=== PATIENT | female | born 1960 | race Caucasian/White ===

== ENCOUNTER 2018-03-11 09:32 | Outpatient (REF) | payer OTHER, SELFPAY ==
[2018-03-11 19:38] LABS: HCT 39.4 % (36.0-46.0); Mean Corpuscular Hemoglobin 29.5 pg (27.0-33.0); Mean Corpuscular Volume 89.3 fL (80-95); Mean Platelet Volume 11.4 fL (8.0-11.0); Platelet Count 251 x1000/uL (130-400); RBC 4.41 m/cumm (4.00-5.20); RBC Distribution Width 12.6 % (11.7-14.6); White Blood Cell Count 6.99 k/cumm (4.4-10.8)
[2018-03-11 19:42] LABS: Amylase 105 U/L (25-115); Anion Gap 6.1 mmol/L (3-11); BUN 16 mg/dL (7-18); CO2 29.9 mmol/L (21.0-32.0); CREATININE 1.17 mg/dL (0.55-1.02); Calcium 9.1 mg/dL (8.5-10.1); Chloride 104 mmol/L (98-107); Estimated GFR 47.18 (mL/min/1.73m2); Glucose 84 mg/dL (70-100); Lipase 329 U/L (73-393); Potassium 4.4 mmol/L (3.5-5.1); Sodium 140 mmol/L (136-145)
== END 2018-03-11 09:52 ==
LOC: NCHCN 09:32
PROVIDERS: PCP Internal Medicine; Visit Provider Nurse Practitioner Family
DX: R10.84 Generalized abdominal pain (principal)
CPT/HCPCS: 80048; 83690; 85027; 82150

== ENCOUNTER 2018-03-12 08:48 | Outpatient (REF) | payer OTHER, SELFPAY ==
[2018-03-14 13:39] LABS: Helicobacter pylori Ag, Feces Negative (NEGAT)
== END 2018-03-12 09:08 ==
LOC: NCHCN 08:48
PROVIDERS: PCP Internal Medicine; Visit Provider Nurse Practitioner Family
DX: R10.84 Generalized abdominal pain (principal)
CPT/HCPCS: 87338

== ENCOUNTER 2019-02-19 18:15 | Outpatient (REF) | payer OTHER, SELFPAY ==
[2019-02-19 20:47] LABS: Anion Gap 8.5 mmol/L (3-11); BUN 19 mg/dL (7-18); CO2 27.5 mmol/L (21.0-32.0); CREATININE 1.22 mg/dL (0.55-1.02); Calcium 9.5 mg/dL (8.5-10.1); Chloride 104 mmol/L (98-107); Estimated GFR 44.96 (mL/min/1.73m2); Glucose 100 mg/dL (70-100); Potassium 4.4 mmol/L (3.5-5.1); Sodium 140 mmol/L (136-145); TSH 1.98 uIU/mL (0.36-3.74)
== END 2019-02-19 18:35 ==
LOC: NCHCN 18:15
PROVIDERS: PCP Internal Medicine; Visit Provider Internal Medicine
DX: Z00.00 Encounter for general adult medical examination without abnormal findings (principal); Z13.228 Encounter for screening for other metabolic disorders; Z13.29 Encounter for screening for other suspected endocrine disorder
CPT/HCPCS: 80048; 84443

== ENCOUNTER 2020-02-24 16:12 | Outpatient (REF) | payer OTHER, SELFPAY ==
[2020-02-24 19:28] LABS: HCT 41.8 % (36.0-46.0); HGB 13.9 g/dL (11.2-15.7); MCH 29.4 pg (27.0-33.0); MCHC 33.3 % (32.0-36.0); MCV 88.4 fL (80-95); MPV 11.2 fL (8.0-11.0); Platelet Count 234 10^3/uL (130-400); RBC 4.73 10^6/uL (3.93-5.22); RDW 11.8 % (11.7-14.6); RDW-SD 37.9 fL; WBC 4.65 10^3/uL (4.4-10.8)
[2020-02-24 19:49] LABS: CREATININE 1.01 mg/dL (0.55-1.02); Calculated LDL 146 mg/dL (<100); Cholesterol 244 mg/dL (<200); Estimated GFR 55.72 (mL/min/1.73m2); Glucose 91 mg/dL (74-106); HDL Cholesterol 84 mg/dL (40-60); TSH 1.79 uIU/mL (0.36-3.74); Triglyceride 74 mg/dL (<150)
[2020-02-24 20:19] LABS: FREE T4 1.01 ng/dL (0.76-1.46)
== END 2020-02-24 16:32 ==
LOC: NCHCN 16:12
PROVIDERS: PCP Internal Medicine; Visit Provider Internal Medicine
DX: Z00.00 Encounter for general adult medical examination without abnormal findings (principal); M31.1 Thrombotic microangiopathy; E05.00 Thyrotoxicosis with diffuse goiter without thyrotoxic crisis or storm
CPT/HCPCS: 80061; 82947; 85027; 82565; 84439; 84443

== ENCOUNTER 2021-02-09 16:50 | Outpatient (REF) | payer OTHER, SELFPAY ==
[2021-02-09 20:20] LABS: HCT 41.3 % (36.0-46.0); HGB 13.1 g/dL (11.2-15.7); MCH 28.9 pg (27.0-33.0); MCHC 31.7 % (32.0-36.0); MPV 11.1 fL (8.0-11.0); Platelet Count 231 10^3/uL (130-400); RBC 4.54 10^6/uL (3.93-5.22); RDW 11.8 % (11.7-14.6); RDW-SD 39.6 fL; WBC 6.58 10^3/uL (4.4-10.8)
[2021-02-09 20:41] LABS: Anion Gap 7.6 mmol/L (3-11); BUN 15 mg/dL (7-18); CO2 32.4 mmol/L (21.0-32.0); CREATININE 1.1 mg/dL (0.55-1.02); Calcium 9.8 mg/dL (8.5-10.1); Chloride 103 mmol/L (98-107); Estimated GFR 50.33 (mL/min/1.73m2); Glucose 106 mg/dL (74-106); Potassium 4.6 mmol/L (3.5-5.1); Sodium 143 mmol/L (136-145); TSH 1.37 uIU/mL (0.36-3.74)
[2021-02-11 11:30] LABS: Lyme Ab w Rflx to Lyme Confirm Negative (Negative)
== END 2021-02-09 16:51 | disposition home or self-care (01) ==
LOC: NCHCN 16:50
PROVIDERS: PCP Internal Medicine; Visit Provider Internal Medicine
DX: Z01.818 Encounter for other preprocedural examination (principal); R00.1 Bradycardia, unspecified; G56.21 Lesion of ulnar nerve, right upper limb
CPT/HCPCS: 80048; 85027; 84443; 86618

== ENCOUNTER 2021-10-12 08:02 | Outpatient (REF) | payer BC, SELFPAY ==
--- NOTE | 2021-10-12 17:00 | SKI_PTH ---
PATIENT: Anum Henriquez LOC: [facility]#:[id number] AGE/SX: 61/F ROOM: RE10/12/[address]: Kemal Vee : 1960 BED: DIS: 10/12/2021 SPEC #: [id number] RECD: 10/13/21 11:23 STATUS: QIAN REQ #: [id number] EITAN: 10/12/21 17:[address]: Kemal Vee DEPT: Surgical Specimen RECD BY: Tonny Prado Tissues: 1 - SKIN BIOPSY(SHAVE/PUNCH) Procedures: GROSS AND MICRO LEVEL 3 Comments: [id number]
--- OUTSIDE RECORDS SUMMARY | 2021-10-13 10:33 | XMS_ITS ---
:1960 Author Care Team Providers Name Role Phone REBECCA DAVIES MD Primary Care Provider [phone] BAKARI MONAE PA-C Orthopedic Surgeon [phone] Allergies Code Code System Name Reaction Severity Status Onset 3640 RxNorm Doxycycline ? ? Active ? 4053 RxNorm Erythromycin Base ? ? Active ? Medications Name Status Start Date Stop Date ? ? aluminum-mag hydroxide-simethicone 200 mg-200 mg-20 mg/5 mL oral susp Completed 01/05/2013 07/29/2013 10 Suspension: three times daily as needed amoxicillin 875 mg tablet Completed 03/07/20112010 1 Tablet: bid - twice daily amoxicillin 875 mg-potassium clavulanate 125 mg tablet Completed 08/13/2012 08/23/2012 1 Tablet: bid - twice daily aspirin 81 mg tablet,delayed release Completed 08/13/2012 12/30/2012 2 (two) Tablet DR: bid - twice daily calcium carbonate 200 mg calcium (500 mg) chewable tablet Concepcion lawanda 01/24/2013 01/24/2013 1-2 Tablet Chewable: every four hours as needed Carafate 100 mg/mL oral suspension Completed 01/24/2013 01/24/2013 1 Suspension: take 10 mls four times daily Citracal + D Maximum Active ? Not availab le clobetasol-emollient 0.05 % topical cream Completed 201104/29/2012 1 Cream: As directed Coumadin 10 mg tablet Completed 01/20/2013 07/29/2013 1 Tablet: as directed, currently three times a week Coumadin 5 mg tablet Completed 02/13/2013 02/13/2013 1 Tablet: daily as directed, see flow sheet Coumadin 7.5 mg tablet Completed 01/31/2013 4 1 Tablet: as directed Cubicin 500 mg intravenous solution Completed 01/24/2013 01/24/2013 1 For Solution: every 48 hours until 01/14/13 Fish Oil Active ? Not available Glucosamine Active ? Not available lisinopril 2.5 mg tablet Completed 01/24/2013 013 1 Tablet: daily lorazepam 0.5 mg tablet Completed 04/07/2013 04/07/20 13 1 Tablet: every six hours as needed Lotrisone 1 %-0.05 % topical cream Completed 05/31/2006 04/16/2009 1 (one) Cream: Twice daily methimazole 5 mg tablet Completed 01/18/2012 12/31/19 13 1 (one) Tablet: qd - daily omeprazole 40 mg capsule,delayed release Completed 013 07/29/[address]: daily ondansetron 8 mg disintegrating Completed 01/14/2013 01/14/2013 tablet ondansetron HCl 8 mg tablet Completed 02/13/201310/2012 1 Tablet: three times daily before each meal oxycodone-acetaminophen 5 mg-325 mg tablet Completed 11/0501/01/2012 1 Tablet: every 3-4 hours as needed Pepcid 20 mg tablet Completed 01/10/2013 01/10/2013 1 Tablet: twice daily as needed for upset stomach prochlorperazine 25 mg rectal suppository Completed 201202/13/2013 Suppository: every six hours as needed for nausea Prometrium 200 mg capsule Completed 09/08/20042005 1 Cap: QD sulfacetamide sodium 10 % eye drops Completed 04/22/2010 04/29/2010 1-2 Drop(s): every 3 hours while awake zolpidem Active ? Not available Problems Name Status Onset Date Source ? Mixed Hyperlipidemia Active ? History Adjustment Disorder with Depressed Mood Active ? History Insomnia Active ? History Tinnitus Active ? History Cardiomyopathy Active ? History Conduction Disorder of the Heart Active ? History Thrombotic Microangiopathy Active ? Histo ry Hemorrhoids Active ? History Chronic Kidney Disease Active ? History Shoulder Joint Pain Active ? History Low Back Pain Active ? History Palpitations Active ? History Chest Pain Active ? History Motion Sickness Active ? History Family History of Arthritis Active ? 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 History Procedures Date Name Performed by ? 05/14/2019 XR, Finger(s), 2 or More View [facility] Radiology (Internal) [address] [place] [address] (Work Place) Results Lab Results None recorded. Past Encounters None recorded. Social History Tobacco Smoking Status Never Smoker Vaccine List Vaccine Type COVID-19, mRNA, LNP-S, PF, 100 mcg/0.5 m L dose (Moderna) 06/08/2020?0.5 mL 07/05/2020?100 mcg Hep B, adult 03/10/2009 04/12/2009 09/07/2009 influenza, seasonal, injectable 03/14/2010?0.5 mL 02/20/2011 03/11/2012 03/13/2013 03/09/2014 rubella Td (adult), adsorbed 06/11/1996 Tdap 03/10/2009 Plan of Care Reminders Provider Appointments None ? ? recorded. Lab None ? ? recorded. Referral None ? ? recorded. Procedures None ? ? recorded. Surgeries None ? ? recorded. Imaging None ? ? recorded. Vitals 12/22/2019 03:45PM Follow Up 15 Height Weight BMI 170.18 cm 05/14/2019 08:45AM Follow Up 15 Height Weight BMI Blood Pressure 170.18 cm 04/16/2019 08:45AM Post Op 15 Height Weight BMI Blood Pressure 170.18 cm 03/14/2019 11:15AM Consult 15 Height Weight BMI Blood Pressure 170.18 cm 64.82 kg 22.4 kg/m2 136/68 mm[Hg] 08/20/2014 Height Weight Blood Pressure 170.18 cm 67.81 kg (1) 112/70 mm[Hg] (2) 108/74 mm[Hg] (3) 104/64 mm[Hg] (4) 114/72 mm[Hg] 06/25/2014 Height Weight Blood Pressure 170.18 cm 66 kg (1) 98/64 mm[Hg] (2) 108/72 mm[Hg] 03/16/2014 Height Weight Blood Pressure 171.45 cm 64.95 kg 109/67 mm[Hg] 11/28/2013 Height Weight Blood Pressure 170.82 cm 65.77 kg (1) 118/72 mm[Hg] (2) 110/66 mm[Hg] 07/29/2013 Height Weight Blood Pressure 170.18 cm 65.06 kg 104/60 mm[Hg] 04/07/2013 Height Weight Blood Pressure 170.18 cm 62.26 kg 112/68 mm[Hg] 03/10/2013 Height Weight Blood Pressure 170.18 cm 59.87 kg 120/72 mm[Hg] 02/13/2013 Height Weight Blood Pressure 170.18 cm 56.81 kg 120/74 mm[Hg] 01/24/2013 Height Weight Blood Pressure 172.72 cm 55.79 kg 110/68 mm[Hg] 01/10/2013 Height Weight Blood Pressure 172.72 cm 55.45 kg 104/60 mm[Hg] 12/10/2012 Weight Blood Pressure 59.42 kg 108/70 mm[Hg] 10/03/2012 Weight Blood Pressure 59.19 kg (1) 98/70 mm[Hg] (2) 100/70 mm[Hg] 08/13/2012 Weight Blood Pressure 60.33 kg 118/72 mm[Hg] 04/29/2012 Height Weight Blood Pressure 172.72 cm 63.5 kg 110/60 mm[Hg] 01/16/2012 Height Weight Blood Pressure 170.18 cm 65.32 kg 128/47 mm[Hg] 11/28/2011 Height Weight Blood Pressure 170.18 cm 65.32 kg 106/72 mm[Hg] 11/14/2011 Height Weight Blood Pressure 170.18 cm 66.68 kg 118/82 mm[Hg] 11/07/2011 Height Weight Blood Pressure 170.18 cm 66.68 kg 128/82 mm[Hg] 11/01/2011 Height Weight Blood Pressure 173.99 cm 66.68 kg 121/74 mm[Hg] 04/27/2011 Height Weight Blood Pressure 170.18 cm 63.5 kg 110/60 mm[Hg] 12/09/2010 Height Weight Blood Pressure 170.18 cm 62.6 kg 110/60 mm[Hg] 04/22/2010 Height Weight Blood Pressure 170.18 cm 66.68 kg 126/66 mm[Hg] 11/22/2009 Blood Pressure 108/60 mm[Hg] 04/16/2009 Weight Blood Pressure 61.69 kg 90/50 mm[Hg] 04/23/2008 Height Weight 170.18 cm 62.14 kg 02/13/2007 Weight Blood Pressure 60.33 kg 100/60 mm[Hg] 01/18/2006 Weight 62.14 kg 11/10/2005 Height Weight Blood Pressure 170.18 cm 62.6 kg 110/68 mm[Hg] 07/26/2004 Height Weight Blood Pressure 170.18 cm 61.01 kg 96/72 mm[Hg]
== END 2021-10-12 08:03 | disposition home or self-care (01) ==
LOC: NCHCN 08:02
PROVIDERS: PCP Internal Medicine; Visit Provider Internal Medicine
DX: C44.529 Squamous cell carcinoma of skin of other part of trunk (principal)
CPT/HCPCS: 88304; 88305

== ENCOUNTER 2022-03-13 16:41 | Outpatient (REF) | payer BC, SELFPAY ==
--- NOTE | 2022-03-13 15:15 | PAPFT_PTH ---
PATIENT: Anum Henriquez LOC: [facility]#:[id number] AGE/SX: 62/F ROOM: RE03/13/[address]: Kemal Vee : 1960 BED: DIS: 03/13/2022 SPEC #: [id number] RECD: 03/13/22 18:36 STATUS: QIAN REQ #: [id number] EITAN: 03/13/22 15:[address]: Kemal Vee DEPT: [facility] Cytology RECD BY: Jennifer Santiago Tissues: 1 - CX/ENDOCX FOR PAP SMEARS Procedures: PAP THIN PREP/UVM Screening HPV DNA PROBE Comments: [id number]
[2022-03-13 19:44] LABS: Abs Immature Grans 0.01 10^3/uL (0.0-0.06); Absolute Basophil Count 0.05 10^3/uL (0.0-0.2); Absolute Eosinophil Count 0.19 10^3/uL (0.0-0.7); Absolute Monocyte Count 0.53 10^3/uL (0.1-0.8); Absolute Neutrophil Count 3.92 10^3/uL (1.2-6.7); Basophils % 0.7; Eosinophils % 2.8; HCT 39.2 % (36.0-46.0); HGB 12.8 g/dL (11.2-15.7); Immature Grans % 0.1; Lymphocytes % 31.9; MCH 29.4 pg (27.0-33.0); MCHC 32.7 % (32.0-36.0); MCV 90 fL (80-95); Monocytes % 7.7; Neutrophils % 56.8; Platelet Count 234 10^3/uL (130-400); RBC 4.36 10^6/uL (3.93-5.22); RDW 12.3 % (11.7-14.6); RDW-SD 41.1 fL
[2022-03-13 19:55] LABS: Anion Gap 6.7 mmol/L (3-11); BUN 18 mg/dL (7-18); CO2 30.3 mmol/L (21.0-32.0); Calculated LDL 108 mg/dL (<100); Chloride 102 mmol/L (98-107); Cholesterol 213 mg/dL (<200); Estimated GFR 62.91 (mL/min/1.73m2); Glucose 91 mg/dL (74-106); HDL Cholesterol 81 mg/dL (40-60); Potassium 3.9 mmol/L (3.5-5.1); Sodium 139 mmol/L (136-145); Triglyceride 124 mg/dL (<150)
== END 2022-03-13 16:42 | disposition home or self-care (01) ==
LOC: NCHCN 16:41
PROVIDERS: PCP Internal Medicine; Visit Provider Internal Medicine
DX: Z00.00 Encounter for general adult medical examination without abnormal findings (principal); E05.00 Thyrotoxicosis with diffuse goiter without thyrotoxic crisis or storm; Z12.4 Encounter for screening for malignant neoplasm of cervix; Z01.419 Encounter for gynecological examination (general) (routine) without abnormal findings; Z11.51 Encounter for screening for human papillomavirus (HPV)
CPT/HCPCS: 80048; 80061; 88142; 85025; 87624

== ENCOUNTER 2022-11-23 15:52 | Outpatient (REF) | payer BC, SELFPAY ==
--- OUTSIDE RECORDS SUMMARY | 2022-11-23 15:54 | XMS_ITS | Continuity of Care Document ---
Author Name Unknown Organization [facility] Address [address] [place] [address] Care Team Providers Care Cleat Thrower Name Role Phone Kemal Chino Primary Care Physician Encounter [facility] Date(s): 07/25/22 - 07/25/[address] [address] Discharge Disposition: Home or Self Care Attending Physician: Kemal Chino MD Admitting Physician: Kemal Chino MD Allergies, Adverse Reactions, Alerts Substance Reaction Severity Status doxycycline Unknown Active erythromycin Unknown Active Immunizations Given and Recorded Vaccine Date Status Refusal Reason SARS-CoV-2 (COVID-19) mRNA-1273 vaccine 07/05/20 R ecorded SARS-CoV-2 (COVID-19) mRNA-1273 vaccine 06/08/20 R ecorded influenza virus vaccine, inactivated 03/09/14 Carlos rded influenza virus vaccine, inactivated 03/13/13 Carlos rded influenza virus vaccine, inactivated 03/11/12 Carlos rded influenza virus vaccine, inactivated 02/20/11 Carlos rded influenza virus vaccine, inactivated 03/14/10 Carlos rded hepatitis B adult vaccine 09/07/09 Recorded hepatitis B adult vaccine 04/12/09 Recorded hepatitis B adult vaccine 03/10/09 Recorded tetanus/diphth/pertuss (Tdap) adult/adol 03/10/09 Recorded tetanus-diphth toxoids (Td) adult/adol 06/11/96 Re corded rubella virus vaccine 06/11/00 Recorded Social History Social History Type Response Sex Female Patient Care team information Care Team Personnel Name: Kemal Chino MD Position: No Access Member Role: Primary Care Physician Address: Address: [address] [address]- Care Team Related Persons Name: JENNA SERNA Address: Home
[2022-11-23 19:52] LABS: Abs Immature Grans 0.02 10^3/uL (0.0-0.06); Absolute Eosinophil Count 0.06 10^3/uL (0.0-0.7); Absolute Lymphocyte Count 0.54 10^3/uL (1.2-3.4); Absolute Monocyte Count 0.41 10^3/uL (0.1-0.8); Basophils % 0.3; Eosinophils % 0.5; HCT 41.2 % (36.0-46.0); HGB 13.6 g/dL (11.2-15.7); Immature Grans % 0.2; Lymphocytes % 4.6; MCH 29.6 pg (27.0-33.0); MCV 90 fL (80-95); Monocytes % 3.5; Neutrophils % 90.9; RDW 12.6 % (11.7-14.6); RDW-SD 41.7 fL; WBC 11.75 10^3/uL (4.4-10.8)
[2022-11-23 20:58] LABS: ALT 37 U/L (14-59); AST 32 U/L (15-37); Albumin 4.2 g/dL (3.4-5.0); Alkaline Phosphatase 80 U/L (46-116); Anion Gap 8.2 mmol/L (3-11); BUN 16 mg/dL (7-18); Bilirubin, Total 0.6 mg/dL (0.2-1.0); CO2 27.8 mmol/L (21.0-32.0); CREATININE 1.1 mg/dL (0.55-1.02); Calcium 9.7 mg/dL (8.5-10.1); Chloride 102 mmol/L (98-107); Estimated GFR 56.11 (mL/min/1.73m2); Glucose 128 mg/dL (74-106); Potassium 4.8 mmol/L (3.5-5.1); Sodium 138 mmol/L (136-145); Total Protein 8.4 g/dL (6.4-8.2)
[2022-11-23 21:24] LABS: Absolute Basophil Count 0.04 10^3/uL (0.0-0.2); Absolute Neutrophil Count 10.68 10^3/uL (1.2-6.7)
[2022-11-23 21:29] LABS: C Diff PCR Negative (Negative)
[2022-11-25 14:22] LABS: Campylobacter PCR Negative (Negative); Salmonella PCR Negative (Negative); Shiga Toxin PCR Negative (Negative); Shigella/Enteroinvasive Ecoli Negative (Negative)
== END 2022-11-23 15:53 | disposition home or self-care (01) ==
LOC: NCHCN 15:52
PROVIDERS: PCP Internal Medicine; Visit Provider Internal Medicine
DX: K52.9 Noninfective gastroenteritis and colitis, unspecified (principal); M31.10 Thrombotic microangiopathy, unspecified
CPT/HCPCS: 80053; 87493; 87505; 85025

== ENCOUNTER 2023-03-14 14:21 | Outpatient (REF) | payer MEDICARE, SELFPAY ==
--- OUTSIDE RECORDS SUMMARY | 2023-03-14 14:22 | XMS_ITS | Continuity of Care Document ---
Author Name Unknown Organization [facility] Address [address] [place] [address] Care Team Providers Care Tattoo And Body Artist Name Role Phone Kemal Chino Primary Care Physician Encounter [facility] Date(s): 11/27/22 - 11/27/[address] [address] Discharge Disposition: Home or Self Care Attending Physician: Kemal Chino MD Admitting Physician: Kemal Chino MD Referring Physician: Kemal Chino MD Allergies, Adverse Reactions, [...] Re corded rubella virus vaccine 06/11/00 Recorded Results Laboratory List Name Date CBC w/ Diff 11/27/22 Automated Diff 11/27/22 Most recent to oldest [Reference Range]: 1 WBC [5.0-10.0 x10^3/mcL] 6.2 x10^3/mcL (11/27/22 5:51 PM) RBC [4.1-5.3 x10^6/mcL] 4.5 x10^6/mcL (11/27/22 5:51 PM) Neutro Auto [40.0-75.0 %] 56.8 % (11/27/22 5:51 PM) Lymph Auto [20.0-50.0 %] 31.9 % (11/27/22 5:51 PM) Jones Auto [2.0-15.0 %] 7.4 % (11/27/22 5:51 PM) Basophil Auto [0.0-1.0 %] 1.0 % (11/27/22 5:51 PM) MCV [80.0-96.0 fL] 90.0 fL (11/27/22 5:51 PM) MCHC [31.0-35.0 g/dL] 32.7 g/dL (11/27/22 5:51 PM) Hct [37.0-47.0 %] 40.4 % (11/27/22 5:51 PM) MCH [26.0-32.0 pg] 29.4 pg (11/27/22 5:51 PM) Neutro Absolute 3.5 x10^3/mcL *NA* (11/27/22 5:51 PM) Hgb [12.0-16.0 g/dL] 13.2 g/dL (11/27/22 5:51 PM) Platelets [130-450 x10^3/mcL] 242 x10^3/ mcL (11/27/22 5:51 PM) RDW-CV [11.5-14.5 %] 12.3 % (11/27/22 5:51 PM) Eos, Auto [1.0-6.0 %] 2.9 % (11/27/22 5:51 PM) Social History Social History Type Response Sex Female Patient Care team information Care Team Personnel Name: Nanda OSBORN, Kemal Diaz MD Position: No Access Member Role: Informed Provider Address: Address: [address] [place] [address]- Care Team Related Persons Name: KAREEMJENNA YOUSSEF Address: Home [address] [place] [address] [place], [id number] Name: SUNNY BOYCE
--- OUTSIDE RECORDS SUMMARY | 2023-03-14 14:22 | XMS_ITS | Continuity of Care Document ---
Author Name Unknown Organization [facility] Address [address] [place] [address] Care Team Providers Care Mat Inspector Name Role Phone REBECCA DAVIES Primary Care Physician [phone] Encounter [facility] NBR [id number] Date(s): 02/15/23 - 02/15/23 [facility] [address] [place] [address] [place] Encounter Diagnosis Bilateral sensorineural hearing loss(Discharge Diagnosis) - 02/15/23 Sensorineural hearing loss, bilateral(Final) - Discharge Disposition: Home or Self Care Attending Physician: Anthony Wiggins Assessment and Plan Future Appointments Problem List Condition Confirmation Course Effective Dates Status H ealth Status Informant Bilateral sensorineural hearing loss Confirmed Active Physician Outpatient Note * Anthony Wiggins: PERFORM Event Display: Office Clinic Note Physician Authored Date: [id number] KAYCEE SERNA :1960 Age:62 years Sex:Female Visit Date:02/15/2023 Primary Care Physician: REBECCA DAVIES History of Present Illness Patient arrived to today's appointment with??[id number].?? Patient seen for hearing evaluation. ??Patient has history of normal sloping to moderately severe sensorineural hearing loss bilaterally.??Patient is aided bilaterally. ??Patient reports concerns with hearing aids bilaterally. ??Patientnotes decreased battery life bilaterally.?? Patient thinks hearing is changed. ??Patient denies any sudden change in hearing??notes decreased has been gradual. ??Patient reports increased difficulty hearing coworkers.?? Patient denies any aural pressure or otalgia.?? Patient denies any tinnitus??orhistory of vertigo.?? Patient denies any recent??ear infections or of noise exposure Physical Exam Otoscopy revealed clear canals with tympanic membranes visualized bilaterally. ?? Hearing aid batteries reports 65% capacity in the right ear and 75% capacity in the left ear.?? Updated hearing aid software. Procedure Pure-tone testing reveals normal sloping to moderately severe sensorineural hearing loss bilaterally.?? Speech hr receptionist thresholds were found at 20 dB HL in the right ear and 15 dB HL in the left ear. ??Speech discrimination scores were excellent bilaterally at 100% in the right ear and 96% in theleft ear to presentation level of 75 dB HL in the ipsilateral ear with 35 dB masking the contralateral ear.?? Today's results are stable with most recent audiogram from 07/22/2020. Assessment/Plan 1.??Bilateral sensorineural hearing loss??H90.3 Today's results reveal stable sensorineural hearing loss compared to previous evaluation from 07/22/2021. ??Increased overall gain to match patient preference. ??Initially had a gain in soft high-frequency sounds. ??Should patient continue to struggle with audibility recommend possible Real Ear verification appointment. ??Recommend annual hearing evaluation, or sooner should patient notice any change in??hearing, aural pressure, otalgia, tinnitus, or vertigo.?? Department to notify patient when new rechargeable batteries arrive??so that rechargeable batteries can be replaced in warrantee.?? Norechargeable batteries for patient's hearing aid model in stock??not able to do this??today. Problem List/Past Medical History Ongoing Bilateral sensorineural hearing loss Historical No qualifying data Medications No active medications Allergies No active allergies Electronically Signed on 02/15/23 10:33 AM Anthony Wiggins Patient Care team information Care Team Personnel Name: REBECCA DAVIES Position: No Access Member Role: Primary Care Physician Address: Address: [address] [place] [address]
--- OUTSIDE RECORDS SUMMARY | 2023-03-14 14:22 | XMS_ITS | Continuity of Care Document ---
Author Name Unknown Organization [facility] Address [address] [place] [address] Care Team Providers Care Pharmacy Graduate Intern Name Role Phone REBECCA DAVIES Primary Care Physician [phone] Encounter [facility] [facility] NBR [id number] Date(s): 02/15/23 - 02/15/23 [facility] [address] [place] [address]- [place] Discharge Disposition: Home Assessment and Plan Future Appointments Problem List Condition Confirmation Course Effective Dates Status H ealth Status Informant Bilateral sensorineural hearing loss Confirmed Active Patient Care team information Care Team Personnel Name: REBECCA DAVIES Position: No Access Member Role: Primary Care Physician Address: Address: [address] [place] [address]
--- OUTSIDE RECORDS SUMMARY | 2023-03-14 14:22 | XMS_ITS | Continuity of Care Document ---
Author Name Unknown Organization [facility] Address [address] [place] [address] Care Team Providers Care Manager Motor Name Role Phone Primeau Kemal CASANOVA Primary Care Physician Encounter [facility] Date(s): 02/06/23 - 02/06/[address] [address] Discharge Disposition: Home or Self Care Attending Physician: Dany Goldberg MD Admitting Physician: Dany Goldberg MD Referring Physician: Dany Goldberg MD Allergies, Adverse Reactions, Alerts Substance Reaction Severity Status doxycycline Unknown Active erythromycin Unknown Active Assessment and Plan Future Appointments Immunizations Given and Recorded Vaccine Date Status [...] adult/adol 06/11/96 Re corded rubella virus vaccine 1/1/01 Recorded Medications Fish Oil 500 mg oral capsule 0 Refill(s) Start Date: 12/27/22 Status: Ordered glucosamine 0 Refill(s) Start Date: 12/27/22 Status: Ordered omeprazole 40 mg oral delayed release capsule 0 Refill(s) Start Date: 12/27/22 Status: Ordered Vitamin C 1000 mg oral tablet 1,000 mg = 1 tab, Oral, Daily, # 30 tab, 0 Refill(s) Start Date: 01/02/23 Status: Ordered Vitamin D3 5000 intl units oral capsule 125 mcg = 1 cap, Oral, Daily, with food, # 100 cap, 0 Refill(s) Start Date: 01/02/23 Status: Ordered zinc citrate 50 mg oral capsule Daily, 0 Refill(s) Start Date: 01/02/23 Status: Ordered zolpidem 10 mg oral tablet 0 Refill(s) Start Date: 12/27/22 Status: Ordered Problem List Condition Confirmation Course Effective Dates Status H ealth Status Informant Adjustment disorder with depressed mood Confirmed Active Cardiomyopathy Confirmed Active Chest pain Confirmed Active Chronic kidney disease Confirmed Active Conduction disorder of the heart Confirmed Active Deep venous thrombosis 1 Confirmed 01/08/13 Active FH: Arthritis Confirmed Active Heart disease 2 Confirmed 01/08/13 Active Hemorrhagic colitis 3 Confirmed 12/13/12 Active Hemorrhoids Confirmed Active History of Graves' disease 4 Confirmed 01/14/13 Active History of immune thrombocytopenia Confirmed 01/14/13 Active History of methicillin resistant Staphylococcus aureus infection 5 Confirmed 01/14/13 Active Insomnia Confirmed Active Low back pain Confirmed Active Mixed hyperlipidemia Confirmed Active Motion sickness Confirmed Active Palpitations Confirmed Active Shoulder joint pain Confirmed Active 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 Plans for full anticoagulation for 3-6 mos given hypercoagulability of underlying disease. 2Outside Source Comment: Overview: December 2012 - readmitted after TTP/HUS for CHF picture. EF = 40% with global hypokinesis. 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 3Outside Source Comment: Overview: CT shows sparing of the sigmoid and rectum 4Outside Source Comment: Overview: Previously on methimazole, now in remission 5Outside Source Comment: Overview: Line infection 12/2012, s/p vanc/dapto x 3 weeks Procedures Procedure Date Related Diagnosis Body Site Status Colonoscopy 2012 Completed Results Orders for Microbiology Reports Name Date MRSA Screen Culture 02/06/23 Microbiology Reports TEST:MRSA Screen Culture STATUS:Order in Progress BODY SITE: SOURCE:Nares COLLECTED DATE/TIME:02/06/23 1:21 PM PRELIMINARY REPORT Negative MRSA screen Social History Social History Type Response Tobacco Never tobacco user T obacco Use:. Sex Female Patient Care team information Care Team Personnel Name: [facility] Position: No Access Member Role: Informed Provider Address: Address: [address] Care Team Related Persons Name: JENNA SERNA Address: Home [address] [facility] [id number] Name: SUNNY BOYCE
--- OUTSIDE RECORDS SUMMARY | 2023-03-14 14:22 | XMS_ITS | Continuity of Care Document ---
Author Name Unknown Organization [facility] Address [address] [place] [address] Care Team Providers Care Blankmaker Name Role Phone [facility] Primary [facility] Physician Encounter [facility]CT[facility]_[place] Date(s): 02/13/23 - 02/13/[address] [address] Encounter Diagnosis Encounter for screening for malignant neoplasm of colon(Final) - Diarrhea, unspecified(Final) - Personal history of diseases of the blood and blood-forming organs and certain disorders involving the immune mechanism(Final) - Discharge Disposition: Home or Self Care Attending Physician: Dany Goldberg MD Admitting Physician: Dany Goldberg MD Referring Physician: Dany Goldberg MD Allergies, Adverse Reactions, Alerts Substance Reaction Severity Status doxycycline Unknown Active erythromycin Unknown Active Assessment and Plan Diagnostic Tests Pending * Surgical Pathology [facility] 02/13/23 Functional Status 02/13/23 ADLs Independent Family Member Travel History No recent t ravel Recent Travel History No recent travel Other exposure to Infectious Disease Non e 02/06/23 Living Situation Home independently Immunizations Given and Recorded Vaccine Date Status [...] Re corded rubella virus vaccine 06/11/00 Recorded Medications Fish Oil 500 mg oral [...] Procedure Date Related Diagnosis Body Site Status EGD - Esophagogastroduodenoscopy 12/08/12 Completed Colonoscopy 2012 Completed Arthroplasty of joint of the thumb 1 Completed 1Left in 2018, Right in 2020 Vital Signs Most recent to oldest [Reference Range]: 1 2 3 Temperature Temporal Artery [36-38 Deg C] 36.3 Deg C (02/13/23 10:55 AM) Peripheral Pulse Rate [60-100 bpm] 47 bpm *LOW* (02/13/23 2:00 PM) 53 bpm *LOW* (02/13/23 1:45 PM) 53 bpm *LOW* (02/13/23 1:42 PM) Heart Rate Monitored [60-100 bpm] 53 bpm *LOW* (02/13/23 2:00 PM) 57 bpm *LOW* (02/13/23 1:45 PM) 57 bpm *LOW* (02/13/23 1:42 PM) Respiratory Rate [12-24 br/min] 13 br/min (02/13/23 2:00 PM) 13 br/min (02/13/23 1:45 PM) 13 br/min (02/13/23 1:42 PM) Blood Pressure [90-140/60-90 mmHg] 122/67mmHg (02/13/23 2:00 PM) 119/76mmHg (02/13/23 1:45 PM) 119/76mmHg (02/13/23 1:42 PM) Mean Arterial Pressure, Cuff [65-140 mmHg] 85 mmHg (02/13/23 2:00 PM) 90 mmHg (02/13/23 1:45 PM) 90 mmHg (02/13/23 1:42 PM) Mean Arterial Pressure Cuff 90 mmHg (02/13/23 10:55 AM) Blood Pressure Location Left arm (02/13/23 10:55 AM) Weight 63.5 kg (02/13/23 10:55 AM) Height 168 cm (02/13/23 10:55 AM) Social History Social History Type Response Tobacco Never tobacco user T obacco Use:. Sex Female Hospital Discharge Instructions Patient Education 02/13/2023 12:58:34 Colon Polyps Colon Polyps Colon polyps are tissue growths inside the colon, which is part of the large intestine. They are one of the types of polyps that can grow in the body. A polyp may be a round bump or a mushroom-shapedgrowth. You could have one polyp or more than one. Most colon polyps are noncancerous (benign). However, some colon polyps can become cancerous over time. Finding and removing the polyps early can help prevent this. What are the causes? The exact cause of colon polyps is not known. What increases the risk? The following factors may make you more likely to develop this condition: ??? Having a family history of colorectal cancer or colon polyps. ??? Being older than 45 years of age. ??? Being younger than 45 years of age and having a significant family history of colorectal canceror colon polyps or a genetic condition that puts you at higher risk of getting colon polyps. ??? Having inflammatory bowel disease, such as ulcerative colitis or Crohn's disease. ??? Having certain conditions passed from parent to child (hereditary conditions), such as: ??? Familial adenomatous polyposis (FAP). ??? Britton syndrome. ??? Turcot syndrome. ??? Peutz???Jeghers syndrome. ??? MUTYH-associated polyposis (MAP). ??? Being overweight. ??? Certain lifestyle factors. These include smoking cigarettes, drinking too much alcohol, not getting enough exercise, and eating a diet that is high in fat and red meat and low in fiber. ??? Having had childhood cancer that was treated with radiation of the abdomen. What are the signs or symptoms? Many times, there are no symptoms. If you have symptoms, they may include: ??? Blood coming from the rectum during a bowel movement. ??? Blood in the stool (feces). The blood may be bright red or very dark in color. ??? Pain in the abdomen. ??? A change in bowel habits, such as constipation or diarrhea. How is this diagnosed? This condition is diagnosed with a colonoscopy. This is a procedure in which a lighted, flexible scope is inserted into the opening between the buttocks (anus) and then passed into the colon to examine the area. Polyps are sometimes found when a colonoscopy is done as part of routine cancer screening tests. How is this treated? This condition is treated by removing any polyps that are found. Most polyps can be removed during a colonoscopy. Those polyps will then be tested for cancer. Additional treatment may be needed depending on the results of testing. Follow these instructions at home: Eating and drinking ??? Eat foods that are high in fiber, such as fruits, vegetables, and whole grains. ??? Eat foods that are high in calcium and vitamin D, such as milk, cheese, yogurt, eggs, liver, fish, and broccoli. ??? Limit foods that are high in fat, such as fried foods and desserts. ??? Limit the amount of red meat, precooked or cured meat, or other processed meat that you eat, such as hot dogs, sausages, garcia, or meat loaves. ??? Limit sugary drinks. Lifestyle ??? Maintain a healthy weight, or lose weight if recommended by your health care provider. ??? Exercise every day or as told by your health care provider. ??? Do not use any products that contain nicotine or tobacco, such as cigarettes, e-cigarettes, andchewing tobacco. If you need help quitting, ask your health care provider. ??? Do not drink alcohol if: ??? Your health care provider tells you not to drink. ??? You are , may be , or are planning to become . ??? If you drink alcohol: ??? Limit how much you use to: ??? 0???1 drink a day for women. ??? 0???2 drinks a day for men. ??? Know how much alcohol is in your drink. In the [place] one drink equals one 12 oz bottle of beer (355 mL), one 5 oz glass of wine (148 mL), or one 1?? oz glass of hard liquor (44 mL). General instructions ??? Take [id number]-[id number] and prescription medicines only as told by your health care provider. ??? Keep all follow-up visits. This is important. This includes having regularly scheduled colonoscopies. Talk to your health care provider about when you need a colonoscopy. Contact a health care provider if: ??? You have new or worsening bleeding during a bowel movement. ??? You have new or increased blood in your stool. ??? You have a change in bowel habits. ??? You lose weight for no known reason. Summary ??? Colon polyps are tissue growths inside the colon, which is part of the large intestine. They are one type of polyp that can grow in the body. ??? Most colon polyps are noncancerous (benign), but some can become cancerous over time. ??? This condition is diagnosed with a colonoscopy. ??? This condition is treated by removing any polyps that are found. Most polyps can be removed during a colonoscopy. This information is not intended to replace advice given to you by your health care provider. Make sure you discuss any questions you have with your health care provider. Document Revised: 09/15/2020 Document Reviewed: 09/15/2020 [employer] Patient Education ?? 2022 [employer]. Discharge instructions * Theresa Traylor RN: PERFORM, MODIFY Event Display: Discharge Instructions Authored Date: [id number] KAYCEE SERNA Eliza :1960 Age:62 years Sex:Female Visit Date:02/13/2023 Primary Care Physician: Nanda [facility], Kemal Diaz MD Hospital Discharge Instructions We would like to thank you for allowing us to assist you with your healthcare needs. The following includes patient education materials and information regarding your injury/illness. Your Next Steps Discharge Orders Discharge Patient Instructions, Rest today. Resume diet and activities as tolerated. Follow Up in 5 years Medications What How Much When Instructions Next Dose Unchanged ascorbic acid (Vitamin C 1000 mg oral tablet) 1 tab Oral (given by mouth) Every day Unchanged cholecalciferol (Vitamin D3 5000 intl units oral capsule) 1 Capsules Oral (given by mouth) Every day with food ?? Unchanged glucosamine Unchanged omega-3 polyunsaturated fatty acids (Fish Oil 500 mg oral capsule) Unchanged omeprazole (omeprazole 40 mg oral delayed release capsule) Unchanged zinc citrate (zinc citrate 50 mg oral capsule) Every day Unchanged zolpidem (zolpidem 10 mg oral tablet) Your Summary Your Care Team Admitting Physician - Dany Goldberg MD Attending Physician - Katy TRAN, Dany Sapp MD Primary Care Physician - [facility], Kemal Diaz MD Referring Physician - Katy TRAN, Dany Sapp MD Procedures Performed ???EGD - Esophagogastroduodenoscopy (12/09/2012)???Colonoscopy (2012)???Arthroplasty of joint of the thumb Patient/Orthopaedic Physician Assistant Signature Patient Name:KAYCEE SERNA Eliza I have received this information and my questions have been answered. Patient/Orthopaedic Physician Assistant Name: Patient/Orthopaedic Physician Assistant Signature: Relationship to Patient: Witness Name/Signature: Date: Electronically Signed on: 02/13/2023 13:59 EDTSigned by:MS History and physical note * Dany Goldberg MD: PERFORM Event Display: History and Physical Authored Date: [id number] KAYCEE SERNA :1960 Age:62 years Sex:Female Visit Date:02/13/2023 Primary Care Physician: Nanda [facility], Kemal Diaz MD History of Present Illness 62-year-old female seen for??colonoscopy.?? She had an episode of diarrhea with some rectal bleeding earlier this summer. ??This is resolved and she has had no trouble at all for the past 6 weeks.?? Her last colonoscopy was??over 8 years ago.?? 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 Review of Systems No history of chest pain, pressure, previous MD.?? No cough, sputum production or wheezing.?? No current abdominal pain or rectal bleeding. Physical Exam Vitals & Measurements T:??36.3?C ??(Temporal Artery)?? HR:??64??(Peripheral)?? RR:??16?? BP:??126/72(Sitting)?? SpO2:??100%?? HT:??168??cm?? WT:??63.5??kg?? O2 Therapy:??Room air?? Skin warm and dry, neck supple without adenopathy.?? Lungs clear, heart regular without murmurs. ??Abdomen soft Assessment/Plan Ordered: Dextrose 5% in Lactated Ringers Injection 500 mL, Total Volume (mL): 500, 500 mL, Soln-IV, IV, 30 mL/hr, Start Date: 02/13/23 11:03:00 EDT, Populate Charting Weight From Order Valium, 2.5 mg, IV Push, Soln, every 2 min for 10 times, PRN sedation, First Dose: 02/13/23 11:48:00 EDT, Stop Date: Limited # of times, Physician Stop, Routine fentaNYL, 25 mcg = 0.5 mL, IV Push, Soln, every 2 min for 12 times, PRN sedation, First Dose: 02/13/23 11:48:00 EDT, Stop Date: Limited # of times, Physician Stop, Routine lidocaine 1% injectable solution, 5 mg 0.5 mL, Intradermal, Soln, As Directed, PRN other (see comment), First Dose: 02/13/23 11:03:00 EDT, Routine Versed, 1 mg = 1 mL, IV Push, Soln, every 2 min for 10 times, PRN sedation, First Dose: 02/13/23 11:48:00 EDT, Stop Date: Limited # of times, Physician Stop, Routine naloxone, 0.08 mg = 0.2 mL, IV Push, Soln, every 2 min for 10 times, PRN sedation, First Dose: 02/13/23 11:48:00 EDT, Stop Date: Limited # of times, Physician Stop, Routine Communication Order, 02/13/23 11:48:00 EDT, Nursing to administer and doses via IV push per verbal instruction from MD at bedside immediately prior and during conscious sedation procedure. NPO, 02/13/23 11:03:00 EDT, Constant Indicator Obtain Surgical Consent, 02/13/23 11:03:00 EDT, colonoscopy Oxygen Therapy, Stop date 02/13/23 11:48:00 EDT, Simple Mask to maintain SpO2 of 90% or greater Peripheral IV Insertion, 02/13/23 11:03:00 EDT Surgical Pathology [facility], AP Specimen, Routine Collect, 02/13/23, Once, Nurse collect, Print Label, Order for future visit Vital Signs, 02/13/23 11:48:00 EDT, every 5 min, Every 5 minutes with cardiac and respiratory assessment Proceed with colonoscopy. ??Procedure, indications and risks discussed. ??Consent signed and on thechart. 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 Tinnitus Historical No qualifying data Procedure/Surgical History ???EGD - Esophagogastroduodenoscopy (12/09/2012)???Colonoscopy (2012)???Arthroplasty of joint of the thumb Medications Inpatient Dextrose 5% in Lactated Ringers Injection 500 mL, 500 mL, IV fentaNYL, 25 mcg= 0.5 mL, IV Push, every 2 min, PRN lidocaine 1% injectable solution, 5 mg= 0.5 mL, Intradermal, As Directed, PRN naloxone, 0.08 mg= 0.2 mL, IV Push, every 2 min, PRN Valium, 2.5 mg, IV Push, every 2 min, PRN Versed, 1 mg= 1 mL, IV Push, every 2 min, PRN Home Fish Oil 500 mg oral capsule glucosamine omeprazole 40 mg oral delayed release capsule Vitamin C 1000 mg oral tablet, 1000 mg= 1 tab, Oral, Daily Vitamin D3 5000 intl units oral capsule, 125 mcg= 1 cap, Oral, Daily zinc citrate 50 mg oral capsule, Daily zolpidem 10 mg oral tablet Allergies doxycycline erythromycin Social History Alcohol Current- Comments: 5-6 times a year Electronic Cigarette/Vaping Electronic Cigarette Use: Never. Substance Use Never Tobacco Never tobacco user Tobacco Use:. Immunizations Vaccine Date Status SARS-CoV-2 (COVID-19) mRNA-1273 vaccine 07/05/2020 Recorded SARS-CoV-2 (COVID-19) mRNA-1273 vaccine 06/08/2020 Recorded influenza virus vaccine, inactivated 03/09/2014 Recorded influenza virus vaccine, inactivated 03/13/2013 Recorded influenza virus vaccine, inactivated 03/11/2012 Recorded influenza virus vaccine, inactivated 02/20/2011 Recorded influenza virus vaccine, inactivated 03/14/2010 Recorded hepatitis B adult vaccine 09/07/2009 Recorded hepatitis B adult vaccine 04/12/2009 Recorded tetanus/diphth/pertuss (Tdap) adult/adol 03/10/2009 Recorded hepatitis B adult vaccine 03/10/2009 Recorded tetanus-diphth toxoids (Td) adult/adol 06/11/1996 Recorded rubella virus vaccine Recorded Electronically Signed on 02/13/23 01:44 PM [facility] * Chrissie Benites: PERFORM Event Display: History and Physical Authored Date: [id number] KAYCEE SERNA Eliza :1960 Age:62 years Sex:Female [facility] History of Present Illness 62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 Began with nausea,??some right-sided abdominal pain??and loose stools with blood.?? The entire episode lasted about a week and then went on to resolve. ??She tells me she has had no bleeding??and perhaps only some mild constipation since that time.?? 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 Review of Systems No history of current chest pain or pressure.?? EMR notes a history of cardiomyopathy.?? She has nocough or sputum production.?? She has no current abdominal pain or??easy bleeding/bruising. Physical Exam ?Vitals & Measurements ?T:??37.1?C ??(Tympanic)?? HR:??75??(Peripheral)?? RR:??18?? BP:??124/82?? SpO2:??99%?WT:??65.68??kg?? Her skin is warm and dry, her neck is supple there is no cervical or supraclavicular adenopathy. ??Lungs are clear, heart is regular without murmurs her abdomen is soft. Assessment/Plan ?? Patient was evaluated at the time of her illness with stool studies including C. difficile whichwere negative.?Family history is negative.?? Her last colonoscopy was about 8 years ago.?? I told her I would recommend that we proceed with a colonoscopy.?? We just discussed??the procedure, indications and risk. ??Consent will be signed on the day of surgery.?? Would like to put this off until??February when her??Medicare??begins. Problem List/Past Medical History Ongoing ?Adjustment disorder with depressed mood ??Cardiomyopathy ??Chest pain ??Chronic kidney disease ??Conduction disorder of the heart ??Deep venous thrombosis ??FH: Arthritis ??Heart disease ??Hemorrhagic colitis ??Hemorrhoids ??History of Graves' disease ??History of immune thrombocytopenia ??History of methicillin resistant Staphylococcus aureus infection ??Insomnia ??Low back pain ??Mixed hyperlipidemia ??Motion sickness ??Palpitations ??Shoulder joint pain ??Tear film insufficiency of bilateral eyes ??Thrombotic microangiopathy ??Thyroid eye disease ??Tinnitus Historical ?No qualifying data Medications ??Fish Oil 500 mg oral capsule ??glucosamine ??omeprazole 40 mg oral delayed release capsule ??Vitamin C 1000 mg oral tablet, 1000 mg= 1 tab, Oral, Daily ??Vitamin D3 5000 intl units oral capsule, 125 mcg= 1 cap, Oral, Daily ??zinc citrate 50 mg oral capsule, Daily ??zolpidem 10 mg oral tablet Allergies doxycycline erythromycin Social History Tobacco ??Never tobacco user Tobacco Use:. Immunizations ??Vaccine ??Date ??Status ??SARS-CoV-2 (COVID-19) mRNA-1273 vaccine ??07/05/2020 ??Recorded ??SARS-CoV-2 (COVID-19) mRNA-1273 vaccine ??06/08/2020 ??Recorded ??influenza virus vaccine, inactivated ??03/09/2014 ??Recorded ??influenza virus vaccine, inactivated ??03/13/2013 ??Recorded ??influenza virus vaccine, inactivated ??03/11/2012 ??Recorded ??influenza virus vaccine, inactivated ??02/20/2011 ??Recorded ??influenza virus vaccine, inactivated ??03/14/2010 ??Recorded ??hepatitis B adult vaccine ??09/07/2009 ??Recorded ??hepatitis B adult vaccine ??04/12/2009 ??Recorded ??tetanus/diphth/pertuss (Tdap) adult/adol ??03/10/2009 ??Recorded ??hepatitis B adult vaccine ??03/10/2009 ??Recorded ??tetanus-diphth toxoids (Td) adult/adol ??06/11/1996 ??Recorded ??rubella virus vaccine ?? ??Recorded ? Signature Line Electronically Signed on 01/02/23 12:59 PM Dany Goldberg MD ?? [1] [1]??Office Visit Note; Dany Goldberg MD 01/02/2023 12:55 EDT Electronically Signed on 01/12/23 07:30 AM Chrissie Benites Patient Care team information Care Team Personnel Name: Nanda [facility], Kemal Diaz MD Position: No Access Member Role: Informed Provider Address: Address: [address] [address]- Care Team Related Persons Name: JENNA SERNA Address: Home [address] [facility] [id number] Name: SUNNY BOYCE Address: Home
[2023-03-14 20:47] LABS: TSH 1.34 uIU/mL (0.36-3.74)
== END 2023-03-14 14:22 | disposition home or self-care (01) ==
LOC: NCHCN 14:21
PROVIDERS: PCP Internal Medicine; Visit Provider Internal Medicine
DX: U07.1 COVID-19 (principal); R00.1 Bradycardia, unspecified; F51.04 Psychophysiologic insomnia; Z00.00 Encounter for general adult medical examination without abnormal findings
CPT/HCPCS: 84443

== ENCOUNTER 2023-12-26 11:45 | Outpatient (REF) | payer MEDICARE, SELFPAY ==
--- OUTSIDE RECORDS SUMMARY | 2023-12-26 11:48 | XMS_ITS | Continuity of Care Document ---
Author Organization [facility] Address [address] [place] [address] Care Team Providers Care Train Attendant Name Role Phone Kemal Chino Primary Care Physician Encounter [facility]CTY_[place] Date(s): 10/03/23 - 10/03/[address] [address] Discharge Disposition: Home or Self Care Attending Physician: Kemal Duran MD Admitting Physician: Kemal Duran MD Referring Physician: Kemal Duran MD Allergies, Adverse Reactions, Alerts Substance Reaction [...] Date Related Diagnosis Body Site Status Colonoscopy 1 02/12/23 Completed EGD - Esophagogastroduodenoscopy 12/08/12 Completed Colonoscopy 2012 Completed Arthroplasty of joint of the thumb 2 Completed 1Benign polyp, 5 YR FU recommended. 2Left in 2019, Right in 2020 Social History Social History Type Response Tobacco Never tobacco user T obacco Use:. Sex Female Patient Care team information Care Team Personnel [facility] Position: No Access Member Role: Informed Provider Address: Address: [address] [address]- Care Team Related Persons Name: KAREEM JENNA Address: Home [address] [facility] [phone] Name: SUNNY BOYCE
--- OUTSIDE RECORDS SUMMARY | 2023-12-26 11:48 | XMS_ITS | Continuity of Care Document ---
Author Organization [facility] Address [address] [place] [address] Care Team Providers Care Court Specialist Name Role Phone Primeau IPH[facility]emal Primary Care Physician Encounter [facility]_[place] Date(s): 04/02/23 - 04/02/[address] [address] Discharge Disposition: Home or Self Care Attending Physician: Arielle Back INTERNATIONAL TRADE TEACHER Admitting Physician: Arielle Back INTERNATIONAL TRADE TEACHER Referring Physician: Arielle Back INTERNATIONAL TRADE TEACHER Allergies, Adverse Reactions, Alerts Substance Reaction Severity [...] team information Care Team Personnel Name: [facility] Position: No Access Member Role: Informed Provider Address: Address: [address] [address]- Care Team Related Persons Name: KAREEM JENNA Address: Home [address] [facility] [phone] Name: SUNNY BOYCE
--- OUTSIDE RECORDS SUMMARY | 2023-12-26 11:48 | XMS_ITS | Encounter Summary ---
Author Organization [facility] Address [address] [place] [address] Care Team Providers Care Aluminum Molding Machine Operator Name Role Phone Kemal Vee MD Primary Care Provider Encounter Details Date Type Department Care Team (Late st Contact Info) Description 02/10/2021 Lab Requisition [facility] [place] [address] Outr Resulting Lab, Provider Social History Tobacco Use Types Packs/Day Years Used Date Smoking Tobacco: Never Assessed Interpersonal Safety Answer Date Record ed Physically Hurt Never 05/04/2020 Verbally Threaten Not on file 05/04/2020 Sex and Gender Information Value Date Recorded Sex Assigned at Not on file Gender Identity Not on file Sexual Orientation Not on file documented as of this encounter Plan of Treatment Not on file documented as of this encounter Procedures Procedure Name Priority Date/Time Associated Diagnosis Comments LYME AB Routine 02/09/2021 14:30 EDT documented in this encounter Results * LYME AB (02/09/2021 14:30 EDT) Lyme Ab Negative Negative 02/11/2021 11:26 EDT [facility] Blood VENOUS BLOOD / Unknown 02/09/2021 14:30 EDT 02/10/2021 16:30 EDT Provider Outr Resulting Lab IMMUNOLOGY A ND SEROLOGY ORDERABLES [facility] [address] [place] [address] documented in this encounter Visit Diagnoses Not on filedocumented in this encounter Care Teams Aluminum Molding Machine Operator Relationship Specialty Start Date End Date Kemal Vee MD [address] [place] [address] PCP - General 09/09/21 documented as of this encounter
--- OUTSIDE RECORDS SUMMARY | 2023-12-26 11:48 | XMS_ITS | Encounter Summary ---
[facility] Organization [facility] [place] [address] Care Team Providers Care Refund Specialist Name Role Phone Jason Davila MD Primary Care Provider [phone] Encounter Details Date Type Department Care Team (Latest Contact Info) Description 05/22/2013 12:36 PM EST - 05/22/2013 11:59 PM EST Hospital [place] [address] Jason Davila MD [address] [place] [phone] Discharge Disposition: Home Social History Tobacco Use Types Packs/Day Years Used Date Smoking Tobacco: Former Cigarettes 0.5 5 0 06/15/1973 - 06/15/1978 Smokeless Tobacco: Never Alcohol Use Standard Drinks/Week Comments No 0 (1 standard drink = 0.6 oz pur e alcohol) Sex and Gender Information Value Date Recorded Sex Assigned at Female 12/03/2023 1:56 PM EDT Gender Identity Female 12/03/2023 1:56 PM EDT Sexual Orientation Straight 12/03/2023 1: 56 PM EDT documented as of this encounter Medications at Time of Discharge Medication Sig Dispensed Refills Start Date End Date acetaminophen (TYLENOL) 500 mg tablet Take 2 tablets by mouth every 6 hours as needed for Pain or Fever. 30 tablet 01/03/2013 aspirin 81 mg chewable tablet Take 81 mg by mouth daily. 30 tablet 01/03/2013 metoprolol succinate (TOPROL-XL) 100 mg XL tablet Take 1 tablet by mouth daily. 30 tablet 12 01/03/2013 CALCIUM ORAL 12/03/2009 ondansetron (ZOFRAN) 8 mg tablet Take 8 mg by mouth as needed. 07/09/2014 warfarin (COUMADIN) 5 mg tablet Take 2 tablets by mouth daily. 60 tablet 0 01/05/2013 04/15/2014 omeprazole (PRILOSEC) 40 mg capsule Take 1 capsule by mouth daily. 30 capsule 11 12/27/2012 12/27/2013 documented as of this encounter Plan of Treatment Not on file documented as of this encounter Procedures Procedure Name Priority Date/Time Associated Diagnosis Comments PROTHROMBIN TIME Routine 05/22/2013 1:15 PM EST documented in this encounter Results * (ABNORMAL) Prothrombin Time (05/22/2013 1:15 PM EST) PT 28.5(H) 12.0 - 15.0 sec BAR NOE Comment: [facility] Transfusion Committee Guidelines: INR less than 2.0, PTT less than OR equal to 43.5 seconds, or Fibrinogen greater than or equal to 100 mg/dl indicate adequate procoagulant activity for hemostasis in patients without underlying bleeding disorders. INR 2.6(H) 0.9 - 1.1 BAR PINEDAIUM Blood specimen (specimen) 05/22/2013 1:15 PM EST 05/22/2013 1:22 PM EST Narrative Resulting Agency Comment Spec In Lab Jason Davila MD HEMATOLOGY ORDERABLE S BAR NOE documented in this encounter Visit Diagnoses Not on filedocumented in this encounter Care Teams Refund Specialist Relationship Specialty Start Date End Date Jason Davila MD [address] [place] [address] [place] [address] PCP - General 01/13/13 12/09/23 marilyn noble Consulting Physician Gastroenterology 01/13/13 documented as of this encounter
--- OUTSIDE RECORDS SUMMARY | 2023-12-26 11:48 | XMS_ITS | Continuity of Care Document ---
Author Organization [facility] Address [address] [place] [address] Care Team Providers Care Realtime Captioner Name Role Phone Kemal Chino Primary Care Physician Encounter [facility] Date(s): 09/07/23 - 09/07/[address] [address] Discharge Disposition: Home or Self Care Attending [...] team information Care Team Personnel [facility] Position: No Access Member Role: Informed Provider Address: Address: [address] [address]- Care Team Related Persons Name: KAREEM JENNA Address: Home [address] [facility] [phone] Name: SUNNY BOYCE
--- OUTSIDE RECORDS SUMMARY | 2023-12-26 11:48 | XMS_ITS | Encounter Summary ---
Author Organization [facility] [place] [address] Care Team Providers Care Hand Bander Name Role Phone Jason Davila MD Primary Care Provider [phone] Reason for Visit * Reason Onset Date Comments Other 01/30/2014 Encounter Details Date Type Department Care Team (Late st Contact Info) Description 01/30/2014 [place]phone [place] [address] Yee Cabello Other Social History Tobacco Use Types Packs/Day Years [...] PM EDT documented as of this encounter Miscellaneous Notes * Telephone Encounter - Yee Cabello - 01/30/2014 9:26 AM EDT Letter mailed to patient to schedule follow up appointment for january. Patient called in stating she is feeling fine and does not need this appointment. documented in this encounter Plan of Treatment Not on file documented as of this encounter Visit Diagnoses Not on filedocumented in this encounter Care Teams Hand Bander Relationship Specialty Start Date End Date Jason Davila MD [address] [place] [address] [place] [address] PCP - General 01/13/13 12/09/23 marilyn noble Consulting Physician Gastroenterology 01/13/13 documented as of this encounter
--- OUTSIDE RECORDS SUMMARY | 2023-12-26 11:48 | XMS_ITS | Encounter Summary ---
Author Organization [facility] Address [facility] [place] [address] Care Team Providers Care Mirror Inspector Name Role Phone Lonny Davila MD Primary Care Provider [phone] Encounter Details Date Type Department Care Team (Late st Contact Info) Description 07/09/2014 2:00 PM EST Follow-Up Nephrology [place] [address] Augustina Encinas MD [facility] [place] [address] HUS (hemolytic uremic syndrome) Discharge Disposition: Home Social History Tobacco Use [...] PM EDT documented as of this encounter Last Filed Vital Signs Vital Sign Reading Time Taken Comments Blood Pressure 107/68 07/08/2014 11:19 AM EST Pulse 55 07/08/2014 11:19 AM EST Temperature - - Respiratory Rate - - Oxygen Saturation - - Inhaled Oxygen Concentration - - Weight 67.4 kg (148 lb 9.6 oz) 07/08/2014 11:19 AM EST Height 170.2 cm (5' 7) 07/08/2014 11:19 AM EST Body Mass Index 23.27 07/08/2014 11:19 AM EST documented in this encounter Progress Notes * Augustina Encinas MD - 07/11/2014 1:41 PM EST The relevant details regarding Anum Montesabelle were reviewed with Dr. Salgado. The assessment andplan were formulated in discussion with me and I agree with them as documented, with the following additions. I have seen and examined the patient, providing the ulloa components as outlined below. I agree with Dr. Salgado's exam findings. Patient's kidney function has improved and returned to (near) normal levels. * Shiv Salgado MD - 07/09/2014 1:59 PM EST [facility] Nephrology/Hypertension Follow Up Anum Henriquez [id number] ID: [id number] y.o. female for f/u visit for HUS. 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 Her hospitalization was complicated by b/l LE DVT (on coumadin now) and MRSA bacteremia ( completed treatment with daptomycin 01/13/13) PAST MEDICAL HX: TTP-HUS 12/21 Dvt, LE -12/21 vincent ( started w cr 1.3 then peaked to 2.4/2.5 and recovering down to 1.8 on 01/13) Graves disease EGD 12/18/12- submucosal bleed EUS-EGD 02/05/13-no abnormalities Subjective/ih: Doing well urinating well, no dark colored urine or blood in urine BP at home 110s Had holter monitor last week and is f/u w Di as pt Having feeling of squeezing on her chest and some dizziness for 2 months Medications: Reviewed MAR Allergies / ADRs: Allergies Allergen Reactions ??? Erythromycin Base PHYSICAL EXAM: Filed Vitals: 07/08/14 1119 BP: 107/68 Pulse: 55 Gen - AAO x 3 in NAD Skin - No rash HEENT - Moist mucous membranes Chest: Lungs clear to auscultation, no wheezes/ rhonchi/ crackles. Heart - S1/S2 normal, no murmur, gallop, or rub. JVP not elevated. Abd - Soft. + BS. No bruit. Non tender. No organomegaly. Ext - Warm. No cyanosis. No dependent edema. Labs/ Imagin06/25/14 Na 140 k 4.4 cl 101 hco3 28 bun 16 cr 1.1 egfr 51 ca 10.1 phos 4.5 Alb 4.4 glu 85 Hb 12.2 platelet 220 ast 38 alt 23 alp 52 t bili 0.3 direct 0.2 ggt 16 tsh 0.74 urine dipstick: 1.010. Ph 5 no blood and rest negative including protein Impression/ Plan: 1. 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 VINCENT, resolved Pt chose to follow up w PCP w repeat BMP in 6 months and if stable every year. Please refer back ifany concerns 3. HTN Consider decreasing metoprolol dose as pt c/o of above symptoms 4. Acute gastritis Resolved Pt had EUS-EGD 02/05/13 which was normal EGD on 12/18-submucosal bleed 5. Probable rt hydrosalpinx -f/u w PCP/ramp manager 6. Graves disease F/u w Endo Plan: Follow up: as needed Seen and Discussed w/ Dr. Nic Salgado MD Nephrology Fellow Pager# [phone] LONNY DAVILA MD [address] [place] [phone] documented in this encounter Miscellaneous Notes * Addendum Note - Augustina Encinas MD - 07/11/2014 1:43 PM ESTAddended by: AUGUSTINA ENCINAS on: 07/11/2014 01:43 PM Modules accepted: Level of Service documented in this encounter Plan of Treatment Not on file documented as of this encounter Visit Diagnoses Diagnosis HUS (hemolytic uremic syndrome) Hemolytic-uremic syndrome documented in this encounter Care Teams Mirror Inspector Relationship Specialty Start Date End Date Lonny Davila MD [address] [place] [address] [place] [address] PCP - General 01/13/13 12/09/23 marilyn noble Consulting Physician Gastroenterology 01/13/13 documented as of this encounter
--- OUTSIDE RECORDS SUMMARY | 2023-12-26 11:48 | XMS_ITS | Encounter Summary ---
Author Organization [facility] [place] [address] Care Team Providers Care Miscellaneous Machine Operator Name Role Phone Jason Davila MD Primary Care Provider [phone] Encounter Details Date Type Department Care Team (Late st Contact Info) Description 07/13/2014 External Results [place] [address] Social History Tobacco Use Types Packs/Day Years [...] PM EDT documented as of this encounter Plan of Treatment Not on file documented as of this encounter Procedures Procedure Name Priority Date/Time Associated Diagnosis Comments LAB SCAN Routine 06/25/2014 documented in this encounter Results * Scan Doc: Lab (06/25/2014) Historical Provider MD LOYD MGR SCAN EX T ORDR/RSLT documented in this encounter Visit Diagnoses Not on filedocumented in this encounter Care Teams Miscellaneous Machine Operator Relationship Specialty Start Date End Date Jason Davila MD [address] [place] [address] [place] [address] PCP - General 01/13/13 12/09/23 marilyn noble Consulting Physician Gastroenterology 01/13/13 documented as of this encounter
--- OUTSIDE RECORDS SUMMARY | 2023-12-26 11:48 | XMS_ITS | Encounter Summary ---
Author Organization [facility] Address [facility] [place] [address] Care Team Providers Care Customer Professional Name Role Phone Jason Davila MD Primary Care Provider [phone] Reason for Visit * Reason Comments Thyroid Problem Encounter Details Date Type Department Care Team (Late st Contact Info) Description 03/21/2013 11:00 AM EDT Office [place] [address] Minor Kebede MD [facility] [place] [address] Graves' disease (Primary Dx); H/O Graves' disease Discharge Disposition: Home Social History Tobacco Use [...] Sign Reading Time Taken Comments Blood Pressure 108/76 03/21/2013 11:16 AM EDT Pulse 54 03/21/2013 11:16 AM EDT Temperature - - Respiratory Rate - - Oxygen Saturation - - Inhaled Oxygen Concentration - - Weight 61.4 kg (135 lb 6.4 oz) 03/21/2013 11:16 AM EDT Height - - Body Mass Index 21.2 01/22/2013 3:19 PM EDT documented in this encounter Progress Notes * Tyson Connolly MD - 03/22/2013 9:05 AM EDT I saw this patient with Dr Kebede . I reviewed the ulloa portions of the history and physical exam, and reviewed pertinent lab data. I answered all patient questions. I was involved in all medicaldecision making and agree with this plan. At this ooint, after a remarkable recovery from TTP, her thyroid disease is not active; her eye disease is present but stable and we can follow up prn * Minor Kebede MD - 03/21/2013 8:55 AM EDT Endocrinology Follow-Up Note Reason for Visit: F/U for Graves' disease HPI: The patient is a 53-y/o lady with a PMH significant for long-standing Graves' disease and a recent complicated hospital stay for likely TTP-HUS who is being seen in f/u for her Graves' disease. At her hospitalization 2.5 months ago, the patient's methimazole was stopped as her TSH was high-normal on a minimal dose and there was originally some concern for methimazole-induced vasculitis (now thought to be unlikely). Her TSH dropped to 0.63 soon after discharge but subsequently parminder to 1.75 with normalization of her total T3 and free T4 6 weeks ago. The patient has continued to feel well. She denies palpitations, changes in bowel habits, tremors, and vision changes. She has gained back the weight she lost during her hospitalization. Her only complaint is new insomnia. 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) - HLD Relevant Medications: - Metoprolol XL 100 q day FH: - No known endocrine disorders, including thyroid disease ROS: - 10-point ROS performed and negative, except as above PE: - Vitals: 108/76, 54, 135 lbs - Gen: AAO x 3, NAD - HEENT: + proptosis (22 mm on the right and 22 mm on the left), PERRL, MMM - CV: RRR, no M/C/R - Pulm: CTAB - Abd: +BS, NTTP - Ext: No edema - Neuro: No tremor, 2+ reflexes Labs: - 03/21/2011: - TSH 1.63 - Total T3 96 - Free T4 1.23 - Anti-TPO abs pending - 02/05/2013: - TSH 1.75 - Total T3 102 - Free T4 1.11 Assessment: The patient is a 53-y/o lady with a PMH significant for long- standing Graves' disease and a recent complicated hospital stay for likely TTP- HUS who is being seen in f/u for her Graves' disease. The patient appears to have fully recovered from her recent illness and is showing no signs of recurrence of her Graves' disease. She is, however, at risk for both recurrence of her Graves' andprogression to hypothyroidism. Her pending anti-TPO abs may help determine her risk for developing hypothyroidism in the future. Plan: - No need for thionamide therapy at this point, patient already on beta-kirstie - As no evidence for hyper- or hypothyroidism, there is no need for her to f/u with Endocrinology at this point - Would suggest to her PCP that he check a TSH 1-2 times yearly and with any symptoms concerning for hyper- or hypothyroidism (patient given symptoms concerning for each) - If thyroid abnormalities develop in the future, the patient can certainly be seen here in f/u Patient seen and discussed with the attending Dr. Mohsen Kebede M.D. Fellow, Endocrinology 03/21/2013 documented in this encounter Plan of Treatment Not on file documented as of this encounter Procedures Procedure Name Priority Date/Time Associated Diagnosis Comments THYROID PEROXIDASE ANTIBODY Routine 03/21/2013 10:02 AM EDT H/O Graves' disease T3 TOTAL Routine 03/21/2013 10:02 AM EDT H/O Graves' disease TSH Routine 03/21/2013 10:02 AM EDT H/O Graves' disease T4, FREE Routine 03/21/2013 10:02 AM EDT H/O Graves' disease documented in this encounter Results * (ABNORMAL) Thyroid peroxidase antibody (03/21/2013 10:02 AM EDT) Thyroperox Ab 72(H) <=34 IU/mL [facility] Blood specimen (specimen) 03/21/2013 10:02 AM EDT 03/21/2013 12:04 PM EDT Narrative Resulting Agency Comment Spec In Lab Clovis Varner MD IMMUNOLOGY ORDERA BLES [facility] * T4, free (03/21/2013 10:02 AM EDT) Free T4 1.23 0.90 - 1.60 ng/dL [facility] Blood specimen (specimen) 03/21/2013 10:02 AM EDT 03/21/2013 10:09 AM EDT Narrative Resulting Agency Comment Spec In Lab Clovis Varner MD CHEMISTRY ORDERAB LES [facility] * T3 (03/21/2013 10:02 AM EDT) T3, Total 96 75 - 170 ng/dL [facility] Blood specimen (specimen) 03/21/2013 10:02 AM EDT 03/21/2013 10:09 AM EDT Narrative Resulting Agency Comment Spec In Lab Clovis Varner MD CHEMISTRY [facility]AB LES [facility] * TSH (03/21/2013 10:02 AM EDT) TSH 1.63 0.27 - 4.20 mcIU/mL BAR NOE Blood specimen (specimen) 03/21/2013 10:02 AM EDT 03/21/2013 10:09 AM EDT Narrative Resulting Agency Comment Spec In Lab Clovis Varner MD CHEMISTRY ORDERAB LES BAR NOE documented in this encounter Visit Diagnoses Diagnosis Graves' disease- Primary Toxic diffuse goiter without mention of thyrotoxic crisis or storm H/O Graves' disease Personal history of other endocrine, metabolic, and immunity disorders documented in this encounter Care Teams Customer Professional Relationship Specialty Start Date End Date Jason Davila MD [address] [place] [address] [place] [address] PCP - General 01/13/13 12/09/23 marilyn noble Consulting Physician Gastroenterology 01/13/13 documented as of this encounter
--- OUTSIDE RECORDS SUMMARY | 2023-12-26 11:48 | XMS_ITS | Encounter Summary ---
Author Organization [facility] Address [facility] [place] [address] Care Team Providers Care Vice President Global Advertising Sales Name Role Phone Jason Davila MD Primary Care Provider Reason for Visit * Reason Comments Congestive Heart Failure Encounter Details Date Type Department Care Team (Late st Contact Info) Description 05/06/2013 9:30 AM EST Office Visit [address] [address] Martir Sevilla MD [facility] [place] [address] CHF (congestive heart failure) (Primary Dx) Social History Tobacco Use Types Packs/Day Years [...] PM EDT documented as of this encounter Progress Notes * Gregg Beasley - 05/09/2013 1:34 PM EST * Martir Sevilla - 05/06/2013 11:19 AM EST scannedn note documented in this encounter Plan of Treatment Not on file documented as of this encounter Visit Diagnoses Diagnosis CHF (congestive heart failure)- Primary Congestive heart failure, unspecified documented in this encounter Care Teams Vice President Global Advertising Sales Relationship Specialty Start Date End Date Jason Davila MD [address] [place] [address] [place] [address] PCP - General 01/13/13 12/09/23 marilyn noble Consulting Physician Gastroenterology 01/13/13 documented as of this encounter
--- OUTSIDE RECORDS SUMMARY | 2023-12-26 11:48 | XMS_ITS | Encounter Summary ---
Author Organization [facility] Address [address] [place] [address] Care Team Providers Care Bow Stapler Name Role Phone Kemal Vee MD Primary Care Provider Encounter Details Date Type Department Care Team (Late st Contact Info) Description 10/13/2021 Lab Requisition [facility] Pathology & Laboratory Medicine - [facility] [address] [place] [address] Kemal Vee MD [address] [place] [address] Encounter for other general examination Social History Tobacco Use Types Packs/Day Years [...] Procedure Name Priority Date/Time Associated Diagnosis Comments SURGICAL PATHOLOGY Today 10/12/2021 17 :00 EDT Encounter for other general examination documented in this encounter Results * SURGICAL PATHOLOGY (10/12/2021 17:00 EDT) Note to Patient The following pathology results have been interpreted by your pathologist and may be available to you before your health provider has had the opportunity to review them. Please allow time for your provider to receive these results and explore management options, if applicable. 10/14/2021 14:20 EDT [facility] Final Diagnosis A. SKIN OF CHEST LEFT EXCISION: - Squamous cell carcinoma, well differentiated, superficially invasive. - Margins negative for squamous cell carcinoma (in the plane the complete sections examined). 10/14/2021 14:20 [facility] Attestation By the signature below, the attending physician certifies that they have 1) personally conducted a gross and/or microscopic examination of the described specimen(s), and/or personally interpreted the results of laboratory testing of the described specimen(s), and 2) personally rendered or confirmed the above diagnosis. 10/14/2021 14:20 [facility] at 1420 Microscopic Description Sections consist of an excision of skin with a central papule. The papules formed by a proliferation of mildly atypical squamous epithelium. The proliferation has an endophytic growth pattern with a small number of detached islands surrounded by dense inflammation. The squamous cells enlarged nuclei with prominent nucleoli and areas of dyskeratosis. Deeper sections have similar features. 10/14/2021 14:20 [facility] Clinical History BCC; DDx: BCC, SCC, keratinized skin tag 10/14/2021 14:20 [facility] Gross Description A. Received in formalin labelled with proper patient identification (initials I, S) and L chest is an unoriented ellipse of mann-brown skin and subcutis measuring 1.4 x 0.7 cm and excised to a depth of 0.6 cm. Centrally on the skin surface is a raised white nodule measuring 0.6 x 0.4 x 0.3 cm. Inked, serially sectioned and submitted entirely as A1 central sections and A2 tips, reverse en face. DESHAUN MUSA(ASCP) 10/13/2021 18:45 10/14/2021 14:20 [facility] Performing Lab [facility] 10/14/2021 14:20 [facility] Scanned Images 10/14/2021 14:20 [facility] Tissue TISSUE SPECIMEN FROM SKIN / Unknown 10/12/2021 17:00 EDT 10/13/2021 17:16 EDT Kemal Vee MD PATHOLOGY ORDERABLES [facility] [address] [place] [address] documented in this encounter Visit Diagnoses Diagnosis Encounter for other general examination documented in this encounter Care Teams Bow Stapler Relationship Specialty Start Date End Date Kemal Vee MD [address] [place] [address] PCP - General 09/09/21 documented as of this encounter
--- OUTSIDE RECORDS SUMMARY | 2023-12-26 11:48 | XMS_ITS | Encounter Summary ---
Author Organization [facility] Address [facility] [place] [address] Care Team Providers Care Record Clerk Name Role Phone Jason Davila MD Primary Care Provider [phone] Encounter Details Date Type Department Care Team (Latest Contact Info) Description 02/05/2013 1:01 PM EDT - 02/05/2013 11:59 PM EDT [place] [address] Clovis Varner MD [facility] [place] [address] Hyperthyroidism Discharge Disposition: Home Social History Tobacco Use [...] mouth daily. 60 tablet 0 01/05/2013 04/15/2014 alum-mag hydroxide-simeth (MAALOX) 200-200-20 mg/5 mL suspension Take 10 mLs by mouth 3 times daily as needed. 355 mL 01/03/2013 05/22/2013 LORazepam (ATIVAN) 0.5 mg tablet Take 1 tablet by mouth every 6 hours as needed. 30 tablet 0 01/03/2013 05/22/2013 omeprazole (PRILOSEC) 40 mg capsule Take 1 capsule by mouth daily. 30 capsule 11 12/27/2012 12/27/2013 documented as of this encounter Plan of Treatment Not on file documented as of this encounter Procedures Procedure Name Priority Date/Time Associated Diagnosis Comments T3 TOTAL STAT 02/05/2013 1:09 PM EDT Hyperthyroidism TSH Routine 02/05/2013 1:09 PM EDT Hyperthyroidism T4, FREE Routine 02/05/2013 1:09 PM EDT Hyperthyroidism documented in this encounter Results * T3 (02/05/2013 1:09 PM EDT) T3, Total 102 75 - 170 ng/dL [facility] Blood specimen (specimen) 02/05/2013 1:09 PM EDT 02/05/2013 1:12 PM EDT Narrative Resulting Agency Comment Spec In Lab Clovis Varner MD CHEMISTRY ORDERAB LES [facility] * T4, free (02/05/2013 1:09 PM EDT) Free T4 1.11 0.90 - 1.60 ng/dL [facility] Blood specimen (specimen) 02/05/2013 1:09 PM EDT 02/05/2013 1:12 PM EDT Narrative Resulting Agency Comment Spec In Lab Clovis Varner MD CHEMISTRY ORDERAB LES Performing Organization Address City/[facility] Co de Phone Number [facility] * TSH (02/05/2013 1:09 PM EDT) TSH 1.75 0.27 - 4.20 mcIU/mL [facility] Blood specimen (specimen) 02/05/2013 1:09 PM EDT 02/05/2013 1:12 PM EDT Narrative Resulting Agency Comment Spec In Lab Clovis Varner MD CHEMISTRY ORDERAB LES Performing Organization Address [facility] Co de Phone Number [facility] documented in this encounter Visit Diagnoses Diagnosis Hyperthyroidism Thyrotoxicosis without mention of goiter or other cause, without mention of thyrotoxic crisis or storm documented in this encounter Care Teams Record Clerk Relationship Specialty Start Date End Date Jason Davila MD [address] [place] [address] [place] [address] PCP - General 01/13/13 12/09/23 marilyn noble Consulting Physician Gastroenterology 01/13/13 documented as of this encounter
--- OUTSIDE RECORDS SUMMARY | 2023-12-26 11:48 | XMS_ITS | Encounter Summary ---
[place] [address] Care Team Providers Care Check Cashier Name Role Phone Kemal Vee MD Primary Care Provider Reason for Referral * Diagnostic Test (Routine) - Pending Review Specialty Diagnoses / Procedures Referred By Phan pham Referred To Contact Cardiology Diagnoses Chest pain, unspecified type Procedures Stress Test, Exercise (Treadmill) Kemal Vee MD [address] [place] [address] [facility] [place] [address] Referral ID Status Reason Start Date Expiration Date Visits Requested Visits Authorized [id number] Pending Review Specialty Service Requested 10/16/2023 10/15/2024 1 1 Reason for Visit * Diagnostic Test (Routine) - Pending Review Specialty Diagnoses / Procedures Referred By Contjodi pham Referred To Contact Cardiology Diagnoses Chest pain, unspecified type Procedures Stress Test, Exercise (Treadmill) Kemal Vee MD [address] [place] [address] [facility] [place] [address] Referral ID Status Reason Start Date Expiration Date Visits Requested Visits Authorized [id number] Pending Review Specialty Service Requested 10/16/2023 10/15/2024 1 1 Encounter Details Date Type Department Care Team (Latest Contact Info) Description 12/10/2023 1:29 PM EDT - 12/10/2023 11:59 PM EDT Hospital Encounter [place] [address] Kemal Vee MD [address] [place] [address] Chest pain, unspecified type Discharge Disposition: Home Social History Tobacco Use [...] Sig Dispensed Refills Start Date End Date OMEGA [id number]-FISH OIL ORALIndications:History of TTP (thrombotic thrombocytopenic purpura) Take by mouth. GLUC/CHND/OM3/DHA/EPA/FISH/ STR (GLUCOSAMINE CHONDROITIN PLUS ORAL)Indications:History of TTP (thrombotic thrombocytopenic purpura) Take by mouth. zolpidem (AMBIEN) 10 mg TabletIndications:History of TTP (thrombotic thrombocytopenic purpura) Take 5 mg by mouth nightly as needed. acetaminophen (TYLENOL) 500 mg tablet Take 2 tablets by mouth every 6 hours as needed for Pain or Fever. 30 tablet 01/03/2013 aspirin 81 mg chewable tablet Take 81 mg by mouth daily. 30 tablet 01/03/2013 metoprolol succinate (TOPROL-XL) 100 mg XL tablet Take 1 tablet by mouth daily. 30 tablet 12 01/03/2013 CALCIUM ORAL 12/03/2009 documented as of this encounter Plan of Treatment Not on file documented as of this encounter Procedures Procedure Name Priority Date/Time Associated Diagnosis Comments STRESS TEST, EXERCISE (TREADMILL) Routine 12/10/2023 3:51 PM EDT Chest pain, unspecified type documented in this encounter Results * Stress Test, Exercise (Treadmill) (12/10/2023 3:51 PM EDT) Anatomical Region Laterality Modality Other Kemal Vee MD [facility] ORD ERABLES documented in this encounter Visit Diagnoses Diagnosis Chest pain, unspecified type documented in this encounter Care Teams Check Cashier Relationship Specialty Start Date End Date Kemal Vee MD [address] [place] [address] PCP - General General Internal Medicine 12/10/23 marilyn noble Consulting Physician Gastroenterology 01/13/13 documented as of this encounter
--- OUTSIDE RECORDS SUMMARY | 2023-12-26 11:48 | XMS_ITS | Referral Summary ---
Author Organization [facility] Address [address] [place] [address] Care Team Providers Care Metal Riveter Name Role Phone Kemal Vee MD Primary Care Provider Social History Tobacco Use Types Packs/Day Years Used Date Smoking Tobacco: Never Assessed Interpersonal Safety Answer Date Record ed Physically Hurt Never 05/04/2020 Verbally Threaten Not on file 05/04/2020 Sex and Gender Information Value Date Recorded Sex Assigned at Not on file Gender Identity Not on file Sexual Orientation Not on file Plan of Treatment Not on file Care Teams Metal Riveter Relationship Specialty Start Date End Date Kemal Vee MD [address] [place] [address] PCP - General 09/09/21
--- OUTSIDE RECORDS SUMMARY | 2023-12-26 11:48 | XMS_ITS | Encounter Summary ---
Author Organization [facility] Address [facility] [place] [address] Care Team Providers Care Terminal Supervisor Name Role Phone Lonny Davila MD Primary Care Provider [phone] Reason for Visit * Reason Comments Acute Kidney Injury Encounter Details Date Type Department Care Team (Late st Contact Info) Description 02/20/2013 4:00 PM EDT Follow-Up [place] [address] Shiv Salgado MD [facility] [place] [address] DELVIS (acute kidney injury) (Primary Dx); Anemia; HUS (hemolytic uremic syndrome); DVT (deep venous thrombosis); Graves disease Discharge Disposition: Home Social History Tobacco [...] Sign Reading Time Taken Comments Blood Pressure 142/87 02/20/2013 4:03 PM EDT Pulse 54 02/20/2013 4:03 PM EDT Temperature - - Respiratory Rate - - Oxygen Saturation - - Inhaled Oxygen Concentration - - Weight 58.1 kg (128 lb) 02/20/2013 4:03 PM EDT Height - - Body Mass Index 20.04 01/22/2013 3:19 PM EDT documented in this encounter Progress Notes * Osmany Encinas MD - 02/25/2013 7:26 AM EDT The relevant details regarding Anum Montesabelle were reviewed with Dr. Salgado. The assessment andplan were formulated in discussion with me and I agree with them as documented, with the following additions. I have seen and examined the patient, providing the ulloa components as outlined below. I agree with Dr. Salgado's exam. Renal function improved. * Shiv Salgado MD - 02/21/2013 10:55 AM EDT [facility] Nephrology/Hypertension Follow Up Anum Henriquez [id number] ID: [id number] y.o. female for f/u visit for TTP. 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 Dvt, LE -12/21 delvis ( started w cr 1.3 then peaked to 2.4/2.5 and recovering down to 1.8 on 01/13) Graves disease ( on Methimazole, which was stopped during hospitalization, f/u w Endocrine) EGD 12/18/12- submucosal bleed EUS-EGD 02/05/13-no abnormalities Subjective: feels well , has gained wt, no abd pain; had appointments with GI, cardiology in the interum ROS: -no fever, chills, night sweats -no headache, blurring of vision, diplopia -no dysphagia, hearing problems -no chest pain, palpitation, no GUEVARA, orthopnea -no cough or SOB -has abdominal pain, nausea, but novomiting or diarrhea -no rash -no neuropathy -no LE swelling -no change in mood -no heat or cold intolerance Medications: Prior to Admission medications Medication Sig Start Date End Date Taking? Authorizing Provider warfarin (COUMADIN) 5 mg tablet Take 2 tablets by mouth daily. 01/05/13 Yes Flynn Frausto MD ondansetron (ZOFRAN) 8 mg tablet Take 1 tablet by mouth 3 times daily (before meals). Try 1/2 tablet first. If ineffective, use whole tablet 01/05/13 Yes Flynn Frausto MD acetaminophen (TYLENOL) 500 mg tablet Take 2 tablets by mouth every 6 hours as needed for Pain or Fever. 01/03/13 Yes Flynn Frausto MD alum-mag hydroxide-simeth (MAALOX) 200-200-20 mg/5 mL suspension Take 10 mLs by mouth 3 times dailyas needed. 01/03/13 Yes Flynn Frausto MD aspirin 81 mg chewable tablet Take 81 mg by mouth daily. 01/03/13 Yes Flynn Frausto MD calcium carbonate (TUMS) 200 mg calcium (500 mg) chewable tablet Take 1-2 tablets by mouth every 4 hours as needed for Heartburn. 01/03/13 Yes Flynn Frausto MD lisinopril (PRINIVIL;ZESTRIL) 2.5 mg tablet Take 1 tablet by mouth daily. 01/03/13 Yes Flynn Frausto MD LORazepam (ATIVAN) 0.5 mg tablet Take 1 tablet by mouth every 6 hours as needed. 01/03/13 Yes Flynn Frausto MD metoprolol succinate (TOPROL-XL) 100 mg XL tablet Take 1 tablet by mouth daily. 01/03/13 Yes Flynn Frausto MD promethazine (PHENERGAN) [address] 0.5 suppositories rectally every 6 hours as neededfor Nausea. Ok to use 1 whole suppository if 1/2 does not work. 12/28/12 Yes Ming Gomez MD omeprazole (PRILOSEC) 40 mg capsule Take 1 capsule by mouth daily. 12/27/12 12/27/13 Yes John Kimball MD CALCIUM ORAL 12/03/09 Yes sucralfate (CARAFATE) 100 mg/mL suspension Take 10 mLs by mouth 4 times daily for 7 days. 01/13/13 01/20/13 Shiv Salgado MD famotidine (PEPCID) 20 mg tablet Take 1 tablet by mouth 2 times daily as needed (GI upset, pain). 01/03/13 01/13/13 Flynn Frausto MD Thatpnkdtpw-Iiwehipsv-Zhl C-Mn 500-400 mg Cap 12/03/09 01/13/13 Allergies / ADRs: Allergies Allergen Reactions ??? Erythromycin Base PHYSICAL EXAM: Filed Vitals: 02/20/13 1603 BP: 142/87 Pulse: 54 Gen - AAO x 3 in NAD Skin - No rash HEENT - Moist mucous membranes Chest: Lungs clear to auscultation, no wheezes/ rhonchi/ crackles. Heart - S1/S2 normal, no murmur, gallop, or rub. JVP not elevated. Abd - Soft. + BS. No bruit. Non tender. No organomegaly. Ext - Warm. No cyanosis. No dependent edema. Labs/ Imaging: Lab Results Component Value Date CREATININE 1.85* 01/13/2013 BUN 31* 01/13/2013 NA 136 01/13/2013 K 4.7 01/13/2013 CL 100 01/13/2013 CO2 24 01/13/2013 Lab Results Component Value Date WBC 5.7 01/13/2013 HGB 10.3* 01/13/2013 HCT 32.6* 01/13/2013 MCV 92.9 01/13/2013 PLATELET 285 01/13/2013 Lab Results Component Value Date ALT 12 01/22/2013 AST 18 01/22/2013 ALKPHOS 52 01/22/2013 BILITOT 0.2 01/22/2013 Impression/ Plan: 1. 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 DELVIS, non ologuric Improving, as above; pt getting q wkly labs and cr is down to 1.3 last week was 1.4; expecting to improve futher but may not go back to completely normal 3. HTN Stable 4. Acute gastritis Resolved Pt had EUS-EGD 02/05/13 which was normal EGD on 12/18-submucosal bleed 5. Probable rt hydrosalpinx -f/u w PCP/sales and leasing agent 6. Graves disease F/u w Endo Plan: Follow up: 3 month Seen and Discussed w/ Dr. Nic Salgado MD Nephrology Fellow Pager# [phone] LONNY DAVILA MD [address] [place] [address] [place] [id number] documented in this encounter Miscellaneous Notes * Addendum Note - Osmany Encinas MD - 02/25/2013 7:28 AM EDTAddended by: OSMANY ENCINAS on: 02/25/2013 07:28 AM Modules accepted: Level of Service documented in this encounter Plan of Treatment Not on file documented as of this encounter Visit Diagnoses Diagnosis DELVIS (acute kidney injury)- Primary Acute kidney failure, unspecified Anemia Anemia, unspecified HUS (hemolytic uremic syndrome) Hemolytic-uremic syndrome DVT (deep venous thrombosis) Acute venous embolism and thrombosis of unspecified deep vessels of lower extremity Graves disease Toxic diffuse goiter without mention of thyrotoxic crisis or storm documented in this encounter Care Teams Terminal Supervisor Relationship Specialty Start Date End Date Lonny Davila MD [address] [place] [address] [address] [place] [id number] PCP - General 01/13/13 12/09/23 marilyn noble Consulting Physician Gastroenterology 01/13/13 documented as of this encounter
--- OUTSIDE RECORDS SUMMARY | 2023-12-26 11:48 | XMS_ITS | Encounter Summary ---
Author Organization [facility] [place] [address] Care Team Providers Care Help Desk Consultant Name Role Phone Jason Davila MD Primary Care Provider Encounter Details Date Type Department Care Team (Latest Contact Info) Description 12/03/2023 Travel Social History Tobacco Use Types Packs/Day Years [...] on filedocumented in this encounter Care Teams Help Desk Consultant Relationship Specialty Start Date End Date Jason Davila MD [address] [place] [address] [place] [address] PCP - General 01/13/13 12/09/23 mairlyn noble Consulting Physician Gastroenterology 01/13/13 documented as of this encounter
--- OUTSIDE RECORDS SUMMARY | 2023-12-26 11:48 | XMS_ITS | Encounter Summary ---
Author Organization [facility] Address [facility] [place] [address] Care Team Providers Care Supervisor Pyrotechnic Loading Name Role Phone Jason Davila MD Primary Care Provider [phone] Encounter Details Date Type Department Care Team (Late st Contact Info) Description 02/05/2013 6:10 PM EDT Anesthesia Event [place] [address] Eli, Beck Lo MD [facility] [place] [address] Flynn French MD [facility] [place] [address] Anesthesia Record Procedure Summary Procedure Name Responsible Anesthesiologist Anesthesia Start Time Anesthesia Stop Time UPPER EUS- ENDOSCOPIC ULTRASOUND (WRVU 3.47) (Trunk) Sites, Beck Lo MD 02/05/13 1810 02/05/13 1834 Events Date Time Event Comment 02/05/2013 1739 1809 AN Verify 1810 Start 1813 An Start Data 1817 Anesthesia Ready 1834 an stop data 1834 Stop Meds Name Total lidocaine IV 20 mg propofol 400 mg lactated ringers 200 mL * Agents Name O2 Air O2 Auxiliary Flowmeter 1 * Blood No blood administrations on file. Lines, Drains, and Airways Type Details Placement Removal (RETIRED) PICC Single Lumen 12/27/12; 1212 12/27/12 1212 by Amarjit Brian, DRU (RETIRED) Peripheral IV Line - Single Lumen 02/05/13; 1759; 02/05/13; 1904 02/05/13 1759 by Megan Carpenter RN 02/05/13 190 by Jose Kaur RN documented in this encounter Social History Tobacco Use Types Packs/Day Years [...] PM EDT documented as of this encounter OR Notes * Anesthesia Postprocedure Evaluation - Beck Benitez MD - 02/05/2013 6:40 PM EDT Patient: Anum Henriquez Procedure(s) Performed: Procedure(s): UPPER EUS- ENDOSCOPIC ULTRASOUND EGD, UPPER GI ENDOSCOPY Actual Anesthetic: MAC Patient location: PACU Post-op pain: Adequate analgesia Post-op nausea: no nausea or vomiting Last Vitals: Filed Vitals: 02/05/13 1840 BP: 102/60 Pulse: 58 Resp: 16 Post-op cardiovascular and respiratory status: is stable Level of consciousness: awake, alert and oriented Complications: no apparent complications and tolerated the procedure well Fluid Status: normal * Anesthesia Preprocedure Evaluation - Flynn French MD - 02/05/2013 5:38 PM EDT Pre-Anesthesia Evaluation for: Anum Henriquez a 52 y.o. female. Procedure(s): UPPER EUS- ENDOSCOPIC ULTRASOUND EGD, UPPER GI ENDOSCOPY Patient Active Problem List Diagnosis ??? History of TTP (thrombotic thrombocytopenic purpura) ??? History of MRSA infection Line infection 12/2012, s/p vanc/dapto x 3 weeks ??? H/O Graves' disease Previously on methimazole, now in remission ??? Graves' ophthalmopathy ??? DVT (deep venous thrombosis) 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 Plans for full anticoagulation for 3-6 mos given hypercoagulability of underlying disease. ??? Cardiac abnormality December 2012 - readmitted after TTP/HUS for CHF picture. EF = 40% with global hypokinesis. 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 ??? Hemorrhagic colitis CT shows sparing of the sigmoid and rectum Past Medical History Diagnosis Date ??? Graves disease No past surgical history on file. History Substance Use Topics ??? Smoking status: Former Smoker -- 0.5 packs/day for 5 years Types: Cigarettes Quit date: 06/15/1978 ??? Smokeless tobacco: Never Used ??? Alcohol Use: No History Drug Use No Allergies Allergen Reactions ??? Erythromycin Base Medications: MAR and/or home medications have been reviewed. Physical Exam: There were no vitals filed for this visit. There is no height or weight on file to calculate BMI. Airway Assessment: Mallampati: II TM distance: >3 FB Neck ROM: full Cardiovascular Assessment: Pulmonary Assessment: Dental Assessment: Misc Assessment: Anesthesia Plan: ASA 3 MAC, with a(n) intravenous induction Region - Other Informed Consent: Anesthetic plan and risks discussed with patient. [facility]: documented in this encounter Plan of Treatment Not on file documented as of this encounter Visit Diagnoses Not on filedocumented in this encounter Administered Medications Inactive Administered Medications - up to 3 most recent administrations Medication Order MAR Action Action Date Dose Rate Site lactated ringers infusion CONTINUOUS PRN, Starting on Sun02/05/13 at 1810, Until Sun02/05/13 at 1834, Anesthesia Intra-op New Bag 02/05/2013 6:10 PM EDT mL lidocaine (PF) (XYLOCAINE) 100 mg/5 mL (2 %) injection PRN, Starting on Sun02/05/13 at 1800, Until Sun02/05/13 at 1834, Anesthesia Intra-op, Routine Given 02/05/2013 6:00 PM EDT 20 mg propofol (DIPRIVAN) 10 mg/mL bolus injection (Anesthesia) PRN, Starting on Sun02/05/13 at 1800, Until Sun02/05/13 at 1834, Anesthesia Intra-op Given 02/05/2013 6:15 PM EDT 200 mg Given 02/05/2013 6:00 PM EDT 200 mg documented in this encounter Care Teams Supervisor Pyrotechnic Loading Relationship Specialty Start Date End Date Jason Davila MD [address] [place] [address] [place] [address] PCP - General 01/13/13 12/09/23 marilyn noble Consulting Physician Gastroenterology 01/13/13 documented as of this encounter
--- OUTSIDE RECORDS SUMMARY | 2023-12-26 11:48 | XMS_ITS | Encounter Summary ---
Author Organization [facility] Address [address] [place] [address] Care Team Providers Care Paint Technician Name Role Phone Kemal Vee MD Primary Care Provider [phone] Encounter Details Date Type Department Care Team (Late st Contact Info) Description 11/24/2022 Lab Requisition [facility] Pathology & Laboratory Medicine - [address] [address] Outr Resulting Lab, Provider Social History Tobacco [...] Procedure Name Priority Date/Time Associated Diagnosis Comments FECAL BACTERIAL PATHOGENS BY PCR Routine 11/23/2022 11:00 EDT documented in this encounter Results * FECAL BACTERIAL PATHOGENS BY PCR (11/23/2022 11:00 EDT) Salmonella PCR Negative Negative 11/25/2022 14:17 EDT [facility] Shigella/Enteroin vasive E. coli Negative Negative 11/25/2022 14:17 EDT [facility] HN LAB CAMPYLOBACTER PCR Negative Negative 11/25/2022 14:17 EDT [facility] Shiga Toxin PCR Negative Negative 14:17 EDT [facility] Feces SPECIMEN FROM RECTUM / Unknown 11/23/2022 11:00 EDT 11/24/2022 21:25 EDT Provider Outr Resulting Lab MICROBIOLOGY - GENERAL ORDERABLES [facility] [address] [place] [address] documented in this encounter Visit Diagnoses Not on filedocumented in this encounter Care Teams Paint Technician Relationship Specialty Start Date End Date Kemal Vee MD [address] [place] [address] PCP - General 09/09/21 documented as of this encounter
--- OUTSIDE RECORDS SUMMARY | 2023-12-26 11:48 | XMS_ITS | Encounter Summary ---
Author Organization [facility] Address [facility] [place] [address] Care Team Providers Care Contract Driver Name Role Phone Jason Davila MD Primary Care Provider [phone] Reason for Visit * Reason Comments GI Problem Epigastric pain Encounter Details Date Type Department Care Team (Latest Contact Info) Description 05/22/2013 4:00 PM EST [place] [address] Susana Seals MD [facility] [place] [address] Epigastric pain (Primary Dx); TTP (thrombotic thrombocytopenic purpura); Elevated LFTs Discharge Disposition: Home Social History Tobacco Use [...] as of this encounter Progress Notes * Zain Mayfield MD - 05/23/2013 8:04 AM EST Reviewed case with fellow. Patient not seen. * Susana Seals MD - 05/22/2013 3:54 PM EST Gastroenterology Outpatient Progress Note Patient ID: Anum Henriquez is a 53 y.o. with PMH of Graves disease recently hospitalization forTTP-HUS c/w bilateral leg DVT's, right arm DVT (PICC line) on coumadin, started on PPI but still with presistent epigastric pain therefore further wkup revealed an elevated lipase/amylase with mildlyelevated IGG 4, underwent EUS with normal pancreatis. # Epigastric pain/dysphagia -12/2012: CT scan abd/pelvis IV contrast: 2 small lucencies in the liver most likely representing a simple cyst (series 3 image 8). The remainder of the liver, gallbladder, biliary tree, spleen, pancreas, kidneys, and adrenal glands appear normal. However, there is marked thickening of the colonic wall from the cecum to the sigmoid colon admitted for TTP-H[place] [facility] [place] -EGD: 12/2012:Gastric mucosal abnormality in the gastric body characterized by erythema/submucosal hemorrhage likely related to TTP -started on omeprazole 40mg daily -01/13/13: CT scan abd/pelvis: oral contrast only: despite the lack of colonic contrast opacification, it appears that the colonic inflammatory process has resolved. Probable right-sided hydrosalpinx. Further evaluation with transvaginal pelvic ultrasound is recommended when clinically warranted. -persistent epigastric pain 01/2013: lipase: 378-->178, amylase: 214, IgG4: 103 -EUS: no significant pathology in the entire pancreas. 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 He reports that her epigastric and dysphagia has completely resolved since acute illness and trial of PPI. She reportssensation of fullness intermittently in her epigastric area not associated with food. Denies any nausea/vomiting, odynophagia, heartburn symptoms but belching when she eats late dinner. Denies any bloating or abdominal distension. She has gained back her weight she loss during recently illness. Hassome belching at night when . Reports some redness of her eye thinks related to heating system at work. Review of Systems Constitutional: Negative for fever and unexpected weight change. HENT: Negative for mouth sores. Eyes: Negative for pain, +redness. Respiratory: Negative for cough and shortness of breath. Cardiovascular: Negative for chest pain and palpitations. Gastrointestinal: Negative for nausea, vomiting, abdominal pain, diarrhea, constipation and abdominal distention. Genitourinary: Negative for dysuria. Musculoskeletal: Negative for joint swelling and arthralgias. Skin: Negative for rash. Current Outpatient Prescriptions Medication Sig Dispense Refill ??? ondansetron (ZOFRAN) 8 mg tablet Take 8 mg by mouth as needed. ??? warfarin (COUMADIN) 5 mg tablet Take 2 tablets by mouth daily. 60 tablet 0 ??? acetaminophen (TYLENOL) 500 mg tablet Take 2 tablets by mouth every 6 hours as needed for Pain or Fever. 30 tablet ??? aspirin 81 mg chewable tablet Take 81 mg by mouth daily. 30 tablet ??? metoprolol succinate (TOPROL-XL) 100 mg XL tablet Take 1 tablet by mouth daily. 30 tablet 12 ??? [DISCONTINUED] alum-mag hydroxide-simeth (MAALOX) 200-200-20 mg/5 mL suspension Take 10 mLs by mouth 3 times daily as needed. 355 mL ??? [DISCONTINUED] LORazepam (ATIVAN) 0.5 mg tablet Take 1 tablet by mouth every 6 hours as needed.30 tablet 0 ??? omeprazole (PRILOSEC) 40 mg capsule Take 1 capsule by mouth daily. 30 capsule 11 ??? CALCIUM ORAL Physical Examination: General: Pleasant, cooperative, NAD HEENT: NC/AT, anicteric, MM CHEST: CTABL CVS: RRR, normal s1/s2 ABD: soft, non-tender, non-distended, NABS Rectal: deferred Extremities: WWP, no clubbing cyanosis or edema Skin: Warm and dry Labs: Reviewed in [facility]. Pertinent labs included below 05/22/2013: wbc: 4.7 H/H: 11.1/33.7 plt: 218 Na: 140 K: 4.1 Cl: 103 C02: 22 BUN/Cr: 19/1.25 PT/INR: 28.5/2.6 T.P/Albumin: 9.2/4.3 Tbili/Dbili: 0.1/0.2 AST/ALT: Alkphos: 60 Lipase: 378-->178-->77 Amylase: 214-->138 Impression: Anum Henriquez is a 53 y.o.with PMH of Graves disease recently hospitalization for TTP-HUS c/w bilateral leg DVT's, right arm DVT ( setting PICC line) on coumadin, epigastric pain found on EGD to have erythema/submucosal hemorrhage likely related to TTP started on PPI but still withpresistent epigastric pain therefore further wkup revealed an elevated lipase/amylase with mildly elevated IGG 4, underwent EUS with normal pancreatis. It's more likely non ulcerative dyspepsia whichmay have been related to acute illness from TTP with ?microemboli gastric mucosa which has now resolved. Her mildly elevated lipase/amylase and IGG4 raised the suspicion for autoimmune pancreatitis es pecially due to her hx of Graves disease however with normal CT scan of pancreas and normal EUS of pancreas it is less likely that she has autoimmune pancreatitis which requires (Gordon HISORt criteriafor diagnosis). It is reassuring the amylase and lipase has almost normalized and may have also prob ably due to poor clearance in her renal function and possible microemboli to pancrea. Recommendations #cont omeprazole 40mg with taper (40mg every other day for 2 weeks, then every 3 days for 2 weeks, off) to avoid rebound # repeat lipase, IGG 4 on next visit if persistently elevated with epigastric pain will repeat CT abd/pelvis to look for any changes in her pancreas # follow up in 1 year sooner if needed Susana Seals MD Gastroenterology Fellow documented in this encounter Plan of Treatment Not on file documented as of this encounter Procedures Procedure Name Priority Date/Time Associated Diagnosis Comments IGG 4 Routine 05/22/2013 4:34 PM EST Epigastric pain documented in this encounter Results * (ABNORMAL) IgG 4 (05/22/2013 4:34 PM EST) IgG 4 90.6(H) 4.0 - 86.0 mg/dL [facility] Comment: Test Performed by Gabbie Gates, [facility], [address] [place], [place] Ankit Chambers M.D., Ph.D., Director of Laboratories , [place] [id number] Blood specimen (specimen) 05/22/2013 4:34 PM EST 05/23/2013 8:44 AM EST Narrative Resulting Agency Comment Spec In Lab Zain Mayfield MD IMMUNOLOGY ORDERABLE S [facility] documented in this encounter Visit Diagnoses Diagnosis Epigastric pain- Primary Abdominal pain, epigastric 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
--- OUTSIDE RECORDS SUMMARY | 2023-12-26 11:48 | XMS_ITS | Encounter Summary ---
Author Organization [facility] Address [address] [place] [address] Care Team Providers Care Porter Sample Case Name Role Phone Kemal Vee MD Primary Care Provider Encounter Details Date Type Department Care Team (Late st Contact Info) Description 11/25/2019 Lab Requisition [facility] Pathology & Laboratory Medicine - [facility] [address], [place] [id number] Outr Resulting Lab, Provider Social History Tobacco Use Types Packs/Day Years Used Date Smoking Tobacco: Never Assessed Sex and Gender Information Value Date Recorded Sex Assigned at Not on file Gender Identity Not on file Sexual Orientation Not on file documented as of this encounter Plan of Treatment Not on file documented as of this encounter Procedures Procedure Name Priority Date/Time Associated Diagnosis Comments DO NOT ORDER STANDALONE - BROAD COVID TEST Today 11/25/2019 8:30 EDT COVID-19 TESTING Routine 11/25/2019 8:30 EDT documented in this encounter Results * DO NOT ORDER STANDALONE - BROAD COVID TEST (11/25/2019 8:30 EDT) COVID-19 rt-PCR Result NEGATIVE Negative 11/26/2019 22:45 EDT [facility] Comment: 2019-novel Coronavirus (2019-nCoV) not detected by the qRT-PCR assay. Consider testing for other respiratory viruses or re-collecting for 2019-nCoV testing. Note: Optimum timing for peak viral levels during infections caused by 2019-nCoV have not been determined. Collection of multiple specimens from the same patient may be necessary to detect the virus. Limitations Positive results are indicative of active infection with SARS-CoV-2 but do not rule out bacterial infection or co-infection with other viruses. The agent detected may not be the definite cause of disease. In addition, detection of viral RNA may not indicate the presence of infectious virus or that SARS-CoV-2 is the causative agent for clinical symptoms. Negative results do not preclude SARS-CoV-2 infection and should not be used as the sole basis for patient management decisions. Negative results must be combined with clinical observations, patient history, and epidemiological information. False negative results may also occur if amplification inhibitors are present in the specimen or if inadequate numbers of organisms are present in the specimen. Optimum specimen types and timing for peak viral levels during infections caused by SARS-CoV-2 have not been fully determined. Collection of multiple specimens (types and time points) from the same patient may be necessary to detect the virus. The test was validated for use with upper respiratory specimens obtained via nasopharyngeal or oropharyngeal swabs in VTM, UTM, M4, M5, M6, saline, and MTM media. The performance of this test has not been established for other specimens. Specimens collected using other FDA recommended Specimen Collection Materials listed in the FDA COVID-19 [employer] communication (September 04, 2019) are processed with the caveat that they were not all validated for use with this test and the result must be interpreted in this context. Furthermore, a false negative results may occur if a specimen is improperly collected, transported or handled. If the virus mutates in the RT-PCR target region, SARS-CoV-2 may not be detected or may be detected less predictably. Inhibitors or other types of interference may produce a false negative result. An interference study evaluating the effect of common cold medications was not performed. This test is not FDA-cleared but its performance characteristics were established by our CLIA-certified, CAP-accredited, high complexity laboratory in accordance with CLIA regulations, [employer] (CAP) guidelines (Aug 28, 2019), and FDA guidance (Aug 09, 2019). This test is only for use under the Food and Drug Administration's Emergency Use Authorization. Swab ENTIRE NASOPHARYNX / Unknown 11/25/2019 8:30 EDT 11/25/2019 19:31 EDT Provider Outr Resulting Lab MICROBIOLOGY - GENERAL ORDERABLES [place], [place] * COVID-19 TESTING (11/25/2019 8:30 EDT) [facility] COVID-19 rt-PCR Result NEGATIVE Negative 11/27/2019 7:05 EDT [facility] Comment: 2019-novel Coronavirus (2019-nCoV) not detected by the qRT-PCR assay. Consider testing for other respiratory viruses or re-collecting for 2019-nCoV testing. Note: Optimum timing for peak viral levels during infections caused by 2019-nCoV have not been determined. Collection of multiple specimens from the same patient may be necessary to detect the virus. Limitations Positive results are indicative of active infection with SARS-CoV-2 but do not rule out bacterial infection or co-infection with other viruses. The agent detected may not be the definite cause of disease. In addition, detection of viral RNA may not indicate the presence of infectious virus or that SARS-CoV-2 is the causative agent for clinical symptoms. Negative results do not preclude SARS-CoV-2 infection and should not be used as the sole basis for patient management decisions. Negative results must be combined with clinical observations, patient history, and epidemiological information. False negative results may also occur if amplification inhibitors are present in the specimen or if inadequate numbers of organisms are present in the specimen. Optimum specimen types and timing for peak viral levels during infections caused by SARS-CoV-2 have not been fully determined. Collection of multiple specimens (types and time points) from the same patient may be necessary to detect the virus. The test was validated for use with upper respiratory specimens obtained via nasopharyngeal or oropharyngeal swabs in VTM, UTM, M4, M5, M6, saline, and MTM media. The performance of this test has not been established for other specimens. Specimens collected using other FDA recommended Specimen Collection Materials listed in the FDA COVID-19 [employer] communication (September 04, 2019) are processed with the caveat that they were not all validated for use with this test and the result must be interpreted in this context. Furthermore, a false negative results may occur if a specimen is improperly collected, transported or handled. If the virus mutates in the RT-PCR target region, SARS-CoV-2 may not be detected or may be detected less predictably. Inhibitors or other types of interference may produce a false negative result. An interference study evaluating the effect of common cold medications was not performed. This test is not FDA-cleared but its performance characteristics were established by our CLIA-certified, CAP-accredited, high complexity laboratory in accordance with CLIA regulations, [employer] (CAP) guidelines (Aug 28, 2019), and FDA guidance (Aug 09, 2019). This test is only for use under the Food and Drug Administration's Emergency Use Authorization. Performing Lab [facility] 11/27/2019 7:05 EDT [facility] Swab ENTIRE NASOPHARYNX / Unknown 11/25/2019 8:30 EDT 11/25/2019 19:31 EDT Provider Outr Resulting Lab MICROBIOLOGY - GENERAL ORDERABLES [facility] [address] [place] [address] [facility] [place], [place] documented in this encounter Visit Diagnoses Not on filedocumented in this encounter Care Teams Porter Sample Case Relationship Specialty Start Date End Date Kemal Vee MD [address] [place] [address] PCP - General 09/09/21 documented as of this encounter
--- OUTSIDE RECORDS SUMMARY | 2023-12-26 11:48 | XMS_ITS | Encounter Summary ---
Author Organization [facility] [place] [address] Care Team Providers Care Tenoner Operator Name Role Phone Jason Davila MD Primary Care Provider [phone] Encounter Details Date Type Department Care Team (Late st Contact Info) Description 10/16/2023 External Results [place] [address] Social History Tobacco Use Types Packs/Day Years [...] Procedure Name Priority Date/Time Associated Diagnosis Comments EKG 12-LEAD Routine 07/24/2023 9:13 AM EST documented in this encounter Results * EKG 12 Lead (07/24/2023 9:13 AM EST) Historical Provider ECG ORDERABLES documented in this encounter Visit Diagnoses Not on filedocumented in this encounter Care Teams Tenoner Operator Relationship Specialty Start Date End Date Jason Davila MD [address] [place] [id number] PCP - General 01/13/13 12/09/23 marilyn noble Consulting Physician Gastroenterology 01/13/13 documented as of this encounter
--- OUTSIDE RECORDS SUMMARY | 2023-12-26 11:48 | XMS_ITS | Encounter Summary ---
Author Organization [facility] [place] [address] Care Team Providers Care Manager Corporate Marketing Name Role Phone Jason Davila MD Primary Care Provider [phone] Encounter Details Date Type Department Care Team (Late st Contact Info) Description 08/13/2014 Telephone Hematology Oncology at [address] [address] Liz Navarro RN Social History Tobacco Use Types Packs/Day Years [...] encounter Miscellaneous Notes * Telephone Encounter - Liz Navarro RN - 08/13/2014 3:54 PM EST Phone call to patient, per Dr. Romero, to let her know that the labs that she had drawn are normal. No follow-up here is necessary. Patient had no questions and agrees with this plan. She was reminded to call with any new concerns or need to see us. documented in this encounter Plan of Treatment Not on file documented as of this encounter Visit Diagnoses Not on filedocumented in this encounter Care Teams Manager Corporate Marketing Relationship Specialty Start Date End Date Jason Davila MD [address] [place] [id number] PCP - General 01/13/13 12/09/23 marilyn noble Consulting Physician Gastroenterology 01/13/13 documented as of this encounter
--- OUTSIDE RECORDS SUMMARY | 2023-12-26 11:48 | XMS_ITS | Encounter Summary ---
Author Organization [facility] Address [facility] [place] [address] Care Team Providers Care Woodwork Teacher Name Role Phone Lonny Davila MD Primary Care Provider Reason for Visit * Reason Comments Follow-up Encounter Details Date Type Department Care Team (Late st Contact Info) Description 04/15/2014 9:00 AM EST Follow-Up Hematology Oncology at [address] [address] Fabi Romero MD [facility] DR HEMATOLOGY/[place] [address] History of TTP (thrombotic thrombocytopenic purpura) (Primary Dx) Discharge Disposition: Home Social History Tobacco Use [...] Sign Reading Time Taken Comments Blood Pressure 110/69 04/15/2014 9:04 AM EST Pulse 60 04/15/2014 9:04 AM EST Temperature 37.1 ??C (98.8 ??F) 04/15/2014 9:04 AM ES T Respiratory Rate 16 04/15/2014 9:04 AM EST Oxygen Saturation 98% 04/15/2014 9:04 AM EST Inhaled Oxygen Concentration - - Weight 66 kg (145 lb 8 oz) 04/15/2014 9:04 AM ES T Height 170.2 cm (5' 7.01) 04/15/2014 9:04 AM ES T Body Mass Index 22.78 04/15/2014 9:04 AM EST documented in this encounter Progress Notes * Fabi Romero MD - 04/15/2014 9:36 AM [place] [address] FOLLOW-UP PATIENT EVALUATION PROBLEM LIST: Patient Active Problem List Diagnosis ??? History [...] shows sparing of the sigmoid and rectum INTERIM HISTORY OF PRESENT ILLNESS: It was my pleasure to see Anum Henriquez back in clinic today. Anum Henriquez is a 54 y.o. 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 Last year, she had a very complicated hospital course. At our last appt she had multiple medical problems and complaints - almost all of which have resolved over time. Upper abd pain has resolved. EGD neg X 2 but resolved spontaneously. Never found an etiology DVT - completed 6 mos of anticoagulation. Father of gastric CA recently so she is exhausted. He refused treatment and elected hospice. Her mother is having a hard time. They had been 64 years. She is physically and emotionally exhausted. Discussed fatique of care taking. ROS Energy level: normal Pain: Stomach pain resolved. Some tendonitis in shoulders. Appetite: Poor Fevers/chills/sweats:No Bruising/bleeding/melena:No Recent infections:No HEENT: negative Nausea/vomiting/diarrhea/constipation: Resolved SOB/GUEVARA/chest pain:stable pulmonary - off all O2 Change in adenopathy or other masses:none Unexpected weight loss or gain: normalized Skin rashes or petechiae:No Musculoskeletal complaints:None Extremities: Negative upper and lower bilaterally Neurologic symptoms: Some dizziness which she wonders if it could be due to the stress and fatique.Head feels like it is spinning - not constant. Not orthostatic. Mood: Normal - appropriate sadness over her father's recent passing Sleep: uses ambien for sleep with some help MEDS: Outpatient Prescriptions Marked as Taking for the 04/15/14 encounter (Follow-Up) with Fabi Romero MD Medication Sig Dispense Refill ??? OMEGA 8-NIF-MIN-FISH OIL ORAL Take by mouth. ??? GLUC/CHND/OM3/DHA/EPA/FISH/STR (GLUCOSAMINE CHONDROITIN PLUS ORAL) Take by mouth. ??? zolpidem (AMBIEN) 10 mg Tablet Take 5 mg by mouth nightly as needed. ??? acetaminophen (TYLENOL) 500 mg tablet Take 2 tablets by mouth every 6 hours as needed for Pain or Fever. 30 tablet ??? aspirin 81 mg chewable tablet Take 81 mg by mouth daily. 30 tablet ??? metoprolol succinate (TOPROL-XL) 100 mg XL tablet Take 1 tablet by mouth daily. 30 tablet 12 ??? CALCIUM ORAL Allergies: Allergies Allergen Reactions ??? Erythromycin Base INTERIM SOCIAL HISTORY Changes in job, home situation, tobacco or alcohol use: see HPI PHYSICAL EXAM BP 110/69 Pulse 60 Temp 37.1 ??C (98.8 ??F) (Oral) Resp 16 Ht 170.2 cm (5' 7.01) Wt 65.998 kg (145 lb 8 oz) BMI 22.78 kg/m2 SpO2 98% Body surface area is 1.77 meters squared. GENERAL: Anum Henriquez appears well and is in no acute distress. ENT: Oral pharynx clear. EYES: LAUREN NECK: Supple without adenopathy. AXILLARY: no adenopathy OTHER LYMPH: no adenopathy CARDIAC: Regular rate and rhythm without S3,S4 or murmurs. LUNGS: Clear to auscultation./percussion ABDOMEN: Soft and non-tender without hepatosplenomegaly or masses. EXTREMITIES: No cyanosis, clubbing, edema or calf tenderness. SKIN: No bruises or petechiae. NEUROLOGICAL: Alert and oriented to person, place and time. MUSCULOSKELETAL: No spinal or chest wall tenderness. LABORATORY STUDIES 10/22/13 Wbc 3.9 hgb 12.1 plt 229 MCV 88.4 Creat 1.2 Labs from 12/05/13 - pt brought report w/ her from insurance screening Creat 1.15 LFT Normal LDH 244 RADIOLOGY STUDIES REVIEWED: none ASSESSMENT/PLAN: It was my pleasure to see Ms. Henriquez in clinic today. I initially met Anum while she was hospitalized for her initial presentation of TTP. Her history is as follows: Anum initially presented on December 13, 2012, after several days of hospitalization at [facility]. She initially presented there with bloody diarrhea and abdominal distention. During her course there, she developed a drop in her hemoglobin and platelet count and slowly developed mild renal insufficiency. At that point, TTP was suspected, and she was transferred to [facility]. 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 She was hospitalized at [facility] from December 13 to December 27, 2012. Her ADAMSTS-13 came back normal, and plasma exchange was discontinued. Over the course of the hospitalization, her creatinine seemed to improve. Her platelet count parminder finally above 100,000, and her hemoglobin slowly parminder. Her renal function improved a bit, but she remained with a baseline creatinine of about 2 to 2.2. All stool cultures were confirmed to be negative. 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 She had some mental status changes, but this was also complicated by medications such as Benadryl, so it was unclear whether she ever had clear neurologic symptoms of her TTP. She went home on December 27, 2012, but came back to the hospital on December 30, 2012, with what eventually turned out to be volume overload as well as CHF. Her EF was 40% with global hypokinesis, and pulmonary hypertension was noted. Acute myocardial infarction was ruled out. The patient was diuresed and the final diagnosis was thought to be possibly due to microthrombi involving both the cardiac vessels and the pulmonary vessels. Of note, the patient also had bilateral calf DVT diagnosed on her first hospitalization, and she has been on anticoagulation since that time. Her dry weight is thought to be about 53.8 kg at this point. Her problem list and plan are listed below. ?? 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 She will have them drawn later this week and I will call her next week w/there results. If they are all normal then I would not plan any more f/u with Hematology for TTP, although I remain available if she ever relapses. ?? Renal insufficiency: Her creatinine has continued to improve and is now near normal at 1.2. ?? Endocrinology: She has a history of Graves disease, and She will follow up with Endocrinology. ?? Acute systolic CHF: As listed above, her EF was approximately 40% with global hypokinesis. Repeat TTE later this week. Still on metoprolol. Her last EF was in [place] in Spring 2013 and she statesthat her EF was 50-55%. Followed by [facility]. ?? Abdominal complaints: resolved over time. No etiology determined. ?? Bilateral DVT: She has completed her 6 mos of anticoagulation ? Dizziness - she describe what sounds most like vertigo - not orthostatic or positional. Unlikelyto be related to TTP but will check labs just to be sure. If labs are normal then I recommend f/u with her PCP. ?? Anum is doing beautifully and there are no signs of relapse. I explained that TTP can relapse and if it does, it often does so in the first months post- diagnosis. She is now over a year past the hospitalization and her risk of relapse decreases. If she notes fatique or easy bleeding/bruising then she should call her PCP and have labs checked. Check labs (cbc, cmp, ldh, retic) at [facility] later this week and if normal then no f/u with Heme needed. She agrees to plan. We will call her next week with the lab results. total time: 30 time in counsellin Copy LONNY DAVILA MD documented in this encounter Procedure Notes * Provider, Scanning - 04/15/2014 12:00 AM ESTAssociated Order(s): SCAN DOC: LAB documented in this encounter Plan of Treatment Not on file documented as of this encounter Procedures Procedure Name Priority Date/Time Associated Diagnosis Comments LAB SCAN 04/15/2014 12:00 AM EST documented in this encounter Results * SCAN DOC: LAB (04/15/2014 12:00 AM EST) Narrative 04/15/2014 12:00 AM EST Procedure Note Provider, Scanning - 04/15/2014 12:00 AM EST Scanning Provider MEDIA MGR SCAN EXT O RDR/RSLT documented in this encounter Visit Diagnoses Diagnosis History of TTP (thrombotic thrombocytopenic purpura)- Primary Personal history of diseases of blood and blood-forming organs documented in this encounter Care Teams Woodwork Teacher Relationship Specialty Start Date End Date Lonny Davila MD [address] [place] [address] [place] [address] PCP - General 01/13/13 12/09/23 marilyn noble Consulting Physician Gastroenterology 01/13/13 documented as of this encounter
--- OUTSIDE RECORDS SUMMARY | 2023-12-26 11:48 | XMS_ITS | Encounter Summary ---
Author Organization Former[facility] [place] [address] Care Team Providers Care Electrical Electronics Technician Name Role Phone Jason Davila MD Primary Care Provider [phone] Encounter Details Date Type Department Care Team (Late st Contact Info) Description 05/22/2013 Orders [place] [address] Cristal Hernandez, RN DEPT OF GASTROENTEROLOGY Elevated LFTs Social History Tobacco Use Types Packs/Day Years [...] as of this encounter Visit Diagnoses Diagnosis Elevated LFTs Other abnormal blood chemistry documented in this encounter Care Teams Electrical Electronics Technician Relationship Specialty Start Date End Date Jason Davila MD [address] [place] [address] [place] [address] PCP - General 01/13/13 12/09/23 marilyn noble Consulting Physician Gastroenterology 01/13/13 documented as of this encounter
--- OUTSIDE RECORDS SUMMARY | 2023-12-26 11:48 | XMS_ITS | Encounter Summary ---
Author Organization [facility] Address [facility] [place] [address] Care Team Providers Care Entrepreneurial Finance Professor Name Role Phone Lonny Davila MD Primary Care Provider [phone] Reason for Visit * Reason Comments Acute Kidney Injury Encounter Details Date Type Department Care Team (Late st Contact Info) Description 05/22/2013 1:30 PM EST Follow-Up Nephrology [place] [address] Shiv Salgado MD [facility] [place] [address] Renal insufficiency (Primary Dx) Discharge Disposition: Home Social History [...] Sign Reading Time Taken Comments Blood Pressure 122/72 05/22/2013 1:38 PM EST Pulse 56 05/22/2013 1:38 PM EST Temperature - - Respiratory Rate - - Oxygen Saturation - - Inhaled Oxygen Concentration - - Weight 64.4 kg (142 lb) 05/22/2013 1:38 PM EST Height - - Body Mass Index 22.24 01/22/2013 3:19 PM EDT documented in this encounter Progress Notes * Osmany Encinas MD - 05/27/2013 6:00 PM EST The relevant details regarding Anum Henriquez were reviewed with Dr. Salgado. The assessment andplan were formulated in discussion with me and I agree with them as documented, with the following additions. I have seen and examined the patient, providing the ulloa components as outlined below. I agree with Dr. Salgado's exam findings. Kidney function has shown further improvement. Plan as outlined. * Shiv Salgado MD - 05/22/2013 1:02 PM EST [facility] Nephrology/Hypertension Follow Up Anum Henriquez [id number] ID: [id number] y.o. female for f/u visit for TTP. 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 (treated with plasma exchange *7-stopped after normal [id number]); pt got MRI w [facility] because of [...] 12/18/12- submucosal bleed EUS-EGD 02/05/13-no abnormalities Subjective: has some abd pain but better with omeprazole, no n/v; urinating well, no dark colored urine And blood in urine ROS: -no fever, chills, night sweats -no headache, blurring of vision, diplopia -no dysphagia, hearing problems -no chest pain, palpitation, no GUEVARA, orthopnea -no cough or SOB -intermittent abdominal pain improved with ppi, no nausea,vomiting or diarrhea -no rash -no neuropathy -no [...] 3 times dailyas needed. 01/03/13 Yes Flynn rFausto MD aspirin 81 mg chewable tablet Take [...] upset, pain). 01/03/13 01/13/13 Flynn Frausto MD Mdjhncgsmkf-Hfxhzrphz-Rwe C-Mn 500-400 mg Cap 12/03/09 01/13/13 Allergies / ADRs: Allergies Allergen Reactions ??? Erythromycin Base PHYSICAL EXAM: Filed Vitals: 05/22/13 1338 BP: 122/72 Pulse: 56 Gen - AAO x 3 in NAD [...] Imaging: Lab Results Component Value Date CREATININE 1.24* 05/22/2013 BUN 19* 05/22/2013 NA 140 05/22/2013 K 4.1 05/22/2013 CL 103 05/22/2013 CO2 22 05/22/2013 Lab Results Component Value Date WBC 4.7 05/22/2013 HGB 11.1* 05/22/2013 HCT 33.7* 05/22/2013 MCV 86.9 05/22/2013 PLATELET 218 05/22/2013 Lab Results Component Value Date ALT 19 05/22/2013 AST 32* 05/22/2013 ALKPHOS 60 05/22/2013 BILITOT 0.2 05/22/2013 urine dipstick: 1.010. Ph 5 trace blood and rest negative including protein; sediments bland, no RBCs noted Impression/ Plan: 1. 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 DELVIS, resolved With some residual renal insufficiency, cr down to 1.2; anticipate to improvement Cr is 1.3 ( February and April) 3. HTN Stable 4. Acute gastritis Resolved Pt had EUS-EGD 02/05/13 which was normal EGD on 12/18-submucosal bleed 5. Probable rt hydrosalpinx -f/u w PCP/geologic technician 6. Graves disease F/u w Endo Plan: Follow up: 6 months Seen and Discussed w/ Dr. Nic Salgado MD Nephrology Fellow Pager# [phone] LONNY DAVILA MD [address] [place] [address] [place], [place] [id number] documented in this encounter Miscellaneous Notes * Addendum Note - Osmany Encinas MD - 05/27/2013 6:01 PM ESTAddended by: OSMANY ENCINAS on: 05/27/2013 06:01 PM Modules accepted: Level of Service documented in this encounter Plan of Treatment Not on file documented as of this encounter Procedures Procedure Name Priority Date/Time Associated Diagnosis Comments LIPASE STAT 05/22/2013 3:25 PM EST AMYLASE STAT 05/22/2013 3:25 PM EST HEPATIC FUNCTION PANEL STAT 05/22/2013 3:25 PM EST BASIC METABOLIC PANEL (NON-FASTING) STAT 05/22/2013 3:25 PM EST Renal insufficiency DIFFERENTIAL, AUTOMATED Routine 05/22/2013 1:15 PM EST CBC (WITH DIFF) Routine 05/22/2013 1:15 PM EST Renal insufficiency documented in this encounter Results * (ABNORMAL) Amylase (05/22/2013 3:25 PM EST) Amylase 138(H) 28 - 100 unit/L CERNER MILLENNIUM Blood specimen (specimen) 05/22/2013 3:25 PM EST 05/22/2013 3:40 PM EST Narrative Resulting Agency Comment Spec In Lab Osmany Encinas MD CHEMISTRY ORDERAB LES Performing Organization Address City/[facility]/ZIP Co de Phone Number CERNER MILLENNIUM * (ABNORMAL) Lipase (05/22/2013 3:25 PM EST) Lipase 77(H) 0 - 60 unit/L CERNER MILLENNIUM Blood specimen (specimen) 05/22/2013 3:25 PM EST 05/22/2013 3:40 PM EST Narrative Resulting Agency Comment Spec In Lab Osmany Encinas MD CHEMISTRY ORDERAB LES Performing Organization Address [facility] Co de Phone Number CERNER MILLENNIUM * (ABNORMAL) Hepatic Function Panel (05/22/2013 3:25 PM EST) Total Protein 7.5 6.4 - 8.3 gm/dL CERNER MILLENNIUM Albumin 4.3 3.2 - 5.2 gm/dL CERNER MILLENNIUM AST 32(H) 0 - 30 unit/L CERNER MILLENNIUM ALT 19 0 - 30 unit/L CERNER MILLENNIUM Alk Phos 60 40 - 104 unit/L CERNER MILLENNIUM Total Bilirubin 0.2 0.2 - 1.3 mg/dL CERNER MILLENNIUM Bili, Direct <0.1 0.0 - 0.3 mg/dL CERNER MILLENNIUM Blood specimen (specimen) 05/22/2013 3:25 PM EST 05/22/2013 3:40 PM EST Narrative Resulting Agency Comment Spec In Lab Osmany Encinas MD CHEMISTRY ORDERAB LES Performing Organization Address City/[facility]/ZIP Co de Phone Number CERNER MILLENNIUM * (ABNORMAL) Basic Metabolic Panel (non-fasting) (05/22/2013 3:25 PM EST) [facility] Glucose Lvl 85 60 - 199 mg/dL CERNER MILLENNIUM Comment:Diabetes: >=200 mg/d L plus symptoms BUN 19(H) 8 - 18 mg/dL CERNER MILLENNIUM Creatinine 1.24(H) 0.70 - 1.20 mg/dL CERNER MILLENNIUM Comment: Please note that the pediatric reference intervals supplied above were not validated at [facility]. Results from pediatric patients should be interpreted in conjunction to the patient's age, height and muscle mass. Sodium 140 135 - 145 mmol/L CERNER MILLENNIUM Potassium 4.1 3.5 - 5.0 mmol/L CERNER MILLENNIUM Comment: Please note: ??Patients with WBC >100,000 may have falsely elevated Potassium levels. ??For accurate Potassium quantification in these patients send serum separator tube (gold top) for subsequent determinations. ??Contact the Clinical Chemistry Laboratory if there are any questions. Chloride 103 98 - 107 mmol/L CERNER MILLENNIUM CO2 22 22 - 31 mmol/L CERNER MILLENNIUM Anion Gap 15 5 - 15 mmol/L CERNER MILLENNIUM Calcium 9.2 8.5 - 10.5 mg/dL CERNER MILLENNIUM Estimated GFR 45(L) >=60 CERNER MILLENNIUM Comment: This estimated GFR (eGFR) value was calculated using the MDRD equation which has been validated on patients between the ages of 18 and 70. The MDRD should not be used to assess kidney function in patients < 18 years of age or in patients with extremes of body mass, or in patients with acute kidney failure. This value should be multiplied by 1.2 for patients. For further information please copy and paste the following links into your internet browser. http://www.nkdep.nih.gov/lab-evaluation.shtml http://www.kidney.org/professionals/ Blood specimen (specimen) 05/22/2013 3:25 PM EST 05/22/2013 3:37 PM EST Narrative Resulting Agency Comment Spec In Lab Osmany Encinas MD CHEMISTRY ORDERAB LES [facility] * Differential, Automated (05/22/2013 1:15 PM EST) Neutrophils % 56.0 34.0 - 71.0 % CERNER MILLENNIUM Neutr Abs (ANC) 2.63 1.50 - 6.30 x10(3)/mcL CERNER MILLENNIUM Lymphocytes % 30.4 19.0 - 53.0 % CERNER MILLENNIUM Lymphocytes Abs 1.4 1.0 - 3.6 x10(3)/mcL CERNER MILLENNIUM Monocytes % 7.0 4.0 - 13.0 % CERNER MILLENNIUM Monocyte Abs 0.3 0.2 - 1.0 x10(3)/mcL CERNER MILLENNIUM Eosinophils % 6.2 0.0 - 7.0 % CERNER MILLENNIUM Eosinophils Abs 0.3 0.0 - 0.5 x10(3)/mcL CERNER MILLENNIUM Basophils % 0.4 0.0 - 2.0 % CERNER MILLENNIUM Basophils Abs 0.0 0.0 - 0.2 x10(3)/mcL CERNER MILLENNIUM Immature Gran % 0.00 0.00 - 0.66 % CERNER MILLENNIUM Comment: Immature granulocytes(IG's)percentage and absolute count will include metamyelocytes, myelocytes, and promyelocytes. Blood smears from CBCs yielding IG's will be scanned manually for concordance. If this scan disagrees with the automated IG or if promyelocytes are noted, a manual differential will be performed. Petty Gran Abs 0.00 0.00 - 0.05 x10(3)/mcL CERNER MILLENNIUM Blood specimen (specimen) 05/22/2013 1:15 PM EST 05/22/2013 1:22 PM EST Osmany Encinas MD HEMATOLOGY ORDERA BLES CERNER ISRRAELENNIUM * (ABNORMAL) CBC (with Diff) (05/22/2013 1:15 PM EST) WBC 4.7 4.0 - 10.0 x10(3)/mcL CERNER MILLENNIUM RBC 3.88(L) 3.93 - 5.22 x10(6)/mcL CERNER MILLENNIUM Hemoglobin 11.1(L) 11.2 - 15.7 gm/dL CERNER MILLENNIUM Hematocrit 33.7(L) 34.0 - 45.0 % CERNER MILLENNIUM MCV 86.9 79.0 - 94.0 fL CERNER MILLENNIUM MCH 28.6 26.6 - 32.2 pg CERNER MILLENNIUM MCHC 32.9 32.0 - 36.5 gm/dL CERNER MILLENNIUM Platelets 218 145 - 370 x10(3)/mcL CERNER MILLENNIUM RDWSD 40.2 35.0 - 46.0 fL CERNER MILLENNIUM RDWCV 12.7 10.9 - 14.4 % CERNER MILLENNIUM MPV 10.0 9.0 - 12.0 fL CERNER MILLENNIUM Blood specimen (specimen) 05/22/2013 1:15 PM EST 05/22/2013 1:22 PM EST Narrative Resulting Agency Comment Spec In Lab Osmany Encinas MD HEMATOLOGY ORDERA BLES BAR NOE documented in this encounter Visit Diagnoses Diagnosis Renal insufficiency- Primary Unspecified disorder of kidney and ureter documented in this encounter Care Teams Entrepreneurial Finance Professor Relationship Specialty Start Date End Date Lonny Davila MD [address] [place] [address] [place] [address] PCP - General 01/13/13 12/09/23 marilyn noble Consulting Physician Gastroenterology 01/13/13 documented as of this encounter
--- OUTSIDE RECORDS SUMMARY | 2023-12-26 11:48 | XMS_ITS | Clinical Summary ---
Author Organization [facility] Address [facility] [place] [address] Care Team Providers Care Wire Galvanizer Name Role Phone Kemal Vee MD Primary Care Provider [phone] Allergies Active Allergy Reactions Criticality Noted Date Comments Erythromycin Base Medications Medication Sig Dispensed Refills Start Date End Date Status CALCIUM ORAL 12/03/2009 Active acetaminophen (TYLENOL) 500 mg tablet Take 2 tablets by mouth every 6 hours as needed for Pain or Fever. 30 tablet 01/03/2013 Active aspirin 81 mg chewable tablet Take 81 mg by mouth daily. 30 tablet 01/03/2013 Active metoprolol succinate (TOPROL-XL) 100 mg XL tablet Take 1 tablet by mouth daily. 30 tablet 12 01/03/2013 Active OMEGA 3-OYS-VDK-FISH OIL ORALIndications:History of TTP (thrombotic thrombocytopenic purpura) Take by mouth. Active GLUC/CHND/OM3/DHA/EPA/FI SH/STR (GLUCOSAMINE CHONDROITIN PLUS ORAL)Indications:History of TTP (thrombotic thrombocytopenic purpura) Take by mouth. Active zolpidem (AMBIEN) 10 mg TabletIndications:Histor y of TTP (thrombotic thrombocytopenic purpura) Take 5 mg by mouth nightly as needed. 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 Plans for full anticoagulation for 3-6 mos given hypercoagulability of underlying disease. Cardiac abnormality 01/08/2013 Overview (01/08/2013): December 2012 - readmitted after TTP/HUS for CHF picture. EF = 40% with global hypokinesis. 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 Hemorrhagic colitis 12/13/2012 Overview (12/13/2012): CT shows sparing of the sigmoid and rectum Resolved Problems Problem Noted Date Diagnosed Date Resolved Date MRSA (methicillin resistant Staphylococcus aureus) infection 01/08/2013 01/14/2013 Overview (01/08/2013): Line infection 12/2012. Treated with vanco/daptomycin X 3 weeks. Completed 01/14/13. Bloody diarrhea 01/08/2013 01/14/2013 Overview (01/08/2013): December 2012 in setting of TTP. Culture negative. CT with colonic thickening. Abdominal pain 01/08/2013 01/14/2013 Overview (01/08/2013): Initially diffuse with TTP then localized to upper abdomen/epigastric region. Started with onset of bloody diarrhea and TTP. Persisted after improvement in GI sx and counts. EGD with mucosal hemorrhage and hyperemic mucosa. 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 Developed thrombocytopenia, DELVIS, microangiopathic hemolytic anemia acutely. Elevated LDH. + schistocytes on smear. Treatment: plasma exchange started 12/14/12. ADAMTS-13 activity normal, therefore plasma exchange discontinued. All stool cx negative (including Ecoli 0157, CDiff, Yersinia, Salmonella, Shigella). Slow improvement in counts and decrease in LDH. Possible mental Status changes (complicated by medication side effects in house). DVT while in house. Anticoagulation started. Readmitted 2 days after initial discharge. Thought to be CHF from volume overload, transfusion overload, and probable microthrombi of cardiac vessels and possible pulmonary vasculature. VQ scan indeterminant. MRSA line infection treated with 3 weeks Vanco/daptomycin - due to be completed 01/14/13 Thrombocytopenia 12/13/2012 01/14/2013 Hyperthyroidism 12/13/2012 01/14/2013 Overview (12/14/2012): Graves disease stable on methimazole for 10+ years. CIS - hyperthyroidism, graves 12/06/2009 12/14/2012 CIS - ophthalmopathy, graves 12/06/2009 12/14/2012 Encounters Date Type Department Care Team Description 12/10/2023 1:29 PM EDT - 12/10/2023 11:59 PM EDT Hospital Encounter [place] [address] Kemal Vee MD Chest pain, unspecified type Discharge Disposition: Home 12/10/2023 Travel 12/03/2023 Travel 10/16/2023 External Results [place] [address] from Last 3 Months Immunizations Name Administration Dates Next Due Influenza Trivalent w/Preservative 03/11/2012 Family History Medical History Relation Comments Bladder Cancer Father Coronary Artery Disease Father Stomach Cancer Father Thyroid Disease Father GERD Mother Colorectal Cancer Neg Hx Relation Status Comments Father Mother Social History Tobacco Use Types Packs/Day Years [...] Orientation Straight 12/03/2023 1: 56 PM EDT Last Filed Vital Signs Vital Sign Reading Time Taken Comments Blood Pressure 107/68 07/08/2014 11:19 AM EST Pulse 55 07/08/2014 11:19 AM EST Temperature 37.1 ??C (98.8 ??F) 04/15/2014 9:04 AM ES T Respiratory Rate 16 04/15/2014 9:04 AM EST Oxygen Saturation 98% 04/15/2014 9:04 AM EST Inhaled Oxygen Concentration - - Weight 67.4 kg (148 lb 9.6 oz) 07/08/2014 11:19 AM EST Height 170.2 cm (5' 7) 07/08/2014 11:19 AM EST Body Mass Index 23.27 07/08/2014 11:19 AM EST Plan of Treatment Health Maintenance Due Date Last Done Comments CT Colonography 1958 Colonoscopy 1958 Colorectal Cancer Screening 1958 FIT DNA 1958 FIT 1958 Sigmoidoscopy (10 year) with FIT yearly 1958 Sigmoidoscopy 1958 Tdap adult 1977 Tetanus vaccine 1977 HPV test 02/28/1988 PAP Smear 02/28/1988 Breast Cancer Share Decision Needed 1998 Breast Cancer screening 1998 Zoster vaccine (1 of 2) 02/28/2008 Advance Directive 2013 Covid-19 Vaccine (3 - season) 2023, 06/08/2020 Bone Density Scan 2023 Pneumoccocal Vaccine: 65+ (1 of 1 - PCV) 2023 Influenza (Flu) vaccine (1 o f 1 - Influenza standard series) 02/10/2024 03/11/2012 HIV screen Completed 12/16/2012 Hepatitis C Screening Completed 12/17/2012 Procedures Procedure Name Priority Date/Time Associated Diagnosis Comments STRESS TEST, EXERCISE (TREADMILL) Routine 12/10/2023 3:51 PM EDT Chest pain, unspecified type HEPATITIS C ANTIBODY Routine 12/17/2012 6:49 PM EDT HIV SCREEN, 4TH GENERATION ([facility]APD/[facility]H) Routine 12/16/2012 6:15 PM EDT from Last 3 Months or Most Recently Relevant to Health Maintenance Results * Stress Test, Exercise (Treadmill) (12/10/2023 3:51 PM EDT) Anatomical Region Laterality Modality Other Kemal Vee MD CARDIAC SERVICES ORD ERABLES * Hepatitis C Antibody (12/17/2012 6:49 PM EDT) Hepatitis C Ab Negative Negative CERNE R MILLENNIUM Blood specimen (specimen) 12/17/2012 6:49 PM EDT 12/17/2012 7:03 PM EDT Narrative Resulting Agency Comment Spec In Lab Fabi Romero MD IMMUNOLOGY ORDER VIKAS BAR ARCOSENNIUM * HIV (12/16/2012 6:15 PM EDT) HIV 1/2 Ab Negative CERNER MILLENNIUM Blood specimen (specimen) 12/16/2012 6:15 PM EDT 12/16/2012 6:20 PM EDT Narrative Resulting Agency Comment Spec In Lab Fabi Romero MD IMMUNOLOGY ORDER VIKAS CERELIO ARCOSENNIUM from Last 3 Months or Most Recently Relevant to Health Maintenance Advance Directives * Full Code (Latest Code Status on File) Date Activated Date Inactivated Comments 12/30/2012 2:25 PM 01/05/2013 2:14 PM Question Answer Comments Order Status: Initial Order Does patient have decision m aking capacity? Yes, Order is based on Patients wishes. * Full Code Date Activated Date Inactivated Comments 12/13/2012 9:13 PM 12/27/2012 8:36 PM Question Answer Comments Order Status: Initial Order Does patient have decision m aking capacity? Yes, Order is based on Patients wishes. Care Teams Wire Galvanizer Relationship Specialty Start Date End Date Kemal Vee MD [address] [place] [address] PCP - General General Internal Medicine 12/10/23 marilyn noble Consulting Physician Gastroenterology 01/13/13
--- OUTSIDE RECORDS SUMMARY | 2023-12-26 11:48 | XMS_ITS | Encounter Summary ---
Author Organization [facility] Address [facility] [place] [address] Care Team Providers Care Supervisor Blueprinting And Photocopy Name Role Phone Jason Davila MD Primary Care Provider [phone] Encounter Details Date Type Department Care Team (Late st Contact Info) Description 05/22/2013 12:35 PM EST - 05/22/2013 11:59 PM EST Hospital [place] [address] Fabi Romero MD [facility] HEMATOLOGY/[place] [address] Discharge Disposition: Home Social History Tobacco Use [...] on filedocumented in this encounter Care Teams Supervisor Blueprinting And Photocopy Relationship Specialty Start Date End Date Jason Davila MD [address] [place] [address] [place] [address] PCP - General 01/13/13 12/09/23 marilyn noble Consulting Physician Gastroenterology 01/13/13 documented as of this encounter
--- OUTSIDE RECORDS SUMMARY | 2023-12-26 11:48 | XMS_ITS | Clinical Summary ---
Author Organization [facility] Address [address] [place] [address] Care Team Providers Care Harvesting Manager Name Role Phone Kemal Vee MD Primary [...] Orientation Not on file Plan of Treatment Health Maintenance Due Date Last Done Comments Hepatitis C Screen 1960 RSV Immunization ( o r 60+ Years) (1 - 1-dose 60+ series) 2018 COVID-19 Vaccine ( season) 2023 Fall Risk Screening 2023 Care Teams Harvesting Manager Relationship Specialty Start Date End Date Kemal Vee MD [address] [place] [address] PCP - General 09/09/21
--- OUTSIDE RECORDS SUMMARY | 2023-12-26 11:48 | XMS_ITS | Encounter Summary ---
Author Organization [facility] Address [address] [place] [address] Care Team Providers Care Senior Software Qa Analyst Name Role Phone Kemal Vee MD Primary Care Provider [phone] Encounter Details Date Type Department Care Team (Late st Contact Info) Description 05/25/2020 Lab Requisition [facility] Pathology & Laboratory Medicine - [facility] [address], [place] [address] Outr Resulting Lab, Provider Social History Tobacco [...] ORDER STANDALONE - BROAD COVID TEST Today 05/24/2020 14:15 EST COVID-19 TESTING Routine 05/24/2020 14:1 5 EST documented in this encounter Results * DO NOT ORDER STANDALONE - BROAD COVID TEST (05/24/2020 14:15 EST) COVID-19 rt-PCR Result NEGATIVE Negative 05/27/2020 20:27 EST [facility] Comment: 2019-novel Coronavirus (2019-nCoV) not [...] in accordance with CLIA regulations, College of [employer]ologists (CAP) guidelines (Aug 28, 2019), and FDA guidance (Aug 09, 2019). This test is only for use under the Food and Drug Administration's Emergency Use Authorization. Swab ENTIRE NASOPHARYNX / Unknown 05/24/2020 14:15 EST 05/25/2020 16:30 EST Provider Outr Resulting Lab MICROBIOLOGY - GENERAL ORDERABLES [facility] [place] * COVID-19 TESTING (05/24/2020 14:15 EST) COVID-19 rt-PCR Result NEGATIVE Negative 05/27/2020 21:35 EST [facility] Comment: 2019-novel Coronavirus (2019-nCoV) not detected [...] in accordance with CLIA regulations, College of [employer] Pathologists (CAP) guidelines (Aug 28, 2019), and FDA guidance (Aug 09, 2019). This test is only for use under the Food and Drug Administration's Emergency Use Authorization. Performing Lab [facility] 05/27/2020 21:35 EST [facility] Swab 05/24/2020 14:1 5 EST 05/25/2020 16:30 EST Provider Outr Resulting Lab MICROBIOLOGY - GENERAL ORDERABLES [facility] [address] [place] [address] [facility] [place] documented in this encounter Visit Diagnoses Not on filedocumented in this encounter Care Teams Senior Software Qa Analyst Relationship Specialty Start Date End Date Kemal Vee MD [address] [place] [address] PCP - General 09/09/21 documented as of this encounter
--- OUTSIDE RECORDS SUMMARY | 2023-12-26 11:48 | XMS_ITS | Encounter Summary ---
Author Organization [facility] [place] [address] Care Team Providers Care Diamond Assorter Name Role Phone Kemal Vee MD Primary Care Provider Encounter Details Date Type Department Care Team (Latest Contact Info) Description 12/10/2023 Travel Social History Tobacco Use Types Packs/Day [...] on filedocumented in this encounter Care Teams Diamond Assorter Relationship Specialty Start Date End Date Kemal Vee MD [address] [place] [id number] PCP - General General Internal Medicine 12/10/23 marilyn noble Consulting Physician Gastroenterology 01/13/13 documented as of this encounter
--- OUTSIDE RECORDS SUMMARY | 2023-12-26 11:48 | XMS_ITS | Encounter Summary ---
Author Organization [facility] Address [address] [place] [address] Care Team Providers Care Nuclear Instructor Name Role Phone Kemal Vee MD Primary Care Provider Encounter Details Date Type Department Care Team (Late st Contact Info) Description 02/13/2023 Lab Requisition [facility] Pathology & Laboratory Medicine - [facility] [address] [place] [address] Dany Burns MD [address] [place] [address] [place] [address] Encounter for other general examination Social History [...] Date/Time Associated Diagnosis Comments SURGICAL PATHOLOGY Today 02/13/2023 13 :30 EDT documented in this encounter Results * SURGICAL PATHOLOGY (02/13/2023 13:30 EDT) Note to Patient The following pathology results have been interpreted by your pathologist and may be available to you before your health provider has had the opportunity to review them. Please allow time for your provider to receive these results and explore management options, if applicable. 02/15/2023 10:[address] [facility] Final Diagnosis A. LEFT COLON, BIOPSY: - Polypoid colonic mucosa with reactive changes and lymphoid aggregate. 02/15/2023 10:[address] [facility] Attestation By the signature below, the attending physician certifies that they have 1) personally conducted a gross and/or microscopic examination of the described specimen(s), and/or personally interpreted the results of laboratory testing of the described specimen(s), and 2) personally rendered or confirmed the above diagnosis. 02/15/2023 10:[address] [facility] at 1044 Clinical History Rectal bleeding, L colon polyp 02/15/2023 10:[address] [facility] Gross Description A. Received in formalin labelled with proper patient identification (initials I, S) and A. Left colon polyp is a single mann-brown tissue (0.3 x 0.2 x 0.1 cm). Submitted intact in A1. Ayla House 02/14/2023 9:44 02/15/2023 10:[address] [facility] Performing Lab [facility] 02/15/2023 10:[address] [facility] Scanned Images 02/15/2023 10:[address] [facility] Tissue LEFT COLON STRUCTURE / Unknown 02/13/2023 13:30 EDT 02/14/2023 8:46 EDT Dany Burns MD PATHOLOGY ORDERABLES [facility] [address] [place] [address] documented in this encounter Visit Diagnoses Diagnosis Encounter for other general examination documented in this encounter Care Teams Nuclear Instructor Relationship Specialty Start Date End Date Kemal Vee MD [address] [place] [address] PCP - General 09/09/21 documented as of this encounter
--- OUTSIDE RECORDS SUMMARY | 2023-12-26 11:48 | XMS_ITS | Encounter Summary ---
Author Organization [facility] Address [facility] [place] [address] Care Team Providers Care Fabrication Manager Name Role Phone Jason Davila MD Primary Care Provider [phone] Encounter Details Date Type Department Care Team (Late st Contact Info) Description 02/12/2013 Telephone [place] [address] [facility] [place] [address] Social History Tobacco Use Types Packs/Day Years [...] encounter Miscellaneous Notes * Telephone Encounter - Susana Seals MD - 02/12/2013 7:10 PM EDT Patient called I explained that her EUS was normal and although her IgG4 was mildly elevated it does not suggest that she has autoimmune pancreatis especially her EUS was normal. She reports that herepigastric pain is improving and she is able to eat and tolerate her diet which suggest that this was most likely post gastritis symptoms, which is now resolving. documented in this encounter Plan of Treatment Not on file documented as of this encounter Visit Diagnoses Not on filedocumented in this encounter Care Teams Fabrication Manager Relationship Specialty Start Date End Date Jason Davila MD [address] [place] [address] PCP - General 01/13/13 12/09/23 marilyn noble Consulting Physician Gastroenterology 01/13/13 documented as of this encounter
--- OUTSIDE RECORDS SUMMARY | 2023-12-26 11:49 | XMS_ITS | Encounter Summary ---
Author Organization [facility]ly [facility] Address [facility] [place] [address] Care Team Providers Care Day Care Center Director Name Role Phone Jason Davila MD Primary Care Provider [phone] Encounter Details Date Type Department Care Team (Latest Contact Info) Description 01/13/2013 11:51 AM EDT - 01/13/2013 11:59 PM EDT [place] [address] Glen Rodriguez MD [facility] INFECTI[place] [address] termite treater helper current use of antibiotics Discharge Disposition: Home Social History Tobacco Use Types Packs/Day Years Used Date Smoking Tobacco: Former Cigarettes 0.5 5 0 06/15/1973 - 06/15/1978 Smokeless Tobacco: Never Alcohol Use Standard Drinks/Week Comments Yes 0 (1 standard drink = 0.6 oz pure alcohol) socially: one glass of wine per month Sex and Gender Information Value Date Recorded [...] 30 tablet 12 01/03/2013 CALCIUM ORAL 12/03/2009 sucralfate (CARAFATE) 100 mg/mL suspensionIndicatio ns:Abdominal pain Take 10 mLs by mouth 4 times daily for 7 days. 280 mL 0 01/13/2013 01/20/2013 warfarin (COUMADIN) 5 mg tablet Take 2 tablets by mouth daily. 60 tablet 0 01/05/2013 04/15/2014 ondansetron (ZOFRAN) 8 mg tablet Take 1 tablet by mouth 3 times daily (before meals). Try 1/2 tablet first. If ineffective, use whole tablet 90 tablet 3 01/05/2013 01/22/2013 alum-mag hydroxide-simeth (MAALOX) 200-200-20 mg/5 mL suspension Take 10 mLs by mouth 3 times daily as needed. 355 mL 01/03/2013 05/22/2013 LORazepam (ATIVAN) 0.5 mg tablet Take 1 tablet by mouth every 6 hours as needed. 30 tablet 0 01/03/2013 05/22/2013 promethazine (PHENERGAN) [address] 0.5 suppositories rectally every 6 hours as needed for Nausea. Ok to use 1 whole suppository if 1/2 does not work. 5 suppository 0 12/28/2012 01/22/2013 omeprazole (PRILOSEC) 40 mg capsule Take 1 capsule by mouth daily. 30 capsule 11 12/27/2012 12/27/2013 documented as of this encounter Plan of Treatment Not on file documented as of this encounter Procedures Procedure Name Priority Date/Time Associated Diagnosis Comments DIFFERENTIAL, AUTOMATED Routine 01/13/2013 12:10 PM EDT CBC (WITH DIFF) Routine 01/13/2013 12:10 PM EDT penitentiary current use of antibiotics LIPASE Routine 01/13/2013 12:10 PM EDT CK Routine 01/13/2013 12:10 PM EDT termite treater helper current use of antibiotics COMPREHENSIVE METABOLIC PANEL (NON-FASTING) Routine 01/13/2013 12:10 PM EDT penitentiary current use of antibiotics documented in this encounter Results * (ABNORMAL) Lipase (01/13/2013 12:10 PM EDT) Lipase 378(H) 0 - 60 unit/L [facility] Blood specimen (specimen) 01/13/2013 12:10 PM EDT 01/13/2013 12:15 PM EDT Narrative Resulting Agency Comment Spec In Lab Glen Rodriguez MD CHEMISTRY ORDERABLES [facility] * Differential, Automated (01/13/2013 12:10 PM EDT) Neutrophils % 67.5 34.0 - 71.0 % [facility] MILLENNI[facility] Neutr Abs (ANC) 3.82 1.50 - 6.30 x10(3)/mcL [facility] Lymphocytes % 21.2 19.0 - 53.0 % C[facility] MILLENNIUM Lymphocytes Abs 1.2 1.0 - 3.6 x10(3)/mcL [facility]ILLENNI[facility] Monocytes % 4.8 4.0 - 13.0 % [facility] MILLENNIUM Monocyte Abs 0.3 0.2 - 1.0 x10(3)/mcL [facility] MILLENNI[facility] Eosinophils % 4.9 0.0 - 7.0 % [facility]ERNER MILLENNIUM Eosinophils Abs 0.3 0.0 - 0.5 x10(3)/mcL [facility] MILLENNI[facility] Basophils % 1.4 0.0 - 2.0 % CERN[facility] MILLENNIUM Basophils Abs 0.1 0.0 - 0.2 x10(3)/mcL [facility] MILLENNI[facility] Immature Gran % 0.20 0.00 - 0.66 % [facility] Comment: Immature granulocytes(IG's)percentage and absolute count will include metamyelocytes, myelocytes, and promyelocytes. Blood smears from CBCs yielding IG's will be scanned manually for concordance. If this scan disagrees with the automated IG or if promyelocytes are noted, a manual differential will be performed. Petty Gran Abs 0.01 0.00 - 0.05 x10(3)/mcL [facility] MILLENNI[facility] Blood specimen (specimen) 01/13/2013 12:10 PM EDT 01/13/2013 12:15 PM EDT Glen Rodriguez MD HEMATOLOGY ORDERABLE S [facility] * CK (01/13/2013 12:10 PM EDT) CK, Total 53 0 - 160 unit/L [facility]ILLENNI[facility] Blood specimen (specimen) 01/13/2013 12:10 PM EDT 01/13/2013 12:15 PM EDT Narrative Resulting Agency Comment Spec In Lab Glen Rodriguez MD CHEMISTRY ORDERABLES Performing Organization Address City/[facility]/ZIP Co de Phone Number [facility]ENNI[facility] * (ABNORMAL) Comprehensive metabolic panel (non-fasting) (01/13/2013 12:10 PM EDT) Pathologist [facility] Glucose Lvl 100 60 - 199 mg/dL [facility]ILL[facility]NI[facility] Comment:Diabetes: >=200 mg/d L plus symptoms BUN 31(H) 8 - 18 mg/dL [facility] Creatinine 1.85(H) 0.70 - 1.20 mg/dL [facility] Comment: Please note that the pediatric reference intervals supplied above were not validated at [facility]. Results from pediatric patients should be interpreted in conjunction to the patient's age, height and muscle mass. Sodium 136 135 - 145 mmol/L [facility]ILL[facility] Potassium 4.7 3.5 - 5.0 mmol/L [facility]ILLENNI[facility] Comment: Please note: ??Patients with WBC >100,000 may have falsely elevated Potassium levels. ??For accurate Potassium quantification in these patients send serum separator tube (gold top) for subsequent determinations. ??Contact the Clinical Chemistry Laboratory if there are any questions. Chloride 100 98 - 107 mmol/L [facility] MILLENNI[facility] CO2 24 22 - 31 mmol/L [facility] MILLEN[facility] Anion Gap 12 5 - 15 mmol/L [facility] MILLENNI[facility] Calcium 10.2 8.5 - 10.5 mg/dL [facility] Total Protein 8.5(H) 6.4 - 8.3 gm/dL [facility] MILL[facility] Albumin 4.7 3.2 - 5.2 gm/dL [facility] MILLENNI[facility] AST 14 0 - 30 unit/L [facility] MILLENNI[facility] ALT 12 0 - 30 unit/L [facility] MILLENNI[facility] Alk Phos 58 40 - 104 unit/L [facility] MILLENNI[facility] Total Bilirubin 0.2 0.2 - 1.3 mg/dL [facility] MILLENNI[facility] Bili, Direct 0.1 0.0 - 0.3 mg/dL [facility] MILLEN[facility] Estimated GFR 28(L) >=60 [facility]ILL[facility] Comment: This estimated GFR [...] internet browser. http://www.nkdep.nih.gov/lab-evaluation.shtml http://www.kidney.org/professionals/ Blood specimen (specimen) 01/13/2013 12:10 PM EDT 01/13/2013 12:15 PM EDT Narrative Resulting Agency Comment Spec In Lab Glen Rdoriguez MD CHEMISTRY ORDERABLES [facility] * (ABNORMAL) CBC (with Diff) (01/13/2013 12:10 PM EDT) WBC 5.7 4.0 - 10.0 x10(3)/mcL CERNER MILLENNIUM RBC 3.51(L) 3.93 - 5.22 x10(6)/mcL [facility] MILLENNIUM Hemoglobin 10.3(L) 11.2 - 15.7 gm/dL [facility]ILL[facility] Hematocrit 32.6(L) 34.0 - 45.0 % CERNER MILLENNIUM MCV 92.9 79.0 - 94.0 fL CERNER MILLENNIUM MCH 29.3 26.6 - 32.2 pg CERNER MILLENNIUM MCHC 31.6(L) 32.0 - 36.5 gm/dL [facility] Platelets 285 145 - 370 x10(3)/mcL [facility] RDWSD 50.9(H) 35.0 - 46.0 fL [facility] RDWCV 15.0(H) 10.9 - 14.4 % [facility] MPV 10.3 9.0 - 12.0 fL [facility] Blood specimen (specimen) 01/13/2013 12:10 PM EDT 01/13/2013 12:15 PM EDT Narrative Resulting Agency Comment Spec In Lab Glen Rodriguez MD HEMATOLOGY ORDERABLE S [facility] documented in this encounter Visit Diagnoses Diagnosis penitentiary current use of antibiotics Encounter for long-term (current) use of antibiotics documented in this encounter Care Teams Day Care Center Director Relationship Specialty Start Date End Date Jason Davila MD [address] [place] [address] [place] [address] PCP - General 01/13/13 12/09/23 marilyn noble Consulting Physician Gastroenterology 01/13/13 documented as of this encounter
--- OUTSIDE RECORDS SUMMARY | 2023-12-26 11:49 | XMS_ITS | Encounter Summary ---
Author Organization [facility] Address [facility] [place] [address] Care Team Providers Care Brasswind Instrument Repairer Name Role Phone Jason Davila MD Primary Care Provider [phone] Encounter Details Date Type Department Care Team (Latest Contact Info) Description 01/13/2013 11:25 AM EDT - 01/13/2013 11:59 PM EDT Hospital [place] [address] CLINIC, Fabi Salter MD [facility] HEMATOLOGY/[place] [address] TTP (thrombotic thrombocytopenic purpura); MRSA (methicillin resistant Staphylococcus aureus) infection; Bloody diarrhea; Abdominal pain; DVT (deep venous thrombosis); Cardiac abnormality Discharge Disposition: Home Social History Tobacco Use [...] 12/27/2012 12/27/2013 documented as of this encounter Procedure Notes * Provider, Scanning - 01/22/2013 7:20 AM EDTAssociated Order(s): SCAN DOC: LAB documented in this encounter Miscellaneous Notes * Miscellaneous - Provider, Scanning - 01/17/2013 4:09 PM EDT documented in this encounter Plan of Treatment Not on file documented as of this encounter Procedures Procedure Name Priority Date/Time Associated Diagnosis Comments LAB SCAN 01/22/2013 7:[address] ABDOMEN AND PELVIS WO CONTRAST Routine 01/13/2013 2:40 PM EDT TTP (thrombotic thrombocytopenic purpura) MRSA (methicillin resistant Staphylococcus aureus) infection Bloody diarrhea Abdominal pain DVT (deep venous thrombosis) Cardiac abnormality documented in this encounter Results * SCAN DOC: LAB (01/22/2013 7:20 AM EDT) Narrative 01/22/2013 7:20 AM EDT Procedure Note Provider, Scanning - 01/22/2013 7:20 AM EDT Scanning Provider MEDIA MGR SCAN EXT O RDR/RSLT * (ABNORMAL) CT abdomen & pelvis WO contrast (01/13/2013 2:40 PM EDT) Anatomical Region Laterality Modality Abdomen, Pelvis Computed Tomogra phy 01/13/2013 2:40 PM EDT Narrative 01/13/2013 3:[address] Abdomen / Pelvis Without Contrast Clinical History Thrombotic thrombocytopenic purpura/Methicillin resistant staphylococcus aureus/Bloody diarrhea/abdominal pain/deep vein thrombosis/cardiac abnormality F/U to last CT - downloaded to [facility] Reassess colon thickening Comparison CT scan of the abdomen and pelvis with intravenous contrast dated December 10, 2012 from [facility]. Technique Axial images of the abdomen and pelvis with oral contrast only. ??Coronal and sagittal reformats obtained. Findings Abdomen: ??There is no intra-abdominal free air. ??There is an 8 mm hypodense mass in the dome of the left lobe of the liver (series 2 image 7), which appears as a cyst on the comparison contrast enhanced outside exam. ??The liver is otherwise unremarkable. ??The gallbladder is contracted. ??The spleen, pancreas, adrenal glands and kidneys are unremarkable. ??Please note however that sensitivity for detecting intrinsic lesions is diminished in the absence of intravenous contrast. ??There is no lymphadenopathy. ??The previously noted abdominal ascites has resolved. Pelvis: ??Small bowel appears normal and is well opacified. ??The colon is not opacified by contrast, which limits evaluation. ??However the colon now has a normal appearance. ??Previously noted bowel wall thickening and edema and pericolonic inflammatory change has resolved. ??There is a dilated tubular structure in the right adnexal that probably represents a hydrosalpinx and may have been obscured previously by ascites. ??There is no pelvic lymphadenopathy. ?? There is no ascites. ??Left adnexa appears normal. Impression 1. Despite the lack of colonic contrast opacification, it appears that the colonic inflammatory process has resolved. 2. Probable right-sided hydrosalpinx. ??Further evaluation with transvaginal pelvic ultrasound is recommended when clinically warranted. ??This is an unexpected finding. Resulting Agency Comment Unexpected Finding Procedure Note Zain Staton MD - 01/13/[address] Abdomen / Pelvis Without Contrast Clinical History Thrombotic thrombocytopenic purpura/Methicillin resistant staphylococcus aureus/Bloody diarrhea/abdominal pain/deep vein thrombosis/cardiacabnormality F/U to last CT - downloaded to [facility] Reassess colon thickening Comparison CT scan of the abdomen and pelvis with intravenous contrast dated December from [facility]. Technique Axial images of the abdomen and pelvis with oral contrast only. Coronaland sagittal reformats obtained. Findings Abdomen: There is no intra-abdominal free air. There is an 8 mmhypodense mass in the dome of the left lobe of the liver (series 2 image 7), which appears as a cyst on the comparison contrast enhanced outside exam. Theliver is otherwise unremarkable. The gallbladder is contracted. The spleen, pancreas, adrenal glands and kidneys are unremarkable. Please notehowever that sensitivity for detecting intrinsic lesions is diminished in theabsence of intravenous contrast. There is no lymphadenopathy. The previouslynoted abdominal ascites has resolved. Pelvis: Small bowel appears normal and is well opacified. The colon isnot opacified by contrast, which limits evaluation. However the colon now hasa normal appearance. Previously noted bowel wall thickening and edema and pericolonic inflammatory change has resolved. There is a dilated tubular structure in the right adnexal that probably represents a hydrosalpinx andmay have been obscured previously by ascites. There is no pelviclymphadenopathy. There is no ascites. Left adnexa appears normal. Impression 1. Despite the lack of colonic contrast opacification, it appears that the colonic inflammatory process has resolved. 2. Probable right-sided hydrosalpinx. Further evaluation withtransvaginal pelvic ultrasound is recommended when clinically warranted. This is an unexpected finding. 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 MRSA (methicillin resistant Staphylococcus aureus) infection Methicillin resistant Staphylococcus aureus in conditions classified elsewhere and of unspecified site Bloody diarrhea Diarrhea Abdominal pain Abdominal pain, unspecified site DVT (deep venous thrombosis) Acute venous embolism and thrombosis of unspecified deep vessels of lower extremity Cardiac abnormality Unspecified congenital anomaly of heart documented in this encounter Care Teams Brasswind Instrument Repairer Relationship Specialty Start Date End Date Jason Davila MD [address] [place] [address] [place] [address] PCP - General 01/13/13 12/09/23 marilyn noble Consulting Physician Gastroenterology 01/13/13 documented as of this encounter
--- OUTSIDE RECORDS SUMMARY | 2023-12-26 11:49 | XMS_ITS | Encounter Summary ---
Author Organization [facility] Address [facility] [place] [address] Care Team Providers Care Structural Technician Name Role Phone Ofelia Costello APRN Primary Care Provider [phone] Reason for Visit * Reason Comments Congestive Heart Failure Encounter Details Date Type Department Care Team (Late st Contact Info) Description 01/10/2013 3:30 PM EDT Office Visit [address] [address] Martir Sevilla MD [facility] [place] [address] CHF (congestive heart failure) (Primary Dx) Social [...] as of this encounter Progress Notes * Provider, Gregg - 01/16/2013 1:11 PM EDT * Martir Sevilla - 01/10/2013 12:03 PM EDT Scanned note documented in this encounter Plan of Treatment Not on file documented as of this encounter Visit Diagnoses Diagnosis CHF (congestive heart failure)- Primary Congestive heart failure, unspecified documented in this encounter Care Teams Structural Technician Relationship Specialty Start Date End Date Ofelia Costello APRN [address] [address] PCP - General 12/13/12 01/12/13 documented as of this encounter
--- OUTSIDE RECORDS SUMMARY | 2023-12-26 11:49 | XMS_ITS | Encounter Summary ---
Author Organization [facility] Address [facility] [place] [address] Care Team Providers Care Composition Roll Maker And Cutter Name Role Phone Jason Davila MD Primary Care Provider [phone] Encounter Details Date Type Department Care Team (Late st Contact Info) Description 01/13/2013 Orders [place] [address] Ani Hernandez APRN [facility] [place] [address] longterm current use of antibiotics (Primary Dx) Social History Tobacco Use Types [...] on file documented as of this encounter Results * CK (01/13/2013 12:10 PM EDT) CK, Total 53 0 - 160 unit/L [facility] Blood specimen (specimen) 01/13/2013 12:10 PM EDT 01/13/2013 12:15 PM EDT Narrative Resulting Agency Comment Spec In Lab Glen Rodriguez MD CHEMISTRY ORDERABLES [facility]ENNI[facility] * (ABNORMAL) Comprehensive metabolic panel (non-fasting) (01/13/2013 12:10 PM EDT) Glucose Lvl 100 60 - 199 mg/dL [facility]ILL[facility]NI[facility] Comment:Diabetes: >=200 mg/d L plus symptoms BUN 31(H) 8 - 18 mg/dL [facility] MILLENNI[facility] Creatinine 1.85(H) 0.70 - 1.20 mg/dL [facility] MILLENNIUM Comment: Please note that the pediatric reference intervals supplied above were not validated at [facility]. Results from pediatric patients should be interpreted [...] Rodriguez MD CHEMISTRY ORDERABLES [facility] * (ABNORMAL) CBC (with Diff) (01/13/2013 12:10 PM EDT) WBC 5.7 4.0 - 10.0 x10(3)/mcL [facility] MILLENNIUM RBC 3.51(L) 3.93 - 5.22 x10(6)/mcL [facility] MILLENNIUM Hemoglobin 10.3(L) 11.2 - 15.7 gm/dL [facility] MILLENNIUM Hematocrit 32.6(L) 34.0 - 45.0 % CERNER MILLENNIUM MCV 92.9 79.0 - 94.0 fL CERNER MILLENNIUM MCH 29.3 26.6 - 32.2 pg CERNER MILLENNIUM MCHC 31.6(L) 32.0 - 36.5 gm/dL [facility] MILLENNI[facility] Platelets 285 145 - 370 x10(3)/mcL CERNER MILLENNIUM RDWSD 50.9(H) 35.0 - 46.0 fL CERNER MILLENNIUM RDWCV 15.0(H) 10.9 - 14.4 % CERNER MILLENNIUM MPV 10.3 9.0 - 12.0 fL [facility]ILLENNI[facility] Blood specimen (specimen) 01/13/2013 12:10 PM EDT 01/13/2013 12:15 PM EDT Narrative Resulting Agency Comment Spec In Lab Glen Rodriguez MD HEMATOLOGY ORDERABLE S Performing Organization Address City/State/[facility] Co co Phone Number [facility] documented in this encounter Visit Diagnoses Diagnosis longterm current use of antibiotics- Primary Encounter for long-term (current) use of antibiotics documented in this encounter Care Teams Composition Roll Maker And Cutter Relationship Specialty Start Date End Date Jason Davila MD [address] [place] [address] [place] [address] PCP - General 01/13/13 12/09/23 marilyn noble Consulting Physician Gastroenterology 01/13/13 documented as of this encounter
--- OUTSIDE RECORDS SUMMARY | 2023-12-26 11:49 | XMS_ITS | Encounter Summary ---
Author Organization [facility] [place] [address] Care Team Providers Care Brine Room Laborer Name Role Phone Jason Davila MD Primary Care Provider [phone] Encounter Details Date Type Department Care Team (Late st Contact Info) Description 02/05/2013 Telephone [place] [id number] Drea Britton, RN Social History Tobacco Use Types Packs/Day [...] encounter Miscellaneous Notes * Telephone Encounter - Drea Britton, RN - 02/05/2013 9:19 AM EDT Call from patient asking if Dr Seals would like IgG4, amylase, lipase repeated. (elevated on 01/22). LFT's WNL Will forward to Dr Seals. documented in this encounter Plan of Treatment Not on file documented as of this encounter Visit Diagnoses Not on filedocumented in this encounter Care Teams Brine Room Laborer Relationship Specialty Start Date End Date Jason Davila MD [address] [place] [address] [place] [address] PCP - General 01/13/13 12/09/23 marilyn noble Consulting Physician Gastroenterology 01/13/13 documented as of this encounter
--- OUTSIDE RECORDS SUMMARY | 2023-12-26 11:49 | XMS_ITS | Encounter Summary ---
Author Organization [facility] Address [facility] [place] [address] Care Team Providers Care Kiln Fireman Name Role Phone Jason Davila MD Primary Care Provider [phone] Encounter Details Date Type Department Care Team (Latest Contact Info) Description 01/13/2013 11:50 AM EDT - 01/13/2013 11:59 PM EDT [place] [address] Tyson Connolly MD [facility] [place] [address] Graves disease Discharge Disposition: Home Social History [...] Procedure Name Priority Date/Time Associated Diagnosis Comments FREE THYROXINE INDEX Routine 01/13/2013 12:10 PM EDT T3 TOTAL STAT 01/13/2013 12:10 PM EDT Graves disease T UPTAKE Routine 01/13/2013 12:10 PM EDT Graves disease TSH Routine 01/13/2013 12:10 PM EDT Graves disease T4, FREE Routine 01/13/2013 12:10 PM EDT Graves disease T4 TOTAL STAT 01/13/2013 12:10 PM EDT Graves disease documented in this encounter Results * (ABNORMAL) Free Thyroxine Index (01/13/2013 12:10 PM EDT) FTI 4.2(L) 4.5 - 9.5 mcg/dL [facility] Comment: Females: 5. 5-10.5 mcg/dL Blood specimen (specimen) 01/13/2013 12:10 PM EDT 01/13/2013 12:15 PM EDT Narrative Resulting Agency Comment Spec In Lab Tyson Connolly MD CHEMISTRY ORDERABLES Performing Organization Address [facility] Co de Phone Number [facility] * (ABNORMAL) T4 (01/13/2013 12:10 PM EDT) T4, total 4.9(L) 5.1 - 10.8 mcg/dL [facility] Comment: Reference Range: [place] Cord Blood: ??6.9-14.4 mcg/dL Females: ??7.2-14.2 mcg/dL Pediatric ranges: ??Interpret with caution-ranges have not been verified Blood specimen (specimen) 01/13/2013 12:10 PM EDT 01/13/2013 12:15 PM EDT Narrative Resulting Agency Comment Spec In Lab Tyson Connolly MD CHEMISTRY ORDERABLES Performing Organization Address [facility] Co de Phone Number [facility] * T Uptake (01/13/2013 12:10 PM EDT) T Uptake 1.16 0.80 - 1.30 ratio [facility] Comment: Tup assay is directly proportional to Thyroid binding protein concentration, thus FT4 Index = TT4/Tup. [place] Cord Blood Reference Range: ??0.74-1.28. Blood specimen (specimen) 01/13/2013 12:10 PM EDT 01/13/2013 12:15 PM EDT Narrative Resulting Agency Comment Spec In Lab Tyson Connolly MD CHEMISTRY ORDERABLES [facility] * (ABNORMAL) T3 (01/13/2013 12:10 PM EDT) T3, Total 62(L) 75 - 170 ng/dL [facility] Blood specimen (specimen) 01/13/2013 12:10 PM EDT 01/13/2013 12:15 PM EDT Narrative Resulting Agency Comment Spec In Lab Tyson Connolly MD CHEMISTRY ORDERABLES Performing Organization Address City/[facility]/ZIP Co de Phone Number [facility] * T4, free (01/13/2013 12:10 PM EDT) Free T4 0.96 0.90 - 1.60 ng/dL [facility] Blood specimen (specimen) 01/13/2013 12:10 PM EDT 01/13/2013 12:15 PM EDT Narrative Resulting Agency Comment Spec In Lab Tyson Connolly MD CHEMISTRY ORDERABLES Performing Organization Address City/[facility] Co de Phone Number [facility] * TSH (01/13/2013 12:10 PM EDT) TSH 0.63 0.27 - 4.20 mcIU/mL [facility] Blood specimen (specimen) 01/13/2013 12:10 PM EDT 01/13/2013 12:15 PM EDT Narrative Resulting Agency Comment Spec In Lab Tyson Connolly MD CHEMISTRY ORDERABLES Performing Organization Address City/[facility]/ZIP Co de Phone Number [facility] documented in this encounter Visit Diagnoses Diagnosis Graves disease 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
--- OUTSIDE RECORDS SUMMARY | 2023-12-26 11:49 | XMS_ITS | Encounter Summary ---
Author Organization [facility] Address [facility] [place] [address] Care Team Providers Care Interior Wall Assembler Name Role Phone Ofelia Costello APRN Primary Care Provider [phone] Encounter Details Date Type Department Care Team (Late st Contact Info) Description 01/05/2013 Orders Only Hematology/[place] [address] Flynn Frausto MD [facility] [place] [address] Social History Tobacco Use Types Packs/Day Years [...] on filedocumented in this encounter Care Teams Interior Wall Assembler Relationship Specialty Start Date End Date Ofelia Costello APRN [facility] [address] [place] [id number] PCP - General 12/13/12 01/12/13 documented as of this encounter
--- OUTSIDE RECORDS SUMMARY | 2023-12-26 11:49 | XMS_ITS | Encounter Summary ---
[facility] Organization [facility] Address [facility] [place] [address] Care Team Providers Care City Tax Auditor Name Role Phone Jason Davila MD Primary Care Provider [phone] Encounter Details Date Type Department Care Team (Latest Contact Info) Description 01/14/2013 10:05 AM EDT Office [place] [address] Minor Kebede MD [facility] [place] [address] H/O Graves' disease (Primary Dx); Graves' ophthalmopathy Social History Tobacco Use Types Packs/Day Years [...] as of this encounter Progress Notes * Clovis Clark MD - 01/14/2013 11:37 AM EDT I have seen the patient and reviewed Dr. Kebede's history and I agree with the details as written. The assessment and plan were formulated in discussion with me and I agree with them as documented. Will cont to follow labs for TSH, FT4 and T3 and also TPO Ab in 2 months for her Graves; in remission. She understands the risk of recurrent Graves, or switching to hypothyroid in the future, especially if she also has underlying Sergio's thyroiditis in addition to her Graves' disease. Measurement by exophthalmometer set at 100 mm showed improvement at 22 mm bilaterally today (was 25 mm 2 weeks ago at recent admission). 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 The patient was seen by the consult service while she was an inpatient approximately 4 weeks ago. At that time, while on methimazole 5 q day, her TSH was 3.68, and both her freeT4 and free T3 were low at 0.88 and 1.6, respectively. A TSI was negative at that time. As there was some concern for methimazole-induced vasculitis at that time and her TSH was at the higher end of normal, it was decided to stop her methimazole. While her course was quite complicated after that (renal failure, delirium, MRSA bacteremia, DVT, re-hospitalization for heart failure and hypoxia from microthrombi in the coronary and pulmonary vasculature), she appeared to remain euthyroid by history, exam, and labs. Since her most recent discharge one and a half weeks ago, she reports feeling significantly better. She has some ongoing abdominal complaints, including mild nausea. She has had weight loss and fatigue that she attributes to her other medical problems. She has some insomnia that isunchanged from previously. She denies changes in her vision, mood, palpitations, jitteriness/nervousness, bowel habits, and tremor. PMH: - Graves' disease (diagnosed ~13 years ago, with Graves' orbitopathy) - Recent complicated hospital stay (see above) - HLD Relevant Medications: - Metoprolol XL 100 q day FH: - No known endocrine disorders, including thyroid disease SH: - No tobacco - Rare EtOH - No drugs ROS: - 10-point ROS performed and negative, except as above PE: - Vitals: 102/67, 61, 124 lbs - Gen: AAO x 3, NAD - HEENT: + proptosis (~23 mm on the right and 22 mm on the left), EOMI, PERRL, MMM - Neck: Non-tender thyroid, no cervical LAD - CV: RRR, no M/C/R - Pulm: CTAB - Abd: +BS, mild epigastric TTP - Ext: No edema - Neuro: No tremor, 2+ reflexes Labs: - TSH 0.63 - Total T3 62 - Total T4 4.9 - Free T4 0.96 - FTI 4.2 Assessment: The patient is a 52-y/o lady with a PMH significant for long- standing Graves' disease and a 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 The patient remains clinically euthyroid. Her biochemical assessment shows a low- normal TSH and mildly low T3/T4, likely indicating euthyroid sick, which is not unexpected given her recent prolonged illness. As such, she continues to show no signs of hyperthyroidism. Additionally, given her negative TSI, there is an approximately 70% chance that she will not have recurrence of her Graves' disease. Plan: - As above, no evidence for recurrent hyperthyroidism - Will continue to hold methimazole - Beta-kirstie to be continued, would be helpful in the event of her hyperthyroidism recurring - Will continue to follow TFTs, hopeful that she will remain euthyroid, as above - Will check anti-TPO abs at next visit to help determine the likelihood of developing hypothyroidism - Return to clinic in 2 months, labs to be done at that time, will plan to extend f/u intervals gradually (3 months, 6 months, 1 year, etc) Patient discussed and seen with the attending Dr. Gardenia Kebede M.D. Fellow, Endocrinology 01/14/2013 documented in this encounter Plan of Treatment Not on file documented as of this encounter Results * (ABNORMAL) Thyroid peroxidase antibody (03/21/2013 10:02 AM EDT) Thyroperox Ab 72(H) <=34 IU/mL CERNE R MILLENNIUM Blood specimen (specimen) 03/21/2013 10:02 AM EDT 03/21/2013 12:04 PM EDT Narrative Resulting Agency Comment Spec In Lab Clovis Clark MD IMMUNOLOGY ORDERA BLES BAR [facility]EDAI[facility] * T4, free (03/21/2013 10:02 AM EDT) Free T4 1.23 0.90 - 1.60 ng/dL BAR PINEDAIUM Blood specimen (specimen) 03/21/2013 10:02 AM EDT 03/21/2013 10:09 AM EDT Narrative Resulting Agency Comment Spec In Lab Clovis Clark MD CHEMISTRY ORDERAB LES BAR [facility] * T3 (03/21/2013 10:02 AM EDT) T3, Total 96 75 - 170 ng/dL BAR PIN[facility]AI[facility] Blood specimen (specimen) 03/21/2013 10:02 AM EDT 03/21/2013 10:09 AM EDT Narrative Resulting Agency Comment Spec In Lab Clovis Clark MD CHEMISTRY ORDERAB LES BAR [facility] * TSH (03/21/2013 10:02 AM EDT) TSH 1.63 0.27 - 4.20 mcIU/mL BAR [facility] Blood specimen (specimen) 03/21/2013 10:02 AM EDT 03/21/2013 10:09 AM EDT Narrative Resulting Agency Comment Spec In Lab Clovis Clark MD CHEMISTRY ORDERAB LES BAR [facility] documented in this encounter Visit Diagnoses Diagnosis H/O Graves' disease- Primary Personal history of other endocrine, metabolic, and immunity disorders 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
--- OUTSIDE RECORDS SUMMARY | 2023-12-26 11:49 | XMS_ITS | Encounter Summary ---
Author Organization [facility] Address [facility] [place] [address] Care Team Providers Care Lab Clerk Name Role Phone Bakari Warner APRN Primary Care Provider [phone] Encounter Details Date Type Department Care Team (Late st Contact Info) Description 01/08/2013 12:00 PM EDT Follow-Up Hematology Oncology at [address] [address] Fabi Romero MD [facility] DR HEMATOLOGY/[place] [address] TTP (thrombotic thrombocytopenic purpura) (Primary Dx); MRSA (methicillin resistant Staphylococcus aureus) infection; Bloody [...] Sign Reading Time Taken Comments Blood Pressure 145/97 01/08/2013 12:13 PM EDT Pulse 57 01/08/2013 12:13 PM EDT Temperature 36.7 ??C (98.1 ??F) 01/08/2013 12:13 PM E DT Respiratory Rate 16 01/08/2013 12:13 PM EDT Oxygen Saturation 100% 01/08/2013 12:13 PM EDT 2L via NC Inhaled Oxygen Concentration - - Weight 56.7 kg (125 lb) 01/08/2013 12:13 PM EDT Height 170 cm (5' 6.93) 01/08/2013 12:13 PM EDT Body Mass Index 19.62 01/08/2013 12:13 PM EDT documented in this encounter Progress Notes * Fabi Romero MD - 01/08/2013 12:36 PM [place]T [place] [address] FOLLOW-UP PATIENT EVALUATION PROBLEM LIST: Patient Active Problem List Diagnoses ??? 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 Developed [...] Vanco/daptomycin - due to be completed 01/14/13 ??? MRSA (methicillin resistant Staphylococcus aureus) infection Line infection 12/2012. Treated with vanco/daptomycin X 3 weeks. Completed 01/14/13. ??? Bloody diarrhea December 2012 in setting of TTP. Culture negative. CT with colonic thickening. ??? Abdominal pain Initially diffuse with TTP then localized to upper abdomen/epigastric region. Started with onset of bloody diarrhea and TTP. Persisted after improvement in GI sx and counts. EGDwith mucosal hemorrhage and hyperemic mucosa. ??? DVT (deep venous thrombosis) 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 Plans for full anticoagulation for 3-6 mos given hypercoagulability of underlying disease. ??? Cardiac abnormality December 2012 - readmitted after TTP/HUS for CHF picture. EF = 40% with global hypokinesis. 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 ??? HUS (hemolytic uremic syndrome) ??? TACO (transfusion associated circulatory overload) ??? MRSA bacteremia ??? Hemorrhagic colitis CT shows sparing of the sigmoid and rectum ??? Thrombocytopenia ??? Hyperthyroidism Graves disease stable on methimazole for 10+ years. INTERIM HISTORY OF PRESENT ILLNESS: It was my pleasure to see Anum Henriquez back in clinic today. Anum Henriquez is a 52 y.o. 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 She had a very complicated hospital course. See assessment/plan below. Discharged 3 days ago afte second hospitalization. Eating small amts but hard due to Nausea and abd pain. Using prilosec. NormalBM. No thrombosis, bleeding, bruising now. Upper abd pain - EGD 12/18/12 Findings: The esophagus was normal. Diffuse erythematous mucosa with submucosal hemorrhages was found in the gastric body. The examined duodenum was normal. ROS Energy level: Low to medium Pain: Stomach pain Appetite: Poor Fevers/chills/sweats:No Bruising/bleeding/melena:No Recent infections:No HEENT: negative Nausea/vomiting/diarrhea/constipation: continued N/V and epigastric pain - continual pain. Tender to the touch. No change with food. + BM daily. SOB/GUEVARA/chest pain:stable pulmonary - requiring 2 liters o2. Sometimes can go without it if totallyquiet. Change in adenopathy or other masses:none Unexpected weight loss or gain:No Skin rashes or petechiae:No Musculoskeletal complaints:None Extremities: Negative upper and lower bilaterally Neurologic symptoms: None since first hospitalization Mood: Normal Sleep: NO Difficulty sleeping - uses ativan 0.5mg MEDS: Outpatient Prescriptions Marked as Taking for the 01/08/13 encounter (Follow-Up) with Fabi Romero MD Medication Sig Dispense Refill ??? ondansetron (ZOFRAN) 8 mg tablet Take 1 tablet by mouth 3 times daily (before meals). Try 1/2 tablet first. If ineffective, use whole tablet 90 tablet 3 ??? DAPTOmycin (CUBICIN) 500 mg injection Inject 6.8 mLs into the vein every 48 hours as needed (MRSA line infection) for 9 days. 1 each ??? acetaminophen (TYLENOL) 500 mg tablet Take 2 tablets by mouth every 6 hours as needed for Pain or Fever. 30 tablet ??? alum-mag hydroxide-simeth (MAALOX) 200-200-20 mg/5 mL suspension Take 10 mLs by mouth 3 times daily as needed. 355 mL ??? aspirin 81 mg chewable tablet Take 81 mg by mouth daily. 30 tablet ??? lisinopril (PRINIVIL;ZESTRIL) 2.5 mg tablet Take 1 tablet by mouth daily. 30 tablet 12 ??? LORazepam (ATIVAN) 0.5 mg tablet Take 1 tablet by mouth every 6 hours as needed. 30 tablet 0 ??? metoprolol succinate (TOPROL-XL) 100 mg XL tablet Take 1 tablet by mouth daily. 30 tablet 12 ??? omeprazole (PRILOSEC) 40 mg capsule Take 1 capsule by mouth daily. 30 capsule 11 ??? Meyrnklzkcw-Nwejydsno-Txz C-Mn 500-400 mg Cap ??? CALCIUM ORAL Allergies: Allergies Allergen Reactions ??? Erythromycin Base INTERIM SOCIAL HISTORY Changes in job, home situation, tobacco or alcohol use: see HPI PHYSICAL EXAM BP 145/97 Pulse 57 Temp(Src) 36.7 ??C (98.1 ??F) (Oral) Resp 16 Ht 170 cm (5' 6.93) Wt 56.7 kg (125 lb) BMI 19.62 kg/m2 SpO2 100% Body surface area is 1.64 meters squared. GENERAL: Anum Henriquez appears well [...] MUSCULOSKELETAL: No spinal or chest wall tenderness. LINE: nontender, no erythema LABORATORY STUDIES No results found for this or any previous visit (from the past 72 hour(s)). Results for ANUM HENRIQUEZ ( ) as of 01/08/2013 12:37 Ref. Range 01/05/2013 04:30 WBC Latest Range: 4.0-10.0 x10(3)/mcL 3.8 (L) RBC Latest Range: 3.93-5.22 x10(6)/mcL 3.20 (L) Hemoglobin Latest Range: 11.2-15.7 gm/dL 9.6 (L) Hematocrit Latest Range: 34.0-45.0 % 29.9 (L) MCV Latest Range: 79.0-94.0 fL 93.4 MCH Latest Range: 26.6-32.2 pg 30.0 MCHC Latest Range: 32.0-36.5 gm/dL 32.1 RDWSD Latest Range: 35.0-46.0 fL 52.2 (H) RDWCV Latest Range: 10.9-14.4 % 15.7 (H) Platelets Latest Range: 145-370 x10(3)/mcL 274 MPV Latest Range: 9.0-12.0 fL 11.0 Neutr Abs (ANC) Latest Range: 1.50-6.30 x10(3)/mcL 2.20 Neutrophils % Latest Range: 34.0-71.0 % 57.0 Immature Gran % Latest Range: 0.00-0.66 % 0.30 Lymphocytes % Latest Range: 19.0-53.0 % 27.3 Monocytes % Latest Range: 4.0-13.0 % 9.4 Eosinophils % Latest Range: 0.0-7.0 % 5.2 Basophils % Latest Range: 0.0-2.0 % 0.8 Petty Gran Abs Latest Range: 0.00-0.05 x10(3)/mcL 0.01 Lymphocytes Abs Latest Range: 1.0-3.6 x10(3)/mcL 1.0 Monocyte Abs Latest Range: 0.2-1.0 x10(3)/mcL 0.4 Eosinophils Abs Latest Range: 0.0-0.5 x10(3)/mcL 0.2 Basophils Abs Latest Range: 0.0-0.2 x10(3)/mcL 0.0 PT Latest Range: 12.0-15.0 sec 22.1 (H) INR Latest Range: 0.9-1.1 1.9 (H) PTT Latest Range: 25-35 sec 36 (H) Sodium Latest Range: 135-145 mmol/L 136 Potassium Latest Range: 3.5-5.0 mmol/L 4.2 Chloride Latest Range: 98-107 mmol/L 98 CO2 Latest Range: 22-31 mmol/L 29 Anion Gap Latest Range: 5-15 mmol/L 9 BUN Latest Range: 8-18 mg/dL 20 (H) Creatinine Latest Range: 0.70-1.20 mg/dL 2.27 (H) Estimated GFR Latest Range: >=60 22 (L) Glucose Fasting Latest Range: 65-99 mg/dL 94 Calcium Latest Range: 8.5-10.5 mg/dL 9.4 LDH Latest Range: 110-220 unit/L 198 01/07/[address] [facility] Wbc 5.8 hgb 9.9 plt 281k ANC 3.7 BUN 29 Creat 2.1 LFT Normal LDH 521 (normal) CPK 35 INR 3.5 (PCP to follow) RADIOLOGY STUDIES REVIEWED: none ASSESSMENT/PLAN: It was my pleasure to see Ms. Henriquez in clinic today. I initially met Anum while she was hospitalized for her initial presentation of TTP. Her case is quite complicated, and I spent more than 45 minutes reviewing the hospital course and followup Recommendations Anum initially presented on December 13, 2012, after several days of hospitalization at [facility]. She initially presented there with bloody diarrhea and abdominal distention. During her course there, she developed a drop in her hemoglobin and platelet count and slowly developed mild renal insufficiency. At that point, TTP was suspected, and she was transferred to [facility]. 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 She was hospitalized at [facility] from December 13 to December 27, 2012. [...] problem list and plan are listed below. 1. TTP-HUS: Her counts continue to improve slowly. LDH is normal today. No signs of relapse at this time. We will continue to follow closely. 2. Renal insufficiency: Her baseline creatinine is approximately 2. Today it is 2.1. We would anticipate a very slow improvement of her renal function over the coming months. She has followup with Dr. Brian Velazco next week. 3. Endocrinology: She has a history of Graves disease, and her methimazole has been on hold. She will follow up with Endocrinology next week. 4. Acute systolic CHF: As listed above, her EF was approximately 40% with global hypokinesis. She will need followup with Cardiology in approximately one month with a repeat TTE. 5. Hypoxia: She remains on 2 L of supplemental oxygen. She states that she does drop her saturations with any exertion. We will continue to monitor and wean as possible. I spoke with Dr Davila on 01/09/13 and he will help wean her oxygen as needed. 6. Abdominal complaints: As listed above, she complains of ongoing nausea and abdominal pain, mainly in the epigastric and bilateral upper quadrants. It has slowly improved over the last month, and it may be residual from her TTP-HUS. Her last EGD showed hemorrhagic mucosa, and we may need to consider repeating this in the future if her symptoms do not improve. She remains on Prilosec. CT is recommended for followup of the bowel wall thickening seen on her preliminary CT. I will try to get this at [facility] on either 01/13/2013 or 01/14/2013 to coincide with her other appointments. 7. MRSA bacteremia: Her CK remains normal on the daptomycin. She is due to complete her daptomycin on January 14, 2013. That will complete a three-week course of combined vancomycin and daptomycin for her MRSA bacteremia. 8. Bilateral DVT: She has been been bridged to warfarin. Her primary care physician is following this. Because she only had calf DVT, the optimal length of anticoagulation is unclear. She was given anticoagulation because of the hypercoagulable nature of her TTP. I would anticipate a three- to six-month total treatment course depending on how her TTP and HUS proceed. I will plan to see Anum back in clinic in two weeks. In the meantime I will order the followup CT scan. She will need a CBC, CMP, and LDH prior to the next appointment. total time: 60 time in counsellin Copy BKAARI WARNER APRN documented in this encounter Procedure Notes * Provider, Scanning - 01/09/2013 12:32 PM EDTAssociated Order(s): SCAN DOC: LAB * Provider, Scanning - 01/09/2013 8:55 AM EDTAssociated Order(s): SCAN DOC: LAB * Provider, Scanning - 01/08/2013 12:45 PM EDTAssociated Order(s): SCAN DOC: LAB * Provider, Scanning - 01/08/2013 12:44 PM EDTAssociated Order(s): SCAN DOC: LAB documented in this encounter Miscellaneous Notes * Advance Care Plan Note - Liz Navarro RN - 01/08/2013 12:29 PM EDT ADVANCE CARE PLANNING NOTE I. WHEN TO USE THIS FORM: This Advance Care Planning Note should be used for patients with decisional capacity who have not executed advance directives, such as a Durable Power of Marine Structural Designer for Health Care. DETERMINATION OF CAPACITY The basis for decisional capacity entails all of the following criteria. The patient, Anum Henriquez, must be able (in a general way) to understand: ?? Her condition ?? Treatment alternatives ?? Potential benefits and risks of proposed treatments/interventions The patient has the capacity to make decisions: Yes If the patient does not have decisional capacity, go no further. This form cannot be used. II. DESIGNATION OF DECISION MAKER The patient, Anum Henriquez, expresses the following preference: Designation of health care agent: The patient, Anum Henriquez, identifies the following individual to serve as a health care agent, authorized to speak for the individual in making medical treatment decisions in the future if he/she is unable to speak for him/herself. Name: Liu Henriquez ([phone]) Relationship to patient: Alternate decision maker: Name: Venita Diony ([phone]) and Dewey Montesabelle ([phone]) Relationship to patient: daughter and son III. OPTIONAL EXPRESSION OF PREFERENCES FOR SPECIFIC LIFE-PROLONGING TREATMENTS Not reviewed at this time. IV: OTHERS PRESENT - None present V. OTHER COMMENTS Patient has advanced directives on file at [facility] - patient agreeable to bringing copies of advanced directives to [facility] for scanning into eD-H. documented in this encounter Plan of Treatment Not on file documented as of this encounter Procedures Procedure Name Priority Date/Time Associated Diagnosis Comments LAB SCAN 01/09/2013 12:32 PM EDT LAB SCAN 01/09/2013 8:55 AM EDT LAB SCAN 01/08/2013 12:45 PM EDT TTP (thrombotic thrombocytopenic purpura) MRSA (methicillin resistant Staphylococcus aureus) infection Bloody diarrhea Abdominal pain DVT (deep venous thrombosis) Cardiac abnormality LAB SCAN 01/08/2013 12:44 PM EDT TTP (thrombotic thrombocytopenic purpura) MRSA (methicillin resistant Staphylococcus aureus) infection Bloody diarrhea Abdominal pain DVT (deep venous thrombosis) Cardiac abnormality documented in this encounter Results * (ABNORMAL) CT abdomen & pelvis WO [...] intravenous contrast dated December 10, 2012 from [facility]. Technique Axial images of the abdomen [...] F/U to last CT - downloaded to [facility] Reassess colon thickening Comparison CT scan of the abdomen and pelvis with intravenous contrast dated December from [facility]. Technique Axial images of the abdomen [...] Fabi Romero MD IMG CT ORDERABLE S * SCAN DOC: LAB (01/09/2013 12:32 PM EDT) Narrative 01/09/2013 12:32 PM EDT Procedure Note Provider, Scanning - 01/09/2013 12:32 PM EDT Scanning Provider MEDIA MGR SCAN EXT O RDR/RSLT * SCAN DOC: LAB (01/09/2013 8:55 AM EDT) Narrative 01/09/2013 8:55 AM EDT Procedure Note Provider, Scanning - 01/09/2013 8:55 AM EDT Scanning Provider MEDIA MGR SCAN EXT O RDR/RSLT * SCAN DOC: LAB (01/08/2013 12:45 PM EDT) Narrative 01/08/2013 12:45 PM EDT Procedure Note Provider, Scanning - 01/08/2013 12:45 PM EDT Scanning Provider MEDIA MGR SCAN EXT O RDR/RSLT * SCAN DOC: LAB (01/08/2013 12:44 PM EDT) Narrative 01/08/2013 12:44 PM EDT Procedure Note Provider, Scanning - 01/08/2013 12:44 PM EDT Scanning Provider MEDIA MGR SCAN EXT O RDR/RSLT documented in this encounter Visit Diagnoses Diagnosis TTP (thrombotic thrombocytopenic purpura)- Primary Thrombotic microangiopathy MRSA (methicillin resistant Staphylococcus aureus) infection Methicillin resistant Staphylococcus aureus in conditions classified elsewhere and of unspecified site Bloody diarrhea Diarrhea Abdominal pain Abdominal pain, unspecified site DVT (deep venous thrombosis) Acute venous embolism and thrombosis of unspecified deep vessels of lower extremity Cardiac abnormality 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 MRSA (methicillin resistant Staphylococcus aureus) infection Methicillin resistant Staphylococcus aureus in conditions classified elsewhere and of unspecified site Bloody diarrhea Diarrhea Abdominal pain Abdominal pain, unspecified site DVT (deep venous thrombosis) Acute venous embolism and thrombosis of unspecified deep vessels of lower extremity Cardiac abnormality Unspecified congenital anomaly of heart documented in this encounter Care Teams Lab Clerk Relationship Specialty Start Date End Date Bakari Warner APRN [address] [address] PCP - General 12/13/12 01/12/13 documented as of this encounter
--- OUTSIDE RECORDS SUMMARY | 2023-12-26 11:49 | XMS_ITS | Encounter Summary ---
Author Organization [facility] Address [facility] [address] Care Team Providers Care Log Rider Name Role Phone Lonny Davila MD Primary Care Provider [phone] Reason for Visit * Reason Comments GI Problem Encounter Details Date Type Department Care Team (Late st Contact Info) Description 01/22/2013 10:00 AM EDT Office [place] [address] Susana Seals MD [facility] [place] [address] Epigastric abdominal pain (Primary Dx) Discharge Disposition: Home Social History [...] Sign Reading Time Taken Comments Blood Pressure 120/78 01/22/2013 9:59 AM EDT Pulse 72 01/22/2013 9:59 AM EDT Temperature - - Respiratory Rate - - Oxygen Saturation - - Inhaled Oxygen Concentration - - Weight 54.4 kg (120 lb) 01/22/2013 9:59 AM EDT Height 170.2 cm (5' 7) 01/22/2013 9:59 AM EDT Body Mass Index 18.79 01/22/2013 9:59 AM EDT documented in this encounter Progress Notes * Dony Deleon MD - 01/27/2013 3:22 PM EDT Please refer to Dr. Seals's note for details of this visit. I independently interviewed and examined Mrs. Henriquez and I confirm Dr. Seals's history and physical exam as documented in her note. The diagnostic and therapeutic plan was discussed and I agree with the plan of care. * Susana Seals MD - 01/22/2013 10:08 AM EDT [facility] Section of Gastroenterology and Hepatology Outpatient Consultation Reason for Visit: Epigastric pain Referred by Lonny Davila History of Present Illness: Anum Henriquez is a 52 y.o. 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 However wkup with toolstudies were negative, ADAMTS-13 negative plasma exchang stop her hospital course was complicated by b/L DVT now on coumadin, right arm DVT in the setting of right arm PICC line, MRSA bacteremia s/p treatment with daptomycin last dose 01/13/2013. Denies every having bloody diarrhea before in the [employer] [facility] abdominal pain prior to her admission, denies eating uncooked meat or eating anything usual withexception of strawberries which she had 1 week prior to episode. During hospitalization she had episode of melena underwent EGD 12/18/12 which showed normal esophagus but gastric mucosal abnormality in the gastric body characterized by erythema/submucosal hemorrhage likely related to TTP therefore started of PPI daily. She notice since her endoscopy she had increasing discomfort in epigastric areawith associated dysphagia, feels like food/water gets and is slow going down, no problem with pillsor odynophagia. She denies regurgitation food ,nausea, vomiting, heartburn symptoms, pain is not worse after eating. She notice increasing burping and having to use pillows to prop herself up to avoid feeling discomfort (epigastric region). She has 15 lb weight loss with some decrease appetite withooccasional metallic taste in her month. Reports change in her bowel habits more loose stools but denies any granda color stools, dark urine, yellowing of skin/eyes, fever/chills or pruritis. GI workup #Epigastric pain -EGD: 12/18/[address] Sullivan: Normal esophagus. Gastric mucosal abnormality in the gastric body characterized by erythema/submucosal hemorrhage likely related to TTP. Normal examined duodenum, startedon daily PPI -CT abd/pelvis oral contrast only : 01/13/2013 (presistent epigastric pain/elevated lipase) despite the lack of colonic contrast opacification, it appears that the colonic inflammatory process has resolved. Probable right-sided hydrosalpinx. Further evaluation with transvaginal pelvic ultrasound is recommended when clinically warranted. Review of Systems: Constitutional: + 15 lb weight loss since acute illness, no fever/chills/fatigue HEENT: no visual changes, no URI symptoms Cardio: no chest pain Resp: no cough, no SOB Hem/Lymph: no new lumps or bumps on body GI: see HPI +epigastric pain,+ loose stools : no dysuria Integumentary: no new rashes Musculoskeletal: no new joint pains Neuro: no new numbness, weakness in extremities All other systems negative except as above in HPI Past Medical History Diagnosis Date ??? Graves disease Past Surgical history: None Social History: reports that she quit smoking about 34 years ago. Her smoking use included Cigarettes. She has a 2.5 pack-year smoking history. She has never used smokeless tobacco. She reports that she drinks alcohol. She reports that she does not use illicit drugs. Family History Problem Relation Age of Onset ??? Stomach Cancer Father ??? Coronary Artery Disease Father ??? Bladder Cancer Father ??? Thyroid Disease Father ??? GERD Mother ??? Colorectal Cancer Neg Hx Current Outpatient Prescriptions Medication Status Sig Dispense Refill ??? ondansetron (ZOFRAN) 8 mg tablet Active Take 8 mg by mouth as needed. ??? warfarin (COUMADIN) 5 mg tablet Active Take 2 tablets by mouth daily. 60 tablet 0 ??? acetaminophen (TYLENOL) 500 mg tablet Active Take 2 tablets by mouth every 6 hours as needed for Pain or Fever. 30 tablet ??? alum-mag hydroxide-simeth (MAALOX) 200-200-20 mg/5 mL suspension Active Take 10 mLs by mouth 3 times daily as needed. 355 mL ??? aspirin 81 mg chewable tablet Active Take 81 mg by mouth daily. 30 tablet ??? LORazepam (ATIVAN) 0.5 mg tablet Active Take 1 tablet by mouth every 6 hours as needed. 30 tablet 0 ??? metoprolol succinate (TOPROL-XL) 100 mg XL tablet Active Take 1 tablet by mouth daily. 30 tablet 12 ??? omeprazole (PRILOSEC) 40 mg capsule Active Take 1 capsule by mouth daily. 30 capsule 11 ??? CALCIUM ORAL Active ??? ondansetron (ZOFRAN) 8 mg tablet Discontinued Take 1 tablet by mouth 3 times daily (before meals). Try 1/2 tablet first. If ineffective, use whole tablet 90 tablet 3 ??? promethazine (PHENERGAN) [address] 0.5 suppositories rectally every 6 hours as needed for Nausea. Ok to use 1 whole suppository if 1/2 does not work. 5 suppository 0 Allergies Allergen Reactions ??? Erythromycin Base Physical Examination: BP 120/78 Pulse 72 Ht 170.2 cm (5' 7) Wt 54.432 kg (120 lb) BMI 18.79 kg/m2 General:Pleasant, cooperative HEENT: NC/AT, PERRL, anicteric sclera, MMM Neck: soft, supple, no cervical LAD Chest: CTA bilaterally, no wheeze, rale or rhonchi CVS: S1 s2 present no m/r/g ABD:soft, non-distended, mild tenderness epigastric area, no rebound, succussion splash, hyperactive BS. Rectal: Deferred Extremities: Warm and well perfused. No clubbing, cynanosis or edema Skin:No rash or lesion Neuro: AAOx3, Grossly non-focal. Additional Testing: Reviewed available labs, imaging and endoscopy results in [facility]/C[facility] as well as Scan Docs tab. Labs: Reviewed in [facility]/Scan Docs Lab Results Component Value Date WBC 5.7 01/13/2013 HGB 10.3* 01/13/2013 HCT 32.6* 01/13/2013 MCV 92.9 01/13/2013 PLATELET 285 01/13/2013 Chemistry Component Value Date/Time NA 136 01/13/2013 1210 K 4.7 01/13/2013 1210 CL 100 01/13/2013 1210 CO2 24 01/13/2013 1210 BUN 31* 01/13/2013 1210 CREATININE 1.85* 01/13/2013 1210 Component Value Date/Time CALCIUM 10.2 01/13/2013 1210 ALKPHOS 58 01/13/2013 1210 AST 14 01/13/2013 1210 ALT 12 01/13/2013 1210 BILITOT 0.2 01/13/2013 1210 Lab Results Component Value Date ALT 12 01/13/2013 AST 14 01/13/2013 ALKPHOS 58 01/13/2013 BILITOT 0.2 01/13/2013 Lipase: 192-->378 IMPRESSION: Anum Henriquez is a 52 y.o. With Graves now off methimazole, recent diagnosis of TTP-HUS with prolonged hospitalization complicated by bilateral DVT now on coumadin, right arm DVT in the setting of right arm PICC line, MRSA bacteremia s/p treatment with daptomycin last dose 01/13/2013nd melena underwent EGD found to have erythema/submucosal hemorrhage likely related to TTP, negative for strictures or webs, started on daily PPI, melena and hematochezia now presents with epigastric pain and dysphagia. Differential diagnosis of her dysphagia maybe secondary to esophogeal candidiasis vs esophagitis (especially with recent prolonged hospitalization and antibiotic use). Her recentlabs revealed an elevated lipase which can be secondary due to poor clearance by impaired renal function, CT scan abd/pelvis non-contrast but did not reveal evidence of pancreatitis which can explainher epigastric pain although her normal LFT's (sometime can have ALT elevation). Plan to repeat LFT' s, amylase, lipase if still elevated plan for EGD with EUS to evaluate her pancreas. It is less likely that she developed esophogeal dysmotility acutely (ie achalasia, diffuse esophogeal dysmotlity or nutcracker esophagus) although she is at increase risk factor such as her age, female, hx of autoimmune disease increase it is less likely. Her prolonged hospitalization puts her at increase risk with gastroparesis however will not explain her epigastric pain. RECOMMENDATIONS: # plan for EGD # repeat LFT's, amylase, lipase if still elevated will add EUS to EGD to evaluate her pancreas # cont PPI daily # if above is negative consider esophogeal manometry Patient was seen and discussed with Dr. Dony Seals MD [place] [address] P: [phone] F: [phone] CC LONNY DAVILA MD [address] [place] [address] [place] [id number] Lonny Davila MD [address] [place] [address] [place] [address] documented in this encounter Plan of Treatment Not on file documented as of this encounter Procedures Procedure Name Priority Date/Time Associated Diagnosis Comments IGG 4 Routine 01/22/2013 11:46 AM EDT Epigastric abdominal pain TRIGLYCERIDE Routine 01/22/2013 11:46 AM EDT Epigastric abdominal pain LIPASE Routine 01/22/2013 11:46 AM EDT Epigastric abdominal pain AMYLASE Routine 01/22/2013 11:46 AM EDT Epigastric abdominal pain HEPATIC FUNCTION PANEL Routine 01/22/2013 11:46 AM EDT Epigastric abdominal pain documented in this encounter Results * (ABNORMAL) IgG 4 (01/22/2013 11:46 AM EDT) IgG 4 103.2(H) 4.0 - 86.0 mg/dL [facility] Comment: Test Performed by [facility], [facility], [address] [place] [address] Ankit Chambers M.D., Ph.D., Director of Laboratories , CLIA [id number] Blood specimen (specimen) 01/22/2013 11:46 AM EDT 01/22/2013 2:53 PM EDT Narrative Resulting Agency Comment Spec In Lab Dony Deleon MD IMMUNOLOGY ORDERABLE S [facility] * (ABNORMAL) Triglyceride (01/22/2013 11:46 AM EDT) Triglycerides 219(H) <=149 mg/dL [facility] Comment: Reference Range: Normal triglycerides: ??<150 mg/dL Borderline high: ??150-199 mg/dL High: ??200-499 mg/dL Very high: ??>rf=144 mg/dL SNEHA 2001; 285(43):6513-0145 Blood specimen (specimen) 01/22/2013 11:46 AM EDT 01/22/2013 11:58 AM EDT Narrative Resulting Agency Comment Spec In Lab Dony Deleon MD CHEMISTRY ORDERABLES Performing Organization Address [facility] Co de Phone Number [facility] * Hepatic Function Panel (01/22/2013 11:46 AM EDT) Total Protein 8.1 6.4 - 8.3 gm/dL [facility] Albumin 4.5 3.2 - 5.2 gm/dL [facility] AST 18 0 - 30 unit/L [facility] ALT 12 0 - 30 unit/L [facility] Alk Phos 52 40 - 104 unit/L [facility] Total Bilirubin 0.2 0.2 - 1.3 mg/dL [facility] Bili, Direct 0.1 0.0 - 0.3 mg/dL [facility] Blood specimen (specimen) 01/22/2013 11:46 AM EDT 01/22/2013 11:58 AM EDT Narrative Resulting Agency Comment Spec In Lab Dony Deleon MD CHEMISTRY ORDERABLES [facility] * (ABNORMAL) Amylase (01/22/2013 11:46 AM EDT) Amylase 214(H) 28 - 100 unit/[facility] Blood specimen (specimen) 01/22/2013 11:46 AM EDT 01/22/2013 11:58 AM EDT Narrative Resulting Agency Comment Spec In Lab Dony Deleon MD CHEMISTRY ORDERABLES Performing Organization Address City/[facility] Co de Phone Number [facility] * (ABNORMAL) Lipase (01/22/2013 11:46 AM EDT) Lipase 178(H) 0 - 60 unit/L [facility] Blood specimen (specimen) 01/22/2013 11:46 AM EDT 01/22/2013 11:58 AM EDT Narrative Resulting Agency Comment Spec In Lab Dony Deleon MD CHEMISTRY ORDERABLES Performing Organization Address City/[facility] Co de Phone Number [facility] documented in this encounter Visit Diagnoses Diagnosis Epigastric abdominal pain- Primary Abdominal pain, epigastric documented in this encounter Care Teams Log Rider Relationship Specialty Start Date End Date Lonny Davila MD [address] [place] [address] [place] [address] PCP - General 01/13/13 12/09/23 marilyn noble Consulting Physician Gastroenterology 01/13/13 documented as of this encounter
--- OUTSIDE RECORDS SUMMARY | 2023-12-26 11:49 | XMS_ITS | Encounter Summary ---
Author Organization Counts Include [facility] Address [facility] [place] [address] Care Team Providers Care Self Propelled Hot Mix Roller Operator Name Role Phone Jason Davila MD Primary Care Provider [phone] Encounter Details Date Type Department Care Team (Latest Contact Info) Description 01/13/2013 11:51 AM EDT - 01/13/2013 11:59 PM EDT Hospital [place] [address] Jason Davila MD [address] [place] [phone] Discharge Disposition: Home Social History Tobacco Use [...] Date/Time Associated Diagnosis Comments PROTHROMBIN TIME Routine 01/13/2013 12:1 1 PM EDT documented in this encounter Results * (ABNORMAL) Prothrombin Time (01/13/2013 12:11 PM EDT) PT 19.8(H) 12.0 - 15.0 sec [facility] Comment: [facility] Transfusion Committee Guidelines: INR less than 2.0, PTT less than OR equal to 43.5 seconds, or Fibrinogen greater than or equal to 100 mg/dl indicate adequate procoagulant activity for hemostasis in patients without underlying bleeding disorders. INR 1.6(H) 0.9 - 1.1 [facility] Blood specimen (specimen) 01/13/2013 12:11 PM EDT 01/13/2013 12:15 PM EDT Narrative Resulting Agency Comment Spec In Lab Jason Davila MD HEMATOLOGY ORDERABLE S [facility] documented in this encounter Visit Diagnoses Not on filedocumented in this encounter Care Teams Self Propelled Hot Mix Roller Operator Relationship Specialty Start Date End Date Jason Davila MD [address] [place] [address] [place] [address] PCP - General 01/13/13 12/09/23 marilyn noble Consulting Physician Gastroenterology 01/13/13 documented as of this encounter
--- OUTSIDE RECORDS SUMMARY | 2023-12-26 11:49 | XMS_ITS | Encounter Summary ---
Author Organization [facility] Address [facility] [place] [address] Care Team Providers Care Qa Intern Name Role Phone Jason Davila MD Primary Care Provider [phone] Reason for Visit * Reason Comments Congestive Heart Failure Encounter Details Date Type Department Care Team (Late st Contact Info) Description 01/28/2013 11:15 AM EDT Office Visit [address] [address] Martir Sevilla MD [facility] DR CARDIOLOGY [place] [address] CHF (congestive heart failure) (Primary Dx) Social [...] encounter Progress Notes * Provider, Gregg - 01/31/2013 12:09 PM EDT * Martir eSvilla - 01/28/2013 12:43 PM EDT Scanned note documented in this encounter Plan of Treatment Not on file documented as of this encounter Visit Diagnoses Diagnosis CHF (congestive heart failure)- Primary Congestive heart failure, unspecified documented in this encounter Care Teams Qa Intern Relationship Specialty Start Date End Date Jason Davila MD [address] [place] [address] PCP - General 01/13/13 12/09/23 marilyn noble Consulting Physician Gastroenterology 01/13/13 documented as of this encounter
--- OUTSIDE RECORDS SUMMARY | 2023-12-26 11:49 | XMS_ITS | Encounter Summary ---
Author Organization [facility] Address [facility] [place] [address] Care Team Providers Care Appliquer Name Role Phone Jason Davila MD Primary Care Provider [phone] Encounter Details Date Type Department Care Team (Late st Contact Info) Description 01/13/2013 4:10 PM EDT Follow-Up [place] [address] Shiv Salgado MD [facility] [place] [address] Osmany Lucero MD [facility] [place] [address] DELVIS (acute kidney injury) (Primary Dx) Discharge Disposition: Home Social History [...] as of this encounter Progress Notes * Brian Velazco MD - 05/26/2013 8:55 AM EST This note was incorrectly forwarded to my task list. The patient was seen by Dr. Salgado and Dr. Lucero on this day. * Shiv Salgado MD - 05/16/2013 3:09 PM EST See note from other encounter from same day documented in this encounter Plan of Treatment Not on file documented as of this encounter Visit Diagnoses Diagnosis DELVIS (acute kidney injury)- Primary Acute kidney failure, unspecified documented in this encounter Care Teams Appliquer Relationship Specialty Start Date End Date Jason Davila MD [address] [place] [address] [place] [address] PCP - General 01/13/13 12/09/23 marilyn noble Consulting Physician Gastroenterology 01/13/13 documented as of this encounter
--- OUTSIDE RECORDS SUMMARY | 2023-12-26 11:49 | XMS_ITS | Encounter Summary ---
Author Organization [facility] Address [facility] [place] [address] Care Team Providers Care Transportation Design Engineer Name Role Phone Lonny Davila MD Primary Care Provider [phone] Reason for Visit * Reason Comments Follow-up Encounter Details Date Type Department Care Team (Late st Contact Info) Description 01/22/2013 3:00 PM EDT Follow-Up Hematology Oncology at [address] [phone] Fabi Romero MD [facility] DR HEMATOLOGY/[place] [address] Acquired TTP (Primary Dx) Discharge Disposition: Home Social History [...] Sign Reading Time Taken Comments Blood Pressure 114/84 01/22/2013 3:19 PM EDT Pulse 65 01/22/2013 3:19 PM EDT Temperature 36.6 ??C (97.9 ??F) 01/22/2013 3:19 PM ED T Respiratory Rate 16 01/22/2013 3:19 PM EDT Oxygen Saturation 100% 01/22/2013 3:19 PM EDT Inhaled Oxygen Concentration - - Weight 55.6 kg (122 lb 8 oz) 01/22/2013 3:19 PM EDT Height 170.2 cm (5' 7.01) 01/22/2013 3:19 PM ED T Body Mass Index 19.18 01/22/2013 3:19 PM EDT documented in this encounter Progress Notes * Fabi Romero MD - 01/22/2013 3:44 [place] [address] FOLLOW-UP PATIENT EVALUATION PROBLEM LIST: Patient Active [...] ILLNESS: It was my pleasure to see Kaycee Henriquez back in clinic today. Kaycee Henriquez is a 52 y.o. 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 She had a very complicated hospital course. See assessment/plan below. Discharged 3 days ago after second hospitalization. Eating small amts but hard due to Nausea and abd pain. This has not changed in the last month. Saw GI this AM. Using prilosec. Normal BM. No thrombosis, bleeding, bruising now. Upper abd pain - EGD 7/10/13 Findings: The esophagus was normal. Diffuse erythematous mucosa with submucosal hemorrhages was found in the gastric body. The examined duodenum was normal. ROS Energy level: improving Pain: Stomach pain Appetite: Poor Fevers/chills/sweats:No Bruising/bleeding/melena:No Recent infections:No HEENT: negative Nausea/vomiting/diarrhea/constipation: continued N/V and epigastric pain - continual pain. Tender to the touch. No change with food. + BM daily. SOB/GUEVARA/chest pain:stable pulmonary - requiring 2 liters o2. Sometimes can go without it if totallyquiet. Change in adenopathy or other masses:none Unexpected weight loss or gain: wt loss; unable to eat Skin rashes or petechiae:No Musculoskeletal complaints:None Extremities: Negative upper and lower bilaterally Neurologic symptoms: None since first hospitalization Mood: Normal Sleep: NO Difficulty sleeping - uses ativan 0.5mg MEDS: Outpatient Prescriptions Marked as Taking for the 01/22/13 encounter (Follow-Up) with Fabi Romero MD Medication Status Sig Dispense Refill ??? ondansetron [...] 30 capsule 11 ??? CALCIUM ORAL Active Allergies: Allergies Allergen Reactions ??? Erythromycin Base INTERIM SOCIAL HISTORY Changes in job, home situation, tobacco or alcohol use: see HPI PHYSICAL EXAM BP 114/84 Pulse 65 Temp 36.6 ??C (97.9 ??F) (Oral) Resp 16 Ht 170.2 cm (5' 7.01) Wt 55.566 kg (122 lb 8 oz) BMI 19.18 kg/m2 SpO2 100% Body surface area is 1.62 meters squared. GENERAL: Kaycee Henriquez appears well and is in no [...] tenderness. LINE: nontender, no erythema LABORATORY STUDIES Results for KAYCEE HENRIQUEZ ( ) as of 01/22/2013 15:47 Ref. Range 01/13/2013 12:10 01/13/2013 12:11 01/13/2013 14:40 01/22/2013 11:46 WBC Latest Range: 4.0-10.0 x10(3)/mcL 5.7 RBC Latest Range: 3.93-5.22 x10(6)/mcL 3.51 (L) Hemoglobin Latest Range: 11.2-15.7 gm/dL 10.3 (L) Hematocrit Latest Range: 34.0-45.0 % 32.6 (L) MCV Latest Range: 79.0-94.0 fL 92.9 MCH Latest Range: 26.6-32.2 pg 29.3 MCHC Latest Range: 32.0-36.5 gm/dL 31.6 (L) RDWSD Latest Range: 35.0-46.0 fL 50.9 (H) RDWCV Latest Range: 10.9-14.4 % 15.0 (H) Platelets Latest Range: 145-370 x10(3)/mcL 285 MPV Latest Range: 9.0-12.0 fL 10.3 Neutr Abs (ANC) Latest Range: 1.50-6.30 x10(3)/mcL 3.82 Neutrophils % Latest Range: 34.0-71.0 % 67.5 Immature Gran % Latest Range: 0.00-0.66 % 0.20 Lymphocytes % Latest Range: 19.0-53.0 % 21.2 Monocytes % Latest Range: 4.0-13.0 % 4.8 Eosinophils % Latest Range: 0.0-7.0 % 4.9 Basophils % Latest Range: 0.0-2.0 % 1.4 Petty Gran Abs Latest Range: 0.00-0.05 x10(3)/mcL 0.01 Lymphocytes Abs Latest Range: 1.0-3.6 x10(3)/mcL 1.2 Monocyte Abs Latest Range: 0.2-1.0 x10(3)/mcL 0.3 Eosinophils Abs Latest Range: 0.0-0.5 x10(3)/mcL 0.3 Basophils Abs Latest Range: 0.0-0.2 x10(3)/mcL 0.1 PT Latest Range: 12.0-15.0 sec 19.8 (H) INR Latest Range: 0.9-1.1 1.6 (H) Sodium Latest Range: 135-145 mmol/L 136 Potassium Latest Range: 3.5-5.0 mmol/L 4.7 Chloride Latest Range: 98-107 mmol/L 100 CO2 Latest Range: 22-31 mmol/L 24 Anion Gap Latest Range: 5-15 mmol/L 12 BUN Latest Range: 8-18 mg/dL 31 (H) Creatinine Latest Range: 0.70-1.20 mg/dL 1.85 (H) Estimated GFR Latest Range: >=60 28 (L) Glucose Lvl Latest Range: 60-199 mg/dL 100 Calcium Latest Range: 8.5-10.5 mg/dL 10.2 Total Protein Latest Range: 6.4-8.3 gm/dL 8.5 (H) 8.1 Albumin Latest Range: 3.2-5.2 gm/dL 4.7 4.5 Total Bilirubin Latest Range: 0.2-1.3 mg/dL 0.2 0.2 Bili, Direct Latest Range: 0.0-0.3 mg/dL 0.1 0.1 Alk Phos Latest Range: 40-104 unit/L 58 52 AST Latest Range: 0-30 unit/L 14 18 ALT Latest Range: 0-30 unit/L 12 12 Amylase Latest Range: 28-100 unit/L 214 (H) Lipase Latest Range: 0-60 unit/L 378 (H) 178 (H) CK, Total Latest Range: 0-160 unit/L 53 Triglycerides Latest Range: <=149 mg/dL 219 (H) T3, Total Latest Range: 75-170 ng/dL 62 (L) T4, total Latest Range: 5.1-10.8 mcg/dL 4.9 (L) Free T4 Latest Range: 0.90-1.60 ng/dL 0.96 TSH Latest Range: 0.27-4.20 mcIU/mL 0.63 T Uptake Latest Range: 0.80-1.30 ratio 1.16 FTI Latest Range: 4.5-9.5 mcg/dL 4.2 (L) CT ABDOMEN & PELVIS WO CONTRAST No range found Rpt (A) Results for KAYCEE HENRIQUEZ ( ) as of 01/08/2013 12:37 [...] Latest Range: 110-220 unit/L 198 [place]/07/13 [place] 01/22/13 Wbc 5.8 3.4 hgb 9.9 10.2 plt 281k 262 ANC 3.7 3.7 BUN 29 31 Creat 2.1 1.8 LFT Normal normal LDH 521 (normal) 497 (nl) CPK 35 INR 3.5 (PCP to follow) RADIOLOGY STUDIES REVIEWED: none ASSESSMENT/PLAN: It was my pleasure to see Ms. Henriquez in clinic today. I initially met Kaycee while she was hospitalized for her initial presentation of TTP. Her history is as follows: Kaycee initially presented on December 13, 2012, after several days of hospitalization at [facility]. She initially presented there with bloody diarrhea and abdominal distention. During her course there, she developed a drop in her hemoglobin and platelet count and slowly developed mild renal insufficiency. At that point, TTP was suspected, and she was transferred to [facility]. 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 She was hospitalized at [facility] from December 13 to December 27, 2012. [...] time. We will continue to follow closely. I would Recommend ongoing CBC's as follows - see below. 2. Renal insufficiency: Her baseline creatinine is approximately 2. Today it is 1.8 so she continues to improve. We would anticipate a very slow improvement of her renal function over the coming months. She had followup with Dr. Brian Velazco last week. 3. Endocrinology: She has a history of Graves disease, and her methimazole has been on hold. She will follow up with Endocrinology. 4. Acute systolic CHF: As listed above, her EF was approximately 40% with global hypokinesis. Repeat TTE later this week. 5. Hypoxia: Now weaned off of oxygen. 6. Abdominal complaints: As listed above, she complains of ongoing nausea and abdominal pain, mainly in the epigastric and bilateral upper quadrants. It Initially slowly improved but in the last 2 weeks has not gotten better. Her last EGD showed hemorrhagic mucosa, and we may need to consider repeating this in the future if her symptoms do not improve. She remains on Prilosec. Follow up CT scan showed resolution of all bowel thickening. 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 7. MRSA bacteremia: She completed her daptomycin on January 14, 2013. That completed a three-week course of combined vancomycin and [...] on how her TTP and HUS proceed. Kaycee is doing beautifully and other than the abd pain there are no signs of relapse. I explainedthat TTP can relapse and if it does, it often does so in the first months post-diagnosis. So careful monitoring during this time is warranted. I explained that relapse does not include the GI sx so we need to follow her H/H and plt and LDH and creat closely. If she notes fatique or easy bleeding/bruising then she should call her PCP and have labs checked. She is being followed by [facility] and I do not think I am adding a lot at this point. I would recommend the followin. Labs every other week through end of March then monthly through end of year. Specifically follow H/H, plt, creat and LDH. Should she note any new symptoms she will call her PCP and get labs checked. 2. I am happy to see pt if there is any concern for relapse. 3. GI consult is following her abd pain. EGD planned. 4. Dr Davila is following up on fallopian tube anomaly. US scheduled. 5. Wt loss - hopefully she will be able to gain wt if her abd pain resolves. 6. Repeat ECHO is scheduled. 7. Dr Davila will follow anticoagulation. I would recommend 3-6 mos of coumadin given that she hadand might still have an inflammatory state that puts her at higher risk for recurrence or slower resolution. I remain available for follow up at any time. Just call. total time: 30 time in counsellin Copy LONNY DAVILA MD documented in this encounter Procedure Notes * Provider, Scanning - 04/11/2013 1:04 PM EDTAssociated Order(s): SCAN DOC: LAB * Provider, Scanning - 04/03/2013 10:02 AM EDTAssociated Order(s): SCAN DOC: LAB * Provider, Scanning - 03/26/2013 5:36 PM EDTAssociated Order(s): SCAN DOC: LAB * Provider, Scanning - 03/19/2013 5:10 PM EDTAssociated Order(s): SCAN DOC: LAB * Provider, Scanning - 03/12/2013 11:02 AM EDTAssociated Order(s): SCAN DOC: LAB * Provider, Scanning - 03/05/2013 11:03 AM EDTAssociated Order(s): SCAN DOC: LAB * Provider, Scanning - 02/26/2013 5:42 PM EDTAssociated Order(s): SCAN DOC: LAB * Provider, Scanning - 02/19/2013 1:10 PM EDTAssociated Order(s): SCAN DOC: LAB * Provider, Scanning - 02/05/2013 10:42 AM EDTAssociated Order(s): SCAN DOC: LAB documented in this encounter Plan of Treatment Not on file documented as of this encounter Procedures Procedure Name Priority Date/Time Associated Diagnosis Comments LAB SCAN 04/11/2013 1:04 PM EDT LAB SCAN 04/03/2013 10:02 AM EDT LAB SCAN 03/26/2013 5:36 PM EDT LAB SCAN 03/19/2013 5:10 PM EDT LAB SCAN 03/12/2013 11:02 AM EDT LAB SCAN 03/05/2013 11:03 AM EDT LAB SCAN 02/26/2013 5:42 PM EDT LAB SCAN 02/19/2013 1:10 PM EDT LAB SCAN 02/05/2013 10:42 AM EDT documented in this encounter Results * SCAN DOC: LAB (04/11/2013 1:04 PM EDT) Narrative 04/11/2013 1:04 PM EDT Procedure Note Provider, Scanning - 04/11/2013 1:04 PM EDT Scanning Provider MEDIA MGR SCAN EXT O RDR/RSLT * SCAN DOC: LAB (04/03/2013 10:02 AM EDT) Narrative 04/03/2013 10:02 AM EDT Procedure Note Provider, Scanning - 04/03/2013 10:02 AM EDT Scanning Provider MEDIA MGR SCAN EXT O RDR/RSLT * SCAN DOC: LAB (03/26/2013 5:36 PM EDT) Narrative 03/26/2013 5:36 PM EDT Procedure Note Provider, Scanning - 03/26/2013 5:36 PM EDT Scanning Provider MEDIA MGR SCAN EXT O RDR/RSLT * SCAN DOC: LAB (03/19/2013 5:10 PM EDT) Narrative 03/19/2013 5:10 PM EDT Procedure Note Provider, Scanning - 03/19/2013 5:10 PM EDT Scanning Provider MEDIA MGR SCAN EXT O RDR/RSLT * SCAN DOC: LAB (03/12/2013 11:02 AM EDT) Narrative 03/12/2013 11:02 AM EDT Procedure Note Provider, Scanning - 03/12/2013 11:02 AM EDT Scanning Provider MEDIA MGR SCAN EXT O RDR/RSLT * SCAN DOC: LAB (03/05/2013 11:03 AM EDT) Narrative 03/05/2013 11:03 AM EDT Procedure Note Provider, Scanning - 03/05/2013 11:03 AM EDT Scanning Provider MEDIA MGR SCAN EXT O RDR/RSLT * SCAN DOC: LAB (02/26/2013 5:42 PM EDT) Narrative 02/26/2013 5:42 PM EDT Procedure Note Provider, Scanning - 02/26/2013 5:42 PM EDT Scanning Provider MEDIA MGR SCAN EXT O RDR/RSLT * SCAN DOC: LAB (02/19/2013 1:10 PM EDT) Narrative 02/19/2013 1:10 PM EDT Procedure Note Provider, Scanning - 02/19/2013 1:10 PM EDT Scanning Provider MEDIA MGR SCAN EXT O RDR/RSLT * SCAN DOC: LAB (02/05/2013 10:42 AM EDT) Narrative 02/05/2013 10:42 AM EDT Procedure Note Provider, Scanning - 02/05/2013 10:42 AM EDT Scanning Provider MEDIA MGR SCAN EXT O RDR/RSLT documented in this encounter Visit Diagnoses Diagnosis Acquired TTP- Primary Thrombotic microangiopathy documented in this encounter Care Teams Transportation Design Engineer Relationship Specialty Start Date End Date Lonny Davila MD [address] [place] [address] [place] [address] PCP - General 01/13/13 12/09/23 marilyn noble Consulting Physician Gastroenterology 01/13/13 documented as of this encounter
--- OUTSIDE RECORDS SUMMARY | 2023-12-26 11:49 | XMS_ITS | Encounter Summary ---
Author Organization [facility] Address [facility] [place] [address] Care Team Providers Care Slot Floorperson Name Role Phone Jason Davila MD Primary Care Provider [phone] Encounter Details Date Type Department Care Team (Late st Contact Info) Description 02/05/2013 3:30 PM EDT - 02/05/2013 5:00 PM EDT [place] [address] Jasper Young MD [facility] DR [place] [address] UPPER EUS- ENDOSCOPIC ULTRASOUND (WRVU 3.47) Social History Tobacco Use Types Packs/Day Years [...] Sign Reading Time Taken Comments Blood Pressure 102/60 02/05/2013 6:40 PM EDT Pulse 58 02/05/2013 6:40 PM EDT Temperature - - Respiratory Rate 16 02/05/2013 6:40 PM EDT Oxygen Saturation 100% 02/05/2013 6:40 PM EDT Inhaled Oxygen Concentration - - Weight - - Height - - Body Mass Index - - documented in this encounter Discharge Instructions * Discharge Instructions* Jose Kaur RN - 02/05/2013 6:40 PM EDT You may have received medication before and/or during your procedure which effects judgement and reaction time. Do not drive, operate machinery, drink alcoholic beverages, or make important decisions for 24 hours. Be careful on stairs, as you may be unsteady on your feet. You may eat a regular diet as tolerated. Do not smoke if you are alone. IV site -- slight redness or tenderness is normal. You may use a warm compress. If tenderness and redness increases or foul drainage occurs please contact your M.D. Please call [phone] before 5 pm with problems, questions or concerns. After 5pm call [phone] and ask to speak with the felt checker electronic assembly. Discharge instructions reviewed with patient who expresses understanding. * Patient Instructions* Jasper Young MD - 02/05/2013 6:37 PM EDT Please see Recommendations in the Provation procedure report which is documented in the procedural note in E-DH. * Attachments The following attachments cannot be sent through Care Everywhere. * ENDOSCOPIC ULTRASOUND (ORAL): WHAT TO EXPECT AT HOME (SYRIAN) documented in this encounter Medications at Time of Discharge [...] 12/27/2012 12/27/2013 documented as of this encounter H&P Notes * Jasper Young MD - 02/05/2013 6:13 PM EDT Gastroenterology and Hepatology Pre-Procedure History and Physical Exam Procedure: EUS: /EGD Indication: Epigastric fullness-s/p complicated hospital stay for TTP-HUS. Also with elevated amylase/lipase but normal CT. Patient Active Problem List Diagnosis Code ??? Hemorrhagic colitis 558.9 ??? DVT (deep venous thrombosis) 453.40 ??? Cardiac abnormality 746.9 ??? 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 History of MRSA infection V12.04 ??? H/O Graves' disease V12.29 ??? 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 Risks and benefits of the procedure explained to the patient. Consent signed. documented in this encounter Miscellaneous Notes * Op Note - Jasper Young MD - 02/05/2013 6:37 PM EDT [facility] [place] Patient Name: Anum Henriquez : [id number] MR#: [id number] Case Date: 02/05/2013 Surgeon: Surgeon(s) and Role: * Jasper Young MD - Primary * Rob Decker MD - Fellow-Interventional Preoperative diagnosis: dysphagia elevated lfts,amylase,lipase eval pancreas Postoperative diagnosis: * No post-op diagnosis entered * Procedure(s): UPPER EUS- ENDOSCOPIC ULTRASOUND EGD, UPPER GI ENDOSCOPY Full procedure note is documented under the Procedure section of eD. * Miscellaneous - Provider, Scanning - 02/05/2013 4:16 PM EDT documented in this encounter Plan of Treatment Not on file documented as of this encounter Procedures Procedure Name Priority Date/Time Associated Diagnosis Comments UPPER EUS-ENDOSCOPIC ULTRASOUND Routine 02/05/2013 6:16 PM EDT EGD, UPPER GI ENDOSCOPY (WRVU 2.09) 02/05/2013 6:16 PM EDT dysphagia elevated lfts,amylase,lipase eval pancreas UPPER EUS- ENDOSCOPIC ULTRASOUND (WRVU 3.47) 02/05/2013 6:16 PM EDT dysphagia elevated lfts,amylase,lipase eval pancreas documented in this encounter Results * UPPER EUS-ENDOSCOPIC ULTRASOUND (02/05/2013 6:16 PM EDT) Pathologist [facility] UPPER ENDOSCOPIC ULTRASOUND [facility] Endoscopy Patient Name: Anum Henriquez ? Procedure Date: 02/05/2013 6:16 PM ? Date of : 1960 ? Age: 52 ? Order #: [id number] ? Procedure: ? Upper EUS Indications: ? Abnormal pancreatic tests, ? autoimmune panc, esophagitis, ? dyspepsia Providers: ? Jasper Young MD, Rob Pennington ? MD Jeronimo, Magda Luna RN Referring MD: ?Jason Davila MD Medicines: ? Monitored Anesthesia Care Complications: ? No immediate complications. Procedure: ? Pre-Anesthesia Assessment: ? - Prior to the procedure, a History ? and Physical was performed, and ? patient medications, allergies and ? sensitivities were reviewed. The ? patient's tolerance of previous ? anesthesia was reviewed. ? - The risks and benefits of the ? procedure and the sedation options ? and risks were discussed with the ? patient. All questions were answered ? and informed consent was obtained. ? - Mental Status Examination: alert ? and oriented. Airway Examination: ? normal oropharyngeal airway and neck ? mobility. Respiratory Examination: ? clear to auscultation. CV ? Examination: normal. ? - ASA Grade Assessment: III - A ? patient with severe systemic disease. ? - Anesthesia using IV propofol was ? determined to be medically necessary ? for this procedure based on complex ? procedure (ERCP, EUS). ? The procedure, indications, benefits, ? risks and alternatives were explained ? to the patient. Specifically ? discussed were potential ? complications including, but not ? limited to, bleeding, perforation, ? infection, missing a cancer, and ? adverse medication reactions.The ? Endosonoscope was introduced through ? the mouth, and advanced to the third ? part of duodenum. The upper EUS was ? accomplished without difficulty. The ? patient tolerated the procedure well. ? Findings: ? Endoscopic Finding : ? The examined esophagus was normal. ? The entire examined stomach was normal. ? The examined duodenum was normal. ? Endosonographic Finding : ? There was no sign of significant endosonographic ? abnormality in the ampulla. ? There was no sign of significant endosonographic ? abnormality in the common bile duct, in the common ? hepatic duct, in the bifurcation of the common ? hepatic duct and in the gallbladder. ? There was no sign of significant endosonographic ? abnormality in the entire examined liver. ? There was no sign of significant endosonographic ? abnormality in the entire pancreas. No masses, no ? calcifications, the pancreatic duct was well ? visualized from ampulla to tail, the pancreatic duct ? was regular in contour (2mm, 1.5mm, and 0.7mm in the ? head, body, and tail respectively). ? Impression: ?- Normal esophagus. ? - Normal stomach. ? - Normal examined duodenum. ? - There was no sign of significant ? pathology in the ampulla. ? - There was no sign of significant ? pathology in the common bile duct, in ? the common hepatic duct, in the ? bifurcation of the common hepatic ? duct and in the gallbladder. ? - There was no evidence of ? significant pathology in the entire ? examined liver. ? - There was no sign of significant ? pathology in the entire pancreas. Recommendation: ?- Discharge patient to home (via ? wheelchair). ? - Return to GI clinic as previously ? scheduled. ? - The attending physician listed ? above was present for the entire ? procedure. ? Attending Participation: ? I was present and participated during the entire ? procedure, including non-ulloa portions. ? I was present and participated during the entire ? procedure, including non-ulloa portions. ? _ Jasper Young MD 02/05/2013 6:37 PM This report has been signed electronically. Number of Addenda: 0 Note Initiated On: 02/05/2013 6:16 PM PROVATION 02/05/2013 6:16 PM EDT Jason Davila MD GENERAL SURGICAL ORD ERABLES Performing Organization Address City/State/[facility] Co de Phone Number PROVATION documented in this encounter Visit Diagnoses Not on filedocumented in this encounter Active and Recently Administered Medications Care Teams Slot Floorperson Relationship Specialty Start Date End Date Jason Davila MD [address] [place] [id number] PCP - General 01/13/13 12/09/23 marilyn noble Consulting Physician Gastroenterology 01/13/13 documented as of this encounter
--- OUTSIDE RECORDS SUMMARY | 2023-12-26 11:49 | XMS_ITS | Encounter Summary ---
Author Organization [facility] Address [facility] [place] [address] Care Team Providers Care Lead Vulcanizing Operator Name Role Phone Lonny Davila MD Primary Care Provider [phone] Reason for Referral * Consultation (Routine) - Closed Specialty Diagnoses / Procedures Referred By Phan pham Referred To Contact Gastroenterology Diagnoses Abdominal pain Brian Griffin MD [facility] [place] [address] [facility] [address] [place] [address] Referral ID Status Reason Start Date Expiration Date V isits Requested Visits Authorized [id number] Closed Consult, Test & Treat 01/15/2013 07/14/2013 1 1 Reason for Visit * Reason Comments Acute Kidney Injury Encounter Details Date Type Department Care Team (Latest Contact Info) Description 01/13/2013 3:30 PM EDT Follow-Up Nephrology [place] [id number] Brian Griffin MD [facility] [place] [address] Shiv Salgado MD [facility] [place] [address] Abdominal pain (Primary Dx); History of TTP (thrombotic thrombocytopenic purpura); DELVIS (acute kidney injury) Discharge Disposition: Home Social History Tobacco Use [...] Sign Reading Time Taken Comments Blood Pressure 120/74 01/13/2013 3:12 PM EDT Pulse 57 01/13/2013 3:12 PM EDT Temperature - - Respiratory Rate 18 01/13/2013 3:12 PM EDT Oxygen Saturation - - Inhaled Oxygen Concentration - - Weight 56.7 kg (125 lb) 01/13/2013 3:12 PM EDT Height - - Body Mass Index 19.62 01/08/2013 12:13 PM EDT documented in this encounter Progress Notes * Brian Griffin MD - 01/14/2013 11:56 AM EDT Renal Staff: Patient seen and examined with Dr. Salgado and I agree with his note and make the following additional comments: overall much better but quite thin and eating poorly. Complains of epigastric pain and anorexia. No f/c/s, headaches, cp or sob. Exam notable for wt loss of 25 lbs compared to entry although some of that may have been fluid. She has no abd distention, guarding or rebound but is tender to palp in mid and upper abd. Lipase is high. CT nondx (incidental abnormality of salpinx noted). Will see if she can get gi consultation locally. May need specific imaging of panc. If daptomycin the culprit, should impove. We arranged for picc to be removed. Changed her from pepcid to prilosec to see if sx radha. Will need f/u on hydrosalpinx as well. DELVIS better and should get further improvement. Heme parameters all ok. Renal fu in one month. I spoke with Dr. Davila who requests that we ask that the patient be seen by GI here. I will make the referral. * Shiv Salgado MD - 01/13/2013 4:24 PM EDT [facility] Nephrology/Hypertension Follow Up Anum Henriquez [id number] 1960 ID: [id number] y.o. female for f/u visit for TTP. 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 01/03/13 01/13/13 Flynn Frausto MD [facility] C-Mn 500-400 mg Cap 12/03/09 01/13/13 Allergies / ADRs: Allergies Allergen Reactions ??? Erythromycin Base PHYSICAL EXAM: Filed Vitals: 01/13/13 1512 BP: 120/74 Pulse: 57 Resp: 18 Gen - AAO x 3 in NAD [...] 01/13/2013 ALKPHOS 58 01/13/2013 BILITOT 0.2 01/13/2013 Lab Results Component Value Date LIPASE 378* 01/13/2013 Impression/ Plan: 1. 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 DELVIS, non ologuric Improving 3. HTN Stable Will discontinue lisinopril 4. Acute gastritis ? Related to antibiotics-anticipate to improve as daptomycin course completed 01/13 Continue omeprazole and add carfate Elevated lipase noted but CT scan a/p did not show any ac pancreatitis F/u w GI EGD on 12/18-submucosal bleed 5. Probable rt hydrosalpinx -f/u w PCP/lip reading teacher 6. Graves disease F/u w Endo on 01/14 Plan: Follow up: 1 month Seen and Discussed w/ Dr. Mora Salgado MD Nephrology Fellow Pager# [phone] LONNY DAVILA MD [address] [place] [address] [place] [address] documented in this encounter Miscellaneous Notes * Addendum Note - Brian Griffin MD - 01/15/2013 10:47 AM EDTAddended by: BRIAN GRIFFIN on: 01/15/2013 10:47 AM Modules accepted: Orders documented in this encounter Plan of Treatment Scheduled Referrals Name Type Priority Associated Diagnoses Order Schedule Referral to Gastroenterology Outpatient Referral Routine Abdominal pain Ordered: 01/15/2013 documented as of this encounter Visit Diagnoses Diagnosis Abdominal pain- Primary Abdominal pain, unspecified site History of TTP (thrombotic thrombocytopenic purpura) Personal history of diseases of blood and blood-forming organs DELVIS (acute kidney injury) Acute kidney failure, unspecified documented in this encounter Care Teams Lead Vulcanizing Operator Relationship Specialty Start Date End Date Lonny Davila MD [address] [place] [address] [place] [address] PCP - General 01/13/13 12/09/23 marilyn noble Consulting Physician Gastroenterology 01/13/13 documented as of this encounter
--- OUTSIDE RECORDS SUMMARY | 2023-12-26 11:49 | XMS_ITS | Encounter Summary ---
Author Organization [facility] Address [facility] [place] [address] Care Team Providers Care Almond Sorter Name Role Phone Ofelia Costello APRN Primary Care Provider [phone] Encounter Details Date Type Department Care Team (Late st Contact Info) Description 01/06/2013 Orders [place] [address] Clovis Varner MD [facility] [place] [address] Hyperthyroidism (Primary Dx) Social History Tobacco Use Types [...] documented as of this encounter Results * T3 (02/05/2013 1:09 PM EDT) T3, Total 102 75 - 170 ng/dL [facility] Blood specimen (specimen) 02/05/2013 1:09 PM EDT 02/05/2013 1:12 PM EDT Narrative Resulting Agency Comment Spec In Lab Clovis Varner MD CHEMISTRY ORDERAB LES Performing Organization Address City/[facility] Co de Phone Number BAR PINEDAIUM * T4, free (02/05/2013 1:09 PM EDT) Free T4 1.11 0.90 - 1.60 ng/dL CERELIO ARCOSENNIUM Blood specimen (specimen) 02/05/2013 1:09 PM EDT 02/05/2013 1:12 PM EDT Narrative Resulting Agency Comment Spec In Lab Clovis Varner MD CHEMISTRY ORDERAB LES Performing Organization Address [facility] Co de Phone Number BAR ARCOSENNIUM * TSH (02/05/2013 1:09 PM EDT) TSH 1.75 0.27 - 4.20 mcIU/mL CERELIO ARCOSENNIUM Blood specimen (specimen) 02/05/2013 1:09 PM EDT 02/05/2013 1:12 PM EDT Narrative Resulting Agency Comment Spec In Lab Clovis Varner MD CHEMISTRY ORDERAB LES Performing Organization Address [facility] Co de Phone Number BAR NOE documented in this encounter Visit Diagnoses Diagnosis Hyperthyroidism- Primary Thyrotoxicosis without mention of goiter or other cause, without mention of thyrotoxic crisis or storm documented in this encounter Care Teams Almond Sorter Relationship Specialty Start Date End Date Ofelia Costello APRN [address] [address] PCP - General 12/13/12 01/12/13 documented as of this encounter
--- OUTSIDE RECORDS SUMMARY | 2023-12-26 11:49 | XMS_ITS | Encounter Summary ---
Author Organization [facility] Address [facility] [place] [address] Care Team Providers Care Mine Captain Name Role Phone Jason Davila MD Primary Care Provider [phone] Encounter Details Date Type Department Care Team (Latest Contact Info) Description 02/05/2013 1:46 PM EDT - 02/05/2013 7:11 PM EDT Hospital Encounter [place] [address] Jasper Young MD [facility] DR [place] [address] Discharge Disposition: Home Social History Tobacco Use [...] occurs please contact your M.D. Please call [phone] before 5 pm with problems, questions or concerns. After 5pm call [phone] and ask to speak with the inside sales supervisor medical science liaison. Discharge instructions reviewed with patient who expresses understanding. * Patient Instructions* Jasper Young MD - 02/05/2013 6:37 PM EDT Please see Recommendations in the Provation procedure report which is documented in the procedural note in E-DH. * Attachments The following attachments cannot be sent through Care Everywhere. * ENDOSCOPIC ULTRASOUND (ORAL): WHAT TO EXPECT AT HOME (ICELANDIC) documented in this encounter Medications at Time [...] Young MD - 02/05/2013 6:37 PM EDT [facility] Operative Note Patient Name: Anum Henriquez : [id number] MR#: [id number] Case Date: 02/05/2013 Surgeon: Surgeon(s) and Role: [...] UPPER EUS-ENDOSCOPIC ULTRASOUND (02/05/2013 6:16 PM EDT) UPPER ENDOSCOPIC ULTRASOUND [facility] Endoscopy Patient Name: Anum Henriquez ? Procedure Date: 02/05/2013 6:16 PM ? Date of : 1960 ? Age: 52 ? Order #: [id number] ? Procedure: ? Upper EUS Indications: ? Abnormal pancreatic tests, ? autoimmune panc, esophagitis, ? dyspepsia Providers: ? Jasper Young MD, Rob Pennington ? MD Jeronimo, Magda Luna RN Referring : ?Jason Davila MD Medicines: ? Monitored Anesthesia [...] GENERAL SURGICAL ORD ERABLES Performing Organization Address City/State/ZIP Co nd Phone Number PROVATION documented in this encounter Visit Diagnoses Not on filedocumented in this encounter Active and Recently Administered Medications Care Teams Mine Captain Relationship Specialty Start Date End Date Jason Davila MD [address] [place] [address] [place] [address] PCP - General 01/13/13 12/09/23 marilyn noble Consulting Physician Gastroenterology 01/13/13 documented as of this encounter
--- OUTSIDE RECORDS SUMMARY | 2023-12-26 11:49 | XMS_ITS | Encounter Summary ---
Author Organization [facility] Address [facility] [place] [address] Care Team Providers Care Cryptanalyst Name Role Phone Jason Davila MD Primary Care Provider [phone] Reason for Visit * Reason Comments Graves' Disease Encounter Details Date Type Department Care Team (Late st Contact Info) Description 01/14/2013 10:30 AM EDT Office [place] [address] Clovis Clark MD [facility] [place] [address] Minor Kebede MD [facility] [place] [address] Graves disease (Primary Dx) Discharge Disposition: Home Social History [...] Sign Reading Time Taken Comments Blood Pressure 102/67 01/14/2013 10:06 AM EDT Pulse 61 01/14/2013 10:06 AM EDT Temperature - - Respiratory Rate - - Oxygen Saturation - - Inhaled Oxygen Concentration - - Weight 56.6 kg (124 lb 12.8 oz) 013 10:06 AM EDT Height - - Body Mass Index 19.55 01/13/2013 4:28 PM EDT documented in this encounter Progress Notes * Clovis Clark MD - 01/14/2013 11:32 AM EDT I have seen the patient [...] ago at recent admission). CLOVIS CLARK MD documented in this encounter Plan of Treatment Not on file documented as of this encounter Visit Diagnoses Diagnosis Graves disease- Primary Toxic diffuse goiter without mention of thyrotoxic crisis or storm documented in this encounter Care Teams Cryptanalyst Relationship Specialty Start Date End Date Jason Davila MD [address] [place] [address] [place] [address] PCP - General 01/13/13 12/09/23 marilyn noble Consulting Physician Gastroenterology 01/13/13 documented as of this encounter
--- OUTSIDE RECORDS SUMMARY | 2023-12-26 11:49 | XMS_ITS | Encounter Summary ---
Author Organization [facility] Address [facility] [place] [address] Care Team Providers Care Visiting Professor Name Role Phone Jason Davila MD Primary Care Provider [phone] Reason for Visit * Reason Comments Follow-up Encounter Details Date Type Department Care Team (Late st Contact Info) Description 01/13/2013 4:15 PM EDT Follow-Up [place]ious [place] [address] Ani Hernandez APRN [facility] [place] [address] shelter current use of antibiotics (Primary Dx); Bacteremia Discharge Disposition: Home Social History Tobacco Use [...] Time Taken Comments Blood Pressure 120/74 01/13/2013 4:28 PM EDT Pulse 57 01/13/2013 4:28 PM EDT Temperature 36.8 ??C (98.2 ??F) 01/13/2013 4:28 PM ED T Respiratory Rate - - Oxygen Saturation 98% 01/13/2013 4:28 PM EDT Inhaled Oxygen Concentration - - Weight 56.7 kg (125 lb) 01/13/2013 4:28 PM EDT Height 170.2 cm (5' 7) 01/13/2013 4:28 PM EDT Body Mass Index 19.58 01/13/2013 4:28 PM EDT documented in this encounter Patient Instructions * Patient Instructions* Magalys Tanner, VETERINARY SURGEON - 01/13/2013 4:31 PM EDT Welcome to [employer], your secure online access to your electronic medical record at [facility]. Using [employer] you will be able to send messages to your providers, view your test results, renew prescriptions, schedule appointments, and much more. Follow these instructions to enter your personal [employer] account for the first time: 1. Start your internet browser and type [email or web address] into the address bar. 2. In the New User box on the right-hand side of the Welcome page click the link that states, ???I have an activation code.?? 3. On the Identification page, follow these steps: a) Enter your [employer] activation code: [email or web address] b) Expires: 2013 4:31 PM IMPORTANT: This Activation Code will on the above mentioned date. If you do not sign up for [employer] by this date, you will need to request another activation code. c) Enter your date of , using the calendar tool provided. d) Enter your Zip code. e) Select ???submit?? to go to the next page. 4. On the Create Account page, follow these steps: a) Create a [employer] username. This can???t be changed, so choose one you won???t forget. b) Create a password that???s at least six characters long, and that contains at least two numbers.Your password can be changed at any time. Confirm your password by entering it once more. c) Enter your email address. This will be used to alert you to new information. Confirm your email address by entering it once more. d) Enter your security question. This will be used if you forget your password. e) Enter your security answer. Confirm your security answer by entering it once more. f) Select ???submit?? to view your electronic medical record. If you have any questions about [employer] or your Access Code, please call for [place], for [place] or for [place]. If you need technical support, please e-mail [email or web address]. Remember, [employer] is NOT for urgent needs! Always dial 911 for medical emergencies. documented in this encounter Progress Notes * Ani Hernandez APRN - 01/15/2013 10:25 AM EDT ID Diagnosis: MRSA bacteremia, line infection Microorganisms being treated: MRSA Antibiotic (one line for each ABx): daptomycin 6mg/kg; dosing q48 (first dose saturday 01/06) Start date: 01/04/2013 Anticipated stop date: 01/14/2013 Ms Henriquez comes to clinic for picc line removal. Picc line removed with 38cm intact. Site benign. Dressed with iodophor, 2x2 and tegaderm. Pt instructed on care of site and signs of infection. She will call with any questions or concerns. documented in this encounter Plan of Treatment Not on file documented as of this encounter Visit Diagnoses Diagnosis shelter current use of antibiotics- Primary Encounter for long-term (current) use of antibiotics Bacteremia documented in this encounter Care Teams Visiting Professor Relationship Specialty Start Date End Date Jason Davila MD [address] [place] [address] [place] [address] PCP - General 01/13/13 12/09/23 marilyn noble Consulting Physician Gastroenterology 01/13/13 documented as of this encounter
--- OUTSIDE RECORDS SUMMARY | 2023-12-26 11:50 | XMS_ITS | Encounter Summary ---
Author Organization [facility] Address [facility] [place] [address] Care Team Providers Care Nitrate Operator Name Role Phone Ofelia Costello APRN Primary Care Provider [phone] Encounter Details Date Type Department Care Team (Late st Contact Info) Description 12/30/2012 Telephone Hematology [place] [address] Dee Ocampo MD [facility] HEMATOLGY/[place] [address] Social History Tobacco Use Types Packs/Day Years Used Date Smoking Tobacco: Former Cigarettes Q uit: 06/15/1978 Smokeless Tobacco: Never Alcohol Use Standard Drinks/Week Comments Yes 0 (1 standard drink = 0.6 oz pur e alcohol) socially Sex and Gender Information Value Date Recorded Sex Assigned at Female 12/03/2023 1:56 PM EDT Gender Identity Female 12/03/2023 1:56 PM EDT Sexual Orientation Straight 12/03/2023 1: 56 PM EDT documented as of this encounter Miscellaneous Notes * Telephone Encounter - Dee Ocampo - 12/30/2012 8:19 AM EDT Hematology/Oncology Fellow Phone Note Call is from: Outside Provider: Dr. Echols, from [facility] Reason for call: Mgmt coordination for new SOB Brief history: Ms. Henriquez presented to [facility] with new acute SOB with sat initially 84-86% on RAup to 95% with 3L. No clear precipitant, not signs of infection including fever, cough, diarrhea. 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 She was d/dick from [facility] after admission for TTP-HUS complicated by GIB (Hb 8.1 at d/c and 7.8 at [place]t also stable at 299, were 320 here), LE DVTs, small pleural effusions, renal insufficiency with Cr 2.0 (currently stable at 2.1), and MRSA bacteremia (possibly related to PICC line) for which she was d/dick on vancomycin. She is not c/o chest pain. She is afebrile and BP 150s/80 but is subjectively SOB and desats with minimal exertion even on O2.CXR shows hazy opacity/infiltrate at the bases but also very shallow breath so hard to interpret. ?management coordination. A/P: Difficult to attribute this to TTP-HUS with stable plt count. PE is possible given DVT, but these were reportedly very peripheral and she was d/dick on lovenox bridge to warfarin. Enlarging effusion vs. cardiac involvement are also thoughts. D/w Dr. Jarvis and Dr. Echols that she needs eval ofchest with NON-Contrast CT (limited by renal function) to eval effusion, echo for cardiac function and can also eval effusions/pericardial disease, redraw cultures. Potentially transfer if declining and workup not immediately helpful in reversing her condition. documented in this encounter Plan of Treatment Not on file documented as of this encounter Visit Diagnoses Not on filedocumented in this encounter Care Teams Nitrate Operator Relationship Specialty Start Date End Date Ofelia Costello APRN [address] [address] PCP - General 12/13/12 01/12/13 documented as of this encounter
--- OUTSIDE RECORDS SUMMARY | 2023-12-26 11:50 | XMS_ITS | Encounter Summary ---
Author Organization [facility] Address [facility] [place] [address] Care Team Providers Care Senior Accounting Clerk Name Role Phone Ofelia Costello APRN Primary Care Provider [phone] Encounter Details Date Type Department Care Team (Late st Contact Info) Description 12/28/2012 Telephone Hematology [place] [address] Demetris Hall MD [facility] DR HEMATOLOGY/[place] [address] Social History Tobacco Use Types Packs/Day Years [...] encounter Miscellaneous Notes * Telephone Encounter - Demetris Hall MD - 12/28/2012 3:34 PM EDT She was just discharged yesterday. See d/c summary. Her VNA called today. She is having severe nausea that is refractory to the compazine that she has.She is otherwise feeling well. Taking her pills, but not able to eat anything. She is vomiting some. She is taking her omeprazole. We reviewed possible causes and things that she could try. I am not sure why she is having this. Nodiarrhea. She will see PCP on Sunday. I told her to have him check her BMP then. I ordered some Zofran to her local pharmacy. We could try Ativan next. She will call back if needed. DEMETRIS HALL MD Heme/onc fellow documented in this encounter Plan of Treatment Not on file documented as of this encounter Visit Diagnoses Not on filedocumented in this encounter Care Teams Senior Accounting Clerk Relationship Specialty Start Date End Date Ofelia Costello APRN [address] [address] PCP - General 12/13/12 01/12/13 documented as of this encounter
--- OUTSIDE RECORDS SUMMARY | 2023-12-26 11:50 | XMS_ITS | Encounter Summary ---
Author Organization [facility] Address [facility] [place] [address] Care Team Providers Care Burnisher Name Role Phone Ofelia Costello APRN Primary Care Provider [phone] Encounter Details Date Type Department Care Team (Late st Contact Info) Description 12/30/2012 Orders Only Hematology [place] [address] Haris Jarvis MD [facility] DR HEMATOLOGY/[place] [address] Social History Tobacco Use Types Packs/Day Years [...] Procedure Name Priority Date/Time Associated Diagnosis Comments FILM LIBRARY STORAGE ONLY DX CHEST Routine 12/30/2012 7:42 PM EDT documented in this encounter Results * Film Library- Storage only DX Chest (12/30/2012 7:42 PM EDT) 12/30/2012 7:42 PM EDT Narrative RAD - 02/03/2014 11:46 PM EDT This is a non-reportable exam. Procedure Note Cody Jordan - 02/03/2014 This is a non-reportable exam. Haris Jarvis MD IM FILM LIBRARY ORD ERABLES [facility] [address] [place] [address] documented in this encounter Visit Diagnoses Not on filedocumented in this encounter Care Teams Burnisher Relationship Specialty Start Date End Date Ofelia Costello APRN [facility] [address] [place] [address] PCP - General 12/13/12 01/12/13 documented as of this encounter
--- OUTSIDE RECORDS SUMMARY | 2023-12-26 11:50 | XMS_ITS | Encounter Summary ---
Author Organization [facility] Address [facility] [place] [address] Care Team Providers Care Housekeeper/Custodian/Laundry Worker Name Role Phone Ofelia Costello APRN Primary Care Provider [phone] Encounter Details Date Type Department Care Team (Late st Contact Info) Description 12/30/2012 Orders Only Hematology [place] [address] Haris Jarvis MD [facility] DR HEMATOLOGY/[place] [address] Social History Tobacco Use Types Packs/Day Years [...] Associated Diagnosis Comments FILM LIBRARY STORAGE ONLY CT CHEST Routine 12/30/2012 7:44 PM EDT documented in this encounter Results * Film Library- Storage only CT Chest (12/30/2012 7:44 PM EDT) 12/30/2012 7:44 PM EDT Narrative RAD - 02/03/2014 11:46 PM EDT This is a non-reportable exam. Procedure Note Cody Jordan - 02/03/2014 This is a non-reportable exam. Haris Jarvis MD IM FILM LIBRARY ORD ERABLES [facility] [id number] [place] [address] documented in this encounter Visit Diagnoses Not on filedocumented in this encounter Care Teams Housekeeper/Custodian/Laundry Worker Relationship Specialty Start Date End Date Ofelia Costello APRN [facility] [address] [place] [id number] PCP - General 12/13/12 01/12/13 documented as of this encounter
--- OUTSIDE RECORDS SUMMARY | 2023-12-26 11:50 | XMS_ITS | Encounter Summary ---
Author Organization [facility] Address [facility] [place] [address] Care Team Providers Care Radioisotope Technologist Name Role Phone Bakari Costello APRN Primary Care Provider [phone] Reason for Referral * Consultation (Routine) - Complete-Ref Provider Notified Specialty Diagnoses / Procedures Referred By Contjodi t Referred To Contact Diagnoses MRSA bacteremia Abraham Mesa MD [facility] [place] [address] [facility] [place] Infectious Dis [address] [place] [id number] Referral ID Status Reason Start Date Expiration Date Visits Requested Visits Authorized [id number] Complete-Ref Provider Notified Assume Subset of Care 01/05/2013 07/04/2013 1 1 Encounter Details Date Type Department Care Team (Latest Contact Info) Description 12/30/2012 12:13 PM EDT - 01/05/2013 12:14 PM EDT Hospital Encounter Hematology [place] [address] Haris Jarvis MD [facility] HEMATOLOGY/[place] [address] Dipak Verma MD [facility] HEMATOLOGY/[place] [address] CHF (congestive heart failure) (Primary Dx); HUS (hemolytic uremic syndrome); TTP (thrombotic thrombocytopenic purpura); MRSA bacteremia Discharge Disposition: Home with [facility] Social History Tobacco Use Types Packs/Day Years [...] Sign Reading Time Taken Comments Blood Pressure 112/55 01/05/2013 7:51 AM EDT Pulse 69 01/05/2013 7:51 AM EDT Temperature 36.4 ??C (97.5 ??F) 01/05/2013 7:51 AM ED T Respiratory Rate 20 01/05/2013 7:51 AM EDT Oxygen Saturation 97% 01/05/2013 7:51 AM EDT Inhaled Oxygen Concentration - - Weight 56.6 kg (124 lb 12.5 oz) 01/05/2013 6:22 AM EDT Height 170 cm (5' 6.93) 12/30/2012 12: 25 PM EDT Body Mass Index 19.58 12/30/2012 12:25 PM EDT documented in this encounter Discharge Instructions * Discharge Instructions* Flynn Ruiz MD - 01/05/2013 10:29 AM EDT Anticoagulation (???Blood Thinner?? ) Management upon Discharge: Reason for anticoagulation therapy: DVT's in setting of HUS-TTP Your NEW Warfarin (Coumadin??) dosing instruction upon discharge is: Take same dosing 10mg each night until told otherwise Follow up INR is scheduled on: Sunday/ by [facility] LAST FEW INR's/dosin/24 01/02 01/03 01/04 01/05 INR 1.8 1.8 1.8 1.6 1.9 warf 5 5 7.5 10 - INR Goal: 2-3 Expected duration of treatment: TBD by Dr Fontana Provider/Team responsible for ongoing outpatient anticoagulation management: PCP If you have not received a call from your provider within 24hrs of having your INR drawn, please call your outpatient provider for further dose instructions. Warfarin (Coumadin??) should be taken at the same time every day, preferably after 5pm. If taking Enoxaparin (Lovenox??) injections, continue taking until instructed to stop. (You will betaking this medication until your INR is in the therapeutic range for 24 hours.) The following table shows your most recent INR results and Warfarin (Coumadin??) Doses Please review your Warfarin (Coumadin??) Pack upon discharge. For your safety, it is very important to be aware of the following details related to taking ???blood thinning?? medications such as Coumadin. Compliance: Take your medication exactly as directed. Missing a dose or taking more than you are scheduled to take could result in clotting or bleeding issues. Signs and Symptoms to be reported include: increased pain, swelling or sudden shortness of breath severe headaches dizziness unusual bleeding or bruising changes in urine or bowel movement color coughing or spitting up of blood, or nosebleeds In the event that you should experience any of the above, seek medical attention. CARDIOLOGY CONSULT NOTE A/P 52 y/o F with recent admit to [facility] for TTP-HUS c/b MRSA bacteremia presents with fluid overload, and an echo yesterday demonstrating EF of 40 with global hypokinesis. The severity of this heart failure on presentation was NYHA III, AHA/ACC stage C. With excellent diuresis done by the primary team, her weight is coming back to baseline, and functionally she is now NYHA II. Given her mild JVD and functional decrease, there is still room to diurese, as she is perfusing well (wet/warm). In regards to the etiology of the heart failure, it seems to correlate chronologically well with her onset of TTP-HUS. Not only can this disease lead to microthombi in the periphery, it can also cause microthrombi in the coronary circulation diffusely, without causing ischemia or symptomatology thereof. This cause of heart failure is usually reversible, and should be followed as an outpatient. The EKG this morning did indeed show new TWI in lateral leads, as well as QTc prolongation as compared to previous. Regarding the TWI, this was not accompanied by any chest pain or anginal equivalent. At this time, it is hypothesized to be from a somewhat uneven distribution of the aforementioned di sseminated microthrombi in the LCx territory. It is not necessary to act upon this new finding at this time, but should be kept in mind moving forward as the heart failure is managed. Interestingly, the QTc prolongation may be a transient representation of a Takotsubo-type cardiomyopathy, reported 2/2 the disseminated microthrombi itself. This usually resolves on its own in 24-48 hours. The positive troponins likely represent a troponin leak from the fluid overload itself. This hypothesis is backed by a) steady troponin levels and b) negative CK. Recommendations: # Acute Systolic Heart Failure, last EF of 40% - Light diuresis, as patient is approaching baseline weight. Can give a couple more doses of Lasix IV depending on fluid status, then switch to Lasix po prior to discharge once fluid status normalizes. Follow up BMP in a week. - Aspirin - Beta- kirstie (already on board) - ANTONIO inhibitor. Because amlodipine and ACEi's have a similar mechanism of hypertension control, itis suggested that amlodipine be switched to an ACEi for both the HF as well as afterload reduction benefits. In view of the creatinine, I would begin with very low dose, perhaps lisinopril 2.5mg, andmonitor K+ and Cr. - The patient's lipid profile was well within normal limits. Because this presentation does not likely represent ACS, the patient does not require a statin at this time - Follow up with cardiology in 2 weeks after discharge. - Follow-up echo in a month. If the EF is not improved or a regional WMA presents itself at that time, I would consider a nuclear stress test. #Troponinemia - I would stop trending the cardiac enzymes, unless the patient complains of chest pain or some other anginal equivalent. == TTE 12/31/12 SUMMARY: 1. The left ventricular chamber size is normal. Left ventricular wall thickness is normal. There isdiffuse hypokinesis present with some variation in segmental function. Global left ventricular systolic function is moderately reduced. Ejection fraction is estimated to be 40%. 2. Right ventricular chamber size, wall thickness, and systolic function are within normal limits. 3. There is no hemodynamically significant valve disease. 4. The estimated pulmonary artery systolic pressure is 52 mmHg. There is evidence that pulmonary hypertension may be underestimated. 5. See remainder of report for additional findings. FINDINGS: Left Ventricle: The left ventricular chamber size is normal. Left ventricular wall thickness is normal. Global left ventricular systolic function is moderately reduced. Ejection fraction is estimatedto be 40%. There is diffuse hypokinesis present. The basal anteroseptal, basal anterior, basal anter olateral, basal inferolateral, basal inferior, basal inferoseptal, mid anteroseptal, mid anterior, mid anterolateral, mid inferolateral, mid inferior, mid inferoseptal, apical septal, apical anterior, apical lateral and apical inferior wall segments are hypokinetic. Left Atrium:The left atrium is normal in size. Right Ventricle: Right ventricular chamber size, wall thickness, and systolic function are within normal limits. There is evidence that pulmonary hypertension may be underestimated. The estimated pulmonary artery systolic pressure is 52 mmHg. The estimated right atrial pressure is 8 mmHg. Right Atrium: The right atrium is normal in size. Aortic Valve: The aortic valve is trileaflet. The leaflets are thin with normal excursion. There isno aortic stenosis or regurgitation present. Mitral Valve: The mitral valve appears normal in structure and function. There is evidence of ruptured chordae. There is mild (1+/4+) mitral regurgitation present. Tricuspid Valve: The tricuspid valve appears normal in structure and function. There is mild (1+/4+) tricuspid regurgitation present. Pulmonic Valve: The pulmonic valve is not well visualized. There is trace pulmonic regurgitation present. Pericardium :A trivial pericardial effusion is visualized. Bilateral pleural effusions are present. Aorta: The aortic root is normal in size. The ascending aorta is normal in size. Pulmonary Artery: The main pulmonary artery appears normal. Venous: The inferior vena cava appears dilated. There is a greater than 50% respiratory change in the inferior vena cava dimension. Misc:Two-dimensional echo, spectral Doppler and color Doppler performed. * Patient Instructions* Flynn Ruiz MD - 01/03/2013 1:27 PM EDT Instruction after leaving the hospital Why you were hospitalized: hypoxia (low oxygen levels), heart failure (volume overload)- felt due to TTP Call your doctor or seek medical attention if you develop the following (or have any new/worsening symptoms) specifically: -progressive belly pain, nausea/vomiting, inability to hold down liquids -increasing leg swelling -weight gain: > 1kg (2 lb) from baseline -worsening breathing problems -reduced urine output -confusion or other neurologic changes Activity level: As tolerated Diet: 2g sodium & 1.5 L fluids per day Driving: Not right now Shower/Bath: Keep PICC line dry per prior instructions Home Oxygen therapy: NEWLY PROVIDED by [facility] (as needed, 2L at rest, up to 5L with activity) Specific instructions related to your condition: #Weighing yourself - yourself every day (record #'s), at the same time of day, wearing the same clothes (or lack of clothes) -compare weights to your discharge DRY Weight- 58.3 by our scales (use your first weight at home as baseline) -if you gain >1kg (2 lb) in a day, please call your PCP -if your absolute weight is up by 3kg (6 lb) at any point, call your doctor # Continue warfarin, now at 10mg/day; take enoxaparin until told by PCP to stop #Take new meds lisinopril, aspirin, Toprol as directed; take zofran before each meal # Follow-up per below appt's 01/[address] [facility] Heme/Onc (Heather) 01/10 11am PCP's office (Giovanni) they may change this 01/10 3:330 [facility] (Di) 01/13 3:30pm [facility] Nephrology (Block) 8/ 10am [facility] Endo (Gardenia Kebede) Your Inpatient Doctors at [facility]: Attendings: Luci Soto Residents: Dr. Ruiz, Dr. Bañuelos documented in this encounter Medications at Time [...] 12 01/03/2013 CALCIUM ORAL 12/03/2009 ondansetron (ZOFRAN) 4 mg tablet Take 1 tablet by mouth 3 times daily (before meals). 90 tablet 3 01/05/2013 01/08/2013 warfarin (COUMADIN) 5 mg tablet Take 2 tablets by mouth daily. 60 tablet 0 01/05/2013 04/15/2014 ondansetron (ZOFRAN) 8 mg tablet Take 1 tablet by mouth 3 times daily (before meals). Try 1/2 tablet first. If ineffective, use whole tablet 90 tablet 3 01/05/2013 01/22/2013 DAPTOmycin (CUBICIN) 500 mg injection Inject 6.8 mLs into the vein every 48 hours as needed (MRSA line infection) for 9 days. 1 each 01/05/2013 01/13/2013 alum-mag hydroxide-simeth (MAALOX) 200-200-20 mg/5 mL suspension Take 10 mLs by mouth 3 times daily as needed. 355 mL 01/03/2013 05/22/2013 calcium carbonate (TUMS) 200 mg calcium (500 mg) chewable tablet Take 1-2 tablets by mouth every 4 hours as needed for Heartburn. 01/03/2013 01/13/2013 famotidine (PEPCID) 20 mg tablet Take 1 tablet by mouth 2 times daily as needed (GI upset, pain). 30 tablet 01/03/2013 01/13/2013 lisinopril (PRINIVIL;ZESTRIL) 2.5 mg tablet Take 1 tablet by mouth daily. 30 tablet 12 01/03/2013 01/13/2013 LORazepam (ATIVAN) 0.5 mg tablet Take 1 tablet by mouth every 6 hours as needed. 30 tablet 0 01/03/2013 05/22/2013 promethazine (PHENERGAN) [address] 0.5 suppositories rectally every 6 hours as needed for Nausea. Ok to use 1 whole suppository if 1/2 does not work. 5 suppository 0 12/28/2012 01/22/2013 ondansetron (ZOFRAN-ODT) 4 mg oral disintegrating tablet Take 1 tablet by mouth every 8 hours as needed for Nausea. 5 tablet 0 12/28/2012 01/08/2013 omeprazole (PRILOSEC) 40 mg capsule Take 1 capsule by mouth daily. 30 capsule 11 12/27/2012 12/27/2013 enoxaparin (LOVENOX) 80 mg/0.8 mL injection Inject 0.8 mLs subcutaneously daily for 12 days. 9.6 mL 0 12/27/2012 01/08/2013 Glucosamine-Chondroi t-Vit C-Mn 500-400 mg Cap 12/03/2009 01/13/2013 documented as of this encounter Progress Notes * Dipak Verma MD - 01/05/2013 5:37 PM EDT TREATMENT DAY: D/c day DISCHARGE DIAGNOSES: Heart failure SECONDARY DIAGNOSES: DVT/?PE Hypoxemia TTP-HUS Anum Henriquez has been seen and examined and all relevant data have been reviewed. she has completed the planned treatment course and is stable for discharge with subsequent outpatient follow-up. Accordingly, we will discharge her today and have given her home care instructions and a follow-upplan. Please see the discharge summary for complete details of her hospitalization, follow-up plan and for a list of discharge medications. Anum Henriquez is being discharged in improved condition. 35 minutes were devoted to patient care, counseling and discharge day planning. * Sera Lucas RN - 01/05/2013 12:13 PM EDT 12:00 Reviewed discharge instructions and medications with Pt and spouse. MD Ruiz in to reconfirm discharge instructions r/t ABX home therapy supply. Pt brought to entrance via WC by this RN. * Dipak Verma MD - 01/04/2013 4:02 PM EDT Inpatient Hematology/Oncology/SCT Progress Note Patient info: Name: Anum Henriquez : 1960 PCP: BAKARI COSTELLO APRN PCP phone number: [phone] Date of Admission: 12/30/2012 ( Hospital Day 5 days ) Service: Hem/Onc Team A - Pager [phone] Responsible Attending:Dipak Verma MD ID: 52 y.o. female with a hx of Graves' disease, recently discharged (12/27) from [facility] following treatment with plasma exchange for TTP-HUS a/w 4 days bloody diarrhea and admitted for SOB and edema. Acute systolic HF. Hospital Problem List: Patient Active Problem List Diagnoses Code ??? Hemorrhagic colitis 558.9 ??? Thrombocytopenia 287.5 ??? Hyperthyroidism 242.90 ??? 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 HUS (hemolytic uremic syndrome) 283.11 ??? TACO (transfusion associated circulatory overload) 276.61 ??? MRSA bacteremia 790.7 Resolved Problems: 24 Hour Events/ Subjective: - Cr down 2.36 (<-2.54) - Vanco trough down to 20.4 - still desats on walking - epigastric tenderness present but better today - Per ID reccs: switched to Daptomycin this morning and tolerating it well (no rash or change in respiratory sx) - Baseline CPK=45 - Contacted CRC re going home on Dapto now vs Vanco Antimicrobials: Daptomycin d1=01/04/13 Vanco last day 01/04/13 Chemotherapy/Transplant Meds: None Chemo day # Pain meds: Tylenol Lines: Other Meds: Scheduled Meds: ??? daptomycin 6 mg/kg/dose Intravenous Q24H ??? warfarin 10 mg Oral Once ??? metoprolol succinate 100 mg Oral Daily ??? warfarin 7.5 mg Oral Once ??? lisinopril 2.5 mg Oral Daily ??? aspirin 81 mg Oral Daily ??? enoxaparin 80 mg Subcutaneous Daily ??? sodium chloride 0.9 % 5 mL Intravenous Q12H ??? warfarin (COUMADIN) daily order reminder Oral Q24H ??? esomeprazole 40 mg Oral Daily Continuous Infusions: PRN Meds:.calcium carbonate, alum-mag hydroxide-simeth, famotidine, labetalol, LORazepam, ondansetron, promethazine, acetaminophen Vitals: Last value Range last 24 hrs Temperature Temp: 36.9 ??C (98.4 ??F) Temp: [36.5 ??C (97.7 ??F)-36.9 ??C (98.4 ??F)] Heart Rate Heart Rate: 73 Heart Rate: [66-81] Blood Pressure BP: 120/81 mmHg BP: (100-129)/(67-90) Respiratory Rate Resp: 20 Resp: [18-20] SpO2 SpO2: 98 % SpO2: [98 %-99 %] Intake/Output Summary (Last 24 hours) at 01/04/13 1602 Last data filed at 01/04/13 1329 Gross per 24 hour Intake 1716 ml Output 3600 ml Net -1884 ml Patient Vitals for the past 168 hrs: Weight 01/04/13 0620 56.7 kg (125 lb) 01/03/13 0515 58.3 kg (128 lb 8.5 oz) 01/02/13 0631 59.6 kg (131 lb 6.3 oz) 01/01/13 0658 61.1 kg (134 lb 11.2 oz) 12/31/12 0413 64.1 kg (141 lb 5 oz) 12/30/12 1225 66.2 kg (145 lb 15.1 oz) Admit wt:66.20 kg Change in weight to today: Physical Exam: Gen: AAOX3, sitting up in chair, comfortable . HEENT: Anicteric sclera, OP clear with mmm Neck: Supple with normal ROM CV: NRRR without murmur, rub, click or luz Resp: breath sounds at right Nl respiratory effort. No crackles or wheezes Abd: Soft, +epigastric tenderness to palpation, ND, NABS, No HSM appreciated EXT: WWP, no edema, 2+equal dpp bl Skin: No rashes, sores or ulcers Neuro: Nonfocal, Moving all 4 extremities equally Labs: Recent Labs Basename 01/04/1313401/03/1352501/02/13 0515 WBC 5.5 4.9 4.5 HGB 9.5* 8.9* 9.0* HCT 28.9* 27.6* 27.8* PLATELET 238 230 226 NEUTROABS 3.58 3.25 2.69 Recent Labs Basenam 01/04/1313401/03/13 0526 01/02/13 0515 NA 134* 139 139 K 4.2 4.0 4.0 CL 96* 101 102 CO2 28 27 27 BUN 17 13 10 CREATININE 2.36* 2.54* 2.18* GLUCOSE -- -- -- Recent Labs [facility] 01/04/1313401/03/1352501/02/13 0515 CALCIUM 9.2 9.2 9.2 MAGNESIUM -- -- -- PHOS -- -- -- [facility] 01/02/13 1150 AST 17 ALT 15 ALKPHOS 52 BILITOT 0.2 BILIDIR 0.1 Recent Labs [facility] 01/04/1313401/03/13 0526 01/02/13 0515 INR 1.6* 1.8* 1.8* PT 20.0* 21.2* 21.1* PTT 34 -- -- Recent Labs [facility] 01/04/1313401/03/1352501/02/13 0515 LDH 220 208 229* URICACID -- -- -- Lipase: 192 Troponin: 0.06 / 0.06 BNP 16.4K CK 45 Microbiology: Blood Culture: None Urine Culture: None Pertinent radiology/diagnostic studies: 12/31/12: TTE SUMMARY: 1. The left ventricular chamber size is normal. Left ventricular wall thickness is normal. There isdiffuse hypokinesis present with some variation in segmental function. Global left ventricular systolic function is moderately reduced. Ejection fraction is estimated to be 40%. 2. Right ventricular chamber size, wall thickness, and systolic function are within normal limits. 3. There is no hemodynamically significant valve disease. 4. The estimated pulmonary artery systolic pressure is 52 mmHg. There is evidence that pulmonary hypertension may be underestimated. 12/30/12 CXR PA & Lateral: Findings : The previously seen right IJ catheter and PICC catheter have been removed and there is anew left-sided PICC catheter terminating in the SVC. There is no other interval change, allowing for the more upright positioning. Again seen are bilateral pleural effusions and bibasilar opacities most likely due to a combination of atelectasis and mild pulmonary edema. The mid and upper lung zones remain clear. Impression: No significant interval change. Persistent pleural effusions and bibasilar atelectasis and pulmonary edema. Interval changes of central lines. 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 Presented with worsening SOB, orthopnea, and LE edema. Diuresed well with good improvement in sx and stablekidney function. On daily po diuretic (held as dry wt achieved and Cr increased). Acute systolic CHF thought to be 2/2 diffuse microthrombi to coronary vessels s/p TTP/HUS. Will medically manage and started appropriate medications for CHF. Follow up w/ Cardiology and TTE in 1 month. DRY WEIGHT=58.3kg Continues to be hypoxic on exertion and uses 2L overnight. Multifactorial etiology likely - acute systolic CHF, pleural effusions, microthrombi in lungs 2/2 TTP. Home O2 arranged. Epigastric abdominal pain improving daily. Likely a/w pleural effusions and mild irritation of pancreas as lipase is elevated. Given variable kidney function and rising vanco trough, switched to daptomycin abx for completion of Abx s/p MRSA bacteremia during her last hospitalization (baeline CK=45). If eGFR remains <30, she may need to dose freq adjustment to q48hr. CRC made aware of new Abx home requirements. Keeping another day to monitor after these changes. Likely d/c home tomorrow. PLAN: # Acute Systolic CHF: - Hold lasix if Cr rising - cont Metoprolol, Lisinopril, ASA - monitor electrolytes and Cr - monitor I/Os - daily weights - low salt diet and fluid restrict to 1.5L/d #Hypoxia: - Reqs O2 when ambulating # Abdominal Pain: Continues to improve - LFTs normal - Lipase elevated #HTN: - Metoprolol to 25mg q6h - Labetalol prn - Lisinopril 2.5mg qd # s/p MRSA Bacteremia - Stopped vancomycin per ID reccs (appreciate the consult) - Vanco level 20.4 on 01/04 (>25 toxic) - start Daptomycin 6mg/kg IV until 01/14 x3 weeks total since line removal (12/24 - 01/14) - * May need to go to q48hr daptomycin dosing if eGFR remains <30 * - f/up Pharmacy. - Got baseline CPK=45 # s/p Bilateral DVT - Cont bridging lovenox SubCut 80mg qd until INR therapeutic - Increased Warfarin to 10mg today as INR plateaued - Goal INR 2-3 #FEN: - monitor lytes and replete prn - Cardiac, low salt diet with fluid intake limited to 1.5L qd PPx: DVT- Lovenox/Warfain GI- Osemeprazole CODE STATUS: Full Code Dispo- Home pending resolution of sx PEGGY BAÑUELOS MD 01/04/2013 Team Pager #[phone] I have personally seen and examined the patient. I have reviewed all pertinent laboratory and radiographic findings. I agree with the assessment and plan as outlined by Dr Bañuelos and have the following additional comments. 52 yo woman with TTP-HUS who presented with shortness of breath. The latter is likely multifactorial, due to TTP-HUS and microthrombi leading to heart failure and possible PE. - she continues to desaturate on mild physical exertion. - she is probably eu- vs. hypovolemic now. We will hold off on diuresis and monitor creatinine levels for an additional day - Abx changed to daptomycin - appreciate ID input - small microthrombi in the lungs may be contributing to her shortness of breath * Tyson Patel MD - 01/04/2013 12:03 PM EDT ID f/u green team note 52 yo female with recent admission for TTP/HUS complicated by MRSA bacteremia likely from a line infection. Blood cultures negative since 12/21 and all lines removed since 12/24. Patient was re-admitted for SOB and cardiomyopathy felt to be secondary to complications from her recent TTP/HUS. We are following her on OP AT and her creatinine is slowly rising and her vancomycin trough is 22.3 today. Because of ongoing rising creatinine, we suggest using Daptomycin instead to complete treatment. Pthas remained afebrile with normal WBC for the last several days Recommendations: Dc Vancomycin Daptomycin 6mg/kg IV until 01/14 x3 weeks total since line removal (12/24 - 01/14) ID and OPAT will follow Check baseline CPK Weekly cbc, cmp, cpk Discussed with ID attending Dr Amanda Clarke MD ID fellow ATTENDING ADDENDUM: I have seen and examined the patient, reviewed the data and agree with the note by Dr. Clarke. Unfortunately we cannot get a stable creatinine and dose of vancomycin for outpt use. So we can switch to daptomycin. Discussed with team. * Dipak Verma MD - 01/03/2013 3:34 PM EDT Inpatient Hematology/Oncology/SCT Progress Note Patient info: Name: Anum Henriquez : 1960 PCP: BAKARI COSTELLO APRN PCP phone number: [phone] Date of Admission: 12/30/2012 ( Hospital Day 4 days ) Service: Hem/Onc Team A - Pager [phone] Responsible Attending:Dipak Verma MD ID: 52 y.o. female with a hx of Graves' disease, recently discharged (12/27) from [facility] [place] treatment with plasma exchange for TTP-HUS a/w 4 days bloody diarrhea and admitted for SOB and edema. Hospital Problem List: Patient Active Problem List Diagnoses Code ??? Hemorrhagic colitis 558.9 ??? Thrombocytopenia 287.5 ??? Hyperthyroidism 242.90 ??? 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 HUS (hemolytic uremic syndrome) 283.11 ??? TACO (transfusion associated circulatory overload) 276.61 ??? MRSA bacteremia 790.7 Resolved Problems: 24 Hour Events/ Subjective: - po Lasix x2 yesterday. Net out -2.3L Cr bumped 2.54 (<-2.18) - Maalox helpful for epigastric pain - epigastric pain improved today - LFTs normal, Lipase elevated (192) - home O2 reqs done Antimicrobials: Vanco Chemotherapy/Transplant Meds: None Chemo day # Pain meds: Tylenol Lines: Other Meds: Scheduled Meds: ??? Vancomycin Level - MAR Order Reminder NOT APPLICABLE Once ??? furosemide 40 mg Oral Once ??? warfarin 5 mg Oral Once ??? furosemide 40 mg Oral Daily ??? metoprolol 25 mg Oral Q6H KATIE ??? lisinopril 2.5 mg Oral Daily ??? aspirin 81 mg Oral Daily ??? enoxaparin 80 mg Subcutaneous Daily ??? sodium chloride 0.9 % 5 mL Intravenous Q12H ??? warfarin (COUMADIN) daily order reminder Oral Q24H ??? vancomycin 750 mg Intravenous Q24H ??? esomeprazole 40 mg Oral Daily Continuous Infusions: PRN Meds:.calcium carbonate, alum-mag hydroxide-simeth, famotidine, labetalol, LORazepam, ondansetron, promethazine, acetaminophen Vitals: Last value Range last 24 hrs Temperature Temp: 36.8 ??C (98.2 ??F) Temp: [36.6 ??C (97.9 ??F)-36.8 ??C (98.2 ??F)] Heart Rate Heart Rate: 81 Heart Rate: [72-83] Blood Pressure BP: 113/72 mmHg BP: (111-141)/(69-97) Respiratory Rate Resp: 20 Resp: [18-20] SpO2 SpO2: 95 % SpO2: [87 %-98 %] Intake/Output Summary (Last 24 hours) at 01/03/13 0675 Last data filed at 01/03/13 0531 Gross per 24 hour Intake 1359 ml Output 3700 ml Net -2341 ml Patient Vitals for the past 168 hrs: Weight 01/03/13 0515 58.3 kg (128 lb 8.5 oz) 01/02/13 0631 59.6 kg (131 lb 6.3 oz) 01/01/13 0658 61.1 kg (134 lb 11.2 oz) 12/31/12 0413 64.1 kg (141 lb 5 oz) 12/30/12 1225 66.2 kg (145 lb 15.1 oz) Admit wt:66.20 kg Change in weight to today: Physical Exam: Gen: AAOX3, pleasant, lying in bed. HEENT: Anicteric sclera, OP clear with mmm Neck: Supple with normal ROM, No cervical LAD appreciated, CV: NRRR without murmur, rub, click or luz Resp: breath sounds at bases. Nl respiratory effort Abd: Soft, +epigastric tenderness to palpation, ND, NABS, No HSM appreciated EXT: WWP, no edema, 2+equal dpp bl Skin: No rashes, sores or ulcers Neuro: Nonfocal, Moving all 4 extremities equally Labs: Recent Labs Basename 01/03/13 0501/02/13 0515 01/01/13 0425 WBC 4.9 4.5 5.0 HGB 8.9* 9.0* 8.8* HCT 27.6* 27.8* 26.3* PLATELET 230 226 247 NEUTROABS 3.25 2.69 3.42 Recent Labs Basename 01/03/1352501/02/13 0515 01/01/13 0425 NA 139 139 138 K 4.0 4.0 3.4* CL 101 102 100 CO2 27 27 27 BUN 13 10 11 CREATININE 2.54* 2.18* 2.06* GLUCOSE -- -- -- Recent Labs Basename 01/03/13 0526 01/02/13 0515 01/01/13 0425 CALCIUM 9.2 9.2 9.1 MAGNESIUM -- -- -- PHOS -- -- -- Recent Labs Basename 01/02/13 1150 AST 17 ALT 15 ALKPHOS 52 BILITOT 0.2 BILIDIR 0.1 Recent Labs Basename 01/03/13 0526 01/02/13 0515 01/01/13 0425 INR 1.8* 1.8* 1.8* PT 21.2* 21.1* 21.4* PTT -- -- -- Recent Labs Basename 01/03/13 0526 01/02/13 0515 01/01/13 0425 LDH 208 229* 235* URICACID -- -- -- Lipase: 192 Troponin: 0.06 / 0.06 BNP 16.4K Microbiology: Blood Culture: None Urine Culture: None Pertinent radiology/diagnostic studies: 12/31/12: TTE SUMMARY: 1. The left ventricular chamber size is normal. Left ventricular wall thickness is normal. There isdiffuse hypokinesis present with some variation in segmental function. Global left ventricular systolic function is moderately reduced. Ejection fraction is estimated to be 40%. 2. Right ventricular chamber size, wall thickness, and systolic function are within normal limits. 3. There is no hemodynamically significant valve disease. 4. The estimated pulmonary artery systolic pressure is 52 mmHg. There is evidence that pulmonary hypertension may be underestimated. 12/30/12 CXR PA & Lateral: Findings : The previously seen right IJ catheter and PICC catheter have been removed and there is anew left-sided PICC catheter terminating in the SVC. There is no other interval change, allowing for the more upright positioning. Again seen are bilateral pleural effusions and bibasilar opacities most likely due to a combination of atelectasis and mild pulmonary edema. The mid and upper lungzonesremain clear. Impression: No significant interval change. Persistent pleural effusions and bibasilar atelectasis and pulmonary edema. Interval changes of central lines. 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 Presented with worsening SOB, orthopnea, and LE edema. Diuresed well with good improvement in sx and stablekidney function. On daily po diuretic. Acute systolic CHF thought to be 2/2 diffuse microthrombi to coronary vessels s/p TTP/HUS. Will medically manage and started appropriate medications for CHF. Follow up w/ Cardiology and TTE in 1 month. Still hypoxic on exertion and uses 2-3L overnight. VQ scan yesterday c/b pleural effusions so unreliable result. Multifactorial etiology likely - acute systolic CHF, pleural effusions, microthrombi in lungs 2/2 TTP. Likely need home O2. Reports abdominal pain today that was present before admissionand may be a/w pleural effusions or may be mild irritation of pancreas as lipase is elevated - improved today. Stable and likely d/c today with outpt follow-up PLAN: # Acute Systolic CHF: - Cr bumped indicating at dry weight. Will hold for tomorrow. - started meds for CHF: Metoprolol, Lisinopril, ASA - monitor electrolytes and Cr - monitor I/Os - daily weights - low salt diet and fluid restrict to 1.5L/d #Hypoxia: - Reqs O2 when ambulating # Abdominal Pain: Improved today - LFTs normal - Lipase elevated #HTN: - Metoprolol to 25mg q6h - Labetalol prn - Lisinopril 2.5mg qd # s/p MRSA Bacteremia - continue vancomycin 750mg IV q24h through 01/14/13 - Vanco level 22.5 on 01/02 (>25 toxic) # s/p Bilateral DVT - Cont bridging lovenox SubCut 80mg qd until INR therapeutic - Increase Warfarin to 7.5mg qd as INR plateaued - Goal INR 2-3 #FEN: - monitor lytes and replete prn - Cardaic, low salt diet with fluid intake limited to 1.5L qd PPx: DVT- Lovenox/Warfain GI- Osemeprazole CODE STATUS: Full Code Dispo- Likely home pending resolution of sx PEGGY BAÑUELOS MD 01/03/2013 Team Pager #[phone] I have personally seen and examined the patient. I have reviewed all pertinent laboratory and radiographic findings. I agree with the assessment and plan as outlined by Dr Bañuelos and have the following additional comments. 52 yo woman with TTP-HUS who presented with shortness of breath. The latter is likely multifactorial, due to TTP-HUS and microthrombi leading to heart failure and possible PE. - she feels better today with less shortness of breath. However she continues to desaturate on mildphysical exertion. - given the elevation in creatinine she is probably eu- vs. hypovolemic now. We will hold off on diuresis and monitor creatinine levels for an additional day - will dose vancomycin based on tomorrow's creatinine level and random vancomycin level - small microthrombi in the lungs may be contributing to her shortness of breath - epigastric pain improved * Tyson Patel MD - 01/03/2013 3:00 PM EDT INFECTIOUS DISEASE CONSULT NOTE Name: Anum Henriquez : 1960 Sex: female Active ID Problem List: MRSA bacteremia Pertinent Medications: Vancomycin Problem List/Past Medical History Patient Active Problem List Diagnoses ??? 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 Developed thrombocytopenia, DELVIS, microangiopathic hemolytic anemia acutely. Treatment: plasma exchange started 12/14/12. ADAMTS-13 activity normal. ??? HUS (hemolytic uremic syndrome) ??? TACO (transfusion associated circulatory overload) ??? MRSA bacteremia ??? Hemorrhagic colitis CT shows sparing of the sigmoid and rectum ??? Thrombocytopenia ??? Hyperthyroidism Graves disease stable on methimazole for 10+ years. Allergies: Allergies Allergen Reactions ??? Erythromycin Base Family History: Family Hx not pertinent to this issue. . Social History: History Substance Use Topics ??? Smoking status: Former Smoker Quit date: 06/15/1978 ??? Smokeless tobacco: Never Used ??? Alcohol Use: Yes socially Subjective: Admitted for SOB and LE edema. Found to have cardiomyopathy felt secondary to her recent episode ofTTP/HUS and microthrombi. Still SOB and needing oxygen despite diuresis. LE edema has mostly resolved. + nausea, + mild abd cramping still. Diarrhea has resolved. Cognition back to normal. Denies F/C. Physical Exam: Temp: [36.6 ??C (97.9 ??F)-36.9 ??C (98.4 ??F)] Heart Rate: [72-83] Resp: [18-20] BP: (111-137)/(69-87) SpO2: [95 %-98 %] Gen: NAD, improved cognition Resp: Crackles bilat bases CV: RRR, S1/S2, no m/r/g Abd: Soft, ND, NABS, + mild upper abd tenderness Ext: very trace LE edema Skin: No rash Neuro: A&Ox3 Laboratory in Last 24 Hours: CBC Lab Results Component Value Date WBC 4.9 01/03/2013 Hemoglobin 8.9* 01/03/2013 Hematocrit 27.6* 01/03/2013 Platelets 230 01/03/2013 Lab Results Component Value Date Sodium 139 01/03/2013 Potassium 4.0 01/03/2013 Chloride 101 01/03/2013 CO2 27 01/03/2013 BUN 13 01/03/2013 Creatinine 2.54* 01/03/2013 LFT's No results found for this basename: alkphos, ast, albumin, bilidir, bilitot, alt, prot Microbiology: None new Assessment: 52 yo female with recent admission for TTP/HUS complicated by MRSA bacteremia likely from a line infection. Blood cultures negative since 12/21 and all lines removed since 12/24. Patient was re-admitted for SOB and cardiomyopathy felt to be secondary to complications from her recent TTP/HUS. We are following her on OPAT and her creatinine is slowly rising and her vancomycin trough is 22.3 today. Rising creatinine is possibly from diuresis, but it could also be due to vancomycin. We would recommend holding patient's vancomycin today, and rechecking vancomycin trough and kidney function tomorrow.We will give further recommendations on dosing tomorrow based on labs. Recommendations: ?? Hold vancomycin today ?? Re-check trough and kidney function tomorrow morning ?? Further recommendations to follow ID Consult GREEN team will continue to follow patient. JEANIE WATSON MD 01/03/2013 3:00 PM Attending Addendum: I have seen and examined the patient, reviewed the data and agree with the note by Dr. Watson. Patient is known to us from her recent admission for TTP/HUS, likely from a diarrheal pathogen,. She had bacteremia from a dialysis catheter and was sent home on vancomycin, with a stable but elevated creatinine. Unfortunately her creatinine is up, likely due to diuresis, but could also be in part from the vanco as renal toxicity can be potentiated by volume depletion and high levels. Will need to see what her levels are in the AM and make further decisions about the use of vanco vs linezolid vs daptomycin. D/w team. * Dez Bishop RN - 01/02/2013 2:56 PM EDT Patient Name: Anum Henriquez Patient Age: 52 y.o. Birthdate: 1960 Admit date: 12/30/2012 Attending Physician: Dipak Verma MD Office of Care Management (OCM) / Clinical Medical And Scientific Illustrator (CRC) Continuing Care Note Care reviewed with hematology/blood and marrow transplant team and at interdisciplinary discharge rounds. . Situation: Need for home oxygen. Qualifying sats complete. Chose [facility] [employer] as a vendor. Need to resume home IV abx's, OPAT notified> Patient has drug on hand. Background: TTP-HUS admitted for shortness of breath Assessment: need for home services Time line for discharge is tomorrow Rec's/Plan: 1. OPAT orders pending 2. Referral to [facility] done 3. Referral to [facility] done 4. Referral to [facility] done> they will bring portable to room. Gorge Bishop RN Clinical Medical And Scientific Illustrator Office of Care Management Pager [phone] * Dez Bishop RN - 01/02/2013 2:05 PM EDT Patient Name: Anum Henriquez Patient Age: 52 y.o. Birthdate: 1960 Admit date: 12/30/2012 Attending Physician: Dipak Verma MD Office of Care Management Clinical Medical And Scientific Illustrator Home IV Antibiotic Therapy Referral Note. Report received from Dr. Ruiz that patient will require continued home IV antibiotic therapy after discharge from the hospital. Met with patient/family to discuss vendor and visiting nurse choices for home IV antibiotic therapy. Reviewed Home Infusion Vendors and Home Health Agencies that serve patient???s address and accept patient???s insurance. Home Health Agency: Patient requested referral to [facility] PHONE: [phone] FAX: [phone] Referrals sent via edischarge. Home Infusion Vendor: Patient requested referral to [place], [place] or Referrals sent via edischarge. Diabetic Status: Patient is not a diabetic. IV access: Type of line: PICC Date placed: 12/27/12 Gorge Bishop RN Clinical Medical And Scientific Illustrator Hematology/Blood and Marrow Transplant Office of Care Management Pager [phone] * Dipak Verma MD - 01/02/2013 1:50 PM EDT Inpatient Hematology/Oncology/SCT Progress Note Patient info: Name: Anum Henriquez : 1960 PCP: BAKARI COSTELLO APRN PCP phone number: [phone] Date of Admission: 12/30/2012 ( Hospital Day 3 days ) Service: Hem/Onc Team A - Pager [phone] Responsible Attending:Dipak Verma MD ID: 52 y.o. female with a hx of Graves' disease, recently discharged (12/27) from [facility] [place] treatment with plasma exchange for TTP-HUS a/w 4 days bloody diarrhea and admitted for SOB and edema. Hospital Problem List: Patient Active Problem List Diagnoses Code ??? Hemorrhagic colitis 558.9 ??? Thrombocytopenia 287.5 ??? Hyperthyroidism 242.90 ??? 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 HUS (hemolytic uremic syndrome) 283.11 ??? TACO (transfusion associated circulatory overload) 276.61 ??? MRSA bacteremia 790.7 Resolved Problems: 24 Hour Events/ Subjective: - po Lasix x2 yesterday. Net out -2.8L Cr stable 2.18 - added ASA and Lisinopril to metoprolol for CHF regimen - Walking O2 test yesterday: still desats into mid 80s - required less O2 overnight (2L NC) - reports abdominal pain today b/l under ribs and epigastric Antimicrobials: Vanco Chemotherapy/Transplant Meds: None Chemo day # Pain meds: Tylenol Lines: Other Meds: Scheduled Meds: ??? furosemide 40 mg Oral Daily ??? metoprolol 25 mg Oral Q6H KATIE ??? warfarin 5 mg Oral Once ??? lisinopril 2.5 mg Oral Daily ??? aspirin 81 mg Oral Daily ??? furosemide 40 mg Oral Once ??? DISCONTD: atorvastatin 80 mg Oral QPM ??? DISCONTD: amlodipine 5 mg Oral Daily ??? enoxaparin 80 mg Subcutaneous Daily ??? sodium chloride 0.9 % 5 mL Intravenous Q12H ??? warfarin (COUMADIN) daily order reminder Oral Q24H ??? vancomycin 750 mg Intravenous Q24H ??? esomeprazole 40 mg Oral Daily Continuous Infusions: PRN Meds:.labetalol, LORazepam, ondansetron, promethazine, acetaminophen Vitals: Last value Range last 24 hrs Temperature Temp: 36.8 ??C (98.2 ??F) Temp: [36.4 ??C (97.5 ??F)-36.8 ??C (98.2 ??F)] Heart Rate Heart Rate: 82 Heart Rate: [76-86] Blood Pressure BP: 111/81 mmHg BP: (111-137)/(81-99) Respiratory Rate Resp: 20 Resp: [18-20] SpO2 SpO2: 95 % SpO2: [94 %-97 %] Intake/Output Summary (Last 24 hours) at 01/02/13 0949 Last data filed at 01/02/13 0902 Gross per 24 hour Intake 1501 ml Output 3725 ml Net -2224 ml Patient Vitals for the past 168 hrs: Weight 01/02/13 0631 59.6 kg (131 lb 6.3 oz) 01/01/13 0658 61.1 kg (134 lb 11.2 oz) 12/31/12 0413 64.1 kg (141 lb 5 oz) 12/30/12 1225 66.2 kg (145 lb 15.1 oz) Admit wt:66.20 kg Change in weight to today: Physical Exam: Gen: AAOX3, NAD, comfortable sitting up HEENT: Anicteric sclera, OP clear with mmm Neck: Supple with normal ROM, No cervical LAD appreciated, CV: NRRR without murmur, rub, click or luz Resp: fine crackles at bases, breath sounds at bases. Nl respiratory effort Abd: Soft, +epigastric tenderness + tenderness across abdomen under ribs, ND, NABS, No HSM appreciated EXT: WWP, trace edema at ankles, 2+equal dpp bl Skin: No rashes, sores or ulcers Neuro: Nonfocal, Moving all 4 extremities equally Labs: Recent Labs Basename 01/02/1351401/01/1342412/31/12 040 WBC 4.5 5.0 7.2 HGB 9.0* 8.8* 9.1* HCT 27.8* 26.3* 27.8* PLATELET 226 247 317 NEUTROABS 2.69 3.42 4.74 Recent Labs Basename 01/02/1351401/01/1342412/31/1239912/27/12 0357 NA 139 138 139 -- K 4.0 3.4* 4.2 -- CL 102 100 103 -- CO2 27 27 25 -- BUN 10 11 11 -- CREATININE 2.18* 2.06* 2.14* -- GLUCOSE -- -- -- 108 Recent Labs Basename 01/02/1351401/01/1342412/31/1239912/27/12 035 CALCIUM 9.2 9.1 8.9 -- MAGNESIUM -- -- -- 0.81 PHOS -- -- -- 4.4 No results found for this basename: AST:3,ALT:3,ALKPHOS:3,BILITOT:3,BILIDIR:3 in the last 168 hours Recent Labs Basename 01/02/1351401/01/1342412/31/12 0400 INR 1.8* 1.8* 1.7* PT 21.1* 21.4* 20.3* PTT -- -- -- Recent Labs Basename 01/02/1351401/01/1342412/27/12 0357 LDH 229* 235* 257* URICACID -- -- -- Troponin: 0.06 / 0.06 BNP 16.4K Microbiology: Blood Culture: None Urine Culture: None Pertinent radiology/diagnostic studies: 12/31/12: TTE SUMMARY: 1. The left ventricular chamber size is normal. Left ventricular wall thickness is normal. There isdiffuse hypokinesis present with some variation in segmental function. Global left ventricular systolic function is moderately reduced. Ejection fraction is estimated to be 40%. 2. Right ventricular chamber size, wall thickness, and systolic function are within normal limits. 3. There is no hemodynamically significant valve disease. 4. The estimated pulmonary artery systolic pressure is 52 mmHg. There is evidence that pulmonary hypertension may be underestimated. 12/30/12 CXR PA & Lateral: Findings : The previously seen right IJ catheter and PICC catheter have been removed and there is anew left-sided PICC catheter terminating in the SVC. There is no other interval change, allowing for the more upright positioning. Again seen are bilateral pleural effusions and bibasilar opacities most likely due to a combination of atelectasis and mild pulmonary edema. The mid and upper lungzonesremain clear. Impression: No significant interval change. Persistent pleural effusions and bibasilar atelectasis and pulmonary edema. Interval changes of central lines. 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 Presented with worsening SOB, orthopnea, and LE edema. Diuresed well with good improvement in sx and stablekidney function. On daily po diuretic. Acute systolic CHF thought to be 2/2 diffuse microthrombi to coronary vessels s/p TTP/HUS. Will medically manage and started appropriate medications for CHF. Follow up w/ Cardiology and TTE in 1 month. Still hypoxic on exertion and uses 2-3L overnight. VQ scan yesterday c/b pleural effusions so unreliable result. Multifactorial etiology likely - acute systolic CHF, pleural effusions, microthrombi in lungs 2/2 TTP. Likely need home O2. Reports abdominal pain today that was present before admissionand may be a/w pleural effusions. Will get LFTs and lipase. PLAN: # Acute Systolic CHF: - PO lasix BID until see bump in Cr - started meds for CHF: Metoprolol, Lisinopril, ASA - monitor electrolytes and Cr - monitor I/Os - daily weights - low salt diet and fluid restrict to 1.5L/d #Hypoxia: - Continuing to diurese # Abdominal Pain: - LFTs - Lipase #HTN: - Metoprolol to 25mg q6h - Labetalol prn - Lisinopril 2.5mg qd # s/p MRSA Bacteremia - continue vancomycin 750mg IV q24h through 01/14/13 - Vanco level therapeutic at 19.2 # s/p Bilateral DVT - Cont bridging lovenox SubCut 80mg qd until INR therapeutic (INR 1.8 again today) - Warfarin 5mg qd depending on daily INR - Goal INR 2-3 #FEN: - monitor lytes and replete prn - Cardaic, low salt diet with fluid intake limited to 1.5L qd PPx: DVT- Lovenox/Warfain GI- Osemeprazole CODE STATUS: Full Code Dispo- Likely home pending resolution of sx PEGGY BAÑUELOS MD 01/02/2013 Team Pager #[phone] I have personally seen and examined the patient. I have reviewed all pertinent laboratory and radiographic findings. I agree with the assessment and plan as outlined by Dr Bañuelos and have the following additional comments. 52 yo woman with TTP-HUS who presented with shortness of breath. The latter is likely multifactorial, due to TTP-HUS and microthrombi leading to heart failure and possible PE. - continue diuresis given that she has persistent pleural effusions and mild LE edema. BNP trackingmay be helpdul to determine progress as well. - V/Q scan is less helpful given residual pleural effusions however there is no V/Q mismatch identified outside of those becker. Still small microemboli will probably not be identified on this study. - she has mild epigastric pain this morning. This sounds non cardiac and we will attempt Maalox or another antacid of her choice. * Mary Jane Silva LD - 01/02/2013 12:28 PM EDT Nutrition Progress Note: S: Per pt: I try to eat at least 50% of my meals. Chewing/Swallowing: No issues per pt N/V: No issues per pt O: Patient Active Problem List Diagnoses Code ??? Hemorrhagic colitis 558.9 ??? Thrombocytopenia 287.5 ??? Hyperthyroidism 242.90 ??? 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 HUS (hemolytic uremic syndrome) 283.11 ??? TACO (transfusion associated circulatory overload) 276.61 ??? MRSA bacteremia 790.7 No past medical history on file. Diet: [facility], 2 gm Na+, 1500 ml FR Height: 170 cm Admit Weight: 66.2 kg BMI: 23 UBW: 73.6 kg (12/17 Labs: Creat; 2.18, Est. GFR: 24 Medications: Lasix, Coumadin, Nexium, others noted A: Pt seen for initial nutrition evaluation. 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 Po intake continues to be suboptimal. Pt reports consuming about 50% of meals but that she doesn't have much of an appetite due to foods not tasting good. Weight is down 7.4 kg since initially seen by nutrition on 12/17. Encouraged pt to think of food like she does medicine, necessary to feel well and maintain her strength. Reviewed high protein food choices and supplements. Pt reports that sweet things turn her off. She is interested in salty snacks. Reviewed with pt the importance of adhering to a 2 gm Na+ diet given new CHF. Will provide crackers and peanut butter as a 2 pm snack if within Na+ limit. Recommend checking pt pre-albumin with next lab draws. Pt with 9.9% severe weight loss over the past month. Severe weight loss and depleted serum protein are consistent with singes of PCM. P: 1. Recommend checking pt pre-albumin with next lab draws. 2. Snacks between meals as diet restriction allows. 3. Monitor weight. 4. Encourage po intake. 5. Nutrition to follow up in one week, unless consulted sooner. * Dipak Verma MD - 01/01/2013 6:33 AM EDT Inpatient Hematology/Oncology/SCT Progress Note Patient info: Name: Anum Henriquez : 1960 PCP: BAKARI COSTELLO APRN PCP phone number: [phone] Date of Admission: 12/30/2012 ( Hospital Day 2 days ) Service: Hem/Onc Team A - Pager [phone] Responsible Attending:Haris Jarvis MD ID: 52 y.o. female with a hx of Graves' disease, recently discharged (12/27) from [facility] following treatment with plasma exchange for TTP-HUS a/w 4 days bloody diarrhea and admitted for SOB and edema. Hospital Problem List: Patient Active Problem List Diagnoses Code ??? Hemorrhagic colitis 558.9 ??? Thrombocytopenia 287.5 ??? Hyperthyroidism 242.90 ??? 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 HUS (hemolytic uremic syndrome) 283.11 ??? TACO (transfusion associated circulatory overload) 276.61 ??? MRSA bacteremia 790.7 Resolved Problems: 24 Hour Events/ Subjective: - Lasix yesterday Net out -3.9L Cr stable 2.06 (baseline) - TTE yesterday showed reduced EF 40% and global hypokinesis. +Pulm HTN - Troponin leak 0.06x2 - Diastolic BPs high. Started metoprolol. Labetalol o/n for DBP >90 used x1 - Walking O2 test yesterday: Sat mid 70% w/o O2 and needed 8L to get to mid 80s. Antimicrobials: Vanco Chemotherapy/Transplant Meds: None Chemo day # Pain meds: Tylenol Lines: Other Meds: Scheduled Meds: ??? potassium chloride 60 mEq Oral Once ??? furosemide 40 mg Intravenous Once ??? epoetin janine 20,000 Units Subcutaneous Once ??? amlodipine 5 mg Oral Daily ??? warfarin 5 mg Oral Once ??? labetalol 5 mg Intravenous Once ??? metoprolol 12.5 mg Oral Q6H KATIE ??? DISCONTD: labetalol 5 mg Intravenous Once ??? enoxaparin 80 mg Subcutaneous Daily ??? sodium chloride 0.9 % 5 mL Intravenous Q12H ??? warfarin (COUMADIN) daily order reminder Oral Q24H ??? vancomycin 750 mg Intravenous Q24H ??? esomeprazole 40 mg Oral Daily Continuous Infusions: PRN Meds:.labetalol, LORazepam, ondansetron, promethazine, acetaminophen Vitals: Last value Range last 24 hrs Temperature Temp: 36.4 ??C (97.5 ??F) Temp: [36.4 ??C (97.5 ??F)-36.8 ??C (98.2 ??F)] Heart Rate Heart Rate: 92 Heart Rate: [81-101] Blood Pressure BP: 144/95 mmHg (Dr. Ruiz notified) BP: (123-161)/(83-119) Respiratory Rate Resp: 20 Resp: [20-22] SpO2 SpO2: 96 % SpO2: [79 %-98 %] Intake/Output Summary (Last 24 hours) at 01/01/13 0813 Last data filed at 01/01/13 0425 Gross per 24 hour Intake 984 ml Output 5075 ml Net -4091 ml Patient Vitals for the past 168 hrs: Weight 01/01/13 0658 61.1 kg (134 lb 11.2 oz) 12/31/12 0413 64.1 kg (141 lb 5 oz) 12/30/12 1225 66.2 kg (145 lb 15.1 oz) Admit wt:66.20 kg Change in weight to today: Physical Exam: Gen: AAOX3, NAD, comfortable HEENT: Anicteric sclera, OP clear with mmm Neck: Supple with normal ROM, No cervical LAD appreciated, CV: RRR without murmur, rub, click or luz Resp: Crackles at bases, Nl respiratory effort Abd: Soft, epigastric tendernes, ND, NABS, No HSM appreciated EXT: WWP, No edema, 2+equal dpp bl Skin: No rashes, sores or ulcers Neuro: Nonfocal, Moving all 4 extremities equally Labs: Recent Labs Basename 01/01/13 0425 12/31/12 0400 12/30/12 1617 WBC 5.0 7.2 6.3 HGB 8.8* 9.1* 9.1* HCT 26.3* 27.8* 26.5* PLATELET 247 317 289 NEUTROABS 3.42 4.74 4.46 Recent Labs Basename 01/01/13 0425 12/31/12 0400 12/30/12 16112/27/1235612/26/12 0342 NA 138 139 139 -- -- K 3.4* 4.2 3.0* -- -- CL 100 103 102 -- -- CO2 27 25 25 -- -- BUN 11 11 11 -- -- CREATININE 2.06* 2.14* 2.02* -- -- GLUCOSE -- -- -- 108 99 Recent Labs Basename 01/01/13 04212/31/1239912/30/12161612/27/1235612/26/12 0342 CALCIUM 9.1 8.9 9.1 -- -- MAGNESIUM -- -- -- 0.81 0.80 PHOS -- -- -- 4.4 4.1 No results found for this basename: AST:3,ALT:3,ALKPHOS:3,BILITOT:3,BILIDIR:3 in the last 168 hours Recent Labs Basename 01/01/13 04212/31/120 12/30/12 1529 INR 1.8* 1.7* 1.5* PT 21.4* 20.3* 18.9* PTT -- -- -- Recent Labs Basename 01/01/1342412/27/1235612/26/12 0342 LDH 235* 257* 255* URICACID -- -- -- Troponin: 0.06 / 0.06 BNP 16.4K Microbiology: Blood Culture: None Urine Culture: None Pertinent radiology/diagnostic studies: 12/31/12: TTE SUMMARY: 1. The left ventricular chamber size is normal. Left ventricular wall thickness is normal. There isdiffuse hypokinesis present with some variation in segmental function. Global left ventricular systolic function is moderately reduced. Ejection fraction is estimated to be 40%. 2. Right ventricular chamber size, wall thickness, and systolic function are within normal limits. 3. There is no hemodynamically significant valve disease. 4. The estimated pulmonary artery systolic pressure is 52 mmHg. There is evidence that pulmonary hypertension may be underestimated. 12/30/12 CXR PA & Lateral: Findings : The previously seen right IJ catheter and PICC catheter have been removed and there is anew left-sided PICC catheter terminating in the SVC. There is no other interval change, allowing for the more upright positioning. Again seen are bilateral pleural effusions and bibasilar opacities most likely due to a combination of atelectasis and mild pulmonary edema. The mid and upper lungzonesremain clear. Impression: No significant interval change. Persistent pleural effusions and bibasilar atelectasis and pulmonary edema. Interval changes of central lines. 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 Presented with worsening SOB, orthopnea, and LE edema. Diuresed well with good improvement in sx and stablekidney function. Transitioning to po diuretic today. Given Low EF and global hypokinesis on TTE, etiology of HF likely 2/2 diffuse microthrombi to coronary vessels s/p TTP/HUS. Plan for nuclear perfusion stress test in 2 weeks and repeat TTE in a month. Meanwhile, medical management of HF and will adjust meds per Cardiology reccs. She remains hypoxic and desaturates with any exertion. Qualifies for home O2 based on walking O2 test yesterday and today. Etiology of hypoxia unclear - possibly 2/2 pleural effusions/edma, possible PE given she has DVTs, possibly microthrombi in lungs too. Will get CXR to assess resolution of effusions. If non-contributory will go for VQ scan to eval for PE. PLAN: # CHF: - switch to po lasix 40mg (almost at baseline wt) - monitor electrolytes and Cr - monitor I/Os - daily weights - low salt diet and fluid restrict to 1.5L/d - repeat CXR #Hypoxia: - CXR - Possible VQ scan if pulm edema/effusions normalized on CXR #HTN: - Increase metoprolol to 25mg q6h - Labetalol prn - will adjust meds per Cadriology reccs (appreciate the consult) # s/p MRSA Bacteremia - continue vancomycin 750mg IV q24h through 01/14/13 - Vanco level therapeutic at 19.2 # s/p Bilateral DVT - Cont bridging lovenox SubCut 80mg qd until INR therapeutic (INR 1.8 today) - Warfarin 5mg qd depending on daily INR - Goal INR 2-3 #FEN: - monitor lytes and replete prn - Cardaic, low salt diet with fluid intake limited to 1.5L qd PPx: DVT- Lovenox/Warfain GI- Osemeprazole CODE STATUS: Full Code Dispo- Likely home pending resolution of sx PEGGY BAÑUELOS MD 01/01/2013 Team Pager #[phone] I have personally seen and examined the patient. I have reviewed all pertinent laboratory and radiographic findings. I agree with the assessment and plan as outlined by Dr Bañuelos and have the following additional comments. 52 yo woman with TTP-HUS who presented with shortness of breath. The latter likely multifactorial, due to TTp-HUS and microthrombi leading to heart failure and possible PE. - she feels better - continue diuresis - repeat CXR to assess progress - consider V/Q scan to document PE's however would achieve optimal volume first as she is anticoagulated and is being transitioned to coumadin * Dez Bishop RN - 12/31/2012 5:07 PM EDT Patient Name: Anum Henriquez Patient Age: 52 y.o. Birthdate: 1960 Admit date: 12/30/2012 Attending Physician: Haris Jarvis MD Office of Care Management (OCM) / Clinical Medical And Scientific Illustrator (CRC) Initial Assessment Care reviewed with hematology/blood and marrow transplant team and at interdisciplinary discharge rounds. Reviewed record and interviewed patient. Introduced/reviewed CRC role and services accepted. Reason for hospitalization: TTP-HUS admitted for shortness of breath Patient Active Problem List Diagnoses Code ??? Hemorrhagic colitis 558.9 ??? Thrombocytopenia 287.5 ??? Hyperthyroidism 242.90 ??? 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 HUS (hemolytic uremic syndrome) 283.11 ??? TACO (transfusion associated circulatory overload) 276.61 ??? MRSA bacteremia 790.7 Prescriptions prior to admission Medication Sig Dispense Refill ??? ondansetron (ZOFRAN) 8 mg tablet Take 1 tablet by mouth every 8 hours as needed for Nausea. Try1/2 tablet first. If ineffective, use whole tablet 20 tablet 0 ??? promethazine (PHENERGAN) [address] 0.5 suppositories rectally every 6 hours as needed for Nausea. Ok to use 1 whole suppository if 1/2 does not work. 5 suppository 0 ??? ondansetron (ZOFRAN-ODT) 4 mg oral disintegrating tablet Take 1 tablet by mouth every 8 hours as needed for Nausea. 5 tablet 0 ??? omeprazole (PRILOSEC) 40 mg capsule Take 1 capsule by mouth daily. 30 capsule 11 ??? warfarin (COUMADIN) 5 mg tablet Take 1 tablet by mouth daily for 7 days. 7 tablet 0 ??? enoxaparin (LOVENOX) 80 mg/0.8 mL injection Inject 0.8 mLs subcutaneously daily for 12 days. 9.6 mL 0 ??? warfarin (COUMADIN) 5 mg tablet Take 1 tablet by mouth daily. 15 tablet 0 ??? Fxaidymdthg-Jwfroptmf-Sqn C-Mn 500-400 mg Cap ??? Revere-3 Fatty Acids-Vitamin E (OMEGA-3 FISH OIL) 1,000-5 mg-unit Cap ??? CALCIUM ORAL ??? prochlorperazine (COMPAZINE) 10 mg tablet Take 1 tablet by mouth every 6 hours as needed for Nausea (Nausea/Vomiting) for 7 days. 15 tablet 2 Allergies Allergen Reactions ??? Erythromycin Base Subjective: Transition to home on IV abx went well following discharge last week. Started getting short of breath at rest and went to [facility] ED and transferred to [facility]. Previous functional status: Patient is independent with mobility/ambulation, transfers, ADL's, IADL's. Uses [facility] Current functional status: Is ambulating independently in room> [x} Yes Rehab referral: [x} No Home set up: Single story home with no steps to enter. Family and social supports: with grown son and daughter that live locally. Has lived in [facility] all of her life. Mother and father are in a retirement close by. Many friends and well connected in the community. Extended Emergency Contact Information Primary Emergency Contact: Liu Henriquez Relation: Durable Power of Restaurant Shift Supervisor for Healthcare Secondary Emergency Contact: Liu Roberts Relation: Sibling Father: Venita Vora Advance directives: None on file. States she has a copy at home. Code status: Full Code Insurance: Commercial Financial Issues: [x} No Referral to financial services: [x} No Preferred Pharmacy:[address], [address] outpatient pharmacy. DME: Yes [facility] Home Health Agency: [x} Yes [facility] IV Access: Peripheral Edwardo-Cath PICC Tunneled Central Line Home Infusion: Yes [facility] [employer] MAK[employer] DEMONSTRATOR Referral: Kemal Tinoco CERAMIC MAKER DEMONSTRATOR Referral indicated: [x} No Primary Care Physician: BAKARI COSTELLO APRN [phone] Primary [facility] Chief Medical Director: Dr. Romero Referring Chief Medical Director: Potential discharge needs: Undetermined Anticipated barriers to discharge: No Transportation at discharge: Plan: CRC will continue to monitor progress, follow for continuity of care and assist with discharge planning. Future Appointments Date Time Provider Department Center 01/13/2013 3:30 PM Brian Velazco MD [facility] 01/14/2013 10:05 AM Minor Kebede MD [facility] 01/14/2013 10:30 AM Clovis Varner MD [facility] [address] [place] [address] CLIN . Dez Bishop RN Clinical Medical And Scientific Illustrator Office of Care Management Pager [phone] * Haris Jarvis MD - 12/31/2012 6:55 AM EDT Inpatient Hematology/Oncology/SCT Progress Note Patient info: Name: Anum Henriquez : 1960 PCP: BAKARI COSTELLO APRN PCP phone number: [phone] Date of Admission: 12/30/2012 ( Hospital Day 1 day ) Service: Hem/Onc Team A - Pager [phone] Responsible Attending:Haris Jarvis MD ID: 52 y.o. female with a hx of Graves' disease, recently discharged (12/27) from [facility] following treatment with 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 Hospital Problem List: Patient Active Problem List Diagnoses Code ??? Hemorrhagic colitis 558.9 ??? Thrombocytopenia 287.5 ??? Hyperthyroidism 242.90 ??? 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 HUS (hemolytic uremic syndrome) 283.11 ??? TACO (transfusion associated circulatory overload) 276.61 ??? MRSA bacteremia 790.7 Resolved Problems: 24 Hour Events: - ALYSSA overnight, asked O2 to be inceased to 4L for SOB - Got 40 IV lasix yesterday and net -2.3L ; Cr bumped 2.0-> 2.14 - Needed 4L O2 NC overnight though unclear if O2 dropped. She was able to ambulate around [facility] unit this am without oxygen - Eating well Subjective: - Feels better,. states 'less congested' Antimicrobials: Vanco Chemotherapy/Transplant Meds: None Chemo day # Pain meds: Tylenol Lines: Other Meds: Scheduled Meds: ??? enoxaparin 80 mg Subcutaneous Daily ??? sodium chloride 0.9 % 5 mL Intravenous Q12H ??? furosemide 40 mg Intravenous Once ??? warfarin 5 mg Oral Once ??? warfarin (COUMADIN) daily order reminder Oral Q24H ??? Vancomycin Level - MAR Order Reminder NOT APPLICABLE Once And ??? vancomycin 750 mg Intravenous Q24H ??? esomeprazole 40 mg Oral Daily ??? potassium chloride 20 mEq Intravenous Q1H ??? DISCONTD: omeprazole 40 mg Oral Daily ??? DISCONTD: vancomycin 750 mg Intravenous Q24H ??? DISCONTD: Vancomycin Level - MAR Order Reminder NOT APPLICABLE Once Continuous Infusions: PRN Meds:.ondansetron, promethazine, acetaminophen Vitals: Last value Range last 24 hrs Temperature Temp: 36.8 ??C (98.2 ??F) Temp: [36.6 ??C (97.9 ??F)-37 ??C (98.6 ??F)] Heart Rate Heart Rate: 86 Heart Rate: [85-100] Blood Pressure BP: 130/100 mmHg BP: (124-138)/(64-102) Respiratory Rate Resp: 20 Resp: [20] SpO2 SpO2: 97 % SpO2: [94 %-98 %] Intake/Output Summary (Last 24 hours) at 12/31/12 1020 Last data filed at 12/31/12 0952 Gross per 24 hour Intake 1390 ml Output 3995 ml Net -2605 ml Patient Vitals for the past 168 hrs: Weight 12/31/12 0413 64.1 kg (141 lb 5 oz) 12/30/12 1225 66.2 kg (145 lb 15.1 oz) Admit wt:66.20 kg Change in weight to today: Physical Exam: Gen: AAOX3, NAD, comfortable HEENT: Anicteric sclera, OP clear with mmm Neck: Supple with normal ROM, No cervical LAD appreciated, CV: RRR without murmur, rub, click or luz Resp: Crackles at bases and decreased breath sounds at bases, Nl respiratory effort Abd: Soft, epigastric tendernes, ND, NABS, No HSM appreciated EXT: WWP, 2+ pitting edema to shins b/l; 2+equal dpp bl Skin: No rashes, sores or ulcers Neuro: Nonfocal, Moving all 4 extremities equally Labs: Recent Labs Basename 12/31/12 0400 12/30/12161612/27/12 0357 WBC 7.2 6.3 8.2 HGB 9.1* 9.1* 9.0* HCT 27.8* 26.5* 27.0* PLATELET 317 289 317 NEUTROABS 4.74 4.46 5.61 Recent Labs Basename 12/31/12 0400 12/30/12 1617 12/27/12 0357 12/26/12 0342 12/25/12 0414 NA 139 139 138 -- -- K 4.2 3.0* 3.5 -- -- CL 103 102 104 -- -- CO2 25 25 23 -- -- BUN 11 11 10 -- -- CREATININE 2.14* 2.02* 2.10* -- -- GLUCOSE -- -- 108 99 99 Recent Labs Basename 12/31/12 0400 12/30/12 1617 12/27/12 0357 12/26/12 0342 12/25/12 0414 CALCIUM 8.9 9.1 8.3* -- -- MAGNESIUM -- -- 0.81 0.80 0.80 PHOS -- -- 4.4 4.1 3.4 Recent Labs Basename 12/24/12 1300 AST -- ALT -- ALKPHOS -- BILITOT 0.4 BILIDIR 0.1 Recent Labs Basename 12/31/12 0400 12/30/12 1529 INR 1.7* 1.5* PT 20.3* 18.9* PTT -- -- Recent Labs Basename 12/27/12 0357 12/26/12 0342 12/25/12 1204 LDH 257* 255* 288* URICACID -- -- -- Microbiology: Blood Culture: None Urine Culture: None Pertinent radiology/diagnostic studies: 12/30/12 CXR PA & Lateral: Findings : The previously seen right IJ catheter and PICC catheter have been removed and there is anew left-sided PICC catheter terminating in the SVC. There is no other interval change, allowing for the more upright positioning. Again seen are bilateral pleural effusions and bibasilar opacities most likely due to a combination of atelectasis and mild pulmonary edema. The mid and upper lungzonesremain clear. Impression: No significant interval change. Persistent pleural effusions and bibasilar atelectasis and pulmonary edema. Interval changes of central lines. 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 Presented with worsening SOB, orthopnea, and LE edema. Diuresed well yesterday and will continue for sx improvement. Etiolgy: a new HF vs CKD. TTE today to evaluate cardiac. Notably she as renal follow-up alr arun as outpatient after her TTP/HUS, with appt. next week. PLAN: # Volume Overload: Unclear etiology - CHF vs renal disease - lasix 40mg IV this am - monitor electrolytes and Cr (2.1 today) - monitor I/Os - daily weights - low salt diet and fluid restrict to 1.5L/d - TTE # s/p MRSA Bacteremia - continue vancomycin 750mg IV q24h through 01/14/13 - Check Vanco level # s/p Bilateral DVT - Cont bridging lovenox SubCut 80mg qd until INR therapeutic (INR 1.5 today) - Warfarin 5mg qd depending on daily INR - Goal INR 2-3 #FEN: - monitor lytes and replete prn - Cardaic, low salt diet with fluid intake limited to 1.5L qd PPx: DVT- Lovenox/Warfain GI- Osemeprazole CODE STATUS: Full Code Dispo- Likely home pending resolution of sx PEGGY BAÑUELOS MD 12/31/2012 Team Pager #[phone] I have independently interviewed and examined this patient and have personally reviewed the relevant clinical, laboratory and radiological data with the housestaff on rounds. Please refer to the comprehensive progress note above, with which I concur, for complete details of our encounter with this patient. I have reviewed and endorse the plan as outlined and have made any additions/corrections below. Patient with TTP/HUS which appears quiescent. Now being followed with persistent renal insufficiency and a picture suggestive of congestive heart failure. She did have her echo today which shows a left ventricular global hypokinesis and a ejection fraction of 40%. There is moderate pulmonary hypertension. I suspect that she suffered some micro-thrombi during her active TTP causing her left ventricular dysfunction. We will continue with diuresis and consult cardiology. She would probably benefit from some afterload reduction. I do not think she has active coronary disease or active hemolytic uremic syndrome. * Kemal Kumar - 12/30/2012 5:55 PM EDT [facility] Encounter Note Patient Name: Anum Henriquez : [id number] MR#: [id number] Admit Date: 12/30/2012 12:13 PM Hospital Day 0 days Narrative: Visited patient as part of ongoing care. She reports an interest in attending [facility] Sunday an on. Assessment: Patient was lucid and pleasant. Intervention and Outcome: The encounter provided spiritual support Follow-up: Visit Sunday Time in Direct Care: 5 minutes Kemal Kumar 12/30/2012 documented in this encounter H&P Notes * Haris Jarvis MD - 12/30/2012 4:49 PM EDT Hematology/Oncology Admission History and Physical Patient Name: Anum Henriquez Service: M3A Responsible Attending: Haris Jarvis MD, MD PCP: BAKARI COSTELLO APRN PCP phone #: [phone] Outpt Chief Medical Director/Oncologist: ID/Chief Complaint: 52-y/o female with a hx of Graves' disease, recently discharged (12/27) from [facility] following treatment with 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 History of Present Illness: Ms. Henriquez was discharged home from [facility] on 12/27/12 following treatment for TTP-HUS, MRSA Bacteremia and bilateral DVTs. During her illness she developed DELVIS and Cr stabilized at 2.0 on discharge, up from 1.45 at admission. Over the weekend she noticed that her legs were more 'puffy' and she was gradually becoming more SOB. This was worse on exertion but was also present at rest. She endorses new orthopnea, requiring 4 pillows at night over the weekend and last night had to sleep in the chairdue to dyspnea when lying flat. Concerned, she presented to the ED at [facility] for evaluation. She was noted to be saturating at mid 90s on RA and an ECG there showed NSR and no ST changes. She was transferred to [facility] and admitted to the Hematology Service. She denies any chest pain. She gets a cough only if she takes a deep breath but has no pleuritic pain. No f/c/n/v/d. She reports that she has been anorexic these last few days and that food just doesnot look appealing to her. On admission she was clinically volume overloaded, afebrile, and saturating 91% on 3L NC. A CXR revealed b/l pleural effusions along with pulmonary edema. Her creatinine was stable at 2.0 and she was started on 40mg IV lasix and began to diurese well. Review of Systems: GENERAL HEENT CV PULM All negative All negative All negative All negative Weight loss x Headache Chest Pain x Non-productive cough Weight gain Vision change Palpitations Productive cough Fevers Sinus congestion x Orthopnea Wheezing Chills Hoarseness x LE edema Hemoptysis Night sweats Epistaxis PND Pleuritic pain x Fatigue Syncope x SOB Claudication x GUEVARA MSK RENAL ENDO GI x All negative x All negative x All negative x All negative Arthralgias Frequency Heat intolerance Blood in stool Myalgias Urgency Cold intolerance Dysphagia Weakness Hematuria Polydipsia Odynophagia Stiffness Flank pain Polyphagia Abdominal discomfort Dysuria Cushingoid Constipation Foamy urine Diarrhea Discharge Nausea/Vomiting LYMPH SKIN NEURO PSYCH x All negative x All negative x All negative x All negative Swollen nodes Rash Seizures Depressed affect Tender nodes Ulcers Tremors Occupational stress Diffuse nodes Bruising Spasticity Anxiety Local nodes Tanned skin Focal weakness Insomnia Night sweats Telangiectasias Diplopia Paresthesias Dizziness Problem List/Past Medical History Patient Active Problem List Diagnoses ??? 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 Developed thrombocytopenia, DELVIS, microangiopathic hemolytic anemia acutely. Treatment: plasma exchange started 12/14/12. ADAMTS-13 activity normal. ??? HUS (hemolytic uremic syndrome) ??? TACO (transfusion associated circulatory overload) ??? MRSA bacteremia ??? Hemorrhagic colitis CT shows sparing of the sigmoid and rectum ??? Thrombocytopenia ??? Hyperthyroidism Graves disease stable on methimazole for 10+ years. Meds: No current facility-administered medications on file prior to encounter. Current Outpatient Prescriptions on File Prior to Encounter Medication Sig Dispense Refill ??? ondansetron (ZOFRAN) 8 mg tablet Take 1 tablet by mouth every 8 hours as needed for Nausea. Try1/2 tablet first. If ineffective, use whole tablet 20 tablet 0 ??? promethazine (PHENERGAN) [address] 0.5 suppositories rectally every 6 hours as needed for Nausea. Ok to use 1 whole suppository if 1/2 does not work. 5 suppository 0 ??? ondansetron (ZOFRAN-ODT) 4 mg oral disintegrating tablet Take 1 tablet by mouth every 8 hours as needed for Nausea. 5 tablet 0 ??? omeprazole (PRILOSEC) 40 mg capsule Take 1 capsule by mouth daily. 30 capsule 11 ??? warfarin (COUMADIN) 5 mg tablet Take 1 tablet by mouth daily for 7 days. 7 tablet 0 ??? enoxaparin (LOVENOX) 80 mg/0.8 mL injection Inject 0.8 mLs subcutaneously daily for 12 days. 9.6 mL 0 ??? warfarin (COUMADIN) 5 mg tablet Take 1 tablet by mouth daily. 15 tablet 0 ??? Tgarateiuku-Tmqikqcmq-Vpa C-Mn 500-400 mg Cap ??? Revere-3 Fatty Acids-Vitamin E (OMEGA-3 FISH OIL) 1,000-5 mg-unit Cap ??? CALCIUM ORAL ??? prochlorperazine (COMPAZINE) 10 mg tablet Take 1 tablet by mouth every 6 hours as needed for Nausea (Nausea/Vomiting) for 7 days. 15 tablet 2 Allergies: Allergies Allergen Reactions ??? Erythromycin Base Family History: No family history on file. Social History: History Substance Use Topics ??? Smoking status: Former Smoker Quit date: 06/15/1978 ??? Smokeless tobacco: Never Used ??? Alcohol Use: Yes socially Vitals: Last value Range last 24 hrs Temperature Temp: 36.9 ??C (98.4 ??F) Temp: [36.7 ??C (98.1 ??F)-36.9 ??C (98.4 ??F)] Heart Rate Heart Rate: 94 Heart Rate: [85-94] Blood Pressure BP: 138/100 mmHg BP: (132-138)/(64-100) Respiratory Rate Resp: 20 Resp: [20] SpO2 SpO2: 95 % SpO2: [95 %-98 %] I/O last 3 completed shifts: In: 685 [P.O.:480; I.V.:205] Out: 2069 [Urine:2069] Examination: General: Pleasant, alert, appropriate, in NAD. Appears stated age. HEENT: EOMI, PERRL, anicteric sclera. Oropharynx clear w/o lesions. Moist mucous membranes Neck: Supple with normal ROM. JVD to mid neck Lymph: No obvious cervical LAD Cardiac: Normal S1 and S2, Regular rate and rhythm; No murmrs/gallops/rubs. Respiratory: Nonlabored. Crackles to mid lung bilaterally; decreased breath sounds b/l Abd: + BS; soft, non-distended, mild TTP epigastric region, no obvious masses.Ecchymosis 2.2 lovenox injections Ext: 2+ pitting edema to knees b/l, no cyanosis or clubbing. DPP 2+ bilaterally. Neuro: II-XII grossly intact. Alert and orientated, no-focal deficits, sensation intact to crude touch Skin: No obvious rashs, lesions or petechiae Lines: PIV Laboratory: Recent Labs Basename 12/30/12161612/27/1235612/26/12341 WBC 6.3 8.2 6.1 HGB 9.1* 9.0* 8.3* HCT 26.5* 27.0* 25.3* PLATELET 289 317 231 NEUTROABS 4.46 5.61 3.99 Recent Labs Basename 12/30/12161612/27/127 12/26/12 0342 NA 139 138 141 K 3.0* 3.5 3.5 CL 102 104 106 CO2 25 23 24 BUN 11 10 11 CREATININE 2.02* 2.10* 2.05* Recent Labs Basename 12/24/12 1300 AST -- ALT -- ALKPHOS -- BILITOT 0.4 BILIDIR 0.1 Recent Labs Basename 12/30/12 16112/27/12 03512/26/12 0342 12/25/12 0414 CALCIUM 9.1 8.3* 8.5 -- MAGNESIUM -- 0.81 0.80 0.80 PHOS -- 4.4 4.1 3.4 Recent Labs Basename 12/30/12 1529 12/27/1235612/26/12 1031 12/25/12 1526 PT 18.9* 14.0 -- 14.5 PTT -- -- 36* 31 FIBRINOGEN -- -- -- -- DDIMER -- -- -- -- Recent Labs Basename 12/27/12 0357 12/26/12 0342 12/25/12 1204 LDH 257* 255* 288* URICACID -- -- -- Other Labs: None Microbiology: None Relevant Diagnostic Studies: 12/30/12 CXR PA & Lateral: Findings : The previously seen right IJ catheter and PICC catheter have been removed and there is anew left-sided PICC catheter terminating in the SVC. There is no other interval change, allowing for the more upright positioning. Again seen are bilateral pleural effusions and bibasilar opacities most likely due to a combination of atelectasis and mild pulmonary edema. The mid and upper lungzonesremain clear. Impression: No significant interval change. Persistent pleural effusions and bibasilar atelectasis and pulmonary edema. Interval changes of central lines. 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 On d/c last Sunday, she still had some residual pleural effusions on exam and mild peripheral edema but she worsened over the weekend and presented with SOB and increased edema. Diuresing her forsx improvement. The etiology is unclear though - - this could be a new HF 2/2 microthrombi and damage to the heart after TTP/HUS or indication of CKD. Plan on TTE tomorrow. PLAN: # Admit to Hematology/Oncology Team A # Volume Overload: Unclear etiology - CHF vs renal disease - lasix 40mg IV - monitor electrolytes and Cr - monitor I/Os - daily weights - low salt diet and fluid restrict to 1.5L/d - TTE in am # s/p MRSA Bacteremia - continue vancomycin 750mg IV q24h through 01/14/13 - Check Vanco level # s/p Bilateral DVT - Cont bridging lovenox SubCut 80mg qd until INR therapeutic (INR 1.5 today) - Warfarin 5mg qd depending on daily INR - Goal INR 2-3 #FEN: - monitor lytes and replete prn - Cardaic, low salt diet with fluid intake limited to 1.5L qd PPx: DVT- Lovenox/Warfain GI- Osemeprazole Code Status: FULL Code Dispo- Likely home pending resolution of sx PEGGY BAÑUELOS MD 12/30/2012 Team Pager # [phone] I have independently interviewed and examined this patient and have personally reviewed the relevant clinical, laboratory and radiological data with the housestaff on rounds. Please refer to the comprehensive progress note above, with which I concur, for complete details of our encounter with this patient. I have reviewed and endorse the plan as outlined and have made any additions/corrections below. Patient well known to us as she was just discharged 3 days ago. Readmitted with what appears to be worsening respiratory status. She does appear to have fluid overload. We will explore cardiac function and gently diuresis. documented in this encounter Procedure Notes * Provider, Scanning - 01/07/2013 6:52 PM EDTAssociated Order(s): SCAN DOC: LAB documented in this encounter Miscellaneous Notes * Plan of Care - Sera Lucas RN - 01/05/2013 11:01 AM EDT Problem: Pain, Acute (Adult, Obstetric) Goal: Acute Pain: Acceptable Pain Control/Comfort Level - Pain, Acute (Adult, Obstetric) Outcome: Absent and monitoring Pt has no c/o pain this shift. Will continue to monitor. Problem: Trauma/Injury Risk (Adult, Obstetric) Goal: Trauma/Injury Risk: Absence of Trauma/Injury/Falls Outcome: Absent and monitoring Pt ambulating independently in room and in hallway with spouse, oxygen walker and O2 sat monitor. Gait steady. No c/o dizziness or lightheadedness. Ambulated 264 feet on 2L O2 with saturation at 100%. Bedside commode utilized. Pt using call tobias appropriately. Problem: Skin Integrity Impairment, Risk/Actual (Adult, Obstetric) Goal: Skin Integrity Impairment, Risk/Actual: Skin Integrity/Wound Healing Outcome: Absent and monitoring Pt exhibits no skin breakdown. Ecchymosis noted on abdomen from Lovenox injections, otherwise skin and oral mucosa are intact. Repositions independently. Left PICC line site unremarkable. Will continue to monitor. Problem: Respiratory Insufficiency (Adult, Obstetric) Goal: Respiratory Insufficiency: Effective Respiration Outcome: Present (see interventions, notes) Lungs clear to auscultation. SpO2 > 95% on 2Lpm. Remains on 2L/ 24 hr fluid restriction. Will continue to monitor. Pt discharged today with O2 tank and O2 on at 2L. [facility] to supply home O2. Pt discharged with ABX (Daptomycin) Orders Q48 with next dose due Sunday at 11 AM. Provider coordinated supply of ABX delivery to home. * Discharge Summary - Flynn Ruiz MD - 01/05/2013 10:22 AM EDT Discharge Summary Patient Name Anum Henriquez Age 52 y.o. Date of 1960 Admission Date 12/30/2012 Discharge Date 01/05/2013 Attending Physician at Discharge Dipak Verma MD Follow-up Recommendations for Providers: -MED CHANGES: CHF: toprol, ASA, lisinopril started for new systolic CHF MRSA Line infx: Dapto replacing Vanco (competes 3w course on 01/14); supplied by [employer] Nausea: scheduled pre-meal Zofran -Hypoxia felt to be multifactorial (TTP microthrombi + volume overload) -Monitor resolution of volume overload/effusions and consider adding daily lasix if renal function allows -Will f/u w/ Cards ([facility] in [place]); should get repeat TTE in 1 month weeks (~01/31); considerstress testing -Complete bridge from lovenox to coumadin, has prescription for an additional 10 days. PCP's officeto manage INR/warfarin dosing. She needs to be told to stop the enoxaparin when appropriate. First check will be Saturday 01/06 (every Sun/Sun via [facility]). Therapeutic anticoagulation duration of warfarin therapy will be advised by Dr. Fabi Romero. -Monitor renal function/potassium (recheck several days from D/C; [facility] already checking while on Dapto) -Needs close follow-up in Nephrology clinic for stage III renal insufficiency. Pl -Monitor CMP/CK while on Dapto -Repeat CT abdomen/pelvis in 2 weeks to assess for resolution of colon wall thickening. If still abnormal, colonoscopy recommended. -Suspect persistent nausea and epigastric pain 2/2 TTP process to GI tract a/o pancreas (mildly elevated lipase) -Monitor persistent anemia, borderline low EPO levels (rec'd 1 dose 20K EPO on 12/31) -Continue to hold methimazole, no need to start a beta kirstie. F/u with Endo 01/14. Patient to contact Endo clinic if she has concerns for return of hyperthyroidism prior to her appt. Labs for the ppt obtained during admission. PENDING: Cardiolipin Ig, Beta-2 microglobulin Ig Discharge Diagnoses (Hospital Problems) and Secondary Diagnoses (Chronic Problems): There are no hospital problems to display for this patient. Active Non-Hospital Problems Diagnoses ??? 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 Developed thrombocytopenia, DELVIS, microangiopathic hemolytic anemia acutely. Treatment: plasma exchange started 12/14/12. ADAMTS-13 activity normal. ??? HUS (hemolytic uremic syndrome) ??? TACO (transfusion associated circulatory overload) ??? MRSA bacteremia ??? Hemorrhagic colitis CT shows sparing of the sigmoid and rectum ??? Thrombocytopenia ??? Hyperthyroidism Graves disease stable on methimazole for 10+ years. Operations/Major Procedures: None History of Presentation: (Per admission H&P) Ms. Henriquez was discharged home from [facility] on 12/27/12 following treatment for TTP-HUS, MRSA Bacteremia and bilateral DVTs. During her illness she developed DELVIS and Cr stabilized at 2.0 on discharge, up from 1.45 at admission. Over the weekend she noticed that her legs were more 'puffy' and she was gradually becoming more SOB. This was worse on exertion but was also present at rest. She endorses new orthopnea, requiring 4 pillows at night over the weekend and last night had to sleep in the chairdue to dyspnea when lying flat. Concerned, she presented to the ED at [facility] for evaluation. She was noted to be saturating at mid 90s on RA and an ECG there showed NSR and no ST changes. She was transferred to [facility] and admitted to the Hematology Service. She denies any chest pain. She gets a cough only if she takes a deep breath but has no pleuritic pain. No f/c/n/v/d. She reports that she has been anorexic these last few days and that food just doesnot look appealing to her. On admission she was clinically volume overloaded, afebrile, and saturating 91% on 3L NC. Hospital Course: Ms. Henriquez was admitted to the Heme/Onc service on 12/30/2012 and discharged on 01/05/2013. The following issues were addressed during this admission: # Acute Systolic CHF She was volume overloaded at admission with DDx of cardiac vs renal. Given stable renal function, suspected Cardiac. TTE = EF 40% with global hypokinesis and Pulmonary hypertension. There was a mild troponin leak of 0.06x2 but with no chest pain or discomfort, an unremarkable ECG and on consultation with Cardiology this was not considered to be an ACS. Acute systolic HF was thought to be secondary to diffuse microthrombi to coronary vessels s/p TTP/HUS. Medical management was deemed to be the best approach. She was started on metorprolol, ASA and low dose Lisinopril (due to compromised renal function). Lasix diuretic was begun and she diuresed well with good improvement in symptoms and stable kidney function. Diuresis was continued until creatinine peaked at her dry weight of 53.8kg. She was NOT discharged on daily po lasix but will be following weights closely w/ frequent Cr checks. # Hypoxia Ms. Henriquez needed 2-3l supplemental oxygen by nasal cannnula at night initially. It was then discovered that she desaturated on exertion (e.g ambulating) into the mid 70%s. She required supplemental oxygen to have normal oxygenation on ambulation. The etiology was considered to be multifactorial - acute systolic CHF, pleural effusions, microthrombi in lungs after TTP. Home O2 was arranged. # Abdominal Complaints: As was the case during previous admission, Ms. Henriquez had nausea, abdominal tenderness and migratory upper abdominal pain. LFT's WNL but Lipase was mildly elevated. Treated with some relief by OTC GI meds Given onset with rest of TTP, suspect microemboli to GI track a/o pancreas. Her symptoms improved during her stay. # s/p MRSA Bacteremia The patient was discharged from the prior admission on IV vancomycin following a MRSA bacteremia. She continued the IV antibiotics at home and during her re- admission. However, since her creatinine levels were variable and vancomycin trough reached a maximum of 22.3 during her stay, there was concern with continuing this regimen on discharge. She was converted to Datomycin and tolerate it well without any adverse events. She was discharged on q48h daptomycin to be continued until 01/14/13. Baseline CK=45 on starting daptomycin. # s/p Bilateral DVT On admission, she continued her enoxaparin bridge with daily 5mg warfarn and a goal of INR 2.0-3,0n. INR stalled out at 1.6-1.8, so warfarin dose was increased to 7.5mg and later 10mg QD. She came close to goal but did not achieve therapeutic levels of warfarin during her hospital stay. She was discharaged on 10 mg warfarin, with follow-up at her PCP to determine optimum warfarin dose ([facility]-drawn INR's to be faxed to PCP; PCP previously agreed to manage her anti-coagulation). Admission Labs: 12/30/2012 16:17 WBC 6.3 RBC 2.96 (L) Hemoglobin 9.1 (L) Hematocrit 26.5 (L) MCV 89.5 MCH 30.7 MCHC 34.3 RDWSD 50.5 (H) RDWCV 15.5 (H) Platelets 289 12/30/2012 16:17 Sodium 139 Potassium 3.0 (CRIT) Chloride 102 CO2 25 Anion Gap 12 BUN 11 Creatinine 2.02 (H) Estimated GFR 26 (L) Glucose Fasting 100 (H) Calcium 9.1 Discharge Lab Data: Recent Labs Basename 01/05/13 04301/04/1313401/03/13 0526 WBC 3.8* 5.5 4.9 HGB 9.6* 9.5* 8.9* PLATELET 274 238 230 Recent Labs Basename 01/05/13 0430 01/04/1313401/03/13 0526 NA 136 134* 139 K 4.2 4.2 4.0 CO2 29 28 27 CL 98 96* 101 BUN 20* 17 13 CREATININE 2.27* 2.36* 2.54* CALCIUM 9.4 9.2 9.2 MAGNESIUM -- -- -- PHOS -- -- -- ANIONGAP 9 10 11 Recent Labs Basename 01/02/13 1150 PROT 6.7 ALBUMIN 3.8 BILITOT 0.2 BILIDIR 0.1 AST 17 ALT 15 ALKPHOS 52 Recent Labs Basename 01/04/13 0135 01/01/13 0425 12/31/12 1955 TROPONINT -- 0.06* 0.06* CK 45 35 46 Recent Labs Basename 01/05/13 0430 01/04/13 0135 01/03/13 0526 LDH 198 220 208 URICACID -- -- -- Recent Labs Basename 01/05/13 0430 01/04/13 0135 01/03/13 0526 INR 1.9* 1.6* 1.8* PT 22.1* 20.0* 21.2* PTT 36* 34 -- Other Labs: Erythropoetin level 17 (range 4-24) ProBNP 01/01 66342; (12/20 2400 during previous admission) TSH 1.38; T3 89; T4 7.6, fT4 1.15; Tuptake 1.0; FTI 7.6 Tchol 143, HDL 38, Trig 118, LDL 81 Lipase 192 Lupus Anticoag: Negative Vancomycin trough (01/04/13): 20.4 PENDING: Cardiolipin Ig, Beta-2 microglobulin Ig Microbiology: None Diagnostic Studies: 01/01/13: CXR AP & Lateral Findings :There is a slightly better degree of inflation, especially of the lower lung zones. Thereis no other interval change. Again noted are the bilateral pleural effusions, which obscure the extreme lung bases. The remainder of the lungs are grossly clear. Specifically, there is no significantdegree of pulmonary edema. Impression: Slightly improved inflation and no significant pulmonary edema. Persistent bilateral pleural effusions. 01/01/13: ECG: -Normal sinus rhythm -T wave abnormality, consider lateral ischemia -Prolonged QTc 573 -Abnormal ECG When compared with ECG of 20-DEC-2012 14:21, -Non-specific change in ST segment in Anterior leads -Nonspecific T wave abnormality no longer evident in Anterior leads -Inverted T waves have replaced nonspecific T wave abnormality in Lateral leads -QT has lengthened 12/31/12: TTE SUMMARY: 1. The left ventricular chamber size is normal. Left ventricular wall thickness is normal. There isdiffuse hypokinesis present with some variation in segmental function. Global left ventricular systolic function is moderately reduced. Ejection fraction is estimated to be 40%. 2. Right ventricular chamber size, wall thickness, and systolic function are within normal limits. 3. There is no hemodynamically significant valve disease. 4. The estimated pulmonary artery systolic pressure is 52 mmHg. There is evidence that pulmonary hypertension may be underestimated. 12/30/12 CXR PA & Lateral: Findings : The previously seen right IJ catheter and PICC catheter have been removed and there is anew left-sided PICC catheter terminating in the SVC. There is no other interval change, allowing for the more upright positioning. Again seen are bilateral pleural effusions and bibasilar opacities most likely due to a combination of atelectasis and mild pulmonary edema. The mid and upper lungzonesremain clear. Impression: No significant interval change. Persistent pleural effusions and bibasilar atelectasis and pulmonary edema. Interval changes of central lines. Discharge Conditions/Prognosis: Upon discharge the pt is hemodynamically stable, requiring supplemental oxygen, and afebrile. Vital Signs on Day of Discharge: Last value Range last 24 hrs Temperature Temp: 36.4 ??C (97.5 ??F) Temp: [36.4 ??C (97.5 ??F)-37 ??C (98.6 ??F)] Heart Rate Heart Rate: 69 Heart Rate: [67-70] Blood Pressure BP: 112/55 mmHg BP: (107-121)/(55-87) Respiratory Rate Resp: 20 Resp: [18-20] SpO2 SpO2: 97 % SpO2: [97 %-100 %] Discharge to: Home w/ [facility] Discharge Medications: Current Discharge Medication List New Meds Dose Details acetaminophen (TYLENOL) 500 mg tablet 1,000 mg Take 2 tablets by mouth every 6 hours as needed for Pain or Fever. Qty: 30 tablet alum-mag hydroxide-simeth (MAALOX) 200-200-20 mg/5 mL suspension 10 mLs Take 10 mLs by mouth 3 times daily as needed. Qty: 355 mL aspirin 81 mg chewable tablet 81 mg Take 81 mg by mouth daily. Qty: 30 tablet calcium carbonate (TUMS) 200 mg calcium (500 mg) chewable tablet 500-1,000 mg Take 1-2 tablets by mouth every 4 hours as needed for Heartburn. famotidine (PEPCID) 20 mg tablet 20 mg Take 1 tablet by mouth 2 times daily as needed (GI upset, pain). Qty: 30 tablet lisinopril (PRINIVIL;ZESTRIL) 2.5 mg tablet 2.5 mg Take 1 tablet by mouth daily. Qty: 30 tablet Refills: 12 LORazepam (ATIVAN) 0.5 mg tablet 0.5 mg Take 1 tablet by mouth every 6 hours as needed. Qty: 30 tablet Refills: 0 metoprolol succinate (TOPROL-XL) 100 mg XL tablet 100 mg Take 1 tablet by mouth daily. Qty: 30 tablet Refills: 12 Continued medications with revised dosing Dose Details !! ondansetron (ZOFRAN) 4 mg tablet 4 mg Take 1 tablet by mouth 3 times daily (before meals). Qty: 90 tablet Refills: 3 warfarin (COUMADIN) 5 mg tablet 10 mg Take 2 tablets by mouth daily. Qty: 60 tablet Refills: 0 !! ondansetron (ZOFRAN) 8 mg tablet 8 mg Take 1 tablet by mouth 3 times daily (before meals). Try 1/2 tablet first. If ineffective, use whole tablet Qty: 90 tablet Refills: 3 !! - Potential duplicate medications found. Please discuss with provider. Continued medications, unchanged Dose Details promethazine (PHENERGAN) 25 mg suppository 12.[address] 0.5 suppositories rectally every 6 hours as needed for Nausea. Ok to use 1 whole suppository if 1/2 does not work. Qty: 5 suppository Refills: 0 ondansetron (ZOFRAN-ODT) 4 mg oral disintegrating tablet 4 mg Take 1 tablet by mouth every 8 hours as needed for Nausea. Qty: 5 tablet Refills: 0 omeprazole (PRILOSEC) 40 mg capsule 40 mg Take 1 capsule by mouth daily. Qty: 30 capsule Refills: 11 enoxaparin (LOVENOX) 80 mg/0.8 mL injection 80 mg Inject 0.8 mLs subcutaneously daily for 12 days. Qty: 9.6 mL Refills: 0 Spjhlwdixbr-Ukkkxqnqa-Hao C-Mn 500-400 mg Cap CALCIUM ORAL Medications STOPPED Dose Revere-3 Fatty Acids-Vitamin E (OMEGA-3 FISH OIL) 1,000-5 mg-unit Cap prochlorperazine (COMPAZINE) 10 mg tablet 10 mg Updated Allergies/ADRs: Allergies Allergen Reactions ??? Erythromycin Base Instructions & Follow-up: Provider Instructions Instruction after leaving the hospital Why you were hospitalized: hypoxia (low oxygen levels), heart failure (volume overload)- felt due to TTP Call your doctor or seek medical attention if you develop the following (or have any new/worsening symptoms) specifically: -progressive belly pain, nausea/vomiting, inability to hold down liquids -increasing leg swelling -weight gain: > 1kg (2 lb) from baseline -worsening breathing problems -reduced urine output -confusion or other neurologic changes Activity level: As tolerated Diet: 2g sodium & 1.5 L fluids per day Driving: Not right now Shower/Bath: Keep PICC line dry per prior instructions Home Oxygen therapy: NEW[facility] PROVIDED by [facility] (as needed, 2L at rest, up to 5L with activity) Specific instructions related to your condition: #Weighing yourself - yourself every day (record #'s), at the same time of day, wearing the same clothes (or lack of clothes) -compare weights to your discharge DRY Weight- 58.3 by our scales (use your first weight at home as baseline) -if you gain >1kg (2 lb) in a day, please call your PCP -if your absolute weight is up by 3kg (6 lb) at any point, call your doctor # Continue warfarin, now at 10mg/day #Take new meds lisinopril, aspirin, Toprol as directed; take zofran before each meal # Follow-up per below appt's 01/[address] [facility] Heme/Onc (Heather) 01/10 11am PCP's office (Giovanni) they may change this 01/13 3:30pm [facility] Nephrology (Mora) 01/14 10am [facility] Endo (Gardenia Kebede) Your Inpatient Doctors at [facility]: Attendings: Luci Soto Residents: Dr. Ruiz Dr. Bañuelos General Instructions Anticoagulation (???Blood Thinner?? ) Management upon Discharge: Reason for anticoagulation therapy: DVT's in setting of HUS-TTP Your NEW Warfarin (Coumadin??) dosing instruction upon discharge is: Take same dosing 10mg each night until told otherwise Follow up INR is scheduled on: Sunday/ by [facility] LAST FEW INR's/dosin/24 01/02 01/03 01/04 01/05 INR 1.8 1.8 1.8 1.6 1.9 warf 5 5 7.5 10 - INR Goal: 2-3 Expected duration of treatment: TBD by Dr Fontana Provider/Team responsible for ongoing outpatient anticoagulation management: PCP If you have not received a call from your provider within 24hrs of having your INR drawn, please call your outpatient provider for further dose instructions. Warfarin (Coumadin??) should be taken at the same time every day, preferably after 5pm. If taking Enoxaparin (Lovenox??) injections, continue taking until instructed to stop. (You will betaking this medication until your INR is in the therapeutic range for 24 hours.) The following table shows your most recent INR results and Warfarin (Coumadin??) Doses Please review your Warfarin (Coumadin??) Pack upon discharge. For your safety, it is very important to be aware of the following details related to taking ???blood thinning?? medications such as Coumadin. Compliance: Take your medication exactly as directed. Missing a dose or taking more than you are scheduled to take could result in clotting or bleeding issues. Signs and Symptoms to be reported include: increased pain, swelling or sudden shortness of breath severe headaches dizziness unusual bleeding or bruising changes in urine or bowel movement color coughing or spitting up of blood, or nosebleeds In the event that you should experience any of the above, seek medical attention. CARDIOLOGY CONSULT NOTE A/P 52 y/o F with recent admit to [facility] for TTP-HUS c/b MRSA bacteremia presents with fluid overload, and an echo yesterday demonstrating EF of 40 with global hypokinesis. The severity of this heart failure on presentation was NYHA III, AHA/ACC stage C. With excellent diuresis done by the primary team, her weight is coming back to baseline, and functionally she is now NYHA II. Given her mild JVD and functional decrease, there is still room to diurese, as she is perfusing well (wet/warm). In regards to the etiology of the heart failure, it seems to correlate chronologically well with her onset of TTP-HUS. Not only can this disease lead to microthombi in the periphery, it can also cause microthrombi in the coronary circulation diffusely, without causing ischemia or symptomatology thereof. This cause of heart failure is usually reversible, and should be followed as an outpatient. The EKG this morning did indeed show new TWI in lateral leads, as well as QTc prolongation as compared to previous. Regarding the TWI, this was not accompanied by any chest pain or anginal equivalent. At this time, it is hypothesized to be from a somewhat uneven distribution of the aforementioned di sseminated microthrombi in the LCx territory. It is not necessary to act upon this new finding at this time, but should be kept in mind moving forward as the heart failure is managed. Interestingly, the QTc prolongation may be a transient representation of a Takotsubo-type cardiomyopathy, reported 2/2 the disseminated microthrombi itself. This usually resolves on its own in 24-48 hours. The positive troponins likely represent a troponin leak from the fluid overload itself. This hypothesis is backed by a) steady troponin levels and b) negative CK. Recommendations: # Acute Systolic Heart Failure, last EF of 40% - Light diuresis, as patient is approaching baseline weight. Can give a couple more doses of Lasix IV depending on fluid status, then switch to Lasix po prior to discharge once fluid status normalizes. Follow up BMP in a week. - Aspirin - Beta- kirstie (already on board) - ANTONIO inhibitor. Because amlodipine and ACEi's have a similar mechanism of hypertension control, itis suggested that amlodipine be switched to an ACEi for both the HF as well as afterload reduction benefits. In view of the creatinine, I would begin with very low dose, perhaps lisinopril 2.5mg, andmonitor K+ and Cr. - The patient's lipid profile was well within normal limits. Because this presentation does not likely represent ACS, the patient does not require a statin at this time - Follow up with cardiology in 2 weeks after discharge. - Follow-up echo in a month. If the EF is not improved or a regional WMA presents itself at that time, I would consider a nuclear stress test. #Troponinemia - I would stop trending the cardiac enzymes, unless the patient complains of chest pain or some other anginal equivalent. == TTE 12/31/12 SUMMARY: 1. The left ventricular chamber size is normal. Left ventricular wall thickness is normal. There isdiffuse hypokinesis present with some variation in segmental function. Global left ventricular systolic function is moderately reduced. Ejection fraction is estimated to be 40%. 2. Right ventricular chamber size, wall thickness, and systolic function are within normal limits. 3. There is no hemodynamically significant valve disease. 4. The estimated pulmonary artery systolic pressure is 52 mmHg. There is evidence that pulmonary hypertension may be underestimated. 5. See remainder of report for additional findings. FINDINGS: Left Ventricle: The left ventricular chamber size is normal. Left ventricular wall thickness is normal. Global left ventricular systolic function is moderately reduced. Ejection fraction is estimatedto be 40%. There is diffuse hypokinesis present. The basal anteroseptal, basal anterior, basal anter olateral, basal inferolateral, basal inferior, basal inferoseptal, mid anteroseptal, mid anterior, mid anterolateral, mid inferolateral, mid inferior, mid inferoseptal, apical septal, apical anterior, apical lateral and apical inferior wall segments are hypokinetic. Left Atrium:The left atrium is normal in size. Right Ventricle: Right ventricular chamber size, wall thickness, and systolic function are within normal limits. There is evidence that pulmonary hypertension may be underestimated. The estimated pulmonary artery systolic pressure is 52 mmHg. The estimated right atrial pressure is 8 mmHg. Right Atrium: The right atrium is normal in size. Aortic Valve: The aortic valve is trileaflet. The leaflets are thin with normal excursion. There isno aortic stenosis or regurgitation present. Mitral Valve: The mitral valve appears normal in structure and function. There is evidence of ruptured chordae. There is mild (1+/4+) mitral regurgitation present. Tricuspid Valve: The tricuspid valve appears normal in structure and function. There is mild (1+/4+) tricuspid regurgitation present. Pulmonic Valve: The pulmonic valve is not well visualized. There is trace pulmonic regurgitation present. Pericardium :A trivial pericardial effusion is visualized. Bilateral pleural effusions are present. Aorta: The aortic root is normal in size. The ascending aorta is normal in size. Pulmonary Artery: The main pulmonary artery appears normal. Venous: The inferior vena cava appears dilated. There is a greater than 50% respiratory change in the inferior vena cava dimension. Misc:Two-dimensional echo, spectral Doppler and color Doppler performed. Discharge References/Attachments None Your To Do List Future Appointments: Provider: Department: Dept Phone: Center: 01/08/2013 11:00 AM Fabi Romero MD Hematology/Oncology [phone] [facility] 01/13/2013 3:30 PM Brian Velazco MD Nephrology [phone] [facility] 01/14/2013 10:05 AM Minor Kebede MD Endocrinology [phone] [facility] 01/14/2013 10:30 AM Clovis Varner MD Endocrinology [phone] [facility] Future Orders Please Complete By Expires OPAT: Order / Recommendation for Post Discharge IV Antibiotic Management [[id number] CPT(R)] Process Instructions: If no progress note charted, please enter Clinical details in comments. Scheduling Instructions: Comments: Please Fax all results to: OPAT Program Infectious Disease Section [facility], [place] [address] FAX: Line care instructions per [facility] OPAT Program protocol. After hours, please contact the Infectious Disease Physician dye automation operator at . If this order was signed greater than 72 hours prior to [facility] discharge, please call to confirm the accuracy of this order. Questions: Responses: Microorganisms being treated: MRSA Antibiotic Allergies: see HPI Antibiotic (one line for each ABx): daptomycin 6mg/kg; dosing q48 (first dose saturday 01/06) Start date: 01/04/2013 Anticipated stop date: 01/14/2013 Labs: Other: see Additional Labs Comment - cpk Last documented height (cm): 170 cm (5' 6.93) Last documented weight (kg): 56.7 kg (125 lb) Responsible Attending: Tyson Patel MD ID Diagnosis: MRSA bacteremia, line infection Referral for Outpatient Antibiotics [[id number] CPT(R)] Process Instructions: Scheduling Instructions: Comments: Questions: Responses: Patient location post discharge Home Start date 01/03/2013 Responsible MD post discharge contact info Out patient antibiotic team (OPAT Vendor / contact information [facility] requested IV abx Referral to Home Health [[id number] CPT(R)] Process Instructions: Scheduling Instructions: Comments: DOCUMENTATION FOR VNA SERVICES (INCLUDING THOSE PATIENTS WITH MEDICARE COVERAGE REQUIRING HOME VNA SERVICES AND/OR HOSPICE SERVICES) This is preliminary information related to the patient's needs and confirmation of Face to Face Encounter. The denoted information will require completion and an electronic signature by the physicianupon finalization of these orders. PATIENT'S LOCATION: Address: [address] [place] [id number] Tel. #: [phone] (home) Environmental Department Manager's Name: In discussion with the attending physician, it is certified that this patient is under their care and that they, or a nurse practitioner, clinical nurse specialist or physician's contact center assistant who is working directly with them, had a face to face encounter that meets the physician face to face encounter requirements with this patient on 01/03/2013 The encounter with the patient was in whole, or in part, for the following medical condition, whichis the primary reason for home health care services:MRSA bacteremia In discussion with the provider, it is certified that, based on their findings, the following services are medically necessary for home health services. SERVICES REQUESTED: RN (X) To provide the following care/treatments with the clinical findings supporting the need for services as follows: HOME CARE ORDERS: RN - to assess CP/GI//nutrition/hydration/elimination. Check vital signs, pulse ox Q visit. Monitor medication management and effectiveness. Teach medication regimen, effects and side-effects, signs and symptoms to report to MD. Assist with home IV antibiotic therapy. Labs: Every Sunday: INR, CBC, CMP, CK Every : INR Please send CMP to [facility], Attn: Dr. Velazco Please send CBC, CMP & INR to [place], [place] Attn: Andrea Mobley/Giovanni Please send CBC, CMP, CK to [facility] Infectious Disease- OPAT Program, FAX: START OF CARE DATE: 01/04/13 All VNA agencies which cover the area of patient's residence have been reviewed, either verbally tanvir writing, and patient/family have chosen the home health care agency as follows for home services: HOME HEALTH CARE AGENCY: [facility] PHONE: [phone] FAX: [phone] VENDOR: [employer] [facility] Address [address] [place] [id number] Equipment ordered: IV antibiotic supplies Ordering Provider: Dipak Verma (attending) Ordering Provider Phone #: [phone] [place] [address] Questions: Responses: Agency name and contact information [facility] Patient location post discharge Home What services are requested Start date 01/04/2013 Responsible MD post discharge contact info OPAT HOME OXYGEN [[id number] Custom] Process Instructions: Check with vendor to see if additional forms need to be completed. If patient is Medicare or Medicaid, you must submit official results of Pulse Oximetry at Rest and with Exercise that are less than 180 days old. Scheduling Instructions: Comments: Room air sat at rest 94% Room air sat with exercise 87% 3 liters per minute nasal canula with recovery to 94% Questions: Responses: Rate (LPM) 3 Route Nasal Portable needed: Date of last O2 sat% (Resting) 01/02/2013 Result(%) 94 Date of last O2 Sat (Exercise) 01/02/2013 Result(%) 87 Vendor Name/Contact information: [facility] Provider Contact Information: BAKARI COSTELLO APRN JOSE [address] [place] [address] / [facility] [id number] Signed: FLYNN RUIZ MD Discharged: 01/05/2013 * Plan of Care - Radha Burgos RN - 01/05/2013 6:37 AM EDT Problem: Pain, Acute (Adult, Obstetric) Goal: Acute Pain: Acceptable Pain Control/Comfort Level - Pain, Acute (Adult, Obstetric) Outcome: Present (see interventions, notes) Patient C/O upper abdominal discomfort once; tender with palpation; positive bowel sounds; receivedprn Tylenol 1000 mg PO x 1 with good effect. Also C/O nausea x 2 occasions; received prn ativan x 1and prn Zofran x 1; with good effect. Problem: Trauma/Injury Risk (Adult, Obstetric) Goal: Trauma/Injury Risk: Absence of Trauma/Injury/Falls Outcome: Present (see interventions, notes) Remains at risk to fall during hospitalization; fall precautions observed. @ bedside this shift and is very supportive of pt's needs. Steady gait noted when ambulating in room; up to bedside commode independently. Ambulated around and out of the unit with 6 L/min of oxygen accompanied . Calls appropriately as needed. Will continue to monitor. Problem: Skin Integrity Impairment, Risk/Actual (Adult, Obstetric) Goal: Skin Integrity Impairment, Risk/Actual: Skin Integrity/Wound Healing Outcome: Absent and monitoring Ecchymosis noted on abdomen from Lovenox injections, otherwise skin and oral mucosa are intact. Repositions independently. Left PICC line site unremarkable. Will continue to monitor. Problem: Respiratory Insufficiency (Adult, Obstetric) Goal: Respiratory Insufficiency: Effective Respiration Outcome: Present (see interventions, notes) Lungs clear to auscultation. SpO2 > 95% on 2Lpm supplemental O2 @ rest; verbalized dyspnea with exertion; ambulates with 6 L/min O2 via NC when ambulating around the unit; pt reported SaO2 dropping to 80's during ambulation and recovering when she stops to rest. On 2L/ 24 hr fluid restriction. Will continue to monitor. Comments: Current PT/INR= 22.1/ 1.9, crea= 2.27. * Plan of Care - Bhumi Duenas RN - 01/04/2013 4:41 PM EDT Problem: Pain, Acute (Adult, Obstetric) Goal: Acute Pain: Acceptable Pain Control/Comfort Level - Pain, Acute (Adult, Obstetric) Outcome: Present (see interventions, notes) Pt cont with c/o epigastric pain, centrally located, that feels like a soreness; discomfort increases with activity/movement as well as palpation and decreases with rest. Pt declines medication for pain reporting that the soreness resolves without medication. Cont to monitor. Problem: Trauma/Injury Risk (Adult, Obstetric) Goal: Trauma/Injury Risk: Absence of Trauma/Injury/Falls Outcome: Present (see interventions, notes) ARTF score = 6. Fall reduction program maintained. Pt is alert, oriented, appropriate. Denies dizziness/lightheadedness. Pt's is present at pt's bedside throughout shift, and he is helpful toher. Pt amb in patino with several times and uses rolling O2 cart for support. Gait is noted to be steady. Pt's SpO2 level does decrease during ambulation when using only 3 lpm (attempted increase to 4 lpm but still had desat to 80s; advised pt to increase O2 to 6 lpm during walks. Pt up to bedside commode indep. Call tobias in reach, calls appropriately for assistance as needed. Cont to monitor. Problem: Skin Integrity Impairment, Risk/Actual (Adult, Obstetric) Goal: Skin Integrity Impairment, Risk/Actual: Skin Integrity/Wound Healing Outcome: Present (see interventions, notes) Say score = 21. No evidence of pressure areas or skin breakdown. Pt has ecchymoses on abdomen d/t Lovenox injections. Skin intact. Oral mucosa intact. L single lumen PICC dressing is CDI; site is unremarkable, flushes well and has brisk blood return. Turns/rpositions indep. Cont to monitor. Problem: Respiratory Insufficiency (Adult, Obstetric) Goal: Respiratory Insufficiency: Effective Respiration Outcome: Present (see interventions, notes) Pt remains on supplemental oxygen via nasal cannula at 2 lpm at rest with good SpO2 in upper 90s to100. Pt does desaturate with ambulation to 80s when O2 at 4 lpm, and pt reports dyspnea on exertion. Advised pt to increase O2 to 6 lpm when amb; pt verbalizes understanding. LS are clear but diminished in bases. Pt cont on 2 liter fluid restriction per 24 hour period (7 am to 7 am). Vancomycin d/c'd this shift d/t increased vanco trough and increased creatinine level. Daptomycin ordered and one dose administered. Dose frequency and strength may need to be adjusted; this will be evaluated tomorrow morning after new creatinine level obtained. Cont to monitor. COMMENTS: Cardiology and infectious disease services following pt's care. * Plan of Care - Radha Burgos RN - 01/04/2013 4:54 AM EDT Problem: Pain, Acute (Adult, Obstetric) Goal: Acute Pain: Acceptable Pain Control/Comfort Level - Pain, Acute (Adult, Obstetric) Outcome: Present (see interventions, notes) Patient C/O mid upper abdominal discomfort once; tender with palpation; positive bowel sounds; refused medication; resolved on its own. Will continue to monitor. Problem: Trauma/Injury Risk (Adult, Obstetric) Goal: Trauma/Injury Risk: Absence of Trauma/Injury/Falls Outcome: Present (see interventions, notes) Remains at risk to fall during hospitalization; fall precautions observed. @ bedside this shift. Steady gait noted when ambulating in room; up to bedside commode independently. Ambulated around unit with oxygen tank with . Calls appropriately as needed. Will continue to monitor. Problem: Skin Integrity Impairment, Risk/Actual (Adult, Obstetric) Goal: Skin Integrity Impairment, Risk/Actual: Skin Integrity/Wound Healing Outcome: Present (see interventions, notes) Ecchymosis noted on abdomen from Lovenox injections, otherwise skin and oral mucosa are intact. Repositions independently. Left PICC line site unremarkable. Will continue to monitor. Problem: Respiratory Insufficiency (Adult, Obstetric) Goal: Respiratory Insufficiency: Effective Respiration Outcome: Present (see interventions, notes) Lungs clear to auscultation. SpO2 > 95% on 2Lpm supplemental O2 @ rest; verbalized dyspnea with exertion; ambulates with 6 L/min O2 via NC when ambulating around the unit. On 2L/ 24 hr fluid restriction. Will continue to monitor. Comments: Vanco trough= 20.4, PT/INR= 20/ 1.6, crea= 2.3. Cardiology and ID following. * Plan of Care - Brittany Burt RN - 01/03/2013 5:45 PM EDT Problem: Pain, Acute (Adult, Obstetric) Goal: Acute Pain: Acceptable Pain Control/Comfort Level - Pain, Acute (Adult, Obstetric) Outcome: Absent and monitoring Patient denied pain this shift. Problem: Trauma/Injury Risk (Adult, Obstetric) Goal: Trauma/Injury Risk: Absence of Trauma/Injury/Falls Outcome: Present (see interventions, notes) Remains at risk to fall during hospitalization; fall reduction measures in place. @ bedsidethis shift. Steady gait noted when ambulating in room; up to bedside commode independently. Ambulated around unit with oxygen tank with . Calls appropriately as needed. Problem: Skin Integrity Impairment, Risk/Actual (Adult, Obstetric) Goal: Skin Integrity Impairment, Risk/Actual: Skin Integrity/Wound Healing Ecchymosis noted on abdomen from Lovenox injections, otherwise skin is intact. Repositions independently. Problem: Respiratory Insufficiency (Adult, Obstetric) Goal: Respiratory Insufficiency: Effective Respiration SpO2 > 93% on 2Lpm supplemental O2 @ rest; desaturates to mid-80's with ambulation, but quickly recovers; increases to 3Lpm when up in room. Comments: Patient unable to be discharged today due to elevated creatinine and vanc level. Trough ordered to be drawn tomorrow AM. Possible discharge tomorrow (01/04) if creatinine and vanc level improves, if able to arrange appropriate IV antibiotics, etc. Started on Toprol XL 100 mg this afternoon, q6h metoprolol dc'd. Coumadin increased. Zofran and pepcid given to patient prior to dinner for mild nausea.2L fluid restriction. Lasix dc'd. Adequate UO this shift. * Plan of Care - Odalis Chung RN - 01/02/2013 9:50 PM EDT Problem: Pain, Acute (Adult, Obstetric) Goal: Acute Pain: Acceptable Pain Control/Comfort Level - Pain, Acute (Adult, Obstetric) Outcome: Present (see interventions, notes) Patient denied any pain overnight. Problem: Trauma/Injury Risk (Adult, Obstetric) Goal: Trauma/Injury Risk: Absence of Trauma/Injury/Falls Outcome: Present (see interventions, notes) Remains at risk to fall during hospitalization; fall reduction measures in place. @ bedsidethis shift. Steady gait noted when ambulating in room; up to bedside commode independently. Problem: Skin Integrity Impairment, Risk/Actual (Adult, Obstetric) Goal: Skin Integrity Impairment, Risk/Actual: Skin Integrity/Wound Healing Outcome: Absent and monitoring Ecchymosis noted on abdomen from Lovenox injections, otherwise skin is intact Problem: Respiratory Insufficiency (Adult, Obstetric) Goal: Respiratory Insufficiency: Effective Respiration Lungs clear to auscultation, but diminished in bases bilaterally; SpO2 > 93% on 2Lpm supplemental O2 @ rest; desaturates to mid-80's with ambulation, but quickly recovers; chest x-ray obtained 01/01/13 - revealed bilateral pleural effusions, but no pulmonary edema (in fact, lung inflation has improved over previous x-rays per report); VQ scan performed 01/01/13 to determine if respiratory compromise is being caused by pulmonary embolism or micro-clots in lungs - report inconclusive, results may possibly be skewed by bilateral pleural effusions. Comments: Due to be discharged home 01/03/13. Patient will receive home Oxygen. Per patient, will need prescriptions filled in [place] and sent down here before d/c. Oncoming RN aware. Vancomycin level high on 01/02/13, will need dose adjustment. Patient c/o nausea, Zofran & Maalox given per pt request with relief. * Plan of Care - Cristal Gallagher RN - 01/02/2013 6:47 PM EDT Problem: Pain, Acute (Adult, Obstetric) Goal: Acute Pain: Acceptable Pain Control/Comfort Level - Pain, Acute (Adult, Obstetric) Outcome: Present (see interventions, notes) Received 1,000 mg Tylenol PO x1 for report of 5/10 occipital headache; described as constant achingpressure, which did not radiate per patient; pain 0/10 within 60 mins of administration Problem: Trauma/Injury Risk (Adult, Obstetric) Goal: Trauma/Injury Risk: Absence of Trauma/Injury/Falls Outcome: Present (see interventions, notes) Remains at risk to fall during hospitalization; fall reduction measures in place - call tobias withinreach at all times, nonskid footwear when OOB, lighting adjusted for safety, room environment modified to reduce clutter; steady gait noted when ambulating in room; up to bedside commode independently; ambulated 2 laps around unit with RN - SpO2 continues to drop into mid-low 80's with even slightest amount of movement; RA sat obtained at rest and with ambulation so patient can qualify for home O2 Problem: Skin Integrity Impairment, Risk/Actual (Adult, Obstetric) Goal: Skin Integrity Impairment, Risk/Actual: Skin Integrity/Wound Healing Outcome: Absent and monitoring Ecchymosis noted on abdomen from Lovenox injections, otherwise skin is intact Dressing covering left single lumen PICC remains clean, dry and intact; no s/s of infection, infiltration or extravasation noted on exam; lumen flushes easily and provides brisk blood return Problem: Respiratory Insufficiency (Adult, Obstetric) Goal: Respiratory Insufficiency: Effective Respiration Lungs clear to auscultation, but diminished in bases bilaterally; SpO2 91-99% on 2Lpm supplemental O2; desaturates to mid-80's with ambulation, but quickly recovers; RR 18-20; received 40mg lasix PO x2 (once this morning and once this evening) per treatment team with fair diuresis noted; chest x-ray obtained 01/01/13 - revealed bilateral pleural effusions, but no pulmonary edema (in fact, lung inflation has improved over previous x-rays per report); VQ scan performed 01/01/13 to determine if respiratory compromise is being caused by pulmonary embolism or micro-clots in lungs - report inconclusive, results may possibly be skewed by bilateral pleural effusions RA sat at rest and with ambulation obtained - pt qualifies for home O2 - orders placed by TARIK Canchola Comments: Vancomycin trough drawn immediately prior to 4th dose per order - see e-DH for results Due to be discharged home tomorrow * Plan of Care - Odalis Chung RN - 01/01/2013 9:14 PM EDT Problem: Pain, Acute (Adult, Obstetric) Goal: Acute Pain: Acceptable Pain Control/Comfort Level - Pain, Acute (Adult, Obstetric) Outcome: Absent and monitoring Patient denied any pain overnight. Problem: Trauma/Injury Risk (Adult, Obstetric) Goal: Trauma/Injury Risk: Absence of Trauma/Injury/Falls Outcome: Present (see interventions, notes) Remains at risk to fall during hospitalization; fall reduction measures in place. Steady gait notedwhen ambulating in room; up to bedside commode independently overnight. Patient calling nursing staff appropriately prn. Problem: Skin Integrity Impairment, Risk/Actual (Adult, Obstetric) Goal: Skin Integrity Impairment, Risk/Actual: Skin Integrity/Wound Healing Outcome: Present (see interventions, notes) Ecchymosis noted on abdomen from Lovenox injections, otherwise skin is intact. Problem: Respiratory Insufficiency (Adult, Obstetric) Goal: Respiratory Insufficiency: Effective Respiration Outcome: Present (see interventions, notes) Lungs clear to auscultation in all lobes bilaterally; SpO2 93-99% on 2Lpm supplemental O2. Chest x-ray obtained 01/01 - revealed bilateral pleural effusions. * Plan of Care - Cristal Gallagher RN - 01/01/2013 5:53 PM EDT Problem: Pain, Acute (Adult, Obstetric) Goal: Acute Pain: Acceptable Pain Control/Comfort Level - Pain, Acute (Adult, Obstetric) Outcome: Absent and monitoring Denied pain on exam and throughout remainder of shift Problem: Trauma/Injury Risk (Adult, Obstetric) Goal: Trauma/Injury Risk: Absence of Trauma/Injury/Falls Outcome: Present (see interventions, notes) Remains at risk to fall during hospitalization; fall reduction measures in place - call tobias withinreach at all times, nonskid footwear when OOB, lighting adjusted for safety, room environment modified to reduce clutter; steady gait noted when ambulating in room; up to bedside commode independently; ambulated 2 laps around unit with RN - SpO2 91-94% with 1st lap, SpO2 fell to 79% during 2nd lap (despite 6 Lpm supplemental O2), pt also reported dizziness during 2nd lap as well Problem: Skin Integrity Impairment, Risk/Actual (Adult, Obstetric) Goal: Skin Integrity Impairment, Risk/Actual: Skin Integrity/Wound Healing Outcome: Present (see interventions, notes) Ecchymosis noted on abdomen from Lovenox injections, otherwise skin is intact Dressing covering left single lumen PICC remains clean, dry and intact; no s/s of infection, infiltration or extravasation noted on exam; lumen flushes easily and provides brisk blood return Problem: Respiratory Insufficiency (Adult, Obstetric) Goal: Respiratory Insufficiency: Effective Respiration Outcome: Present (see interventions, notes) Lungs clear to auscultation in all lobes bilaterally; SpO2 91-99% on 2Lpm supplemental O2; desaturates to mid-80's with ambulation, but quickly recovers; RR 18-20; received 40mg lasix PO x2 (once this morning and once this evening) per treatment team with fair diuresis noted; chest x-ray obtained -revealed bilateral pleural effusions, but no pulmonary edema (in fact, lung inflation has improved over previous x-rays per report); taken to nuclear medicine for VQ scan to determine if respiratory compromise is being caused by pulmonary embolism or micro-clots in lungs Comments: Cardiology consult completed; BP medications adjusted - Metoprolol increased from 12.5mg PO q6hrs to 25mg PO q6hrs; amlodipine d/c'd; lisinopril 2.5mg PO daily ordered (1st dose to be given 01/02/13);aspirin 81mg PO daily ordered (1st dose to be given 01/02/13); 12 lead EKG obtained per treatment team - see e-DH for results * Consult Note - Dony Blackwood MD - 01/01/2013 9:09 AM EDT Inpatient Cardiology Consult Note Date of Consultation: 01/01/2013 Admit Date: 12/30/2012 Place of Service: [facility] Responsible Attending: Dr. Blackwood Hospital Day 2 days Reason for Consult: We are seeing Anum Henriquez at the request of for the evaluation of low EF on echo during this admission. I have reviewed the available records, interviewed and examined the patient. Active Problems: # Volume overload with low EF # recent MRSA bacteremia # hx of b/l DVT HPI: Anum Henriquez is a 52 y.o. female with a past medical history significant for TTP-HUS, MRSA bacteremia who present to [facility] after experiencing SOB, orthopnea at home after discharge from [facility] on 12/27. Regarding her breathing status, she states that she experienced increasing nocturnal orthopnea onlya couple of days prior to her last admission, sleeping on more pillows than her usual. At that time, she remained free of GUEVARA during the day. She was admitted recently with bloody diarrhea 2/2 TTP-HUS, and subsequently received plasmapheresis. On discharge, she states that this nocturnal orthopnea never dissipated, and that her diurnal GUEVARA came about and increased after discharge, leading to her seeking medical attention at [facility], and was transferred here. She denies ever having chest pain, palpitations, syncope, dizziness. Her baseline weight is stated to be around 133, her peak during her last admit was 171. She is currently approaching her baseline weight Family history significant for early coronary artery disease in father and brother. No past medical history on file. No past surgical history on file. Allergies Allergen Reactions ??? Erythromycin Base Out-Patient Medications: Prescriptions prior to admission Medication Sig Dispense Refill ??? ondansetron (ZOFRAN) 8 mg tablet Take 1 tablet by mouth every 8 hours as needed for Nausea. Try1/2 tablet first. If ineffective, use whole tablet 20 tablet 0 ??? promethazine (PHENERGAN) [address] 0.5 suppositories rectally every 6 hours as needed for Nausea. Ok to use 1 whole suppository if 1/2 does not work. 5 suppository 0 ??? ondansetron (ZOFRAN-ODT) 4 mg oral disintegrating tablet Take 1 tablet by mouth every 8 hours as needed for Nausea. 5 tablet 0 ??? omeprazole (PRILOSEC) 40 mg capsule Take 1 capsule by mouth daily. 30 capsule 11 ??? warfarin (COUMADIN) 5 mg tablet Take 1 tablet by mouth daily for 7 days. 7 tablet 0 ??? enoxaparin (LOVENOX) 80 mg/0.8 mL injection Inject 0.8 mLs subcutaneously daily for 12 days. 9.6 mL 0 ??? warfarin (COUMADIN) 5 mg tablet Take 1 tablet by mouth daily. 15 tablet 0 ??? Bbmqgxdzodk-Iemzseeem-Diy C-Mn 500-400 mg Cap ??? Revere-3 Fatty Acids-Vitamin E (OMEGA-3 FISH OIL) 1,000-5 mg-unit Cap ??? CALCIUM ORAL ??? prochlorperazine (COMPAZINE) 10 mg tablet Take 1 tablet by mouth every 6 hours as needed for Nausea (Nausea/Vomiting) for 7 days. 15 tablet 2 In-Patient Medications: ??? potassium chloride 60 mEq Oral Once ??? furosemide 40 mg Oral Daily ??? metoprolol 25 mg Oral Q6H KATIE ??? warfarin 5 mg Oral Once ??? DISCONTD: atorvastatin 80 mg Oral QPM ??? amlodipine 5 mg Oral Daily ??? warfarin 5 mg Oral Once ??? labetalol 5 mg Intravenous Once ??? DISCONTD: labetalol 5 mg Intravenous Once ??? DISCONTD: metoprolol 12.5 mg Oral Q6H KATIE ??? enoxaparin 80 mg Subcutaneous Daily ??? sodium chloride 0.9 % 5 mL Intravenous Q12H ??? warfarin (COUMADIN) daily order reminder Oral Q24H ??? vancomycin 750 mg Intravenous Q24H ??? esomeprazole 40 mg Oral Daily Family History: No family history on file. Social History: History Social History ??? Marital Status: Spouse Name: N/A Number of Children: N/A ??? Years of Education: N/A Occupational History ??? Not on file. Social History Main Topics ??? Smoking status: Former Smoker -- 0.5 packs/day for 5 years Types: Cigarettes Quit date: 06/15/1978 ??? Smokeless tobacco: Never Used ??? Alcohol Use: Yes socially: one glass of wine per month ??? Drug Use: No ??? Sexually Active: Other Topics Concern ??? Not on file Social History Narrative ??? No narrative on file Review of Systems: General ROS: negative Respiratory ROS: positive for - cough Cardiovascular ROS: positive for - dyspnea on exertion and orthopnea Extremities ROS: Negative for edema Physical Exam: Intake/Output Summary (Last 24 hours) at 01/01/13 1425 Last data filed at 01/01/13 1345 Gross per 24 hour Intake 1014 ml Output 3575 ml Net -2561 ml Last value Range last 8 hrs Temperature Temp: 36.5 ??C (97.7 ??F) Temp: [36.4 ??C (97.5 ??F)-36.5 ??C (97.7 ??F)] Heart Rate Heart Rate: 82 Heart Rate: [82-92] Blood Pressure BP: 124/82 mmHg BP: (124-147)/(82-96) Respiratory Rate Resp: 20 Resp: [20] SpO2 SpO2: 95 % SpO2: [95 %-96 %] General: A&Ox3, NAD, well nourished HEENT: PERRL, EOMI, sclerae anicteric, conjunctivae pink and well perfused Neck: Supple without carotid bruit or thyromegaly. JVD 8cm while supine- no JVD at 45 degrees Respiratory: Good air entry bilaterally, No crackles, No wheezes Cardiac: RRR, S1/S2 of normal character and amplitude, no m/r/g. PMI Nondisplaced Abdominal: Soft and non-tender with no organomegaly. Normal bowel sounds Extremities: No atrophy, no clubbing/cyanosis, no edema, radial/DP/PT pulses 2+ and symmetric. Cap refill < 2 secs Neurology: CN II-XII intact, sensation intact, strength 5/5 throughout, DTRs 2+ bilaterally. No focal deficits Psychiatric: Normal affect DATA: EKG (01/01) NSR, TWI in lateral leads EKG (12/31) NSR, non-specific TWA ECHO (12/31) 1. The left ventricular chamber size is normal. Left ventricular wall thickness is normal. There is diffuse hypokinesis present with some variation in segmental function. Global left ventricular systolic function is moderately reduced. Ejection fraction is estimated to be 40%. 2. Right ventricular chamber size, wall thickness, and systolic function are within normal limits. 3. There is no hemodynamically significant valve disease. 4. The estimated pulmonary artery systolic pressure is 52 mmHg. There is evidence that pulmonary hypertension may be underestimated. CXR (12/30) The previously seen right IJ catheter and PICC catheter have been removed and there is a new left-sided PICC catheter terminating in the SVC. There is no other interval change, allowing for the more upright positioning. Again seen are bilateral pleural effusions and bibasilar opacities most likely due to a combination of atelectasis and mild pulmonary edema. The mid and upper lung zones remain clear. No interval change noted Recent Labs Basename 01/01/13 0425 12/31/12 0400 12/30/12 1617 WBC 5.0 7.2 6.3 HGB 8.8* 9.1* 9.1* HCT 26.3* 27.8* 26.5* PLATELET 247 317 289 Recent Labs Basename 01/01/13 0425 12/31/12 0400 12/30/12 1617 NA 138 139 139 K 3.4* 4.2 3.0* CL 100 103 102 CO2 27 25 25 BUN 11 11 11 CREATININE 2.06* 2.14* 2.02* No results found for this basename: AST:3,ALT:3,ALKPHOS:3,BILITOT:3,BILIDIR:3 in the last 168 hours Recent Labs Basename 01/01/13 0425 12/31/12 0400 12/30/12 1617 12/27/12 0357 12/26/12 0342 CALCIUM 9.1 8.9 9.1 -- -- MAGNESIUM -- -- -- 0.81 0.80 PHOS -- -- -- 4.4 4.1 Recent Labs Basename 01/01/13 0425 12/31/12 0400 12/30/12 1529 12/26/12 1031 12/25/12 1526 INR 1.8* 1.7* 1.5* -- -- PT 21.4* 20.3* 18.9* -- -- PTT -- -- -- 36* 31 Recent Labs Basename 01/01/13 04212/31/12 1955 CK 35 46 TROPONINT 0.06* 0.06* ProBNP Date Value Range Status 01/01/2013 87278* <=125 pg/mL Final Assessment: 52 y/o F with recent admit to [facility] for TTP-HUS c/b MRSA bacteremia presents with fluid overload, and an echo yesterday demonstrating EF of 40 with global hypokinesis. The severity of this heart failure on presentation was NYHA III, AHA/ACC stage C. With excellent diuresis done by the primary team, her weight is coming back to baseline, and functionally she is now NYHA II. Given her mild JVD and functional decrease, there is still room to diurese, as she is perfusing well (wet/warm). In regards to the etiology of the heart failure, it seems to correlate chronologically well with her onset of TTP-HUS. Not only can this disease lead to microthombi in the periphery, it can also cause microthrombi in the coronary circulation diffusely, without causing ischemia or symptomatology thereof. This cause of heart failure is usually reversible, and should be followed as an outpatient. The EKG this morning did indeed show new TWI in lateral leads, as well as QTc prolongation as compared to previous. Regarding the TWI, this was not accompanied by any chest pain or anginal equivalent. At this time, it is hypothesized to be from a somewhat uneven distribution of the aforementioned di sseminated microthrombi in the LCx territory. It is not necessary to act upon this new finding at this time, but should be kept in mind moving forward as the heart failure is managed. Interestingly, the QTc prolongation may be a transient representation of a Takotsubo-type cardiomyopathy, reported 2/2 the disseminated microthrombi itself. This usually resolves on its own in 24-48 hours. The positive troponins likely represent a troponin leak from the fluid overload itself. This hypothesis is backed by a) steady troponin levels and b) negative CK. Recommendations: # Acute Systolic Heart Failure, last EF of 40% - Light diuresis, as patient is approaching baseline weight. Can give a couple more doses of Lasix IV depending on fluid status, then switch to Lasix po prior to discharge once fluid status normalizes. Follow up BMP in a week. - Aspirin - Beta- kirstie (already on board) - ANTONIO inhibitor. Because amlodipine and ACEi's have a similar mechanism of hypertension control, itis suggested that amlodipine be switched to an ACEi for both the HF as well as afterload reduction benefits. In view of the creatinine, I would begin with very low dose, perhaps lisinopril 2.5mg, andmonitor K+ and Cr. - The patient's lipid profile was well within normal limits. Because this presentation does not likely represent ACS, the patient does not require a statin at this time - Follow up with cardiology in 2 weeks after discharge. - Follow-up echo in a month. If the EF is not improved or a regional WMA presents itself at that time, I would consider a nuclear stress test. #Troponinemia - I would stop trending the cardiac enzymes, unless the patient complains of chest pain or some other anginal equivalent. Thank you for this consult. Jimmy Severino MD #[id number] STAFF ADDENDUM: I have reviewed the available records, interviewed and examined the patient. I have discussed the patient's medical history, differential diagnosis, and plan of therapy with Dr Severino and have reviewed their note dated 01/01/2013 and I agree with their note and plan of therapy. * Plan of Care - Odalis Chung RN - 12/31/2012 10:07 PM EDT Problem: Pain, Acute (Adult, Obstetric) Goal: Acute Pain: Acceptable Pain Control/Comfort Level - Pain, Acute (Adult, Obstetric) Outcome: Present (see interventions, notes) Patient denied any pain overnight. Problem: Trauma/Injury Risk (Adult, Obstetric) Goal: Trauma/Injury Risk: Absence of Trauma/Injury/Falls Outcome: Present (see interventions, notes) Patient remains at risk to fall, fall precautions maintained. Patient up to BSC independently, denies any dizziness, steady gait noted. Patient continues to be SOB with ambulation. Problem: Skin Integrity Impairment, Risk/Actual (Adult, Obstetric) Goal: Skin Integrity Impairment, Risk/Actual: Skin Integrity/Wound Healing Outcome: Present (see interventions, notes) No signs of skin breakdown noted overnight. Scattered bruising on abdomen d/t lovenox injections. Problem: Respiratory Insufficiency (Adult, Obstetric) Goal: Respiratory Insufficiency: Effective Respiration Outcome: Present (see interventions, notes) Patient on 2L NC at rest. Lungs clear overnight, using IS frequently. Patient continues on a 1.5L fluid restriction. Patient w/2+ edema in bilateral LE's, unchanged from previous assessments. Comments: Patient's DBP elevated to 109-119 this evening. Patient received prn Labetalol x 1 with effect. DBP80's-90's rest of shift. Patients EF 40%, cardiology to be consulted 01/01. Patient continues on Metoprolol & Norvasc per orders. * Plan of Care - Linda Florez RN - 12/31/2012 7:51 PM EDT Problem: Pain, Acute (Adult, Obstetric) Goal: Acute Pain: Acceptable Pain Control/Comfort Level - Pain, Acute (Adult, Obstetric) Outcome: Present (see interventions, notes) Patient c/o 3/10 generalized SWIFT pain, given Tylenol x 1 with relief per patient. Problem: Trauma/Injury Risk (Adult, Obstetric) Goal: Trauma/Injury Risk: Absence of Trauma/Injury/Falls Outcome: Present (see interventions, notes) Patient remains at risk to fall d/t blurry vision, SOB, and dizziness upon standing. Patient needs encouragement to call for assistance. Patient ambulated 2 laps in patino with RN at side and using walker. Slightly SOB with ambulation. Problem: Skin Integrity Impairment, Risk/Actual (Adult, Obstetric) Goal: Skin Integrity Impairment, Risk/Actual: Skin Integrity/Wound Healing Outcome: Present (see interventions, notes) Patient's skin remains intact. Scattered bruising on abdomen d/t lovenox injections. Problem: Respiratory Insufficiency (Adult, Obstetric) Goal: Respiratory Insufficiency: Effective Respiration Outcome: Present (see interventions, notes) Patient on 2-3 L NC at rest, but quickly desats with ambulation. Patient ambulated with this RN 2 laps in patino today using continuous Pulse Sat, starting on 3 L NC, which had to be titrated up to 8 Ld/t desats to 79-80%. Patient only slightly SOB and dizzy and recovered quickly once back to bed, increasing sats to high 90s on 2 L/min. MDs aware. Patient given Lasix 40 mg this am wit good response (3.5 L urine output). On 1.5 L fluid restriction. Lungs with fine crackles at bases. Patient usingIS frequently. Comments: Patient's BP elevated, ranged from 130-160/90-100s. MD aware of HTN. Patient started on Daily Norvasc and given IV Labetalol x 1 with drop to 140/90s. Patient had echo done today with EF 40%. After reviewing echo findings, team decided to start patient on Metoprolol with PRN labetalol. Cardiology will be consulted tomorrow. Patient received one time dose SQ Epogen today d/t presence of DELVIS (creatinine 2.14) and RBC low at 3.07. * Plan of Care - Odalis Lora RN - 12/31/2012 5:40 AM EDT Problem: Pain, Acute (Adult, Obstetric) Goal: Acute Pain: Acceptable Pain Control/Comfort Level - Pain, Acute (Adult, Obstetric) Outcome: Present (see interventions, notes) Patient c/o 7/10 neck pain once overnight. Tylenol given with relief. Problem: Trauma/Injury Risk (Adult, Obstetric) Goal: Trauma/Injury Risk: Absence of Trauma/Injury/Falls Outcome: Absent and monitoring Patient up to bedside commode overnight with stand by assist. Patient calling appropriately. Problem: Skin Integrity Impairment, Risk/Actual (Adult, Obstetric) Goal: Skin Integrity Impairment, Risk/Actual: Skin Integrity/Wound Healing Outcome: Absent and monitoring Skin intact. Patient repositioning in bed independently. Problem: Respiratory Insufficiency (Adult, Obstetric) Goal: Respiratory Insufficiency: Effective Respiration Outcome: Present (see interventions, notes) Patient c/o mild SOB at rest. RR 18-20. Patient 95% on 3L NC. Patient requested oxygen be increasedto 4L. Patient 92-98% on 4L the rest of the night. * Plan of Care - Linda Florez RN - 12/30/2012 8:02 PM EDT Problem: Respiratory Insufficiency (Adult, Obstetric) Goal: Respiratory Insufficiency: Effective Respiration Outcome: Present (see interventions, notes) Patient admitted today from OSH with SOB. Remains on 3 L NC sating in the upper 90s. Lungs with crackles in bilateral bases. Patient encouraged to use IS. 40 mg Lasix given with good urinary output. BLE with +2 pitting edema. Patient SOB and desats to high 80s with activity. Monitored on Luis. Comments: Patient's K critical at 3.0, MD notified and patient started on IV K replacements (will receive total of 5 doses tonight). Patient being treated for BLE DVT and RUE clot with 80 mg Lovenox and 5 mg Coumadin. Plt 289 and INR 1.5. Will reassess INR tomorrow morning. * Plan of Care - Linda Florez RN - 12/30/2012 7:55 PM EDT Problem: Pain, Acute (Adult, Obstetric) Goal: Acute Pain: Acceptable Pain Control/Comfort Level - Pain, Acute (Adult, Obstetric) Outcome: Present (see interventions, notes) Patient c/o 4/10 left-sided headache pain which was relieved per patient after drinking water and without pharmacological intervention. Problem: Trauma/Injury Risk (Adult, Obstetric) Goal: Trauma/Injury Risk: Absence of Trauma/Injury/Falls Outcome: Present (see interventions, notes) Patient at risk to fall d/t tubing (oxygen, IV, luis) and c/o dizziness upon standing. Patient calling appropriately to get to and from bedside commode. Problem: Skin Integrity Impairment, Risk/Actual (Adult, Obstetric) Goal: Skin Integrity Impairment, Risk/Actual: Skin Integrity/Wound Healing Outcome: Absent and monitoring Patient's skin remains intact. Scattered bruising on abdomen d/t Lovenox injections. Patient's L [facility] site C, D, I. * Miscellaneous - Provider, Scanning - 12/30/2012 12:33 PM EDT documented in this encounter Plan of Treatment Scheduled Referrals Name Type Priority Associated Diagnoses Order Schedule OPAT: Order / Recommendation for Post Discharge IV Antibiotic Management Outpatient Referral Routine MRSA bacteremia Ordered: 01/05/2013 documented as of this encounter Procedures Procedure Name Priority Date/Time Associated Diagnosis Comments LAB SCAN 01/07/2013 6:52 PM EDT BMP W/FASTING GLUCOSE Routine 01/05/2013 4:30 AM EDT DIFFERENTIAL, AUTOMATED Routine 01/05/2013 4:30 AM EDT APTT Routine 01/05/2013 4:30 AM EDT PROTHROMBIN TIME Routine 01/05/2013 4:30 AM EDT CBC (WITH DIFF) Routine 01/05/2013 4:30 AM EDT LACTATE DEHYDROGENASE Routine 01/05/2013 4:30 AM EDT THYROID STIMULATING IMMUNOGLOBULIN-BELL Routine 01/04/2013 1:35 AM EDT BMP W/FASTING GLUCOSE Routine 01/04/2013 1:35 AM EDT DIFFERENTIAL, AUTOMATED Routine 01/04/2013 1:35 AM EDT APTT Routine 01/04/2013 1:35 AM EDT PROTHROMBIN TIME Routine 01/04/2013 1:35 AM EDT CBC (WITH DIFF) Routine 01/04/2013 1:35 AM EDT LACTATE DEHYDROGENASE Routine 01/04/2013 1:35 AM EDT CK Routine 01/04/2013 1:35 AM EDT VANCOMYCIN, TROUGH Timed 01/04/2013 1: 35 AM EDT BMP W/FASTING GLUCOSE Routine 01/03/2013 5:26 AM EDT DIFFERENTIAL, AUTOMATED Routine 01/03/2013 5:26 AM EDT PROTHROMBIN TIME Routine 01/03/2013 5:26 AM EDT CBC (WITH DIFF) Routine 01/03/2013 5:26 AM EDT LACTATE DEHYDROGENASE Routine 01/03/2013 5:26 AM EDT VANCOMYCIN, TROUGH Timed 01/02/2013 3: 09 PM EDT LIPASE Routine 01/02/2013 11:50 AM EDT HEPATIC FUNCTION PANEL Routine 01/02/2013 11:50 AM EDT BMP W/FASTING GLUCOSE Routine 01/02/2013 5:15 AM EDT LUPUS ANTICOAGULANT Routine 01/02/2013 5 :15 AM EDT DIFFERENTIAL, AUTOMATED Routine 01/02/2013 5:15 AM EDT BETA-2 GLYCOPROTEIN ANTIBODIES Routine 01/02/2013 5:15 AM EDT CARDIOLIPIN ANTIBODY SCREEN Routine 01/02/2013 5:15 AM EDT PROTHROMBIN TIME Routine 01/02/2013 5:15 AM EDT CBC (WITH DIFF) Routine 01/02/2013 5:15 AM EDT LACTATE DEHYDROGENASE Routine 01/02/2013 5:15 AM EDT NM LUNG VENTILATION PERFUSION Routine 01/01/2013 5:52 PM EDT XR CHEST PA AND LATERAL Routine 01/01/2013 11:41 AM EDT EKG 12-LEAD Routine 01/01/2013 9:22 AM EDT CHF (congestive heart failure) BMP W/FASTING GLUCOSE Routine 01/01/2013 4:25 AM EDT FREE THYROXINE INDEX Routine 01/01/2013 4:25 AM EDT DIFFERENTIAL, AUTOMATED Routine 01/01/2013 4:25 AM EDT CARDIAC ENZYMES ([facility]/CGP) Routine 01/01/2013 4:25 AM EDT PROTHROMBIN TIME Routine 01/01/2013 4:25 AM EDT CBC (WITH DIFF) Routine 01/01/2013 4:25 AM EDT T3 TOTAL Routine 01/01/2013 4:25 AM EDT T UPTAKE Routine 01/01/2013 4:25 AM EDT TSH Routine 01/01/2013 4:25 AM EDT T4, FREE Routine 01/01/2013 4:25 AM EDT T4 TOTAL Routine 01/01/2013 4:25 AM EDT PRO-BRAIN NATRIURETIC PEPTIDE Routine 01/01/2013 4:25 AM EDT LACTATE DEHYDROGENASE Routine 01/01/2013 4:25 AM EDT LIPID PANEL (REFLEX DIRECT LDL) Routine 01/01/2013 4:25 AM EDT CARDIAC ENZYMES ([facility]P) Routine 12/31/2012 7:55 PM EDT ECHOCARDIOGRAM TRANSTHORACIC Routine 12/31/2012 3:06 PM EDT HUS (hemolytic uremic syndrome) TTP (thrombotic thrombocytopenic purpura) BMP W/FASTING GLUCOSE Routine 12/31/2012 4:00 AM EDT DIFFERENTIAL, AUTOMATED Routine 12/31/2012 4:00 AM EDT PROTHROMBIN TIME Routine 12/31/2012 4:00 AM EDT CBC (WITH DIFF) Routine 12/31/2012 4:00 AM EDT BMP W/FASTING GLUCOSE Routine 12/30/2012 4:17 PM EDT DIFFERENTIAL, AUTOMATED Routine 12/30/2012 4:17 PM EDT CBC (WITH DIFF) Routine 12/30/2012 4:17 PM EDT XR CHEST PA AND LATERAL Routine 12/30/2012 3:54 PM EDT PROTHROMBIN TIME STAT 12/30/2012 3:29 PM EDT VANCOMYCIN, TROUGH Timed 12/30/2012 3: 29 PM EDT documented in this encounter Results * SCAN DOC: LAB (01/07/2013 6:52 PM EDT) Narrative 01/07/2013 6:52 PM EDT Procedure Note Provider, Scanning - 01/07/2013 6:52 PM EDT Scanning Provider MEDIA MGR SCAN EXT O RDR/RSLT * Differential, Automated (01/05/2013 4:30 AM EDT) Neutrophils % 57.0 34.0 - 71.0 % CERNER MILLENNIUM Neutr Abs (ANC) 2.20 1.50 - 6.30 x10(3)/mcL CERNER MILLENNIUM Lymphocytes % 27.3 19.0 - 53.0 % CERNER MILLENNIUM Lymphocytes Abs 1.0 1.0 - 3.6 x10(3)/mcL CERNER MILLENNIUM Monocytes % 9.4 4.0 - 13.0 % CERNER MILLENNIUM Monocyte Abs 0.4 0.2 - 1.0 x10(3)/mcL CERNER MILLENNIUM Eosinophils % 5.2 0.0 - 7.0 % CERNER MILLENNIUM Eosinophils Abs 0.2 0.0 - 0.5 x10(3)/mcL CERNER MILLENNIUM Basophils % 0.8 0.0 - 2.0 % CERNER MILLENNIUM Basophils Abs 0.0 0.0 - 0.2 x10(3)/mcL CERNER MILLENNIUM Immature Gran % 0.30 0.00 - 0.66 % CERNER MILLENNIUM Comment: Immature granulocytes(IG's)percentage and absolute count will include metamyelocytes, myelocytes, and promyelocytes. Blood smears from CBCs yielding IG's will be scanned manually for concordance. If this scan disagrees with the automated IG or if promyelocytes are noted, a manual differential will be performed. Petty Gran Abs 0.01 0.00 - 0.05 x10(3)/mcL CERNER MILLENNIUM Blood specimen (specimen) 01/05/2013 4:30 AM EDT 01/05/2013 4:43 AM EDT Haris Jarvis MD HEMATOLOGY ORDERABLE S Performing Organization Address [facility] Phone Number BAR [employer] * (ABNORMAL) APTT (01/05/2013 4:30 AM EDT) PTT 36(H) 25 - 35 sec CERNER MILLENNIUM Comment: Recommended therapeutic PTT range for full dose unfractionated heparin is 80-114 seconds. Blood specimen (specimen) 01/05/2013 4:30 AM EDT 01/05/2013 4:43 AM EDT Narrative Resulting Agency Comment Spec In Lab Dipak Robertson MD HEMATOLOGY ORDERABL ES Performing Organization Address [facility] Phone Number BAR [employer] * (ABNORMAL) Prothrombin Time (01/05/2013 4:30 AM EDT) PT 22.1(H) 12.0 - 15.0 sec CERNER Corrupt LaceENNIUM Comment: [facility] Transfusion Committee Guidelines: INR less than 2.0, PTT less than OR equal to 43.5 seconds, or Fibrinogen greater than or equal to 100 mg/dl indicate adequate procoagulant activity for hemostasis in patients without underlying bleeding disorders. INR 1.9(H) 0.9 - 1.1 CERNER MILLENNIUM Blood specimen (specimen) 01/05/2013 4:30 AM EDT 01/05/2013 4:43 AM EDT Narrative Resulting Agency Comment Spec In Lab Dipak Robertson MD HEMATOLOGY ORDERABL ES Performing Organization Address [facility]/State/ZIP Co de Phone Number CERNER ISRRAELENNIUM * Lactate Dehydrogenase (01/05/2013 4:30 AM EDT) LDH 198 110 - 220 unit/L CERNER MILLENNIUM Blood specimen (specimen) 01/05/2013 4:30 AM EDT 01/05/2013 4:43 AM EDT Narrative Resulting Agency Comment Spec In Lab Haris Jarvis MD CHEMISTRY ORDERABLES Performing Organization Address [facility] de Phone Number CERELIO ARCOSENNIUM * (ABNORMAL) CBC (with Diff) (01/05/2013 4:30 AM EDT) WBC 3.8(L) 4.0 - 10.0 x10(3)/mcL CERNER MILLENNIUM RBC 3.20(L) 3.93 - 5.22 x10(6)/mcL CERNER MILLENNIUM Hemoglobin 9.6(L) 11.2 - 15.7 gm/dL CERNER MILLENNIUM Hematocrit 29.9(L) 34.0 - 45.0 % CERNER MILLENNIUM MCV 93.4 79.0 - 94.0 fL CERNER MILLENNIUM MCH 30.0 26.6 - 32.2 pg CERNER MILLENNIUM MCHC 32.1 32.0 - 36.5 gm/dL CERNER MILLENNIUM Platelets 274 145 - 370 x10(3)/mcL CERNER MILLENNIUM RDWSD 52.2(H) 35.0 - 46.0 fL CERNER MILLENNIUM RDWCV 15.7(H) 10.9 - 14.4 % CERNER MILLENNIUM MPV 11.0 9.0 - 12.0 fL CERNER MILLENNIUM Blood specimen (specimen) 01/05/2013 4:30 AM EDT 01/05/2013 4:43 AM EDT Narrative Resulting Agency Comment Spec In Lab Haris Jarvis MD HEMATOLOGY ORDERABLE S Performing Organization Address [facility] Co de Phone Number BAR PINEDAIUM * (ABNORMAL) BMP w/fasting Glucose (01/05/2013 4:30 AM EDT) Glucose Fasting 94 65 - 99 mg/dL CERNER MILLENNIUM Comment: ?Fasting* Glucose Interpretive Criteria Normal ?65-99 mg/dL Impaired Fasting glucose ?100-125 mg/dL Consistent with Diabetes Mellitus ? >or= 126 mg/dL *Fasting is defined as no caloric intake for at least 8 hours In the absence of unequivocal hyperglycemia a plasma glucose value of >or= 126 mg/dL should be repeated on a subsequent day. Diagnosis and Classification of Diabetes Mellitus, Position Statement from the [place] [employer]. ??Diabetes Care, Volume 33, Supplement 1, Jun 2009 BUN 20(H) 8 - 18 mg/dL CERNER MILLENNIUM Creatinine 2.27(H) 0.70 - 1.20 mg/dL CERNER MILLENNIUM Comment: Please note that the pediatric reference intervals supplied above were not validated at [facility]. Results from pediatric patients should be interpreted in conjunction to the patient's age, height and muscle mass. Sodium 136 135 - 145 mmol/L CERNER MILLENNIUM Potassium 4.2 3.5 - 5.0 mmol/L CERNER MILLENNIUM Comment: Please note: ??Patients with WBC >100,000 may have falsely elevated Potassium levels. ??For accurate Potassium quantification in these patients send serum separator tube (gold top) for subsequent determinations. ??Contact the Clinical Chemistry Laboratory if there are any questions. Chloride 98 98 - 107 mmol/L CERNER MILLENNIUM CO2 29 22 - 31 mmol/L CERNER MILLENNIUM Anion Gap 9 5 - 15 mmol/L CERNER MILLENNIUM Calcium 9.4 8.5 - 10.5 mg/dL CERNER MILLENNIUM Estimated GFR 22(L) >=60 CERNER MILLENNIUM Comment: This estimated GFR [...] internet browser. http://www.nkdep.nih.gov/lab-evaluation.shtml http://www.kidney.org/professionals/ Blood specimen (specimen) 01/05/2013 4:30 AM EDT 01/05/2013 4:43 AM EDT Narrative Resulting Agency Comment Spec In Lab Haris Jarvis MD CHEMISTRY ORDERABLES Performing Organization Address [facility] Co de Phone Number [facility] * Thyroid Stimulating Immunoglobulin (01/04/2013 1:35 AM EDT) Pathologist [facility] <1.0 <=1.3 TSI index [facility] Comment: Test Performed by: [address] [address] [employer] Deckhand: Tulio Luna III, M.D. Blood specimen (specimen) 01/04/2013 1:35 AM EDT 01/06/2013 7:37 PM EDT Narrative Resulting Agency Comment Spec In Lab Dipak Robertson MD IMMUNOLOGY ORDERABL ES Performing Organization Address [facility] de Phone Number [facility] * CK (01/04/2013 1:35 AM EDT) Pathologist [facility] CK, Total 45 0 - 160 unit/L [facility] ISRRAELENNIUM Blood specimen (specimen) 01/04/2013 1:35 AM EDT 01/04/2013 1:45 AM EDT Narrative Resulting Agency Comment Spec In Lab Haris Jarvis MD CHEMISTRY ORDERABLES Performing Organization Address [facility] Co de Phone Number [facility] * Differential, Automated (01/04/2013 1:35 AM EDT) Neutrophils % 64.5 34.0 - 71.0 % [facility] Neutr Abs (ANC) 3.58 1.50 - 6.30 x10(3)/mcL CERNER MILLENNIUM Lymphocytes % 20.4 19.0 - 53.0 % CERNER MILLENNIUM Lymphocytes Abs 1.1 1.0 - 3.6 x10(3)/[facility] CERNER MILLENNIUM Monocytes % 10.5 4.0 - 13.0 % CERNER MILLENNIUM Monocyte Abs 0.6 0.2 - 1.0 x10(3)/[facility] CERNER MILLENNIUM Eosinophils % 4.0 0.0 - 7.0 % CERNER MILLENNIUM Eosinophils Abs 0.2 0.0 - 0.5 x10(3)/[facility] CERNER MILLENNIUM Basophils % 0.4 0.0 - 2.0 % CERNER MILLENNIUM Basophils Abs 0.0 0.0 - 0.2 x10(3)/[facility] CERNER MILLENNIUM Immature Gran % 0.20 0.00 - 0.66 % CERNER MILLENNIUM Comment: Immature granulocytes(IG's)percentage and absolute count will include metamyelocytes, myelocytes, and promyelocytes. Blood smears from CBCs yielding IG's will be scanned manually for concordance. If this scan disagrees with the automated IG or if promyelocytes are noted, a manual differential will be performed. Petty Gran Abs 0.01 0.00 - 0.05 x10(3)/[facility] CERNER MILLENNIUM Blood specimen (specimen) 01/04/2013 1:35 AM EDT 01/04/2013 1:44 AM EDT Haris Jarvis MD HEMATOLOGY ORDERABLE S Performing Organization Address City/State/[facility] Co de Phone Number [facility] MIRIAMIUM * APTT (01/04/2013 1:35 AM EDT) PTT 34 25 - 35 sec [facility] Comment: Recommended therapeutic PTT range for full dose unfractionated heparin is 80-114 seconds. Blood specimen (specimen) 01/04/2013 1:35 AM EDT 01/04/2013 1:43 AM EDT Narrative Resulting Agency Comment Spec In Lab Dipak Robertson MD HEMATOLOGY ORDERABL ES [facility] * (ABNORMAL) Prothrombin Time (01/04/2013 1:35 AM EDT) PT 20.0(H) 12.0 - 15.0 sec [facility] Comment: [facility] Transfusion Committee Guidelines: INR less than 2.0, PTT less than OR equal to 43.5 seconds, or Fibrinogen greater than or equal to 100 mg/dl indicate adequate procoagulant activity for hemostasis in patients without underlying bleeding disorders. INR 1.6(H) 0.9 - 1.1 [facility] Blood specimen (specimen) 01/04/2013 1:35 AM EDT 01/04/2013 1:43 AM EDT Narrative Resulting Agency Comment Spec In Lab Dipak Robertson MD HEMATOLOGY ORDERABL ES Performing Organization Address City/[facility]/ZIP Co de Phone Number [facility] * Lactate Dehydrogenase (01/04/2013 1:35 AM EDT) Pathologist [facility] LDH 220 110 - 220 unit/L [facility] Blood specimen (specimen) 01/04/2013 1:35 AM EDT 01/04/2013 1:44 AM EDT Narrative Resulting Agency Comment Spec In Lab Haris Jarvis MD CHEMISTRY ORDERABLES Performing Organization Address [facility]/ZIP Co de Phone Number [facility] * (ABNORMAL) BMP w/fasting Glucose (01/04/2013 1:35 AM EDT) Pathologist [facility] Glucose Fasting 102(H) 65 - 99 mg/dL [facility] Comment: ?Fasting* Glucose Interpretive Criteria Normal ?65-99 mg/dL Impaired Fasting glucose ?100-125 mg/dL Consistent with Diabetes Mellitus ? >or= 126 mg/dL *Fasting is defined as no caloric intake for at least 8 hours In the absence of unequivocal hyperglycemia a plasma glucose value of >or= 126 mg/dL should be repeated on a subsequent day. Diagnosis and Classification of Diabetes Mellitus, Position Statement from the [place] [employer]. ??Diabetes Care, Volume 33, Supplement 1, Jun 2009 BUN 17 8 - 18 mg/dL CERNER MILLENNIUM Creatinine 2.36(H) 0.70 - 1.20 mg/dL CERNER MILLENNIUM Comment: Please note that the pediatric reference intervals supplied above were not validated at [facility]. Results from pediatric patients should be interpreted in conjunction to the patient's age, height and muscle mass. Sodium 134(L) 135 - 145 mmol/L CERNER MILLENNIUM Potassium 4.2 3.5 - 5.0 mmol/L CERNER MILLENNIUM Comment: Please note: ??Patients with WBC >100,000 may have falsely elevated Potassium levels. ??For accurate Potassium quantification in these patients send serum separator tube (gold top) for subsequent determinations. ??Contact the Clinical Chemistry Laboratory if there are any questions. Chloride 96(L) 98 - 107 mmol/L CERNER MILLENNIUM CO2 28 22 - 31 mmol/L CERNER MILLENNIUM Anion Gap 10 5 - 15 mmol/L CERNER MILLENNIUM Calcium 9.2 8.5 - 10.5 mg/dL CERNER MILLENNIUM Estimated GFR 21(L) >=60 CERNER MILLENNIUM Comment: This estimated GFR [...] internet browser. http://www.nkdep.nih.gov/lab-evaluation.shtml http://www.kidney.org/professionals/ Blood specimen (specimen) 01/04/2013 1:35 AM EDT 01/04/2013 1:44 AM EDT Narrative Resulting Agency Comment Spec In Lab Haris Jarvis MD CHEMISTRY ORDERABLES CERNER MILLENNIUM * Vancomycin, trough (01/04/2013 1:35 AM EDT) Vanc Trough 20.4 mg/L CERNER MILLENNIUM Comment: Therapeutic range for complicated infections such as bacteremia, endocarditis, osteomyelitis, meningitis, and hospital-acquired pneumonia caused by S. aureus: 15-20 mg/L Therapeutic range for other indications: 10-15 mg/L Toxic: >25mg/L Reference: Vancomycin Therapeutic Monitoring: Review and Recommendations from the ASHP, IDSA and SIDP Task Force. ??Am J Health-Syst Pharm. 2009; 66:82-98 Blood specimen (specimen) 01/04/2013 1:35 AM EDT 01/04/2013 1:44 AM EDT Narrative Resulting Agency Comment Spec In Lab Dipak Robertson MD [facility]STRY [facility]ABLE S [facility] * (ABNORMAL) CBC (with Diff) (01/04/2013 1:35 AM EDT) WBC 5.5 4.0 - 10.0 x10(3)/mcL CERNER MILLENNIUM RBC 3.12(L) 3.93 - 5.22 x10(6)/mcL CERNER MILLENNIUM Hemoglobin 9.5(L) 11.2 - 15.7 gm/dL CERNER MILLENNIUM Hematocrit 28.9(L) 34.0 - 45.0 % CERNER MILLENNIUM MCV 92.6 79.0 - 94.0 fL CERNER MILLENNIUM MCH 30.4 26.6 - 32.2 pg CERNER MILLENNIUM MCHC 32.9 32.0 - 36.5 gm/dL CERNER MILLENNIUM Platelets 238 145 - 370 x10(3)/mcL CERNER MILLENNIUM RDWSD 51.8(H) 35.0 - 46.0 fL CERNER MILLENNIUM RDWCV 15.6(H) 10.9 - 14.4 % CERNER MILLENNIUM MPV 10.5 9.0 - 12.0 fL CERNER MILLENNIUM Blood specimen (specimen) 01/04/2013 1:35 AM EDT 01/04/2013 1:44 AM EDT Narrative Resulting Agency Comment Spec In Lab Haris Jarvis MD HEMATOLOGY ORDERABLE S CERELIO ARCOSENNIUM * Differential, Automated (01/03/2013 5:26 AM EDT) Neutrophils % 66.1 34.0 - 71.0 % CERNER MILLENNIUM Neutr Abs (ANC) 3.25 1.50 - 6.30 x10(3)/mcL CERNER MILLENNIUM Lymphocytes % 20.9 19.0 - 53.0 % CERNER MILLENNIUM Lymphocytes Abs 1.0 1.0 - 3.6 x10(3)/mcL CERNER MILLENNIUM Monocytes % 8.7 4.0 - 13.0 % CERNER MILLENNIUM Monocyte Abs 0.4 0.2 - 1.0 x10(3)/mcL CERNER MILLENNIUM Eosinophils % 3.7 0.0 - 7.0 % CERNER MILLENNIUM Eosinophils Abs 0.2 0.0 - 0.5 x10(3)/mcL CERNER MILLENNIUM Basophils [...] 0.05 x10(3)/mcL CERNER MILLENNIUM Blood specimen (specimen) 01/03/2013 5:26 AM EDT 01/03/2013 5:32 AM EDT Haris Jarvis MD HEMATOLOGY ORDERABLE S BAR NOE * Lactate Dehydrogenase (01/03/2013 5:26 AM EDT) LDH 208 110 - 220 unit/L CERNER MILLENNIUM Blood specimen (specimen) 01/03/2013 5:26 AM EDT 01/03/2013 5:32 AM EDT Narrative Resulting Agency Comment Spec In Lab Haris Jarvis MD CHEMISTRY ORDERABLES CERNER ISRRAELENNIUM * (ABNORMAL) BMP w/fasting Glucose (01/03/2013 5:26 AM EDT) Pathologist [facility] Glucose Fasting 99 65 - 99 mg/dL CERNER MILLENNIUM Comment: ?Fasting* Glucose Interpretive Criteria Normal ?65-99 mg/dL Impaired Fasting glucose ?100-125 mg/dL Consistent with Diabetes Mellitus ? >or= 126 mg/dL *Fasting is defined as no caloric intake for at least 8 hours In the absence of unequivocal hyperglycemia a plasma glucose value of >or= 126 mg/dL should be repeated on a subsequent day. Diagnosis and Classification of Diabetes Mellitus, Position Statement from the [place] [employer]. ??Diabetes Care, Volume 33, Supplement 1, Jun 2009 BUN 13 8 - 18 mg/dL CERNER MILLENNIUM Creatinine 2.54(H) 0.70 - 1.20 mg/dL CERNER MILLENNIUM Comment: Please note that the pediatric reference intervals supplied above were not validated at [facility]. Results from pediatric patients should be interpreted in conjunction to the patient's age, height and muscle mass. Sodium 139 135 - 145 mmol/L CERNER MILLENNIUM Potassium 4.0 3.5 - 5.0 mmol/L CERNER MILLENNIUM Comment: Please note: ??Patients with WBC >100,000 may have falsely elevated Potassium levels. ??For accurate Potassium quantification in these patients send serum separator tube (gold top) for subsequent determinations. ??Contact the Clinical Chemistry Laboratory if there are any questions. Chloride 101 98 - 107 mmol/L CERNER MILLENNIUM CO2 27 22 - 31 mmol/L CERNER MILLENNIUM Anion Gap 11 5 - 15 mmol/L CERNER MILLENNIUM Calcium 9.2 8.5 - 10.5 mg/dL CERNER MILLENNIUM Estimated GFR 20(L) >=60 CERNER MILLENNIUM Comment: This estimated GFR [...] internet browser. http://www.nkdep.nih.gov/lab-evaluation.shtml http://www.kidney.org/professionals/ Blood specimen (specimen) 01/03/2013 5:26 AM EDT 01/03/2013 5:32 AM EDT Narrative Resulting Agency Comment Spec In Lab Haris Jarvis MD CHEMISTRY ORDERABLES Performing Organization Address [facility] Co de Phone Number BAR NOE * (ABNORMAL) Prothrombin Time (01/03/2013 5:26 AM EDT) PT 21.2(H) 12.0 - 15.0 sec CERNER MILLENNIUM Comment: [facility] Transfusion Committee Guidelines: INR less than 2.0, PTT less than OR equal to 43.5 seconds, or Fibrinogen greater than or equal to 100 mg/dl indicate adequate procoagulant activity for hemostasis in patients without underlying bleeding disorders. INR 1.8(H) 0.9 - 1.1 CERNER MILLENNIUM Blood specimen (specimen) 01/03/2013 5:26 AM EDT 01/03/2013 5:32 AM EDT Narrative Resulting Agency Comment Spec In Lab Haris Jarvis MD HEMATOLOGY ORDERABLE S Performing Organization Address [facility] Co de Phone Number [facility] * (ABNORMAL) CBC (with Diff) (01/03/2013 5:26 AM EDT) WBC 4.9 4.0 - 10.0 x10(3)/mcL CERNER MILLENNIUM RBC 3.00(L) 3.93 - 5.22 x10(6)/mcL CERNER MILLENNIUM Hemoglobin 8.9(L) 11.2 - 15.7 gm/dL CERNER MILLENNIUM Hematocrit 27.6(L) 34.0 - 45.0 % CERNER MILLENNIUM MCV 92.0 79.0 - 94.0 fL CERNER MILLENNIUM MCH 29.7 26.6 - 32.2 pg CERNER MILLENNIUM MCHC 32.2 32.0 - 36.5 gm/dL CERNER MILLENNIUM Platelets 230 145 - 370 x10(3)/mcL CERNER MILLENNIUM RDWSD 50.9(H) 35.0 - 46.0 fL CERNER MILLENNIUM RDWCV 15.2(H) 10.9 - 14.4 % CERNER MILLENNIUM MPV 10.5 9.0 - 12.0 fL CERNER MILLENNIUM Blood specimen (specimen) 01/03/2013 5:26 AM EDT 01/03/2013 5:32 AM EDT Narrative Resulting Agency Comment Spec In Lab Haris Jarvis MD HEMATOLOGY ORDERABLE S Performing Organization Address City/State/[facility] Co de Phone Number BAR NOE * Vancomycin, trough (01/02/2013 3:09 PM EDT) Vanc Trough 22.3 mg/L [facility] Comment: Therapeutic range for complicated infections such as bacteremia, endocarditis, osteomyelitis, meningitis, and hospital-acquired pneumonia caused by S. aureus: 15-20 mg/L Therapeutic range for other indications: 10-15 mg/L Toxic: >25mg/L Reference: Vancomycin Therapeutic Monitoring: Review and Recommendations from the ASHP, IDSA and SIDP Task Force. ??Am J Health-Syst Pharm. 2009; 66:82-98 Blood specimen (specimen) 01/02/2013 3:09 PM EDT 01/02/2013 3:14 PM EDT Narrative Resulting Agency Comment Spec In Lab Haris Jarvis MD CHEMISTRY ORDERABLES Performing Organization Address City/State/[facility] de Phone Number CERNER MILLENNIUM * (ABNORMAL) Lipase (01/02/2013 11:50 AM EDT) Lipase 192(H) 0 - 60 unit/L CERNER MILLENNIUM Blood specimen (specimen) 01/02/2013 11:50 AM EDT 01/02/2013 12:03 PM EDT Narrative Resulting Agency Comment Spec In Lab Dipak Robertson MD CHEMISTRY ORDERABLE S Performing Organization Address [facility] de Phone Number CERNER MILLENNIUM * Hepatic Function Panel (01/02/2013 11:50 AM EDT) Total Protein 6.7 6.4 - 8.3 gm/dL CERNER MILLENNIUM Albumin 3.8 3.2 - 5.2 gm/dL CERNER MILLENNIUM AST 17 0 - 30 unit/L CERNER MILLENNIUM ALT 15 0 - 30 unit/L CERNER MILLENNIUM Alk Phos 52 40 - 104 unit/L CERNER MILLENNIUM Total Bilirubin 0.2 0.2 - 1.3 mg/dL CERNER MILLENNIUM Bili, Direct 0.1 0.0 - 0.3 mg/dL CERNER MILLENNIUM Blood specimen (specimen) 01/02/2013 11:50 AM EDT 01/02/2013 11:56 AM EDT Narrative Resulting Agency Comment Spec In Lab Dipak Robertson MD CHEMISTRY ORDERABLE S Performing Organization Address [facility] Co de Phone Number CERNER MILLENNIUM * (ABNORMAL) Differential, Automated (01/02/2013 5:15 AM EDT) Neutrophils % 60.0 34.0 - 71.0 % CERNER MILLENNIUM Neutr Abs (ANC) 2.69 1.50 - 6.30 x10(3)/mc L CERNER MILLENNIUM Lymphocytes % 22.0 19.0 - 53.0 % CERNER MILLENNIUM Lymphocytes Abs 1.0 1.0 - 3.6 x10(3)/mc L CERNER MILLENNIUM Monocytes % 13.6(H) 4.0 - 13.0 % CERNER MILLENNIUM Monocyte Abs 0.6 0.2 - 1.0 x10(3)/mc L CERNER MILLENNIUM Eosinophils % 3.8 0.0 - 7.0 % CERNER MILLENNIUM Eosinophils Abs 0.2 0.0 - 0.5 x10(3)/mc L CERNER MILLENNIUM Basophils % 0.4 0.0 - 2.0 % CERNER MILLENNIUM Basophils Abs 0.0 0.0 - 0.2 x10(3)/mc L CERNER MILLENNIUM Immature Gran % 0.20 0.00 - 0.66 % CERNER MILLENNIUM Comment: Immature granulocytes(IG's)percentage and absolute count will include metamyelocytes, myelocytes, and promyelocytes. Blood smears from CBCs yielding IG's will be scanned manually for concordance. If this scan disagrees with the automated IG or if promyelocytes are noted, a manual differential will be performed. Petty Gran Abs 0.01 0.00 - 0.05 x10(3)/mc L [facility] ISRRAELENNIUM Blood specimen (specimen) 01/02/2013 5:15 AM EDT 01/02/2013 5:22 AM EDT Haris Jarvis MD HEMATOLOGY ORDERABLE S [facility] * Beta-2 glycoprotein antibodies (01/02/2013 5:15 AM EDT) B2GPI IgG <21 <=20 unit(s) [facility] Comment: Ranges ?Units ----- ? ----- Normal ? <21 Low Positive (+) ?21-50 Moderate Positive (+) ? 51-100 High Positive (+) ?>100 B2GPI IgM <21 <=20 unit(s) [facility] Comment: Ranges ? Units ----- ?----- Normal ?<21 Low Positive (+) ? 21-50 Moderate Positive (+) ?51-100 High Positive (+) ? >100 B2GPI Interp No comment [facility] Blood specimen (specimen) 01/02/2013 5:15 AM EDT 01/02/2013 8:14 AM EDT Narrative Resulting Agency Comment Spec In Lab Dipak Robertson MD IMMUNOLOGY ORDERABL ES [facility] * Cardiolipin Antibody Screen (01/02/2013 5:15 AM EDT) Cardiolipin IgG <23 <=22 GPL unit(s) [facility] Comment: Ranges ? GPL ------- ? ------ Normal ?<23 Low Positive ? 23-35 Moderate Positive ?36-50 High Positive ? >50 Cardiolipin IgM <11 <=10 MPL unit(s) [facility] Comment: Ranges ?MPL ----- ?----- Normal ?<11 Low Positive ? 11-20 Moderate Positive ?21-30 High Positive ? >30 Blood specimen (specimen) 01/02/2013 5:15 AM EDT 01/02/2013 8:14 AM EDT Narrative Resulting Agency Comment Spec In Lab Dipak Robertson MD IMMUNOLOGY ORDERABL ES [facility] * (ABNORMAL) Lactate Dehydrogenase (01/02/2013 5:15 AM EDT) LDH 229(H) 110 - 220 unit/L [facility] Blood specimen (specimen) 01/02/2013 5:15 AM EDT 01/02/2013 5:22 AM EDT Narrative Resulting Agency Comment Spec In Lab Haris Jarvis MD CHEMISTRY ORDERABLES Performing Organization Address [facility]/ZIP Co de Phone Number [facility] * (ABNORMAL) BMP w/fasting Glucose (01/02/2013 5:15 AM EDT) Glucose Fasting 101(H) 65 - 99 mg/dL [facility] Comment: ?Fasting* Glucose Interpretive Criteria Normal ?65-99 mg/dL Impaired Fasting glucose ?100-125 mg/dL Consistent with Diabetes Mellitus ? >or= 126 mg/dL *Fasting is defined as no caloric intake for at least 8 hours In the absence of unequivocal hyperglycemia a plasma glucose value of >or= 126 mg/dL should be repeated on a subsequent day. Diagnosis and Classification of Diabetes Mellitus, Position Statement from the [place] [employer]. ??Diabetes Care, Volume 33, Supplement 1, Jun 2009 BUN 10 8 - 18 mg/dL CERNER MILLENNIUM Creatinine 2.18(H) 0.70 - 1.20 mg/dL CERNER MILLENNIUM Comment: Please note that the pediatric reference intervals supplied above were not validated at [facility]. Results from pediatric patients should be interpreted in conjunction to the patient's age, height and muscle mass. Sodium 139 135 - 145 mmol/L CERNER MILLENNIUM Potassium 4.0 3.5 - 5.0 mmol/L CERNER MILLENNIUM Comment: Please note: ??Patients with WBC >100,000 may have falsely elevated Potassium levels. ??For accurate Potassium quantification in these patients send serum separator tube (gold top) for subsequent determinations. ??Contact the Clinical Chemistry Laboratory if there are any questions. Chloride 102 98 - 107 mmol/L CERNER MILLENNIUM CO2 27 22 - 31 mmol/L CERNER MILLENNIUM Anion Gap 10 5 - 15 mmol/L CERNER MILLENNIUM Calcium 9.2 8.5 - 10.5 mg/dL CERNER MILLENNIUM Estimated GFR 24(L) >=60 CERNER MILLENNIUM Comment: This estimated GFR [...] internet browser. http://www.nkdep.nih.gov/lab-evaluation.shtml http://www.kidney.org/professionals/ Blood specimen (specimen) 01/02/2013 5:15 AM EDT 01/02/2013 5:22 AM EDT Narrative Resulting Agency Comment Spec In Lab Haris Jarvis MD CHEMISTRY ORDERABLES Performing Organization Address [facility] Co de Phone Number BAR NOE * (ABNORMAL) Prothrombin Time (01/02/2013 5:15 AM EDT) PT 21.1(H) 12.0 - 15.0 sec CERNER MILLENNIUM Comment: [facility] Transfusion Committee Guidelines: INR less than 2.0, PTT less than OR equal to 43.5 seconds, or Fibrinogen greater than or equal to 100 mg/dl indicate adequate procoagulant activity for hemostasis in patients without underlying bleeding disorders. INR 1.8(H) 0.9 - 1.1 CERNER MILLENNIUM Blood specimen (specimen) 01/02/2013 5:15 AM EDT 01/02/2013 5:22 AM EDT Narrative Resulting Agency Comment Spec In Lab Haris Jarvis MD HEMATOLOGY ORDERABLE S Performing Organization Address [facility] Co de Phone Number BAR NOE * Lupus Anticoagulant (01/02/2013 5:15 AM EDT) Lupus Anticoag Neg Neg CERNE R MILLENNIUM Blood specimen (specimen) 01/02/2013 5:15 AM EDT 01/02/2013 5:22 AM EDT Narrative Resulting Agency Comment Spec In Lab Dipak Robertson MD HEMATOLOGY ORDERABL ES Performing Organization Address [facility] Co de Phone Number CERELIO PINEDAIUM * (ABNORMAL) CBC (with Diff) (01/02/2013 5:15 AM EDT) WBC 4.5 4.0 - 10.0 x10(3)/mcL CERNER MILLENNIUM RBC 3.05(L) 3.93 - 5.22 x10(6)/mcL CERNER MILLENNIUM Hemoglobin 9.0(L) 11.2 - 15.7 gm/dL CERNER MILLENNIUM Hematocrit 27.8(L) 34.0 - 45.0 % CERNER MILLENNIUM MCV 91.1 79.0 - 94.0 fL CERELIO ARCOSENNIUM MCH 29.5 26.6 - 32.2 pg CERNER MILLENNIUM MCHC 32.4 32.0 - 36.5 gm/dL CERELIO MILLENNIUM Platelets 226 145 - 370 x10(3)/mcL CERNER MILLENNIUM RDWSD 52.0(H) 35.0 - 46.0 fL CERELIO MILLENNIUM RDWCV 15.5(H) 10.9 - 14.4 % CERELIO ARCOSENNIUM MPV 10.4 9.0 - 12.0 fL BAR ARCOSENNIUM Blood specimen (specimen) 01/02/2013 5:15 AM EDT 01/02/2013 5:22 AM EDT Narrative Resulting Agency Comment Spec In Lab Haris Jarvis MD HEMATOLOGY ORDERABLE S BAR NOE * NM lung ventilation perfusion (01/01/2013 5:52 PM EDT) Anatomical Region Laterality Modality Other 01/01/2013 5:52 PM EDT Narrative 01/01/2013 6:06 PM EDT Examination LUNG VENTILATION PERFUSION Clinical History Has b/l DVT. ?PEs, ?microthrombi s/p TTP Comparison Chest x-ray 01/01/2013. Technique Following in inhalation of 1mCi of technetium-99m DTPA aerosol, ventilation images of the lungs were obtained in the anterior, posterior, lateral and oblique projections. This was followed by the intravenous administration of 4mCi of technetium-99m macroaggregated albumen. Perfusion images of the lungs were then obtained in the same projections. Findings Moderate to large sized perfusion defects with no corresponding ventilation abnormality are seen in the right lateral basal ??and left lateral basal segments. ??Normal activity in all other regions of the lungs on both perfusion and ventilation scans. Impression The above findings represent a high probability for the presence of pulmonary emboli. Procedure Note Haris Taylor MD - 01/01/2013 Examination LUNG VENTILATION PERFUSION Clinical History Has b/l DVT. ?PEs, ?microthrombi s/p TTP Comparison Chest x-ray 01/01/2013. Technique Following in inhalation of 1mCi of technetium-99m DTPA aerosol,ventilation images of the lungs were obtained in the anterior, posterior, lateral and oblique projections. This was followed by the intravenous administrationof 4mCi of technetium-99m macroaggregated albumen. Perfusion images of thelungs were then obtained in the same projections. Findings Moderate to large sized perfusion defects with no correspondingventilation abnormality are seen in the right lateral basal and left lateral basal segments. Normal activity in all other regions of the lungs on bothperfusion and ventilation scans. Impression The above findings represent a high probability for the presence ofpulmonary emboli. Dipak Robertson MD IMG NM ORDERABLES * XR chest routine PA & lateral (01/01/2013 11:41 AM EDT) Anatomical Region Laterality Modality Chest N/A Radiographic Oanh ging 01/01/2013 11:4 1 AM EDT Narrative 01/01/2013 11:50 AM EDT Examination CHEST ROUTINE 2 VIEWS Clinical History CHF, hypoxia ? resolution pulm edema nd pleural effusions Comparison 12/30/2012. Technique Findings There is a slightly better degree of inflation, especially of the lower lung zones. ??There is no other interval change. ??Again noted are the bilateral pleural effusions, which obscure the extreme lung bases. ??The remainder of the lungs are grossly clear. Specifically, there is no significant degree of pulmonary edema. ?? Impression Slightly improved inflation and no significant pulmonary edema. Persistent bilateral pleural effusions. Procedure Note Amilcar Bonner MD - 01/01/2013 Examination CHEST ROUTINE 2 VIEWS Clinical History CHF, hypoxia ? resolution pulm edema nd pleural effusions Comparison 12/30/2012. Technique Findings There is a slightly better degree of inflation, especially of the lowerlung zones. There is no other interval change. Again noted are the bilateral pleural effusions, which obscure the extreme lung bases. The remainder ofthe lungs are grossly clear. Specifically, there is no significant degree of pulmonary edema. Impression Slightly improved inflation and no significant pulmonary edema. Persistent bilateral pleural effusions. MD SOFIA Maharaj DX ORDERABLES * EKG 12 Lead (01/01/2013 9:22 AM EDT) Ventricular rate 79 BPM MUSE SYSTEM Atrial Rate 79 BPM MUSE SYSTEM P-R Interval 120 ms MUSE SYSTEM QRS Duration 76 ms MUSE SYSTEM Q-T Interval 500 ms MUSE SYSTEM QTC Calculated (Bezet) 573 ms MUSE SYSTEM Calculated P [place] 61 degrees MUSE SYSTEM Calculated R [place] 50 degrees MUSE SYSTEM Calculated T [place] 162 degrees MUSE SYSTEM INTERPRETATION Normal sinus rhythm T wave abnormality, consider lateral ischemia Prolonged QT Abnormal ECG When compared with ECG of 20-DEC-2012 14:21, Non-specific change in ST segment in Anterior leads Nonspecific T wave abnormality no longer evident in Anterior leads Inverted T waves have replaced nonspecific T wave abnormality in Lateral leads QT has lengthened Confirmed by MD [place], Dony Tripathi ([id number]) on 01/01/2013 9:48:07 AM MUSE SYSTEM 01/01/2013 9:22 AM EDT 01/01/2013 9:48 AM EDT Haris Jarvis MD ECG ORDERABLES Performing Organization Address City/[facility]/ZIP Co de Phone Number MUSE SYSTEM * Free Thyroxine Index (01/01/2013 4:25 AM EDT) [facility] FTI 7.6 4.5 - 9.5 mcg/dL [facility] Comment: Females: 5. 5-10.5 mcg/dL Blood specimen (specimen) 01/01/2013 4:25 AM EDT 01/01/2013 9:00 AM EDT Narrative Resulting Agency Comment Spec In Lab Haris Jarvis MD CHEMISTRY ORDERABLES Performing Organization Address City/State/[facility] Co de Phone Number [facility] * T4 (01/01/2013 4:25 AM EDT) [facility] T4, total 7.6 5.1 - 10.8 mcg/dL [facility] Comment: Reference Range: [place] Blood: ??6.9-14.4 mcg/dL Females: ??7.2-14.2 mcg/dL Pediatric ranges: ??Interpret with caution-ranges have not been verified Blood specimen (specimen) 01/01/2013 4:25 AM EDT 01/01/2013 9:00 AM EDT Narrative Resulting Agency Comment Spec In Lab Haris Jarvis MD CHEMISTRY ORDERABLES Performing Organization Address City/[facility] Co de Phone Number BAR NOE * T Uptake (01/01/2013 4:25 AM EDT) T Uptake 1.00 0.80 - 1.30 ratio [facility] Comment: Tup assay is directly proportional to Thyroid binding protein concentration, thus FT4 Index = TT4/Tup. [place] Blood Reference Range: ??0.74-1.28. Blood specimen (specimen) 01/01/2013 4:25 AM EDT 01/01/2013 9:00 AM EDT Narrative Resulting Agency Comment Spec In Lab Haris Jarvis MD CHEMISTRY ORDERABLES Performing Organization Address [facility] de Phone Number BAR [facility] * T3 (01/01/2013 4:25 AM EDT) T3, Total 89 75 - 170 ng/dL [facility] Blood specimen (specimen) 01/01/2013 4:25 AM EDT 01/01/2013 9:00 AM EDT Narrative Resulting Agency Comment Spec In Lab Haris Jarvis MD CHEMISTRY ORDERABLES Performing Organization Address [facility] Co de Phone Number BAR NOE * TSH (01/01/2013 4:25 AM EDT) TSH 1.38 0.27 - 4.20 mcIU/mL [facility] Blood specimen (specimen) 01/01/2013 4:25 AM EDT 01/01/2013 9:00 AM EDT Narrative Resulting Agency Comment Spec In Lab Haris Jarvis MD CHEMISTRY ORDERABLES Performing Organization Address City/[facility] Co de Phone Number BAR [facility] * T4, free (01/01/2013 4:25 AM EDT) Free T4 1.15 0.90 - 1.60 ng/dL [facility] Blood specimen (specimen) 01/01/2013 4:25 AM EDT 01/01/2013 4:33 AM EDT Narrative Resulting Agency Comment Spec In Lab Haris Jarvis MD CHEMISTRY ORDERABLES [facility] * (ABNORMAL) Lipid panel (fasting) (01/01/2013 4:25 AM EDT) Pathologist [facility] Chol, Total 143 <=199 mg/dL [facility] Comment: Recommendations of the NCEP Adult Treatment Panel for the following risk cutoff thresholds for the [place] population: Desirable: <200 mg/dL Borderline High: 200-239 mg/dL High: > or = 240 mg/dL Triglycerides 118 <=149 mg/dL [facility] Comment: Reference Range: Normal triglycerides: ??<150 mg/dL Borderline high: ??150-199 mg/dL High: ??200-499 mg/dL Very high: ??>fp=027 mg/dL SNEHA 2001; 285(19):7433-3817 HDL 38(L) >=40 mg/dL [facility] Comment: Reference range: ??Low HDL: ?? < 40 mg/dL ??Normal: ?40-60 mg/dL ??Desirable: > 60 mg/dL SNEHA 2001; 285(19):5985-7289 LDL Cholesterol 81 <=99 mg/dL [facility] Comment: Reference range: ?? Optimal: ?<100 mg/dL ?? Near Optimal/Above Optimal: ?? 100-129 mg/dL ?? Borderline high: ?130-159 mg/dL ?? High: ? 160-189 mg/dL ?? Very high: ?>ng=793 mg/dL SNEHA 2001: 285(19):8802-0330 Chol/HDL Ratio 3.8 ratio CERNE R MILLENNIUM Comment: A Cholesterol to HDL ratio below 4:1 is desirable. ??Studies suggest that increased CAD risk occurs at ratios above 5 for females and above 6 for men. ? [place] [employer] Association ??(http://www.americanheart.org) ? Mariela Int Med, 1994; 121:641 ? AM J Med, 1998; 105(1A):48S Blood specimen (specimen) 01/01/2013 4:25 AM EDT 01/01/2013 4:33 AM EDT Narrative Resulting Agency Comment Spec In Lab Haris Jarvis MD CHEMISTRY ORDERABLES CERNER MILLENNIUM * (ABNORMAL) Differential, Automated (01/01/2013 4:25 AM EDT) Neutrophils % 67.8 34.0 - 71.0 % CERNER MILLENNIUM Neutr Abs (ANC) 3.42 1.50 - 6.30 x10(3)/mc L CERNER MILLENNIUM Lymphocytes % 17.1(L) 19.0 - 53.0 % CERNER MILLENNIUM Lymphocytes Abs 0.9(L) 1.0 - 3.6 x10(3)/mc L CERNER MILLENNIUM Monocytes % 11.1 4.0 - 13.0 % CERNER MILLENNIUM Monocyte Abs 0.6 0.2 - 1.0 x10(3)/mc L CERNER MILLENNIUM Eosinophils % 3.0 0.0 - 7.0 % CERNER MILLENNIUM Eosinophils Abs 0.2 0.0 - 0.5 x10(3)/mc L CERNER MILLENNIUM Basophils % 0.8 0.0 - 2.0 % CERNER MILLENNIUM Basophils Abs 0.0 0.0 - 0.2 x10(3)/mc L CERNER MILLENNIUM Immature Gran % 0.20 0.00 - 0.66 % CERNER MILLENNIUM Comment: Immature granulocytes(IG's)percentage and absolute count will include metamyelocytes, myelocytes, and promyelocytes. Blood smears from CBCs yielding IG's will be scanned manually for concordance. If this scan disagrees with the automated IG or if promyelocytes are noted, a manual differential will be performed. Petty Gran Abs 0.01 0.00 - 0.05 x10(3)/mc L [facility] Blood specimen (specimen) 01/01/2013 4:25 AM EDT 01/01/2013 4:28 AM EDT Haris Jarvis MD HEMATOLOGY ORDERABLE S Performing Organization Address [facility] de Phone Number [facility] * (ABNORMAL) pro-Brain Natriuretic Peptide (01/01/2013 4:25 AM EDT) Pathologist [facility] ProBNP 11836(H) <=125 pg/mL [facility] Blood specimen (specimen) 01/01/2013 4:25 AM EDT 01/01/2013 4:28 AM EDT Narrative Resulting Agency Comment Spec In Lab Haris Jarvis MD CHEMISTRY ORDERABLES Performing Organization Address [facility] Phone Number [facility] * (ABNORMAL) Lactate Dehydrogenase (01/01/2013 4:25 AM EDT) Pathologist [facility] LDH 235(H) 110 - 220 unit/L [facility] Blood specimen (specimen) 01/01/2013 4:25 AM EDT 01/01/2013 4:28 AM EDT Narrative Resulting Agency Comment Spec In Lab Haris Jarvis MD CHEMISTRY ORDERABLES Performing Organization Address [facility] Phone Number [facility] * (ABNORMAL) BMP w/fasting Glucose (01/01/2013 4:25 AM EDT) Glucose Fasting 95 65 - 99 mg/dL [facility] Comment: ?Fasting* Glucose Interpretive Criteria Normal ?65-99 mg/dL Impaired Fasting glucose ?100-125 mg/dL Consistent with Diabetes Mellitus ? >or= 126 mg/dL *Fasting is defined as no caloric intake for at least 8 hours In the absence of unequivocal hyperglycemia a plasma glucose value of >or= 126 mg/dL should be repeated on a subsequent day. Diagnosis and Classification of Diabetes Mellitus, Position Statement from the [place] [employer]. ??Diabetes Care, Volume 33, Supplement 1, Jun 2009 BUN 11 8 - 18 mg/dL CERNER MILLENNIUM Creatinine 2.06(H) 0.70 - 1.20 mg/dL CERNER MILLENNIUM Comment: Please note that the pediatric reference intervals supplied above were not validated at [facility]. Results from pediatric patients should be interpreted in conjunction to the patient's age, height and muscle mass. Sodium 138 135 - 145 mmol/L CERNER MILLENNIUM Potassium 3.4(L) 3.5 - 5.0 mmol/L CERNER MILLENNIUM Comment: Please note: ??Patients with WBC >100,000 may have falsely elevated Potassium levels. ??For accurate Potassium quantification in these patients send serum separator tube (gold top) for subsequent determinations. ??Contact the Clinical Chemistry Laboratory if there are any questions. Chloride 100 98 - 107 mmol/L CERNER MILLENNIUM CO2 27 22 - 31 mmol/L CERNER MILLENNIUM Anion Gap 11 5 - 15 mmol/L CERNER MILLENNIUM Calcium 9.1 8.5 - 10.5 mg/dL CERNER MILLENNIUM Estimated GFR 25(L) >=60 CERNER MILLENNIUM Comment: This estimated GFR [...] internet browser. http://www.nkdep.nih.gov/lab-evaluation.shtml http://www.kidney.org/professionals/ Blood specimen (specimen) 01/01/2013 4:25 AM EDT 01/01/2013 4:28 AM EDT Narrative Resulting Agency Comment Spec In Lab Haris Jarvis MD CHEMISTRY ORDERABLES Performing Organization Address [facility] de Phone Number BAR NOE * (ABNORMAL) Cardiac Enzymes (01/01/2013 4:25 AM EDT) Troponin-T 0.06(H) <=0.03 ng/mL ELLIOTELIO [facility] Comment: 0.03 ng/mL: Represents the 99th percentile upper reference limit for normals. >0.03 ng/mL: Elevated cardiac troponin T level indicative of myocardial damage. Diagnosis of acute, evolving or recent PA requires a typical rise and gradual fall of cTnT with at least ONE of the following: a) Ischemic symptoms b) Development of pathologic Q waves on the ECG c) ECG changes indicative of eschemia (S-T segment elevation/depression) d) Coronary artery intervention Serial bloods should be obtained for testing on admission, at 6 to 9 hrs and again at 12 to 24 hrs if earlier samples are negative and the clinical index of suspicion is high. Reference: [Myocardial infarction redefined a consensus document of the Joint Society of Cardiology/[place] [employer] Cardiology Committee for the redefinition of myocardial infarction. Journal of the [place] College [employer]iology 2000; 36: 959-969] CK, Total 35 0 - 160 unit/L BAR katena Blood specimen (specimen) 01/01/2013 4:25 AM EDT 01/01/2013 4:28 AM EDT Narrative Resulting Agency Comment Spec In Lab Haris Jarvis MD CHEMISTRY ORDERABLES Performing Organization Address [facility] de Phone Number BAR NOE * (ABNORMAL) Prothrombin Time (01/01/2013 4:25 AM EDT) PT 21.4(H) 12.0 - 15.0 sec ELLIOTELIO NOE Comment: [facility] Transfusion Committee Guidelines: INR less than 2.0, PTT less than OR equal to 43.5 seconds, or Fibrinogen greater than or equal to 100 mg/dl indicate adequate procoagulant activity for hemostasis in patients without underlying bleeding disorders. INR 1.8(H) 0.9 - 1.1 CERNER MILLENNIUM Blood specimen (specimen) 01/01/2013 4:25 AM EDT 01/01/2013 4:28 AM EDT Narrative Resulting Agency Comment Spec In Lab Haris Jarvis MD HEMATOLOGY ORDERABLE S CERELIO MILLENNIUM * (ABNORMAL) CBC (with Diff) (01/01/2013 4:25 AM EDT) WBC 5.0 4.0 - 10.0 x10(3)/mcL CERNER MILLENNIUM RBC 2.92(L) 3.93 - 5.22 x10(6)/mcL CERNER MILLENNIUM Hemoglobin 8.8(L) 11.2 - 15.7 gm/dL CERNER MILLENNIUM Hematocrit 26.3(L) 34.0 - 45.0 % CERNER MILLENNIUM MCV 90.1 79.0 - 94.0 fL CERNER MILLENNIUM MCH 30.1 26.6 - 32.2 pg CERNER MILLENNIUM MCHC 33.5 32.0 - 36.5 gm/dL CERNER MILLENNIUM Platelets 247 145 - 370 x10(3)/mcL CERNER MILLENNIUM RDWSD 50.5(H) 35.0 - 46.0 fL CERNER MILLENNIUM RDWCV 15.4(H) 10.9 - 14.4 % CERNER MILLENNIUM MPV 10.2 9.0 - 12.0 fL CERNER MILLENNIUM Blood specimen (specimen) 01/01/2013 4:25 AM EDT 01/01/2013 4:28 AM EDT Narrative Resulting Agency Comment Spec In Lab Haris Jarvis MD HEMATOLOGY ORDERABLE S BAR ARCOSENNIUM * (ABNORMAL) Cardiac Enzymes (12/31/2012 7:55 PM EDT) Troponin-T 0.06(H) <=0.03 ng/mL CERNER MILLENNIUM Comment: 0.03 ng/mL: Represents the 99th percentile upper reference limit for normals. >0.03 ng/mL: Elevated cardiac troponin T level indicative of myocardial damage. Diagnosis of acute, evolving or recent PA requires a typical rise and gradual fall of cTnT with at least ONE of the following: a) Ischemic symptoms b) Development of pathologic Q waves on the ECG c) ECG changes indicative of eschemia (S-T segment elevation/depression) d) Coronary artery intervention Serial bloods should be obtained for testing on admission, at 6 to 9 hrs and again at 12 to 24 hrs if earlier samples are negative and the clinical index of suspicion is high. Reference: [Myocardial infarction redefined a consensus document of the Joint Society of Cardiology/[place] [employer]iology Committee for the redefinition of myocardial infarction. Journal of the [place] College [employer]iology 2000; 36: 959-969] CK, Total 46 0 - 160 unit/L ELLIOTELIO ARCOSMEKHI Blood specimen (specimen) 12/31/2012 7:55 PM EDT 12/31/2012 8:03 PM EDT Narrative Resulting Agency Comment Spec In Lab Haris Jarvis MD CHEMISTRY ORDERABLES BAR ARCOSMiNeeds * Echo Transthoracic (Complete) (12/31/2012 3:06 PM EDT) EF 40 HEARTLAB SYSTEM Anatomical Region Laterality Modality Other 12/31/2012 Narrative 12/31/2012 3:46 PM EDT Procedure: ? Transthoracic Echocardiogram Patient: ? KAREEM BENOIT N ? (Age): 1960(52) Med Rec#: ?[id number] ? Sex: ?F ? Site Loc: ?[facility] ? Ht / Wt: ??170(cm)/64(kg) Pt. Loc: ? Adult Floor ?BSA: ?1.74 Study Date: ?12/31/2012 ? Pt. Type: Inpatient Tape: ? Referring: Haris Jarvis Referring: TAMYM BAE Coil Connector Repairer: Rob Rubalcava [facility] Interpreting Fellow: Regis Silva ([id number]) Diagnosis: ??Shortness of breath (786.05) CPT Code(s): ??Echo Full (90864), ??Spectral Doppler (14233), ??Color Doppler (57774), Indication(s): ??Shortness of breath Rhythm: HR ?BP ?160/94 ?? SUMMARY: 1. The left ventricular chamber size is normal. Left ventricular wall thickness is normal. There is diffuse hypokinesis present with some variation in segmental function. Global left ventricular systolic function is moderately reduced. ??Ejection fraction is estimated to be 40%. 2. Right ventricular chamber size, wall thickness, and systolic function are within normal limits. 3. There is no hemodynamically significant valve disease. 4. The estimated pulmonary artery systolic pressure is 52 mmHg. There is evidence that pulmonary hypertension may be underestimated. 5. See remainder of report for additional findings. FINDINGS: Left Ventricle ?The left ventricular chamber size is normal. ?Left ventricular wall thickness is normal. ?Global left ventricular systolic function is moderately reduced. Ejection fraction is estimated to be 40%. ?There is diffuse hypokinesis present. ?The ??basal anteroseptal, basal anterior, basal anterolateral, basal inferolateral, basal inferior, basal inferoseptal, mid anteroseptal, mid anterior, mid anterolateral, mid inferolateral, mid inferior, mid inferoseptal, apical septal, apical anterior, apical lateral and apical inferior wall segments are hypokinetic. Left Atrium ?The left atrium is normal in size. Right Ventricle ?Right ventricular chamber size, wall thickness, and systolic function are within normal limits. ?There is evidence that pulmonary hypertension may be underestimated. ?The estimated pulmonary artery systolic pressure is 52 mmHg. ?The estimated right atrial pressure is 8 mmHg. Right Atrium ?The right atrium is normal in size. Aortic Valve ?The aortic valve is trileaflet. The leaflets are thin with normal excursion. There is no aortic stenosis or regurgitation present. Mitral Valve ?The mitral valve appears normal in structure and function. ?There is evidence of ruptured chordae. ?There is mild (1+/4+) mitral regurgitation present. Tricuspid Valve ?The tricuspid valve appears normal in structure and function. ?There is mild (1+/4+) tricuspid regurgitation present. Pulmonic Valve ?The pulmonic valve is not well visualized. ?There is trace pulmonic regurgitation present. Pericardium ?A trivial pericardial effusion is visualized. ?Bilateral pleural effusions are present. Aorta ?The aortic root is normal in size. ?The ascending aorta is normal in size. Pulmonary Artery ?The main pulmonary artery appears normal. Venous ?The inferior vena cava appears dilated. ?There is a greater than 50% respiratory change in the inferior vena cava dimension. Misc ?Two-dimensional echo, spectral Doppler and color Doppler performed. Wall Motion: Segment Name ?Rest ? Base-Anteroseptal ?? Hypokinetic ? Base-Anterior ? Hypokinetic ? Base-Anterolateral ??Hypokinetic ? Base-Posterolateral Hypokinetic ? Base-Inferior ? Hypokinetic ? Base-Inferoseptal ?? Hypokinetic ? Mid-Anteroseptal ?Hypokinetic ? Mid-Anterior ?Hypokinetic ? Mid-Anterolateral ?? Hypokinetic ? Mid-Posterolateral ??Hypokinetic ? Mid-Inferior ?Hypokinetic ? Mid-Inferoseptal ?Hypokinetic ? Victor-Septal ? Hypokinetic ? Victor-Anterior ? Hypokinetic ? Victor-Lateral ?Hypokinetic ? Victor-Inferior ? Hypokinetic ? Victor-Tip ?Hypokinetic ? Chambers ?Value ?Units (Range) ? EF ??Bi-p Simp ? 40 ? % (55 to 80) ? IVSd 2D ? 0.7 ?cm ? LVIDd 2D ?4.9 ?cm ? PWd 2D ?1 ?cm ? LVIDs 2D ?4.2 ?cm ? LVFS 2D ? 14 ? % ? LA area ? 18 ? cm2 (<21) ? RA area ? 14 ? cm2 (<18) ? Ao root ? 3.5 ?cm (2.1 to 3.6) ? Asc Ao ?2.8 ?cm (2 to 3.5) ? Mitral Valve ?Value ?Units (Range) ? E peak ?0.8 ?m/sec ? E/A ratio ? 1.6 ?ratio ? MVDT ?123 ?msec ? E1 ?0.07 ? m/sec ? E/E1 ?12 ? ratio ? Tricuspid/Pulmonic Valves ?Value ?Units (Range) ? TR peak peggy ? 3.3 ?m/sec ? RAP ? 8 ?mmHg ? RVSP/PASP ? 52 ? mmHg ? This report has been electronically signed by: Adolph Garcia MD ? 12/31/2012 15:45:49 Images reviewed and interpretation verified [facility] Cardiac Ultrasound Laboratory Procedure Note Adolph Garcia MD - 12/31/2012 Procedure: Transthoracic Echocardiogram Patient: KAREEM Kay (Age): 1960(52) Med Rec#: [id number] Sex: F Site Loc: [facility] Ht / Wt: 170(cm)/64(kg) Pt. Loc: Adult Floor BSA: 1.74 Study Date: 12/31/2012 Pt. Type: Inpatient Tape: Referring: Haris Jarvis Referring: TAMMY BAE Coil Connector Repairer: Rob Rubalcava STEFFANIE Interpreting Fellow: Regis Silva ([id number]) Diagnosis: Shortness of breath (786.05) CPT Code(s): Echo Full (67441), Spectral Doppler (03051), Color Doppler (93230), Indication(s): Shortness of breath Rhythm: HR BP 160/94 SUMMARY: 1. The left ventricular chamber size is normal. Left ventricular wall thickness is normal. There is diffuse hypokinesis present with some variation in segmental function. Global left ventricular systolic function is moderately reduced. Ejection fraction is estimated to be 40%. 2. Right ventricular chamber size, wall thickness, and systolic function are within normal limits. 3. There is no hemodynamically significant valve disease. 4. The estimated pulmonary artery systolic pressure is 52 mmHg. There is evidence that pulmonary hypertension may be underestimated. 5. See remainder of report for additional findings. FINDINGS: Left Ventricle The left ventricular chamber size is normal. Left ventricular wall thickness is normal. Global left ventricular systolic function is moderately reduced. Ejection fraction is estimated to be 40%. There is diffuse hypokinesis present. The basal anteroseptal, basal anterior, basal anterolateral, basal inferolateral, basal inferior, basal inferoseptal, mid anteroseptal, mid anterior, mid anterolateral, mid inferolateral, mid inferior, mid inferoseptal, apical septal, apical anterior, apical lateral and apical inferior wall segments are hypokinetic. Left Atrium The left atrium is normal in size. Right Ventricle Right ventricular chamber size, wall thickness, and systolic function are within normal limits. There is evidence that pulmonary hypertension may be underestimated. The estimated pulmonary artery systolic pressure is 52 mmHg. The estimated right atrial pressure is 8 mmHg. Right Atrium The right atrium is normal in size. Aortic Valve The aortic valve is trileaflet. The leaflets are thin with normal excursion. There is no aortic stenosis or regurgitation present. Mitral Valve The mitral valve appears normal in structure and function. There is evidence of ruptured chordae. There is mild (1+/4+) mitral regurgitation present. Tricuspid Valve The tricuspid valve appears normal in structure and function. There is mild (1+/4+) tricuspid regurgitation present. Pulmonic Valve The pulmonic valve is not well visualized. There is trace pulmonic regurgitation present. Pericardium A trivial pericardial effusion is visualized. Bilateral pleural effusions are present. Aorta The aortic root is normal in size. The ascending aorta is normal in size. Pulmonary Artery The main pulmonary artery appears normal. Venous The inferior vena cava appears dilated. There is a greater than 50% respiratory change in the inferior vena cava dimension. [facility], spectral Doppler and color Doppler performed. Wall Motion: Segment Name Rest Base-Anteroseptal Hypokinetic Base-Anterior Hypokinetic Base-Anterolateral Hypokinetic Base-Posterolateral Hypokinetic Base-Inferior Hypokinetic Base-Inferoseptal Hypokinetic Mid-Anteroseptal Hypokinetic Mid-Anterior Hypokinetic Mid-Anterolateral Hypokinetic Mid-Posterolateral Hypokinetic Mid-Inferior Hypokinetic Mid-Inferoseptal Hypokinetic Victor-Septal Hypokinetic Victor-Anterior Hypokinetic Victor-Lateral Hypokinetic Victor-Inferior Hypokinetic Victor-Tip Hypokinetic Chambers Value Units (Range) EF Bi-p Simp 40 % (55 to 80) IVSd 2D 0.7 cm LVIDd 2D 4.9 cm PWd 2D 1 cm LVIDs 2D 4.2 cm LVFS 2D 14 % LA area 18 cm2 (<21) RA area 14 cm2 (<18) Ao root 3.5 cm (2.1 to 3.6) Asc Ao 2.8 cm (2 to 3.5) Mitral Valve Value Units (Range) E peak 0.8 m/sec E/A ratio 1.6 ratio MVDT 123 msec E1 0.07 m/sec E/E1 12 ratio Tricuspid/Pulmonic Valves Value Units (Range) TR peak peggy 3.3 m/sec RAP 8 mmHg RVSP/PASP 52 mmHg This report has been electronically signed by: Adolph Garcia MD 12/31/2012 15:45:49 Images reviewed and interpretation verified [facility] Cardiac Ultrasound Laboratory Haris Jarvis MD ECHO ORDERABLES * Differential, Automated (12/31/2012 4:00 AM EDT) Neutrophils % 65.7 34.0 - 71.0 % CERNER MILLENNIUM Neutr Abs (ANC) 4.74 1.50 - 6.30 x10(3)/mcL CERNER MILLENNIUM Lymphocytes % 22.2 19.0 - 53.0 % CERNER MILLENNIUM Lymphocytes Abs 1.6 1.0 - 3.6 x10(3)/[facility] CERNER MILLENNIUM Monocytes % 8.9 4.0 - 13.0 % [facility] MILLENNIUM Monocyte Abs 0.6 0.2 - 1.0 x10(3)/[facility] Eosinophils % 2.5 0.0 - 7.0 % [facility] MILLENNIUM Eosinophils Abs 0.2 0.0 - 0.5 x10(3)/[facility] MILLENNIUM Basophils % 0.4 0.0 - 2.0 % [facility] MILLENNIUM Basophils Abs 0.0 0.0 - 0.2 x10(3)/[facility] CERNER MILLENNIUM Immature Gran % 0.30 0.00 - 0.66 % [facility] Comment: Immature granulocytes(IG's)percentage and absolute count will include metamyelocytes, myelocytes, and promyelocytes. Blood smears from CBCs yielding IG's will be scanned manually for concordance. If this scan disagrees with the automated IG or if promyelocytes are noted, a manual differential will be performed. Petty Gran Abs 0.02 0.00 - 0.05 x10(3)/[facility] Blood specimen (specimen) 12/31/2012 4:00 AM EDT 12/31/2012 4:32 AM EDT Haris Jarvis MD HEMATOLOGY ORDERABLE S [facility] * (ABNORMAL) BMP w/fasting Glucose (12/31/2012 4:00 AM EDT) Glucose Fasting 97 65 - 99 mg/dL [facility] Comment: ?Fasting* Glucose Interpretive Criteria Normal ?65-99 mg/dL Impaired Fasting glucose ?100-125 mg/dL Consistent with Diabetes Mellitus ? >or= 126 mg/dL *Fasting is defined as no caloric intake for at least 8 hours In the absence of unequivocal hyperglycemia a plasma glucose value of >or= 126 mg/dL should be repeated on a subsequent day. Diagnosis and Classification of Diabetes Mellitus, Position Statement from the [place] [employer]. ??Diabetes Care, Volume 33, Supplement 1, Jun 2009 BUN 11 8 - 18 mg/dL CERNER MILLENNIUM Creatinine 2.14(H) 0.70 - 1.20 mg/dL CERNER MILLENNIUM Comment: Please note that the pediatric reference intervals supplied above were not validated at [facility]. Results from pediatric patients should be interpreted in conjunction to the patient's age, height and muscle mass. Sodium 139 135 - 145 mmol/L CERNER MILLENNIUM Potassium 4.2 3.5 - 5.0 mmol/L CERNER MILLENNIUM Comment: result rechecked-RF Please note: ??Patients with WBC >100,000 may have falsely elevated Potassium levels. ??For accurate Potassium quantification in these patients send serum separator tube (gold top) for subsequent determinations. ??Contact the Clinical Chemistry Laboratory if there are any questions. Chloride 103 98 - 107 mmol/L CERNER MILLENNIUM CO2 25 22 - 31 mmol/L CERNER MILLENNIUM Anion Gap 11 5 - 15 mmol/L CERNER MILLENNIUM Calcium 8.9 8.5 - 10.5 mg/dL CERNER MILLENNIUM Estimated GFR 24(L) >=60 CERNER MILLENNIUM Comment: This estimated GFR [...] internet browser. http://www.nkdep.nih.gov/lab-evaluation.shtml http://www.kidney.org/professionals/ Blood specimen (specimen) 12/31/2012 4:00 AM EDT 12/31/2012 4:32 AM EDT Narrative Resulting Agency Comment Spec In Lab Haris Jarvis MD CHEMISTRY ORDERABLES [facility] * (ABNORMAL) Prothrombin Time (12/31/2012 4:00 AM EDT) PT 20.3(H) 12.0 - 15.0 sec CERNER MILLENNIUM Comment: [facility] Transfusion Committee Guidelines: INR less than 2.0, PTT less than OR equal to 43.5 seconds, or Fibrinogen greater than or equal to 100 mg/dl indicate adequate procoagulant activity for hemostasis in patients without underlying bleeding disorders. INR 1.7(H) 0.9 - 1.1 CERNER MILLENNIUM Blood specimen (specimen) 12/31/2012 4:00 AM EDT 12/31/2012 4:32 AM EDT Narrative Resulting Agency Comment Spec In Lab Haris Jarvis MD HEMATOLOGY ORDERABLE S [facility] * (ABNORMAL) CBC (with Diff) (12/31/2012 4:00 AM EDT) WBC 7.2 4.0 - 10.0 x10(3)/mcL CERNER MILLENNIUM RBC 3.07(L) 3.93 - 5.22 x10(6)/mcL CERNER MILLENNIUM Hemoglobin 9.1(L) 11.2 - 15.7 gm/dL [facility]ERN[facility] MILLENNIUM Hematocrit 27.8(L) 34.0 - 45.0 % CERNER MILLENNIUM MCV 90.6 79.0 - 94.0 fL CERNER MILLENNIUM MCH 29.6 26.6 - 32.2 pg CERNER MILLENNIUM MCHC 32.7 32.0 - 36.5 gm/dL CERNER MILLENNIUM Platelets 317 145 - 370 x10(3)/mcL CERNER MILLENNIUM RDWSD 51.8(H) 35.0 - 46.0 fL CERNER MILLENNIUM RDWCV 15.6(H) 10.9 - 14.4 % CERNER MILLENNIUM MPV 10.9 9.0 - 12.0 fL CERN[facility] MILLENNIUM Blood specimen (specimen) 12/31/2012 4:00 AM EDT 12/31/2012 4:32 AM EDT Narrative Resulting Agency Comment Spec In Lab Haris Jarvis MD HEMATOLOGY ORDERABLE S [facility] * (ABNORMAL) Differential, Automated (12/30/2012 4:17 PM EDT) Neutrophils % 71.3(H) 34.0 - 71.0 % CERNER MILLENNIUM Neutr Abs (ANC) 4.46 1.50 - 6.30 x10(3)/mc L [facility] MILLENNIUM Lymphocytes % 16.6(L) 19.0 - 53.0 % [facility] MILLENNIUM Lymphocytes Abs 1.0 1.0 - 3.6 x10(3)/mc L CERNER MILLENNIUM Monocytes % 9.1 4.0 - 13.0 % [facility] MILLENNIUM Monocyte Abs 0.6 0.2 - 1.0 x10(3)/mc L CERNER MILLENNIUM Eosinophils % 2.4 0.0 - 7.0 % C[facility] MILLENNIUM Eosinophils Abs 0.2 0.0 - 0.5 x10(3)/mc L CERNER MILLENNIUM Basophils % 0.3 0.0 - 2.0 % CERNER MILLENNIUM Basophils Abs 0.0 0.0 - 0.2 x10(3)/mc L CERNER MILLENNIUM Immature Gran % 0.30 0.00 - 0.66 % CERNER MILLENNIUM Comment: Immature granulocytes(IG's)percentage and absolute count will include metamyelocytes, myelocytes, and promyelocytes. Blood smears from CBCs yielding IG's will be scanned manually for concordance. If this scan disagrees with the automated IG or if promyelocytes are noted, a manual differential will be performed. Petty Gran Abs 0.02 0.00 - 0.05 x10(3)/mc L CERNER MILLENNIUM Blood specimen (specimen) 12/30/2012 4:17 PM EDT 12/30/2012 4:30 PM EDT Haris Jarvis MD HEMATOLOGY ORDERABLE S [facility] * (ABNORMAL) CBC (with Diff) (12/30/2012 4:17 PM EDT) WBC 6.3 4.0 - 10.0 x10(3)/mcL CERNER MILLENNIUM RBC 2.96(L) 3.93 - 5.22 x10(6)/mcL CERNER MILLENNIUM Hemoglobin 9.1(L) 11.2 - 15.7 gm/dL [facility] Hematocrit 26.5(L) 34.0 - 45.0 % [facility] MCV 89.5 79.0 - 94.0 fL CERNER MILLENNIUM MCH 30.7 26.6 - 32.[address] [facility] MCHC 34.3 32.0 - 36.5 gm/dL [facility] Platelets 289 145 - 370 x10(3)/mcL CERNER MILLENNIUM RDWSD 50.5(H) 35.0 - 46.[address] [facility] RDWCV 15.5(H) 10.9 - 14.4 % [facility] MPV 10.5 9.0 - 12.0 fL [facility] MILLENNIUM Blood specimen (specimen) 12/30/2012 4:17 PM EDT 12/30/2012 4:30 PM EDT Narrative Resulting Agency Comment Spec In Lab Haris Jarvis MD HEMATOLOGY ORDERABLE S [facility] * (ABNORMAL) BMP w/fasting Glucose (12/30/2012 4:17 PM EDT) Glucose Fasting 100(H) 65 - 99 mg/dL [facility] MILLENNIUM Comment: ?Fasting* Glucose Interpretive Criteria Normal ?65-99 mg/dL Impaired Fasting glucose ?100-125 mg/dL Consistent with Diabetes Mellitus ? >or= 126 mg/dL *Fasting is defined as no caloric intake for at least 8 hours In the absence of unequivocal hyperglycemia a plasma glucose value of >or= 126 mg/dL should be repeated on a subsequent day. Diagnosis and Classification of Diabetes Mellitus, Position Statement from the [place] [employer]. ??Diabetes Care, Volume 33, Supplement 1, Jun 2009 BUN 11 8 - 18 mg/dL CERNER MILLENNIUM Creatinine 2.02(H) 0.70 - 1.20 mg/dL CERNER MILLENNIUM Comment: Please note that the pediatric reference intervals supplied above were not validated at [facility]. Results from pediatric patients should be interpreted in conjunction to the patient's age, height and muscle mass. Sodium 139 135 - 145 mmol/L CERNER MILLENNIUM Potassium 3.0(Criti lenard) 3.5 - 5.0 mmol/L CERNER MILLENNIUM Comment: Result rechecked. Called by: lani, Read back by: linda florez, Date/Time:12/30/12 17:20. Please note: ??Patients with WBC >100,000 may have falsely elevated Potassium levels. ??For accurate Potassium quantification in these patients send serum separator tube (gold top) for subsequent determinations. ??Contact the Clinical Chemistry Laboratory if there are any questions. Chloride 102 98 - 107 mmol/L CERNER MILLENNIUM CO2 25 22 - 31 mmol/L CERNER MILLENNIUM Anion Gap 12 5 - 15 mmol/L CERNER MILLENNIUM Calcium 9.1 8.5 - 10.5 mg/dL CERNER MILLENNIUM Estimated GFR 26(L) >=60 CERNER MILLENNIUM Comment: This estimated GFR [...] internet browser. http://www.nkdep.nih.gov/lab-evaluation.shtml http://www.kidney.org/professionals/ Blood specimen (specimen) 12/30/2012 4:17 PM EDT 12/30/2012 4:30 PM EDT Narrative Resulting Agency Comment Spec In Lab Haris Jarvis MD CHEMISTRY ORDERABLES [facility] * XR chest routine PA & lateral (12/30/2012 3:54 PM EDT) Anatomical Region Laterality Modality Chest N/A Radiographic Oanh ging 12/30/2012 3:54 PM EDT Narrative 12/30/2012 4:03 PM EDT Examination CHEST ROUTINE 2 VIEWS Clinical History SOB, new CHF? Comparison 12/20/2012. Technique Findings The previously seen right IJ catheter and PICC catheter have been removed and there is a new left-sided PICC catheter terminating in the SVC. ??There is no other interval change, allowing for the more upright positioning. ??Again seen are bilateral pleural effusions and bibasilar opacities most likely due to a combination of atelectasis and mild pulmonary edema. ??The mid and upper lung zones remain clear. Impression No significant interval change. ?? Persistent pleural effusions and bibasilar atelectasis and pulmonary edema. Interval changes of central lines. Procedure Note Amilcar Bonner MD - 12/30/2012 Examination CHEST ROUTINE 2 VIEWS Clinical History SOB, new CHF? Comparison 12/20/2012. Technique Findings The previously seen right IJ catheter and PICC catheter have been removedand there is a new left-sided PICC catheter terminating in the SVC. There isno other interval change, allowing for the more upright positioning. Againseen are bilateral pleural effusions and bibasilar opacities most likely due toa combination of atelectasis and mild pulmonary edema. The mid and upperlung zones remain clear. Impression No significant interval change. Persistent pleural effusions and bibasilar atelectasis and pulmonaryedema. Interval changes of central lines. Haris Jarvis MD IMG DX ORDERABLES * (ABNORMAL) Prothrombin Time (12/30/2012 3:29 PM EDT) PT 18.9(H) 12.0 - 15.0 sec [facility] Comment: [facility] Transfusion Committee Guidelines: INR less than 2.0, PTT less than OR equal to 43.5 seconds, or Fibrinogen greater than or equal to 100 mg/dl indicate adequate procoagulant activity for hemostasis in patients without underlying bleeding disorders. INR 1.5(H) 0.9 - 1.1 [facility]RAEL[facility] Blood specimen (specimen) 12/30/2012 3:29 PM EDT 12/30/2012 3:39 PM EDT Narrative Resulting Agency Comment Spec In Lab Haris Jarvis MD HEMATOLOGY ORDERABLE S Performing Organization Address [facility] Phone Number [facility] * Vancomycin, trough (12/30/2012 3:29 PM EDT) Vanc Trough 19.2 mg/L ELLIOTELIO ARCOSENNIUM Comment: Therapeutic range for complicated infections such as bacteremia, endocarditis, osteomyelitis, meningitis, and hospital-acquired pneumonia caused by S. aureus: 15-20 mg/L Therapeutic range for other indications: 10-15 mg/L Toxic: >25mg/L Reference: Vancomycin Therapeutic Monitoring: Review and Recommendations from the ASHP, IDSA and SIDP Task Force. ??Am J Health-Syst Pharm. 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 Maximum daily dose of acetaminophen from all sources not to exceed 4,000 mg., Routine Given 01/05/2013 4:42 AM EDT 1,000 mg Given 01/02/2013 11:44 AM EDT 1,000 mg Given 01/01/2013 7:00 AM EDT 1,000 mg alum-mag hydroxide-simeth (MAALOX) 200-200-20 mg/5 mL oral suspension 10 mL 10 mL, Oral, 3 TIMES DAILY PRN, Starting on Sun01/02/13 at 1039, Until 01/05/13 at 1414, Heartburn, Routine Given 01/04/2013 12:46 PM EDT 10 mLs Given 01/03/2013 12:18 PM EDT 10 mLs Given 01/03/2013 5:33 AM EDT 10 mLs amlodipine (NORVASC) tablet 5 mg 5 mg, Oral, DAILY, First dose on Sun12/31/12 at 1430, Until Discontinued, Routine Given 01/01/2013 8:54 AM EDT 5 mg Given 12/31/2012 3:46 PM EDT 5 mg aspirin chewable tablet 81 mg 81 mg, Oral, DAILY, First dose on Sun01/02/13 at 0900, Until Discontinued, Routine Given 01/05/2013 8:11 AM EDT 81 mg Given 01/04/2013 9:26 AM EDT 81 mg Given 01/03/2013 8:48 AM EDT 81 mg calcium carbonate (TUMS) chewable tablet 500-1,000 mg 500-1,000 mg, Oral, EVERY 4 HOURS PRN, Starting on Sun01/02/13 at 1038, Until Sun01/05/13 at 1414, Heartburn, Give 500 mg (1 tablet) for mild to moderate heartburn. Give 1,000 mg (2 tablets) for severe heartburn., Routine Given 01/03/2013 8:51 AM EDT 1,000 mg DAPTOmycin (CUBICIN) 340 mg in sodium chloride 0.9% 56.8 mL 340 mg (6 mg/kg/dose ? 56.7 kg), Intravenous, at 113.6 mL/hr, EVERY 24 HOURS, First dose on Sun01/04/13 at 1100, Until Discontinued, Routine Given 01/04/2013 11:58 AM EDT 340 mg 11 3.6 mL/hr enoxaparin (LOVENOX) injection 80 mg 80 mg, Subcutaneous, DAILY, First dose on Sun12/30/12 at 1445, Until Discontinued, Routine Given 01/05/2013 8:11 AM EDT 80 mg Given 01/04/2013 9:26 AM EDT 80 mg Given 01/03/2013 8:48 AM EDT 80 mg epoetin janine (EPOGEN;PROCRIT) injection 20,000 Units 20,000 Units, Subcutaneous, ONCE, 1 dose, On Sun12/31/12 at 1100, Routine, What is the indication of use? Neither Chemo-induced nor Radio-induced anemia Given 12/31/2012 12:21 PM E DT 20,000 Units esomeprazole (NEXIUM) capsule 40 mg 40 mg, Oral, DAILY, First dose on Sun12/30/12 at 1530, Until Discontinued, Routine Given 01/05/2013 6:26 AM EDT 40 mg Given 01/04/2013 6:09 AM EDT 40 mg Given 01/03/2013 8:48 AM EDT 40 mg famotidine (PEPCID) tablet 20 mg 20 mg, Oral, 2 TIMES DAILY PRN, Starting on Sun01/02/13 at 1039, Until Sun01/05/13 at 1414, GI upset, pain, Routine Given 01/04/2013 6:37 PM EDT 20 mg Given 01/03/2013 4:30 PM EDT 20 mg Given 01/03/2013 7:46 AM EDT 20 mg furosemide (LASIX) injection 40 mg 40 mg, Intravenous, ONCE, 1 dose, On Sun12/30/12 at 1430 Given 12/30/2012 3:21 PM EDT 40 mg furosemide (LASIX) injection 40 mg 40 mg, Intravenous, ONCE, 1 dose, On Sun12/31/12 at 1100 Given 12/31/2012 11:58 AM EDT 40 mg furosemide (LASIX) tablet 40 mg 40 mg, Oral, DAILY, First dose on Sun01/01/13 at 0900, Until Discontinued, Routine Given 01/03/2013 8:48 AM EDT 40 mg Given 01/02/2013 9:21 AM EDT 40 mg Given 01/01/2013 10:44 AM EDT 40 mg furosemide (LASIX) tablet 40 mg 40 mg, Oral, ONCE, 1 dose, On Sun01/01/13 at 1615, Routine Given 01/01/2013 6:23 PM EDT 40 mg furosemide (LASIX) tablet 40 mg 40 mg, Oral, ONCE, 1 dose, On Sun01/02/13 at 1500, Routine Given 01/02/2013 4:33 PM EDT 40 mg labetalol (NORMODYNE;TRANDATE) injection 10 mg 10 mg, Intravenous, EVERY 4 HOURS PRN, 3 doses, Starting on Sun12/31/12 at 1755, Until Sun01/05/13 at 1414, High Blood Pressure, give for DBP > 90, Routine Given 01/02/2013 11:45 AM EDT 10 mg Given 12/31/2012 8:08 PM EDT 10 mg labetalol (NORMODYNE;TRANDATE) injection 5 mg 5 mg, Intravenous, ONCE, 1 dose, On Sun12/31/12 at 1515, Routine Given 12/31/2012 3:19 PM EDT 5 mg lisinopril (PRINIVIL;ZESTRIL) tablet 2.5 mg 2.5 mg, Oral, DAILY, First dose on Ninfa 01/02/13 at 0900, Until Discontinued, Routine Given 01/05/2013 8:11 AM EDT 2.5 mg Given 01/04/2013 9:27 AM EDT 2.5 mg Given 01/03/2013 8:48 AM EDT 2.5 mg LORazepam (ATIVAN) tablet 0.5 mg 0.5 mg, Oral, EVERY 6 HOURS PRN, Starting on Sun12/31/12 at 1828, Until Sun01/05/13 at 1414, Anxiety, Insomnia, Can give additional 0.5mg after 30 minutes if initial 0.5mg is ineffective, Routine Given 01/04/2013 8:34 PM EDT 0.5 mg Given 01/03/2013 9:09 PM EDT 0.5 mg Given 01/03/2013 11:35 AM EDT 0.5 mg metoprolol (LOPRESSOR) tablet 12.5 mg 12.5 mg, Oral, EVERY 6 HOURS SCHEDULED, First dose on Sun12/31/12 at 1815, Until Discontinued, Hold for SBP < 90 or HR < 60, Routine Given 01/01/2013 7:00 AM EDT 12.5 mg Given 01/01/2013 12:27 AM EDT 12.5 mg Given 12/31/2012 7:56 PM EDT 12.5 mg metoprolol succinate (TOPROL-XL) XL tablet 100 mg 100 mg, Oral, DAILY, First dose on Sun01/03/13 at 1445, Until Discontinued, Routine Given 01/05/2013 8:11 AM EDT 100 mg Given 01/04/2013 9:28 AM EDT 100 mg Given 01/03/2013 5:08 PM EDT 100 mg metoprolol tartrate (LOPRESSOR) tablet 25 mg 25 mg, Oral, EVERY 6 HOURS SCHEDULED, First dose (after last modification) on Sun01/01/13 at 1200, Until Discontinued, Hold for SBP < 90 or HR < 60, Routine Given 01/03/2013 12:17 PM EDT 25 mg Given 01/03/2013 5:30 AM EDT 25 mg Given 01/03/2013 12:14 AM EDT 25 mg ondansetron (ZOFRAN-ODT) oral disintegrating tablet 4 mg 4 mg, Oral, EVERY 8 HOURS PRN, Starting on Sun12/30/12 at 1425, Until Sun01/05/13 at 0754, Nausea, Routine Given 01/05/2013 4:42 AM EDT 4 mg Given 01/04/2013 12:46 PM EDT 4 mg Given 01/03/2013 4:30 PM EDT 4 mg potassium chloride (K-DUR/KLOR-CON) extended release tablet 60 mEq 60 mEq, Oral, ONCE, 1 dose, On Sun01/01/13 at 0730, 20 mEq tablet may be dissolved in water for administration, Routine Given 01/01/2013 8:54 AM EDT 60 mEq potassium chloride 20 mEq in 100 mL 20 mEq, Intravenous, EVERY HOUR, 5 doses, First dose on Sun12/30/12 at 1815, Last dose on Sun12/30/12 at 2200 Given 12/30/2012 11:13 PM EDT 20 mEq Given 12/30/2012 9:54 PM EDT 20 mEq Given 12/30/2012 8:50 PM EDT 20 mEq sodium chloride 0.9 % flush 5 mL 5 mL, Intravenous, EVERY 12 HOURS, First dose on Sun12/30/12 at 1445, Until Discontinued Given 01/05/2013 2:45 AM EDT 5 mLs Given 01/04/2013 2:45 PM EDT 5 mLs Given 01/04/2013 1:40 AM EDT 5 mLs vancomycin 750 mg in dextrose 5% 150 mL 750 mg, Intravenous, at 100 mL/hr, EVERY 24 HOURS, 15 doses, First dose (after last modification) on Sun12/30/12 at 1515, Last dose on Sun01/13/13 at 1515, This medication may have an associated drug lab level. Please check for lab orders, Routine Given 01/02/2013 3:09 PM EDT 750 mg 100 mL/hr Given 01/01/2013 2:36 PM EDT 750 mg 100 mL/hr Given 12/31/2012 3:23 PM EDT 750 mg 100 mL/hr warfarin (COUMADIN) tablet 10 mg 10 mg, Oral, ONCE, 1 dose, On Sun01/04/13 at 1700, Routine Given 01/04/2013 5:44 PM EDT 10 mg warfarin (COUMADIN) tablet 5 mg 5 mg, Oral, ONCE, 1 dose, On Sun12/30/12 at 1700, Daily dosing based on INR, Routine Given 12/30/2012 4:53 PM EDT 5 m g warfarin (COUMADIN) tablet 5 mg 5 mg, Oral, ONCE, 1 dose, On Sun12/31/12 at 1700, Routine Given 12/31/2012 5:10 PM EDT 5 mg warfarin (COUMADIN) tablet 5 mg 5 mg, Oral, ONCE, 1 dose, On Sun01/01/13 at 1700, Routine Given 01/01/2013 6:23 PM EDT 5 mg warfarin (COUMADIN) tablet 5 mg 5 mg, Oral, ONCE, 1 dose, On Sun01/02/13 at 1700, Routine Given 01/02/2013 4:33 PM EDT 5 mg warfarin (COUMADIN) tablet 7.5 mg 7.5 mg, Oral, ONCE, 1 dose, On Sun01/03/13 at 1700, Routine Given 01/03/2013 5:08 PM EDT 7.5 mg documented in this encounter Active and Recently Administered Medications Times are shown in EDT. Scheduled Medication Order 01/03/2013 01/04/2013 01/05/2013 aspirin chewable tablet 81 mg 81 mg, Oral, DAILY, First dose on Ninfa 01/02/13 at 0900, Until Discontinued, Routine 0848 (Given - Provider: Odalis Lora RN) 0926 (Given - Provider: Bhumi Duenas RN) 0811 (Given - Provider: Sera Lucas RN) DAPTOmycin (CUBICIN) 340 mg in sodium chloride 0.9% 56.8 mL (CANCELED) 340 mg (6 mg/kg/dose ? 56.7 kg), Intravenous, at 113.6 mL/hr, EVERY 24 HOURS, First dose on Sun01/04/13 at 1100, Until Discontinued, Routine 1158 (Given - Provider: Bhumi Duenas RN) enoxaparin (LOVENOX) injection 80 mg (CANCELED) 80 mg, Subcutaneous, DAILY, First dose on Sun12/30/12 at 1445, Until Discontinued, Routine 0848 (Given - Provider: Odalis Lora RN) 0926 (Given - Provider: Bhumi Duenas RN) 0811 (Given - Provider: Sera Lucas RN) esomeprazole (NEXIUM) capsule 40 mg (CANCELED) 40 mg, Oral, DAILY, First dose on Sun12/30/12 at 1530, Until Discontinued, Routine 0848 (Given - Provider: Odalis Lora RN) 0609 (Given - Provider: Radha Burgos RN) 0626 (Given - Provider: Radha Burgos RN) furosemide (LASIX) tablet 40 mg (CANCELED) 40 mg, Oral, DAILY, First dose on Sun01/01/13 at 0900, Until Discontinued, Routine 0848 (Given - Provider: Odalis Lora RN) lisinopril (PRINIVIL;ZESTRIL) tablet 2.5 mg 2.5 mg, Oral, DAILY, First dose on Sun01/02/13 at 0900, Until Discontinued, Routine 0848 (Given - Provider: Odalis Lora RN) 0927 (Given - Provider: Bhumi Duenas RN) 0811 (Given - Provider: Sera Lucas RN) metoprolol succinate (TOPROL-XL) XL tablet 100 mg 100 mg, Oral, DAILY, First dose on Sun01/03/13 at 1445, Until Discontinued, Routine 1708 (Given - Provider: Brittany Burt RN) 0928 (Given - Provider: A Madelyn Duenas RN) 0811 (Given - Provider: Sera Lucas RN) metoprolol tartrate (LOPRESSOR) tablet 25 mg (CANCELED) 25 mg, Oral, EVERY 6 HOURS SCHEDULED, First dose (after last modification) on Sun01/01/13 at 1200, Until Discontinued, Hold for SBP < 90 or HR < 60, Routine 0014 (Given - Provider: Odalis Chung RN)0530 (Given - Provider: Odalis Chung RN)1217 (Given - Provider: Odalis Lora RN) ondansetron (ZOFRAN) tablet 4 mg 4 mg, Oral, 3 TIMES DAILY BEFORE MEALS, First dose on Sun01/05/13 at 1130, Until Discontinued, Routine 1130 (Due) sodium chloride 0.9 % flush 5 mL (CANCELED) 5 mL, Intravenous, EVERY 12 HOURS, First dose on Sun12/30/12 at 1445, Until Discontinued 0531 (Given - Provider: Odalis Chung RN)1445 (Given - Provider: Brittany Burt RN) 0140 (Given - Provider: Radha Burgos, DRU)1445 (Given - Provider: Bhumi Duenas RN) 0245 (Given - Provider: Radha Burgos RN) warfarin (COUMADIN) tablet 10 mg (COMPLETED) 10 mg, Oral, ONCE, 1 dose, On Sun01/04/13 at 1700, Routine 1744 (Given - Provider: Bhumi Duenas RN) warfarin (COUMADIN) tablet 7.5 mg (COMPLETED) 7.5 mg, Oral, ONCE, 1 dose, On Sun01/03/13 at 1700, Routine 1708 (Given - Provider: Brittany Burt RN) PRN Medication Order 01/03/2013 01/04/2013 01/05/2013 acetaminophen (TYLENOL) tablet 1,000 mg 1,000 mg, Oral, EVERY 6 HOURS PRN, Starting on Sun12/30/12 at 1425, Until 01/05/13 at 1414, Pain, Fever, Administer for temperature greater than or equal to 38.2 degrees celsius. Maximum daily dose of acetaminophen from all sources not to exceed 4,000 mg., Routine 0442 (Given - Provider: Radha Brugos, DRU) alum-mag hydroxide-simeth (MAALOX) 200-200-20 mg/5 mL oral suspension 10 mL 10 mL, Oral, 3 TIMES DAILY PRN, Starting on Sun01/02/13 at 1039, Until 01/05/13 at 1414, Heartburn, Routine 0533 (Given - Provider: Odalis Chung RN)1218 (Given - Provider: Odalis Lora RN) 1246 (Given - Provider: Bhumi Duenas, DRU) calcium carbonate (TUMS) chewable tablet 500-1,000 mg 500-1,000 mg, Oral, EVERY 4 HOURS PRN, Starting on Sun01/02/13 at 1038, Until Sun01/05/13 at 1414, Heartburn, Give 500 mg (1 tablet) for mild to moderate heartburn. Give 1,000 mg (2 tablets) for severe heartburn., Routine 0851 (Given - Provider: Odalis Lora RN) famotidine (PEPCID) tablet 20 mg 20 mg, Oral, 2 TIMES DAILY PRN, Starting on Sun01/02/13 at 1039, Until 01/05/13 at 1414, GI upset, pain, Routine 0746 (Given - Provider: Odalis Lora RN)1630 (Given - Provider: Brittany Burt RN) 1837 (Given - Provider: Bhumi Duenas, DRU) LORazepam (ATIVAN) tablet 0.5 mg 0.5 mg, Oral, EVERY 6 HOURS PRN, Starting on Sun12/31/12 at 1828, Until Sun01/05/13 at 1414, Anxiety, Insomnia, Can give additional 0.5mg after 30 minutes if initial 0.5mg is ineffective, Routine 1135 (Given - Provider: Odalis Lora RN)2108 (Given - Provider: Radha Burgos, DRU) 2033 (Given - Provider: Radha Burogs, DRU) ondansetron (ZOFRAN-ODT) oral disintegrating tablet 4 mg (CANCELED) 4 mg, Oral, EVERY 8 HOURS PRN, Starting on Sun12/30/12 at 1425, Until 01/05/13 at 0754, Nausea, Routine 0531 (Given - Provider: Odalis Chung, RN)1630 (Given - Provider: Brittany Burt, RN) 1246 (Given - Provider: Bhumi Duenas, DRU) 0442 (Given - Provider: Radha Burgos, DRU) documented in this encounter Care Teams Radioisotope Technologist Relationship Specialty Start Date End Date Bakari Costello APRN [address] [id number] PCP - General 12/13/12 01/12/13 documented as of this encounter
--- OUTSIDE RECORDS SUMMARY | 2023-12-26 11:51 | XMS_ITS | Encounter Summary ---
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 [address] Tyson Patel MD [facility] [place] [address] Referral ID Status Reason Start Date Expiration Date Visits Requested Visits Authorized [id number] Duplicate Referral Assume Subset of Care 12/27/2012 06/25/2013 1 1 Encounter Details Date Type Department Care Team (Latest Contact Info) Description 12/13/2012 7:56 PM EDT - 12/27/2012 6:34 PM EDT Hospital Encounter [address] [place] [id number] Ant Mendoza MD [facility] [place] [address] Luis E Trotter MD [facility] [place] [address] Yudith Raya DO [facility] DR HOSPITAL MEDICINE [place] [id number] Fabi Bliss MD [facility] DR HEMATOLOGY/[place] [address] Ankit Ohara MD [facility] DR HEMATOLOGY/[place] [address] Haris Jarvis MD [facility] HEMATOLOGY/[place] [address] TTP (thrombotic thrombocytopenic purpura) (Primary Dx); Thrombocytopenia; Hemorrhagic colitis; Hypoxia; MRSA bacteremia; HUS (hemolytic uremic syndrome) Discharge Disposition: Home with VNA Social History [...] Sign Reading Time Taken Comments Blood Pressure 150/80 12/27/2012 4:13 PM EDT Pulse 88 12/27/2012 4:13 PM EDT Temperature 36.8 ??C (98.2 ??F) 12/27/2012 4:13 PM ED T Respiratory Rate 18 12/27/2012 4:13 PM EDT Oxygen Saturation 98% 12/27/2012 4:13 PM EDT Inhaled Oxygen Concentration - - Weight 68.9 kg (151 lb 14.4 oz) 013 12:48 PM EDT Height 170.2 cm (5' 7) 12/13/2012 8:22 PM EDT Body Mass Index 23.79 12/13/2012 8:22 PM EDT documented in this encounter Discharge Instructions * Discharge Instructions* Flynn Frausto MD - 12/27/2012 6:05 PM EDT Other Provider Recommendations Nursing Patient Care Recommendations: Bowel function - no current issues Bladder function - no current issues Diabetes management - non diabetic Mental status assessment - some residual vertigo and blurriness left eye. Confusion resolved. Diet/Nutrition - regular diet Care Management Recommendations: See VNA orders PT Recommendations: A: Pt much improved MS and mob status from last week. Pt amb well with FWW and S. Pt will benefit from ongoing therapeutic interventions to achieve therapy goals Physical Therapy Goals: To be achieved by 12-28-12 . Ongoing 1. Pt. to demonstrate knowledge of precautions and weight bearing limitations during functional activities. 2. Pt. to demonstrate understanding of appropriate exercises. 3. Pt. to perform bed mobility with S . 4. Pt. to perform transfers with c.g 5. Pt. to ambulate 25 feet with or without device and c.g 6. Family or caregiver to demonstrate understanding of therapeutic interventions to support the care of the patient. Discharge Recommendations: Might benefit from Home PT initially after Dc Equipment: presently uses FWW Anticoagulation (???Blood Thinner?? ) Management upon Discharge: 1. Reason for anticoagulation therapy: DVT's in setting of HUS 2. Your NEW Warfarin (Coumadin??) dosing instruction upon discharge is: (Follow this schedule belowuntil your first INR check after discharge (usually in 2- 4 days): Take 5mg each night until told otherwise 3. Follow up INR is scheduled on: Sunday/ by VNA 4. INR Goal: 2-3 5. Expected duration of treatment: TBD by Dr Fontana 6. Provider/Team responsible for ongoing outpatient anticoagulation management: PCP 7. If you have not received a call from your provider within 24hrs of having your INR drawn, pleasecall your outpatient provider for further dose instructions. 8. Warfarin (Coumadin??) should be taken at the same time every day, preferably after 5pm. 9. If taking Enoxaparin (Lovenox??) injections, continue taking until instructed to stop. (You willbe taking this medication until your INR is in the therapeutic range for 24 hours.) The following table shows your most recent INR results and Warfarin (Coumadin??) Doses Recent Labs Basename 12/27/12 0357 12/25/12 1526 12/22/12 0500 INR 1.0 1.1 1.4* Hospital Date 12/26 Coumadin Dose (mg) 5 mg ?? Please review your Warfarin (Coumadin??) Pack upon discharge. ?? For your safety, it is very important to be aware of the following details related to taking ???blood thinning?? medications such as Coumadin. o Compliance: Take your medication exactly as directed. Missing a dose or taking more than you are scheduled to take could result in clotting or bleeding issues. o Signs and Symptoms to be reported include: increased pain, swelling or sudden shortness of breath severe headaches dizziness unusual bleeding or bruising changes in urine or bowel movement color coughing or spitting up of blood, or nosebleeds In the event that you should experience any of the above, seek medical attention. * Patient Instructions* RehanaBrettvero Askew - 12/26/2012 10:31 PM EDT Instruction after leaving the hospital Why you were hospitalized: TTP-HUS syndrome, renal insufficiency. Call your doctor or seek medical attention if you develop the following: Nausea, vomiting, abdominal pain or distention, fevers/chills, unable to pass stool or gas or any other symptoms of concern. Activity level: As tolerated Diet: No restrictions Driving: No driving if taking narcotics or vision impaired. Shower/Bath: Keep PICC line dry per instructions. Wound Care: N/A Home Oxygen therapy: N/A Specific instructions related to your condition: 1) Continue vancomycin as discussed 2) Follow up appointments Primary Care Provider (seeing Dr. Rob Mejia in place of Bakari Quijano),Hematology, Nephrology and Endocrinology. See appointments. 3) Seek medical attention for lightheadedness, blood in stools, worsening confusion, shortness of breath, increased leg swelling, or if you are not making urine. Appointment with Primary Care Provider: 12/30/2012 12:45PM, Provider: Dr. Rob Mejia, Location: [place] [address], Your Inpatient Doctor(s) at [facility]: Attendings: Dr. Cristina, Dr. Ohara, Dr. Bliss Fellow: Dr. Gomez Residents: Dr. Guzmán, Dr. Aleman Senior Software Engineer Analytics: Dr. Kimball * Attachments The following attachments cannot be sent through Care Everywhere. * PERIPHERALLY INSERTED CENTRAL CATHETER (PICC): AFTER YOUR VISIT (PU[facility]O [facility]ICAN) documented in this encounter Medications at Time of Discharge Medication Sig Dispensed Refills Start Date End Date CALCIUM ORAL 12/03/2009 prochlorperazine (COMPAZINE) 10 mg tablet Take 1 tablet by mouth every 6 hours as needed for Nausea (Nausea/Vomiting) for 7 days. 15 tablet 2 12/27/2012 01/03/2013 omeprazole (PRILOSEC) 40 mg capsule Take 1 capsule by mouth daily. 30 capsule 11 12/27/2012 12/27/2013 enoxaparin (LOVENOX) 80 mg/0.8 mL injection Inject 0.8 mLs subcutaneously daily for 12 days. 9.6 mL 0 12/27/2012 01/08/2013 warfarin (COUMADIN) 5 mg tablet Take 1 tablet by mouth daily for 7 days. 7 tablet 0 12/27/2012 01/05/2013 prochlorperazine (COMPAZINE) 10 mg tablet Take 1 tablet by mouth every 6 hours as needed for Nausea. 30 tablet 0 12/27/2012 12/30/2012 warfarin (COUMADIN) 5 mg tablet Take 1 tablet by mouth daily. 15 tablet 0 12/27/2012 01/05/2013 Glucosamine-Chondro it-Vit C-Mn 500-400 mg Cap 12/03/2009 01/13/2013 Galena-3 Fatty Acids-Vitamin E (OMEGA-3 FISH OIL) 1,000-5 mg-unit Cap 12/03/2009 01/06/20 13 documented as of this encounter Progress Notes * Carmen Strickland - 12/27/2012 6:30 PM EDT Computer Instructor Encounter Note Patient Name: Anum Henriquez : [id number] MR#: [id number] Admit Date: 12/13/2012 7:56 PM Hospital Day 14 days Narrative: Follow up visit with patient prior to her discharge. Patient's present at the time of visit. Assessment: Patient expressed with excitement that she was going home today. She related the challenges of her hospitalization but was grateful to the members of the [facility] medical staff for their services. Intervention and Outcome: Supportive dialogue, pastoral presence, conveyance of care, anointing of the sick, Holy Communion and prayers provided Follow-up: Will continue to follow up for support Time in Direct Care: 30 minutes Carmen Strickland 12/27/2012 * Erika Tracy RN - 12/27/2012 6:24 PM EDT Pt. D/c'd home w/single lumen picc to LUE for IV antibiotic out patient. Pt. Ambulated out w/walkerand SN and . Pt. Denies n/v or pain at this time. * Brian Velazco MD - 12/27/2012 5:39 PM EDT [facility] NEPHROLOGY INPATIENT FOLLOW UP PATIENT: Anum Henriquez : 1960 ROOM: [address] [place] [address] ID: 52 y.o. 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 Subjective: C/o headaches and dry heaves. MEDS: ??? caffeine 100 mg Oral Once ??? vancomycin 750 mg Intravenous Once ??? DISCONTD: caffeine citrated 80 mg Intravenous Once ??? folic acid 1 mg Oral Daily ??? esomeprazole 40 mg Oral BID ??? warfarin (COUMADIN) daily order reminder Oral Q24H ??? enoxaparin 1 mg/kg/dose Subcutaneous Q24H KATIE ??? DISCONTD: vancomycin 750 mg Intravenous Q24H ??? multivitamin 1 tablet Oral Daily ??? hydrocortisone Topical BID ??? magnesium oxide 400 mg Oral BID ??? chlorhexidine 15 mL Oral BID ??? sodium chloride 0.9 % 5 mL Intravenous Q12H EXAM: Last value Range last 24 hrs Temperature Temp: 36.8 ??C (98.2 ??F) Temp: [36.3 ??C (97.3 ??F)-36.9 ??C (98.4 ??F)] Heart Rate Heart Rate: 88 Heart Rate: [73-98] Blood Pressure BP: 150/80 mmHg BP: (125-150)/(80-96) Respiratory Rate Resp: 18 Resp: [12-20] SpO2 SpO2: 98 % SpO2: [89 %-98 %] Art BP BP (Arterial Line): -- Wt Readings from Last 3 Encounters: 12/27/12 68.9 kg (151 lb 14.4 oz) 12/27/12 68.9 kg (151 lb 14.4 oz) Intake/Output Summary (Last 24 hours) at 12/27/12 1739 Last data filed at 12/27/12 1555 Gross per 24 hour Intake 1170 ml Output 1900 ml Net -730 ml Gen: Alert and awake, oriented x 3 Lungs: CTA b/l no rales Heart: S1/S2 normal, no murmurs, rubs, gallop Abd: +BS, no distended Extrem: mild edema lower extremities. LABS: Lab Results Component Value Date WBC 8.2 12/27/2012 RBC 3.02* 12/27/2012 HGB 9.0* 12/27/2012 HCT 27.0* 12/27/2012 MCV 89.4 12/27/2012 MCH 29.8 12/27/2012 MCHC 33.3 12/27/2012 PLATELET 317 12/27/2012 RDWCV 15.1* 12/27/2012 Lab Results Component Value Date Sodium 138 12/27/2012 Potassium 3.5 12/27/2012 Chloride 104 12/27/2012 CO2 23 12/27/2012 BUN 10 12/27/2012 Creatinine 2.10* 12/27/2012 Glucose Lvl 108 12/27/2012 Lab Results Component Value Date CALCIUM 8.3* 12/27/2012 Lab Results Component Value Date PHOS 4.4 12/27/2012 IMPRESSION/ RECOMMENDATIONS: 52 yo female admitted with history of bloody diarrhea and findings of microangiopathic hemolytic anemia/thrombocytopenia and non oliguric acute kidney injury likely from HUS. Started on plasma exchange daily until 12/20. (received 7 treatment total). [id number] is normal and infectious work-up is negative so because of gadolinium exposure and mental status improved after hd. DELVIS- Cr stable. Non oliguric. Stable chemistries No indications for AUTO CLUTCH SPECIALIST. Pt is getting discharged today. Plan to check labs in 1 week at [facility] and she has an appointment in nephrology clinic on 01/14/12. Recs: -Anemia- hb improved. epo level pending. - MRSA bacteremia- cont vanco per ID recs. - found to have b/l lower extremity DVT and started on renal dosed lovenox/ coumadin. - headaches -improved with caffeine. - Avoid nephrotoxins - Renal dose meds Seen and discussed with Dr. Velazco Renal Staff: This patient is seen and examined with Dr. Greene and I agree with her note and make the following additional comments: Patient felt quite poorly this am with severe frontal headache and nausea but improved with oral caffeine. No h/o prior migraines. Her usual caffeine intake prior to this illness was only 1-2 soft drinks per day so I am not sure that caffeine w/d SWIFT is really the dx? She is much improved this afternoon, regardless. New picc left arm nt. Left calf>right calf edema c/w with her dx of dvts and she is on anticoagulation. If she does not reach therapeutic soon on coumadin, will need to check factor Xa level. Cr unchanged at 2.1, stable hematology, normal mentation and no asterixis. She will have labs and heme f/u next week then renal fu with me the week after. She will monitor bp, sx such as headache, wt. Will need to have vanc levels monitored by opat team. * Dez Bishop, RN - 12/27/2012 4:28 PM EDT Patient Name: Aunm Henriquez Patient Age: 52 y.o. Birthdate: 1960 Admit date: 12/13/2012 Attending Physician: Haris Jarvis MD Office of Care Management (OCM) / Clinical Hvac Manager (CRC) Continuing Care Note Care reviewed with hematology/blood and marrow transplant team and at interdisciplinary discharge rounds. . Situation: Discharge planned for today on home on IV abx therapy. Today is Day 8 Vancomycin IV for MRSA bacteremia. Arrangements made with [employer] for delivery of supplies to hospital room before discharge to home. [facility] is the [facility]NA that will go to the home tomorrow for first hang around 3 pm. 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 Single lumen PICC placed. [facility] Background: PMH of Graves on methimazole, transferred from Medicine with clinical picture c/w TTP-HUS in setting of 3-4 days bloody diarrhea. Received plasma exchange x7 days, last day 12/20. Assessment: Medically ready for home Rec's/Plan: 1. Discharging RN to fax discharge summary. 2. INR to be followed by PCP arrangements made by Dr. Kimball. 3. Labs every Sunday to be drawn by VNA and faxed to OPAT 4. Follows up with Dr. Bliss in [facility] on 01/01. 5. First visit by VNA to be on tomorrow at approx 3 Pm. Future Appointments Date Time Provider Department Center 01/01/2013 12:35 PM Fabi Bliss MD [facility]C [facility] 01/13/2013 3:30 PM Brian Velazco MD [facility] NEPH 2M [facility] 01/14/2013 10:05 AM Minor Kebede MD [facility] ENDO 5C [facility] 01/14/2013 10:30 Clovis Tenorio MD [facility] [address] RENNY Bishop RN Clinical Hvac Manager Office of Care Management Pager [phone] * Leticia Hardy PT - 12/27/2012 3:45 PM EDT Ms. Anum Henriquez presents OOB with nursing and . Pt reports she feels comfortable with exercises and has already performed them today. She has been walking around the unit. Exercise handout was provided. She demo yesterday good ability to perform stairs with close supervision. felt comfortable assisting her. She denies questions in re: mobility and no longer has any further inpatient PT needs. Equipment needs: FWW Pt anticipating discharge later today. ~Leticia Hardy PT Pager [phone]. * Tyson Patel MD - 12/27/2012 1:10 PM EDT ID PROGRESS NOTE: FINAL OPAT RECOMMENDATIONS Patient was not seen and examined, but she remains afebrile with a normal WBC count and no new blood culture growth. She had MRSA bacteremia likely from a line source. Blood cultures negative since 12/21 and all lines removed since 12/24. Her kidney function today is relatively stable with a creatinine of 2.1. Her creatinine and vanco levels will need close monitoring, but in anticipation of discharge, we think patient can be discharged on Vancomycin 750 mg IV Q24 hours (her current dose) with a lab re-check on Sunday, which OPAT will arrange as an outpatient. Recommendations: - Vancomycin 750 mg IV [id number] x3 weeks total since line removal (12/24 - 01/14) - Re-check labs Sunday: CBC, CMP, Vanco trough - Then weekly CBC, CMP, Vancomycin trough if Sunday labs are stable (or sooner if needed) - f/u in ID clinic in 2 weeks - to be arranged by OPAT Attending Addendum: I have seen and examined the patient, reviewed the data and agree with the note by Dr. Posada. Continued improvement. Line associated bacteremia. Now on anticoagulation. Denies F/C/S, N/V/D, rash, thrush, SWIFT, etc. Exam with mild decreased BS bases, heart normal, no rash, no icterus, labs reviewed. Need to repeat vanco trough on Sunday and adjust dose given her fluctuating renal function. Discussed with her, she understands. * Karen Catherine, PT - 12/26/2012 4:50 PM EDT Physical Therapy Treatment Note Visit #: 08/18 Patient profile: Pt. is a 52 y.o. female admitted on 12/13/2012 by Fabi Grimm MD w/ PMH of Graves on methimazole, transferred from Medicine with clinical picture c/w TTP-HUS in setting of 3-4 days bloody diarrhea. Now receiving plasma exchange. PMH: No past medical history on file. No past surgical history on file. 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 Pt demonstrated the following ?? MS: awake, pleasant, reports improvement in cognition but is using lists to remember things, ?? Mob: sit- stand independent ?? Exs:Pt able to demonstrate marching, standing calf presses, knee extension in sitting and ankle pumps ?? Pt is on RA ?? Ambulated 150ft, cues only to Find the stairs and then her room ?? Negotiated 1 step backwards with FWW several times Pain: no complaints Education: Pt/family education ongoing re: exercises and mobility Staff Communication: Patient status, treatment, and mobility recommendations discussed with nursing/other staff. A: Pt making daily progress. Did well with stairs and will need a FWW. Pt is motivated to do exercises and has a supportive at home Physical Therapy Goals: To be achieved by 12-28-12 1. Pt. to demonstrate knowledge of safety during functional activities. MET 2. Pt. to demonstrate understanding of appropriate exercises.MET 3. Pt. to perform bed mobility with S . MET 4. Pt. to perform transfers with c.g MET 5. Pt. to ambulate 25 feet with or without device and c.g MET 6. Family or caregiver to demonstrate understanding of therapeutic interventions to support the care of the patient. Discharge Recommendations: Home with VNA P: review and progress exercises, provide written HEP Total time spent with patient: 15 minutes Total timed interventions: 15 minutes Pager: [phone] KAREN CATHERINE PT Physical Therapy Rehabilitation Department * Brian Velazco MD - 12/26/2012 3:12 PM EDT [facility] NEPHROLOGY INPATIENT FOLLOW UP PATIENT: Anum Henriquez : 1960 ROOM: [address] [place] [address] ID: 52 y.o. 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 Subjective: Feels well, ambulating. cheerful MEDS: ??? warfarin 5 mg Oral Once ??? folic acid 1 mg Oral Daily ??? esomeprazole 40 mg Oral BID ??? warfarin (COUMADIN) daily order reminder Oral Q24H ??? vancomycin 750 mg Intravenous Q24H ??? enoxaparin 1 mg/kg/dose Subcutaneous Q24H KATIE ??? multivitamin 1 tablet Oral Daily ??? hydrocortisone Topical BID ??? magnesium oxide 400 mg Oral BID ??? DISCONTD: esomeprazole 40 mg Intravenous BID ??? DISCONTD: folic acid 1 mg Oral Daily ??? chlorhexidine 15 mL Oral BID ??? sodium chloride 0.9 % 5 mL Intravenous Q12H EXAM: Last value Range last 24 hrs Temperature Temp: 36.9 ??C (98.4 ??F) Temp: [36.6 ??C (97.9 ??F)-36.9 ??C (98.4 ??F)] Heart Rate Heart Rate: 76 Heart Rate: [72-84] Blood Pressure BP: 140/82 mmHg BP: (138-152)/(82-94) Respiratory Rate Resp: 18 Resp: [16-18] SpO2 SpO2: 94 % SpO2: [93 %-97 %] Art BP BP (Arterial Line): -- Wt Readings from Last 3 Encounters: 12/26/12 69.9 kg (154 lb 1.6 oz) 12/26/12 69.9 kg (154 lb 1.6 oz) Intake/Output Summary (Last 24 hours) at 12/26/12 1512 Last data filed at 12/26/12 1137 Gross per 24 hour Intake 1905 ml Output 2475 ml Net -570 ml Gen: Alert and awake, oriented x 3 Lungs: CTA b/l no rales Heart: S1/S2 normal, no murmurs, rubs, gallop Abd: +BS, no distended Extrem: mild edema in dependent areas LABS: Lab Results Component Value Date WBC 6.1 12/26/2012 RBC 2.81* 12/26/2012 HGB 8.3* 12/26/2012 HCT 25.3* 12/26/2012 MCV 90.0 12/26/2012 MCH 29.5 12/26/2012 MCHC 32.8 12/26/2012 PLATELET 231 12/26/2012 RDWCV 15.2* 12/26/2012 Lab Results Component Value Date Sodium 141 12/26/2012 Potassium 3.5 12/26/2012 Chloride 106 12/26/2012 CO2 24 12/26/2012 BUN 11 12/26/2012 Creatinine 2.05* 12/26/2012 Glucose Lvl 99 12/26/2012 Lab Results Component Value Date CALCIUM 8.5 12/26/2012 Lab Results Component Value Date PHOS 4.1 12/26/2012 IMPRESSION/ RECOMMENDATIONS: 52 yo female admitted with history of bloody diarrhea and findings of microangiopathic hemolytic anemia/thrombocytopenia and non oliguric acute kidney injury likely from HUS. Started on plasma exchange daily until 12/20. (received 7 treatment total). [id number] is normal and infectious work-up is negative so because of gadolinium exposure and mental status improved after hd. DELVIS- Cr stable off dialysis. Good urine output. No signs of uremia. Stable chemistries. Mild fluid overload. No indications for AUTO CLUTCH SPECIALIST. Will continue to follow cr and urine output. Recs: -dose vanco per levels. Check daily vanco levels in the setting of renal insufficiency. -Anemia- hb improved. epo level pending. - MRSA bacteremia- cont vanco but dose per levels. - found to have b/l lower extremity DVT and started on renal dosed lovenox/ coumadin. -needs close follow up in nephrology clinic after discharge. - Avoid nephrotoxins - Renal dose meds Seen and discussed with Dr. Velazco Renal Staff: This patient is seen and examined with Dr. Greene and I agree with her note and make the following additional comments: Seen briefly while ambulating. Looks well. Cr stable. Hb stable, plts normal. Even if epo level normal, she may require treatment with exogenous epo to recover from anemia if her renal function remains impaired. * Dez Bishop RN - 12/26/2012 3:10 PM EDT Office of Care Management Clinical Hvac Manager Home IV Antibiotic Therapy Referral Note. Report received from Dr. Frausto that patient will require continued home IV antibiotic therapy after discharge from the hospital. Met with patient/family to discuss vendor and visiting nurse choices for home IV antibiotic therapy. Reviewed Home Infusion Vendors and Home Health Agencies that serve patient???s address and accept patient???s insurance. Home Health Agency: Patient requested referral to [facility] PHONE: [phone] FAX: [phone] Referrals sent via edischarge. Home Infusion Vendor: Patient requested referral to [place], [place] or Referrals sent via edischarge. Diabetic Status: Patient is not a diabetic. 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 S: Patient significantly improved, no complaints, anticipating discharge Relevant inpatient medications: - No methimazole (last dose 12/16) PE): - Vitals: 98.4, 140/82, 76 (range 70-80s last 24 hours), 18, 94% on RA - Gen: AAO x 3, NAD, mild tremor (unchanged) Relevant Labs: - TSH 1.97 - Total T3 77 - Total T4 6.7 - FTI 6.8 Assessment: The patient is a 52-y/o lady with a PMH significant for Graves' disease (on methimazole) who was transferred from an outside hospital with concern for TTP/HUS, with Endocrinology consulted with the question of whether her presentation could be consistent with a methimazole-induced vasculitis. Please see the initial consult note for a full assessment. In short, given the negative ANCAsand high suspicion for TTP-HUS, a methimazole-induced vasculitis seems unlikely. However, given thehigh TSH and low free T4 and free T3, the patient was likely no longer requiring her low-dose methimazole treatment and so it was stopped. Since then, she has improved and has no evidence of hyperthyr oidism by history, exam, or labs. Recommendations: - Continue to hold methimazole - No need to start a beta kirstie - Patient scheduled to see me in the Endocrinology clinic on 01/14 at 10AM (will have labs prior to that) - Patient to contact the Endocrinology clinic if she has concerns for return of hyperthyroidism after discharge and prior to her appointment Patient to be discussed with the attending Dr. Varner, official recommendations to follow Minor Kebede MD Fellow, Endocrinology 12/26/2012 15/25 mins I have seen the patient and reviewed the resident's above history and I agree with the details as written. The assessment and plan were formulated in discussion with me and I agree with them as documented. * Rebecca Kumar - 12/26/2012 11:18 AM EDT Computer Instructor Encounter Note Patient Name: Anum Henriquez : [id number] MR#: [id number] Admit Date: 12/13/2012 7:56 PM Hospital Day 13 days Narrative: Visited on rounds. Patient was excited about possibility of discharge. She plans to attend Mass at Noon today. Assessment: Patiebnt was alert and eager to converse. Intervention and Outcome: The encounter provided spiritual support. Follow-up: Will visit if discharge is delayed. Time in Direct Care: 10 minutes. Rebecca Kamara [place] 12/26/2012 * Haris Jarvis MD - 12/26/2012 6:25 AM EDT Inpatient Hematology/Oncology/SCT Progress Note Patient info: Name: Anum Henriquez LOS: Hospital Day 13 days ID: Anum Henriquez is a 52 y.o. 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 Received plasma exchange x7 days, last day 12/20. Day 7 Vancomycin IV (12/26) Hospital Problem List: Patient Active Problem List Diagnoses Code ??? Hemorrhagic colitis 558.9 ??? Thrombocytopenia 287.5 ??? Hyperthyroidism 242.90 ??? 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 Resolved problems: #Melanous stools #Delerium 24 Hour Events: - Her Hb is still decreasing, epo pending - Her SOB is stable (pleural effusions), 2LNC last night for comfort not desaturation - UT showed no thrombus and - Abdominal pain persists stable from yesetrday - pulsatile tinnitus is bothering her - PLTs are stable over yesterdays - Vanc Day#7 (12/26) for MRSA bacteremia Subjective - feels the same as yesterday - No double vision this morning, left eye blurriness only for objects near - vertigo still present but less than it has been in the past Vitals: Last value Range last 24 hrs Temperature Temp: 36.7 ??C (98.1 ??F) Temp: [36.7 ??C (98.1 ??F)-37 ??C (98.6 ??F)] Heart Rate Heart Rate: 78 Heart Rate: [72-86] Blood Pressure BP: 150/90 mmHg BP: (138-152)/(70-90) Respiratory Rate Resp: 18 Resp: [16-18] SpO2 SpO2: 96 % SpO2: [93 %-96 %] Intake/Output Summary (Last 24 hours) at 12/26/12 0625 Last data filed at 12/26/12 0300 Gross per 24 hour Intake 1725 ml Output 2700 ml Net -975 ml Patient Vitals for the past 168 hrs: Weight 12/26/12 0352 69.9 kg (154 lb 1.6 oz) 12/25/12 0654 70.2 kg (154 lb 12.2 oz) 12/23/12 0740 73.3 kg (161 lb 9.6 oz) 12/21/12 1704 75.751 kg (167 lb) 12/21/12 0325 76 kg (167 lb 8.8 oz) 12/20/12 0500 76.2 kg (167 lb 15.9 oz) 12/19/12 0645 76.1 kg (167 lb 12.3 oz) Admit wt:73.60 kg Change: -3.5kg (no weights in 2 days) Physical Exam: GEN: Looks so much better today, wearing make-up and sitting up in bed talking with her son. HEENT: PERRLA, EOMI, anicteric, exopthalmos, MMM, OP clear RESP: Decreased BS blbs, tubular breath sounds LLB, similar to yesterday, no crackles or rhonchi orwheeze CVS: RRR, S1, S2; no murmurs, rubs, gallops Abd: Soft, NTND, +BS. No rebound or guarding. No masses or HSM appreciated. EXT: Tense lower legs bl, less tense than yesterday. Skin: no lesions Neuro: AAOx3, No double vision this AM, EOMI, Rkhvnm-xv-[id number] improved, no past- pointing; rapid alternating movement and kaqt-wm-jvwz intact. Patellar and biceps tendon reflexes are 2+ (no longer 3+). Antimicrobials: Vancomycin 1g q24 (12/20-) Day#4 Zosyn 3.375 q8 (12/20-) Medications: Scheduled Meds: ??? vancomycin 750 mg Intravenous Q24H ??? enoxaparin 1 mg/kg/dose Subcutaneous Q24H KATIE ??? DISCONTD: vancomycin 1 g Intravenous Q24H ??? multivitamin 1 tablet Oral Daily ??? hydrocortisone Topical BID ??? magnesium oxide 400 mg Oral BID ??? esomeprazole 40 mg Intravenous BID ??? folic acid 1 mg Oral Daily ??? chlorhexidine 15 mL Oral BID ??? sodium chloride 0.9 % 5 mL Intravenous Q12H Continuous Infusions: PRN Meds:.morphine, morphine, morphine, Vancomycin Level - MAR Order Reminder, DISCONTD: VancomycinLevel - MAR Order Reminder, haloperidol lactate, ondansetron, ondansetron, benzocaine, acetaminophen, prochlorperazine, prochlorperazine Labs: Recent Labs Basename 12/26/1234112/25/12 12012/25/12 0414 WBC 6.1 6.7 5.5 HGB 8.3* 8.8* 8.3* HCT 25.3* 26.9* 24.9* PLATELET 231 264 228 NEUTROABS 3.99 4.85 3.63 Recent Labs Basename 12/26/12 0342 12/25/12 0414 12/24/12 0358 NA 141 140 138 K 3.5 3.6 3.7 CL 106 106 101 CO2 24 27 27 BUN 11 10 7* CREATININE 2.05* 2.01* 1.59* Recent Labs Basename 12/26/12 0342 12/25/12 0414 12/24/12 0358 CALCIUM 8.5 8.3* 7.9* MAGNESIUM 0.80 0.80 0.74 PHOS 4.1 3.4 2.9 Recent Labs Basename 12/26/1234112/25/12 1204 12/25/12 0414 12/24/12 1300 AST -- -- -- -- ALT -- -- -- -- ALKPHOS -- -- -- -- BILITOT -- -- -- 0.4 BILIDIR -- -- -- 0.1 LDH 255* 288* 249* -- Recent Labs Basename 12/25/12 1526 INR 1.1 PT 14.5 PTT 31 Other Labs: C3 Complement 12/16 - 66 (low) C4 Complement 12/16 - 4 (low) TSH 12/16 - 3.68 Free T4 -0.88 (borderline low) Epo level (12/25) - pending Microbiology: C diff 12/15 - neg Stool wbc + Stool cx OSH 12/10 - negative Shiga toxin 12/17 - pending Campylobacter antigen 12/17 - pending Stool Cx (looking for E.coli O157)- 12/16 HIV 12/16 pending - negative Blood culture 12/20 - 07/13 grew MRSA sensitive to Vancomycin Urine culture 12/20 - >100,000 Staph A Blood Culture 12/21 - pending Pertinent radiology/diagnostic studies: KUB 12/15: Mild gaseous distention of the small bowel with a few air-fluid levels. + gas within the colon. The pattern is most consistent with a partial small bowel obstruction. No evidence of free subdiaphragmatic air. MRI 12/16 Normal Bilateral DVT study 12/19: Interpretation: RIGHT: Non occlusive thrombus in one of the peroneal veins through the mid calf. No evidence of femoral to popliteal deep venous thrombosis. LEFT: Focal non occlusive thrombus in one of the posterior tibial veins in the mid calf. No evidence of femoral to popliteal deep venous thrombosis. Comparison: No previous study in our vascular lab database for comparison. Immune Studies: 12/16 C-ANCA, P-ANCA both negative 12/16 MPO Ab, 12/17 KIANA - negative, MRI Brain 12/21/12: pending Abnormal diffusion in the bilateral centrum semiovale associated with probable abnormal signal in the bilateral basal ganglia. These findings are subtle and nonspecific, but can be seen in setting of toxic metabolic processes, especially given the symmetry. The findings in the deep white matter and corpus callosum raises the possibility of acute demyelination. The findings are not characteristicof a vasculitis or cerebritis. Follow up imaging could be helpful to see how these changes evolve. Pathology: 12/17 Blood smear: Scistocytes are more than noted in the previous smear EGD 12/19 - Normal esophagus. - Gastric mucosal abnormality in the gastric body characterized by erythema/submucosal hemorrhage likely related to TTP. 12/24 Peripheral Blood Smear pending ASSESSMENT/PLAN: 52F w/ h/o Graves p/w acute onset abd pain, bloody diarrhea, n/v, anemia, thrombocytopenia, schistocytes, INR/PTT normal, SEN negative = clinical dx HUS- TTP. ADAMTS-13 returned normal. Stool studies negative. Received plasma x-change daily 12/14-12/20. Plts increased, LDH decreased. kidney function was getting better. However, acute desat/SIRS yesterday (low grade fever 38, tachy 110, tachpneic, 88%6LNC). CXR showed bibasilar opacities vs layering pleural effusions. No possibility of TRALI per transfusion med, as all donors were male. However, TACO (fluid-overload) likely contributing, also concern for HCAP. Started vanc and zosyn. Full infectious w/u. BCx grew staph aeurus both aerobic bottles <24hrs. ?source from PICC, plasmaphoresis line, possibly lung, possibly contaminated plasma? On 12/20 and 12/21 gibberish, +3 hyperreflexia symmetrically: Neuro involved. Likely all toxic-metabolic encephalopathy + delirium. Possible diagnosis include ?Lupus cerebritis, CONTENT MANAGER vasculitis, all d/t TTP-HUS? Delirogenic meds d/c'd. Has haldol prn. Additionally she received gallinium for MRI so dialysis was initiated on 12/21 She continues to show further improvement today - walked ot show on her own, lucid, decreasing double vision. neurologically this AM, cogent and lucid. She is Day #3 dialysis and Day #4 antibiotic therapy (12/23). Over the last few days she has made remarkable clinical progress and today she is even better. We need to make sure that dialysis continues to remove fluid from her as her lung exam still shows evidence of pleural effusions. We likely remove her central line today and I am following up with ID to see how long her expected course of vancomycin should be. An additional clinical question that is lingering is the cause of her anemia. She has received 3 RBC transfusions this hospitalization and for awhile her melanous stools provided a source for her lowHb. However, the GI loss has resolved, and yet her Hb is still decreasing. On going hemolysis seemsunlikely as her haptoglobin yesterday was 70 (present small amount of hemolysis consume the the haptoglobin). Her reticulocyte count is low and the reitculated hb is also low. We are measuring an EPOlevel today to see if her acute renal failure is contributing to the decreased production or if thelevel is normal, whether it may be present in the bone marrow problem or chronic inflammatory state. Hb continued to decrease today at 8.3. 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 Her thrombocytopenia and hemolysis (schistocytes) qualified her for treatment plasmapheresis. Additionally her DELVIS and altered mental status are part of the HUS-TTP spectrum. However, our studies to date have not revealed a definitive etiology. - PLT count slightly decreased -peripheral smear to f/u on HUS-TTP - ADAMTS-13 normal - stool cx negative (not enough growth to test for e coli O157:H7) - Low complement level - daily plts and LDH - trend CBC, transfuse if necessary. No transfusions today #MRSA bacteremia likely from line infection -On vancomycin IV Day 6 (12/25), dose was changed to 750mg due to renal insufficiency -Blood cultures have been negative since starting vancomycin -No lines in (only peripheral IV) -Follow up with ID for duration of outpatient Vancomycin IV -Order PICC line to be placed tomorrow #Thrombi in legs and arm -DVT in legs expanding and clot in right basilic vein -Now that we are more confident GI bleeding has resolved we are initiating anticoagulant therapy -starting Couamadin 5mg POand daily coaggs because INR can be followed as an outpatient - her goal will be 2.0-3.0. Bridging with lovenox in the interim -dosing according to renal insufficiency -PICC to be placed Sunday12/26/12 # DELVIS - Likely 2/2 TTP-HUS plus decreased intake - Cr increased after diuresis - Received contrast with MRI (ordered as generic MRI brain) - Nephrology following - she is still clinically hypervolemic -tense edema in extremities and pleural effusions. #Hyperthyroidism/Graves -Appreciate Endocrinology input -stopping methimazole (12/16) -MPO-ANCA following for possible vasculitis - consider beta kirstie if develops tachycardia # FEN - repleting K, mag, phos prn - Regular diet, not taking much po # Other - DVT ppx - reassessing clot status and evaluating whether anticoagulation should be started. - GI: PPI PO BID CODE STATUS: Full Code JOHN KIMBALL MD, PGY-1 12/26/2012 Team A Pager #[phone] . I have independently interviewed and examined this patient and have personally reviewed the relevant clinical, laboratory and radiological data with the housestaff on rounds. Please refer to the comprehensive progress note above, with which I concur, for complete details of our encounter with this patient. I have reviewed and endorse the plan as outlined and have made any additions/corrections below. Because of her clinically progressing bilateral calf clots we have added renally dosed Lovenox. We will convert her to Coumadin and she will likely need 3 months of anticoagulation. She remains anemic but there is no evidence of ongoing brisk hemolysis. I suspect her anemia at this point is being driven by lack of marrow response because of her stage III renal insufficiency and probable low erythropoietin level. Once we get the erythropoietin level back we will either considera bone marrow biopsy or supplementation with Procrit. Clinically she is looking stable enough to consider discharge to home by the weekend to complete her antibiotics as a outpatient. * Tyson Patel MD - 12/25/2012 4:09 PM EDT INFECTIOUS DISEASE DAILY PROGRESS NOTE Name: Anum Henriquez : 1960 Sex: female Active ID Problem List: MRSA bacteremia TTP/HUS s/p plasma exchange Pertinent Medications: Vanco Subjective: Overall doing well. Not much confusion. Abdominal cramping still present. Diarrhea has mostly resolved. Right IJ removed and site feeling better. Having some intermittent low/mid back pain from bed -improves with ambulation. Physical Exam: Temp: [36.7 ??C (98.1 ??F)-37 ??C (98.6 ??F)] Heart Rate: [68-87] Resp: [18] BP: (116-144)/(64-88) SpO2: [94 %-95 %] Gen: NAD Resp: Mild crackles bilat Abd: Soft, ND, NABS, + RUQ tenderness Back: + tenderness to percussion mid and lower back Ext: + bilat LE edema Skin: No rash Neuro: A&Ox3 Laboratory in Last 24 Hours: CBC Lab Results Component Value Date WBC 6.7 12/25/2012 Hemoglobin 8.8* 12/25/2012 Hematocrit 26.9* 12/25/2012 Platelets 264 12/25/2012 Lab Results Component Value Date Sodium 140 12/25/2012 Potassium 3.6 12/25/2012 Chloride 106 12/25/2012 CO2 27 12/25/2012 BUN 10 12/25/2012 Creatinine 2.01* 12/25/2012 Glucose Lvl 99 12/25/2012 LFT's No results found for this basename: alkphos, ast, albumin, bilidir, bilitot, alt, prot Microbiology: Blood Culture: 12/20: 2/2 MRSA 12/21: NGTD 12/22: NGTD 12/23: NGTD 12/24: NGTD Radiology/Imaging: None new Assessment: 52 yo female with a h/o Grave's disease who presented initially to an OSH with 2-3 days of abdominal pain, nausea, and bloody diarrhea. [place] [facility] [place] was found to have microangiopathic hemolytic anemia with decreasing platelet and Hgb and worsening renal function. She has also was experiencing some cognitive dysfunction, all consistent with TTP/HUS. She was initiated on Plasma exchange with improvement in her plt count and Hgb, but no infectious etiology for syndrome was identified. On 12/20, patient had a low grade fever in the setting of worsening confusion and SOB with bilat pulmonary opacities. She was started empirically on vanco and zosyn for possible HAP. She also had an MRI of the brain, for which she underwent HD x3 afterwards to remove Gadolinium to prevent NSF. Blood and urine cultures subsequently grew MRSA. Her mental status improved with antibiotics, HD line was removed yesterday 12/24. Most likely etiology of her MRSA bacteremia is from a line infection, therefore, we would recommendat least 3 weeks of IV vancomycin therapy from date of line removal (12/24 - 01/14). She is reporting some back pain today, which should be monitored, but I have a low suspicion for another foci of infection. Would continue the vancomycin 1 gram IV Q24 hours for now, but she will need her creatinine and vancomycin troughs monitored. We will await stable dosing prior to placing final vancomycin recommendations. Would consult with pharmacy about vancomycin dose once we know where her renal function settles out. Recommendations: ?? Continue Vancomycin 1 gram IV [id number] ?? Vancomycin trough prior to 4th dose, or sooner per pharmacy if dramatically worsening renal function ?? Trend renal function ?? Final OPAT recommendations to follow Please call with any further questions or concerns. CODY POSADA MD 12/25/2012 4:09 PM Attending Addendum: I have seen and examined the patient, reviewed the data and agree with the note by Dr. Posada. Limited MRSA from a line, with rapid clearance, no evidence for infected thrombus -usually they arebacteremic for longer. Line is not out. Will give a course of vanco, levels fluctuating due to changing GFR. Will need to closely follow levels and adjust accordingly. * Brian Velazco MD - 12/25/2012 3:16 PM EDT [facility] INPATIENT FOLLOW UP PATIENT: Anum Henriquez : 1960 ROOM: [address] [place] [address] ID: [id number] y.o. 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 Subjective: Continues to feel well, ambulating but c/o fatigue MEDS: ??? vancomycin 750 mg Intravenous Q24H ??? enoxaparin 1 mg/kg/dose Subcutaneous Q24H KATIE ??? DISCONTD: vancomycin 1 g Intravenous Q24H ??? multivitamin 1 tablet Oral Daily ??? hydrocortisone Topical BID ??? magnesium oxide 400 mg Oral BID ??? esomeprazole 40 mg Intravenous BID ??? DISCONTD: piperacillin-tazobactam 3.375 g Intravenous Q8H ??? folic acid 1 mg Oral Daily ??? chlorhexidine 15 mL Oral BID ??? sodium chloride 0.9 % 5 mL Intravenous Q12H EXAM: Last value Range last 24 hrs Temperature Temp: 36.7 ??C (98.1 ??F) Temp: [36.7 ??C (98.1 ??F)-37 ??C (98.6 ??F)] Heart Rate Heart Rate: 86 Heart Rate: [68-87] Blood Pressure BP: 138/70 mmHg BP: (116-144)/(64-88) Respiratory Rate Resp: 18 Resp: [18] SpO2 SpO2: 95 % SpO2: [94 %-95 %] Art BP BP (Arterial Line): -- Wt Readings from Last 3 Encounters: 12/25/12 70.2 kg (154 lb 12.2 oz) 12/25/12 70.2 kg (154 lb 12.2 oz) Intake/Output Summary (Last 24 hours) at 12/25/12 1516 Last data filed at 12/25/12 1200 Gross per 24 hour Intake 928 ml Output 3250 ml Net -2322 ml Gen: Alert and awake, oriented x 3 Neck: neck line removed, site looks good. Lungs: CTA b/l no rales Heart: S1/S2 normal, no murmurs, rubs, gallop Abd: +BS, no distended Extrem: edema + in dependent areas LABS: Lab Results Component Value Date WBC 6.7 12/25/2012 RBC 3.00* 12/25/2012 HGB 8.8* 12/25/2012 HCT 26.9* 12/25/2012 MCV 89.7 12/25/2012 MCH 29.3 12/25/2012 MCHC 32.7 12/25/2012 PLATELET 264 12/25/2012 RDWCV 15.4* 12/25/2012 Lab Results Component Value Date Sodium 140 12/25/2012 Potassium 3.6 12/25/2012 Chloride 106 12/25/2012 CO2 27 12/25/2012 BUN 10 12/25/2012 Creatinine 2.01* 12/25/2012 Glucose Lvl 99 12/25/2012 Lab Results Component Value Date CALCIUM 8.3* 12/25/2012 Lab Results Component Value Date PHOS 3.4 12/25/2012 IMPRESSION/ RECOMMENDATIONS: 52 yo female admitted with history of bloody diarrhea and findings of microangiopathic hemolytic anemia/thrombocytopenia and non oliguric acute kidney injury likely from HUS. Started on plasma exchange daily until 12/20. (received 7 treatment total). [id number] is normal and infectious work-up is negative so because of gadolinium exposure and mental status improved after hd. DELVIS- urine output of 3.5 L which might be an early sign of renal recovery. Cr continues to rise butwill have to follow daily cr to monitor for renal recovery. No signs of uremia today. No acute needfor AUTO CLUTCH SPECIALIST today. Will need to assess daily for signs of uremia and need for hd. Recs: -dose vanco per levels. Check daily vanco levels given renal insufficiency. -Anemia- hb improved Check iron studies(tibc, ferritin, tsat, iron). Consider starting Epogen. -check repeat complements since pt is off plasmapheresis. - MRSA bacteremia- cont vanco. - found to have b/l lower extremity DVT and started on renal dosed lovenox. - Avoid nephrotoxins - Renal dose meds . Seen and discussed with Dr. Velazco Renal Staff: This patient is seen and examined with Dr. Greene and I agree with her note and make the following additional comments: Patient in good spirits, appetite fair, no n/v/d/abd pain. Legs remain swollen. Below knee calf vein dvts identified. Lovenox given today. More GUEVARA today despite neg fluid balance. Tender at prior rij site but no erythema or edema. Old picc site asymptomatic. To my ear, she has decreased bs both bases and a few crackles and mild egophony L>R. Mentation is clear and there is no asterixis or myoclonus or even action tremor today. Other exam as above. Cr has crept up but there is no indication thus far to resume HD. C3 still low but improved. C2 was low, not repeated. Will have to check into significance, if any. Would follow cr closely along with hemolysis parameters, plts, and hb. Epo titrated to hb 10-11 is reasonable as bp is normal. Check ferritin to make sure iron stores adequate. Tsat may not be reliable with recent prbcs. * Akiko Boss RD - 12/25/2012 12:35 PM EDT Nutrition Follow-Up Note: S: Per pt: I'm not eating 100% Appetite: fair Chewing/Swallowing: not discussed N/V: denies O: Patient Active Problem List Diagnoses Code ??? Hemorrhagic colitis 558.9 ??? Thrombocytopenia 287.5 ??? Hyperthyroidism 242.90 ??? 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 Henriquez was in very good spirits after a visit [facility]. She reports her appetite is fair, eating about 50% with a goal of 100%. Discussed how this is a goal to work towards, but sheis doing well in her efforts. She denied any nutrition requests, questions, or additional snacks atthis time. Continue to monitor. P: Continue current diet. [place] food choices as able. Work towards increasing appetite to baseline. * Haris Jarvis MD - 12/25/2012 10:06 AM EDT Inpatient Hematology/Oncology/SCT Progress Note Patient info: Name: Anum Henriquez LOS: Hospital Day 12 days ID: Anum Henriquez is a 52 y.o. 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 Received plasma exchange x7 days, last day 12/20. Day 6 Vancomycin IV (12/25) Hospital Problem List: Patient Active Problem List Diagnoses Code ??? Hemorrhagic colitis 558.9 ??? Thrombocytopenia 287.5 ??? Hyperthyroidism 242.90 ??? 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 - Nursing reports no melanous stools (12/22) - less delirious, decreased [facility] sx this afternoon. Vitals: Last value Range last 24 hrs Temperature Temp: 37 ??C (98.6 ??F) Temp: [36.8 ??C (98.2 ??F)-37 ??C (98.6 ??F)] Heart Rate Heart Rate: 84 Heart Rate: [68-87] Blood Pressure BP: 138/70 mmHg BP: (116-144)/(64-88) Respiratory Rate Resp: 18 Resp: [18] SpO2 SpO2: 94 % SpO2: [94 %-98 %] Intake/Output Summary (Last 24 hours) at 12/25/12 1006 Last data filed at 12/25/12 0700 Gross per 24 hour Intake 808 ml Output 2950 ml Net -2142 ml Patient Vitals for the past 168 hrs: Weight 12/25/12 0654 70.2 kg (154 lb 12.2 oz) 12/23/12 0740 73.3 kg (161 lb 9.6 oz) 12/21/12 1704 75.751 kg (167 lb) 12/21/12 0325 76 kg (167 lb 8.8 oz) 12/20/12 0500 76.2 kg (167 lb 15.9 oz) 12/19/12 0645 76.1 kg (167 lb 12.3 oz) Admit wt:73.60 kg Change: -3kg (no weights in 2 days) Physical Exam: GEN: Looks so much better today, wearing make-up and sitting up in bed talking with her son. HEENT: PERRLA, EOMI, anicteric, exopthalmos, MMM, OP clear RESP: Decreased BS blbs, tubular breath sounds LLB, similar to yesterday, no crackles or rhonchi orwheeze CVS: RRR, S1, S2; no murmurs, rubs, gallops Abd: Soft, NTND, +BS. No rebound or guarding. No masses or HSM appreciated. EXT: Tense lower legs bl, less tense than yesterday. Skin: no lesions Neuro: AAOx3, No double vision this AM, EOMI, Jbctci-iw-meky improved, no past- pointing; rapid alternating movement and kdre-qz-mmyx intact. Patellar and biceps tendon reflexes are 2+ (no longer 3+). Antimicrobials: Vancomycin 1g q24 (12/20-) Day#4 Zosyn 3.375 q8 (12/20-) Medications: Scheduled Meds: ??? vancomycin 1 g Intravenous Q24H ??? multivitamin 1 tablet Oral Daily ??? hydrocortisone Topical BID ??? magnesium oxide 400 mg Oral BID ??? esomeprazole 40 mg Intravenous BID ??? DISCONTD: piperacillin-tazobactam 3.375 g Intravenous Q8H ??? folic acid 1 mg Oral Daily ??? chlorhexidine 15 mL Oral BID ??? sodium chloride 0.9 % 5 mL Intravenous Q12H Continuous Infusions: PRN Meds:.Vancomycin Level - MAR Order Reminder, haloperidol lactate, ondansetron, ondansetron, benzocaine, acetaminophen, prochlorperazine, prochlorperazine Labs: Recent Labs Basename 12/25/12 0414 12/24/12 1300 12/24/12 0345 WBC 5.5 7.3 6.0 HGB 8.3* 8.7* 7.9* HCT 24.9* 25.5* 23.8* PLATELET 228 249 221 NEUTROABS 3.63 5.53 4.32 Recent Labs Basename 12/25/12 0414 12/24/12 0358 12/23/12 0545 NA 140 138 138 K 3.6 3.7 4.2 CL 106 101 104 CO2 27 27 26 BUN 10 7* 11 CREATININE 2.01* 1.59* 1.52* Recent Labs Basename 12/25/12 0414 12/24/12 0358 12/23/12 0545 CALCIUM 8.3* 7.9* 7.8* MAGNESIUM 0.80 0.74 0.71 PHOS 3.4 2.9 2.9 Recent Labs Basename 12/25/12 0414 12/24/12 1300 12/24/12 0358 12/23/12 0545 AST -- -- -- -- ALT -- -- -- -- ALKPHOS -- -- -- -- BILITOT -- 0.4 -- -- BILIDIR -- 0.1 -- -- LDH 249* -- 237* 240* No results found for this basename: INR:3,PT:3,PTT:3 in the last 72 hours Other Labs: C3 Complement 12/16 - 66 (low) C4 Complement 12/16 - 4 (low) TSH 12/16 - 3.68 Free T4 -0.88 (borderline low) Microbiology: C diff 12/15 - neg Stool wbc + Stool cx OSH 12/10 - negative Shiga toxin 12/17 - pending Campylobacter antigen 12/17 - pending Stool Cx (looking for E.coli O157)- 12/16 HIV 12/16 pending - negative Blood culture 12/20 - 2 grew MRSA sensitive to Vancomycin Urine culture 12/20 - >100,000 Staph A Blood Culture 12/21 - pending Pertinent radiology/diagnostic studies: KUB 12/15: Mild gaseous distention of the small bowel with a few air-fluid levels. + gas within the colon. The pattern is most consistent with a partial small bowel obstruction. No evidence of free subdiaphragmatic air. MRI 12/16 Normal Bilateral DVT study 12/19: Interpretation: RIGHT: Non occlusive thrombus in one of the peroneal veins through the mid calf. No evidence of femoral to popliteal deep venous thrombosis. LEFT: Focal non occlusive thrombus in one of the posterior tibial veins in the mid calf. No evidence of femoral to popliteal deep venous thrombosis. Comparison: No previous study in our vascular lab database for comparison. Immune Studies: 12/16 C-ANCA, P-ANCA both negative 12/16 MPO Ab, 12/17 KIANA - negative, MRI Brain 12/21/12: pending Abnormal diffusion in the bilateral centrum semiovale associated with probable abnormal signal in the bilateral basal ganglia. These findings are subtle and nonspecific, but can be seen in setting of toxic metabolic processes, especially given the symmetry. The findings in the deep white matter and corpus callosum raises the possibility of acute demyelination. The findings are not characteristicof a vasculitis or cerebritis. Follow up imaging could be helpful to see how these changes evolve. Pathology: 12/17 Blood smear: Scistocytes are more than noted in the previous smear EGD 12/19 - Normal esophagus. - Gastric mucosal abnormality in the gastric body characterized by erythema/submucosal hemorrhage likely related to TTP. ASSESSMENT/PLAN: 52F w/ h/o Graves p/w acute onset abd pain, bloody diarrhea, n/v, anemia, thrombocytopenia, schistocytes, INR/PTT normal, SEN negative = clinical dx HUS- TTP. ADAMTS-13 returned normal. Stool studies negative. Received plasma x-change daily 12/14-12/20. Plts increased, LDH decreased. kidney function was getting better. However, acute desat/SIRS yesterday (low grade fever 38, tachy 110, tachpneic, 88%6LNC). CXR showed bibasilar opacities vs layering pleural effusions. No possibility of TRALI per transfusion med, as all donors were male. However, TACO (fluid-overload) likely contributing, also concern for HCAP. Started vanc and zosyn. Full infectious w/u. BCx grew staph aeurus both aerobic bottles <24hrs. ?source from PICC, plasmaphoresis line, possibly lung, possibly contaminated plasma? On 12/20 and 12/21 gibberish, +3 hyperreflexia symmetrically: Neuro involved. Likely all toxic-metabolic encephalopathy + delirium. Possible diagnosis include ?Lupus cerebritis, CONTENT MANAGER vasculitis, all d/t TTP-HUS? Delirogenic meds d/c'd. Has haldol prn. Additionally she received gallinium for MRI so dialysis was initiated on 12/21 She continues to show further improvement today - walked ot show on her own, lucid, decreasing double vision. neurologically this AM, cogent and lucid. She is Day #3 dialysis and Day #4 antibiotic therapy (12/23). Over the last few days she has made remarkable clinical progress and today she is even better. We need to make sure that dialysis continues to remove fluid from her as her lung exam still shows evidence of pleural effusions. We likely remove her central line today and I am following up with ID to see how long her expected course of vancomycin should be. An additional clinical question that is lingering is the cause of her anemia. She has received 3 RBC transfusions this hospitalization and for awhile her melanous stools provided a source for her lowHb. However, the GI loss has resolved, and yet her Hb is still decreasing. On going hemolysis seemsunlikely as her haptoglobin yesterday was 70 (present small amount of hemolysis consume the the haptoglobin). Her reticulocyte count is low and the reitculated hb is also low. We are measuring an EPOlevel today to see if her acute renal failure is contributing to the decreased production or if thelevel is normal, whether it may be present in the bone marrow. 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 Her thrombocytopenia and hemolysis (schistocytes) qualified her for treatment plasmapheresis. Additionally her DELVIS and altered mental status are part of the HUS-TTP spectrum. However, our studies to date have not revealed a definitive etiology. - PLT count slightly decreased -peripheral smear to f/u on HUS-TTP - ADAMTS-13 normal - stool cx negative (not enough growth to test for e coli O157:H7) - Low complement level - daily plts and LDH - trend CBC, transfuse if necessary. No transfusions today #MRSA bacteremia likely from line infection -On vancomycin IV Day 6 (12/25), dose was changed to 750mg due to renal insufficiency -Blood cultures have been negative since starting vancomycin -No lines in (only peripheral IV) #Thrombi in legs and arm -DVT in legs expanding and clot in right basilic vein -Now that we are more confident GI bleeding has resolved we are initiating therapeutic lovenox -dosing according to renal insufficiency # DELVIS - Likely 2/2 TTP-HUS plus decreased intake - Cr increased after diuresis - Received contrast with MRI (ordered as generic MRI brain) - Nephrology following - she is still clinically hypervolemic -tense edema in extremities and pleural effusions. #Hyperthyroidism/Graves -Appreciate Endocrinology input -stopping methimazole (12/16) -MPO-ANCA following for possible vasculitis - consider beta kirstie if develops tachycardia # FEN - repleting K, mag, phos prn - Regular diet, not taking much po # Other - DVT ppx - reassessing clot status and evaluating whether anticoagulation should be started. - GI: PPI IV BID CODE STATUS: Full Code JOHN KIMBALL MD, PGY-1 12/25/2012 Team A Pager #[phone] . I have independently interviewed and examined this patient and have personally reviewed the relevant clinical, laboratory and radiological data with the housestaff on rounds. Please refer to the comprehensive progress note above, with which I concur, for complete details of our encounter with this patient. I have reviewed and endorse the plan as outlined and have made any additions/corrections below. I have taken over the care of this patient from Dr. Ohara. The patient has a complicated multisystem illness. She presented with what looked like TTP/HUS. Shewas treated with plasma exchange with improvement in her disease parameters. She then developed staph aureus bacteremia and is currently on vancomycin for that. Her renal function has been impaired. She did receive 3 days of empiric dialysis but that was stopped 48 hours ago. This morning she generally feels well. She has been able to walk out to the front door and across the pod. She has had more swelling in her calves and extending to her thighs. Yesterday Doppler showed a below the calf bilateral DVT. Anticoagulation was withheld her fears of her recent GI bleeding. We plan to repeat a Doppler today. If there has been any clot extension I would recommend therapeutic doses of anticoagulation. I do not see evidence of reactivation of her TTP/HUS. We will continue to follow a daily haptoglobin, LDH and CBC. Her persistent anemia at this point appears to be a production problem. Given her impaired renal function she may have a low erythropoietin level. We will go ahead and check that. She might respond with an increase in reticulocyte if we administer ESAs * Rebecca Kumar - 12/24/2012 5:57 PM EDT Computer Instructor Encounter Note Patient Name: Anum Henriquez : [id number] MR#: [id number] Admit Date: 12/13/2012 7:56 PM Hospital Day 11 days Narrative: Visited patient as part of continuing care. I has seen her earlier in the day at [facility]. Assessment: Patient was lucid and in very good spirits. Intervention and Outcome: The encounter provided spiritual and emotional support. Follow-up: Visit before [facility]. Time in Direct Care: 10 minutes Rebecca Kumar 12/24/2012 * Brian Velazco MD - 12/24/2012 4:54 PM EDT [facility] INPATIENT FOLLOW UP PATIENT: Anum Henriquze : 1960 ROOM: [address] [place] [address] ID: [id number] y.o. 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 Subjective: Pt is ambulating and took a shower this am. Feels well MEDS: ??? acetaminophen 650 mg Oral Once in dialysis ??? vancomycin 750 mg Intravenous Once ??? multivitamin 1 tablet Oral Daily ??? hydrocortisone Topical BID ??? magnesium oxide 400 mg Oral BID ??? esomeprazole 40 mg Intravenous BID ??? DISCONTD: piperacillin-tazobactam 3.375 g Intravenous Q8H ??? folic acid 1 mg Oral Daily ??? chlorhexidine 15 mL Oral BID ??? sodium chloride 0.9 % 5 mL Intravenous Q12H EXAM: Last value Range last 24 hrs Temperature Temp: 36.9 ??C (98.4 ??F) Temp: [36.6 ??C (97.9 ??F)-37 ??C (98.6 ??F)] Heart Rate Heart Rate: 85 Heart Rate: [69-85] Blood Pressure BP: 132/88 mmHg BP: (132-155)/(82-96) Respiratory Rate Resp: 16 Resp: [16-18] SpO2 SpO2: 98 % SpO2: [96 %-98 %] Art BP BP (Arterial Line): -- Wt Readings from Last 3 Encounters: 12/23/12 73.3 kg (161 lb 9.6 oz) 12/23/12 73.3 kg (161 lb 9.6 oz) Intake/Output Summary (Last 24 hours) at 12/24/12 1654 Last data filed at 12/24/12 1209 Gross per 24 hour Intake 660 ml Output 1750 ml Net -1090 ml Gen: Alert and awake, oriented x 3 Neck: R IJ HD line, mild tenderness Lungs: CTA b/l no rales Heart: S1/S2 normal, no murmurs, rubs, gallop Abd: +BS, no distended Extrem: edema + in dependent areas LABS: Lab Results Component Value Date WBC 7.3 12/24/2012 RBC 2.86* 12/24/2012 HGB 8.7* 12/24/2012 HCT 25.5* 12/24/2012 MCV 89.2 12/24/2012 MCH 30.4 12/24/2012 MCHC 34.1 12/24/2012 PLATELET 249 12/24/2012 RDWCV 15.7* 12/24/2012 Lab Results Component Value Date Sodium 138 12/24/2012 Potassium 3.7 12/24/2012 Chloride 101 12/24/2012 CO2 27 12/24/2012 BUN 7* 12/24/2012 Creatinine 1.59* 12/24/2012 Glucose Lvl 95 12/24/2012 Lab Results Component Value Date CALCIUM 7.9* 12/24/2012 Lab Results Component Value Date PHOS 2.9 12/24/2012 IMPRESSION/ RECOMMENDATIONS: 52 yo female admitted with history of bloody diarrhea and findings of microangiopathic hemolytic anemia/thrombocytopenia and non oliguric acute kidney injury likely from HUS. Started on plasma exchange daily until 12/20. (received 7 treatment total). [id number] is normal and infectious work-up is negative so because of gadolinium exposure and mental status improved after hd. DELVIS- good urine output which is reassuring. Will follow up labs in am and assess daily for further need of hd. Recs: - Remove R IJ HD line. -dose vanco per levels. -Anemia- hb improved after prbc transfusion. Check iron studies(tibc, ferritin, tsat, iron). Consider starting Epogen. -Start multivite q daily. -check repeat complements since pt is off plasmapheresis. - MRSA bacteremia- cont vanco. Discontinue zosyn. - Avoid nephrotoxins - Renal dose meds Discussed with primary team. Seen and discussed with Dr. Velazco Renal Staff: This patient is seen and examined with Dr. Greene and I agree with her note and make the following additional comments: Patient in good spirits today, ambulating on moreno with walker with good endurance and balance. Mainc/o is soreness at hd cath site. PICC is out. General exam as above. Has mod edema still. Wt is down to 73.3kg (near entry). UO is increasing. Unclear if she will need more HD at this point but line should come out anyway. She understands that it may need replacement if cr rises or neurologic sx recur. Improvement in platelets and stable hb (after prbcs) is very encouraging. Please recheck c3 andc4 if not done yet this week. * Tyson Patel MD - 12/24/2012 4:05 PM EDT INFECTIOUS DISEASE DAILY PROGRESS NOTE Name: Anum Henriquez : 1960 Sex: female Active ID Problem List: MRSA bacteremia TTP/HUS s/p plasma exchange Pertinent Medications: Zosyn (12/20 - present) Vanco (12/20 - present) Hospital course: Patient received Plasma exchange x7, which was stopped 12/20. [id number] negative. 2-3 days ago, patient developed acute MS changes with SOB and a CXR showing evidence of volume overload, and a low grade fever. She was diagnosed with a transfusion related reaction and diuresed. She was also started onVanco and Zosyn empirically. MS appeared to worsen and patient developed myoclonic jerks, so neurology was consulted a couple days ago and they recommended an MRI with gadolinium. Neurology felt thatMS changes were due to toxic metabolic encephalitis and should improve as underlying issues are addressed. Blood and urine cultures subsequently grew MRSA. MS improved with antibiotics. Due to ARF, patient underwent HD afterwards x3 (12/21 - 12/09)5. Plan to pull HD line and PICC line now that HD is finished. She will be observed off HD. Subjective: Feeling much better. Mentally clearing. Still with some abdominal cramping/discomfort, but this is improving. Bowel movements more formed and normal color - denies blood or black tarry stool. Still with intermittent nausea, but denies vomiting. Intermittent SOB with talking - needed some oxygen yesterday evening and overnight. Denies F/C. + LE edema. Ankles sore from edema, but denies any other painful/swollen joints. Denies back pain. Reports some discomfort surrounding right IJ line. RUE PICCremoved. Physical Exam: Temp: [36.6 ??C (97.9 ??F)-37 ??C (98.6 ??F)] Heart Rate: [69-85] Resp: [16-18] BP: (132-155)/(82-96) SpO2: [96 %-98 %] Gen: NAD Resp: Crackles bilat bases CV: RRR, S1/S2, no m/r/g Abd: Soft, ND, NABS, + mild diffuse central tenderness Ext: + bilat LE edema Skin: No rash Neuro: A&Ox3 Lines: RUE PICC removed. Right IJ in place with some surrounding tenderness Laboratory in Last 24 Hours: CBC Lab Results Component Value Date WBC 7.3 12/24/2012 Hemoglobin 8.7* 12/24/2012 Hematocrit 25.5* 12/24/2012 Platelets 249 12/24/2012 Lab Results Component Value Date Sodium 138 12/24/2012 Potassium 3.7 12/24/2012 Chloride 101 12/24/2012 CO2 27 12/24/2012 BUN 7* 12/24/2012 Creatinine 1.59* 12/24/2012 Glucose Lvl 95 12/24/2012 LFT's No results found for this basename: alkphos, ast, albumin, bilidir, bilitot, alt, prot Microbiology: Blood Culture: 12/20: 2/2 MRSA 12/21: NGTD 12/22: NGTD 12/23: NGTD Urine Culture: 12/20: Greater than 100,000 cfu/ml Staphylococcus aureus, MRSA 12/23: Pending Radiology/Imaging: MRI Brain 12/21: Abnormal diffusion in the bilateral centrum semiovale associated with probable abnormal signal in the bilateral basal ganglia. These findings are subtle and nonspecific, but can be seen in setting of toxic metabolic processes, especially given the symmetry. The findings in the deep white matter and corpus callosum raises the possibility of acute demyelination. The findings are not characteristic of a vasculitis or cerebritis. Follow up imaging could be helpful to see how these changes evolve. CXR 12/20: Increase in bilateral pulmonary opacities, however unable to determine if effusions increased in size due to differences in study. Lateral film recommended if there is clinical concern Assessment: 52 yo female with a h/o Grave's disease who presented initially to an OSH with 2-3 days of abdominal pain, nausea, and bloody diarrhea. [place] [facility] [place] was found to have microangiopathic hemolytic anemia with decreasing platelet and Hgb and worsening renal function. She has also was experiencing some cognitive dysfunction, all consistent with TTP/HUS. She was initiated on Plasma exchange with improvement in her plt count and Hgb, but no infectious etiology for syndrome has been identified. On 12/20, patient had a low grade fever in the setting of worsening confusion and SOB with bilat pulmonary opacities. She was started empirically on vanco and zosyn for possible HAP, but also diuresed as she showed evidence of volume overload. Blood and urine cultures subsequently grew MRSA. Her mental status improved with antibiotics, and she has been run on HD the last 3 days due to administration of Gadolinium contrast for a brain MRI in the setting of her DELVIS. She is now finished with HD, but her HD line remains in place. Most likely etiology of her MRSA bacteremia is from a line infection so the HD line should be removed immediately. We have a low suspicion for a more serious infection, such as infective endocarditisgiven lack of stigmata of IE and quickly clearing bacteremia. There are no other foci of infection identified. Therefore, we would recommend at least 3 weeks of IV vancomycin therapy from date of line removal. Dose, however, is still to be determined given patient's DELVIS and recent HD. Her last doseof vancomycin was yesterday evening, so we would recommend re-checking a vancomycin trough this evening (about 24 hours after her last dose) and then consulting with pharmacy about an appropriate dosing regimen. Recommendations: ?? D/C Zosyn ?? Vancomycin trough this evening (about 24 hours after last dose) ?? Continue Vancomycin based on trough check - would consult with pharmacy regarding dosing ?? Remove HD cath line ID Consult GREEN team will continue to follow patient CODY POSADA MD 12/24/2012 4:05 PM Attending Addendum: I have seen and examined the patient, reviewed the data and agree with the note by Dr. Posada. Fever developed in setting of intravascular catheters and bacteremia quickly found and cleared. Line remains in though, and is not in use so should be removed. Duration could feasibly be on the shorter side presuming line out and no more positive cultures. * Ankit Ohara MD - 12/24/2012 11:55 AM EDT Staff Addendum I have seen and examined the patient and reviewed the pertinent labs and studies. I have discussed the patient with the resident. I agree with the notes and assessment per the resident note, Dr Kimball.Please see resident note for details of vitals, labs, exam, and further details. On exam, today she remians lucid, alert and O x 3. She is watching TV this AM with her son present. She is ambulating and showered this AM.Once again, pt is back to normal from a mental status standpoint. She cleared up markedly rapidly after the initiation of dialysis (the following morning- Sunday AM). She has completed 3 d of dialysis I performed a complete exam On exam, she is alert, Ox3 and asking indepth, technical questions about her clinical course to date and plans VSS; afeb (back to admit wt) Lung show dec BS 1/[address] up bilat No trembling Brisk relfex but equal bilat; no UMN findings 1+ edema bilat LE From neuro standpoint, no dysmetria and No UMN findings.Mental status as noted above Her labs indicate that her Hgb is down alittle and her plates continue to rise (186K) Plans #?HUS- At this point, unifying diagnosis most likely HUS. Plasma exchange last done on Sunday and she continues to improve from a clinical and lab standpoint. (She rec'd 3 u RBCs since admission) We will re-check Hemolysis labs given slow downward drift of Hgb. Recent stool guaiacs have been negative #GI bleed - THere is no further melena, but her Hgb shows a slow downward trend, w/o further evidence of hemolysis #ID - staph aureus bacteremia w/ UTI She is currently Day 5 of zosyn/vanco. She reamins afeb since starting rx. Repeat BC from Sunday showed NGTD Pull out lines that are not needed - we will review with nursing staff and Renal to determine if wecould pull central line. ID evaluated pt this AM (Dr Posada) - appreciate their input Continue folate and check iron studies Check Doppler of LUE #Renal/FEN S/p 3 days of hemodialysis #FEN Fluid status getting back to baseline with fluid removal on dialysis. Lung exam much better and still w/ 1+ edema bilat LE. Re-dose vanco after dialysis #Neuro Repeat MRI done on Sun showed new changes - c/w possible metabolic encephalopathy. Her neuro exam improved drastically with hemodialysis (rec'd dialysis Sat nite and near normal on Sunday AM). I met with the pt, her son today to review all in detail. TIme: 37 mins with the majority spent in coordination of care K Alannah PANTOJA Staff * Betsy Forman, PT - 12/24/2012 11:36 AM EDT Physical Therapy Treatment Note Visit #: 08/18 Patient profile: Pt. is a 52 y.o. female admitted on 12/13/2012 by Fabi Grimm MD w/ PMH of Graves on methimazole, transferred from Medicine with clinical picture c/w TTP-HUS in setting of 3-4 days bloody diarrhea. Now receiving plasma exchange. PMH: No past medical history on file. No past surgical history on file. 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 - Giving 1U RBCs - Last planned plasma exchange on 12/20, platelets still continue to rise - Zosyn and Vanc Day#4 (12/23) for suscepted HCAP and staph A bacteremia - Received Dialysis Day 08/11 after receiving gadalonium - Neuro consult - mental status changes most likely toxic metabolic encephalopathy - MRI shows changes in basal ganglia consistent with toxic/metabolic S: Pt states she feels so much better O: Patient seen to work on funct mob and ex and gait- trafining to address goals. Pt demonstrated the following ?? MS: pleasant, appropriate, able to follow instructions appropriate, cooperative ?? Mob: sit- stand and transfers with S ?? Exs: instruction in LE ROM and strength exs in sitting, instruction in breathing ex ?? IS: 1200 ml - 1500 ml ?? PsO2: in 90s on RA ?? Gait: Pt amb 300 feet with FWW and S, steady with walker, decreased push- off, 15 feet without walker, unsteady, ?? LE swelling Pain: see above Education: Pt/family education ongoing reg safety and role of Therapy Staff Communication: Patient status, treatment, and mobility recommendations discussed with nursing/other staff. A: Pt much improved MS and mob status from last week. Pt amb well with FWW and S. Pt will benefit from ongoing therapeutic interventions to achieve therapy goals Physical Therapy Goals: To be achieved by 12-28-12 . Ongoing 1. Pt. to demonstrate knowledge of precautions and weight bearing limitations during functional activities. 2. Pt. to demonstrate understanding of appropriate exercises. 3. Pt. to perform bed mobility with S . 4. Pt. to perform transfers with c.g 5. Pt. to ambulate 25 feet with or without device and c.g 6. Family or caregiver to demonstrate understanding of therapeutic interventions to support the care of the patient. Discharge Recommendations: Might benefit from Home PT initially after Dc Equipment: presently uses FWW P: Cont per POC as outlined on initial eval. Total time spent with patient: 25 minutes Total timed interventions: 25 minutes Pager: [phone] BETSY FORMAN PT Physical Therapy Rehabilitation Department * John Kimball - 12/24/2012 6:50 AM EDT Inpatient Hematology/Oncology/SCT Progress Note Patient info: Name: Anum Henriquez LOS: Hospital Day 11 days ID: Anum Henriquez is a 52 y.o. 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 Received plasma exchange x7 days, last day 12/20. Hospital Problem List: Patient Active Problem List Diagnoses Code ??? Hemorrhagic colitis 558.9 ??? Thrombocytopenia 287.5 ??? Hyperthyroidism 242.90 ??? 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 Resolved problems: #Melanous stools #Delerium 24 Hour Events: -Using 3L O2 via NC overnight because she felt a bit SOB, no desats though as per nursing -She is walking and with the walking she feels a bit SOB (pleural effusions) - No double vision this morning and vertigo decreasing again today - was re dosed with Vancomycin yesterday (750mg) following dialysis - Zosyn and Vanc Day#5 (12/24) for suscepted HCAP and staph A bacteremia - Dialysis Day 3/ was 12/23 after receiving gadalonium Subjective -feels much better this AM -given pt's low cr clearance, decision was made to start dialysis for plan x3 days. - Nursing reports no melanous stools (12/22) - less delirious, decreased UMN sx this afternoon. Vitals: Last value Range last 24 hrs Temperature Temp: 36.6 ??C (97.9 ??F) Temp: [36.6 ??C (97.9 ??F)-37.1 ??C (98.8 ??F)] Heart Rate Heart Rate: 76 Heart Rate: [69-96] Blood Pressure BP: 132/82 mmHg BP: (118-155)/(66-96) Respiratory Rate Resp: 16 Resp: [16-20] SpO2 SpO2: 96 % SpO2: [95 %-98 %] Intake/Output Summary (Last 24 hours) at 12/24/12 1159 Last data filed at 12/24/12 1113 Gross per 24 hour Intake 540 ml Output 4175 ml Net -3635 ml Patient Vitals for the past 168 hrs: Weight 12/23/12 0740 73.3 kg (161 lb 9.6 oz) 12/21/12 1704 75.751 kg (167 lb) 12/21/12 0325 76 kg (167 lb 8.8 oz) 12/20/12 0500 76.2 kg (167 lb 15.9 oz) 12/19/12 0645 76.1 kg (167 lb 12.3 oz) Admit wt:73.60 kg Change: 0 (no weights in 2 days) Physical Exam: GEN: Looks so much better today, wearing make-up and sitting up in bed talking with her son. HEENT: PERRLA, EOMI, anicteric, exopthalmos, MMM, OP clear RESP: Decreased BS blbs, tubular breath sounds LLB, similar to yesterday, no crackles or rhonchi orwheeze CVS: RRR, S1, S2; no murmurs, rubs, gallops Abd: Soft, NTND, +BS. No rebound or guarding. No masses or HSM appreciated. EXT: Tense lower legs bl, less tense than yesterday. Skin: no lesions Neuro: AAOx3, No double vision this AM, EOMI, Yotjmb-wk-hfds improved, no past- pointing; rapid alternating movement and tjng-ou-hsai intact. Patellar and biceps tendon reflexes are 2+ (no longer 3+). Antimicrobials: Vancomycin 1g q24 (12/20-) Day#4 Zosyn 3.375 q8 (12/20-) Medications: Scheduled Meds: ??? acetaminophen 650 mg Oral Once in dialysis ??? vancomycin 750 mg Intravenous Once ??? multivitamin 1 tablet Oral Daily ??? hydrocortisone Topical BID ??? magnesium oxide 400 mg Oral BID ??? esomeprazole 40 mg Intravenous BID ??? piperacillin-tazobactam 3.375 g Intravenous Q8H ??? folic acid 1 mg Oral Daily ??? chlorhexidine 15 mL Oral BID ??? sodium chloride 0.9 % 5 mL Intravenous Q12H Continuous Infusions: PRN Meds:.haloperidol lactate, ondansetron, ondansetron, benzocaine, acetaminophen, prochlorperazine, prochlorperazine Labs: Recent Labs Basename 12/24/12 0345 12/23/12 0545 12/22/12 1316 WBC 6.0 6.5 10.6* HGB 7.9* 6.8* 7.3* HCT 23.8* 20.9* 21.9* PLATELET 221 186 165 NEUTROABS 4.32 4.80 8.81* Recent Labs Basename 12/24/12 0358 12/23/12 0545 12/22/12 0500 NA 138 138 138 K 3.7 4.2 3.8 CL 101 104 101 CO2 27 26 29 BUN 7* 11 15 CREATININE 1.59* 1.52* 1.53* Recent Labs Basename 12/24/12 0358 12/23/12 0545 12/22/12 0500 CALCIUM 7.9* 7.8* 7.1* MAGNESIUM 0.74 0.71 0.71 PHOS 2.9 2.9 2.6 Recent Labs Basename 12/24/12 0358 12/23/12 0545 12/22/12 0500 AST -- -- -- ALT -- -- -- ALKPHOS -- -- -- BILITOT -- -- -- BILIDIR -- -- -- LDH 237* 240* 232* Recent Labs Basename 12/22/12 0500 INR 1.4* PT 17.1* PTT 36* Other Labs: C3 Complement 12/16 - 66 (low) C4 Complement 12/16 - 4 (low) TSH 12/16 - 3.68 Free T4 -0.88 (borderline low) Microbiology: C diff 12/15 - neg Stool wbc + Stool cx OSH 12/10 - negative Shiga toxin 12/17 - pending Campylobacter antigen 12/17 - pending Stool Cx (looking for E.coli O157)- 12/16 HIV 12/16 pending - negative Blood culture 12/20 - 2/ grew MRSA sensitive to Vancomycin Urine culture 12/20 - >100,000 Staph A Blood Culture 12/21 - pending Pertinent radiology/diagnostic studies: KUB 12/15: Mild gaseous distention of the small bowel with a few air-fluid levels. + gas within the colon. The pattern is most consistent with a partial small bowel obstruction. No evidence of free subdiaphragmatic air. MRI 12/16 Normal Bilateral DVT study 12/19: Interpretation: RIGHT: Non occlusive thrombus in one of the peroneal veins through the mid calf. No evidence of femoral to popliteal deep venous thrombosis. LEFT: Focal non occlusive thrombus in one of the posterior tibial veins in the mid calf. No evidence of femoral to popliteal deep venous thrombosis. Comparison: No previous study in our vascular lab database for comparison. Immune Studies: 12/16 C-ANCA, P-ANCA both negative 12/16 MPO Ab, 12/17 KIANA - negative, MRI Brain 12/21/12: pending Abnormal diffusion in the bilateral centrum semiovale associated with probable abnormal signal in the bilateral basal ganglia. These findings are subtle and nonspecific, but can be seen in setting of toxic metabolic processes, especially given the symmetry. The findings in the deep white matter and corpus callosum raises the possibility of acute demyelination. The findings are not characteristicof a vasculitis or cerebritis. Follow up imaging could be helpful to see how these changes evolve. Pathology: 12/17 Blood smear: Scistocytes are more than noted in the previous smear EGD 12/19 - Normal esophagus. - Gastric mucosal abnormality in the gastric body characterized by erythema/submucosal hemorrhage likely related to TTP. ASSESSMENT/PLAN: 52F w/ h/o Graves p/w acute onset abd pain, bloody diarrhea, n/v, anemia, thrombocytopenia, schistocytes, INR/PTT normal, SEN negative = clinical dx HUS- TTP. ADAMTS-13 returned normal. Stool studies negative. Received plasma x-change daily 12/14-12/20. Plts increased, LDH decreased. kidney function was getting better. However, acute desat/SIRS yesterday (low grade fever 38, tachy 110, tachpneic, 88%6LNC). CXR showed bibasilar opacities vs layering pleural effusions. No possibility of TRALI per transfusion med, as all donors were male. However, TACO (fluid-overload) likely contributing, also concern for HCAP. Started vanc and zosyn. Full infectious w/u. BCx grew staph aeurus both aerobic bottles <24hrs. ?source from PICC, plasmaphoresis line, possibly lung, possibly contaminated plasma? On 12/20 and 12/21 gibberish, +3 hyperreflexia symmetrically: Neuro involved. Likely all toxic-metabolic encephalopathy + delirium. Possible diagnosis include ?Lupus cerebritis, CONTENT MANAGER vasculitis, all d/t TTP-HUS? Delirogenic meds d/c'd. Has haldol prn. Additionally she received gallinium for MRI so dialysis was initiated on 12/21 She continues to show further improvement today - walked ot show on her own, lucid, decreasing double vision. neurologically this AM, cogent and lucid. She is Day #3 dialysis and Day #4 antibiotic therapy (12/23). Over the last few days she has made remarkable clinical progress and today she is even better. We need to make sure that dialysis continues to remove fluid from her as her lung exam still shows evidence of pleural effusions. We likely remove her central line today and I am following up with ID to see how long her expected course of vancomycin should be. 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 Her thrombocytopenia and hemolysis (schistocytes) qualified her for treatment plasmapheresis. Additionally her DELVIS and altered mental status are part of the HUS-TTP spectrum. However, our studies to date have not revealed a definitive etiology. - PLT count increased - ADAMTS-13 normal - stool cx negative (not enough growth to test for e coli O157:H7) -Low complement level - daily plts and LDH - trend CBC, transfuse if necessary. No transfusions today #Staph aureus bacteremia with sepsis: on vancomycin currently (started yesterday). -Blood cultures have been negative since starting vancomycin -Likely pulling central line today, will receive Vancomycin via peripheral IV -Ensure vancomycin levels are accurate considering unknown GFR at present # DELVIS - Likely 2/2 TTP-HUS plus decreased intake - Cr increased after diuresis - Received contrast with MRI (ordered as generic MRI brain) - Will start dialysis tonight for fluid overload, DELVIS, possible clinical uremia (clonus, etc), and to prevent gadolinum-induced nephrogenic systemic fibrosis - Nephrology following - she is still clinically hypervolemic - +2.4kg over admission wt - repeat bmp this afternoon - if cr worse, hold further lasix today # Bilateral distal calf thrombi, non-occlussive - R leg in peroneal vein and L leg posterior tibial. -Using anticoagulant therapy in the context of her HUS-TTP would put her at too high of a risk for bleeding. Holding currently. - f/u doppler this week, also will look -doppler of arms b/c of arm pain to look for thrombus #Hyperthyroidism/Graves -Appreciate Endocrinology input -stopping methimazole (12/16) -MPO-ANCA following for possible vasculitis - consider beta kirstie if develops tachycardia # FEN - repleting K, mag, phos prn - Regular diet, not taking much po # Other - DVT ppx - SCDs. No thx anticoag given b/c HUS-TTP - GI: PPI IV BID CODE STATUS: Full Code JOHN KIMBALL MD, PGY-1 12/24/2012 Team A Pager #[phone] * Brian Velazco MD - 12/23/2012 5:41 PM EDT [facility] INPATIENT FOLLOW UP PATIENT: Anum Henriquez : 1960 ROOM: [address] [place] [address] ID: 52 y.o. 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 Subjective: Pt seen on hd. C/o headaches and chills. MEDS: ??? acetaminophen 650 mg Oral Once in dialysis ??? vancomycin 750 mg Intravenous Once ??? multivitamin 1 tablet Oral Daily ??? hydrocortisone Topical BID ??? alteplase 2 mg INTRA-CATHETER Once in dialysis ??? potassium chloride 20 mEq Oral BID ??? magnesium oxide 400 mg Oral BID ??? Vancomycin Level - MAR Order Reminder NOT APPLICABLE Once ??? esomeprazole 40 mg Intravenous BID ??? piperacillin-tazobactam 3.375 g Intravenous Q8H ??? folic acid 1 mg Oral Daily ??? chlorhexidine 15 mL Oral BID ??? sodium chloride 0.9 % 5 mL Intravenous Q12H EXAM: Last value Range last 24 hrs Temperature Temp: 37.1 ??C (98.8 ??F) Temp: [36.6 ??C (97.9 ??F)-37.1 ??C (98.8 ??F)] Heart Rate Heart Rate: 96 Heart Rate: [70-98] Blood Pressure BP: 118/66 mmHg BP: (104-138)/(64-84) Respiratory Rate Resp: 20 Resp: [18-20] SpO2 SpO2: 96 % SpO2: [93 %-98 %] Art BP BP (Arterial Line): -- Wt Readings from Last 3 Encounters: 12/23/12 73.3 kg (161 lb 9.6 oz) 12/23/12 73.3 kg (161 lb 9.6 oz) Intake/Output Summary (Last 24 hours) at 12/23/12 1741 Last data filed at 12/23/12 1600 Gross per 24 hour Intake 900 ml Output 825 ml Net 75 ml Gen: Alert and awake, oriented x 3 Neck: R IJ HD line, mild tenderness Lungs: CTA b/l no rales Heart: S1/S2 normal, no murmurs, rubs, gallop Abd: +BS, no distended Extrem: edema + in dependent areas LABS: Lab Results Component Value Date WBC 6.5 12/23/2012 RBC 2.29* 12/23/2012 HGB 6.8* 12/23/2012 HCT 20.9* 12/23/2012 MCV 91.3 12/23/2012 MCH 29.7 12/23/2012 MCHC 32.5 12/23/2012 PLATELET 186 12/23/2012 RDWCV 14.7* 12/23/2012 Lab Results Component Value Date Sodium 138 12/23/2012 Potassium 4.2 12/23/2012 Chloride 104 12/23/2012 CO2 26 12/23/2012 BUN 11 12/23/2012 Creatinine 1.52* 12/23/2012 Glucose Lvl 92 12/23/2012 Lab Results Component Value Date CALCIUM 7.8* 12/23/2012 Lab Results Component Value Date PHOS 2.9 12/23/2012 IMPRESSION/ RECOMMENDATIONS: 52 yo female admitted with history of bloody diarrhea and findings of microangiopathic hemolytic anemia/thrombocytopenia and non oliguric acute kidney injury likely from HUS. Started on plasma exchange daily until 12/20. (received 7 treatment total). [id number] is normal and infectious work-up is negative so because of gadolinium exposure and mental status improved after hd. Pt s/p HD three days in a row. Pt seen on hd today. Tolerated treatment well. Since she has bacteremia, would recommend to remove all lines including hd cath and PIcc line. Will hold off on further dialysis for now and watch for signs of renal recovery. Recs: - remove all lines -vanco level- 9.5 today. Redose Vancomycin post HD 750 mg IV x 1 -Anemia- s/p 1 unit of prbc's today. Check iron studies(tibc, ferritin, tsat, iron). Consider starting Epogen. Start multivite q daily. -check repeat complements since pt is off plasmapheresis. - MRSA bacteremia- cont vanco. Consider discontinuing zosyn since MRSA was identified. - Avoid nephrotoxins - Renal dose meds Discussed with hematology. Seen and discussed with Dr. Velazco Renal Staff: This patient is seen and examined on HD with Dr. Greene and I agree with her note and make the following additional comments: mentation clear and myoclonus/asterixis/speech disturbance remain resolved.She is edematous and we set a UF goal of 2.5 liters for hd today (final tally not yet reported). Remains quite anemic. Had headache and chills but no hypotension and no meningismus. As above, suggestremoving both picc and hd/plasmapheresis line because of recent +blood cultures. If she needs further rx, we will need to replace. Her sanders dosing will need to be guided by levels as we can't be sure of her intrinsic clearance. Would check complement levels off plex this week. * Gianna Hdz OT - 12/23/2012 2:35 PM EDT OT Notes Pt unavailable for therapy today, off the floor for procedure. Will follow up tomorrow. Gianna Hdz OT Pager [phone] * Ankit Ohara MD - 12/23/2012 9:38 AM EDT Staff Addendum I have seen and examined the patient and reviewed the pertinent labs and studies. I have discussed the patient with the resident. I agree with the notes and assessment per the resident note, Dr Kimball.Please see resident note for details of vitals, labs, exam, and further details. On exam, today she is even more lucid than yesterday. She is watching TV this AM.She is ambulating and showered this AM.Once again, pt is back to normal from a mental status standpoint. She is alert,Ox3 and asking indepth, technical questions about her clinical course to date and plans She rec'd one unit of RBCs this AM (3 to date). Today is Day 3 for hemodialysis Exam I performed a complete exam VSS; afeb (back to admit wt) Lung show dec BS 1/[address] up bilat No trembling Brisk relfex but equal bilat 2+ edema bilat LE From neuro standpoint, no dysmetria and No UMN findings.Mental status as noted above Her labs indicate that her Hgb is down alittle and her plates continue to rise (186K) Plans #?HUS- At this point, unifying diagnosis uncertain, but likely HUS. Plasma exchange last done 3 d ago and she continues to improve from a clinical and lab standpoint. #GI bleed - THere is no further melena, but her Hgb shows a slow downward trend, w/o further evidence of hemolysis staph aureus bacteremia #ID - staph aureus bacteremia glenn from UTI She is currently Day 4 of zosyn/vanco. She reamins afeb since starting rx. Repeat BC from Sunday show NGTD Today's plans will include Diaylsis again (Day 2 3) Pull out lines that are not needed - we will review with nursing staff #Renal/FEN Day 3 3 of hemodialysis #FEN SHe needs diuesis - given pulm exam and pitting edema. Hopefully, Dialysis can remove 1 or more liters again today. Re-dose vanco after dialysis #Neuro Repeat MRI shows changes that are new - c/w possible metabolic encephalopathy (I reviewed findings with Dr Pastel of radiology) I appreciate Neuro/Nephrology and Blood Bank assistance I met with the pt, her daughter and today to review all in detail. TIme: 38 mins with the majority spent in coordination of care K Alannah PANTOJA Staff * John Kimball - 12/23/2012 6:56 AM EDT Inpatient Hematology/Oncology/SCT Progress Note Patient info: Name: Anum Henriquez LOS: Hospital Day 10 days ID: Anum Henriquez is a 52 y.o. 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 Received plasma exchange x7 days, last day 12/20. Hospital Problem List: Patient Active Problem List Diagnoses Code ??? Hemorrhagic colitis 558.9 ??? Thrombocytopenia 287.5 ??? Hyperthyroidism 242.90 ??? 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 - Giving 1U RBCs - Last planned plasma exchange on 12/20, platelets still continue to rise - Zosyn and Vanc Day#4 (12/23) for suscepted HCAP and staph A bacteremia - Received Dialysis Day 3/3 after receiving gadalonium - Neuro consult - mental status changes most likely toxic metabolic encephalopathy - MRI shows changes in basal ganglia consistent with toxic/metabolic Subjective -feels much better this AM -given pt's low cr clearance, decision was made to start dialysis for plan x3 days. - Nursing reports no melanous stools (12/22) - less delirious, decreased UMN sx this afternoon. Vitals: Last value Range last 24 hrs Temperature Temp: 36.9 ??C (98.4 ??F) Temp: [36.5 ??C (97.7 ??F)-37.1 ??C (98.8 ??F)] Heart Rate Heart Rate: 85 Heart Rate: [74-98] Blood Pressure BP: 128/79 mmHg BP: (104-138)/(64-90) Respiratory Rate Resp: 18 Resp: [18-20] SpO2 SpO2: 95 % SpO2: [92 %-98 %] Intake/Output Summary (Last 24 hours) at 12/23/12 0927 Last data filed at 12/23/12 0700 Gross per 24 hour Intake 1574 ml Output 1700 ml Net -126 ml Patient Vitals for the past 168 hrs: Weight 12/23/12 0740 73.3 kg (161 lb 9.6 oz) 12/21/12 1704 75.751 kg (167 lb) 12/21/12 0325 76 kg (167 lb 8.8 oz) 12/20/12 0500 76.2 kg (167 lb 15.9 oz) 12/19/12 0645 76.1 kg (167 lb 12.3 oz) 12/17/12 0719 76.5 kg (168 lb 10.4 oz) Admit wt:73.60 kg Change: 0 (no weights in 2 days) Physical Exam: GEN: Thin but WDWN woman lying in bed, NAD, grossly delirious, mumbling rapidly, shaking, mycoclonic jerks every few seconds. anxious-appearing. HEENT: PERRLA, EOMI, anicteric, exopthalmos, MMM, OP clear RESP: Decreased BS blbs, tubular breath sounds LLB, similar to yesterday, no crackles or rhonchi orwheeze CVS: RRR, S1, S2; no murmurs, rubs, gallops Abd: Soft, NTND, +BS. No rebound or guarding. No masses or HSM appreciated. EXT: Tense lower legs bl, less tense than yesterday. Skin: no lesions Neuro: AAOx3, No double vision this AM, EOMI, [place]-up-ngug improved, no past- pointing; rapid alternating movement and wyaj-if-xymh intact. Patellar and biceps tendon reflexes are 2+ (no longer 3+). Antimicrobials: Vancomycin 1g q24 (12/20-) Day#4 Zosyn 3.375 q8 (12/20-) Medications: Scheduled Meds: ??? vancomycin 500 mg Intravenous Once ??? hydrocortisone Topical BID ??? alteplase 2 mg INTRA-CATHETER Once in dialysis ??? potassium chloride 20 mEq Oral BID ??? magnesium oxide 400 mg Oral BID ??? Vancomycin Level - MAR Order Reminder NOT APPLICABLE Once ??? alteplase 0.1-2 mL INTRA-CATHETER Once in dialysis ??? Vancomycin Level - MAR Order Reminder NOT APPLICABLE Once ??? esomeprazole 40 mg Intravenous BID ??? piperacillin-tazobactam 3.375 g Intravenous Q8H ??? folic acid 1 mg Oral Daily ??? chlorhexidine 15 mL Oral BID ??? sodium chloride 0.9 % 5 mL Intravenous Q12H Continuous Infusions: PRN Meds:.haloperidol lactate, ondansetron, ondansetron, benzocaine, acetaminophen, prochlorperazine, prochlorperazine Labs: Recent Labs Basename 12/23/12 0545 12/22/12 1316 12/22/12 0500 WBC 6.5 10.6* 11.8* HGB 6.8* 7.3* 7.3* HCT 20.9* 21.9* 22.0* PLATELET 186 165 165 NEUTROABS 4.80 8.81* 10.05* Recent Labs Basename 12/23/12 0545 12/22/12 0500 12/21/12 1540 NA 138 138 137 K 4.2 3.8 3.5 CL 104 101 99 CO2 26 29 28 BUN 11 15 33* CREATININE 1.52* 1.53* 2.34* Recent Labs Basename 12/23/12 0545 12/22/12 0500 12/21/12 1540 12/21/12 0650 CALCIUM 7.8* 7.1* 7.9* -- MAGNESIUM 0.71 0.71 -- 0.66* PHOS 2.9 2.6 -- 4.1 Recent Labs Basename 12/23/12 0545 12/22/12 0500 12/21/12 0650 AST -- -- -- ALT -- -- -- ALKPHOS -- -- -- BILITOT -- -- -- BILIDIR -- -- -- LDH 240* 232* 237* Recent Labs Basename 12/22/12 0500 12/20/12 1355 INR 1.4* 1.4* PT 17.1* 17.1* PTT 36* 41* Other Labs: C3 Complement 12/16 - 66 (low) C4 Complement 12/16 - 4 (low) TSH 12/16 - 3.68 Free T4 -0.88 (borderline low) Microbiology: C diff 12/15 - neg Stool wbc + Stool cx OSH 12/10 - negative Shiga toxin 12/17 - pending Campylobacter antigen 12/17 - pending Stool Cx (looking for E.coli O157)- 12/16 HIV 12/16 pending - negative Blood culture 12/20 - 07/13 grew MRSA sensitive to Vancomycin Urine culture 12/20 - >100,000 Staph A Blood Culture 12/21 - pending Pertinent radiology/diagnostic studies: KUB 12/15: Mild gaseous distention of the small bowel with a few air-fluid levels. + gas within the colon. The pattern is most consistent with a partial small bowel obstruction. No evidence of free subdiaphragmatic air. MRI 12/16 Normal Bilateral DVT study 12/19: Interpretation: RIGHT: Non occlusive thrombus in one of the peroneal veins through the mid calf. No evidence of femoral to popliteal deep venous thrombosis. LEFT: Focal non occlusive thrombus in one of the posterior tibial veins in the mid calf. No evidence of femoral to popliteal deep venous thrombosis. Comparison: No previous study in our vascular lab database for comparison. Immune Studies: 12/16 C-ANCA, P-ANCA both negative 12/16 MPO Ab, 12/17 KIANA - negative, MRI Brain 12/21/12: pending Abnormal diffusion in the bilateral centrum semiovale associated with probable abnormal signal in the bilateral basal ganglia. These findings are subtle and nonspecific, but can be seen in setting of toxic metabolic processes, especially given the symmetry. The findings in the deep white matter and corpus callosum raises the possibility of acute demyelination. The findings are not characteristicof a vasculitis or cerebritis. Follow up imaging could be helpful to see how these changes evolve. Pathology: 12/17 Blood smear: Scistocytes are more than noted in the previous smear EGD 12/19 - Normal esophagus. - Gastric mucosal abnormality in the gastric body characterized by erythema/submucosal hemorrhage likely related to TTP. ASSESSMENT/PLAN: 52F w/ h/o Graves p/w acute onset abd pain, bloody diarrhea, n/v, anemia, thrombocytopenia, schistocytes, INR/PTT normal, SEN negative = clinical dx HUS- TTP. ADAMTS-13 returned normal. Stool studies negative. Received plasma x-change daily 12/14-12/20. Plts increased, LDH decreased. kidney function was getting better. However, acute desat/SIRS yesterday (low grade fever 38, tachy 110, tachpneic, 88%6LNC). CXR showed bibasilar opacities vs layering pleural effusions. No possibility of TRALI per transfusion med, as all donors were male. However, TACO (fluid-overload) likely contributing, also concern for HCAP. Started vanc and zosyn. Full infectious w/u. BCx grew staph aeurus both aerobic bottles <24hrs. ?source from PICC, plasmaphoresis line, possibly lung, possibly contaminated plasma? On 12/20 and 12/21 gibberish, +3 hyperreflexia symmetrically: Neuro involved. Likely all toxic-metabolic encephalopathy + delirium. Possible diagnosis include ?Lupus cerebritis, CONTENT MANAGER vasculitis, all d/t TTP-HUS? Delirogenic meds d/c'd. Has haldol prn. Additionally she received gallinium for MRI so dialysis was initiated on 12/21 She continues to show further improvement today - walked ot show on her own, lucid, decreasing double vision. neurologically this AM, cogent and lucid. She is Day #3 dialysis and Day #4 antibiotic therapy (12/23). We will be removing as many of her lines today as we can when she has finished Dialysis because of concern of her MRSA bacteremia. Over the last few days she has made remarkable clinical progress andtoday she is even better. We need to make sure that dialysis continues to remove fluid from her as her lung exam still shows evidence of pleural effusions. 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 Her thrombocytopenia and hemolysis (schistocytes) qualified her for treatment plasmapheresis. Additionally her DELVIS and altered mental status are part of the HUS-TTP spectrum. However, our studies to date have not revealed a definitive etiology. - PLT count increased - ADAMTS-13 normal - stool cx negative (not enough growth to test for e coli O157:H7) -Low complement level - daily plts and LDH - trend CBC, transfuse if necessary. No transfusions today # Delirium + UMN signs - Appreciate Neuro, renal, transfusion medicine involvement - concern for lupus cerebritis, vasculitis, acute disseminated encephalomyelitis, but per neuro, or2/2 TTP-HUS, but per Neuro, toxic-metabolic encephalopathy most likely - avoid delirogenic meds - haldol for delirium with agitation - Nephrology and Neuro both recommend MRI - f/u results #Staph aureus bacteremia with sepsis: on vancomycin currently (started yesterday). Will repeat blood cultures to make sure they clear. May need to pull central lines. However, needs dialysis line as below and needs PICC line for antibiotics, etc. -Redose Vancomycin because of dialysis # DELVIS - Likely 2/2 TTP-HUS plus decreased intake - Cr increased after diuresis - Received contrast with MRI (ordered as generic MRI brain) - Will start dialysis tonight for fluid overload, DELVIS, possible clinical uremia (clonus, etc), and to prevent gadolinum-induced nephrogenic systemic fibrosis - Nephrology following - she is still clinically hypervolemic - +2.4kg over admission wt - repeat bmp this afternoon - if cr worse, hold further lasix today # Melena - diffuse submucosal hemorrhage on EGD, likely 2/2 thrombocytopenia, believe it is resolving -f/u H. Pylori (ordered, but no results sent, discussed with nursing) - IV nexium bid to prevent component of ulcer, not eating -Hb is above need to transfuse not <7, and hemoocult stools today are negative. Will reassess tomorrow. # Bilateral distal calf thrombi, non-occlussive - R leg in peroneal vein and L leg posterior tibial. -Using anticoagulant therapy in the context of her HUS-TTP would put her at too high of a risk for bleeding. Holding currently. - f/u doppler this week, also will look #Hyperthyroidism/Graves -Appreciate Endocrinology input -stopping methimazole (12/16) -MPO-ANCA following for possible vasculitis - consider beta kirstie if develops tachycardia # FEN - repleting K, mag, phos prn - Regular diet, not taking much po - may need to consider tpn # Other - DVT ppx - SCDs. No thx anticoag given b/c HUS-TTP - GI: PPI IV BID CODE STATUS: Full Code JOHN KIMBALL MD, PGY-1 12/23/2012 Team A Pager #[phone] * Rebecca Kumar Anh - 12/22/2012 6:06 PM EDT Computer Instructor Encounter Note Patient Name: Anum Henriquez : [id number] MR#: [id number] Admit Date: 12/13/2012 7:56 PM Hospital Day 9 days Narrative: Visited at patient request. Computer Instructor services offered and accepted. Prayer offered and accepted. Patient was made aware of Mass times, and availability of communion from [employer] ministers. Assessment: Patient was lucid, pleasant and eager to converse. Intervention and Outcome: The encounter provided significant spiritual support. Follow-up: Will refer to Taoist chaplains and also visit Sunday. Time in Direct Care: 20 minutes Rebecca Santamarial 12/22/2012 * Ankit Ohara MD - 12/22/2012 12:56 PM EDT Staff Addendum I have seen and examined the patient and reviewed the pertinent labs and studies. I have discussed the patient with the resident. I agree with the notes and assessment per the resident note, Dr Kimball.Please see resident note for details of vitals, labs, exam, and further details. On exam, today she is the most lucid since admission. Very impressive today - pt is back to normal from a mental status standpoint. She is alert, Ox3 andasking indepth, technical questions about TTP/HUS etc! VSS; afeb Lung show dec BS 1/3 way up bilat Less trembling Brisk relfex but equal bilkat No UMN fidnigns Her labs indicate that her Hgb is stable and her plates continue to rise (165K) As noted in my note from yesterday, dialysis was started emergently last nite to remove gadolinium. THere is no further melena, but her Hgb shows a slow downward trend, w/o further evidence of hemolysis At this point, unifying diagnosis uncertain, but likely HUS. Plasma exchange last done 2 d ago and she continues to improve from a clinical and lab standpoint. Recent BC from 2 d ago show staph aureus bacteremia. Her urine also showed s aureus.She is currently Day of zosyn/vanco. She reamins afeb since starting rx. Repeat BC from yesterday have not been eval to determine if lines need to be pulled Today's plans will include Diaylsis again (Day 2 of 3) Hold on plasma exchange I apprecaite Neuro/Nephrology and Blood Bank assistance - we met with Nephrology today Monitor for any evidence of ongoing melena Repeat MRI shows changes that are new - c/w possible metabolic encephalopathy (I reviewed findings with Dr Mo of radiology) Continue current antimicrobial regimen : uring also showed S aureus SHe needs diuesis - given pulm exam and pitting edema. Dialysis was planning to remove 1L but she will need additional diuersis based on her lung exam, pitting edema Re-dose vanco after dialysis I met with the pt, her daughter and today to review all in detail. TIme: 50 mins with the majority spent in coordination of care K Alannah PANTOJA Staff * Brian Velazco MD - 12/22/2012 9:06 AM EDT [facility] INPATIENT FOLLOW UP PATIENT: Anum Henriquez : 1960 ROOM: [address] [place] [address] ID: 52 y.o. 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 Subjective: Seen during HD today, tolerating treatment well Mental status improved today, feeling better MEDS: ??? potassium chloride 20 mEq Oral BID ??? potassium chloride 20 mEq Intravenous Q2H ??? magnesium oxide 400 mg Oral BID ??? furosemide 40 mg Intravenous Once ??? Vancomycin Level - MAR Order Reminder NOT APPLICABLE Once ??? alteplase 2 mg INTRA-CATHETER Once in dialysis ??? alteplase 0.1-2 mL INTRA-CATHETER Once in dialysis ??? vancomycin 1.25 g Intravenous Once ??? Vancomycin Level - MAR Order Reminder NOT APPLICABLE Once ??? esomeprazole 40 mg Intravenous BID ??? piperacillin-tazobactam 3.375 g Intravenous Q8H ??? DISCONTD: vancomycin 1 g Intravenous Q24H ??? folic acid 1 mg Oral Daily ??? chlorhexidine 15 mL Oral BID ??? sodium chloride 0.9 % 5 mL Intravenous Q12H EXAM: Last value Range last 24 hrs Temperature Temp: 36.9 ??C (98.4 ??F) Temp: [36.8 ??C (98.2 ??F)-37.5 ??C (99.5 ??F)] Heart Rate Heart Rate: 91 Heart Rate: [81-105] Blood Pressure BP: 114/62 mmHg BP: (103-130)/(56-87) Respiratory Rate Resp: 20 Resp: [18-20] SpO2 SpO2: 96 % SpO2: [93 %-98 %] Art BP BP (Arterial Line): -- Wt Readings from Last 3 Encounters: 12/21/12 75.751 kg (167 lb) 12/21/12 75.751 kg (167 lb) Intake/Output Summary (Last 24 hours) at 12/22/12 0906 Last data filed at 12/22/12 0500 Gross per 24 hour Intake 1348 ml Output 1551 ml Net -203 ml Gen: Alert and awake, oriented x 3 Neck: R IJ HD line, mild tenderness in R chest and arm Lungs: CTA b/l no rales Heart: S1/S2 normal, no murmurs, rubs, gallop Abd: +BS, no distended Extrem: edema + in dependent areas LABS: Lab Results Component Value Date WBC 11.8* 12/22/2012 RBC 2.45* 12/22/2012 HGB 7.3* 12/22/2012 HCT 22.0* 12/22/2012 MCV 89.8 12/22/2012 MCH 29.8 12/22/2012 MCHC 33.2 12/22/2012 PLATELET 165 12/22/2012 RDWCV 14.7* 12/22/2012 Lab Results Component Value Date Sodium 138 12/22/2012 Potassium 3.8 12/22/2012 Chloride 101 12/22/2012 CO2 29 12/22/2012 BUN 15 12/22/2012 Creatinine 1.53* 12/22/2012 Glucose Lvl 96 12/22/2012 Lab Results Component Value Date CALCIUM 7.1* 12/22/2012 Lab Results Component Value Date PHOS 2.6 12/22/2012 CXR 12/20 Impression Increase in bilateral pulmonary opacities, however unable to determine if effusions increased in size due to differences in study. Lateral film recommended if there is clinical concern. IMPRESSION/ RECOMMENDATIONS: 52 yo female admitted with history of bloody diarrhea and findings of microangiopathic hemolytic anemia/thrombocytopenia and non oliguric acute kidney injury likely from HUS. Started on plasma exchange daily until 12/20. (received 7 treatment total). LDH trending down and HGB/PLT improving. [id number] normal and infectious work-up is negative so far. Episode of AMS yesterday and Neurology consulted. MRI did show some changes consistent with toxic metabolic encephalopathy. Patient started on HD yesterday because of gadolinium exposure and today mental status is improved, which may point towards uremia as etiology? HD today with 1 L UF target given significant edema. Blood Cxs growing MRSA, she is on vancomycin that should be re-dose today after HD. Plan to continue HD tomorrow (3 days in arow) and then stop and monitor kidney function Recs: - HD today, 3 hour run, 300 cc/hr BFR, 700 cc/hr dialysate - Access: R IJ HD line - Plan x treatment tomorrow - May remove HD line tomorrow after HD treatment in the setting of bacteremia - Please dose Vancomycin post HD 500 mg IV x 1 - Check vancomycin level tomorrow before HD - Avoid nephrotoxins - Renal dose meds Seen and discussed with Dr. Mora Crum. Salvador Renner MD Nephrology Fellow Pager# [phone] Renal Staff: This patient is seen and examined on HD with Dr. Renner and I agree with his note and make the following additional comments: dramatic improvement in mental status and resolution of myoclonus and asterixis today. Feels puffy and bit sob so we are removing one liter with hd. Blood cxs from 12-21 not read yet (MRSA from 12-20). PICC mildly tender. RIJ site is c/d/i. Anemia significant but platelets now normal range. Patient confirms h/o acute frankly bloodly diarrhea followed rapidly (or simultaneously with) by the HUS/TTP syndrome. No acquaintances ill and no travel or unusual foods or dining experiences. No contamination with recent heavy rains. However, she does garden and eats fresh vegetables and berries and this is a potential source. Please check complement levels again to see if they are recovering? Next HD tomorrow. If blood cxs remain +, will need to remove lines but it would be advantageous if we could complete her first 3 treatments with her current line. Vanc should be supplem ented 500mg post hd and then a level checked tomorrow. Discussed with heme service and neurology service. * John Kimball - 12/22/2012 7:49 AM EDT Inpatient Hematology/Oncology/SCT Progress Note Patient info: Name: Anum Henriquez LOS: Hospital Day 9 days ID: Anum Henriquez is a 52 y.o. 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 Received plasma exchange x7 days, last day 12/20. Hospital Problem List: Patient Active Problem List Diagnoses Code ??? Hemorrhagic colitis 558.9 ??? Thrombocytopenia 287.5 ??? Hyperthyroidism 242.90 ??? 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 - Nursing reports no melanous stools (12/22) - less delirious, decreased UMN sx this afternoon. Vitals: Last value Range last 24 hrs Temperature Temp: 36.5 ??C (97.7 ??F) Temp: [36.5 ??C (97.7 ??F)-37.4 ??C (99.3 ??F)] Heart Rate Heart Rate: 77 Heart Rate: [75-105] Blood Pressure BP: 124/86 mmHg BP: (103-131)/(56-90) Respiratory Rate Resp: 20 Resp: [18-20] SpO2 SpO2: 97 % SpO2: [92 %-98 %] Intake/Output Summary (Last 24 hours) at 12/22/12 1217 Last data filed at 12/22/12 0500 Gross per 24 hour Intake 1348 ml Output 1151 ml Net 197 ml Patient Vitals for the past 168 hrs: Weight 12/21/12 1704 75.751 kg (167 lb) 12/21/12 0325 76 kg (167 lb 8.8 oz) 12/20/12 0500 76.2 kg (167 lb 15.9 oz) 12/19/12 0645 76.1 kg (167 lb 12.3 oz) 12/17/12 0719 76.5 kg (168 lb 10.4 oz) 12/16/12 0610 77.8 kg (171 lb 8.3 oz) Admit wt:73.60 kg Change: -0.2kg/24 hrs; +2.4kg/admit Physical Exam: GEN: Thin but WDWN woman lying in bed, NAD, grossly delirious, mumbling rapidly, shaking, mycoclonic jerks every few seconds. anxious-appearing. HEENT: PERRLA, EOMI, anicteric, exopthalmos, MMM, OP clear RESP: Decreased BS blbs, tubular breath sounds LLB, similar to yesterday, no crackles or rhonchi orwheeze CVS: RRR, S1, S2; no murmurs, rubs, gallops Abd: Soft, NTND, +BS. No rebound or guarding. No masses or HSM appreciated. EXT: 1+ pitting edema lower legs bl, less tense than yesterday. Skin: no lesions Neuro: Oriented to person, thinks she is at [facility], thinks month is November, oriented to year and president, off on day of week by 1 day. woodworking shop hand intact. EOMI but disconjugate gaze when looking forward, with L eye deviating medially. Double vision. No meningismus. Unable to cooperate in strength and sensation exam. Trembling diffusely, more exaggerated versus yesterday. Worsened dysmetria with [id number]. Myoclonic jerks, clonus bl ankles, hyperrflexia diffusely. Antimicrobials: Vancomycin 1g q24 (12/20-) Day#3 Zosyn 3.375 q8 (12/20-) Medications: Scheduled Meds: ??? vancomycin 500 mg Intravenous Once ??? potassium chloride 20 mEq Oral BID ??? potassium chloride 20 mEq Intravenous Q2H ??? magnesium oxide 400 mg Oral BID ??? Vancomycin Level - MAR Order Reminder NOT APPLICABLE Once ??? alteplase 2 mg INTRA-CATHETER Once in dialysis ??? alteplase 0.1-2 mL INTRA-CATHETER Once in dialysis ??? vancomycin 1.25 g Intravenous Once ??? Vancomycin Level - MAR Order Reminder NOT APPLICABLE Once ??? esomeprazole 40 mg Intravenous BID ??? piperacillin-tazobactam 3.375 g Intravenous Q8H ??? DISCONTD: vancomycin 1 g Intravenous Q24H ??? folic acid 1 mg Oral Daily ??? chlorhexidine 15 mL Oral BID ??? sodium chloride 0.9 % 5 mL Intravenous Q12H Continuous Infusions: PRN Meds:.haloperidol lactate, gadopentetate dimeglumine, DISCONTD: heparin (porcine), ondansetron,ondansetron, benzocaine, acetaminophen, prochlorperazine, prochlorperazine Labs: Recent Labs Basename 12/22/12 0500 12/21/12 0650 12/20/12 1355 12/20/12 0450 WBC 11.8* 17.8* 12.4* -- HGB 7.3* 7.7* 7.1* -- HCT 22.0* 22.4* 21.4* -- PLATELET 165 158 138* -- NEUTROABS 10.05* -- 10.97* 8.24* Recent Labs Basename 12/22/12 0500 12/21/12 1540 12/21/12 0650 NA 138 137 137 K 3.8 3.5 3.1* CL 101 99 97* CO2 29 28 27 BUN 15 33* 33* CREATININE 1.53* 2.34* 2.29* Recent Labs Basename 12/22/12 0500 12/21/12 1540 12/21/12 0650 12/20/12 1355 12/20/12 0450 CALCIUM 7.1* 7.9* 7.9* -- -- MAGNESIUM 0.71 -- 0.66* 0.66* -- PHOS 2.6 -- 4.1 -- 4.9* Recent Labs Basename 12/22/12 0500 12/21/12 0650 12/20/12 0450 12/16/12 0440 AST -- -- -- 49* ALT -- -- -- 21 ALKPHOS -- -- -- 32* BILITOT -- -- -- 0.8 BILIDIR -- -- -- 0.2 LDH 232* 237* 220 -- Recent Labs Basename 12/22/12 0500 12/20/12 1355 INR 1.4* 1.4* PT 17.1* 17.1* PTT 36* 41* Other Labs: C3 Complement 12/16 - 66 (low) C4 Complement 12/16 - 4 (low) TSH 12/16 - 3.68 Free T4 -0.88 (borderline low) Microbiology: C diff 12/15 - neg Stool wbc + Stool cx OSH 12/10 - negative Shiga toxin 12/17 - pending Campylobacter antigen 12/17 - pending Stool Cx (looking for E.coli O157)- 12/16 HIV 12/16 pending - negative Blood culture 12/20 - 07/13 grew gram + cocci in clusters, 1 isolated Staph A Urine culture 12/20 - >100,000 Staph A Blood Culture 12/21 - pending Pertinent radiology/diagnostic studies: KUB 12/15: Mild gaseous distention of the small bowel with a few air-fluid levels. + gas within the colon. The pattern is most consistent with a partial small bowel obstruction. No evidence of free subdiaphragmatic air. MRI 12/16 Normal Bilateral DVT study 12/19: Interpretation: RIGHT: Non occlusive thrombus in one of the peroneal veins through the mid calf. No evidence of femoral to popliteal deep venous thrombosis. LEFT: Focal non occlusive thrombus in one of the posterior tibial veins in the mid calf. No evidence of femoral to popliteal deep venous thrombosis. Comparison: No previous study in our vascular lab database for comparison. Immune Studies: 12/16 C-ANCA, P-ANCA both negative 12/16 MPO Ab, 12/17 KIANA - negative, MRI Brain 12/21/12: pending Abnormal diffusion in the bilateral centrum semiovale associated with probable abnormal signal in the bilateral basal ganglia. These findings are subtle and nonspecific, but can be seen in setting of toxic metabolic processes, especially given the symmetry. The findings in the deep white matter and corpus callosum raises the possibility of acute demyelination. The findings are not characteristicof a vasculitis or cerebritis. Follow up imaging could be helpful to see how these changes evolve. Pathology: 12/17 Blood smear: Scistocytes are more than noted in the previous smear EGD 12/19 - Normal esophagus. - Gastric mucosal abnormality in the gastric body characterized by erythema/submucosal hemorrhage likely related to TTP. ASSESSMENT/PLAN: 52F w/ h/o Graves p/w acute onset abd pain, bloody diarrhea, n/v, anemia, thrombocytopenia, schistocytes, INR/PTT normal, SEN negative = clinical dx HUS- TTP. ADAMTS-13 returned normal. Stool studies negative. Received plasma x-change daily 12/14-12/20. Plts increased, LDH decreased. kidney function was getting better. However, acute desat/SIRS yesterday (low grade fever 38, tachy 110, tachpneic, 88%6LNC). CXR showed bibasilar opacities vs layering pleural effusions. No possibility of TRALI per transfusion med, as all donors were male. However, TACO (fluid-overload) likely contributing, also concern for HCAP. Started vanc and zosyn. Full infectious w/u. BCx grew staph aeurus both aerobic bottles <24hrs. ?source from PICC, plasmaphoresis line, possibly lung, possibly contaminated plasma? On 12/20 and 12/21 gibberish, +3 hyperreflexia symmetrically: Neuro involved. Likely all toxic-metabolic encephalopathy + delirium. Possible diagnosis include ?Lupus cerebritis, CONTENT MANAGER vasculitis, all d/t TTP-HUS? Delirogenic meds d/c'd. Has haldol prn. Additionally she received gallinium for MRI so dialysis was initiated on 12/21 She was much improved neurologically this AM, cogent and lucid. She is Day #2 dialysis and Day #3 antibiotic therapy (12/22). 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 Her thrombocytopenia and hemolysis (schistocytes) qualified her for treatment plasmapheresis. Additionally her DELVIS and altered mental status are part of the HUS-TTP spectrum. However, our studies to date have not revealed a definitive etiology. - PLT count increased - ADAMTS-13 normal - stool cx negative (not enough growth to test for e coli O157:H7) -Low complement level - daily plts and LDH - trend CBC, transfuse if necessary. No transfusions today # Delirium + UMN signs - Appreciate Neuro, renal, transfusion medicine involvement - concern for lupus cerebritis, vasculitis, acute disseminated encephalomyelitis, but per neuro, or2/2 TTP-HUS, but per Neuro, toxic-metabolic encephalopathy most likely - avoid delirogenic meds - haldol for delirium with agitation - Nephrology and Neuro both recommend MRI - f/u results #Staph aureus bacteremia with sepsis: on vancomycin currently (started yesterday). Will repeat blood cultures to make sure they clear. May need to pull central lines. However, needs dialysis line as below and needs PICC line for antibiotics, etc. -Redose Vancomycin because of dialysis # DELVIS - Likely 2/2 TTP-HUS plus decreased intake - Cr increased after diuresis - Received contrast with MRI (ordered as generic MRI brain) - Will start dialysis tonight for fluid overload, DELVIS, possible clinical uremia (clonus, etc), and to prevent gadolinum-induced nephrogenic systemic fibrosis - Nephrology following - she is still clinically hypervolemic - +2.4kg over admission wt - repeat bmp this afternoon - if cr worse, hold further lasix today # Melena - diffuse submucosal hemorrhage on EGD, likely 2/2 thrombocytopenia -f/u H. Pylori (ordered, but no results sent, discussed with nursing) - IV nexium bid to prevent component of ulcer, not eating -Hb is above need to transfuse not <7, and hemoocult stools today are negative. Will reassess tomorrow. # Bilateral distal calf thrombi, non-occlussive - R leg in peroneal vein and L leg posterior tibial. -Using anticoagulant therapy in the context of her HUS-TTP would put her at too high of a risk for bleeding. Holding currently. - f/u doppler next week #Hyperthyroidism/Graves -Appreciate Endocrinology input -stopping methimazole (7/8) -MPO-ANCA following for possible vasculitis - consider beta kirstie if develops tachycardia # FEN - repleting K, mag, phos prn - Regular diet, not taking much po - may need to consider tpn # Other - DVT ppx - SCDs. No thx anticoag given b/c HUS-TTP - GI: PPI IV BID CODE STATUS: Full Code JOHN KIMBALL MD, PGY-1 12/22/2012 Team A Pager #[phone] * Arturo Moreno MD - 12/22/2012 1:22 AM EDT Neurology Progress Note Patient Name: Anum Henriquez Admit Date: 12/13/2012 Attending: Patient ID: Anum Henriquez is a 52 y.o. female with PMH of Graves disease initially admitted in transfer from [facility] with hemorrhagic colitis and thrombocytopenia on 12/13/2012. She has been treated for TTP-HUS given presence of schistocytes, renal insufficiency and confusion. She had been receiving daily plasma exchange since admission and developed an acute change in mental status. Active Issues: TTP-HUS DELVIS Secondary Problems: Hyperthyroidism Interval History: Patient has improved with decrease in visual hallucinations, decrease in tremors and myoclonic movements. She states she feels much clearer and has no complaints over the evening. Started on dialysis today due to contrast load during MRI. Medications: No current facility-administered medications on file prior to encounter. Current Outpatient Prescriptions on File Prior to Encounter Medication Sig Dispense Refill ??? methimazole (TAPAZOLE) 10 mg tablet take 1/2 tablet by mouth once daily 45 tablet 3 ??? aspirin 81 mg EC tablet ??? Gqpihtgxzcx-Mwxgjzduh-Iua C-Mn 500-400 mg Cap ??? Galena-3 Fatty Acids-Vitamin E (OMEGA-3 FISH OIL) 1,000-5 mg-unit Cap ??? CALCIUM ORAL Physical Exam: Vitals: Temp: [36.7 ??C (98.1 ??F)-37.7 ??C (99.9 ??F)] Heart Rate: [81-105] Resp: [18-20] BP: (102-135)/(56-87) SpO2: [93 %-98 %] Constitutional: Patient of apparent stated age, well nourished, well developed, no acute distress Neck: Supple, no meningismus, no carotid bruit CV: RRR, S1, S2, no murmur Resp: CTAB Abd: Soft, mild epigastric tenderness, nondistended Ext: Trace bilateral LE edema. No bony deformity Neuro: MS: Alert, oriented, clear language, no dysarthria CN: PERRL, EOMI, visual becker full, trigeminal sensation intact, no facial asymmetry, hearing intact to whisper, palate elevates symmetrically, tongue protrudes midline, SCM and trap strength intact Motor: Normal bulk and tone. 5/5 strength in bilateral upper and lower extremities Sensation: Intact to light touch, pain, temperature, and vibration throughout Reflexes: 2+ DTRs, downgoing toes Coordination: resting tremor worsened on intention, rapid alternating movements intact and symmetric Gait: Stable, steady Labs: Recent Results (from the past 24 hour(s)) CBC (WITH DIFF) Component Value Range WBC 17.8 (*) 4.0 - 10.0 x10(3)/mcL RBC 2.49 (*) 3.93 - 5.22 x10(6)/mcL Hemoglobin 7.7 (*) 11.2 - 15.7 gm/dL Hematocrit 22.4 (*) 34.0 - 45.0 % MCV 90.0 79.0 - 94.0 fL MCH 30.9 26.6 - 32.2 pg MCHC 34.4 32.0 - 36.5 gm/dL Platelets 158 145 - 370 x10(3)/mcL RDWSD 46.5 (*) 35.0 - 46.0 fL RDWCV 14.7 (*) 10.9 - 14.4 % MPV 10.8 9.0 - 12.0 fL BASIC METABOLIC PANEL (NON-FASTING) Component Value Range Glucose Lvl 102 60 - 199 mg/dL BUN 33 (*) 8 - 18 mg/dL Creatinine 2.29 (*) 0.70 - 1.20 mg/dL Sodium 137 135 - 145 mmol/L Potassium 3.1 (*) 3.5 - 5.0 mmol/L Chloride 97 (*) 98 - 107 mmol/L CO2 27 22 - 31 mmol/L Anion Gap 13 5 - 15 mmol/L Calcium 7.9 (*) 8.5 - 10.5 mg/dL Estimated GFR 22 (*) >=60 LACTATE DEHYDROGENASE Component Value Range LDH 237 (*) 110 - 220 unit/L MAGNESIUM Component Value Range Magnesium 0.66 (*) 0.69 - 1.07 mmol/L PHOSPHORUS Component Value Range Phosphorus 4.1 2.5 - 4.5 mg/dL DIFFERENTIAL, MANUAL Component Value Range Neutrophil % 91 (*) 34 - 71 % Band % 5 0 - 12 % Lymphocyte % 4 (*) 19 - 53 % Neutrophil Abs 16.2 (*) 1.5 - 6.3 x10(3)/mcL Band Abs 0.9 (*) 0.2 - 0.6 x10(3)/mcL Neutr Abs (ANC) 17.07 (*) 1.50 - 6.30 x10(3)/mcL Lymphocyte Abs 0.7 (*) 1.0 - 3.6 x10(3)/mcL Tot Diff Cell Ct 100 Plat Estimate Normal RBC Morphology Abnormal Schistocytes 1-5 AMMONIA Component Value Range Ammonia <10 (*) 11 - 51 mcmol/L VITAMIN B12 Component Value Range Vitamin B-12 498 207 - 974 pg/mL GREEN TUBE HOLD Component Value Range Green Hold Sample in lab. BLOOD GAS ARTERIAL Component Value Range pH Art 7.52 (*) 7.35 - 7.45 pCO2 Art 36 35 - 45 mmHg pO2 Art 94 85 - 104 mmHg HCO3 Art 29.0 (*) 20.0 - 26.0 mmol/L BE Art 6.2 (*) -3.0 - 3.0 mmol/L Hgb Blood Gas 8.5 (*) 11.2 - 15.7 gm/dL O2HB Art 96.4 94.0 - 97.0 % COHB Art 1.3 METHB Art 0.2 <=1.5 % Na Whole Blood 134 (*) 135 - 145 mmol/L K Whole Blood 3.4 (*) 3.5 - 5.0 mmol/L ICa Whole Blood 1.02 (*) 1.15 - 1.33 mmol/L CL Whole Blood 98 98 - 107 mmol/L Gluc Whole Bld 113 60 - 199 mg/dL Lactate WB 0.8 0.5 - 2.2 mmol/L BASIC METABOLIC PANEL (NON-FASTING) Component Value Range Glucose Lvl 110 60 - 199 mg/dL BUN 33 (*) 8 - 18 mg/dL Creatinine 2.34 (*) 0.70 - 1.20 mg/dL Sodium 137 135 - 145 mmol/L Potassium 3.5 3.5 - 5.0 mmol/L Chloride 99 98 - 107 mmol/L CO2 28 22 - 31 mmol/L Anion Gap 10 5 - 15 mmol/L Anion Gap 10 5 - 15 mmol/L Calcium 7.9 (*) 8.5 - 10.5 mg/dL Estimated GFR 22 (*) >=60 VANCOMYCIN, TROUGH Component Value Range Vanc Trough 7.0 Diagnostic Tests and Imaging: MRI brain w/ contrast: Abnormal diffusion in the bilateral centrum semiovale associated with probable abnormal signal in the bilateral basal ganglia. These findings are subtle and nonspecific, but can be seen in setting of toxic metabolic processes, especially given the symmetry. The findings in the deep white matter and corpus callosum raises the possibility of acute demyelination. The findings are not characteristic of a vasculitis or cerebritis. Follow up imaging could be helpful to see how these changes evolve. Assessment: Anum Henriquez is a 52 y.o. 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 Given the clinical picture, background of metabolic abnormalities, renal insufficiency and infection, the patient is likely suffering from toxic metabolic encephalopathy. She is improving on antibiotics. LP not indicated at this time due to improvement in clinicalstatus and no signs and symptoms concerning for meningitis/encephalitis. Plan: Multifactorial Toxic metabolic encephalopathy - Monitor electrolytes closely and replete PRN - Monitor temperature, vitals - Continue antibiotics to treat apparent infection - Avoid benzodiazepines/deliritous medications - Please contact with any further questions Raad Aleman, PGY-2 Neurology Personal Pager [phone] Addendum:I saw and evaluated the patient with Dr. Aleman. I have reviewed the medical records and history during the evaluation and agree with the details as written. The assessment and plan were formulated in discussion with me at the time of the visit and I agree with them as documented. Clearly improved today. * Ankit Ohraa MD - 12/21/2012 7:51 PM EDT Inpatient Hematology/Oncology/SCT Progress Note Patient info: Name: Anum Henriquez LOS: Hospital Day 8 days ID: Anum Henriquez is a 52 y.o. 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 Received plasma exchange x7 days, last day 12/20. Hospital Problem List: Patient Active Problem List Diagnoses Code ??? Hemorrhagic colitis 558.9 ??? Thrombocytopenia 287.5 ??? Hyperthyroidism 242.90 ??? 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 Then developed SIRS picture (low grade fever 38, tachy 110, tachpneic, 88% 6LNC) - CXR - bibasilar opacities vs layering effusions. ?TACO vs PNA - started on vanc and zosyn for HCAP, diuresed - Cr worse today after 80 iv lasix yesterday, good UOP response, sats better - infectious w/u revealed staph aureus, both aerobic bottles in <24hrs, S&S pending - Neuro consult - mental status changes most likely toxic metabolic encephalopathy - Concern for vasculitis/lupus cerebritis given diplopia, myoclonic jerks, clonus, hyperreflexia, Per Renal. MRI obtained to assess for per renal and neuro recs - contrast administered for MRI - given pt's low cr clearance, decision was made to start dialysis for plan x3 days. - 1 small non-melenic stool today - less delirious, decreased UMN sx this afternoon. Vitals: Last value Range last 24 hrs Temperature Temp: (pt off the floor) Temp: [36.7 ??C (98.1 ??F)-37.9 ??C (100.2 ??F)] Heart Rate Heart Rate: 86 Heart Rate: [81-97] Blood Pressure BP: 121/70 mmHg BP: (102-135)/(51-78) Respiratory Rate Resp: 20 Resp: [20-25] SpO2 SpO2: 95 % SpO2: [90 %-96 %] Intake/Output Summary (Last 24 hours) at 12/21/12 1812 Last data filed at 12/21/12 1749 Gross per 24 hour Intake 1422 ml Output 2801 ml Net -1379 ml Patient Vitals for the past 168 hrs: Weight 12/21/12 1704 75.751 kg (167 lb) 12/21/12 0325 76 kg (167 lb 8.8 oz) 12/20/12 0500 76.2 kg (167 lb 15.9 oz) 12/19/12 0645 76.1 kg (167 lb 12.3 oz) 12/17/12 0719 76.5 kg (168 lb 10.4 oz) 12/16/12 0610 77.8 kg (171 lb 8.3 oz) Admit wt:73.60 kg Change: -0.2kg/24 hrs; +2.4kg/admit Physical Exam: GEN: Thin but WDWN woman lying in bed, NAD, grossly delirious, mumbling rapidly, shaking, mycoclonic jerks every few seconds. anxious-appearing. HEENT: PERRLA, EOMI, anicteric, exopthalmos, MMM, OP clear RESP: Decreased BS blbs, tubular breath sounds LLB, similar to yesterday, no crackles or rhonchi orwheeze CVS: mildly tachy, regular, S1, S2; no murmurs, rubs, gallops Abd: Soft, NTND, +BS. No rebound or guarding. No masses or HSM appreciated. EXT: 1+ pitting edema lower legs bl, less tense than yesterday. Skin: no lesions Neuro: Oriented to person, thinks she is at [facility], thinks month is November, oriented to year and president, off on day of week by 1 day. woodworking shop hand intact. EOMI but disconjugate gaze when looking forward, with L eye deviating medially. Double vision. No meningismus. Unable to cooperate in strength and sensation exam. Trembling diffusely, more exaggerated versus yesterday. Worsened dysmetria with [id number]. Myoclonic jerks, clonus bl ankles, hyperrflexia diffusely. Antimicrobials: Vancomycin 1g q24 (12/20-) Zosyn 3.375 q8 (12/20-) Medications: Scheduled Meds: ??? potassium chloride 20 mEq Oral BID ??? potassium chloride 20 mEq Intravenous Q2H ??? magnesium oxide 400 mg Oral BID ??? furosemide 40 mg Intravenous Once ??? Vancomycin Level - MAR Order Reminder NOT APPLICABLE Once ??? esomeprazole 40 mg Intravenous BID ??? piperacillin-tazobactam 3.375 g Intravenous Q8H ??? vancomycin 1 g Intravenous Q24H ??? furosemide 40 mg Intravenous Once ??? folic acid 1 mg Oral Daily ??? chlorhexidine 15 mL Oral BID ??? sodium chloride 0.9 % 5 mL Intravenous Q12H Continuous Infusions: PRN Meds:.haloperidol lactate, gadopentetate dimeglumine, DISCONTD: Vancomycin Level - MAR Order Reminder, DISCONTD: LORazepam, ondansetron, ondansetron, DISCONTD: diphenhydrAMINE, benzocaine, DISCONTD: HYDROmorphone, acetaminophen, prochlorperazine, prochlorperazine, DISCONTD: zolpidem Labs: Recent Labs Basename 12/21/12 0650 12/20/12 1355 12/20/12 0450 12/19/12 0320 WBC 17.8* 12.4* 10.0 -- HGB 7.7* 7.1* 7.1* -- HCT 22.4* 21.4* 21.4* -- PLATELET 158 138* 139* -- NEUTROABS -- 10.97* 8.24* 7.21* Recent Labs Basename 12/21/12 1540 12/21/12 0650 12/20/12 1355 NA 137 137 139 K 3.5 3.1* 3.9 CL 99 97* 100 CO2 28 27 27 BUN 33* 33* 34* CREATININE 2.34* 2.29* 1.86* Recent Labs Basename 12/21/12 1540 12/21/12 0650 12/20/12 1355 12/20/12 0450 12/19/12 0320 CALCIUM 7.9* 7.9* 8.2* -- -- MAGNESIUM -- 0.66* 0.66* 0.71 -- PHOS -- 4.1 -- 4.9* 4.8* Recent Labs Basename 12/21/12 0650 12/20/12 0450 12/19/12 0320 12/16/12 0440 AST -- -- -- 49* ALT -- -- -- 21 ALKPHOS -- -- -- 32* BILITOT -- -- -- 0.8 BILIDIR -- -- -- 0.2 LDH 237* 220 270* -- Recent Labs Basename 12/20/12 1355 INR 1.4* PT 17.1* PTT 41* Other Labs: C3 Complement 12/16 - 66 (low) C4 Complement 12/16 - 4 (low) TSH 12/16 - 3.68 Free T4 -0.88 (borderline low) Microbiology: C diff 12/15 - neg Stool wbc + Stool cx OSH 12/10 - negative Shiga toxin 12/17 - pending Campylobacter antigen 12/17 - pending Stool Cx (looking for E.coli O157)- 12/16 HIV 12/16 pending - negative Pertinent radiology/diagnostic studies: KUB 12/15: Mild gaseous distention of the small bowel with a few air-fluid levels. + gas within the colon. The pattern is most consistent with a partial small bowel obstruction. No evidence of free subdiaphragmatic air. MRI 12/16 Normal Bilateral DVT study 12/19: Interpretation: RIGHT: Non occlusive thrombus in one of the peroneal veins through the mid calf. No evidence of femoral to popliteal deep venous thrombosis. LEFT: Focal non occlusive thrombus in one of the posterior tibial veins in the mid calf. No evidence of femoral to popliteal deep venous thrombosis. Comparison: No previous study in our vascular lab database for comparison. Immune Studies: 12/16 C-ANCA, P-ANCA both negative 12/16 MPO Ab, 12/17 KIANA - negative, MRI Brain 12/21/12: pending Pathology: 12/17 Blood smear: Scistocytes are more than noted in the previous smear EGD 12/19 - Normal esophagus. - Gastric mucosal abnormality in the gastric body characterized by erythema/submucosal hemorrhage likely related to TTP. ASSESSMENT/PLAN: 52F w/ h/o Graves p/w acute onset abd pain, bloody diarrhea, n/v, anemia, thrombocytopenia, schistocytes, INR/PTT normal, SEN negative = clinical dx HUS- TTP. ADAMTS-13 returned normal. Stool studies negative. Received plasma x-change daily 12/14-12/20. Plts increased, LDH decreased. kidney function was getting better. However, acute desat/SIRS yesterday (low grade fever 38, tachy 110, tachpneic, 88%6LNC). CXR showed bibasilar opacities vs layering pleural effusions. No possibility of TRALI per transfusion med, as all donors were male. However, TACO (fluid-overload) likely contributing, also concern for HCAP. Started vanc and zosyn. Full infectious w/u. BCx grew staph aeurus both aerobic bottles <24hrs. ?source from PICC, plasmaphoresis line, possibly lung, possibly contaminated plasma? Yesterday's event also associated with acute worsening of mental status, with gibberish, hyperreflexia, clonus. Neuro involved today. Likely all toxic-metabolic encephalopathy + delirium. ?Lupus cerebritis, CONTENT MANAGER vasculitis, all d/t TTP-HUS? Delirogenic meds d/c'd. Has haldol prn. Got contrast today during MRI. Given borderline creatinine clearance, decision was made to start dialysis, with plan for 3 days of dialysis. Mental status somewhat better this afternoon. 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 Her thrombocytopenia and hemolysis (schistocytes) qualify her for treatment plasmapheresis. Additionally her DELVIS and altered mental status are part of the HUS-TTP spectrum. However, our studies to date have not revealed a definitive etiology. - PLT count increased - ADAMTS-13 normal - stool cx negative (not enough growth to test for e coli O157:H7) -Low complement level - daily plts and LDH - trend CBC, transfuse if necessary. No transfusions today # Delirium + UMN signs - Appreciate Neuro, renal, transfusion medicine involvement - concern for lupus cerebritis, vasculitis, acute disseminated encephalomyelitis, but per neuro, or2/2 TTP-HUS, but per Neuro, toxic-metabolic encephalopathy most likely - avoid delirogenic meds - haldol for delirium with agitation - Nephrology and Neuro both recommend MRI - f/u results #Staph aureus bacteremia with sepsis: on vancomycin currently (started yesterday). Will repeat blood cultures to make sure they clear. May need to pull central lines. However, needs dialysis line as below and needs PICC line for antibiotics, etc. # DELVIS - Likely 2/2 TTP-HUS plus decreased intake - Cr increased after diuresis - Received contrast with MRI (ordered as generic MRI brain) - Will start dialysis tonight for fluid overload, DELVIS, possible clinical uremia (clonus, etc), and to prevent gadolinum-induced nephrogenic systemic fibrosis - Nephrology following - she is still clinically hypervolemic - +2.4kg over admission wt - repeat bmp this afternoon - if cr worse, hold further lasix today # Melena - diffuse submucosal hemorrhage on EGD, likely 2/2 thrombocytopenia -f/u H. Pylori - IV nexium bid to prevent component of ulcer, not eating # Bilateral distal calf thrombi, non-occlussive - R leg in peroneal vein and L leg posterior tibial. -Using anticoagulant therapy in the context of her HUS-TTP would put her at too high of a risk for bleeding. Holding currently. - f/u doppler next week #Hyperthyroidism/Graves -Appreciate Endocrinology input -stopping methimazole (12/16) -MPO-ANCA following for possible vasculitis - consider beta kirstie if develops tachycardia # FEN - repleting K, mag, phos prn - Regular diet, not taking much po - may need to consider tpn # Other - DVT ppx - SCDs. No thx anticoag given b/c HUS-TTP - GI: PPI IV BID CODE STATUS: Full Code LEI ALEMAN MD, PGY-1 12/21/2012 Team A Pager #[phone] Fellow Addendum I have seen and examined the patient and reviewed the pertinent labs and studies. I have discussed the patient with the resident. I agree with the notes and assessment per the resident note. Please see resident note for details of vitals, labs, exam, and further details. I have also staffed the patient with Dr. Ohara, the attending. 1. Staph aureus bacteremia: on vancomycin. May need to pull out central lines. However, need dialysis/pheresis line to run dialysis for next 3 days, then will pull. 2. Delirium/toxic encephalopathy: from TTP or sepsis and/or medications (benadryl, ativan, dilaudid). So we discontinued problematic medications. Will give haldol as needed. Consulted neurology as below. 3. Myoclonic jerks, clonus, hyperreflexia: noted on exam today and also had last night. Persistent and new. Not sure if from toxic encephalopathy or other process. We consulted neurology who thought that it could be 2/2 the encephalopathy, but recommended an MRI of the brain to be sure. Last MRI was 5 days ago and was normal. MRI was ordered accordingly. 4. DELVIS: appreciate nephrology consult. Unfortunately, radiology administered gadolinum despite her low GFR. So nephrology will take her to dialysis (using her dialysis/pheresis catheter already in place) to prevent nephrogenic systemic fibrosis. Ming Gomez MD Fellow, Hematology/Oncology [facility] Pager #[phone] Staff 12/21/12 8pm Pt remains intermittently confused today. Her labs indicate rise in creat, and her Hgb is 7.7. Plates continue to rise.Blood cxs are showing staph aureus. Empiric abitoics were started yesterday, inclduing vancomycin. Repeat BC from today are pending. Pt was seen by Neuro and Nephrology this AM. Given waxing/waning mental status, both services suggested repeat Head MRI to assess for any potentiaql change and to consider possible vasculitis. I rec'd a page from Dr Mo of radiology stating that pt rec'd gadolinium with her MRI. Due to our concern about possible nephrogenic systemic fibrosis (NSF), given pt's creat clear of 22 ml/min. Both Dr Mo and I spoke with Nephrology. I also spoke with Clinical Pharm (Dr Sammy Whalen). Given the risk of NSF, although low at </= 4%, and pt already w/ a pheresis cath, the decision was made to start hemodialysis in an attempt to prevent the potential for NSF (suuported by literature). I met with the pt daughter and this evening to explain the events. I explained the above indetail and the rationale for dialysis, including the potential to prevent a serious disorder with little downside. I answered all their questions.They voiced a clear understanding and agreed with proceeding with hemodialysis. I spent 2 hours in coordination of care and with family meeting. (530p to 730pm) Edil Ohara MD Staff * Brian Velazco MD - 12/21/2012 8:57 AM EDT [facility] INPATIENT FOLLOW UP PATIENT: Anum Henriquez : 1960 ROOM: [address] [place] [address] ID: 52 y.o. 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 Subjective: Had episode of confusion/AMS yesterday and SOB with CXR consistent with pulmonary opacities concerning for pulmonary edema. This was attributed to TRALI Started on lasix IV with good responde This AM seems confuse, with some twitching movements in upper and lower extremities Also complaining of some soreness in area of PICC line and HD line MEDS: ??? potassium chloride 20 mEq Intravenous Q2H ??? esomeprazole 40 mg Intravenous BID ??? furosemide 40 mg Intravenous Once ??? LORazepam 1 mg Intravenous Once ??? piperacillin-tazobactam 3.375 g Intravenous Q8H ??? vancomycin 1 g Intravenous Q24H ??? furosemide 40 mg Intravenous Once ??? DISCONTD: vancomycin 1 g Intravenous Q12H ??? folic acid 1 mg Oral Daily ??? chlorhexidine 15 mL Oral BID ??? sodium chloride 0.9 % 5 mL Intravenous Q12H ??? DISCONTD: esomeprazole 40 mg Oral Daily ??? DISCONTD: esomeprazole 40 mg Intravenous Daily EXAM: Last value Range last 24 hrs Temperature Temp: 37 ??C (98.6 ??F) Temp: [36.8 ??C (98.2 ??F)-38 ??C (100.4 ??F)] Heart Rate Heart Rate: 81 Heart Rate: [74-110] Blood Pressure BP: 135/78 mmHg BP: (102-191)/(46-98) Respiratory Rate Resp: 20 Resp: [16-28] SpO2 SpO2: 95 % SpO2: [88 %-100 %] Art BP BP (Arterial Line): -- Wt Readings from Last 3 Encounters: 12/21/12 76 kg (167 lb 8.8 oz) 07/13/13 76 kg (167 lb 8.8 oz) Intake/Output Summary (Last 24 hours) at 12/21/12 0857 Last data filed at 12/21/12 0615 Gross per 24 hour Intake 904 ml Output 2750 ml Net -1846 ml Gen: Alert and awake, just oriented to self ENT: moist mucous membranes Neck: R IJ HD line, mild tenderness in R chest and arm Lungs: CTA b/l no rales Heart: S1/S2 normal, no murmurs, rubs, gallop Abd: +BS, no distended Extrem: edema + in dependent areas Neuro: AAO x 3, tremors and impress myoclonus in lower and upper extremities Babinsky sign absent bilaterally LABS: Lab Results Component Value Date WBC 17.8* 12/21/2012 RBC 2.49* 12/21/2012 HGB 7.7* 12/21/2012 HCT 22.4* 12/21/2012 MCV 90.0 12/21/2012 MCH 30.9 12/21/2012 MCHC 34.4 12/21/2012 PLATELET 158 12/21/2012 RDWCV 14.7* 12/21/2012 Lab Results Component Value Date Sodium 137 12/21/2012 Potassium 3.1* 12/21/2012 Chloride 97* 12/21/2012 CO2 27 12/21/2012 BUN 33* 12/21/2012 Creatinine 2.29* 12/21/2012 Glucose Lvl 102 12/21/2012 Lab Results Component Value Date CALCIUM 7.9* 12/21/2012 Lab Results Component Value Date PHOS 4.1 12/21/2012 CXR 12/20 Impression Increase in bilateral pulmonary opacities, however unable to determine if effusions increased in size due to differences in study. Lateral film recommended if there is clinical concern. IMPRESSION/ RECOMMENDATIONS: 52 yo female admitted with microangiopathic hemolytic anemia/thrombocytopenia and non oliguric acute kidney injury. Started on plasma exchange daily until 12/20. (received 7 treatment total). LDH trending down and HGB/PLT improving. [id number] is normal and infectious work-up is negative so far. Kidney function remains stable with stable chemistries and UOP. Yesterday developed AMS and SOB and was found with pulmonary opacities concerning for fluid overload/pulmonary edema. Patient started on diuretics. This AM her mental status seemed to be worse and also has some tremors and myoclonus. Team consulted Neurology and MRI was done with gadolinium. Given her low GFR it was decided to do HD given risk for NSF. Patient seen during HD, tolerating treatment well Recs: - HD today, 3 hour run, 300 cc/hr BFR, 700 cc/hr dialysate - Access: R IJ HD line - Plan x treatments tomorrow and Sunday - Will follow Seen and discussed with Dr. Mora Crum. Salvador Renner MD Nephrology Fellow Pager# [phone] Renal Staff: This patient is seen and examined with Dr. Renner and I agree with his note and make the following additional comments: discussed in detail with heme service and with patient's and daughter. While hematologic parameters have improved, she has remained encephalopathic and this, by accounts of family and doctors who have been following her, has worsened. The picture is mainly nonfocal although she does have some disconjugate gaze that may suggest a 6th n palsy on left, her eye exam is difficult as she is not able to cooperate. She has clonus, myoclonus and asterixis, bursts of garbled speech, occasional lucid answers. Line site ok but +blood cxs noted. Chest with some scant crackles bi laterally to my exam, otherwise as above. MRI findings reviewed. CXR viewed - pathcy inf c/w edema or infection. Given exposure to sharron with mri and her toxic/metabolic encephalopathy that could be in part uremic, advised HD daily x 3. Family agreeable. It will be interesting to see if this helps clear mental picture. Please repeat bld cxs. Would like to use current ij cath for hd but if cxs stay +, will need to replace sooner. Still not clear that entire picture is TTP vs HUS vs other? HUS (hx of bloody diarrhea) may be best fit but low complements not typical. Suggest checking JACKY and rechecking complements after she has a had a brief respite from plex. * Jaleel Reynoso MD - 12/20/2012 10:00 PM EDT Transfusion Medicine Service Transfusion Reaction Report Transfusion Medicine Attending Physician: JALEEL REYNOSO MD Transfusion Medicine Fellow/Resident: MARIE WADE DO Date: 12/20/2012 Patient Name: Anum Henriquez Date of : 1960 Chief Complaint: The patient is a 52 y.o. year old female admitted in transfer from [facility] for hemorrhagic colitis and thrombocytopenia on 12/13/2012 7:56 PM. The trends in her labs andthe presence of schistocytes and rare spherocytes on her peripheral blood smear consistent with MAHA supported a clinical diagnosis of TTP-HUS. She has been treated accordingly with daily therapeuticplasma exchange. After this mornings plasma exchange, the patient became confused, 02 desats to 88%requiring 6 L O2 via n/c, she later became febrile and a CXR showed an increase in bilateral pulmonary opacities so a transfusion reaction was reported. Problem List: Patient Active Problem List Diagnoses Code ??? Hemorrhagic colitis 558.9 ??? Thrombocytopenia 287.5 ??? Hyperthyroidism 242.90 ??? 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 Reaction Description: Fever, dyspnea, hypoxemia, bilateral infiltrates on CXR. Implicated Component Information: Unit Number(s): [id number], [id number], [id number], [id number], [id number] Unit ABO Type(s): AB Volume Transfused: All Premedication: None Blood Warmer Used: Yes Other Products Transfused in Previous 24 Hours: Yes Relevant History: History of Previous Transfusion Reactions: Yes History: Yes Relevant Labs: Recent Labs Basename 12/20/12 1355 12/20/12 0450 12/19/12 0320 WBC 12.4* 10.0 8.9 HGB 7.1* 7.1* 7.8* HCT 21.4* 21.4* 23.2* PLATELET 138* 139* 123* Recent Labs Basename 12/20/12 1355 12/20/12 0450 12/19/12 0320 NA 139 140 145 K 3.9 3.5 3.7 CL 100 100 104 CO2 27 32* 28 BUN 34* 38* 41* CREATININE 1.86* 2.11* 2.19* Recent Labs Basename 12/20/12 0450 12/19/12 0320 12/18/12 0425 12/16/12 0440 12/13/12 2242 12/13/12 2200 BILITOT -- -- -- 0.8 -- 1.0 BILIDIR -- -- -- 0.2 -- 0.2 LDH 220 270* 306* -- -- -- HAPTOGLOBIN -- -- -- -- <10 -- Recent Labs Basename 12/20/12 1355 12/20/12 0450 12/19/12 0740 12/13/12 2200 INR 1.4* -- -- 1.3* PT 17.1* -- -- 16.5* PTT 41* -- -- 27 FIBRINOGEN -- 170* 214 425 Component Value Date/Time SPGRAVITYUA 1.007 12/20/2012 1555 PHUADIP 6.0 12/20/2012 1555 PROTEINUADIP 100* 12/20/2012 1555 GLUCOSEU Negative 12/20/2012 1555 KETONESUA Trace* 12/20/2012 1555 UROBILIUADIP Normal 12/20/2012 1555 BLOODUADIP Moderate 12/20/2012 1555 NITRATEUA Negative 12/20/2012 1555 LEUKOESTERUA Negative 12/20/2012 1555 WBCUA 6* 12/20/2012 1555 BILIRUBINUA Negative 12/20/2012 1555 Medications: Scheduled Meds: ??? potassium chloride 20 mEq Intravenous Q2H ??? esomeprazole 40 mg Intravenous BID ??? furosemide 40 mg Intravenous Once ??? LORazepam 1 mg Intravenous Once ??? piperacillin-tazobactam 3.375 g Intravenous Q8H ??? vancomycin 1 g Intravenous Q24H ??? furosemide 40 mg Intravenous Once ??? DISCONTD: vancomycin 1 g Intravenous Q12H ??? folic acid 1 mg Oral Daily ??? chlorhexidine 15 mL Oral BID ??? sodium chloride 0.9 % 5 mL Intravenous Q12H ??? DISCONTD: esomeprazole 40 mg Oral Daily ??? DISCONTD: esomeprazole 40 mg Intravenous Daily Continuous Infusions: PRN Meds:.Vancomycin Level - MAR Order Reminder, LORazepam, DISCONTD: Vancomycin Level - MAR Order Reminder, diphenhydrAMINE, ondansetron, ondansetron, benzocaine, HYDROmorphone, acetaminophen, zolpidem, prochlorperazine, prochlorperazine Vital signs: TIME TEMP PULSE RESP BP Pre- TXN 8:57 37.1 82 18 142/91 Post- TXN 10:56 36.8 74 18 180/93 Post- TXN 14:29 38.0 84 22 131/84 Fluid Balance: Intake/Output Summary (Last 24 hours) at 12/20/122201 Last data filed at 12/20/12 1939 Gross per 24 hour Intake 50 ml Output 2375 ml Net -2325 ml Laboratory Investigation: Not performed Reaction Assessment: [facility] Reaction Classification: Transfusion-associated circulatory overload (TACO) Severity: Grade 1 (Non-Severe) Imputability:Probable Recommendations: Transfusion-associated circulatory overload is characterized by an infusion volume that cannot be effectively processed by the recipient either due to high rate and/or volume of infusion or an underlying cardiac or pulmonary pathology. The differential diagnosis for the patients presentation also includes TRALI which presents as acute non-cardiogenic pulmonary edema within minutes to hours after transfusion. The exact cause is unknown. Well established cases often demonstrate antibodies in the donor unit (either HLA or granulocyte antibodies) that react with antigens of the recipient. These antibodies are presumed to bind to recipient antigens on pulmonary capillary endothelium or on leukocytes in the pulmonary vasculature and induce complement or cytokine-mediated pulmonary edema. Although we feel that TRALI is unlikely, we have contacted the [facility] to determine the HLA status of donor units transfused and will report these results in an addendum. The patient is cleared for additional blood product transfusions if clinically indicated. The duration of transfusion should be extended to up to four hours per unit to prevent volume overload. Please report any subsequent reactions to the Transfusion Medicine Service. MARIE WADE DO 12/20/2012 ATTENDING MD ATTESTATION: I reviewed the clinical data and laboratory evaluation. I agree with the interpretation as presented by Dr. Wade. The differential for her acute change in respiratory status includes an evolving infection for which antibiotics were appropriately started. Her WBC is trending up today which supportsthis as well as the slight fever at the time of the reaction. Lab Results Component Value Date/Time WBC 17.8* 12/21/2012 6:50 AM WBC 12.4* 12/20/2012 1:55 PM WBC 10.0 12/20/2012 4:50 AM WBC 8.9 12/19/2012 3:20 AM WBC 7.7 12/18/2012 4:25 AM Also included on the differential which could be complicating the picture is pulmonary embolus as the patient is known to have bilateral lower extremity clots. Due to her renal dysfunction this possibility could not evaluated by CT scan and her chest xray findings of bilateral pulmonary edema wouldmake a VQ scan difficult to interpret. The acute change in respiratory status following plasma exchange can be best explained by transfusion associated circulatory overload. This is supported by her elevated BNP although must be interpreted with caution as we do not have a baseline. Results for ANUM HENRIQUEZ ( ) as of 12/21/2012 09:01 Ref. Range 12/20/2012 16:10 ProBNP Latest Range: <=125 pg/mL 2411 (H) Although her fluid status appears that she is net negative, patient and family report that she is edematous and post plasma exchange she was given lasix with urine output of 1100 ml per nursing report. Although the goal of plasma exchange is to leave the patient with an even fluid balance, the calcium that is run to prevent procedure related hypocalcemia left her 100cc up at the end of the procedure. Although the assessment of this reaction is attributed to circulatory overload, her current respiratory status is probably multifactorial with hospital acquired pneumonia high on my differential. We cannot exclude the possibility of TRALI although with plasma mitigation efforts it is unlikely that she received plasma from a donor with HLA/HNA antibodies (the causative agent in antibody mediated TRALI from plasma containing products). Most donor centers collect plasma from males exclusively ( they are not sensitives to HLA/HNA through ) or test all female donors to confirm that thelack these antibodies. However, given the demand for group AB plasma, the universal donor plasma, it is possible that AB units could be produced from first time untested female donors. We will make an inquiry with the blood supplier to investigate this possibility and report the findings as an addendum to this note. The treatment for TRALI is supportive care. Again, we reiterate that while this is a possibility on the differential, there are other causes that more likely explain this presentation. This patient may receive additional blood components if clinically indicated. JALEEL REYNOSO MD 12/21/2012 Addendum The blood supplier confirmed that all of the transfused plasma units were from male donors except for one unit of plasma [id number] which as donated by female who was HLA negative. This excludes the possibility of antibody mediated TRALI. Marie Wade, 12/21/2012 * Jimmy Tuttle OTA - 12/20/2012 4:04 PM EDT Occupational Therapy Encounter Spoke with RN who advised that the patient was not appropriate for therapy today, will follow up onSunday. GREGORY Nelson Pager #[phone] * Amanda Odonnell PT - 12/20/2012 1:48 PM EDT Spoke with OT who reports that pt not medically appropriate for PT today. [employer] reportedly inwith pt. Will plan to follow-up on Sunday. Amanda Odonnell PT Pager #[phone] * Ankit Ohara MD - 12/20/2012 9:34 AM EDT Attending Addendum: I personally saw, examined and interviewed the patient. I agree with the history, physical, assessment and plan in the note by Dr Kimball. I have seen and examined the patient on rounds and I have discussed the management with the team. I have reviewed all pertinent laboratory and radiographic findings. I agree with the plan and have the following additional corrections and/or comments. 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 LDH better, as is creatinine. Her Hgb is down today, but she noted a reddish stool last evening suggestive of blood in her stools.EGD showed erythematous and submucosal hemorrhages of gastric wall.She notes diploplia. Head MRI was normal. Confusing clinical picture, since [id number] was normal. We will give [address] Reynoso of [facility] and I discussed rx. Plan is to hold Plasma exchange tomorrow and monitor clinical course (neuro exam) as well as labs. Graves - normal TSH and consult endocrine as renal would like to hold the methimazole. ID - ID w/u thus far shows normal stool cxs. HIV negative. Time: 36 mins with the majority of time spent in coordination of care Edil Ohara MD Staff * Luis E Trotter MD - 12/20/2012 8:57 AM EDT [facility] INPATIENT FOLLOW UP PATIENT: Anum Henriquez : 1960 ROOM: [address] [place] [address] ID: 52 y.o. 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 Subjective: Feels better, has mild pain in the double lumen catheter placement site as it was accidentally pulled but no bleeding. MEDS: ??? folic acid 1 mg Oral Daily ??? furosemide 40 mg Intravenous Once ??? chlorhexidine 15 mL Oral BID ??? sodium chloride 0.9 % 5 mL Intravenous Q12H ??? esomeprazole 40 mg Oral Daily Or ??? esomeprazole 40 mg Intravenous Daily EXAM: Last value Range last 24 hrs Temperature Temp: 36.8 ??C (98.2 ??F) Temp: [36.8 ??C (98.2 ??F)-37.2 ??C (99 ??F)] Heart Rate Heart Rate: 77 Heart Rate: [64-77] Blood Pressure BP: 138/88 mmHg BP: (120-138)/(80-88) Respiratory Rate Resp: 16 Resp: [16-18] SpO2 SpO2: 96 % SpO2: [95 %-100 %] Art BP BP (Arterial Line): -- Wt Readings from Last 3 Encounters: 12/20/12 76.2 kg (167 lb 15.9 oz) 12/20/12 76.2 kg (167 lb 15.9 oz) Intake/Output Summary (Last 24 hours) at 12/20/12 0857 Last data filed at 12/20/12 0846 Gross per 24 hour Intake 622 ml Output 2325 ml Net -1703 ml Gen: AAO x 3 in NAD ENT: moist mucous membranes Neck: no JVD Lungs: CTA b/l no rales Heart: S1/S2 normal, no murmurs, rubs, gallop Abd: +BS, mildly tender but less than before, non distended, no organomegaly G-U: em in place Extrem: edema in abdominal wall, back and extremities but decreased from yesterday. Neuro: AAO x 3, some tremors are noted but do not affect distal extremities only. Mostly intentional, not seen at rest much. LABS: Lab Results Component Value Date WBC 10.0 12/20/2012 RBC 2.40* 12/20/2012 HGB 7.1* 12/20/2012 HCT 21.4* 12/20/2012 MCV 89.2 12/20/2012 MCH 29.6 12/20/2012 MCHC 33.2 12/20/2012 PLATELET 139* 12/20/2012 RDWCV 14.6* 12/20/2012 Lab Results Component Value Date Sodium 140 12/20/2012 Potassium 3.5 12/20/2012 Chloride 100 12/20/2012 CO2 32* 12/20/2012 BUN 38* 12/20/2012 Creatinine 2.11* 12/20/2012 Glucose Lvl 104 12/20/2012 Lab Results Component Value Date CALCIUM 7.8* 12/20/2012 Lab Results Component Value Date PHOS 4.9* 12/20/2012 Fibrinogen: <200 IMPRESSION/ RECOMMENDATIONS: 52 yo female with microangiopathic hemolytic anemia/thrombocytopenia and non oliguric acute kidney injury having plasma exchange daily up until yesterday when replacement was done with albumin and FFP. Patient received 6 treatment of plasma exchange. LDH still elevated, platelets still <150 noted but improving, creatinine seems to be stable for 5 days now. Although other abnormalities related tothis TTP like picture are getting better it is unclear what the cause is. Low complements contrast with TTP. Will plan to do a biopsy next week should Creatinine does not improve. Renal dose of medications Avoid nephrotoxins Seen and Discussed with Dr. Sergo Gomes MD Nephrology Fellow Pager # [phone] Renal Attending: The patient was examined together with the renal fellow and I agree with the above note, because of the atypical features of this case would consider renal biopsy if no further recovery of renal function * Jaleel Reynoso MD - 12/20/2012 7:39 AM EDT Transfusion Medicine Service Procedure Note Transfusion Medicine Attending Physician: Jaleel Reynoso MD Transfusion Medicine Resident/Fellow: Jay Toscano MD (PGY6 Hematology/Oncology Fellow) Date: 12/20/2012 Procedure Type: Therapeutic Plasma Exchange Number 7 of ongoing Indication / Diagnosis: HUS ASFA Category: I Grade: 1A Relevant History / Background: Mrs Henriquez (prefers Anum) is a 52 year old female with a past medical history of Graves disease (reportedly stable on methimazole for >10 years) who presented to [facility] 6 days ago with watery/bloody diarrhea and abdominal cramping and was subsequently admitted and started on fluids, cipro, and flagyl. Per Heme/Onc note, notable outside labs consist of an admission WBC of13.1 with 89% neutriphils, Hgb 14.5, Plts 151, fecal leukocytes, stool culture negative, negative for Shiga toxin, and 2 stool cultures negative for C Diff (12/10 and 12/12/12) with a third returning positive (12/13/12). She was [place] [facility] [place] after daily labs revealed a drop in platelets from 151 to 66, increase of Cr from 0.8 to 1.2, and elevated LDH at 1187 (all per OSH). [facility] labs confirmed thrombocytopenia at 46 (currently 44), increasing Creatinine (1.4 at [facility] admission, currently 1.74) LDH of 672, dropping hemoglobin (Per OSH, 14 at initial admit, 11.9 at [facility] admit, currently 10.8), and low haptoglobin (<10). INR and fibrinogen are normal. Additionally, a peripheral blood smear revealed thrombocytopenia and anemia with schistocytes, rare spherocytes c/w microangiopathic hemolytic anemia. 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 History since last visit: Anum feeling generally better this AM. She does note continued double vision, worse on looking at things afar than near. She says yesterday and this morning, when watching TV she had worsened diplopia and associated nausea. She vomited this AM. Still with intermittent (especially with movement) 8/10 epigastric and right sided abdominal pain which she says is actually somewhat better this AM c/w yesterday. She denies any CP/SOB/F/C/SWIFT. No stool yet today. She in fact is more talkative this AMand not confused. Allergies: Erythromycin base Relevant Medications: Scheduled Meds: ??? folic acid 1 mg Oral Daily ??? furosemide 40 mg Intravenous Once ??? chlorhexidine 15 mL Oral BID ??? sodium chloride 0.9 % 5 mL Intravenous Q12H ??? esomeprazole 40 mg Oral Daily Or ??? esomeprazole 40 mg Intravenous Daily Continuous Infusions: PRN Meds:.diphenhydrAMINE, ondansetron, ondansetron, benzocaine, DISCONTD: fentaNYL (PF), DISCONTD:midazolam, HYDROmorphone, DISCONTD: diphenhydrAMINE, acetaminophen, zolpidem, prochlorperazine, prochlorperazine, DISCONTD: ondansetron, DISCONTD: ondansetron Physical Exam: Constitutional: Well nourished, no evidence of distress. HEENT: Normocephalic, atraumatic. PERRL. EOMI. No scleral icterus. No mucosal ulcerations. No cervical lymphadenopathy. Respiratory: Lungs clear to auscultation bilaterally, no wheezing, rhonchi, rales. Cardiovascular: Normal rhythm, regular rate. + trace LE edema. Abd: Soft, normoactive bowel sounds; +RLQ and epigastric tenderness Musculoskeletal: Normal range of motion. Neuro: AAOx3, Cranial nerves 2-12 grossly intact. 5/5 strength bilaterally, no sensory deficits. Skin: Warm, dry. No rashes. Psychiatric: Thought content normal. Normal mood and affect. Current laboratory data: Recent Labs Basename 12/20/12 0450 [id number]/18/1242412/17/12 1300 12/17/12 0400 WBC 10.0 8.9 7.7 6.9 6.7 HGB 7.1* 7.8* 7.9* 6.2* 7.0* HCT 21.4* 23.2* 22.4* 18.3* 19.7* PLATELET 139* 123* 99* 65* 58* NEUTROABS 8.24* 7.21* 5.75 5.12 5.16 Recent Labs Basename 12/20/1244912/19/1231912/18/1242412/17/12 0400 12/16/12 0440 NA 140 145 140 141 139 K 3.5 3.7 4.2 -- -- CL 100 104 104 108* 111* CO2 32* 28 29 24 22 BUN 38* 41* 41* 37* 33* CREATININE 2.11* 2.19* 2.28* 2.25* 2.29* Recent Labs Basename 12/20/1244912/19/1231912/18/1242412/17/12 0400 12/16/12 0440 12/13/12 2200 AST -- -- -- -- 49* 30 ALT -- -- -- -- 21 10 ALKPHOS -- -- -- -- 32* 29* BILITOT -- -- -- -- 0.8 1.0 BILIDIR -- -- -- -- 0.2 0.2 LDH 220 270* 306* 366* 455* -- Recent Labs Basename 12/20/1244912/19/12 0740 12/13/12 2200 INR -- -- 1.3* PT -- -- 16.5* PTT -- -- 27 FIBRINOGEN 170* 214 425 Information about today's procedure A time out was called and the patient's identity was verified. Based on the physical exam and laboratory data, the patient qualified for TPE and the procedure was initiated. The procedure was performed by Janice Trujillo RN under Dr Jaleel Reynoso's supervision. The procedure began at 0857 and was concluded at 1056. Volumes: Plasma volumes exchanged: 1.0 Total AC Used: 531mL Remove bamL Replaced: Albumin ~ 2250mL, remaining was plasma Bolus: 0mL Rinseback: 158mL saline Plasma removed: 3458mL AC in remove bamL AC to patient: 45mL Fluid balance: 10mL In addition, the patient received infusion of 3g calcium gluconate diluted in 100 mL 0.9% NaCl throughout the procedure at 45-50 mL/hour to prevent hypocalcemia. Total volume administered was 94.9mL. Vital signs: Pre: BP 142/91, P 82, RR 18, T 37.1 deg C Post: BP 180.93, P 74, R 18, T 36.8 deg C Complications noted (if any): Had a hive on the right shoulder, noted during rinseback at the very end of the procedure. Otherwise, tolerated the procedure well. 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 Continually improving platelet count - up to 139 today, LDH continues to improve and is now normal, stable kidney function. Hemoglobin dropping slightly over past couple days. Fibrinogen <200. - Given 2/3 albumin, 1/3 plasma today given normal ISXESV38 activity. Plasma given for coag factor purposes (Fibrinogen <200). - Will plan to hold treatment tomorrow and observe. If patient and/or labs (plts, LDH, etc) worsen on Sunday then we can resume TPE treatment. - F/u Plts, Hgb, LDH, Ca, coags - GI w/u per GI team. Jay Toscano MD Fellow, Hematology/Oncology Pager #: [phone] ATTENDING MD ATTESTATION: The apheresis procedure was performed under my supervision. I was present during critical portions of the procedure and available throughout. I personally interviewed and examined the patient and reviewed all clinical and laboratory data. I reviewed the note written by Dr. Toscano and agree with the findings, assessment and plan. We will hold plasma exchange tomorrow and monitor labs. Based on the history of bloody diarrhea andthe.normal ADAMTS-13, this is most likely typical HUS which will resolve with supportive care. JALEEL REYNOSO MD 12/21/2012 * Rehana John Askew - 12/20/2012 7:15 AM EDT Inpatient Hematology/Oncology/SCT Progress Note Patient info: Name: Anum Henriquez : 1960 PCP: BAKARI COSTELLO APRN PCP phone number: [phone] Date of Admission: 12/13/2012 ( Hospital Day 7 days ) Service: Hem/Onc Team B - Pager [phone] Responsible Attending:Ankit Ohara MD ID: Anum Henriquez is a 52 y.o. 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 Now receiving plasma exchange Day 5 (12/18). Hospital Problem List: Patient Active Problem List Diagnoses Code ??? Hemorrhagic colitis 558.9 ??? Thrombocytopenia 287.5 ??? Hyperthyroidism 242.90 ??? 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 24 Hour Events: - calf pain mildred, on right - PLTs increased for 4th day now 139 - LDH decreasing(220 from 270) - Hb is stable at 7.8 (7.9 yesterday) - I/Os -1600ml, weight weight not available - EGD shows ulceration gastrum - melana sotol last night - Creatinine 2.19 is trending down Subjective -abdominal pain present, but better again -neurologic issues basically unchanged - yesterday still has intermittent moments of confusion, nausea with her diplopia when watching things on television, vertigo persisting (~5days now) -sensation of edema/swelling is improved Vitals: Last value Range last 24 hrs Temperature Temp: 37.9 ??C (100.2 ??F) Temp: [36.8 ??C (98.2 ??F)-38 ??C (100.4 ??F)] Heart Rate Heart Rate: 93 Heart Rate: [69-97] Blood Pressure BP: 131/84 mmHg BP: (120-191)/(46-98) Respiratory Rate Resp: 22 Resp: [16-22] SpO2 SpO2: 100 % SpO2: [88 %-100 %] Intake/Output Summary (Last 24 hours) at 12/20/12 1540 Last data filed at 12/20/12 1209 Gross per 24 hour Intake 290 ml Output 1675 ml Net -1385 ml Patient Vitals for the past 168 hrs: Weight 12/20/12 0500 76.2 kg (167 lb 15.9 oz) 12/19/12 0645 76.1 kg (167 lb 12.3 oz) 12/17/12 0719 76.5 kg (168 lb 10.4 oz) 12/16/12 0610 77.8 kg (171 lb 8.3 oz) 12/13/122021 73.6 kg (162 lb 4.1 oz) Admit wt:73.60 kg Change: +2.5kg Physical Exam: GEN: Thin but WDWN woman lying in bed, NAD, anxious-appearing. A&Ox3, interacting appropriately HEENT: PERRLA, EOMI, anicteric, exopthalmos, MMM, OP clear RESP: CTAB, no w/r/r CVS: RRR S1, S2; no murmurs, rubs, gallops Abd: Moderately distended but soft. Moderately tender to deep palpation diffusely. +BS. No rebound or guarding. No masses or HSM appreciated. EXT: Trace pitting edema lower legs bl, but legs feel tense. Upper LEs with tense edema equal bl. No calf tenderness or asymmetry. Skin: no lesions, no pitting, but skin feels tense Neuro: A&Ox3, dysmetria with [id number], motor 5/5 upper and lower ext. Antimicrobials: none Medications: Scheduled Meds: ??? potassium chloride 20 mEq Intravenous Q2H ??? esomeprazole 40 mg Intravenous BID ??? furosemide 40 mg Intravenous Once ??? LORazepam 1 mg Intravenous Once ??? folic acid 1 mg Oral Daily ??? chlorhexidine 15 mL Oral BID ??? sodium chloride 0.9 % 5 mL Intravenous Q12H ??? DISCONTD: esomeprazole 40 mg Oral Daily ??? DISCONTD: esomeprazole 40 mg Intravenous Daily Continuous Infusions: PRN Meds:.diphenhydrAMINE, ondansetron, ondansetron, benzocaine, HYDROmorphone, acetaminophen, zolpidem, prochlorperazine, prochlorperazine Labs: Recent Labs Basename 12/20/12 1355 12/20/12 0450 12/19/12 0320 WBC 12.4* 10.0 8.9 HGB 7.1* 7.1* 7.8* HCT 21.4* 21.4* 23.2* PLATELET 138* 139* 123* NEUTROABS 10.97* 8.24* 7.21* Recent Labs Basename 12/20/12 1355 12/20/12 0450 12/19/12 0320 NA 139 140 145 K 3.9 3.5 3.7 CL 100 100 104 CO2 27 32* 28 BUN 34* 38* 41* CREATININE 1.86* 2.11* 2.19* Recent Labs Basename 12/20/12 1355 12/20/12 0450 12/19/12 0320 12/18/12 0425 CALCIUM 8.2* 7.8* 8.5 -- MAGNESIUM 0.66* 0.71 0.80 -- PHOS -- 4.9* 4.8* 4.4 Recent Labs Basename 12/20/12 0450 12/19/12 0320 12/18/12 0425 12/16/12 0440 12/13/12 2200 AST -- -- -- 49* 30 ALT -- -- -- 21 10 ALKPHOS -- -- -- 32* 29* BILITOT -- -- -- 0.8 1.0 BILIDIR -- -- -- 0.2 0.2 LDH 220 270* 306* -- -- Recent Labs Basename 12/20/12 1355 INR 1.4* PT 17.1* PTT 41* Other Labs: C3 Complement 12/16 - 66 (low) C4 Complement 12/16 - 4 (low) TSH 12/16 - 3.68 Free T4 -0.88 (borderline low) Microbiology: C diff 12/15 - neg Stool wbc + Stool cx OSH 12/10 - negative Shiga toxin 12/17 - pending Campylobacter antigen 12/17 - pending Stool Cx (looking for E.coli O157)- 12/16 HIV 12/16 pending - negative Pertinent radiology/diagnostic studies: KUB 12/15: Mild gaseous distention of the small bowel with a few air-fluid levels. + gas within the colon. The pattern is most consistent with a partial small bowel obstruction. No evidence of free subdiaphragmatic air. MRI 12/16 Normal Bilateral DVT study 12/19: Interpretation: RIGHT: Non occlusive thrombus in one of the peroneal veins through the mid calf. No evidence of femoral to popliteal deep venous thrombosis. LEFT: Focal non occlusive thrombus in one of the posterior tibial veins in the mid calf. No evidence of femoral to popliteal deep venous thrombosis. Comparison: No previous study in our vascular lab database for comparison. Immune Studies: 12/16 C-ANCA, P-ANCA both negative 12/16 MPO Ab, 12/17 KIANA - negative, Pathology: 12/17 Blood smear: Scistocytes are more than noted in the previous smear EGD 12/19 - Normal esophagus. - Gastric mucosal abnormality in the gastric body characterized by erythema/submucosal hemorrhage likely related to TTP. 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 Awaiting ADAMTS-13 lab. . Stool culture (including e coli O157:H7 pending). Clinical picture did not appear to be consistent with C. Diff and so metronidazole was stopped. The history really points to E. Coli O157 so reordered stool culture - also checking HIV as this could be a cause of HUS-TTP Trending plts and LDH as most sensitive markers of response. PLTs increased today and LDH has decreased. Will continue plasma exchange until plts >150. Her mental status is in light of her well functioning self 2 weeks earlier, decreasing as she has moments where she is unsure if she has responded to questions or will be silent when talked to. In terms of her DELVIS, her creatinine is stable today. Will consider stopping plasmapheresis today and monitoring platelets and LDH to see if she will again need to restart pheresis on Sunday. 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 Her thrombocytopenia and hemolysis (schistocytes) qualify her for treatment plasmapheresis. Additionally her DELVIS and altered mental status are part of the HUS-TTP spectrum. However, our studies to date have not revealed a definitive etiology. - PLT count increased - ADAMTS-13 - f/u stool cx (including shiga toxin/E coli O157:H7) - daily plts and LDH - trend CBC, transfuse if necessary. No transfusions today -Low complement level -another blood smear to be sent -will wait until after plasma exchange to give vaccine # Mental Status -mental clarity improving -diplopia, dysmetria and vertigo persist # DELVIS - Likely 2/2 TTP-HUS plus decreased intake - Cr. Mild Decreasing 2.19 (from 2.28) - Nephrology following - she is still clinically hypervolemic - +3kg over admission wt. But better than yesterday +4kg - she was given Lasix 40mg one time, repeating today # Gastric ulcer - abdomen stable -on PPi, plaetlets improving - 2 days of BMs #Leg pain -Dopplers showed non occlusive thrombi - R leg in peroneal vein and L leg posterior tibial. -Using anticoagulant therapy in the context of her HUS-TTP would put her at too high of a risk for bleeding. #Hyperthyroidism/Graves -consulted Endo -stopping methimazole (12/16) -TSH level -MPO-ANCA following for possible vasculitis # FEN - repleting K, mag, phos prn - hypokalemia - starting regular diet - Advancing diet to see if she can tolerate solids # Other - DVT ppx - SCDs. No thx anticoag given b/c HUS-TTP CODE STATUS: Full Code JOHN KIMBALL MD, PGY-1 12/20/2012 Team A Pager #[phone] * Cody Posada MD - 12/19/2012 6:16 PM EDT ID CONSULT PROGRESS NOTE Patient was not seen and examined today, but chart was reviewed. She remains hemodynamically stable and afebrile. WBC count within a normal range. HIV was negative.Stool culture at [facility] [place] been finalized as negative. Her clinical syndrome is most consistent withTTP/HUS which is being managed by the hematology service without any clear infectious source identified. We would not recommend any further infectious work-up or treatment currently, and she remains stable off antibiotics. As noted in our previous recommendations, patient should have a repeat CT scan of abd/pelvis in a few weeks to evaluate for resolution of colonic thickening and if still abnormal, should have a colonoscopy. Please call with any further questions or concerns. * Mary Jane Silva LD - 12/19/2012 4:30 PM EDT Nutrition Progress Note: S: Per pt: Appetite is terrible, foods are tasting too sweet. O: Patient Active Problem List Diagnoses Code ??? Hemorrhagic colitis 558.9 ??? Thrombocytopenia 287.5 ??? Hyperthyroidism 242.90 ??? 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 Diet: Regular Height: 170.2 cm Admit Weight: 73.6 kg BMI: 25.5 Labs: BUN: 41, Creat: 2.19, Phos: 4.8, Est. GFR: 23 Medications: Lasix, KCL, Nexium, Compazine A: Pt seen for nutrition follow up. Po intake remains poor, consistent with last nutrition assessment two days ago at which time pt reported poor po since admission. Pt notes that sweet foods are two sweet such as watermelon and huny nut cheerios. Reviewed food choices and snacks that would good a source of nutrition but not overly sweet. Pt agrees to trail mix, peanut butter and crackers, and cheese and crackers between meals. If po intake does not improve over the next 24 - 48 hours, recommend alternative means of nutrition support. P: 1. Snack added between meals. 2. Encourage po intake. 3. Monitor weight. 4. Consider alternative means of nutrition support if po does not improve over the next 24 - 48 hours. 5. Nutrition to follow throughout hospital stay. * Jaleel Reynoso MD - 12/19/2012 1:01 PM EDT Transfusion Medicine Service Procedure Note Transfusion Medicine Attending Physician: Jaleel Reynoso MD Transfusion Medicine Resident/Fellow: Jay Toscano MD (PGY6 Hematology/Oncology Fellow) Date: 12/19/2012 Procedure Type: Therapeutic Plasma Exchange Number 6 of ongoing Indication / Diagnosis: TTP/HUS ASFA Category: I Grade: 1A Relevant History / Background: Mrs Henriquez (prefers Anum) is a 52 year old female with a past medical history of Graves disease (reportedly stable on methimazole for >10 years) who presented to [facility] 6 days ago with watery/bloody diarrhea and abdominal cramping and was subsequently admitted and started on fluids, cipro, and flagyl. Per Heme/Onc note, notable outside labs consist of an admission WBC of13.1 with 89% neutriphils, Hgb 14.5, Plts 151, fecal leukocytes, stool culture negative, negative for Shiga toxin, and 2 stool cultures negative for C Diff (12/10 and 12/12/12) with a third returning positive (12/13/12). She was transferred to [facility] on 12/13/12 after daily labs revealed a drop in platelets from 151 to 66, increase of Cr from 0.8 to 1.2, and elevated LDH at 1187 (all per OSH). [facility] labs confirmed thrombocytopenia at 46 (currently 44), increasing Creatinine (1.4 at [facility] admission, currently 1.74) LDH of 672, dropping hemoglobin (Per OSH, 14 at initial admit, 11.9 at [facility] admit, currently 10.8), and low haptoglobin (<10). INR and fibrinogen are normal. Additionally, a peripheral blood smear revealed thrombocytopenia and anemia with schistocytes, rare spherocytes c/w microangiopathic hemolytic anemia. 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 History since last visit: EGD 12/18 showed erythematous and submucosal hemorrhages of gastric wall. Anum feeling generally okay this AM. Notes slight SOB, mild nausea, and still with intermittent (especially with movement) 8/10 epigastric and right sided abdominal pain. She denied any CP/SOB/F/C/N/V/AP/SWIFT/focal neuro symptoms. Noted a normal stool this morning. Allergies: Erythromycin base Relevant Medications: Scheduled Meds: ??? folic acid 1 mg Oral Daily ??? furosemide 40 mg Intravenous Once ??? furosemide 40 mg Intravenous Once ??? DISCONTD: calcium gluconate 2 g Intravenous Once ??? chlorhexidine 15 mL Oral BID ??? sodium chloride 0.9 % 5 mL Intravenous Q12H ??? esomeprazole 40 mg Oral Daily Or ??? esomeprazole 40 mg Intravenous Daily Continuous Infusions: PRN Meds:.diphenhydrAMINE, ondansetron, ondansetron, benzocaine, DISCONTD: fentaNYL (PF), DISCONTD:midazolam, HYDROmorphone, DISCONTD: diphenhydrAMINE, acetaminophen, zolpidem, prochlorperazine, prochlorperazine, DISCONTD: ondansetron, DISCONTD: ondansetron Physical Exam: Constitutional: Well nourished, no evidence of distress. HEENT: Normocephalic, atraumatic. PERRL. EOMI. No scleral icterus. No mucosal ulcerations. No cervical lymphadenopathy. Respiratory: Lungs clear to auscultation bilaterally, no wheezing, rhonchi, rales. Cardiovascular: Normal rhythm, regular rate. + trace LE edema. Abd: Soft, normoactive bowel sounds; +RLQ and epigastric tenderness Musculoskeletal: Normal range of motion. Neuro: AAOx3, Cranial nerves grossly intact. Grossly non-focal exam Skin: Warm, dry. No rashes. Psychiatric: Thought content normal. Normal mood and affect. Current laboratory data: Recent Labs Basename 12/19/12 0320 12/18/12 0425 12/17/12 1300 12/17/12 0400 12/16/12 0440 WBC 8.9 7.7 6.9 6.7 6.4 HGB 7.8* 7.9* 6.2* 7.0* 7.5* HCT 23.2* 22.4* 18.3* 19.7* 22.2* PLATELET 123* 99* 65* 58* 42* NEUTROABS 7.21* 5.75 5.12 5.16 4.69 Recent Labs Basename 12/19/12 0320 12/18/12 0425 12/17/12 0400 12/16/12 0440 12/15/12 0350 NA 145 140 141 139 139 K 3.7 4.2 3.3* -- -- CL 104 104 108* 111* 113* CO2 28 29 24 22 20* BUN 41* 41* 37* 33* 26* CREATININE 2.19* 2.28* 2.25* 2.29* 2.12* Recent Labs Basename 12/19/12 0320 12/18/12 0425 12/17/12 0400 12/16/12 0440 12/15/12 0350 12/13/12 2200 AST -- -- -- 49* -- 30 ALT -- -- -- 21 -- 10 ALKPHOS -- -- -- 32* -- 29* BILITOT -- -- -- 0.8 -- 1.0 BILIDIR -- -- -- 0.2 -- 0.2 LDH 270* 306* 366* 455* 417* -- Recent Labs Basename 12/19/12 0740 12/13/122199 INR -- 1.3* PT -- 16.5* PTT -- 27 FIBRINOGEN 214 425 Information about today's procedure A time out was called and the patient's identity was verified. Based on the physical exam and laboratory data, the patient qualified for TPE and the procedure was initiated. The procedure was performed by Julita Willis RN under my supervision. The procedure began at 0947 and was concluded at 1150. Volumes: Plasma volumes exchanged: 1.0 Total AC Used: 536mL Remove bamL Replaced: 3285mL Bolus: 0mL Rinseback: 162mL saline Plasma removed: 3447mL AC in remove bamL AC to patient: 39mL Fluid balance: +13mL In addition, the patient received infusion of 3g calcium gluconate diluted in 100 mL 0.9% NaCl throughout the procedure at 45-50 mL/hour to prevent hypocalcemia. Total volume administered was 109mL. Vital signs: Pre: BP 134/85, P 72, R 18, T 36.6 deg C Post: BP 121/83, P 64, R 18, T 36.8 deg C Complications noted (if any): Patient felt some pinching in her hands and feet --> Inlet rate decreased to 40. Assessment/Plan: 52yo woman very likely suffering from diarrhea HUS (?E Coli o157:H7). Though she has had mild-moderate neurologic symptoms, and this might seem to be more consistent with TTP, in fact, diarrheal HUS in adults is more often associated with neurologic abnormalities than classically seen in HUS in children, which is associated with symptoms more classically thought of as HUS even in adults. Improving platelet count - 123 today, LDH continues to improve, somewhat improved kidney function. Hemoglobin stable today. - Given 2/3 albumin, 1/3 plasma today given normal [id number] activity. - Will plan to treat again tomorrow then, if platelets >/= 150 tomorrow, stop and observe. If patient and/or labs (plts, LDH, etc) worsen on Sunday then we can resume TPE treatment. - F/u Plts, Hgb, LDH, Ca, coags - GI w/u per GI team. JAY TOSCANO MD 12/19/2012 ATTENDING MD ATTESTATION: The apheresis procedure was performed under my supervision. I was present during critical portions of the procedure and available throughout. I personally interviewed and examined the patient and reviewed all clinical and laboratory data. I reviewed the note written by Dr. Toscano and agree with the findings, assessment and plan. The patient tolerated the procedure with no complications. She is improving overall based on labs (platelets, LDH, creatinine) but still has some issues with confusion and word finding. The benadryl she has been receiving for plasma exchange may be worseningher neurologic function as she appears to be quite sensitive to this. Now that we know her [id number] is normal, she no longer requires the use of plasma as the replacement fluid during plasma exchange. Today we replaced with 2/3 albumin and 1/3 plasma and she tolerated the procedure without developing hives with only 25 mg of Benadryl pre-treatment. I will recheck her fibrinogen tomorrow morning and if it is greater than 200 will perform the exchange tomorrow with all albumin and no plasma. This will avoid the need for any benadryl. If labs continue to improve tomorrow we will hold treatment on Sunday and observe labs. The next scheduled procedure will be tomorrow. JALEEL REYNOSO MD 12/19/2012 * Ankit Ohara MD - 12/19/2012 10:10 AM EDT Attending Addendum: I personally saw, examined and interviewed the patient. I agree with the history, physical, assessment and plan in the note by Dr Kimball. I have seen and examined the patient on rounds and I have discussed the management with the team. I have reviewed all pertinent laboratory and radiographic findings. I agree with the plan and have the following additional corrections and/or comments. She is Day 5 of plasma exchange Pt's mental status still intermittently confused She rec'd 1 u RBCs to date [id number] was normal at admission Based on my review, I suspect she has TTP/HUS with possible GI blood loss. This is based on her presentation with change in mental status, hemolysis, thrombocytopenia. With Plasma exchange, her LDH and platelets have improved. Her mental status is clearly not back to normal nor is her renal fxn. Head MRI was normal. This is a confusing clinical picture - I met with Dr Reynoso of [facility] this AM. At this time, her labs are improving but her mental status remains abn. We will continue plasma exchange today and tomorrow and re-assess.Bloody Diarrhea - CDiff + at outside hospital but negative here. Pt notes reddish stools yesterday but none today. EGD showed erythematous and submucosal hemorrhages of gastric wall. Her creat remains inc but stable - at 2.6 today (Nephrology is following along w/ us). Mild diuersis onglong Graves - normal TSH and consult endocrine as renal would like to hold the methimazole. ID - ID w/u thus far shows normal stool cxs. HIV negative. Time: 37 mins with the majority of time spent in coordination of care K Alannah PANTOJA Staff * Luis E Trotter MD - 12/19/2012 7:50 AM EDT [facility] INPATIENT FOLLOW UP PATIENT: Anum Henriquez : 1960 [facility] ID: 52 y.o. 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 Subjective: Feels lousy as she could not sleep well, abdominal pain better, only had 2 somewhat formed BM's yesterday. [place] SOB and had hypoxia in afternoon but improved with lasix. MEDS: ??? furosemide 40 mg Intravenous Once ??? DISCONTD: calcium gluconate 2 g Intravenous Once ??? chlorhexidine 15 mL Oral BID ??? sodium chloride 0.9 % 5 mL Intravenous Q12H ??? esomeprazole 40 mg Oral Daily Or ??? esomeprazole 40 mg Intravenous Daily EXAM: Last value Range last 24 hrs Temperature Temp: 36.6 ??C (97.9 ??F) Temp: [36.6 ??C (97.9 ??F)-37.3 ??C (99.1 ??F)] Heart Rate Heart Rate: 75 Heart Rate: [63-82] Blood Pressure BP: 138/82 mmHg BP: (102-153)/(70-89) Respiratory Rate Resp: 20 Resp: [12-20] SpO2 SpO2: 99 % SpO2: [77 %-100 %] Art BP BP (Arterial Line): -- Wt Readings from Last 3 Encounters: 12/19/12 76.1 kg (167 lb 12.3 oz) 12/19/12 76.1 kg (167 lb 12.3 oz) Intake/Output Summary (Last 24 hours) at 12/19/12 0750 Last data filed at 12/19/12 0636 Gross per 24 hour Intake 685 ml Output 2650 ml Net -1965 ml Gen: AAO x 3 in NAD ENT: moist mucous membranes Neck: no JVD Lungs: CTA b/l no rales Heart: S1/S2 normal, no murmurs, rubs, gallop Abd: +BS, mildly tender but less than before, non distended, no organomegaly G-U: em in place Extrem: edema in abdominal wall, back and extremities but decreased from yesterday. Neuro: AAO x 3, some tremors are noted but do not affect distal extremities only. Mostly intentional, not seen at rest much. LABS: Lab Results Component Value Date WBC 8.9 12/19/2012 RBC 2.66* 12/19/2012 HGB 7.8* 12/19/2012 HCT 23.2* 12/19/2012 MCV 87.2 12/19/2012 MCH 29.3 12/19/2012 MCHC 33.6 12/19/2012 PLATELET 123* 12/19/2012 RDWCV 14.5* 12/19/2012 Lab Results Component Value Date Sodium 145 12/19/2012 Potassium 3.7 12/19/2012 Chloride 104 12/19/2012 CO2 28 12/19/2012 BUN 41* 12/19/2012 Creatinine 2.19* 12/19/2012 Glucose Lvl 98 12/19/2012 Lab Results Component Value Date CALCIUM 8.5 12/19/2012 Lab Results Component Value Date PHOS 4.8* 12/19/2012 KIANA negative Stool cultures negative for Campylobacter and Shiga toxin [id number] normal level IMPRESSION/ RECOMMENDATIONS: 52 yo female with microangiopathic hemolytic anemia/thrombocytopenia and non oliguric acute kidney injury having plasma exchange daily , currently without any laboratory of clinical indication of renal replacement therapy. [id number] normal Today is day 5 of plasma exchange LDH still elevated, platelets still <150 noted but improving, creatinine seems to be stable for 3 days now. If no improvement is noted we may consider biopsy. KIANA, and cultures (shiga/campylobacter) noted to be negative Renal dose of medications Avoid nephrotoxins Seen and Discussed with Dr. Sergo Gomes MD Nephrology Fellow Pager # [phone] Renal Attending: The patient was examined together with the renal fellow and I agree with the above note, abdominal pain has improved, renal function is unchanged * Raad Bolaños W - 12/19/2012 7:12 AM EDT Gastroenterology Inpatient Consultation Patient ID: Anum Henriquez is a 52 y.o. female Consult Question to be Addressed: ? GIB in setting of TTP-HUS Active Hospital Problem List Patient Active Problem List Diagnoses ??? ','Hemorrhagic colitis Overview Note: CT shows sparing of the sigmoid and rectum ??? TTP (thrombotic thrombocytopenic purpura) Overview Note: 12/2012 - presented with bloody diarrhea. Developed thrombocytopenia, DELVIS, microangiopathic hemolytic anemia acutely. Treatment: plasma exchange started 12/14/12. ??? Thrombocytopenia ??? Hyperthyroidism Overview Note: Graves disease stable on methimazole for 10+ years. Interval History: EGD without focus of bleeding Plasma exchange continues, platelets up to 120s Allergies/Adverse reactions Erythromycin base Scheduled Meds: ??? furosemide 40 mg Intravenous Once ??? DISCONTD: calcium gluconate 2 g Intravenous Once ??? chlorhexidine 15 mL Oral BID ??? sodium chloride 0.9 % 5 mL Intravenous Q12H ??? esomeprazole 40 mg Oral Daily Or ??? esomeprazole 40 mg Intravenous Daily Continuous Infusions: PRN Meds:.benzocaine, fentaNYL (PF), midazolam, HYDROmorphone, diphenhydrAMINE, acetaminophen, ondansetron, ondansetron, zolpidem, prochlorperazine, prochlorperazine Physical Examination Wt Readings from Last 3 Encounters: 12/19/12 76.1 kg (167 lb 12.3 oz) 12/19/12 76.1 kg (167 lb 12.3 oz) Last value Range last 24 hrs Heart Rte Heart Rate: 75 Heart Rate: [63-82] Blood Pressure BP: 138/82 mmHg BP: (102-153)/(70-89) HEENT: Pleasant woman, non-toxic, mild exopthalmos Heart: Rrr, no m/r/g Resp: ctab Abd: Soft, tender in the epigastrium, +BS Extrem: warm, well perfused, no edema Pertinent Recent labs Recent Labs Basename 12/19/1231912/18/12 04212/17/12 1300 WBC 8.9 7.7 6.9 HGB 7.8* 7.9* 6.2* HCT 23.2* 22.4* 18.3* PLATELET 123* 99* 65* Recent Labs Basename 12/19/120 12/18/12 0425 12/17/12 0400 NA 145 140 141 K 3.7 4.2 3.3* CL 104 104 108* CO2 28 29 24 BUN 41* 41* 37* CREATININE 2.19* 2.28* 2.25* Recent Labs Basename 12/16/12 0440 12/13/12 2200 AST 49* 30 ALT 21 10 ALKPHOS 32* 29* BILITOT 0.8 1.0 BILIDIR 0.2 0.2 Recent Labs Basename 12/19/12 0320 12/18/12 0425 12/17/12 0400 12/15/12 0350 CALCIUM 8.5 8.1* 8.2* -- PHOS 4.8* 4.4 -- 3.1 Recent Labs Basename 12/13/12 2200 PT 16.5* INR 1.3* PTT 27 Pertinent Endoscopic Procedures/Reports EGD 12/18/12: Findings: The esophagus was normal. Diffuse erythematous mucosa with submucosal hemorrhages was found in the gastric body. The examined duodenum was normal. Impression: - Normal esophagus. - Gastric mucosal abnormality in the gastric body characterized by erythema/submucosal hemorrhage likely related to TTP. - Normal examined duodenum. Recommendation: Continue to monitor clinical course. Pertinent Recent Relevant Imaging CT 12/13/2012 (2nd read of OSH imagery) Assessment: 52yo female with TTP-HUS and concerns for possible ongoing GI blood loss. As her platelets correct,clinical evidence of GI bleeding appears to be fading. BUN remains high, but this cannot be used asan index for blood in the lumen given her elevated creatinine. An underlying occult malignancy, newIBD or possible AVMs are certainly possibilities. We are encouraged by her current hemodynamic stability now that her platelets are rebounding and LDH is dropping with plasma exchange. Recommendations - support through TTP-HUS - colonoscopy Raad Bolaños MD PhD Gastroenterology Fellow ([id number]) * John Kimball - 12/19/2012 5:52 AM EDT Inpatient Hematology/Oncology/SCT Progress Note Patient info: Name: Anum Henriquez : 1960 PCP: BAKARI COSTELLO APRN PCP phone number: [phone] Date of Admission: 12/13/2012 ( Hospital Day 6 days ) Service: Hem/Onc Team B - Pager [phone] Responsible Attending:Ankit Ohara MD ID: Anum Henriquez is a 52 y.o. 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 Now receiving plasma exchange Day 5 (12/18). Hospital Problem List: Patient Active Problem List Diagnoses Code ??? Hemorrhagic colitis 558.9 ??? Thrombocytopenia 287.5 ??? Hyperthyroidism 242.90 ??? 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 24 Hour Events: - calf pain mildred, on right - PLTs increased for third day now 123 - LDH decreasing(276 from 306) - Hb is stable at 7.8 (7.9 yesterday) - I/Os -1600ml, weight weight not available - EGD shows ulceration gastrum - Creatinine 2.19 is trending down Subjective -abdominal pain present, but better -mental status is no better today -sensation of edema/swelling is improved -persisting vertigo (4 days) -Diplopia (4 days) Vitals: Last value Range last 24 hrs Temperature Temp: 36.6 ??C (97.9 ??F) Temp: [36.6 ??C (97.9 ??F)-37.3 ??C (99.1 ??F)] Heart Rate Heart Rate: 65 Heart Rate: [63-75] Blood Pressure BP: 130/70 mmHg BP: (110-153)/(70-89) Respiratory Rate Resp: 18 Resp: [12-20] SpO2 SpO2: 96 % SpO2: [77 %-100 %] Intake/Output Summary (Last 24 hours) at 12/19/12 1001 Last data filed at 12/19/12 0903 Gross per 24 hour Intake 825 ml Output 2200 ml Net -1375 ml Patient Vitals for the past 168 hrs: Weight 12/19/12 0645 76.1 kg (167 lb 12.3 oz) 12/17/12 0719 76.5 kg (168 lb 10.4 oz) 12/16/12 0610 77.8 kg (171 lb 8.3 oz) 12/13/122021 73.6 kg (162 lb 4.1 oz) Admit wt:73.60 kg Change: +2.5kg Physical Exam: GEN: Thin but WDWN woman lying in bed, NAD, anxious-appearing. A&Ox3, interacting appropriately HEENT: PERRLA, EOMI, anicteric, exopthalmos, MMM, OP clear RESP: CTAB, no w/r/r CVS: RRR S1, S2; no murmurs, rubs, gallops Abd: Moderately distended but soft. Moderately tender to deep palpation diffusely. +BS. No rebound or guarding. No masses or HSM appreciated. EXT: Trace pitting edema lower legs bl, but legs feel tense. Upper LEs with tense edema equal bl. No calf tenderness or asymmetry. Skin: no lesions, no pitting, but skin feels tense Neuro: A&Ox3, Antimicrobials: none Medications: Scheduled Meds: ??? furosemide 40 mg Intravenous Once ??? DISCONTD: calcium gluconate 2 g Intravenous Once ??? chlorhexidine 15 mL Oral BID ??? sodium chloride 0.9 % 5 mL Intravenous Q12H ??? esomeprazole 40 mg Oral Daily Or ??? esomeprazole 40 mg Intravenous Daily Continuous Infusions: PRN Meds:.benzocaine, fentaNYL (PF), midazolam, HYDROmorphone, diphenhydrAMINE, acetaminophen, ondansetron, ondansetron, zolpidem, prochlorperazine, prochlorperazine Labs: Recent Labs Basename 12/19/1231912/18/1242412/17/12 1300 WBC 8.9 7.7 6.9 HGB 7.8* 7.9* 6.2* HCT 23.2* 22.4* 18.3* PLATELET 123* 99* 65* NEUTROABS 7.21* 5.75 5.12 Recent Labs Basename 12/19/1231912/18/1242412/17/12 0400 NA 145 140 141 K 3.7 4.2 3.3* CL 104 104 108* CO2 28 29 24 BUN 41* 41* 37* CREATININE 2.19* 2.28* 2.25* Recent Labs Basename 12/19/1231912/18/1242412/17/12 0400 12/15/12 0350 CALCIUM 8.5 8.1* 8.2* -- MAGNESIUM 0.80 0.83 -- 0.72 PHOS 4.8* 4.4 -- 3.1 Recent Labs Basename 12/19/1231912/18/1242412/17/12 0400 12/16/12 0440 12/13/12 2200 AST -- -- -- 49* 30 ALT -- -- -- 21 10 ALKPHOS -- -- -- 32* 29* BILITOT -- -- -- 0.8 1.0 BILIDIR -- -- -- 0.2 0.2 LDH 270* 306* 366* -- -- No results found for this basename: INR:3,PT:3,PTT:3 in the last 72 hours Other Labs: C3 Complement 12/16 - 66 (low) C4 Complement 12/16 - 4 (low) TSH 12/16 - 3.68 Free T4 -0.88 (borderline low) Microbiology: C diff 12/15 - neg Stool wbc + Stool cx OSH 12/10 - negative Shiga toxin 12/17 - pending Campylobacter antigen 12/17 - pending Stool Cx (looking for E.coli O157)- 12/16 HIV 12/16 pending - negative Pertinent radiology/diagnostic studies: KUB 12/15: Mild gaseous distention of the small bowel with a few air-fluid levels. + gas within the colon. The pattern is most consistent with a partial small bowel obstruction. No evidence of free subdiaphragmatic air. MRI 12/16 Normal Pathology: 12/17 Blood smear: Scistocytes are more than noted in the previous smear EGD 12/19 - Normal esophagus. - Gastric mucosal abnormality in the gastric body characterized by erythema/submucosal hemorrhage likely related to TTP. 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 Awaiting ADAMTS-13 lab. . Stool culture (including e coli O157:H7 pending). Clinical picture did not appear to be consistent with C. Diff and so metronidazole was stopped. The history really points to E. Coli O157 so reordered stool culture - also checking HIV as this could be a cause of HUS-TTP Trending plts and LDH as most sensitive markers of response. PLTs increased today and LDH has decreased. Will continue plasma exchange until plts >150. Her mental status is in light of her well functioning self 2 weeks earlier, decreasing as she has moments where she is unsure if she has responded to questions or will be silent when talked to. In terms of her DELVIS, her creatinine is stable today. 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 Her thrombocytopenia and hemolysis (schistocytes) qualify her for treatment plasmapheresis. Additionally her DELVIS and altered mental status are part of the HUS-TTP spectrum. However, our studies to date have not revealed a definitive etiology. - PLT count increased - ADAMTS-13 - f/u stool cx (including shiga toxin/E coli O157:H7) - daily plts and LDH - trend CBC, transfuse if necessary. No transfusions today -Low complement level -another blood smear to be sent -will wait until after plasma exchange to give vaccine # Mental Status -stable, but complaints from her normal baseline - diplopia & vertigo -daily neuro checks # DELVIS - Likely 2/2 TTP-HUS plus decreased intake - Cr. Mild Decreasing 2.19 (from 2.28) - Nephrology following - she is still clinically hypervolemic - +3kg over admission wt. But better than yesterday +4kg - she was given Lasix 40mg one time, repeating today # Gastric ulcer - abdomen stable -on PPi, plaetlets improving - 2 days of BMs #Hyperthyroidism/Graves -consulted Endo -stopping methimazole -TSH level -MPO-ANCA following for possible vasculitis # FEN - repleting K, mag, phos prn - hypokalemia - starting regular diet - Advancing diet to see if she can tolerate solids # Other - DVT ppx - SCDs. No thx anticoag given thrombocytopenia and anemia - GI ppx - nexium CODE STATUS: Full Code JOHN KIMBALL MD, PGY-1 12/19/2012 Team A Pager #[phone] * Jose Kaur RN - 12/18/2012 6:00 PM EDT Post endoscopy report called to [facility]. Returned to129 via stretcher. * Gianna Hdz OT - 12/18/2012 4:26 PM EDT Occupational Therapy Treatment Note Visit #: 2 Patient Dx: Anum Henriquez is a 52 y.o. female patient of Fabi Grimm MD, admitted on 12/13/2012 with abdominal pain and bloody diarrhea Code Status: Full Activity Orders: Up ad jas Precautions: fall, contact, bleeding, em, O2 Interval History: - PLTs increased for second day now 99 (from 58) - LDH decreasing(306 from 366) - Hb is 7.9, transfused 1U yesterday and Hb was 6.2 - I/Os -600ml, weight not available - Bowel Mov'ts no longer melanous, but last one was yesterday early PM -Creatinine high but stable again today Showered with nursing this morning, seated on shower chair. Able to perform most of washing up unassisted, sat in cc to brush hair. Nursing reports pt did have difficulty negotiating the step in/out of the shower. S: If I close one eye I only see one of you O: Patient seen for therapeutic activities with PT and demonstrated the following: Moderate edema in both hands, pt able to flex/extend fingers ?? Min assist x2 with walker sit to stand from cc ?? Static standing balance with BUE support on walker fair with contact guard ?? Min assist with walker, assist of second to monitor lines, take 6-8 steps to the bed ?? supervision sit to supine ?? O2 on 2L 97-98% Pain: reports left upper arm pain in bicep area Education: energy conservation, exercises, positioning of UEs on pillows while supine, use of eye patch for diplopia Staff Communication: Patient status, treatment, and mobility recommendations discussed with nursing/other staff. A: Pt sitting in cc, agreeable to working with therapy. Has several procedures scheduled for this afternoon. Still has myoclonus, and diplopia. May benefit from trial of eye patch. High fall risk dueto weakness, myoclonus, diplopia.. Pt will benefit from ongoing therapeutic interventions to achieve pt's and therapy goals Goals: To be achieved by December 24 1. Pt will sit EOB for 10 minutes for functional activities with set up. 2. Pt will be contact guard mobility to the bathroom with walker. 3. Pt will be contact guard sit<>stand transfers from bed, cc, commode, toilet. 4. Pt will sit in cc for one meal daily. 5. Pt will stand sink level for 2-3 light hygiene tasks with contact guard. Plan: Pt to be seen 2-4 x per week for therapy including Transfers, Assistive device/technique, ADL, Positioning, Functional Mobility, Activity pacing/Energy conservation, Balance, Recommendations and Discharge planning Eval Date: 12/17/2012 Total time spent with patient: 30 minutes Total timed interventions: 15 minutes for functional there ex Pager: [phone] GIANNA HDZ OT Occupational Therapy Rehabilitation Department * Devendrakelsi Betsy Kodi, PT - 12/18/2012 11:54 AM EDT Physical Therapy Treatment Note Visit #: 07/21 Patient profile: Pt. is a 52 y.o. female admitted on 12/13/[address] Bliss, Fabi Cantor MD w/ PMH of Graves on methimazole, transferred from Medicine with clinical picture c/w TTP-HUS in setting of 3-4 days bloody diarrhea. Now receiving plasma exchange. PMH: No past medical history on file. No past surgical history on file. 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 Pt demonstrated the following ?? MS: pleasant, appropriate, able to follow instructions approriately ?? Mob: sit- stand with min A of 1-2, transfer chair- bed with FWW and min A and verbal cues for LEplacement ?? Exs: instruction in LE ROM and strength exs in sitting, instruction in breathing ex ?? IS: 1200 ml ?? PsO2: on 2 L O2, briefly at 82% ( ? Contact), rechecked with pulse ox with O2 sats in upper 90s ?? Myoclonus present Pain: see above Education: Pt/family education ongoing reg safety and role of Therapy Staff Communication: Patient status, treatment, and mobility recommendations discussed with nursing/other staff. A: Pt pleasant and appropriate, presenting with myoclonus and overall weakness, remains at high risk to fall. Pt should use FWW with A of staff for transfers. Pt will benefit from ongoing therapeutic interventions to achieve therapy goals Physical Therapy Goals: To be achieved by 12-28-12 1. Pt. to demonstrate knowledge of precautions and weight bearing limitations during functional activities. 2. Pt. to demonstrate understanding of appropriate exercises. 3. Pt. to perform bed mobility with S . 4. Pt. to perform transfers with c.g 5. Pt. to ambulate 25 feet with or without device and c.g 6. Family or caregiver to demonstrate understanding of therapeutic interventions to support the care of the patient. Discharge Recommendations: deferred P: Cont per POC as outlined on initial eval. Total time spent with patient: 30 minutes Total timed interventions: 15 minutes Pager: [phone] BETSY FORMAN PT Physical Therapy Rehabilitation Department * Ankit Ohara MD - 12/18/2012 10:41 AM EDT Attending Addendum: I personally saw, examined and interviewed the patient. I agree with the history, physical, assessment and plan in the note by Dr Kimball. I have seen and examined the patient on rounds and I have discussed the management with the team. I have reviewed all pertinent laboratory and radiographic findings. I agree with the plan and have the following additional corrections and/or comments. She is Day 4 of plasma exchange Nurses report changes in mental status that are intermittent over the last 24 hrs. This AM, her MS is normal. She still notes vertigo and diploplia She rec'd 1 u RBCs yesterday Based on my review, I suspect she has TTP/HUS with possible GI blood loss. This is based on her presentation with change in mental status, hemolysis, thrombocytopenia. With Plasma exchange, her LDH and platelets have improved. Her mental status is clearly not back to normal nor is her renal fxn. Head MRI was normal. I recommend continuing with daily plasma exchange and look into possible GI bloodloss. Pt notes reddish stools yesterday but none today. She is undergoing colo this AM Her creat remains inc but stable - at 2.6 today (Nephrology is following along w/ us). Mild diuersis onglong Bloody Diarrhea - CDiff + at outside hospital but negative here. Melena continues. Will ask ID to weigh in again as source of the GI sx and cultures is not clear. Will stop cipro per renal recommendations. Graves - Will check TSH and consult endocrine as renal would like to hold the methimazole. ID - shigatoxin, stool culture and campylobacter pending. HIV negative. Time: 40 mins with the majority of time spent in coordination of care K Alannah PANTOJA Staff * Luis E Trotter MD - 12/18/2012 8:51 AM EDT [facility] INPATIENT FOLLOW UP PATIENT: Anum Henriquez : 1960 ROOM: [address] [place] [address] ID: 52 y.o. 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 Subjective: Feels better, abdominal pain has decreased, no N/V. MEDS: ??? furosemide 40 mg Intravenous Once ??? potassium chloride 40 mEq Oral BID ??? potassium chloride 20 mEq Intravenous Q2H ??? chlorhexidine 15 mL Oral BID ??? sodium chloride 0.9 % 5 mL Intravenous Q12H ??? esomeprazole 40 mg Oral Daily Or ??? esomeprazole 40 mg Intravenous Daily EXAM: Last value Range last 24 hrs Temperature Temp: 37.1 ??C (98.8 ??F) Temp: [36.4 ??C (97.5 ??F)-37.3 ??C (99.1 ??F)] Heart Rate Heart Rate: 82 Heart Rate: [74-97] Blood Pressure BP: 102/76 mmHg BP: (102-127)/(70-88) Respiratory Rate Resp: 18 Resp: [18-20] SpO2 SpO2: 95 % SpO2: [94 %-98 %] Art BP BP (Arterial Line): -- Wt Readings from Last 3 Encounters: 12/17/12 76.5 kg (168 lb 10.4 oz) Intake/Output Summary (Last 24 hours) at 12/18/12 0852 Last data filed at 12/18/12 0800 Gross per 24 hour Intake 666 ml Output 1575 ml Net -909 ml Gen: AAO x 3 in NAD ENT: moist mucous membranes Neck: no JVD Lungs: CTA b/l no rales Heart: S1/S2 normal, no murmurs, rubs, gallop Abd: +BS, mildly tender but less than before, non distended, no organomegaly G-U: em in place Extrem: edema in abdominal wall, back and extremities but less than before. Neuro: AAO x 3, some tremors are noted but do not affect distal extremities only. LABS: Lab Results Component Value Date WBC 7.7 12/18/2012 RBC 2.60* 12/18/2012 HGB 7.9* 12/18/2012 HCT 22.4* 12/18/2012 MCV 86.2 12/18/2012 MCH 30.4 12/18/2012 MCHC 35.3 12/18/2012 PLATELET 99* 12/18/2012 RDWCV 14.2 12/18/2012 Lab Results Component Value Date Sodium 140 12/18/2012 Potassium 4.2 12/18/2012 Chloride 104 12/18/2012 CO2 29 12/18/2012 BUN 41* 12/18/2012 Creatinine 2.28* 12/18/2012 Glucose Lvl 92 12/18/2012 Lab Results Component Value Date CALCIUM 8.1* 12/18/2012 Lab Results Component Value Date PHOS 4.4 12/18/2012 Smear noted to have more schistocytes than before KIANA pending Stool cultures pending Hepatitis C negative. IMPRESSION/ RECOMMENDATIONS: 52 yo female with microangiopathic hemolytic anemia/thrombocytopenia and non oliguric acute kidney injury having plasma exchange daily , currently without any laboratory of clinical indication of renal replacement therapy. [id number], expected to be back today Stool cultures pending, LDH still elevated, platelets still <150 noted but improving, creatinine seems to be stable for 2 days now and may represent that in the next couple of days it will start to decrease, if this is not the case and [id number] is negative will consider renal biopsy ANCA's, hepatitis C noted to be within normal limits. Renal dose of medications Avoid nephrotoxins Seen and Discussed with Dr. Sergo Gomes MD Nephrology Fellow Pager # [phone] Renal Attending: The patient was examined together with the renal fellow and I agree with the above note, feeling a little better but still has abdominal pain, also tremors, creatinine remains unchanged at a plateau, complement is low and KIANA is negative, albeit the result might be skewed by plasmapheresis * Jaleel Reynoso MD - 12/18/2012 8:37 AM EDT Transfusion Medicine Service Procedure Note Transfusion Medicine Attending Physician: Jaleel Reynoso MD Transfusion Medicine Resident/Fellow: Jay Toscano MD (PGY6 Hematology/Oncology Fellow) Date: 12/18/2012 Procedure Type: Therapeutic Plasma Exchange Number 5 of ongoing Indication / Diagnosis: TTP/HUS ASFA Category: I Grade: 1A Relevant History / Background: Mrs Henriquez (prefers Anum) is a 52 year old female with a past medical history of Graves disease (reportedly stable on methimazole for >10 years) who presented to [facility] 6 days ago with watery/bloody diarrhea and abdominal cramping and was subsequently admitted and started on fluids, cipro, and flagyl. Per Heme/Onc note, notable outside labs consist of an admission WBC of13.1 with 89% neutriphils, Hgb 14.5, Plts 151, fecal leukocytes, stool culture negative, negative for Shiga toxin, and 2 stool cultures negative for C Diff (12/10 and 12/12/12) with a third returning positive (12/13/12). She was [place] [facility] [place] after daily labs revealed a drop in platelets from 151 to 66, increase of Cr from 0.8 to 1.2, and elevated LDH at 1187 (all per OSH). [facility] labs confirmed thrombocytopenia at 46 (currently 44), increasing Creatinine (1.4 at [facility] admission, currently 1.74) LDH of 672, dropping hemoglobin (Per OSH, 14 at initial admit, 11.9 at [facility] admit, currently 10.8), and low haptoglobin (<10). INR and fibrinogen are normal. Additionally, a peripheral blood smear revealed thrombocytopenia and anemia with schistocytes, rare spherocytes c/w microangiopathic hemolytic anemia. 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 History since last visit: Mental status changes yesterday (lethargy, expressive aphasia) resolved and attributed to Benadryl.GI consult yesterday, considering upper endoscopy. Upon seeing her this AM she stated she continues to feel better this AM. Able to get up this AM andtake a shower. Had one small black stool this AM. No F/C. Still with intermittent (especially with movement) 8/10 epigastric and right sided abdominal pain. She denied any CP/SOB/F/C/N/V/AP/SWIFT/focal neuro symptoms. Noted a black stool this morning. Allergies: Erythromycin base Relevant Medications: Scheduled Meds: ??? furosemide 40 mg Intravenous Once ??? potassium chloride 40 mEq Oral BID ??? potassium chloride 20 mEq Intravenous Q2H ??? chlorhexidine 15 mL Oral BID ??? sodium chloride 0.9 % 5 mL Intravenous Q12H ??? esomeprazole 40 mg Oral Daily Or ??? esomeprazole 40 mg Intravenous Daily Continuous Infusions: PRN Meds:.HYDROmorphone, diphenhydrAMINE, acetaminophen, ondansetron, ondansetron, zolpidem, prochlorperazine, prochlorperazine, DISCONTD: HYDROmorphone Physical Exam: Constitutional: Well nourished, no evidence of distress. HEENT: Normocephalic, atraumatic. PERRL. EOMI. No scleral icterus. No mucosal ulcerations. No cervical lymphadenopathy. Respiratory: Lungs clear to auscultation bilaterally, no wheezing, rhonchi, rales. Cardiovascular: Normal rhythm, regular rate. No LE edema. Abd: Soft, normoactive bowel sounds; +RLQ and epigastric tenderness Musculoskeletal: Normal range of motion. Neuro: AAOx3, Cranial nerves grossly intact. Grossly non-focal exam Skin: Warm, dry. No rashes. Psychiatric: Thought content normal. Normal mood and affect. Current laboratory data: Recent Labs Basename 12/18/12 0425 12/17/12 1300 12/17/12 0400 12/16/12 0440 12/15/12 0350 WBC 7.7 6.9 6.7 6.4 6.3 HGB 7.9* 6.2* 7.0* 7.5* 9.2* HCT 22.4* 18.3* 19.7* 22.2* 25.6* PLATELET 99* 65* 58* 42* 41* NEUTROABS 5.75 5.12 5.16 4.69 4.35 Recent Labs Basename 12/18/12 0425 12/17/12 0400 12/16/12 0440 12/15/12 0350 12/14/12 0549 NA 140 141 139 139 138 K 4.2 3.3* 4.1 -- -- CL 104 108* 111* 113* 114* CO2 29 24 22 20* 19* BUN 41* 37* 33* 26* 18 CREATININE 2.28* 2.25* 2.29* 2.12* 1.74* Recent Labs Basename 12/18/12 0425 12/17/12 0400 12/16/12 0440 12/15/12 0350 12/14/12 0216 12/13/12 2200 AST -- -- 49* -- -- 30 ALT -- -- 21 -- -- 10 ALKPHOS -- -- 32* -- -- 29* BILITOT -- -- 0.8 -- -- 1.0 BILIDIR -- -- 0.2 -- -- 0.2 LDH 306* 366* 455* 417* 672* -- Recent Labs Basename 12/13/12 2200 INR 1.3* PT 16.5* PTT 27 FIBRINOGEN 425 Information about today's procedure A time out was called and the patient's identity was verified. Based on the physical exam and laboratory data, the patient qualified for TPE and the procedure was initiated. The procedure was performed by Julita Willis RN under my supervision. The procedure began at 1307 and was concluded at 1549. Volumes: Plasma volumes exchanged: 1.0 Total AC Used: 504mL Remove bamL Replaced: 3148mL Albumin, 0mL plasma Bolus: 0mL Rinseback: 156mL saline Plasma removed: 3302mL AC in remove bamL AC to patient: 33mL Fluid balance: +10mL In addition, the patient received infusion of 3g calcium gluconate diluted in 100 mL 0.9% NaCl throughout the procedure at 37-60 mL/hour to prevent hypocalcemia. Total volume administered was 135mL. Vital signs: Pre: BP 131/91, P 79, R 18, T 36.7 deg C Post: BP 151/89, P 66, R 18, T 37.0 deg C Complications noted (if any): At 1430 the patient complained of LUQ discomfort and nausea. She was given Zofran. VSS. Procedure paused and calcium checked (0.81mmol/L) so Calcium gluconate infusion increased to 60mL/hr. Symptoms improved and procedure resumed. At 1446 patient noted scalp itchiness and hives on scalp. Benadryl 50mg given at 1450 and patient subsequently sedated. Post-procedure iCa checked. Ref. Range 12/18/2012 14:35 12/18/2012 15:50 ICa Whole Blood Latest Range: 1.15-1.33 mmol/L 0.81 (CRIT) 1.03 (L) Assessment/Plan: Improving platelet count, LDH, stabilized kidney function. Hemoglobin up today post transfusion 12/17. Uncomplicated plasma exchange for TTP-HUS. Will plan to treat again tomorrow. F/u ADAMTS-13 level - should return later today. Results of ADAMTS-13 will guide future management. F/u Hgb GI w/u per GI team. JAY TOSCANO MD 12/18/2012 ATTENDING MD ATTESTATION: The apheresis procedure was performed under my supervision. I was present during critical portions of the procedure and available throughout. I personally interviewed and examined the patient and reviewed all clinical and laboratory data. I reviewed the note written by Dr. Toscano and agree with the findings, assessment and plan. The procedure today was complicated by symptoms of procedure related hypocalcemia which responded to decreasing the flow rate and increasing the calcium reinfusion rate. She also experienced hives and itching as she was not pretreated with Benadryl today due to sedation. The next scheduled procedure will be tomorrow. We will pre-treat with Benadryl and mange her calcium with an increased rate of replacement (60mL/hr). Transient hypocalcemia is a known treatment related complication due to the infused citrate used toanticoagulate whole blood at the time of donation. This citrate is expressed into the plasma duringcomponent manufacturing. This is typically treated symptomatically with calcium infusion. Hypocalcemia is expected to resolve upon completion of the procedure as the citrate is rapidly metabolized bythe liver. Ms. Henriquez is showing some signs of improvement in LDH and platelet count while her creatinine remains stable. We continue to await return of the ADAMTS- 13. We will treat again tomorrow. JALEEL REYNOSO MD 12/18/2012 * John Kimball - 12/18/2012 6:51 AM EDT Inpatient Hematology/Oncology/SCT Progress Note Patient info: Name: Anum Henriquez : 1960 PCP: BAKARI COSTELLO APRN PCP phone number: [phone] Date of Admission: 12/13/2012 ( Hospital Day 5 days ) Service: Hem/Onc Team B - Pager [phone] Responsible Attending:Ankit Ohara MD ID: Anum Henriquez is a 52 y.o. 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 Now receiving plasma exchange Day 4 (12/18). Hospital Problem List: Patient Active Problem List Diagnoses Code ??? Hemorrhagic colitis 558.9 ??? Thrombocytopenia 287.5 ??? Hyperthyroidism 242.90 ??? 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 24 Hour Events: - PLTs increased for second day now 99 (from 58) - LDH decreasing(306 from 366) - Hb is 7.9, transfused 1U yesterday and Hb was 6.2 - I/Os -600ml, weight weight not available - Bowel Mov'ts no longer melanous, but last one was yesterday early PM -Creatinine high but stable again today Subjective -abdominal pain improving -feels more mentally clear and alert -sensation of edema/swelling is improved -persisting vertigo (3 days) -Diplopia (3 days) Vitals: Last value Range last 24 hrs Temperature Temp: 37.1 ??C (98.8 ??F) Temp: [36.4 ??C (97.5 ??F)-37.3 ??C (99.1 ??F)] Heart Rate Heart Rate: 82 Heart Rate: [74-97] Blood Pressure BP: 102/76 mmHg BP: (102-127)/(70-88) Respiratory Rate Resp: 18 Resp: [18-20] SpO2 SpO2: 95 % SpO2: [94 %-98 %] Intake/Output Summary (Last 24 hours) at 12/18/12 1045 Last data filed at 12/18/12 0800 Gross per 24 hour Intake 666 ml Output 1575 ml Net -909 ml Patient Vitals for the past 168 hrs: Weight 12/17/12 0719 76.5 kg (168 lb 10.4 oz) 12/16/12 06 77.8 kg (171 lb 8.3 oz) 12/13/122021 73.6 kg (162 lb 4.1 oz) Admit wt:73.60 kg Change: +3kg Physical Exam: GEN: Thin but WDWN woman lying in bed, NAD, anxious-appearing. A&Ox3, interacting appropriately HEENT: PERRLA, EOMI, anicteric, exopthalmos, MMM, OP clear RESP: CTAB, no w/r/r CVS: RRR S1, S2; no murmurs, rubs, gallops Abd: Moderately distended but soft. Moderately tender to deep palpation diffusely. +BS. No rebound or guarding. No masses or HSM appreciated. EXT: Trace pitting edema lower legs bl, but legs feel tense. Upper LEs with tense edema equal bl. No calf tenderness or asymmetry. Skin: no lesions, no pitting, but skin feels tense Neuro: A&Ox3, Antimicrobials: none Medications: Scheduled Meds: ??? furosemide 40 mg Intravenous Once ??? potassium chloride 40 mEq Oral BID ??? potassium chloride 20 mEq Intravenous Q2H ??? chlorhexidine 15 mL Oral BID ??? sodium chloride 0.9 % 5 mL Intravenous Q12H ??? esomeprazole 40 mg Oral Daily Or ??? esomeprazole 40 mg Intravenous Daily Continuous Infusions: PRN Meds:.HYDROmorphone, diphenhydrAMINE, acetaminophen, ondansetron, ondansetron, zolpidem, prochlorperazine, prochlorperazine, DISCONTD: HYDROmorphone Labs: Recent Labs Basename 12/18/1242412/17/12 1300 12/17/12 0400 WBC 7.7 6.9 6.7 HGB 7.9* 6.2* 7.0* HCT 22.4* 18.3* 19.7* PLATELET 99* 65* 58* NEUTROABS 5.75 5.12 5.16 Recent Labs Basename 12/18/1242412/17/12 0400 12/16/12 0440 NA 140 141 139 K 4.2 3.3* 4.1 CL 104 108* 111* CO2 29 24 22 BUN 41* 37* 33* CREATININE 2.28* 2.25* 2.29* Recent Labs Basename 12/18/1242412/17/12 0400 12/16/12 0440 12/15/12 0350 12/13/12 2200 CALCIUM 8.1* 8.2* 8.1* -- -- MAGNESIUM 0.83 -- -- 0.72 0.55* PHOS 4.4 -- -- 3.1 1.4* Recent Labs Basename 12/18/1242412/17/12 0400 12/16/12 0440 12/13/12 2200 AST -- -- 49* 30 ALT -- -- 21 10 ALKPHOS -- -- 32* 29* BILITOT -- -- 0.8 1.0 BILIDIR -- -- 0.2 0.2 LDH 306* 366* 455* -- No results found for this basename: INR:3,PT:3,PTT:3 in the last 72 hours Other Labs: C3 Complement 12/16 - 66 (low) C4 Complement 7 - 4 (low) TSH 12/16 - 3.68 Free T4 -0.88 (borderline low) Microbiology: C diff 12/15 - neg Stool wbc + Stool cx OSH 12/10 - negative Shiga toxin 12/17 - pending Campylobacter antigen 12/17 - pending Stool Cx (looking for E.coli O157)- 12/16 HIV 12/16 pending - negative Pertinent radiology/diagnostic studies: KUB 12/15: Mild gaseous distention of the small bowel with a few air-fluid levels. + gas within the colon. The pattern is most consistent with a partial small bowel obstruction. No evidence of free subdiaphragmatic air. 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 Awaiting ADAMTS-13 lab. . Stool culture (including e coli O157:H7 pending). Clinical picture did not appear to be consistent with C. Diff and so metronidazole was stopped. The history really points to E. Coli O157 so reordered stool culture - also checking HIV as this could be a cause of HUS-TTP Trending plts and LDH as most sensitive markers of response. PLTs increased today and LDH has decreased. Will continue plasma exchange until plts >150. Her mental status is in light of her well functioning self 2 weeks earlier, decreasing as she has moments where she is unsure if she has responded to questions or will be silent when talked to. In terms of her DELVIS, her creatinine is stable today. 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 Her thrombocytopenia and hemolysis (schistocytes) qualify her for treatment plasmapheresis. Additionally her DELVIS and altered mental status are part of the HUS-TTP spectrum. However, our studies to date have not revealed a definitive etiology. - PLT count increased - f/u ADAMTS-13 - f/u stool cx (including shiga toxin/E coli O157:H7) - Daily plasma exchange until plts > 150 - 50mg IV benadryl pre-med with each plasma exchange per Transfusion Med for itching - daily plts and LDH - trend CBC, transfuse if necessary. No transfusions today -Low complement level -another blood smear to be sent -will wait until after plasma exchange to give vaccine # DELVIS - Likely 2/2 TTP-HUS plus decreased intake - Cr. Stable 2.25 - Nephrology following - she is still clinically hypervolemic - +3kg over admission wt. But better than yesterday +4kg - she was given Lasix 40mg one time, repeating today # Abdominal distention - KUB not overwhelming, but will follow serial abdominal exams closely with low threshold to repeatKUB - abdomen improved today - air-fluid levels could be 2/2 enterocolitis - 2 days of BMs - if worsening pain or vomiting, will insert NG tube #Melenaous stools/decreasing Hb - She reports another small black BM today, began yesterday -In discussion of plasma pheresis they believe that the decreasing Hb is likely related to a GI loss than it is a result of a hemolytic process #Hyperthyroidism/Graves -consulted Endo -stopping methimazole -TSH level -MPO-ANCA following for possible vasculitis # FEN - repleting K, mag, phos prn - hypokalemia - full liquid diet as tolerated. - Advancing diet to see if she can tolerate solids # Other - DVT ppx - SCDs. No thx anticoag given thrombocytopenia and anemia - GI ppx - nexium CODE STATUS: Full Code JOHN KIMBALL MD, PGY-1 12/18/2012 Team A Pager #[phone] * Luis E Trotter MD - 12/17/2012 5:34 PM EDT [facility] INPATIENT FOLLOW UP PATIENT: Anum Henriquez : 1960 ROOM: [address] [place] [address]- ID: 52 y.o. female admitted for diarrhea, microangiopathic hemolytic anemia and renal failure for consultation regarding DELVIS. Subjective: Feels better but still is having diarrhea (2 bowel movements in last 24 hrs up until this morning) MEDS: ??? furosemide 40 mg Intravenous Once ??? potassium chloride 40 mEq Oral BID ??? potassium chloride 20 mEq Intravenous Q2H ??? chlorhexidine 15 mL Oral BID ??? sodium chloride 0.9 % 5 mL Intravenous Q12H ??? esomeprazole 40 mg Oral Daily Or ??? esomeprazole 40 mg Intravenous Daily EXAM: Last value Range last 24 hrs Temperature Temp: 37.3 ??C (99.1 ??F) Temp: [36.4 ??C (97.5 ??F)-37.3 ??C (99.1 ??F)] Heart Rate Heart Rate: 81 Heart Rate: [75-93] Blood Pressure BP: 127/88 mmHg BP: (115-127)/(66-88) Respiratory Rate Resp: 20 Resp: [18-20] SpO2 SpO2: 97 % SpO2: [94 %-98 %] Art BP BP (Arterial Line): -- Wt Readings from Last 3 Encounters: 12/17/12 76.5 kg (168 lb 10.4 oz) Intake/Output Summary (Last 24 hours) at 12/17/12 1734 Last data filed at 12/17/12 1712 Gross per 24 hour Intake 1506 ml Output 2350 ml Net -844 ml Gen: AAO x 3 in NAD ENT: moist mucous membranes Neck: no JVD Lungs: CTA b/l no rales Heart: S1/S2 normal, no murmurs, rubs, gallop Abd: +BS, moderately tender, non distended, no organomegaly G-U: em in place Extrem: grossly edematous Neuro: AAO x 3, no flapping LABS: Lab Results Component Value Date WBC 6.9 12/17/2012 RBC 2.14* 12/17/2012 HGB 6.2* 12/17/2012 HCT 18.3* 12/17/2012 MCV 85.5 12/17/2012 MCH 29.0 12/17/2012 MCHC 33.9 12/17/2012 PLATELET 65* 12/17/2012 RDWCV 14.5* 12/17/2012 Lab Results Component Value Date Sodium 141 12/17/2012 Potassium 3.3* 12/17/2012 Chloride 108* 12/17/2012 CO2 24 12/17/2012 BUN 37* 12/17/2012 Creatinine 2.25* 12/17/2012 Glucose Lvl 105 12/17/2012 Lab Results Component Value Date CALCIUM 8.2* 12/17/2012 Lab Results Component Value Date PHOS 3.1 12/15/2012 IMPRESSION/ RECOMMENDATIONS: 52 yo female with microangiopathic hemolytic anemia/thrombocytopenia and non oliguric acute kidney injury s/p plasma exchange x4, currently without any laboratory of clinical indication of renal replacement therapy. [id number] and stool cultures pending LDH still elevated, platelets still <150 noted but improving, creatinine seems to be stable now and may represent that in the next couple of days it will start to decrease, if this is not the casewill consider renal biopsy. Other causes of low complement include SLE (send KIANA) and cryoglobulins, cosider checking cryoglobulins and hepatitis C. ANCA's noted to be within normal limits. Replete K and check magnesium due to urinary losses secondary to lasix Renal dose of medications Avoid nephrotoxins Seen and Discussed with Dr. Sergo Gomes MD Nephrology Fellow Pager # Renal Attending: The patient was examined together with the renal fellow and I agree with the above note, the patient is feeling better with less abdominal pain, has passed small amounts of stool, renal function seems to improve as creatinine is at a plateau * Mary Jane Silva, LD - 12/17/2012 2:47 PM EDT Nutrition Progress Note: S: Per pt: I have just been having water and ice chips. Appetite: poor Chewing/Swallowing: No issues per pt N/V: No issues per pt Bowels: last BM was last night (12/16) per pt. Pt reports diarrhea O: Patient Active Problem List Diagnoses Code ??? Hemorrhagic colitis 558.9 ??? Thrombocytopenia 287.5 ??? Hyperthyroidism 242.90 ??? 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 Diet: Regular Height: 170.2 cm Admit Weight: 73.6 kg BMI: 25.5 Labs: K+: 3.3, BUN: 37, Creat: 2.25, Ca: 8.2 Medications: Lasix, KCL, Nexium, Compazine A: RD consulted for pt with poor po intake. Diet has been advanced to regular, but pt has not consumed any meals yet. She was on full liquids this morning and consumed only water and ice chips. Per pt friend, she has had only ice chips and water since admission (4 days ago). Pt reports not having any appetite and that she continues to have issues with diarrhea. Low fiber, low lactose food choices reviewed. Pt agrees to yogurt and fruit for lunch today. Recommend monitoring po over the next 24 hours now that diet has been advanced. She has essentially been NPO x 4 days. If po remains poor overthe next 24 - 48 hours, recommend alternative means of nutrition support if consistent with goals of care. P: 1. Monitor po over the next 24 hours. Consider alternative means of nutrition support if consistent with goal of care. 2. Low fiber, low lactose food choices reviewed. 3. Monitor weight. 4. Nutrition to follow throughout hospital stay. * Jaleel Reynoso MD - 12/17/2012 10:20 AM EDT Transfusion Medicine Service Procedure Note Transfusion Medicine Attending Physician: JALEEL REYNOSO MD Transfusion Medicine Resident/Fellow: none Date: 12/17/2012 Procedure Type: Therapeutic Plasma Exchange Number 4 of ongoing Indication / Diagnosis: TTP/HUS ASFA Category: I Grade: 1A Relevant History / Background: Mrs Henriquez (prefers Anum) is a 52 year old female with a past medical history of Graves disease (reportedly stable on methimazole for >10 years) who presented to [facility] 6 days ago with watery/bloody diarrhea and abdominal cramping and was subsequently admitted and started on fluids, cipro, and flagyl. Per Heme/Onc note, notable outside labs consist of an admission WBC of13.1 with 89% neutriphils, Hgb 14.5, Plts 151, fecal leukocytes, stool culture negative, negative for Shiga toxin, and 2 stool cultures negative for C Diff (12/10 and 12/12/12) with a third returning positive (12/13/12). She was [place] [facility] [place] after daily labs revealed a drop in platelets from 151 to 66, increase of Cr from 0.8 to 1.2, and elevated LDH at 1187 (all per OSH). [facility] labs confirmed thrombocytopenia at 46 (currently 44), increasing Creatinine (1.4 at [facility] admission, currently 1.74) LDH of 672, dropping hemoglobin (Per OSH, 14 at initial admit, 11.9 at [facility] admit, currently 10.8), and low haptoglobin (<10). INR and fibrinogen are normal. Additionally, a peripheral blood smear revealed thrombocytopenia and anemia with schistocytes, rare spherocytes c/w microangiopathic hemolytic anemia. 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 History since last visit: Hemoglobin continues to decline, renal function stable, platelets slightly increased today, LDH continues to improve. She is distinctly more confused today, unable to respond to questions. Her cousinis at the bedside and expresses concern that this is not her usual behavior. She responds to commands and can nod to indicate that she is hearing you but is unable to verbalize responses to direct questions. Allergies: Erythromycin base Relevant Medications: ??? furosemide 40 mg Intravenous Once ??? chlorhexidine 15 mL Oral BID ??? sodium chloride 0.9 % 5 mL Intravenous Q12H ??? esomeprazole 40 mg Oral Daily Or ??? esomeprazole 40 mg Intravenous Daily ??? DISCONTD: methimazole 5 mg Oral Daily ??? DISCONTD: metroNIDAZOLE 500 mg Intravenous Q8H KATIE ??? DISCONTD: ciprofloxacin 200 mg Intravenous Q12H Physical Exam: GENERAL: Awake, unable to respond verbally to questions, moves in response to commands CARDIAC: RRR, no murmurs LUNGS: CTAB in anterior becker ABDOMEN: Diffusely mildly tender, soft, + bowel sounds EXTREMITIES: 1+ pitting edema in bilateral thighs and ankles (sock-line imprint). SKIN: Warm and dry, no rashes or lesions ACCESS: Non-tunneled pheresis catheter, RIJ Current laboratory data: Recent Labs Basename 12/17/12 0400 12/16/12 0440 12/15/12 0350 12/14/12 0549 12/13/12 2200 WBC 6.7 6.4 6.3 8.3 8.7 HGB 7.0* 7.5* 9.2* 10.8* 11.9 HCT 19.7* 22.2* 25.6* 31.8* 34.4 PLATELET 58* 42* 41* 44* 46* NEUTROABS 5.16 4.69 4.35 5.70 -- Recent Labs Basename 12/17/12 0400 12/16/12 0440 12/15/12 0350 12/14/12 0549 12/13/12 2200 NA 141 139 139 138 138 K 3.3* 4.1 3.2* -- -- CL 108* 111* 113* 114* 113* CO2 24 22 20* 19* 18* BUN 37* 33* 26* 18 14 CREATININE 2.25* 2.29* 2.12* 1.74* 1.45* Recent Labs Basename 12/17/12 0400 12/16/12 0440 12/15/12 0350 12/14/12 0216 12/13/12 2200 AST -- 49* -- -- 30 ALT -- 21 -- -- 10 ALKPHOS -- 32* -- -- 29* BILITOT -- 0.8 -- -- 1.0 BILIDIR -- 0.2 -- -- 0.2 LDH 366* 455* 417* 672* Not Perf Recent Labs Basename 12/13/12 2200 INR 1.3* PT 16.5* PTT 27 FIBRINOGEN 425 Information about today's procedure A time out was called and the patient's identity was verified. Based on the physical exam and laboratory data, the patient qualified for TPE and the procedure was initiated. The procedure was performed by Janice Trujillo RN under my supervision. The procedure began at 907 and was concluded at 1120. Volumes: Plasma volume exchanged: 1.0 Total AC Used: 498 mL Remove ba mL Replaced: 0 mL Albumin, 3267 mL plasma Bolus: 0 mL Rinseback: 156 mL saline Plasma removed: 3412 mL AC in remove ba mL AC to patient: 24 mL Fluid balance: +9 mL In addition, the patient received infusion of 3g calcium gluconate diluted in 100 mL 0.9% NaCl throughout the procedure at 37 mL/hour to prevent hypocalcemia. Total volume administered was 83 mL. Vital signs: Pre: BP123/83, P77, R18, T36.4 Post: BP115/80, P81, R18, T36.5 Complications noted (if any): The procedure was tolerated well and was completed without complications. Assessment/Plan: Uncomplicated plasma exchange for TTP-HUS. Initial exam concerning for expressive aphasia but clinical team reports that this has since resolved and is being attributed to the Benadryl that she had just received pre-treatment. The ADAMTS-13 level drawn on Sunday evening did not get sent out to [place] until yesterday evening. Results will not likely return until tomorrow. Labs are currently stableor improving with daily plasma exchange (renal function stable, platelets and LDH slightly improved). Results of ADAMTS-13 to guide future management but at this time treating for presumed TTP-HUS. No obvious source of infection to explain bloody diarrhea at this time, cultures are pending. Continues to drop hemoglobin with no evidence of intravascular hemolytic process (plasma is yellow and clear) and no evidence for extravascular clearance (bilirubin normal), attributed to ongoing losses in stool. Will plan to treat again tomorrow. JALEEL REYNOSO MD 12/17/2012 * Fabi Bliss MD - 12/17/2012 7:15 AM EDT Inpatient Hematology/Oncology/SCT Progress Note Patient info: Name: Anum Henriquez : 1960 PCP: BAKARI COSTELLO APRN PCP phone number: [phone] Date of Admission: 12/13/2012 ( Hospital Day 4 days ) Service: Hem/Onc Team B - Pager [phone] Responsible Attending:Fabi Bliss MD ID: Anum Henriquez is a 52 y.o. 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 Now receiving plasma exchange. Hospital Problem List: Patient Active Problem List Diagnoses Code ??? Hemorrhagic colitis 558.9 ??? Thrombocytopenia 287.5 ??? Hyperthyroidism 242.90 ??? 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 24 Hour Events: - PLTs increased 58 from 42 - LDH decreasing(366 from 455) - abdominal pain stable from yesterday - Hb is 7.0, transfuse 1Unit - I/Os matched yesterday, but weight is down 1kg - net +3kg: consider another lasix - Bowel Mov'ts continue to be black but was small this AM - concerns about her urine output with her DELVIS - only 761ml out yesterday (2000ml in) Subjective -persisting vertigo (2 days) -Diplopia (2 days) Vitals: Last value Range last 24 hrs Temperature Temp: 37 ??C (98.6 ??F) Temp: [36.5 ??C (97.7 ??F)-37.1 ??C (98.8 ??F)] Heart Rate Heart Rate: 80 Heart Rate: [80-95] Blood Pressure BP: 118/66 mmHg BP: (113-132)/(66-88) Respiratory Rate Resp: 18 Resp: [18-20] SpO2 SpO2: 96 % SpO2: [95 %-98 %] Intake/Output Summary (Last 24 hours) at 12/17/12 0750 Last data filed at 12/17/12 0400 Gross per 24 hour Intake 1418 ml Output 1500 ml Net -82 ml Patient Vitals for the past 168 hrs: Weight 12/17/12 0719 76.5 kg (168 lb 10.4 oz) 12/16/12 0610 77.8 kg (171 lb 8.3 oz) 12/13/122021 73.6 kg (162 lb 4.1 oz) Admit wt:73.60 kg Change: +3kg Physical Exam: GEN: Thin but WDWN woman lying in bed, NAD, anxious-appearing. A&Ox3, interacting appropriately HEENT: PERRLA, EOMI, anicteric, exopthalmos, MMM, OP clear RESP: CTAB, no w/r/r Abd: Moderately distended but soft. Moderately tender to deep palpation diffusely. Hypoactive BS. No rebound or guarding. No masses or HSM appreciated. EXT: Trace pitting edema lower legs bl, but legs feel tense. Upper LEs with tense edema equal bl. No calf tenderness or asymmetry. Skin: no lesions, no pitting, but skin feels tense Neuro: A&Ox3, Antimicrobials: Metronidazole Cirpofloxacin Medications: Scheduled Meds: ??? furosemide 40 mg Intravenous Once ??? chlorhexidine 15 mL Oral BID ??? sodium chloride 0.9 % 5 mL Intravenous Q12H ??? esomeprazole 40 mg Oral Daily Or ??? esomeprazole 40 mg Intravenous Daily ??? DISCONTD: methimazole 5 mg Oral Daily ??? DISCONTD: metroNIDAZOLE 500 mg Intravenous Q8H KATIE ??? DISCONTD: ciprofloxacin 200 mg Intravenous Q12H Continuous Infusions: ??? DISCONTD: sodium chloride 0.9% Stopped (12/16/12 1103) PRN Meds:.LORazepam, diphenhydrAMINE, acetaminophen, ondansetron, ondansetron, zolpidem, HYDROmorphone, prochlorperazine, prochlorperazine Labs: Recent Labs Basename 12/17/1239912/16/1243912/15/12 035 WBC 6.7 6.4 6.3 HGB 7.0* 7.5* 9.2* HCT 19.7* 22.2* 25.6* PLATELET 58* 42* 41* NEUTROABS 5.16 4.69 4.35 Recent Labs Basename 12/17/1239912/16/1243912/15/12 035 NA 141 139 139 K 3.3* 4.1 3.2* CL 108* 111* 113* CO2 24 22 20* BUN 37* 33* 26* CREATININE 2.25* 2.29* 2.12* Recent Labs Basename 12/17/1239912/16/1243912/15/1234912/13/12 2200 CALCIUM 8.2* 8.1* 7.9* -- MAGNESIUM -- -- 0.72 0.55* PHOS -- -- 3.1 1.4* Recent Labs Basename 12/17/1239912/16/1243912/15/1234912/13/12 2200 AST -- 49* -- 30 ALT -- 21 -- 10 ALKPHOS -- 32* -- 29* BILITOT -- 0.8 -- 1.0 BILIDIR -- 0.2 -- 0.2 LDH 366* 455* 417* -- No results found for this basename: INR:3,PT:3,PTT:3 in the last 72 hours Other Labs: C3 Complement 7/8 - 66 (low) C4 Complement 7/8 - 4 (low) TSH 7/8 - 3.68 Free T4 -0.88 (borderline low) Microbiology: C diff 12/15 - neg Stool wbc + Stool cx OSH 12/10 - negative Shiga toxin 12/17 - pending Campylobacter antigen 12/17 - pending Stool Cx (looking for E.coli O157)- 12/16 HIV 12/16 pending - negative Pertinent radiology/diagnostic studies: KUB 12/15: Mild gaseous distention of the small bowel with a few air-fluid levels. + gas within the colon. The pattern is most consistent with a partial small bowel obstruction. No evidence of free subdiaphragmatic air. MRI 12/16 Normal ASSESSMENT/PLAN: 52F w/ h/o Graves presents w/ 3-4 d acute onset abd pain, bloody diarrhea, n/v, anemia, thrombocytopenia, schistocytes, INR/PTT normal, SEN negative = clinical dx HUS-TTP. Awaiting ADAMTS-13 lab. . Stool culture (including e coli O157:H7 pending). Clinical picture did not appear to be consistent with C. Diff and so metronidazole was stopped. The history really points to E. Coli O157 so reordered stool culture - also checking HIV as this could be a cause of HUS-TTP Trending plts and LDH as most sensitive markers of response. PLTs increased today and LDH has decreased. Will continue plasma exchange until plts >150. Her mental status is in light of her well functioning self 2 weeks earlier, decreasing as she has moments where she is unsure if she has responded to questions or will be silent when talked to. In terms of her DELVIS, her creatinine is stable today. 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 Her thrombocytopenia and hemolysis (schistocytes) qualify her for treatment plasmapheresis. Additionally her DELVIS and altered mental status are part of the HUS-TTP spectrum. However, our studies to date have not revealed a definitive etiology. - PLT count increased - f/u ADAMTS-13 - f/u stool cx (including shiga toxin/E coli O157:H7) - Daily plasma exchange until plts > 150 - 50mg IV benadryl pre-med with each plasma exchange per Transfusion Med for itching - daily plts and LDH - trend CBC, transfuse if necessary. No transfusions today -Low complement level -another blood smear to be sent -will wait until after plasma exchange to give vaccine # DELVIS - Likely 2/2 TTP-HUS plus decreased intake - Cr. Stable 2.25 - Nephrology following - she is still clinically hypervolemic - +3kg over admission wt. But better than yesterday +4kg - she was given Lasix 40mg one time, repeating today # Abdominal distention - KUB not overwhelming, but will follow serial abdominal exams closely with low threshold to repeatKUB - abdomen improved today - air-fluid levels could be 2/2 enterocolitis - 2 days of BMs - if worsening pain or vomiting, will insert NG tube #Melenaous stools/decreasing Hb - She reports another small black BM today, began yesterday -In discussion of plasma pheresis they believe that the decreasing Hb is likely related to a GI loss than it is a result of a hemolytic process #Hyperthyroidism/Graves -consulted Endo -stopping methimazole -TSH level -MPO-ANCA following for possible vasculitis # FEN - repleting K, mag, phos prn - hypokalemia - full liquid diet as tolerated. Make NPO if abd pain/distention worsens # Other - DVT ppx - SCDs. No thx anticoag given thrombocytopenia and anemia - GI ppx - nexium CODE STATUS: Full Code JOHN KIMBALL MD, PGY-1 12/17/2012 Team A Pager #[phone]+++++++++++++++++++++++++++++++++++++++++++++++++++++++++++++++ Attending Addendum: I personally saw, examined and interviewed the patient. I agree with the history, physical, assessment and plan in the note above. I have seen and examined the patient on rounds and I have discussed the management with the team. I have reviewed all pertinent laboratory and radiographic findings. I a gree with the plan and have the following additional corrections and/or comments. Bloody Diarrhea - CDiff + at outside hospital but negative here. Melena continues. Will ask ID to weigh in again as source of the GI sx and cultures is not clear. Will stop cipro per renal recommendations. TTP-HUS - she describes some dysmetria today. Concern for progressive neuro symptoms. No clear response to plasma exchange to date (LDH up a bit and plt are stable). May be atypical diarrhea TTP-HUS which does not respond to plasma exchange. H/H stable. Renal - Creat stabilized. Volume up. Appreciate nephrology input. Edema - tense edema throughout. IVF stopped. Will give IV lasix again today. Graves - Will check TSH and consult endocrine as renal would like to hold the methimazole. Anemia - most likely a small component from hemolysis but likely more from GI blood loss. Very concerning that her MS has not improved. + vertigo and diploplia. MRI from yesterday is negative. 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 [id number] pending - should be back today. 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 ID - shigatoxin, stool culture and campylobacter pending. HIV negative. Will consult GI for any other ideas on the bloody diarrhea - does not seem like typical CDiff. * Luis E Trotter MD - 12/16/2012 12:45 PM EDT [facility] INPATIENT FOLLOW UP PATIENT: Anum Henriquez : 1960 ROOM: [address] [place] [address]- ID: 52 y.o. female admitted for acute diarreha found to have TTP for consultation regarding DELVIS. Subjective: Patient feels better although diarrhea has recurred. Today she has had 2 loose bowel movements and still has abdominal pain. MEDS: ??? potassium chloride 20 mEq Intravenous Q1H ??? magnesium sulfate 2 g Intravenous Once ? ? DISCONTD: potassium & sodium phosphates 1.5 g Oral 4 Times Daily WC & HS ??? methimazole 5 mg Oral Daily ??? chlorhexidine 15 mL Oral BID ??? sodium chloride 0.9 % 5 mL Intravenous Q12H ??? esomeprazole 40 mg Oral Daily Or ??? esomeprazole 40 mg Intravenous Daily ??? metroNIDAZOLE 500 mg Intravenous Q8H KATIE ??? DISCONTD: ciprofloxacin 200 mg Intravenous Q12H EXAM: Last value Range last 24 hrs Temperature Temp: 37 ??C (98.6 ??F) Temp: [36.4 ??C (97.5 ??F)-37.4 ??C (99.3 ??F)] Heart Rate Heart Rate: 91 Heart Rate: [81-97] Blood Pressure BP: 119/85 mmHg BP: (113-128)/(66-88) Respiratory Rate Resp: 18 Resp: [18] SpO2 SpO2: 98 % SpO2: [92 %-98 %] Art BP BP (Arterial Line): -- Wt Readings from Last 3 Encounters: 12/16/12 77.8 kg (171 lb 8.3 oz) Intake/Output Summary (Last 24 hours) at 12/16/12 1245 Last data filed at 12/16/12 1200 Gross per 24 hour Intake 2655 ml Output 960 ml Net 1695 ml I/O on 12/15: 2865/760, net: +2105 Gen: AAO x 3 in NAD ENT: moist mucous membranes Neck: JVD Lungs: CTA b/l no rales Heart: S1/S2 normal, no murmurs, rubs, gallop Abd: +BS, tender but no rebound or guarding. G-U: em in place Extrem: +edema up to thighs and in lower back as well Neuro: AAO x 3, no flapping LABS: Lab Results Component Value Date WBC 6.4 12/16/2012 RBC 2.63* 12/16/2012 HGB 7.5* 12/16/2012 HCT 22.2* 12/16/2012 MCV 84.4 12/16/2012 MCH 28.5 12/16/2012 MCHC 33.8 12/16/2012 PLATELET 42* 12/16/2012 RDWCV 14.4 12/16/2012 Lab Results Component Value Date Sodium 139 12/16/2012 Potassium 4.1 12/16/2012 Chloride 111* 12/16/2012 CO2 22 12/16/2012 BUN 33* 12/16/2012 Creatinine 2.29* 12/16/2012 Glucose Lvl 110 12/16/2012 Lab Results Component Value Date CALCIUM 8.1* 12/16/2012 Lab Results Component Value Date PHOS 3.1 12/15/2012 IMPRESSION/ RECOMMENDATIONS: 52 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 [id number], ANCAs and stool cultures pending LDH still elevated, platelets still <150, will continue to need plasma exchange for now Creatinine is still increasing daily despite therapy but no indication for dialysis Renal dose of medications Avoid nephrotoxins Consider an alternative treatment for hyperthyroidism as methimazole can also cause TTP If no improvement will consider renal biopsy Seen and Discussed with Dr. Sergo Gomes MD Nephrology Fellow Pager # [phone] Renal Attending: The patient was examined together with the renal fellow and I agree with the above note with the following addition: the patient has low complement levels in particular C4 is low which raises the possibility of autoimmune hemolytic anemia or SLE, recommend to send ANAs as well, would stop the Methimazole as well * Dez Bishop RN - 12/16/2012 10:35 AM EDT Office of Care Management (OCM) / Clinical Hvac Manager (CRC) Initial Assessment Care reviewed with hematology/blood and marrow transplant team and at interdisciplinary discharge rounds. Reviewed record and interviewed patient. Introduced/reviewed CRC role and services accepted. Reason for hospitalization: 52 y.o. w/ PMH of Graves on methimazole, transferred from Medicine with clinical picture c/w TTP-HUS in setting of 3-4 days bloody diarrhea. Patient Active Problem List Diagnoses Code ??? Hemorrhagic colitis 558.9 ??? Thrombocytopenia 287.5 ??? Hyperthyroidism 242.90 ??? 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 methimazole (TAPAZOLE) 10 mg tablet take 1/2 tablet by mouth once daily 45 tablet 3 ??? aspirin 81 mg EC tablet ??? Fadctbfrbki-Tklpjokuz-Jwp C-Mn 500-400 mg Cap ??? Galena-3 Fatty Acids-Vitamin E (OMEGA-3 FISH OIL) 1,000-5 mg-unit Cap ??? CALCIUM ORAL Allergies Allergen Reactions ??? Erythromycin Base Subjective: States she feels a little confused today. Complains of a headache. F Previous functional status: Patient was independent with mobility/ambulation, transfers, ADL's, IADL's. 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 Current functional status: Is ambulating independently in room> [x} No Rehab referral: [x} Yes Home set up: Single story home with no steps to enter. Family and social supports: with grown son and daughter that live locally. Has lived in [facility] all of her life. Mother and father are in a assisted close by. Many friends and well connected in the community. Extended Emergency Contact Information Primary Emergency Contact: Liu Henriquez Relation: Durable Power of Library Clerk [employer] Secondary Emergency Contact: Liu Roberts Relation: Sibling Father: Venita Vora Advance directives: None on file. States she has a copy at home. Code status: Full Code Insurance: Commercial [employer] Financial Issues: [x} No Referral to financial services: [x} No Preferred Pharmacy: [address] outpatient pharmacy. DME: No Home Health Agency: [x} No IV Access: Double lumen pheresis catheter and PICC Home Infusion: No APPLICATION INTEGRATION SPECIALIST Referral: Rebecca Tinoco APPLICATION INTEGRATION SPECIALIST Referral indicated: [x} No Primary Care Physician: BAKARI COSTELLO APRN [phone] Primary [facility] Promotions Officer: Admitted on Dr. Bilss's service. Referring Promotions Officer: N/A Potential discharge needs: Undetermined Anticipated barriers to discharge: Undetermined Transportation at discharge: Spouse or family member. Plan: CRC will continue to monitor progress, follow for continuity of care and assist with discharge planning. No future appointments. Gorge Bishop RN Clinical Hvac Manager Office of Care Management Pager [phone] * Jaleel Reynoso MD - 12/16/2012 9:06 AM EDT Transfusion Medicine Service Procedure Note Transfusion Medicine Attending Physician: Dr Jaleel Reynoso Transfusion Medicine Resident/Fellow: Jay Toscano MD (PGY6 Hematology/Oncology Fellow) Date: 12/16/2012 Procedure Type: Therapeutic Plasma Exchange Number 3 of ongoing Indication / Diagnosis: TTP/HUS ASFA Category: I Grade: 1A Relevant History / Background: Mrs Henriquez (prefers Anum) is a 52 year old female with a past medical history of Graves disease (reportedly stable on methimazole for >10 years) who presented to [facility] 6 days ago with watery/bloody diarrhea and abdominal cramping and was subsequently admitted and started on fluids, cipro, and flagyl. Per Heme/Onc note, notable outside labs consist of an admission WBC of13.1 with 89% neutriphils, Hgb 14.5, Plts 151, fecal leukocytes, stool culture negative, negative for Shiga toxin, and 2 stool cultures negative for C Diff (12/10 and 12/12/12) with a third returning positive (12/13/12). She was transferred to [facility] [place] 12/13/12 after daily labs revealed a drop in platelets from 151 to 66, increase of Cr from 0.8 to 1.2, and elevated LDH at 1187 (all per OSH). [facility] labs confirmed thrombocytopenia at 46 (currently 44), increasing Creatinine (1.4 at [facility] admission, currently 1.74) LDH of 672, dropping hemoglobin (Per OSH, 14 at initial admit, 11.9 at [facility] admit, currently 10.8), and low haptoglobin (<10). INR and fibrinogen are normal. Additionally, a peripheral blood smear revealed thrombocytopenia and anemia with schistocytes, rare spherocytes c/w microangiopathic hemolytic anemia. 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 History since last visit: Tolerated TPE yesterday okay other than some itching - resolved with Benadryl. Feeling okay. Abdominal pain a bit better. KUB yesterday c/w possible partial SBO. Got Dilaudid this AM. Had black BM, per her, this AM ~830. Allergies: Erythromycin base Relevant Medications: Scheduled Meds: ??? diphenhydrAMINE 25 mg Intravenous Once ??? potassium chloride 20 mEq Intravenous Q1H ??? magnesium sulfate 2 g Intravenous Once ? ? DISCONTD: potassium & sodium phosphates 1.5 g Oral 4 Times Daily WC & HS ??? methimazole 5 mg Oral Daily ??? chlorhexidine 15 mL Oral BID ??? sodium chloride 0.9 % 5 mL Intravenous Q12H ??? esomeprazole 40 mg Oral Daily Or ??? esomeprazole 40 mg Intravenous Daily ??? metroNIDAZOLE 500 mg Intravenous Q8H KATIE ??? ciprofloxacin 200 mg Intravenous Q12H Continuous Infusions: ??? sodium chloride 0.9% 115 mL/hr (12/15/12 2231) PRN Meds:.diphenhydrAMINE, DISCONTD: diphenhydrAMINE, acetaminophen, ondansetron, ondansetron, zolpidem, HYDROmorphone, prochlorperazine, prochlorperazine Physical Exam: Last value Range last 24 hrs Temperature Temp: 36.8 ??C (98.2 ??F) Temp: [36.4 ??C (97.5 ??F)-37.4 ??C (99.3 ??F)] Heart Rate Heart Rate: 81 Heart Rate: [81-97] Blood Pressure BP: 113/81 mmHg BP: (113-123)/(66-81) Respiratory Rate Resp: 18 Resp: [18] SpO2 SpO2: 97 % SpO2: [92 %-100 %] Intake/Output Summary (Last 24 hours) at 12/16/12 1005 Last data filed at 12/16/12 0436 Gross per 24 hour Intake 2865 ml Output 760 ml Net 2105 ml Patient Vitals for the past 168 hrs: Weight 12/16/12 0610 77.8 kg (171 lb 8.3 oz) 12/13/122021 73.6 kg (162 lb 4.1 oz) GENERAL: Conversant but sometimes slow to respond, pleasant, slightly anxious but no evident distress CARDIAC: RRR, no murmurs LUNGS: CTAB with decreased flow through lower lobes due to position and effort ABDOMEN: Diffusely mildly tender, soft, + bowel sounds EXTREMITIES: Pt reports increase in bilateral leg edema, although exam proves perhaps only slight increase in 1+ pitting edema in bilateral thighs and ankles (sock-line imprint). Non-tender, slightlywarm. Normal peripheral pulses. SKIN: Warm and dry, no rashes or lesions NEURO: Grossly intact ACCESS: Non-tunneled pheresis catheter, LUIS A Current laboratory data: Recent Labs Basename 12/16/12 0440 12/15/12 0350 12/14/12 0549 12/13/12 2200 WBC 6.4 6.3 8.3 8.7 HGB 7.5* 9.2* 10.8* 11.9 HCT 22.2* 25.6* 31.8* 34.4 PLATELET 42* 41* 44* 46* NEUTROABS 4.69 4.35 5.70 -- Recent Labs Basename 12/16/120 12/15/12 0350 12/14/12 0549 12/13/12 2200 NA 139 139 138 138 K 4.1 3.2* 3.7 -- CL 111* 113* 114* 113* CO2 22 20* 19* 18* BUN 33* 26* 18 14 CREATININE 2.29* 2.12* 1.74* 1.45* Recent Labs Basename 12/16/120 12/15/12 0350 12/14/12 0216 12/13/12 2200 AST 49* -- -- 30 ALT 21 -- -- 10 ALKPHOS 32* -- -- 29* BILITOT 0.8 -- -- 1.0 BILIDIR 0.2 -- -- 0.2 LDH 455* 417* 672* Not Perf Recent Labs Basename 12/13/12 2200 INR 1.3* PT 16.5* PTT 27 FIBRINOGEN 425 Information about today's procedure A time out was called and the patient's identity was verified. Based on the physical exam and laboratory data, the patient qualified for TPE and the procedure was initiated. The procedure was performed by Janice Awan RN under the supervision of Jaleel Reynoso MD. The procedure began at 0928 and was concluded at 1151. Volumes: Plasma volume exchanged: 1.0 Total AC Used: 512 mL Remove ba mL Replaced: 0 mL Albumin, 3103 mL plasma Bolus: 0 mL Rinseback: 154 mL saline Plasma removed: 3270 mL AC in remove ba mL AC to patient: 46 mL Fluid balance: +8 mL In addition, the patient received infusion of 3g calcium gluconate diluted in 100 mL 0.9% NaCl throughout the procedure at 37 mL/hour to prevent hypocalcemia. Total volume administered was 85.3 mL. Vital signs: Pre-procedure: BP 128/88, HR 89, RR 18, T 36.5 Post-procedure: BP 119/85, HR 91, RR 18, T 37.0 Complications noted (if any): The procedure was tolerated well and was completed without complications. 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 Interestingly, her platelets are not rising with TPE yet. LDH decreased and now up a little today. Bili not elevated. DELVIS worsening. This is TPE procedure #3 for presumptive/clinical diagnosis of TTP-HUS. TPE regimen includes DAILY procedures until: 1) LDH normalizes 2) Platelets return to >150 3) The above conditions are met for TWO consecutive days. Once these criteria are met, a taper regimen may be considered. We will continue to await [id number] results, the results of which will factor into our ultimate diagnosis and treatment plan. The patient' next procedure will be tomorrow. JAY TOSCANO MD 12/16/2012 ATTENDING MD ATTESTATION: The apheresis procedure was performed under my supervision. I was present during critical portions of the procedure and available throughout. I personally interviewed and examined the patient and reviewed all clinical and laboratory data. I reviewed the note written by Dr. Toscano and agree with the findings, assessment and plan. The patient tolerated the procedure with no complications. She was somewhat more sedated today withdifficulty in responding to questions. This was attributed to Benadryl pre-medication and Dilaudid for abdominal pain. The next planned procedure is tomorrow. Platelet count has not yet responded to treatment, hemoglobin continues to drop with no evidence of intravascular or extravascular clearance, most likely due to ongoing GI bleeding. Awaiting ADAMTS-13 to guide plan for plasma exchange. JALEEL REYNOSO MD 12/17/2012 * Fabi Bliss MD - 12/16/2012 7:33 AM EDT Inpatient Hematology/Oncology/SCT Progress Note Patient info: Name: Anum Henriquez : 1960 PCP: BAKARI COSTELLO APRN PCP phone number: [phone] Date of Admission: 12/13/2012 ( Hospital Day 3 days ) Service: Hem/Onc Team B - Pager [phone] Responsible Attending:Fabi Bliss MD ID: Anum Henriquez is a 52 y.o. 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 Now receiving plasma exchange. Hospital Problem List: Patient Active Problem List Diagnoses Code ??? Hemorrhagic colitis 558.9 ??? Thrombocytopenia 287.5 ??? Hyperthyroidism 242.90 ??? 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 Dx discussed again with pt and -concerns about her urine output with her DELVIS - only 761ml out yesterday (2000ml in) Vitals: Last value Range last 24 hrs Temperature Temp: 36.8 ??C (98.2 ??F) Temp: [36.4 ??C (97.5 ??F)-37.4 ??C (99.3 ??F)] Heart Rate Heart Rate: 81 Heart Rate: [81-97] Blood Pressure BP: 113/81 mmHg BP: (113-123)/(66-81) Respiratory Rate Resp: 18 Resp: [18] SpO2 SpO2: 97 % SpO2: [92 %-100 %] Intake/Output Summary (Last 24 hours) at 12/16/12 1055 Last data filed at 12/16/12 0436 Gross per 24 hour Intake 2665 ml Output 760 ml Net 1905 ml Patient Vitals for the past 168 hrs: Weight 12/16/12 0610 77.8 kg (171 lb 8.3 oz) 12/13/122021 73.6 kg (162 lb 4.1 oz) Admit wt:73.60 kg Change: +4kg Physical Exam: GEN: Thin but WDWN woman lying in bed, NAD, anxious-appearing. A&Ox3, interacting appropriately HEENT: PERRLA, EOMI, anicteric, exopthalmos, MMM, OP clear RESP: CTAB, no w/r/r Abd: Moderately distended but soft. Moderately tender to deep palpation diffusely. Hypoactive BS. No rebound or guarding. No masses or HSM appreciated. EXT: Trace pitting edema lower legs bl, but legs feel tense. Upper LEs with tense edema equal bl. No calf tenderness or asymmetry. Skin: no lesions, no pitting, but skin feels tense Neuro: A&Ox3, dysmetria Antimicrobials: Metronidazole Cirpofloxacin Medications: Scheduled Meds: ??? diphenhydrAMINE 25 mg Intravenous Once ??? potassium chloride 20 mEq Intravenous Q1H ??? magnesium sulfate 2 g Intravenous Once ? ? DISCONTD: potassium & sodium phosphates 1.5 g Oral 4 Times Daily WC & HS ??? methimazole 5 mg Oral Daily ??? chlorhexidine 15 mL Oral BID ??? sodium chloride 0.9 % 5 mL Intravenous Q12H ??? esomeprazole 40 mg Oral Daily Or ??? esomeprazole 40 mg Intravenous Daily ??? metroNIDAZOLE 500 mg Intravenous Q8H KATIE ??? DISCONTD: ciprofloxacin 200 mg Intravenous Q12H Continuous Infusions: ??? sodium chloride 0.9% 115 mL/hr (12/15/121) PRN Meds:.diphenhydrAMINE, DISCONTD: diphenhydrAMINE, acetaminophen, ondansetron, ondansetron, zolpidem, HYDROmorphone, prochlorperazine, prochlorperazine Labs: Recent Labs Basename 12/16/120 12/15/12 0350 12/14/12 0549 WBC 6.4 6.3 8.3 HGB 7.5* 9.2* 10.8* HCT 22.2* 25.6* 31.8* PLATELET 42* 41* 44* NEUTROABS 4.69 4.35 5.70 Recent Labs Basename 12/16/120 12/15/12 0350 12/14/12 0549 NA 139 139 138 K 4.1 3.2* 3.7 CL 111* 113* 114* CO2 22 20* 19* BUN 33* 26* 18 CREATININE 2.29* 2.12* 1.74* Recent Labs Basename 12/16/12 0440 12/15/12 0350 12/14/12 0549 12/13/12 2200 CALCIUM 8.1* 7.9* 7.8* -- MAGNESIUM -- 0.72 -- 0.55* PHOS -- 3.1 -- 1.4* Recent Labs Basename 12/16/12 0440 12/15/12 0350 12/14/12 0216 12/13/12 2200 AST 49* -- -- 30 ALT 21 -- -- 10 ALKPHOS 32* -- -- 29* BILITOT 0.8 -- -- 1.0 BILIDIR 0.2 -- -- 0.2 LDH 455* 417* 672* -- Recent Labs Basename 12/13/12 2200 INR 1.3* PT 16.5* PTT 27 Microbiology: C diff 12/15 - neg Stool wbc + Stool cx OSH 12/10 - negative Pertinent radiology/diagnostic studies: KUB 12/15: Mild gaseous distention of the small bowel with a few air-fluid levels. + gas within the colon. The pattern is most consistent with a partial small bowel obstruction. No evidence of free subdiaphragmatic air. 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 Awaiting ADAMTS-13 lab. . Stool culture (including e coli O157:H7 pending). 1/3 OSH c diff screen +. Repeat here negative ->d/c'd precautions. Geting daily plasma exchange. Trending plts and LDH as most sensitive markers of response. Will continue plasma exchange until plts >100. Plts stable today, LDH downtrending. Moderate abdominal distention. KUB read as possiblepartial SBO but + air in distal colon and BM this am (0700). Giving gentle fluids for worsening renal function and decreased intake. No fever or AMS. Plan: # TTP-HUS - f/u ADAMTS-13 - f/u stool cx (including shiga toxin/E coli O157:H7) - Daily plasma exchange until plts > 100 - 50mg IV benadryl pre-med with each plasma exchange per Transfusion Med for itching - daily plts and LDH - trend CBC, transfuse if necessary. No transfusions today # Abdominal distention, ?partial SBO - KUB not overwhelming, but will follow serial abdominal exams closely with low threshold to repeatKUB - abdomen improved today - air-fluid levels could be 2/2 enterocolitis - +BM this am - if worsening pain or vomiting, will insert NG tube # Diarrhea (resolved yesterday, but dark colored stools today), Nausea, ? c diff, - 1/3 c diff studies at OSH was positive - Repeat study here negative - Hb decreased today (hemolysis vs. Hemodilution vs. GI bleeding), continuing to monitor -don't think she has active c diff, 1 positive study may have been false negative - likely she will receive 2 weeks of flagyl (already 1 week - Zofran, compazine for nausea - no vomiting currently # DELVIS - Likely 2/2 TTP-HUS plus decreased intake - starting gentle fluids - NS 75cc/hr - f/u with consult Nephrology today to discuss if lasix should be given (she is +4kg) in context ofher kidney injury #Hyperthyroidism - consult with Endo to see if changing her medication - methimidazole (thoughts it could be causingvasculitis) # FEN - repleting K, mag, phos prn - full liquid diet as tolerated. Make NPO if abd pain/distention worsens # Other - DVT ppx - SCDs. No thx anticoag given thrombocytopenia and anemia - GI ppx - nexium CODE STATUS: Full Code JOHN KIMBALL MD, PGY-1 12/16/2012 Team B Pager #[phone] ++++++++++++++++++++++++++++++++++++++++++++++++++++++++++++++++ Attending Addendum: I personally saw, examined and interviewed the patient. I agree with the history, physical, assessment and plan in the note above. I have seen and examined the patient on rounds and I have discussed the management with the team. I have reviewed all pertinent laboratory and radiographic findings. I a gree with the plan and have the following additional corrections and/or comments. Bloody Diarrhea - CDiff + at outside hospital but negative here. Melena continues. Will ask ID to weigh in again as source of the GI sx and cultures is not clear. Will stop cipro per renal recommendations. TTP-HUS - she describes some dysmetria today. Concern for progressive neuro symptoms. No clear response to plasma exchange to date (LDH up a bit and plt are stable). May be atypical diarrhea TTP-HUS which does not respond to plasma exchange. H/H stable. Renal - Creat continues to worsen. Volume up. Appreciate nephrology input. Edema - tense edema throughout. IVF stopped. Will give IV lasix if OK with nephrology. Graves - Will check TSH and consult endocrine as renal would like to hold the methimazole. * Fabi Bliss MD - 12/15/2012 6:23 PM EDT Inpatient Hematology/Oncology/SCT Progress Note Patient info: Name: Anum Henriquez : 1960 PCP: BAKARI COSTELLO APRN PCP phone number: [phone] Date of Admission: 12/13/2012 ( Hospital Day 2 days ) Service: Hem/Onc Team B - Pager [phone] Responsible Attending:Fabi Bliss MD ID: Anum Henriquez is a 52 y.o. 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 Now receiving plasma exchange. Hospital Problem List: Patient Active Problem List Diagnoses Code ??? Hemorrhagic colitis 558.9 ??? Thrombocytopenia 287.5 ??? Hyperthyroidism 242.90 ??? 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 Abd exam stable throughout day. Non-acute abd. - Anxious. Dx discussed again with pt and Vitals: Last value Range last 24 hrs Temperature Temp: 36.4 ??C (97.5 ??F) Temp: [36.2 ??C (97.2 ??F)-37.4 ??C (99.3 ??F)] Heart Rate Heart Rate: 91 Heart Rate: [82-95] Blood Pressure BP: 123/81 mmHg BP: (106-126)/(61-90) Respiratory Rate Resp: 16 Resp: [16-20] SpO2 SpO2: 97 % SpO2: [92 %-100 %] Intake/Output Summary (Last 24 hours) at 12/15/12 1823 Last data filed at 12/15/12 1627 Gross per 24 hour Intake 563 ml Output 250 ml Net 313 ml Patient Vitals for the past 168 hrs: Weight 12/13/122021 73.6 kg (162 lb 4.1 oz) Admit wt:73.60 kg Physical Exam: GEN: Thin but WDWN woman lying in bed, NAD, anxious-appearing. A&Ox3, interacting appropriately HEENT: PERRLA, EOMI, anicteric, MMM, OP clear RESP: CTAB, no w/r/r Abd: Moderately distended but soft. Moderately tender to deep palpation diffusely. Hypoactive BS. No rebound or guarding. No masses or HSM appreciated. EXT: Trace pitting edema lower legs bl. Upper LEs with tense edema equal bl. No calf tenderness or asymmetry. Skin: no lesions Neuro: A&Ox3, afocal. Medications: Scheduled Meds: ??? diphenhydrAMINE 25 mg Intravenous Once ??? potassium chloride 20 mEq Intravenous Q1H ??? magnesium sulfate 2 g Intravenous Once ? ? DISCONTD: potassium & sodium phosphates 1.5 g Oral 4 Times Daily WC & HS ??? ondansetron 4 mg Oral Once ??? diphenhydrAMINE 25 mg Intravenous Once ??? methimazole 5 mg Oral Daily ??? chlorhexidine 15 mL Oral BID ??? sodium chloride 0.9 % 5 mL Intravenous Q12H ??? esomeprazole 40 mg Oral Daily Or ??? esomeprazole 40 mg Intravenous Daily ??? metroNIDAZOLE 500 mg Intravenous Q8H KATIE ??? ciprofloxacin 200 mg Intravenous Q12H Continuous Infusions: ??? sodium chloride 0.9% 75 mL/hr (12/15/12 1045) PRN Meds:.diphenhydrAMINE, DISCONTD: diphenhydrAMINE, acetaminophen, ondansetron, ondansetron, zolpidem, HYDROmorphone, prochlorperazine, prochlorperazine Labs: Recent Labs Basename 12/15/12 0350 12/14/12 0549 12/13/12 2200 WBC 6.3 8.3 8.7 HGB 9.2* 10.8* 11.9 HCT 25.6* 31.8* 34.4 PLATELET 41* 44* 46* NEUTROABS 4.35 5.70 -- Recent Labs Basename 12/15/12 0350 12/14/12 0549 12/13/12 2200 NA 139 138 138 K 3.2* 3.7 3.8 CL 113* 114* 113* CO2 20* 19* 18* BUN 26* 18 14 CREATININE 2.12* 1.74* 1.45* Recent Labs Basename 12/15/12 0350 12/14/12 0549 12/13/12 2200 CALCIUM 7.9* 7.8* 7.5* MAGNESIUM 0.72 -- 0.55* PHOS 3.1 -- 1.4* Recent Labs Basename 12/15/12 0350 12/14/12 0216 12/13/12 2200 AST -- -- 30 ALT -- -- 10 ALKPHOS -- -- 29* BILITOT -- -- 1.0 BILIDIR -- -- 0.2 LDH 417* 672* Not Perf Recent Labs Basename 12/13/12 2200 INR 1.3* PT 16.5* PTT 27 Microbiology: C diff 12/15 - neg Stool wbc + Stool cx OSH 12/10 - negative Pertinent radiology/diagnostic studies: KUB 12/15: Mild gaseous distention of the small bowel with a few air-fluid levels. + gas within the colon. The pattern is most consistent with a partial small bowel obstruction. No evidence of free subdiaphragmatic air. 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 Awaiting ADAMTS-13 lab. . Stool culture (including e coli O157:H7 pending). 1/3 OSH c diff screen +. Repeat here negative ->d/c'd precautions. Geting daily plasma exchange. Trending plts and LDH as most sensitive markers of response. Will continue plasma exchange until plts >100. Plts stable today, LDH downtrending. Moderate abdominal distention. KUB read as possiblepartial SBO but + air in distal colon and BM this am (0700). Giving gentle fluids for worsening renal function and decreased intake. No fever or AMS. Plan: # TTP-HUS - f/u ADAMTS-13 - f/u stool cx (including shiga toxin/E coli O157:H7) - Daily plasma exchange until plts > 100 - 50mg IV benadryl pre-med with each plasma exchange per Transfusion Med for itching - daily plts and LDH - trend CBC, transfuse if necessary. No transfusions today # Abdominal distention, ?partial SBO - KUB not overwhelming, but will follow serial abdominal exams closely with low threshold to repeatKUB - abdomen not surgical at this point - air-fluid levels could be 2/2 enterocolitis - +BM this am - if worsening pain or vomiting, will insert NG tube # Diarrhea (resolved as of today), Nausea, ? c diff, - /3 c diff studies at OSH was positive - Repeat study here negative - don't think she has active c diff, 1 positive study may have been false negative - Zofran, compazine for nausea - no vomiting currently # DELVIS - Likely 2/2 TTP-HUS plus decreased intake - starting gentle fluids - NS 75cc/hr # FEN - repleting K, mag, phos prn - full liquid diet as tolerated. Make NPO if abd pain/distention worsens # Other - DVT ppx - SCDs. No thx anticoag given thrombocytopenia and anemia - GI ppx - nexium CODE STATUS: Full Code LEI ALEMAN MD, PGY-1 12/15/2012 Team B Pager #[phone] ++++++++++++++++++++++++++++++++++++++++++++++++++++++++++++++++ Attending Addendum: I personally saw, examined and interviewed the patient. I agree with the history, physical, assessment and plan in the note above. I have seen and examined the patient on rounds and I have discussed the management with the team. I have reviewed all pertinent laboratory and radiographic findings. I a gree with the plan and have the following additional corrections and/or comments. Pt s/p plasma exchange X 1. Plt and H/H stable. LDH down a bit. CReat worse. Will follow LDH and plt count daily. Stool cultures pending. CDiff reported + (third stool sample ) At outside hosp. [id number] is pending. * Jaleel Reynoso MD - 12/15/2012 12:49 PM EDT Transfusion Medicine Service Procedure Note Transfusion Medicine Attending Physician: MD Reena Transfusion Medicine Resident/Fellow: MD Dave Date: 12/15/2012 Procedure Type: Therapeutic Plasma Exchange Number 2 of ongoing Indication / Diagnosis: TTP-HUS ASFA Category: I Grade: 1A Relevant History / Background: Mrs Henriquez (prefers Anum) is a 52 year old female with a past medical history of Graves disease (reportedly stable on methimazole for >10 years) who presented to [facility] 6 days ago with watery/bloody diarrhea and abdominal cramping and was subsequently admitted and started on fluids, cipro, and flagyl. Per Heme/Onc note, notable outside labs consist of an admission WBC of13.1 with 89% neutriphils, Hgb 14.5, Plts 151, fecal leukocytes, stool culture negative, negative for Shiga toxin, and 2 stool cultures negative for C Diff (12/10 and 12/12/12) with a third returning positive (12/13/12). She was [place] [facility] [place] after daily labs revealed a drop in platelets from 151 to 66, increase of Cr from 0.8 to 1.2, and elevated LDH at 1187 (all per OSH). [facility] labs confirmed thrombocytopenia at 46 (currently 44), increasing Creatinine (1.4 at [facility] admission, currently 1.74) LDH of 672, dropping hemoglobin (Per OSH, 14 at initial admit, 11.9 at [facility] admit, currently 10.8), and low haptoglobin (<10). INR and fibrinogen are normal. Additionally, a peripheral blood smear revealed thrombocytopenia and anemia with schistocytes, rare spherocytes c/w microangiopathic hemolytic anemia. The trends in labs support a presumptive diagnosis of TTP-HUS History since last visit: No acute events overnight. Pt states she had no noted side effects of last night's TPE procedure Allergies: Erythromycin base; Milk; and Milk based formula Relevant Medications: Methimazole Flagyl Cipro Physical Exam: GENERAL: Conversant, pleasant, slightly anxious but no evident distress CARDIAC: RRR, no murmurs LUNGS: CTAB with decreased flow through lower lobes due to position and effort ABDOMEN: Diffusely tender, soft, + bowel sounds EXTREMITIES: Pt reports increase in bilateral leg edema, although exam proves perhaps only slight increase in 1+ pitting edema in bilateral thighs and ankles (sock-line imprint). Non-tender, slightlywarm. Normal peripheral pulses. SKIN: Warm and dry, no rashes or lesions NEURO: Grossly intact ACCESS: Non-tunneled pheresis catheter, RIJ Current laboratory data: Recent Labs Basename 12/15/12 0350 12/14/12 0549 12/13/12 220 WBC 6.3 8.3 8.7 HGB 9.2* 10.8* 11.9 HCT 25.6* 31.8* 34.4 PLATELET 41* 44* 46* NEUTROABS 4.35 5.70 -- Recent Labs Basename 12/15/12 0350 12/14/12 0549 12/13/12 2200 NA 139 138 138 K 3.2* 3.7 3.8 CL 113* 114* 113* CO2 20* 19* 18* BUN 26* 18 14 CREATININE 2.12* 1.74* 1.45* Recent Labs Basename 12/15/12 0350 12/14/12 0216 12/13/12 2200 AST -- -- 30 ALT -- -- 10 ALKPHOS -- -- 29* BILITOT -- -- 1.0 BILIDIR -- -- 0.2 LDH 417* 672* Not Perf Recent Labs Basename 12/13/12 2200 INR 1.3* PT 16.5* PTT 27 FIBRINOGEN 425 Information about today's procedure A time out was called and the patient's identity was verified. Based on the physical exam and laboratory data, the patient qualified for TPE and the procedure was initiated. The procedure was performed by Janice Trujillo RN under the supervision of Jaleel Reynoso MD. The procedure began at 0934 and was concluded at 1152. Volumes: Plasma volume exchanged: 0.9 Total AC Used: 499 mL Remove ba mL Replaced: 0 mL Albumin, 2812 mL plasma Bolus: 0 mL Rinseback: 156 mL saline Plasma removed: 2977 mL AC in remove ba mL AC to patient: 51 mL Fluid balance: 18 mL Total run time: 138 min In addition, the patient received infusion of 3g calcium gluconate diluted in 100 mL 0.9% NaCl throughout the procedure at 37 mL/hour to prevent hypocalcemia. Total volume administered was 80 mL. Vital signs: Pre (0930 hrs): JV=771/83; P=95; R=18; T=36.2 Post (1158 hrs): MW=465/80; P=82; R=18; T=36.5 Complications noted (if any): At 1010 hrs, the patient complained of an itchy scalp prompting administration of 25mg Benadryl IV at 1015 hrs. Shortly thereafter at 1020 hrs, the patient developed hives on her neck and chest. No changes from baseline vitals or breathing ability occurred and it wasdecided to give the Benadryl a few more minutes to take effect with the patient under close observation. The patient's status seemingly improved at that time with no further hives or itching, however, at 1110 hrs, she developed hives and itchiness on her wrist, prompting an additional 25mg of IV Benadryl. Again, physical exam revealed no changes in baseline breathing status and vitals remained stable, so the the procedure was continued to completion with no further incident or progression of symptoms. Assessment/Plan: With the patient's repeated allergic reaction to plasma products today, we advocate pre-medication of 50mg IV Benadryl before each TPE procedure. This is TPE procedure #2 for presumptive diagnosis of TTP-HUS. TPE regimen includes DAILY procedures until: 1) LDH normalizes 2) Platelets return to >150 3) The above conditions are met for TWO consecutive days. Once these criteria are met, a taper regimen may be considered. We will continue to await [id number] results, the results of which will factor into our ultimate diagnosis and treatment plan. The patient' next procedure will be tomorrow at 0900 hrs VAHID JACINTO MD 12/15/2012 ATTENDING MD ATTESTATION: The apheresis procedure was performed under my supervision. I was present during critical portions of the procedure and available throughout. I personally interviewed and examined the patient and reviewed all clinical and laboratory data. I reviewed the note written by Dr. Jacinto and agree with the findings, assessment and plan. The patient tolerated the procedure but did experience itching and hives which responded to 50 mgh benadryl. We will pre-treat with Benadryl tomorrow. The next scheduled procedure will be tomorrow morning around 9AM. Await results of ADAMTS-13 testing and continue to monitor labs for response to treatment. LDH has improved, platelets essentially unchanged, creatinine trending up but limited PO intake overnight. Plan to continue daily plasma exchange at this time for TTP-HUS in setting of history of bloody diarrhea, culture negative at this time except for a single CDiff that was positive. Contact precautions have been removed, diarrhea somewhat improved today but exam/imaging now concerningfor SBO. We will plan to perform the exchange in the patient room tomorrow morning but will consider treating the following day in our treatment center depending on patient clinical status now that contact precautions have been removed. JALEEL REYNOSO MD 12/15/2012 * Jayden Gutierrez RN - 12/15/2012 10:15 AM EDT 1015- Pt receiving plasmaphoresis in room and began c/o itching on head neck with visible, pronounced redness and hives. 25 mg IV benadryl administered with symptomatic relief, though hives and redness only diminished mildly. VSS per phoresis RN. Pt c/o baseline SOB but no increased dyspnea. Pathology attending and heme/onc resident notified. 1 hour later at 11.15 pt with redness on palms and forearms bilaterally and associated hives. 2nd dose 25 mg IV benadryl administered and phoresis infusion slowed per phoresis RN. Pt tolerated remained of infusion. Plan to premedicate with 50 mg IV benadryl prior to phoresis tomorrow. * Luis E Trotter MD - 12/15/2012 9:22 AM EDT HYPERTENSION/ NEPHROLOGY CONSULT PATIENT: Anum Henriquez : 1960 REASON FOR CONSULTATION: referred by Dr. raya for DELVIS Ih: feels better today. MEDICATIONS: ??? ondansetron 4 mg Oral Once ??? diphenhydrAMINE 25 mg Intravenous Once ??? DISCONTD: sodium chloride 0.9 % 5 mL Intravenous Q12H ??? methimazole 5 mg Oral Daily ??? chlorhexidine 15 mL Oral BID ??? sodium chloride 0.9 % 5 mL Intravenous Q12H ??? esomeprazole 40 mg Oral Daily Or ??? esomeprazole 40 mg Intravenous Daily ??? metroNIDAZOLE 500 mg Intravenous Q8H KATIE ??? ciprofloxacin 200 mg Intravenous Q12H PHYSICAL EXAM: Temp: [36.5 ??C (97.7 ??F)-37.4 ??C (99.3 ??F)] Heart Rate: [85-93] Resp: [14-20] BP: (106-126)/(61-90) SpO2: [92 %-98 %] Appearance - awake and alert HEENT - Sclera white. Mucous membranes moist. Chest: Lungs clear to ausculatation w/o wheezes/ rhonchi/ crackles. Heart - S1 and S2 clear w/o murmur, gallop, or rub. JVP not elevated. Abd - Soft. + BS. No bruit. Non tender. No organomegaly. Ext -Warm. No cyanosis. No dependent edema. STUDIES: Lab Results Component Value Date WBC 6.3 12/15/2012 RBC 3.01* 12/15/2012 HGB 9.2* 12/15/2012 HCT 25.6* 12/15/2012 MCV 85.0 12/15/2012 MCH 30.6 12/15/2012 MCHC 35.9 12/15/2012 PLATELET 41* 12/15/2012 RDWCV 14.2 12/15/2012 Lab Results Component Value Date Sodium 139 12/15/2012 Potassium 3.2* 12/15/2012 Chloride 113* 12/15/2012 CO2 20* 12/15/2012 BUN 26* 12/15/2012 Creatinine 2.12* 12/15/2012 Glucose Lvl 109 12/15/2012 Lab Results Component Value Date CALCIUM 7.9* 12/15/2012 Lab Results Component Value Date PHOS 1.4* 12/13/2012 IMPRESSION/ RECOMMENDATIONS: DELVIS- most likely etiology at this time is TTP-HUS . Pt was started on plasmapheresis yest. 2 nd treatment today. Transferred to heme service. ADAMTS 13 level sent. Plan for plasmapheresis today and until LDH improves or platelets>150. Cr rising but pt is still non oliguric. No acute need for hd today. Will continue to monitor closely for dialysis needs. Would recommend to discontinue Cipro as it is associated with TTP per some case reports in literature. C.diff- cont flagyl. Hypokalemia- replace with kcl 40 meqx 1 dose Hypophosphatemia at admission- please check repeat phos today. Renal dose meds. Avoid nephrotoxins. Seen and Discussed w/ Dr. Trotter Renal Attending: The patient was examined together with the renal fellow and I agree with the above note The blood smear showed schistocytes and the patient in undergoing her second plasmapheresis treatment today C-difficile is a rare cause of HUS/TTP but so is ciprofloxacin, the patient initially presented with normal Hb and platelet count to the outside hospital, at that time she was sick enough already with abdominal pain to be admitted and the hematological abnormalities developed only after she was started on antibiotics, thus ciprofloxacin is a potential culprit and I would recommend to stop this drug, the patient also uses an older thyroid drug that can cause vasculitis, including drug associatedANCA vasculitis and I would recommend to stop it as well and to check complements and ANCAs, if no improvement would consider renal biopsy History was reviewed with the patient and her and was unrevealing, we confirmed that there were no other illnesses in the patients surroundings, no prior antibiotic use, no ingestion of quinine or OTCs * Lonny Storm MD - 12/14/2012 11:06 PM EDT Transfusion Medicine Service Procedure Note Transfusion Medicine Attending Physician: MD Elliot PhD Transfusion Medicine Resident/Fellow: MD Dave Date: 12/14/2012 Procedure Type: Therapeutic Plasma Exchange Number 1 of ongoing Indication / Diagnosis: TTP-HUS ASFA Category: I Grade: 1A Relevant History / Background: Mrs Henriquez (prefers Anum) is a 52 year old female with a past medical history of Graves disease (reportedly stable on methimazole for >10 years) who presented to [facility] 6 days ago with watery/bloody diarrhea and abdominal cramping and was subsequently admitted and started on fluids, cipro, and flagyl. Per Heme/Onc note, notable outside labs consist of an admission WBC of13.1 with 89% neutriphils, Hgb 14.5, Plts 151, fecal leukocytes, stool culture negative, negative for Shiga toxin, and 2 stool cultures negative for C Diff (12/10 and 12/12/12) with a third returning positive (12/13/12). She was [place] [facility] [place] after daily labs revealed a drop in platelets from 151 to 66, increase of Cr from 0.8 to 1.2, and elevated LDH at 1187 (all per OSH). [facility] labs confirmed thrombocytopenia at 46 (currently 44), increasing Creatinine (1.4 at [facility] admission, currently 1.74) LDH of 672, dropping hemoglobin (Per OSH, 14 at initial admit, 11.9 at [facility] admit, currently 10.8), and low haptoglobin (<10). INR and fibrinogen are normal. Additionally, a peripheral blood smear revealed thrombocytopenia and anemia with schistocytes, rare spherocytes c/w microangiopathic hemolytic anemia. The trends in labs support a presumptive diagnosis of TTP-HUS History since last visit: This is her first procedure Allergies: Erythromycin base; Milk; and Milk based formula Relevant Medications: Methimazole Flagyl Cipro Physical Exam: GENERAL: Drowsy but, conversant, pleasant, no evident distress CARDIAC: RRR, no murmurs LUNGS: CTAB ABDOMEN: Diffusely tender, soft, + bowel sounds EXTREMITIES: Mild 1+ pitting edema in bilateral thighs and ankles (sock-line imprint), new since yesterday per patient. Non-tender, slightly warm. Normal peripheral pulses. SKIN: Warm and dry, no rashes or lesions NEURO: Grossly intact ACCESS: Non-tunneled pheresis catheter, RIJ Current laboratory data: Recent Labs Basename 12/14/12 0549 12/13/12 2200 WBC 8.3 8.7 HGB 10.8* 11.9 HCT 31.8* 34.4 PLATELET 44* 46* NEUTROABS 5.70 -- Recent Labs Basename 12/14/12 0549 12/13/12 2200 NA 138 138 K 3.7 3.8 CL 114* 113* CO2 19* 18* BUN 18 14 CREATININE 1.74* 1.45* Recent Labs Basename 12/14/12 0216 12/13/12 2200 AST -- 30 ALT -- 10 ALKPHOS -- 29* BILITOT -- 1.0 BILIDIR -- 0.2 LDH 672* Not Perf Recent Labs Basename 12/13/12 2200 INR 1.3* PT 16.5* PTT 27 FIBRINOGEN 425 Information about today's procedure A time out was called and the patient's identity was verified. Based on the physical exam and laboratory data, the patient qualified for TPE and the procedure was initiated. The procedure was performed by Kelsie Moore RN under the supervision of Lonny Storm MD PhD. The procedure began at 2013 and was concluded at 2146. Volumes: Plasma volume exchanged: 1.0 Total AC Used: 541 mL Remove ba mL Replaced:2703 mL plasma Bolus: 0 mL Rinseback: 162 mL saline Plasma removed: 2899 mL AC in remove ba mL AC to patient: 67 mL Fluid balance: 77 mL Total run time: 93 min In addition, the patient received infusion of 3g calcium gluconate diluted in 100 mL 0.9% NaCl throughout the procedure at 37 mL/hour to prevent hypocalcemia. Total volume administered was 66 mL. Vital signs: Pre (1945 hrs): AF=468/87; P=93; R=18; T=98.3 Post (2200 hrs): VM=222/90; P=87; R=18; T=99.3 Complications noted (if any): The procedure was tolerated well and was completed without complications. Assessment/Plan: This is TPE procedure #1 for presumptive diagnosis of TTP-HUS. TPE regimen includes DAILY procedures until: 1) LDH normalizes 2) Platelets return to >150 3) The above conditions are met for TWO consecutive days. Once these criteria are met, a taper regimen may be considered. We will also await [id number] results, which will highly factor into our ultimate diagnosis and treatment plan. The patient' next procedure will be tomorrow at 0900 hrs. VAHID JACINTO MD 12/14/2012 ATTENDING MD ATTESTATION: The apheresis procedure was performed under my supervision. I was present during critical portions of the procedure and available throughout. I personally interviewed and examined the patient and reviewed all clinical and laboratory data. I reviewed the note written by Dr. Jacinto and agree with the findings, assessment and plan. The patient tolerated the procedure with no complications and was discharged to home in good condition. The next scheduled procedure will be tomorrow (SundayDecember 15). We anticipate carrying out a course of daily plasma exchanges. If patient shows signs of getting worse, could consider a more aggressive regiment of moving up to 1.5 Vol TPEs. LONNY STORM MD 12/15/2012 * Jayden Gutierrez RN - 12/14/2012 6:40 PM EDT 1800- Pt arrived from IR. Phoresis cath site intact. Pt with acute nausea/vomiting. Both PIVs painful to flush and IV team notified. VSS. Pt c/o moderate pain at urethral cath site when moving. Heme and pathology fellows paged that she has arrived on floor. * DianeMelba lux Devaughn - 12/14/2012 6:09 PM EDT Inpatient Progress Note Day of Admission: 12/13/2012 PCP: BAKARI COSTELLO APRN, Pt ID:[id number] y.o. Female presents to [facility] with abdominal pain and bloody diarrhea with labs consistent with hemolysis, schistocytes, and thrombocytopenia consistent with TTP. Patient Active Problem List Diagnoses Code ??? Hemorrhagic colitis 558.9 ??? Thrombocytopenia 287.5 ??? Hyperthyroidism 242.90 ??? 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 Scheduled Meds: ??? DISCONTD: sodium chloride 0.9 % 5 mL Intravenous Q12H ??? methimazole 5 mg Oral Daily ??? chlorhexidine 15 mL Oral BID ??? sodium chloride 0.9 % 5 mL Intravenous Q12H ??? esomeprazole 40 mg Oral Daily Or ??? esomeprazole 40 mg Intravenous Daily ??? metroNIDAZOLE 500 mg Intravenous Q8H KATIE ??? ciprofloxacin 200 mg Intravenous Q12H ??? magnesium sulfate 2 g Intravenous Once ??? sodium phosphate 15 mmol Intravenous Once ??? DISCONTD: dextrose 5% and lactated ringers infusion 125 mL/hr Intravenous Continuous ### ??? DISCONTD: sodium chloride 0.9% infusion 1,000 mL Intravenous Continuous ### ??? sodium chloride 0.9% infusion 150 mL/hr Intravenous Continuous ### ??? DISCONTD: sodium chloride 0.9% infusion 1,000 mL Intravenous Continuous ### PRN Meds: DISCONTD: fentaNYL (PF), DISCONTD: midazolam, acetaminophen, ondansetron, ondansetron, zolpidem, HYDROmorphone, prochlorperazine, prochlorperazine, DISCONTD: HYDROmorphone Physical Exam: Vital signs: Temp: [36.4 ??C (97.5 ??F)-36.9 ??C (98.4 ??F)] Heart Rate: [81-91] Resp: [12-20] BP: (110-125)/(70-77) SpO2: [96 %-100 %] Intake/Output Summary (Last 24 hours) at 12/14/12 1809 Last data filed at 12/14/12 1400 Gross per 24 hour Intake 2101.83 ml Output 580 ml Net 1521.83 ml Gen: middle-age woman, resting comfortably in bed, NAD CVS: RRR, no m/r/g Resp: Lungs are clear to auscultation. Abdo: Mild distension, moderately tender diffusely to palpation, hypoactive BS Extr: WWP, no edema Skin: No ecchymosis Labs: Recent Labs Basename 12/14/12 0549 12/13/12 2200 WBC 8.3 8.7 RBC 3.74* 4.02 HGB 10.8* 11.9 HCT 31.8* 34.4 MCV 85.0 85.6 MCH 28.9 29.6 MCHC 34.0 34.6 PLATELET 44* 46* RDWCV 13.7 13.4 Recent Labs Basename 12/14/12 0549 12/13/12 2200 NA 138 138 K 3.7 3.8 CL 114* 113* CO2 19* 18* BUN 18 14 CREATININE 1.74* 1.45* Lab Results Component Value Date LDH 672* 12/14/2012 Haptoglobin <10 Schistocytes present in peripheral smear Alyssa negative Assessment/Plan: Pt is a 52 y.o. year old female w/ history of hyperthyroidism who presents with symptoms consistentwith TTP-HUS. Hematology and Nephrology consulted early this morning and evaluated patient. Patientultimately transferred to hematology service for plasma exchange transfusion this afternoon. MELBA BASS MD [facility] [id number] * Cristobal Reid, RN - 12/14/2012 5:30 PM EDT VIR NURSING DATABASE Name: ANUM HENRIQUEZ Date of : 1960 AGE 52 y.o. Address: [address] [place] [address] (home) Mobile: No relevant phone numbers on file. Referring Provider: Ney Sherwood Planned Procedure: Placement of non-tunneled pheresis catheter. Chief Complaint/Diagnosis:52F with PMhx of hypothyroidism with a new diagnosis of TTP. Medicine is requesting non-tunneled pheresis catheter for plasmapheresis. Allergies Allergen Reactions ??? Erythromycin Base ??? Milk CIS - Localized Reaction ??? Milk Based Formula CIS - Localized Reaction Pertinent PMH: Patient Active Problem List Diagnoses Code ??? Hemorrhagic colitis 558.9 ??? Thrombocytopenia 287.5 ??? Hyperthyroidism 242.90 ??? 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 Pertinent PSH: No past surgical history on file. Date/Procedure Comments: 12/14/12 Placement of non-tunneled pheresis catheter. Fentanyl 100 mcg IV Laboratory Results: Lab Results Component Value Date INR 1.3* 12/13/2012 Lab Results Component Value Date PT 16.5* 12/13/2012 PTT 27 12/13/2012 Lab Results Component Value Date BUN 18 12/14/2012 Lab Results Component Value Date CREATININE 1.74* 12/14/2012 Lab Results Component Value Date K 3.7 12/14/2012 Lab Results Component Value Date PLATELET 44* 12/14/2012 Medications: Prior to Admission medications Medication Sig Start Date End Date Taking? Authorizing Provider methimazole (TAPAZOLE) 10 mg tablet take 1/2 tablet by mouth once daily 01/22/11 Tyson Connolly MD aspirin 81 mg EC tablet 12/03/09 Nxxwuqwpzvm-Yhtcbyyyv-Wbw C-Mn 500-400 mg Cap 12/03/09 Galena-3 Fatty Acids-Vitamin E (OMEGA-3 FISH OIL) 1,000-5 mg-unit Cap 12/03/09 CALCIUM ORAL 12/03/09 For outpatient procedures: This patient has been informed that they require a trailer truck driver to drive them home after this procedure. In the absence of a trailer truck driver, IR will not be able to perform this procedureand will need to reschedule. Pt verbalized understanding of these instructions during the pre-procedure education via phone. * James Ventura MD - 12/14/2012 4:17 PM EDT VIR PRE-PROCEDURE VIR NOTE Name: Anum Henriquez Date of : 1960 Age: 52 y.o. Referring Physician: Dr. Fontana Indication: 52F with PMHx of hypothyroidism with a new diagnosis of TTP. For non-tunneled pheresis catheter. Planned Procedure: Placement of non-tunneled pheresis catheter. Chief Complaint/Diagnosis:52F with PMhx of hypothyroidism with a new diagnosis of TTP. Medicine is requesting non-tunneled pheresis catheter for plasmapheresis. Pertinent Past Medical/Surgical History: Patient Active Problem List Diagnoses Code ??? CIS - hyperthyroidism, graves T999.0 ??? 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 Hemorrhagic colitis 558.9 ??? Thrombocytopenia 287.5 ??? Hyperthyroidism 242.90 ALLERGIES: Allergies Allergen Reactions ??? Erythromycin Base ??? Milk CIS - Localized Reaction ??? Milk Based Formula CIS - Localized Reaction No current facility-administered medications on file prior to encounter. Current Outpatient Prescriptions on File Prior to Encounter Medication Sig Dispense Refill ??? methimazole (TAPAZOLE) 10 mg tablet take 1/2 tablet by mouth once daily 45 tablet 3 ??? aspirin 81 mg EC tablet ??? Urrrchfxfxj-Nbjxbvqxz-Eqa C-Mn 500-400 mg Cap ??? Galena-3 Fatty Acids-Vitamin E (OMEGA-3 FISH OIL) 1,000-5 mg-unit Cap ??? CALCIUM ORAL Pertinent ROS: as per HPI Pertinent Family History: non contributory Labs: Lab Results Component Value Date/Time WBC 8.3 12/14/2012 5:49 AM ANC 6.90* 12/13/2012 10:00 PM HCT 31.8* 12/14/2012 5:49 AM PLATELET 44* 12/14/2012 5:49 AM INR 1.3* 12/13/2012 10:00 PM BUN 18 12/14/2012 5:49 AM CREATININE 1.74* 12/14/2012 5:49 AM Imaging: None available Physical Exam: Chest RRR, CTAB ASA: II Mallampati Class: II Assessment / Plan: 52F with TTP for placement of non-tunneled pheresis catheter. Prophylactic antibiotic: N/A Planned access site: RIJ vein * Nasrin Bruce RN - 12/14/2012 7:00 AM EDT 0700-Received report from DRU Hawkins. Patient is asleep in her room. 0800-Vital signs are stable. Doctor in to see patient. Patient hadn't voided all night. Doctor ordered a em. 0830-Patient ambulated to the bathroom and voided 300 cc's of brownish urine. Notified doctor that patient had no problem voiding and could we wait on placing a em. Patient would like to be able to get up and use bathroom. 0900-Patient resting. 1000-Vital signs are stable. Patient states she is not having any pain at this time. 1145-Placed em catheter. Obtained urine specimen for doctor. Vital signs stable. 1255-Patient complaining of pain from catheter. Manipulated catheter, deflated balloon, etc. With very scant chelo urine output. D/C'ed em catheter and placed another em catheter. Patient states it doesn't hurt like the other one. Still very scant urine output although the bladder scanner shows 343 cc's of urine in bladder. Notified doctor. is at bedside. 1400-Hematology doctor's in to see patient. After many lab tests, they say patient has TTP and is going to need a central line and have a plasma exchange. Patient will be moved to 1 (room 129) and hematology is going to take over service for the patient. 1600-Report given to DRU Ruvalcaba on . [facility]54-Patient being transported now. Notified the doctor and his nurse on . * Gianna Bowens RN - 12/14/2012 1:36 AM EDT Nursing Progress Note 12/13/[id number] Shift Events: 1999 - [facility] A/O with stable VS on R/A. C/O transverse lower abd pain 09/18described as aching with pain goal 2-08/18. MAEW. Hypoactive bowel sounds. Abd S/R/TTP. C/O nausea but no vomiting noted. Dr. Newton aware of arrival and in to examine pt. Labs and PIV obtained. Rec'd hydromorphone 0.4mg and compazine 10mg both IV with good effect. Down for abd xray. UA sent. 2230 - Resting in bed in NAD with eyes closed. VSS. 0000 - Resting in bed with eyes closed in NAD. VSS. Denied pain and nausea. Na Phos and Magnesium given as ordered. 0200 - Resting in bed in NAD. Pt woken for lab draw and c/o transverse lower abd pain 12/18. Rec'd hydromorphone 0.4mg with good effect. 0400 - Report of positive C-Diff sample from OSH received. Dr. Newton aware. OOB to B/R to void but unable despite sensation to void. Bladder scanned for 310 mls. Will reassess. 0600 - C/O nausea with dry heaving. Compazine 10mg given IV with good effect. 0645 - Creatinine increased to 1.[address] Newton aware or inability to void and increased creatinine. No new orders rec'd. Vital Signs: See flowsheets Review of Systems: Neuro: O X 4. MAEW. Slightly unsteady gait r/t pain. OOB to bathroom with SBA. Respiratory: LSC jeff. Cardiac: SR. GI/: Continues with transverse lower abd pain and nausea. No BMs this shift. Voiding chelo urine with small amounts of mucous without difficulty. Integumentary: Intact on admission. Plan: Monitor VS, I/O, and labs. Assess pain level and effectiveness of interventions. Recommendations: Consider transfer to floor. documented in this encounter H&P Notes * Faby Newton MD - 12/13/2012 9:13 PM EDT Medicine Inpatient - Admission Note Problem List: No resolved problems to display. Active Hospital Problems Diagnoses ??? Hemorrhagic colitis ??? Thrombocytopenia ??? Hyperthyroidism Resolved Hospital Problems Diagnoses Date Resolved ID: 52 y.o. Female presents to [facility] with abdominal pain and bloody diarrhea History of Present Illness: HPI Mrs. Henriquez is a 52F w/ h/o hyperthyroidism, who presents with a several day history of abdominalpain and bloody diarrhea. History obtained by patient and from OSH records. Pt originally [facility] ED on 12/10 after experiencing severe crampy abdominal pain and diarrhea x 2-3 days. Was having multiple episodes of diarrhea that originally started as brown and watery and became bloody (bright red) by the 2nd day. Notably, the diarrhea and abdominal pain were waking her up at night, and she notes that the abdo pain did not resolve with BM's. She has never experienced symptoms similar to this before, and prior to its onset, she was in her usual state of health. No history of IBD, has never had a colonoscopy before (not even a screening colo). Denies fevers or chills,but endorses nausea over the last few days. she states that her diarrhea has improved - the stools are now a bit more formed and maroon in color, but she continues to have abdominal pain. Denies recent travel. During her admission at the OSH, she was started on cipro and flagyl IV and received IV hydration. On admission, noted to have WBC count of 13.1 w/ 89% neutrophils, Hgb 14.5, Plts 151. Noted to have fecal leukocytes, but C diff was negative (pt says they tested for salmonella and other infectious etiology in her stool but records were not sent). LFT's, lipase, amylase, TSH were all w/in normal limits. CT of the abdomen showed thickening of the colon w/ sparing of the distal sigmoid and rectum. No free air was seen. There was a noted drop in platelets today from 151 to 66 (per OSH MAR, pt did not receive heparin), rest of DIC panel showed INR of 1.3, normal fibrinogen, elevated LDH at 1187 and d- dimers. Also bump in Cr to 1.2 today from 0.8 prior. Also per report, there was worsening abdominal distension, AXR showed air-fluid levels with no clear obstruction - of note, pt has been on fentanyl PARER since Sunday. Pt was transferred to [facility] for further management. Pt afebrile and hemodynamically stable on arrival. Review of Systems: Review of Systems Constitutional: -fevers, -chills, -nightsweats, -fatigue/malaise, -weight changes HEENT: -sore throat, -runny nose, -changes in vision, -dizziness, -mouth sores CVS: -chest pain, -palpitations, -GUEVARA, +lightheadedness Resp: -SOB, -cough, -wheeze GI: +abdominal pain, +changes in bowel habits, +blood in stool, -black tarry stools, +nausea/emesis : -dysuria, -hematuria, -changes in frequency, -changes in stream, -incontinence MSK: -myalgias, -arthralgias, -swelling Skin: -rashes, -pruritis Neuro: -headaches, -focal weakness, -tremors, -seizures Past Medical and Surgical History: Hyperthyroidism (presumably from Graves disease, w/ ophthalmopathy) Hyperlipidemia Prior To Admission Medications: Prescriptions prior to admission Medication Sig Dispense Refill ??? methimazole (TAPAZOLE) 10 mg tablet take 1/2 tablet by mouth once daily 45 tablet 3 ??? aspirin 81 mg EC tablet ??? Isycgzzbqgk-Fzczwduho-Uzf C-Mn 500-400 mg Cap ??? Galena-3 Fatty Acids-Vitamin E (OMEGA-3 FISH OIL) 1,000-5 mg-unit Cap ??? CALCIUM ORAL Allergies: Allergies Allergen Reactions ??? Erythromycin Base ??? Milk CIS - Localized Reaction ??? 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 [employer] Never smoker Rare EtOH Denies illicits or IVDU Physical Exam: Last Set of Vitals and range of vitals over past 24 hours: Last value Range last 24 hrs Temperature Temp: 36.9 ??C (98.4 ??F) Temp: [36.9 ??C (98.4 ??F)] Heart Rate Heart Rate: 82 Heart Rate: [82] Blood Pressure BP: 114/71 mmHg BP: (114)/(71) Respiratory Rate Resp: 20 Resp: [20] SpO2 SpO2: 100 % SpO2: [100 %] Physical Exam Gen: Pleasant, mildly ill appearing female, in NAD HEENT: Mild ophthalmopathy noted, sclera anicteric, MMM, oropharynx clear, dentures on top, no cervical LAD CVS: RRR, nml S1 S2, no m/r/g noted Resp: CTAB, no wheezes or crackles Abdo: Soft, mildly distended, tender to deep palpation in the epigastric, umbilical, and LLQ regions. No rebound or guarding. No hepato or splenomegaly. Hypoactive BS. Extr: No LE edema Skin: No rashes or ecchymosis Neuro: Alert and oriented, grossly non-focal Laboratory (Last 24 Hours): Labs from OSH outlined in HPI Labs from [facility] pending Radiology (OSH): AXR 12/13: dilated large bowel w/ air-fluid levels seen. Cannot see free air. CXR 12/13: blunting of the costophrenic angles L>R, no other focal consolidation seen. CT 12/10: thickening of the colon w/ sparing of the distal sigmoid and rectum. No free air. Assessment/Plan: Mrs. Henriquez is a 52F w/ h/o hyperthyroidism, who presents to us in transfer w/ acute abdominal pain and bloody diarrhea c/w hemorrhagic colitis. CT a/p showed thickening of the colon with sparing of the distal sigmoid and rectum, and noted to have new thrombocytopenia today. A potential unifying diagnosis would be HUS with the bloody diarrhea, thrombocytopenia and bump in her creatinine although it is atypical given her age. Other enteric infections also on the differential include salmonella, shigella, campylobacter, or yersinia if there were terminal ileum involvement (unclear from the CTbut will obtain a 2nd read), but reportedly stool cultures were negative at OSH. It is also possible that this is the first presentation of inflammatory bowel disease, again a little atypical given her age, but some studies suggest a bimodal presentation. Can also consider ischemic colitis, which is less likely - she is not a vasculopath and distribution of colonic thickening is not c/w this. Is reasonable to continue antibiotics for presumed infection and obtain formal GI consult in AM as she may need a colonoscopy w/ biopsy. Unclear etiology of thrombocytopenia, as it has halved over 2 days. Per OSH MAR, pt did not receiveany heparin (not even as prophylaxis). One would expect her platelets to increase as it can be an acute phase reactant in this ongoing infectious/inflammatory process, unless it were DIC. DIC panel from OSH showed that fibrinogen was normal and INR 1.3, pt not currently bleeding, we will continue to monitor this closely and provide supportive measures as needed. Third issue being new abdominal distension - AXR showed air-fluid levels and dilated large bowel. Is likely related to the fact that pt has been on fentanyl PARER for over 48 hours. No tinkling bowel sounds on exam, no rebound or guarding, as well, nausea is under control. I am wary about placing an NGT given her thrombocytopenia - will hold off for now and monitor closely. Rest of plan outlined below: # Admit to Medicine - Blue Team, pager [phone] # Hemorrhagic colitis, abdominal pain: - will need to follow-up on stool cultures from OSH - GI consult in AM - requesting 2nd read of CT a/p - continue ciprofloxacin and flagyl - dilaudid 0.2-0.4mg Q2 IV PRN for abdominal pain # Thrombocytopenia - unclear etiology: - follow-up CBC today - repeat LDH, haptoglobin - LFTs to evaluate bili's - repeat DIC panel - continue to trend coags # Abdominal distension likely 2/2 narcotic-induced ileus: - repeat AXR - bowel rest - IV hydration - wary about placing NGT given thrombocytopenia # DELVIS: - noted bump in Cr to 1.2 today from 0.8 per OSH records - will f/u on labs today # PPx, Other: - DVT ppx: SCDs only in light of thrombocytopenia - GI ppx: nexium QD - continue home methimazole and zolpidem QHS PRN # CODE STATUS: FULL CODE A copy of this document will be sent to the patient's Primary Care Physician and/or Referring Physician. FABY NEWTON MD 12/13/2012 documented in this encounter Procedure Notes * Provider, Scanning - 01/29/2013 11:49 AM EDTAssociated Order(s): SCAN DOC: LAB * Provider, Scanning - 12/28/2012 9:39 AM EDTAssociated Order(s): SCAN DOC: SO[employer]BALL [employer]ER * Provider, Scanning - 12/28/2012 9:38 AM EDTAssociated Order(s): SCAN DOC: LAB * Edvin Brian RN - 12/27/2012 11:42 AM EDTAssociated Order(s): PLACE PICC LINE: CONTACT VASCULAR ACCESS PICC/Midline Insertion Procedure Note Indications: Access and Medication Administration This insertion was not to replace a malfunctioning catheter. This insertion was not due to a suspected line-associated infection. Location of Procedure: X-Ray Room 11 Risks and Benefits: The risks and benefits of this procedure were reviewed and informed consent was obtained obtained. Time Out: Prior to the start of the procedure, the patient's identity, intended procedure, site/side, correctpatient positioning and presence of the site keanu was confirmed as applicable. The medical history and chart were reviewed to rule out potential contraindications to the planned procedure. Hand Hygiene: The magazine keeper did perform hand hygiene prior to line insertion. Catheter type: PICC Lot number: [id number] Procedure Technique: Skin was prepped with chlorhexidine. Skin preparation agent was completely dry at the time of first skin puncture. The following barrier precaution methods were used:large sterile drape, maske/eye shield, large sterile gown, sterile gloves and cap. 3 ml of 1% Lidocaine was used for skin wheal. Ultrasound was used for guidance. Radiographic contrast agent was not injected for vein identification. Procedure Details: Order received for catheter placement. A 5 Fr. single lumen Bard Power catheter was placed into theleft basilic vein over a 0.018 inch guidewire using modified seldinger technique and fluoroscopy. Arm circumference was 29 cm at 2 cm above the insertion site. Final catheter length (with trimming): 38 cm Internal: 38 cm External: 0 cm Tip in SVC per GIBBONS. The line was not placed over a guidewire. Post Procedure: Diagnosis: COLITIS Blood return noted on aspiration of line after placement confirmed. 5 mls of normal saline infused free flowing to gravity via PICC after insertion. Sterile dressing applied: Tegaderm and Biopatch. Findings: The patient did tolerate the procedure well. No Complications. EDVIN BRIAN RN 12/27/2012 * Provider, Scanning - 12/24/2012 9:41 AM EDTAssociated Order(s): SCAN DOC: LAB * Provider, Scanning - 12/21/2012 1:54 PM EDTAssociated Order(s): SCAN DOC: LAB * Provider, Scanning - 12/20/2012 9:17 AM EDTAssociated Order(s): SCAN DOC: LAB * Edvin Brian RN - 12/16/2012 2:54 PM EDTAssociated Order(s): PLACE PICC LINE: CONTACT VASCULAR ACCESS PICC/Midline Insertion Procedure Note Indications: Anti-infective, Access and Medication Administration This insertion was not to replace a malfunctioning catheter. This insertion was not due to a suspected line-associated infection. Location of Procedure: X-Ray Room 11 Risks and Benefits: The risks and benefits of this procedure were reviewed and informed consent was obtained obtained. Time Out: Prior to the start of the procedure, the patient's identity, intended procedure, site/side, correctpatient positioning and presence of the site keanu was confirmed as applicable. The medical history and chart were reviewed to rule out potential contraindications to the planned procedure. Hand Hygiene: The magazine keeper did perform hand hygiene prior to line insertion. Catheter type: PICC Lot number: [id number] Procedure Technique: Skin was prepped with chlorhexidine. Skin preparation agent was completely dry at the time of first skin puncture. The following barrier precaution methods were used:large sterile drape, maske/eye shield, large sterile gown, sterile gloves and cap. 3 ml of 1% Lidocaine was used for skin wheal. Ultrasound was used for guidance. Radiographic contrast agent was not injected for vein identification. Procedure Details: Order received for catheter placement. A 5 Fr. double lumen Bard Power catheter was placed into theright basilic vein over a 0.018 inch guidewire using modified seldinger technique and fluoroscopy. Arm circumference was 32 cm at 2 cm above the insertion site. Final catheter length (with trimming): 35 cm Internal: 35 cm External: 0 cm Tip in SVC per DR. ARRIAZA. The line was not placed over a guidewire. Post Procedure: Diagnosis: HEMMORRHAGIC COLITIS Blood return noted on aspiration of line after placement confirmed. 5 mls of normal saline infused free flowing to gravity via PICC after insertion. Sterile dressing applied: Tegaderm and Biopatch. Findings: The patient did tolerate the procedure well. No Complications. Procedure Comments: EDVIN BRIAN RN 12/16/2012 * James Kemp MD - 12/14/2012 5:40 PM EDTProcedure(s): PRO INSERT NON- TUNNELED CENTRAL VENOUS CATH, AGE 3 OR OLDER VIR PROCEDURE NOTE ACC#: [id number] PROCEDURE: Non-tunneled right internal jugular triple lumen pheresis catheter placement. INDICATION: New onset TTP for plasmapheresis. TECHNIQUE: After discussing the risks (including infection, hemorrhage, occlusion) and benefits, patient consented to the procedure and moderate sedation. Due to the painful nature of the procedure, split doses of fentanyl were administered by the IR nurse during continuous monitoring of pulse, blood pressure and oxygen saturation. Maximal sterile barrier technique was utilized. After sterile preparation of the right neck and upper chest, ultrasound was used to localize the right internal jugular vein. 1% lidocaine SQ was administered for anesthesia, and a 21 ga needle was advanced under ultrasound guidance into the right IJ and a 0.018 inch wire was advanced into SVC. A 5 Fr introducer sheath was placed and the wire exchanged for a 0.035 inch wire. Venotomy was dilated to accommodate the pheresis catheter. The catheter was advanced into the right atrium under fluoroscopic guidance, and the wire was removed. All ports flushed and aspirated well. Spot image obtained. Line was sutured into place using 2-0 prolene. Patien t tolerated the procedure well. There were no immediate complications. Medications: 100 mcg fentanyl. Fluoro time: 0.4 mins Device: Triple lumen nontunnled pheresis catheter IMPRESSION: Placement of non-tunneled right internal jugular triple lumen pheresis catheter, catheter tip at right atrium. Catheter ready for use. Resident: James Ventura MD Attending: Dr. Justo MD I, Dr. Kemp, was present throughout the procedure. documented in this encounter Miscellaneous Notes * Plan of Care - Savana Aparicio - 12/27/2012 4:03 PM EDT Problem: Pain, Acute (Adult, Obstetric) Goal: Acute Pain: Acceptable Pain Control/Comfort Level - Pain, Acute (Adult, Obstetric) Outcome: Therapy, goal met Date Met: 12/27/12 Pt. States neck pain resolved with heating pad. Pt c/o 8/10 headache this am. Received 2 mg morphine IV. 6/10 upon reassessment. Tylenol dose increased to 1000mg. 0/10 upon reassessment. Had episodesof emesis this morning. Given IV zofran and compazine. Poor appetite since. Will continue to monitor. Problem: Trauma/Injury Risk (Adult, Obstetric) Goal: Trauma/Injury Risk: Absence of Trauma/Injury/Falls Outcome: Therapy, goal met Date Met: 12/27/12 Pt. OOB independently with walker. Calls appropriately for assistance. Alert and oriented. Purposeful hourly rounding continues. * Consult Note - Taty Khan RN - 12/27/2012 8:06 AM EDT Peripherally Inserted Central Catheter (PICC) Teaching Sheet Peripherally inserted central catheters (apni-pb-dvhv) (PICC) are used when you need IV (intravenous) medicines and fluids. A catheter is a small flexible plastic tube. The catheter is put in througha vein under your skin. A vein is a tube inside your body that carries blood from the body to the heart. The catheter is usually put into a vein on the inside of your upper arm. Then it is threaded up this vein and ends in the blood vessel near your heart. The PICC catheter may be used for taking blood for laboratory tests. You may also get IV fluids andmedicines quickly and easily. Having the catheter may keep your arm from being stuck many times with a needle. The catheter will have 1-3 small tails (tubes) coming from your arm where the catheter was put in. Why do I need a PICC line or midline catheter? PICC lines are used for nursing home treatments. PICC lines may be used for up to a year. They areoften put in to give you IV medicines at home. You may need a PICC catheter because caregivers cannot use smaller veins in your body. Smaller veins may be damaged, or they may have poor blood flow. ??? Catheters are also used in case of emergency when you would need medicines or fluids very quickly. ??? The following are medicines and treatments you may get when you have a PICC line. ?? Antibiotics. These are medicines to prevent infection. ?? Frequent blood sample collection. ?? IV medicines that would make your smaller veins sore or damaged. ?? Receiving IV fluids for a long period of time. ?? Pain medicine. ?? Total Parenteral Nutrition: This is also called TPN. TPN is a special liquid food that goes directly into your veins. ?? Blood ?? Chemotherapy (Medicine for cancer) What are the benefits of having a PICC line put in? Having a PICC line may keep your arm from being stuck many times with a needle to draw blood orstart an IV (intravenous catheter) . ??? Through a PICC catheter, you may have blood taken for tests. You may also get IV fluids and medicines quickly and easily. ??? Small veins can be damaged or irritated by certain drugs or nutritional solutions. A PICC line helps to decrease vein irritation from antibiotics, IV pain drugs, or IV cancer drugs. ??? A PICC line can be left in place when you go home. If you go home with a PICC line in place, home care can be set up via the nurse Process Environmental Technician to help you. What are possible complications of having a PICC line put in? Some possible complications are: ??? bruising, swelling, or infection in the arm with the PICC line ??? mal-positioned catheter (catheter tip in wrong place) ??? occlusion (blocked catheter) ??? mechanical phlebitis (vein irritation) and thrombosis (clot) Your doctor is the person you should talk to if you have questions about what would happen if you do not choose to have a PICC line put in. Your doctor can talk to you about other choices you may have. What should I expect when it is put in? A written consent that gives your ok to have it put in needs to be signed after you understand thatyou are going to have a PICC put in, and all your questions about the procedure have been answered to your satisfaction. This is a safety feature that the hospital practices before doing procedures. An experienced nurse who has been through special training and education will be putting this catheter in. The procedure is done in a specially equipped room in Interventional Radiology on the third floor. The PICC nurse will first talk to you about any questions that you may have. The PICC nurse will explain to you what is going to be done before starting. Once you arrive in the procedure room in Interventional Radiology, the PICC nurse will then set up for the procedure. She will unwrap the sterile kit and open the needed supplies. A gown and mask andgloves will be worn while putting it in. An ultrasound machine will be used to help guide the catheter in the right place. This machine uses a handle with sound waves to find the vein. The area on your arm where the catheter will be put in is then numbed with a medicine put under your skin with a tiny needle. The nurse will then put in the catheter using fluoroscopy (a type of x-ray) as a guide. Once the catheter is in your vein, it will be threaded up your arm to the area beforeyour heart. While it is being threaded, you may be asked to turn your head. When the catheter is in, the nurse will place a small dressing on the site along with a little antonio which will help keep the catheter in place. After the procedure is done, a radiologist (doctor in x-ray department) will look at your x-ray to make sure that the end of the catheter is in proper position to give your fluids and/or medications. What should I expect in the care of my PICC? A dressing that is specially made to prevent infections will be put on. After this, the dressing will only be changed once a week unless it needs it sooner. If you go home with the catheter in, you may take a shower as long as you keep the site dry. You can do this by wearing a specially fitted PICC protector that will be provided to you before dischargefrom the hospital. The dressing at the site must be kept clean and dry. It is important that you watch for signs of infection at the site. Your healthcare provider should be notified if these occur: ??? Redness ??? Swelling ??? Pus ??? Pain at the site Other reasons to notify your healthcare provider are: ??? Catheter becomes partially or totally removed ??? Unable to infuse medication/fluid ??? Unable to draw back blood from the catheter. This may be an early sign that a clot is forming on the end of the catheter. If this occurs, a medicine called Cathflo may be used to dissolve this clot. Ask the PICC nurse or your doctor, any questions you may have so you feel secure in consenting to having a PICC line. References: Vascular Access Device Selection, Insertion, and Management, [employer] 03/15. A Review of the Efficacy, Safety, Use, and Administration of Cathflo, [employer] 2005 * Plan of Care - Alicia Rodriguez RN - 12/27/2012 1:27 AM EDT Problem: Pain, Acute (Adult, Obstetric) Goal: Acute Pain: Acceptable Pain Control/Comfort Level - Pain, Acute (Adult, Obstetric) Outcome: Present (see interventions, notes) Patient received 2 mg IV morphine prior to bed for 6/10 pain. Patient described as pulsating, mostly in R sikh but neck aching as well. Heating pad to neck. Appears to be sleeping comfortably on reassessment. Woke up at 0400 with 10/10 pain, dry heaving. Administered 2 mg IV morphine with no relief after 30 minutes, administered another 2 mg and applied cool cloth to forehead. Patient tearful, reassurance provided. States that she had been sleeping fairly well up to that point, woke up a few times with mild headache but had been tolerable. Will continue to monitor. Problem: Trauma/Injury Risk (Adult, Obstetric) Goal: Trauma/Injury Risk: Absence of Trauma/Injury/Falls Outcome: Absent and monitoring Patient A&O, calls appropriately for assistance, up independently with walker in room. Remains free of falls/injuries this shift. Will continue to monitor. Comments: Continues with 2+ pitting edema to bilateral feet. Palpable pedal pulses. No numbness or tingling. 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 Will continue to monitor. Pt dry heaving at 0400, resolved without intervention and pt declined anti- emetics. Awoke again at 0650 with dry heaves, administered 4 mg zofran IV. Will continue to monitor. * Plan of Care - Savana Aparicio - 12/26/2012 4:27 PM EDT Problem: Pain, Acute (Adult, Obstetric) Goal: Acute Pain: Acceptable Pain Control/Comfort Level - Pain, Acute (Adult, Obstetric) Outcome: Present (see interventions, notes) Pt c/o 8/10 neck ache radiating into head. Pain 2/10 after 2mg IV morphine. Received tylenol for 8/10 neck pain radiating into head this evening. Heating pad recommended to pt. Ordered, and in use bypt. Will continue to monitor. Problem: Trauma/Injury Risk (Adult, Obstetric) Goal: Trauma/Injury Risk: Absence of Trauma/Injury/Falls Outcome: Present (see interventions, notes) Patient ambulates independently w/ walker. Uses call light appropriately. Steady gait. Purposeful hourly rounding continued. * Plan of Care - Faby Walton RN - 12/26/2012 8:44 AM EDT Problem: Pain, Acute (Adult, Obstetric) Goal: Acute Pain: Acceptable Pain Control/Comfort Level - Pain, Acute (Adult, Obstetric) Outcome: Absent and monitoring Given Tylenol for SWIFT on previous shift. Sleeping @ start of shift. No c/o of pain. Cont to monitor. Problem: Trauma/Injury Risk (Adult, Obstetric) Goal: Trauma/Injury Risk: Absence of Trauma/Injury/Falls Outcome: Outcome achieved Date Met: 12/26/12 OOB amb in rm independently with walker. Steady on feet. Using call light appropriately. Cont with hourly rounding. * Plan of Care - Faby Walton RN - 12/26/2012 3:14 AM EDT Problem: Trauma/Injury Risk (Adult, Obstetric) Goal: Trauma/Injury Risk: Absence of Trauma/Injury/Falls Outcome: Absent and monitoring OOB amb to BR with walker and 1 assist. Steady on feet. Positions self independently in bed. Uses call light appropriately. Cont with purposeful rounding. * Plan of Care - Alicia Rodriguez RN - 12/25/2012 7:05 PM EDT Problem: Pain, Acute (Adult, Obstetric) Goal: Acute Pain: Acceptable Pain Control/Comfort Level - Pain, Acute (Adult, Obstetric) Outcome: Present (see interventions, notes) Patient c/o head and R sided neck ache, 03/20. MD notified. Received 2 mg IV morphine with good relief. Patient with residual headache several hours later, received 500 mg tylenol. Will continue to monitor. Problem: Trauma/Injury Risk (Adult, Obstetric) Goal: Trauma/Injury Risk: Absence of Trauma/Injury/Falls Outcome: Absent and monitoring Patient A&O, calls appropriately for assistance, up independently with walker while in room. Remains free of falls/injuries this shift. Will continue to monitor. * Plan of Care - Yeimi Carrasco RN - 12/25/2012 4:30 AM EDT Problem: Pain, Acute (Adult, Obstetric) Goal: Acute Pain: Acceptable Pain Control/Comfort Level - Pain, Acute (Adult, Obstetric) Outcome: Present (see interventions, notes) Patient reports abd pain improving, now described as mild tenderness. No prn pain medication neededthis shift to control abd pain. Patient with complaint of headache relieved with one dose of tylenol. Will continue to assess pain level t/o shift, patient encouraged to notify staff if pain should increase or if medication is needed. Patient verbalized understanding. Problem: Trauma/Injury Risk (Adult, Obstetric) Goal: Trauma/Injury Risk: Absence of Trauma/Injury/Falls Outcome: Absent and monitoring Fall precautions maintained t/o shift. Patient ambulating in room with standby assist and use of walker. Gait steady. * Plan of Care - Alejandrina Sher RN - 12/24/2012 5:59 PM EDT Problem: Trauma/Injury Risk (Adult, Obstetric) Goal: Trauma/Injury Risk: Absence of Trauma/Injury/Falls Outcome: Absent and monitoring Patient ambulated to chapel and back 3 times with standby assist and walker. Patient calls appropriately and makes needs known to staff. Problem: Hemolytic Uremic Syndrome (Pediatric) Goal: Prevent/Manage Potential Problems Based on my scope of practice, I assessed for signs and symptoms of potential problems that could be present as documented. Outcome: Absent and monitoring HD catheter removed by . Dressing C.D.I. Peripheral IV placed per order. * Plan of Care - Yeimi Carrasco RN - 12/24/2012 4:08 AM EDT Problem: Pain, Acute (Adult, Obstetric) Goal: Acute Pain: Acceptable Pain Control/Comfort Level - Pain, Acute (Adult, Obstetric) Outcome: Present (see interventions, notes) Patient woke with 8/10 neck and abd pain - relief with prn tylenol dose. Encouraged patient to notify RN before pain became severe, verbalized understanding. Encouraged repositioning to relieve neck pain. Problem: Trauma/Injury Risk (Adult, Obstetric) Goal: Trauma/Injury Risk: Absence of Trauma/Injury/Falls Outcome: Absent and monitoring Fall precautions maintained t/o shift. Patient called for staff assistance before ambulating appropriately. Ambulated in room with walker and standby assist. Patient reports feeling stronger while ambulating. * Plan of Care - Alejandrina Sher RN - 12/23/2012 1:10 PM EDT Problem: Pain, Acute (Adult, Obstetric) Goal: Acute Pain: Acceptable Pain Control/Comfort Level - Pain, Acute (Adult, Obstetric) Outcome: Present (see interventions, notes) Pain present during dialysis. Tylenol 500 administered. Patient unable to have narcotics due to recent AMS. Problem: Trauma/Injury Risk (Adult, Obstetric) Goal: Trauma/Injury Risk: Absence of Trauma/Injury/Falls Outcome: Absent and monitoring Patient calls appropriately and makes needs known to staff. Patient calls for assist OOB. Patient supports own weight, though MS movement is still mildly jerky Problem: Hemolytic Uremic Syndrome (Pediatric) Goal: Prevent/Manage Potential Problems Based on my scope of practice, I assessed for signs and symptoms of potential problems that could be present as documented. Outcome: Absent and monitoring Patient received 1 U PRBC started on floor, finished in dialysis. Patient tolerated. Day 3 of 3 HD done and tolerated. * Plan of Care - Arsenio Moon - 12/23/2012 1:48 AM EDT Problem: Pain, Acute (Adult, Obstetric) Goal: Acute Pain: Acceptable Pain Control/Comfort Level - Pain, Acute (Adult, Obstetric) Outcome: Absent and monitoring One episode of abdominal pain reported. aware. Problem: Trauma/Injury Risk (Adult, Obstetric) Goal: Trauma/Injury Risk: Absence of Trauma/Injury/Falls Outcome: Absent and monitoring Uses call tobias appropriately. Able to make wants and needs known to staff. * Miscellaneous - Provider, Scanning - 12/22/2012 9:36 PM EDT * Plan of Care - Alejandrina Shre RN - 12/22/2012 11:28 AM EDT Problem: Trauma/Injury Risk (Adult, Obstetric) Goal: Trauma/Injury Risk: Absence of Trauma/Injury/Falls Outcome: Present (see interventions, notes) Patient alert and oriented and makes needs known to staff. Patient MS movement is still spastic. Patient supports own weight during transfer and accepts 2 assist. Patient wears non slip socks when out of bed. Problem: Hemolytic Uremic Syndrome (Pediatric) Goal: Prevent/Manage Potential Problems Based on my scope of practice, I assessed for signs and symptoms of potential problems that could be present as documented. Outcome: Present (see interventions, notes) Patient appetite improved. Bedside dialysis being done. Patient to have off floor dialysis in AM (~0800). Patient neurological symptoms improving. No noticeable cognitive deficit. Muscle movement is hyper reflexive/spastic. Patient having loose dark stools, heme negative. Creatine down to 1.53. 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 She has been alert and oriented X 4, and has appeared to sleep well. * Plan of Care - Odalis Lora RN - 12/21/2012 8:35 PM EDT Problem: Pain, Acute (Adult, Obstetric) Goal: Acute Pain: Acceptable Pain Control/Comfort Level - Pain, Acute (Adult, Obstetric) Outcome: Absent and monitoring Patient c/o epigastric pain once today. Tylenol given with relief. Patient denied pain the rest of the shift. Problem: Trauma/Injury Risk (Adult, Obstetric) Goal: Trauma/Injury Risk: Absence of Trauma/Injury/Falls Outcome: Absent and monitoring Patient up to bedside commode with 2 person assist. Patient swinging her feet out of bed but not attempting to get OOB. Bed alarm on at all times. Patient's daughter and were at the bedside all shift. Problem: Hemolytic Uremic Syndrome (Pediatric) Goal: Prevent/Manage Potential Problems Based on my scope of practice, I assessed for signs and symptoms of potential problems that could be present as documented. Outcome: Present (see interventions, notes) Patient intermittently confused. Patient disoriented x place, situation, and date most of the shift. Patient with involuntary jerky upper and lower extremity movements. Patient unable to hold a cup but able to follow commands. Neurology in to see patient and repeat MRI done. Patient with +fluid balance. Lasix given with good effect. Patient receiving bedside dialysis at change of shift. Patient with poor appetite, eating very little. Patient with several soft, heme (-) stools today. Patient's PICC and R IJ cultured today, antibiotics given as ordered. TMax 37.5 * Consult Note - Arturo Moreno MD - 12/21/2012 1:11 PM EDT Neurology Inpatient Consult Note Patient name:Anum Henriquez Date of :1960 Admit date: 12/13/2012 Attending: Dr Arturo Moreno We have been asked to see Anum Henriquez by Dr. Ohara for acute confusion and apparent myoclonus HPI: Anum Henriquez is a 52 y.o. female with PMH of Graves disease initially admitted in transfer from [facility] with hemorrhagic colitis and thrombocytopenia on 12/13/2012. She has been treated for TTP-HUS given presence of schistocytes, renal insufficiency and confusion. She had been receiving daily plasma exchange since admission and yesterday developed an acute change in mental status. The acute mental status change began Sunday evening and patient was noted to have myoclonic jerks. The patient's temperature was elevated, 100.4 Tmax, HR 90s-100s, RR mid 20's. Blood culture and urine culture was obtained and she was started on broad spectrum antibiotics. Blood and urine cultures grew Staph aureus in less than 24 hours. She states that she developed intermittent double vision andhad visual disturbances described as black buckets and lines coming out of the wall. She reportedlywas speaking in jibberish as recounted by family and nursing staff overnight. She also reports biting of lips for past two days and reportedly was confused as to why she was at the hospital previously. At the time I saw her, family stated that she looked much better and was able to converse with them without issue. She stated that she felt improved and she felt that her vision had improved. She received lorazepam 0.5 mg x3 over the evening due to anxiety. Past Medical History: Graves disease No past surgical history on file. Medications: Scheduled Meds: ??? potassium chloride 20 mEq Oral BID ??? potassium chloride 20 mEq Intravenous Q2H ??? magnesium oxide 400 mg Oral BID ??? furosemide 40 mg Intravenous Once ??? Vancomycin Level - MAR Order Reminder NOT APPLICABLE Once ??? potassium chloride 20 mEq Intravenous Q2H ??? esomeprazole 40 mg Intravenous BID ??? LORazepam 1 mg Intravenous Once ??? piperacillin-tazobactam 3.375 g Intravenous Q8H ??? vancomycin 1 g Intravenous Q24H ??? furosemide 40 mg Intravenous Once ??? DISCONTD: vancomycin 1 g Intravenous Q12H ??? folic acid 1 mg Oral Daily ??? chlorhexidine 15 mL Oral BID ??? sodium chloride 0.9 % 5 mL Intravenous Q12H Continuous Infusions: PRN Meds:.haloperidol lactate, DISCONTD: Vancomycin Level - MAR Order Reminder, DISCONTD: Vancomycin Level - MAR Order Reminder, DISCONTD: LORazepam, ondansetron, ondansetron, DISCONTD: diphenhydrAMINE, benzocaine, DISCONTD: HYDROmorphone, acetaminophen, prochlorperazine, prochlorperazine, DISCONTD: zolpidem Allergies: Allergies Allergen Reactions ??? Erythromycin Base Family history: No family history on file. Social history: History Social History ??? Marital Status: Spouse Name: N/A Number of Children: N/A ??? Years of Education: N/A Occupational History ??? Not on file. Social History Main Topics ??? Smoking status: Former Smoker Quit date: 06/15/1978 ??? Smokeless tobacco: Never Used ??? Alcohol Use: Yes socially ??? Drug Use: No ??? Sexually Active: Other Topics Concern ??? Not on file Social History Narrative ??? No narrative on file Review of systems: Constitutional: No subjective fevers or chills Eyes: No vision changes, no diplopia, no blurry vision ENT: No rhinorrhea or pharyngitis, no meningismus CV: No chest pain or palpitations Resp: No cough, no shortness of breath GI: No nausea, vomiting, diarrhea or constipation : No dysuria, no incontinence Heme: No bleeding or bruising Endo: No diabetes or thyroid disease Neuro: See HPI Psych: No depression, normal sleep [x] Review of systems otherwise negative Physical Exam: Filed Vitals: 12/21/12 1105 BP: Pulse: Temp: 37.5 ??C (99.5 ??F) Resp: General: alert, NAD HEENT: oral mucosa moist, no thrush, no carotid bruits, no thyromegaly, no lymphadenopathy Heart: RRR S1S2 no murmur Lungs: CTAB symmetric expansion, no w/r/r Abd: soft, +BS, tenderness in epigastric region Ext: 2+ lower extremity edema, adequate pulses Neuro exam: MSE: alert, oriented to person, place, situation but not to time, follows simple and complex commands, speech fluent with no dysarthria, able to repeat a sentence, names objects CN: PERRL, some mild end-point nystagmus, EOMI, visual becker intact to confrontation, facial sensation intact, no facial droop or asymmetry, tongue protrudes midline, uvula and palate elevate symmetrically Motor: Upper and lower extremities exhibit 5/5 in strength Normal bulk and tone Reflexes 3+ bilat biceps, brachioradialis, triceps 3+ bilat patella, achilles downgoing toes Sensation: intact light touch diffusely Coordination: evident tremor at rest and augmented with intention, decreased coordination in rapid alternating movements. Gait: not assessed Labs: Recent Results (from the past 24 hour(s)) BASIC METABOLIC PANEL (NON-FASTING) Component Value Range Glucose Lvl 103 60 - 199 mg/dL BUN 34 (*) 8 - 18 mg/dL Creatinine 1.86 (*) 0.70 - 1.20 mg/dL Sodium 139 135 - 145 mmol/L Potassium 3.9 3.5 - 5.0 mmol/L Chloride 100 98 - 107 mmol/L CO2 27 22 - 31 mmol/L Anion Gap 12 5 - 15 mmol/L Calcium 8.2 (*) 8.5 - 10.5 mg/dL Estimated GFR 28 (*) >=60 CBC (WITH DIFF) Component Value Range WBC 12.4 (*) 4.0 - 10.0 x10(3)/mcL RBC 2.43 (*) 3.93 - 5.22 x10(6)/mcL Hemoglobin 7.1 (*) 11.2 - 15.7 gm/dL Hematocrit 21.4 (*) 34.0 - 45.0 % MCV 88.1 79.0 - 94.0 fL MCH 29.2 26.6 - 32.2 pg MCHC 33.2 32.0 - 36.5 gm/dL Platelets 138 (*) 145 - 370 x10(3)/mcL RDWSD 43.9 35.0 - 46.0 fL RDWCV 14.5 (*) 10.9 - 14.4 % MPV 10.2 9.0 - 12.0 fL PROTHROMBIN TIME Component Value Range PT 17.1 (*) 12.0 - 15.0 sec INR 1.4 (*) 0.9 - 1.1 APTT Component Value Range PTT 41 (*) 25 - 35 sec DIFFERENTIAL, AUTOMATED Component Value Range Neutrophils % 88.7 (*) 34.0 - 71.0 % Neutr Abs (ANC) 10.97 (*) 1.50 - 6.30 x10(3)/mcL Lymphocytes % 3.2 (*) 19.0 - 53.0 % Lymphocytes Abs 0.4 (*) 1.0 - 3.6 x10(3)/mcL Monocytes % 6.9 4.0 - 13.0 % Monocyte Abs 0.9 0.2 - 1.0 x10(3)/mcL Eosinophils % 1.0 0.0 - 7.0 % Eosinophils Abs 0.1 0.0 - 0.5 x10(3)/mcL Basophils % 0.0 0.0 - 2.0 % Basophils Abs 0.0 0.0 - 0.2 x10(3)/mcL Immature Gran % 0.20 0.00 - 0.66 % Petty Gran Abs 0.03 0.00 - 0.05 x10(3)/mcL SCAN, PERIPHERAL BLOOD Component Value Range Plat Estimate Normal RBC Morphology Abnormal Microcytes 1-5 Schistocytes 1-5 MAGNESIUM Component Value Range Magnesium 0.66 (*) 0.69 - 1.07 mmol/L BLOOD CULTURE Component Value Range Blood Culture Value: Patient Name: ANUM HENRIQUEZ Ordered By: ANKIT OHARA MR#: [id number] LOC: 1WST /Sex: 1960 (52 years), Female PROCEDURE: Blood Culture SOURCE: Blood COLLECTED: 12/20/2012 15:40 STARTED: 12/20/2012 16:07 STAINS / PREPARATIONS Bottle Gram Stain Verified:12/21/2012 10:07 Growth detected in anaerobic bottle. Gram Positive Cocci in clusters seen Bottle Gram Stain Verified:12/21/2012 07:29 Growth detected in aerobic bottle. Gram Positive Cocci in clusters seen Results called to and read back by Dr. Cervantes 12/21/2012 07:28:58 PRELIMINARY REPORT Preliminary Report Verified:12/21/2012 09:44 Staphylococcus aureus isolated URINALYSIS WITH MICROSCOPIC Component Value Range Glucose UA Negative Negative mg/dL Protein UA 100 (*) Neg mg/dL Bilirubin UA Negative Negative mg/dL Urobilinogen UA Normal pH UA 6.0 5.0 - 8.0 Blood UA Moderate Ketones UA Trace (*) Neg mg/dL Nitrite UA Negative Leukocytes UA Negative Appearance UA Clear Clear Spec [place] UA 1.007 1.002 - 1.030 Color UA Light Yellow Yellow RBC UA 8 (*) 0 - 4 /HPF WBC UA 6 (*) 0 - 5 /HPF Gran Cast UA 2 (*) <=0 /LPF PRO-BRAIN NATRIURETIC PEPTIDE Component Value Range ProBNP 2411 (*) <=125 pg/mL URINE CULTURE Component Value Range Urine Culture Value: Patient Name: ANUM HENRIQUEZ Ordered By: ANKIT OHARA MR#: [id number] LOC: 1WS /Sex: 1960 (52 years), Female PROCEDURE: Urine Culture SOURCE: U ICath COLLECTED: 12/20/2012 16:49 STARTED: 12/20/2012 17:07 PRELIMINARY REPORT Preliminary Report Verified:12/21/2012 12:39 Greater than 100,000 cfu/ml Staphylococcus aureus BLOOD CULTURE Component Value Range Blood Culture Value: Patient Name: ANUM HENRIQUEZ Ordered By: ANKIT OHARA MR#: [id number] LOC: WS /Sex: 1960 (52 years), Female PROCEDURE: Blood Culture SOURCE: Blood COLLECTED: 12/20/2012 17:00 FREE TEXT SOURCE: L ARM STARTED: 12/20/2012 17:14 STAINS / PREPARATIONS Bottle Gram Stain Verified:12/21/2012 12:09 Growth detected in anaerobic bottle. Gram Positive Cocci in clusters seen Bottle Gram Stain Verified:12/21/2012 07:29 Growth detected in aerobic bottle. Gram Positive Cocci in clusters seen Results called to and read back by Dr. Cervantes 12/21/2012 07:29:12 PREPARE RBC Component Value Range Dispensed? Yes CBC (WITH DIFF) Component Value Range WBC 17.8 (*) 4.0 - 10.0 x10(3)/mcL RBC 2.49 (*) 3.93 - 5.22 x10(6)/mcL Hemoglobin 7.7 (*) 11.2 - 15.7 gm/dL Hematocrit 22.4 (*) 34.0 - 45.0 % MCV 90.0 79.0 - 94.0 fL MCH 30.9 26.6 - 32.2 pg MCHC 34.4 32.0 - 36.5 gm/dL Platelets 158 145 - 370 x10(3)/mcL RDWSD 46.5 (*) 35.0 - 46.0 fL RDWCV 14.7 (*) 10.9 - 14.4 % MPV 10.8 9.0 - 12.0 fL BASIC METABOLIC PANEL (NON-FASTING) Component Value Range Glucose Lvl 102 60 - 199 mg/dL BUN 33 (*) 8 - 18 mg/dL Creatinine 2.29 (*) 0.70 - 1.20 mg/dL Sodium 137 135 - 145 mmol/L Potassium 3.1 (*) 3.5 - 5.0 mmol/L Chloride 97 (*) 98 - 107 mmol/L CO2 27 22 - 31 mmol/L Anion Gap 13 5 - 15 mmol/L Calcium 7.9 (*) 8.5 - 10.5 mg/dL Estimated GFR 22 (*) >=60 LACTATE DEHYDROGENASE Component Value Range LDH 237 (*) 110 - 220 unit/L MAGNESIUM Component Value Range Magnesium 0.66 (*) 0.69 - 1.07 mmol/L PHOSPHORUS Component Value Range Phosphorus 4.1 2.5 - 4.5 mg/dL DIFFERENTIAL, MANUAL Component Value Range Neutrophil % 91 (*) 34 - 71 % Band % 5 0 - 12 % Lymphocyte % 4 (*) 19 - 53 % Neutrophil Abs 16.2 (*) 1.5 - 6.3 x10(3)/mcL Band Abs 0.9 (*) 0.2 - 0.6 x10(3)/mcL Neutr Abs (ANC) 17.07 (*) 1.50 - 6.30 x10(3)/mcL Lymphocyte Abs 0.7 (*) 1.0 - 3.6 x10(3)/mcL Tot Diff Cell Ct 100 Plat Estimate Normal RBC Morphology Abnormal Schistocytes 1-5 Diagnostic Tests and Imaging: MRI Brain: Abnormal diffusion in the bilateral centrum semiovale associated with probable abnormal signal in the bilateral basal ganglia. These findings are subtle and nonspecific, but can be seen in setting of toxic metabolic processes, especially given the symmetry. The findings in the deep white matter and corpus callosum raises the possibility of acute demyelination. The findings are not characteristic of a vasculitis or cerebritis. Follow up imaging could be helpful to see how these changes evolve. Assessment: Anum Henriquez is a 52 y.o. 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 MRI appearance confirms this as a likely cause for the patient's symptoms. As the metabolic derangements improve, the patient's myoclonus, visual disturbances as well as confusion should resolve.If the patient develops any worsening, develops stiff neck or stupor it would be reasonable to get an LP. Plan: Toxic metabolic encephalitis - Monitor electrolytes closely, bid - Correct abnormalities in K, Mg - Monitor temperature, vitals - Continue antibiotics to treat apparent infection - Avoid benzodiazepines/deliritous medications Raad Aleman MD PGY-2 Neurology Resident Personal Pager [phone] Consult Pager [phone] Addendum: I saw and evaluated the patient with Dr. Aleman. I have reviewed the medical records and history during the evaluation and agree with the details as written. The assessment and plan were formulated in discussion with me at the time of the visit and I agree with them as documented.I agree this is mostlikely a multifactorial toxi-metabolic encephalopathy. * Plan of Care - Dyana Lee RN - 12/21/2012 6:21 AM EDT Pt will not receive pheresis today, per team. Labs delayed r/t completion of blood transfusion, will be drawn prior to 0700. Ativan given per pt request for anxiety. Pt able to answer yes/no/direct questions if repeated and active listening used. Family at bedside. Pt appears to be slightly more clear, neurologically, since beginning of shift though difficult to quantify re orientation questions/assessments. Pt having tremors/spastic motions jeff UE and LE, though UE>LE. Red lumen on PICC labeled as being used to run vancomycin. Problem: Pain, Acute (Adult, Obstetric) Goal: Acute Pain: Acceptable Pain Control/Comfort Level - Pain, Acute (Adult, Obstetric) Outcome: Absent and monitoring Pt denies pain throughout shift. Continue purposeful rounding to anticipate and treat pain as appropriate. Problem: Trauma/Injury Risk (Adult, Obstetric) Goal: Trauma/Injury Risk: Absence of Trauma/Injury/Falls Outcome: Absent and monitoring Family at bedside, bed alarm activated. Pt does not ring for assistance but with repeated, direct questioning is able to make wants and needs known. SBA with stand/pivot to bedside commode. Pt independent with bed mobility. Spastic motions/tremors noted jeff upper/lower extremities. Continue purposeful rounding to anticipate patient needs. Problem: Hemolytic Uremic Syndrome (Pediatric) Goal: Prevent/Manage Potential Problems Based on my scope of practice, I assessed for signs and symptoms of potential problems that could be present as documented. Outcome: Absent and monitoring See mar for details re med administration. Blood given s/p antibiotic completion, blood reordered, run over 4 hrs per team orders. Em intact, draining CYU. Jeff LE edema. Pt weaned to 3L NC (95%). * Plan of Care - Erika Tracy RN - 12/20/2012 7:54 PM EDT Problem: Pain, Acute (Adult, Obstetric) Goal: Acute Pain: Acceptable Pain Control/Comfort Level - Pain, Acute (Adult, Obstetric) Outcome: Present (see interventions, notes) Pt. C/o pain to site of pheresis cath., relayed complaint to pheresis RN today, biopatch to site issaturated w/blood, pigtail flushes and draws briskly. Problem: Trauma/Injury Risk (Adult, Obstetric) Goal: Trauma/Injury Risk: Absence of Trauma/Injury/Falls Outcome: Present (see interventions, notes) Pt. Calls for assist, though she has been intermittently confused this shift w/family present most of day. MD's aware of pt. Confusion, increasing over this course of this afternoon Problem: Hemolytic Uremic Syndrome (Pediatric) Goal: Prevent/Manage Potential Problems Based on my scope of practice, I assessed for signs and symptoms of potential problems that could be present as documented. Outcome: Present (see interventions, notes) Pt. Has not eaten today other than a couple bites of popsicle and sips of water Comments: Pt. Received plasma pheresis this AM, as well as albumin, later became confused, 02 desats, Pt. Wasplaced on 6 L O2 via n/c, RT was called and present, MD's were called and present. Several labs were drawn, port. CXR, EKG, pt. Was very anxious, received 0.5mg IV ativan which helped w/anxiety. Pt. Has em to gravity. She later became febrile, just prior to scheduled blood transfusion, blood was returned to blood bank. Pt. Was later worked up for reaction r/t pheresis. Will receive blood transfusion later this sharifa. Over 4 hours per MD order She has begun on zosyn and vancomycin * Plan of Care - Yeimi Carrasco RN - 12/20/2012 3:44 AM EDT Problem: Pain, Acute (Adult, Obstetric) Goal: Acute Pain: Acceptable Pain Control/Comfort Level - Pain, Acute (Adult, Obstetric) Outcome: Present (see interventions, notes) Patient c/o abd pain, required two doses of prn dilaudid overnight with relief of symptom. No others/s of pain noted. Problem: Trauma/Injury Risk (Adult, Obstetric) Goal: Trauma/Injury Risk: Absence of Trauma/Injury/Falls Outcome: Absent and monitoring Fall precautions maintained t/o shift. Patient remained on bedrest this shift, gait not assessed. * Plan of Care - Divina Alfred RN - 12/19/2012 4:21 PM EDT Problem: Pain, Acute (Adult, Obstetric) Goal: Acute Pain: Acceptable Pain Control/Comfort Level - Pain, Acute (Adult, Obstetric) Outcome: Present (see interventions, notes) C/O headache this morning during plasmapheresis rated 10/10. Pt stated that she did not want to take dilaudid b/c she did not like the way it makes her feel & wanted to take something gentler. Medicated with tylenol 500 mg po & stated headache reduced a little. Pt then agreed to take dilaudid but wanted to wait until the effects of benadryl wore off. Cool cloth to forehead for comfort. Headache then subsided & pt did not need further intervention. No abdominal pain this shift. Will continue to assess comfort level & offer intervention as needed. Problem: Trauma/Injury Risk (Adult, Obstetric) Goal: Trauma/Injury Risk: Absence of Trauma/Injury/Falls Outcome: Absent and monitoring OOB to commode with walker & 1 assist. Gait is very unsteady & pt continues to have spastic/jerky movements of extremities, grabbing for furniture impulsively. Pt's assisted pt to commode this morning. Talked with pt & pt's re: fall risk & reinforced not to get oob without assist of staff member. Call light within reach & pt has been calling appropriately t/o shift. Fall reduction program & purposeful hourly rounding maintained. Problem: Hemolytic Uremic Syndrome (Pediatric) Goal: Prevent/Manage Potential Problems Based on my scope of practice, I assessed for signs and symptoms of potential problems that could be present as documented. Outcome: Present (see interventions, notes) Plasmapheresis completed @ bedside this AM. Medicated with benadryl 25 mg IV prior to plasma exchange. Dose decreased from 50 mg to 25 mg as pt symptomatic with 50 mg dose becoming lethargic & having difficulty verbalizing needs. Pt tolerated 25 mg dose much better. BUN 41 Creatinine 2.19. Em catheter remains patent & draining clear yellow urine. Pt has bilateral 2+ pitting LE edema. La six 40 mg IV given as ordered with good urine output resulting. See I/O. Continues to experience loose melena stools. 2 episodes of loose stool this shift. No c/o abd pain. C/O nausea this AM. Pt hadreceived zofran 4 mg IV at change of shift with no relief. Compazine 10 mg po given with short termrelief. Pt reports that food tastes overly sweet & she feels nauseated after eating. Discussed increasing frequency of zofran with MD. No reports of further nausea @ this time. Will continue to assess. * Consult Note - Minor Kebede MD - 12/19/2012 10:32 AM EDT Patient Name: Anum Henriquez Patient Age: 52 y.o. 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 She reports feeling somewhat better but complains of tremors. Relevant inpatient medications: - No methimazole (last dose 12/16) PE (not fully examined as was receiving plasma exchange): - Vitals: 97.9, 130/70, 65 (range 60-70s last 24 hours), 18, 96% on RA - Gen: AAO x 3, NAD - HEENT: + stare - Neuro: + tremor Relevant Labs: 12/16/2012: - TSH: 3.68 - Free T4: 0.88 - ANCAs: Negative/WNL 12/19/2012: - Total T3: 58 - Total T4: Pending - Estimated free T4: 1.05 - TUP: 1.03 - Free thyroxine index: Pending Assessment: The patient is a 52-y/o lady with a PMH significant for Graves' disease (on methimazole) who was recently transferred from an outside hospital with concern for TTP/HUS, with Endocrinologyconsulted with the question of whether her presentation could be consistent with a methimazole-induced vasculitis. Please see the initial consult note for a full assessment. In short, given the negative ANCAs and high suspicion for TTP-HUS, a methimazole-induced vasculitis seems unlikely. However, given the high TSH and low free T4 and free T3, the patient was likely no longer requiring her low-dose methimazole treatment. Recommendations: - Continue to hold methimazole - Will f/u on total T4 and free thyroxine index once they return to ensure no biochemical evidence of return of hyperthyroidism - Would check total T4 (not free), TUP, and total T3 (not free) in one week to assess for worsening of her Graves' disease - Will need to have TSH, total T4 and TUP (or estimated free T4 if an outpatient), and total T3 checked again 1 month following the stopping of methimazole, if this occurs after discharge we will arrange for this to be done prior to an outpatient clinic visit - No need to start a beta-kirstie unless she were to develop symptoms or physical/lab signs concerning for hyperthyroidism (tremor likely related to her other medical issues and not hyperthyroidism, given lack of other signs/symptoms and normal labs) - Will continue to follow and leave notes if above recommendations change, please page with questions - Patient discussed with the attending Dr. Connolly, official recommendations to follow Minor Kebede MD Fellow, Endocrinology 12/19/2012 * Plan of Care - Chuyita Mehta RN - 12/19/2012 3:59 AM EDT Problem: Pain, Acute (Adult, Obstetric) Goal: Acute Pain: Acceptable Pain Control/Comfort Level - Pain, Acute (Adult, Obstetric) Outcome: Present (see interventions, notes) Patient complaining of a 9/10 headache early in morning. PRN dilaudid given x1, with good effect. Patient appears to be resting comfortably in bed with eyes closed. Will continue to monitor. Problem: Trauma/Injury Risk (Adult, Obstetric) Goal: Trauma/Injury Risk: Absence of Trauma/Injury/Falls Outcome: Absent and monitoring Patient alert and oriented. Call tobias within reach, patient calling approprietly. Family at bedsideover shift, assisting patient with needs. Patient out of bed to commode using 1 person assist. Patient very shaky and weak when returning bed, patient could use an additional person when getting up. Will continue to monitor. * Plan of Care - Yeimi Carrasco RN - 12/18/2012 4:32 PM EDT Problem: Pain, Acute (Adult, Obstetric) Goal: Acute Pain: Acceptable Pain Control/Comfort Level - Pain, Acute (Adult, Obstetric) Outcome: Absent and monitoring Patient without complaint of pain today. Problem: Trauma/Injury Risk (Adult, Obstetric) Goal: Trauma/Injury Risk: Absence of Trauma/Injury/Falls Outcome: Absent and monitoring Fall precautions maintained. Patient calls appropriately for staff support before ambulating. Notedto have unsteady gait, continues to require 1 assist for all ambulation. * Plan of Care - Zain Hall RN - 12/17/2012 8:47 PM EDT Problem: Pain, Acute (Adult, Obstetric) Goal: Acute Pain: Acceptable Pain Control/Comfort Level - Pain, Acute (Adult, Obstetric) Outcome: Present (see interventions, notes) Abdominal and headache relieved with Dilaudid IV per MAR. Problem: Trauma/Injury Risk (Adult, Obstetric) Goal: Trauma/Injury Risk: Absence of Trauma/Injury/Falls Outcome: Present (see interventions, notes) Unsteady gait, needs Assist with ambulation to bathroom. * Consult Note - Beck Paiz MD - 12/17/2012 5:04 PM EDT Gastroenterology Inpatient Consultation Patient ID: Anum Henriquez is a 52 y.o. female Consult Question to be Addressed: Evaluation for GI Sources of Blood Loss in setting of TTP-HUS Active Hospital Problem List Patient Active Problem List Diagnoses ??? ','Hemorrhagic colitis Overview Note: CT shows sparing of the sigmoid and rectum ??? TTP (thrombotic thrombocytopenic purpura) Overview Note: 12/2012 - presented with bloody diarrhea. Developed thrombocytopenia, DELVIS, microangiopathic hemolytic anemia acutely. Treatment: plasma exchange started 12/14/12. ??? Thrombocytopenia ??? Hyperthyroidism Overview Note: Graves disease stable on methimazole for 10+ years. HPI: Ms. Anum Henriquez is a 52yo female with PMH of hyperthyroidism on methimazole who [facility] with several days of abdominal pain and diarrhea that progressed from watery to bloody. 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 She was [place] [facility] [place] after 3 days at OSH (day 6 of illness) Labs on admission to [facility] were notable for WBC = 13, HgB 14.5, Plts 151 w/ fecal leukocytes in the stool and negative Cdiff studies. A drop in platelets (151 to 66) and bump in her creatinine prompted transfer to [facility] with concern for evolving TTP-HUS. Throughout her current illness, Ms. Henriquez has hemolyzed or lost through hemorrhage ~ 8g of hemoglobin. GI was consulted over concerns for ongoing loss of hemoglobin in a patient who has not had age appropriate colon cancer screening. Ms. Henriquez reports her diarrhea was loose, watery, brown for a few days, then became bloody just before she sought care at [facility]. After a few days at [facility], and just prior to transfer to [facility], she feels her diarrhea had improved somewhat and were becoming less bloody withmore substance. Over the past 24h, she has had 3 small brown soft bowel movements. She endorses some lingering abdominal pain but reports this is improved from the blayne of her illness at [facility]. She is most troubled now by shortness of breath, but denies chest pain and is currently comfortable with supplemental oxygen by nasal cannula. Allergies/Adverse reactions Erythromycin base Scheduled Meds: ??? furosemide 40 mg Intravenous Once ??? potassium chloride 40 mEq Oral BID ??? potassium chloride 20 mEq Intravenous Q2H ??? chlorhexidine 15 mL Oral BID ??? sodium chloride 0.9 % 5 mL Intravenous Q12H ??? esomeprazole 40 mg Oral Daily Or ??? esomeprazole 40 mg Intravenous Daily Continuous Infusions: PRN Meds:.HYDROmorphone, diphenhydrAMINE, acetaminophen, ondansetron, ondansetron, zolpidem, prochlorperazine, prochlorperazine, DISCONTD: HYDROmorphone Physical Examination Wt Readings from Last 3 Encounters: 12/17/12 76.5 kg (168 lb 10.4 oz) Last value Range last 24 hrs Heart Rte Heart Rate: 93 Heart Rate: [75-93] Blood Pressure BP: 127/83 mmHg BP: (115-127)/(66-84) HEENT: Pleasant woman, non-toxic, mild exopthalmos Heart: Rrr, no m/r/g Resp: ctab Abd: Soft, tender in the epigastrium, +BS Extrem: warm, well perfused, no edema Pertinent Recent labs Recent Labs Basename 12/17/12 1300 12/17/12 0400 12/16/12 0440 WBC 6.9 6.7 6.4 HGB 6.2* 7.0* 7.5* HCT 18.3* 19.7* 22.2* PLATELET 65* 58* 42* Recent Labs Basename 12/17/12 0400 12/16/12 0440 12/15/12 0350 NA 141 139 139 K 3.3* 4.1 3.2* CL 108* 111* 113* CO2 24 22 20* BUN 37* 33* 26* CREATININE 2.25* 2.29* 2.12* Recent Labs Basename 12/16/12 0440 12/13/12 2200 AST 49* 30 ALT 21 10 ALKPHOS 32* 29* BILITOT 0.8 1.0 BILIDIR 0.2 0.2 Recent Labs Basename 12/17/12 0400 12/16/12 0440 12/15/12 0350 12/13/12 2200 CALCIUM 8.2* 8.1* 7.9* -- PHOS -- -- 3.1 1.4* Recent Labs Basename 12/13/12 2200 PT 16.5* INR 1.3* PTT 27 Pertinent Endoscopic Procedures/Reports Patient has never had endoscopy Pertinent Recent Relevant Imaging CT OSH, Re-Read 12/13/12: Impression Marked thickening of colonic wall suggestive of pseudomembranous colitis. Small amount of ascites. Diverticulosis without evidence of diverticulitis. 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 The infectious agent is yet joel clearly identified, however the leading culprit given her clinical presentation is E coli 0157. 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 From a GI perspective, endoscopy, especially lower endoscopy as the patient convalesces from an acute hemorrhagic colitis would most likely be of very limited benefit. Her diarrhea has stopped and she does not report ongoing hematochezia. Blood is an excellent cathartic, and the paucity of stool pro duction alone argues against a significant lower GI bleed. FOBT in this setting will certainly be positive and is of no utility in the inpatient setting. Given her nausea and epigastric tenderness, upper endoscopy may prove useful and may help us identify any more global mechanisms of GI bleeding or upper sources that oozed or bled in the setting of coagulopathy from TTP-HUS. Recommendations - NPO at midnight for possible EGD tomorrow AM - follow stool output, monitor for any resurgence of hematochezia or melena - follow-up microbiology studies, stool cultures - transfuse PRN for symptomatic anemia Raad Bolaños MD PhD Gastroenterology Fellow ([id number]) GI Staff Patient seen and examined this am. Records reviewed. Labs reviewed. Long discussion with patient. Questions answered. i agree with the full and thorough evaluation by Dr. Bolaños. The concern is thather anemia is out of proportion to her underlying disorder (TTP_HUS). However, GI bleeding is not that uncommon with this disorder. She has had 5 or 6 small volume, dark stools since yesterday. This is significantly better than 5-6 days ago. I suspect that as her inflammatory process improves, her bleeding will resolve. However, EGD is reasonable to look for a second source of bleeding. Patient agrees; consent to be signed in endoscopy. Please keep npo. * Plan of Care - Sita Amos RN - 12/17/2012 4:27 PM EDT Shift Events: Pt has denied any complaints overnight. Premedicated for MRI of the Brain with Ativan1 mg po with reported relief of anxiety and comfortable MRI experience. Close cousin (ROOM SERVICE SERVER) roomed in overnight and was very helpful in encouraging pt to drink and monitoring her position/fall safety requirements. Problem: Pain, Acute (Adult, Obstetric) Goal: Acute Pain: Acceptable Pain Control/Comfort Level - Pain, Acute (Adult, Obstetric) Outcome: Present (see interventions, notes) Patient denied any further complaints of abdominal pain or headache overnight. Will continue to monitor. Problem: Trauma/Injury Risk (Adult, Obstetric) Goal: Trauma/Injury Risk: Absence of Trauma/Injury/Falls Outcome: Absent and monitoring Alert and oriented x 4, patient is at high risk for falls due to failure to pull call chain while in bathroom. She wants to provide her own perineal care, yet she is much too weak to stand/bend on her own. Concern regarding pt bathroom behavior was passed on at handoff for closer monitoring. Two person assist with ambulation, she would benefit from use of a walker at this point. Tocagen items andAtbrox system are in reach. Purposeful Hourly Rounding maintained for safety and pt satisfaction. Problem: Bowel Obstruction (Adult) Goal: Prevent/Manage Potential Problems Based on my scope of practice, I assessed for signs and symptoms of potential problems that could be present as documented. Outcome: Absent and monitoring Bowel sounds positive x 4 quadrants. One very small soft lose BM this am, collected the stool and sent for culture. Several other stool tests remain pending, requiring larger amounts of stool to be sent.Tolerating full liquid diet, poor appetite. Dietary consult. Will continue to monitor * Initial Assessments - Betsy Forman, PT - 12/17/2012 1:49 PM EDT Physical Therapy Evaluation Patient profile: Pt. is a 52 y.o. female admitted on 12/13/2012 by Fabi Grimm MD w/ PMH of Graves on methimazole, transferred from [facility] with clinical picture c/w TTP-HUS in setting of 3-4 days bloody diarrhea. Now receiving plasma exchange. PMH: No past medical history on file. No past surgical history on file. 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 Equipment at home: none Precautions/Special Considerations: O2 dep, high fall risk, contact precautions Subjective: alert, appropriate Objective: Pt seen for evaluation today with OT Pain: none Vital Signs: Sp02: 90s on 2 L O2 Mental Status: alert, appropriate, able to follow instructions, pleasant Musculoskeletal: ROM: WFL Strength: moves anti- gravity- no MMT performed Sensation: c/o tingling in B UEs and LEs Skin: swelling in all extremeties_ lasix started Bed Mobility: Supine to Sit: with min- mod A Sit to Supine: with min A Transfers: deferred Gait: deferred Balance: Sitting: able to sit unsupported on EOB for ~ 5 min Standing: deferred Informed Consent: The patient agrees to and understands the PT treatment plan and goals. Education: patient have been educated on Bed mobility, Positioning, Safety and Role of therapy and needs reinforcement. understanding. Patient status, treatment, and mobility recommendations discussed with nursing. Assessment: Pt. is a 52 y.o. female admitted w/ PMH of Graves on methimazole, transferred from [facility] with clinical picture c/w TTP-HUS in setting of 3-4 days bloody diarrhea. Pt receiving daily plasma exchange, about to receive blood transfusion. During PT eval Pt was shaky with impaired functand amb status. Pt is at high risk to fall. Rec use of bedside commode for now with A. The pt wouldbenefit from skilled therapy services to maximize functional independence while in the hospital andto address limitations as noted above. Goals: To be achieved by 12-28-12 1. Pt. to demonstrate knowledge of precautions and weight bearing limitations during functional activities. 2. Pt. to demonstrate understanding of appropriate exercises. 3. Pt. to perform bed mobility with S . 4. Pt. to perform transfers with c.g 5. Pt. to ambulate 25 feet with or without device and c.g 6. Family or caregiver to demonstrate understanding of therapeutic interventions to support the care of the patient. Plan: Pt to be seen 3-5 times per week for therapy including Bed mobility, Transfers, Assistive device/technique, Exercise, Breathing exercises, Positioning, Safety , Precautions/protocol, Equipment use, Gait , Activity pacing/Energy conservation, Role of therapy, Balance and Discharge planning. Patient agrees with plan as stated above. Equipment needs: deferred Discharge Recommendations: deferred No other consults recommended at this time Total time spent with patient: 30 minutes Total timed interventions: 0 minutes BETSY FORMAN PT 12/17/2012 Pager: [phone] Physical Therapy Rehabilitation Department * Initial Assessments - Gianna Hdz, OT - 12/17/2012 1:47 PM EDT Occupational Therapy Evaluation Patient profile: Anum Henriquez is a 52 y.o. female patient of Fabi Grimm MD, admitted on 12/13/2012 with abdominal pain and bloody diarrhea Active Medical Problems: Hemorrhagic colitis CT shows sparing of the sigmoid and rectum Thrombocytopenia Hyperthyroidism Graves disease stable on methimazole for 10+ years. No past surgical history on file. Social History: Patient lives with her in [facility]. Home Setup: house is two story, enters from garage onto main living area, does not need to access other floor. Tub/shower with one grab bar DME: none Baseline ADL/Mobility: Independent with ADL???s and IADL???s Code Status: Full Activity Orders: Up ad jas Precautions: fall, contact, bleeding, em, O2 Subjective: My legs feel heavy Objective: Seen today for OT evaluation. Seen in conjunction with PT. Pt' first cousin, who is an HOSPITAL WARD CLERK, present. Cognitive Status/Behavior: alert, oriented to person, place, and time Communication: No deficits, though very soft spoken Vision & Perception: wears glasses. Reports blurry vision and diplopia. Range of motion, strength, coordination: Hand dominance: right. Jerky movements of arms and legs Bilateral UEs are within functional limitations BLEs: able to lift off the bed ~3 inches. Reports legs feel heavy Sensation: numbness in hands. Activities of Daily Living: Self-feeding: Having difficulty holding onto regular cup due to jerky movements in hands Hygiene grooming: not formally assessed Upper and lower body dressing and bathing: ?? Dependent to don socks, unable to lift feet off the floor Toileting: Toilet Hygiene: odilia Functional Mobility: Supine to sit: min-mod assist with HOB elevated Sit to stand:N/A Ambulation: N/A Stand to sit: N/A Sit to supine: min assist Balance: fair sitting balance. Did not test standing balance IADL???s: Assistance available to patient. Endurance: Information taken from last recorded vitals in flowsheet. Last value Range last 8 hrs Heart Rate Heart Rate: 93 Heart Rate: [75-93] Blood Pressure BP: 127/83 mmHg BP: (115-127)/(66-83) SpO2 SpO2: 94 % SpO2: [94 %-96 %] 92-94% on 2L, HR 85. BP 127/83 Pain: none Skin: Not assessed Informed Consent: The patient agrees to and understands the OT treatment plan and goals. Education: family and patient educated on Role of occupational therapy/rehabilitation, Transfers, Exercise, Positioning, Safety, Functional Mobility, Activity pacing/Energy conservation, Balance and Recommendations and verbalizes understanding. Patient status, treatment, and mobility recommendations discussed with nursing. Assessment: Pt has been seen by OT for evaluation, and she presents with impaired ability to perform daily activities and functional mobility secondary to decreased activity tolerance, generalized weakness, overall body tremors/jerky movements, decreased standing balance tolerance, diplopia. Pt is at risk to fall due to weakness, diplopia. Pt agreeable to working with therapy today, had paracentesis this morn ing and nursing preparing to administer blood. Limited evaluation today, did not assess standing balance. Pt would benefit from ongoing OT services to maximize functional independence. Recommendations: Equipment needs at discharge: to be determined Discharge Recommendations: to be determined Other Recommendations: none Goals: To be achieved by December 24 1. Pt will sit EOB for 10 minutes for functional activities with set up. 2. Pt will be contact guard mobility to the bathroom with walker. 3. Pt will be contact guard sit<>stand transfers from bed, cc, commode, toilet. 4. Pt will sit in cc for one meal daily. 5. Pt will stand sink level for 2-3 light hygiene tasks with contact guard. Plan: Pt to be seen 2-4 x per week for therapy including Transfers, Assistive device/technique, ADL, Positioning, Functional Mobility, Activity pacing/Energy conservation, Balance, Recommendations and Discharge planning Eval Date: 12/17/2012 Total time spent with patient: 30 minutes Total timed interventions: 0 minutes Pager: [phone] GIANNA HDZ OT 12/17/2012 Occupational Therapy Rehabilitation Department * Discharge Summary - Flynn Frausto MD - 12/17/2012 10:40 AM EDT Discharge Summary Patient Name Anum Henriquez Age 52 y.o. Date of 1960 Admission Date 12/13/2012 Discharge Date 12/27/2012 Attending Physician at Discharge Haris Jarvis MD Follow-up Recommendations for Providers: Repeat CT abdomen/pelvis in 2-3 weeks to assess for resolution of colon wall thickening. If still abnormal, colonoscopy recommended. Needs close follow-up in Nephrology clinic for stage III renal insufficiency. Nephrology appt. arranged. Vancomycin 750 mg IV [id number] for 3 weeks total since line removal (12/24 - 01/14). Recheck Vancomycinlevel Complete bridge from lovenox to coumadin, has prescription for add'l 12days. Therapeutic anticoagulation duration of warfarin therapy will be advised by Dr. Fabi Bliss. Continue to hold methimazole, no need to start a beta kirstie. F/u with Endo 01/14 with f/u TSH and freeT4 labs. Patient to contact Endo clinic if she has concerns for return of hyperthyroidism prior to her appt. Monitor for recurrent HUS-TTP symptoms. F/u EPO levels drawn 12/25. Discharge Diagnoses (Hospital Problems) and Secondary Diagnoses (Chronic Problems): Active Hospital Problems Diagnoses ??? HUS (hemolytic uremic syndrome) ??? 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 Developed thrombocytopenia, DELVIS, microangiopathic hemolytic anemia acutely. Treatment: plasma exchange started 12/14/12. ADAMTS-13 activity normal. ??? TACO (transfusion associated circulatory overload) ??? MRSA bacteremia ??? Hemorrhagic colitis CT shows sparing of the sigmoid and rectum ??? Thrombocytopenia ??? Hyperthyroidism Graves disease stable on methimazole for 10+ years. Resolved Hospital Problems Diagnoses Date Resolved ??? Altered mental status 12/26/2012 ??? Clonus 12/26/2012 Operations/Major Procedures: Upper GI endoscopy on 12/18/12 Plasma Exchange 12/14/12 - 12/20/12 Hemodialysis 12/21/12 - 12/23/12 Consults: #Transfusion Medicine/Pathology #Nephrology #Infectious Diseases #Gastroenterology #Neurology #Endocrinology #Nutrition #Physical Therapy History of Presentation: (Per admission H&P) Mrs. Henriquez is a 52F w/ h/o hyperthyroidism, who presents with a several day history of abdominalpain and bloody diarrhea. History obtained by patient and from OSH records. [facility] after experiencing severe crampy abdominal pain and diarrhea x 2-3 days. Was having multiple episodes of diarrhea that originally started as brown and watery and became bloody (bright red) by the 2nd day. Notably, the diarrhea and abdominal pain were waking her up at night, and she notes that the abdo pain did not resolve with BM's. She has never experienced symptoms similar to this before, and prior to its onset, she was in her usual state of health. No history of IBD, has never had a colonoscopy before (not even a screening colo). Denies fevers or chills,but endorses nausea over the last few days. she states that her diarrhea has improved - the stools are now a bit more formed and maroon in color, but she continues to have abdominal pain. Denies recent travel. During her admission at the OSH, she was started on cipro and flagyl IV and received IV hydration. On admission, noted to have WBC count of 13.1 w/ 89% neutrophils, Hgb 14.5, Plts 151. Noted to have fecal leukocytes, but C diff was negative (pt says they tested for salmonella and other infectious etiology in her stool but records were not sent). LFT's, lipase, amylase, TSH were all w/in normal limits. CT of the abdomen showed thickening of the colon w/ sparing of the distal sigmoid and rectum. No free air was seen. There was a noted drop in platelets today from 151 to 66 (per OSH MAR, pt did not receive heparin), rest of DIC panel showed INR of 1.3, normal fibrinogen, elevated LDH at 1187 and d- dimers. Also bump in Cr to 1.2 today from 0.8 prior. Also per report, there was worsening abdominal distension, AXR showed air-fluid levels with no clear obstruction - of note, pt has been on fentanyl PARER since Sunday. Pt was transferred to [facility] [place]. Pt afebrile and hemodynamically stable on arrival. Hospital Course: Mrs. Henriquez was admitted to the Hematology service on 12/13/2012 and discharged on 12/27/2012. The following issues were addressed during this admission: #TTP-HUS Mrs. Henriquez presented with hematochezia, thrombocytopenia, anemia with schistocytes on peripheralsmear, and acute renal injury, with normal INR and PTT and a negative SEN, and was diagnosed with TTP-HUS. She received 7 days of plasma exchange from 12/14-12/20, during which her platelets increased, LDH decreased, and kidney function stabilized. ADAMTS-13 activity, a send out lab, eventually came back normal, and it was surmised that her diagnosis was most specifically typical diarrheal-associated HUS and that her improvement followed natural resolution of her disease, rather than removal of anantibody by plasma exchange. Stool studies from the OSH were negative, and repeat studies here did not have enough enteric growth to run testing for E. Coli O157:H7; shiga toxin here was negative. Itwas noted that many cases of typical diarrheal HUS, no culprit toxin is found. Ciprofloxacin and HIV are also rare causes of TTP-HUS. The patient's intial cipro started for hemorrhagic colitis was discontinued early and HIV was negative. Complement studies were sent to assess for atypical HUS, but only C3 and C4 assays were able to be added on to pre-plasma exchange blood. C3 and C4 returned low but the significance of this was unclear as her clinical picture fit with typical HUS. There was some concern for concomitant vasculitis as discussed below, but w/u for this was unrevealing. She required 3 units of red cells throughout her course for anemia felt to be 2/2 both MAHA and GI blood loss, as she continued to have melena early in her course. By the time of discharge, her Hg and platelets were stable around 8.3 and mid-200's, respectively, and her was improved from earlier in her course. #Altered Mental Status During her course, she developed progressively worsening mental status, with new onset diplopia, vertigo and intermittent confusion starting 12/16. Her mental status actually worsened through the course of her plasma exchange and after her final exchange, took an acute turn for the worse. On the afternoon of 12/20, she became acutely agitated, was mumbling in coherently in turkish and maori and exam revealed acute exaggeration of upper motor neuron findings that had been more subtly present for several days, including clonus, diffuse hyperreflexia, and myoclonic jerks, as well as dysmetria. These findings had previously been attributed to her TTP-HUS, but during her acute worsening, she also developed SIRS criteria, including fever, tachypnea, new leukocytosis, as well as acute desaturationto 88% on 6L NC. As noted below, workup eventually revealed likely Transfusion-Related Circulatory Overload (TACO) as well as MRSA bacteremia, and per Neurology, her mental status changes most likelyrepresented toxic-metabolic encephalopathy, likely with contributions from both TTP-HUS and sepsis,as well as ativan x1 given for agitation. Early in her course, a brain MRI without contrast was obtained to rule out bleed, stroke or evidence of vasculitis and was a normal study. When her status acutely worsened, a second MRI was obtained at the recommendations of nephrology and neurology to ruleout vasculitis, lupus cerebritis, or other causes. The study revealed non-specific evidence of toxic metabolic process, not characterstic of vasculitis or cerebritis (there was some concern for possible acute demyelination as well). Unfortunately, she was inadvertently given contrast for this studydespite her borderline creatinine clearance and the decision was made to start urgent hemodialysis,given both her TACO and contrast administration. After 3 days of HD, 12/21-12/23, the majority of hermental status changes and upper motor neuron signs completely resolved, suggesting the removal of some toxin such as uremia, making her neurologic changes in fact possibly all 2/2 uremia 2/2 HUS despite only moderately elevated BUN. At the time of D/C, she still had some blurriness in the L eye andmild vertigo. # Hemorrhagic colitis The patient initially presented with bloody diarrhea and CT showed diffuse colonic wall thickening.Interestingly, she had been tested 3 times for C. Diff at the OSH, the third of which was positive,and her OSH CT was read here as concerning for psuedomembranous colitis, and so she was started on IV flagyl for c diff treatment breifly until repeat c diff screen here was negative and ID felt her picture was not consistent with c diff colitis. There was some concern that her anemia was out of proportion to her MAHA. Gastroenterology was consulted and felt that colonoscopy would be of limited benefit in the acute setting. An EGD on 12/19 showed gastric mucosal erythema/submucosal hemorrhage likely related to TTP-HUS, which along with hemorrhagic colitis, could have explained some of her melena/anemia, and was not felt to be surprising in the setting of TTP-HUS. A repeat CT to assess for resolution of her colon wall thickening is recommended in 2-3 weeks after discharge, with colonoscopy to follow if still abnormal, to ensure we are not missing an underlying pathology. #DELVIS The patient developed non-oliguric kidney failure. There was initially some concern that her kidneyfailure and hemolysis could be due to a vasculitis, such as methimazole-induced ANCA vasculitis. C3and C4, added on to pre-plasma exchange blood, were slightly low, but increasing by the time of discharge. ANCA studies and KIANA were negative. Interestingly, anti-Ro and anti-La eventually came back positive. She did not show symptoms of Sjogren's, but SLE is a possibility. However, brain MRI did not show evidence of vasculitis as cause for her neurological symptoms, and typical diarrhea HUS seems a more likely cause for her entire clinical picture. It should also be noted that these studies were sent during plasma exchange and thus may be of limited significance. Ultimately, her DELVIS was feltto be most likely simply due to TTP-HUS as initially suspected. Her creatinine trended down from 2.28 to 1.86 during plasma exchange, but then peaked at 2.29 on 12/21 after receiving contrast and increased lasix for TACO. Hemodialysis was initiated as described below for contrast/fluid overload, from 12/21-12/23, after which Cr had decreased to 1.52. Cr then parminder but was stable by the time of discharge, to ~2.0 (stage III renal insuffiencey) and she still had some fluid overload (residual pleural effusions on exam, peripheral edema); however, she had no further uremia or indications for more HD, and she was making good UOP with no respiratory compromise. Shewill require close follow-up with Nephrology. #Anemia She remained anemic but without evidence of ongoing brisk hemolysis, suggesting lack of marrow response 2/2 stage III renal insufficieny and likely low erythropoietin level. A bone marrow biopsy or supplementation with Procrit may be considered pending the results of her erythropoietin level. #MRSA bacteremia On afternoon of 12/20 hours after her final plasma exchange, she spiked a fever, was tachycardic, tachypnic and developed new leukocytosis. CXR showed bilateral basilar opacities and layering effusions, and she was started on vancomycin and zosyn for empiric HCAP coverage. Blood cultures grew MRSA rapidly, and her pleural effusions/opacities were felt more likely due to TACO, and so antibiotics were narrowed to vancomycin, dosed based on levels given her renal insufficiency. The most likely source of her bacteremia was line-associated and her PICC and plasma exchange catheter were pulled. Alternatively, contamination of the plasma used in exchange is possible but much less likely. She quickly defervesced and showed no more SIRS criteria after starting vanc. Her blood cultures cleared rapidly, making an infected thrombus less likely. A new PICC was placed 12/26 and she will be sent home tofinish a course of vancomycin. #TACO She developed acute dyspnea, hypoxemia, and increased oxygen requirement within 1-2 hours after finishing her last plasma exchange on 12/20. CXR showed bilateral basilar opacities plus layering effusions. She developed signs of sepsis at this same time, which complicated the picture and raised concern for MRSA pneumonia. However, her picture was felt to be more consistent with two separate processes, MRSA bacteremia discussed above, and Transfusion-related circulatory overload. Her pro-BNP at this time was ~2400 and she responded well to lasix, eventually saturating normally on RA while ambulating, supporting this hypothesis. A TRALI w/u was also initiated, and all transfused plasma units were confirmed to have come from male donors except for one unit of plasma [id number] which as donated b y female who was HLA negative. This excluded the possibility of antibody mediated TRALI. #DVTs The patient developed bilateral tense edema likely 2/2 to renal failure which responded to lasix. However, she also developed bilateral calf pain and doppler studies revealed non-occlusive thrombi below the knee bilaterally. She was not started on anticoagulation immediately because she was still hemolyzing and thrombocytopenic. Repeat doppler studies after improvement of her hemolysis/thrombocytopenia revealed progression of the clots, though both were still below the knee. In addition, she complained of R arm and neck pain at the site of her tunneled phoresis catheter and doppler of the arms after this was pulled also revealed a non-occlusive thrombus in the basilic vein at the site of the PICC line. There was no evidence of neck DVTs. She was started on renally- dosed lovenox with plan to bridge to coumadin, with plan for 3 months of anticoagulation in setting of provoked DVT. #Grave's Disease There was some concern that the patient's renal failure and hemolysis represented vasculitis, giventhat no definitive etiology for her TTP-HUS picture could be found. As methimazole (and PTU) are known to induce vasculitis, the patient's long-term methimazole was stopped at the recommendation of nephrology and under the guidance of Endocrinology. She had no adverse effects such as tachycardia from this. Thyroid studies showed all values WNL several days after stopping methimazole. [facility]. Important Lab Data: Recent Labs Basename 12/27/12 0357 12/26/12 03412/25/12 1204 WBC 8.2 6.1 6.7 HGB 9.0* 8.3* 8.8* PLATELET 317 231 264 Recent Labs Basename 12/27/12 0357 12/26/12 03412/25/12 0414 NA 138 141 140 K 3.5 3.5 3.6 CO2 23 24 27 CL 104 106 106 BUN 10 11 10 CREATININE 2.10* 2.05* 2.01* CALCIUM 8.3* 8.5 8.3* MAGNESIUM 0.81 0.80 0.80 PHOS 4.4 4.1 3.4 ANIONGAP 11 11 7 Recent Labs Basename 12/24/12 1300 PROT -- ALBUMIN -- BILITOT 0.4 BILIDIR 0.1 AST -- ALT -- ALKPHOS -- Recent Labs Basename 12/27/12 03512/26/12 03412/25/12 1204 LDH 257* 255* 288* URICACID -- -- -- Recent Labs Basename 12/27/12 0357 12/26/12 1031 12/25/12 1526 INR 1.0 -- 1.1 PT 14.0 -- 14.5 PTT -- 36* 31 Pro-BNP 12/20: 2411 Erythropoietin level (12/25) - pending Endocrine Studies: Ref. Range 12/13/2012 22:42 12/16/2012 14:00 12/19/2012 03:20 12/26/2012 03:42 T3, Total 75-170 ng/dL 58 (L) 77 T4, total 5.1-10.8 mcg/dL 5.7 6.7 Free T4 0.90-1.60 ng/dL 0.88 (L) 1.05 TSH 0.27-4.20 mcIU/mL 3.68 1.97 T Uptake 0.80-1.30 ratio 1.03 0.99 FTI 4.5-9.5 mcg/dL 6.8 T3, Free 2.0 - 3.5 pg/mL 1.6 (L) TSI <=1.3 TSI index <1.0 Immune Studies: 12/13/2012 22:42 12/14/2012 12:03 12/16/2012 14:00 12/17/2012 18:49 12/21/2012 13:40 12/24/2012 13:00 12/25/2012 12:04 KIANA Neg C-ANCA Negative Negative Negative P-ANCA Negative Negative Negative MPO Ab 3.1 3.0 2.8 PR3 Ab 3.7 3.5 3.6 C1 Scarlett Inh Qnt >90 90 C2 Complement <1.3 (L) C3 Complement 64 (L) 66 (L) 86 (L) C4 Complement 10 4 (L) 17 JAKCY Ab See below Haptoglobin <10 75 70 JACKY Ab (Ab to Extractable Nuclear Ag): SS-A/Ro Ab, Ig.0 (H) (ref <1.0) SS-B/La Ab, Ig.5 (H) (ref <1.0) Sm Ab, IgG: <0.2 (neg) ADMINISTRATIVE DIRECTOR Ab, IgG: <0.2 (neg) Scl 70 Ab, IgG: <0.2 (neg) Fozia 1 Ab, IgG: <0.2 (neg) Microbiology: C diff 12/15: neg Stool wbc 12/15: + Stool cx OSH 12/10: negative Shiga toxin 12/17: Test not performed due to no enteric growth Campylobacter antigen 12/17: negative Stool Cx 12/16: No enteric pathogens isolated Giardia 12/17: negative Cryptosporidium 12/17: negative HIV 12/16: negative Blood culture 12/20: MRSA, S to Vancomycin Urine culture 12/20 - >100,000 MRSA, S to Vanc Blood Culture 12/21: No growth Blood Culture 12/22: No growth Blood Culture 12/23: No growth Blood Cutlure 12/23: No growth Urine Culture 12/23: 1-9K Gram positives, probable contaminant H. Pylori stool Ag 12/22: negative Pertinent radiology/diagnostic studies: KUB OSH 7: No acute abnormality CT Abd/pelvis OSH 12/10:Diffuse transmural thickening of colon wall with relative sparing of distal sigmoid and rectum. Pericolonic fluid. Consistent with colitis, infectious or inflammatory. [facility] [place] of above film: Marked thickening of colonic wall suggestive of pseudomembranous colitis. Small amount of ascites. Diverticulosis without evidence of diverticulitis. CXR OSH 12/13: Bibasilar opacities c/w pleural fluid and atelectasis. KUB 10/15: no evidence of obstruction or free air KUB 12/15: Mild gaseous distention of the small bowel with a few air-fluid levels. + gas within the colon. The pattern is most consistent with a partial small bowel obstruction. No evidence of free subdiaphragmatic air. MRI Brain 12/16: Normal CXR 12/17: Small to moderate bilateral pleural effusions, left greater than right. No findings to suggest pulmonary edema. Duplex DVT Bilateral LE study 12/19: RIGHT: Non occlusive thrombus in one of the peroneal veins through the mid calf. No evidence of femoral to popliteal deep venous thrombosis. LEFT: Focal non occlusive thrombus in one of the posterior tibial veins in the mid calf. No evidence of femoral to popliteal deep venous thrombosis. EGD 12/19: Normal esophagus. Gastric mucosal abnormality in the gastric body characterized by erythema/submucosal hemorrhage likely related to TTP. Normal examined duodenum. CXR 12/20:Increase in bilateral pulmonary opacities, however unable to determine if effusions increased in size due to differences in study. MRI Brain 12/21: Abnormal diffusion in the bilateral centrum semiovale associated with probable abnormal signal in the bilateral basal ganglia. These findings are subtle and nonspecific, but can be seen in setting oftoxic metabolic processes, especially given the symmetry. The findings in the deep white matter andcorpus callosum raises the possibility of acute demyelination. The findings are not characteristic of a vasculitis or cerebritis. Follow up imaging could be helpful to see how these changes evolve. EKG 12/21: NSR, 83bpm, diffuse nonspecific T wave flattening Duplex DVT bilateral arms study 12/24: RIGHT: No evidence of upper extremity deep or superficial venous thrombus. There is non-occlusive thrombus in the basilic vein at the site of the PICC line that was removed to the upper arm. LEFT: No evidence of upper extremity deep or superficial venous thrombus. Duplex DVT Bilateral LE study 12/25: RIGHT: DVT in the calf (peroneal veins). Progression from previous exam 12/19/12. No evidence of femoral-popliteal deep venous thrombosis. LEFT: DVT in the calf (one peroneal and one posterior tibial vein). Progression from previous exam 12/19/12. No evidence of femoral-popliteal deep venous thrombosis. Duplex bilateral IJ's 12/25: No evidence of neck DVT bilaterally. Pathology: Peripheral Blood Smear (12/14): Anemia with schistocytes, rare spherocytes c/w microangiopathic hemolytic anemia. Thrombocytopenia. Peripheral Blood Smear (12/17): Scistocytes are more than noted in the previous smear Peripheral Blood Smear (12/24): Persistent anemia with schistocytes present in decreased quantity from previous, consistent with slowing of microangiopathic hemolytic process Pending Studies and Lab Data: Erythropoietin Level 12/25 Discharge Conditions/Prognosis: Upon discharge the pt is hemodynamically stable, fully ambulatory without requiring supplemental oxygen, afebrile and pain free. Vital Signs on Day of Discharge: Last value Range last 24 hrs Temperature Temp: 36.8 ??C (98.2 ??F) Temp: [36.3 ??C (97.3 ??F)-36.9 ??C (98.4 ??F)] Heart Rate Heart Rate: 88 Heart Rate: [73-98] Blood Pressure BP: 150/80 mmHg BP: (125-150)/(80-96) Respiratory Rate Resp: 18 Resp: [12-20] SpO2 SpO2: 98 % SpO2: [89 %-98 %] Discharge to: Home Discharge Medications: Current Discharge Medication List New Meds Dose Details !! prochlorperazine (COMPAZINE) 10 mg tablet 10 mg Take 1 tablet by mouth every 6 hours as needed for Nausea (Nausea/Vomiting) for 7 days. Qty: 15 tablet Refills: 2 omeprazole (PRILOSEC) 40 mg capsule 40 mg Take 1 capsule by mouth daily. Qty: 30 capsule Refills: 11 !! warfarin (COUMADIN) 5 mg tablet 5 mg Take 1 tablet by mouth daily for 7 days. Qty: 7 tablet Refills: 0 !! enoxaparin (LOVENOX) 80 mg/0.8 mL injection 80 mg Inject 0.8 mLs subcutaneously daily for 12 days. Qty: 9.6 mL Refills: 0 !! prochlorperazine (COMPAZINE) 10 mg tablet 10 mg Take 1 tablet by mouth every 6 hours as needed for Nausea. Qty: 30 tablet Refills: 0 !! warfarin (COUMADIN) 5 mg tablet 5 mg Take 1 tablet by mouth daily. Qty: 15 tablet Refills: 0 !! enoxaparin (LOVENOX) 80 mg/0.8 mL injection 80 mg Inject 0.8 mLs subcutaneously daily for 5 days. Qty: 4 mL Refills: 0 !! - Potential duplicate medications found. Please discuss with provider. Continued medications, unchanged Dose Details Rtkciibxoif-Rclgtttlo-Kzw C-Mn 500-400 mg Cap Galena-3 Fatty Acids-Vitamin E (OMEGA-3 FISH OIL) 1,000-5 mg-unit Cap CALCIUM ORAL Medications STOPPED Dose methimazole (TAPAZOLE) 10 mg tablet aspirin 81 mg EC tablet Updated Allergies/ADRs: Allergies Allergen Reactions ??? 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 Call your doctor or seek medical attention if you develop the following: Nausea, vomiting, abdominal pain or distention, fevers/chills, unable to pass stool or gas or any other symptoms of concern. Activity level: As tolerated Diet: No restrictions Driving: No driving if taking narcotics or vision impaired. Shower/Bath: Keep PICC line dry per instructions. Wound Care: N/A Home Oxygen therapy: N/A Specific instructions related to your condition: 1) Continue vancomycin as discussed 2) Follow up appointments Primary Care Provider (seeing Dr. Rob Mejia in place of Bakari Quijano),Hematology, Nephrology and Endocrinology. See appointments. 3) Seek medical attention for lightheadedness, blood in stools, worsening confusion, shortness of breath, increased leg swelling, or if you are not making urine. Appointment with Primary Care Provider: 12/30/2012 12:45PM, Provider: Dr. Rob Mejia, Location: [address] [address], Your Inpatient Doctor(s) at [facility]: Attendings: Dr. Cristina, Dr. Ohara, Dr. Bliss Fellow: Dr. Gomez Residents: Dr. Guzmán, Dr. Aleman Senior Software Engineer Analytics: Dr. Kimball General Instructions Other Provider Recommendations Nursing Patient Care Recommendations: Bowel function - no current issues Bladder function - no current issues Diabetes management - non diabetic Mental status assessment - some residual vertigo and blurriness left eye. Confusion resolved. Diet/Nutrition - regular diet Care Management Recommendations: See VNA orders PT Recommendations: A: Pt much improved MS and mob status from last week. Pt amb well with FWW and S. Pt will benefit from ongoing therapeutic interventions to achieve therapy goals Physical Therapy Goals: To be achieved by 12-28-12 . Ongoing 1. Pt. to demonstrate knowledge of precautions and weight bearing limitations during functional activities. 2. Pt. to demonstrate understanding of appropriate exercises. 3. Pt. to perform bed mobility with S . 4. Pt. to perform transfers with c.g 5. Pt. to ambulate 25 feet with or without device and c.g 6. Family or caregiver to demonstrate understanding of therapeutic interventions to support the care of the patient. Discharge Recommendations: Might benefit from Home PT initially after Dc Equipment: presently uses FWW Anticoagulation (???Blood Thinner?? ) Management upon Discharge: Reason for anticoagulation therapy: DVT's in setting of HUS Your NEW Warfarin (Coumadin??) dosing instruction upon discharge is: (Follow this schedule below until your first INR check after discharge (usually in 2- 4 days): Take 5mg each night until told otherwise Follow up INR is scheduled on: Sunday/ by [facility]NA INR Goal: 2-3 Expected duration of treatment: [...] recent INR results and Warfarin (Coumadin??) Doses Recent Labs Basename 12/27/12 0357 12/25/12 1526 12/22/12 0500 INR 1.0 1.1 1.4* Hospital Date 12/26 Coumadin Dose (mg) 5 mg ?? Please review your Warfarin (Coumadin??) Pack upon discharge. ?? For your safety, it is very important to be aware of the following details related to taking ???blood thinning?? medications such as Coumadin. o Compliance: Take your medication exactly as directed. Missing a dose or taking more than you are scheduled to take could result in clotting or bleeding issues. o Signs and Symptoms to be reported include: increased pain, swelling or sudden shortness of breath severe headaches dizziness unusual bleeding or bruising changes in urine or bowel movement color coughing or spitting up of blood, or nosebleeds In the event that you should experience any of the above, seek medical attention. Discharge References/Attachments PERIPHERALLY INSERTED CENTRAL CATHETER (PICC): AFTER YOUR VISIT (PUERTO RICAN) Appointment with Primary Care Provider: 12/30/2012 12:45PM, Provider: Dr. Rob Mejia, Location: [place] [address], Your To Do List Future Appointments: Provider: Department: Dept Phone: Center: 01/01/2013 12:35 PM Fabi Bliss MD Hematology/Oncology [phone] [facility] 01/13/2013 3:30 PM Brian Velazco MD Nephrology [phone] [facility] 01/14/2013 10:05 AM Minor Kebede MD Endocrinology [phone] [facility] 01/14/2013 10:30 AM Clovis Varner MD Endocrinology [phone] [facility] Future Orders Please Complete By Expires OPAT: Order / Recommendation for Post Discharge IV Antibiotic Management [TGB060 CPT(R)] Process Instructions: If no progress note charted, please enter Clinical details in comments. Scheduling Instructions: Comments: Please Fax all results to: OPAT Program Infectious Disease Section [facility] [place], [place] [address] FAX: Line care instructions per [facility] OPAT Program protocol. After hours, please contact the Infectious Disease Physician transmission calibration engineer at . If this order was signed greater than 72 hours prior to [facility] discharge, please call to confirm the accuracy of this order. Questions: Responses: Microorganisms being treated: MRSA Antibiotic Allergies: Erythromycin Antibiotic (one line for each ABx): Vancomycin 750 mg IV q24h Start date: 12/24/2012 Anticipated stop date: 01/14/2013 Labs: Every Sunday: CBC, CMP, ESR, high sensitivity CRP Comment - Vanco trough Q Sunday Last documented height (cm): 170.2 cm (5' 7) Last documented weight (kg): 68.9 kg (151 lb 14.4 oz) Responsible Attending: Tyson Patel MD ID Diagnosis: Bacteremia; HUS Referral for Outpatient Antibiotics [FTC4558 CPT(R)] Process Instructions: Scheduling Instructions: Comments: Questions: Responses: Patient location post discharge Home Start date 12/28/2012 Responsible MD post discharge contact info Out Patient Antibiotic Team Vendor / contact information [facility] Service requested IV abx Referral to Home Health [SSS2535 CPT(R)] Process Instructions: Scheduling Instructions: Comments: DOCUMENTATION FOR VNA SERVICES (INCLUDING THOSE PATIENTS WITH MEDICARE COVERAGE REQUIRING HOME VNA SERVICES AND/OR HOSPICE SERVICES) This is preliminary information related to the patient's needs and confirmation of Face to Face Encounter. The denoted information will require completion and an electronic signature by the physicianupon finalization of these orders. PATIENT'S LOCATION: Address: [address] [place] [address] [address] [facility] [address] Tel. #: [phone] (home) Certified Medical Aide's Name: In discussion with the attending physician, it is certified that this patient is under their care and that they, or a nurse practitioner, clinical nurse specialist or physician's assistant inventory manager who is working directly with them, had a face to face encounter that meets the physician face to face encounter requirements with this patient on 12/27/2012 The encounter with the patient was in whole, or in part, for the following medical condition, whichis the primary reason for home health care services: TTP (thrombotic thrombocytopenic purpura) In discussion with the provider, it is certified that, based on their findings, the following services are medically necessary for home health services. SERVICES REQUESTED: RN (X) To provide the following care/treatments with the clinical findings supporting the need for services as follows: HOME CARE ORDERS: Assist with home IV antibiotic therapy. See OPAT antibiotic orders. Labs: Every Sunday: INR, CBC, CMP, ESR, high sensitivity CRP (Vanco trough Q Sunday) : INR On 01/09, please draw a TSH, total T3, total T4, and free T4, [facility] , Attn: Jinny Please send Sunday CMP to Renal [facility], Attn: Dr. Velazco Please send INR to Attn: Dr. Rob Mejia, Responsible Attending: Tyson Patel MD Last documented weight (kg): 68.9 kg (151 lb 14.4 oz) Last documented height (cm): 170.2 cm (5' 7) Please Fax all results to: OPAT Program Infectious Disease Section [facility], [place] [address] FAX: START OF CARE DATE: 12/28/12 All VNA agencies which cover the area of patient's residence have been reviewed, either verbally tanvir writing, and patient/family have chosen the home health care agency as follows for home services: HOME HEALTH CARE AGENCY: [facility] PHONE: [phone] FAX: [phone] VENDOR: [employer]. VENDING MACHINE MECHANIC [facility] Address [address] [place] [id number] Equipment ordered: IV antibiotic and line supplies. Ordering Provider: Dr. John Kimball Ordering Provider Phone #: [phone] [place] [address] Questions: Responses: Agency name and contact information [facility] Patient location post discharge HOME What services are requested Registered Nurse Start date 12/28/2012 Responsible MD post discharge contact info CHARLY Lugo standard [EQ135 Custom] Process Instructions: Scheduling Instructions: Comments: [facility] Deliver to room #129 prior to 11 am on Wednesday 12/27 height 170.2 cm (5' 7), weight 69.9 kg (154 lb 1.6 oz) Questions: Responses: Vendor Name/Contact information: [facility] Provider Contact Information: BAKARI COSTELLO APRN [facility] [address] [place] [id number] Signed: FLYNN FRAUSTO MD Discharged: 12/27/2012 * Consult Note - Minor Kebede MD - 12/17/2012 8:00 AM EDT Patient Name: Anum Henriquez Patient Age: 52 y.o. 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 The patient remained stable overnight. She had no new complaints this morning Relevant inpatient medications: - No methimazole (last dose 12/16) PE: - Vitals: 98.6, 118/66, 80, 18, 96% on RA - Gen: Awake, drowsy - HEENT: + stare - CV: RRR, no M/C/R - Pulm: CTAB - Abd: +BS, mild diffuse TTP - Ext: 2+ edema, mild tremor - Derm: No rashes or purpura Relevant Labs (12/16/2012): - TSH: 3.68 - Free T4: 0.88 - ANCAs (pre- and post-plasmapheresis): Pending - TSI (pre-plasmapheresis): Pending Assessment: The patient is a 52-y/o lady with a PMH significant for Graves' disease (on methimazole) who was recently transferred from an outside hospital with concern for TTP/HUS, with Endocrinologyconsulted with the question of whether her presentation could be consistent with a methimazole-induced vasculitis. Please see yesterday's note for a full assessment. In short, given the association of thionamides with ANCA-associated vasculitis (often MPO-ANCA) and the patient's minimal dose and mild disease, stopping her methimazole appears to be the best course of action. Recommendations: - Continue to hold methimazole - Would check total T4 and TUP on of this week to assess for worsening of her Graves' disease - Will need to have TSH, total T4 and TUP (or estimated free T4 if an outpatient), and total T3 checked again in 2-3 weeks following the stopping of methimazole, if this occurs after discharge we will see if she can see me in clinic at that time - Have noted pending ANCAs and TSI, will follow as these labs may help predict the likelihood of a methimazole-induced vasculitis and the likelihood of a return of hyperthyroidism, respectively - No need to start a beta-kirstie unless she were to develop symptoms or physical/lab signs concerning for hyperthyroidism - Will continue to follow, please page with questions - Patient discussed with the attending Dr. Connolly, official recommendations to follow Minor Kebede MD Fellow, Endocrinology 12/17/2012 * Plan of Care - Yeimi Carrasco RN - 12/16/2012 5:36 PM EDT Problem: Pain, Acute (Adult, Obstetric) Goal: Acute Pain: Acceptable Pain Control/Comfort Level - Pain, Acute (Adult, Obstetric) Outcome: Present (see interventions, notes) Patient with complaint of intermittent pain this morning. Medicated with IV dilaudid with relief ofpain. Patient reported 8/10 headache at 1700 - medicated with tylenol with relief of symptom. No other s/s of pain noted t/o shift. Problem: Trauma/Injury Risk (Adult, Obstetric) Goal: Trauma/Injury Risk: Absence of Trauma/Injury/Falls Outcome: Absent and monitoring Fall precautions maintained. Patient calls for staff assist before ambulating appropriately. Problem: Bowel Obstruction (Adult) Goal: Prevent/Manage Potential Problems Based on my scope of practice, I assessed for signs and symptoms of potential problems that could be present as documented. Outcome: Absent and monitoring Patient with one complaint of abd pain this morning. Denies nausea/vomiting. Tolerating full liquiddiet. * Consult Note - Arsenio Pickens MD - 12/16/2012 4:28 PM EDT Inpatient ID Consultation Date of Consultation: 12/16/2012 Consult Service: Infectious Disease Place of Service: Inpatient Unit Responsible Attending: Celio Reason for Consult: We are seeing Anum Henriquez at the request of Dr. Fontana for the evaluation of Infectious colitis causing TTP/HUS. I have reviewed the available records, interviewed and examined the patient. History of Present Illness: 52 yo female with a h/o hypothyroidism and Grave's disease who presented initially to an OSH with 2-3 days of abdominal pain, nausea, and bloody diarrhea. She was started empirically on Cipro and Flagyl for concern of an infectious colitis. C. diff and stool cultures were sent and were negative init ially. CT scan was also obtained and showed diffuse transmural wall thickening of the colon sparingthe distal sigmoid and rectum. At the OSH, patient failed to improve so [facility] to the medicine service. Of note, C. Diff on 12/13 returned positive despite 2 prior negative tests. At [facility] patient was initially continued on Cipro and Flagyl. She was noted to have decreasing plts and worsening renal function. 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 She was transferred to the hematology service. IR placed a cath for plasma exchange on 12/14, [id number] was sent, and patient was started on plasma exchange 12/14. Nephrology was also consulted and recommended checking ANCA and complement levels, as well. Cipro was stopped on 12/16 for concern of contributing to TTP/HUS, but Flagyl was continued due to positive C. diff at the OSH. CT scan was re-read at [facility] and was read as showing findings concerning for pseudomembranous colitis. C. diff at [facility] was negative. ID was consulted for further guidance on diagnosis an infectious etiology for the patient's colitis. Patient reports that initial symptoms began with abdominal cramping, and then quickly progressed towatery and then multiple bloody bowel movements. She describes dark red/black bloody bowel movements. The abdominal pain has seemed to improve over the course of her hospitalization and she reports a6/10 lower abdominal crampy discomfort. The last 2 days she didn't have any BM's but today has had 3 already. Denies F/C. Denies nausea/vomiting. The last 2 days she also reports new onset of some SOB and cough productive of whitish phlem. + increased LE edema. She is also feeling more confused and mentally not sharp having difficulty describing events. Her visual acuity has also decreased, although she denies any headaches. Review of Systems: Gen: Denies F/C Eyes: as noted above ENT: Denies sore throat or rhinorrhea Resp: As noted above CV: Denies chest pain/pressure GI: As noted above : Em cath in place, just noticed some blood in urine today, nothing before Heme/lymph: As noted above Neuro: Denies headache Derm: Denies rash Problem List: Patient Active Problem List Diagnoses Code ??? Hemorrhagic colitis 558.9 ??? Thrombocytopenia 287.5 ??? Hyperthyroidism 242.90 ??? 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 Drinks well water No recent travel out of country Tobacco: brief time in teens, not currently EtOH: denies Illegal: denies Family History: Nobody in immediate family has been sick Physical Exam: Temp: [36.5 ??C (97.7 ??F)-37.4 ??C (99.3 ??F)] Heart Rate: [81-97] Resp: [18] BP: (113-128)/(66-88) SpO2: [92 %-98 %] Gen: NAD Eyes: PERRL, EOMI ENT: MMM, no oral lesions/erythema, uvula/palate elevate mildline, tongue midline Resp: CTAB apices, ? Decreased BS with trace crackles bilat bases CV: RRR, S1/S2, no m/r/g Abd: Soft, ND, hypoactive bowel sounds, diffusely tender Hem/Lymph: + bilat LE edema Skin: No rash Neuro: A&Ox3 Lines: right IJ Laboratory in last 24 hours: CBC Lab Results Component Value Date WBC 6.4 12/16/2012 Hemoglobin 7.5* 12/16/2012 Hematocrit 22.2* 12/16/2012 Platelets 42* 12/16/2012 Lab Results Component Value Date Sodium 139 12/16/2012 Potassium 4.1 12/16/2012 Chloride 111* 12/16/2012 CO2 22 12/16/2012 BUN 33* 12/16/2012 Creatinine 2.29* 12/16/2012 Glucose Lvl 110 12/16/2012 LFT's Lab Results Component Value Date Alk Phos 32* 12/16/2012 AST 49* 12/16/2012 Albumin 2.6* 12/16/2012 Bili, Direct 0.2 12/16/2012 Total Bilirubin 0.8 12/16/2012 ALT 21 12/16/2012 Total Protein 4.3* 12/16/2012 Microbiology: OSH C. diff 12/10: Negative OSH C. diff 12/12: Negative OSH C. diff 12/13: Positive OSH Stool Culture 12/10: No growth C. diff 12/15: Negative Radiology/Imaging: OSH CT scan 2nd read: Marked thickening of colonic wall suggestive of pseudomembranous colitis. Small amount of ascites. Diverticulosis without evidence of diverticulitis. Abd X-ray 12/15: Partial small bowel obstruction. No free subdiaphragmatic air Assessment: 52 yo female with a h/o hypothyroidism and Grave's disease who presented initially to an OSH with 2-3 days of abdominal pain, nausea, and bloody diarrhea. Upon transfer to [facility], she was found to havemicroangiopathic hemolytic anemia with decreasing platelet and Hgb and worsening renal function. She has also experienced some cognitive dysfunction the last couple days, all consistent with TTP/HUS.She was initiated on Plasma exchange and reports that her abdominal cramping and diarrhea have improved. CT scan, however, shows extensive thickening of the colon but OSH stool cultures have been negative and 3 out of 4 C. diff screens (here and at OSH) have also been negative. Clinically this also does not look to us like a C. diff infection. More classically, E. Coli 0157 causes TTP/HUS so we would recommend having our microbiology lab culture stool, even though the OSH stool culture was negative. When stool culture is sent, please call the microbiology lab ([phone]) so they will not cancel the stool culture, since the patient has now been hospitalized for several days. Please also specify in the order requisition that we are specifically concerned for E. coli TTP/HUS. Cipro has been stopped and should remain off as this can cause clinical worsening in E. Coli HUS. Because we don't think this is C. Diff, we recommend the Flagyl also be stopped and patient be monitored off antibiotics. The only other test we would recommend wouldbe an HIV screen as this can cause TTP, but HIV would not necessarily explain the patients GI findings. Recommendations: ?? Stop Flagyl ?? HIV test ?? Send stool culture and specify in order requisition concern specifically for E. Coli 0157 (and tell lab not to cancel culture) ?? Should have a repeat CT scan of abd/pelvis in a few weeks to evaluate for resolution of colonic thickening and if still abnormal, should have a colonoscopy. ID Consult Recommendations as above. We will follow up on the repeat stool culture and HIV testing,but please call with further questions or concerns. Cody Posada MD 12/16/2012 4:28 PM ID Attending Nurse who developed acute onset bloody diarrhea without prior antibiotic exposure, subsequent identification of focal area of bowel wall thickening, and development TTP/HUS syndrome. There are many causes of microangiopathic hemolytic anemia, some of them infectious like Shiga toxin-producing E coli, and chronic HIV infection. C diff infection has been reported in association with HUS (not TTP that I could find), but this is very rare. In fact, I would guess that mathematicallythe presence of TTP/HUS makes C diff less likely since the combination is so rare. In addition, thept's presentation is not suggestive of C diff: no antibiotic exposure, atypical clinical presentation with bloody diarrhea, three negative tests and potential for false positives given imperfectly specific tests multiple repeated. By contrast, one doesn't need unusual risk factors to acquire E coli O157:H7, her presentation with bloody diarrhea is consistent with this disease, and specific testing for this process has not been done. Notably, when this is suspected antibiotics should be withheldsince epidemiological and animal studies suggest they may in fact precipitate disease pathogenesis.So I would test for this specifically with stool culture which micro lab can check for E coli sorbit ol metabolism and probe for toxin-producing strains via fluorescent test (or a PCR, can't remember which they use here). This patient is, like all of us who have had sex, at risk for HIV infection, although not highly so, and since HIV infection (undiagnosed in approximately 20% of [place] cases) is one known cause of TTP, I think it's reasonable to seek it. Cancers are on the long list of non-infectious causes of TTP, and while the pt's colonic findings are more suggestive of infection than a mass lesion, this should be kept in the DDx. If this resolvesover time then concern for cancer can be set aside, but if not then would investigate further with endoscopy. Notably, this woman who is over 50 has never had colon cancer screening so this is a reasonable procedure to encourage once she has weathered the current storm. - Would discontinue Flagyl - Would send stool for culture, giving lab a heads up that (1) yes we want this test even thought patient has been hospitalized for a bit [routine practice is to discard samples from hospitalized ptsgiven cost and usual low yield thereof] and (2) that we're curious specifically about E coli O157:H7 - Would send HIV serology (to which patient agreed) I have confirmed the above findings independently by talking with the patient, examination the patient, and perusing the relevant laboratory, microbiological, pathological, radiological and other data. * Consult Note - Tyson Connolly MD - 12/16/2012 3:35 PM EDT Patient Name: Anum Henriquez Patient Age: 52 y.o. 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 The patient presented to an OSH on 12/10 with abdominal pain and bloody diarrhea. She was started on Cipro and Flagyl, with a subsequent drop in her H/H and plts (40s) and an elevation in her LDH (reportedly >1000). She was [place] [facility] [place]. A peripheral smear showed schistocytes, and the patient's hematocritdecreased significantly (low-20s). Given concern for TTP- HUS, the patient was started on plasmapheresis. The Endocrinology service was contacted with concern that the patient's presentation was potentially due to a vasculitis, with methimazole a potential cause for the vasculitis. The patient reports feeling somewhat better. She reports that her Graves' disease has been well-controlled on low-dose methimazole for over 5 years. She reports that her eye disease improved once shestarted treatment and has remained stable for years. She denies any symptoms of hyperthyroidism (palpitation, nervousness, skin/hair changes, etc.). 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 - Hyperlipidemia Relevant inpatient medications: - Methimazole 5 q day (same as outpatient dose) PE: - Vitals: 98.1, 132/80, 91, 20, 97% on RA - Gen: AAO x 3, NAD - HEENT: + stare with lid lag - Neck: No thyromegaly, no thyroid bruit - CV: RRR, no M/C/R - Pulm: CTAB - Abd: +BS, mild diffuse TTP - Ext: 2+ edema, mild tremor - Derm: No rashes or purpura Relevant Labs (12/16/2012): - TSH: 3.68 - Free T4: 0.88 Assessment: The patient is a 52-y/o lady with a PMH significant for Graves' disease (on methimazole) who was recently transferred from an outside hospital with concern for TTP/HUS, with Endocrinologyconsulted with the question of whether her presentation could be consistent with a methimazole-induced vasculitis. 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 Additionally, methimazole (as well as propylthiouracil) has been linked with YBF-AMYV-abaelhfwlm vasculitis on multiple occassions (Mesha SINGH, Randee S, Collins S, et al. Clinical characteristics of myeloperoxidase antineutrophil cytoplasmic antibody-associated vasculitis caused by antithyroid drugs. J Clin Endocrinol Metab. 2009 Jan;94(8):2806-11).Fortunately, the patient's Graves' disease seems to be well controlled on a minimal dose, with a high-normal TSH and mildly low free T4. As such, stopping the patient's methimazole and observing seems to be appropriate for both reasons. Recommendations: - As explained above, would stop methimazole (effects will still be see for over a week) - Will follow MPO-ANCA, if positive would raise suspicion for a methimazole- induced vasculitis, if negative would make this less likely (unclear effect of plasmapheresis on this lab) - To further assess her current autoimmunity, would check thyroid-stimulating immunoglobulin (TSI) as low levels would likely indicate that her Graves' has burned out and that further treatment is unlikely to be needed (if possible add on to pre-plasmapheresis labs to avoid potential false negatives) - Would not start a beta-kirstie at this time, if patient become tachycardic with stopping methimazole could use atenolol 25-50 q day - Will continue to follow, please page with questions - Patient seen and discussed with the attending Dr. Connolly, official recommendations to follow Minor Kebede MD Fellow, Endocrinology 12/16/2012 I saw this patient with Dr Kebede . I reviewed the ulloa portions of the history and physical exam, and reviewed pertinent lab data. I answered all patient questions. I was involved in all medicaldecision making and agree with this plan. I have known Ms Dunbar for over 15 years, and started her on methimazole for mild graves hyperthyroidism associated with significant proptosis. Over time her hyperthyroidism has required less medication. Currently she does not have a goiter on exam and her thyroid tests show a TSH > 3, indicating that we could reduce her methimazole dose further and perhaps stop it. In the context of a possible drug induced vasculitis or TTP, I think it is prudent to stop the methimazole and recheck T4 andTUP in 2-3 days to see if they are rising, which would prompt starting a beta kirstie to prevent tachyarrhythmias. On addition, her TSI, if unaffected by plasmapharesis, should predict whether there is a concern for recurrence of graves disease or not. Unfortunateley,. Should her hyperhyroidism recur , she is poor subject for surgery or for 131 iodine therapy. Her proptosis remains significant , on abase of 100 mm her eyes are out 24 mm (nl is < 20). However, her eyes do not appear irritated at this time. * Plan of Care - Erika Tracy RN - 12/16/2012 5:29 AM EDT Problem: Pain, Acute (Adult, Obstetric) Goal: Acute Pain: Acceptable Pain Control/Comfort Level - Pain, Acute (Adult, Obstetric) Outcome: Present (see interventions, notes) Pt. Reported abdominal pain 2/10 overnight though did not wish to take medication for the discomfort. Pt. Also c/o pain to lower L bicep, stating it felt like something sharp was poking her. MD aware Problem: Trauma/Injury Risk (Adult, Obstetric) Goal: Trauma/Injury Risk: Absence of Trauma/Injury/Falls Outcome: Present (see interventions, notes) Pt. Is weakened. Up w/1 standby assist to bathroom overnight, a little unsteady; pt. Repositioning in bed by herself. Calls for assist as needed Problem: Bowel Obstruction (Adult) Goal: Prevent/Manage Potential Problems Based on my scope of practice, I assessed for signs and symptoms of potential problems that could be present as documented. Outcome: Present (see interventions, notes) Pt. W/c/o nausea 1x overnight, given 10 mg PO compazine w/good effect. Comments: Pt. Given total of 4 runs 20 mEq KCL IV which completed this sharifa. Pt. W/generalized 2+ edema; R hand/arm seems more edematous overnight, pt. Reported that it felt, tighter MD assessed pt. Pulses present, warm to touch, though pale. * Plan of Care - Aman Guillen RN - 12/15/2012 8:26 PM EDT Problem: Knowledge Deficit (Adult, Pediatric, Wing, NICU, Obstetric) Goal: Knowledge Deficit: Knowledgeable about Subject/Topic Outcome: Outcome achieved Date Met: 12/15/12 Peripherally Inserted Central Catheter (PICC) Teaching Sheet: Discussed risks/benefits of PICC with pt. Verbalizes understanding. Peripherally inserted central catheters (ifsu-ww-sllg) (PICC) are used when you need IV (intravenous) medicines and fluids. A catheter is a small flexible plastic tube. The catheter is put in througha vein under your skin. A vein is a tube inside your body that carries blood from the body to the heart. The catheter is usually put into a vein on the inside of your upper arm. Then it is threaded up this vein and ends in the blood vessel near your heart. The PICC catheter may be used for taking blood for laboratory tests. You may also get IV fluids andmedicines quickly and easily. Having the catheter may keep your arm from being stuck many times with a needle. The catheter will have 1-3 small tails (tubes) coming from your arm where the catheter was put in. Why do I need a PICC line or midline catheter? PICC lines are used for digital specialist treatments. PICC lines may be used for up to a year. They areoften put in to give you IV medicines at home. You may need a PICC catheter because caregivers cannot use smaller veins in your body. Smaller veins may be damaged, or they may have poor blood flow. ??? Catheters are also used in case of emergency when you would need medicines or fluids very quickly. ??? The following are medicines and treatments you may get when you have a PICC line. ? Antibiotics. These are medicines to prevent infection. ? Frequent blood sample collection. ? IV medicines that would make your smaller veins sore or damaged. ? Receiving IV fluids for a long period of time. ? Pain medicine. ? Total Parenteral Nutrition: This is also called TPN. TPN is a special liquid food that goes directly into your veins. ? Blood ? Chemotherapy (Medicine for cancer) What are the benefits of having a PICC line put in? Having a PICC line may keep your arm from being stuck many times with a needle to draw blood orstart an IV (intravenous catheter) . ??? Through a PICC catheter, you may have blood taken for tests. You may also get IV fluids and medicines quickly and easily. ??? Small veins can be damaged or irritated by certain drugs or nutritional solutions. A PICC line helps to decrease vein irritation from antibiotics, IV pain drugs, or IV cancer drugs. ??? A PICC line can be left in place when you go home. If you go home with a PICC line in place, home care can be set up via the nurse Process Environmental Technician to help you. What are possible complications of having a PICC line put in? Some possible complications are: ??? bruising, swelling, or infection in the arm with the PICC line ??? mal-positioned catheter (catheter tip in wrong place) ??? occlusion (blocked catheter) ??? mechanical phlebitis (vein irritation) and thrombosis (clot) Your doctor is the person you should talk to if you have questions about what would happen if you do not choose to have a PICC line put in. Your doctor can talk to you about other choices you may have. What should I expect when it is put in? A written consent that gives your ok to have it put in needs to be signed after you understand thatyou are going to have a PICC put in, and all your questions about the procedure have been answered to your satisfaction. This is a safety feature that the hospital practices before doing procedures. An experienced nurse who has been through special training and education will be putting this catheter in. The procedure is done in a specially equipped room in Interventional Radiology on the third floor. The PICC nurse will first talk to you about any questions that you may have. The PICC nurse will explain to you what is going to be done before starting. Once you arrive in the procedure room in Interventional Radiology, the PICC nurse will then set up for the procedure. She will unwrap the sterile kit and open the needed supplies. A gown and mask andgloves will be worn while putting it in. An ultrasound machine will be used to help guide the catheter in the right place. This machine uses a handle with sound waves to find the vein. The area on your arm where the catheter will be put in is then numbed with a medicine put under your skin with a tiny needle. The nurse will then put in the catheter using fluoroscopy (a type of x-ray) as a guide. Once the catheter is in your vein, it will be threaded up your arm to the area beforeyour heart. While it is being threaded, you may be asked to turn your head. When the catheter is in, the nurse will place a small dressing on the site along with a little antonio which will help keep the catheter in place. After the procedure is done, a radiologist (doctor in x-ray department) will look at your x-ray to make sure that the end of the catheter is in proper position to give your fluids and/or medications. What should I expect in the care of my PICC? A dressing that is specially made to prevent infections will be put on. After this, the dressing will only be changed once a week unless it needs it sooner. If you go home with the catheter in, you may take a shower as long as you keep the site dry. You can do this by wearing a specially fitted PICC protector that will be provided to you before dischargefrom the hospital. The dressing at the site must be kept clean and dry. It is important that you watch for signs of infection at the site. Your healthcare provider should be notified if these occur: ??? Redness ??? Swelling ??? Pus ??? Pain at the site Other reasons to notify your healthcare provider are: ??? Catheter becomes partially or totally removed ??? Unable to infuse medication/fluid ??? Unable to draw back blood from the catheter. This may be an early sign that a clot is forming on the end of the catheter. If this occurs, a medicine called Cathflo may be used to dissolve this clot. Ask the PICC nurse or your doctor, any questions you may have so you feel secure in consenting to having a PICC line. References: Vascular Access Device Selection, Insertion, and Management, [employer] 03/15. A Review of the Efficacy, Safety, Use, and Administration of Cathflo, [employer] 2005 * Plan of Care - Jayden Gutierrez RN - 12/15/2012 6:00 PM EDT Problem: Bowel Obstruction (Adult) Goal: Prevent/Manage Potential Problems Based on my scope of practice, I assessed for signs and symptoms of potential problems that could be present as documented. Outcome: Present (see interventions, notes) Abdominal X-ray performed and read shows concern for possible partial SBO. MD notified and diet changed to full liquid. Pt continues with persistent nausea, no vomiting this shift. Nausea well controlled with zofran/compazine. Intake modest. * Plan of Care - Jayden Gutierrez RN - 12/15/2012 5:58 PM EDT Problem: Pain, Acute (Adult, Obstetric) Goal: Acute Pain: Acceptable Pain Control/Comfort Level - Pain, Acute (Adult, Obstetric) Outcome: Present (see interventions, notes) Pt reports abdominal cramping, well controlled with occasional IV dilaudid. Problem: Trauma/Injury Risk (Adult, Obstetric) Goal: Trauma/Injury Risk: Absence of Trauma/Injury/Falls Outcome: Present (see interventions, notes) PLT 41 and 1x loose stool with nicola red blood streaks. No other si/sx bleeding. Bleeding precautions maintained. Pt calls appropriately for 1x assist. Problem: Hemolytic Uremic Syndrome (Pediatric) Goal: Prevent/Manage Potential Problems Based on my scope of practice, I assessed for signs and symptoms of potential problems that could be present as documented. Outcome: Present (see interventions, notes) 2nd round of plasma phoresis this AM. Mild pruritic/uticaric reaction, see progress note. C-diff negative and contact precautions removed. Educated pt/family about TTP and gave them educational handouts and they were satisfied with answers. Pt with phoresis catheter on right neck and we are using purple lumen. x2 lumen PICC ordered for 78. Mg+ 0.72 and 2 grams repleted IV. K+ 3.3 and 4x runs 20meq ordered. LDH trending down to 417. Creatinine trending up to 2.12. Pt had been NPO overnight withlow urine output and IVF ordered at 75/hr, PO fluids encouraged. * Plan of Care - Erika Tracy RN - 12/15/2012 6:32 AM EDT Problem: Pressure Ulcer Risk (Using Say Scale) (Adult, Obstetric) Goal: Pressure Ulcer Risk (using Say Scale): Tissue Integrity Outcome: Absent and monitoring Pt. Is at risk for skin breakdown. Pt. Moves w/encouragement. Pt. Reports that back is painful r/t lying in bed, no skin breakdown noted at this time Problem: Pain, Acute (Adult, Obstetric) Goal: Acute Pain: Acceptable Pain Control/Comfort Level - Pain, Acute (Adult, Obstetric) Outcome: Absent and monitoring Pt. W/out c/o pain at this time. Earlier pt. Had c/o pain to back, and received 0.4 mg IV dilaudid w/good effect. Problem: Trauma/Injury Risk (Adult, Obstetric) Goal: Trauma/Injury Risk: Absence of Trauma/Injury/Falls Outcome: Present (see interventions, notes) Pt. Has remained in bed this shift. Had pheresis last sharifa. Due again ~ 0900 today, pt. Calls for assist as needed, at bedside. Comments: Pt. C/o nausea this AM, received PO compazine a short time ago. No stools overnight; pt. Has remained afebrile this shift. Due for pheresis ~0900 this AM. * Consult Note - Lonny Storm MD - 12/14/2012 9:06 PM EDT TRANSFUSION MEDICINE SERVICE Inpatient Consult Note Transfusion Medicine Attending: MD Elliot PhD Transfusion Medicine Fellow/Resident: MD Dave Date of Consultation: 12/14/2012 Reason for Consult:: We are seeing Anum Eliza Henriquez at the request of Drs. Gomez (Fellow) and Heather (Attending) for the evaluation of Therapeutic Plasma Exchange (TPE) . I have reviewed the available records, interviewed and examined the patient. Indication / Diagnosis: TTP-HUS ASFA Category: I Grade: 1A History of Present Illness: Mrs Henriquez (prefers Anum) is a 52 year old female with a past medical history of Graves disease (reportedly stable on methimazole for >10 years) who presented to [facility] 6 days ago with watery/bloody diarrhea and abdominal cramping and was subsequently admitted and started on fluids, cipro, and flagyl. Per Heme/Onc note, notable outside labs consist of an admission WBC of13.1 with 89% neutriphils, Hgb 14.5, Plts 151, fecal leukocytes, stool culture negative, negative for Shiga toxin, and 2 stool cultures negative for C Diff (12/10 and 12/12/12) with a third returning positive (12/13/12). She was [place] [facility] [place] after daily labs revealed a drop in platelets from 151 to 66, increase of Cr from 0.8 to 1.2, and elevated LDH at 1187 (all per OSH). [facility] labs confirmed thrombocytopenia at 46 (currently 44), increasing Creatinine (1.4 at [facility] admission, currently 1.74) LDH of 672, dropping hemoglobin (Per OSH, 14 at initial admit, 11.9 at [facility] admit, currently 10.8), and low haptoglobin (<10). INR and fibrinogen are normal. Additionally, a peripheral blood smear revealed thrombocytopenia and anemia with schistocytes, rare spherocytes c/w microangiopathic hemolytic anemia. 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 PMH: Graves Disease, controlled >10years on methimazole, per patient Labs: Recent Labs Basename 12/14/12 0549 12/13/12 2200 WBC 8.3 8.7 HGB 10.8* 11.9 HCT 31.8* 34.4 PLATELET 44* 46* NEUTROABS 5.70 -- Recent Labs Basename 12/14/12 0549 12/13/12 2200 NA 138 138 K 3.7 3.8 CL 114* 113* CO2 19* 18* BUN 18 14 CREATININE 1.74* 1.45* Recent Labs Basename 12/14/12 0549 12/13/12 2200 CALCIUM 7.8* 7.5* MAGNESIUM -- 0.55* PHOS -- 1.4* Recent Labs Basename 12/14/12 0216 12/13/12 2200 AST -- 30 ALT -- 10 ALKPHOS -- 29* BILITOT -- 1.0 BILIDIR -- 0.2 LDH 672* Not Perf Recent Labs Basename 12/13/12 220 INR 1.3* PT 16.5* PTT 27 Physical Exam: GENERAL: Drowsy but, conversant, pleasant, no evident distress CARDIAC: RRR, no murmurs LUNGS: CTAB ABDOMEN: Diffusely tender, soft, + bowel sounds EXTREMITIES: Mild 1+ pitting edema in bilateral thighs and ankles (sock-line imprint), new since yesterday per patient. Non-tender, slightly warm. Normal peripheral pulses. 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 With an element of DELVIS (increasing creatinine), a presumptive diagnosis of TTP-HUS can be made in this case. The classic TTP pentad includes MAHA, thombocytopenia, kidney involvement, fever, and neurologic changes, and although the patient has only 3 of these 5, treatment is so effective (see below) that plasma exchange is considered a first line therapy for a presumptive diagnosis based on as few criteria as MAHA+thrombocytopenia alone. HUS presents similarly but is classically preceded by diarrheal illness, caused by shiga-like toxin, in pediatric patients. Though this patient did present with diarrhea, potentially supporting HUS, her age and shiga-like toxin negative status would make this an abnormal HUS presentation. HUS is not completely excluded, however, as a literature search links other diarrheal illness to HUS, including C Diff, for which the patient tested positive on 12/13/12. Thus, at this point, both TTP and HUS are valid considerations prompting initiation of TPE regimen (see below). Also considered is DIC-associated MAHA, however the patient's INR and fibrinogen were normal and she is afebrile withstable vitals, essentially ruling out DIC. In cases of TTP, therapeutic plasma exchange (TPE) is a first line therapy, effectively dropping mortality form >90% to <10% by both removing autoantibodies against [id number] and replacing deficient levels. As the etiology of TTP is based on ADMTS13 deficiency we will await the result of the patient's ADAMTS-13 levels, with low levels confirming the TTP diagnosis. In contrast to TTP, TPE treatment for HUS has less of an established role, and so differentiating between TTP and HUS is important when considering a future treatment regimen. However, at this point, with so much overlap in clinical presentation between TTP and HUS, it is recommended to administer TPE while awaiting [id number] results so as not to miss an opportunity to effectively treat the otherwise often-fatal TTP. 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 Once these criteria are met, a taper regimen may be considered. We will also await [id number] results, which will highly factor into our ultimate diagnosis and treatment plan. Finally, as this patient is AB positive, resources may be a problem as AB plasma can be difficult to find. Currently, we have enough AB+ plasma for several TPE procedures over the next few days, but should we require long-term treatment, a discussion of how to most effectively utilize our resourcesmay be necessary. VAHID JACINTO MD 12/14/2012 ATTENDING MD ATTESTATION: I personally interviewed and examined the patient and reviewed all clinical and laboratory data. I reviewed the note written by Dr. Jacinto and agree with the findings, assessment and plan. I would add a cautionary note on the optimal way to interpret the BRMPDS25 findings, when they are back. A very low KQJZRY69 level (<5%), (especially when combined with the presence of an inhibitor (i.e. antibody)) is highly specific for TTP and the diagnosis is essentially confirmed if this result is returned. However, the test is only about 2/3 sensitive....that is, a negative result (normal levels of AJMKXQ27) does not rule out TTP, since as many as 30% of TTP patients do not have loss of VKDHJH64; this presumably involves modulation of another component of the pathway that involves cleaving LMW VWR multimers but these other components are not as well defined, and there is no clinically useful test for these, currently. Also, using RDKSGW26 level itself to assess treatment efficacy is not recommended, since some patients recover clinically after a course of plasmapheresis, but never recover their FVMAJX47 levels. This phenomenon supports the model that that TTP is likely a two-hit disease. Loss of FBLVOS52 is not sufficient to bring on clinical disease but some other stressor is needed. It can be speculated that Anum's recent GI symptoms may constitute that second stressor. Also noteworthy is that those patients that recover clinically yet continue to have low JYRPUD12 levels appear to be more likely to relapse. Thank you for involving us in the care and treatment of this patient. LONNY STORM MD 12/15/2012 * Consult Note - Fabi Bliss MD - 12/14/2012 5:09 PM EDT Images from the original note were not included. Inpatient Hematology/Oncology Consult Hematology/Oncology Attending: Dr. Fabi Bliss MD Initial Consult Date:12/14/2012 Admission Date: 12/13/2012 Consult Question: We are seeing Anum Henriquez for evaluation of hemolytic anemia and thrombocytopenia. I have reviewed the available records, interviewed, and examined the patient. HPI: 52 y.o. woman previously healthy who developed diarrhea, first watery brown then bloody, about6 days ago (last Sunday). She does not identify sick contacts or undercooked or problematic foods. She was admitted to [facility] on 12/10/12 where they gave her IV fluids, cipro and flagyl, and send stool studies (see results below). She has been having abdominal pain and cramping since Sunday and continues to have some now. No reported fevers that I can find. There was a noted drop in platelets yesterday from 151 to 66 (per OSH AUG, pt did not receive heparin), rest of DIC panel showed INR of 1.3, normal fibrinogen, elevated LDH at 1187. Also bump in Cr to 1.2 from 0.8 prior. Therefore, she was transferred to [facility] [place] for further management. Hospital medicine calls us today as the patient has developed hemolytic anemia and thrombocytopenia. Nephrology has also been consulted for DELVIS. She has no history of hematologic problems. No previous bloody diarrhea or GI problems. Past Medical History: Patient Active Problem List Diagnoses ??? Hemorrhagic colitis CT shows sparing of the sigmoid and rectum ??? Thrombocytopenia ??? Hyperthyroidism Graves disease stable on methimazole for 10+ years. 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 Lives at home with her . They speak Lithuanian as their primary language and I believe they are [place], although she was born here in . She does not smoke or drink. Family History: No h/o hematologic problems. Father had bladder cancer. ROS: General: Denies confusion, headache Eyes: Denies pain, vision changes ENT: Denies epistaxis, mouth pain or lesions Cardiovascular: Denies chest pain, pressure or palpitations Respiratory: Denies SOB, othopnea, cough GI: Denies dysphagia,but continues to have abdominal cramping and pain and nausea. Diarrhea has resolved. No BM in 2 days : Denies dysuria, hesitation Musculoskeletal: Denies arthralgia, myalgia, but feels overall weak. Endocrine: no hyperthyroid symptoms currently Neuro: Denies numbness or tingling, weakness Hem/Lymph: Denies new lumps or bumps Skin: Denies rash or concerning lesions Other systems reviewed and negative. Meds: reviewed in [facility], notable for following: Scheduled Meds: ??? sodium chloride 0.9 % 5 mL Intravenous Q12H ??? methimazole 5 mg Oral Daily ??? chlorhexidine 15 mL Oral BID ??? sodium chloride 0.9 % 5 mL Intravenous Q12H ??? esomeprazole 40 mg Oral Daily Or ??? esomeprazole 40 mg Intravenous Daily ??? metroNIDAZOLE 500 mg Intravenous Q8H KATIE ??? ciprofloxacin 200 mg Intravenous Q12H ??? magnesium sulfate 2 g Intravenous Once ??? sodium phosphate 15 mmol Intravenous Once Continuous Infusions: ??? sodium chloride 0.9% ??? DISCONTD: dextrose 5% lactated ringers 125 mL/hr (12/14/12 1145) ??? sodium chloride 0.9% 150 mL/hr (12/14/12 0630) ??? DISCONTD: sodium chloride 0.9% Stopped (12/13/12 2224) PRN Meds:.fentaNYL (PF), midazolam, acetaminophen, ondansetron, ondansetron, zolpidem, HYDROmorphone, prochlorperazine, prochlorperazine, DISCONTD: HYDROmorphone Outpatient medications: No current facility-administered medications on file prior to encounter. Current Outpatient Prescriptions on File Prior to Encounter Medication Sig Dispense Refill ??? methimazole (TAPAZOLE) 10 mg tablet take 1/2 tablet by mouth once daily 45 tablet 3 ??? aspirin 81 mg EC tablet ??? Doavkwmucwb-Iimxnvcwv-Cto C-Mn 500-400 mg Cap ??? Galena-3 Fatty Acids-Vitamin E (OMEGA-3 FISH OIL) 1,000-5 mg-unit Cap ??? CALCIUM ORAL Allergies: Erythromycin base; Milk; and Milk based formula Physical Exam: Last value Range last 24 hrs Temperature Temp: 36.7 ??C (98.1 ??F) Temp: [36.4 ??C (97.5 ??F)-36.9 ??C (98.4 ??F)] Heart Rate Heart Rate: 85 Heart Rate: [81-91] Blood Pressure BP: 119/73 mmHg BP: (110-125)/(70-77) Respiratory Rate Resp: 19 Resp: [12-20] SpO2 SpO2: 98 % on RA SpO2: [96 %-100 %] Intake/Output Summary (Last 24 hours) at 12/14/12 1727 Last data filed at 12/14/12 1400 Gross per 24 hour Intake 2101.83 ml Output 580 ml Net 1521.83 ml Telemetery: NSR Constitutional: alert, NAD, conversant and pleasant Eyes: Non-icteric, not injected, PERRL, EOMI ENT: MM moist, no oral lesions, no thyromegaly Cardiovascular: RRR, no m/r/g, 2+ radial and pedal pulses Respiratory: decreased breath sounds at bilateral bases, otherwise lungs are clear in other becker Hem/Lymph/Immuno: No cervical or supraclavicular SUNIL GI: Soft, but diffusely tender : No CVA tenderness Skin: No rash or lesions noted Neuro: CNII-XII intact, moves all extremities Extremities: some 1+ pitting edema in dependent areas of flanks and posterior thighs but none at ankles Skin: no rash or petechiae noted on trunk, arms, face, or legs Labs: Labs at [facility]: 12/10/12: WBC count of 13.1 w/ 89% neutrophils, Hgb 14.5, Plts 151. Noted to have fecal leukocytes. Cdiff toxin negative. 12/10/12: stool culture negative, negative for Shiga toxin 12/12/12: C. Diff toxin negative 12/13/12: C. Diff toxin positive 12/13/12: drop in platelets today from 151 to 66, INR of 1.3, normal fibrinogen, elevated LDH at 1187. Also bump in Cr to 1.2 from 0.8 prior. Recent Labs Basename 12/14/12 0549 12/13/12 2200 WBC 8.3 8.7 HGB 10.8* 11.9 PLATELET 44* 46* Lab Results Component Value Date NEUTROABS 5.70 12/14/2012 Recent Labs Basename 12/14/12 0549 12/13/12 2200 NA 138 138 K 3.7 3.8 CL 114* 113* CO2 19* 18* BUN 18 14 CREATININE 1.74* 1.45* GLUCOSE 113 111 CALCIUM 7.8* 7.5* MAGNESIUM -- 0.55* PHOS -- 1.4* Recent Labs Basename 12/13/12 2200 PROT 4.6* ALBUMIN 2.3* BILITOT 1.0 BILIDIR 0.2 AST 30 ALT 10 ALKPHOS 29* Recent Labs Basename 12/13/12 2200 INR 1.3* PT 16.5* PTT 27 Component Latest Ref Rng 12/14/2012 12/13/[address] % 0.5 - 2.4 % 1.[address] Abs 0.027 - 0.095 x10(6)/mcL 0.040 Immature Retic% 2.3 - 15.9 % 23.7 (H) Reticulated Hgb 28.8 - 38.9 pg 30.4 Plat Immature % 0.0 - 7.4 % 8.7 (H) Haptoglobin 30 - 200 mg/dL <10 LDH 110 - 220 unit/L 672 (H) SEN Negative Pathology: Peripheral blood smear (reviewed by myself & Dr. Bliss and confirmed by pathology) Anemia with schistocytes, rare spherocytes c/w microangiopathic hemolytic anemia. Thrombocytopenia. Radiology/Studies: 1. CT Abdomen 12/13/12: Marked thickening of colonic wall suggestive of pseudomembranous colitis. Small amount of ascites. Diverticulosis without evidence of diverticulitis. 2. XR Abdomen 12/13/12: No evidence of high-grade mechanical obstruction or free subdiaphragmatic air. ASSESSMENT: The patient is a 52 y.o. 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 Her laboratory studies and clinical scenario are consistent with this. Shehas normal DIC panel (PT, PTT, fibrinogen), worsening renal failure (Cr 0.8 to 1.7), worsening thrombocytopenia (150s to 40s) and anemia (Hgb 14.5 to 10), and microangiopathic hemolytic anemia (high LDH, low haptoglobin, multiple schistocytes on smear). Her bilirubin is not yet elevated nor is her BUN, but this could be due to catching her disease early. Also, she has not received any heparin products, so this is not HIT. She is relatively stable and ok to transfer to the floor. We will be happy to transfer her to the inpatient hematology service and manage her care from here. I have spoken with Nephrology, who also agrees with the diagnosis of TTP-HUS. I have also spoken with transfusion medicine, who agrees with diagnosis and treatment with plasma exchange. She has poor peripheral veins, by our evaluation (and per her history). Therefore, we will have IR place a temporary pheresis/dialysis line (central, IJ) in preparation for plasma exchange. The trigger for her TTP-HUS was likely the diarrheal illness. Classically, this is due to shiga-toxin producing bacteria. However, she was negative for this and had C. Diff positive instead (CT scan also shows pseudomembranous colitis). C. diff has been reported as a cause (see references below) and plasma exchange is still indicated and seems to be helpful. In children, diarrhea associated HUS is treated with supportive care and plasma exchange is not indicated, but in adults it is still recommended (see TTP reference below). We will therefore use plasma exchange and will also treat with Flagyl for C. diff. Plasma exchange works by replacing ADAMTS 13 activity and removing autoantibodies against CBNSUD44,etc. Therefore, we will check an ADAMTS 13 level before starting plasma exchange. However, even if the level is not low, plasma exchange appears to still be beneficial (see TTP reference below). The most accurate diagnostic test is the clinical scenario, which is very consistent as above. *Note: cases of hemolytic uremic syndrome associated with clostridium difficile have been reported 1 - (Sanjay , Alida SV, Antonio T, Matthew N. Hemolytic uremic syndrome associated with Clostridium difficile infection. Clin Nephrol. 2013 Jun 25.) 2 - (Veronica CC, Jennifer DL, Alejandra KM, Navdeep GL. 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 Am J Kidney Dis. 2003 October;41(5):E14.) TTP Reference: Chivo FRANCIS. Clinical practice. Thrombotic thrombocytopenic purpura. N Engl J Med. 2005October 12;354(18):1927-35. Review. PLAN: -transfer to [facility] and to inpatient hematology service, Dr. Bliss as attending -IR to place pheresis central line -Transfusion medicine (Dr. James Jacinto) to start plasma exchange tonight and continue daily for now -avoid platelet transfusions, no anticoagulation, etc. -continue Flagyl for Clostridium difficile, ok to change to PO tomorrow, if tolerating -plan to stop Cipro tomorrow if no other signs of infection -send ADAMTS 13 level -appreciate nephrology consult, no need for dialysis now but will monitor for possible future need -monitor abdomen with serial exams, repeat X-ray if worsening symptoms, advance diet as tolerated tomorrow Ming Gomez MD Pager [phone] Fellow, Hematology/Oncology ++++++++++++++++++++++++++++++++++++++++++++++++++++++++++++++++ Attending Addendum: I personally saw, examined and interviewed the patient. I agree with the history, physical, assessment and plan in the note above. I have seen and examined the patient on rounds and I have discussed the management with the team. I have reviewed all pertinent laboratory and radiographic findings. I a gree with the plan and have the following additional corrections and/or comments. I saw Ms Henriquez and reviewed the outside hospital information in detail with Dr gomez. I agree with his note. Her exam is notable for distended tender abd w/o peritoneal signs, but otherwise normal exam. She presents with bloody diarrhea and in the last few days she has drop in H/H and plt and rising Creat. LDH is elevated. I personally reviewed her smear and she has schistocytes. DIC screen is normal. This clinical picture is consistent with TTP-HUS. I explained the diagnosis and recommended therapy of plasma exchange with pt and her . Pheresis line explained. Pt is overwhelmed butagrees to the planned therapy. * Miscellaneous - Provider, Scanning - 12/14/2012 2:50 PM EDT * Consult Note - Luis E Trotter MD - 12/14/2012 9:49 AM EDT HYPERTENSION/ NEPHROLOGY CONSULT PATIENT: Anum Henriquez : 1960 REASON FOR CONSULTATION: referred by Dr. raya for DELVIS PMH: hyperthyroidism HPI: 52 y.o. female with h/o hyperthyroidism, who presented as a transfer from osh for several day history of abdominal pain and bloody diarrhea, tested negative for c.diff on first stool sample but positive on the 3 rd sample. Started on cipro/flagyl for hemorrhagic colitis. Labs at admission at OSH were WBC count of 13.1 w/ 89% neutrophils, Hgb 14.5, Plts 151. CT of the abdomen showed thickening of the colon w/ sparing of the distal sigmoid and rectum. No free air was seen. Noted to have a drop inplatelets to 60 and now 44. Pt continues to have severe abdominal pain, no stools since yest morning. Denies any sick contacts. No h/o eating out of the ordinary. Denies any h/o kidney stones before. MEDICATIONS: ??? methimazole 5 mg Oral Daily ??? chlorhexidine 15 mL Oral BID ??? sodium chloride 0.9 % 5 mL Intravenous Q12H ??? esomeprazole 40 mg Oral Daily Or ??? esomeprazole 40 mg Intravenous Daily ??? metroNIDAZOLE 500 mg Intravenous Q8H KATIE ??? ciprofloxacin 200 mg Intravenous Q12H ??? magnesium sulfate 2 g Intravenous Once ??? sodium phosphate 15 mmol Intravenous Once Allergies: Allergies Allergen Reactions ??? Erythromycin Base ??? Milk CIS - Localized Reaction ??? 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 No numbness/ tingling in extremities. Heme - No easy bruising or nose bleeds MS - No red/ swollen joints PHYSICAL EXAM: Temp: [36.4 ??C (97.5 ??F)-36.9 ??C (98.4 ??F)] Heart Rate: [81-91] Resp: [12-20] BP: (110-125)/(70-77) SpO2: [98 %-100 %] Appearance - Alert, uncomfortable de to pain. Skin - No exanthem. HEENT - Sclera white. Mucous membranes moist. Pharynx pink. No nasal discharge. Lymph - No cervical lymphadenopathy. Chest: Lungs clear to ausculatation w/o wheezes/ rhonchi/ crackles. Heart - S1 and S2 clear w/o murmur, gallop, or rub. JVP not elevated. Abd - Soft. + BS. No bruit. Non tender. No organomegaly. Ext -Warm. No cyanosis. No dependent edema. Neuro - No clonus/ asterixis. Muscle strength equal bilaterally. STUDIES: Lab Results Component Value Date WBC 8.3 12/14/2012 RBC 3.74* 12/14/2012 HGB 10.8* 12/14/2012 HCT 31.8* 12/14/2012 MCV 85.0 12/14/2012 MCH 28.9 12/14/2012 MCHC 34.0 12/14/2012 PLATELET 44* 12/14/2012 RDWCV 13.7 12/14/2012 Lab Results Component Value Date Sodium 138 12/14/2012 Potassium 3.7 12/14/2012 Chloride 114* 12/14/2012 CO2 19* 12/14/2012 BUN 18 12/14/2012 Creatinine 1.74* 12/14/2012 Glucose Lvl 113 12/14/2012 Lab Results Component Value Date CALCIUM 7.8* 12/14/2012 Lab Results Component Value Date PHOS 1.4* 12/13/2012 Component Value Date/Time SPGRAVITYUA 1.014 12/13/20122207 PHUADIP 6.0 12/13/20122207 PROTEINUADIP 100* 12/13/20122207 GLUCOSEU Negative 12/13/20122207 KETONESUA Negative 12/13/20122207 UROBILIUADIP Normal 12/13/20122207 BLOODUADIP Moderate 12/13/20122207 NITRATEUA Negative 12/13/20122207 LEUKOESTERUA Trace* 12/13/20122207 WBCUA 3 12/13/20122207 BILIRUBINUA Negative 12/13/20122207 IMPRESSION/ RECOMMENDATIONS: DELVIS- possibilities includes tubular injury due to SIRS like picture, TTP-HUS syndrome, Contrast induced nephropathy(received contrast with CT scan), methimazole induced ANCA vasculitis. Urine spun in lab: lot of granylar casts, debris, normomorphic RBC's. Mildly elevated LDH, low haptoglobin indicate hemolysis. Thrombocytopenia- peripheral smear in process. If schistocytes present, should consult hematology for plasmapheresis. Recs- Check KIANA, ANCA serologies, complements Agree with hydration as doing. Low phos- replete if not already done so. Non anion gap metabolic acidosis- due bicarb loss in diarrhoea. Cont LR. Get records of stool studies from OSH (shiga toxin) Consult radiology for second read on CT scan. Check Urine eosinophils. Em placed for urinary retention. No acute indication for [employer]. Renal dose meds. Avoid nephrotoxins. Seen and Discussed w/ Dr. Sergo greene Pager -[phone] Renal Attending: The patient was examined together with the renal fellow and we examined the urine sediment together as well and I agree with the above note, the urine sediment showed many granular casts and debris which is non specific and can be seen in ATN, contrast nephropathy, HUS, TTP and other causesof acute renal failure including vasculitis, The patient initially presented with abdominal cramps that worsened to abdominal pain and the thrombopenia and hemolytic anemia and renal insufficiency developed only after the patient was hospitalized and treated, ciprofloxacin is a rare cause of TTP and methimazole can cause drug induced ANCA vasculitis similar to Propylthiouracil, because of the unusual timing of the events I would stop these two medications pending cultures, a blood smear and a second read of the abdominal CT which reportedsigmoid sparing which is unusual are still pending, the patient continues to produce urine and has no clinical dialysis needs at this time, if no improvement and if the differential cannot be narrowed would consider renal biopsy provided the platelet count is acceptable * Plan of Care - Gianna Bowens RN - 12/14/2012 6:45 AM EDT Problem: Pressure Ulcer Risk (Using Say Scale) (Adult, Obstetric) Goal: Pressure Ulcer Risk (using Say Scale): Tissue Integrity Outcome: Present (see interventions, notes) At risk for development of pressure ulcers r/t medications, pain, and impaired nutrition. Skin intact on admission. Pt repositioning frequently independently. Will continue to assess skin QS and prn. Problem: Pain, Acute (Adult, Obstetric) Goal: Acute Pain: Acceptable Pain Control/Comfort Level - Pain, Acute (Adult, Obstetric) Outcome: Present (see interventions, notes) Continues to c/o transverse lower abd pain 7-10/10, aching in nature. Rec'd hydromorphone 0.4 mg x2this shift with good effect. Will continue to monitor pain level and effectiveness of interventions. Problem: Trauma/Injury Risk (Adult, Obstetric) Goal: Trauma/Injury Risk: Absence of Trauma/Injury/Falls Outcome: Present (see interventions, notes) At risk for trauma/injury r/t medications, pain, unfamiliar environment, impaired bowel elimination, and sensory deficit. Fall prevention program in place. Bed alarm in use. documented in this encounter Plan of Treatment Pending Results Name Type Priority Associated Diagnoses Date /Time XR VAS venous access (PICC placement) Imaging Routine 12/16/2012 3:28 PM EDT XR VAS venous access (PICC placement) Imaging Routine 12/27/2012 12:2 0 PM EDT Scheduled Orders Name Type Priority Associated Diagnoses Orde r Schedule XR VAS venous access (PICC placement) Imaging Routine Once PRN (for R adiant use) for 1 Occurrences starting 12/15/2012 until 12/15/2012 XR VAS venous access (PICC placement) Imaging Routine Once PRN (for R adiant use) for 1 Occurrences starting 12/26/2012 until 12/26/2012 Scheduled Referrals Name Type Priority Associated Diagnoses Order Schedule OPAT: Order / Recommendation for Post Discharge IV Antibiotic Management Outpatient Referral Routine MRSA bacteremia HUS (hemolytic uremic syndrome) Ordered: 12/27/2012 documented as of this encounter Procedures Procedure Name Priority Date/Time Associated Diagnosis Comments LAB SCAN 01/29/2013 11:49 AM EDT SOFTBALL PLAYER SCAN 12/28/2012 9:39 AM EDT LAB SCAN 12/28/2012 9:38 AM EDT VANCOMYCIN, TROUGH Timed 12/27/2012 2: [address] PICC LINE: CONTACT VASCULAR ACCESS Routine 12/27/2012 12:12 PM EDT DIFFERENTIAL, AUTOMATED Routine 12/28/19 13 3:57 AM EDT PROTHROMBIN TIME Routine 12/27/2012 3:57 AM EDT CBC (WITH DIFF) Routine 12/27/2012 3:57 AM EDT PHOSPHORUS Routine 12/27/2012 3:57 AM EDT MAGNESIUM Routine 12/27/2012 3:57 AM EDT LACTATE DEHYDROGENASE Routine 12/27/2012 3:57 AM EDT BASIC METABOLIC PANEL (NON-FASTING) Routine 12/27/2012 3:57 AM EDT ABO/RH TYPING Routine 12/26/2012 10:31 AM EDT APTT Routine 12/26/2012 10:31 AM EDT ANTIBODY SCREEN Routine 12/26/2012 10:31 AM EDT TYPE AND SCREEN ([facility]JENNIFER) Routine 12/26/2012 10:31 AM EDT FREE THYROXINE INDEX Routine 12/26/2012 3:42 AM EDT DIFFERENTIAL, AUTOMATED Routine 12/27/19 3:42 AM EDT CBC (WITH DIFF) Routine 12/26/2012 3:42 AM EDT T3 TOTAL Routine 12/26/2012 3:42 AM EDT T UPTAKE Routine 12/26/2012 3:42 AM EDT TSH Routine 12/26/2012 3:42 AM EDT T4 TOTAL Routine 12/26/2012 3:42 AM EDT PHOSPHORUS Routine 12/26/2012 3:42 AM EDT MAGNESIUM Routine 12/26/2012 3:42 AM EDT LACTATE DEHYDROGENASE Routine 12/26/2012 3:42 AM EDT BASIC METABOLIC PANEL (NON-FASTING) Routine 12/26/2012 3:42 AM EDT VANCOMYCIN, TROUGH Timed 12/25/2012 6: 29 PM EDT APTT Routine 12/25/2012 3:26 PM EDT PROTHROMBIN TIME Routine 12/25/2012 3:26 PM EDT DUPLEX FOR DVT BILAT ARM Routine 12/25/2012 3:18 PM EDT PERIPHERAL SMEAR REVIEW Routine 12/26/19 13 12:04 PM EDT SMEAR REVIEW REPORT Routine 12/25/2012 1 2:04 PM EDT DIFFERENTIAL, AUTOMATED Routine 12/26/19 13 12:04 PM EDT ERYTHROPOIETIN LEVEL Routine 12/25/2012 12:04 PM EDT CBC (WITH DIFF) Routine 12/25/2012 12:04 PM EDT C3 COMPLEMENT Routine 12/25/2012 12:04 PM EDT C4 COMPLEMENT Routine 12/25/2012 12:04 PM EDT LACTATE DEHYDROGENASE Routine 12/25/2012 12:04 PM EDT HAPTOGLOBIN Routine 12/25/2012 12:04 PM EDT DUPLEX FOR DVT BILAT LEGS Routine 12/25/2012 11:06 AM EDT DIFFERENTIAL, AUTOMATED Routine 12/26/19 13 4:14 AM EDT CBC (WITH DIFF) Routine 12/25/2012 4:14 AM EDT PHOSPHORUS Routine 12/25/2012 4:14 AM EDT MAGNESIUM Routine 12/25/2012 4:14 AM EDT LACTATE DEHYDROGENASE Routine 12/25/2012 4:14 AM EDT BASIC METABOLIC PANEL (NON-FASTING) Routine 12/25/2012 4:14 AM EDT DUPLEX FOR DVT BILAT ARM Routine 12/24/2012 1:45 PM EDT DIFFERENTIAL, AUTOMATED Routine 12/25/19 13 1:00 PM EDT RETICULOCYTE COUNT Routine 12/24/2012 1: 00 PM EDT CBC (WITH DIFF) Routine 12/24/2012 1:00 PM EDT DIRECT ANTIGLOBULIN TEST Routine 12/24/2012 1:00 PM EDT BILIRUBIN TOTAL AND DIRECT Routine 12/24/2012 1:00 PM EDT HAPTOGLOBIN Routine 12/24/2012 1:00 PM EDT VANCOMYCIN, TROUGH Routine 12/24/2012 1: 00 PM EDT LAB SCAN 12/24/2012 9:41 AM EDT PHOSPHORUS Routine 12/24/2012 3:58 AM EDT MAGNESIUM Routine 12/24/2012 3:58 AM EDT LACTATE DEHYDROGENASE Routine 12/24/2012 3:58 AM EDT BASIC METABOLIC PANEL (NON-FASTING) Routine 12/24/2012 3:58 AM EDT DIFFERENTIAL, AUTOMATED Routine 12/25/19 13 3:45 AM EDT BLOOD CULTURE Routine 12/24/2012 3:45 AM EDT CBC (WITH DIFF) Routine 12/24/2012 3:45 AM EDT ABO/RH TYPING Routine 12/23/2012 1:29 PM EDT ANTIBODY SCREEN Routine 12/23/2012 1:29 PM EDT TYPE AND SCREEN ([facility]/JENNIFER) Routine 12/23/2012 1:29 PM EDT VANCOMYCIN, TROUGH Timed 12/23/2012 1: 29 PM EDT BLOOD CULTURE Routine 12/23/2012 9:15 AM EDT PREPARE RBC Routine 12/23/2012 6:40 AM EDT DIFFERENTIAL, AUTOMATED Routine 12/24/19 5:45 AM EDT BLOOD CULTURE Routine 12/23/2012 5:45 AM EDT CBC (WITH DIFF) Routine 12/23/2012 5:45 AM EDT PHOSPHORUS Routine 12/23/2012 5:45 AM EDT MAGNESIUM Routine 12/23/2012 5:45 AM EDT LACTATE DEHYDROGENASE Routine 12/23/2012 5:45 AM EDT BASIC METABOLIC PANEL (NON-FASTING) Routine 12/23/2012 5:45 AM EDT URINE CULTURE Routine 12/23/2012 1:45 AM EDT URINALYSIS WITH REFLEX CULTURE Routine 12/23/2012 1:44 AM EDT HELICOBACTER PYLORI ANTIGEN STOOL Routine 12/22/2012 6:24 PM EDT DIFFERENTIAL, AUTOMATED STAT 12/23/19 1:16 PM EDT BLOOD CULTURE Routine 12/22/2012 1:16 PM EDT CBC (WITH DIFF) STAT 12/22/2012 1:16 PM EDT BLOOD CULTURE Routine 12/22/2012 1:01 PM EDT BLOOD CULTURE Routine 12/22/2012 12:45 PM EDT VANCOMYCIN, TROUGH Timed 12/22/2012 9: 30 AM EDT DIFFERENTIAL, AUTOMATED Routine 12/23/19 5:00 AM EDT APTT Routine 12/22/2012 5:00 AM EDT PROTHROMBIN TIME Routine 12/22/2012 5:00 AM EDT FIBRINOGEN Routine 12/22/2012 5:00 AM EDT CBC (WITH DIFF) Routine 12/22/2012 5:00 AM EDT PHOSPHORUS Routine 12/22/2012 5:00 AM EDT MAGNESIUM Routine 12/22/2012 5:00 AM EDT LACTATE DEHYDROGENASE Routine 12/22/2012 5:00 AM EDT BASIC METABOLIC PANEL (NON-FASTING) Routine 12/22/2012 5:00 AM EDT HEPATITIS B SURFACE ANTIGEN Timed 12/21/2012 7:35 PM EDT VANCOMYCIN, TROUGH Timed 12/21/2012 7: 35 PM EDT MRI BRAIN WWO CONTRAST (GENERIC) Routine 12/21/2012 5:18 PM EDT BLOOD CULTURE Routine 12/21/2012 3:40 PM EDT BASIC METABOLIC PANEL (NON-FASTING) Routine 12/21/2012 3:40 PM EDT VITAMIN B6 Routine 12/21/2012 2:30 PM EDT LAB SCAN 12/21/2012 1:54 PM EDT EXTRACTABLE NUCLEAR ANTIGEN (JACKY) AB Routine 12/21/2012 1:40 PM EDT GREEN TUBE HOLD Routine 12/21/2012 1:40 PM EDT BLOOD GAS ARTERIAL ([facility]) STAT 12/21/2012 1:40 PM EDT VITAMIN B12 Routine 12/21/2012 1:40 PM EDT AMMONIA Routine 12/21/2012 1:40 PM EDT BLOOD CULTURE Routine 12/21/2012 9:21 AM EDT DIFFERENTIAL, MANUAL Routine 12/21/2012 6:50 AM EDT CBC (WITH DIFF) Routine 12/21/2012 6:50 AM EDT PHOSPHORUS Routine 12/21/2012 6:50 AM EDT MAGNESIUM Routine 12/21/2012 6:50 AM EDT LACTATE DEHYDROGENASE Routine 12/21/2012 6:50 AM EDT BASIC METABOLIC PANEL (NON-FASTING) Routine 12/21/2012 6:50 AM EDT PREPARE RBC Routine 12/21/2012 12:55 AM EDT TRANSFUSION REACTION INTERP Routine 12/20/2012 6:28 PM EDT BLOOD CULTURE STAT 12/20/2012 5:00 PM EDT URINE CULTURE Routine 12/20/2012 4:49 PM EDT PRO-BRAIN NATRIURETIC PEPTIDE STAT 12/20/2012 4:10 PM EDT URINALYSIS WITH REFLEX CULTURE Routine 12/20/2012 3:55 PM EDT BLOOD CULTURE STAT 12/20/2012 3:40 PM EDT XR CHEST ONE VIEW STAT 12/20/2012 2:3 0 PM EDT EKG 12-LEAD STAT 12/20/2012 2:21 PM EDT Hypoxia SCAN, PERIPHERAL BLOOD STAT 3 1:55 PM EDT DIFFERENTIAL, AUTOMATED STAT 12/21/19 13 1:55 PM EDT APTT STAT 12/20/2012 1:55 PM EDT PROTHROMBIN TIME STAT 12/20/2012 1:55 PM EDT CBC (WITH DIFF) STAT 12/20/2012 1:55 PM EDT MAGNESIUM STAT 12/20/2012 1:55 PM EDT BASIC METABOLIC PANEL (NON-FASTING) STAT 12/20/2012 1:55 PM EDT ABO/RH TYPING Routine 12/20/2012 12:20 PM EDT ANTIBODY SCREEN Routine 12/20/2012 12:20 PM EDT TYPE AND SCREEN ([facility]JENNIFER) Routine 12/20/2012 12:20 PM EDT H. PYLORI ANTIBODY, IGG Routine 12/21/19 13 12:20 PM EDT PREPARE RBC Routine 12/20/2012 9:45 AM EDT LAB SCAN 12/20/2012 9:17 AM EDT DIFFERENTIAL, AUTOMATED Routine 12/21/19 13 4:50 AM EDT FIBRINOGEN Routine 12/20/2012 4:50 AM EDT CBC (WITH DIFF) Routine 12/20/2012 4:50 AM EDT PHOSPHORUS Routine 12/20/2012 4:50 AM EDT MAGNESIUM Routine 12/20/2012 4:50 AM EDT LACTATE DEHYDROGENASE Routine 12/20/2012 4:50 AM EDT BASIC METABOLIC PANEL (NON-FASTING) Routine 12/20/2012 4:50 AM EDT DUPLEX FOR DVT BILAT LEGS Routine 12/19/2012 10:03 AM EDT FIBRINOGEN STAT 12/19/2012 7:40 AM EDT DIFFERENTIAL, AUTOMATED Routine 12/20/19 3:20 AM EDT CBC (WITH DIFF) Routine 12/19/2012 3:20 AM EDT T3 TOTAL Routine 12/19/2012 3:20 AM EDT T UPTAKE Routine 12/19/2012 3:20 AM EDT T4, FREE Routine 12/19/2012 3:20 AM EDT T4 TOTAL Routine 12/19/2012 3:20 AM EDT PHOSPHORUS Routine 12/19/2012 3:20 AM EDT MAGNESIUM Routine 12/19/2012 3:20 AM EDT LACTATE DEHYDROGENASE Routine 12/19/2012 3:20 AM EDT BASIC METABOLIC PANEL (NON-FASTING) Routine 12/19/2012 3:20 AM EDT CALCIUM IONIZED WHOLE BLOOD, MARTIN Routine 12/18/2012 9:05 PM EDT EGD, UPPER GI ENDOSCOPY (WRVU 2.09) 12/18/2012 4:33 PM EDT upper gi bleeding UPPER GI ENDOSCOPY Routine 12/18/2012 4: 09 PM EDT CALCIUM IONIZED WHOLE BLOOD, MARTIN Routine 12/18/2012 3:50 PM EDT CALCIUM IONIZED WHOLE BLOOD, MARTIN STAT 12/18/2012 2:35 PM EDT SCAN, PERIPHERAL BLOOD Routine 3 4:25 AM EDT DIFFERENTIAL, AUTOMATED Routine 12/19/19 13 4:25 AM EDT CBC (WITH DIFF) Routine 12/18/2012 4:25 AM EDT PHOSPHORUS Routine 12/18/2012 4:25 AM EDT MAGNESIUM Routine 12/18/2012 4:25 AM EDT LACTATE DEHYDROGENASE Routine 12/18/2012 4:25 AM EDT BASIC METABOLIC PANEL (NON-FASTING) Routine 12/18/2012 4:25 AM EDT XR CHEST PA AND LATERAL Routine 12/18/19 13 8:31 PM EDT RED TUBE HOLD Routine 12/17/2012 6:49 PM EDT HEPATITIS C ANTIBODY Routine 12/17/2012 6:49 PM EDT KIANA ANTIBODY SCREEN Routine 12/17/2012 6 :49 PM EDT SMEAR REVIEW REPORT Routine 12/17/2012 2 :24 PM EDT PERIPHERAL SMEAR REVIEW Routine 12/18/19 13 1:00 PM EDT DIFFERENTIAL, AUTOMATED Routine 12/18/19 13 1:00 PM EDT CBC (WITH DIFF) Routine 12/17/2012 1:00 PM EDT PREPARE RBC Routine 12/17/2012 9:35 AM EDT SCAN, PERIPHERAL BLOOD Routine 3 4:00 AM EDT DIFFERENTIAL, AUTOMATED Routine 12/18/19 13 4:00 AM EDT CBC (WITH DIFF) Routine 12/17/2012 4:00 AM EDT LACTATE DEHYDROGENASE Routine 12/17/2012 4:00 AM EDT BASIC METABOLIC PANEL (NON-FASTING) Routine 12/17/2012 4:00 AM EDT STOOL CULTURE SCREEN ([facility]) Routine 12/17/2012 3:32 AM EDT CAMPYLOBACTER ANTIGEN Routine 12/17/2012 3:32 AM EDT CRYPTOSPORIDIUM OOCYST ANTIGEN ([facility]) Routine 12/17/2012 3:32 AM EDT SHIGA TOXIN ASSAY Routine 12/17/2012 3:3 2 AM EDT GIARDIA/CRYPTOSPORIDIUM ANTIGENS ([facility]) Routine 12/17/2012 3:32 AM EDT GIARDIA ANTIGEN ([facility]) Routine 12/17/2012 3:32 AM EDT STOOL CULTURE Routine 12/17/2012 3:32 AM EDT MRI BRAIN WO CONTRAST Routine 12/16/2012 9:02 PM EDT HIV SCREEN, 4TH GENERATION ([facility]) Routine 12/16/2012 6:[address] PICC LINE: CONTACT VASCULAR ACCESS Routine 12/16/2012 3:36 PM EDT CYTOPLASMIC NEUTROPHILIC AB Routine 12/16/2012 2:00 PM EDT PROTEINASE-3 ANTIBODY Routine 12/16/2012 2:00 PM EDT MYELOPEROXIDASE AB Routine 12/16/2012 2: 00 PM EDT C1 ESTERASE INHIBITOR, FUNCTIONAL Routine 12/16/2012 2:00 PM EDT C2 COMPLEMENT Routine 12/16/2012 2:00 PM EDT C3 COMPLEMENT Routine 12/16/2012 2:00 PM EDT C4 COMPLEMENT Routine 12/16/2012 2:00 PM EDT T3, FREE Routine 12/16/2012 2:00 PM EDT TSH Routine 12/16/2012 2:00 PM EDT T4, FREE Routine 12/16/2012 2:00 PM EDT URINALYSIS WITH REFLEX CULTURE Routine 12/16/2012 1:35 PM EDT DIFFERENTIAL, AUTOMATED Routine 12/17/19 13 4:40 AM EDT CBC (WITH DIFF) Routine 12/16/2012 4:40 AM EDT LACTATE DEHYDROGENASE Routine 12/16/2012 4:40 AM EDT HEPATIC FUNCTION PANEL Routine 3 4:40 AM EDT BASIC METABOLIC PANEL (NON-FASTING) Routine 12/16/2012 4:40 AM EDT XR ABDOMEN FLAT AND UPRIGHT Routine 12/15/2012 1:23 PM EDT C. DIFFICILE SCREEN Routine 12/15/2012 7 :42 AM EDT FECAL LACTOFERRIN Routine 12/15/2012 7:4 2 AM EDT DIFFERENTIAL, AUTOMATED Routine 12/16/19 13 3:50 AM EDT CBC (WITH DIFF) Routine 12/15/2012 3:50 AM EDT PHOSPHORUS Routine 12/15/2012 3:50 AM EDT MAGNESIUM Routine 12/15/2012 3:50 AM EDT LACTATE DEHYDROGENASE Routine 12/15/2012 3:50 AM EDT BASIC METABOLIC PANEL (NON-FASTING) Routine 12/15/2012 3:50 AM EDT IR TUNNELED CENTRAL VENOUS ACCESS NON-DIALYSIS Routine 12/14/2012 6:05 PM EDT [id number] ACTIVITY STAT 12/14/2012 2:0 2 PM EDT CYTOPLASMIC NEUTROPHILIC AB Routine 12/14/2012 12:03 PM EDT PROTEINASE-3 ANTIBODY Routine 12/14/2012 12:03 PM EDT MYELOPEROXIDASE AB Routine 12/14/2012 12 :03 PM EDT ABO/RH TYPING STAT 12/14/2012 9:47 AM EDT RETICULOCYTE COUNT STAT 12/14/2012 9: 47 AM EDT ANTIBODY SCREEN STAT 12/14/2012 9:47 AM EDT TYPE AND SCREEN ([facility]ER[place] STAT 12/14/2012 9:47 AM EDT DIRECT ANTIGLOBULIN TEST STAT 12/14/2012 9:47 AM EDT PERIPHERAL SMEAR REVIEW Routine 12/15/19 13 5:49 AM EDT SMEAR REVIEW REPORT Routine 12/14/2012 5 :49 AM EDT SCAN, PERIPHERAL BLOOD Routine 3 5:49 AM EDT DIFFERENTIAL, AUTOMATED Routine 12/15/19 13 5:49 AM EDT CBC (WITH DIFF) Routine 12/14/2012 5:49 AM EDT BASIC METABOLIC PANEL (NON-FASTING) Routine 12/14/2012 5:49 AM EDT LACTATE DEHYDROGENASE Timed 12/14/2012 2:16 AM EDT THYROID STIMULATING IMMUNOGLOBULIN-BELL Routine 12/13/2012 10:42 PM EDT CYTOPLASMIC NEUTROPHILIC AB Routine 12/13/2012 10:42 PM EDT PROTEINASE-3 ANTIBODY Routine 12/13/2012 10:42 PM EDT MYELOPEROXIDASE AB Routine 12/13/2012 10 :42 PM EDT C1 ESTERASE INHIBITOR, FUNCTIONAL Routine 12/13/2012 10:42 PM EDT C3 COMPLEMENT Routine 12/13/2012 10:42 PM EDT C4 COMPLEMENT Routine 12/13/2012 10:42 PM EDT HAPTOGLOBIN Routine 12/13/2012 10:42 PM EDT XR ABDOMEN ACUTE SERIES W PA CHEST STAT 12/13/2012 10:20 PM EDT URINALYSIS WITH REFLEX CULTURE Routine 12/13/2012 10:08 PM EDT REQUEST FOR 2ND READ CT ABDOMEN AND PELVIS Routine 12/13/2012 10:06 PM EDT DIFFERENTIAL, MANUAL Routine 12/13/2012 10:00 PM EDT APTT Routine 12/13/2012 10:00 PM EDT THROMBIN TIME Routine 12/13/2012 10:00 PM EDT PROTHROMBIN TIME Routine 12/13/2012 10:0 0 PM EDT FIBRINOGEN Routine 12/13/2012 10:00 PM EDT CBC (WITH DIFF) Routine 12/13/2012 10:00 PM EDT PHOSPHORUS Routine 12/13/2012 10:00 PM EDT MAGNESIUM Routine 12/13/2012 10:00 PM EDT LACTATE DEHYDROGENASE Routine 12/13/2012 10:00 PM EDT HEPATIC FUNCTION PANEL Routine 3 10:00 PM EDT BASIC METABOLIC PANEL (NON-FASTING) Routine 12/13/2012 10:00 PM EDT documented in this encounter Results * SCAN DOC: LAB (01/29/2013 11:49 AM EDT) Narrative 01/29/2013 11:49 AM EDT Procedure Note Provider, Scanning - 01/29/2013 11:49 AM EDT Scanning Provider MEDIA MGR SCAN EXT O RDR/RSLT * SCAN DOC: SOFTBALL PLAYER (12/28/2012 9:39 AM EDT) Anatomical Region Laterality Modality Other Narrative 12/28/2012 9:40 AM EDT Procedure Note Provider, Scanning - 12/28/2012 9:39 AM EDT Scanning Provider MEDIA MGR SCAN EXT O RDR/RSLT * SCAN DOC: LAB (12/28/2012 9:38 AM EDT) Narrative 12/28/2012 9:38 AM EDT Procedure Note Provider, Scanning - 12/28/2012 9:38 AM EDT Scanning Provider MEDIA MGR SCAN EXT O RDR/RSLT * Vancomycin, trough (12/27/2012 2:30 PM EDT) Vanc Trough 22.5 mg/L BAR NOE Comment: Therapeutic range for complicated infections such as bacteremia, endocarditis, osteomyelitis, meningitis, and hospital-acquired pneumonia caused by S. aureus: 15-20 mg/L Therapeutic range for other indications: 10-15 mg/L Toxic: >25mg/L Reference: Vancomycin Therapeutic Monitoring: Review and Recommendations from the ASHP, IDSA and SIDP Task Force. ??Am J Health-Syst Pharm. 2009; 66:82-98 Blood specimen (specimen) 12/27/2012 2:30 PM EDT 12/27/2012 2:39 PM EDT Narrative Resulting Agency Comment Spec In Lab Haris Jarvis MD CHEMISTRY ORDERABLES [facility] * Place PICC Line: Contact Vascular Access Page [phone] (12/27/2012 12:12 PM EDT) Narrative Edvin Brian RN - 12/27/2012 12:12 PM EDT Edvin Brian RN ? 12/27/2012 12:12 PM PICC/Midline Insertion Procedure Note Indications: Access and Medication Administration This insertion was not to replace a malfunctioning catheter. This insertion was not due to a suspected line-associated infection. Location of Procedure: X-Ray Room 11 Risks and Benefits: The risks and benefits of this procedure were reviewed and informed consent was obtained obtained. Time Out: Prior to the start of the procedure, the patient's identity, intended procedure, site/side, correct patient positioning and presence of the site keanu was confirmed as applicable. The medical history and chart were reviewed to rule out potential contraindications to the planned procedure. Hand Hygiene: The magazine keeper did perform hand hygiene prior to line insertion. Catheter type: PICC Lot number: [id number] Procedure Technique: Skin was prepped with chlorhexidine. Skin preparation agent was completely dry at the time of first skin puncture. The following barrier precaution methods were used:large sterile drape, maske/eye shield, large sterile gown, sterile gloves and cap. 3 ml of 1% Lidocaine was used for skin wheal. Ultrasound was used for guidance. ??Radiographic contrast agent was not injected for vein identification. Procedure Details: Order received for catheter placement. A 5 Fr. single lumen Bard Power catheter was placed into the left basilic vein over a 0.018 inch guidewire using modified seldinger technique and fluoroscopy. Arm circumference was 29 cm at 2 cm above the insertion site. Final catheter length (with trimming): 38 cm Internal: 38 cm External: 0 cm Tip in SVC per GIBBONS. The line was not placed over a guidewire. Post Procedure: Diagnosis: COLITIS ?? Blood return noted on aspiration of line after placement confirmed. 5 mls of normal saline infused free flowing to gravity via PICC after insertion. Sterile dressing applied: Tegaderm and Biopatch. Findings: The patient did tolerate the procedure well. No Complications. EDVIN BRIAN RN 12/27/2012 Procedure Note Edvin Brian RN - 12/27/2012 11:42 AM EDT PICC/Midline Insertion Procedure Note Indications: Access and Medication Administration This insertion was not to replace a malfunctioning catheter. This insertion was not due to a suspected line-associated infection. Location of Procedure: X-Ray Room 11 Risks and Benefits: The risks and benefits of this procedure were reviewed and informedconsent was obtained obtained. Time Out: Prior to the start of the procedure, the patient's identity, intendedprocedure, site/side, correct patient positioning and presence of the sitemark was confirmed as applicable. The medical history and chart werereviewed to rule out potential contraindications to the planned procedure. Hand Hygiene: The magazine keeper did perform hand hygiene prior to line insertion. Catheter type: PICC Lot number: [id number] Procedure Technique: Skin was prepped with chlorhexidine. Skin preparation agent was completely dry at the time of first skinpuncture. The following barrier precaution methods were used:large sterile drape,maske/eye shield, large sterile gown, sterile gloves and cap. 3 ml of 1% Lidocaine was used for skin wheal. Ultrasound was used forguidance. Radiographic contrast agent was not injected for veinidentification. Procedure Details: Order received for catheter placement. A 5 Fr. single lumen Bard Powercatheter was placed into the left basilic vein over a 0.018 inch guidewireusing modified seldinger technique and fluoroscopy. Arm circumference was29 cm at 2 cm above the insertion site. Final catheter length (with trimming): 38 cm Internal: 38 cm External: 0 cm Tip in SVC per GIBBONS. The line was not placed over a guidewire. Post Procedure: Diagnosis: COLITIS Blood return noted on aspiration of line afterplacement confirmed. 5 mls of normal saline infused free flowing togravity via PICC after insertion. Sterile dressing applied: Tegaderm andBiopatch. Findings: The patient did tolerate the procedure well. No Complications. EDVIN BRIAN RN 12/27/2012 Haris Jarvis MD PROCEDURE/MINOR SURG ICAL ORDERABLES * (ABNORMAL) Differential, Automated (12/27/2012 3:57 AM EDT) Neutrophils % 68.8 34.0 - 71.0 % CERNER MILLENNIUM Neutr Abs (ANC) 5.61 1.50 - 6.30 x10(3)/mc L CERNER MILLENNIUM Lymphocytes % 16.8(L) 19.0 - 53.0 % CERNER MILLENNIUM Lymphocytes Abs 1.4 1.0 - 3.6 x10(3)/mc L CERNER MILLENNIUM Monocytes % 10.0 4.0 - 13.0 % CERNER MILLENNIUM Monocyte Abs 0.8 0.2 - 1.0 x10(3)/mc L CERNER MILLENNIUM Eosinophils % 4.0 0.0 - 7.0 % CERNER MILLENNIUM Eosinophils Abs 0.3 0.0 - 0.5 x10(3)/mc L CERNER MILLENNIUM Basophils % 0.2 0.0 - 2.0 % CERNER MILLENNIUM Basophils [...] Abs 0.02 0.00 - 0.05 x10(3)/mc L [facility] Blood specimen (specimen) 12/27/2012 3:57 AM EDT 12/27/2012 4:03 AM EDT Luis E Trotter MD HEMATOLOGY ORDERABLE S Performing Organization Address [facility] Co de Phone Number [facility] * Prothrombin Time (12/27/2012 3:57 AM EDT) PT 14.0 12.0 - 15.0 sec [facility] MILLENNIUM Comment: [facility] Transfusion Committee Guidelines: INR less than 2.0, PTT less than OR equal to 43.5 seconds, or Fibrinogen greater than or equal to 100 mg/dl indicate adequate procoagulant activity for hemostasis in patients without underlying bleeding disorders. INR 1.0 0.9 - 1.1 [facility] Blood specimen (specimen) 12/27/2012 3:57 AM EDT 12/27/2012 4:03 AM EDT Narrative Resulting Agency Comment Spec In Lab Haris Jarvis MD HEMATOLOGY ORDERABLE S Performing Organization Address [facility] Phone Number [facility] * Phosphorus (12/27/2012 3:57 AM EDT) Phosphorus 4.4 2.5 - 4.5 mg/dL [facility] Blood specimen (specimen) 12/27/2012 3:57 AM EDT 12/27/2012 4:03 AM EDT Narrative Resulting Agency Comment Spec In Lab Fabi Bliss MD CHEMISTRY ORDERA BLES Performing Organization Address [facility] Phone Number [facility] * Magnesium (12/27/2012 3:57 AM EDT) Magnesium 0.81 0.69 - 1.07 mmol/L [facility] Blood specimen (specimen) 12/27/2012 3:57 AM EDT 12/27/2012 4:03 AM EDT Narrative Resulting Agency Comment Spec In Lab Fabi Bliss MD CHEMISTRY ORDERA BLES Performing Organization Address [facility] Co de Phone Number CERNER MILLENNIUM * (ABNORMAL) Lactate Dehydrogenase (12/27/2012 3:57 AM EDT) LDH 257(H) 110 - 220 unit/L CERNER MILLENNIUM Blood specimen (specimen) 12/27/2012 3:57 AM EDT 12/27/2012 4:03 AM EDT Narrative Resulting Agency Comment Spec In Lab Fabi Bliss MD CHEMISTRY ORDERA BLES Performing Organization Address [facility] de Phone Number CERNER MILLENNIUM * (ABNORMAL) Basic Metabolic Panel (non-fasting) (12/27/2012 3:57 AM EDT) Glucose Lvl 108 60 - 199 mg/dL [facility]ERN[facility] MILLENNIUM Comment:Diabetes: >=200 mg/d L plus symptoms BUN 10 8 - 18 mg/dL CERN[facility] MILLENNIUM Creatinine 2.10(H) 0.70 - 1.20 mg/dL CERN[facility] MILLENNIUM Comment: Please note that the pediatric reference intervals supplied above were not validated at [facility] Results from pediatric patients should be interpreted in conjunction to the patient's age, height and muscle mass. Sodium 138 135 - 145 mmol/L CERNER MILLENNIUM Potassium 3.5 3.5 - 5.0 mmol/L CERNER MILLENNIUM Comment: Please note: ??Patients with WBC >100,000 may have falsely elevated Potassium levels. ??For accurate Potassium quantification in these patients send serum separator tube (gold top) for subsequent determinations. ??Contact the Clinical Chemistry Laboratory if there are any questions. Chloride 104 98 - 107 mmol/L CERNER MILLENNIUM CO2 23 22 - 31 mmol/L CERNER MILLENNIUM Anion Gap 11 5 - 15 mmol/L CERNER MILLENNIUM Calcium 8.3(L) 8.5 - 10.5 mg/dL CERNER MILLENNIUM Estimated [...] internet browser. http://www.nkdep.nih.gov/lab-evaluation.shtml http://www.kidney.org/professionals/ Blood specimen (specimen) 12/27/2012 3:57 AM EDT 12/27/2012 4:03 AM EDT Narrative Resulting Agency Comment Spec In Lab Luis E Trotter MD CHEMISTRY ORDERABLES [facility] MILLENNIUM * (ABNORMAL) CBC (with Diff) (12/27/2012 3:57 AM EDT) WBC 8.2 4.0 - 10.0 x10(3)/mcL CERNER MILLENNIUM RBC 3.02(L) 3.93 - 5.22 x10(6)/mcL CERN[facility] MILLENNIUM Hemoglobin 9.0(L) 11.2 - 15.7 gm/dL CERNER MILLENNIUM Hematocrit 27.0(L) 34.0 - 45.0 % CERNER MILLENNIUM MCV 89.4 79.0 - 94.0 fL CERNER MILLENNIUM MCH 29.8 26.6 - 32.2 pg CERNER MILLENNIUM MCHC 33.3 32.0 - 36.5 gm/dL CERNER MILLENNIUM Platelets 317 145 - 370 x10(3)/mcL CERNER MILLENNIUM RDWSD 48.5(H) 35.0 - 46.0 fL CERNER MILLENNIUM RDWCV 15.1(H) 10.9 - 14.4 % CERNER MILLENNIUM MPV 10.5 9.0 - 12.0 fL CERN[facility] MILLENNIUM Blood specimen (specimen) 12/27/2012 3:57 AM EDT 12/27/2012 4:03 AM EDT Narrative Resulting Agency Comment Spec In Lab Luis E Trotter MD HEMATOLOGY ORDERABLE S Performing Organization Address City/[facility]/ZIP Co de Phone Number [facility] * (ABNORMAL) APTT (12/26/2012 10:31 AM EDT) PTT 36(H) 25 - 35 sec [facility] Comment: Recommended therapeutic PTT range for full dose unfractionated heparin is 80-114 seconds. Blood specimen (specimen) 12/26/2012 10:31 AM EDT 12/26/2012 10:37 AM EDT Narrative Resulting Agency Comment Spec In Lab Haris Jarvis MD HEMATOLOGY ORDERABLE S Performing Organization Address [facility] Co de Phone Number [facility] * Antibody screen (12/26/2012 10:31 AM EDT) Ab Screen Interp Negative [facility] Expires at [id number] on: [id number] [facility] Blood specimen (specimen) 12/26/2012 10:31 AM EDT 12/26/2012 10:43 AM EDT Narrative Resulting Agency Comment Spec In Lab Ankit Ohara MD BLOOD BANK LAB ORDER VIKAS Performing Organization Address [facility] de Phone Number [facility] * ABO/Rh Typing (12/26/2012 10:31 AM EDT) ABORH Type AB Pos [facility] Blood specimen (specimen) 12/26/2012 10:31 AM EDT 12/26/2012 10:43 AM EDT Narrative Resulting Agency Comment Spec In Lab Ankit Ohara MD BLOOD BANK LAB ORDER VIKAS Performing Organization Address [facility] Co de Phone Number [facility] * Free Thyroxine Index (12/26/2012 3:42 AM EDT) FTI 6.8 4.5 - 9.5 mcg/dL [facility] Comment: Females: 5. 5-10.5 mcg/dL Blood specimen (specimen) 12/26/2012 3:42 AM EDT 12/26/2012 3:47 AM EDT Narrative Resulting Agency Comment Spec In Lab Luis E Trotter MD CHEMISTRY ORDERABLES Performing Organization Address [facility] Co de Phone Number [facility] * T3 (12/26/2012 3:42 AM EDT) T3, Total 77 75 - 170 ng/dL [facility] Blood specimen (specimen) 12/26/2012 3:42 AM EDT 12/26/2012 3:47 AM EDT Narrative Resulting Agency Comment Spec In Lab Luis E Trotter MD CHEMISTRY ORDERABLES Performing Organization Address [facility] Co de Phone Number [facility] * T Uptake (12/26/2012 3:42 AM EDT) T Uptake 0.99 0.80 - 1.30 ratio [facility] Comment: Tup assay is directly proportional to Thyroid binding protein concentration, thus FT4 Index = TT4/Tup. Wing Cord Blood Reference Range: ??0.74-1.28. Blood specimen (specimen) 12/26/2012 3:42 AM EDT 12/26/2012 3:47 AM EDT Narrative Resulting Agency Comment Spec In Lab Luis E Trotter MD CHEMISTRY ORDERABLES Performing Organization Address [facility] Co de Phone Number [facility] * T4 (12/26/2012 3:42 AM EDT) T4, total 6.7 5.1 - 10.8 mcg/dL [facility] Comment: Reference Range: Wing Cord Blood: ??6.9-14.4 mcg/dL Females: ??7.2-14.2 mcg/dL Pediatric ranges: ??Interpret with caution-ranges have not been verified Blood specimen (specimen) 12/26/2012 3:42 AM EDT 12/26/2012 3:47 AM EDT Narrative Resulting Agency Comment Spec In Lab Luis E Trotter MD CHEMISTRY ORDERABLES Performing Organization Address City/[facility]/ZIP Co de Phone Number CERNER ISRRAELENNIUM * TSH (12/26/2012 3:42 AM EDT) TSH 1.97 0.27 - 4.20 mcIU/mL CERNER MILLENNIUM Blood specimen (specimen) 12/26/2012 3:42 AM EDT 12/26/2012 3:47 AM EDT Narrative Resulting Agency Comment Spec In Lab Luis E Trotter MD CHEMISTRY ORDERABLES Performing Organization Address [facility] de Phone Number CERNER MILLENNIUM * Differential, Automated (12/26/2012 3:42 AM EDT) Neutrophils % 65.8 34.0 - 71.0 % CERNER MILLENNIUM Neutr Abs (ANC) 3.99 1.50 - 6.30 x10(3)/mcL CERNER MILLENNIUM Lymphocytes % 19.1 19.0 - 53.0 % CERNER MILLENNIUM Lymphocytes Abs 1.2 1.0 - 3.6 x10(3)/mcL CERNER MILLENNIUM Monocytes % 10.0 4.0 - 13.0 % CERNER MILLENNIUM Monocyte Abs 0.6 0.2 - 1.0 x10(3)/mcL CERNER MILLENNIUM Eosinophils % 4.3 0.0 - 7.0 % CERNER MILLENNIUM Eosinophils Abs 0.3 0.0 - 0.5 x10(3)/mcL CERNER MILLENNIUM Basophils % 0.5 0.0 - 2.0 % CERNER MILLENNIUM Basophils [...] Petty Gran Abs 0.02 0.00 - 0.05 x10(3)/mcL [facility] Blood specimen (specimen) 12/26/2012 3:42 AM EDT 12/26/2012 3:46 AM EDT Luis E Trotter MD HEMATOLOGY ORDERABLE S Performing Organization Address [facility] Co de Phone Number [facility] * Phosphorus (12/26/2012 3:42 AM EDT) Phosphorus 4.1 2.5 - 4.5 mg/dL [facility] Blood specimen (specimen) 12/26/2012 3:42 AM EDT 12/26/2012 3:46 AM EDT Narrative Resulting Agency Comment Spec In Lab Fabi Bliss MD CHEMISTRY MARYANN SUAREZ Performing Organization Address [facility] de Phone Number [facility] * Magnesium (12/26/2012 3:42 AM EDT) Magnesium 0.80 0.69 - 1.07 mmol/L [facility] Blood specimen (specimen) 12/26/2012 3:42 AM EDT 12/26/2012 3:46 AM EDT Narrative Resulting Agency Comment Spec In Lab Fabi Bliss MD CHEMISTRY ORDERA BLERenuka Performing Organization Address [facility] de Phone Number [facility] * (ABNORMAL) Lactate Dehydrogenase (12/26/2012 3:42 AM EDT) LDH 255(H) 110 - 220 unit/L [facility] Blood specimen (specimen) 12/26/2012 3:42 AM EDT 12/26/2012 3:46 AM EDT Narrative Resulting Agency Comment Spec In Lab Fabi Bliss MD CHEMISTRY MARYANN SUAREZ CERNER ISRRAELENNIUM * (ABNORMAL) Basic Metabolic Panel (non-fasting) (12/26/2012 3:42 AM EDT) Glucose Lvl 99 60 - 199 mg/dL CERNER MILLENNIUM Comment:Diabetes: >=200 mg/d L plus symptoms BUN 11 8 - 18 mg/dL CERNER MILLENNIUM Creatinine 2.05(H) 0.70 - 1.20 mg/dL CERNER MILLENNIUM Comment: Please note that the pediatric reference intervals supplied above were not validated [place] [facility] Results from pediatric patients should be interpreted in conjunction to the patient's age, height and muscle mass. Sodium 141 135 - 145 mmol/L CERNER MILLENNIUM Potassium 3.5 3.5 - 5.0 mmol/L CERNER MILLENNIUM Comment: Please note: ??Patients with WBC >100,000 may have falsely elevated Potassium levels. ??For accurate Potassium quantification in these patients send serum separator tube (gold top) for subsequent determinations. ??Contact the Clinical Chemistry Laboratory if there are any questions. Chloride 106 98 - 107 mmol/L CERNER MILLENNIUM CO2 24 22 - 31 mmol/L CERNER MILLENNIUM Anion Gap 11 5 - 15 mmol/L CERNER MILLENNIUM Calcium 8.5 8.5 - 10.5 mg/dL CERNER MILLENNIUM Estimated [...] internet browser. http://www.nkdep.nih.gov/lab-evaluation.shtml http://www.kidney.org/professionals/ Blood specimen (specimen) 12/26/2012 3:42 AM EDT 12/26/2012 3:46 AM EDT Narrative Resulting Agency Comment Spec In Lab Luis E Trotter MD CHEMISTRY ORDERABLES Performing Organization Address [facility]/ZIP Co de Phone Number CERELIO MILLENNIUM * (ABNORMAL) CBC (with Diff) (12/26/2012 3:42 AM EDT) WBC 6.1 4.0 - 10.0 x10(3)/mcL CERNER MILLENNIUM RBC 2.81(L) 3.93 - 5.22 x10(6)/mcL CERNER MILLENNIUM Hemoglobin 8.3(L) 11.2 - 15.7 gm/dL CERNER MILLENNIUM Hematocrit 25.3(L) 34.0 - 45.0 % CERNER MILLENNIUM MCV 90.0 79.0 - 94.0 fL CERNER MILLENNIUM MCH 29.5 26.6 - 32.2 pg CERNER MILLENNIUM MCHC 32.8 32.0 - 36.5 gm/dL CERNER MILLENNIUM Platelets 231 145 - 370 x10(3)/mcL CERNER MILLENNIUM RDWSD 49.2(H) 35.0 - 46.0 fL CERNER MILLENNIUM RDWCV 15.2(H) 10.9 - 14.4 % CERNER MILLENNIUM MPV 10.4 9.0 - 12.0 fL CERNER MILLENNIUM Blood specimen (specimen) 12/26/2012 3:42 AM EDT 12/26/2012 3:46 AM EDT Narrative Resulting Agency Comment Spec In Lab Luis E Trotter MD HEMATOLOGY ORDERABLE S Performing Organization Address [facility] Co de Phone Number CERELIO PINEDAIUM * Vancomycin, trough (12/25/2012 6:29 PM EDT) Vanc Trough 19.0 mg/L CERNER MILLENNIUM Comment: Therapeutic range for complicated infections such as bacteremia, endocarditis, osteomyelitis, meningitis, and hospital-acquired pneumonia caused by S. aureus: 15-20 mg/L Therapeutic range for other indications: 10-15 mg/L Toxic: >25mg/L Reference: Vancomycin Therapeutic Monitoring: Review and Recommendations from the ASHP, IDSA and SIDP Task Force. ??Am J Health-Syst Pharm. 2009; 66:82-98 Blood specimen (specimen) 12/25/2012 6:29 PM EDT 12/25/2012 6:31 PM EDT Narrative Resulting Agency Comment Spec In Lab Haris Jarvis MD CHEMISTRY ORDERABLES Performing Organization Address [facility] Co de Phone Number BAR NOE * APTT (12/25/2012 3:26 PM EDT) PTT 31 25 - 35 sec CERELIO ARCOSENNIUM Comment: Recommended therapeutic PTT range for full dose unfractionated heparin is 80-114 seconds. Blood specimen (specimen) 12/25/2012 3:26 PM EDT 12/25/2012 3:39 PM EDT Narrative Resulting Agency Comment Spec In Lab Haris Jarvis MD HEMATOLOGY ORDERABLE S Performing Organization Address [facility] Co de Phone Number BAR NOE * Prothrombin Time (12/25/2012 3:26 PM EDT) PT 14.5 12.0 - 15.0 sec [facility] Comment: [facility] Transfusion Committee Guidelines: INR less than 2.0, PTT less than OR equal to 43.5 seconds, or Fibrinogen greater than or equal to 100 mg/dl indicate adequate procoagulant activity for hemostasis in patients without underlying bleeding disorders. INR 1.1 0.9 - 1.1 [facility] ISRRAELENNIUM Blood specimen (specimen) 12/25/2012 3:26 PM EDT 12/25/2012 3:39 PM EDT Narrative Resulting Agency Comment Spec In Lab Haris Jarvis MD HEMATOLOGY ORDERABLE S Performing Organization Address City/[facility] Co de Phone Number BAR NEO * Duplex for DVT, arm, bilat (12/25/2012 3:18 PM EDT) VB Text Report Department: Vascular Surgery Lab Patient: [id number] (ANUM HENRIQUEZ) CPT Code: 75413 ICD-9: 451.84 Referring Physician: HARIS JARVIS Indication: ?? unable to visualize the IJV during upper extremity venous exam on 12/24/12; please evaluate for thrombus ICD9 Diagnosis Code: 451.84 Widely patent internal jugular veins and innominate veins bilaterally with normal Doppler waveforms and no evidence of thrombus. Interpretation: No evidence of neck DVT bilaterally. Electronically Signed by: SHIREEN SANTOS on 2012-12-26 03:39:03 PM VASCUBASE VB Text Report End of Report VASCUBASE 12/25/2012 3:18 PM EDT Haris Jarvis MD VASCULAR ORDERABLES VASCUBASE * Smear Review Report (12/25/2012 12:04 PM EDT) Smear Review Report ? [facility] ? Provider: ?? HARIS JARVIS ? Pt. Name: ?? ANUM HENRIQUEZ N ? Acc #: ?[id number] ? Pt. ? Col Date: ?? 12/25/2012 ? /Sex: ?1960,(52 years),Female ? Rec Date: ?? 12/25/2012 ? LOC: ?1WST ? MORPHOLOGIC HEMATOLOGY: SMEAR REVIEW ? ---Clinical Information--- ? 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 Hematopathologist review of CBC and peripheral blood ? smear requested to evaluate for hemolysis. ? ---Results--- ? The white blood cell count is 6.7 K/uL. ??The predominating cells are mature ? neutrophils with normal morphology. ??Normocytic anemia is evident (Hgb 8.8 ? g/dL; MCV 90 fL), and there is mild anisopoikilocytosis with occasional ? schistocytes noted (not more than 1-3 per hpf). Rare spherocytes are ? present. ??Platelets are normal in number (264 K/uL) and exhibit normal ? morphologic features. No blasts or abnormal circulating cell populations ? are appreciated. ? Neutrophils/bands 73%, Lymphocytes 15%, Monocytes 8%, Eosinophils 3%, ? Basophils 0%, Erythroid precursors 0%. ? ---Interpretation--- ? Persistent anemia with schistocytes present in decreased quantity from ? previous, consistent with slowing of microangiopathic ? hemolytic process (see comment) ? 12/25/12 ? DLO ? 12/25/12 Verified by: ? Lizzeth PANTOJA, Gladys Fierro ? Hematopathologist ? (Electronic Signature) ? The attending pathologist whose signature appears on this report has ? reviewed all diagnostic slides and has edited the gross and/or ? microscopic portion of the report in rendering the final pathologic ? diagnosis. ? ---Comment--- ? The current peripheral smear was reviewed alongside the most recent ? previous smear (see [id number]). Compared to the previous, the current ? material shows fewer schistocytes. Note is further made of the declining ? LDH and increasing haptoglobin and platelet count over time, both of which ? 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 BAR NOE 12/25/2012 12:0 4 PM EDT Haris Jarvis MD PATHOLOGY/CYTOLOGY O RDERABLES BAR NOE * (ABNORMAL) Differential, Automated (12/25/2012 12:04 PM EDT) Neutrophils % 72.8(H) 34.0 - 71.0 % CERNER MILLENNIUM Neutr Abs (ANC) 4.85 1.50 - 6.30 x10(3)/mc L CERNER MILLENNIUM Lymphocytes % 15.0(L) 19.0 - 53.0 % CERNER MILLENNIUM Lymphocytes Abs 1.0 1.0 - 3.6 x10(3)/mc L CERNER MILLENNIUM Monocytes % 8.1 4.0 - 13.0 % CERNER MILLENNIUM Monocyte Abs 0.5 0.2 - 1.0 x10(3)/mc L CERNER MILLENNIUM Eosinophils % 3.4 0.0 - 7.0 % CERNER MILLENNIUM Eosinophils [...] x10(3)/mc L CERNER MILLENNIUM Blood specimen (specimen) 12/25/2012 12:04 PM EDT 12/25/2012 12:08 PM EDT Haris Jarvis MD HEMATOLOGY ORDERABLE S BAR PINEDAIUM * (ABNORMAL) CBC (with Diff) (12/25/2012 12:04 PM EDT) WBC 6.7 4.0 - 10.0 x10(3)/mcL CERNER MILLENNIUM RBC 3.00(L) 3.93 - 5.22 x10(6)/mcL CERNER MILLENNIUM Hemoglobin 8.8(L) 11.2 - 15.7 gm/dL CERNER MILLENNIUM Hematocrit 26.9(L) 34.0 - 45.0 % CERNER MILLENNIUM MCV 89.7 79.0 - 94.0 fL CERNER MILLENNIUM MCH 29.3 26.6 - 32.2 pg CERNER MILLENNIUM MCHC 32.7 32.0 - 36.5 gm/dL CERNER MILLENNIUM Platelets 264 145 - 370 x10(3)/mcL CERNER MILLENNIUM RDWSD 49.5(H) 35.0 - 46.0 fL CERNER MILLENNIUM RDWCV 15.4(H) 10.9 - 14.4 % CERNER MILLENNIUM MPV 10.6 9.0 - 12.0 fL [facility] Blood specimen (specimen) 12/25/2012 12:04 PM EDT 12/25/2012 12:08 PM EDT Narrative Resulting Agency Comment Spec In Lab Haris Jarvis MD HEMATOLOGY ORDERABLE S Performing Organization Address City/[facility] Co de Phone Number BAR NOE * Haptoglobin (12/25/2012 12:04 PM EDT) Haptoglobin 70 30 - 200 mg/dL [facility] MIRIAMIUM Comment: Haptoglobin concentrations in newborns is low to undetectable; however, adult concentrations are usually attained by 4 months of age. ??No sex-related differences for haptoglobin have been detected. Blood specimen (specimen) 12/25/2012 12:04 PM EDT 12/25/2012 12:08 PM EDT Narrative Resulting Agency Comment Spec In Lab Haris Jarvis MD CHEMISTRY ORDERABLES Performing Organization Address [facility] Co de Phone Number [facility] * (ABNORMAL) Lactate Dehydrogenase (12/25/2012 12:04 PM EDT) LDH 288(H) 110 - 220 unit/L [facility] Blood specimen (specimen) 12/25/2012 12:04 PM EDT 12/25/2012 12:08 PM EDT Narrative Resulting Agency Comment Spec In Lab Haris Jarvis MD CHEMISTRY ORDERABLES Performing Organization Address [facility] Co de Phone Number [facility] * Peripheral Smear Review (12/25/2012 12:04 PM EDT) Periph Smear Rev See Comment [facility] Comment: When completed by the Pathologist, report [id number] will display under Hematopathology Reports. Blood specimen (specimen) 12/25/2012 12:04 PM EDT 12/25/2012 12:08 PM EDT Narrative Resulting Agency Comment Spec In Lab Haris Jarvis MD HEMATOLOGY ORDERABLE S Performing Organization Address [facility] Phone Number [facility] * C4 Complement (12/25/2012 12:04 PM EDT) C4 Complement 17 10 - 40 mg/dL [facility] Blood specimen (specimen) 12/25/2012 12:04 PM EDT 12/25/2012 12:08 PM EDT Narrative Resulting Agency Comment Spec In Lab Haris Jarvis MD CHEMISTRY ORDERABLES Performing Organization Address [facility] de Phone Number [facility] * (ABNORMAL) C3 Complement (12/25/2012 12:04 PM EDT) C3 Complement 86(L) 90 - 180 mg/dL [facility] Blood specimen (specimen) 12/25/2012 12:04 PM EDT 12/25/2012 12:08 PM EDT Narrative Resulting Agency Comment Spec In Lab Haris Jarvis MD CHEMISTRY ORDERABLES Performing Organization Address [facility] Co de Phone Number [facility] * Erythropoietin Level (12/25/2012 12:04 PM EDT) Erythropoietin 17 4 - 24 mIU/mL [facility] Blood specimen (specimen) 12/25/2012 12:04 PM EDT 12/25/2012 2:17 PM EDT Narrative Resulting Agency Comment Spec In Lab Haris Jarvis MD CHEMISTRY ORDERABLES BAR NOE * Duplex Study for DVT, Bilat legs (12/25/2012 11:06 AM EDT) VB Text Report Department: Vascular Surgery Lab Patient: [id number] (ANUM HENRIQUEZ) CPT Code: 54815 ICD-9: 451.19 Referring Physician: HARIS JARVIS Indication: ?F/U bilateral DVT in the calf ICD9 Diagnosis Code: 451.19 RIGHT: One peroneal vein is mostly thrombosed from the mid to the upper calf while the other peroneal vein has non-occlusive thrombus in the upper calf. Progression from previous exam. Otherwise, patent common femoral vein and popliteal vein with spontaneous, respirophasic Doppler waveforms that respond normally to augmentation maneuvers. The common femoral vein, saphenofemoral junction, femoral vein through the thigh and popliteal vein are fully compressible. Patent posterior tibial veins with no evidence of thrombus. LEFT: Non-occlusive thrombus identified in one posterior tibial vein mid calf (unchanged from previous exam) and one peroneal vein is mostly thrombosed from mid to proximal calf (new finding from previous exam). Otherwise, patent common femoral vein and popliteal vein with spontaneous, respirophasic Doppler waveforms that respond normally to augmentation maneuvers. The common femoral vein, saphenofemoral junction, femoral vein through the thigh and popliteal vein are fully compressible. Interpretation: RIGHT: DVT in the calf (peroneal veins). Progression from previous exam 12/19/12. No evidence of femoral-popliteal deep venous thrombosis. LEFT: DVT in the calf (one peroneal and one posterior tibial vein). Progression from previous exam 12/19/12. No evidence of femoral-popliteal deep venous thrombosis. Comments: ? If this patient is not anti-coagulated we recommend a repeat study in 2- 4 days to assess for propagation. ? Dr. Kimball ??was notified of the preliminary findings. Electronically Signed by: SHIREEN SANTOS on 2012-12-25 03:42:30 PM VASCUBASE VB Text Report End of Report VASCUBASE 12/25/2012 11:0 6 AM EDT Haris Jarvis MD VASCULAR ORDERABLES VASCUBASE * (ABNORMAL) Differential, Automated (12/25/2012 4:14 AM EDT) Neutrophils % 66.0 34.0 - 71.0 % CERNER MILLENNIUM Neutr Abs (ANC) 3.63 1.50 - 6.30 x10(3)/mc L CERNER MILLENNIUM Lymphocytes % 18.9(L) 19.0 - 53.0 % CERNER MILLENNIUM Lymphocytes Abs 1.0 1.0 - 3.6 x10(3)/mc L CERNER MILLENNIUM Monocytes % 9.8 4.0 - 13.0 % CERNER MILLENNIUM Monocyte Abs 0.5 0.2 - 1.0 x10(3)/mc L CERNER MILLENNIUM Eosinophils % 4.7 0.0 - 7.0 % CERNER MILLENNIUM Eosinophils Abs 0.3 0.0 - 0.5 x10(3)/mc L CERNER MILLENNIUM [...] Abs 0.01 0.00 - 0.05 x10(3)/mc L CERNER MILLENNIUM Blood specimen (specimen) 12/25/2012 4:14 AM EDT 12/25/2012 4:22 AM EDT Luis E Trotter MD HEMATOLOGY ORDERABLE S Performing Organization Address [facility] Co de Phone Number [facility] * Phosphorus (12/25/2012 4:14 AM EDT) Pathologist [facility] Phosphorus 3.4 2.5 - 4.5 mg/dL [facility] MILLENNIUM Blood specimen (specimen) 12/25/2012 4:14 AM EDT 12/25/2012 4:22 AM EDT Narrative Resulting Agency Comment Spec In Lab aFbi Bliss MD CHEMISTRY ORDERA BLES Performing Organization Address [facility] Co de Phone Number [facility] * Magnesium (12/25/2012 4:14 AM EDT) [facility] Magnesium 0.80 0.69 - 1.07 mmol/L [facility] Blood specimen (specimen) 12/25/2012 4:14 AM EDT 12/25/2012 4:22 AM EDT Narrative Resulting Agency Comment Spec In Lab Fabi Bliss MD CHEMISTRY ORDERA BLES Performing Organization Address [facility] de Phone Number [facility] * (ABNORMAL) Lactate Dehydrogenase (12/25/2012 4:14 AM EDT) Pathologist [facility] LDH 249(H) 110 - 220 unit/L [facility] Blood specimen (specimen) 12/25/2012 4:14 AM EDT 12/25/2012 4:22 AM EDT Narrative Resulting Agency Comment Spec In Lab Fabi Bliss MD CHEMISTRY ORDERA BLES Performing Organization Address [facility] Co de Phone Number [facility] * (ABNORMAL) Basic Metabolic Panel (non-fasting) (12/25/2012 4:14 AM EDT) Pathologist [facility] Glucose Lvl 99 60 - 199 mg/dL [facility] Comment:Diabetes: >=200 mg/d L plus symptoms BUN 10 8 - 18 mg/dL CERNER MILLENNIUM Creatinine 2.01(H) 0.70 - 1.20 mg/dL CERNER MILLENNIUM Comment: Please note that the pediatric reference intervals supplied above were not validated [place] [facility] Results from pediatric patients should be interpreted in conjunction to the patient's age, height and muscle mass. Sodium 140 135 - 145 mmol/L CERNER MILLENNIUM Potassium 3.6 3.5 - 5.0 mmol/L CERNER MILLENNIUM Comment: Please note: ??Patients with WBC >100,000 may have falsely elevated Potassium levels. ??For accurate Potassium quantification in these patients send serum separator tube (gold top) for subsequent determinations. ??Contact the Clinical Chemistry Laboratory if there are any questions. Chloride 106 98 - 107 mmol/L CERNER MILLENNIUM CO2 27 22 - 31 mmol/L CERNER MILLENNIUM Anion Gap 7 5 - 15 mmol/L CERNER MILLENNIUM Calcium 8.3(L) 8.5 - 10.5 mg/dL CERNER MILLENNIUM Estimated [...] internet browser. http://www.nkdep.nih.gov/lab-evaluation.shtml http://www.kidney.org/professionals/ Blood specimen (specimen) 12/25/2012 4:14 AM EDT 12/25/2012 4:22 AM EDT Narrative Resulting Agency Comment Spec In Lab Luis E Trotter MD CHEMISTRY ORDERABLES BAR NOE * (ABNORMAL) CBC (with Diff) (12/25/2012 4:14 AM EDT) WBC 5.5 4.0 - 10.0 x10(3)/mcL CERNER MILLENNIUM RBC 2.77(L) 3.93 - 5.22 x10(6)/mcL CERNER MILLENNIUM Hemoglobin 8.3(L) 11.2 - 15.7 gm/dL CERNER MILLENNIUM Hematocrit 24.9(L) 34.0 - 45.0 % CERNER MILLENNIUM MCV 89.9 79.0 - 94.0 fL CERNER MILLENNIUM MCH 30.0 26.6 - 32.2 pg CERNER MILLENNIUM MCHC 33.3 32.0 - 36.5 gm/dL CERNER MILLENNIUM Platelets 228 145 - 370 x10(3)/mcL CERNER MILLENNIUM RDWSD 50.0(H) 35.0 - 46.0 fL CERNER MILLENNIUM RDWCV 15.6(H) 10.9 - 14.4 % CERNER MILLENNIUM MPV 10.7 9.0 - 12.0 fL CERNER MILLENNIUM Blood specimen (specimen) 12/25/2012 4:14 AM EDT 12/25/2012 4:22 AM EDT Narrative Resulting Agency Comment Spec In Lab Luis E Trotter MD HEMATOLOGY ORDERABLE S [facility] * Duplex for DVT, arm, bilat (12/24/2012 1:45 PM EDT) VB Text Report Department: Vascular Surgery Lab Patient: [id number] (ANUM HENRIQUEZ) CPT Code: 04835 ICD-9: 451.84 Referring Physician: ANKIT OHARA Indication: ??pain in the right shoulder and left medial bicep area. ICD9 Diagnosis Code: 451.84 Findings: Right ? Thrombus ? Upper Arm Basilic Vein ?NON-OCCLUSIVE THROMBUS ?? Mid Upper Arm Basilic Vein ??NON-OCCLUSIVE THROMBUS ?? RIGHT: There is non-occlusive thrombus in the basilic vein at the site of the PICC line (line previously removed) to the upper arm. Internal jugular could not be scanned due to HD lines. Patent subclavian, and axillary veins with normal pulsatile, but somewhat reduced respirophasic Doppler waveforms; no thrombus was detected. The mild reduction in respirophasicity may be due to HD lines. The brachial veins are patent without evidence of thrombus. No cephalic vein in the upper arm. LEFT: Patent internal jugular, subclavian, and axillary veins with normal pulsatile, respirophasic Doppler waveforms; no thrombus was detected. The brachial, cephalic and basilic veins are patent without evidence of thrombus. Interpretation: RIGHT: No evidence of upper extremity deep or superficial venous thrombus. There is non-occlusive thrombus in the basilic vein at the site of the PICC line that has been removed. LEFT: No evidence of upper extremity deep or superficial venous thrombus. Notification: Dr. Kimball notified of the results Electronically Signed by: REBECCA DOUGHERTY on 2012-12-29 12:13:21 AM VASCUBASE VB Text Report End of Report VASCUBASE 12/24/2012 1:45 PM EDT Ankit Ohara MD VASCULAR ORDERABLES Performing Organization Address City/[facility] Co de Phone Number VASCUBASE * Vancomycin, trough (12/24/2012 1:00 PM EDT) Vanc Trough 14.2 mg/L CERNER ManifactIUM Comment: Therapeutic range for complicated infections such as bacteremia, endocarditis, osteomyelitis, meningitis, and hospital-acquired pneumonia caused by S. aureus: 15-20 mg/L Therapeutic range for other indications: 10-15 mg/L Toxic: >25mg/L Reference: Vancomycin Therapeutic Monitoring: Review and Recommendations from the ASHP, IDSA and SIDP Task Force. ??Am J Health-Syst Pharm. 2009; 66:82-98 Blood specimen (specimen) 12/24/2012 1:00 PM EDT 12/24/2012 3:30 PM EDT Narrative Resulting Agency Comment Spec In Lab Ankit Ohara MD CHEMISTRY ORDERABLES [employer] * (ABNORMAL) Differential, Automated (12/24/2012 1:00 PM EDT) Neutrophils % 76.1(H) 34.0 - 71.0 % CERNER MILLENNIUM Neutr Abs (ANC) 5.53 1.50 - 6.30 x10(3)/mc L CERNER MILLENNIUM Lymphocytes % 11.4(L) 19.0 - 53.0 % CERNER MILLENNIUM Lymphocytes Abs 0.8(L) 1.0 - 3.6 x10(3)/mc L CERNER MILLENNIUM Monocytes % 8.5 4.0 - 13.0 % CERNER MILLENNIUM Monocyte Abs 0.6 0.2 - 1.0 x10(3)/mc L CERNER MILLENNIUM Eosinophils % 3.6 0.0 - 7.0 % CERNER MILLENNIUM Eosinophils Abs 0.3 0.0 - 0.5 x10(3)/mc L CERNER MILLENNIUM Basophils % 0.3 0.0 - 2.0 % CERNER MILLENNIUM Basophils Abs 0.0 0.0 - 0.2 x10(3)/mc L CERNER MILLENNIUM Immature Gran % 0.10 0.00 - 0.66 % CERNER MILLENNIUM Comment: Immature granulocytes(IG's)percentage and absolute count will include metamyelocytes, myelocytes, and promyelocytes. Blood smears from CBCs yielding IG's will be scanned manually for concordance. If this scan disagrees with the automated IG or if promyelocytes are noted, a manual differential will be performed. Petty Gran Abs 0.01 0.00 - 0.05 x10(3)/mc L CERNER MILLENNIUM Blood specimen (specimen) 12/24/2012 1:00 PM EDT 12/24/2012 1:17 PM EDT Ankit Ohara MD HEMATOLOGY ORDERABLE S CERNER MILLENNIUM * (ABNORMAL) CBC (with Diff) (12/24/2012 1:00 PM EDT) WBC 7.3 4.0 - 10.0 x10(3)/mcL CERNER MILLENNIUM RBC 2.86(L) 3.93 - 5.22 x10(6)/mcL CERNER MILLENNIUM Hemoglobin 8.7(L) 11.2 - 15.7 gm/dL CERNER MILLENNIUM Hematocrit 25.5(L) 34.0 - 45.0 % CERNER MILLENNIUM MCV 89.2 79.0 - 94.0 fL CERNER MILLENNIUM MCH 30.4 26.6 - 32.2 pg CERNER MILLENNIUM MCHC 34.1 32.0 - 36.5 gm/dL CERNER MILLENNIUM Platelets 249 145 - 370 x10(3)/mcL CERNER MILLENNIUM RDWSD 50.3(H) 35.0 - 46.0 fL CERNER MILLENNIUM RDWCV 15.7(H) 10.9 - 14.4 % CERNER MILLENNIUM MPV 11.5 9.0 - 12.0 fL BAR MILLENNIUM Blood specimen (specimen) 12/24/2012 1:00 PM EDT 12/24/2012 1:17 PM EDT Narrative Resulting Agency Comment Spec In Lab Ankit Ohara MD HEMATOLOGY ORDERABLE S Performing Organization Address City/[facility] Co de Phone Number BAR PINEDAIUM * Direct antiglobulin test (12/24/2012 1:00 PM EDT) Pathologist [facility] SEN Negative BAR PINEDAIUM Blood specimen (specimen) 12/24/2012 1:00 PM EDT 12/24/2012 1:22 PM EDT Narrative Resulting Agency Comment Spec In Lab Ankit Ohara MD BLOOD BANK LAB ORDER VIKAS BAR PINEDAIUM * (ABNORMAL) Reticulocyte Count (12/24/2012 1:00 PM EDT) Retic Ct % 1.5 0.5 - 2.4 % CERNER MILLENNIUM Retic Ct Abs 0.040 0.027 - 0.095 x10(6)/mcL CERNER MILLENNIUM Immature Retic% 5.5 2.3 - 15.9 % CERNER MILLENNIUM Reticulated Hgb 27.9(L) 28.8 - 38.9 pg CERNER MILLENNIUM Plat Immature % 4.2 0.0 - 7.4 % CERNER MILLENNIUM Blood specimen (specimen) 12/24/2012 1:00 PM EDT 12/24/2012 1:17 PM EDT Narrative Resulting Agency Comment Spec In Lab Ankit Ohara MD HEMATOLOGY ORDERABLE S Performing Organization Address [facility] Co de Phone Number BAR PINEDAIUM * Haptoglobin (12/24/2012 1:00 PM EDT) Haptoglobin 75 30 - 200 mg/dL CERNER MILLENNIUM Comment: Haptoglobin concentrations in newborns is low to undetectable; however, adult concentrations are usually attained by 4 months of age. ??No sex-related differences for haptoglobin have been detected. Blood specimen (specimen) 12/24/2012 1:00 PM EDT 12/24/2012 1:17 PM EDT Narrative Resulting Agency Comment Spec In Lab Ankit Ohara MD CHEMISTRY ORDERABLES Performing Organization Address [facility] de Phone Number BAR PINEDAIUM * Bilirubin, total and direct (12/24/2012 1:00 PM EDT) Total Bilirubin 0.4 0.2 - 1.3 mg/dL CERNER MILLENNIUM Bili, Direct 0.1 0.0 - 0.3 mg/dL CERNER MILLENNIUM Blood specimen (specimen) 12/24/2012 1:00 PM EDT 12/24/2012 1:17 PM EDT Narrative Resulting Agency Comment Spec In Lab Ankit Ohara MD CHEMISTRY ORDERABLES Performing Organization Address [facility] de Phone Number BAR PINEDAIUM * SCAN DOC: LAB (12/24/2012 9:41 AM EDT) Narrative 12/24/2012 9:41 AM EDT Procedure Note Provider, Scanning - 12/24/2012 9:41 AM EDT Scanning Provider MEDIA MGR SCAN EXT O RDR/RSLT * Phosphorus (12/24/2012 3:58 AM EDT) Pathologist [facility] Phosphorus 2.9 2.5 - 4.5 mg/dL [facility] Blood specimen (specimen) 12/24/2012 3:58 AM EDT 12/24/2012 3:58 AM EDT Narrative Resulting Agency Comment Spec In Lab Fabi Bliss MD CHEMISTRY ORDERA BLERenuka Performing Organization Address [facility] Co de Phone Number [facility] * Magnesium (12/24/2012 3:58 AM EDT) [facility] Magnesium 0.74 0.69 - 1.07 mmol/L [facility] Blood specimen (specimen) 12/24/2012 3:58 AM EDT 12/24/2012 3:58 AM EDT Narrative Resulting Agency Comment Spec In Lab Fabi Bliss MD CHEMISTRY ORDERA BLES Performing Organization Address [facility] Co de Phone Number [facility] * (ABNORMAL) Lactate Dehydrogenase (12/24/2012 3:58 AM EDT) Pathologist [facility] LDH 237(H) 110 - 220 unit/L [facility] Blood specimen (specimen) 12/24/2012 3:58 AM EDT 12/24/2012 3:58 AM EDT Narrative Resulting Agency Comment Spec In Lab Fabi Bliss MD CHEMISTRY ORDERA BLES Performing Organization Address [facility] Co de Phone Number [facility] * (ABNORMAL) Basic Metabolic Panel (non-fasting) (12/24/2012 3:58 AM EDT) Pathologist [facility] Glucose Lvl 95 60 - 199 mg/dL [facility] Comment:Diabetes: >=200 mg/d L plus symptoms BUN 7(L) 8 - 18 mg/dL CERNER MILLENNIUM Creatinine 1.59(H) 0.70 - 1.20 mg/dL CERNER MILLENNIUM Comment: Please note that the pediatric reference intervals supplied above were not validated [place] [facility] Results from pediatric patients should be interpreted in conjunction to the patient's age, height and muscle mass. Sodium 138 135 - 145 mmol/L CERNER MILLENNIUM Potassium 3.7 3.5 - 5.0 mmol/L CERNER MILLENNIUM Comment: [...] 5 - 15 mmol/L CERNER MILLENNIUM Calcium 7.9(L) 8.5 - 10.5 mg/dL CERNER MILLENNIUM Estimated GFR 34(L) >=60 CERNER MILLENNIUM Comment: This estimated GFR [...] internet browser. http://www.nkdep.nih.gov/lab-evaluation.shtml http://www.kidney.org/professionals/ Blood specimen (specimen) 12/24/2012 3:58 AM EDT 12/24/2012 3:58 AM EDT Narrative Resulting Agency Comment Spec In Lab LuisE Trotter MD CHEMISTRY ORDERABLES CERELIO ARCOSENNIUM * (ABNORMAL) Differential, Automated (12/24/2012 3:45 AM EDT) Neutrophils % 72.0(H) 34.0 - 71.0 % CERNER MILLENNIUM Neutr Abs (ANC) 4.32 1.50 - 6.30 x10(3)/mc L CERNER MILLENNIUM Lymphocytes % 15.3(L) 19.0 - 53.0 % CERNER MILLENNIUM Lymphocytes Abs 0.9(L) 1.0 - 3.6 x10(3)/mc L CERNER MILLENNIUM Monocytes % 7.8 4.0 - 13.0 % CERNER MILLENNIUM Monocyte Abs 0.5 0.2 - 1.0 x10(3)/mc L CERNER MILLENNIUM Eosinophils % 4.5 0.0 - 7.0 % CERNER MILLENNIUM Eosinophils Abs 0.3 0.0 - 0.5 x10(3)/mc L CERNER MILLENNIUM Basophils % 0.2 0.0 - 2.0 % CERNER MILLENNIUM Basophils [...] Abs 0.01 0.00 - 0.05 x10(3)/mc L CERNER MILLENNIUM Blood specimen (specimen) 12/24/2012 3:45 AM EDT 12/24/2012 3:53 AM EDT Luis E Trotter MD HEMATOLOGY ORDERABLE S BAR PINEDAIUM * Blood culture (12/24/2012 3:45 AM EDT) Blood Culture ? Patient Name: ANUM HENRIQUEZ ?Ordered By: ANKIT OHARA ? MR#: [id number] ?LOC: ??1WST ? /Sex: ??1960 (52 years), ? Female ? PROCEDURE: Blood Culture ?SOURCE: Blood ? COLLECTED: 12/24/2012 03:45 ?FREE TEXT SOURCE: no site provided ? STARTED: 12/24/2012 07:36 ? FINAL REPORT ? Final Report ? Verified:2012 15:11 ? No growth at 5 days. ? PRELIMINARY REPORT ? Preliminary Report ? Verified:2012 15:10 ? No growth at 4 days. ? CERNER MILLENNIUM Blood specimen (specimen) 12/24/2012 3:45 AM EDT 12/24/2012 7:35 AM EDT Narrative Resulting Agency Comment Spec In Lab Ankit Ohara MD MICROBIOLOGY - BLOOD ORDERABLES BAR ARCOSENNIUM * (ABNORMAL) CBC (with Diff) (12/24/2012 3:45 AM EDT) WBC 6.0 4.0 - 10.0 x10(3)/mcL CERNER MILLENNIUM RBC 2.66(L) 3.93 - 5.22 x10(6)/mcL CERNER MILLENNIUM Hemoglobin 7.9(L) 11.2 - 15.7 gm/dL CERNER MILLENNIUM Hematocrit 23.8(L) 34.0 - 45.0 % CERNER MILLENNIUM MCV 89.5 79.0 - 94.0 fL BAR ARCOSENNIUM MCH 29.7 26.6 - 32.2 pg BAR ARCOSENNIUM MCHC 33.2 32.0 - 36.5 gm/dL BAR ARCOSENNIUM Platelets 221 145 - 370 x10(3)/mcL BAR ARCOSENNIUM RDWSD 51.0(H) 35.0 - 46.0 fL BAR ARCOSENNIUM RDWCV 16.1(H) 10.9 - 14.4 % BAR ARCOSENNIUM MPV 11.2 9.0 - 12.0 fL BAR PINEDAIUM Blood specimen (specimen) 12/24/2012 3:45 AM EDT 12/24/2012 3:53 AM EDT Narrative Resulting Agency Comment Spec In Lab Luis E Trotter MD HEMATOLOGY ORDERABLE S BAR PINEDAIUM * Antibody screen (12/23/2012 1:29 PM EDT) Ab Screen Interp Negative BAR PINEDAIUM Expires at [id number] on: [id number] BAR PINEDAIUM Blood specimen (specimen) 12/23/2012 1:29 PM EDT 12/23/2012 1:43 PM EDT Narrative Resulting Agency Comment Spec In Lab Ankit Ohara MD BLOOD BANK LAB ORDER VIKAS BAR PINEDAIUM * ABO/Rh Typing (12/23/2012 1:29 PM EDT) ABORH Type AB Pos BAR PINEDAIUM Blood specimen (specimen) 12/23/2012 1:29 PM EDT 12/23/2012 1:43 PM EDT Narrative Resulting Agency Comment Spec In Lab Ankit Ohara MD BLOOD BANK LAB ORDER VIKAS BAR PINEDAIUM * Vancomycin, trough (12/23/2012 1:29 PM EDT) Vanc Trough 9.7 mg/L [facility] Comment: Therapeutic range for complicated infections such as bacteremia, endocarditis, osteomyelitis, meningitis, and hospital-acquired pneumonia caused by S. aureus: 15-20 mg/L Therapeutic range for other indications: 10-15 mg/L Toxic: >25mg/L Reference: Vancomycin Therapeutic Monitoring: Review and Recommendations from the ASHP, IDSA and SIDP Task Force. ??Am J Health-Syst Pharm. 2009; 66:82-98 Blood specimen (specimen) 12/23/2012 1:29 PM EDT 12/23/2012 1:37 PM EDT Narrative Resulting Agency Comment Spec In Lab Ankit Ohara MD CHEMISTRY ORDERABLES [facility] * Transfuse RBC (12/23/2012 10:14 AM EDT) Ankit Ohara MD NURSING TREATMENT OR DERABLES - BLOOD ADMIN * Blood culture (12/23/2012 9:15 AM EDT) [facility] Blood Culture ? Patient Name: ANUM HENRIQUEZ ?Ordered By: ANKIT OHARA ? MR#: [id number] ?LOC: ??1WST ? /Sex: ??1960 (52 years), ? Female ? PROCEDURE: Blood Culture ?SOURCE: Blood ? COLLECTED: 12/23/2012 09:15 ? BODY SITE: Other ? STARTED: 12/24/2012 15:05 ?FREE TEXT SOURCE: no source provided ? FINAL REPORT ? Final Report ? Verified:2012 15:11 ? No growth at 5 days. ? PRELIMINARY REPORT ? Preliminary Report ? Verified:2012 23:10 ? No growth at 4 days. ? CERNER ISRRAELENNIUM Blood specimen (specimen) TOPOGRAPHY UNKNOWN / Unknown 12/23/2012 9:15 AM EDT 12/23/2012 9:31 AM EDT Comment:NO SOURCE PROVIDED Narrative Resulting Agency Comment Spec In Lab Ankit Ohara MD MICROBIOLOGY - BLOOD ORDERABLES BAR PINEDAIUM * Prepare RBC (12/23/2012 6:40 AM EDT) Dispensed? Yes BAR ARCOSENNIUM Blood specimen (specimen) 12/23/2012 6:40 AM EDT 12/23/2012 6:37 AM EDT Ankit Ohara MD BLOOD BANK PRODUCT O RDERABLES Performing Organization Address City/State/[facility] Co de Phone Number BAR PINEDAIUM * (ABNORMAL) Differential, Automated (12/23/2012 5:45 AM EDT) Neutrophils % 74.3(H) 34.0 - 71.0 % CERNER MILLENNIUM Neutr Abs (ANC) 4.80 1.50 - 6.30 x10(3)/mc L CERNER MILLENNIUM Lymphocytes % 13.5(L) 19.0 - 53.0 % CERNER MILLENNIUM Lymphocytes Abs 0.9(L) 1.0 - 3.6 x10(3)/mc L CERNER MILLENNIUM Monocytes % 7.7 4.0 - 13.0 % CERNER MILLENNIUM Monocyte Abs 0.5 0.2 - 1.0 x10(3)/mc L CERNER MILLENNIUM Eosinophils % 4.0 0.0 - 7.0 % CERNER MILLENNIUM Eosinophils Abs 0.3 0.0 - 0.5 x10(3)/mc L CERNER MILLENNIUM [...] Abs 0.01 0.00 - 0.05 x10(3)/mc L CERNER MILLENNIUM Blood specimen (specimen) 12/23/2012 5:45 AM EDT 12/23/2012 6:08 AM EDT Luis E Trotter MD HEMATOLOGY ORDERABLE S BAR NOE * Blood culture (12/23/2012 5:45 AM EDT) Blood Culture ? Patient Name: ANUM HENRIQUEZ ?Ordered By: ANKIT OHARA ? MR#: [id number] ?LOC: ??1WST ? /Sex: ??1960 (52 years), ? Female ? PROCEDURE: Blood Culture ?SOURCE: Blood ? COLLECTED: 12/23/2012 05:45 ?FREE TEXT SOURCE: no site provided ? STARTED: 12/23/2012 07:17 ? FINAL REPORT ? Final Report ? Verified:2012 15:10 ? No growth at 5 days. ? PRELIMINARY REPORT ? Preliminary Report ? Verified:2012 15:11 ? No growth at 4 days. ? BAR NOE Blood specimen (specimen) 12/23/2012 5:45 AM EDT 12/23/2012 7:17 AM EDT Narrative Resulting Agency Comment Spec In Lab Ankit Ohara MD MICROBIOLOGY - BLOOD ORDERABLES BAR PINEDAIUM * Phosphorus (12/23/2012 5:45 AM EDT) Phosphorus 2.9 2.5 - 4.5 mg/dL BAR NOE Blood specimen (specimen) 12/23/2012 5:45 AM EDT 12/23/2012 6:08 AM EDT Narrative Resulting Agency Comment Spec In Lab Fabi Bliss MD CHEMISTRY ORDERA BLES BAR PINEDAIUM * Magnesium (12/23/2012 5:45 AM EDT) Magnesium 0.71 0.69 - 1.07 mmol/L BAR PINEDAIUM Blood specimen (specimen) 12/23/2012 5:45 AM EDT 12/23/2012 6:08 AM EDT Narrative Resulting Agency Comment Spec In Lab Fabi Bliss MD CHEMISTRY ORDERA ZOEYS Performing Organization Address [facility] Co de Phone Number CERNER MILLENNIUM * (ABNORMAL) Lactate Dehydrogenase (12/23/2012 5:45 AM EDT) LDH 240(H) 110 - 220 unit/L CERNER MILLENNIUM Blood specimen (specimen) 12/23/2012 5:45 AM EDT 12/23/2012 6:08 AM EDT Narrative Resulting Agency Comment Spec In Lab Fabi Bliss MD CHEMISTRY ORDERA BLES Performing Organization Address [facility] de Phone Number CERNER MILLENNIUM * (ABNORMAL) Basic Metabolic Panel (non-fasting) (12/23/2012 5:45 AM EDT) Glucose Lvl 92 60 - 199 mg/dL CERNER MILLENNIUM Comment:Diabetes: >=200 mg/d L plus symptoms BUN 11 8 - 18 mg/dL CERNER MILLENNIUM Creatinine 1.52(H) 0.70 - 1.20 mg/dL CERNER MILLENNIUM Comment: Please note that the pediatric reference intervals supplied above were not validated [place] [facility] Results from pediatric patients should be interpreted [...] Laboratory if there are any questions. Chloride 104 98 - 107 mmol/L CERNER MILLENNIUM CO2 26 22 - 31 mmol/L CERNER MILLENNIUM Anion Gap 8 5 - 15 mmol/L CERNER MILLENNIUM Calcium 7.8(L) 8.5 - 10.5 mg/dL CERNER MILLENNIUM Estimated GFR 36(L) >=60 CERNER MILLENNIUM Comment: This estimated GFR [...] internet browser. http://www.nkdep.nih.gov/lab-evaluation.shtml http://www.kidney.org/professionals/ Blood specimen (specimen) 12/23/2012 5:45 AM EDT 12/23/2012 6:08 AM EDT Narrative Resulting Agency Comment Spec In Lab Luis E Trotter MD CHEMISTRY ORDERABLES CERNER MILLENNIUM * (ABNORMAL) CBC (with Diff) (12/23/2012 5:45 AM EDT) WBC 6.5 4.0 - 10.0 x10(3)/mcL CERNER MILLENNIUM RBC 2.29(L) 3.93 - 5.22 x10(6)/mcL CERNER MILLENNIUM Hemoglobin 6.8(L) 11.2 - 15.7 gm/dL CERNER MILLENNIUM Hematocrit 20.9(L) 34.0 - 45.0 % CERNER MILLENNIUM MCV 91.3 79.0 - 94.0 fL CERNER MILLENNIUM MCH 29.7 26.6 - 32.2 pg CERNER MILLENNIUM MCHC 32.5 32.0 - 36.5 gm/dL CERNER MILLENNIUM Platelets 186 145 - 370 x10(3)/mcL CERNER MILLENNIUM RDWSD 47.8(H) 35.0 - 46.0 fL CERNER MILLENNIUM RDWCV 14.7(H) 10.9 - 14.4 % CERNER MILLENNIUM MPV 10.7 9.0 - 12.0 fL CERNER MILLENNIUM Blood specimen (specimen) 12/23/2012 5:45 AM EDT 12/23/2012 6:08 AM EDT Narrative Resulting Agency Comment Spec In Lab Luis E Trotter MD HEMATOLOGY ORDERABLE S Performing Organization Address [facility] Co de Phone Number BAR NOE * Urine culture Urine (12/23/2012 1:45 AM EDT) Urine Culture ? Patient Name: ANUM HENRIQUEZ ?Ordered By: ANKIT OHARA ? MR#: [id number] ?LOC: ??1WST ? /Sex: ??1960 (52 years), ? Female ? PROCEDURE: Urine Culture ?SOURCE: U CC ? COLLECTED: 12/23/2012 01:45 ? STARTED: 12/23/2012 07:29 ? FINAL REPORT ? Final Report ? Verified:2012 08:56 ? 1,000-9,000 cfu/ml Gram Positive organisms , probable contaminant ? BAR NOE Urine specimen obtained by clean catch procedure (specimen) 12/23/2012 1:45 AM EDT 12/23/2012 7:29 AM EDT Narrative Resulting Agency Comment Spec In Lab Ankit Ohara MD MICROBIOLOGY - GENER AL ORDERABLES Performing Organization Address City/[facility] Co de Phone Number BAR NOE * (ABNORMAL) Urinalysis with microscopic (12/23/2012 1:44 AM EDT) Glucose UA Negative Negative mg/dL [facility] Protein UA 100(A) Neg mg/dL [facility] Bilirubin UA Negative Negative mg/dL [facility] Urobilinogen UA Normal mg/dL [facility] pH UA 8.5(H) 5.0 - 8.0 [facility] Blood UA Trace(A) Neg [facility] Ketones UA Negative mg/dL [facility] Nitrite UA Negative [facility] MILLENNIUM Leukocytes UA Negative mcL [facility] Appearance UA Clear Clear [facility] Spec [place] UA 1.009 1.002 - 1.030 [facility] Color UA Light Yellow Yellow [facility] RBC UA 2 0 - 4 /HPF [facility] WBC UA 2 0 - 5 /HPF [facility] Urine specimen (specimen) 12/23/2012 1:44 AM EDT 12/23/2012 1:58 AM EDT Narrative Resulting Agency Comment Spec In Lab Ankit Ohara MD URINE ORDERABLES [facility] * Helicobacter pylori Antigen Stool (12/22/2012 6:24 PM EDT) H pylori Antigen, Stool Negative Negative [facility] Comment: Test Performed by: [facility] [address], [place] [address] Channel Opener: Jennifer Ramirez, Ph.D. Stool specimen (specimen) 12/22/2012 6:24 PM EDT 12/24/2012 2:42 PM EDT Narrative Resulting Agency Comment Spec In Lab Ankit Ohara MD MICROBIOLOGY - GENER AL ORDERABLES [facility] * (ABNORMAL) Differential, Automated (12/22/2012 1:16 PM EDT) Neutrophils % 83.0(H) 34.0 - 71.0 % CERNER MILLENNIUM Neutr Abs (ANC) 8.81(H) 1.50 - 6.30 x10(3)/mc L CERNER MILLENNIUM Lymphocytes % 7.6(L) 19.0 - 53.0 % CERNER MILLENNIUM Lymphocytes Abs 0.8(L) 1.0 - 3.6 x10(3)/mc L CERNER MILLENNIUM Monocytes % 7.0 4.0 - 13.0 % CERNER MILLENNIUM Monocyte Abs 0.7 0.2 - 1.0 x10(3)/mc L CERNER MILLENNIUM Eosinophils % 2.1 0.0 - 7.0 % CERNER MILLENNIUM Eosinophils Abs 0.2 0.0 - 0.5 x10(3)/mc L CERNER MILLENNIUM Basophils % 0.1 0.0 - 2.0 % CERNER MILLENNIUM Basophils [...] x10(3)/mc L CERNER MILLENNIUM Blood specimen (specimen) 12/22/2012 1:16 PM EDT 12/22/2012 1:23 PM EDT Ankit Ohara MD HEMATOLOGY ORDERABLE S CERNER ISRRAELENNIUM * (ABNORMAL) CBC (with Diff) (12/22/2012 1:16 PM EDT) WBC 10.6(H) 4.0 - 10.0 x10(3)/mcL CERNER MILLENNIUM RBC 2.44(L) 3.93 - 5.22 x10(6)/mcL CERNER MILLENNIUM Hemoglobin 7.3(L) 11.2 - 15.7 gm/dL CERNER MILLENNIUM Hematocrit 21.9(L) 34.0 - 45.0 % CERNER MILLENNIUM MCV 89.8 79.0 - 94.0 fL CERNER MILLENNIUM MCH 29.9 26.6 - 32.2 pg CERNER MILLENNIUM MCHC 33.3 32.0 - 36.5 gm/dL CERNER MILLENNIUM Platelets 165 145 - 370 x10(3)/mcL CERNER MILLENNIUM RDWSD 46.3(H) 35.0 - 46.0 fL CERNER MILLENNIUM RDWCV 14.5(H) 10.9 - 14.4 % CERNER MILLENNIUM MPV 10.4 9.0 - 12.0 fL CERNER MILLENNIUM Blood specimen (specimen) 12/22/2012 1:16 PM EDT 12/22/2012 1:23 PM EDT Narrative Resulting Agency Comment Spec In Lab Ankit Ohara MD HEMATOLOGY ORDERABLE S BAR NOE * Blood culture (12/22/2012 1:16 PM EDT) Blood Culture ? Patient Name: ANUM HENRIQUEZ ?Ordered By: ANKIT OHARA ? MR#: [id number] ?LOC: ??1WST ? /Sex: ??1960 (52 years), ? Female ? PROCEDURE: Blood Culture ?SOURCE: Blood ? COLLECTED: 12/22/2012 13:16 ? BODY SITE: PICC Line ? STARTED: 12/22/2012 13:26 ?FREE TEXT SOURCE: #2 ? FINAL REPORT ? Final Report ? Verified:2012 15:10 ? No growth at 5 days. ? PRELIMINARY REPORT ? Preliminary Report ? Verified:2012 15:10 ? No growth at 4 days. ? BAR NOE Blood specimen (specimen) PERIPHERALLY INSERTED CENTRAL CATHETER / Unknown 12/22/2012 1:16 PM EDT 12/22/2012 1:26 PM EDT Narrative Resulting Agency Comment Spec In Lab Ankit Ohara MD MICROBIOLOGY - BLOOD ORDERABLES BAR NOE * Blood culture (12/22/2012 1:01 PM EDT) Blood Culture ? Patient Name: ANUM HENRIQUEZ ?Ordered By: ANKIT OHARA ? MR#: [id number] ?LOC: ??1WST ? /Sex: ??1960 (52 years), ? Female ? PROCEDURE: Blood Culture ?SOURCE: Blood ? COLLECTED: 12/22/2012 13:01 ? BODY SITE: Left Antecubital ? STARTED: 12/22/2012 13:12 ?FREE TEXT SOURCE: #1 ? FINAL REPORT ? Final Report ? Verified:2012 15:10 ? No growth at 5 days. ? PRELIMINARY REPORT ? Preliminary Report ? Verified:2012 15:10 ? No growth at 4 days. ? BAR PINEDAIUM Blood specimen (specimen) ANTECUBITAL REGION STRUCTURE / Unknown 12/22/2012 1:01 PM EDT 12/22/2012 1:12 PM EDT Narrative Resulting Agency Comment Spec In Lab Ankit Ohara MD MICROBIOLOGY - BLOOD ORDERABLES BAR NOE * Blood culture (12/22/2012 12:45 PM EDT) Blood Culture ? Patient Name: ANUM HENRIQUEZ ?Ordered By: ANKIT OHARA ? MR#: [id number] ?LOC: ??1WST ? /Sex: ??1960 (52 years), ? Female ? PROCEDURE: Blood Culture ?SOURCE: Blood ? COLLECTED: 12/22/2012 12:45 ?FREE TEXT SOURCE: First Draw:PHERESIS ? STARTED: 12/22/2012 13:27 ? FINAL REPORT ? Final Report ? Verified:2012 15:10 ? No growth at 5 days. ? PRELIMINARY REPORT ? Preliminary Report ? Verified:2012 15:10 ? No growth at 4 days. ? BAR PINEDAIUM Blood specimen (specimen) 12/22/2012 12:45 PM EDT 12/22/2012 1:26 PM EDT Comment:FIRST DRAW: Narrative Resulting Agency Comment Spec In Lab Ankit Ohara MD MICROBIOLOGY - BLOOD ORDERABLES Performing Organization Address [facility] de Phone Number BAR PINEDAIUM * Vancomycin, trough (12/22/2012 9:30 AM EDT) [facility] Vanc Trough 21.4 mg/L CERNER ISRRAELENNIUM Comment: Therapeutic range for complicated infections such as bacteremia, endocarditis, osteomyelitis, meningitis, and hospital-acquired pneumonia caused by S. aureus: 15-20 mg/L Therapeutic range for other indications: 10-15 mg/L Toxic: >25mg/L Reference: Vancomycin Therapeutic Monitoring: Review and Recommendations from the ASHP, IDSA and SIDP Task Force. ??Am J Health-Syst Pharm. 2009; 66:82-98 Blood specimen (specimen) 12/22/2012 9:30 AM EDT 12/22/2012 9:53 AM EDT Narrative Resulting Agency Comment Spec In Lab Ankit Ohara MD CHEMISTRY ORDERABLES Performing Organization Address [facility] de Phone Number BAR ARCOSENNIUM * (ABNORMAL) Differential, Automated (12/22/2012 5:00 AM EDT) Neutrophils % 85.5(H) 34.0 - 71.0 % CERNER MILLENNIUM Neutr Abs (ANC) 10.05(H) 1.50 - 6.30 x10(3)/mc L CERNER MILLENNIUM Lymphocytes % 7.5(L) 19.0 - 53.0 % CERNER MILLENNIUM Lymphocytes Abs 0.9(L) 1.0 - 3.6 x10(3)/mc L CERNER MILLENNIUM Monocytes % 4.9 4.0 - 13.0 % CERNER MILLENNIUM Monocyte Abs 0.6 0.2 - 1.0 x10(3)/mc L CERNER MILLENNIUM Eosinophils % 1.6 0.0 - 7.0 % CERNER MILLENNIUM Eosinophils Abs 0.2 0.0 - 0.5 x10(3)/mc L CERNER MILLENNIUM Basophils % 0.2 0.0 - 2.0 % CERNER MILLENNIUM Basophils [...] differential will be performed. Petty Gran Abs 0.03 0.00 - 0.05 x10(3)/mc L CERNER MILLENNIUM Blood specimen (specimen) 12/22/2012 5:00 AM EDT 12/22/2012 5:08 AM EDT Luis E Trotter MD HEMATOLOGY ORDERABLE S BAR ARCOSENNIUM * Phosphorus (12/22/2012 5:00 AM EDT) Phosphorus 2.6 2.5 - 4.5 mg/dL CERNER MILLENNIUM Blood specimen (specimen) 12/22/2012 5:00 AM EDT 12/22/2012 5:08 AM EDT Narrative Resulting Agency Comment Spec In Lab Fabi Bliss MD CHEMISTRY ORDERA BLERenuka Performing Organization Address [facility] Center de Phone Number [facility] MIRIAMIUM * Magnesium (12/22/2012 5:00 AM EDT) Magnesium 0.71 0.69 - 1.07 mmol/L [facility] Blood specimen (specimen) 12/22/2012 5:00 AM EDT 12/22/2012 5:08 AM EDT Narrative Resulting Agency Comment Spec In Lab Fabi Bliss MD CHEMISTRY ORDERA BLERenuka Performing Organization Address [facility] de Phone Number [facility] MIRIAMIUM * (ABNORMAL) Lactate Dehydrogenase (12/22/2012 5:00 AM EDT) Pathologist [facility] LDH 232(H) 110 - 220 unit/L [facility] Blood specimen (specimen) 12/22/2012 5:00 AM EDT 12/22/2012 5:08 AM EDT Narrative Resulting Agency Comment Spec In Lab Fabi Bliss MD CHEMISTRY ORDERA BLES Performing Organization Address [facility] de Phone Number [facility] KUSUM * (ABNORMAL) Basic Metabolic Panel (non-fasting) (12/22/2012 5:00 AM EDT) Pathologist [facility] Glucose Lvl 96 60 - 199 mg/dL [facility] Comment:Diabetes: >=200 mg/d L plus symptoms BUN 15 8 - 18 mg/dL [facility] Creatinine 1.53(H) 0.70 - 1.20 mg/dL [facility] Comment: result rechecked-[facility] Please note that the pediatric reference intervals supplied above were not validated at [facility]. Results from pediatric patients should be interpreted in conjunction to the patient's age, height and muscle mass. result rechecked- Please note that the pediatric reference intervals supplied above were not validated at [facility]. Results from pediatric patients should be interpreted in conjunction to the patient's age, height and muscle mass. Corrected from 1.53 mg/dL [HI] on 12/22/12 05:50:53 EDT by Griselda Vinson Sodium 138 135 - 145 mmol/L [facility] Potassium 3.8 3.5 - 5.0 mmol/L [facility] Comment: Please note: ??Patients with WBC >100,000 may have falsely elevated Potassium levels. ??For accurate Potassium quantification in these patients send serum separator tube (gold top) for subsequent determinations. ??Contact the Clinical Chemistry Laboratory if there are any questions. Chloride 101 98 - 107 mmol/L [facility] CO2 29 22 - 31 mmol/L [facility] Anion Gap 8 5 - 15 mmol/L [facility] Calcium 7.1(L) 8.5 - 10.5 mg/dL [facility] Comment: result rechecked-[facility] result rechecked- Corrected from 7.1 mg/dL [LOW] on 12/22/12 05:50:53 EDT by Griselda Vinson Estimated GFR 35(L) >=60 [facility] Comment: This estimated GFR [...] internet browser. http://www.nkdep.nih.gov/lab-evaluation.shtml http://www.kidney.org/professionals/ Blood specimen (specimen) 12/22/2012 5:00 AM EDT 12/22/2012 5:08 AM EDT Narrative Resulting Agency Comment Spec In Lab Luis E Trotter MD CHEMISTRY ORDERABLES [facility] * (ABNORMAL) CBC (with Diff) (12/22/2012 5:00 AM EDT) WBC 11.8(H) 4.0 - 10.0 x10(3)/mcL [facility] M[facility] RBC 2.45(L) 3.93 - 5.22 x10(6)/mcL [facility] Hemoglobin 7.3(L) 11.2 - 15.7 gm/dL [facility] Hematocrit 22.0(L) 34.0 - 45.0 % [facility] MCV 89.8 79.0 - 94.0 fL [facility] MCH 29.8 26.6 - 32.2 pg [facility] MCHC 33.2 32.0 - 36.5 gm/dL [facility] Platelets 165 145 - 370 x10(3)/mcL [facility] RDWSD 45.8 35.0 - 46.0 fL [facility] RDWCV 14.7(H) 10.9 - 14.4 % [facility] MPV 10.1 9.0 - 12.0 fL [facility] MILLENNIUM Blood specimen (specimen) 12/22/2012 5:00 AM EDT 12/22/2012 5:08 AM EDT Narrative Resulting Agency Comment Spec In Lab Luis E Trotter MD HEMATOLOGY ORDERABLE S Performing Organization Address [facility] Co de Phone Number [facility] * Fibrinogen (12/22/2012 5:00 AM EDT) Fibrinogen 326 175 - 450 mg/dL [facility] Blood specimen (specimen) 12/22/2012 5:00 AM EDT 12/22/2012 5:08 AM EDT Narrative Resulting Agency Comment Spec In Lab Ankit Ohara MD HEMATOLOGY ORDERABLE S [facility] * (ABNORMAL) APTT (12/22/2012 5:00 AM EDT) PTT 36(H) 25 - 35 sec [facility] MILLENNIUM Comment: Recommended therapeutic PTT range for full dose unfractionated heparin is 80-114 seconds. Blood specimen (specimen) 12/22/2012 5:00 AM EDT 12/22/2012 5:08 AM EDT Narrative Resulting Agency Comment Spec In Lab Ankit Ohara MD HEMATOLOGY ORDERABLE S Performing Organization Address [facility] de Phone Number [facility] * (ABNORMAL) Prothrombin Time (12/22/2012 5:00 AM EDT) PT 17.1(H) 12.0 - 15.0 sec [facility] Comment: [facility] Transfusion Committee Guidelines: INR less than 2.0, PTT less than OR equal to 43.5 seconds, or Fibrinogen greater than or equal to 100 mg/dl indicate adequate procoagulant activity for hemostasis in patients without underlying bleeding disorders. INR 1.4(H) 0.9 - 1.1 [facility] Blood specimen (specimen) 12/22/2012 5:00 AM EDT 12/22/2012 5:08 AM EDT Narrative Resulting Agency Comment Spec In Lab Ankit Ohara MD HEMATOLOGY ORDERABLE S Performing Organization Address [facility] de Phone Number [facility] * Hepatitis B Surface Antigen (12/21/2012 7:35 PM EDT) HepB Surface Ag Negative Negative [facility] Blood specimen (specimen) 12/21/2012 7:35 PM EDT 12/22/2012 8:11 AM EDT Narrative Resulting Agency Comment Spec In Lab Ankit Ohara MD CHEMISTRY ORDERABLES Performing Organization Address [facility] de Phone Number [facility] * Vancomycin, trough (12/21/2012 7:35 PM EDT) Vanc Trough 7.0 mg/L [facility] Comment: Therapeutic range for complicated infections such as bacteremia, endocarditis, osteomyelitis, meningitis, and hospital-acquired pneumonia caused by S. aureus: 15-20 mg/L Therapeutic range for other indications: 10-15 mg/L Toxic: >25mg/L Reference: Vancomycin Therapeutic Monitoring: Review and Recommendations from the ASHP, IDSA and SIDP Task Force. ??Am J Health-Syst Pharm. 2009; 66:82-98 Blood specimen (specimen) 12/21/2012 7:35 PM EDT 12/21/2012 7:51 PM EDT Narrative Resulting Agency Comment Spec In Lab Ankit Ohara MD CHEMISTRY ORDERABLES [facility] * MRI brain with/WO contrast (12/21/2012 5:18 PM EDT) Anatomical Region Laterality Modality Head Magnetic Resonan ce 12/21/2012 5:18 PM EDT Narrative 12/21/2012 5:39 PM EDT Examination MR BRAIN W/WO CONTRAST Clinical History TTP-HUS, now with staph bacteremia. New acute worsening of AMS, disconjugate gaze, myoclonic jerks, clonus, hyperreflexia. ?stroke or e/o vasculitis, encephalitis? Comparison NoneComparison 12/16/2012. Technique MRI of the brain with and without contrast. ??13 mL of Magnevist was administered. ??The patient's GFR is under 30 and she was accidentally administered contrast. Arrangements are being made for the patient to receive edema emergent dialysis. Findings No intracranial masses or mass effect. ??On the diffusion sequence, there is subtle signal alteration within the bilateral centrum semiovale, more so on the left side as well as within the splenium of the corpus callosum. ??This finding can not be confirmed on the conventional sequences, but is likely real. ??The splenium of the corpus callosum also appears mildly enlarged on the current study. ??No associated abnormal enhancement. ??Signal in both basal ganglia, specifically the caudate head and body are subtly abnormal on the FLAIR sequence. The cortex is within normal limits. ?? Impression Abnormal diffusion in the bilateral centrum semiovale associated with probable abnormal signal in the bilateral basal ganglia. ??These findings are subtle and nonspecific, but can be seen in setting of toxic metabolic processes, especially given the symmetry. The findings in the deep white matter and corpus callosum raises the possibility of acute demyelination. The findings are not characteristic of a vasculitis or cerebritis. Follow up imaging could be helpful to see how these changes evolve. Procedure Note Sammy Mo MD - 12/21/2012 Examination MR BRAIN W/WO CONTRAST Clinical History TTP-HUS, now with staph bacteremia. New acute worsening of AMS,disconjugate gaze, myoclonic jerks, clonus, hyperreflexia. ?stroke or e/o vasculitis, encephalitis? Comparison NoneComparison 12/16/2012. Technique MRI of the brain with and without contrast. 13 mL of Magnevist was administered. The patient's GFR is under 30 and she was accidentally administered contrast. Arrangements are being made for the patient toreceive edema emergent dialysis. Findings No intracranial masses or mass effect. On the diffusion sequence, thereis subtle signal alteration within the bilateral centrum semiovale, more soon the left side as well as within the splenium of the corpus callosum. Thisfinding can not be confirmed on the conventional sequences, but is likely real.The splenium of the corpus callosum also appears mildly enlarged on thecurrent study. No associated abnormal enhancement. Signal in both basal ganglia, specifically the caudate head and body are subtly abnormal on the FLAIR sequence. The cortex is within normal limits. Impression Abnormal diffusion in the bilateral centrum semiovale associated withprobable abnormal signal in the bilateral basal ganglia. These findings are subtleand nonspecific, but can be seen in setting of toxic metabolic processes, especially given the symmetry. The findings in the deep white matter andcorpus callosum raises the possibility of acute demyelination. The findings arenot characteristic of a vasculitis or cerebritis. Follow up imaging could be helpful to see how these changes evolve. Ankit Ohara MD [facility] MRI ORDERABLES * Blood culture (12/21/2012 3:40 PM EDT) Blood Culture ? Patient Name: ANUM HENRIQUEZ ?Ordered By: ANKIT OHARA ? MR#: [id number] ?LOC: ??1WST ? /Sex: ??1960 (52 years), ? Female ? PROCEDURE: Blood Culture ?SOURCE: Blood ? COLLECTED: 12/21/2012 15:40 ? BODY SITE: Internal Jugular ? STARTED: 12/21/2012 15:52 ?FREE TEXT SOURCE: Please draw one culture from PICC line and ? one from RIJ plasmaphoresis line today. Thank ? you. ? FINAL REPORT ? Final Report ? Verified:12/28/19 15:11 ? No growth at 5 days. ? PRELIMINARY REPORT ? Preliminary Report ? Verified:12/26/19 23:11 ? No growth at 4 days. ? [facility] Blood specimen (specimen) INTERNAL JUGULAR VEIN STRUCTURE / Unknown 12/21/2012 3:40 PM EDT 12/21/2012 3:52 PM EDT Comment:PLEASE DRAW ONE CULT URE FROM PICC LINE AND ONE FROM RIJ PLASMAPHORESIS LINE TODAY. THANK YOU. Narrative Resulting Agency Comment Spec In Lab Ankit Ohara MD MICROBIOLOGY - BLOOD ORDERABLES [facility] * (ABNORMAL) Basic Metabolic Panel (non-fasting) (12/21/2012 3:40 PM EDT) Glucose Lvl 110 60 - 199 mg/dL [facility] Comment:Diabetes: >=200 mg/d L plus symptoms BUN 33(H) 8 - 18 mg/dL [facility]ILLENNI[facility] Creatinine 2.34(H) 0.70 - 1.20 mg/dL [facility] MILLENNI[facility] Comment: Please note that the pediatric reference intervals supplied above were not validated at [facility]. Results from pediatric patients should be interpreted in conjunction to the patient's age, height and muscle mass. Sodium 137 135 - 145 mmol/L [facility] MILLENNI[facility] Potassium 3.5 3.5 - 5.0 mmol/L [facility] MILLENNI[facility] Comment: Please note: ??Patients with WBC >100,000 may have falsely elevated Potassium levels. ??For accurate Potassium quantification in these patients send serum separator tube (gold top) for subsequent determinations. ??Contact the Clinical Chemistry Laboratory if there are any questions. Chloride 99 98 - 107 mmol/L [facility] MILLENNIUM CO2 28 22 - 31 mmol/L [facility] MILLENNI[facility] Anion Gap 10 5 - 15 mmol/L [facility] MILLENNI[facility] Anion Gap 10 5 - 15 mmol/L [facility]ILLENNI[facility] Calcium 7.9(L) 8.5 - 10.5 mg/dL [facility]ILLENNI[facility] Estimated [...] internet browser. http://www.nkdep.nih.gov/lab-evaluation.shtml http://www.kidney.org/professionals/ Blood specimen (specimen) 12/21/2012 3:40 PM EDT 12/21/2012 3:45 PM EDT Narrative Resulting Agency Comment Spec In Lab Ankit Ohara MD CHEMISTRY ORDERABLES [facility] * Vitamin B6 (12/21/2012 2:30 PM EDT) Pathologist [facility] Vitamin B6 6 5 - 50 mcg/L [facility] Comment: Test Performed by: [facility] [address], [place] [address] Channel Opener: Jennifer Ramirez, Ph.D. Blood specimen (specimen) 12/21/2012 2:30 PM EDT 12/23/2012 8:37 AM EDT Narrative Resulting Agency Comment Spec In Lab Ankit Ohara MD CHEMISTRY ORDERABLES [facility] * SCAN DOC: LAB (12/21/2012 1:54 PM EDT) Narrative 12/21/2012 1:54 PM EDT Procedure Note Provider, Scanning - 12/21/2012 1:54 PM EDT Scanning Provider MEDIA MGR SCAN EXT O RDR/RSLT * (ABNORMAL) Blood Gas Arterial (12/21/2012 1:40 PM EDT) Pathologist [facility] pH Art 7.52(H) 7.35 - 7.45 [facility]ILLENNI[facility] pCO2 Art 36 35 - 45 mmHg [facility]ILLEN[facility] pO2 Art 94 85 - 104 mmHg [facility]ILLEN[facility] HCO3 Art 29.0(H) 20.0 - 26.0 mmol/L [facility] BE Art 6.2(H) -3.0 - 3.0 mmol/L [facility]ILLEN[facility] Hgb Blood Gas 8.5(L) 11.2 - 15.7 gm/dL [facility] MILLENNIUM Comment: Total Hemoglobin (in gm/dL) ?Based on [facility] Hematology ranges: ?Age ?Reference Range Less than 3 days ?14.5 to 22.5 3 days to 2 weeks ? 12.5 to 20.5 2 weeks to 1 month ?10.0 to 18.0 1 to 6 months ?9.4 to 14.0 6 months to 2 years ? 10.5 to 13.5 2 to 6 years ?11.5 to 13.5 6 to 12 years ? 11.5 to 15.5 12 to 18 years (female) 12.0 to 16.0 ? (male) ?? 13.0 to 16.0 > 18 years ? (female) 11.2 to 15.7 ? (male) ?? 13.7 to 17.5 O2HB Art 96.4 94.0 - 97.0 % [facility]ILLEN[facility] COHB Art 1.3 % [facility] Comment: Nonsmokers: ??0.5-1.5% COHB Smokers: ??Variable, but usually less than 10% Toxic: 20 - 30% COHB Lethal: ??Greater than 60% COHB METHB Art 0.2 <=1.5 % [facility]ILL[facility] Na Whole Blood 134(L) 135 - 145 mmol/L [facility]ILLEN[facility] K Whole Blood 3.4(L) 3.5 - 5.0 mmol/L [facility]ILL[facility] Comment: Please note: ??Patients with WBC >100,000 may have falsely elevated Potassium levels. ??Contact the Clinical Chemistry Laboratory if there are any questions. ICa Whole Blood 1.02(L) 1.15 - 1.33 mmol/L [facility] Comment: Reference Ranges: ?? < 19 yrs: 1.22 - 1.37 mmol/L ? Adults: 1.15 - 1.33 mmol/L Note: ??Total bilirubin higher than 20 mg/dL may lead to falsely low ionized calcium. CL Whole Blood 98 98 - 107 mmol/L [facility]ILLEN[facility] Gluc Whole Bld 113 60 - 199 mg/dL [facility] Comment:Diabetes: >=200 mg/d L plus symptoms. Lactate WB 0.8 0.5 - 2.2 mmol/L [facility]ILLEN[facility] Blood specimen (specimen) 12/21/2012 1:40 PM EDT 12/21/2012 1:56 PM EDT Narrative Resulting Agency Comment Spec In Lab Ankit Ohara MD CHEMISTRY ORDERABLES Performing Organization Address [facility] Co de Phone Number BAR NOE * Green Tube HOLD (12/21/2012 1:40 PM EDT) [facility] Green Hold Sample in lab. BAR NOE Blood specimen (specimen) 12/21/2012 1:40 PM EDT 12/21/2012 1:48 PM EDT Ankit Ohara MD CHEMISTRY ORDERABLES Performing Organization Address [facility] de Phone Number [facility] * Vitamin B12 (12/21/2012 1:40 PM EDT) [facility] Vitamin B-12 498 207 - 974 pg/mL [facility] Blood specimen (specimen) 12/21/2012 1:40 PM EDT 12/21/2012 1:44 PM EDT Narrative Resulting Agency Comment Spec In Lab Ankit Ohara MD CHEMISTRY ORDERABLES Performing Organization Address [facility] de Phone Number [facility] * (ABNORMAL) Extractable Nuclear Antigen (JACKY) Ab (12/21/2012 1:40 PM EDT) [facility] JACKY Ab Test ?Result ?Flag ??Unit ??RefValue Ab to Extractable Nuclear Ag Eval,S ??SS-A/Ro Ab, IgG, S ?7.0 ?H ?U -- REFERENCE VALUE -- <1.0 (Negative) Interpretation: Positive (>=1.0) ??SS-B/La Ab, IgG, S ?1.5 ?H ?U -- REFERENCE VALUE -- <1.0 (Negative) Interpretation: Positive (>=1.0) ??Sm Ab, IgG, S ? <0.2 ?U -- REFERENCE VALUE -- <1.0 (Negative) ??ADMINISTRATIVE DIRECTOR Ab, IgG, S ?<0.2 ?U -- REFERENCE VALUE -- <1.0 (Negative) ??Scl 70 Ab, IgG, S ? <0.2 ?U -- REFERENCE VALUE -- <1.0 (Negative) ??Fozia 1 Ab, IgG, S ? <0.2 ?U -- REFERENCE VALUE -- <1.0 (Negative) Test Performed by: [employer] [address] Channel Opener: Jennifer Ramirez, Ph.D.(A) BAR NOE Blood specimen (specimen) 12/21/2012 1:40 PM EDT 12/23/2012 8:37 AM EDT Narrative Resulting Agency Comment Spec In Lab Ankit Ohara MD IMMUNOLOGY ORDERABLE S [facility] * (ABNORMAL) Ammonia (12/21/2012 1:40 PM EDT) Ammonia <10(L) 11 - 51 mcmol/L [facility] Blood specimen (specimen) 12/21/2012 1:40 PM EDT 12/21/2012 1:44 PM EDT Narrative Resulting Agency Comment Spec In Lab Ankit Ohara MD CHEMISTRY ORDERABLES [facility] * Blood culture (12/21/2012 9:21 AM EDT) Blood Culture ? Patient Name: ANUM HENRIQUEZ ?Ordered By: ANKIT OHARA ? MR#: [id number] ?LOC: ??1WST ? /Sex: ??1960 (52 years), ? Female ? PROCEDURE: Blood Culture ?SOURCE: Blood ? COLLECTED: 12/21/2012 09:21 ? BODY SITE: PICC Line ? STARTED: 12/21/2012 09:34 ?FREE TEXT SOURCE: R PICC line ? FINAL REPORT ? Final Report ? Verified:2012 15:10 ? No growth at 5 days. ? PRELIMINARY REPORT ? Preliminary Report ? Verified:2012 15:11 ? No growth at 4 days. ? [facility] Blood specimen (specimen) PERIPHERALLY INSERTED CENTRAL CATHETER / Unknown 12/21/2012 9:21 AM EDT 12/21/2012 9:34 AM EDT Narrative Resulting Agency Comment Spec In Lab Ankit Ohara MD MICROBIOLOGY - BLOOD ORDERABLES [facility] * (ABNORMAL) Differential, Manual (12/21/2012 6:50 AM EDT) Neutrophil % 91(H) 34 - 71 % [facility]ILLEN[facility] Band % 5 0 - 12 % [facility]ILLENNI[facility] Lymphocyte % 4(L) 19 - 53 % [facility]ILLENNIUM Neutrophil Abs 16.2(H) 1.5 - 6.3 x10(3)/mc L [facility]ILLENNI[facility] Band Abs 0.9(H) 0.2 - 0.6 x10(3)/mc L [facility]ILLENNI[facility] Neutr Abs (ANC) 17.07(H) 1.50 - 6.30 x10(3)/mc L [facility]ILL[facility] Lymphocyte Abs 0.7(L) 1.0 - 3.6 x10(3)/mc L [facility] MILLENNIUM Tot Diff Cell Ct 100 CER NER MILLENNIUM Plat Estimate Normal [facility] MILLENNIUM RBC Morphology Abnormal CERNE R MILLENNIUM Schistocytes 1-5 /HPF [facility] MILLENNIUM Blood specimen (specimen) 12/21/2012 6:50 AM EDT 12/21/2012 7:14 AM EDT Narrative Resulting Agency Comment Spec In Lab Luis E Trotter MD HEMATOLOGY ORDERABLE S [facility] * Phosphorus (12/21/2012 6:50 AM EDT) Phosphorus 4.1 2.5 - 4.5 mg/dL [facility] Blood specimen (specimen) 12/21/2012 6:50 AM EDT 12/21/2012 7:14 AM EDT Narrative Resulting Agency Comment Spec In Lab Faib Bliss MD CHEMISTRY ORDERA BLES [facility] * (ABNORMAL) Magnesium (12/21/2012 6:50 AM EDT) Magnesium 0.66(L) 0.69 - 1.07 mmol/L [facility] Blood specimen (specimen) 12/21/2012 6:50 AM EDT 12/21/2012 7:14 AM EDT Narrative Resulting Agency Comment Spec In Lab Fabi Bliss MD CHEMISTRY ORDERA BLES Performing Organization Address [facility] Co de Phone Number [facility] * (ABNORMAL) Lactate Dehydrogenase (12/21/2012 6:50 AM EDT) LDH 237(H) 110 - 220 unit/L [facility]ILLENNI[facility] Blood specimen (specimen) 12/21/2012 6:50 AM EDT 12/21/2012 7:14 AM EDT Narrative Resulting Agency Comment Spec In Lab Fabi Bliss MD CHEMISTRY ORDERA BLES Performing Organization Address [facility] Phone Number [facility] * (ABNORMAL) Basic Metabolic Panel (non-fasting) (12/21/2012 6:50 AM EDT) Glucose Lvl 102 60 - 199 mg/dL [facility] Comment:Diabetes: >=200 mg/d L plus symptoms BUN 33(H) 8 - 18 mg/dL [facility] Creatinine 2.29(H) 0.70 - 1.20 mg/dL [facility] Comment: Please note that the pediatric reference intervals supplied above were not validated at [facility]. Results from pediatric patients should be interpreted in conjunction to the patient's age, height and muscle mass. Sodium 137 135 - 145 mmol/L [facility]ILL[facility] Potassium 3.1(L) 3.5 - 5.0 mmol/L [facility] Comment: Please note: ??Patients with WBC >100,000 may have falsely elevated Potassium levels. ??For accurate Potassium quantification in these patients send serum separator tube (gold top) for subsequent determinations. ??Contact the Clinical Chemistry Laboratory if there are any questions. Chloride 97(L) 98 - 107 mmol/L [facility]ILLENNI[facility] CO2 27 22 - 31 mmol/L [facility]ILLEN[facility] Anion Gap 13 5 - 15 mmol/L [facility]ILLEN[facility] Calcium 7.9(L) 8.5 - 10.5 mg/dL [facility]ILLEN[facility] Estimated [...] internet browser. http://www.nkdep.nih.gov/lab-evaluation.shtml http://www.kidney.org/professionals/ Blood specimen (specimen) 12/21/2012 6:50 AM EDT 12/21/2012 7:14 AM EDT Narrative Resulting Agency Comment Spec In Lab Luis E Trotter MD CHEMISTRY ORDERABLES [facility] * (ABNORMAL) CBC (with Diff) (12/21/2012 6:50 AM EDT) WBC 17.8(H) 4.0 - 10.0 x10(3)/mcL [facility] RBC 2.49(L) 3.93 - 5.22 x10(6)/mcL [facility] Hemoglobin 7.7(L) 11.2 - 15.7 gm/dL [facility] Hematocrit 22.4(L) 34.0 - 45.0 % [facility]ILLENNI[facility] MCV 90.0 79.0 - 94.0 fL [facility]ILL[facility]NI[facility] MCH 30.9 26.6 - 32.2 pg C[facility]ER MILLENNIUM MCHC 34.4 32.0 - 36.5 gm/dL [facility] Platelets 158 145 - 370 x10(3)/mcL [facility] RDWSD 46.5(H) 35.0 - 46.0 fL [facility]ILLENNI[facility] RDWCV 14.7(H) 10.9 - 14.4 % [facility] NOE MPV 10.8 9.0 - 12.0 fL [facility] Blood specimen (specimen) 12/21/2012 6:50 AM EDT 12/21/2012 7:14 AM EDT Narrative Resulting Agency Comment Spec In Lab Luis E Trotter MD HEMATOLOGY ORDERABLE S Performing Organization Address [facility]/ZIP Co de Phone Number [facility] * Transfuse RBC (12/21/2012 6:15 AM EDT) Ankit Ohara MD NURSING TREATMENT OR DERABLES - BLOOD ADMIN * Prepare RBC (12/21/2012 12:55 AM EDT) Dispensed? Yes BAR NOE Blood specimen (specimen) 12/21/2012 12:55 AM EDT 12/21/2012 12:53 AM EDT Ankit Ohara MD BLOOD BANK PRODUCT O RDERABLES Performing Organization Address [facility] Co de Phone Number [facility] * Transfusion Reaction Interp (12/20/2012 6:28 PM EDT) Trans RXN Interp INTERPRETATION: Transfusion associated circulatory overload. The patient is approved to receive future transfusions. Please refer to the clinical note for a complete summary of this transfusion reaction. Jaleel Reynoso MD Transfusion Medicine Service 02/19/13 11:29 [facility] Comment: Jaleel Reynoso, Pathologist Verified:02/19/13 Blood specimen (specimen) 12/20/2012 6:28 PM EDT 12/20/2012 6:28 PM EDT Narrative Resulting Agency Comment Spec In Lab Ankit Ohara MD BLOOD BANK LAB ORDER VIKAS Performing Organization Address [facility] [facility] Co de Phone Number [facility] * Blood culture (12/20/2012 5:00 PM EDT) Blood Culture ? Patient Name: KAREEM, ANUM N ?Ordered By: ANKIT OHARA ? MR#: [id number] ?LOC: ??1WST ? /Sex: ??1960 (52 years), ? Female ? PROCEDURE: Blood Culture ?SOURCE: Blood ? COLLECTED: 12/20/2012 17:00 ?FREE TEXT SOURCE: L ARM ? STARTED: 12/20/2012 17:14 ? STAINS / PREPARATIONS ? Bottle Gram Stain ? Verified:12/21/2012 12:09 ? Growth detected in anaerobic bottle. ? Gram Positive Cocci in clusters seen ? Bottle Gram Stain ? Verified:12/21/2012 07:29 ? Growth detected in aerobic bottle. ? Gram Positive Cocci in clusters seen ? Results called to and read back by Dr. Cervantes ??12/21/2012 07:29:12 ? FINAL REPORT ? Final Report ? Verified:12/23/2012 08:30 ? Staphylococcus aureus, MRSA isolated ? Susceptibilities previously reported ? PRELIMINARY REPORT ? Preliminary Report ? Verified:12/22/2012 08:30 ? Staphylococcus aureus, MRSA isolated ? CERNER MILLENNIUM Blood specimen (specimen) 12/20/2012 5:00 PM EDT 12/20/2012 5:14 PM EDT Narrative Resulting Agency Comment Spec In Lab Ankit Ohara MD MICROBIOLOGY - BLOOD ORDERABLES BAR NOE * Urine culture Clean Catch Urine (12/20/2012 4:49 PM EDT) Urine Culture ? Patient Name: ANUM HENRIQUEZ ?Ordered By: ANKIT OHARA ? MR#: [id number] ?LOC: ??1WST ? /Sex: ??1960 (52 years), ? Female ? PROCEDURE: Urine Culture ?SOURCE: [facility] ? COLLECTED: 12/20/2012 16:49 ? STARTED: 12/20/2012 17:07 ? FINAL REPORT ? Final Report ? Verified:12/23/19 13 08:10 ? Greater than 100,000 cfu/ml Staphylococcus aureus, MRSA ? PRELIMINARY REPORT ? Preliminary Report ? Verified:12/22/19 13 12:39 ? Greater than 100,000 cfu/ml Staphylococcus aureus ? SUSCEPTIBILITY RESULTS ? Staphylococcus aureus, MRSA ? RENY Interp ? Ampicillin ?R ? Cefazolin ? R ? Ceftriaxone ? R ? Ciprofloxacin ? R ? Gentamicin(1) ? S ? Levofloxacin ?R ? Nitrofurantoin ?S ? Oxacillin(2) ?R ? Penicillin ?R ? Trimethoprim/Sulf a ?S ? Tetracycline ?S ? Vancomycin ?S ? Patient: ANUM HENRIQUEZ ? MR#: [id number] ? FOOTNOTES ? (1) ? Gentamicin is not appropriate for Story-therapy. ? (2) ? MRSA, Note Nafcillin Resistance ? BAR NOE Urine specimen obtained via indwelling urinary catheter (specimen) 12/20/2012 4:49 PM EDT 12/20/2012 5:07 PM EDT Narrative Resulting Agency Comment Spec In Lab Ankit Ohara MD MICROBIOLOGY - GENER AL ORDERABLES CERNER MILLENNIUM * (ABNORMAL) pro-Brain Natriuretic Peptide (12/20/2012 4:10 PM EDT) ProBNP 2411(H) <=125 pg/mL [facility] MILLENNIUM Blood specimen (specimen) 12/20/2012 4:10 PM EDT 12/20/2012 4:16 PM EDT Narrative Resulting Agency Comment Spec In Lab Ankit Ohara MD CHEMISTRY ORDERABLES Performing Organization Address [facility] Co de Phone Number [facility] * (ABNORMAL) Urinalysis with microscopic (12/20/2012 3:55 PM EDT) Glucose UA Negative Negative mg/dL [facility] Protein UA 100(A) Neg mg/dL [facility] MILLENNIUM Bilirubin UA Negative Negative mg/dL [facility] MILLENNIUM Urobilinogen UA Normal CERN ER MILLENNIUM pH UA 6.0 5.0 - 8.0 [facility] MILLENNIUM Blood UA Moderate CERNER MILLENNIUM Ketones UA Trace(A) Neg mg/dL [facility] MILLENNIUM Nitrite UA Negative CERNER MILLENNIUM Leukocytes UA Negative CERNER MILLENNIUM Appearance UA Clear Clear [facility] MILLENNIUM Spec [place] UA 1.007 1.002 - 1.030 CERNER MILLENNIUM Color UA Light Yellow Yellow [facility] MILLENNIUM RBC UA 8(H) 0 - 4 /HPF CERNER MILLENNIUM WBC UA 6(H) 0 - 5 /HPF [facility] MILLENNIUM Gran Cast UA 2(H) <=0 /LPF [facility] MILLENNIUM Urine specimen (specimen) 12/20/2012 3:55 PM EDT 12/20/2012 4:55 PM EDT Narrative Resulting Agency Comment Spec In Lab Ankit Ohara MD URINE ORDERABLES Performing Organization Address [facility] Co de Phone Number [facility] MIRIAMIUM * Blood culture (12/20/2012 3:40 PM EDT) Blood Culture ? Patient Name: ANUM HENRIQUEZ Eliza ?Ordered By: ANKIT OHARA ? MR#: [id number] ?LOC: ??1WST ? /Sex: ??1960 (52 years), ? Female ? PROCEDURE: Blood Culture ?SOURCE: Blood ? COLLECTED: 12/20/2012 15:40 ? STARTED: 12/20/2012 16:07 ? STAINS / PREPARATIONS ? Bottle Gram Stain ? Verified:12/22/19 13 10:07 ? Growth detected in anaerobic bottle. ? Gram Positive Cocci in clusters seen ? Bottle Gram Stain ? Verified:12/22/19 07:29 ? Growth detected in aerobic bottle. ? Gram Positive Cocci in clusters seen ? Results called to and read back by Dr. Cervantes ??12/21/2012 07:28:58 ? FINAL REPORT ? Final Report ? Verified:12/24/19 13 08:30 ? Staphylococcus aureus, MRSA isolated ? Isolate saved. If future testing is required, contact the Microbiology ? Economic Development Specialist. ? PRELIMINARY REPORT ? Preliminary Report ? Verified:12/23/19 13 08:30 ? Staphylococcus aureus, MRSA isolated ? Patient: ANUM HENRIQUEZ ? MR#: [id number] ? SUSCEPTIBILITY RESULTS ? Staphylococcus aureus, MRSA ? RENY mcg/mL ?? RENY Interp ? Ampicillin ? R ? Cefazolin ?R ? Ceftriaxone ?R ? Ciprofloxacin ?R ? Clindamycin ?R ? Erythromycin ? R ? Gentamicin(1) ?S ? Levofloxacin ? R ? Meropenem ?R ? Oxacillin(2) ? R ? Penicillin ? R ? Trimethoprim/Sulf a ? S ? Tetracycline ? S ? Vancomycin ?1 ?S ? FOOTNOTES ? (1) ? Gentamicin is not appropriate for Story-therapy. ? (2) ? MRSA, Note Nafcillin Resistance ? BAR NOE Blood specimen (specimen) 12/20/2012 3:40 PM EDT 12/20/2012 4:07 PM EDT Narrative Resulting Agency Comment Spec In Lab Ankit Ohara MD MICROBIOLOGY - BLOOD ORDERABLES BAR NOE * XR chest PA or AP- 1 view (12/20/2012 2:30 PM EDT) Anatomical Region Laterality Modality Chest N/A Radiographic Oanh ging 12/20/2012 2:30 PM EDT Narrative 12/23/2012 1:15 PM EDT Examination CHEST AP/XPORT Clinical History new dyspnea, new tubular sounds LLL, known TTP-HUS, known b/l distal non-occlusive DVTs, recent plasma exchange. ?evidence of PNA, trasnfusion related process, PE, pneumothorax? Comparison Will PA and lateral radiographs 12/17. Technique AP portable. Findings There is an increase in the size of the bilateral opacities. The patients positioning makes it difficult to infer if there is actual change in the size of the effusions. Pulmonary markings appear unchanged. No pneumothorax. No osseous abnormalities. PICC line and right IJ [place] positioning appear unchanged. Impression Increase in bilateral pulmonary opacities, however unable to determine if effusions increased in size due to differences in study. Lateral film recommended if there is clinical concern. Film and interpretation reviewed by the attending Procedure Note Amilcar Bonner MD - 12/23/2012 Examination CHEST AP/XPORT Clinical History new dyspnea, new tubular sounds LLL, known TTP-HUS, known b/l distal non-occlusive DVTs, recent plasma exchange. ?evidence of PNA, trasnfusion related process, PE, pneumothorax? Comparison Will PA and lateral radiographs 12/17. Technique AP portable. Findings There is an increase in the size of the bilateral opacities. The patients positioning makes it difficult to infer if there is actual change in thesize of the effusions. Pulmonary markings appear unchanged. No pneumothorax. No osseous abnormalities. PICC line and right IJ [place] positioning appear unchanged. Impression Increase in bilateral pulmonary opacities, however unable to determine if effusions increased in size due to differences in study. Lateral film recommended if there is clinical concern. Film and interpretation reviewed by the attending Ankit Ohara MD IMG DX ORDERABLES * EKG 12 Lead (12/20/2012 2:21 PM EDT) Ventricular rate 83 BPM MUSE SYSTEM Atrial Rate 83 BPM MUSE SYSTEM P-R Interval 114 ms MUSE SYSTEM QRS Duration 70 ms MUSE SYSTEM Q-T Interval 346 ms MUSE SYSTEM QTC Calculated (Bezet) 406 ms MUSE SYSTEM Calculated P [place] 58 degrees MUSE SYSTEM Calculated R [place] 32 degrees MUSE SYSTEM Calculated T [place] 24 degrees MUSE SYSTEM INTERPRETATION Normal sinus rhythm Nonspecific T wave abnormality Abnormal ECG No previous ECGs available Confirmed by MD CEASAR, EDWARD ([id number]) on 12/21/2012 7:30:22 AM MUSE SYSTEM 12/20/2012 2:21 PM EDT 12/21/2012 7:30 AM EDT Ankit Ohara MD ECG ORDERABLES MUSE SYSTEM * (ABNORMAL) Magnesium (12/20/2012 1:55 PM EDT) Magnesium 0.66(L) 0.69 - 1.07 mmol/L BAR PINEDAIUM Blood specimen (specimen) 12/20/2012 1:55 PM EDT 12/20/2012 2:11 PM EDT Narrative Resulting Agency Comment Spec In Lab Ankit Ohara MD CHEMISTRY ORDERABLES CERNER ISRRAELENNIUM * Scan, Peripheral Blood (12/20/2012 1:55 PM EDT) Plat Estimate Normal CERNER MILLENNIUM RBC Morphology Abnormal CERNE R MILLENNIUM Microcytes 1-5 /HPF CERNER MILLENNIUM Schistocytes 1-5 /HPF CERNER MILLENNIUM Blood specimen (specimen) 12/20/2012 1:55 PM EDT 12/20/2012 2:03 PM EDT Narrative Resulting Agency Comment Spec In Lab Ankit Ohara MD HEMATOLOGY ORDERABLE S CERNER MILLENNIUM * (ABNORMAL) Differential, Automated (12/20/2012 1:55 PM EDT) Neutrophils % 88.7(H) 34.0 - 71.0 % CERNER MILLENNIUM Neutr Abs (ANC) 10.97(H) 1.50 - 6.30 x10(3)/mc L CERNER MILLENNIUM Lymphocytes % 3.2(L) 19.0 - 53.0 % CERNER MILLENNIUM Lymphocytes Abs 0.4(L) 1.0 - 3.6 x10(3)/mc L CERNER MILLENNIUM Monocytes % 6.9 4.0 - 13.0 % CERNER MILLENNIUM Monocyte Abs 0.9 0.2 - 1.0 x10(3)/mc L CERNER MILLENNIUM Eosinophils % 1.0 0.0 - 7.0 % CERNER MILLENNIUM Eosinophils Abs 0.1 0.0 - 0.5 x10(3)/mc L CERNER MILLENNIUM Basophils % 0.0 0.0 - 2.0 % CERNER MILLENNIUM Basophils [...] differential will be performed. Petty Gran Abs 0.03 0.00 - 0.05 x10(3)/mc L CERNER MILLENNIUM Blood specimen (specimen) 12/20/2012 1:55 PM EDT 12/20/2012 2:03 PM EDT Ankit Ohara MD HEMATOLOGY ORDERABLE S Performing Organization Address [facility] Co de Phone Number [facility] ManifactIUM * (ABNORMAL) APTT (12/20/2012 1:55 PM EDT) PTT 41(H) 25 - 35 sec [facility] MILLENNIUM Comment: Recommended therapeutic PTT range for full dose unfractionated heparin is 80-114 seconds. Blood specimen (specimen) 12/20/2012 1:55 PM EDT 12/20/2012 2:03 PM EDT Narrative Resulting Agency Comment Spec In Lab Ankit Ohara MD HEMATOLOGY ORDERABLE S Performing Organization Address [facility] de Phone Number [facility] [place] Social * (ABNORMAL) Prothrombin Time (12/20/2012 1:55 PM EDT) PT 17.1(H) 12.0 - 15.0 sec [facility] Breath of LifeENNIUM Comment: [facility] Transfusion Committee Guidelines: INR less than 2.0, PTT less than OR equal to 43.5 seconds, or Fibrinogen greater than or equal to 100 mg/dl indicate adequate procoagulant activity for hemostasis in patients without underlying bleeding disorders. INR 1.4(H) 0.9 - 1.1 [facility] Breath of LifeENNIUM Blood specimen (specimen) 12/20/2012 1:55 PM EDT 12/20/2012 2:03 PM EDT Narrative Resulting Agency Comment Spec In Lab Ankit Ohara MD HEMATOLOGY ORDERABLE S Performing Organization Address [facility] de Phone Number [facility] [place] Social * (ABNORMAL) CBC (with Diff) (12/20/2012 1:55 PM EDT) Pathologist [facility] WBC 12.4(H) 4.0 - 10.0 x10(3)/mcL CERNER MILLENNIUM RBC 2.43(L) 3.93 - 5.22 x10(6)/mcL CERNER MILLENNIUM Hemoglobin 7.1(L) 11.2 - 15.7 gm/dL CERNER MILLENNIUM Hematocrit 21.4(L) 34.0 - 45.0 % CERNER MILLENNIUM MCV 88.1 79.0 - 94.0 fL CERNER MILLENNIUM MCH 29.2 26.6 - 32.2 pg CERNER MILLENNIUM MCHC 33.2 32.0 - 36.5 gm/dL CERNER MILLENNIUM Platelets 138(L) 145 - 370 x10(3)/mcL CERNER MILLENNIUM RDWSD 43.9 35.0 - 46.0 fL CERNER MILLENNIUM RDWCV 14.5(H) 10.9 - 14.4 % CERNER MILLENNIUM MPV 10.2 9.0 - 12.0 fL CERNER MILLENNIUM Blood specimen (specimen) 12/20/2012 1:55 PM EDT 12/20/2012 2:03 PM EDT Narrative Resulting Agency Comment Spec In Lab Ankit Ohara MD HEMATOLOGY ORDERABLE S [facility] * (ABNORMAL) Basic Metabolic Panel (non-fasting) (12/20/2012 1:55 PM EDT) Pathologist [facility] Glucose Lvl 103 60 - 199 mg/dL CERNER MILLENNIUM Comment:Diabetes: >=200 mg/d L plus symptoms BUN 34(H) 8 - 18 mg/dL CERNER MILLENNIUM Creatinine 1.86(H) 0.70 - 1.20 mg/dL CERNER MILLENNIUM Comment: Please note that the pediatric reference intervals supplied above were not validated at [facility] Results from pediatric patients should be interpreted in conjunction to the patient's age, height and muscle mass. Sodium 139 135 - 145 mmol/L CERNER MILLENNIUM Potassium 3.9 3.5 - 5.0 mmol/L CERNER MILLENNIUM Comment: [...] 5 - 15 mmol/L CERNER MILLENNIUM Calcium 8.2(L) 8.5 - 10.5 mg/dL CERNER MILLENNIUM Estimated GFR 28(L) >=60 [...] internet browser. http://www.nkdep.nih.gov/lab-evaluation.shtml http://www.kidney.org/professionals/ Blood specimen (specimen) 12/20/2012 1:55 PM EDT 12/20/2012 2:03 PM EDT Narrative Resulting Agency Comment Spec In Lab Ankit Ohara MD CHEMISTRY ORDERABLES BAR ARCOSENNIUM * Antibody screen (12/20/2012 12:20 PM EDT) Ab Screen Interp Negative CERNER MILLENNIUM Expires at [id number] on: [id number] CERNER MILLENNIUM Blood specimen (specimen) 12/20/2012 12:20 PM EDT 12/20/2012 12:33 PM EDT Narrative Resulting Agency Comment Spec In Lab Ankit Ohara MD BLOOD BANK LAB ORDER VIKAS CERELIO PINEDAIUM * ABO/Rh Typing (12/20/2012 12:20 PM EDT) ABORH Type AB Pos BAR NOE Blood specimen (specimen) 12/20/2012 12:20 PM EDT 12/20/2012 12:33 PM EDT Narrative Resulting Agency Comment Spec In Lab Ankit Ohara MD BLOOD BANK LAB ORDER VIKAS Performing Organization Address [facility] Co de Phone Number BAR [facility] * (ABNORMAL) H. pylori Antibody, IgG (12/20/2012 12:20 PM EDT) H pylori Ab Pos(A) Neg [facility] Blood specimen (specimen) 12/20/2012 12:20 PM EDT 12/21/2012 2:03 PM EDT Narrative Resulting Agency Comment Spec In Lab Ankit Ohara MD IMMUNOLOGY ORDERABLE S Performing Organization Address [facility] de Phone Number BAR NOE * Prepare RBC (12/20/2012 9:45 AM EDT) Dispensed? Yes BAR NOE Blood specimen (specimen) 12/20/2012 9:45 AM EDT 12/20/2012 9:43 AM EDT Ankit Ohara MD BLOOD BANK PRODUCT O RDERABLES Performing Organization Address [facility] Co de Phone Number BAR NOE * SCAN DOC: LAB (12/20/2012 9:17 AM EDT) Narrative 12/20/2012 9:17 AM EDT Procedure Note Provider, Scanning - 12/20/2012 9:17 AM EDT Scanning Provider MEDIA MGR SCAN EXT O RDR/RSLT * (ABNORMAL) Differential, Automated (12/20/2012 4:50 AM EDT) Neutrophils % 82.9(H) 34.0 - 71.0 % CERNER MILLENNIUM Neutr Abs (ANC) 8.24(H) 1.50 - 6.30 x10(3)/mc L CERNER MILLENNIUM Lymphocytes % 7.7(L) 19.0 - 53.0 % CERNER MILLENNIUM Lymphocytes Abs 0.8(L) 1.0 - 3.6 x10(3)/mc L CERNER MILLENNIUM Monocytes % 6.1 4.0 - 13.0 % CERNER MILLENNIUM Monocyte Abs 0.6 0.2 - 1.0 x10(3)/mc L CERNER MILLENNIUM Eosinophils % 2.7 0.0 - 7.0 % CERNER MILLENNIUM Eosinophils Abs 0.3 0.0 - 0.5 x10(3)/mc L CERNER MILLENNIUM Basophils % 0.1 0.0 - 2.0 % CERNER MILLENNIUM Basophils Abs 0.0 0.0 - 0.2 x10(3)/mc L CERNER MILLENNIUM Immature Gran % 0.50 0.00 - 0.66 % CERNER MILLENNIUM Comment: Immature granulocytes(IG's)percentage and absolute count will include metamyelocytes, myelocytes, and promyelocytes. Blood smears from CBCs yielding IG's will be scanned manually for concordance. If this scan disagrees with the automated IG or if promyelocytes are noted, a manual differential will be performed. Petty Gran Abs 0.05 0.00 - 0.05 x10(3)/mc L CERNER MILLENNIUM Blood specimen (specimen) 12/20/2012 4:50 AM EDT 12/20/2012 5:08 AM EDT Luis E Trotter MD HEMATOLOGY ORDERABLE S CERNER MILLENNIUM * (ABNORMAL) Phosphorus (12/20/2012 4:50 AM EDT) Phosphorus 4.9(H) 2.5 - 4.5 mg/dL CERNER MILLENNIUM Blood specimen (specimen) 12/20/2012 4:50 AM EDT 12/20/2012 5:08 AM EDT Narrative Resulting Agency Comment Spec In Lab Fabi Bliss MD CHEMISTRY ORDERA BLERenuka Performing Organization Address [facility] Co de Phone Number BAR PINEDAIUM * Magnesium (12/20/2012 4:50 AM EDT) Magnesium 0.71 0.69 - 1.07 mmol/L CERNER MILLENNIUM Blood specimen (specimen) 12/20/2012 4:50 AM EDT 12/20/2012 5:08 AM EDT Narrative Resulting Agency Comment Spec In Lab aFbi Bliss MD CHEMISTRY ORDERA BLES Performing Organization Address [facility] de Phone Number CERELIO PINEDAIUM * Lactate Dehydrogenase (12/20/2012 4:50 AM EDT) LDH 220 110 - 220 unit/L CERNER MILLENNIUM Blood specimen (specimen) 12/20/2012 4:50 AM EDT 12/20/2012 5:08 AM EDT Narrative Resulting Agency Comment Spec In Lab Fabi Bliss MD CHEMISTRY ORDERA BLES Performing Organization Address [facility] de Phone Number CERELIO PINEDAIUM * (ABNORMAL) Basic Metabolic Panel (non-fasting) (12/20/2012 4:50 AM EDT) Glucose Lvl 104 60 - 199 mg/dL CERNER MILLENNIUM Comment:Diabetes: >=200 mg/d L plus symptoms BUN 38(H) 8 - 18 mg/dL CERNER MILLENNIUM Creatinine 2.11(H) 0.70 - 1.20 mg/dL CERNER MILLENNIUM Comment: Please note that the pediatric reference intervals supplied above were not validated [place] [facility] Results from pediatric patients should be interpreted in conjunction to the patient's age, height and muscle mass. Sodium 140 135 - 145 mmol/L CERNER MILLENNIUM Potassium 3.5 3.5 - 5.0 mmol/L CERNER MILLENNIUM Comment: Please note: ??Patients with WBC >100,000 may have falsely elevated Potassium levels. ??For accurate Potassium quantification in these patients send serum separator tube (gold top) for subsequent determinations. ??Contact the Clinical Chemistry Laboratory if there are any questions. Chloride 100 98 - 107 mmol/L CERNER MILLENNIUM CO2 32(H) 22 - 31 mmol/L CERNER MILLENNIUM Anion Gap 8 5 - 15 mmol/L CERNER MILLENNIUM Calcium 7.8(L) 8.5 - 10.5 mg/dL CERNER MILLENNIUM Estimated [...] internet browser. http://www.nkdep.nih.gov/lab-evaluation.shtml http://www.kidney.org/professionals/ Blood specimen (specimen) 12/20/2012 4:50 AM EDT 12/20/2012 5:08 AM EDT Narrative Resulting Agency Comment Spec In Lab Luis E Trotter MD CHEMISTRY ORDERABLES CERELIO ARCOSENNIUM * (ABNORMAL) CBC (with Diff) (12/20/2012 4:50 AM EDT) WBC 10.0 4.0 - 10.0 x10(3)/mcL CERNER MILLENNIUM RBC 2.40(L) 3.93 - 5.22 x10(6)/mcL CERNER MILLENNIUM Hemoglobin 7.1(L) 11.2 - 15.7 gm/dL CERNER MILLENNIUM Hematocrit 21.4(L) 34.0 - 45.0 % CERNER MILLENNIUM MCV 89.2 79.0 - 94.0 fL CERNER MILLENNIUM MCH 29.6 26.6 - 32.2 pg CERNER MILLENNIUM MCHC 33.2 32.0 - 36.5 gm/dL CERNER MILLENNIUM Platelets 139(L) 145 - 370 x10(3)/mcL CERNER MILLENNIUM RDWSD 44.3 35.0 - 46.0 fL CERNER MILLENNIUM RDWCV 14.6(H) 10.9 - 14.4 % CERNER MILLENNIUM MPV 10.7 9.0 - 12.0 fL CERNER MILLENNIUM Blood specimen (specimen) 12/20/2012 4:50 AM EDT 12/20/2012 5:08 AM EDT Narrative Resulting Agency Comment Spec In Lab Luis E Trotter MD HEMATOLOGY ORDERABLE S Performing Organization Address [facility] Co de Phone Number BAR PINEDAIUM * (ABNORMAL) Fibrinogen (12/20/2012 4:50 AM EDT) Fibrinogen 170(L) 175 - 450 mg/dL BAR PINEDAIUM Blood specimen (specimen) 12/20/2012 4:50 AM EDT 12/20/2012 5:08 AM EDT Narrative Resulting Agency Comment Spec In Lab Jaleel Reynoso MD HEMATOLOGY ORDERABLE S Performing Organization Address [facility] Co de Phone Number BAR PINEDAIUM * Duplex Study for DVT, Bilat legs (12/19/2012 10:03 AM EDT) VB Text Report Department: Vascular Surgery Lab Patient: [id number] (ANUM HENRIQUEZ) CPT Code: 75469 ICD-9: 451.19 Referring Physician: ANKIT OHARA Indication: ??bilateral lower extremity swelling and tenderness; per patient - no history of DVT ICD9 Diagnosis Code: 451.19 RIGHT: Non occlusive thrombus in one of the peroneal veins through the mid calf. Patent common femoral vein and popliteal vein with spontaneous, respirophasic Doppler waveforms that respond normally to augmentation maneuvers. The common femoral vein, saphenofemoral junction, femoral vein through the thigh and popliteal vein are fully compressible. Patent posterior tibial veins with no evidence of thrombus. LEFT: Focal non occlusive thrombus in one of the posterior tibial veins in the mid calf. Patent common femoral vein and popliteal vein with spontaneous, respirophasic Doppler waveforms that respond normally to augmentation maneuvers. The common femoral vein, saphenofemoral junction, femoral vein through the thigh and popliteal vein are fully compressible. Patent peroneal veins with no evidence of thrombus. Interpretation: RIGHT: Non occlusive thrombus in one of the peroneal veins through the mid calf. No evidence of femoral to popliteal deep venous thrombosis. LEFT: Focal non occlusive thrombus in one of the posterior tibial veins in the mid calf. No evidence of femoral to popliteal deep venous thrombosis. Comparison: ??No previous study in our vascular lab database for comparison. Electronically Signed by: SAMMY PAIGE M.D. on 2012-12-22 10:02:45 AM [facility] VB Text Report End of Report [facility] 12/19/2012 10:0 3 AM EDT Ankit Ohara MD VASCULAR ORDERABLES Performing Organization Address [place]/[facility] Co de Phone Number [facility] * Fibrinogen (12/19/2012 7:40 AM EDT) Fibrinogen 214 175 - 450 mg/dL [facility] Blood specimen (specimen) 12/19/2012 7:40 AM EDT 12/19/2012 7:51 AM EDT Narrative Resulting Agency Comment Spec In Lab Jaleel Reynoso MD HEMATOLOGY ORDERABLE S Performing Organization Address [facility] Co de Phone Number [facility] * T4 (12/19/2012 3:20 AM EDT) T4, total 5.7 5.1 - 10.8 mcg/dL [facility] Comment: Reference Range: Cord Blood: ??6.9-14.4 mcg/dL Females: ??7.2-14.2 mcg/dL Pediatric ranges: ??Interpret with caution-ranges have not been verified Blood specimen (specimen) 12/19/2012 3:20 AM EDT 12/19/2012 6:09 AM EDT Narrative Resulting Agency Comment Spec In Lab Luis E Trotter MD CHEMISTRY ORDERABLES Performing Organization Address City/[facility]/ZIP Co de Phone Number [facility] * T Uptake (12/19/2012 3:20 AM EDT) [facility] T Uptake 1.03 0.80 - 1.30 ratio [facility] Comment: Tup assay is directly proportional to Thyroid binding protein concentration, thus FT4 Index = TT4/Tup. Wing Cord Blood Reference Range: ??0.74-1.28. Blood specimen (specimen) 12/19/2012 3:20 AM EDT 12/19/2012 3:54 AM EDT Narrative Resulting Agency Comment Spec In Lab Luis E Trotter MD CHEMISTRY ORDERABLES Performing Organization Address [facility] Co de Phone Number [facility] * T4, free (12/19/2012 3:20 AM EDT) [facility] Free T4 1.05 0.90 - 1.60 ng/dL [facility] Blood specimen (specimen) 12/19/2012 3:20 AM EDT 12/19/2012 3:54 AM EDT Narrative Resulting Agency Comment Spec In Lab Luis E Trotter MD CHEMISTRY ORDERABLES Performing Organization Address [facility] [facility] de Phone Number [facility] * (ABNORMAL) T3 (12/19/2012 3:20 AM EDT) [facility] T3, Total 58(L) 75 - 170 ng/dL [facility] Blood specimen (specimen) 12/19/2012 3:20 AM EDT 12/19/2012 3:54 AM EDT Narrative Resulting Agency Comment Spec In Lab Luis E Trotter MD CHEMISTRY ORDERABLES Performing Organization Address [facility] Co de Phone Number [facility] * (ABNORMAL) Differential, Automated (12/19/2012 3:20 AM EDT) [facility] Neutrophils % 81.2(H) 34.0 - 71.0 % CERNER MILLENNIUM Neutr Abs (ANC) 7.21(H) 1.50 - 6.30 x10(3)/mc L CERNER MILLENNIUM Lymphocytes % 9.9(L) 19.0 - 53.0 % CERNER MILLENNIUM Lymphocytes Abs 0.9(L) 1.0 - 3.6 x10(3)/mc L CERNER MILLENNIUM Monocytes % 4.7 4.0 - 13.0 % CERNER MILLENNIUM Monocyte Abs 0.4 0.2 - 1.0 x10(3)/mc L CERNER MILLENNIUM Eosinophils % 3.3 0.0 - 7.0 % CERNER MILLENNIUM Eosinophils Abs 0.3 0.0 - 0.5 x10(3)/mc L CERNER MILLENNIUM Basophils % 0.1 0.0 - 2.0 % CERNER MILLENNIUM Basophils Abs 0.0 0.0 - 0.2 x10(3)/mc L CERNER MILLENNIUM Immature Gran % 0.80(H) 0.00 - 0.66 % CERNER MILLENNIUM Comment: Immature granulocytes(IG's)percentage and absolute count will include metamyelocytes, myelocytes, and promyelocytes. Blood smears from CBCs yielding IG's will be scanned manually for concordance. If this scan disagrees with the automated IG or if promyelocytes are noted, a manual differential will be performed. Petty Gran Abs 0.07(H) 0.00 - 0.05 x10(3)/mc L CERNER MILLENNIUM Blood specimen (specimen) 12/19/2012 3:20 AM EDT 12/19/2012 3:40 AM EDT Luis E Trotter MD HEMATOLOGY ORDERABLE S BAR PIN[facility]AIUM * (ABNORMAL) Phosphorus (12/19/2012 3:20 AM EDT) Phosphorus 4.8(H) 2.5 - 4.5 mg/dL CERNER MILLENNIUM Blood specimen (specimen) 12/19/2012 3:20 AM EDT 12/19/2012 3:40 AM EDT Narrative Resulting Agency Comment Spec In Lab Fabi Bliss MD CHEMISTRY ORDERA BLERenuka Performing Organization Address [facility] de Phone Number [facility] * Magnesium (12/19/2012 3:20 AM EDT) Magnesium 0.80 0.69 - 1.07 mmol/L CERNER MILLENNIUM Blood specimen (specimen) 12/19/2012 3:20 AM EDT 12/19/2012 3:40 AM EDT Narrative Resulting Agency Comment Spec In Lab Fabi Bliss MD CHEMISTRY ORDERA BLES Performing Organization Address [facility] de Phone Number [facility] * (ABNORMAL) Lactate Dehydrogenase (12/19/2012 3:20 AM EDT) LDH 270(H) 110 - 220 unit/L [facility] Blood specimen (specimen) 12/19/2012 3:20 AM EDT 12/19/2012 3:40 AM EDT Narrative Resulting Agency Comment Spec In Lab Fabi Bliss MD CHEMISTRY ORDERA BLES Performing Organization Address [facility] de Phone Number [facility] * (ABNORMAL) Basic Metabolic Panel (non-fasting) (12/19/2012 3:20 AM EDT) Glucose Lvl 98 60 - 199 mg/dL [facility] MILLENNIUM Comment:Diabetes: >=200 mg/d L plus symptoms BUN 41(H) 8 - 18 mg/dL CERNER MILLENNIUM Creatinine 2.19(H) 0.70 - 1.20 mg/dL CERNER MILLENNIUM Comment: Please note that the pediatric reference intervals supplied above were not validated [place] [facility] Results from pediatric patients should be interpreted in conjunction to the patient's age, height and muscle mass. Sodium 145 135 - 145 mmol/L [facility] MILLENNIUM Potassium 3.7 3.5 - 5.0 mmol/L [facility] MILLENNIUM Comment: Please note: ??Patients with WBC >100,000 may have falsely elevated Potassium levels. ??For accurate Potassium quantification in these patients send serum separator tube (gold top) for subsequent determinations. ??Contact the Clinical Chemistry Laboratory if there are any questions. Chloride 104 98 - 107 mmol/L CERNER MILLENNIUM CO2 28 22 - 31 mmol/L CERNER MILLENNIUM Anion Gap 13 5 - 15 mmol/L CERNER MILLENNIUM Calcium 8.5 8.5 - 10.5 mg/dL CERNER MILLENNIUM Estimated GFR 23(L) >=60 CERNER MILLENNIUM Comment: This estimated GFR [...] internet browser. http://www.nkdep.nih.gov/lab-evaluation.shtml http://www.kidney.org/professionals/ Blood specimen (specimen) 12/19/2012 3:20 AM EDT 12/19/2012 3:40 AM EDT Narrative Resulting Agency Comment Spec In Lab Luis E Trotter MD CHEMISTRY ORDERABLES [facility] * (ABNORMAL) CBC (with Diff) (12/19/2012 3:20 AM EDT) WBC 8.9 4.0 - 10.0 x10(3)/mcL CERNER MILLENNIUM RBC 2.66(L) 3.93 - 5.22 x10(6)/mcL CERNER MILLENNIUM Hemoglobin 7.8(L) 11.2 - 15.7 gm/dL CERNER MILLENNIUM Hematocrit 23.2(L) 34.0 - 45.0 % CERNER MILLENNIUM MCV 87.2 79.0 - 94.0 fL CERNER MILLENNIUM MCH 29.3 26.6 - 32.2 pg CERNER MILLENNIUM MCHC 33.6 32.0 - 36.5 gm/dL CERNER MILLENNIUM Platelets 123(L) 145 - 370 x10(3)/mcL CERNER MILLENNIUM RDWSD 43.2 35.0 - 46.0 fL CERNER MILLENNIUM RDWCV 14.5(H) 10.9 - 14.4 % CERNER MILLENNIUM MPV 11.0 9.0 - 12.0 fL CERNER MILLENNIUM Blood specimen (specimen) 12/19/2012 3:20 AM EDT 12/19/2012 3:40 AM EDT Narrative Resulting Agency Comment Spec In Lab Luis E Trotter MD HEMATOLOGY ORDERABLE S Performing Organization Address [facility] Co de Phone Number BAR NOE * (ABNORMAL) Calcium Ionized Whole Blood, MARTIN (12/18/2012 9:05 PM EDT) pH Martin 7.44(H) 7.32 - 7.42 CERELIO MILLENNIUM ICa Whole Blood 1.20 1.15 - 1.33 mmol/L CERNER MILLENNIUM Comment: Reference Ranges: ?? < 19 yrs: 1.22 - 1.37 mmol/L ? Adults: 1.15 - 1.33 mmol/L Note: ??Total bilirubin higher than 20 mg/dL may lead to falsely low ionized calcium. Blood specimen (specimen) 12/18/2012 9:05 PM EDT 12/18/2012 9:11 PM EDT Narrative Resulting Agency Comment Spec In Lab Ankit Ohara MD CHEMISTRY ORDERABLES Performing Organization Address City/[facility]/ZIP Co de Phone Number BAR NOE * UPPER GI ENDOSCOPY (12/18/2012 4:09 PM EDT) UPPER GI ENDOSCOPY [facility] Patient Name: Anum Henriquez ? Procedure Date: 12/18/2012 4:09 PM ? Date of : 1960 ? Age: 52 ? Order #: [id number] ? Procedure: ? Upper GI endoscopy Indications: ? Melena Providers: ? Alda Sullivan MD, Tonny Nguyen, DRU, ? Chikis Swanson [employer] Referring : ?Bakari Costello Medicines: ? Midazolam 1.5 mg IV, Fentanyl 50 ? micrograms IV Complications: ? No immediate complications. Procedure: ? [...] ? and informed consent was obtained. ? The procedure, indications, benefits, ? risks and alternatives were explained ? to the patient. Specifically ? discussed were potential ? complications including, but not ? limited to, bleeding, perforation, ? infection, missing a cancer, and ? adverse medication reactions. The ? Endoscope was introduced through the ? mouth, and advanced to the third part ? of duodenum. The patient tolerated ? the procedure well. The upper GI ? endoscopy was accomplished without ? difficulty. The patient tolerated the ? procedure fairly well. ? Findings: ? The esophagus was normal. ? Diffuse erythematous mucosa with submucosal ? hemorrhages was found in the gastric body. ? The examined duodenum was normal. ? Impression: ?- Normal esophagus. ? - Gastric mucosal abnormality in the ? gastric body characterized by ? 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 ? - Normal examined duodenum. Recommendation: ?Continue to monitor clinical course. ? Alda Sullivan MD 12/18/2012 5:00 PM This report has been signed electronically. Number of Addenda: 0 Note Initiated On: 12/18/2012 4:09 PM PROVATION 12/18/2012 4:09 PM EDT Ankit Ohara MD GENERAL SURGICAL ORD ERABLES Performing Organization Address [facility] de Phone Number PROVATION * (ABNORMAL) Calcium Ionized Whole Blood, MARTIN (12/18/2012 3:50 PM EDT) pH Martin 7.42 7.32 - 7.42 CERNER MILLENNIUM ICa Whole Blood 1.03(L) 1.15 - 1.33 mmol/L CERNER MILLENNIUM Comment: Reference Ranges: ?? < 19 yrs: 1.22 - 1.37 mmol/L ? Adults: 1.15 - 1.33 mmol/L Note: ??Total bilirubin higher than 20 mg/dL may lead to falsely low ionized calcium. Blood specimen (specimen) 12/18/2012 3:50 PM EDT 12/18/2012 4:02 PM EDT Narrative Resulting Agency Comment Spec In Lab Ankit Ohara MD CHEMISTRY ORDERABLES Performing Organization Address [facility] de Phone Number CERNER MILLENNIUM * (ABNORMAL) Calcium Ionized Whole Blood, MARTIN (12/18/2012 2:35 PM EDT) pH Martin 7.42 7.32 - 7.42 CERNER MILLENNIUM ICa Whole Blood 0.81(Criti lenard) 1.15 - 1.33 mmol/L CERNER MILLENNIUM Comment: Result rechecked. Called by: leonel, Read back by: Maria Alejandra Carrasco, Date/Time:12/18/12 14:50. Reference Ranges: ?? < 19 yrs: 1.22 - 1.37 mmol/L ? Adults: 1.15 - 1.33 mmol/L Note: ??Total bilirubin higher than 20 mg/dL may lead to falsely low ionized calcium. Blood specimen (specimen) 12/18/2012 2:35 PM EDT 12/18/2012 2:43 PM EDT Narrative Resulting Agency Comment Spec In Lab Jaleel Reynoso MD CHEMISTRY ORDERABLES CERNER MILLENNIUM * (ABNORMAL) Differential, Automated (12/18/2012 4:25 AM EDT) Neutrophils % 74.4(H) 34.0 - 71.0 % CERNER MILLENNIUM Neutr Abs (ANC) 5.75 1.50 - 6.30 x10(3)/mc L CERNER MILLENNIUM Lymphocytes % 13.1(L) 19.0 - 53.0 % CERNER MILLENNIUM Lymphocytes Abs 1.0 1.0 - 3.6 x10(3)/mc L CERNER MILLENNIUM Monocytes % 7.2 4.0 - 13.0 % CERNER MILLENNIUM Monocyte Abs 0.6 0.2 - 1.0 x10(3)/mc L CERNER MILLENNIUM Eosinophils % 3.6 0.0 - 7.0 % CERNER MILLENNIUM Eosinophils Abs 0.3 0.0 - 0.5 x10(3)/mc L CERNER MILLENNIUM Basophils % 0.1 0.0 - 2.0 % CERNER MILLENNIUM Basophils Abs 0.0 0.0 - 0.2 x10(3)/mc L CERNER MILLENNIUM Immature Gran % 1.60(H) 0.00 - 0.66 % CERNER MILLENNIUM Comment: Immature granulocytes(IG's)percentage and absolute count will include metamyelocytes, myelocytes, and promyelocytes. Blood smears from CBCs yielding IG's will be scanned manually for concordance. If this scan disagrees with the automated IG or if promyelocytes are noted, a manual differential will be performed. Petty Gran Abs 0.12(H) 0.00 - 0.05 x10(3)/mc L CERNER ISRRAELENNIUM Blood specimen (specimen) 12/18/2012 4:25 AM EDT 12/18/2012 4:36 AM EDT Luis E Trotter MD HEMATOLOGY ORDERABLE S Performing Organization Address City/[facility] Co de Phone Number CERELIO PINEDAIUM * Scan, Peripheral Blood (12/18/2012 4:25 AM EDT) Plat Estimate Decreased [facility] RBC Morphology Normal CERNE R MILLENNIUM Blood specimen (specimen) 12/18/2012 4:25 AM EDT 12/18/2012 4:36 AM EDT Narrative Resulting Agency Comment Spec In Lab Luis E Trotter MD HEMATOLOGY ORDERABLE S Performing Organization Address [facility] de Phone Number [facility] * Phosphorus (12/18/2012 4:25 AM EDT) Phosphorus 4.4 2.5 - 4.5 mg/dL CERELIO [facility] Blood specimen (specimen) 12/18/2012 4:25 AM EDT 12/18/2012 4:36 AM EDT Narrative Resulting Agency Comment Spec In Lab Fabi Bliss MD CHEMISTRY ORDERA BLES Performing Organization Address [facility] Co de Phone Number BAR [facility] * Magnesium (12/18/2012 4:25 AM EDT) Magnesium 0.83 0.69 - 1.07 mmol/L CERELIO ARCOSENNIUM Blood specimen (specimen) 12/18/2012 4:25 AM EDT 12/18/2012 4:36 AM EDT Narrative Resulting Agency Comment Spec In Lab Fabi Bliss MD CHEMISTRY ORDERA BLES CERNER MILLENNIUM * (ABNORMAL) Lactate Dehydrogenase (12/18/2012 4:25 AM EDT) LDH 306(H) 110 - 220 unit/L CERNER MILLENNIUM Blood specimen (specimen) 12/18/2012 4:25 AM EDT 12/18/2012 4:36 AM EDT Narrative Resulting Agency Comment Spec In Lab Fabi Bliss MD CHEMISTRY ORDERA BLES Performing Organization Address [facility] Co de Phone Number CERNER MILLENNIUM * (ABNORMAL) Basic Metabolic Panel (non-fasting) (12/18/2012 4:25 AM EDT) Glucose Lvl 92 60 - 199 mg/dL CERNER MILLENNIUM Comment:Diabetes: >=200 mg/d L plus symptoms BUN 41(H) 8 - 18 mg/dL CERNER MILLENNIUM Creatinine 2.28(H) 0.70 - 1.20 mg/dL CERNER MILLENNIUM Comment: Please note that the pediatric reference intervals supplied above were not validated [place] [facility]. Results from pediatric patients should be interpreted [...] Laboratory if there are any questions. Chloride 104 98 - 107 mmol/L CERNER MILLENNIUM CO2 29 22 - 31 mmol/L CERNER MILLENNIUM Anion Gap 7 5 - 15 mmol/L CERNER MILLENNIUM Calcium 8.1(L) 8.5 - 10.5 mg/dL CERNER MILLENNIUM Estimated [...] internet browser. http://www.nkdep.nih.gov/lab-evaluation.shtml http://www.kidney.org/professionals/ Blood specimen (specimen) 12/18/2012 4:25 AM EDT 12/18/2012 4:36 AM EDT Narrative Resulting Agency Comment Spec In Lab Luis E Trotter MD CHEMISTRY ORDERABLES BAR NOE * (ABNORMAL) CBC (with Diff) (12/18/2012 4:25 AM EDT) WBC 7.7 4.0 - 10.0 x10(3)/mcL CERNER MILLENNIUM RBC 2.60(L) 3.93 - 5.22 x10(6)/mcL CERNER MILLENNIUM Hemoglobin 7.9(L) 11.2 - 15.7 gm/dL CERNER MILLENNIUM Hematocrit 22.4(L) 34.0 - 45.0 % CERNER MILLENNIUM MCV 86.2 79.0 - 94.0 fL CERNER MILLENNIUM MCH 30.4 26.6 - 32.2 pg CERNER MILLENNIUM MCHC 35.3 32.0 - 36.5 gm/dL CERNER MILLENNIUM Platelets 99(L) 145 - 370 x10(3)/mcL CERNER MILLENNIUM RDWSD 43.7 35.0 - 46.0 fL CERNER MILLENNIUM RDWCV 14.2 10.9 - 14.4 % CERNER MILLENNIUM MPV 10.7 9.0 - 12.0 fL CERNER MILLENNIUM Blood specimen (specimen) 12/18/2012 4:25 AM EDT 12/18/2012 4:36 AM EDT Narrative Resulting Agency Comment Spec In Lab Luis E Trotter MD HEMATOLOGY ORDERABLE S BAR NOE * XR chest routine PA & lateral (12/17/2012 8:31 PM EDT) Anatomical Region Laterality Modality Chest N/A Radiographic Oanh ging 12/17/2012 8:31 PM EDT Narrative 12/17/2012 8:59 PM EDT Examination CHEST ROUTINE 2 VIEWS Clinical History fluid overload, new desats. ?degree of pulmonary edema vs other process Comparison None Technique 2 views Findings Right PICC catheter tip terminates in the cavoatrial junction and right internal jugular catheter tip in the distal superior vena cava. No pneumothorax. There are small to moderate bilateral pleural effusions, left greater than right. ??No enlargement of the central pulmonary vascularity, peribronchial cuffing, alveolar or interstitial process. ??Heart size is at the upper limits of normal, partially obscured due to the effusions. Impression ? 1. Small to moderate bilateral pleural effusions, left greater than right. ?? No findings to suggest pulmonary edema. Procedure Note Jaleel Ferrari MD - 12/17/2012 Examination CHEST ROUTINE 2 VIEWS Clinical History fluid overload, new desats. ?degree of pulmonary edema vs other process Comparison None Technique 2 views Findings Right PICC catheter tip terminates in the cavoatrial junction and right internal jugular catheter tip in the distal superior vena cava. No pneumothorax. There are small to moderate bilateral pleural effusions,left greater than right. No enlargement of the central pulmonary vascularity, peribronchial cuffing, alveolar or interstitial process. Heart size is atthe upper limits of normal, partially obscured due to the effusions. Impression 1. Small to moderate bilateral pleural effusions, left greater thanright. No findings to suggest pulmonary edema. Fabi Bliss MD IMG DX ORDERABLE S * Red Hold (12/17/2012 6:49 PM EDT) Red Hold Sample in lab. BAR NOE Blood specimen (specimen) 12/17/2012 6:49 PM EDT 12/17/2012 7:06 PM EDT Fabi Bliss MD CHEMISTRY ORDERA BLES BAR NOE * Hepatitis C Antibody (12/17/2012 6:49 PM EDT) Hepatitis C Ab Negative Negative CERNE R MILLENNIUM Blood specimen (specimen) 12/17/2012 6:49 PM EDT 12/17/2012 7:03 PM EDT Narrative Resulting Agency Comment Spec In Lab Fabi Bliss MD IMMUNOLOGY ORDER VIKAS BAR NOE * KIANA (12/17/2012 6:49 PM EDT) KIANA Neg Neg BAR NOE Blood specimen (specimen) 12/17/2012 6:49 PM EDT 12/18/2012 8:09 AM EDT Narrative Resulting Agency Comment Spec In Lab Fabi Bliss MD IMMUNOLOGY ORDER VIKAS BAR NOE * Transfuse RBC (12/17/2012 5:07 PM EDT) Fabi Bliss MD NURSING TREATMEN T ORDERABLES - BLOOD ADMIN * Smear Review Report (12/17/2012 2:24 PM EDT) Smear Review Report ? [facility] ? Provider: ?? FABI BLISS Pt. Name: ?? ANUM HENRIQUEZ ?M ? Acc #: ?[id number] ? Pt. ? Col Date: ?? 12/17/2012 ?/Sex: ?1960,(52 years),Female ? Rec Date: ?? 12/17/2012 ?LOC: ?1WST ? MORPHOLOGIC HEMATOLOGY: SMEAR REVIEW ? ---Clinical Information--- ? HEMOLYSIS-SHISTOCYTE S? ---Results--- ? See e-DH: LAB and PATHOLOGY, Lab Results, CBC and manual differential. ? ---Interpretation--- ? 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 ? Thrombocytopenia. ??see comment ? 12/17/12 ? PK ? 12/17/12 Verified by: ? Phuc Greene MD ? Hematopathologist ? (Electronic Signature) ? The attending pathologist whose signature appears on this report has ? reviewed all diagnostic slides and has edited the gross and/or ? microscopic portion of the report in rendering the final pathologic ? diagnosis. ? ---Comment--- ? Scistocytes are more than noted in the previous smear; [id number]. ELLIOTELIO ARCOSMEKHI 12/17/2012 2:24 PM EDT Fabi Bliss MD PATHOLOGY/CYTOLO GY ORDERABLES [facility] * Peripheral Smear Review (12/17/2012 1:00 PM EDT) Periph Smear Rev See Comment BAR NOE Comment: When completed by the Pathologist, report [id number] will display under Hematopathology Reports. Blood specimen (specimen) 12/17/2012 1:00 PM EDT 12/17/2012 1:10 PM EDT Narrative Resulting Agency Comment Spec In Lab Fabi Bliss MD HEMATOLOGY ORDER VIKAS CERNER ISRRAELENNIUM * (ABNORMAL) Differential, Automated (12/17/2012 1:00 PM EDT) Neutrophils % 74.4(H) 34.0 - 71.0 % CERNER MILLENNIUM Neutr Abs (ANC) 5.12 1.50 - 6.30 x10(3)/mc L CERNER MILLENNIUM Lymphocytes % 14.5(L) 19.0 - 53.0 % CERNER MILLENNIUM Lymphocytes Abs 1.0 1.0 - 3.6 x10(3)/mc L CERNER MILLENNIUM Monocytes % 7.4 4.0 - 13.0 % CERNER MILLENNIUM Monocyte Abs 0.5 0.2 - 1.0 x10(3)/mc L CERNER MILLENNIUM Eosinophils % 2.6 0.0 - 7.0 % CERNER MILLENNIUM Eosinophils Abs 0.2 0.0 - 0.5 x10(3)/mc L CERNER MILLENNIUM Basophils % 0.1 0.0 - 2.0 % CERNER MILLENNIUM Basophils Abs 0.0 0.0 - 0.2 x10(3)/mc L CERNER MILLENNIUM Immature Gran % 1.00(H) 0.00 - 0.66 % CERNER MILLENNIUM Comment: Immature granulocytes(IG's)percentage and absolute count will include metamyelocytes, myelocytes, and promyelocytes. Blood smears from CBCs yielding IG's will be scanned manually for concordance. If this scan disagrees with the automated IG or if promyelocytes are noted, a manual differential will be performed. Petty Gran Abs 0.07(H) 0.00 - 0.05 x10(3)/mc L CERNER MILLENNIUM Blood specimen (specimen) 12/17/2012 1:00 PM EDT 12/17/2012 1:10 PM EDT Fabi Bliss MD HEMATOLOGY ORDER VIKAS CERNER MILLENNIUM * (ABNORMAL) CBC (with Diff) (12/17/2012 1:00 PM EDT) WBC 6.9 4.0 - 10.0 x10(3)/mcL CERNER MILLENNIUM RBC 2.14(L) 3.93 - 5.22 x10(6)/mcL CERNER MILLENNIUM Hemoglobin 6.2(L) 11.2 - 15.7 gm/dL CERNER MILLENNIUM Hematocrit 18.3(L) 34.0 - 45.0 % CERNER MILLENNIUM MCV 85.5 79.0 - 94.0 fL CERNER MILLENNIUM MCH 29.0 26.6 - 32.2 pg CERNER MILLENNIUM MCHC 33.9 32.0 - 36.5 gm/dL CERNER MILLENNIUM Platelets 65(L) 145 - 370 x10(3)/mcL CERNER MILLENNIUM RDWSD 44.3 35.0 - 46.0 fL CERNER MILLENNIUM RDWCV 14.5(H) 10.9 - 14.4 % CERNER MILLENNIUM MPV 10.8 9.0 - 12.0 fL CERNER MILLENNIUM Blood specimen (specimen) 12/17/2012 1:00 PM EDT 12/17/2012 1:10 PM EDT Narrative Resulting Agency Comment Spec In Lab Fabi Bliss MD HEMATOLOGY ORDER VIKAS Performing Organization Address City/[facility]/ZIP Co de Phone Number BAR ARCOSENNIUM * Prepare RBC (12/17/2012 9:35 AM EDT) Dispensed? Yes CERNER MILLENNIUM Blood specimen (specimen) 12/17/2012 9:35 AM EDT 12/17/2012 9:34 AM EDT Fabi Bliss MD BLOOD BANK PRODU CT ORDERABLES CERELIO ARCOSENNIUM * Scan, Peripheral Blood (12/17/2012 4:00 AM EDT) Plat Estimate Decreased CERNER MILLENNIUM RBC Morphology Abnormal CERNE R MILLENNIUM Polychromasia Present >5/HPF CERNER MILLENNIUM Schistocytes 6-10 /HPF CERNER MILLENNIUM Blood specimen (specimen) 12/17/2012 4:00 AM EDT 12/17/2012 4:04 AM EDT Narrative Resulting Agency Comment Spec In Lab Luis E Trotter MD HEMATOLOGY ORDERABLE S CERNER MILLENNIUM * (ABNORMAL) Differential, Automated (12/17/2012 4:00 AM EDT) Neutrophils % 77.4(H) 34.0 - 71.0 % CERNER MILLENNIUM Neutr Abs (ANC) 5.16 1.50 - 6.30 x10(3)/mc L CERNER MILLENNIUM Lymphocytes % 11.5(L) 19.0 - 53.0 % CERNER MILLENNIUM Lymphocytes Abs 0.8(L) 1.0 - 3.6 x10(3)/mc L CERNER MILLENNIUM Monocytes % 7.6 4.0 - 13.0 % CERNER MILLENNIUM Monocyte Abs 0.5 0.2 - 1.0 x10(3)/mc L CERNER MILLENNIUM Eosinophils % 2.2 0.0 - 7.0 % CERNER MILLENNIUM Eosinophils Abs 0.2 0.0 - 0.5 x10(3)/mc L CERNER MILLENNIUM Basophils % 0.1 0.0 - 2.0 % CERNER MILLENNIUM Basophils Abs 0.0 0.0 - 0.2 x10(3)/mc L CERNER MILLENNIUM Immature Gran % 1.20(H) 0.00 - 0.66 % CERNER MILLENNIUM Comment: Immature granulocytes(IG's)percentage and absolute count will include metamyelocytes, myelocytes, and promyelocytes. Blood smears from CBCs yielding IG's will be scanned manually for concordance. If this scan disagrees with the automated IG or if promyelocytes are noted, a manual differential will be performed. Petty Gran Abs 0.08(H) 0.00 - 0.05 x10(3)/mc L CERNER MILLENNIUM Blood specimen (specimen) 12/17/2012 4:00 AM EDT 12/17/2012 4:04 AM EDT Luis E Trotter MD HEMATOLOGY ORDERABLE S CERNER MILLENNIUM * (ABNORMAL) Lactate Dehydrogenase (12/17/2012 4:00 AM EDT) LDH 366(H) 110 - 220 unit/L CERNER MILLENNIUM Blood specimen (specimen) 12/17/2012 4:00 AM EDT 12/17/2012 4:04 AM EDT Narrative Resulting Agency Comment Spec In Lab Fabi Bliss MD CHEMISTRY ORDERA BLES Performing Organization Address City/[facility]/ZIP Co de Phone Number CERNER MILLENNIUM * (ABNORMAL) Basic Metabolic Panel (non-fasting) (12/17/2012 4:00 AM EDT) Glucose Lvl 105 60 - 199 mg/dL CERNER MILLENNIUM Comment:Diabetes: >=200 mg/d L plus symptoms BUN 37(H) 8 - 18 mg/dL CERNER MILLENNIUM Creatinine 2.25(H) 0.70 - 1.20 mg/dL CERNER MILLENNIUM Comment: Please note that the pediatric reference intervals supplied above were not validated [place] [facility] Results from pediatric patients should be interpreted in conjunction to the patient's age, height and muscle mass. Sodium 141 135 - 145 mmol/L CERNER MILLENNIUM Potassium 3.3(L) 3.5 - 5.0 mmol/L CERNER MILLENNIUM Comment: Please note: ??Patients with WBC >100,000 may have falsely elevated Potassium levels. ??For accurate Potassium quantification in these patients send serum separator tube (gold top) for subsequent determinations. ??Contact the Clinical Chemistry Laboratory if there are any questions. Chloride 108(H) 98 - 107 mmol/L CERNER MILLENNIUM CO2 24 22 - 31 mmol/L CERNER MILLENNIUM Anion Gap 9 5 - 15 mmol/L CERNER MILLENNIUM Calcium 8.2(L) 8.5 - 10.5 mg/dL CERNER MILLENNIUM Estimated GFR 23(L) >=60 CERNER MILLENNIUM Comment: This estimated GFR [...] internet browser. http://www.nkdep.nih.gov/lab-evaluation.shtml http://www.kidney.org/professionals/ Blood specimen (specimen) 12/17/2012 4:00 AM EDT 12/17/2012 4:04 AM EDT Narrative Resulting Agency Comment Spec In Lab Luis E Trotter MD CHEMISTRY ORDERABLES CERNER MILLENNIUM * (ABNORMAL) CBC (with Diff) (12/17/2012 4:00 AM EDT) WBC 6.7 4.0 - 10.0 x10(3)/mcL CERNER MILLENNIUM RBC 2.33(L) 3.93 - 5.22 x10(6)/mcL CERNER MILLENNI[facility] Hemoglobin 7.0(L) 11.2 - 15.7 gm/dL [facility] Hematocrit 19.7(L) 34.0 - 45.0 % [facility] MILLENNIUM MCV 84.5 79.0 - 94.0 fL [facility] MILLENNIUM MCH 30.0 26.6 - 32.2 pg [facility] MILLENNIUM MCHC 35.5 32.0 - 36.5 gm/dL [facility] MILLENNIUM Platelets 58(L) 145 - 370 x10(3)/mcL CERNER MILLENNIUM RDWSD 44.0 35.0 - 46.0 fL CERNER MILLENNIUM RDWCV 14.5(H) 10.9 - 14.4 % CERNER MILLENNIUM MPV 10.7 9.0 - 12.0 fL CERNER MILLENNIUM Blood specimen (specimen) 12/17/2012 4:00 AM EDT 12/17/2012 4:04 AM EDT Narrative Resulting Agency Comment Spec In Lab Luis E Trotter MD HEMATOLOGY ORDERABLE S BAR NOE * Shiga Toxin Detection (12/17/2012 3:32 AM EDT) Shiga Toxin Assay ? Patient Name: ANUM HENRIQUEZ ?Ordered By: FABI BLISS ? MR#: [id number] ?LOC: ??1WST ? /Sex: ??1960 (52 years), ? Female ? PROCEDURE: Shiga Toxin Assay ?SOURCE: Stool ? COLLECTED: 12/17/2012 03:32 ?FREE TEXT SOURCE: Clinical TTP-HUS. Please test for E coli O157: ? STARTED: 12/17/2012 14:48 ? H7 / shiga toxin. ? FINAL REPORT ? Final Report ? Verified:12/09 15:59 ? Test not performed due to no enteric growth. ? __ BAR NOE Stool specimen (specimen) 12/17/2012 3:32 AM EDT 12/17/2012 2:48 PM EDT Comment:CLINICAL TTP-HUS. PL EASE TEST FOR E COLI O157:H7 / SHIGA TOXIN. Narrative Resulting Agency Comment Spec In Lab Fabi Bliss MD MICROBIOLOGY - G ENERAL ORDERABLES [facility] * Campylobacter Antigen (12/17/2012 3:32 AM EDT) Campylobacter Ag ? Patient Name: ANUM HENRIQUEZ ?Ordered By: FABI BLISS ? MR#: [id number] ?LOC: ??1WST ? /Sex: ??1960 (52 years), ? Female ? PROCEDURE: Campylobacter Antigen ?SOURCE: Stool ? COLLECTED: 12/17/2012 03:32 ?FREE TEXT SOURCE: Clinical TTP-HUS. Please test for E coli O157: ? STARTED: 12/17/2012 14:49 ? H7 / shiga toxin. ? FINAL REPORT ? Final Report ? Verified: 013 13:37 ? Immunoassay Negative for Campylobacter Antigen ? [facility] Stool specimen (specimen) 12/17/2012 3:32 AM EDT 12/17/2012 2:49 PM EDT Comment:CLINICAL TTP-HUS. PL EASE TEST FOR E COLI O157:H7 / SHIGA TOXIN. Narrative Resulting Agency Comment Spec In Lab Fabi Bliss MD MICROBIOLOGY - G ENERAL ORDERABLES BAR NOE * Stool culture (12/17/2012 3:32 AM EDT) Stool Culture ? Patient Name: ANUM HENRIQUEZ ?Ordered By: FABI BLISS ? MR#: [id number] ?LOC: ??1WST ? /Sex: ??1960 (52 years), ? Female ? PROCEDURE: Stool Culture ?SOURCE: Stool ? COLLECTED: 12/17/2012 03:32 ?FREE TEXT SOURCE: Clinical TTP-HUS. Please test for E coli O157: ? STARTED: 12/17/2012 14:49 ? H7 / shiga toxin. ? FINAL REPORT ? Final Report ? Verified:2012 12:24 ? No enteric pathogens isolated ? Reduced normal enteric nia isolated ? PRELIMINARY REPORT ? Preliminary Report ? Verified:2012 10:17 ? Culture in progress ? Reduced normal enteric nia isolated ? .Stool Culture ?Interpretive Results ? This specimen was screened for the presence of Salmonella, Shigella, E. ? coli 0157, Yersinia, Aeromonas ? and Plesiomonas. ? [facility] Stool specimen (specimen) 12/17/2012 3:32 AM EDT 12/17/2012 2:49 PM EDT Comment:CLINICAL TTP-HUS. PL EASE TEST FOR E COLI O157:H7 / SHIGA TOXIN. Narrative Resulting Agency Comment Spec In Lab Fabi Bliss MD MICROBIOLOGY - G ENERAL ORDERABLES Performing Organization Address [facility] Co de Phone Number [facility] * Cryptosporidium Oocyst Antigen (12/17/2012 3:32 AM EDT) Cryptosporidium Screen Negative Negative [facility] Stool specimen (specimen) 12/17/2012 3:32 AM EDT 12/17/2012 2:49 PM EDT Narrative Resulting Agency Comment Spec In Lab Luis E Trotter MD MICROBIOLOGY - GENER AL ORDERABLES Performing Organization Address [facility] Co de Phone Number [facility] * Giardia antigen (12/17/2012 3:32 AM EDT) Giardia Screen Negative Negative [facility] Comment:Examination for othe r intestinal parasites requires foreign travel history. Stool specimen (specimen) 12/17/2012 3:32 AM EDT 12/17/2012 2:49 PM EDT Narrative Resulting Agency Comment Spec In Lab Luis E Trotter MD MICROBIOLOGY - GENER AL ORDERABLES Performing Organization Address [facility] Co de Phone Number [facility] * MRI brain WO contrast (12/16/2012 9:02 PM EDT) Anatomical Region Laterality Modality Head Magnetic Resonan ce 12/16/2012 9:02 PM EDT Narrative 12/17/2012 8:23 AM EDT Examination MR Brain without Contrast Clinical History Pt with TTP-HUS, anemia, thrombocytopenia. New AMS, may be 2/2 TTP but want to r/o CONTENT MANAGER bleed, stroke, or any e/o CONTENT MANAGER vasculitis Comparison None Technique We obtained multi sequence multiplanar views of the brain without the use of enhancement. ?? Findings The upper cord and the region of the foramen magnum are normal. The brainstem and pituitary and corpus callosum are well formed. The diffusion sequence is unremarkable. There are normal flow voids at the skull base. The lateral ventricles are normal in size and midline structures are not shifted. ??Brain substance approximates the inner table. The visualized paranasal sinuses and mastoid air cells are free of active disease. No abnormal blood products are visualized on the gradient recalled sequence. ?? Impression The findings are normal. ?? Procedure Note Sivan Duong MD - 12/17/2012 Examination MR Brain without Contrast Clinical History Pt with TTP-HUS, anemia, thrombocytopenia. New AMS, may be 2/2 TTP butwant to r/o CONTENT MANAGER bleed, stroke, or any e/o CONTENT MANAGER vasculitis Comparison None Technique We obtained multi sequence multiplanar views of the brain without the useof enhancement. Findings The upper cord and the region of the foramen magnum are normal. Thebrainstem and pituitary and corpus callosum are well formed. The diffusion sequenceis unremarkable. There are normal flow voids at the skull base. The lateral ventricles are normal in size and midline structures are not shifted.Brain substance approximates the inner table. The visualized paranasal sinusesand mastoid air cells are free of active disease. No abnormal blood productsare visualized on the gradient recalled sequence. Impression The findings are normal. Fabi Bliss MD IMG MRI ORDERABL ES * HIV (12/16/2012 6:15 PM EDT) HIV 1/2 Ab Negative [facility] Blood specimen (specimen) 12/16/2012 6:15 PM EDT 12/16/2012 6:20 PM EDT Narrative Resulting Agency Comment Spec In Lab Fabi Bliss MD IMMUNOLOGY ORDER VIKAS BAR NOE * Place PICC Line: Contact Vascular Access Page [phone] (12/16/2012 3:36 PM EDT) Narrative Edvin Brian RN - 12/16/2012 3:36 PM EDT Edvin Brian RN ? 12/16/2012 ??3:36 PM PICC/Midline Insertion Procedure Note Indications: Anti-infective, Access and Medication Administration This insertion was not to replace a malfunctioning catheter. This insertion was not due to a suspected line-associated infection. Location of Procedure: X-Ray Room 11 Risks and Benefits: The risks and benefits of this procedure were reviewed and informed consent was obtained obtained. Time Out: Prior to the start of the procedure, the patient's identity, intended procedure, site/side, correct patient positioning and presence of the site keanu was confirmed as applicable. The medical history and chart were reviewed to rule out potential contraindications to the planned procedure. Hand Hygiene: The magazine keeper did perform hand hygiene prior to line insertion. Catheter type: PICC Lot number: [id number] Procedure Technique: Skin was prepped with chlorhexidine. Skin preparation agent was completely dry at the time of first skin puncture. The following barrier precaution methods were used:large sterile drape, maske/eye shield, large sterile gown, sterile gloves and cap. 3 ml of 1% Lidocaine was used for skin wheal. Ultrasound was used for guidance. ??Radiographic contrast agent was not injected for vein identification. Procedure Details: Order received for catheter placement. A 5 Fr. double lumen Bard Power catheter was placed into the right basilic vein over a 0.018 inch guidewire using modified seldinger technique and fluoroscopy. Arm circumference was 32 cm at 2 cm above the insertion site. Final catheter length (with trimming): 35 cm Internal: 35 cm External: 0 cm Tip in SVC per DR. ARRIAZA. The line was not placed over a guidewire. Post Procedure: Diagnosis: HEMMORRHAGIC COLITIS Blood return noted on aspiration of line after placement confirmed. 5 mls of normal saline infused free flowing to gravity via PICC after insertion. Sterile dressing applied: Tegaderm and Biopatch. Findings: The patient did tolerate the procedure well. No Complications. Procedure Comments: EDVIN BRIAN RN 12/16/2012 Procedure Note Edvin Brian RN - 12/16/2012 2:54 PM EDT PICC/Midline Insertion Procedure Note Indications: Anti-infective, Access and Medication Administration This insertion was not to replace a malfunctioning catheter. This insertion was not due to a suspected line-associated infection. Location of Procedure: X-Ray Room 11 Risks and Benefits: The risks and benefits of this procedure were reviewed and informedconsent was obtained obtained. Time Out: Prior to the start of the procedure, the patient's identity, intendedprocedure, site/side, correct patient positioning and presence of the sitemark was confirmed as applicable. The medical history and chart werereviewed to rule out potential contraindications to the planned procedure. Hand Hygiene: The magazine keeper did perform hand hygiene prior to line insertion. Catheter type: PICC Lot number: [id number] Procedure Technique: Skin was prepped with chlorhexidine. Skin preparation agent was completely dry at the time of first skinpuncture. The following barrier precaution methods were used:large sterile drape,maske/eye shield, large sterile gown, sterile gloves and cap. 3 ml of 1% Lidocaine was used for skin wheal. Ultrasound was used forguidance. Radiographic contrast agent was not injected for veinidentification. Procedure Details: Order received for catheter placement. A 5 Fr. double lumen Bard Powercatheter was placed into the right basilic vein over a 0.018 inchguidewire using modified seldinger technique and fluoroscopy. Armcircumference was 32 cm at 2 cm above the insertion site. Final catheter length (with trimming): 35 cm Internal: 35 cm External: 0 cm Tip in SVC per DR. ARRIAZA. The line was not placed over a guidewire. Post Procedure: Diagnosis: HEMMORRHAGIC COLITIS Blood return noted on aspiration of line after placement confirmed. 5 mlsof normal saline infused free flowing to gravity via PICC after insertion.Sterile dressing applied: Tegaderm and Biopatch. Findings: The patient did tolerate the procedure well. No Complications. Procedure Comments: EDVIN BRIAN RN 12/16/2012 Fabi Bliss MD PROCEDURE/MINOR SURGICAL ORDERABLES * (ABNORMAL) C4 Complement (12/16/2012 2:00 PM EDT) C4 Complement 4(L) 10 - 40 mg/dL [facility] Blood specimen (specimen) 12/16/2012 2:00 PM EDT 12/16/2012 2:15 PM EDT Narrative Resulting Agency Comment Spec In Lab Fabi Bliss MD CHEMISTRY ORDERA BLES Performing Organization Address [facility]/ZIP Co de Phone Number [facility] * (ABNORMAL) C3 Complement (12/16/2012 2:00 PM EDT) C3 Complement 66(L) 90 - 180 mg/dL [facility] Blood specimen (specimen) 12/16/2012 2:00 PM EDT 12/16/2012 2:15 PM EDT Narrative Resulting Agency Comment Spec In Lab Fabi Bliss MD CHEMISTRY ORDERA BLES Performing Organization Address [facility] Co de Phone Number [facility] * (ABNORMAL) C2 Complement (12/16/2012 2:00 PM EDT) C2 Complement <1.3(L) 1.6 - 3.5 mg/dL [facility] Comment: Low levels of C2 indicate increased catabolism (as in immune complex disease) or decreased synthesis. Test performed by [facility], [address] [place] [address] Blood specimen (specimen) 12/16/2012 2:00 PM EDT 12/16/2012 2:54 PM EDT Narrative Resulting Agency Comment Spec In Lab Fabi Bliss MD CHEMISTRY ORDERA BLERenuka Performing Organization Address [facility] Co de Phone Number [facility] * C1 Esterase Inhibitor, Functional (12/16/2012 2:00 PM EDT) C1 Scarlett Inh Qnt 90 % normal [facility] Comment: -- REFERENCE VALUE -- >67 (Normal) 41-67 (Equivocal) <41 (Abnormal) Test Performed by: [place] [address] Channel Opener: Tulio Luna III, M.D. Blood specimen (specimen) 12/16/2012 2:00 PM EDT 12/16/2012 3:14 PM EDT Narrative Resulting Agency Comment Spec In Lab Fabi Bliss MD CHEMISTRY ORDERA BLES Performing Organization Address City/[facility]/ZIP Co de Phone Number CERNER ISRRAELENNIUM * Proteinase-3 Antibody (12/16/2012 2:00 PM EDT) PR3 Ab 3.6 <=20.0 unit(s) CERNER MILLENNIUM Blood specimen (specimen) 12/16/2012 2:00 PM EDT 12/17/2012 8:07 AM EDT Narrative Resulting Agency Comment Spec In Lab Fabi Bliss MD CHEMISTRY ORDERA BLES Performing Organization Address City/[facility] Co de Phone Number CERNER IRSRAELENNIUM * Myeloperoxidase Ab (12/16/2012 2:00 PM EDT) MPO Ab 2.8 <=20.0 unit(s) CERNER MILLENNIUM Blood specimen (specimen) 12/16/2012 2:00 PM EDT 12/17/2012 8:07 AM EDT Narrative Resulting Agency Comment Spec In Lab Fabi Bliss MD CHEMISTRY ORDERA BLES Performing Organization Address City/[facility] Co de Phone Number CERNER ISRRAELENNIUM * Cytoplasmic Neutrophilic Ab (12/16/2012 2:00 PM EDT) C-ANCA Negative Negative CERNER MILLENNIUM Comment: Test Performed by: [address] [address] Channel Opener: Tulio Luna III, M.D. P-ANCA Negative Negative CERNER MILLENNIUM Comment: Negative for cANCA and pANCA patterns by immunofluorescence. Test Performed by: [place] [address] Channel Opener: Tulio Luna III, M.D. Blood specimen (specimen) 12/16/2012 2:00 PM EDT 12/16/2012 3:13 PM EDT Narrative Resulting Agency Comment Spec In Lab Fabi Bliss MD CHEMISTRY ORDERA BLES [facility] MILLENNIUM * (ABNORMAL) T4, free (12/16/2012 2:00 PM EDT) Free T4 0.88(L) 0.90 - 1.60 ng/dL CERNER MILLENNIUM Blood specimen (specimen) 12/16/2012 2:00 PM EDT 12/16/2012 2:15 PM EDT Narrative Resulting Agency Comment Spec In Lab Fabi Bliss MD CHEMISTRY ORDERA BLES CERNER MILLENNIUM * (ABNORMAL) T3, free (12/16/2012 2:00 PM EDT) T3, Free 1.6(L) 2.0 - 3.5 pg/mL CERNER MILLENNIUM Comment: Test Performed by: [place] [address] Channel Opener: Jennifer Ramirez, Ph.D. Blood specimen (specimen) 12/16/2012 2:00 PM EDT 12/16/2012 3:13 PM EDT Narrative Resulting Agency Comment Spec In Lab Fabi Bliss MD CHEMISTRY ORDERA BLES CERNER MILLENNIUM * TSH (12/16/2012 2:00 PM EDT) TSH 3.68 0.27 - 4.20 mcIU/mL CERNER MILLENNIUM Blood specimen (specimen) 12/16/2012 2:00 PM EDT 12/16/2012 2:15 PM EDT Narrative Resulting Agency Comment Spec In Lab Fabi Bliss MD CHEMISTRY ORDERA BLES Performing Organization Address City/[facility]/ZIP Co de Phone Number CERNER MILLENNIUM * (ABNORMAL) Urinalysis with microscopic (12/16/2012 1:35 PM EDT) Glucose UA Negative Negative mg/dL CERNER MILLENNIUM Protein UA 300(A) Neg mg/dL CERNER MILLENNIUM Bilirubin UA Negative Negative mg/dL CERNER MILLENNIUM Urobilinogen UA Normal mg/dL CERN ER MILLENNIUM pH UA 6.0 5.0 - 8.0 CERNER MILLENNIUM Blood UA Moderate mg/dL CERNER MILLENNIUM Ketones UA Negative mg/dL CERNER MILLENNIUM Nitrite UA Negative CERNER MILLENNIUM Leukocytes UA Small(A) Neg CERNER MILLENNIUM Appearance UA Hazy(A) Clear CERNER MILLENNIUM Spec [place] UA 1.013 1.002 - 1.030 CERNER MILLENNIUM Color UA Yellow Yellow CERNER MILLENNIUM RBC UA 70(H) 0 - 4 /HPF CERNER MILLENNIUM WBC UA 12(H) 0 - 5 /HPF CERNER MILLENNIUM Bacteria UA Occasional /HPF CERNER MILLENNIUM Squam Epith UA 1 <=4 /HPF CERNE R MILLENNIUM Hyaline Cast UA 11(H) 0 - 2 /LPF CER NER MILLENNIUM Urine specimen (specimen) 12/16/2012 1:35 PM EDT 12/16/2012 1:52 PM EDT Narrative Resulting Agency Comment Spec In Lab Fabi Bliss MD URINE ORDERABLES [facility]ERN[facility] MILLENNIUM * (ABNORMAL) Differential, Automated (12/16/2012 4:40 AM EDT) Neutrophils % 73.5(H) 34.0 - 71.0 % CERNER MILLENNIUM Neutr Abs (ANC) 4.69 1.50 - 6.30 x10(3)/mc L CERNER MILLENNIUM Lymphocytes % 15.5(L) 19.0 - 53.0 % CERNER MILLENNIUM Lymphocytes Abs 1.0 1.0 - 3.6 x10(3)/mc L CERNER MILLENNIUM Monocytes % 6.6 4.0 - 13.0 % CERNER MILLENNIUM Monocyte Abs 0.4 0.2 - 1.0 x10(3)/mc L CERNER MILLENNIUM Eosinophils % 3.1 0.0 - 7.0 % CERNER MILLENNIUM Eosinophils Abs 0.2 0.0 - 0.5 x10(3)/mc L CERNER MILLENNIUM Basophils % 0.2 0.0 - 2.0 % CERNER MILLENNIUM Basophils Abs 0.0 0.0 - 0.2 x10(3)/mc L CERNER MILLENNIUM Immature Gran % 1.10(H) 0.00 - 0.66 % CERNER MILLENNIUM Comment: Immature granulocytes(IG's)percentage and absolute count will include metamyelocytes, myelocytes, and promyelocytes. Blood smears from CBCs yielding IG's will be scanned manually for concordance. If this scan disagrees with the automated IG or if promyelocytes are noted, a manual differential will be performed. Petty Gran Abs 0.07(H) 0.00 - 0.05 x10(3)/mc L CERNER MILLENNIUM Blood specimen (specimen) 12/16/2012 4:40 AM EDT 12/16/2012 4:47 AM EDT Luis E Trotter MD HEMATOLOGY ORDERABLE S CERNER MILLENNIUM * (ABNORMAL) Hepatic Function Panel (12/16/2012 4:40 AM EDT) Total Protein 4.3(L) 6.4 - 8.3 gm/dL CERNER MILLENNIUM Albumin 2.6(L) 3.2 - 5.2 gm/dL CERNER MILLENNIUM AST 49(H) 0 - 30 unit/L CERNER MILLENNIUM ALT 21 0 - 30 unit/L CERNER MILLENNIUM Comment:result rechecked-pmh Alk Phos 32(L) 40 - 104 unit/L CERNER MILLENNIUM Total Bilirubin 0.8 0.2 - 1.3 mg/dL CERNER MILLENNIUM Bili, Direct 0.2 0.0 - 0.3 mg/dL CERNER MILLENNIUM Blood specimen (specimen) 12/16/2012 4:40 AM EDT 12/16/2012 4:47 AM EDT Narrative Resulting Agency Comment Spec In Lab Luis E Trotter MD CHEMISTRY ORDERABLES [facility]ERN[facility] MILLENNIUM * (ABNORMAL) Lactate Dehydrogenase (12/16/2012 4:40 AM EDT) LDH 455(H) 110 - 220 unit/L CERNER MILLENNIUM Blood specimen (specimen) 12/16/2012 4:40 AM EDT 12/16/2012 4:47 AM EDT Narrative Resulting Agency Comment Spec In Lab Fabi Bliss MD CHEMISTRY ORDERA BLES Performing Organization Address [facility]/ZIP Co de Phone Number CERNER MILLENNIUM * (ABNORMAL) Basic Metabolic Panel (non-fasting) (12/16/2012 4:40 AM EDT) Glucose Lvl 110 60 - 199 mg/dL CERNER MILLENNIUM Comment:Diabetes: >=200 mg/d L plus symptoms BUN 33(H) 8 - 18 mg/dL CERNER MILLENNIUM Creatinine 2.29(H) 0.70 - 1.20 mg/dL CERNER MILLENNIUM Comment: Please note that the pediatric reference intervals supplied above were not validated at [facility] Results from pediatric patients should be interpreted [...] Laboratory if there are any questions. Chloride 111(H) 98 - 107 mmol/L CERNER MILLENNIUM CO2 22 22 - 31 mmol/L CERNER MILLENNIUM Anion Gap 6 5 - 15 mmol/L CERNER MILLENNIUM Calcium 8.1(L) 8.5 - 10.5 mg/dL CERNER MILLENNIUM Estimated [...] internet browser. http://www.nkdep.nih.gov/lab-evaluation.shtml http://www.kidney.org/professionals/ Blood specimen (specimen) 12/16/2012 4:40 AM EDT 12/16/2012 4:47 AM EDT Narrative Resulting Agency Comment Spec In Lab Luis E Trotter MD CHEMISTRY ORDERABLES CERELIO ARCOSENNIUM * (ABNORMAL) CBC (with Diff) (12/16/2012 4:40 AM EDT) WBC 6.4 4.0 - 10.0 x10(3)/mcL CERNER MILLENNIUM RBC 2.63(L) 3.93 - 5.22 x10(6)/mcL CERNER MILLENNIUM Hemoglobin 7.5(L) 11.2 - 15.7 gm/dL CERNER MILLENNIUM Hematocrit 22.2(L) 34.0 - 45.0 % CERNER MILLENNIUM MCV 84.4 79.0 - 94.0 fL CERNER MILLENNIUM MCH 28.5 26.6 - 32.2 pg CERNER MILLENNIUM MCHC 33.8 32.0 - 36.5 gm/dL CERNER MILLENNIUM Platelets 42(L) 145 - 370 x10(3)/mcL CERNER MILLENNIUM RDWSD 43.7 35.0 - 46.0 fL BAR PINEDAIUM RDWCV 14.4 10.9 - 14.4 % BAR PINEDAIUM MPV Not Measured 9.0 - 12.0 fL BAR NOE Blood specimen (specimen) 12/16/2012 4:40 AM EDT 12/16/2012 4:47 AM EDT Narrative Resulting Agency Comment Spec In Lab Luis E Trotter MD HEMATOLOGY ORDERABLE S BAR NOE * XR abdomen flat and upright (12/15/2012 1:23 PM EDT) Anatomical Region Laterality Modality Abdomen N/A Radiographic Oanh ging 12/15/2012 1:23 PM EDT Narrative 12/15/2012 3:46 PM EDT Examination ABD FLAT AND UPRIGHT Clinical History pt with bloody diarrhea, TTT-HUS, c diff positive. decreased bowel sounds, mild abd distention, abd pain increasing. ?ileus, obstruction, free air Comparison 06/25/2012. Technique Findings There is mild gaseous distention of the small bowel with a few air-fluid levels. ??However, there also appears to be some gas within the colon. ??The pattern is most consistent with a partial small bowel obstruction. ??There is no evidence of free subdiaphragmatic air. Impression Partial small bowel obstruction. No free subdiaphragmatic air. Procedure Note Amilcar Bonner MD - 12/15/2012 Examination ABD FLAT AND UPRIGHT Clinical History pt with bloody diarrhea, TTT-HUS, c diff positive. decreased bowel sounds,mild abd distention, abd pain increasing. ?ileus, obstruction, free air Comparison 06/25/2012. Technique Findings There is mild gaseous distention of the small bowel with a few air-fluid levels. However, there also appears to be some gas within the colon. The pattern is most consistent with a partial small bowel obstruction. Thereis no evidence of free subdiaphragmatic air. Impression Partial small bowel obstruction. No free subdiaphragmatic air. Fabi Bliss MD IMG DX ORDERABLE S * C. Difficile Screen (12/15/2012 7:42 AM EDT) C Diff Screen Negative Negative [facility] Stool specimen (specimen) 12/15/2012 7:42 AM EDT 12/15/2012 8:15 AM EDT Narrative Resulting Agency Comment Spec In Lab Luis E Trotter MD MICROBIOLOGY - GENER AL ORDERABLES Performing Organization Address [facility] Phone Number [facility] * (ABNORMAL) Fecal Lactoferrin (12/15/2012 7:42 AM EDT) Stool WBC Positive(A ) Negative [facility] Stool specimen (specimen) 12/15/2012 7:42 AM EDT 12/15/2012 8:15 AM EDT Narrative Resulting Agency Comment Spec In Lab Luis E Trotter MD MICROBIOLOGY - GENER AL ORDERABLES Performing Organization Address [facility] de Phone Number [facility] * Phosphorus (12/15/2012 3:50 AM EDT) Phosphorus 3.1 2.5 - 4.5 mg/dL [facility] Comment:Result rechecked. Blood specimen (specimen) 12/15/2012 3:50 AM EDT 12/15/2012 10:26 AM EDT Narrative Resulting Agency Comment Spec In Lab Luis E Trotter MD CHEMISTRY ORDERABLES Performing Organization Address [facility] de Phone Number [facility] * Magnesium (12/15/2012 3:50 AM EDT) Magnesium 0.72 0.69 - 1.07 mmol/L [facility] Blood specimen (specimen) 12/15/2012 3:50 AM EDT 12/15/2012 10:26 AM EDT Narrative Resulting Agency Comment Spec In Lab Luis E Trotter MD CHEMISTRY ORDERABLES [facility]COS[facility] * (ABNORMAL) Lactate Dehydrogenase (12/15/2012 3:50 AM EDT) Pathologist [facility] LDH 417(H) 110 - 220 unit/L CERNER MILLENNIUM Blood specimen (specimen) 12/15/2012 3:50 AM EDT 12/15/2012 4:01 AM EDT Narrative Resulting Agency Comment Spec In Lab Luis E Trotter MD CHEMISTRY ORDERABLES CERELIO ARCOSENNIUM * (ABNORMAL) Differential, Automated (12/15/2012 3:50 AM EDT) Pathologist [facility] Neutrophils % 68.6 34.0 - 71.0 % CERNER MILLENNIUM Neutr Abs (ANC) 4.35 1.50 - 6.30 x10(3)/mc L CERNER MILLENNIUM Lymphocytes % 18.5(L) 19.0 - 53.0 % CERNER MILLENNIUM Lymphocytes Abs 1.2 1.0 - 3.6 x10(3)/mc L CERNER MILLENNIUM Monocytes % 8.4 4.0 - 13.0 % CERNER MILLENNIUM Monocyte Abs 0.5 0.2 - 1.0 x10(3)/mc L CERNER MILLENNIUM Eosinophils % 2.8 0.0 - 7.0 % CERNER MILLENNIUM Eosinophils Abs 0.2 0.0 - 0.5 x10(3)/mc L CERNER MILLENNIUM Basophils % 0.3 0.0 - 2.0 % CERNER MILLENNIUM Basophils Abs 0.0 0.0 - 0.2 x10(3)/mc L CERNER MILLENNIUM Immature Gran % 1.40(H) 0.00 - 0.66 % CERNER MILLENNIUM Comment: Immature granulocytes(IG's)percentage and absolute count will include metamyelocytes, myelocytes, and promyelocytes. Blood smears from CBCs yielding IG's will be scanned manually for concordance. If this scan disagrees with the automated IG or if promyelocytes are noted, a manual differential will be performed. Petty Gran Abs 0.09(H) 0.00 - 0.05 x10(3)/mc L CERNER MILLENNIUM Blood specimen (specimen) 12/15/2012 3:50 AM EDT 12/15/2012 4:00 AM EDT Luis E Trotter MD HEMATOLOGY ORDERABLE S CERNER MILLENNIUM * (ABNORMAL) Basic Metabolic Panel (non-fasting) (12/15/2012 3:50 AM EDT) [facility] Glucose Lvl 109 60 - 199 mg/dL CERNER MILLENNIUM Comment:Diabetes: >=200 mg/d L plus symptoms BUN 26(H) 8 - 18 mg/dL CERNER MILLENNIUM Creatinine 2.12(H) 0.70 - 1.20 mg/dL CERNER MILLENNIUM Comment: Please note that the pediatric reference intervals supplied above were not validated [place] [facility] Results from pediatric patients should be interpreted in conjunction to the patient's age, height and muscle mass. Sodium 139 135 - 145 mmol/L CERNER MILLENNIUM Potassium 3.2(L) 3.5 - 5.0 mmol/L CERNER MILLENNIUM Comment: Please note: ??Patients with WBC >100,000 may have falsely elevated Potassium levels. ??For accurate Potassium quantification in these patients send serum separator tube (gold top) for subsequent determinations. ??Contact the Clinical Chemistry Laboratory if there are any questions. Chloride 113(H) 98 - 107 mmol/L CERNER MILLENNIUM CO2 20(L) 22 - 31 mmol/L CERNER MILLENNIUM Anion Gap 6 5 - 15 mmol/L CERNER MILLENNIUM Calcium 7.9(L) 8.5 - 10.5 mg/dL CERNER MILLENNIUM Estimated [...] internet browser. http://www.nkdep.nih.gov/lab-evaluation.shtml http://www.kidney.org/professionals/ Blood specimen (specimen) 12/15/2012 3:50 AM EDT 12/15/2012 3:59 AM EDT Narrative Resulting Agency Comment Spec In Lab Luis E Trotter MD CHEMISTRY ORDERABLES BAR PINEDAIUM * (ABNORMAL) CBC (with Diff) (12/15/2012 3:50 AM EDT) WBC 6.3 4.0 - 10.0 x10(3)/mcL CERNER MILLENNIUM RBC 3.01(L) 3.93 - 5.22 x10(6)/mcL CERNER MILLENNIUM Hemoglobin 9.2(L) 11.2 - 15.7 gm/dL CERNER MILLENNIUM Hematocrit 25.6(L) 34.0 - 45.0 % CERNER MILLENNIUM MCV 85.0 79.0 - 94.0 fL CERNER MILLENNIUM MCH 30.6 26.6 - 32.2 pg CERNER MILLENNIUM MCHC 35.9 32.0 - 36.5 gm/dL CERNER MILLENNIUM Platelets 41(L) 145 - 370 x10(3)/mcL CERNER MILLENNIUM RDWSD 43.9 35.0 - 46.0 fL CERNER MILLENNIUM RDWCV 14.2 10.9 - 14.4 % CERNER MILLENNIUM MPV 11.1 9.0 - 12.0 fL CERNER MILLENNIUM Blood specimen (specimen) 12/15/2012 3:50 AM EDT 12/15/2012 4:00 AM EDT Narrative Resulting Agency Comment Spec In Lab Luis E Trotter MD HEMATOLOGY ORDERABLE S BAR NOE * IR centeral venous access (12/14/2012 6:05 PM EDT) Anatomical Region Laterality Modality Chest, Vascular X-Ray Angiograph y 12/14/2012 6:05 PM EDT Addenda Addendum on 12/20/2012 5:05 PM EDT Addendum Begins VIR PROCEDURE NOTE ?? ACC#: [id number] ?? PROCEDURE: Non-tunneled right internal jugular triple lumen pheresis catheter placement. ?? INDICATION: New onset TTP for plasmapheresis. ?? TECHNIQUE: After discussing the risks (including infection, hemorrhage, occlusion) and benefits, patient consented to the procedure and moderate sedation. Due to the painful nature of the procedure, split doses of fentanyl were administered by the IR nurse during continuous monitoring of pulse, blood pressure and oxygen saturation. ?? Maximal sterile barrier technique was utilized. After sterile preparation of the right neck and upper chest, ultrasound was used to localize the right internal jugular vein. 1% lidocaine SQ was administered for anesthesia, and a 21 ga needle was advanced under ultrasound guidance into the right IJ and a 0.018 inch wire was advanced into SVC. A 5 Fr introducer sheath was placed and the wire exchanged for a 0.035 inch wire. Venotomy was dilated to accommodate the pheresis catheter. The catheter was advanced into the right atrium under fluoroscopic guidance, and the wire was removed. All ports flushed and aspirated well. Spot image obtained. Line was sutured into place using 2-0 prolene. Patient tolerated the procedure well. There were no immediate complications. ?? Medications: 100 mcg fentanyl. ?? Fluoro time: 0.4 mins ?? Device: Triple lumen nontunnled pheresis catheter ?? Addendum on 12/20/2012 4:41 PM EDT Addendum Begins VIR PROCEDURE NOTE ?? ACC#: [id number] ?? PROCEDURE: Non-tunneled right internal jugular triple lumen pheresis catheter placement. ?? INDICATION: New onset TTP for plasmapheresis. ?? TECHNIQUE: After discussing the risks (including infection, hemorrhage, occlusion) and benefits, patient consented to the procedure and moderate sedation. Due to the painful nature of the procedure, split doses of fentanyl were administered by the IR nurse during continuous monitoring of pulse, blood pressure and oxygen saturation. ?? Maximal sterile barrier technique was utilized. After sterile preparation of the right neck and upper chest, ultrasound was used to localize the right internal jugular vein. 1% lidocaine SQ was administered for anesthesia, and a 21 ga needle was advanced under ultrasound guidance into the right IJ and a 0.018 inch wire was advanced into SVC. A 5 Fr introducer sheath was placed and the wire exchanged for a 0.035 inch wire. Venotomy was dilated to accommodate the pheresis catheter. The catheter was advanced into the right atrium under fluoroscopic guidance, and the wire was removed. All ports flushed and aspirated well. Spot image obtained. Line was sutured into place using 2-0 prolene. Patient tolerated the procedure well. There were no immediate complications. ?? Medications: 100 mcg fentanyl. ?? Fluoro time: 0.4 mins ?? Device: Triple lumen nontunnled pheresis catheter ?? Addendum on 12/20/2012 10:51 AM EDT Addendum Begins VIR PROCEDURE NOTE ?? ACC#: [id number] ?? PROCEDURE: Non-tunneled right internal jugular triple lumen pheresis catheter placement. ?? INDICATION: New onset TTP for plasmapheresis. ?? TECHNIQUE: After discussing the risks (including infection, hemorrhage, occlusion) and benefits, patient consented to the procedure and moderate sedation. Due to the painful nature of the procedure, split doses of fentanyl were administered by the IR nurse during continuous monitoring of pulse, blood pressure and oxygen saturation. ?? Maximal sterile barrier technique was utilized. After sterile preparation of the right neck and upper chest, ultrasound was used to localize the right internal jugular vein. 1% lidocaine SQ was administered for anesthesia, and a 21 ga needle was advanced under ultrasound guidance into the right IJ and a 0.018 inch wire was advanced into SVC. A 5 Fr introducer sheath was placed and the wire exchanged for a 0.035 inch wire. Venotomy was dilated to accommodate the pheresis catheter. The catheter was advanced into the right atrium under fluoroscopic guidance, and the wire was removed. All ports flushed and aspirated well. Spot image obtained. Line was sutured into place using 2-0 prolene. Patient tolerated the procedure well. There were no immediate complications. ?? Medications: 100 mcg fentanyl. ?? Fluoro time: 0.4 mins ?? Device: Triple lumen nontunnled pheresis catheter ?? Addendum on 12/19/2012 10:56 AM EDT Addendum Begins VIR PROCEDURE NOTE ?? ACC#: [id number] ?? PROCEDURE: Non-tunneled right internal jugular triple lumen pheresis catheter placement. ?? INDICATION: New onset TTP for plasmapheresis. ?? TECHNIQUE: After discussing the risks (including infection, hemorrhage, occlusion) and benefits, patient consented to the procedure and moderate sedation. Due to the painful nature of the procedure, split doses of fentanyl were administered by the IR nurse during continuous monitoring of pulse, blood pressure and oxygen saturation. ?? Maximal sterile barrier technique was utilized. After sterile preparation of the right neck and upper chest, ultrasound was used to localize the right internal jugular vein. 1% lidocaine SQ was administered for anesthesia, and a 21 ga needle was advanced under ultrasound guidance into the right IJ and a 0.018 inch wire was advanced into SVC. A 5 Fr introducer sheath was placed and the wire exchanged for a 0.035 inch wire. Venotomy was dilated to accommodate the pheresis catheter. The catheter was advanced into the right atrium under fluoroscopic guidance, and the wire was removed. All ports flushed and aspirated well. Spot image obtained. Line was sutured into place using 2-0 prolene. Patient tolerated the procedure well. There were no immediate complications. ?? Medications: 100 mcg fentanyl. ?? Fluoro time: 0.4 mins ?? Device: Triple lumen nontunnled pheresis catheter ?? Impressions 12/17/2012 9:41 AM EDT IMPRESSION: Placement of non-tunneled right internal jugular triple lumen pheresis catheter, catheter tip at right atrium. Catheter ready for use. ?? Resident: James Ventrua MD ?? Attending: Dr. Justo MD ?? I, Dr. Kemp, was present throughout the procedure. ?? Addendum Ends IMPRESSION: Placement of non-tunneled right internal jugular triple lumen pheresis catheter, catheter tip at right atrium. Catheter ready for use. ?? Resident: James Ventura MD ?? Attending: Dr. Justo MD ?? I, Dr. Kemp, was present throughout the procedure. ?? Film and interpretation reviewed by the attending Narrative 12/17/2012 9:41 AM EDT VIR PROCEDURE NOTE ?? ACC#: [id number] ?? PROCEDURE: Non-tunneled right internal jugular triple lumen pheresis catheter placement. ?? INDICATION: New onset TTP for plasmapheresis. ?? TECHNIQUE: After discussing the risks (including infection, hemorrhage, occlusion) and benefits, patient consented to the procedure and moderate sedation. Due to the painful nature of the procedure, split doses of fentanyl were administered by the IR nurse during continuous monitoring of pulse, blood pressure and oxygen saturation. ?? Maximal sterile barrier technique was utilized. After sterile preparation of the right neck and upper chest, ultrasound was used to localize the right internal jugular vein. 1% lidocaine SQ was administered for anesthesia, and a 21 ga needle was advanced under ultrasound guidance into the right IJ and a 0.018 inch wire was advanced into SVC. A 5 Fr introducer sheath was placed and the wire exchanged for a 0.035 inch wire. Venotomy was dilated to accommodate the pheresis catheter. The catheter was advanced into the right atrium, and the wire was removed. All ports flushed and aspirated well. Line was sutured into place using 2-0 prolene. Patient tolerated the procedure well. There were no immediate complications. ?? Medications: 100 mcg fentanyl. ?? Fluoro time: 0.4 mins ?? Device: Triple lumen nontunnled pheresis catheter ?? Procedure Note James Kemp MD - 12/20/2012 VIR PROCEDURE NOTE ACC#: [id number] PROCEDURE: Non-tunneled right internal jugular triple lumen pheresiscatheter placement. INDICATION: New onset TTP for plasmapheresis. TECHNIQUE: After discussing the risks (including infection, hemorrhage, occlusion) and benefits, patient consented to the procedure and moderate sedation. Due to the painful nature of the procedure, split doses offentanyl were administered by the IR nurse during continuous monitoring of pulse,blood pressure and oxygen saturation. Maximal sterile barrier technique was utilized. After sterile preparationof the right neck and upper chest, ultrasound was used to localize the right internal jugular vein. 1% lidocaine SQ was administered for anesthesia,and a 21 ga needle was advanced under ultrasound guidance into the right IJ william 0.018 inch wire was advanced into SVC. A 5 Fr introducer sheath was placedand the wire exchanged for a 0.035 inch wire. Venotomy was dilated toaccommodate the pheresis catheter. The catheter was advanced into the right atrium,and the wire was removed. All ports flushed and aspirated well. Line was suturedinto place using 2-0 prolene. Patient tolerated the procedure well. There wereno immediate complications. Medications: 100 mcg fentanyl. Fluoro time: 0.4 mins Device: Triple lumen nontunnled pheresis catheter IMPRESSION IMPRESSION: Placement of non-tunneled right internal jugular triple lumen pheresis catheter, catheter tip at right atrium. Catheter ready for use. Resident: James Ventura MD Attending: Dr. Justo MD I, Dr. Kemp, was present throughout the procedure. Addendum Ends IMPRESSION: Placement of non-tunneled right internal jugular triple lumen pheresis catheter, catheter tip at right atrium. Catheter ready for use. Resident: James Ventura MD Attending: Dr. Justo MD I, Dr. Kemp, was present throughout the procedure. Film and interpretation reviewed by the attending Fabi Bliss MD IMG IR ORDERABLE S * [id number] Activity (12/14/2012 2:02 PM EDT) Pathologist [facility] [id number] Activity 94 >/=70 % CE [facility] Comment: For research use only. Test Performed by: [place] [address] Channel Opener: Tulio Luna III, M.D. [id number] Interpretation SEE COMMENTS [facility] Comment: No laboratory evidence of [id number] deficiency. ??A normal FQLGYN65 activity level does not completely exclude a clinical diagnosis of thrombotic thrombocytopenic purpura (TTP). ??Recommend clinical correlation. Test Performed by: [place] [address] Channel Opener: Tulio Luna III, M.D. Blood specimen (specimen) 12/14/2012 2:02 PM EDT 12/16/2012 8:36 AM EDT Narrative Resulting Agency Comment Spec In Lab Yudith Raya DO CHEMISTRY ORDER VIKAS [facility] * Proteinase-3 Antibody (12/14/2012 12:03 PM EDT) Pathologist [facility] PR3 Ab 3.5 <=20.0 unit(s) BAR NOE Blood specimen (specimen) 12/14/2012 12:03 PM EDT 12/16/2012 8:26 AM EDT Narrative Resulting Agency Comment Spec In Lab Luis E Trotter MD CHEMISTRY ORDERABLES Performing Organization Address [facility] Co de Phone Number BAR PINEDAIUM * Myeloperoxidase Ab (12/14/2012 12:03 PM EDT) MPO Ab 3.0 <=20.0 unit(s) CERELIO PINEDAIUM Blood specimen (specimen) 12/14/2012 12:03 PM EDT 12/16/2012 8:26 AM EDT Narrative Resulting Agency Comment Spec In Lab Luis E Trotter MD CHEMISTRY ORDERABLES Performing Organization Address [facility] Co de Phone Number BAR PINEDAIUM * Cytoplasmic Neutrophilic Ab (12/14/2012 12:03 PM EDT) C-ANCA Negative Negative [facility] Comment: Test Performed by: [place] [address] Channel Opener: Tulio Luna III, M.D. P-ANCA Negative Negative CERELIO PINEDAIUM Comment: Negative for cANCA and pANCA patterns by immunofluorescence. Test Performed by: [place] [address] Channel Opener: Tulio Luna III, M.D. Blood specimen (specimen) 12/14/2012 12:03 PM EDT 12/16/2012 8:13 AM EDT Narrative Resulting Agency Comment Spec In Lab Luis E Trotter MD CHEMISTRY ORDERABLES Performing Organization Address [facility] Co de Phone Number BAR PINEDAIUM * Antibody screen (12/14/2012 9:47 AM EDT) Ab Screen Interp Negative CERELIO PINEDAIUM Expires at [id number] on: [id number] CERELIO PINEDAIUM Blood specimen (specimen) 12/14/2012 9:47 AM EDT 12/14/2012 9:53 AM EDT Narrative Resulting Agency Comment Spec In Lab Luis E Trotter MD BLOOD BANK LAB ORDER VIKAS Performing Organization Address [facility] Co de Phone Number BAR NOE * ABO/Rh Typing (12/14/2012 9:47 AM EDT) ABORH Type AB Pos CERNER MILLENNIUM Blood specimen (specimen) 12/14/2012 9:47 AM EDT 12/14/2012 9:53 AM EDT Narrative Resulting Agency Comment Spec In Lab Luis E Trotter MD BLOOD BANK LAB ORDER VIKAS Performing Organization Address [facility] Co de Phone Number BAR PINEDAIUM * (ABNORMAL) Reticulocyte Count (12/14/2012 9:47 AM EDT) Retic Ct % 1.1 0.5 - 2.4 % CERNER MILLENNIUM Retic Ct Abs 0.040 0.027 - 0.095 x10(6)/mcL CERNER MILLENNIUM Immature Retic% 23.7(H) 2.3 - 15.9 % CERNER MILLENNIUM Reticulated Hgb 30.4 28.8 - 38.9 pg CERNER MILLENNIUM Plat Immature % 8.7(H) 0.0 - 7.4 % CERNER MILLENNIUM Blood specimen (specimen) 12/14/2012 9:47 AM EDT 12/14/2012 9:52 AM EDT Narrative Resulting Agency Comment Spec In Lab Luis E Trotter MD HEMATOLOGY ORDERABLE S Performing Organization Address [facility] de Phone Number BAR PINEDAIUM * Direct antiglobulin test (12/14/2012 9:47 AM EDT) SEN Negative CERELIO ARCOSENNIUM Blood specimen (specimen) 12/14/2012 9:47 AM EDT 12/14/2012 9:53 AM EDT Narrative Resulting Agency Comment Spec In Lab Luis E Trotter MD BLOOD BANK LAB ORDER VIKAS Performing Organization Address [facility] Co de Phone Number BAR PINEDAIUM * Smear Review Report (12/14/2012 5:49 AM EDT) Smear Review Report ? [facility] ? Provider: ?? LUIS E TROTTER ?Pt. Name: ?? ANUM HENRIQUEZ ? Acc #: ?[id number] ? Pt. ? Col Date: ?? 12/14/2012 ?/Sex: ?1960,(52 years),Female ? Rec Date: ?? 12/14/2012 ?LOC: ?[facility] ? MORPHOLOGIC HEMATOLOGY: SMEAR REVIEW ? ---Clinical Information--- ? anemia ? hemolysis ? ---Results--- ? See e-DH: LAB and PATHOLOGY, Lab Results, CBC and manual differential. ? ---Interpretation--- ? 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 Thrombocytopenia. ? 12/14/12 ? PK ? 12/14/12 Verified by: ? Ramona PANTOJA, Phuc ? Hematopathologist ? (Electronic Signature) ? The attending pathologist whose signature appears on this report has ? reviewed all diagnostic slides and has edited the gross and/or ? microscopic portion of the report in rendering the final pathologic ? diagnosis. [facility] 12/14/2012 5:49 AM EDT Luis E Trotter MD PATHOLOGY/CYTOLOGY O RDERABLES CERNER MILLENNIUM * (ABNORMAL) Differential, Automated (12/14/2012 5:49 AM EDT) Neutrophils % 69.0 34.0 - 71.0 % CERNER MILLENNIUM Neutr Abs (ANC) 5.70 1.50 - 6.30 x10(3)/mc L CERNER MILLENNIUM Lymphocytes % 17.3(L) 19.0 - 53.0 % CERNER MILLENNIUM Lymphocytes Abs 1.4 1.0 - 3.6 x10(3)/mc L CERNER MILLENNIUM Monocytes % 9.7 4.0 - 13.0 % CERNER MILLENNIUM Monocyte Abs 0.8 0.2 - 1.0 x10(3)/mc L CERNER MILLENNIUM Eosinophils % 2.4 0.0 - 7.0 % CERNER MILLENNIUM Eosinophils Abs 0.2 0.0 - 0.5 x10(3)/mc L CERNER MILLENNIUM Basophils % 0.5 0.0 - 2.0 % CERNER MILLENNIUM Basophils Abs 0.0 0.0 - 0.2 x10(3)/mc L CERNER MILLENNIUM Immature Gran % 1.10(H) 0.00 - 0.66 % CERNER MILLENNIUM Comment: Immature granulocytes(IG's)percentage and absolute count will include metamyelocytes, myelocytes, and promyelocytes. Blood smears from CBCs yielding IG's will be scanned manually for concordance. If this scan disagrees with the automated IG or if promyelocytes are noted, a manual differential will be performed. Petty Gran Abs 0.09(H) 0.00 - 0.05 x10(3)/mc L CERNER MILLENNIUM Blood specimen (specimen) 12/14/2012 5:49 AM EDT 12/14/2012 5:58 AM EDT Luis E Trotter MD HEMATOLOGY ORDERABLE S CERNER MILLENNIUM * Scan, Peripheral Blood (12/14/2012 5:49 AM EDT) Plat Estimate Decreased CERNER MILLENNIUM RBC Morphology Abnormal CERNE R MILLENNIUM Ovalocytes 1-5 /HPF CERNER MILLENNIUM Schistocytes 1-5 /HPF CERNER MILLENNIUM Sunshine Cells 6-10 /HPF CERNER MILLENNIUM Blood specimen (specimen) 12/14/2012 5:49 AM EDT 12/14/2012 5:58 AM EDT Narrative Resulting Agency Comment Spec In Lab Luis E Trotter MD HEMATOLOGY ORDERABLE S CERNER MILLENNIUM * (ABNORMAL) Basic Metabolic Panel (non-fasting) (12/14/2012 5:49 AM EDT) Glucose Lvl 113 60 - 199 mg/dL CERNER MILLENNIUM Comment:Diabetes: >=200 mg/d L plus symptoms BUN 18 8 - 18 mg/dL CERNER MILLENNIUM Creatinine 1.74(H) 0.70 - 1.20 mg/dL CERNER MILLENNIUM Comment: Please note that the pediatric reference intervals supplied above were not validated [place] [facility] Results from pediatric patients should be interpreted in conjunction to the patient's age, height and muscle mass. Sodium 138 135 - 145 mmol/L CERNER MILLENNIUM Potassium 3.7 3.5 - 5.0 mmol/L CERNER MILLENNIUM Comment: Please note: ??Patients with WBC >100,000 may have falsely elevated Potassium levels. ??For accurate Potassium quantification in these patients send serum separator tube (gold top) for subsequent determinations. ??Contact the Clinical Chemistry Laboratory if there are any questions. Chloride 114(H) 98 - 107 mmol/L CERNER MILLENNIUM CO2 19(L) 22 - 31 mmol/L CERNER MILLENNIUM Anion Gap 5 5 - 15 mmol/L CERNER MILLENNIUM Calcium 7.8(L) 8.5 - 10.5 mg/dL CERNER MILLENNIUM Estimated GFR 30(L) >=60 CERNER MILLENNIUM Comment: This estimated GFR [...] internet browser. http://www.nkdep.nih.gov/lab-evaluation.shtml http://www.kidney.org/professionals/ Blood specimen (specimen) 12/14/2012 5:49 AM EDT 12/14/2012 5:58 AM EDT Narrative Resulting Agency Comment Spec In Lab Luis E Trotter MD CHEMISTRY ORDERABLES CERELIO MILLENNIUM * (ABNORMAL) CBC (with Diff) (12/14/2012 5:49 AM EDT) WBC 8.3 4.0 - 10.0 x10(3)/mcL CERNER MILLENNIUM RBC 3.74(L) 3.93 - 5.22 x10(6)/mcL CERNER MILLENNIUM Hemoglobin 10.8(L) 11.2 - 15.7 gm/dL CERNER MILLENNIUM Hematocrit 31.8(L) 34.0 - 45.0 % CERNER MILLENNIUM MCV 85.0 79.0 - 94.0 fL CERNER MILLENNIUM MCH 28.9 26.6 - 32.2 pg CERNER MILLENNIUM MCHC 34.0 32.0 - 36.5 gm/dL CERNER MILLENNIUM Platelets 44(L) 145 - 370 x10(3)/mcL CERNER MILLENNIUM RDWSD 42.3 35.0 - 46.0 fL CERNER MILLENNIUM RDWCV 13.7 10.9 - 14.4 % CERNER MILLENNIUM MPV 11.3 9.0 - 12.0 fL CERNER MILLENNIUM Blood specimen (specimen) 12/14/2012 5:49 AM EDT 12/14/2012 5:58 AM EDT Narrative Resulting Agency Comment Spec In Lab Luis E Trotter MD HEMATOLOGY ORDERABLE S BAR ARCOSALEJOIUM * Peripheral Smear Review (12/14/2012 5:49 AM EDT) Periph Smear Rev See Comment [facility] Comment: When completed by the Pathologist, report [id number] will display under Hematopathology Reports. Blood specimen (specimen) 12/14/2012 5:49 AM EDT 12/14/2012 5:58 AM EDT Narrative Resulting Agency Comment Spec In Lab Luis E Trotter MD HEMATOLOGY ORDERABLE S Performing Organization Address [facility] Co de Phone Number [facility] * (ABNORMAL) Lactate Dehydrogenase (12/14/2012 2:16 AM EDT) LDH 672(H) 110 - 220 unit/L [facility] Blood specimen (specimen) 12/14/2012 2:16 AM EDT 12/14/2012 2:41 AM EDT Narrative Resulting Agency Comment Spec In Lab Luis E Trotter MD CHEMISTRY ORDERABLES Performing Organization Address [facility] de Phone Number [facility] * Proteinase-3 Antibody (12/13/2012 10:42 PM EDT) PR3 Ab 3.7 <=20.0 unit(s) [facility] Blood specimen (specimen) 12/13/2012 10:42 PM EDT 12/17/2012 8:07 AM EDT Narrative Resulting Agency Comment Spec In Lab Luis E Trotter MD CHEMISTRY ORDERABLES Performing Organization Address [facility] Co de Phone Number [facility] * Myeloperoxidase Ab (12/13/2012 10:42 PM EDT) MPO Ab 3.1 <=20.0 unit(s) [facility] Blood specimen (specimen) 12/13/2012 10:42 PM EDT 12/17/2012 8:07 AM EDT Narrative Resulting Agency Comment Spec In Lab Luis E Trotter MD CHEMISTRY ORDERABLES Performing Organization Address [facility] Co de Phone Number [facility] * Cytoplasmic Neutrophilic Ab (12/13/2012 10:42 PM EDT) Pathologist [facility] C-ANCA Negative Negative [facility] Comment: Test Performed by: [place] [address] Channel Opener: Tulio Luna III, M.D. P-ANCA Negative Negative [facility] [facility] Comment: Negative for cANCA and pANCA patterns by immunofluorescence. Test Performed by: [place] [address] Channel Opener: Tulio Luna III, M.D. Blood specimen (specimen) 12/13/2012 10:42 PM EDT 12/17/2012 8:14 AM EDT Narrative Resulting Agency Comment Spec In Lab Luis E Trotter MD CHEMISTRY ORDERABLES Performing Organization Address [facility] Co de Phone Number [facility] * Thyroid Stimulating Immunoglobulin (12/13/2012 10:42 PM EDT) Pathologist [facility] <1.0 <=1.3 TSI index [facility] Comment: Test Performed by: [place] [address] Channel Opener: Tulio Luna III, M.D. Blood specimen (specimen) 12/13/2012 10:42 PM EDT 12/17/2012 8:14 AM EDT Narrative Resulting Agency Comment Spec In Lab Luis E Trotter MD IMMUNOLOGY ORDERABLE S Performing Organization Address [facility] Co de Phone Number [facility] * C1 Esterase Inhibitor, Functional (12/13/2012 10:42 PM EDT) [facility] C1 Scarlett Inh Qnt >90 % normal [facility] Comment: -- REFERENCE VALUE -- >67 (Normal) 41-67 (Equivocal) <41 (Abnormal) Test Performed by: [place] [address] Channel Opener: Tulio Luna III, M.D. Blood specimen (specimen) 12/13/2012 10:42 PM EDT 12/17/2012 8:25 AM EDT Narrative Resulting Agency Comment Spec In Lab Luis E Trotter MD CHEMISTRY ORDERABLES Performing Organization Address [facility] de Phone Number CERELIO ARCOSENNIUM * C4 Complement (12/13/2012 10:42 PM EDT) C4 Complement 10 10 - 40 mg/dL CERNER MILLENNIUM Blood specimen (specimen) 12/13/2012 10:42 PM EDT 12/13/2012 10:54 PM EDT Narrative Resulting Agency Comment Spec In Lab Luis E Trotter MD CHEMISTRY ORDERABLES Performing Organization Address [facility] de Phone Number [facility] * (ABNORMAL) C3 Complement (12/13/2012 10:42 PM EDT) C3 Complement 64(L) 90 - 180 mg/dL CERNER MILLENNIUM Blood specimen (specimen) 12/13/2012 10:42 PM EDT 12/13/2012 10:54 PM EDT Narrative Resulting Agency Comment Spec In Lab Luis E Trotter MD CHEMISTRY ORDERABLES Performing Organization Address [facility] de Phone Number [facility] * Haptoglobin (12/13/2012 10:42 PM EDT) Haptoglobin <10 30 - 200 mg/dL [facility] M[facility] Comment: Haptoglobin concentrations in newborns is low to undetectable; however, adult concentrations are usually attained by 4 months of age. ??No sex-related differences for haptoglobin have been detected. Blood specimen (specimen) 12/13/2012 10:42 PM EDT 12/13/2012 10:48 PM EDT Narrative Resulting Agency Comment Spec In Lab Luis E Trotter MD CHEMISTRY ORDERABLES [facility] * XR abdomen acute series with PA chest (12/13/2012 10:20 PM EDT) Anatomical Region Laterality Modality Abdomen, Chest N/A Radiographic Oanh ging 12/13/2012 10:2 0 PM EDT Narrative 12/14/2012 10:08 AM EDT Examination ACUTE ABD SERIES WITH PA CHEST Clinical History abdominal pain r/o obstruction or free air Comparison 12/14/2019 [id number] hours. Technique Findings There is no interval change. ??In particular, there is no significant bowel distention or air-fluid levels to suggest a high-grade mechanical obstruction. ?? There is no free subdiaphragmatic air. ??Again noted are small bilateral pleural effusions and nonspecific opacities in the lung bases. Impression No evidence of high-grade mechanical obstruction or free subdiaphragmatic air. Procedure Note Amilcar Bonner MD - 12/14/2012 Examination ACUTE ABD SERIES WITH PA CHEST Clinical History abdominal pain r/o obstruction or free air Comparison 12/14/2019 [id number] hours. Technique Findings There is no interval change. In particular, there is no significant bowel distention or air-fluid levels to suggest a high-grade mechanicalobstruction. There is no free subdiaphragmatic air. Again noted are small bilateralpleural effusions and nonspecific opacities in the lung bases. Impression No evidence of high-grade mechanical obstruction or free subdiaphragmaticair. Luis E Trotter MD IMG DX ORDERABLES * (ABNORMAL) Urinalysis with microscopic (12/13/2012 10:08 PM EDT) Glucose UA Negative Negative mg/dL CERNER MILLENNIUM Protein UA 100(A) Neg mg/dL CERNER MILLENNIUM Bilirubin UA Negative Negative mg/dL CERNER MILLENNIUM Urobilinogen UA Normal mg/dL CERN ER MILLENNIUM pH UA 6.0 5.0 - 8.0 CERNER MILLENNIUM Blood UA Moderate mg/dL CERNER MILLENNIUM Ketones UA Negative mg/dL CERNER MILLENNIUM Nitrite UA Negative CERNER MILLENNIUM Leukocytes UA Trace(A) Neg CERNER MILLENNIUM Appearance UA Clear Clear CERNER MILLENNIUM Spec [place] UA 1.014 1.002 - 1.030 CERNER MILLENNIUM Color UA Yellow Yellow CERNER MILLENNIUM RBC UA <1 0 - 4 /HPF CERNER MILLENNIUM WBC UA 3 0 - 5 /HPF CERNER MILLENNIUM Hyaline Cast UA 18(H) 0 - 2 /LPF CER NER MILLENNIUM Gran Cast UA 11(H) <=0 /LPF CERNER MILLENNIUM Urine specimen (specimen) 12/13/2012 10:08 PM EDT 12/13/2012 10:15 PM EDT Narrative Resulting Agency Comment Spec In Lab Luis E Trotter MD URINE ORDERABLES CERNER MILLENNIUM * Request for 2nd read CT abdomen & pelvis (12/13/2012 10:06 PM EDT) Anatomical Region Laterality Modality Abdomen, Pelvis Other 12/13/2012 10:0 6 PM EDT Narrative 12/14/2012 2:59 PM EDT Examination OUTSIDE CT ABDOMEN PELVIS Clinical History 52F w/ acute hemorrhagic colitis - IBD vs infection; What Modality is the exam? CT Scan; Body Part (please add comments as necessary): abdomen and pelvis; I believe a reinterpretation of this exam may alter care of Patient. Yes Comparison None Technique The patient was scanned from the diaphragm to the pubic symphysis using oral contrast and 130 mL of Omnipaque 350 IV contrast. Findings Abdomen. There are 2 small lucencies in the liver most likely representing a simple cyst (series 3 image 8). The remainder of the liver, gallbladder, biliary tree, spleen, pancreas, kidneys, and adrenal glands appear normal. ??However, there is marked thickening of the colonic wall from the cecum to the sigmoid colon. ?? There is a small amount of associated ascites. ??The findings are suggestive of pseudomembranous colitis or other form a colitis. ??The small bowel appears normal. ??No enlarged lymph nodes are seen. There is no free subdiaphragmatic air. ?? Pelvis There is a small amount of ascites in the pelvic cul-de-sac. ??There are scattered diverticula but no evidence of diverticulitis in the sigmoid colon. ?? No significant bony abnormalities are seen. Impression Marked thickening of colonic wall suggestive of pseudomembranous colitis. Small amount of ascites. Diverticulosis without evidence of diverticulitis. Procedure Note Amilcar Bonner MD - 12/14/[address] ABDOMEN PELVIS Clinical History 52F w/ acute hemorrhagic colitis - IBD vs infection; What Modality is theexam? CT Scan; Body Part (please add comments as necessary): abdomen and pelvis;I believe a reinterpretation of this exam may alter care of Patient. Yes Comparison None Technique The patient was scanned from the diaphragm to the pubic symphysis usingoral contrast and 130 mL of Omnipaque 350 IV contrast. Findings Abdomen. There are 2 small lucencies in the liver most likely representing a simplecyst (series 3 image 8). The remainder of the liver, gallbladder, biliary tree, spleen, pancreas, kidneys, and adrenal glands appear normal. However,there is marked thickening of the colonic wall from the cecum to the sigmoid colon. There is a small amount of associated ascites. The findings aresuggestive of pseudomembranous colitis or other form a colitis. The small bowel appears normal. No enlarged lymph nodes are seen. There is no freesubdiaphragmatic air. Pelvis There is a small amount of ascites in the pelvic cul-de-sac. There are scattered diverticula but no evidence of diverticulitis in the sigmoidcolon. No significant bony abnormalities are seen. Impression Marked thickening of colonic wall suggestive of pseudomembranous colitis. Small amount of ascites. Diverticulosis without evidence of diverticulitis. Luis E Trotter MD IMG OUTSIDE INTERPRE TATION ORDERABLES * (ABNORMAL) Differential, Manual (12/13/2012 10:00 PM EDT) Neutrophil % 74(H) 34 - 71 % CERNER MILLENNIUM Band % 5 0 - 12 % CERNER MILLENNIUM Lymphocyte % 12(L) 19 - 53 % CERNER MILLENNIUM Monocyte % 6 4 - 13 % CERNER MILLENNIUM Eosinophil % 3 0 - 7 % CERNER MILLENNIUM Neutrophil Abs 6.5(H) 1.5 - 6.3 x10(3)/mc L CERNER MILLENNIUM Band Abs 0.4 0.2 - 0.6 x10(3)/mc L CERNER MILLENNIUM Neutr Abs (ANC) 6.90(H) 1.50 - 6.30 x10(3)/mc L CERNER MILLENNIUM Lymphocyte Abs 1.0 1.0 - 3.6 x10(3)/mc L CERNER MILLENNIUM Monocyte Abs 0.5 0.2 - 1.0 x10(3)/mc L CERNER MILLENNIUM Eosinophil Abs 0.3 0.0 - 0.5 x10(3)/mc L CERNER MILLENNIUM Tot Diff Cell Ct 100 CERNER MILLENNIUM Plat Estimate Decreased CERNER MILLENNIUM RBC Morphology Normal CERNE R MILLENNIUM Blood specimen (specimen) 12/13/2012 10:00 PM EDT 12/13/2012 10:04 PM EDT Narrative Resulting Agency Comment Spec In Lab Luis E Trotter MD HEMATOLOGY ORDERABLE S CERNER MILLENNIUM * (ABNORMAL) Basic Metabolic Panel (non-fasting) (12/13/2012 10:00 PM EDT) Glucose Lvl 111 60 - 199 mg/dL CERNER MILLENNIUM Comment:Diabetes: >=200 mg/d L plus symptoms BUN 14 8 - 18 mg/dL CERNER MILLENNIUM Creatinine 1.45(H) 0.70 - 1.20 mg/dL CERNER MILLENNIUM Comment: Please note that the pediatric reference intervals supplied above were not validated at [facility]. Results from pediatric patients should be interpreted in conjunction to the patient's age, height and muscle mass. Sodium 138 135 - 145 mmol/L CERNER MILLENNIUM Potassium 3.8 3.5 - 5.0 mmol/L CERNER MILLENNIUM Comment: Please note: ??Patients with WBC >100,000 may have falsely elevated Potassium levels. ??For accurate Potassium quantification in these patients send serum separator tube (gold top) for subsequent determinations. ??Contact the Clinical Chemistry Laboratory if there are any questions. Chloride 113(H) 98 - 107 mmol/L CERNER MILLENNIUM CO2 18(L) 22 - 31 mmol/L CERNER MILLENNIUM Anion Gap 7 5 - 15 mmol/L CERNER MILLENNIUM Calcium 7.5(L) 8.5 - 10.5 mg/dL CERNER MILLENNIUM Estimated GFR 38(L) >=60 CERNER MILLENNIUM Comment: This estimated GFR [...] internet browser. http://www.nkdep.nih.gov/lab-evaluation.shtml http://www.kidney.org/professionals/ Blood specimen (specimen) 12/13/2012 10:00 PM EDT 12/13/2012 10:04 PM EDT Narrative Resulting Agency Comment Spec In Lab Luis E Trotter MD CHEMISTRY ORDERABLES [facility] * (ABNORMAL) CBC (with Diff) (12/13/2012 10:00 PM EDT) WBC 8.7 4.0 - 10.0 x10(3)/mcL CERNER MILLENNIUM RBC 4.02 3.93 - 5.22 x10(6)/mcL CERNER MILLENNIUM Hemoglobin 11.9 11.2 - 15.7 gm/dL CERNER MILLENNIUM Hematocrit 34.4 34.0 - 45.0 % CERNER MILLENNIUM MCV 85.6 79.0 - 94.0 fL CERNER MILLENNIUM MCH 29.6 26.6 - 32.2 pg CERNER MILLENNIUM MCHC 34.6 32.0 - 36.5 gm/dL CERNER MILLENNIUM Platelets 46(L) 145 - 370 x10(3)/mcL CERNER MILLENNIUM RDWSD 42.0 35.0 - 46.0 fL CERNER MILLENNIUM RDWCV 13.4 10.9 - 14.4 % CERNER MILLENNIUM MPV 10.5 9.0 - 12.0 fL CERNER MILLENNIUM Blood specimen (specimen) 12/13/2012 10:00 PM EDT 12/13/2012 10:04 PM EDT Narrative Resulting Agency Comment Spec In Lab Luis E Trotter MD HEMATOLOGY ORDERABLE S [facility] * Lactate Dehydrogenase (12/13/2012 10:00 PM EDT) LDH Not Perf 110 - 220 unit/L CERNER MILLENNIUM Comment: Unable to quantitate due to sample hemolysis. ??Sample redraw suggested. called to gianna bowens at 12/13/12 23:00 by lani Blood specimen (specimen) 12/13/2012 10:00 PM EDT 12/13/2012 10:04 PM EDT Narrative Resulting Agency Comment Spec In Lab Luis E Trotter MD CHEMISTRY ORDERABLES Performing Organization Address [facility] Co de Phone Number [facility] * Thrombin time (12/13/2012 10:00 PM EDT) Thrombin Time 19 15 - 20 sec CERNER ISRRAELENNIUM Blood specimen (specimen) 12/13/2012 10:00 PM EDT 12/13/2012 10:04 PM EDT Narrative Resulting Agency Comment Spec In Lab Luis E Trotter MD HEMATOLOGY ORDERABLE S Performing Organization Address [facility] Co de Phone Number [facility] * Fibrinogen (12/13/2012 10:00 PM EDT) Fibrinogen 425 175 - 450 mg/dL CERNER MILLENNIUM Blood specimen (specimen) 12/13/2012 10:00 PM EDT 12/13/2012 10:04 PM EDT Narrative Resulting Agency Comment Spec In Lab Luis E Trotter MD HEMATOLOGY ORDERABLE S [facility] * APTT (12/13/2012 10:00 PM EDT) PTT 27 25 - 35 sec CERNER MILLENNIUM Comment: Recommended therapeutic PTT range for full dose unfractionated heparin is 80-114 seconds. Blood specimen (specimen) 12/13/2012 10:00 PM EDT 12/13/2012 10:04 PM EDT Narrative Resulting Agency Comment Spec In Lab Luis E Trotter MD HEMATOLOGY ORDERABLE S Performing Organization Address [facility] de Phone Number BAR ARCOSENNIUM * (ABNORMAL) Prothrombin Time (12/13/2012 10:00 PM EDT) PT 16.5(H) 12.0 - 15.0 sec CERNER MILLENNIUM Comment: [facility] Transfusion Committee Guidelines: INR less than 2.0, PTT less than OR equal to 43.5 seconds, or Fibrinogen greater than or equal to 100 mg/dl indicate adequate procoagulant activity for hemostasis in patients without underlying bleeding disorders. INR 1.3(H) 0.9 - 1.1 CERNER MILLENNIUM Blood specimen (specimen) 12/13/2012 10:00 PM EDT 12/13/2012 10:04 PM EDT Narrative Resulting Agency Comment Spec In Lab Luis E Trotter MD HEMATOLOGY ORDERABLE S Performing Organization Address [facility] de Phone Number CERELIO ARCOSENNIUM * (ABNORMAL) Hepatic Function Panel (12/13/2012 10:00 PM EDT) Total Protein 4.6(L) 6.4 - 8.3 gm/dL CERNER MILLENNIUM Albumin 2.3(L) 3.2 - 5.2 gm/dL CERNER MILLENNIUM AST 30 0 - 30 unit/L CERNER MILLENNIUM ALT 10 0 - 30 unit/L CERNER MILLENNIUM Alk Phos 29(L) 40 - 104 unit/L CERNER MILLENNIUM Total Bilirubin 1.0 0.2 - 1.3 mg/dL CERNER MILLENNIUM Bili, Direct 0.2 0.0 - 0.3 mg/dL CERNER MILLENNIUM Blood specimen (specimen) 12/13/2012 10:00 PM EDT 12/13/2012 10:04 PM EDT Narrative Resulting Agency Comment Spec In Lab Luis E Trotter MD CHEMISTRY ORDERABLES Performing Organization Address [facility] Co de Phone Number BAR NOE * (ABNORMAL) Phosphorus (12/13/2012 10:00 PM EDT) Phosphorus 1.4(Critic al) 2.5 - 4.5 mg/dL [facility] Comment: Result rechecked. Called by: lani, Read back by: gianna bowens, Date/Time:12/13/12 23:00. Blood specimen (specimen) 12/13/2012 10:00 PM EDT 12/13/2012 10:04 PM EDT Narrative Resulting Agency Comment Spec In Lab Luis E Trotter MD CHEMISTRY ORDERABLES Performing Organization Address [facility] Co de Phone Number BAR NOE * (ABNORMAL) Magnesium (12/13/2012 10:00 PM EDT) Magnesium 0.55(L) 0.69 - 1.07 mmol/L [facility] PINEDAIUM Blood specimen (specimen) 12/13/2012 10:00 PM EDT 12/13/2012 10:04 PM EDT Narrative Resulting Agency Comment Spec In Lab Luis E Trotter MD CHEMISTRY ORDERABLES Performing Organization Address [facility] Co de Phone Number BAR NOE documented in this encounter Visit Diagnoses Diagnosis HUS (hemolytic uremic syndrome)- Primary Hemolytic-uremic syndrome 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 Thrombocytopenia Thrombocytopenia, unspecified Hemorrhagic colitis Other and unspecified noninfectious gastroenteritis and colitis Hypoxia Hypoxemia MRSA bacteremia Bacteremia HUS (hemolytic uremic syndrome) Hemolytic-uremic syndrome Hemorrhagic colitis Other and unspecified noninfectious gastroenteritis and colitis Thrombocytopenia Thrombocytopenia, unspecified Hyperthyroidism Thyrotoxicosis without mention of goiter or other cause, without mention of thyrotoxic crisis or storm 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 Altered mental status Clonus Abnormal involuntary movements TACO (transfusion associated circulatory overload) Transfusion associated circulatory overload MRSA bacteremia Bacteremia documented in this encounter Administered Medications Inactive Administered Medications - up to 3 most recent administrations Medication Order MAR Action Action Date Dose Rate Site acetaminophen (TYLENOL) tablet 1,000 mg 1,000 mg, Oral, EVERY 6 HOURS PRN, Starting on Sun12/27/12 at 1019, Until Sun12/27/12 at 2036, Pain, Fever, for MILD pain, Do not exceed 4,000 mg in 24 hours, Routine Given 12/27/2012 10:43 AM EDT 1,000 mg acetaminophen (TYLENOL) tablet 500 mg 500 mg, Oral, EVERY 6 HOURS PRN, Starting on Sun12/13/12 at 2113, Until Sun12/27/12 at 1020, Pain, Fever, for MILD pain, Do not exceed 4,000 mg in 24 hours, Routine Given 12/26/2012 3:38 PM EDT 500 mg Given 12/25/2012 6:56 PM EDT 500 mg Given 12/24/2012 9:24 PM EDT 500 mg alteplase (CATHFLO) injection 0.1-2 mg 0.1-2 mg (0.1-2 mL), INTRA-CATHETER, ONCE IN DIALYSIS, 1 dose, On Sun12/22/12 at 0600, Catheter lock per catheter specified fill volume. RN will call prior to HD on Sunday (Cathflo has 8 hr expiration out of freezer), Dialysis (Intra-Procedure), Routine Given 12/22/2012 12:30 PM EDT 2 mg alteplase (CATHFLO) injection 2 mg 2 mg, INTRA-CATHETER, ONCE IN DIALYSIS, 1 dose, On Sun12/21/12 at 1915, Catheter lock per catheter specified fill volume., Routine Given 12/21/2012 10:00 PM EDT 2 mg alteplase (CATHFLO) injection 2 mg 2 mg, INTRA-CATHETER, ONCE IN DIALYSIS, 1 dose, On Sun12/23/12 at 0600, Catheter lock per catheter specified fill volume. Call pharmacy when needed, Dialysis (Intra-Procedure), Routine Given by Other 12/23/2012 6:00 AM EDT 2 mg caffeine (VIVARIN) tablet 100 mg 100 mg, Oral, ONCE, On Sun12/27/12 at 1230, 1 dose Given 12/27/2012 1:06 PM EDT 100 mg chlorhexidine (PERIDEX) 0.12 % oral solution 15 mL 15 mL, Oral, 2 TIMES DAILY, First dose on Sun12/13/12 at 2130, Until Discontinued, [place] teeth, Routine Given 12/25/2012 9:44 AM EDT 15 mLs Given 12/24/2012 9:00 PM EDT 15 mLs Given 12/23/2012 9:00 PM EDT 15 mLs ciprofloxacin (CIPRO) 200mg in dextrose 5% 100mL 200 mg, Intravenous, EVERY 12 HOURS, First dose on Sun12/13/12 at 2300, Until Discontinued, Administer over 60 Minutes, Indication for (Active or Suspected): for GI/Intra-abdominal, Restricted Antibiotic: Please indicate the most appropriate choice: Off hour exemption (11PM - 7AM) Given 12/15/2012 11:00 PM EDT 200 mg 100 mL/ hr Given 12/15/2012 12:04 PM EDT 200 mg 100 mL/hr Given 12/15/2012 12:20 AM EDT 200 mg 100 mL/hr dextrose 5% and lactated ringers infusion 125 mL/hr, Intravenous, CONTINUOUS, Starting on 12/14/12 at 0845, Until 12/14/12 at 1537 Rate/Dose Verify 12/14/2012 11:45 AM EDT 125 mL/hr 125 mL/hr Rate/Dose Verify 12/14/2012 9:00 AM EDT 125 mL/hr 125 mL/ hr New Bag 12/14/2012 8:35 AM EDT 125 mL/hr 125 mL/hr diphenhydrAMINE (BENADRYL) injection 25 mg 25 mg, Intravenous, ONCE, 1 dose, On 12/14/12 at 2000, Routine Given 12/14/2012 7:56 PM EDT 25 mg diphenhydrAMINE (BENADRYL) injection 25 mg 25 mg, Intravenous, DAILY PRN, Starting on 12/15/12 at 0432, Until 12/15/12 at 1143, pharesis, Routine Given 12/15/2012 10:19 AM EDT 25 mg diphenhydrAMINE (BENADRYL) injection 25 mg 25 mg, Intravenous, ONCE, 1 dose, On 12/15/12 at 1145, STAT Given 12/15/2012 11:19 AM EDT 25 mg diphenhydrAMINE (BENADRYL) injection 25 mg 25 mg, Intravenous, EVERY 6 HOURS PRN, Starting on Sun12/19/12 at 1038, Until Sun12/21/12 at 0943, Itching, Please administer 30 minutes before plasma administration during therapeutic plasma exchange, Routine Given 12/19/2012 10:40 AM EDT 25 mg diphenhydrAMINE (BENADRYL) injection 50 mg 50 mg, Intravenous, DAILY PRN, Starting on Sun12/16/12 at 0000, Until Sun12/19/12 at 1039, Prior to plasma exchange, Routine Given 12/18/2012 2:55 PM EDT 50 m g Given 12/17/2012 8:38 AM EDT 50 mg Given 12/16/2012 8:11 AM EDT 50 mg enoxaparin (LOVENOX) injection 70 mg 70 mg (1 mg/kg/dose ? 70.2 kg), Subcutaneous, EVERY 24 HOURS SCHEDULED (Daily), First dose on Sun12/25/12 at 1530, Until Discontinued, STAT Given 12/27/2012 9:00 AM EDT 70 mg Given 12/26/2012 9:56 AM EDT 70 mg Given 12/25/2012 5:20 PM EDT 70 mg esomeprazole (NEXIUM) capsule 40 mg 40 mg, Oral, DAILY, First dose on Sun12/14/12 at 0900, Until Discontinued, If unable to take PO, may give IV, Routine Given 12/19/2012 9:03 AM EDT 40 mg Given 12/17/2012 8:34 AM EDT 40 mg Given 12/16/2012 1:02 PM EDT 40 mg esomeprazole (NEXIUM) capsule 40 mg 40 mg, Oral, 2 TIMES DAILY, First dose on Sun12/26/12 at 1100, Until Discontinued, Routine Given 12/27/2012 9:00 AM EDT 40 mg Given 12/26/2012 8:31 PM EDT 40 mg esomeprazole (NEXIUM) injection 40 mg 40 mg, Intravenous, DAILY, First dose on Sun12/14/12 at 0900, Until Discontinued, Routine Given 12/18/2012 9:12 AM EDT 40 mg esomeprazole (NEXIUM) injection 40 mg 40 mg, Intravenous, 2 TIMES DAILY, First dose on Sun12/20/12 at 1100, Until Discontinued Given 12/26/2012 9:57 AM EDT 4 0 mg Given 12/25/2012 9:25 PM EDT 40 mg Given 12/25/2012 10:37 AM EDT 40 mg fentaNYL 50mcg/mL injection 25-50 mcg, Intravenous, EVERY 5 MIN PRN, Starting on 12/14/12 at 1709, Until 12/14/12 at 1746, Pain, per unit protocol, Angio/IR (Intra-Procedure), Routine Given 12/14/2012 5:20 PM EDT 100 mcg folic acid (FOLVITE) 1 mg/10 mL oral liquid 1 mg 1 mg, Oral, DAILY, First dose on Sun12/19/12 at 1200, Until Discontinued Given 12/25/2012 9:44 AM EDT 1 mg Given 12/24/2012 8:02 AM EDT 1 mg Given 12/23/2012 1:16 PM EDT 1 mg folic acid (FOLVITE) tablet 1,000 mcg 1,000 mcg (1 mg), Oral, DAILY, First dose on Sun12/26/12 at 1100, Until Discontinued, Routine Given 12/27/2012 9:00 AM EDT 1,000 mcg Given 12/26/2012 11:42 AM EDT 1,000 mcg furosemide (LASIX) injection 40 mg 40 mg, Intravenous, ONCE, 1 dose, On Sun12/16/12 at 1415 Given 12/16/2012 4:59 PM EDT 40 mg furosemide (LASIX) injection 40 mg 40 mg, Intravenous, ONCE, 1 dose, On Tu12/17/12 at 1200 Given 12/17/2012 1:28 PM EDT 40 mg furosemide (LASIX) injection 40 mg 40 mg, Intravenous, ONCE, 1 dose, On Sun12/18/12 at 1130 Given 12/18/2012 6:08 PM EDT 40 mg furosemide (LASIX) injection 40 mg 40 mg, Intravenous, ONCE, 1 dose, On Ninfa 12/19/12 at 1115 Given 12/19/2012 12:20 PM EDT 40 mg furosemide (LASIX) injection 40 mg 40 mg, Intravenous, ONCE, 1 dose, On Sun12/20/12 at 1015 Given 12/20/2012 12:08 PM EDT 40 mg furosemide (LASIX) injection 40 mg 40 mg, Intravenous, ONCE, 1 dose, On Sun12/20/12 at 1815 Given 12/20/2012 6:32 PM EDT 40 mg furosemide (LASIX) injection 40 mg 40 mg, Intravenous, ONCE, 1 dose, On Sun12/21/12 at 0930 Given 12/21/2012 10:47 AM EDT 40 mg gadopentetate dimeglumine (MAGNEVIST) 10 mmol/20 mL (469.01 mg/mL) injection 15.16 mL 15.16 mL (0.2 mL/kg/dose ? 75.8 kg), Intravenous, ONCE PRN, 1 dose, Starting on Sun12/21/12 at 1705, Until Sun12/21/12 at 1709, Per Protocol, Routine Given 12/21/2012 5:09 PM EDT 13 mL s haloperidol lactate (HALDOL) injection 0.5 mg 0.5 mg, Intravenous, EVERY 6 HOURS PRN, Starting on Sun12/21/12 at 1223, Until Sun12/27/12 at 2036, Agitation, Routine Given 12/25/2012 9:45 PM EDT 0.5 mg Given 12/25/2012 2:42 AM EDT 0.5 mg Given 12/24/2012 9:11 PM EDT 0.5 mg hydrocortisone 1 % cream Topical, 2 TIMES DAILY, First dose on Sun12/22/12 at 1245, Until Discontinued Given 12/27/2012 9:00 AM EDT Given 12/26/2012 8:31 PM EDT Given 12/26/2012 9:00 AM EDT HYDROmorphone (DILAUDID) injection 0.2-0.4 mg 0.2-0.4 mg, Intravenous, EVERY 4 HOURS PRN, Starting on Sun12/13/12 at 2115, Until Sun12/13/12 at 2145, Pain, Routine Given 12/13/2012 9:36 PM EDT 0.4 mg HYDROmorphone (DILAUDID) injection 0.2-0.4 mg 0.2-0.4 mg, Intravenous, EVERY 2 HOURS PRN, Starting on Sun12/13/12 at 2200, Until Sun12/17/12 at 1504, Pain, Routine Given 12/16/2012 8:05 AM EDT 0.4 mg Given 12/15/2012 5:31 PM EDT 0.4 mg Given 12/15/2012 9:33 AM EDT 0.4 mg HYDROmorphone (DILAUDID) injection 0.2-0.4 mg 0.2-0.4 mg, Intravenous, EVERY 4 HOURS PRN, Starting on Sun12/17/12 at 1515, Until Sun12/21/12 at 0943, Pain, Routine Given 12/20/2012 1:43 AM EDT 0.4 mg Given 12/19/2012 8:58 PM EDT 0.4 mg Given 12/19/2012 4:59 PM EDT 0.2 mg LORazepam (ATIVAN) injection 0.5 mg 0.5 mg, Intravenous, EVERY 4 HOURS PRN, Starting on Sun12/20/12 at 1801, Until Sun12/21/12 at 0943, Anxiety, For active anxiety, Routine Given 12/21/2012 4:51 AM EDT 0.5 mg Given 12/20/2012 11:41 PM EDT 0.5 mg Given 12/20/2012 6:24 PM EDT 0.5 mg LORazepam (ATIVAN) injection 1 mg 1 mg, Intravenous, ONCE, 1 dose, On Sun12/20/12 at 1415, Routine Given 12/20/2012 2:04 PM EDT 1 mg LORazepam (ATIVAN) tablet 1 mg 1 mg, Oral, ONCE PRN, 1 dose, Starting on Sun12/16/12 at 1957, Until Sun12/16/12 at 2000, Anxiety, Routine Given 12/16/2012 8:00 PM EDT 1 mg magnesium oxide (MAG-OX) tablet 400 mg 400 mg, Oral, 2 TIMES DAILY, First dose on Sun12/21/12 at 1000, Until Discontinued, Routine Given 12/27/2012 9:00 AM EDT 400 mg Given 12/26/2012 8:31 PM EDT 400 mg Given 12/26/2012 9:57 AM EDT 400 mg magnesium sulfate 2 g in sterile water 50 mL 2 g, Intravenous, ONCE, 1 dose, On Sun12/13/12 at 2330, Administer over 120 Minutes Given 12/14/2012 12:22 AM EDT 2 g 25 mL/hr magnesium sulfate 2 g in sterile water 50 mL 2 g, Intravenous, ONCE, 1 dose, On Sun12/15/12 at 1515, Administer over 120 Minutes Given 12/15/2012 4:27 PM EDT 2 g 25 mL/hr methimazole (TAPAZOLE) tablet 5 mg 5 mg, Oral, DAILY, First dose on Sun12/14/12 at 0900, Until Discontinued, Routine Given 12/16/2012 1:03 PM EDT 5 mg Given 12/15/2012 9:22 AM EDT 5 mg Given 12/14/2012 9:00 AM EDT 5 mg metroNIDAZOLE (FLAGYL) 500 mg in sodium chloride 0.9% 100 mL 500 mg, Intravenous, EVERY 8 HOURS SCHEDULED, First dose on Sun12/13/12 at 2200, Until Discontinued, Administer over 30 Minutes, Indication for (Active or Suspected): for GI/Intra-abdominal Given 12/16/2012 2:00 PM EDT 500 mg 200 mL/h r Given 12/16/2012 5:48 AM EDT 500 mg 200 mL/hr Given 12/15/2012 10:00 PM EDT 500 mg 200 mL/hr morphine 2 mg/mL carpuject 2 mg 2 mg, Intravenous, EVERY 3 HOURS PRN, Starting on Sun12/25/12 at 1451, Until Sun12/27/12 at 203, Pain, mild pain, May give 2 mg in 30 minutes times 1 if pain not relieved., Routine Given 12/27/2012 4: 16 AM EDT 2 mg Given 12/27/2012 3:50 AM EDT 2 mg Given 12/26/2012 8:46 PM EDT 2 mg morphine 4 mg/mL carpuject 4 mg 4 mg, Intravenous, EVERY 3 HOURS PRN, Starting on Sun12/25/12 at 1451, Until Sun12/27/12 at 2035, Pain, moderate pain, May give 2 mg in 30 minutes times 1 if pain not relieved., Routine Given 12/27/2012 7:50 AM EDT 4 mg multivitamin (THERAGRAN) tablet 1 tablet 1 tablet, Oral, DAILY, First dose on Sun12/23/12 at 1700, Until Discontinued Given 12/27/2012 9:00 AM EDT 1 tablet Given 12/26/2012 9:57 AM EDT 1 tablet Given 12/25/2012 9:44 AM EDT 1 tablet ondansetron (ZOFRAN) injection 4 mg 4 mg, Intravenous, EVERY 8 HOURS PRN, Starting on Sun12/13/12 at 2113, Until Ninfa 12/19/12 at 1225, Nausea, May repeat times one in 30 minutes if ineffective Given 12/19/2012 6:45 AM EDT 4 mg Given 12/18/2012 1:21 PM EDT 4 mg Given 12/17/2012 5:40 PM EDT 4 mg ondansetron (ZOFRAN) injection 4 mg 4 mg, Intravenous, EVERY 8 HOURS PRN, Starting on Ninfa 12/19/12 at 1230, Until Sun12/27/12 at 2036, Nausea, May repeat times one in 30 minutes if ineffective Given 12/27/2012 6:51 AM EDT 4 mg Given 12/22/2012 10:19 PM EDT 4 mg Given 12/19/2012 5:06 PM EDT 4 mg ondansetron (ZOFRAN) tablet 4 mg 4 mg, Oral, EVERY 8 HOURS PRN, Starting on Sun12/13/12 at 2113, Until Ninfa 12/19/12 at 1225, Nausea, Vomiting, If multiple antiemetics are ordered, use ondansetron first. PO Preferred. If patient unable to take PO, may give IV if ordered. May repeat times one in 45 minutes if ineffective. , Routine Given 12/17/2012 8:34 AM EDT 4 mg Given 12/15/2012 5:32 PM EDT 4 mg Given 12/15/2012 9:33 AM EDT 4 mg ondansetron (ZOFRAN) tablet 4 mg 4 mg, Oral, EVERY 4 HOURS PRN, Starting on Sun12/19/12 at 1230, Until Sun12/27/12 at 2036, Nausea, Vomiting, If multiple antiemetics are ordered, use ondansetron first. PO Preferred. If patient unable to take PO, may give IV if ordered. May repeat times one in 45 minutes if ineffective., Routine Given 12/26/2012 11:41 AM EDT 4 mg Given 12/24/2012 3:51 PM EDT 4 mg Given 12/23/2012 12:55 PM EDT 4 mg ondansetron (ZOFRAN-ODT) oral disintegrating tablet 4 mg 4 mg, Oral, ONCE, 1 dose, On 12/14/12 at 1900, Routine Given 12/14/2012 6:44 PM EDT 4 mg piperacillin-tazobactam (ZOSYN) 3.375 g in dextrose 5% 50 mL 3.375 g, Intravenous, EVERY 8 HOURS, First dose on Sun12/20/12 at 1800, Until Discontinued, Administer over 4 Hours, Indication for (Active or Suspected): for Pneumonia ([facility]) Given 12/24/2012 12:57 PM EDT 3.375 g 12.5 m L/hr Given 12/24/2012 3:40 AM EDT 3.375 g 12.5 mL/hr Given 12/23/2012 7:50 PM EDT 3.375 g 12.5 mL/hr potassium chloride (K-DUR/KLOR-CON) extended release tablet 20 mEq 20 mEq, Oral, 2 TIMES DAILY, 4 doses, First dose on Sun12/21/12 at 0930, Last dose on Sun12/22/12 at 2100, 20 mEq tablet may be dissolved in water for administration, Routine Given 12/22/2012 8:28 PM EDT 20 mEq Given 12/22/2012 1:41 PM EDT 20 mEq Given 12/21/2012 10:20 PM EDT 20 mEq potassium chloride (K-DUR/KLOR-CON) extended release tablet 40 mEq 40 mEq, Oral, 2 TIMES DAILY, 2 doses, First dose on Sun12/17/12 at 1200, Last dose on Sun12/17/12 at 2100, 20 mEq tablet may be dissolved in water for administration, Routine Given 12/17/2012 8:54 PM EDT 40 mEq Given 12/17/2012 1:29 PM EDT 40 mEq potassium chloride 20 mEq in 100 mL 20 mEq, Intravenous, EVERY HOUR, 4 doses, First dose on Sun12/15/12 at 1600, Last dose on Sun12/15/12 at 1900 Given 12/16/2012 12:20 AM EDT 20 mEq Given 12/15/2012 10:35 PM EDT 20 mEq Given 12/15/2012 7:55 PM EDT 20 mEq potassium chloride 20 mEq in 100 mL 20 mEq, Intravenous, EVERY 2 HOURS, 2 doses, First dose on Sun12/17/12 at 1200, Last dose on Sun12/17/12 at 1400 Given 12/17/2012 2:39 PM EDT 20 mEq Given 12/17/2012 1:29 PM EDT 20 mEq potassium chloride 20 mEq in 100 mL 20 mEq, Intravenous, EVERY 2 HOURS, 2 doses, First dose on Sun12/20/12 at 1015, Last dose on Sun12/20/12 at 1215 Given 12/20/2012 1:59 PM EDT 20 mEq Given 12/20/2012 12:43 PM EDT 20 mEq potassium chloride 20 mEq in 100 mL 20 mEq, Intravenous, EVERY 2 HOURS, 2 doses, First dose on Sun12/21/12 at 1000, Last dose on Sun12/21/12 at 1200 Given 12/21/2012 12:28 PM EDT 20 mEq Given 12/21/2012 9:54 AM EDT 20 mEq prochlorperazine (COMPAZINE) injection 10 mg 10 mg, Intravenous, EVERY 6 HOURS PRN, Starting on Sun12/13/12 at 2145, Until Sun12/27/12 at 2035, Nausea, Nausea/Vomiting, Routine Given 12/27/2012 7:45 AM EDT 10 mg Given 12/14/2012 11:15 AM EDT 10 mg Given 12/14/2012 6:00 AM EDT 10 mg prochlorperazine (COMPAZINE) tablet 10 mg 10 mg, Oral, EVERY 6 HOURS PRN, Starting on Sun12/13/12 at 2145, Until Sun12/27/12 at 2035, Nausea, Nausea/Vomiting, If unable to take PO, may give IV, Routine Given 12/19/2012 7:53 AM EDT 10 mg Given 12/15/2012 11:12 PM EDT 10 mg Given 12/15/2012 5:56 AM EDT 10 mg sodium chloride 0.9 % flush 5 mL 5 mL, Intravenous, EVERY 12 HOURS, First dose on Sun12/13/12 at 2130, Until Discontinued Given 12/27/2012 9:30 AM EDT 5 mLs Given 12/26/2012 8:31 PM EDT 5 mLs Given 12/26/2012 9:30 AM EDT 5 mLs sodium chloride 0.9% infusion 1,000 mL, at 100 mL/hr, Intravenous, CONTINUOUS, Starting on Sun12/13/12 at 2130, Until Sun12/13/12 at 2206 New Bag 12/13/2012 9:36 PM EDT 1,000 mLs 100 mL /hr sodium chloride 0.9% infusion 150 mL/hr, Intravenous, CONTINUOUS, Starting on Sun12/13/12 at 2230, Until Sun12/14/12 at 0729 New Bag 12/14/2012 6:30 AM EDT 150 mL/hr 150 mL/hr New Bag 12/13/2012 10:24 PM EDT 150 mL/hr 150 mL/hr sodium chloride 0.9% infusion 115 mL/hr, Intravenous, CONTINUOUS, Starting on Sun12/15/12 at 0915, Until Sun12/16/12 at 1058 Rate/Dose Change 12/15/2012 10:31 PM EDT 115 mL/hr 115 mL/hr New Bag 12/15/2012 10:45 AM EDT 75 mL/hr 75 mL/hr New Bag 12/15/2012 9:22 AM EDT 75 mL/hr 75 mL/hr sodium phosphate 15 mMol in sodium chloride 0.9% 150 mL 15 mmol, Intravenous, ONCE, 1 dose, On Sun12/13/12 at 2330, Administer over 4 Hours, Administer over 4-6 hours Given 12/14/2012 12:22 AM EDT 15 mmol 37.5 mL/hr vancomycin (VANCOCIN) 500 mg in sodium chloride 0.9% 110 mL 500 mg, Intravenous, at 73.3 mL/hr, ONCE, 1 dose, On Sun12/22/12 at 1200, This medication may have an associated drug lab level. Please check for lab orders, Routine Given 12/22/2012 1:48 PM EDT 500 mg 73.3 mL/hr vancomycin 1 g in dextrose 5% 200 mL 1,000 mg (1 g), Intravenous, EVERY 24 HOURS, First dose (after last modification) on Sun12/20/12 at 1900, Until Discontinued, This medication may have an associated drug lab level. Please check for lab orders, Routine Given 12/20/2012 10:03 PM EDT 1,000 mg vancomycin 1 g in dextrose 5% 200 mL 1,000 mg (1 g), Intravenous, EVERY 24 HOURS, First dose on Sun12/24/12 at 1830, Until Discontinued, This medication may have an associated drug lab level. Please check for lab orders, Routine Given 12/24/2012 7:00 PM EDT 1,000 mg vancomycin 1.25 g sodium in chloride 0.9% 250 mL 1,250 mg (1.25 g), Intravenous, at 125 mL/hr, ONCE, 1 dose, On 12/21/12 at 2200, plz administer AFTER dialysis, Routine Given 12/21/2012 10:50 PM EDT 1,250 mg 125 mL/hr vancomycin 750 mg in dextrose 5% 150 mL 750 mg, Intravenous, at 100 mL/hr, ONCE, 1 dose, On Sun12/23/12 at 1700, This medication may have an associated drug lab level. Please check for lab orders, Routine Given 12/23/2012 5:42 PM EDT 750 mg 100 mL/hr vancomycin 750 mg in dextrose 5% 150 mL 750 mg, Intravenous, at 100 mL/hr, EVERY 24 HOURS, First dose (after last modification) on Sun12/25/12 at 1830, Until Discontinued, This medication may have an associated drug lab level. Please check for lab orders, Routine Given 12/26/2012 6:17 PM EDT 750 mg 100 mL/hr Given 12/25/2012 6:53 PM EDT 750 mg 100 mL/hr vancomycin 750 mg in dextrose 5% 150 mL 750 mg, Intravenous, at 100 mL/hr, ONCE, 1 dose, On Sun12/27/12 at 1500, Please move up 1800 dose to 1500 to facilitate patient discharge. This medication may have an associated drug lab level. Please check for lab orders, Routine Given 12/27/2012 3:09 PM EDT 750 mg 100 mL/hr warfarin (COUMADIN) tablet 5 mg 5 mg, Oral, ONCE, 1 dose, On Ninfa 12/26/12 at 1700, Routine Given 12/26/2012 5:00 PM EDT 5 mg documented in this encounter Active and Recently Administered Medications Times are shown in EDT. Scheduled Medication Order 12/25/2012 12/26/2012 12/27/2012 caffeine (VIVARIN) tablet 100 mg (COMPLETED) 100 mg, Oral, ONCE, On Sun12/27/12 at 1230, 1 dose 1306 (Given - Provider: Erika Tracy RN) chlorhexidine (PERIDEX) 0.12 % oral solution 15 mL (CANCELED) 15 mL, Oral, 2 TIMES DAILY, First dose on Sun12/13/12 at 2130, Until Discontinued, [place] teeth, Routine 0944 (Given - Provider: Alicia Rodriguez RN)2100 (Due) 0900 (Not Given - Provider: Erika Tracy RN - Reason: Patient/family refused)2030 (Not Given - Provider: Alicia Rodriguez RN - Reason: Patient/family refused) 09 (Not Given - Provider: Erika Tracy RN - Reason: Patient/family refused) enoxaparin (LOVENOX) injection 70 mg 70 mg (1 mg/kg/dose ? 70.2 kg), Subcutaneous, EVERY 24 HOURS SCHEDULED (Daily), First dose on Sun12/25/12 at 1530, Until Discontinued, STAT 1720 (Given - Provider: Alicia Rodriguez RN - Comment: given when received from pharmacy) 0956 (Given - Provider: Erika Tracy RN) 0900 (Given - Provider: Erika Tracy RN) esomeprazole (NEXIUM) capsule 40 mg (CANCELED) 40 mg, Oral, 2 TIMES DAILY, First dose on Sun12/26/12 at 1100, Until Discontinued, Routine 1100 (Not Given - Provider: Erika Tracy RN - Reason: Contraindicated - Comment: pt. given IV dose this AM, will start oral this sharifa.)2030 (Given - Provider: Alicia Rodriguez RN) 09 (Given - Provider: Erika Tracy RN) esomeprazole (NEXIUM) injection 40 mg (CANCELED) 40 mg, Intravenous, 2 TIMES DAILY, First dose on Sun12/20/12 at 1100, Until Discontinued 1037 (Given - Provider: Alicia Rodriguez RN)2125 (Given - Provider: Faby Walton RN) 0957 (Given - Provider: Erika Tracy RN) folic acid (FOLVITE) 1 mg/10 mL oral liquid 1 mg (CANCELED) 1 mg, Oral, DAILY, First dose on Sun12/19/12 at 1200, Until Discontinued 0944 (Given - Provider: Alicia Rodriguez RN) 0900 (Not Given - Provider: Erika Tracy RN - Reason: Medication Discontinued) folic acid (FOLVITE) tablet 1,000 mcg (CANCELED) 1,000 mcg (1 mg), Oral, DAILY, First dose on Sun12/26/12 at 1100, Until Discontinued, Routine 1142 (Given - Provider: Erika Tracy RN) 0900 (Given - Provider: Erika Tracy RN) hydrocortisone 1 % cream (CANCELED) Topical, 2 TIMES DAILY, First dose on Sun12/22/12 at 1245, Until Discontinued 0944 (Given - Provider: Alicia Rodriguez RN)2100 (Due) 0900 (Given - Provider: Erika Tracy RN)2030 (Given - Provider: Alicia Rodriguez RN) 0900 (Given - Provider: Erika Tracy RN) magnesium oxide (MAG-OX) tablet 400 mg (CANCELED) 400 mg, Oral, 2 TIMES DAILY, First dose on Sun12/21/12 at 1000, Until Discontinued, Routine 0944 (Given - Provider: Alicia Rodriguez RN)2124 (Given - Provider: Faby Walton RN) 0957 (Given - Provider: Erika Tracy RN)2030 (Given - Provider: Alicia Rodriguez RN) 0900 (Given - Provider: Erika Tracy RN) multivitamin (THERAGRAN) tablet 1 tablet (CANCELED) 1 tablet, Oral, DAILY, First dose on Sun12/23/12 at 1700, Until Discontinued 0944 (Given - Provider: Alicia Rodriguez RN) 0957 (Given - Provider: Erika Tracy RN) 0900 (Given - Provider: Erika Tracy RN) sodium chloride 0.9 % flush 5 mL (CANCELED) 5 mL, Intravenous, EVERY 12 HOURS, First dose on Sun12/13/12 at 2130, Until Discontinued 0944 (Given - Provider: Alicia Rodriguez RN)2129 (Given - Provider: Faby Walton RN) 0930 (Given - Provider: Erika Tracy RN)2030 (Given - Provider: Alicia Rodriguez RN) 0930 (Given - Provider: Erika Tracy RN) vancomycin 750 mg in dextrose 5% 150 mL (CANCELED)(Linked Group 1) 750 mg, Intravenous, at 100 mL/hr, EVERY 24 HOURS, First dose (after last modification) on Sun12/25/12 at 1830, Until Discontinued, This medication may have an associated drug lab level. Please check for lab orders, Routine 1852 (Given - Provider: Alicia Rodriguez RN) 1816 (Given - Provider: Erika Tracy RN) vancomycin 750 mg in dextrose 5% 150 mL (COMPLETED) 750 mg, Intravenous, at 100 mL/hr, ONCE, 1 dose, On Sun12/27/12 at 1500, Please move up 1800 dose to 1500 to facilitate patient discharge. This medication may have an associated drug lab level. Please check for lab orders, Routine 1509 (Given - Provider: Erika Tracy RN) warfarin (COUMADIN) tablet 5 mg (COMPLETED) 5 mg, Oral, ONCE, 1 dose, On Ninfa 12/26/12 at 1700, Routine 1700 (Given - Provider: Erika Tracy RN) PRN Medication Order 12/25/2012 12/26/2012 12/27/2012 acetaminophen (TYLENOL) tablet 1,000 mg (CANCELED) 1,000 mg, Oral, EVERY 6 HOURS PRN, Starting on Sun12/27/12 at 1019, Until Sun12/27/12 at 2036, Pain, Fever, for MILD pain, Do not exceed 4,000 mg in 24 hours, Routine 1043 (Given - Provider: Erika Tracy RN - Comment: headache) acetaminophen (TYLENOL) tablet 500 mg (CANCELED) 500 mg, Oral, EVERY 6 HOURS PRN, Starting on Sun12/13/12 at 2113, Until Sun12/27/12 at 1020, Pain, Fever, for MILD pain, Do not exceed 4,000 mg in 24 hours, Routine 1856 (Given - Provider: Alicia Rodriguez RN) 1538 (Given - Provider: Erika Tracy RN - Comment: headache) haloperidol lactate (HALDOL) injection 0.5 mg (CANCELED) 0.5 mg, Intravenous, EVERY 6 HOURS PRN, Starting on 12/21/12 at 1223, Until Sun12/27/12 at 2036, Agitation, Routine 0242 (Given - Provider: Yeimi Carrasco RN)2145 (Given - Provider: Faby Walton RN) morphine 2 mg/mL carpuject 2 mg (CANCELED)(Linked Group 2) 2 mg, Intravenous, EVERY 3 HOURS PRN, Starting on 12/25/12 at 1451, Until Sun12/27/12 at 2036, Pain, mild pain, May give 2 mg in 30 minutes times 1 if pain not relieved., Routine 1508 (Given - Provider: Alicia Rodriguez RN) 1008 (Given - Provider: Erika Tracy RN)1706 (Given - Provider: Erika Tracy RN)2046 (Given - Provider: Alicia Rodriguez RN) 0350 (Given - Provider: Alicia Rodriguez RN)0416 (Given - Provider: Alicia Rodriguez RN)0750 (See Alternative - Provider: Erika Tracy RN) morphine 4 mg/mL carpuject 4 mg (CANCELED)(Linked Group 2) 4 mg, Intravenous, EVERY 3 HOURS PRN, Starting on Sun12/25/12 at 1451, Until Sun12/27/12 at 2035, Pain, moderate pain, May give 2 mg in 30 minutes times 1 if pain not relieved., Routine 1508 (See Alternative - Provider: Alicia Rodriguez RN) 1008 (See Alternative - Provider: Erika Tracy RN)1706 (See Alternative - Provider: Erika Tracy RN)2046 (See Alternative - Provider: Alicia Rodriguez RN) 0350 (See Alternative - Provider: Alicia Rodriguez RN)0416 (See Alternative - Provider: Alicia Rodriguez RN)0750 (Given - Provider: Erika Tracy RN - Comment: headache) ondansetron (ZOFRAN) injection 4 mg (CANCELED)(Linked Group 3) 4 mg, Intravenous, EVERY 8 HOURS PRN, Starting on Ninfa 12/19/12 at 1230, Until Sun12/27/12 at 2035, Nausea, May repeat times one in 30 minutes if ineffective 1141 (See Alternative - Provider: Erika Tracy RN) 0651 (Given - Provider: Alicia Rodriguez RN) ondansetron (ZOFRAN) tablet 4 mg (CANCELED)(Linked Group 3) 4 mg, Oral, EVERY 4 HOURS PRN, Starting on Ninfa 12/19/12 at 1230, Until Sun12/27/12 at 2035, Nausea, Vomiting, If multiple antiemetics are ordered, use ondansetron first. PO Preferred. If patient unable to take PO, may give IV if ordered. May repeat times one in 45 minutes if ineffective., Routine 1141 (Given - Provider: Erika Tracy RN) 0651 (See Alternative - Provider: Aliica Rodriguez RN) prochlorperazine (COMPAZINE) injection 10 mg (CANCELED)(Linked Group 4) 10 mg, Intravenous, EVERY 6 HOURS PRN, Starting on Sun12/13/12 at 2145, Until Sun12/27/12 at 2035, Nausea, Nausea/Vomiting, Routine 0745 (Given - Provider: Erika Tracy RN) prochlorperazine (COMPAZINE) tablet 10 mg(Linked Group 4) 10 mg, Oral, EVERY 6 HOURS PRN, Starting on Sun12/13/12 at 2145, Until Sun12/27/12 at 2035, Nausea, Nausea/Vomiting, If unable to take PO, may give IV, Routine 0745 (See Alternativ e - Provider: Erika Tracy RN) Linked Groups Order Group 1: vancomycin 750 mg in dextrose 5% 150 mL (CANCELED)Jump to med 750 mg, Intravenous, at 100 mL/hr, EVERY 24 HOURS, First dose (after last modification) on Sun12/25/12 at 1830, Until Discontinued, This medication may have an associated drug lab level. Please check for lab orders, Routine And Vancomycin, trough (CANCELED) Timed, PRN, Starting on Sun12/24/12 at 1744, Until Specified And Vancomycin Level - MAR Order Reminder (CANCELED) NOT APPLICABLE, PER PHARMACY, Other, Starting on Sun12/25/12 at 1455, Until Sun12/27/12 at 2035, This alert will be scheduled by a pharmacist after order placement. This order is a reminder to nursing staff to release and draw the PRN drug level at the specified time. It may be necessary to contact phlebotomy 60 minutes prior to the scheduled due time to assure a timely blood draw. Group 2: morphine 2 mg/mL carpuject 2 mg (CANCELED)Jump to med 2 mg, Intravenous, EVERY 3 HOURS PRN, Starting on Sun12/25/12 at 1451, Until Sun12/27/12 at 2035, Pain, mild pain, May give 2 mg in 30 minutes times 1 if pain not relieved., Routine Or morphine 4 mg/mL carpuject 4 mg (CANCELED)Jump to med 4 mg, Intravenous, EVERY 3 HOURS PRN, Starting on Sun12/25/12 at 1451, Until Sun12/27/12 at 2035, Pain, moderate pain, May give 2 mg in 30 minutes times 1 if pain not relieved., Routine Or morphine 2 mg/mL carpuject 6 mg (CANCELED) 6 mg, Intravenous, EVERY 3 HOURS PRN, Starting on Sun12/25/12 at 1451, Until Sun12/27/12 at 2035, Pain, May give 2 mg in 30 minutes times 1 if pain not relieved., Routine Group 3: ondansetron (ZOFRAN) tablet 4 mg (CANCELED)Jump to med 4 mg, Oral, EVERY 4 HOURS PRN, Starting on Ninfa 12/19/12 at 1230, Until Sun12/27/12 at 2035, Nausea, Vomiting, If multiple antiemetics are ordered, use ondansetron first. PO Preferred. If patient unable to take PO, may give IV if ordered. May repeat times one in 45 minutes if ineffective., Routine Or ondansetron (ZOFRAN) injection 4 mg (CANCELED)Jump to med 4 mg, Intravenous, EVERY 8 HOURS PRN, Starting on Ninfa 12/19/12 at 1230, Until Sun12/27/12 at 2035, Nausea, May repeat times one in 30 minutes if ineffective Group 4: prochlorperazine (COMPAZINE) tablet 10 mgJump to med 10 mg, Oral, EVERY 6 HOURS PRN, Starting on Sun12/13/12 at 2145, Until Sun12/27/12 at 2035, Nausea, Nausea/Vomiting, If unable to take PO, may give IV, Routine Or prochlorperazine (COMPAZINE) injection 10 mg (CANCELED)Jump to med 10 mg, Intravenous, EVERY 6 HOURS PRN, Starting on Sun12/13/12 at 2145, Until Sun12/27/12 at 2035, Nausea, Nausea/Vomiting, Routine documented in this encounter 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
--- OUTSIDE RECORDS SUMMARY | 2023-12-26 11:51 | XMS_ITS | Encounter Summary ---
Author Organization [facility] Address [facility] [place] [address] Care Team Providers Care Gut Sorter Name Role Phone Ofelia Costello APRN Primary Care Provider [phone] Encounter Details Date Type Department Care Team (Late st Contact Info) Description 12/26/2012 Orders [place] [address] Minor Kebede MD [facility] [place] [address] Graves disease (Primary Dx) Social History Tobacco Use Types [...] as of this encounter Results * (ABNORMAL) T4 (01/13/2013 12:10 PM EDT) T4, total 4.9(L) 5.1 - 10.8 mcg/dL [facility] Comment: Reference Range: [place] Cord Blood: ??6.9-14.4 mcg/dL Females: ??7.2-14.2 mcg/dL Pediatric ranges: ??Interpret with caution-ranges have not been verified Blood specimen (specimen) 01/13/2013 12:10 PM EDT 01/13/2013 12:15 PM EDT Narrative Resulting Agency Comment Spec In Lab Tyson Connolly MD CHEMISTRY ORDERABLES Performing Organization Address City/[facility] Co de Phone Number BAR PINEDAIUM * T Uptake (01/13/2013 12:10 PM EDT) T Uptake 1.16 0.80 - 1.30 ratio [facility] MILLENNIUM Comment: Tup assay is directly proportional to Thyroid binding protein concentration, thus FT4 Index = TT4/Tup. [place] Cord Blood Reference Range: ??0.74-1.28. Blood specimen (specimen) 01/13/2013 12:10 PM EDT 01/13/2013 12:15 PM EDT Narrative Resulting Agency Comment Spec In Lab Tyson Connolly MD CHEMISTRY ORDERABLES Performing Organization Address [facility] Co de Phone Number BAR PINEDAIUM * (ABNORMAL) T3 (01/13/2013 12:10 PM EDT) T3, Total 62(L) 75 - 170 ng/dL [facility] Blood specimen (specimen) 01/13/2013 12:10 PM EDT 01/13/2013 12:15 PM EDT Narrative Resulting Agency Comment Spec In Lab Tyson Connolly MD CHEMISTRY ORDERABLES Performing Organization Address [facility] Co de Phone Number BAR ARCOSENNIUM * T4, free (01/13/2013 12:10 PM EDT) Free T4 0.96 0.90 - 1.60 ng/dL [facility] Blood specimen (specimen) 01/13/2013 12:10 PM EDT 01/13/2013 12:15 PM EDT Narrative Resulting Agency Comment Spec In Lab Tyson Connolly MD CHEMISTRY ORDERABLES BAR PINEDAIUM * TSH (01/13/2013 12:10 PM EDT) TSH 0.63 0.27 - 4.20 mcIU/mL [facility] MILLENNIUM Blood specimen (specimen) 01/13/2013 12:10 PM EDT 01/13/2013 12:15 PM EDT Narrative Resulting Agency Comment Spec In Lab Tyson Connolly MD CHEMISTRY ORDERABLES Performing Organization Address City/[facility]/ZIP Co de Phone Number BAR NOE documented in this encounter Visit Diagnoses Diagnosis Graves disease- Primary Toxic diffuse goiter without mention of thyrotoxic crisis or storm documented in this encounter Care Teams Gut Sorter Relationship Specialty Start Date End Date Ofelia Costello APRN [address] [address] PCP - General 12/13/12 01/12/13 documented as of this encounter
--- OUTSIDE RECORDS SUMMARY | 2023-12-26 11:53 | XMS_ITS | Encounter Summary ---
Author Organization [facility] [place] [address] Care Team Providers Care Commercial Portfolio Manager Name Role Phone Ofelia Costello APRN Primary Care Provider [phone] Encounter Details Date Type Department Care Team (Late st Contact Info) Description 12/15/2012 External Results XRay at [address] [place] [address] Provider, Scanning Social History Tobacco Use Types Packs/Day Years [...] Procedure Name Priority Date/Time Associated Diagnosis Comments DIAGNOSTIC RADIOLOGY SCAN Routine 12/13/2012 CT SCAN (SCAN) Routine 12/10/2012 DIAGNOSTIC RADIOLOGY SCAN Routine 12/10/2012 documented in this encounter Results * Scan Doc: Diagnostic Radiology (12/13/2012) Anatomical Region Laterality Modality Other Scanning Provider MEDIA MGR SCAN EXT O RDR/RSLT * Scan Doc: Diagnostic Radiology (12/10/2012) Anatomical Region Laterality Modality Other Scanning Provider MEDIA MGR SCAN EXT O RDR/RSLT * Scan Doc: CT Scan (12/10/2012) Anatomical Region Laterality Modality Other Scanning Provider MEDIA MGR SCAN EXT O RDR/RSLT documented in this encounter Visit Diagnoses Not on filedocumented in this encounter Care Teams Commercial Portfolio Manager Relationship Specialty Start Date End Date Ofelia Costello APRN [address] [address] PCP - General 12/13/12 01/12/13 documented as of this encounter
--- OUTSIDE RECORDS SUMMARY | 2023-12-26 11:53 | XMS_ITS | Encounter Summary ---
[place] [address] Care Team Providers Care World Geography Teacher Name Role Phone Ofelia Costello APRN Primary Care Provider [phone] Encounter Details Date Type Department Care Team (Late st Contact Info) Description 12/10/2012 [place] [address] [place] [address] Social History Tobacco Use Types Packs/Day Years [...] Diagnosis Comments FILM LIBRARY STORAGE ONLY CT ABDOMEN AND PELVIS Routine 12/10/2012 2:12 PM EDT documented in this encounter Results * Film Library- Storage only CT abdomen & pelvis (12/10/2012 2:12 PM EDT) Anatomical Region Laterality Modality Abdomen, Pelvis Other 12/10/2012 2:12 PM EDT Narrative 07/31/2013 9:40 PM EST This is a non-reportable exam. Procedure Note Noel Jordan - 07/31/2013 This is a non-reportable exam. Ant Mendoza MD [facility] FILM LIBRARY ORD ERABLES documented in this encounter Visit Diagnoses Not on filedocumented in this encounter Care Teams World Geography Teacher Relationship Specialty Start Date End Date Ofelia Costello APRN [address] [address] PCP - General 12/13/12 01/12/13 documented as of this encounter
--- OUTSIDE RECORDS SUMMARY | 2023-12-26 11:53 | XMS_ITS | Encounter Summary ---
[place] [address] Care Team Providers Care Developer Relations Manager Name Role Phone Ofelia Costello APRN Primary Care Provider [phone] Encounter Details Date Type Department Care Team (Late st Contact Info) Description 12/13/2012 [place] [address] [place] [address] Social History Tobacco Use Types Packs/Day Years [...] Diagnosis Comments FILM LIBRARY STORAGE ONLY DX ABDOMEN Routine 12/13/2012 2:10 PM EDT documented in this encounter Results * Film Library- Storage only DX Abdomen (12/13/2012 2:10 PM EDT) Anatomical Region Laterality Modality Other 12/13/2012 2:10 PM EDT Narrative 07/31/2013 9:40 PM EST This is a non-reportable exam. Procedure Note Noel Jordan - 07/31/2013 This is a non-reportable exam. Ant Mendoza MD [facility] FILM LIBRARY ORD ERABLES documented in this encounter Visit Diagnoses Not on filedocumented in this encounter Care Teams Developer Relations Manager Relationship Specialty Start Date End Date Ofelia Costello APRN [address] [address] PCP - General 12/13/12 01/12/13 documented as of this encounter
--- OUTSIDE RECORDS SUMMARY | 2023-12-26 11:53 | XMS_ITS | Encounter Summary ---
Author Organization [facility] Address [facility] [place] [address] Care Team Providers Care Sign Out Clerk Name Role Phone Bakari Costello APRN Primary Care Provider [phone] Encounter Details Date Type Department Care Team (Late st Contact Info) Description 12/18/2012 1:30 PM EDT - 12/18/2012 2:00 PM EDT Surgery [place] [address] Beck Paiz MD [facility] [address] [place] [address] EGD, UPPER GI ENDOSCOPY (WRVU 2.09) Social History Tobacco Use Types Packs/Day Years [...] above, seek medical attention. * Patient Instructions* John Kimball - 12/26/2012 10:31 PM EDT Instruction after [...] 12/30/2012 12:45PM, Provider: Dr. Rob Mejia, Location: [place] [address], Your Inpatient Doctor(s) at [facility]: Attendings: Dr. Cristina, Dr. Ohara, Dr. Bliss Fellow: Dr. Gomez Residents: Dr. Guzmán, Dr. Aleman Security Installation Technician: Dr. Kimball * Attachments The following attachments cannot be sent through Care Everywhere. * PERIPHERALLY INSERTED CENTRAL CATHETER (PICC): AFTER YOUR VISIT ([facility]ONE[facility]) documented in this encounter Medications at Time [...] it-Vit C-Mn 500-400 mg Cap 12/03/2009 01/13/2013 Santa-3 Fatty Acids-Vitamin E (OMEGA-3 FISH OIL) 1,000-5 mg-unit Cap 12/03/2009 01/06/20 13 documented as of this encounter Progress Notes * Carmen Strickland - 12/27/2012 6:30 PM EDT Forensic Structural Engineer Encounter Note Patient Name: Anum Henriquez : [id number] MR#: [id number] Admit Date: 12/13/2012 7:56 PM Hospital Day 14 days Narrative: Follow up visit with patient prior to her discharge. Patient's present at the time of visit. Assessment: Patient expressed with excitement that she was going home today. She related the challenges of her hospitalization but was grateful to the members of the [facility] medical staff for their services. Intervention and [...] Velazco MD - 12/27/2012 5:39 PM EDT [facility] FOLLOW UP PATIENT: Anum Henriquez : 1960 ROOM: [address] [place] [address] ID: 52 y.o. female admitted for microangiopathic [...] daily until 12/20. (received 7 treatment total). [id number] is normal and infectious work-up is negative so because of gadolinium exposure and mental status improved after hd. DELVIS- Cr stable. Non oliguric. Stable chemistries No indications for OUTBOUND TELEMARKETER. Pt is getting discharged today. Plan to check labs in 1 week at [facility] and she has an appointment in nephrology [...] levels monitored by opat team. * Dez Bishop RN - 12/27/2012 4:28 PM EDT Patient Name: Anum Henriquez Patient Age: 52 y.o. Birthdate: 1960 Admit date: 12/13/2012 Attending Physician: Haris Jarvis MD Office of Care Management (OCM) / Clinical Grape Cutter (CRC) Continuing Care Note Care reviewed with hematology/blood and marrow transplant team and at interdisciplinary discharge rounds. . Situation: Discharge planned for today on home on IV abx therapy. Today is Day 8 Vancomycin IV for MRSA bacteremia. Arrangements made with [facility] for delivery of supplies to hospital room before discharge to home. [facility] is the [facility] that will go to the home tomorrow for first hang around 3 pm. Lovenox is ready for pick up attendant at their local pharmacy, No PA needed. Single lumen PICC placed. Procedure note sent to both [facility] and [facility]. Background: PMH of Graves on methimazole, transferred [...] 4. Follows up with Dr. Bliss in [facility] on 01/01. 5. First visit by [facility] to be on tomorrow at approx 3 Pm. Future Appointments Date Time Provider Department Center 01/01/2013 12:35 PM Fabi Bliss MD [facility]C [facility] 01/13/2013 3:30 PM Brian Velazco MD [facility] 01/14/2013 10:05 AM Minor Kebede MD [facility]C [facility] 01/14/2013 10:30 AM Cloivs Varner MD [facility] M. Dez Bishop RN Clinical Grape Cutter Office of Care Management Pager [phone] * Leticia Hardy, PT - 12/27/2012 3:45 PM EDT Ms. [...] FWW Pt anticipating discharge later today. ~Leticia Antonio. Hayley, PT Pager [phone]. * Tyson Patel MD - 12/27/2012 1:10 [...] outpatient. Recommendations: - Vancomycin 750 mg IV [id number] x3 weeks total since line removal (12/24 [...] minutes Total timed interventions: 15 minutes Pager: [phone] KAREN CATHERINE PT Physical Therapy Rehabilitation Department * Brian Velazco MD - 12/26/2012 3:12 PM EDT [facility] IN[facility]IENT FOLLOW UP PATIENT: Anum Henriquez : 1960 ROOM: [address] [place] [address] ID: 52 y.o. female admitted for microangiopathic [...] daily until 12/20. (received 7 treatment total). [id number] is normal and infectious work-up is negative so because of gadolinium exposure and mental status improved after hd. DELVIS- Cr stable off dialysis. Good urine output. No signs of uremia. Stable chemistries. Mild fluid overload. No indications for OUTBOUND TELEMARKETER. Will continue to follow cr and urine [...] PM EDT Office of Care Management Clinical Grape Cutter Home IV Antibiotic Therapy Referral Note. Report received from Dr. Frausto that patient will require continued home IV antibiotic therapy after discharge from the hospital. Met with patient/family to discuss vendor and visiting nurse choices for home IV antibiotic therapy. Reviewed Home Infusion Vendors and Home Health Agencies that serve patient???s address and accept patient???s insurance. Home Health Agency: Patient requested referral to [facility] PHONE: [phone] FAX: [phone] Referrals sent via edischarge. Home Infusion Vendor: Patient requested referral to [place], [place] or Referrals sent via edischarge. Diabetic Status: Patient is not a diabetic. IV access: Type of line: PICC single lumen pendng Date placed: pending Gorge Bishop RN Clinical Grape Cutter Hematology/Blood and Marrow Transplant Office of Care Management Pager [phone] * Clovis Varner MD - 12/26/2012 11:42 [...] Rebecca Kumar - 12/26/2012 11:18 AM EDT Forensic Structural Engineer Encounter Note Patient Name: Anum Henriquez : [id number] MR#: [id number] Admit Date: 12/13/2012 7:56 PM Hospital Day 13 days Narrative: Visited on rounds. Patient was excited about possibility of discharge. She plans to attend [facility] at Noon today. Assessment: Patiebnt was alert and eager to converse. Intervention and Outcome: The encounter provided spiritual support. Follow-up: Will visit if discharge is delayed. Time in Direct Care: 10 minutes. Rebecca Kumar 12/26/2012 * Haris Jarvis MD - 12/26/2012 [...] AAOx3, No double vision this AM, EOMI, Uhsdbx-zs-exgi improved, no past- pointing; rapid alternating movement and lhcp-hl-zqek intact. Patellar and biceps tendon reflexes are [...] acetaminophen, prochlorperazine, prochlorperazine Labs: Recent Labs Basename 12/26/12 03412/25/12 1204 12/25/12 0414 WBC 6.1 6.7 5.5 HGB 8.3* [...] PHOS 4.1 3.4 2.9 Recent Labs Basename 12/26/12 0342 12/25/12 1204 12/25/12 0414 12/24/12 1300 AST -- [...] + delirium. Possible diagnosis include ?Lupus cerebritis, SCHOOL CLERK vasculitis, all d/t TTP-HUS? Delirogenic meds d/c'd. [...] KIMBALL MD, PGY-1 12/26/2012 Team A Pager #[phone] . I have independently interviewed and examined [...] nausea, and bloody diarrhea. Upon transfer to [facility], she was found to have microangiopathic hemolytic [...] Recommendations: ?? Continue Vancomycin 1 gram IV [id number] ?? Vancomycin trough prior to 4th dose, [...] Velazco MD - 12/25/2012 3:16 PM EDT [facility] IN[facility]IENT FOLLOW UP PATIENT: Anum Henriquez : 1960 ROOM: [address] [place] [address] ID: 52 y.o. female admitted for microangiopathic [...] daily until 12/20. (received 7 treatment total). [id number] is normal and infectious work-up is negative so because of gadolinium exposure and mental status improved after hd. DELVIS- urine output of 3.5 L which might be an early sign of renal recovery. Cr continues to rise butwill have to follow daily cr to monitor for renal recovery. No signs of uremia today. No acute needfor OUTBOUND TELEMARKETER today. Will need to assess daily for [...] good spirits after a visit from the [facility]. She reports her appetite is fair, eating about 50% with a goal of 100%. Discussed how this is a goal to work towards, but sheis doing well in her efforts. She denied any nutrition requests, questions, or additional snacks atthis time. Continue to monitor. P: Continue current diet. [place] food choices as able. Work towards increasing [...] AAOx3, No double vision this AM, EOMI, Wlchiw-mm-midg improved, no past- pointing; rapid alternating movement and hwfm-fb-thtt intact. Patellar and biceps tendon reflexes are [...] NEUTROABS 3.63 5.53 4.32 Recent Labs Basename 12/25/1241312/24/128 12/23/12 0545 NA 140 138 138 K 3.6 3.7 4.2 CL 106 101 104 CO2 27 27 26 BUN 10 7* 11 CREATININE 2.01* 1.59* 1.52* Recent Labs Basename 12/25/1241312/24/1235712/23/12 0545 CALCIUM 8.3* 7.9* 7.8* MAGNESIUM 0.80 0.74 0.71 PHOS 3.4 2.9 2.9 Recent Labs Basename 12/25/1241312/24/12 1300 12/24/1235712/23/12 0545 AST -- -- -- -- ALT [...] + delirium. Possible diagnosis include ?Lupus cerebritis, SCHOOL CLERK vasculitis, all d/t TTP-HUS? Delirogenic meds d/c'd. [...] KIMBALL MD, PGY-1 12/25/2012 Team A Pager #[phone] . I have independently interviewed and examined [...] in reticulocyte if we administer ESAs * José Rebecca Anh - 12/24/2012 5:57 PM EDT Mirella Encounter Note Patient Name: Anum Henriquez : [id number] MR#: [id number] Admit Date: 12/13/2012 7:56 PM Hospital Day 11 days Narrative: Visited patient as part of continuing care. I has seen her earlier in the day at [facility]. Assessment: Patient was lucid and in very good spirits. Intervention and Outcome: The encounter provided spiritual and emotional support. Follow-up: Visit before [facility]. Time in Direct Care: 10 minutes Rebecca Kumar 12/24/2012 * Brian Velazco MD - 12/24/2012 4:54 PM EDT [facility]IENT FOLLOW UP PATIENT: Anum Henriquez : 1960 ROOM: [address] [place] [address] ID: 52 y.o. female admitted for microangiopathic [...] daily until 12/20. (received 7 treatment total). [id number] is normal and infectious work-up is negative [...] Plasma exchange x7, which was stopped 12/20. JXEJDJ24 negative. 2-3 days ago, patient developed acute [...] nausea, and bloody diarrhea. Upon transfer to [facility], she was found to have microangiopathic hemolytic [...] the majority spent in coordination of care Edil Ohara MD Staff * Betsy Forman, PT - 12/24/2012 [...] minutes Total timed interventions: 25 minutes Pager: [phone] BETSY FORMAN PT Physical Therapy Rehabilitation Department * RehanaJohn Vero - 12/24/2012 6:50 AM EDT Inpatient Hematology/Oncology/SCT [...] and staph A bacteremia - Dialysis Day 3 was 12/23 after receiving gadalonium Subjective -feels [...] AAOx3, No double vision this AM, EOMI, Zkbjeh-ql-dvch improved, no past- pointing; rapid alternating movement and bmpx-rv-nkrs intact. Patellar and biceps tendon reflexes are 2+ (no longer 3+). Antimicrobials: Vancomycin 1g q24 (12/20-) Day#4 Zosyn 3.375 q8 (7/12-) Medications: Scheduled Meds: ??? acetaminophen 650 mg [...] 17.1* PTT 36* Other Labs: C3 Complement 7/8 - 66 (low) C4 Complement 7/8 - 4 (low) TSH 7/8 - 3.68 Free T4 -0.88 (borderline low) Microbiology: C diff 7/7 - neg Stool wbc + Stool cx [...] + delirium. Possible diagnosis include ?Lupus cerebritis, SCHOOL CLERK vasculitis, all d/t TTP-HUS? Delirogenic meds d/c'd. [...] KIMBALL MD, PGY-1 12/24/2012 Team A Pager #[phone] * Brian Velazco MD - 12/23/2012 5:41 PM EDT [facility] FOLLOW UP PATIENT: Anum Henriquez : 1960 ROOM: [address] [place] [address] ID: 52 y.o. female admitted for microangiopathic [...] daily until 12/20. (received 7 treatment total). [id number] is normal and infectious work-up is negative [...] for procedure. Will follow up tomorrow. Gianna Hdz, MICHELLE Pager [phone] * Ankit Ohara MD - 12/23/2012 9:38 [...] (3 to date). Today is Day 3 3 for hemodialysis Exam I performed a [...] include Diaylsis again (Day 2 of 3) Pull out lines that are not [...] reviewed findings with Dr Mo of radiology) I appreciate Neuro/Nephrology and Blood [...] AAOx3, No double vision this AM, EOMI, Nkfics-pb-ybbo improved, no past- pointing; rapid alternating movement and zcjt-fa-scli intact. Patellar and biceps tendon reflexes are [...] + delirium. Possible diagnosis include ?Lupus cerebritis, SCHOOL CLERK vasculitis, all d/t TTP-HUS? Delirogenic meds d/c'd. [...] KIMBALL MD, PGY-1 12/23/2012 Team A Pager #[phone] * SeattleRebecca ferrer - 12/22/2012 6:06 PM EDT Forensic Structural Engineer Encounter Note Patient Name: Anum Henriquez : [id number] MR#: [id number] Admit Date: 12/13/2012 7:56 PM Hospital Day 9 days Narrative: Visited at patient request. Forensic Structural Engineer services offered and accepted. Prayer offered and accepted. Patient was made aware of Mass times, and availability of communion from [employer] ministers. Assessment: Patient was lucid, pleasant and eager to converse. Intervention and Outcome: The encounter provided significant spiritual support. Follow-up: Will refer to Islam chaplains and also visit Sunday. Time in [...] Velazco MD - 12/22/2012 9:06 AM EDT [facility] IN[facility]IENT FOLLOW UP PATIENT: Anum Henriquez : 1960 ROOM: [address] [place] [address] ID: 52 y.o. female admitted for microangiopathic [...] total). LDH trending down and HGB/PLT improving. [id number] normal and infectious work-up is negative so [...] Crum. Salvador Renner MD Nephrology Fellow Pager# [phone] Renal Staff: This patient is seen and [...] Oriented to person, thinks she is at [facility], thinks month is November, oriented to year and president, off on day of week by 1 day. animal chiropractor intact. EOMI but disconjugate gaze when looking forward, with L eye deviating medially. Double vision. No meningismus. Unable to cooperate in strength and sensation exam. Trembling diffusely, more exaggerated versus yesterday. Worsened dysmetria with kysodr-uq-rsdh. Myoclonic jerks, clonus bl ankles, hyperrflexia diffusely. [...] negative Blood culture 12/20 - 2 grew gram + cocci in clusters, 1 [...] + delirium. Possible diagnosis include ?Lupus cerebritis, SCHOOL CLERK vasculitis, all d/t TTP-HUS? Delirogenic meds d/c'd. [...] KIMBALL MD, PGY-1 12/22/2012 Team A Pager #[phone] * Arturo Moreno MD - 12/22/2012 1:22 AM EDT Neurology Progress Note Patient Name: Anum Henriquez Admit Date: 12/13/2012 Attending: Patient ID: Anum Henriquez is a 52 y.o. female with PMH of Graves disease initially admitted in transfer from [facility] with hemorrhagic colitis and thrombocytopenia on [...] ??? aspirin 81 mg EC tablet ??? Tzlwdbhpuzg-Xjauspnog-Otp C-Mn 500-400 mg Cap ??? Santa-3 Fatty Acids-Vitamin E (OMEGA-3 FISH OIL) 1,000-5 [...] questions Raad Aleman, PGY-2 Neurology Personal Pager [phone] Addendum:I saw and evaluated the patient with Dr. Aleman. I have reviewed the medical records and history during the evaluation and agree with the details as written. The assessment and plan were formulated in discussion with me at the time of the visit and I agree with them as documented. Clearly improved today. * Ankit Ohara MD - 12/21/2012 7:51 PM EDT Inpatient [...] Oriented to person, thinks she is at [facility], thinks month is November, oriented to year and president, off on day of week by 1 day. animal chiropractor intact. EOMI but disconjugate gaze when looking forward, with L eye deviating medially. Double vision. No meningismus. Unable to cooperate in strength and sensation exam. Trembling diffusely, more exaggerated versus yesterday. Worsened dysmetria with hwagvu-zc-bbpy. Myoclonic jerks, clonus bl ankles, hyperrflexia diffusely. [...] all toxic-metabolic encephalopathy + delirium. ?Lupus cerebritis, SCHOOL CLERK vasculitis, all d/t TTP-HUS? Delirogenic meds d/c'd. [...] ALEMAN MD, PGY-1 12/21/2012 Team A Pager #[phone] Fellow Addendum I have seen and examined [...] systemic fibrosis. Ming Gomez MD Fellow, Hematology/Oncology [facility] Pager #[phone] Staff 12/21/12 8pm Pt remains intermittently confused [...] Velazco MD - 12/21/2012 8:57 AM EDT [facility] IN[facility]IENT FOLLOW UP PATIENT: Anum Henriquez : 1960 ROOM: [address] [place] [address] ID: 52 y.o. female admitted for microangiopathic [...] 12/21/12 76 kg (167 lb 8.8 oz) 12/21/12 76 kg (167 lb 8.8 oz) Intake/Output [...] total). LDH trending down and HGB/PLT improving. [id number] is normal and infectious work-up is negative [...] Crum. Salvador Renner MD Nephrology Fellow Pager# [phone] Renal Staff: This patient is seen and [...] year old female admitted in transfer from [facility] for hemorrhagic colitis and thrombocytopenia on [...] on CXR. Implicated Component Information: Unit Number(s): [id number], [id number], [id number], [id number], [id number] Unit ABO Type(s): AB Volume Transfused: All [...] ml Laboratory Investigation: Not performed Reaction Assessment: [facility] Reaction Classification: Transfusion-associated circulatory overload (TACO) [...] TRALI is unlikely, we have contacted the [facility] [facility] to determine the HLA status of donor [...] donors except for one unit of plasma [id number] which as donated by female who was HLA negative. This excludes the possibility of antibody mediated TRALI. Marie Wade, 12/21/2012 * Jimmy Tuttle OTA - 12/20/2012 4:04 PM EDT Occupational Therapy Encounter Spoke with RN who advised that the patient was not appropriate for therapy today, will follow up onSunday. GREGORY Nelson Pager #[phone] * Amanda Odonnell PT - 12/20/2012 1:48 PM EDT Spoke with OT who reports that pt not medically appropriate for PT today. [employer] reportedly inwith pt. Will plan to follow-up on Sunday. Amanda Odonnell PT Pager #[phone] * Ankit Ohara MD - 12/20/2012 9:34 AM EDT Attending Addendum: I personally saw, examined and interviewed the patient. I agree with the history, physical, assessment and plan in the note by Dr Kibmall. I have seen and examined the patient [...] She rec'd 1 u RBCs to date [id number] was normal Exam significant for mild dysmtria, [...] MRI was normal. Confusing clinical picture, since KTYQGVM57 was normal. We will give 1 u [...] Trotter MD - 12/20/2012 8:57 AM EDT [facility] IN[facility]IENT FOLLOW UP PATIENT: Anum Henriquez : 1960 ROOM: [address] [place] [address] ID: 52 y.o. female admitted for microangiopathic [...] Sergo Gomes MD Nephrology Fellow Pager # [phone] Renal Attending: The patient was examined together [...] methimazole for >10 years) who presented to [facility] 6 days ago with watery/bloody diarrhea [...] returning positive (12/13/12). She was transferred to [facility] on 12/13/12 after daily labs revealed a drop in platelets from 151 to 66, increase of Cr from 0.8 to 1.2, and elevated LDH at 1187 (all per OSH). [facility] labs confirmed thrombocytopenia at 46 (currently 44), increasing Creatinine (1.4 at [facility] admission, currently 1.74) LDH of 672, dropping hemoglobin (Per OSH, 14 at initial admit, 11.9 at [facility] admit, currently 10.8), and low haptoglobin (<10). [...] affect. Current laboratory data: Recent Labs Basename 12/20/1244912/19/1231912/18/1242412/17/12 1300 12/17/12 0400 WBC 10.0 8.9 7.7 6.9 6.7 HGB 7.1* 7.8* 7.9* 6.2* 7.0* HCT 21.4* 23.2* 22.4* 18.3* 19.7* PLATELET 139* 123* 99* 65* 58* NEUTROABS 8.24* 7.21* 5.75 5.12 5.16 Recent Labs Basename 12/20/1244912/19/1231912/18/125 12/17/12 0400 12/16/12 0440 NA 140 145 140 [...] 2/3 albumin, 1/3 plasma today given normal BNHDWN99 activity. Plasma given for coag factor purposes (Fibrinogen <200). - Will plan to hold treatment tomorrow and observe. If patient and/or labs (plts, LDH, etc) worsen on Sunday then we can resume TPE treatment. - F/u Plts, Hgb, LDH, Ca, coags - GI w/u per GI team. Jay Toscano MD Fellow, Hematology/Oncology Pager #: [phone] ATTENDING MD ATTESTATION: The apheresis procedure was [...] supportive care. JALEEL REYNOSO MD 12/21/2012 * John Kimball T - 12/20/2012 7:15 AM EDT Inpatient Hematology/Oncology/SCT Progress Note Patient info: Name: Anum Henriquez : 1960 PCP: BAKARI COSTELLO APRN PCP phone number: [phone] Date of Admission: 12/13/2012 ( Hospital Day 7 days ) Service: Hem/Onc Team B - Pager [phone] Responsible Attending:Ankit Ohara MD ID: Anum Henriqeuz is a 52 y.o. w/ PMH of [...] skin feels tense Neuro: A&Ox3, dysmetria with mrocdf-xv-ofph, motor 5/5 upper and lower ext. Antimicrobials: [...] acetaminophen, zolpidem, prochlorperazine, prochlorperazine Labs: Recent Labs Basenam 12/20/12 1355 12/20/12 0450 12/19/12 0320 WBC 12.4* 10.0 8.9 HGB 7.1* 7.1* 7.8* HCT 21.4* 21.4* 23.2* PLATELET 138* 139* 123* NEUTROABS 10.97* 8.24* 7.21* Recent Labs Basenam 12/20/12 1355 12/20/12 0450 12/19/12 0320 NA 139 140 145 K 3.9 3.5 3.7 CL 100 100 104 CO2 27 32* 28 BUN 34* 38* 41* CREATININE 1.86* 2.11* 2.19* Recent Labs Basenam 12/20/12 1355 12/20/12 0450 12/19/12 0320 12/18/12 0425 CALCIUM 8.2* 7.8* 8.5 -- MAGNESIUM 0.66* 0.71 0.80 -- PHOS -- 4.9* 4.8* 4.4 Recent Labs [facility] 12/20/12 0450 12/19/12 0320 12/18/12 0425 12/16/12 0440 12/13/12 2200 AST -- -- -- 49* 30 ALT -- -- -- 21 10 ALKPHOS -- -- -- 32* 29* BILITOT -- -- -- 0.8 1.0 BILIDIR -- -- -- 0.2 0.2 LDH 220 270* 306* -- -- Recent Labs Basenam 12/20/12 1355 INR 1.4* PT 17.1* PTT [...] KIMBALL MD, PGY-1 12/20/2012 Team A Pager #[phone] * Cody Posada MD - 12/19/2012 6:16 PM EDT ID CONSULT PROGRESS NOTE Patient was not seen and examined today, but chart was reviewed. She remains hemodynamically stable and afebrile. WBC count within a normal range. HIV was negative.Stool culture at [facility] has been finalized as negative. Her clinical [...] methimazole for >10 years) who presented to [facility] 6 days ago with watery/bloody diarrhea [...] returning positive (12/13/12). She was transferred to [facility] on 12/13/12 after daily labs revealed a drop in platelets from 151 to 66, increase of Cr from 0.8 to 1.2, and elevated LDH at 1187 (all per OSH). [facility] labs confirmed thrombocytopenia at 46 (currently 44), increasing Creatinine (1.4 at [facility] admission, currently 1.74) LDH of 672, dropping hemoglobin (Per OSH, 14 at initial admit, 11.9 at [facility] admit, currently 10.8), and low haptoglobin (<10). [...] 2/3 albumin, 1/3 plasma today given normal GUTARI98 activity. - Will plan to treat again [...] to this. Now that we know her OAKTMJ84 is normal, she no longer requires the [...] She rec'd 1 u RBCs to date [id number] was normal at admission Based on my [...] Trotter MD - 12/19/2012 7:50 AM EDT [facility]IENT FOLLOW UP PATIENT: Anum Henriquez : 1960 ROOM: [address] [place] [address] ID: 52 y.o. 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 Subjective: Feels lousy as she could not sleep well, abdominal pain better, only had 2 somewhat formed BM's yesterday. [place] SOB and had hypoxia in afternoon but [...] cultures negative for Campylobacter and Shiga toxin GEUDXE13 normal level IMPRESSION/ RECOMMENDATIONS: 52 yo female with microangiopathic hemolytic anemia/thrombocytopenia and non oliguric acute kidney injury having plasma exchange daily , currently without any laboratory of clinical indication of renal replacement therapy. [id number] normal Today is day 5 of plasma exchange LDH still elevated, platelets still <150 noted but improving, creatinine seems to be stable for 3 days now. If no improvement is noted we may consider biopsy. KIANA, and cultures (shiga/campylobacter) noted to be negative Renal dose of medications Avoid nephrotoxins Seen and Discussed with Dr. Sergo Gomes MD Nephrology Fellow Pager # [phone] Renal Attending: The patient was examined together [...] edema Pertinent Recent labs Recent Labs Basename 12/19/1231912/18/1242412/17/12 1300 WBC 8.9 7.7 6.9 HGB 7.8* 7.9* 6.2* HCT 23.2* 22.4* 18.3* PLATELET 123* 99* 65* Recent Labs Basename 12/19/1231912/18/12 0425 12/17/12 0400 NA 145 140 141 K 3.7 4.2 3.3* CL 104 104 108* CO2 28 29 24 BUN 41* 41* 37* CREATININE 2.19* 2.28* 2.25* Recent Labs Basename 12/16/12 0440 12/13/12 2200 AST 49* 30 ALT 21 10 ALKPHOS 32* 29* BILITOT 0.8 1.0 BILIDIR 0.2 0.2 Recent Labs Basename 12/19/12 03212/18/12 0425 12/17/12 0400 12/15/12 0350 CALCIUM 8.5 [...] colonoscopy Raad Bolaños MD PhD Gastroenterology Fellow ([id number]) * Rehana John T - 12/19/2012 5:52 AM EDT Inpatient Hematology/Oncology/SCT Progress Note Patient info: Name: Anum Henriquez : 1960 PCP: BAKARI COSTELLO APRN PCP phone number: [phone] Date of Admission: 12/13/2012 ( Hospital Day 6 days ) Service: Hem/Onc Team B - Pager [phone] Responsible Attending:Ankit Ohara MD ID: Anum Henriquez is a 52 y.o. 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 Now receiving plasma exchange Day 5 (7/10). Hospital Problem List: Patient Active Problem List [...] NEUTROABS 7.21* 5.75 5.12 Recent Labs Basename 12/19/12 0320 12/18/12 0425 12/17/12 0400 NA 145 140 141 K 3.7 4.2 3.3* CL 104 104 108* CO2 28 29 24 BUN 41* 41* 37* CREATININE 2.19* 2.28* 2.25* Recent Labs Basename 12/19/12 0320 12/18/12 0425 12/17/12 0400 12/15/12 0350 CALCIUM 8.5 8.1* 8.2* -- MAGNESIUM 0.80 0.83 -- 0.72 PHOS 4.8* 4.4 -- 3.1 Recent Labs Basename 12/19/12 0320 12/18/12 0425 12/17/12 0400 12/16/12 0440 12/13/12 2200 AST -- [...] KIMBALL MD, PGY-1 12/19/2012 Team A Pager #[phone] * Jose Kaur, DRU - 12/18/2012 6:00 PM EDT Post endoscopy [...] 15 minutes for functional there ex Pager: [phone] GIANNA HDZ OT Occupational Therapy Rehabilitation Department * Betsy Froman, PT - 12/18/2012 11:54 AM EDT Physical Therapy Treatment Note Visit #: 07/21 Patient profile: Pt. is a 52 y.o. female admitted on 12/13/2012 by Fabi Grimm MD w/ PMH of [facility] on methimazole, transferred from Medicine with clinical [...] minutes Total timed interventions: 15 minutes Pager: [phone] BETSY FORMAN PT Physical Therapy Rehabilitation Department [...] Trotter MD - 12/18/2012 8:51 AM EDT [facility] FOLLOW UP PATIENT: Anum Henriquez : 1960 ROOM: [address] [place] [address] ID: 52 y.o. female admitted for microangiopathic [...] of clinical indication of renal replacement therapy. [id number], expected to be back today Stool cultures pending, LDH still elevated, platelets still <150 noted but improving, creatinine seems to be stable for 2 days now and may represent that in the next couple of days it will start to decrease, if this is not the case and [id number] is negative will consider renal biopsy ANCA's, hepatitis C noted to be within normal limits. Renal dose of medications Avoid nephrotoxins Seen and Discussed with Dr. Sergo Gomes MD Nephrology Fellow Pager # [phone] Renal Attending: The patient was examined together [...] methimazole for >10 years) who presented to [facility] 6 days ago with watery/bloody diarrhea [...] returning positive (12/13/12). She was transferred to [facility] on 12/13/12 after daily labs revealed a drop in platelets from 151 to 66, increase of Cr from 0.8 to 1.2, and elevated LDH at 1187 (all per OSH). [facility] labs confirmed thrombocytopenia at 46 (currently 44), increasing Creatinine (1.4 at [facility] admission, currently 1.74) LDH of 672, dropping hemoglobin (Per OSH, 14 at initial admit, 11.9 at [facility] admit, currently 10.8), and low haptoglobin (<10). [...] JALEEL REYNOSO MD 12/18/2012 * John Kimball T - 12/18/2012 6:51 AM EDT Inpatient Hematology/Oncology/SCT Progress Note Patient info: Name: Anum Henriquez : 1960 PCP: BAKARI COSTELLO APRN PCP phone number: [phone] Date of Admission: 12/13/2012 ( Hospital Day 5 days ) Service: Hem/Onc Team B - Pager [phone] Responsible Attending:Ankit Ohara MD ID: Anum Henriquez [...] C4 Complement 7/8 - 4 (low) TSH 12/16 - 3.68 [...] KIMBALL MD, PGY-1 12/18/2012 Team A Pager #[phone] * Luis E Trotter MD - 12/17/2012 5:34 PM EDT [facility] FOLLOW UP PATIENT: Anum Henriquez : 1960 ROOM: [address] [place] [address]-A ID: 52 y.o. female admitted for diarrhea, [...] of clinical indication of renal replacement therapy. [id number] and stool cultures pending LDH still elevated, [...] at a plateau * Mary Jane Silva, RADHA - 12/17/2012 2:47 PM EDT Nutrition Progress [...] methimazole for >10 years) who presented to [facility] 6 days ago with watery/bloody diarrhea [...] returning positive (12/13/12). She was transferred to [facility] on 12/13/12 after daily labs revealed a drop in platelets from 151 to 66, increase of Cr from 0.8 to 1.2, and elevated LDH at 1187 (all per OSH). [facility] labs confirmed thrombocytopenia at 46 (currently 44), increasing Creatinine (1.4 at [facility] admission, currently 1.74) LDH of 672, dropping hemoglobin (Per OSH, 14 at initial admit, 11.9 at [facility] admit, currently 10.8), and low haptoglobin (<10). [...] rashes or lesions ACCESS: Non-tunneled pheresis catheter, LUIS A Current laboratory data: Recent Labs Basename 12/17/12 0400 12/16/12 0440 12/15/12 0350 12/14/12 0549 12/13/12 2200 WBC 6.7 6.4 6.3 8.3 8.7 HGB 7.0* 7.5* 9.2* 10.8* 11.9 HCT 19.7* 22.2* 25.6* 31.8* 34.4 PLATELET 58* 42* 41* 44* 46* NEUTROABS 5.16 4.69 4.35 5.70 -- Recent Labs Basename 12/17/12 0400 12/16/120 12/15/12 0350 12/14/12 0549 12/13/12 2200 NA 141 139 139 138 138 K 3.3* 4.1 3.2* -- -- CL 108* 111* 113* 114* 113* CO2 24 22 20* 19* 18* BUN 37* 33* 26* 18 14 CREATININE 2.25* 2.29* 2.12* 1.74* 1.45* Recent Labs Basename 12/17/12 0400 12/16/120 12/15/12 0350 12/14/12 0216 12/13/12 2200 [...] evening did not get sent out to [place] until yesterday evening. Results will not likely [...] Name: Anum Henriquez : 1960 PCP: BAKARI CSOTELLO APRN PCP phone number: [phone] Date of Admission: 12/13/2012 ( Hospital Day 4 days ) Service: Hem/Onc Team B - Pager [phone] Responsible Attending:Fabi Bliss MD ID: Anum Henriquez [...] 0610 77.8 kg (171 lb 8.3 oz) 12/13/12 202 73.6 kg (162 lb 4.1 oz) Admit [...] CREATININE 2.25* 2.29* 2.12* Recent Labs Basename 12/17/1239912/16/1243912/15/12 03512/13/12 2200 CALCIUM 8.2* 8.1* 7.9* -- MAGNESIUM -- -- 0.72 0.55* PHOS -- -- 3.1 1.4* Recent Labs Basename 12/17/1239912/16/1243912/15/12 03512/13/12 2200 AST -- 49* -- 30 ALT [...] KIMBALL MD, PGY-1 12/17/2012 Team A Pager #[phone] ++++++++++++++++++++++++++++++++++++++++++++++++++++++++++++++++ Attending Addendum: I personally saw, examined [...] is negative. 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 [id number] pending - should be back today. 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 ID - shigatoxin, stool culture and campylobacter pending. HIV negative. Will consult GI for any other ideas on the bloody diarrhea - does not seem like typical CDiff. * Luis E Trotter MD - 12/16/2012 12:45 PM EDT [facility] FOLLOW [facility] PATIENT: Anum Henriquez : 1960 ROOM: [address] [place] [address] ID: 52 y.o. female admitted for acute [...] of clinical indication of renal replacement therapy. [id number], ANCAs and stool cultures pending LDH still [...] Sergo Gomes MD Nephrology Fellow Pager # [phone] Renal Attending: The patient was examined together [...] Office of Care Management (OCM) / Clinical Grape Cutter (CRC) Initial Assessment Care reviewed with hematology/blood [...] ??? aspirin 81 mg EC tablet ??? Rowbcjmadgl-Kgqnemrcx-Zpe C-Mn 500-400 mg Cap ??? Santa-3 Fatty Acids-Vitamin E (OMEGA-3 FISH OIL) 1,000-5 mg-unit Cap ??? CALCIUM ORAL Allergies Allergen Reactions ??? Erythromycin Base Subjective: States she feels a little confused today. Complains of a headache. F Previous functional status: Patient was independent with mobility/ambulation, transfers, ADL's, IADL's. 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 Current functional status: Is ambulating independently in room> [x} No Rehab referral: [x} Yes Home set up: Single story home with no steps to enter. Family and social supports: with grown son and daughter that live locally. Has lived in [facility] [place] [facility] all of her life. Mother and father are in a usp close by. Many friends and well connected in the community. Extended Emergency Contact Information Primary Emergency Contact: Liu Henriquez Relation: Durable Power of Charter And Tour Bus Driver for Healthcare Secondary Emergency Contact: Liu Roberts Relation: Sibling Father: Venita Vora Advance directives: None on file. States she has a copy at home. Code status: Full Code Insurance: Commercial CBA Blue Financial Issues: [x} No Referral to financial services: [x} No Preferred Pharmacy: [address] outpatient pharmacy. DME: No Home Health Agency: [x} No IV Access: Double lumen pheresis catheter and PICC Home Infusion: No [employer] HR DEVELOPER Referral: Rebecca Tinoco [employer] DEVELOPER Referral indicated: [x} No Primary Care Physician: BAKARI COSTELLO APRN [phone] Primary [facility] Corn Husker: Admitted on Dr. Bliss's service. Referring Corn Husker: N/A Potential discharge needs: Undetermined Anticipated barriers to discharge: Undetermined Transportation at discharge: Spouse or family member. Plan: CRC will continue to monitor progress, follow for continuity of care and assist with discharge planning. No future appointments. Gorge Bishop RN Clinical Grape Cutter Office of Care Management Pager [phone] * Jaleel Reynoso MD - 12/16/2012 9:06 [...] methimazole for >10 years) who presented to [facility] 6 days ago with watery/bloody diarrhea [...] returning positive (12/13/12). She was transferred to [facility] on 12/13/12 after daily labs revealed a drop in platelets from 151 to 66, increase of Cr from 0.8 to 1.2, and elevated LDH at 1187 (all per OSH). [facility] labs confirmed thrombocytopenia at 46 (currently 44), increasing Creatinine (1.4 at [facility] admission, currently 1.74) LDH of 672, dropping hemoglobin (Per OSH, 14 at initial admit, 11.9 at [facility] admit, currently 10.8), and low haptoglobin (<10). [...] A Current laboratory data: Recent Labs Basename 12/16/1243912/15/12 0350 12/14/12 0549 12/13/12 2200 WBC 6.4 6.3 8.3 8.7 HGB 7.5* 9.2* 10.8* 11.9 HCT 22.2* 25.6* 31.8* 34.4 PLATELET 42* 41* 44* 46* NEUTROABS 4.69 4.35 5.70 -- Recent Labs Basename 12/16/1243912/15/1234912/14/12 0549 12/13/12 220 NA 139 139 138 138 K 4.1 [...] 220 INR 1.3* PT 16.5* PTT 27 FIBRINOGEN [...] be considered. We will continue to await [id number] results, the results of which will factor [...] PCP: BAKARI COSTELLO APRN PCP phone number: [phone] Date of Admission: 12/13/2012 ( Hospital Day 3 days ) Service: Hem/Onc Team B - Pager [phone] Responsible Attending:Fabi Bliss MD ID: Anum Henriquez [...] HYDROmorphone, prochlorperazine, prochlorperazine Labs: Recent Labs Basename 12/16/12 0440 12/15/12 0350 12/14/12 0549 WBC 6.4 6.3 [...] KIMBALL MD, PGY-1 12/16/2012 Team B Pager #[phone] ++++++++++++++++++++++++++++++++++++++++++++++++++++++++++++++++ Attending Addendum: I personally saw, examined [...] PCP: BAKARI COSTELLO APRN PCP phone number: [phone] Date of Admission: 12/13/2012 ( Hospital Day 2 days ) Service: Hem/Onc Team B - Pager [phone] Responsible Attending:Fabi Bliss MD ID: Anum Henriquez [...] neg Stool wbc + Stool cx OSH 7/2 - negative Pertinent radiology/diagnostic studies: KUB 12/15: [...] Stool culture (including e coli O157:H7 pending). 1/ OSH c diff screen +. Repeat here [...] of today), Nausea, ? c diff, - 1/3 [...] ALEMAN MD, PGY-1 12/15/2012 Team B Pager #[phone] ++++++++++++++++++++++++++++++++++++++++++++++++++++++++++++++++ Attending Addendum: I personally saw, examined [...] (third stool sample ) At outside hosp. [id number] is pending. * Jaleel Reynoso MD - [...] methimazole for >10 years) who presented to [facility] 6 days ago with watery/bloody diarrhea [...] returning positive (12/13/12). She was transferred to [facility] on 12/13/12 after daily labs revealed a drop in platelets from 151 to 66, increase of Cr from 0.8 to 1.2, and elevated LDH at 1187 (all per OSH). [facility] labs confirmed thrombocytopenia at 46 (currently 44), increasing Creatinine (1.4 at [facility] admission, currently 1.74) LDH of 672, dropping hemoglobin (Per OSH, 14 at initial admit, 11.9 at [facility] admit, currently 10.8), and low haptoglobin (<10). [...] 220 INR 1.3* PT 16.5* PTT 27 FIBRINOGEN [...] 80 mL. Vital signs: Pre (0930 hrs): PT=489/83; P=95; R=18; T=36.2 Post (1158 hrs): TX=417/80; P=82; R=18; T=36.5 Complications noted (if any): [...] be considered. We will continue to await [id number] results, the results of which will factor [...] methimazole for >10 years) who presented to [facility] 6 days ago with watery/bloody diarrhea [...] returning positive (12/13/12). She was transferred to [facility] on 12/13/12 after daily labs revealed a drop in platelets from 151 to 66, increase of Cr from 0.8 to 1.2, and elevated LDH at 1187 (all per OSH). [facility] labs confirmed thrombocytopenia at 46 (currently 44), increasing Creatinine (1.4 at [facility] admission, currently 1.74) LDH of 672, dropping hemoglobin (Per OSH, 14 at initial admit, 11.9 at [facility] admit, currently 10.8), and low haptoglobin (<10). [...] 66 mL. Vital signs: Pre (1945 hrs): PY=814/87; P=93; R=18; T=98.3 Post (2200 hrs): UU=111/90; P=87; R=18; T=99.3 Complications noted (if any): [...] may be considered. We will also await [id number] results, which will highly factor into our [...] that she has arrived on floor. * Melba Bass - 12/14/2012 6:09 PM EDT Inpatient Progress Note Day of Admission: 12/13/2012 PCP: BAKARI COSTELLO APRN, Pt ID:52 y.o. Female presents to [facility] with abdominal pain and bloody diarrhea with [...] exchange transfusion this afternoon. MELBA BASS MD [facility] [phone] * Cristobal Reid RN - 12/14/2012 5:30 PM EDT [facility] NURSING DATABASE Name: ANUM HENRIQUEZ Date of : 1960 AGE 52 y.o. Address: [address] [place] [address] [address] [facility] [phone] (home) Mobile: No relevant phone numbers on [...] MD aspirin 81 mg EC tablet 12/03/09 Utifpdjsrod-Abnyqraua-Ovf C-Mn 500-400 mg Cap 12/03/09 Santa-3 Fatty Acids-Vitamin E (OMEGA-3 FISH OIL) 1,000-5 mg-unit Cap 12/03/09 CALCIUM ORAL 12/03/09 For outpatient procedures: This patient has been informed that they require a emergency medical technician/driver to drive them home after this procedure. In the absence of a emergency medical technician/driver, IR will not be able to perform [...] ??? aspirin 81 mg EC tablet ??? Vhcbirqbrvx-Ikwblfpeb-Pab C-Mn 500-400 mg Cap ??? Santa-3 Fatty Acids-Vitamin E (OMEGA-3 FISH OIL) 1,000-5 [...] plasma exchange. Patient will be moved to West (room 129) and hematology is going to take over service for the patient. 1600-Report given to DRU Ruvalcaba on . Patient will go to interventional radiology and then to herazw room. 1654-Patient being transported now. Notified the doctor and his nurse on . * Gianna Bowens RN - 12/14/2012 1:36 AM EDT Nursing Progress Note 12/13/1219991862-5640 Shift Events: 1999 - [facility] A/O with stable VS on R/A. C/O transverse lower abd pain 09/18described as aching with pain goal 2-310. MAEW. Hypoactive bowel sounds. Abd S/R/TTP. C/O [...] Resolved ID: 52 y.o. Female presents to [facility] with abdominal pain and bloody diarrhea History of Present Illness: HPI Mrs. Henriquez is a 52F w/ h/o hyperthyroidism, who presents with a several day history of abdominalpain and bloody diarrhea. History obtained by patient and from OSH records. Pt originally presented[facility] ED on 12/10 after experiencing [...] of note, pt has been on fentanyl TENNIS DESK TEAM MEMBER since Sunday. Pt was transferred to [facility] for further management. Pt afebrile and hemodynamically [...] ??? aspirin 81 mg EC tablet ??? Cwidhkplfiy-Sjjmovkqn-Pdb C-Mn 500-400 mg Cap ??? Santa-3 Fatty Acids-Vitamin E (OMEGA-3 FISH OIL) 1,000-5 mg-unit Cap ??? CALCIUM ORAL Allergies: Allergies Allergen Reactions ??? Erythromycin Base ??? Milk CIS - Localized Reaction ??? 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 Cannot see free air. CXR /: blunting of the costophrenic angles L>R, no [...] fact that pt has been on fentanyl TENNIS DESK TEAM MEMBER for over 48 hours. No tinkling bowel sounds on exam, no rebound or guarding, as well, nausea is under control. I am wary about placing an NGT given her thrombocytopenia - will hold off for now and monitor closely. Rest of plan outlined below: # Admit to Medicine - Blue Team, pager [phone] # Hemorrhagic colitis, abdominal pain: - will [...] 12/28/2012 9:39 AM EDTAssociated Order(s): SCAN DOC: PAINT BOOTH OPERATOR * Provider, Scanning - 12/28/2012 9:38 AM [...] to the planned procedure. Hand Hygiene: The gem carver did perform hand hygiene prior to line insertion. Catheter type: PICC Lot number: [id number] Procedure Technique: Skin was prepped with chlorhexidine. [...] to the planned procedure. Hand Hygiene: The gem carver did perform hand hygiene prior to line insertion. Catheter type: PICC Lot number: [id number] Procedure Technique: Skin was prepped with chlorhexidine. [...] 5 OR OLDER VIR PROCEDURE NOTE ACC#: [id number] PROCEDURE: Non-tunneled right internal jugular triple lumen [...] (PICC) Teaching Sheet Peripherally inserted central catheters (xufd-pt-xgcu) (PICC) are used when you need IV [...] midline catheter? PICC lines are used for preformer impregnated fabrics treatments. PICC lines may be used for [...] can be set up via the nurse [place]man to help you. What are possible complications [...] Efficacy, Safety, Use, and Administration of Cathflo, [employer] 2005 * Plan of Care - Alicia Rodriguez RN - 12/27/2012 1:27 AM EDT Problem: Pain, Acute (Adult, Obstetric) Goal: Acute Pain: Acceptable Pain Control/Comfort Level - Pain, Acute (Adult, Obstetric) Outcome: Present (see interventions, notes) Patient received 2 mg IV morphine prior to bed for 6/10 pain. Patient described as pulsating, mostly in R zoroastrian but neck aching as well. Heating pad [...] while ambulating. * Plan of Care - Alejandrnia Sher RN - 12/23/2012 1:10 PM EDT [...] needs known to staff. 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 She has been alert and oriented X [...] Graves disease initially admitted in transfer from [facility] with hemorrhagic colitis and thrombocytopenia on [...] ANUM HENRIQUEZ Ordered By: ANKIT OHARA MR#: [id number] LOC: 1WST /Sex: 1960 (52 years), Female [...] UA Negative Appearance UA Clear Clear Spec Lucien UA 1.007 1.002 - 1.030 Color UA Light Yellow Yellow RBC UA 8 (*) 0 - 4 /HPF WBC UA 6 (*) 0 - 5 /HPF Gran Cast UA 2 (*) <=0 /LPF PRO-BRAIN NATRIURETIC PEPTIDE Component Value Range ProBNP 2411 (*) <=125 pg/mL URINE CULTURE Component Value Range Urine Culture Value: Patient Name: ANUM HENRIQUEZ Ordered By: ANKIT OHARA MR#: [id number] LOC: 1WS /Sex: 1960 (52 years), Female PROCEDURE: Urine Culture SOURCE: U ICath COLLECTED: 12/20/2012 16:49 STARTED: 12/20/2012 17:07 PRELIMINARY REPORT Preliminary Report Verified:12/21/2012 12:39 Greater than 100,000 cfu/ml Staphylococcus aureus BLOOD CULTURE Component Value Range Blood Culture Value: Patient Name: ANUM HENRIQUEZ Ordered By: ANKIT OHARA MR#: [id number] LOC: /Sex: 1960 (52 years), Female PROCEDURE: Blood [...] see how these changes evolve. Assessment: Anum Henriuqez is a 52 y.o. female who has [...] Aleman MD PGY-2 Neurology Resident Personal Pager [phone] Consult Pager [phone] Addendum: I saw and evaluated the patient [...] vancomycin * Plan of Care - Yeimi Carracso RN - 12/20/2012 3:44 AM EDT Problem: [...] PMH of hyperthyroidism on methimazole who presentedto [facility] with several days of abdominal pain and diarrhea that progressed from watery to bloody. 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 She was transferred to [facility] on 12/13 after 3 days at OSH (day 6 of illness) Labs on admission to [facility] were notable for WBC = 13, HgB 14.5, Plts 151 w/ fecal leukocytes in the stool and negative Cdiff studies. A drop in platelets (151 to 66) and bump in her creatinine prompted transfer to [facility] with concern for evolving TTP-HUS. Throughout her [...] bloody just before she sought care at [facility]. After a few days at [facility], and just prior to transfer to [facility], she feels her diarrhea had improved somewhat and were becoming less bloody withmore substance. Over the past 24h, she has had 3 small brown soft bowel movements. She endorses some lingering abdominal pain but reports this is improved from the blayne of her illness at [facility]. She is most troubled now by [...] the concerns over Cdiff as the possible emergency medical technician/driver. From a GI perspective, endoscopy, especially lower [...] anemia Raad Bolaños MD PhD Gastroenterology Fellow ([id number]) GI Staff Patient seen and examined this [...] anxiety and comfortable MRI experience. Close cousin (PUNCH BOX TENDER) roomed in overnight and was very helpful [...] use of a walker at this point. Persona items andcall system are in reach. Purposeful Hourly Rounding [...] 52 y.o. female admitted w/ PMH of [place] on methimazole, transferred from Medicine with clinical [...] 0 minutes BETSY FORMAN PT 12/17/2012 Pager: [phone] Physical Therapy Rehabilitation Department * Initial Assessments [...] Social History: Patient lives with her in [facility]. Home Setup: house is two story, [...] PT. Pt' first cousin, who is an PANTOGRAPH WATCHER, present. Cognitive Status/Behavior: alert, oriented to person, [...] minutes Total timed interventions: 0 minutes Pager: [phone] GIANNA HDZ OT 12/17/2012 Occupational Therapy Rehabilitation [...] Nephrology appt. arranged. Vancomycin 750 mg IV [id number] for 3 weeks total since line removal [...] and from OSH records. Pt originally presentedto [facility] ED on 12/10 after experiencing [...] of note, pt has been on fentanyl TENNIS DESK TEAM MEMBER since Sunday. Pt was transferred to [facility] for further management. Pt afebrile and hemodynamically [...] acutely agitated, was mumbling in coherently in kittitian and tanzanian and exam revealed acute exaggeration of upper [...] donors except for one unit of plasma [id number] which as donated b y female who [...] several days after stopping methimazole. She will f/uwith Endocrine. Important Lab Data: Recent Labs Basename 12/27/1235612/26/1234112/25/12 1204 WBC 8.2 6.1 6.7 HGB 9.0* 8.3* 8.8* PLATELET 317 231 264 Recent Labs Basename 12/27/1235612/26/1234112/25/12 0414 NA 138 141 140 K 3.5 3.5 3.6 CO2 23 24 27 CL 104 106 106 BUN 10 11 10 CREATININE 2.10* 2.05* 2.01* CALCIUM 8.3* 8.5 8.3* MAGNESIUM 0.81 0.80 0.80 PHOS 4.4 4.1 3.4 ANIONGAP 11 11 7 Recent Labs Basename 12/24/12 1300 PROT -- ALBUMIN -- BILITOT 0.4 BILIDIR 0.1 AST -- ALT -- ALKPHOS -- Recent Labs Basename 12/27/1235612/26/12 03412/25/12 1204 LDH 257* 255* 288* URICACID -- -- -- Recent Labs Basename 12/27/1235612/26/12 1031 12/25/12 1526 INR 1.0 -- 1.1 [...] (L) C4 Complement 10 4 (L) 17 JACKY Ab See below Haptoglobin <10 75 70 JACKY Ab (Ab to Extractable Nuclear Ag): SS-A/Ro Ab, Ig.0 (H) (ref <1.0) SS-B/La Ab, Ig.5 (H) (ref <1.0) Sm Ab, IgG: <0.2 (neg) ELECTRICAL ELECTRONICS TECHNICIAN Ab, IgG: <0.2 (neg) Scl 70 Ab, [...] fluid. Consistent with colitis, infectious or inflammatory. [facility] read of above film: Marked thickening of [...] with provider. Continued medications, unchanged Dose Details Ahcnnenwlox-Ygepygdzh-Cpx C-Mn 500-400 mg Cap Santa-3 Fatty Acids-Vitamin E (OMEGA-3 FISH OIL) 1,000-5 [...] 12/30/2012 12:45PM, Provider: Dr. Rob Mejia, Location: [place] [address], Your Inpatient Doctor(s) at [facility]: Attendings: Dr. Cristina, Dr. Ohara, Dr. Bliss Fellow: Dr. Gomez Residents: Dr. Guzmán, Dr. Aleman Security Installation Technician: Dr. Kimball General Instructions Other Provider Recommendations [...] INSERTED CENTRAL CATHETER (PICC): AFTER YOUR VISIT ([facility]ONE[facility]) Appointment with Primary Care Provider: 12/30/2012 12:45PM, Provider: Dr. Rob Mejia, Location: [address] [address], Your To Do List Future Appointments: Provider: Department: Dept Phone: Center: 01/01/2013 12:35 PM Fabi Bliss MD Hematology/Oncology [phone] [facility] 01/13/2013 3:30 PM Brian Velazco MD Nephrology [phone] [facility] 01/14/2013 10:05 AM Minor Kebede MD Endocrinology [phone] [facility] 01/14/2013 10:30 AM Clovis Varner MD Endocrinology [phone] [facility] Future Orders Please Complete By Expires OPAT: Order / Recommendation for Post Discharge IV Antibiotic Management [[id number] CPT(R)] Process Instructions: If no progress note charted, please enter Clinical details in comments. Scheduling Instructions: Comments: Please Fax all results to: OPAT Program Infectious Disease Section [facility], [place] [address] FAX: Line care instructions per [facility] OPAT Program protocol. After hours, please contact the Infectious Disease Physician continuous improvement specialist at . If this order was signed greater than 72 hours prior to [facility] discharge, please call to confirm the accuracy [...] Diagnosis: Bacteremia; HUS Referral for Outpatient Antibiotics [[id number] CPT(R)] Process Instructions: Scheduling Instructions: Comments: Questions: Responses: Patient location post discharge Home Start date 12/28/2012 Responsible MD post discharge contact info Out Patient Antibiotic Team Vendor / contact information [place] Service requested IV abx Referral to Home Health [[id number] CPT(R)] Process Instructions: Scheduling Instructions: Comments: DOCUMENTATION FOR VNA SERVICES (INCLUDING THOSE PATIENTS WITH MEDICARE COVERAGE REQUIRING HOME VNA SERVICES AND/OR HOSPICE SERVICES) This is preliminary information related to the patient's needs and confirmation of Face to Face Encounter. The denoted information will require completion and an electronic signature by the physicianupon finalization of these orders. PATIENT'S LOCATION: Address: [address] [place] [address] [address] [facility] [address] Tel. #: [phone] (home) Special Education Case Manager's Name: In discussion with the attending physician, it is certified that this patient is under their care and that they, or a nurse practitioner, clinical nurse specialist or physician's office manager executive assistant who is working directly with them, [...] free T4, please [facility] these labs [facility] Attn: Jinny Please send Sunday CMP to Renal [facility], Attn: Dr. Velazco Please send INR to Attn: Dr. Rob Mejia, Responsible Attending: Tyson Patel MD Last documented weight (kg): 68.9 kg (151 lb 14.4 oz) Last documented height (cm): 170.2 cm (5' 7) Please Fax all results to: OPAT Program Infectious Disease Section [facility], [place] [address] FAX: START OF CARE DATE: 12/28/12 All VNA agencies which cover the area of patient's residence have been reviewed, either verbally tanvir writing, and patient/family have chosen the home health care agency as follows for home services: HOME HEALTH CARE AGENCY: [facility] PHONE: [phone] FAX: [phone] VENDOR: [facility] EQUIPMENT SERVICE TECHNICIAN [facility] Address [address] [place] [id number] Equipment ordered: IV antibiotic and line supplies. Ordering Provider: Dr. John Kimball Ordering Provider Phone #: [phone] [place] [address] Questions: Responses: Agency name and contact information [facility] Patient location post discharge HOME What services are requested Registered Nurse Start date 12/28/2012 Responsible MD post discharge contact info OPAVero Walker standard [EQ135 Custom] Process Instructions: Scheduling Instructions: Comments: FWW Deliver to room #129 prior to 11 am on Wednesday 12/27 height 170.2 cm (5' 7), weight 69.9 kg (154 lb 1.6 oz) Questions: Responses: Vendor Name/Contact information: [facility] Provider Contact Information: BAKARI COSTELLO APRN JOSE [address] [place] [address] Signed: FLYNN FRAUSTO MD Discharged: 12/27/2012 * [...] Reason for Consult: We are seeing Anum Kay Florence at the request of Dr. Fontana for [...] to improve so [facility] to the medicine service. Of note, C. Diff on 12/13 returned positive despite 2 prior negative tests. At [facility] patient was initially continued on Cipro and Flagyl. She was noted to have decreasing plts and worsening renal function. 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 She was transferred to the hematology service. IR placed a cath for plasma exchange on 12/14, [id number] was sent, and patient was started on plasma exchange 12/14. Nephrology was also consulted and recommended checking ANCA and complement levels, as well. Cipro was stopped on 12/16 for concern of contributing to TTP/HUS, but Flagyl was continued due to positive C. diff at the OSH. CT scan was re-read at [facility] and was read as showing findings concerning for pseudomembranous colitis. C. diff at [facility] was negative. 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 Upon transfer to [facility], she was found to havemicroangiopathic hemolytic anemia [...] is sent, please call the microbiology lab ([phone]) so they will not cancel the stool [...] >1000). She was t ransferred to the [facility] on 12/13. A peripheral smear showed schistocytes, [...] well as propylthiouracil) has been linked with VKV-JRKB-ygfuxufyen vasculitis on multiple occassions (Nojovani CrumY, Yashay S, Collins S, et al. Clinical characteristics [...] felt like something sharp was poking her. aware Problem: Trauma/Injury Risk (Adult, Obstetric) Goal: [...] PM EDT Problem: Knowledge Deficit (Adult, Pediatric, [place], NICU, Obstetric) Goal: Knowledge Deficit: Knowledgeable about Subject/Topic Outcome: Outcome achieved Date Met: 12/15/12 Peripherally Inserted Central Catheter (PICC) Teaching Sheet: Discussed risks/benefits of PICC with pt. Verbalizes understanding. Peripherally inserted central catheters (zdee-xt-hlre) (PICC) are used when you need IV [...] midline catheter? PICC lines are used for preformer impregnated fabrics treatments. PICC lines may be used for [...] can be set up via the nurse Oreman to help you. What are possible complications [...] Efficacy, Safety, Use, and Administration of [employer], [employer] 2005 * Plan of Care - [...] purple lumen. x2 lumen PICC ordered for 12/16. Mg+ 0.72 and 2 grams repleted IV. [...] Reason for Consult:: We are seeing Anum Henriquez at the request of Drs. Gomez [...] methimazole for >10 years) who presented to [facility] 6 days ago with watery/bloody diarrhea [...] returning positive (12/13/12). She was transferred to [facility] on 12/13/12 after daily labs revealed a drop in platelets from 151 to 66, increase of Cr from 0.8 to 1.2, and elevated LDH at 1187 (all per OSH). [facility] labs confirmed thrombocytopenia at 46 (currently 44), increasing Creatinine (1.4 at [facility] admission, currently 1.74) LDH of 672, dropping hemoglobin (Per OSH, 14 at initial admit, 11.9 at [facility] admit, currently 10.8), and low haptoglobin (<10). [...] to <10% by both removing autoantibodies against OOERHN68 and replacing deficient levels. As the etiology [...] is recommended to administer TPE while awaiting FIILCX69 results so as not to miss an opportunity to effectively treat the otherwise often-fatal TTP. 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 Once these criteria are met, a taper regimen may be considered. We will also await YHIFII15 results, which will highly factor into our [...] on the optimal way to interpret the ODMJIH22 findings, when they are back. A very low AAPJRZ33 level (<5%), (especially when combined with the presence of an inhibitor (i.e. antibody)) is highly specific for TTP and the diagnosis is essentially confirmed if this result is returned. However, the test is only about 2/3 sensitive....that is, a negative result (normal levels of ZSWUNR26) does not rule out TTP, since as many as 30% of TTP patients do not have loss of JNYKAG78; this presumably involves modulation of another component of the pathway that involves cleaving LMW VWR multimers but these other components are not as well defined, and there is no clinically useful test for these, currently. Also, using OQQFUW08 level itself to assess treatment efficacy is not recommended, since some patients recover clinically after a course of plasmapheresis, but never recover their ARLPAB15 levels. This phenomenon supports the model that that TTP is likely a two-hit disease. Loss of VNOYZF77 is not sufficient to bring on clinical disease but some other stressor is needed. It can be speculated that Anum's recent GI symptoms may constitute that second stressor. Also noteworthy is that those patients that recover clinically yet continue to have low DUEJNT52 levels appear to be more likely to [...] or problematic foods. She was admitted to [facility] on 12/10/12 where they gave [...] 0.8 prior. Therefore, she was transferred to [facility] yesterday for further management. Hospital medicine calls [...] for 10+ years. 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 Lives at home with her . They speak [place] as their primary language and I believe they are [place], although she was born here in . [...] systems reviewed and negative. Meds: reviewed in MAR, notable for following: Scheduled Meds: ??? sodium [...] 0630) ??? DISCONTD: sodium chloride 0.9% Stopped (12/13/124) PRN Meds:.fentaNYL (PF), midazolam, acetaminophen, ondansetron, ondansetron, zolpidem, HYDROmorphone, prochlorperazine, prochlorperazine, DISCONTD: HYDROmorphone Outpatient medications: No current facility-administered medications on file prior to encounter. Current Outpatient Prescriptions on File Prior to Encounter Medication Sig Dispense Refill ??? methimazole (TAPAZOLE) 10 mg tablet take 1/2 tablet by mouth once daily 45 tablet 3 ??? aspirin 81 mg EC tablet ??? Uwgstewypdr-Adhofbmts-Ivg C-Mn 500-400 mg Cap ??? Santa-3 Fatty Acids-Vitamin E (OMEGA-3 FISH OIL) 1,000-5 [...] arms, face, or legs Labs: Labs at [facility]: 12/10/12: WBC count of 13.1 [...] ADAMTS 13 activity and removing autoantibodies against GXBKSR74,etc. Therefore, we will check an ADAMTS 13 [...] with hemolytic-uremic syndrome. Am J Kidney Dis. 2002;41(5):E14.) TTP Reference: Chivo FRANCIS. Clinical practice. Thrombotic thrombocytopenic purpura. N Engl J Med. 2005October 12;354(18):1927-35. Review. PLAN: -transfer to [facility] and to inpatient hematology service, Dr. 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 No acute indication for OUTBOUND TELEMARKETER. Renal dose meds. Avoid nephrotoxins. Seen and Discussed w/ Dr. Sergo greene Pager [phone] Renal Attending: The patient was examined together [...] Comments LAB SCAN 01/29/2013 11:49 AM EDT PAINT BOOTH OPERATOR SCAN 12/28/2012 9:39 AM EDT LAB SCAN [...] 12/26/2012 10:31 AM EDT TYPE AND SCREEN ([facility]/JENNIFER) Routine 12/26/2012 10:31 AM EDT FREE THYROXINE [...] 6:40 AM EDT DIFFERENTIAL, AUTOMATED Routine 12/24/19 13 5:45 AM EDT BLOOD CULTURE Routine 12/23/2012 [...] 6:24 PM EDT DIFFERENTIAL, AUTOMATED STAT 12/23/19 13 1:16 PM EDT BLOOD CULTURE Routine 12/22/2012 [...] 12/20/2012 12:20 PM EDT TYPE AND SCREEN ([facility]/JENNIFER) Routine 12/20/2012 12:20 PM EDT H. PYLORI [...] 7:40 AM EDT DIFFERENTIAL, AUTOMATED Routine 12/20/19 13 3:20 AM EDT CBC (WITH DIFF) Routine [...] XR CHEST PA AND LATERAL Routine 12/18/19 8:31 PM EDT RED TUBE HOLD Routine [...] 12/17/2012 4:00 AM EDT STOOL CULTURE SCREEN ([facility]/APD/NL) Routine 12/17/2012 3:32 AM EDT CAMPYLOBACTER ANTIGEN Routine 12/17/2012 3:32 AM EDT CRYPTOSPORIDIUM OOCYST ANTIGEN ([facility]/APD) Routine 12/17/2012 3:32 AM EDT SHIGA TOXIN ASSAY Routine 12/17/2012 3:3 2 AM EDT GIARDIA/CRYPTOSPORIDIUM ANTIGENS ([facility]P/APD/NLH) Routine 12/17/2012 3:32 AM EDT GIARDIA ANTIGEN ([facility]/APD/NLH) Routine 12/17/2012 3:32 AM EDT STOOL CULTURE Routine 12/17/2012 3:32 AM EDT MRI BRAIN WO CONTRAST Routine 12/16/2012 9:02 PM EDT HIV SCREEN, 4TH GENERATION ([facility]/APD/NLH) Routine 12/16/2012 6:[address] PICC [...] ACCESS NON-DIALYSIS Routine 12/14/2012 6:05 PM EDT [id number] ACTIVITY STAT 12/14/2012 2:0 2 PM EDT CYTOPLASMIC NEUTROPHILIC AB Routine 12/14/2012 12:03 PM EDT PROTEINASE-3 ANTIBODY Routine 12/14/2012 12:03 PM EDT MYELOPEROXIDASE AB Routine 12/14/2012 12 :03 PM EDT ABO/RH TYPING STAT 12/14/2012 9:47 AM EDT RETICULOCYTE COUNT STAT 12/14/2012 9: 47 AM EDT ANTIBODY SCREEN STAT 12/14/2012 9:47 AM EDT TYPE AND SCREEN ([facility]/JENNIFER) STAT 12/14/2012 9:47 AM EDT DIRECT ANTIGLOBULIN TEST STAT 12/14/2012 9:47 AM EDT PERIPHERAL SMEAR REVIEW Routine 07/06/20 13 5:49 AM EDT SMEAR REVIEW REPORT Routine 12/14/2012 5 :49 AM EDT SCAN, PERIPHERAL BLOOD Routine 3 5:49 AM EDT DIFFERENTIAL, AUTOMATED Routine 12/15/19 13 5:49 AM EDT CBC (WITH DIFF) Routine 12/14/2012 5:49 AM EDT BASIC METABOLIC PANEL (NON-FASTING) Routine 12/14/2012 5:49 AM EDT LACTATE DEHYDROGENASE Timed 12/14/2012 2:16 AM EDT THYROID STIMULATING IMMUNOGLOBULIN-GONZÁLES Routine 12/13/2012 10:42 PM EDT CYTOPLASMIC NEUTROPHILIC [...] SCAN EXT O RDR/RSLT * SCAN DOC: PAINT BOOTH OPERATOR (12/28/2012 9:39 AM EDT) Anatomical Region Laterality [...] Jarvis MD CHEMISTRY ORDERABLES BAR NOE * Place PICC Line: Contact Vascular Access Page [phone] (12/27/2012 12:12 PM EDT) Narrative Edvin Brian [...] to the planned procedure. Hand Hygiene: The gem carver did perform hand hygiene prior to line insertion. Catheter type: PICC Lot number: [id number] Procedure Technique: Skin was prepped with chlorhexidine. [...] to the planned procedure. Hand Hygiene: The gem carver did perform hand hygiene prior to line insertion. Catheter type: PICC Lot number: [id number] Procedure Technique: Skin was prepped with chlorhexidine. [...] x10(3)/mc L CERNER MILLENNIUM Blood specimen (specimen) 12/27/2012 3:57 AM EDT 12/27/2012 4:03 AM EDT Luis E Trtoter MD HEMATOLOGY ORDERABLE S Performing Organization Address [facility] Co de Phone Number BAR PINEDAIUM * Prothrombin Time (12/27/2012 3:57 AM EDT) PT 14.0 12.0 - 15.0 sec [facility] MILLENNIUM Comment: [facility] Transfusion Committee Guidelines: INR less than 2.0, PTT less than OR equal to 43.5 seconds, or Fibrinogen greater than or equal to 100 mg/dl indicate adequate procoagulant activity for hemostasis in patients without underlying bleeding disorders. INR 1.0 0.9 - 1.[address] [facility] MILLENNIUM Blood specimen (specimen) 12/27/2012 3:57 AM EDT 12/27/2012 4:03 AM EDT Narrative Resulting Agency Comment Spec In Lab Haris Jarvis MD HEMATOLOGY ORDERABLE S Performing Organization Address [facility] Co de Phone Number CERELIO ARCOSENNIUM * Phosphorus (12/27/2012 3:57 AM EDT) Phosphorus 4.4 2.5 - 4.5 mg/dL [facility] Beryl Wind TransportationENNIUM Blood specimen (specimen) 12/27/2012 3:57 AM EDT 12/27/2012 4:03 AM EDT Narrative Resulting Agency Comment Spec In Lab Fabi Bliss MD CHEMISTRY ORDERA BLES Performing Organization Address [facility]/ZIP Co de Phone Number CERELIO ARCOSENNIUM * Magnesium (12/27/2012 3:57 AM EDT) Magnesium 0.81 0.69 - 1.07 mmol/L CERNER MILLENNIUM Blood specimen (specimen) 12/27/2012 3:57 AM EDT 12/27/2012 4:03 AM EDT Narrative Resulting Agency Comment Spec In Lab Fabi Bliss MD CHEMISTRY ORDERA BLES Performing Organization Address [facility] Co de Phone Number [facility] MILLENNIUM * (ABNORMAL) Lactate Dehydrogenase (12/27/2012 3:57 AM EDT) Pathologist [facility] LDH 257(H) 110 - 220 unit/L CERNER MILLENNIUM Blood specimen (specimen) 12/27/2012 3:57 AM EDT 12/27/2012 4:03 AM EDT Narrative Resulting Agency Comment Spec In Lab Fabi Bliss MD CHEMISTRY ORDERA BLES Performing Organization Address [facility] de Phone Number CERNER MILLENNIUM * (ABNORMAL) Basic Metabolic Panel (non-fasting) (12/27/2012 3:57 AM EDT) Pathologist [facility] Glucose Lvl 108 60 - 199 mg/dL CERNER MILLENNIUM Comment:Diabetes: >=200 mg/d L plus symptoms BUN 10 8 - 18 mg/dL CERNER MILLENNIUM Creatinine 2.10(H) 0.70 - 1.20 mg/dL CERNER MILLENNIUM Comment: Please note that the pediatric reference intervals supplied above were not validated at [facility]. Results from pediatric patients should [...] MILLENNIUM MPV 10.5 9.0 - 12.0 fL BAR NOE Blood specimen (specimen) 12/27/2012 3:57 AM EDT 12/27/2012 4:03 AM EDT Narrative Resulting Agency Comment Spec In Lab Luis E Trotter MD HEMATOLOGY ORDERABLE S Performing Organization Address City/[facility] Co de Phone Number [facility] * (ABNORMAL) APTT (12/26/2012 10:31 AM EDT) PTT 36(H) 25 - [address] [facility] ISRRALEDIGN[facility] GILBERTIUM Comment: Recommended therapeutic PTT range for full dose unfractionated heparin is 80-114 seconds. Blood specimen (specimen) 12/26/2012 10:31 AM EDT 12/26/2012 10:37 AM EDT Narrative Resulting Agency Comment Spec In Lab Haris Jarvis MD HEMATOLOGY ORDERABLE S Performing Organization Address [facility] de Phone Number BAR ARCOSDIGN[facility] GIL[facility]ERTBRII * Antibody screen (12/26/2012 10:31 AM EDT) Ab Screen Interp Negative BAR NOE Expires at [id number] on: [id number] [facility] ISRRAELDIGN[facility] GILBERTBRII Blood specimen (specimen) 12/26/2012 10:31 AM EDT 12/26/2012 10:43 AM EDT Narrative Resulting Agency Comment Spec In Lab Ankit Ohara MD BLOOD BANK LAB ORDER VIKAS Performing Organization Address City/[facility] Co de Phone Number BAR NOE * ABO/Rh Typing (12/26/2012 10:31 AM EDT) ABORH Type AB Pos BAR NOE Blood specimen (specimen) 12/26/2012 10:31 AM EDT 12/26/2012 10:43 AM EDT Narrative Resulting Agency Comment Spec In Lab Ankit Ohara MD BLOOD BANK LAB ORDER VIKAS Performing Organization Address City/[facility]/ZIP Co de Phone Number [facility] * Free Thyroxine Index (12/26/2012 3:42 AM EDT) FTI 6.8 4.5 - 9.5 mcg/dL [facility] Comment: Females: 5. 5-10.5 mcg/dL Blood specimen (specimen) 12/26/2012 3:42 AM EDT 12/26/2012 3:47 AM EDT Narrative Resulting Agency Comment Spec In Lab Luis E Trotter MD CHEMISTRY ORDERABLES Performing Organization Address [facility] de Phone Number [facility] * T3 (12/26/2012 3:42 AM EDT) Pathologist [facility] T3, Total 77 75 - 170 ng/dL [facility] Blood specimen (specimen) 12/26/2012 3:42 AM EDT 12/26/2012 3:47 AM EDT Narrative Resulting Agency Comment Spec In Lab Luis E Trotter MD CHEMISTRY ORDERABLES Performing Organization Address [facility] de Phone Number [facility] * T Uptake (12/26/2012 3:42 AM EDT) [facility] T Uptake 0.99 0.80 - 1.30 ratio [facility] Comment: Tup assay is directly proportional to Thyroid binding protein concentration, thus FT4 Index = TT4/Tup. Cord Blood Reference Range: ??0.74-1.28. Blood specimen (specimen) 12/26/2012 3:42 AM EDT 12/26/2012 3:47 AM EDT Narrative Resulting Agency Comment Spec In Lab Luis E Trotter MD CHEMISTRY ORDERABLES Performing Organization Address [facility] de Phone Number [facility] * T4 (12/26/2012 3:42 AM EDT) Pathologist [facility] T4, total 6.7 5.1 - 10.8 mcg/dL [facility] Comment: Reference Range: [place] Cord Blood: ??6.9-14.4 mcg/dL Females: ??7.2-14.2 mcg/dL Pediatric ranges: ??Interpret with caution-ranges have not been verified Blood specimen (specimen) 12/26/2012 3:42 AM EDT 12/26/2012 3:47 AM EDT Narrative Resulting Agency Comment Spec In Lab Luis E Trotter MD CHEMISTRY ORDERABLES Performing Organization Address [facility] [facility] de Phone Number CERNER MILLENNIUM * TSH (12/26/2012 3:42 AM EDT) TSH 1.97 0.27 - 4.20 mcIU/mL CERNER MILLENNIUM Blood specimen (specimen) 12/26/2012 3:42 AM EDT 12/26/2012 3:47 AM EDT Narrative Resulting Agency Comment Spec In Lab Luis E Trotter MD CHEMISTRY ORDERABLES Performing Organization Address [facility] de Phone Number CERNER MILLENNIUM * [...] Gran % 0.30 0.00 - 0.66 % [facility] Comment: Immature granulocytes(IG's)percentage and absolute count will include metamyelocytes, myelocytes, and promyelocytes. Blood smears from CBCs yielding IG's will be scanned manually for concordance. If this scan disagrees with the automated IG or if promyelocytes are noted, a manual differential will be performed. Petty Gran Abs 0.02 0.00 - 0.05 x10(3)/mcL [facility] Blood specimen (specimen) 12/26/2012 3:42 AM EDT 12/26/2012 3:46 AM EDT Luis E Trotter MD HEMATOLOGY ORDERABLE S Performing Organization Address [facility] de Phone Number [facility] * Phosphorus (12/26/2012 3:42 AM EDT) Phosphorus 4.1 2.5 - 4.5 mg/dL [facility] Blood specimen (specimen) 12/26/2012 3:42 AM EDT 12/26/2012 3:46 AM EDT Narrative Resulting Agency Comment Spec In Lab Fabi Bliss MD CHEMISTRY ORDERA ERICK Performing Organization Address [facility] Phone Number [facility] * Magnesium (12/26/2012 3:42 AM EDT) Magnesium 0.80 0.69 - 1.07 mmol/L [facility] Blood specimen (specimen) 12/26/2012 3:42 AM EDT 12/26/2012 3:46 AM EDT Narrative Resulting Agency Comment Spec In Lab Fabi Bliss MD CHEMISTRY ORDERBhumi SUAREZ Performing Organization Address [facility] Phone Number [facility] * (ABNORMAL) Lactate Dehydrogenase (12/26/2012 3:42 AM EDT) LDH 255(H) 110 - 220 unit/L [facility] Blood specimen (specimen) 12/26/2012 3:42 AM EDT 12/26/2012 3:46 AM EDT Narrative Resulting Agency Comment Spec In Lab Fabi Bliss MD CHEMISTRY ORDERA ERICK CERNER MILLENNIUM * (ABNORMAL) Basic Metabolic Panel (non-fasting) (12/26/2012 3:42 AM EDT) Glucose Lvl 99 60 - 199 mg/dL CERNER MILLENNIUM Comment:Diabetes: >=200 mg/d L plus symptoms BUN 11 8 - 18 mg/dL CERNER MILLENNIUM Creatinine 2.05(H) 0.70 - 1.20 mg/dL CERNER MILLENNIUM Comment: Please note that the pediatric reference intervals supplied above were not validated at [facility]. Results from pediatric patients should [...] Trotter MD CHEMISTRY ORDERABLES Performing Organization Address [facility] Co de Phone Number CERNER MILLENNIUM * (ABNORMAL) CBC (with Diff) (12/26/2012 [...] MD HEMATOLOGY ORDERABLE S Performing Organization Address City/[facility]/ZIP Co de Phone Number BAR PINEDAIUM * Vancomycin, trough (12/25/2012 6:29 PM [...] Jarvis MD CHEMISTRY ORDERABLES Performing Organization Address [facility] Co de Phone Number BAR SwiftKeyIUM * APTT (12/25/2012 3:26 PM EDT) PTT 31 25 - 35 sec CERNER MILLENNIUM Comment: Recommended therapeutic PTT range for full dose unfractionated heparin is 80-114 seconds. Blood specimen (specimen) 12/25/2012 3:26 PM EDT 12/25/2012 3:39 PM EDT Narrative Resulting Agency Comment Spec In Lab Haris Jarvis MD HEMATOLOGY ORDERABLE S Performing Organization Address [facility] de Phone Number CERELIO [facility] * Prothrombin Time (12/25/2012 3:26 PM EDT) PT 14.5 12.0 - 15.0 sec CERNER MILLENNIUM Comment: [facility] Transfusion Committee Guidelines: INR less than 2.0, PTT less than OR equal to 43.5 seconds, or Fibrinogen greater than or equal to 100 mg/dl indicate adequate procoagulant activity for hemostasis in patients without underlying bleeding disorders. INR 1.1 0.9 - 1.1 CERNER MILLENNIUM Blood specimen (specimen) 12/25/2012 3:26 PM EDT 12/25/2012 3:39 PM EDT Narrative Resulting Agency Comment Spec In Lab Haris Jarvis MD HEMATOLOGY ORDERABLE S Performing Organization Address [facility] Co de Phone Number CERPuridify * Duplex for DVT, arm, bilat (12/25/2012 3:18 PM EDT) VB Text Report Department: Vascular Surgery Lab Patient: [id number] (ANUM HENRIQUEZ) CPT Code: 61657 ICD-9: 451.84 Referring Physician: HARIS JARVIS Indication: [...] 12:04 PM EDT) Smear Review Report ? [facility] ? Provider: ?? HARIS JARVIS ? Pt. Name: ?? ANUM HENRIQUEZ N ? Acc #: ?[id number] ? Pt. ? Col Date: ?? 12/25/2012 [...] the most recent ? previous smear (see [id number]). Compared to the previous, the current ? material shows fewer schistocytes. Note is further made of the declining ? LDH and increasing haptoglobin and platelet count over time, both of which ? 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 [facility] 12/25/2012 12:0 4 PM EDT Haris Jarvis MD PATHOLOGY/CYTOLOGY O RDERABLES BAR ARCOSENNIUM * (ABNORMAL) Differential, Automated (12/25/2012 12:04 PM [...] MILLENNIUM MPV 10.6 9.0 - 12.0 fL CERNER MILLENNIUM Blood specimen (specimen) 12/25/2012 12:04 PM EDT 12/25/2012 12:08 PM EDT Narrative Resulting Agency Comment Spec In Lab Haris Jarvis MD HEMATOLOGY ORDERABLE S BAR NOE * Haptoglobin (12/25/2012 12:04 PM EDT) Haptoglobin 70 30 - 200 mg/dL [facility] MILLENNIUM Comment: Haptoglobin concentrations in newborns is low to undetectable; however, adult concentrations are usually attained by 4 months of age. ??No sex-related differences for haptoglobin have been detected. Blood specimen (specimen) 12/25/2012 12:04 PM EDT 12/25/2012 12:08 PM EDT Narrative Resulting Agency Comment Spec In Lab Haris Jarvis MD CHEMISTRY ORDERABLES BAR NOE * (ABNORMAL) Lactate Dehydrogenase (12/25/2012 12:04 PM EDT) LDH 288(H) 110 - 220 unit/L [facility] Blood specimen (specimen) 12/25/2012 12:04 PM EDT 12/25/2012 12:08 PM EDT Narrative Resulting Agency Comment Spec In Lab Haris Jarvis MD CHEMISTRY ORDERABLES Performing Organization Address [facility] Co de Phone Number [facility] * Peripheral Smear Review (12/25/2012 12:04 PM EDT) Periph Smear Rev See Comment [facility] Comment: When completed by the Pathologist, report [id number] will display under Hematopathology Reports. Blood specimen (specimen) 12/25/2012 12:04 PM EDT 12/25/2012 12:08 PM EDT Narrative Resulting Agency Comment Spec In Lab Haris Jarvis MD HEMATOLOGY ORDERABLE S Performing Organization Address [facility] de Phone Number [facility] * C4 Complement (12/25/2012 12:04 PM EDT) C4 Complement 17 10 - 40 mg/dL [facility] Blood specimen (specimen) 12/25/2012 12:04 PM EDT 12/25/2012 12:08 PM EDT Narrative Resulting Agency Comment Spec In Lab Haris Jarvis MD CHEMISTRY ORDERABLES Performing Organization Address [facility] de Phone Number [facility] * (ABNORMAL) C3 Complement (12/25/2012 12:04 PM EDT) C3 Complement 86(L) 90 - 180 mg/dL [facility] Blood specimen (specimen) 12/25/2012 12:04 PM EDT 12/25/2012 12:08 PM EDT Narrative Resulting Agency Comment Spec In Lab Haris Jarvis MD CHEMISTRY ORDERABLES Performing Organization Address [facility] Co de Phone Number BAR NOE * Erythropoietin Level (12/25/2012 12:04 PM EDT) Erythropoietin 17 4 - 24 mIU/mL BAR NOE Blood specimen (specimen) 12/25/2012 12:04 PM EDT 12/25/2012 2:17 PM EDT Narrative Resulting Agency Comment Spec In Lab Haris Jarvis MD CHEMISTRY ORDERABLES BAR NOE * Duplex Study for DVT, Bilat legs (12/25/2012 11:06 AM EDT) VB Text Report Department: Vascular Surgery Lab Patient: [id number] (ANUM HENRIQUEZ) CPT Code: 55845 ICD-9: 451.19 Referring Physician: HARIS JARVIS Indication: [...] posterior tibial vein). Progression from previous exam 7/11/13. No evidence of femoral-popliteal deep venous thrombosis. [...] MD HEMATOLOGY ORDERABLE S BAR PINEDAIUM * Phosphorus (12/25/2012 4:14 AM EDT) Phosphorus 3.4 2.5 - 4.5 mg/dL CERELIO PINEDAIUM Blood specimen (specimen) 12/25/2012 4:14 AM EDT 12/25/2012 4:22 AM EDT Narrative Resulting Agency Comment Spec In Lab Fabi Bliss MD CHEMISTRY ORDERA BLES Performing Organization Address [facility] Co de Phone Number BAR PINEDAIUM * Magnesium (12/25/2012 4:14 AM EDT) Magnesium 0.80 0.69 - 1.07 mmol/L CERELIO PINEDAIUM Blood specimen (specimen) 12/25/2012 4:14 AM EDT 12/25/2012 4:22 AM EDT Narrative Resulting Agency Comment Spec In Lab Fabi Bliss MD CHEMISTRY ORDERA BLES Performing Organization Address [facility]/ZIP Co de Phone Number BAR PINEDAIUM * (ABNORMAL) Lactate Dehydrogenase (12/25/2012 4:14 AM EDT) LDH 249(H) 110 - 220 unit/L CERELIO PINEDAIUM Blood specimen (specimen) 12/25/2012 4:14 AM EDT 12/25/2012 4:22 AM EDT Narrative Resulting Agency Comment Spec In Lab Fabi Bliss MD CHEMISTRY ORDERA BLES Performing Organization Address City/[facility]/ZIP Co de Phone Number BAR PINEDAIUM * (ABNORMAL) Basic Metabolic Panel (non-fasting) (12/25/2012 4:14 AM EDT) [facility] Glucose Lvl 99 60 - 199 mg/dL CERNER MILLENNIUM Comment:Diabetes: >=200 mg/d L plus symptoms BUN 10 8 - 18 mg/dL CERNER MILLENNIUM Creatinine 2.01(H) 0.70 - 1.20 mg/dL CERNER MILLENNIUM Comment: Please note that the pediatric reference intervals supplied above were not validated at [facility]. Results from pediatric patients should [...] Lab Luis E Trotter MD CHEMISTRY ORDERABLES [facility] PNP [employer] * (ABNORMAL) CBC (with Diff) (12/25/2012 4:14 AM EDT) Pathologist [facility] WBC 5.5 4.0 - 10.0 x10(3)/mcL CERNER [...] Luis E Trotter MD HEMATOLOGY ORDERABLE S [facility] * Duplex for DVT, arm, bilat (12/24/2012 1:45 PM EDT) [facility] VB Text Report Department: Vascular Surgery Lab Patient: [id number] (ANUM HENRIQUEZ) CPT Code: 60958 ICD-9: 451.84 Referring Physician: ANKIT OHARA Indication: [...] PM EDT Ankit Ohara MD VASCULAR ORDERABLES VASCUBASE * Vancomycin, trough (12/24/2012 1:00 PM EDT) Vanc Trough 14.2 mg/L [facility] Comment: Therapeutic range for complicated infections such [...] In Lab Ankit Ohara MD CHEMISTRY ORDERABLES CERELIO MILLENNIUM * (ABNORMAL) Differential, Automated (12/24/2012 1:00 PM [...] EDT Ankit Ohara MD HEMATOLOGY ORDERABLE S BAR ARCOSENNIUM * (ABNORMAL) CBC (with Diff) (12/24/2012 1:00 [...] MILLENNIUM MPV 11.5 9.0 - 12.0 fL CERNER MILLENNIUM Blood specimen (specimen) 12/24/2012 1:00 PM EDT 12/24/2012 1:17 PM EDT Narrative Resulting Agency Comment Spec In Lab Ankit Ohara MD HEMATOLOGY ORDERABLE S Performing Organization Address [facility] Co de Phone Number [facility] * Direct antiglobulin test (12/24/2012 1:00 PM EDT) Pathologist [facility] SEN Negative CERNER MILLENNIUM Blood specimen (specimen) 12/24/2012 1:00 PM EDT 12/24/2012 1:22 PM EDT Narrative Resulting Agency Comment Spec In Lab Ankit Ohara MD BLOOD BANK LAB ORDER VIKAS [facility] * (ABNORMAL) Reticulocyte Count (12/24/2012 1:00 PM EDT) Pathologist [facility] Retic Ct % 1.5 0.5 - 2.4 [...] MD HEMATOLOGY ORDERABLE S Performing Organization Address [facility] de Phone Number BAR ARCOSENNIUM * Haptoglobin (12/24/2012 1:00 PM EDT) Haptoglobin 75 30 - 200 mg/dL [facility] MILLENNIUM Comment: Haptoglobin concentrations in newborns is low to undetectable; however, adult concentrations are usually attained by 4 months of age. ??No sex-related differences for haptoglobin have been detected. Blood specimen (specimen) 12/24/2012 1:00 PM EDT 12/24/2012 1:17 PM EDT Narrative Resulting Agency Comment Spec In Lab Ankit Ohara MD CHEMISTRY ORDERABLES Performing Organization Address [facility] Phone Number BAR PINEDAIUM * Bilirubin, total and direct (12/24/2012 1:00 PM EDT) Total Bilirubin 0.4 0.2 - 1.3 mg/dL [facility] MILLEN[facility]UM Bili, Direct 0.1 0.0 - 0.3 mg/dL CERNER MILLENNIUM Blood specimen (specimen) 12/24/2012 1:00 PM EDT 12/24/2012 1:17 PM EDT Narrative Resulting Agency Comment Spec In Lab Ankit Ohara MD CHEMISTRY ORDERABLES Performing Organization Address [facility] de Phone Number BAR ARCOSENNIUM * SCAN DOC: LAB (12/24/2012 9:41 AM EDT) Narrative 12/24/2012 9:41 AM EDT Procedure Note Provider, Scanning - 12/24/2012 9:41 AM EDT Scanning Provider MEDIA MGR SCAN EXT O RDR/RSLT * Phosphorus (12/24/2012 3:58 AM EDT) Phosphorus 2.9 2.5 - 4.5 mg/dL CERNER MILLENNIUM Blood specimen (specimen) 12/24/2012 3:58 AM EDT 12/24/2012 3:58 AM EDT Narrative Resulting Agency Comment Spec In Lab Fabi Bliss MD CHEMISTRY ORDERA ERICK Performing Organization Address [facility] Co de Phone Number [facility] ISRRAELENNIUM * Magnesium (12/24/2012 3:58 AM EDT) Magnesium 0.74 0.69 - 1.07 mmol/L CERNER MILLENNIUM Blood specimen (specimen) 12/24/2012 3:58 AM EDT 12/24/2012 3:58 AM EDT Narrative Resulting Agency Comment Spec In Lab Fabi Bliss MD CHEMISTRY ORDERA BLES Performing Organization Address [facility] Co de Phone Number [facility] * (ABNORMAL) Lactate Dehydrogenase (12/24/2012 3:58 AM EDT) LDH 237(H) 110 - 220 unit/L CERNER MILLENNIUM Blood specimen (specimen) 12/24/2012 3:58 AM EDT 12/24/2012 3:58 AM EDT Narrative Resulting Agency Comment Spec In Lab Fabi Bliss MD CHEMISTRY ORDERA BLERenuka Performing Organization Address [facility] Co de Phone Number [facility] MILLENNIUM * (ABNORMAL) Basic Metabolic Panel (non-fasting) (12/24/2012 3:58 AM EDT) [facility] Glucose Lvl 95 60 - 199 mg/dL CERNER MILLENNIUM Comment:Diabetes: >=200 mg/d L plus symptoms BUN 7(L) 8 - 18 mg/dL CERNER MILLENNIUM Creatinine 1.59(H) 0.70 - 1.20 mg/dL CERNER MILLENNIUM Comment: Please note that the pediatric reference intervals supplied above were not validated at [facility]. Results from pediatric patients should [...] Luis E Trotter MD CHEMISTRY ORDERABLES CERNER [facility] * (ABNORMAL) Differential, Automated (12/24/2012 3:45 AM [...] MD HEMATOLOGY ORDERABLE S CERNER MILLENNIUM * Blood culture (12/24/2012 3:45 AM EDT) Blood Culture ? Patient Name: ANUM HENRIQUEZ Eliza ?Ordered By: ANKIT OHARA ? MR#: [id number] ?LOC: ??1WST ? /Sex: ??1960 (52 years), [...] days. ? BAR NOE Blood specimen (specimen) 12/24/2012 3:45 AM EDT 12/24/2012 7:35 AM EDT Narrative Resulting Agency Comment Spec In Lab Ankit Ohara MD MICROBIOLOGY - BLOOD ORDERABLES BAR NOE * (ABNORMAL) CBC (with Diff) (12/24/2012 3:45 AM EDT) WBC 6.0 4.0 - 10.0 x10(3)/mcL BAR ARCOSENNIUM RBC 2.66(L) 3.93 - 5.22 x10(6)/mcL CERNER MILLENNIUM Hemoglobin 7.9(L) 11.2 - 15.7 gm/dL CERELIO MILLENNIUM Hematocrit 23.8(L) 34.0 - 45.0 % CERELIO MILLENNIUM MCV 89.5 79.0 - 94.0 fL CERELIO ARCOSENNIUM MCH 29.7 26.6 - 32.2 pg BAR ARCOSENNIUM MCHC 33.2 32.0 - 36.5 gm/dL CERELIO MILLENNIUM Platelets 221 145 - 370 x10(3)/mcL CERELIO MILLENNIUM RDWSD 51.0(H) 35.0 - 46.0 fL BAR ARCOSENNIUM RDWCV 16.1(H) 10.9 - 14.4 % BAR ARCOSENNIUM MPV 11.2 9.0 - 12.0 fL BAR ARCOSENNIUM Blood specimen (specimen) 12/24/2012 3:45 AM EDT [...] BANK LAB ORDER VIKAS Performing Organization Address [facility] de Phone Number [facility] * Vancomycin, trough (12/23/2012 1:29 PM EDT) Vanc Trough 9.7 mg/L [facility] Comment: Therapeutic range for complicated infections such [...] Ohara MD CHEMISTRY ORDERABLES Performing Organization Address [facility] Co de Phone Number [facility] * Transfuse RBC (12/23/2012 10:14 AM EDT) Ankit Ohara MD NURSING TREATMENT OR DERABLES - BLOOD ADMIN * Blood culture (12/23/2012 9:15 AM EDT) Pathologist [facility] Blood Culture ? Patient Name: ANUM HENRIQUEZ ?Ordered By: ANKIT OHARA ? MR#: [id number] ?LOC: ??1WST ? /Sex: ??1960 (52 years), [...] days. ? BAR PINEDAIUM Blood specimen (specimen) TOPOGRAPHY UNKNOWN / Unknown 12/23/2012 9:15 AM EDT 12/23/2012 9:31 AM EDT Comment:NO SOURCE PROVIDED Narrative Resulting Agency Comment Spec In Lab Ankit Ohara MD MICROBIOLOGY - BLOOD ORDERABLES Performing Organization Address City/[facility]/ZIP Co de Phone Number BAR PINEDAIUM * Prepare RBC (12/23/2012 6:40 AM EDT) Dispensed? Yes BAR NOE Blood specimen (specimen) 12/23/2012 6:40 AM EDT 12/23/2012 6:37 AM EDT Ankit Ohara MD BLOOD BANK PRODUCT O RDERABLES BAR PINEDAIUM * (ABNORMAL) Differential, Automated (12/23/2012 5:45 AM EDT) Neutrophils % 74.3(H) 34.0 - 71.0 % CERELIO ARCOSENNIUM Neutr Abs (ANC) 4.80 1.50 - 6.30 [...] MD HEMATOLOGY ORDERABLE S BAR ARCOSENNIUM * Blood culture (12/23/2012 5:45 AM EDT) Blood Culture ? Patient Name: ANUM HENRIQUEZ ?Ordered By: ANKIT OHARA ? MR#: [id number] ?LOC: ??1WST ? /Sex: ??1960 (52 years), [...] days. ? CERNER MILLENNIUM Blood specimen (specimen) 12/23/2012 5:45 AM EDT 12/23/2012 7:17 AM EDT Narrative Resulting Agency Comment Spec In Lab Ankit Ohara MD MICROBIOLOGY - BLOOD ORDERABLES Performing Organization Address City/[facility] Co de Phone Number BAR ARCOSENNIUM * Phosphorus (12/23/2012 5:45 AM EDT) Pathologist [facility] Phosphorus 2.9 2.5 - 4.5 mg/dL CERNER ISRRAELENNIUM Blood specimen (specimen) 12/23/2012 5:45 AM EDT 12/23/2012 6:08 AM EDT Narrative Resulting Agency Comment Spec In Lab Fabi Bliss MD CHEMISTRY ORDERA BLES BAR ARCOSENNIUM * Magnesium (12/23/2012 5:45 AM EDT) Magnesium 0.71 0.69 - 1.07 mmol/L CERNER MILLENNIUM Blood specimen (specimen) 12/23/2012 5:45 AM EDT 12/23/2012 6:08 AM EDT Narrative Resulting Agency Comment Spec In Lab Fabi Bliss MD CHEMISTRY ORDERA BLES Performing Organization Address [facility] de Phone Number CERNER MILLENNIUM * (ABNORMAL) Lactate Dehydrogenase (12/23/2012 5:45 AM EDT) Pathologist [facility] LDH 240(H) 110 - 220 unit/L CERNER MILLENNIUM Blood specimen (specimen) 12/23/2012 5:45 AM EDT 12/23/2012 6:08 AM EDT Narrative Resulting Agency Comment Spec In Lab Fabi Bliss MD CHEMISTRY ORDERA BLES Performing Organization Address [facility] de Phone Number CERNER MILLENNIUM * (ABNORMAL) Basic Metabolic Panel (non-fasting) (12/23/2012 5:45 AM EDT) Pathologist [facility] Glucose Lvl 92 60 - 199 mg/dL CERNER MILLENNIUM Comment:Diabetes: >=200 mg/d L plus symptoms BUN 11 8 - 18 mg/dL CERNER MILLENNIUM Creatinine 1.52(H) 0.70 - 1.20 mg/dL CERNER MILLENNIUM Comment: Please note that the pediatric reference intervals supplied above were not validated at [facility]. Results from pediatric patients should [...] MILLENNIUM MPV 10.7 9.0 - 12.0 fL BAR NOE Blood specimen (specimen) 12/23/2012 5:45 AM EDT 12/23/2012 6:08 AM EDT Narrative Resulting Agency Comment Spec In Lab Luis E Trotter MD HEMATOLOGY ORDERABLE S BAR NOE * Urine culture Urine (12/23/2012 1:45 AM EDT) Urine Culture ? Patient Name: ANUM HENRIQUEZ ?Ordered By: ANKIT OHARA ? MR#: [id number] ?LOC: ??1WST ? /Sex: ??1960 (52 years), [...] - GENER AL ORDERABLES Performing Organization Address City/[facility] Co de Phone Number [facility] * (ABNORMAL) Urinalysis with microscopic (12/23/2012 1:44 AM EDT) Glucose UA Negative Negative mg/dL [facility] Protein UA 100(A) Neg mg/dL [facility] MILLDIGN[facility] Bilirubin UA Negative Negative mg/dL CERNER MILLENNIUM Urobilinogen UA Normal mg/dL CERN ER MILLENNIUM pH UA 8.5(H) 5.0 - 8.0 [facility] MILLDIGN[facility] Blood UA Trace(A) Neg [facility] MILLENNIUM Ketones UA Negative mg/dL [facility] MILLENNIUM Nitrite UA Negative [facility] MILLENNIUM Leukocytes UA Negative mcL [facility] Appearance UA Clear Clear [facility] Spec Lucien UA 1.009 1.002 - 1.[address] [facility] MILLENNIUM Color UA Light Yellow Yellow [facility] MILLENNIUM RBC UA 2 0 - 4 /HPF [facility] MILLENNIUM WBC UA 2 0 - 5 /HPF [facility] MILLENNIUM Urine specimen (specimen) 12/23/2012 1:44 AM EDT 12/23/2012 1:58 AM EDT Narrative Resulting Agency Comment Spec In Lab Ankit Ohara MD URINE ORDERABLES Performing Organization Address [facility] de Phone Number [facility] * Helicobacter pylori Antigen Stool (12/22/2012 6:24 PM EDT) H pylori Antigen, Stool Negative Negative [facility] Comment: Test Performed by: [employer] [address], [place] [address] Professor Of Social Work: Jennifer Ramirez, Ph.D. Stool specimen (specimen) 12/22/2012 6:24 PM EDT 12/24/2012 2:42 PM EDT Narrative Resulting Agency Comment Spec In Lab Ankit Ohara MD MICROBIOLOGY - GENER AL ORDERABLES Performing Organization Address City/[facility]/ZIP Co de Phone Number [facility]ERNER MILLENNIUM * (ABNORMAL) Differential, Automated (12/22/2012 1:16 PM [...] EDT Ankit Ohara MD HEMATOLOGY ORDERABLE S BAR NOE * (ABNORMAL) CBC (with Diff) (12/22/2012 1:16 [...] Ankit Ohara MD HEMATOLOGY ORDERABLE S BAR PINEDAIUM * Blood culture (12/22/2012 1:16 PM EDT) Blood Culture ? Patient Name: ANUM HENRIQUEZ ?Ordered By: ANKIT HOARA ? MR#: [id number] ?LOC: ??1WST ? /Sex: ??1960 (52 years), [...] No growth at 4 days. ? BAR ARCOSDIGN[facility] Blood specimen (specimen) PERIPHERALLY INSERTED CENTRAL CATHETER / Unknown 12/22/2012 1:16 PM EDT 12/22/2012 1:26 PM EDT Narrative Resulting Agency Comment Spec In Lab Ankit Ohara MD MICROBIOLOGY - BLOOD ORDERABLES [facility] * Blood culture (12/22/2012 1:01 PM EDT) Blood Culture ? Patient Name: ANUM HENRIQUEZ ?Ordered By: ANKIT OHARA ? MR#: [id number] ?LOC: ??1WST ? /Sex: ??1960 (52 years), ? Female ? PROCEDURE: Blood Culture ?SOURCE: Blood ? COLLECTED: 12/22/2012 13:01 ? BODY SITE: Left Antecubital ? STARTED: 12/22/2012 13:12 ?FREE TEXT SOURCE: #1 ? FINAL REPORT ? Final Report ? Verified:2012 15:10 ? No growth at 5 days. ? PRELIMINARY REPORT ? Preliminary Report ? Verified:2012 15:10 ? No growth at 4 days. ? ELLIOTNER MILLENNIUM Blood specimen (specimen) ANTECUBITAL REGION STRUCTURE / Unknown 12/22/2012 1:01 PM EDT 12/22/2012 1:12 PM EDT Narrative Resulting Agency Comment Spec In Lab Ankit Ohara MD MICROBIOLOGY - BLOOD ORDERABLES [facility] * Blood culture (12/22/2012 12:45 PM EDT) Blood Culture ? Patient Name: ANUM HENRIQUEZ ?Ordered By: ANKIT OHARA ? MR#: [id number] ?LOC: ??1WST ? /Sex: ??1960 (52 years), ? Female ? PROCEDURE: Blood Culture ?SOURCE: Blood ? COLLECTED: 12/22/2012 12:45 ?FREE TEXT SOURCE: First Draw:PHERESIS ? STARTED: 12/22/2012 13:27 ? FINAL REPORT ? Final Report ? Verified:2012 15:10 ? No growth at 5 days. ? PRELIMINARY REPORT ? Preliminary Report ? Verified:2012 15:10 ? No growth at 4 days. ? [facility] Blood specimen (specimen) 12/22/2012 12:45 PM EDT 12/22/2012 1:26 PM EDT Comment:FIRST DRAW: Narrative Resulting Agency Comment Spec In Lab Ankit Ohara MD MICROBIOLOGY - BLOOD ORDERABLES [facility] * Vancomycin, trough (12/22/2012 9:30 AM EDT) [facility] Vanc Trough 21.4 mg/L [facility] Comment: Therapeutic range for complicated infections such [...] In Lab Ankit Ohara MD CHEMISTRY ORDERABLES [facility] * (ABNORMAL) Differential, Automated (12/22/2012 5:00 AM [...] Luis E Trotter MD HEMATOLOGY ORDERABLE S [facility]OS[facility] * Phosphorus (12/22/2012 5:00 AM EDT) Phosphorus 2.6 2.5 - 4.5 mg/dL [facility] Blood specimen (specimen) 12/22/2012 5:00 AM EDT 12/22/2012 5:08 AM EDT Narrative Resulting Agency Comment Spec In Lab Fbai Bliss MD CHEMISTRY ORDERA BLES Performing Organization Address [facility] de Phone Number [facility] * Magnesium (12/22/2012 5:00 AM EDT) Magnesium 0.71 0.69 - 1.07 mmol/L [facility] Blood specimen (specimen) 12/22/2012 5:00 AM EDT 12/22/2012 5:08 AM EDT Narrative Resulting Agency Comment Spec In Lab Fabi Bliss MD CHEMISTRY ORDERA BLES Performing Organization Address [facility] de Phone Number [facility] * (ABNORMAL) Lactate Dehydrogenase (12/22/2012 5:00 AM EDT) Pathologist [facility] LDH 232(H) 110 - 220 unit/L [facility] Blood specimen (specimen) 12/22/2012 5:00 AM EDT 12/22/2012 5:08 AM EDT Narrative Resulting Agency Comment Spec In Lab Fabi Bliss MD CHEMISTRY ORDERA BLES Performing Organization Address [facility] de Phone Number [facility] * (ABNORMAL) Basic Metabolic Panel (non-fasting) (12/22/2012 5:00 AM EDT) Pathologist [facility] Glucose Lvl 96 60 - 199 mg/dL [facility] Comment:Diabetes: >=200 mg/d L plus symptoms BUN 15 8 - 18 mg/dL [facility] Creatinine 1.53(H) 0.70 - 1.20 mg/dL [facility] MILLENNIUM Comment: result rechecked-[facility] Please note that the pediatric reference intervals supplied above were not validated at [facility]. Results from pediatric patients should be interpreted in conjunction to the patient's age, height and muscle mass. result rechecked- Please note that the pediatric reference intervals supplied above were not validated at [facility]. Results from pediatric patients should [...] - 10.5 mg/dL [facility]NI[facility] Comment: result rechecked-[facility] result rechecked- Corrected from 7.1 mg/dL [LOW] [...] Trotter MD CHEMISTRY ORDERABLES Performing Organization Address [facility]/ZIP Co de Phone Number [facility]ENNI[facility] * (ABNORMAL) CBC (with Diff) (12/22/2012 5:00 AM EDT) WBC 11.8(H) 4.0 - 10.0 x10(3)/mcL [facility] MILLENNI[facility] RBC 2.45(L) 3.93 - 5.22 x10(6)/mcL [facility] Hemoglobin 7.3(L) 11.2 - 15.7 gm/dL [facility] Hematocrit 22.0(L) 34.0 - 45.0 % [facility] MCV 89.8 79.0 - 94.0 fL [facility]ILLENNI[facility] MCH 29.8 26.6 - 32.2 pg [facility] MCHC 33.2 32.0 - 36.5 gm/dL [facility] Platelets 165 145 - 370 x10(3)/mcL [facility] RDWSD 45.8 35.0 - 46.0 fL [facility]ILL[facility]NI[facility] RDWCV 14.7(H) 10.9 - 14.4 % [facility] MPV 10.1 9.0 - 12.0 fL [facility] Blood specimen (specimen) 12/22/2012 5:00 AM EDT 12/22/2012 5:08 AM EDT Narrative Resulting Agency Comment Spec In Lab Luis E Trotter MD HEMATOLOGY ORDERABLE S Performing Organization Address [facility] Co de Phone Number [facility] * Fibrinogen (12/22/2012 5:00 AM EDT) Fibrinogen 326 175 - 450 mg/dL [facility] Blood specimen (specimen) 12/22/2012 5:00 AM EDT 12/22/2012 5:08 AM EDT Narrative Resulting Agency Comment Spec In Lab Ankit Ohara MD HEMATOLOGY ORDERABLE S Performing Organization Address City/[facility]/ZIP Co de Phone Number [facility]ILLEN[facility] * (ABNORMAL) APTT (12/22/2012 5:00 AM EDT) PTT 36(H) 25 - [address] [facility] MILLENNIUM Comment: Recommended therapeutic PTT range for full dose unfractionated heparin is 80-114 seconds. Blood specimen (specimen) 12/22/2012 5:00 AM EDT 12/22/2012 5:08 AM EDT Narrative Resulting Agency Comment Spec In Lab Ankit Ohara MD HEMATOLOGY ORDERABLE S Performing Organization Address [facility] de Phone Number [facility] * (ABNORMAL) Prothrombin Time (12/22/2012 5:00 AM EDT) PT 17.1(H) 12.0 - 15.0 sec [facility] Comment: [facility] Transfusion Committee Guidelines: INR less than 2.0, PTT less than OR equal to 43.5 seconds, or Fibrinogen greater than or equal to 100 mg/dl indicate adequate procoagulant activity for hemostasis in patients without underlying bleeding disorders. INR 1.4(H) 0.9 - 1.1 [facility] Blood specimen (specimen) 12/22/2012 5:00 AM EDT 12/22/2012 5:08 AM EDT Narrative Resulting Agency Comment Spec In Lab Ankit Ohara MD HEMATOLOGY ORDERABLE S Performing Organization Address [facility] Phone Number [facility] * Hepatitis B Surface Antigen (12/21/2012 7:35 PM EDT) HepB Surface Ag Negative Negative [facility] Blood specimen (specimen) 12/21/2012 7:35 PM EDT 12/22/2012 8:11 AM EDT Narrative Resulting Agency Comment Spec In Lab Ankit Ohara MD CHEMISTRY ORDERABLES Performing Organization Address [facility] de Phone Number [facility] * Vancomycin, trough (12/21/2012 7:35 PM EDT) Vanc Trough 7.0 mg/L [facility] Comment: Therapeutic range for complicated infections such [...] Lab Ankit Ohara MD CHEMISTRY ORDERABLES [facility] * MRI brain with/WO contrast (12/21/2012 5:18 [...] how these changes evolve. Ankit Ohara MD G MRI ORDERABLES * Blood culture (12/21/2012 3:40 PM EDT) Blood Culture ? Patient Name: ANUM HENRIQUEZ ?Ordered By: ANKIT OHARA ? MR#: [id number] ?LOC: ??1WST ? /Sex: ??1960 (52 years), ? Female ? PROCEDURE: Blood Culture ?SOURCE: Blood ? COLLECTED: 12/21/2012 15:40 ? BODY SITE: Internal Jugular ? STARTED: 12/21/2012 15:52 ?FREE TEXT SOURCE: Please draw one culture from PICC line and ? one from RIJ plasmaphoresis line today. Thank ? you. ? FINAL REPORT ? Final Report ? Verified:12/28/19 13 15:11 ? No growth at 5 days. ? PRELIMINARY REPORT ? Preliminary Report ? Verified:12/26/19 13 23:11 ? No growth at 4 days. ? [facility] Blood specimen (specimen) INTERNAL JUGULAR VEIN STRUCTURE / Unknown 12/21/2012 3:40 PM EDT 12/21/2012 3:52 PM EDT Comment:PLEASE DRAW ONE CULT URE FROM PICC LINE AND ONE FROM RIJ PLASMAPHORESIS LINE TODAY. THANK YOU. Narrative Resulting Agency Comment Spec In Lab Ankit Ohara MD MICROBIOLOGY - BLOOD ORDERABLES [facility]CS[facility] * (ABNORMAL) Basic Metabolic Panel (non-fasting) (12/21/2012 3:40 PM EDT) [facility] Glucose Lvl 110 60 - 199 mg/dL [facility] Comment:Diabetes: >=200 mg/d L plus symptoms BUN 33(H) 8 - 18 mg/dL [facility] Creatinine 2.34(H) 0.70 - 1.20 mg/dL [facility] Comment: Please note that the pediatric reference intervals supplied above were not validated at [facility]. Results from pediatric patients should [...] Lab Ankit Ohara MD CHEMISTRY ORDERABLES [facility] * Vitamin B6 (12/21/2012 2:30 PM EDT) Pathologist [facility] Vitamin B6 6 5 - 50 mcg/L [facility] Comment: Test Performed by: [facility] [email or web address] [address], [place] [address] Professor Of Social Work: Jennifer Ramirez, Ph.D. Blood specimen (specimen) 12/21/2012 2:30 PM EDT 12/23/2012 8:37 AM EDT Narrative Resulting Agency Comment Spec In Lab Ankit Ohara MD CHEMISTRY ORDERABLES Performing Organization Address [facility]/ZIP Co de Phone Number [facility] * SCAN DOC: LAB (12/21/2012 1:54 PM EDT) Narrative 12/21/2012 1:54 PM EDT Procedure Note Provider, Scanning - 12/21/2012 1:54 PM EDT Scanning Provider MEDIA MGR SCAN EXT O RDR/RSLT * (ABNORMAL) Blood Gas Arterial (12/21/2012 1:40 PM EDT) pH Art 7.52(H) 7.35 - 7.45 [facility]ILL[facility] pCO2 Art 36 35 - 45 mmHg [facility] MILLENNI[facility] pO2 Art 94 85 - 104 mmHg [facility] MILL[facility] HCO3 Art 29.0(H) 20.0 - 26.0 mmol/L [facility]ILLEN[facility] BE Art 6.2(H) -3.0 - 3.0 mmol/L [facility] Hgb Blood Gas 8.5(L) 11.2 - 15.7 gm/dL [facility]ILL[facility] Comment: Total Hemoglobin (in gm/dL) ?Based on [facility] Hematology ranges: ?Age ?Reference Range Less than [...] Lactate WB 0.8 0.5 - 2.2 mmol/L [facility] Blood specimen (specimen) 12/21/2012 1:40 PM EDT 12/21/2012 1:56 PM EDT Narrative Resulting Agency Comment Spec In Lab Ankit Ohara MD CHEMISTRY ORDERABLES Performing Organization Address [facility] Co de Phone Number [facility] * Green Tube HOLD (12/21/2012 1:40 PM EDT) Green Hold Sample in lab. [facility] Blood specimen (specimen) 12/21/2012 1:40 PM EDT 12/21/2012 1:48 PM EDT Ankit Ohara MD CHEMISTRY ORDERABLES Performing Organization Address [facility] Co de Phone Number [facility] * Vitamin B12 (12/21/2012 1:40 PM EDT) Pathologist [facility] Vitamin B-12 498 207 - 974 pg/mL [facility] Blood specimen (specimen) 12/21/2012 1:40 PM EDT 12/21/2012 1:44 PM EDT Narrative Resulting Agency Comment Spec In Lab Ankit Ohara MD CHEMISTRY ORDERABLES Performing Organization Address [facility] Co de Phone Number [facility] * (ABNORMAL) Extractable Nuclear Antigen (JACKY) Ab (12/21/2012 1:40 PM EDT) JACKY Ab Test ?Result ?Flag ??Unit ??RefValue Ab to Extractable Nuclear Ag Eval,S ??SS-A/Ro Ab, IgG, S ?7.0 ?H ?U -- REFERENCE VALUE -- <1.0 (Negative) Interpretation: Positive (>=1.0) ??SS-B/La Ab, IgG, S ?1.5 ?H ?U -- REFERENCE VALUE -- <1.0 (Negative) Interpretation: Positive (>=1.0) ??Sm Ab, IgG, S ? <0.2 ?U -- REFERENCE VALUE -- <1.0 (Negative) ??ELECTRICAL ELECTRONICS TECHNICIAN Ab, IgG, S ?<0.2 ?U -- REFERENCE VALUE -- <1.0 (Negative) ??Scl 70 Ab, IgG, S ? <0.2 ?U -- REFERENCE VALUE -- <1.0 (Negative) ??Fozia 1 Ab, IgG, S ? <0.2 ?U -- REFERENCE VALUE -- <1.0 (Negative) Test Performed by: [place] [address] Professor Of Social Work: Jennifer Ramirez, Ph.D.(A) [facility] Blood specimen (specimen) 12/21/2012 1:40 PM EDT 12/23/2012 8:37 AM EDT Narrative Resulting Agency Comment Spec In Lab Ankit Ohara MD IMMUNOLOGY ORDERABLE S [facility] * (ABNORMAL) Ammonia (12/21/2012 1:40 PM EDT) Ammonia <10(L) 11 - 51 mcmol/L [facility] Blood specimen (specimen) 12/21/2012 1:40 PM EDT 12/21/2012 1:44 PM EDT Narrative Resulting Agency Comment Spec In Lab Ankit Ohara MD CHEMISTRY ORDERABLES [facility] * Blood culture (12/21/2012 9:21 AM EDT) Blood Culture ? Patient Name: ANUM HENRIQUEZ ?Ordered By: ANKIT OHARA ? MR#: [id number] ?LOC: ??1WST ? /Sex: ??1960 (52 years), [...] days. ? [facility] Blood specimen (specimen) PERIPHERALLY INSERTED CENTRAL CATHETER [...] MD CHEMISTRY ORDERA BLES Performing Organization Address [facility] Co de Phone Number [facility] ARCOSEN[facility] * (ABNORMAL) Magnesium (12/21/2012 6:50 AM EDT) Magnesium 0.66(L) 0.69 - 1.07 mmol/L [facility] Blood specimen (specimen) 12/21/2012 6:50 AM EDT 12/21/2012 7:14 AM EDT Narrative Resulting Agency Comment Spec In Lab Fabi Bliss MD CHEMISTRY ORDERA BLES Performing Organization Address [facility] de Phone Number [facility] * (ABNORMAL) Lactate Dehydrogenase (12/21/2012 6:50 AM EDT) LDH 237(H) 110 - 220 unit/L [facility] Blood specimen (specimen) 12/21/2012 6:50 AM EDT 12/21/2012 7:14 AM EDT Narrative Resulting Agency Comment Spec In Lab Fabi Bliss MD CHEMISTRY ORDERA BLES Performing Organization Address [facility] de Phone Number [facility] * (ABNORMAL) Basic Metabolic Panel (non-fasting) (12/21/2012 6:50 AM EDT) Glucose Lvl 102 60 - 199 mg/dL [facility] Comment:Diabetes: >=200 mg/d L plus symptoms BUN 33(H) 8 - 18 mg/dL [facility] Creatinine 2.29(H) 0.70 - 1.20 mg/dL [facility] Comment: Please note that the pediatric reference intervals supplied above were not validated at [facility]. Results from pediatric patients should [...] Lab Luis E Trotter MD CHEMISTRY ORDERABLES [facility] * (ABNORMAL) CBC (with Diff) (12/21/2012 6:50 AM EDT) WBC 17.8(H) 4.0 - 10.0 x10(3)/mcL [facility] RBC 2.49(L) 3.93 - 5.22 x10(6)/mcL [facility] Hemoglobin 7.7(L) 11.2 - 15.7 gm/dL [facility] Hematocrit 22.4(L) 34.0 - 45.0 % [facility] MILLENNI[facility] MCV 90.0 79.0 - 94.0 fL [facility]EN[facility] MCH 30.9 26.6 - 32.2 pg [facility] MILLEN[facility] MCHC 34.4 32.0 - 36.5 gm/dL [facility] Platelets 158 145 - 370 x10(3)/mcL CERELIO ARCOSENNIUM RDWSD 46.5(H) 35.0 - 46.0 fL [facility] ARCOSENNI[facility] RDWCV 14.7(H) 10.9 - 14.4 % [facility] ARCOS[facility] MPV 10.8 9.0 - 12.0 fL [facility] Blood specimen (specimen) 12/21/2012 6:50 AM EDT 12/21/2012 7:14 AM EDT Narrative Resulting Agency Comment Spec In Lab Luis E Trotter MD HEMATOLOGY ORDERABLE S [facility] * Transfuse RBC (12/21/2012 6:15 AM EDT) Ankit Ohara MD NURSING TREATMENT OR DERABLES - BLOOD ADMIN * Prepare RBC (12/21/2012 12:55 AM EDT) Dispensed? Yes [facility] Blood specimen (specimen) 12/21/2012 12:55 AM EDT 12/21/2012 12:53 AM EDT Ankit Ohara MD BLOOD BANK PRODUCT O RDERABLES Performing Organization Address City/[facility]/ZIP Co de Phone Number [facility] * Transfusion Reaction Interp (12/20/2012 6:28 PM EDT) Trans RXN Interp INTERPRETATION: Transfusion associated circulatory overload. The patient is approved to receive future transfusions. Please refer to the clinical note for a complete summary of this transfusion reaction. Jaleel Reynoso MD Transfusion Medicine Service 02/19/13 11:29 [facility] Comment: Jaleel Reynoso, Pathologist Verified:02/19/13 Blood specimen (specimen) 12/20/2012 6:28 PM EDT 12/20/2012 6:28 PM EDT Narrative Resulting Agency Comment Spec In Lab Ankit Ohara MD BLOOD BANK LAB ORDER VIKAS [facility] * Blood culture (12/20/2012 5:00 PM EDT) Blood Culture ? Patient Name: ANUM HENRIQUEZ ?Ordered By: ANKIT OHARA ? MR#: [id number] ?LOC: ??1WST ? /Sex: ??1960 (52 years), [...] 08:30 ? Staphylococcus aureus, MRSA isolated ? [facility] Blood specimen (specimen) 12/20/2012 5:00 PM EDT 12/20/2012 5:14 PM EDT Narrative Resulting Agency Comment Spec In Lab Ankit Ohara MD MICROBIOLOGY - BLOOD ORDERABLES [facility] * Urine culture Clean Catch Urine (12/20/2012 4:49 PM EDT) Urine Culture ? Patient Name: ANUM HENRIQUEZ ?Ordered By: ANKIT OHARA ? MR#: [id number] ?LOC: ??1WST ? /Sex: ??1960 (52 years), ? Female ? PROCEDURE: Urine Culture ?SOURCE: [facility] ? COLLECTED: 12/20/2012 16:49 ? STARTED: 12/20/2012 [...] ?S ? Patient: ANUM HENRIQUEZ ? MR#: [id number] ? FOOTNOTES ? (1) ? Gentamicin is not appropriate for [facility]-therapy. ? (2) ? MRSA, Note Nafcillin Resistance ? [facility] MILLENNIUM Urine specimen obtained via indwelling urinary catheter (specimen) 12/20/2012 4:49 PM EDT 12/20/2012 5:07 PM EDT Narrative Resulting Agency Comment Spec In Lab Ankit Ohara MD MICROBIOLOGY - GENER AL ORDERABLES [facility] * (ABNORMAL) pro-Brain Natriuretic Peptide (12/20/2012 4:10 PM EDT) ProBNP 2411(H) <=125 pg/mL [facility] Blood specimen (specimen) 12/20/2012 4:10 PM EDT 12/20/2012 4:16 PM EDT Narrative Resulting Agency Comment Spec In Lab Ankit Ohara MD CHEMISTRY ORDERABLES Performing Organization Address [facility] de Phone Number [facility] * (ABNORMAL) Urinalysis with microscopic (12/20/2012 3:55 PM EDT) Glucose UA Negative Negative mg/dL [facility] Protein UA 100(A) Neg mg/dL [facility] MILLENNIUM Bilirubin UA Negative Negative mg/dL [facility] Urobilinogen UA Normal [facility] pH UA 6.0 5.0 - 8.0 [facility] Blood UA Moderate [facility] Ketones UA Trace(A) Neg mg/dL [facility] Nitrite UA Negative [facility] MILLENNIUM Leukocytes UA Negative [facility] MILLENNIUM Appearance UA Clear Clear [facility] Spec Lucien UA 1.007 1.002 - 1.[address] [facility] MILLENNIUM Color UA Light Yellow Yellow [facility] RBC UA 8(H) 0 - 4 /HPF [facility]ILL[facility] WBC UA 6(H) 0 - 5 /HPF [facility] Gran Cast UA 2(H) <=0 /LPF [facility] Urine specimen (specimen) 12/20/2012 3:55 PM EDT 12/20/2012 4:55 PM EDT Narrative Resulting Agency Comment Spec In Lab Ankit Ohara MD URINE ORDERABLES Performing Organization Address City/[facility]/ZIP Co de Phone Number [facility] * Blood culture (12/20/2012 3:40 PM EDT) Blood Culture ? Patient Name: ANUM HENRIQUEZ ?Ordered By: ANKIT OHARA ? MR#: [id number] ?LOC: ??1WST ? /Sex: ??1960 (52 years), ? Female ? PROCEDURE: Blood Culture ?SOURCE: Blood ? COLLECTED: 12/20/2012 15:40 ? STARTED: 12/20/2012 16:07 ? STAINS / PREPARATIONS ? Bottle Gram Stain ? Verified:12/22/19 13 10:07 ? Growth detected in anaerobic bottle. ? Gram Positive Cocci in clusters seen ? Bottle Gram Stain ? Verified:12/22/19 13 07:29 ? Growth detected in aerobic bottle. ? Gram Positive Cocci in clusters seen ? Results called to and read back by Dr. Cervantes ??12/21/2012 07:28:58 ? FINAL REPORT ? Final Report ? Verified:12/24/19 13 08:30 ? Staphylococcus aureus, MRSA isolated ? Isolate saved. If future testing is required, contact the Microbiology ? Bending Roll Hand. ? PRELIMINARY REPORT ? Preliminary Report ? Verified:12/23/19 08:30 ? Staphylococcus aureus, MRSA isolated ? Patient: ANUM HENRIQUEZ ? MR#: [id number] ? SUSCEPTIBILITY RESULTS ? Staphylococcus aureus, MRSA [...] (1) ? Gentamicin is not appropriate for [facility]-therapy. ? (2) ? MRSA, Note Nafcillin Resistance [...] (Bezet) 406 ms MUSE SYSTEM Calculated P [place] 58 degrees MUSE SYSTEM Calculated R [place] 32 degrees MUSE SYSTEM Calculated T [place] 24 degrees MUSE SYSTEM INTERPRETATION Normal sinus rhythm Nonspecific T wave abnormality Abnormal ECG No previous ECGs available Confirmed by MD CEASAR, JAY ([id number]) on 12/21/2012 7:30:22 AM MUSE SYSTEM 12/20/2012 2:21 PM EDT 12/21/2012 7:30 AM EDT Ankit Ohara MD ECG ORDERABLES MUSE SYSTEM * (ABNORMAL) Magnesium (12/20/2012 1:55 PM EDT) Magnesium 0.66(L) 0.69 - 1.07 mmol/L [facility] Blood specimen (specimen) 12/20/2012 1:55 PM EDT 12/20/2012 2:11 PM EDT Narrative Resulting Agency Comment Spec In Lab Ankit Ohara MD CHEMISTRY ORDERABLES [facility] RACOSENNI[facility] * Scan, Peripheral Blood (12/20/2012 1:55 PM EDT) Plat Estimate Normal [facility] MILLENNIUM RBC Morphology Abnormal [facility]ERNE R MILLENNIUM Microcytes 1-5 /HPF [facility] MILLENNI[facility] Schistocytes 1-5 /HPF [facility]ILL[facility] Blood specimen (specimen) 12/20/2012 1:55 PM EDT 12/20/2012 2:03 PM EDT Narrative Resulting Agency Comment Spec In Lab Ankit Ohara MD HEMATOLOGY ORDERABLE S [facility] ARCOS[facility] * (ABNORMAL) Differential, Automated (12/20/2012 1:55 PM [...] MD HEMATOLOGY ORDERABLE S Performing Organization Address [facility] Co de Phone Number BAR Swift[facility] * (ABNORMAL) APTT (12/20/2012 1:55 PM EDT) PTT 41(H) 25 - 35 sec [facility]ILL[facility]NI[facility] Comment: Recommended therapeutic PTT range for full dose unfractionated heparin is 80-114 seconds. Blood specimen (specimen) 12/20/2012 1:55 PM EDT 12/20/2012 2:03 PM EDT Narrative Resulting Agency Comment Spec In Lab Ankit Ohara MD HEMATOLOGY ORDERABLE S Performing Organization Address City/[facility] Co de Phone Number BAR ARCOSCrowsnest LabsIUM * (ABNORMAL) Prothrombin Time (12/20/2012 1:55 PM EDT) PT 17.1(H) 12.0 - 15.0 sec [facility] MILLENNIUM Comment: [facility] Transfusion Committee Guidelines: INR less than 2.0, PTT less than OR equal to 43.5 seconds, or Fibrinogen greater than or equal to 100 mg/dl indicate adequate procoagulant activity for hemostasis in patients without underlying bleeding disorders. INR 1.4(H) 0.9 - 1.1 [facility]ILL[facility] Blood specimen (specimen) 12/20/2012 1:55 PM EDT 12/20/2012 2:03 PM EDT Narrative Resulting Agency Comment Spec In Lab Ankit Ohara MD HEMATOLOGY ORDERABLE S Performing Organization Address [facility] de Phone Number [facility] MILL[facility] * (ABNORMAL) CBC (with Diff) (12/20/2012 1:55 PM EDT) WBC 12.4(H) 4.0 - 10.0 x10(3)/mcL CERNER [...] MD HEMATOLOGY ORDERABLE S Performing Organization Address [facility]/ZIP Co de Phone Number [facility]ERELIO ARCOSENNIUM * (ABNORMAL) Basic Metabolic Panel (non-fasting) (12/20/2012 1:55 PM EDT) Glucose Lvl 103 60 - 199 mg/dL [facility] MILLENNI[facility] Comment:Diabetes: >=200 mg/d L plus symptoms BUN 34(H) 8 - 18 mg/dL [facility]ILL[facility] Creatinine 1.86(H) 0.70 - 1.20 mg/dL [facility]ILL[facility] Comment: Please note that the pediatric reference intervals supplied above were not validated at [facility]. Results from pediatric patients should [...] Ohara MD CHEMISTRY ORDERABLES [facility] * Antibody screen (12/20/2012 12:20 PM EDT) Ab Screen Interp Negative [facility] PINEDAIUM Expires at [id number] on: [id number] [facility] ARCOSENNIUM Blood specimen (specimen) 12/20/2012 12:20 PM EDT 12/20/2012 12:33 PM EDT Narrative Resulting Agency Comment Spec In Lab Ankit Ohara MD BLOOD BANK LAB ORDER VIKAS [facility] NOE * ABO/Rh Typing (12/20/2012 12:20 PM EDT) ABORH Type AB Pos [facility] Blood specimen (specimen) 12/20/2012 12:20 PM EDT 12/20/2012 12:33 PM EDT Narrative Resulting Agency Comment Spec In Lab Ankit Ohara MD BLOOD BANK LAB ORDER VIAKS [facility] * (ABNORMAL) H. pylori Antibody, IgG (12/20/2012 12:20 PM EDT) H pylori Ab Pos(A) Neg [facility] Blood specimen (specimen) 12/20/2012 12:20 PM EDT 12/21/2012 2:03 PM EDT Narrative Resulting Agency Comment Spec In Lab Ankit Ohara MD IMMUNOLOGY ORDERABLE S Performing Organization Address [facility] Co de Phone Number BAR NOE * Prepare RBC (12/20/2012 9:45 AM EDT) Dispensed? Yes BAR NOE Blood specimen (specimen) 12/20/2012 9:45 AM EDT 12/20/2012 9:43 AM EDT Ankit Ohara MD BLOOD BANK PRODUCT O RDERABLES [facility] * SCAN DOC: LAB (12/20/2012 [...] Luis E Trotter MD HEMATOLOGY ORDERABLE S [facility] * (ABNORMAL) Phosphorus (12/20/2012 4:50 AM EDT) Phosphorus 4.9(H) 2.5 - 4.5 mg/dL [facility]ILL[facility] Blood specimen (specimen) 12/20/2012 4:50 AM EDT 12/20/2012 5:08 AM EDT Narrative Resulting Agency Comment Spec In Lab Fabi Bliss MD CHEMISTRY ORDERA BLES Performing Organization Address [facility] de Phone Number CERNER MILLENNIUM * Magnesium (12/20/2012 4:50 AM EDT) Magnesium 0.71 0.69 - 1.07 mmol/L CERNER MILLENNIUM Blood specimen (specimen) 12/20/2012 4:50 AM EDT 12/20/2012 5:08 AM EDT Narrative Resulting Agency Comment Spec In Lab Fabi Bliss MD CHEMISTRY ORDERA BLES Performing Organization Address [facility] de Phone Number CERNER MILLENNIUM * Lactate Dehydrogenase (12/20/2012 4:50 AM EDT) LDH 220 110 - 220 unit/L CERNER MILLENNIUM Blood specimen (specimen) 12/20/2012 4:50 AM EDT 12/20/2012 5:08 AM EDT Narrative Resulting Agency Comment Spec In Lab Fabi Bliss MD CHEMISTRY ORDERA BLES Performing Organization Address [facility] de Phone Number CERNER MILLENNIUM * (ABNORMAL) Basic Metabolic Panel (non-fasting) (12/20/2012 4:50 AM EDT) Glucose Lvl 104 60 - 199 mg/dL CERNER MILLENNIUM Comment:Diabetes: >=200 mg/d L plus symptoms BUN 38(H) 8 - 18 mg/dL CERNER MILLENNIUM Creatinine 2.11(H) 0.70 - 1.20 mg/dL CERNER MILLENNIUM Comment: Please note that the pediatric reference intervals supplied above were not validated at [facility]. Results from pediatric patients should [...] Luis E Trotter MD CHEMISTRY ORDERABLES BAR ARCOSENNIUM * (ABNORMAL) CBC (with Diff) (12/20/2012 [...] MILLENNIUM MPV 10.7 9.0 - 12.0 fL [facility] MILL[facility] Blood specimen (specimen) 12/20/2012 4:50 AM EDT 12/20/2012 5:08 AM EDT Narrative Resulting Agency Comment Spec In Lab Luis E Trotter MD HEMATOLOGY ORDERABLE S Performing Organization Address [facility] Co de Phone Number [facility] * (ABNORMAL) Fibrinogen (12/20/2012 4:50 AM EDT) Fibrinogen 170(L) 175 - 450 mg/dL [facility] Blood specimen (specimen) 12/20/2012 4:50 AM EDT 12/20/2012 5:08 AM EDT Narrative Resulting Agency Comment Spec In Lab Jaleel Reynoso MD HEMATOLOGY ORDERABLE S Performing Organization Address City/[facility] Co de Phone Number [facility] * Duplex Study for DVT, Bilat legs (12/19/2012 10:03 AM EDT) VB Text Report Department: Vascular Surgery Lab Patient: [id number] (ANUM HENRIQUEZ) CPT Code: 39807 ICD-9: 451.19 Referring Physician: ANKIT OHARA Indication: [...] Ohara MD VASCULAR ORDERABLES Performing Organization Address City/[facility] Co de Phone Number VASCUBASE * Fibrinogen (12/19/2012 7:40 AM EDT) Pathologist [facility] Fibrinogen 214 175 - 450 mg/dL [facility] Blood specimen (specimen) 12/19/2012 7:40 AM EDT 12/19/2012 7:51 AM EDT Narrative Resulting Agency Comment Spec In Lab Jaleel Reynoso MD HEMATOLOGY ORDERABLE S [facility] * T4 (12/19/2012 3:20 AM EDT) T4, total 5.7 5.1 - 10.8 mcg/dL CERNER MILLENNIUM Comment: Reference Range: Cord Blood: ??6.9-14.4 mcg/dL Females: ??7.2-14.2 mcg/dL Pediatric ranges: ??Interpret with caution-ranges have not been verified Blood specimen (specimen) 12/19/2012 3:20 AM EDT 12/19/2012 6:09 AM EDT Narrative Resulting Agency Comment Spec In Lab Luis E Trotter MD CHEMISTRY ORDERABLES Performing Organization Address [facility] Co de Phone Number [facility] * T Uptake (12/19/2012 3:20 AM EDT) T Uptake 1.03 0.80 - 1.30 ratio [facility] Comment: Tup assay is directly proportional to Thyroid binding protein concentration, thus FT4 Index = TT4/Tup. Cord Blood Reference Range: ??0.74-1.28. Blood specimen (specimen) 12/19/2012 3:20 AM EDT 12/19/2012 3:54 AM EDT Narrative Resulting Agency Comment Spec In Lab Luis E Trotter MD CHEMISTRY ORDERABLES Performing Organization Address [facility] de Phone Number [facility] * T4, free (12/19/2012 3:20 AM EDT) Free T4 1.05 0.90 - 1.60 ng/dL [facility] Blood specimen (specimen) 12/19/2012 3:20 AM EDT 12/19/2012 3:54 AM EDT Narrative Resulting Agency Comment Spec In Lab Luis E Trotter MD CHEMISTRY ORDERABLES Performing Organization Address [facility] Co de Phone Number [facility] * (ABNORMAL) T3 (12/19/2012 3:20 AM EDT) T3, Total 58(L) 75 - 170 ng/dL [facility] Blood specimen (specimen) 12/19/2012 3:20 AM EDT 12/19/2012 3:54 AM EDT Narrative Resulting Agency Comment Spec In Lab Luis E Trotter MD CHEMISTRY ORDERABLES BAR ARCOSENNIUM * (ABNORMAL) Differential, Automated (12/19/2012 3:20 AM EDT) Neutrophils % 81.2(H) 34.0 - 71.0 % [...] MD CHEMISTRY ORDERA BLES Performing Organization Address [facility] de Phone Number [facility] * Magnesium (12/19/2012 3:20 AM EDT) Pathologist [facility] Magnesium 0.80 0.69 - 1.07 mmol/L [facility] MILL[facility] Blood specimen (specimen) 12/19/2012 3:20 AM EDT 12/19/2012 3:40 AM EDT Narrative Resulting Agency Comment Spec In Lab Fabi Bliss MD CHEMISTRY ORDERA BLES Performing Organization Address [facility] de Phone Number [facility] * (ABNORMAL) Lactate Dehydrogenase (12/19/2012 3:20 AM EDT) Pathologist [facility] LDH 270(H) 110 - 220 unit/L [facility] MILL[facility] Blood specimen (specimen) 12/19/2012 3:20 AM EDT 12/19/2012 3:40 AM EDT Narrative Resulting Agency Comment Spec In Lab Fabi Bliss MD CHEMISTRY ORDERA BLES Performing Organization Address [facility] de Phone Number [facility] * (ABNORMAL) Basic Metabolic Panel (non-fasting) (12/19/2012 3:20 AM EDT) Glucose Lvl 98 60 - 199 mg/dL [facility] MILLENNIUM Comment:Diabetes: >=200 mg/d L plus symptoms BUN 41(H) 8 - 18 mg/dL [facility] MILLENNIUM Creatinine 2.19(H) 0.70 - 1.20 mg/dL CERNER MILLENNIUM Comment: Please note that the pediatric reference intervals supplied above were not validated at [facility]. Results from pediatric patients should be interpreted in conjunction to the patient's age, height and muscle mass. Sodium 145 135 - 145 mmol/L CERNER MILLENNIUM Potassium [...] CERELIO ARCOSENNIUM * (ABNORMAL) CBC (with Diff) (12/19/2012 3:20 [...] MD HEMATOLOGY ORDERABLE S Performing Organization Address City/[facility] Co de Phone Number BAR NOE * (ABNORMAL) Calcium Ionized Whole Blood, MARTIN (12/18/2012 9:05 PM EDT) pH Martin 7.44(H) 7.32 - 7.42 CERNER MILLENNIUM ICa Whole Blood 1.20 1.15 - [...] Ohara MD CHEMISTRY ORDERABLES Performing Organization Address City/[facility]/ZIP Co de Phone Number BAR NOE * UPPER GI ENDOSCOPY (12/18/2012 4:09 PM EDT) UPPER GI ENDOSCOPY [facility] Endoscopy Patient Name: Anum Henriquez ? Procedure Date: 12/18/2012 4:09 PM ? Date of : 1960 ? Age: 52 ? Order #: [id number] ? Procedure: ? Upper GI endoscopy Indications: ? Melena Providers: ? Alda Sullivan MD, Tonny Nguyen RN, ? Chikis Swanson Unemployment Claims Adjudicator Referring : ?Bakari Costello Medicines: ? Midazolam [...] GENERAL SURGICAL ORD ERABLES Performing Organization Address [facility] de Phone Number PROVATION * (ABNORMAL) [...] Ohara MD CHEMISTRY ORDERABLES Performing Organization Address [facility] de Phone Number CERNER MILLENNIUM * (ABNORMAL) Calcium Ionized Whole Blood, MARTIN (12/18/2012 2:35 PM EDT) pH Martin 7.42 7.32 - 7.42 CERNER MILLENNIUM ICa Whole Blood 0.81(Criti lenard) 1.15 - 1.33 mmol/L CERNER MILLENNIUM Comment: Result rechecked. Called by: blr, Read back by: Maria Alejandra Carrasco, Date/Time:12/18/12 [...] 0.12(H) 0.00 - 0.05 x10(3)/mc L CERNER MILLENNIUM Blood specimen (specimen) 12/18/2012 4:25 AM EDT 12/18/2012 4:36 AM EDT Luis E Trotter MD HEMATOLOGY ORDERABLE S Performing Organization Address City/[facility]/ZIP Co de Phone Number CERNER ISRRAELENNIUM * Scan, Peripheral Blood (12/18/2012 4:25 AM EDT) Plat Estimate Decreased CERNER MILLENNIUM RBC Morphology Normal CERNE R MILLENNIUM Blood specimen (specimen) 12/18/2012 4:25 AM EDT 12/18/2012 4:36 AM EDT Narrative Resulting Agency Comment Spec In Lab Luis E Trotter MD HEMATOLOGY ORDERABLE S Performing Organization Address [facility] Co sc Phone Number CERNER MILLENNIUM * Phosphorus (12/18/2012 4:25 AM EDT) Phosphorus 4.4 2.5 - 4.5 mg/dL CERNER MILLENNIUM Blood specimen (specimen) 12/18/2012 4:25 AM EDT 12/18/2012 4:36 AM EDT Narrative Resulting Agency Comment Spec In Lab Fabi Bliss MD CHEMISTRY ORDERA BLES Performing Organization Address [facility]/ZIP Co de Phone Number CERNER MILLENNIUM * Magnesium (12/18/2012 4:25 AM EDT) Magnesium 0.83 0.69 - 1.07 mmol/L CERNER MILLENNIUM Blood specimen (specimen) 12/18/2012 4:25 AM EDT 12/18/2012 4:36 AM EDT Narrative Resulting Agency Comment Spec In Lab Fabi Bliss MD CHEMISTRY ORDERA BLES Performing Organization Address City/[facility]/ZIP Co de Phone Number CERNER MILLENNIUM * (ABNORMAL) Lactate Dehydrogenase (12/18/2012 4:25 AM EDT) LDH 306(H) 110 - 220 unit/L CERNER MILLENNIUM Blood specimen (specimen) 12/18/2012 4:25 AM EDT 12/18/2012 4:36 AM EDT Narrative Resulting Agency Comment Spec In Lab Fabi Bliss MD CHEMISTRY ORDERA BLES Performing Organization Address [facility] de Phone Number CERNER MILLENNIUM * (ABNORMAL) Basic Metabolic Panel (non-fasting) (12/18/2012 4:25 AM EDT) Glucose Lvl 92 60 - 199 mg/dL CERNER MILLENNIUM Comment:Diabetes: >=200 mg/d L plus symptoms BUN 41(H) 8 - 18 mg/dL CERNER MILLENNIUM Creatinine 2.28(H) 0.70 - 1.20 mg/dL CERNER MILLENNIUM Comment: Please note that the pediatric reference intervals supplied above were not validated at [facility]. Results from pediatric patients should [...] CERNER MILLENNIUM * (ABNORMAL) CBC (with Diff) (12/18/2012 4:25 [...] EDT Fabi Bliss MD CHEMISTRY ORDERA BLES [facility] * Hepatitis C Antibody (12/17/2012 6:49 PM EDT) Hepatitis C Ab Negative Negative CERNE R MIRIAMIUM Blood specimen (specimen) 12/17/2012 6:49 PM EDT 12/17/2012 7:03 PM EDT Narrative Resulting Agency Comment Spec In Lab Fabi Bliss MD IMMUNOLOGY ORDER VIKAS [facility] * KIANA (12/17/2012 6:49 PM EDT) Pathologist [facility] KIANA Neg Neg BAR ARCOSDIGN[facility] Blood specimen (specimen) 12/17/2012 6:49 PM EDT 12/18/2012 8:09 AM EDT Narrative Resulting Agency Comment Spec In Lab Fabi Bliss MD IMMUNOLOGY ORDER VIKAS [facility] * Transfuse RBC (12/17/2012 5:07 PM EDT) Fabi Bliss MD NURSING TREATMEN T ORDERABLES - BLOOD ADMIN * Smear Review Report (12/17/2012 2:24 PM EDT) Pathologist [facility] Smear Review Report ? [facility] ? Provider: ?? FABI BLISS Pt. Name: ?? ANUM HENRIQUEZ ?M ? Acc #: ?[id number] ? Pt. ? Col Date: ?? 12/17/2012 [...] ? PK ? 12/17/12 Verified by: ? Ramona PANTOJA, Phuc ? Hematopathologist ? (Electronic Signature) ? The attending pathologist whose signature appears on this report has ? reviewed all diagnostic slides and has edited the gross and/or ? microscopic portion of the report in rendering the final pathologic ? diagnosis. ? ---Comment--- ? Scistocytes are more than noted in the previous smear; [id number]. [facility] 12/17/2012 2:24 PM EDT Fabi Bliss MD PATHOLOGY/CYTOLO GY ORDERABLES [facility] * Peripheral Smear Review (12/17/2012 1:00 PM EDT) Periph Smear Rev See Comment CERNER MILLENNIUM Comment: When completed by the Pathologist, report [id number] will display under Hematopathology Reports. Blood specimen (specimen) 12/17/2012 1:00 PM EDT 12/17/2012 1:10 PM EDT Narrative Resulting Agency Comment Spec In Lab Fabi Bliss MD HEMATOLOGY ORDER VIKAS CERNER MILLENNIUM * (ABNORMAL) Differential, Automated (12/17/2012 1:00 PM [...] HEMATOLOGY ORDER VIKAS CERNER ISRRAELENNIUM * (ABNORMAL) CBC (with Diff) (12/17/2012 1:00 [...] Lab Fabi Bliss MD HEMATOLOGY ORDER VIKAS CERELIO ARCOSENNIUM * Prepare RBC (12/17/2012 9:35 AM EDT) Dispensed? Yes CERNER MILLENNIUM Blood specimen (specimen) 12/17/2012 9:35 AM EDT 12/17/2012 9:34 AM EDT Fabi Bliss MD BLOOD BANK PRODU CT ORDERABLES CERNER MILLENNIUM * Scan, Peripheral Blood (12/17/2012 4:00 AM [...] Luis E Trotter MD HEMATOLOGY ORDERABLE S [facility] MILLENNIUM * (ABNORMAL) Lactate Dehydrogenase (12/17/2012 4:00 AM EDT) LDH 366(H) 110 - 220 unit/L CERNER MILLENNIUM Blood specimen (specimen) 12/17/2012 4:00 AM EDT 12/17/2012 4:04 AM EDT Narrative Resulting Agency Comment Spec In Lab Fabi Bliss MD CHEMISTRY ORDERA BLES Performing Organization Address [facility] Co de Phone Number CERNER MILLENNIUM * (ABNORMAL) Basic Metabolic Panel (non-fasting) (12/17/2012 4:00 AM EDT) Glucose Lvl 105 60 - 199 mg/dL CERNER MILLENNIUM Comment:Diabetes: >=200 mg/d L plus symptoms BUN 37(H) 8 - 18 mg/dL CERNER MILLENNIUM Creatinine 2.25(H) 0.70 - 1.20 mg/dL CERNER MILLENNIUM Comment: Please note that the pediatric reference intervals supplied above were not validated at [facility]. Results from pediatric patients should [...] Lab Luis E Trotter MD CHEMISTRY ORDERABLES [facility] * (ABNORMAL) CBC (with Diff) (12/17/2012 4:00 [...] MILLENNIUM RDWSD 44.0 35.0 - 46.0 fL BAR NOE RDWCV 14.5(H) 10.9 - 14.4 % BAR NOE MPV 10.7 9.0 - 12.0 fL BAR NOE Blood specimen (specimen) 12/17/2012 4:00 AM EDT 12/17/2012 4:04 AM EDT Narrative Resulting Agency Comment Spec In Lab Luis E Trotter MD HEMATOLOGY ORDERABLE S BAR NOE * Shiga Toxin Detection (12/17/2012 3:32 AM EDT) Shiga Toxin Assay ? Patient Name: ANUM HENRIQUEZ ?Ordered By: FABI BLISS ? MR#: [id number] ?LOC: ??1WST ? /Sex: ??1960 (52 years), ? Female ? PROCEDURE: Shiga Toxin Assay ?SOURCE: Stool ? COLLECTED: 12/17/2012 03:32 ?FREE TEXT SOURCE: Clinical TTP-HUS. Please test for E coli O157: ? STARTED: 12/17/2012 14:48 ? H7 / shiga toxin. ? FINAL REPORT ? Final Report ? Verified:12/09 15:59 ? Test not performed due to no enteric growth. ? __ [facility] Stool specimen (specimen) 12/17/2012 3:32 AM EDT 12/17/2012 2:48 PM EDT Comment:CLINICAL TTP-HUS. PL EASE TEST FOR E COLI O157:H7 / SHIGA TOXIN. Narrative Resulting Agency Comment Spec In Lab Fabi Bliss MD MICROBIOLOGY - G ENERAL ORDERABLES [facility] * Campylobacter Antigen (12/17/2012 3:32 AM EDT) Campylobacter Ag ? Patient Name: ANUM HENRIQUEZ ?Ordered By: FABI BLISS ? MR#: [id number] ?LOC: ??1WST ? /Sex: ??1960 (52 years), ? Female ? PROCEDURE: Campylobacter Antigen ?SOURCE: Stool ? COLLECTED: 12/17/2012 03:32 ?FREE TEXT SOURCE: Clinical TTP-HUS. Please test for E coli O157: ? STARTED: 12/17/2012 14:49 ? H7 / shiga toxin. ? FINAL REPORT ? Final Report ? Verified: 013 13:37 ? Immunoassay Negative for Campylobacter Antigen ? BAR NOE Stool specimen (specimen) 12/17/2012 3:32 AM EDT 12/17/2012 2:49 PM EDT Comment:CLINICAL TTP-HUS. PL EASE TEST FOR E COLI O157:H7 / SHIGA TOXIN. Narrative Resulting Agency Comment Spec In Lab Fabi Bliss MD MICROBIOLOGY - G ENERAL ORDERABLES BAR NOE * Stool culture (12/17/2012 3:32 AM EDT) Stool Culture ? Patient Name: ANUM HENRIQUEZ ?Ordered By: FABI BLISS ? MR#: [id number] ?LOC: ??1WST ? /Sex: ??1960 (52 years), [...] 0157, Yersinia, Aeromonas ? and Plesiomonas. ? CERNER MILLENNIUM Stool specimen (specimen) 12/17/2012 3:32 AM EDT 12/17/2012 2:49 PM EDT Comment:CLINICAL TTP-HUS. PL EASE TEST FOR E COLI O157:H7 / SHIGA TOXIN. Narrative Resulting Agency Comment Spec In Lab Fabi Bliss MD MICROBIOLOGY - G ENERAL ORDERABLES Performing Organization Address [facility] de Phone Number BAR PINEDAIUM * Cryptosporidium Oocyst Antigen (12/17/2012 3:32 AM EDT) Cryptosporidium Screen Negative Negative CERELIO ARCOSENNIUM Stool specimen (specimen) 12/17/2012 3:32 AM EDT 12/17/2012 2:49 PM EDT Narrative Resulting Agency Comment Spec In Lab Luis E Trotter MD MICROBIOLOGY - GENER AL ORDERABLES Performing Organization Address [facility] Co de Phone Number BAR PINEDAIUM * Giardia antigen (12/17/2012 3:32 AM EDT) Giardia Screen Negative Negative CERNE R MILLENNIUM Comment:Examination for othe r intestinal parasites requires foreign travel history. Stool specimen (specimen) 12/17/2012 3:32 AM EDT 12/17/2012 2:49 PM EDT Narrative Resulting Agency Comment Spec In Lab Luis E Trotter MD MICROBIOLOGY - GENER AL ORDERABLES [facility] * MRI brain WO contrast (12/16/2012 9:02 PM EDT) Anatomical Region Laterality Modality Head Magnetic Resonan ce 12/16/2012 9:02 PM EDT Narrative 12/17/2012 8:23 AM EDT Examination MR Brain without Contrast Clinical History Pt with TTP-HUS, anemia, thrombocytopenia. New AMS, may be 2/2 TTP but want to r/o SCHOOL CLERK bleed, stroke, or any e/o SCHOOL CLERK vasculitis Comparison None Technique We obtained multi [...] may be 2/2 TTP butwant to r/o SCHOOL CLERK bleed, stroke, or any e/o SCHOOL CLERK vasculitis Comparison None Technique We obtained multi [...] The findings are normal. Fabi Bliss MD IM MRI ORDERABL ES * HIV (12/16/2012 6:15 PM EDT) HIV 1/2 Ab Negative BAR NOE Blood specimen (specimen) 12/16/2012 6:15 PM EDT 12/16/2012 6:20 PM EDT Narrative Resulting Agency Comment Spec In Lab Fabi Bliss MD IMMUNOLOGY ORDER VIKAS BAR NOE * Place PICC Line: Contact Vascular Access Page [phone] (12/16/2012 3:36 PM EDT) Narrative Edvin Brian [...] to the planned procedure. Hand Hygiene: The gem carver did perform hand hygiene prior to line insertion. Catheter type: PICC Lot number: [id number] Procedure Technique: Skin was prepped with chlorhexidine. [...] to the planned procedure. Hand Hygiene: The gem carver did perform hand hygiene prior to line insertion. Catheter type: PICC Lot number: [id number] Procedure Technique: Skin was prepped with chlorhexidine. [...] C4 Complement 4(L) 10 - 40 mg/dL [facility] Blood specimen (specimen) 12/16/2012 2:00 PM EDT 12/16/2012 2:15 PM EDT Narrative Resulting Agency Comment Spec In Lab Fabi Bliss MD CHEMISTRY ORDERA BLES Performing Organization Address [facility] Co de Phone Number [facility] * (ABNORMAL) C3 Complement (12/16/2012 2:00 PM EDT) C3 Complement 66(L) 90 - 180 mg/dL [facility] Blood specimen (specimen) 12/16/2012 2:00 PM EDT 12/16/2012 2:15 PM EDT Narrative Resulting Agency Comment Spec In Lab Fabi Bliss MD CHEMISTRY ORDERA BLES Performing Organization Address [facility] de Phone Number [facility] * (ABNORMAL) C2 Complement (12/16/2012 2:00 PM EDT) C2 Complement <1.3(L) 1.6 - 3.5 mg/dL [facility] Comment: Low levels of C2 indicate increased catabolism (as in immune complex disease) or decreased synthesis. Test performed by [employer] [address] [place], [address] [place] [address] Blood specimen (specimen) 12/16/2012 2:00 PM EDT 12/16/2012 2:54 PM EDT Narrative Resulting Agency Comment Spec In Lab Fabi Bliss MD CHEMISTRY ORDERA BLES Performing Organization Address [facility] Co de Phone Number [facility] * C1 Esterase Inhibitor, Functional (12/16/2012 2:00 PM EDT) C1 Scarlett Inh Qnt 90 % normal [facility] Comment: -- REFERENCE VALUE -- >67 (Normal) 41-67 (Equivocal) <41 (Abnormal) Test Performed by: [address] [address] Professor Of Social Work: Tulio Luna III, M.D. Blood specimen (specimen) 12/16/2012 2:00 PM EDT 12/16/2012 3:14 PM EDT Narrative Resulting Agency Comment Spec In Lab Fabi Bliss MD CHEMISTRY ORDERA BLES Performing Organization Address [facility] Co de Phone Number [facility] * Proteinase-3 Antibody (12/16/2012 2:00 PM EDT) PR3 Ab 3.6 <=20.0 unit(s) [facility] Blood specimen (specimen) 12/16/2012 2:00 PM EDT 12/17/2012 8:07 AM EDT Narrative Resulting Agency Comment Spec In Lab Fabi Bliss MD CHEMISTRY ORDERA BLES Performing Organization Address [facility] Co de Phone Number [facility] * Myeloperoxidase Ab (12/16/2012 2:00 PM EDT) MPO Ab 2.8 <=20.0 unit(s) [facility] Blood specimen (specimen) 12/16/2012 2:00 PM EDT 12/17/2012 8:07 AM EDT Narrative Resulting Agency Comment Spec In Lab Fabi Bliss MD CHEMISTRY ORDERA BLES Performing Organization Address City/[facility]/ZIP Co de Phone Number [facility] * Cytoplasmic Neutrophilic Ab (12/16/2012 2:00 PM EDT) C-ANCA Negative Negative CERNER MILLENNIUM Comment: Test Performed by: [address] [address] Professor Of Social Work: Tulio Luna III, M.D. P-ANCA Negative Negative CERNER MILLENNIUM Comment: Negative for cANCA and pANCA patterns by immunofluorescence. Test Performed by: [address] [address] Professor Of Social Work: Tulio Luna III, M.D. Blood specimen (specimen) 12/16/2012 2:00 PM EDT 12/16/2012 3:13 PM EDT Narrative Resulting Agency Comment Spec In Lab Fabi Bliss MD CHEMISTRY ORDERA BLES [facility]ER MILLENNIUM * (ABNORMAL) T4, free (12/16/2012 2:00 PM EDT) Pathologist [facility] Free T4 0.88(L) 0.90 - 1.60 ng/dL CERNER MILLENNIUM Blood specimen (specimen) 12/16/2012 2:00 PM EDT 12/16/2012 2:15 PM EDT Narrative Resulting Agency Comment Spec In Lab Fabi Bliss MD CHEMISTRY ORDERA BLES [facility]ILL[facility] * (ABNORMAL) T3, free (12/16/2012 2:00 PM EDT) Pathologist [facility] T3, Free 1.6(L) 2.0 - 3.5 pg/mL CERNER MILLENNIUM Comment: Test Performed by: [facility] [email or web address] [address], [place] [address] Professor Of Social Work: Jennifer Ramirez, Ph.D. Blood specimen (specimen) 12/16/2012 2:00 PM EDT 12/16/2012 3:13 PM EDT Narrative Resulting Agency Comment Spec In Lab Fabi Bliss MD CHEMISTRY ORDERA BLERenuka Performing Organization Address [facility] Co de Phone Number CERNER MILLENNIUM * TSH (12/16/2012 2:00 PM EDT) Pathologist [facility] TSH 3.68 0.27 - 4.20 mcIU/mL CERNER MILLENNIUM Blood specimen (specimen) 12/16/2012 2:00 PM EDT 12/16/2012 2:15 PM EDT Narrative Resulting Agency Comment Spec In Lab Fabi Bliss MD CHEMISTRY ORDERA BLES Performing Organization Address [facility] de Phone Number CERNER MILLENNIUM * (ABNORMAL) Urinalysis with microscopic (12/16/2012 1:35 PM EDT) Pathologist [facility] [facility] UA Negative Negative mg/dL CERNER MILLENNIUM [...] Appearance UA Hazy(A) Clear CERNER MILLENNIUM Spec Lucien UA 1.013 1.002 - 1.030 CERNER MILLENNIUM [...] In Lab Fabi Bliss MD URINE ORDERABLES Performing Organization Address [facility]/ZIP Co de Phone Number CERNER MILLENNIUM * (ABNORMAL) Differential, Automated (12/16/2012 [...] MD HEMATOLOGY ORDERABLE S BAR NOE * (ABNORMAL) Hepatic Function Panel (12/16/2012 4:40 AM EDT) Total Protein 4.3(L) 6.4 - 8.3 gm/dL CERNER MILLENNIUM Albumin 2.6(L) 3.2 - 5.2 gm/dL CERNER MILLENNIUM AST 49(H) 0 - 30 unit/L CERNER MILLENNIUM ALT 21 0 - 30 unit/L CERNER MILLENNIUM Comment:result rechecked-h Alk Phos 32(L) 40 - 104 unit/L CERNER MILLENNIUM Total Bilirubin 0.8 0.2 - 1.3 mg/dL CERNER MILLENNIUM Bili, Direct 0.2 0.0 - 0.3 mg/dL CERNER MILLENNIUM Blood specimen (specimen) 12/16/2012 4:40 AM EDT 12/16/2012 4:47 AM EDT Narrative Resulting Agency Comment Spec In Lab Luis E Trotter MD CHEMISTRY ORDERABLES Performing Organization Address [facility] Co de Phone Number CERNER MILLENNIUM * (ABNORMAL) Lactate Dehydrogenase (12/16/2012 4:40 AM EDT) LDH 455(H) 110 - 220 unit/L CERNER MILLENNIUM Blood specimen (specimen) 12/16/2012 4:40 AM EDT 12/16/2012 4:47 AM EDT Narrative Resulting Agency Comment Spec In Lab Fabi Bliss MD CHEMISTRY ORDERA BLES Performing Organization Address [facility] Co de Phone Number CERNER MILLENNIUM * (ABNORMAL) Basic Metabolic Panel (non-fasting) (12/16/2012 4:40 AM EDT) Glucose Lvl 110 60 - 199 mg/dL CERNER MILLENNIUM Comment:Diabetes: >=200 mg/d L plus symptoms BUN 33(H) 8 - 18 mg/dL CERNER MILLENNIUM Creatinine 2.29(H) 0.70 - 1.20 mg/dL CERNER MILLENNIUM Comment: Please note that the pediatric reference intervals supplied above were not validated at [facility]. Results from pediatric patients should [...] MILLENNIUM MCH 28.5 26.6 - 32.2 pg BAR ARCOSENNIUM MCHC 33.8 32.0 - 36.5 gm/dL BAR ARCOSENNIUM Platelets 42(L) 145 - 370 x10(3)/mcL BAR ARCOSENNIUM RDWSD 43.7 35.0 - 46.0 fL BAR ARCOSENNIUM RDWCV 14.4 10.9 - 14.4 % BAR ARCOSENNIUM MPV Not Measured 9.0 - 12.0 fL BAR PINEDAIUM Blood specimen (specimen) 12/16/2012 4:40 AM EDT [...] AM EDT) C Diff Screen Negative Negative [facility] Stool specimen (specimen) 12/15/2012 7:42 AM EDT 12/15/2012 8:15 AM EDT Narrative Resulting Agency Comment Spec In Lab Luis E Trotter MD MICROBIOLOGY - GENER AL ORDERABLES Performing Organization Address [facility] de Phone Number [facility] * (ABNORMAL) Fecal Lactoferrin (12/15/2012 7:42 AM EDT) Stool WBC Positive(A ) Negative [facility] Stool specimen (specimen) 12/15/2012 7:42 AM EDT 12/15/2012 8:15 AM EDT Narrative Resulting Agency Comment Spec In Lab Luis E Trotter MD MICROBIOLOGY - GENER AL ORDERABLES Performing Organization Address [facility] de Phone Number [facility] * Phosphorus (12/15/2012 3:50 AM EDT) Phosphorus 3.1 2.5 - 4.5 mg/dL [facility] Comment:Result rechecked. Blood specimen (specimen) 12/15/2012 3:50 AM EDT 12/15/2012 10:26 AM EDT Narrative Resulting Agency Comment Spec In Lab LuisE Trotter MD CHEMISTRY ORDERABLES Performing Organization Address [facility] Phone Number [facility] * Magnesium (12/15/2012 3:50 AM EDT) Magnesium 0.72 0.69 - 1.07 mmol/L CERNER MILLENNIUM Blood specimen (specimen) 12/15/2012 3:50 AM EDT 12/15/2012 10:26 AM EDT Narrative Resulting Agency Comment Spec In Lab Luis E Trotter MD CHEMISTRY ORDERABLES Performing Organization Address City/[facility] Co de Phone Number CERNER ISRRAELENNIUM * (ABNORMAL) Lactate Dehydrogenase (12/15/2012 3:50 AM EDT) LDH 417(H) 110 - 220 unit/L CERNER MILLENNIUM Blood specimen (specimen) 12/15/2012 3:50 AM EDT 12/15/2012 4:01 AM EDT Narrative Resulting Agency Comment Spec In Lab Luis E Trotter MD CHEMISTRY ORDERABLES Performing Organization Address [facility] de Phone Number CERNER MILLENNIUM * (ABNORMAL) Differential, Automated (12/15/2012 3:50 AM EDT) Neutrophils % 68.6 34.0 - 71.0 % [...] Metabolic Panel (non-fasting) (12/15/2012 3:50 AM EDT) Glucose Lvl 109 60 - 199 mg/dL CERNER MILLENNIUM Comment:Diabetes: >=200 mg/d L plus symptoms BUN 26(H) 8 - 18 mg/dL CERNER MILLENNIUM Creatinine 2.12(H) 0.70 - 1.20 mg/dL CERNER MILLENNIUM Comment: Please note that the pediatric reference intervals supplied above were not validated at [facility]. Results from pediatric patients should [...] Trotter MD CHEMISTRY ORDERABLES Performing Organization Address City/State/[facility] Co de Phone Number BAR PINEDAIUM * (ABNORMAL) CBC (with Diff) [...] Addendum Begins VIR PROCEDURE NOTE ?? ACC#: [id number] ?? PROCEDURE: Non-tunneled right internal jugular triple [...] Addendum Begins VIR PROCEDURE NOTE ?? ACC#: [id number] ?? PROCEDURE: Non-tunneled right internal jugular triple [...] Addendum Begins VIR PROCEDURE NOTE ?? ACC#: [id number] ?? PROCEDURE: Non-tunneled right internal jugular triple [...] Addendum Begins VIR PROCEDURE NOTE ?? ACC#: [id number] ?? PROCEDURE: Non-tunneled right internal jugular triple [...] Attending: Dr. Justo MD ?? I, Dr. Kepm, was present throughout the procedure. ?? Addendum [...] AM EDT VIR PROCEDURE NOTE ?? ACC#: [id number] ?? PROCEDURE: Non-tunneled right internal jugular triple [...] MD - 12/20/2012 VIR PROCEDURE NOTE ACC#: [id number] PROCEDURE: Non-tunneled right internal jugular triple lumen [...] reviewed by the attending Fabi Bliss MD IM IR ORDERABLE S * [id number] Activity (12/14/2012 2:02 PM EDT) Pathologist [facility] [id number] Activity 94 >/=70 % CE SHEELA NOE Comment: For research use only. Test Performed by: [place] [address] Professor Of Social Work: Tulio Luna III, M.D. [id number] Interpretation SEE COMMENTS BAR NOE Comment: No laboratory evidence of [id number] deficiency. ??A normal [id number] activity level does not completely exclude a clinical diagnosis of thrombotic thrombocytopenic purpura (TTP). ??Recommend clinical correlation. Test Performed by: [place] [address] Professor Of Social Work: Tulio Luna III, M.D. Blood specimen (specimen) 12/14/2012 2:02 PM EDT 12/16/2012 8:36 AM EDT Narrative Resulting Agency Comment Spec In Lab Yudith Raya DO CHEMISTRY ORDER VIKAS BAR NOE * Proteinase-3 Antibody (12/14/2012 12:03 PM EDT) PR3 Ab 3.5 <=20.0 unit(s) BAR PINEDAIUM Blood specimen (specimen) 12/14/2012 12:03 PM EDT 12/16/2012 8:26 AM EDT Narrative Resulting Agency Comment Spec In Lab Luis E Trotter MD CHEMISTRY ORDERABLES Performing Organization Address [facility] Co de Phone Number BAR PINEDAIUM * Myeloperoxidase Ab (12/14/2012 12:03 PM EDT) MPO Ab 3.0 <=20.0 unit(s) BAR PINEDAIUM Blood specimen (specimen) 12/14/2012 12:03 PM EDT 12/16/2012 8:26 AM EDT Narrative Resulting Agency Comment Spec In Lab Luis E Trotter MD CHEMISTRY ORDERABLES Performing Organization Address [facility] Phone Number BAR PINEDAIUM * Cytoplasmic Neutrophilic Ab (12/14/2012 12:03 PM EDT) C-ANCA Negative Negative CERELIO PINEDAIUM Comment: Test Performed by: [place] [address] Professor Of Social Work: Tulio Luna III, M.D. P-ANCA Negative Negative [facility] M[facility] Comment: Negative for cANCA and pANCA patterns by immunofluorescence. Test Performed by: [place] [address] Professor Of Social Work: Tulio Luna III, M.D. Blood specimen (specimen) 12/14/2012 12:03 PM EDT 12/16/2012 8:13 AM EDT Narrative Resulting Agency Comment Spec In Lab Luis E Trotter MD CHEMISTRY ORDERABLES Performing Organization Address City/[facility] Co de Phone Number BAR PINEDAIUM * Antibody screen (12/14/2012 9:47 AM EDT) Ab Screen Interp Negative CERELIO PINEDAIUM Expires at [id number] on: [id number] CERELIO PINEDAIUM Blood specimen (specimen) 12/14/2012 9:47 AM EDT 12/14/2012 9:53 AM EDT Narrative Resulting Agency Comment Spec In Lab Luis E Trotter MD BLOOD BANK LAB ORDER VIKAS Performing Organization Address [facility] Co de Phone Number BAR PINEDAIUM * ABO/Rh Typing (12/14/2012 9:47 AM EDT) ABORH Type AB Pos CERNER MILLENNIUM Blood specimen (specimen) 12/14/2012 9:47 AM EDT 12/14/2012 9:53 AM EDT Narrative Resulting Agency Comment Spec In Lab Luis E Trotter MD BLOOD BANK LAB ORDER VIKAS Performing Organization Address [facility] Co de Phone Number BAR ARCOSENNIUM * (ABNORMAL) Reticulocyte Count (12/14/2012 9:47 AM [...] MD HEMATOLOGY ORDERABLE S Performing Organization Address City/[facility]/ZIP Co de Phone Number BAR PINEDAIUM * Direct antiglobulin test (12/14/2012 9:47 AM EDT) SEN Negative CERNER ISRRAELENNIUM Blood specimen (specimen) 12/14/2012 9:47 AM EDT 12/14/2012 9:53 AM EDT Narrative Resulting Agency Comment Spec In Lab Luis E Trotter MD BLOOD BANK LAB ORDER VIKAS BAR NOE * Smear Review Report (12/14/2012 5:49 AM EDT) Smear Review Report ? [facility] ? Provider: ?? LUIS E TROTTER ?Pt. Name: ?? ANUM HENRIQUEZ ? Acc #: ?[id number] ? Pt. ? Col Date: ?? 12/14/2012 [...] in rendering the final pathologic ? diagnosis. BAR MILLENNIUM 12/14/2012 5:49 AM EDT Luis E Trotter MD PATHOLOGY/CYTOLOGY O RDERABLES BAR ARCOSENNIUM * (ABNORMAL) Differential, Automated (12/14/2012 5:49 AM [...] Luis E Trotter MD HEMATOLOGY ORDERABLE S CERELIO ARCOSENNIUM * Scan, Peripheral Blood (12/14/2012 5:49 AM EDT) Plat Estimate Decreased CERNER MILLENNIUM RBC Morphology Abnormal CERNE R MILLENNIUM Ovalocytes 1-5 /HPF CERNER MILLENNIUM Schistocytes 1-5 /HPF CERNER MILLENNIUM Bynum Cells 6-10 /HPF CERNER MILLENNIUM Blood specimen (specimen) 12/14/2012 5:49 AM EDT 12/14/2012 5:58 AM EDT Narrative Resulting Agency Comment Spec In Lab Luis E Trotter MD HEMATOLOGY ORDERABLE S Performing Organization Address City/[facility]/ZIP Co de Phone Number CERELIO ARCOSENNIUM * (ABNORMAL) Basic Metabolic Panel (non-fasting) (12/14/2012 5:49 AM EDT) Glucose Lvl 113 60 - 199 mg/dL CERNER MILLENNIUM Comment:Diabetes: >=200 mg/d L plus symptoms BUN 18 8 - 18 mg/dL CERNER MILLENNIUM Creatinine 1.74(H) 0.70 - 1.20 mg/dL CERNER MILLENNIUM Comment: Please note that the pediatric reference intervals supplied above were not validated at [facility]. Results from pediatric patients should [...] CERNER MILLENNIUM * (ABNORMAL) CBC (with Diff) (12/14/2012 [...] MD HEMATOLOGY ORDERABLE S Performing Organization Address City/[facility]/ZIP Co de Phone Number [facility] * Peripheral Smear Review (12/14/2012 5:49 AM EDT) Periph Smear Rev See Comment [facility] Comment: When completed by the Pathologist, report [id number] will display under Hematopathology Reports. Blood specimen (specimen) 12/14/2012 5:49 AM EDT 12/14/2012 5:58 AM EDT Narrative Resulting Agency Comment Spec In Lab Luis E Trotter MD HEMATOLOGY ORDERABLE S Performing Organization Address [facility] Co de Phone Number [facility] * (ABNORMAL) Lactate Dehydrogenase (12/14/2012 2:16 AM EDT) LDH 672(H) 110 - 220 unit/L [facility] Blood specimen (specimen) 12/14/2012 2:16 AM EDT 12/14/2012 2:41 AM EDT Narrative Resulting Agency Comment Spec In Lab Luis E Trotter MD CHEMISTRY ORDERABLES Performing Organization Address [facility] de Phone Number [facility] * Proteinase-3 Antibody (12/13/2012 10:42 PM EDT) PR3 Ab 3.7 <=20.0 unit(s) [facility] Blood specimen (specimen) 12/13/2012 10:42 PM EDT 12/17/2012 8:07 AM EDT Narrative Resulting Agency Comment Spec In Lab Luis E Trotter MD CHEMISTRY ORDERABLES Performing Organization Address [facility] Co de Phone Number [facility] * Myeloperoxidase Ab (12/13/2012 10:42 PM EDT) MPO Ab 3.1 <=20.0 unit(s) [facility] Blood specimen (specimen) 12/13/2012 10:42 PM EDT 12/17/2012 8:07 AM EDT Narrative Resulting Agency Comment Spec In Lab Luis E Trotter MD CHEMISTRY ORDERABLES Performing Organization Address [facility] Number [facility] * Cytoplasmic Neutrophilic Ab (12/13/2012 10:42 PM EDT) Pathologist [facility] C-ANCA Negative Negative [facility] Comment: Test Performed by: [place] [address] Professor Of Social Work: Tulio Luna III, M.D. P-ANCA Negative Negative [facility] Comment: Negative for cANCA and pANCA patterns by immunofluorescence. Test Performed by: [place] [address] Professor Of Social Work: Tulio Luna III, M.D. Blood specimen (specimen) 12/13/2012 10:42 PM EDT 12/17/2012 8:14 AM EDT Narrative Resulting Agency Comment Spec In Lab Luis E Trotter MD CHEMISTRY ORDERABLES Performing Organization Address [facility] Number [facility] * Thyroid Stimulating Immunoglobulin (12/13/2012 10:42 PM EDT) [facility] TSI-Gonzáles <1.0 <=1.3 TSI index [facility] Comment: Test Performed by: [place] [address] Professor Of Social Work: Tulio Luna III, M.D. Blood specimen (specimen) 12/13/2012 10:42 PM EDT 12/17/2012 8:14 AM EDT Narrative Resulting Agency Comment Spec In Lab Luis E Trotter MD IMMUNOLOGY ORDERABLE S Performing Organization Address [facility] Co de Phone Number [facility] * C1 Esterase Inhibitor, Functional (12/13/2012 10:42 PM EDT) C1 Scarlett Inh Qnt >90 % normal [facility] Comment: -- REFERENCE VALUE -- >67 (Normal) 41-67 (Equivocal) <41 (Abnormal) Test Performed by: [address] [address] Professor Of Social Work: Tulio Luna III, M.D. Blood specimen (specimen) 12/13/2012 10:42 PM EDT 12/17/2012 8:25 AM EDT Narrative Resulting Agency Comment Spec In Lab Luis E Trotter MD CHEMISTRY ORDERABLES Performing Organization Address [facility] Co de Phone Number [facility] * C4 Complement (12/13/2012 10:42 PM EDT) C4 Complement 10 10 - 40 mg/dL [facility] Blood specimen (specimen) 12/13/2012 10:42 PM EDT 12/13/2012 10:54 PM EDT Narrative Resulting Agency Comment Spec In Lab Luis E Trotter MD CHEMISTRY ORDERABLES Performing Organization Address [facility] Co de Phone Number [facility] * (ABNORMAL) C3 Complement (12/13/2012 10:42 PM EDT) C3 Complement 64(L) 90 - 180 mg/dL [facility] Blood specimen (specimen) 12/13/2012 10:42 PM EDT 12/13/2012 10:54 PM EDT Narrative Resulting Agency Comment Spec In Lab Luis E Trotter MD CHEMISTRY ORDERABLES Performing Organization Address [facility] Co de Phone Number [facility] * Haptoglobin (12/13/2012 10:42 PM EDT) Haptoglobin <10 30 - 200 mg/dL [facility] Comment: Haptoglobin concentrations in newborns is low to undetectable; however, adult concentrations are usually attained by 4 months of age. ??No sex-related differences for haptoglobin have been detected. Blood specimen (specimen) 12/13/2012 10:42 PM EDT 12/13/2012 10:48 PM EDT Narrative Resulting Agency Comment Spec In Lab Luis E Trotter MD CHEMISTRY ORDERABLES [facility] * XR abdomen acute series with PA chest (12/13/2012 10:20 PM EDT) Anatomical Region Laterality Modality Abdomen, Chest N/A Radiographic Oanh ging 12/13/2012 10:2 0 PM EDT Narrative 12/14/2012 10:08 AM EDT Examination ACUTE ABD SERIES WITH PA CHEST Clinical History abdominal pain r/o obstruction or free air Comparison 12/14/2019 [id number] hours. Technique Findings There is no interval [...] r/o obstruction or free air Comparison 12/14/2019 [id number] hours. Technique Findings There is no interval [...] Appearance UA Clear Clear CERNER MILLENNIUM Spec Lucien UA 1.014 1.002 - 1.030 CERNER MILLENNIUM [...] intervals supplied above were not validated at [facility]. Results from pediatric patients should [...] CERELIO ARCOSENNIUM * (ABNORMAL) CBC (with Diff) (12/13/2012 10:00 [...] MILLENNIUM RDWSD 42.0 35.0 - 46.[address] [facility] ISRRAELENNIUM RDWCV 13.4 10.9 - 14.4 % [facility] ISRRAELEN[facility]UM MPV 10.5 9.0 - 12.0 fL [facility] Blood specimen (specimen) 12/13/2012 10:00 PM EDT 12/13/2012 10:04 PM EDT Narrative Resulting Agency Comment Spec In Lab Luis E Trotter MD HEMATOLOGY ORDERABLE S [facility] * Lactate Dehydrogenase (12/13/2012 10:00 PM EDT) LDH Not Perf 110 - 220 unit/L [facility] Comment: Unable to quantitate due to sample hemolysis. ??Sample redraw suggested. called to gianna bowens at 12/13/12 23:00 by lani Blood specimen (specimen) 12/13/2012 10:00 PM EDT 12/13/2012 10:04 PM EDT Narrative Resulting Agency Comment Spec In Lab Luis E Trotter MD CHEMISTRY ORDERABLES Performing Organization Address [facility] de Phone Number [facility] * Thrombin time (12/13/2012 10:00 PM EDT) Thrombin Time 19 15 - [address] [facility] Blood specimen (specimen) 12/13/2012 10:00 PM EDT 12/13/2012 10:04 PM EDT Narrative Resulting Agency Comment Spec In Lab Luis E Trotter MD HEMATOLOGY ORDERABLE S [facility] * Fibrinogen (12/13/2012 10:00 PM EDT) Fibrinogen 425 175 - 450 mg/dL [facility] Blood specimen (specimen) 12/13/2012 10:00 PM EDT 12/13/2012 10:04 PM EDT Narrative Resulting Agency Comment Spec In Lab Luis E Trotter MD HEMATOLOGY ORDERABLE S Performing Organization Address [facility]/ZIP Co de Phone Number BAR PINEDAIUM * APTT (12/13/2012 10:00 PM EDT) PTT 27 25 - 35 sec CERNER MILLENNIUM Comment: Recommended therapeutic PTT range for full dose unfractionated heparin is 80-114 seconds. Blood specimen (specimen) 12/13/2012 10:00 PM EDT 12/13/2012 10:04 PM EDT Narrative Resulting Agency Comment Spec In Lab Luis E Trotter MD HEMATOLOGY ORDERABLE S Performing Organization Address [facility] de Phone Number BAR ARCOSENNIUM * (ABNORMAL) Prothrombin Time (12/13/2012 10:00 PM EDT) PT 16.5(H) 12.0 - 15.0 sec CERNER MILLENNIUM Comment: [facility] Transfusion Committee Guidelines: INR less than [...] MD HEMATOLOGY ORDERABLE S Performing Organization Address [facility] Co de Phone Number BRA ARCOSENNIUM * (ABNORMAL) Hepatic Function Panel (12/13/2012 [...] Trotter MD CHEMISTRY ORDERABLES Performing Organization Address [facility] de Phone Number BAR PINEDAIUM * (ABNORMAL) Phosphorus (12/13/2012 10:00 PM EDT) Phosphorus 1.4(Critic al) 2.5 - 4.5 mg/dL CERNER MILLENNIUM Comment: Result rechecked. Called by: lani, Read back by: gianna bowens, Date/Time:12/13/12 23:00. Blood specimen (specimen) 12/13/2012 10:00 PM EDT 12/13/2012 10:04 PM EDT Narrative Resulting Agency Comment Spec In Lab Luis E Trotter MD CHEMISTRY ORDERABLES Performing Organization Address [facility] de Phone Number BAR NOE * (ABNORMAL) Magnesium (12/13/2012 10:00 PM EDT) Magnesium 0.55(L) 0.69 - 1.07 mmol/L CERNER MILLENNIUM Blood specimen (specimen) 12/13/2012 10:00 PM EDT 12/13/2012 10:04 PM EDT Narrative Resulting Agency Comment Spec In Lab Luis E Trotter MD CHEMISTRY ORDERABLES Performing Organization Address [facility] de Phone Number BAR ONE documented in this encounter Visit Diagnoses Not on filedocumented in this encounter Administered Medications Inactive Administered Medications - up to 3 most recent administrations Medication Order MAR Action Action Date Dose Rate Site benzocaine (HURRICANE) 20 % oral spray ONCE PRN, Pain, Starting on Sun12/18/12 at 1643, Until Sun12/27/12 at 2036, For Procedural use. [place] on area for one second. May repeat if necessary. Do not exceed a spray duration of 2 seconds., Intra-Operative (Intra-Procedure) Given 12/18/2012 4:43 PM EDT 1 each fentaNYL 50mcg/mL injection ONCE PRN, Starting on Sun12/18/12 at 1643, Until Ninfa 12/19/12 at 1046, Pain, Intra-Operative (Intra-Procedure), Routine Given 12/18/2012 4:47 PM EDT 25 mcg Given 12/18/2012 4:43 PM EDT 25 mcg midazolam (VERSED) injection ONCE PRN, Starting on Sun12/18/12 at 1643, Until Ninfa 12/19/12 at 1046, Sleep, Intra-Operative (Intra-Procedure), Routine Given 12/18/2012 4:51 PM EDT 0 .5 mg Given 12/18/2012 4:47 PM EDT 0.5 mg Given 12/18/2012 4:43 PM EDT 0.5 mg documented in this encounter Active and Recently Administered Medications Times are shown in EDT. Scheduled Medication Order 12/25/2012 12/26/2012 12/27/2012 caffeine (VIVARIN) tablet 100 mg (COMPLETED) 100 mg, Oral, ONCE, On Sun12/27/12 at 1230, 1 dose 1306 (Given - Provider: Erika Tracy, DRU) chlorhexidine (PERIDEX) 0.12 % oral solution 15 mL (CANCELED) 15 mL, Oral, 2 TIMES DAILY, First dose on Sun12/13/12 at 2130, Until Discontinued, [place] teeth, Routine 0944 (Given - Provider: Alicia Rodriguez, DRU)2100 (Due) 0900 (Not Given - Provider: Erika Tracy RN - Reason: Patient/family refused)2030 (Not Given - Provider: Alicia Rodriguez RN - Reason: Patient/family refused) 0900 (Not Given - Provider: Erika Tracy [...] Oral, 2 TIMES DAILY, First dose on Ninfa 12/26/12 at 1100, Until Discontinued, Routine 1100 (Not Given - Provider: Erika Tracy RN - Reason: Contraindicated - Comment: pt. given IV dose this AM, will start oral this sharifa.)2030 (Given - Provider: Alicia Rodriguez RN) 0900 [...] 1 mg, Oral, DAILY, First dose on Ninfa 12/19/12 at 1200, Until Discontinued 0944 (Given - Provider: Alicia Rodriguez RN) 0900 (Not Given - Provider: Erika Tracy RN - Reason: Medication Discontinued) folic acid (FOLVITE) tablet 1,000 mcg (CANCELED) 1,000 mcg (1 mg), Oral, DAILY, First dose on Ninfa 12/26/12 at 1100, Until Discontinued, Routine 1142 (Given - Provider: Erika Tracy RN) 0900 (Given - Provider: Erika Tracy RN) hydrocortisone 1 % cream (CANCELED) Topical, 2 TIMES DAILY, First dose on Sun12/22/12 at 1245, Until Discontinued 0944 (Given - Provider: Alicia Rodriguez RN)2100 (Due) 0900 (Given - Provider: Erika Tracy RN)2030 (Given - Provider: Alicia Rodriguez RN) 0900 (Given - Provider: Erika Tarcy RN) magnesium oxide (MAG-OX) tablet 400 mg (CANCELED) 400 mg, Oral, 2 TIMES DAILY, First dose on Sun12/21/12 at 1000, Until Discontinued, Routine 0944 (Given - Provider: Alicai Rodriguez RN)2124 (Given - Provider: Faby Walton RN) 09 (Given - Provider: Erika Tracy RN)2030 (Given - Provider: Alicia Rodriguez RN) 0900 (Given - Provider: Erika Tracy RN) multivitamin (THERAGRAN) tablet 1 tablet (CANCELED) 1 tablet, Oral, DAILY, First dose on Sun12/23/12 at 1700, Until Discontinued 0944 (Given - Provider: Alicia Rodriguez RN) 09 (Given - Provider: Erika Tracy RN) 09 (Given - Provider: Erika Tracy RN) sodium [...] level. Please check for lab orders, Routine 185 (Given - Provider: Alicia Rodriguez RN) 181 (Given - Provider: Erika Tracy RN) vancomycin [...] 5 mg, Oral, ONCE, 1 dose, On Sun12/26/12 at 1700, Routine 1700 (Given - Provider: [...] Tracy RN)2046 (See Alternative - Provider: Alicia Rodriguez, DRU) 0350 (See Alternative - Provider: Alicia Rodriguez, DRU)0416 (See Alternative - Provider: Alicia Rodriguez, DRU)0750 (Given - Provider: Erika Tracy RN - Comment: headache) ondansetron (ZOFRAN) injection 4 mg (CANCELED)(Linked Group 3) 4 mg, Intravenous, EVERY 8 HOURS PRN, Starting on Sun12/19/12 at 1230, Until Sun12/27/12 at 2035, Nausea, May repeat times one in 30 minutes if ineffective 1141 (See Alternative - Provider: Erika Tracy RN) 0651 (Given - Provider: Alicia Rodriguez, DRU) ondansetron (ZOFRAN) tablet 4 mg (CANCELED)(Linked Group [...] Tracy RN) 0651 (See Alternative - Provider: Alicia Rodriguez RN) prochlorperazine (COMPAZINE) injection 10 mg [...] Routine documented in this encounter Care Teams Sign Out Clerk Relationship Specialty Start Date End Date Bakari Costello APRN [address] [address] PCP - General 12/13/12 01/12/13 documented as of this encounter
--- OUTSIDE RECORDS SUMMARY | 2023-12-26 11:53 | XMS_ITS | Encounter Summary ---
[place] [address] Care Team Providers Care Skirt Panel Assembler Name Role Phone Ofelia Costello APRN Primary Care Provider [phone] Encounter Details Date Type Department Care Team (Late st Contact Info) Description 12/10/2012 [place] [address] [place] [address] Social History Tobacco Use Types Packs/Day Years [...] FILM LIBRARY STORAGE ONLY DX ABDOMEN Routine 12/10/2012 2:14 PM EDT documented in this encounter Results * Film Library- Storage only DX Abdomen (12/10/2012 2:14 PM EDT) Anatomical Region Laterality Modality Other 12/10/2012 2:14 PM EDT Narrative 07/31/2013 9:40 PM EST This is a non-reportable exam. Procedure Note Nikki, Noel - 07/31/2013 This is a non-reportable exam. Ant Mendoza MD [facility] [place] FILM LIBRARY ORD ERABLES documented in this encounter Visit Diagnoses Not on filedocumented in this encounter Care Teams Skirt Panel Assembler Relationship Specialty Start Date End Date Ofelia Costello APRN [address] [address] PCP - General 12/13/12 01/12/13 documented as of this encounter
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
--- OUTSIDE RECORDS SUMMARY | 2023-12-26 11:53 | XMS_ITS | Encounter Summary ---
Author Organization [facility] [place] [address] Care Team Providers Care Cement And Concrete Plant Worker Name Role Phone Adolph Deshpande MD Primary Care Provider Reason for Visit * Reason Comments Medication Refill Encounter Details Date Type Department Care Team ([facility] st Contact Info) Description 01/22/2011 [place] [address] Tyson Connolly MD [facility] [address] [place] [address] Social History Tobacco Use Types Packs/Day Years [...] on filedocumented in this encounter Care Teams Cement And Concrete Plant Worker Relationship Specialty Start Date End Date Adolph Deshpande MD [address] [place] [id number] PCP - General 05/03/10 12/12/12 documented as of this encounter
--- OUTSIDE RECORDS SUMMARY | 2023-12-26 11:53 | XMS_ITS | Encounter Summary ---
Author Organization [facility] Address [facility] [place] [address] Care Team Providers Care Enterprise Systems Engineer Name Role Phone Jason Davila MD Primary Care Provider [phone] Encounter Details Date Type Department Care Team (Late st Contact Info) Description 12/14/2012 Orders Only [place] [address] Robin Cheng MD [facility] [address] TTP (thrombotic thrombocytopenic purpura) (Primary Dx) Social History Tobacco Use Types [...] as of this encounter Visit Diagnoses Diagnosis 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
--- OUTSIDE RECORDS SUMMARY | 2023-12-26 11:53 | XMS_ITS | Continuity of Care Document ---
Author Organization [place] [facility], [facility] Address [address] [place] [address] Assessment No assessment recorded. Plan of Treatment Reminders Order Date Submit Date Provider Last Modified By Organization Details Last Modified Time Details Appointments Nurse Visit 30 2023 11:00A M [place] Nursing Staff Not available Not available Not available Annual Wellness Exam 2023 10:00A M REBECCA VEE Not available Not available Not available Lab None recorded. Referral None recorded. Procedures None recorded. Surgeries None recorded. Imaging exercise stress test - urgent 2023 024 [facility] Cardiology - Exercise Stress Test/Prasad/Stre ss Echo Scheduling, [address] [place] [address] , [place], [address], 12/11/2023 08:37:18 Medication Orders aspirin 81 mg chewable tablet 2023 024 [email or web address] [email or web address] [id number], [address], [place], [address], 10/12/2023 14:37:41 atorvasta tin 20 mg tablet [address], [address], [place], [place], [id number], 10/12/2023 16:24:42 sertralin e 50 mg tablet [address], [address], [place], [place], [id number], 10/12/2023 16:24:42 Patient TargetsNo targets recorded. Patient Instructions Encounter Date Encounter Id Patient Instructions Last Modified By Organization Details Last Modified Time 10/12/2023 [id number] stress test Star t aspirin and atorvastatin - these will be stopped if stress test negative and you are feeling better Sertraline 50 mg nightly. Increase to 100 mg in one week if no change. 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 Hx of tonsil stones, please assess Referring Physician: Arielle Back, Family Medicine, Encounter Date: 07/18/2023 Results Created Date Observation Date Name Description Value Unit Range Abnormal Flag LastModifiedBy Organization Detail LastModifiedTime 10/04/19 24 10/03/2023 XR, toe(s ) ABNORM AL FINDIN G PROCED URE INFORM ATION: Exam: XR Right Foot Exam date and time: 024 2:36 PM Age: 63 years old Clinic al indica tion: Pain in right foot. R great toe at first mtp, o2 tank fell on it TECHNI QUE: Imagin g protoc ol: Radiol ogic exam of the right foot. Views: 3 or more views. COMPAR DALE: No releva nt prior studie s availa ble. FINDIN GS: Bones/ joints : Degene rative change s of the 1st metata rsal phalan geal joint. No displa dick fractu re identi fied. Soft tissue s: Soft tissue swelli ng of the right great toe. IMPRES CYNTHIA: No acute bony findin gs. Degene rative change s of the right metata rsopha langea l joint. If clinic al sympto ms persis t recomm end follow up film in 7-10 days. Report signed by: Nesha hussein On 2023 16:39: 25 [facility] [address], [place], [address], 10/15/2023 10:10:06 12/11/19 24 12/10/2023 exerc ise stres s test No observ ation record ed. [email or web address] [facility] [address] , [place], [id number], 12/12/2023 06:07:52 12/14/19 24 12/14/2023 exerc ise [...] Problem Code: E05.00; Problem Code Type: ICD-10; REBECCA VEE MD [address], [place], [address] , [facility] 4 12:08:36 Psychophysiol ogic insomnia Active 201202/25/2020 - Comments only - Rebecca Vee MD - Can continue as needed zolpidem Problem Code: F51.04; Problem Code Type: ICD-10; Not Available [facility] 3 04:02:47 Low back pain Active 2014 Problem Code: M54.5; Problem Code Type: ICD-10; Not Available [facility] 3 04:02:47 Palpitations Active 201401/11/2018 - Comments only - Rebecca Vee MD - Sound like benign PACs or PVCs. Minimally symptomatic. No testing needed. Problem Code: R00.2; Problem Code Type: ICD-10; Not Available [facility] 3 04:02:47 Presbycusis Active 2014 Problem Code: H91.13; Problem Code Type: ICD-10; Not Available [facility] 3 04:02:47 Thrombotic microangiopat hy Completed 201410/15/2023 02/19/2019 - Comments only - Rebecca Vee MD - We will continue to follow her renal function long-term because of this history. Problem Code: M31.1; Problem Code Type: ICD-10; MD [address], [place], [address] , [facility] 4 12:08:24 Thromboemboli sm of vein Completed 201410/15/2023 Problem Code: I82.90; Problem Code Type: ICD-10; MD [address], [place], [address] , [facility] 4 12:08:31 Cardiomyopath y Completed 201410/15/2023 02/25/2020 - Comments only - Rebecca Vee MD - This had resolved but we do surveillance every few years. She will get an echo at the start of the new year. There is nothing else to suggest that HF is the cause of her fatigue. Problem Code: I42.9; Problem Code Type: ICD-10; MD [address], [place], [address] , [facility] 4 12:07:55 Adult health examination Active 201403/13/2022 - Comments only - Rebecca Vee MD - Pap sent. She can only another month before getting her boosters. Problem Code: Z00.00; Problem Code Type: ICD-10; Not Available [facility] 3 04:02:48 Dysuria Completed 201506/15/2015 Problem Code: R30.0; Problem Code Type: ICD-10; Not Available [facility] 3 04:02:48 Urinary tract infectious disease Completed 201506/28/2015 Problem Code: N39.0; Problem Code Type: ICD-10; Not Available [facility] 3 04:02:48 Cervical radiculopathy Active 201602/19/2019 [...] M54.12; Problem Code Type: ICD-10; Not Available [facility] 3 04:02:48 Inflamed seborrheic keratosis Completed 201610/02/2017 04/05/2017 - Comments only - Cody Sahni PA-C - Irritated seborrheic keratosis. Treated with cryotherapy standard fashion 3 freeze thaw cycles. Recheck if this does not fall off. Sooner if needed. Problem Code: L82.0; Problem Code Type: ICD-10; Not Available [facility] 3 04:02:48 Abdominal colic Completed 201703/14/2023 Problem Code: R10.83; Problem Code Type: ICD-10; Not Available [facility] 4 05:35:48 Idiopathic osteoarthriti s Active 2018 Problem Code: M18.11; Problem Code Type: ICD-10; Not Available [facility] 3 04:02:48 Lesion of right ulnar nerve Active 2018 Problem Code: G56.21; Problem Code Type: ICD-10; Not Available [facility] 3 04:02:49 Acute frontal sinusitis Completed 201804/23/2019 04/02/2019 - Comments only - Rebecca Vee MD - Because of the duration I am going to treat her with high-dose amoxicillin for 1 week. Continue efforts at drainage. Problem Code: J01.10; Problem Code Type: ICD-10; Not Available [facility] 3 04:02:49 Chest pain Completed 201806/28/2019 05/28/2019 [...] R07.89; Problem Code Type: ICD-10; Not Available [facility] 3 04:02:49 Trochanteric bursitis of left hip Completed 202010/15/2023 02/09/2021 - Comments only - Rebecca Vee MD - Suggested she try taking 1 Aleve every evening Problem Code: M70.62; Problem Code Type: ICD-10; MD [address], [place], [address] , [facility] 4 12:08:39 Pre-surgery evaluation Completed 202002/10/2021 02/09/2021 [...] Z01.818; Problem Code Type: ICD-10; Not Available [facility] 3 04:02:49 Bradycardia Active 202002/09/2021 - Comments only - Rebecca Vee MD - Twelve-lead EKG shows normal rate, normal conduction, no bundle-branch block. She cannot identify precipitants like stress or pain that would suggest increased vagal tone. And then get a 14-day CO because this is still, check Lyme serology, basic labs. Problem Code: R00.1; Problem Code Type: ICD-10; Not Available [facility] 3 04:02:49 Adult health examination Completed 202005/03/2021 Problem Code: Z00.00; Problem Code Type: ICD-10; Not Available [facility] 3 04:02:50 Acute conjunctiviti s Completed 202110/15/2023 Problem Code: H10.30; Problem Code Type: ICD-10; MD [address], [place], [address] , [facility] 4 12:07:47 Squamous cell carcinoma of skin Completed 202110/15/2023 Problem Code: C44.92; Problem Code Type: ICD-10; REBECCA VEE MD [address], [place], [address] , [facility] 4 12:08:20 COVID-19 Completed 202110/15/2023 03/13/2022 - Comments only - Rebecca Vee MD - Reason: It was mild Problem Code: U07.1; Problem Code Type: ICD-10; REBECCA VEE MD [address], [place], [address] , [facility] 4 12:07:59 Peritonsillar abscess Completed 202102/23/2022 02/09/2022 - Comments only - Rebecca Vee MD - History and her age but she is pretty symptomatic in the adenitis is impressive. He we will treat with amoxicillin and gargles. Problem Code: J36; Problem Code Type: ICD-10; Not Available [facility] 3 04:02:50 Pain in throat Completed 202103/14/2023 Problem Code: R07.0; Problem Code Type: ICD-10; Not Available [facility] 4 05:35:47 Nausea Completed 202211/24/2022 Problem Code: R11.0; Problem Code Type: ICD-10; Not Available [facility] 3 04:02:51 Noninfectious gastroenterit is Completed [...] because of the colitis symptoms. Not Available [facility] 3 04:02:51 Adjustment disorder Completed 201405/13/2015 Problem Code: F43.20; Problem Code Type: ICD-10; Not Available [facility] 3 04:02:54 Chronic kidney disease Completed 201412/07/2015 Problem Code: N18.9; Problem Code Type: ICD-10; Not Available [facility] 3 04:02:54 Chest pain Completed 201405/13/2015 Problem Code: R07.9; Problem Code Type: ICD-10; Not Available [facility] 3 04:02:54 Graves' disease Completed 201203/07/2023 Not Available [facility] 3 04:02:54 Fracture at wrist and/or hand level Completed 201205/13/2015 Not Available [facility] 3 04:02:55 Hemorrhoids Completed 201205/13/2015 Not Available [facility] 3 04:02:55 Pleuritic pain Completed 201902/23/2020 Problem Code: R07.81; Problem Code Type: ICD-10; Not Available [facility] 3 04:02:55 Acute sinusitis Completed 201405/19/2015 Problem Code: J01.90; Problem Code Type: ICD-10; Not Available [facility] 3 04:02:55 Constipation Completed 201201/11/2018 Not Available [facility] 3 04:02:56 Tear film insufficiency Completed 201405/13/2015 Problem Code: H04.129; Problem Code Type: ICD-10; Not Available [facility] 3 04:02:56 Pruritus ani Completed 201205/13/2015 Problem Code: 698.0; Problem Code Type: ICD-9; Not Available [facility] 3 04:02:56 Sinusitis Completed 201205/13/2015 Not Available [facility] 3 04:02:56 Tinnitus Completed 201403/07/2023 Problem Code: H93.19; Problem Code Type: ICD-10; Not Available [facility] 3 04:02:57 Basal cell carcinoma of skin [...] C44.91; Problem Code Type: ICD-10; Not Available [facility] 3 04:02:57 Hyperthyroidi sm Completed 201205/13/2015 Not Available [facility] 3 04:02:57 Shoulder joint pain Completed 201405/13/2015 Problem Code: M25.519; Problem Code Type: ICD-10; Not Available [facility] 3 04:02:58 Motion sickness Completed 201405/13/2015 Problem Code: T75.3; Problem Code Type: ICD-10; Not Available [facility] 3 04:02:58 Family history of Arthritis Completed 201205/13/2015 Problem Code: V17.7; Problem Code Type: ICD-9; Not Available [facility] 3 04:02:58 Insomnia Completed 201203/07/2023 Not Available [facility] 3 04:02:58 Hyperlipidemi a Completed 201205/13/2015 Problem Code: 272.4; Problem Code Type: ICD-9; Not Available [facility] 3 04:02:58 Heart failure Completed 201403/07/2023 Problem Code: I50.9; Problem Code Type: ICD-10; Not Available [facility] 3 04:03:00 Closed fracture of distal end of radius Completed 201205/13/2015 Problem Code: 813.42; Problem Code Type: ICD-9; Not Available [facility] 3 04:03:00 Asthma Completed 200605/13/2015 Problem Code: 493.90; Problem Code Type: ICD-9; Not Available [facility] 3 04:03:00 Hypoxia Completed 201405/13/2015 Problem Code: R09.01; Problem Code Type: ICD-10; Not Available [facility] 3 04:03:00 Chronic salpingitis Completed 201405/13/2015 Problem Code: N70.11; Problem Code Type: ICD-10; Not Available [facility] 3 04:03:00 Accident caused by needle Completed 201405/13/2015 Not Available [facility] 3 04:03:01 Acute pharyngitis Completed 202204/10/2023 Problem Code: J02.9; Problem Code Type: ICD-10; Not Available [facility] 4 05:35:44 Pneumonia Completed 202204/10/2023 04/02/2023 - Comments only - Arielle Back BLUE LINE HANGER - Diagnosed by [facility], Anum continues to feel lousy despite day 7 of Augmentin. Will check chest xray and proceed accordingly. Recommend finish all abx, push fluids and take it easy. RTC INI or feelng worse Problem Code: J18.9; Problem Code Type: ICD-10; Not Available [facility] 4 05:35:45 Acute tonsillitis Completed 202310/15/[address], [place], [address] , [facility] 4 12:07:40 Tight chest Active [address], [place], [address] , [facility] 4 17:44:31 Pain in right foot Active [address], [place], [address] , [facility] 4 12:26:32 Adjustment disorder with anxious mood Active [address], [place], [address] , [facility] 4 16:08:15 Diarrhea Active [address], [place], [address] , [facility] 4 10:36:18 Problem Notes None recorded. Medical Equipment None Reported. Allergies Allergen ID Allergen Name Allergen Category Reaction Reaction Severity Criticality Documentation Date Start Date Code Code System Note Provider Name and Address Organization Details Recorded Time 11591 doxycycli ne monohydra te medicatio n vomiting moderate Not available 04/20/20232016 63207 2 RxNorm GI Issue s (N/V) Aller gyRea ction : 'GI Issue s (N/V) '; Not Available [facility] 3 16:22:22 [address]0986 erythromy ibeth medicatio n vomiting moderate Not available 04/20/20232012 4053 RxNorm GI Issue s (N/V) Aller gyRea ction : 'GI Issue s (N/V) '; Aller gyCod e: '3680 28595 64'; Aller gyNam e: 'ERYT HROMY IBETH'; Aller gyCon ceptT ype: 'NDC' ; Not Available [facility] 3 16:22:22 Medications Name Sig Start Date [...] 07/31 completed dose adjustme nts per Dr. Acuna n Not Available Not Available Not Available hydrocodo [...] Not Available Not Available Not Available Vitals Date Recorded Body height Body mass index (BMI) Body weight Oxygen saturation Oxygen saturation in Arterial blood by Pulse oximetry Heart rate Systolic blood pressure Diastolic blood pressure Provider Name and Address Organization Details Last Updated DateTime 4 171.45 cm 22.3 kg/m2 63794.1 8 g 94 % 94 % 70 /min 116 mm[Hg] 68 mm[Hg] KEVYN THACKER MA [facility] - [facility] 14:14:27 Social History None recorded. Functional Status None [...] had a brother who at 44 from CAD/SD. Medical History No medical history recorded. Gynecological HistoryNo gynecological history recorded. Obstetrics History GPAL:G 0 P 0 0 0 0 Immunizations Vaccine Type Date Status Provider Name and Address Organization Details Recorded Time Tdap 10/03/2019 completed Not Available [facility] 05:19:55 Tdap 03/10/2009 completed Not Available [facility] 05:19:55 zoster live 05/10/2015 completed Not Available [facility] 04/20/2023 05:19:56 Influenza, split virus, quadrivalent, PF 03/13/2022 completed Not Available [facility] 04/20/2023 05:19:56 Influenza, split virus, quadrivalent, PF 03/17/2020 completed Not Available [facility] 04/20/2023 05:19:56 Influenza, split virus, quadrivalent, PF 03/24/2021 completed Not Available [facility] 04/20/2023 05:19:56 zoster recombinant 11/20/2017 completed Not Available [facility] 04/20/2023 05:19:57 zoster recombinant 03/29/2018 completed Not Available [facility] 04/20/2023 05:19:57 COVID-19, mRNA, LNP-S, PF, 100 mcg/0.5mL dose or 50 mcg/0.25mL dose 07/05/2020 completed Not Available [facility] 04/20/20 05:19:58 COVID-19, mRNA, LNP-S, PF, 100 mcg/0.5mL dose or 50 mcg/0.25mL dose 04/11/2021 completed Not Available [facility] 04/20/20 05:19:58 COVID-19, mRNA, LNP-S, PF, 100 mcg/0.5mL dose or 50 mcg/0.25mL dose 06/08/2020 completed Not Available [facility] 04/20/20 05:19:58 SARS-COV-2 (COVID-19) vaccine, UNSPECIFIED 04/21/2022 completed Not Available [facility] 04/20/2023 05:19:59 Hep B, unspecified formulation 09/07/2009 completed Not Available [facility] 04/20/2023 05:19:59 Hep B, unspecified formulation 03/10/2009 completed Not Available [facility] 04/20/2023 05:20:00 Hep B, unspecified formulation 04/12/2009 completed Not Available [facility] 04/20/2023 05:20:00 Hep A, adult 10/03/2019 completed Not Available [facility] 04/20/2023 05:20:00 influenza, unspecified formulation 03/09/2014 completed Not Available [facility] 04/20/2023 05:20:00 influenza, unspecified formulation 03/24/2019 completed Not Available [facility] 04/20/2023 05:20:00 influenza, unspecified formulation 03/28/2017 completed Not Available [facility] 04/20/2023 05:20:00 influenza, unspecified formulation 04/19/2018 completed Not Available [facility] 04/20/2023 05:20:00 influenza, unspecified formulation 05/02/2016 completed Not Available [facility] 04/20/2023 05:20:00 Influenza, high-dose, quadrivalent, PF 04/23/2023 completed Not Available [facility] 06/22/2023 05:31:13 Past Encounters Encounter ID Performer Location Encounter Start Date Encounter Closed Date Diagnosis/Indication Diagnosis SNOMED-CT Code [id number] [address] [address] 10/12/2023 14:13:29 10/12/2023 14:40:04 Tight chest [id number] Adjustment disorder with anxious mood [id number] Health Concerns Section Related Observation LastModified by Organization Detai ls LastModified Time None Recorded Concern Status LastModified by Organization Details LastModified Time None Recorded Payers Encounter Date Sequence Insurance Name Policy Number Policy Roman Covered Member ID Roman Member ID Guarantor Name 10/12/2023 1 [employer]ANT[place] - PPO) [id number] Anum Henriquez [id number] Anum Henriquez Notes Date Note Type Note Provider Name and Address Organization Details Recorded Time 10/12/2023 text/html HPI Notes: This visit is for chest pain which clearly relates to high level of stress. Her son has life-threatening lung disease, and she worries more about this than she has ever worried about anything else. On 1 occasion she had 20 minutes of chest tightness after coming home with him, and she was evaluated here with EKG. That was negative. It has happened repeatedly though never that long again. It is also happened at least once or twice when she was walking rapidly. She can get a little bit lightheaded with that, but has not had diaphoresis or nausea. She is also sleeping poorly. Typically gets to sleep with zolpidem but then wakes up and cannot get back to sleep. Hot flashes contribute. She is not depressed or anhedonic, more anxious. Does not abuse drugs or alcohol ever. Never suicidal. Not having significant heartburn or dysphagia. She cannot walk is much as usual right now because she stubbed her toe badly and it hurts to be on her feet. That is improving rapidly. Family history is noteworthy, brother of SD in his 40s and her father had his first SD in his 50s. REBECCA VEE MD [address], [place], [address], [facility]. 10/12/2023 16:08:24 OBGyn Episode No OBEpisode recorded.
[2023-12-27 23:35] LABS: Campylobacter PCR Negative (Negative); Salmonella PCR Negative (Negative); Shiga Toxin PCR Negative (Negative); Shigella/Enteroinvasive Ecoli Negative (Negative)
== END 2023-12-26 11:46 | disposition home or self-care (01) ==
LOC: NCHCN 11:45
PROVIDERS: PCP Internal Medicine; Visit Provider Nurse Practitioner Family
DX: R19.7 Diarrhea, unspecified (principal)
CPT/HCPCS: 87329; 87493; 87505; 83630; 87177

== ENCOUNTER 2024-02-04 13:18 | Outpatient (REF) | payer MEDICARE, SELFPAY ==
--- OUTSIDE RECORDS SUMMARY | 2024-02-04 13:20 | XMS_ITS | Encounter Summary ---
Author Organization [facility] [place] [address] Care Team Providers Care Records Specialist Name Role Phone Jason Davila MD Primary Care Provider [phone] Reason for Visit * Reason Onset Date Comments Other 01/30/2014 Encounter Details Date Type Department Care Team (Late st Contact Info) Description 01/30/2014 [place] [address] Yee Cabello Other Social History Tobacco Use [...] on filedocumented in this encounter Care Teams Records Specialist Relationship Specialty Start Date End Date Jason Davila MD [address] [place] [address] [place] [address] PCP - General 01/13/13 12/09/23 marilyn noble Consulting Physician Gastroenterology 01/13/13 documented as of this encounter
--- OUTSIDE RECORDS SUMMARY | 2024-02-04 13:20 | XMS_ITS | Encounter Summary ---
Author Organization [facility] Address [address] [place] [address] Care Team Providers Care Family Readiness Support Assistant Name Role Phone Kemal Vee MD Primary Care Provider Encounter Details Date Type Department Care Team (Late st Contact Info) Description 05/25/2020 Lab Requisition [facility] Pathology & Laboratory Medicine - [facility] [address], [place] [address] Outr Resulting Lab, Provider Social History Tobacco [...] Outr Resulting Lab MICROBIOLOGY - GENERAL ORDERABLES [facility] [place], [place] * COVID-19 TESTING (05/24/2020 14:15 EST) COVID-19 rt-PCR Result NEGATIVE Negative 05/27/2020 21:35 EST [facility] Comment: 2019-novel Coronavirus (2019-nCoV) not detected [...] Administration's Emergency Use Authorization. Performing Lab [facility] 05/27/2020 21:35 EST [facility] Swab 05/24/2020 14:1 5 EST 05/25/2020 16:30 EST Provider Outr Resulting Lab MICROBIOLOGY - GENERAL ORDERABLES [facility] [address] [place] [address] [facility] [place], [place] documented in this encounter Visit Diagnoses Not on filedocumented in this encounter Care Teams Family Readiness Support Assistant Relationship Specialty Start Date End Date Kemal Vee MD [address] [place] [address] PCP - General 09/09/21 documented as of this encounter
--- OUTSIDE RECORDS SUMMARY | 2024-02-04 13:20 | XMS_ITS | Encounter Summary ---
Author Organization [facility] Address [address] [place] [address] Care Team Providers Care Zinc Miner Blasting Name Role Phone Kemal Vee MD Primary Care Provider [phone] Encounter Details Date Type Department Care Team (Late st Contact Info) Description 11/25/2019 Lab Re[address] [facility] Pathology & Laboratory Medicine - [facility] [address] [place], [place] [id number] Outr Resulting Lab, Provider Social History Tobacco [...] rt-PCR Result NEGATIVE Negative 11/26/2019 22:45 EDT [facility] Comment: 2019-novel Coronavirus (2019-nCoV) not [...] in accordance with CLIA regulations, [employer] (CAP) guidelines (Aug 28, 2019), and FDA guidance (Aug 09, 2019). This test is only for use under the Food and Drug Administration's Emergency Use Authorization. Swab ENTIRE NASOPHARYNX / Unknown 11/25/2019 8:30 EDT 11/25/2019 19:31 EDT Provider Outr Resulting Lab MICROBIOLOGY - GENERAL ORDERABLES [place], [place] * COVID-19 TESTING (11/25/2019 8:30 EDT) [facility] COVID-19 rt-PCR Result NEGATIVE Negative 11/27/2019 7:05 EDT [facility] Comment: 2019-novel Coronavirus (2019-nCoV) not detected [...] in accordance with CLIA regulations, [employer] (CAP) guidelines (Aug 28, 2019), and FDA guidance (Aug 09, 2019). This test is only for use under the Food and Drug Administration's Emergency Use Authorization. Performing Lab [facility] 11/27/2019 7:05 EDT [facility] Swab ENTIRE NASOPHARYNX / Unknown 11/25/2019 8:30 EDT 11/25/2019 19:31 EDT Provider Outr Resulting Lab MICROBIOLOGY - GENERAL ORDERABLES [facility] [address] [place] [address] [facility] [place], [place] documented in this encounter Visit Diagnoses Not on filedocumented in this encounter Care Teams Zinc Miner Blasting Relationship Specialty Start Date End Date Kemal Vee MD [address] [place] [address] PCP - General 09/09/21 documented as of this encounter
--- OUTSIDE RECORDS SUMMARY | 2024-02-04 13:20 | XMS_ITS | Encounter Summary ---
Author Organization [facility] Address [address] [place] [address] Care Team Providers Care Rn Clinical Research Name Role Phone Kemal Vee MD Primary Care Provider [phone] Encounter Details Date Type Department Care Team (Late st Contact Info) Description 12/27/2023 Lab Requisition [facility] Pathology & Laboratory Medicine - [facility] [address] [place] [address] Outr Resulting Lab, Provider Social History Tobacco [...] Comments FECAL BACTERIAL PATHOGENS BY PCR Routine 12/26/2023 11:10 EDT GIARDIA AND CRYPTOSPORIDIUM ANTIGENS Routine 12/26/2023 11:10 EDT OVA/PARASITE EXAM Routine 12/26/2023 11: 10 EDT documented in this encounter Results * GIARDIA AND CRYPTOSPORIDIUM ANTIGENS (12/26/2023 11:10 EDT) Giardia and Cryptosporidium Cryptosporidium Antigen Neg and Giardia Antigen Neg Cryptosporidium Antigen Neg and Giardia Antigen Neg 13:53 EDT [facility] Feces SPECIMEN FROM RECTUM / Unknown 12/26/2023 11:10 EDT 12/27/2023 17:03 EDT Provider Outr Resulting Lab MICROBIOLOGY - GENERAL ORDERABLES [facility] [address] [place] [address] * FECAL BACTERIAL PATHOGENS BY PCR (12/26/2023 11:10 EDT) Salmonella PCR Negative Negative 12/27/2023 23:30 EDT [facility] Shigella/Enteroin vasive E. coli Negative Negative 12/27/2023 23:30 EDT [facility] HN LAB CAMPYLOBACTER PCR Negative Negative 12/27/2023 23:30 EDT [facility] Shiga Toxin PCR Negative Negative 23:30 EDT [facility] Feces SPECIMEN FROM RECTUM / Unknown 12/26/2023 11:10 EDT 12/27/2023 17:03 EDT Provider Outr Resulting Lab MICROBIOLOGY - GENERAL ORDERABLES Performing Organization Address [facility] Co de Phone Number [facility] [address] [place] [address] * OVA/PARASITE EXAM (12/26/2023 11:10 EDT) Parasite No ova and parasites seen. 12/30/2023 14:16 EDT [facility] Feces SPECIMEN FROM RECTUM / Unknown 12/26/2023 11:10 EDT 12/27/2023 17:36 EDT Narrative [facility] - 12/30/2023 14:16 EDT (If Cryptosporidium, Cyclospora, or Microsporidium are suspected, specific tests must be requested.) Single negative specimen does not rule out the possibility of a parasitic infection. Provider Outr Resulting Lab MICROBIOLOGY - GENERAL ORDERABLES Performing Organization Address City/[facility]/ZIP Co de Phone Number [facility] [address] [place] [address] documented in this encounter Visit Diagnoses Not on filedocumented in this encounter Care Teams Rn Clinical Research Relationship Specialty Start Date End Date Kemal Vee MD [address] [place] [address] PCP - General 09/09/21 documented as of this encounter
--- OUTSIDE RECORDS SUMMARY | 2024-02-04 13:20 | XMS_ITS | Clinical Summary ---
Author Organization [facility] Address [address] [place] [address] Care Team Providers Care Honing Machine Set Up Operator Tool Name Role Phone Kemal Vee MD Primary Care Provider Encounters Date Type Department Care Team Description 12/27/2023 Lab Requisition [facility] Pathology & Laboratory Medicine - [facility] [address] [place] [address] Outr Resulting Lab, Provider from Last 3 Months Social History Tobacco Use Types Packs/Day Years [...] - 1-dose 60+ series) 2018 COVID-19 Vaccine (2022- season) 2023 Fall Risk Screening 2023 Procedures Procedure Name Priority Date/Time Associated Diagnosis Comments GIARDIA AND CRYPTOSPORIDIUM ANTIGENS Routine 12/26/2023 11:10 EDT FECAL BACTERIAL PATHOGENS BY PCR Routine 12/26/2023 11:10 EDT OVA/PARASITE EXAM Routine 12/26/2023 11: 10 EDT from Last 3 Months Results * FECAL BACTERIAL PATHOGENS BY PCR (12/26/2023 11:10 EDT) Salmonella PCR Negative Negative 12/27/2023 23:30 EDT [facility] Shigella/Enteroin vasive E. coli Negative Negative 12/27/2023 23:30 EDT [facility] HN LAB CAMPYLOBACTER PCR Negative Negative 12/27/2023 23:30 EDT [facility] Shiga Toxin PCR Negative Negative 23:30 EDT [facility] Feces SPECIMEN FROM RECTUM / Unknown 12/26/2023 11:10 EDT 12/27/2023 17:03 EDT Provider Outr Resulting Lab MICROBIOLOGY - GENERAL ORDERABLES Performing Organization Address City/[facility] Co de Phone Number [facility] [address] [place] [address] * GIARDIA AND CRYPTOSPORIDIUM ANTIGENS (12/26/2023 11:10 EDT) Giardia and Cryptosporidium Cryptosporidium Antigen Neg and Giardia Antigen Neg Cryptosporidium Antigen Neg and Giardia Antigen Neg 13:53 EDT [facility] Feces SPECIMEN FROM RECTUM / Unknown 12/26/2023 11:10 EDT 12/27/2023 17:03 EDT Provider Outr Resulting Lab MICROBIOLOGY - GENERAL ORDERABLES Performing Organization Address [facility] de Phone Number [facility] [address] [place] [address] * OVA/PARASITE EXAM (12/26/2023 11:10 EDT) Parasite No ova and parasites seen. 12/30/2023 14:16 EDT [facility] Feces SPECIMEN FROM RECTUM / Unknown 12/26/2023 11:10 EDT 12/27/2023 17:36 EDT Narrative [facility] - 12/30/2023 14:16 EDT (If Cryptosporidium, Cyclospora, or Microsporidium are suspected, specific tests must be requested.) Single negative specimen does not rule out the possibility of a parasitic infection. Provider Outr Resulting Lab MICROBIOLOGY - GENERAL ORDERABLES Performing Organization Address [facility]/State/ZIP Co de Phone Number [facility] [address] [place] [address] from Last 3 Months Care Teams Honing Machine Set Up Operator Tool Relationship Specialty Start Date End Date Kemal Vee MD [address] [place] [address] PCP - General 09/09/21
--- OUTSIDE RECORDS SUMMARY | 2024-02-04 13:20 | XMS_ITS | Encounter Summary ---
Author Organization [facility] Address [address] [place] [address] Care Team Providers Care Draughtsman Name Role Phone Kemal Vee MD Primary Care Provider Encounter Details Date Type Department Care Team (Late st Contact Info) Description 10/13/2021 Lab Requisition [facility] Pathology & Laboratory Medicine - [facility] [address] [place] [address] Kemal Vee MD [address] [place] [address] Encounter for other general examination [...] management options, if applicable. 10/14/2021 14:20 EDT [facility] Final Diagnosis A. SKIN OF CHEST LEFT EXCISION: - Squamous cell carcinoma, well differentiated, superficially invasive. - Margins negative for squamous cell carcinoma (in the plane the complete sections examined). 10/14/2021 14:20 [facility] Attestation By the signature below, the attending physician certifies that they have 1) personally conducted a gross and/or microscopic examination of the described specimen(s), and/or personally interpreted the results of laboratory testing of the described specimen(s), and 2) personally rendered or confirmed the above diagnosis. 10/14/2021 14:20 [facility] at [address]20 Microscopic Description Sections [...] Deeper sections have similar features. 10/14/2021 14:20 [facility] Clinical History BCC; DDx: BCC, SCC, keratinized skin tag 10/14/2021 14:20 [facility] Gross Description A. Received in [...] face. DESHAUN MUSA(ASCP) 10/13/2021 18:45 10/14/2021 14:20 [facility] Performing Lab [facility] 10/14/2021 14:20 [facility] Scanned Images 10/14/2021 14:20 [facility] Tissue TISSUE SPECIMEN FROM SKIN / Unknown 10/12/2021 17:00 EDT 10/13/2021 17:16 EDT Kemal Vee MD PATHOLOGY ORDERABLES [facility] [address] [place] [address] documented in this encounter Visit Diagnoses Diagnosis Encounter for other general examination documented in this encounter Care Teams Draughtsman Relationship Specialty Start Date End Date Kemal Vee MD [address] [place] [address] PCP - General 09/09/21 documented as of this encounter
--- OUTSIDE RECORDS SUMMARY | 2024-02-04 13:20 | XMS_ITS | Encounter Summary ---
Author Organization [facility] [place] [address] Care Team Providers Care Director Account Management Name Role Phone Jason Davila MD Primary Care Provider [phone] Encounter Details Date Type Department Care Team (Latest Contact Info) Description 05/22/2013 12:36 PM EST - 05/22/2013 11:59 PM EST [place] [address] Jason Davila MD [address] [place] [phone] Discharge Disposition: Home Social History Tobacco Use [...] (ABNORMAL) Prothrombin Time (05/22/2013 1:15 PM EST) Prothrombin Time 28.5(H) 12.0 - 15.0 sec BAR NOE Comment: [facility] Transfusion Committee Guidelines: INR less than 2.0, PTT less than OR equal to 43.5 seconds, or Fibrinogen greater than or equal to 100 mg/dl indicate adequate procoagulant activity for hemostasis in patients without underlying bleeding disorders. International Normalization Ratio 2.6(H) 0.9 - 1.1 BAR NOE Blood specimen (specimen) 05/22/2013 1:15 PM EST 05/22/2013 1:22 PM EST Narrative Resulting Agency Comment Spec In Lab Jason Davila MD HEMATOLOGY ORDERABLE S BAR NOE documented in this encounter Visit Diagnoses Not on filedocumented in this encounter Care Teams Director Account Management Relationship Specialty Start Date End Date Jason Davila MD [address] [place] [address] [place] [address] PCP - General 01/13/13 12/09/23 marilyn noble Consulting Physician Gastroenterology 01/13/13 documented as of this encounter
--- OUTSIDE RECORDS SUMMARY | 2024-02-04 13:20 | XMS_ITS | Clinical Summary ---
Author Organization [facility] Address [facility] [place] [address] Care Team Providers Care Lead Project Engineer Name Role Phone Kemal Vee MD Primary Care Provider Allergies Active Allergy Reactions Criticality Noted Date [...] daily. 30 tablet 12 01/03/2013 Active OMEGA 7-OUU-OLM-FISH OIL ORALIndications:History of TTP (thrombotic thrombocytopenic purpura) [...] PM EDT Hospital Encounter Non-[place] [address] Kemal Vee MD Chest pain, unspecified type Discharge Disposition: Home 12/10/2023 Travel 12/03/2023 Travel from Last 3 Months Immunizations Name Administration [...] 2) 02/28/2008 Advance Directive 2013 Covid-19 Vaccine ( season) 2023, 06/08/2020 Bone Density Scan 2023 [...] 6:49 PM EDT HIV SCREEN, 4TH GENERATION ([facility]/CGP/APD/NLH) Routine 12/16/2012 6:15 PM EDT from Last 3 Months or Most Recently Relevant to Health Maintenance Results * Stress Test, Exercise (Treadmill) (12/10/2023 3:51 PM EDT) Anatomical Region Laterality Modality Other Kemal Vee MD CARDIAC SERVICES ORD ERABLES * Hepatitis C Antibody (12/17/2012 6:49 PM EDT) Hepatitis C Antibody Negative Negative [facility] Blood specimen (specimen) 12/17/2012 6:49 PM EDT 12/17/2012 7:03 PM EDT Narrative Resulting Agency Comment Spec In Lab Fabi Romero MD CHEMISTRY ORDERA BLES BAR NOE * HIV (12/16/2012 6:15 PM EDT) HIV 1/2 Ab Negative [facility] Blood specimen (specimen) 12/16/2012 6:15 PM EDT 12/16/2012 6:20 PM EDT Narrative Resulting Agency Comment Spec In Lab Fabi Romero MD CHEMISTRY ORDERA BLES BAR NOE from Last 3 Months or Most Recently [...] is based on Patients wishes. Care Teams Lead Project Engineer Relationship Specialty Start Date End Date Kemal Vee MD [address] [place] [address] PCP - General General Internal Medicine 12/10/23 marilyn noble Consulting Physician Gastroenterology 01/13/13
--- OUTSIDE RECORDS SUMMARY | 2024-02-04 13:20 | XMS_ITS | Encounter Summary ---
Author Organization [facility] Address [address] [place] [address] Care Team Providers Care Chinese Herbalist Name Role Phone Kemal Vee MD Primary Care Provider [phone] Encounter Details Date Type Department Care Team (Late st Contact Info) Description 11/24/2022 Lab Requisition [facility] Pathology & Laboratory Medicine - [address] [address] Outr Resulting Lab, Provider Social History Tobacco [...] Salmonella PCR Negative Negative 11/25/2022 14:17 EDT [facility] Shigella/Enteroin vasive E. coli Negative Negative 11/25/2022 14:17 EDT [facility] HN LAB CAMPYLOBACTER PCR Negative Negative 11/25/2022 14:17 EDT [facility] Shiga Toxin PCR Negative Negative 14:17 EDT [facility] Feces SPECIMEN FROM RECTUM / Unknown 11/23/2022 11:00 EDT 11/24/2022 21:25 EDT Provider Outr Resulting Lab MICROBIOLOGY - GENERAL ORDERABLES [facility] [address] [place] [address] documented in this encounter Visit Diagnoses Not on filedocumented in this encounter Care Teams Chinese Herbalist Relationship Specialty Start Date End Date Kemal Vee MD [address] [place] [address] PCP - General 09/09/21 documented as of this encounter
--- OUTSIDE RECORDS SUMMARY | 2024-02-04 13:20 | XMS_ITS | Encounter Summary ---
Author Organization [facility] Address [facility] [place] [address] Care Team Providers Care Controls Operator Molded Goods Name Role Phone Lonny Davila MD Primary Care Provider [phone] Encounter Details Date Type Department Care Team (Late st Contact Info) Description 07/09/2014 2:00 PM EST Follow-Up [place] [address] Augustina Encinas MD [facility] [place] [address] HUS (hemolytic uremic syndrome) Discharge Disposition: Home [...] Salgado MD - 07/09/2014 1:59 PM EST [facility] Nephrology/Hypertension Follow Up Anum Henriquez [id number] ID: [id number] y.o. female for f/u visit for HUS. 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 Probable rt hydrosalpinx -f/u w PCP/blurb writer 6. Graves disease F/u w Endo Plan: Follow up: as needed Seen and Discussed w/ Dr. Nic Salgado MD Nephrology Fellow Pager# [phone] LONNY DAVILA MD [address] [place] [phone] documented in this encounter Miscellaneous Notes * Addendum Note - Augustina Encinas MD - 07/11/2014 1:43 PM ESTAddended by: AUGUSTINA ENCINAS on: 07/11/2014 01:43 PM Modules accepted: Level of Service documented in this encounter Plan of Treatment Not on file documented as of this encounter Visit Diagnoses Diagnosis HUS (hemolytic uremic syndrome) Hemolytic-uremic syndrome documented in this encounter Care Teams Controls Operator Molded Goods Relationship Specialty Start Date End Date Lonny Davila MD [address] [place] [address] [place] [address] PCP - General 01/13/13 12/09/23 marilyn noble Consulting Physician Gastroenterology 01/13/13 documented as of this encounter
--- OUTSIDE RECORDS SUMMARY | 2024-02-04 13:20 | XMS_ITS | Encounter Summary ---
Author Organization [facility] [place] [address] Care Team Providers Care Compliance Engineer Products Name Role Phone Kemal Vee MD Primary [...] on filedocumented in this encounter Care Teams Compliance Engineer Products Relationship Specialty Start Date End Date Kemal Vee MD [address] [place] [address] PCP - General General Internal Medicine 12/10/23 marilyn noble Consulting Physician Gastroenterology 01/13/13 documented as of this encounter
--- OUTSIDE RECORDS SUMMARY | 2024-02-04 13:20 | XMS_ITS | Encounter Summary ---
[place] [address] Care Team Providers Care Climate Change Analyst Name Role Phone Kemal Vee MD Primary Care Provider Reason for Referral * Diagnostic Test (Routine) - Pending Review Specialty Diagnoses / Procedures Referred By Phan pham Referred To Contact Cardiology Diagnoses Chest pain, unspecified type Procedures Stress Test, Exercise (Treadmill) Kemal Vee MD [address] [place] [address] [facility] [place] [address] Referral ID Status Reason Start Date Expiration Date Visits Requested Visits Authorized [id number] Pending Review Specialty Service Requested 10/16/2023 10/15/2024 1 1 Reason for Visit * Diagnostic Test (Routine) - Pending Review Specialty Diagnoses / Procedures Referred By Contjodi pham Referred To Contact Cardiology Diagnoses Chest pain, unspecified type Procedures Stress Test, Exercise (Treadmill) Kemal Vee MD [address] [place] [address] [facility] [place] [address] Referral ID Status Reason Start Date Expiration Date Visits Requested Visits Authorized [id number] Pending Review Specialty Service Requested 10/16/2023 10/15/2024 1 1 Encounter Details Date Type Department Care Team (Latest Contact Info) Description 12/10/2023 1:29 PM EDT - 12/10/2023 11:59 PM EDT Hospital Encounter [place] [address] Kemal Vee MD [address] [place] [address] Chest pain, unspecified type Discharge Disposition: Home [...] Dispensed Refills Start Date End Date OMEGA 2-DCI-KVA-FISH OIL ORALIndications:History of TTP (thrombotic thrombocytopenic purpura) [...] type documented in this encounter Care Teams Climate Change Analyst Relationship Specialty Start Date End Date Kemal Vee MD [address] [place] [address] PCP - General General Internal Medicine 12/10/23 marilyn noble Consulting Physician Gastroenterology 01/13/13 documented as of this encounter
--- OUTSIDE RECORDS SUMMARY | 2024-02-04 13:20 | XMS_ITS | Encounter Summary ---
Author Organization [facility] Address [address] [place] [address] Care Team Providers Care Forge Shop Machine Repairer Name Role Phone Kemal Vee MD Primary Care Provider Encounter Details Date Type Department Care Team (Late st Contact Info) Description 02/10/2021 Lab Requisition [facility] Pathology & [place] [address] Outr Resulting Lab, Provider Social History Tobacco [...] Lyme Ab Negative Negative 02/11/2021 11:26 EDT [facility] Blood VENOUS BLOOD / Unknown 02/09/2021 14:30 EDT 02/10/2021 16:30 EDT Provider Outr Resulting Lab IMMUNOLOGY A ND SEROLOGY ORDERABLES [facility] [address] [place] [address] documented in this encounter Visit Diagnoses Not on filedocumented in this encounter Care Teams Forge Shop Machine Repairer Relationship Specialty Start Date End Date Kemal Vee MD [address] [place] [address] PCP - General 09/09/21 documented as of this encounter
--- OUTSIDE RECORDS SUMMARY | 2024-02-04 13:20 | XMS_ITS | Referral Summary ---
Author Organization [facility] Address [address] [place] [address] Care Team Providers Care Notch Grinder Name Role Phone Kemal Vee MD Primary Care Provider Encounters Date Type Department Care Team Description 12/27/2023 Lab Requisition [facility] Pathology & Laboratory Medicine - [facility] [address] [place] [address] Outr Resulting Lab, Provider from Last 3 [...] file Plan of Treatment Not on file Procedures Procedure Name Priority Date/Time Associated Diagnosis Comments GIARDIA AND CRYPTOSPORIDIUM ANTIGENS Routine 12/26/2023 11:10 EDT FECAL BACTERIAL PATHOGENS BY PCR Routine 12/26/2023 11:10 EDT OVA/PARASITE EXAM Routine 12/26/2023 11: 10 EDT from Last 3 Months Results * FECAL BACTERIAL PATHOGENS BY PCR (12/26/2023 11:10 EDT) Salmonella PCR Negative Negative 12/27/2023 23:[address] [facility] Shigella/Enteroin vasive E. coli Negative Negative 12/27/2023 23:[address] [facility] HN LAB CAMPYLOBACTER PCR Negative Negative 12/27/2023 23:[address] [facility] Shiga Toxin PCR Negative Negative 23:[address] [facility] Feces SPECIMEN FROM RECTUM / Unknown 12/26/2023 11:10 EDT 12/27/2023 17:03 EDT Provider Outr Resulting Lab MICROBIOLOGY - GENERAL ORDERABLES Performing Organization Address City/[facility]/ZIP Co de Phone Number [facility] [address] [place], [place] [address] * GIARDIA AND CRYPTOSPORIDIUM ANTIGENS (12/26/2023 11:10 EDT) Giardia and Cryptosporidium Cryptosporidium Antigen Neg and Giardia Antigen Neg Cryptosporidium Antigen Neg and Giardia Antigen Neg 13:[address] [facility] Feces SPECIMEN FROM RECTUM / Unknown 12/26/2023 11:10 EDT 12/27/2023 17:03 EDT Provider Outr Resulting Lab MICROBIOLOGY - GENERAL ORDERABLES Performing Organization Address [facility] Co de Phone Number [facility] [address] [place] [address] * OVA/PARASITE EXAM (12/26/2023 11:10 EDT) Parasite No ova and parasites seen. 12/30/2023 14:[address] [facility] Feces SPECIMEN FROM RECTUM / Unknown 12/26/2023 11:10 EDT 12/27/2023 17:36 EDT Narrative [facility] - 12/30/2023 14:16 EDT (If Cryptosporidium, Cyclospora, or Microsporidium are suspected, specific tests must be requested.) Single negative specimen does not rule out the possibility of a parasitic infection. Provider Outr Resulting Lab MICROBIOLOGY - GENERAL ORDERABLES Performing Organization Address City/[facility]/ZIP Co de Phone Number [facility] [address] [place], [place] [phone] from Last 3 Months Care Teams Notch Grinder Relationship Specialty Start Date End Date Kemal Vee MD [address] [place] [address] PCP - General 09/09/21
--- OUTSIDE RECORDS SUMMARY | 2024-02-04 13:20 | XMS_ITS | Encounter Summary ---
Author Organization [facility] [place] [address] Care Team Providers Care Machine Maintenance Mechanic Name Role Phone Jason Davila MD Primary Care Provider [phone] Encounter Details Date Type Department Care Team [...] on filedocumented in this encounter Care Teams Machine Maintenance Mechanic Relationship Specialty Start Date End Date Jason Davila MD [address] [place] [address] [place] [address] PCP - General 01/13/13 12/09/23 marilyn noble Consulting Physician Gastroenterology 01/13/13 documented as of this encounter
--- OUTSIDE RECORDS SUMMARY | 2024-02-04 13:20 | XMS_ITS | Encounter Summary ---
Author Organization [facility] [place] [address] Care Team Providers Care Loss Prevention Guard Name Role Phone Jason Davila MD Primary Care Provider [phone] Encounter Details Date Type Department Care Team (Late st Contact Info) Description 10/16/2023 External Results Non-Invasive [place] [address] Social History Tobacco Use Types Packs/Day Years [...] on filedocumented in this encounter Care Teams Loss Prevention Guard Relationship Specialty Start Date End Date Jason Davila MD [address] [place] [address] PCP - General 01/13/13 12/09/23 marilyn noble Consulting Physician Gastroenterology 01/13/13 documented as of this encounter
--- OUTSIDE RECORDS SUMMARY | 2024-02-04 13:20 | XMS_ITS | Encounter Summary ---
Author Organization [facility] [place] [address] Care Team Providers Care Buttonholer Name Role Phone Jason Davila MD Primary Care Provider [phone] Encounter Details Date Type Department Care Team (Late st Contact Info) Description 07/13/2014 External Results Nephrology [place] [address] Social History Tobacco Use Types Packs/Day Years [...] on filedocumented in this encounter Care Teams Buttonholer Relationship Specialty Start Date End Date Jason Davila MD [address] [place] [address] [place] [address] PCP - General 01/13/13 12/09/23 marilyn noble Consulting Physician Gastroenterology 01/13/13 documented as of this encounter
--- OUTSIDE RECORDS SUMMARY | 2024-02-04 13:20 | XMS_ITS | Continuity of Care Document ---
Author Organization [facility] Address [address] [place] [address] Care Team Providers Care Cloth Bleaching Range Operator Chief Name Role Phone Kemal Chino Primary Care Physician Encounter [place] Date(s): 02/01/24 - 02/01/[address] [address] Discharge Disposition: Home or Self Care Attending Physician: Kemal Chino MD Admitting Physician: Kemal Chino MD Referring Physician: Kemal Chino MD Allergies, Adverse Reactions, Alerts Substance Criticality Severity Reaction Reaction Severity Status doxycycline Unable to assess criticality Unknown Active erythromycin Unable to assess criticality Unknown Active Immunizations Given and Recorded Vaccine [...] tobacco user T obacco Use:. Sex Female Sex Representation Female (finding) Patient Care team information Care Team Personnel Name: Kemal Chino MD Position: No Access Member Role: Informed Provider Address: [address] Care Team Related Persons Name: JENNA SERNA Name: SUNNY BOYCE Insurance Providers Guarantor name: KAYCEE SERNA Health Plan Information #: 1 P[place] PPO Member Number: [id number] Policy Number: NA Health Plan Information #: 2 Payer: [place] PPO Member Number: [id number] Policy Number: NA
--- OUTSIDE RECORDS SUMMARY | 2024-02-04 13:20 | XMS_ITS | Encounter Summary ---
Author Organization [facility] [place] [address] Care Team Providers Care Brokerage Manager Name Role Phone Jason Davila MD Primary Care Provider [phone] Encounter Details Date Type Department Care Team (Late st Contact Info) Description 08/13/2014 Telephone Hematology Oncology at [address] [address] Liz Navarro RN Social History [...] on filedocumented in this encounter Care Teams Brokerage Manager Relationship Specialty Start Date End Date Jason Davila MD [address] [place] [address] PCP - General 01/13/13 12/09/23 marilyn noble Consulting Physician Gastroenterology 01/13/13 documented as of this encounter
--- OUTSIDE RECORDS SUMMARY | 2024-02-04 13:20 | XMS_ITS | Encounter Summary ---
Author Organization [facility] [place] [address] Care Team Providers Care Line Clearance Foreman Name Role Phone Jason Davila MD Primary Care Provider [phone] Encounter Details Date Type Department Care Team (Late st Contact Info) Description 05/22/2013 Orders Only [place] [address] Cristal Hernandez, RN DEPT OF GASTROENTEROLOGY Elevated [...] chemistry documented in this encounter Care Teams Line Clearance Foreman Relationship Specialty Start Date End Date Jason Davila MD [address] [place] [address] [place] [address] PCP - General 01/13/13 12/09/23 marilyn noble Consulting Physician Gastroenterology 01/13/13 documented as of this encounter
--- OUTSIDE RECORDS SUMMARY | 2024-02-04 13:20 | XMS_ITS | Encounter Summary ---
Author Organization [facility] Address [address] [place] [address] Care Team Providers Care Head Athletic Trainer Name Role Phone Kemal Vee MD Primary Care Provider Encounter Details Date Type Department Care Team (Late st Contact Info) Description 02/13/2023 Lab Requisition [facility] Pathology & Laboratory Medicine - [facility] [address] [place] [address] Dany Burns MD [address] [place] [address] [place] [address] Encounter for other general examination [...] management options, if applicable. 02/15/2023 10:45 EDT [facility] Final Diagnosis A. LEFT COLON, BIOPSY: - Polypoid colonic mucosa with reactive changes and lymphoid aggregate. 02/15/2023 10:45 EDT [facility] Attestation By the signature below, the attending physician certifies that they have 1) personally conducted a gross and/or microscopic examination of the described specimen(s), and/or personally interpreted the results of laboratory testing of the described specimen(s), and 2) personally rendered or confirmed the above diagnosis. 02/15/2023 10:45 EDT [facility] at 1044 Clinical History Rectal bleeding, L colon polyp 02/15/2023 10:45 EDT [facility] Gross Description A. Received in formalin labelled with proper patient identification (initials I, S) and A. Left colon polyp is a single mann-brown tissue (0.3 x 0.2 x 0.1 cm). Submitted intact in A1. Ayla House 02/14/2023 9:44 02/15/2023 10:45 EDT [facility] Performing Lab [facility] 02/15/2023 10:45 EDT [facility] Scanned Images 02/15/2023 10:45 T [facility] Tissue LEFT COLON STRUCTURE / Unknown 02/13/2023 13:30 EDT 02/14/2023 8:46 EDT Dany Burns MD PATHOLOGY ORDERABLES [facility] [address] [place] [address] documented in this encounter Visit Diagnoses Diagnosis Encounter for other general examination documented in this encounter Care Teams Head Athletic Trainer Relationship Specialty Start Date End Date Kemal Vee MD [address] [place] [address] PCP - General 09/09/21 documented as of this encounter
--- OUTSIDE RECORDS SUMMARY | 2024-02-04 13:20 | XMS_ITS | Encounter Summary ---
Author Organization [facility] Address [facility] [place] [address] Care Team Providers Care Vehicle Assembler Name Role Phone Lonny Davila MD Primary Care Provider [phone] Reason for Visit * Reason Comments Follow-up Encounter Details Date Type Department Care Team (Late st Contact Info) Description 04/15/2014 9:00 AM EST Follow-Up Hematology Oncology at [address] [phone] Fabi Romero MD [facility] DR HEMATOLOGY [place] [address] History of TTP (thrombotic thrombocytopenic purpura) (Primary [...] in this encounter Progress Notes * Fabi Romeor MD - 04/15/2014 9:36 AM [place] [address] FOLLOW-UP PATIENT EVALUATION PROBLEM LIST: Patient Active [...] MD Medication Sig Dispense Refill ??? OMEGA [id number] OIL ORAL Take by mouth. ??? GLUC/CHND/OM3/DHA/EPA/FISH/STR [...] 2012, after several days of hospitalization at [facility]. She initially presented there with bloody diarrhea and abdominal distention. During her course there, she developed a drop in her hemoglobin and platelet count and slowly developed mild renal insufficiency. At that point, TTP was suspected, and she was transferred to [facility]. 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 She was hospitalized at [facility] from December 13 to December 27, [...] on metoprolol. Her last EF was in [place] in Spring 2013 and she statesthat her [...] Check labs (cbc, cmp, ldh, retic) [place] later this week and if normal then [...] organs documented in this encounter Care Teams Vehicle Assembler Relationship Specialty Start Date End Date Lonny Davila MD [address] [place] [address] [place] [address] PCP - General 01/13/13 12/09/23 marilyn noble Consulting Physician Gastroenterology 01/13/13 documented as of this encounter
--- OUTSIDE RECORDS SUMMARY | 2024-02-04 13:21 | XMS_ITS | Encounter Summary ---
Author Organization [facility] Address [facility] [place] [address] Care Team Providers Care Molder Trimmer Name Role Phone Ofelia Costello APRN Primary Care Provider [phone] Reason for Visit * Reason Comments Congestive Heart Failure Encounter Details Date Type Department Care Team (Late st Contact Info) Description 01/10/2013 3:30 PM EDT Office Visit [address] [address] Martir Sevilla MD [facility] [place] [address] CHF (congestive heart failure) (Primary Dx) Social [...] unspecified documented in this encounter Care Teams Molder Trimmer Relationship Specialty Start Date End Date Ofelia Costello APRN [address] [address] PCP - General 12/13/12 01/12/13 documented as of this encounter
--- OUTSIDE RECORDS SUMMARY | 2024-02-04 13:21 | XMS_ITS | Encounter Summary ---
Author Organization [facility] Address [facility] [place] [address] Care Team Providers Care Research Methodologist Name Role Phone Jason Davila MD Primary Care Provider [phone] Encounter Details Date Type Department Care Team (Latest Contact Info) Description 01/14/2013 10:05 AM EDT Office Visit [place] [address] Minor Kebede MD [facility] [place] [address] H/O Graves' disease (Primary Dx); Graves' ophthalmopathy [...] Thyroid peroxidase antibody (03/21/2013 10:02 AM EDT) Thyroperoxidase Ab 72(H) <=34 IU/mL CERELIO PINEDAIUM Blood specimen (specimen) 03/21/2013 10:02 AM EDT 03/21/2013 12:04 PM EDT Narrative Resulting Agency Comment Spec In Lab Clovis Clark MD IMMUNOLOGY ORDERA BLES [facility] MIRIAMIUM * T4, free (03/21/2013 10:02 AM EDT) Free T4 1.23 0.90 - 1.60 ng/dL CERELIO NOE Blood specimen (specimen) 03/21/2013 10:02 AM EDT 03/21/2013 10:09 AM EDT Narrative Resulting Agency Comment Spec In Lab Clovis Clark MD CHEMISTRY ORDERAB LES [facility] * T3 (03/21/2013 10:02 AM EDT) T3 Total 96 75 - 170 ng/dL BAR PINEDAIUM Blood specimen (specimen) 03/21/2013 10:02 AM EDT 03/21/2013 10:09 AM EDT Narrative Resulting Agency Comment Spec In Lab Clovis Clark MD CHEMISTRY ORDERAB LES BAR [facility] * TSH (03/21/2013 10:02 AM EDT) Thyroid Stimulating Hormone 1.63 0.27 - 4.20 mcIU/mL CERELIO PINEDAIUM Blood specimen (specimen) 03/21/2013 10:02 AM EDT 03/21/2013 10:09 AM EDT Narrative Resulting Agency Comment Spec In Lab Clovis Clark MD CHEMISTRY ORDERAB LES [facility] documented in this encounter Visit Diagnoses Diagnosis H/O Graves' disease- Primary Personal history of other endocrine, metabolic, and immunity disorders 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
--- OUTSIDE RECORDS SUMMARY | 2024-02-04 13:21 | XMS_ITS | Encounter Summary ---
Author Organization [facility] Address [facility] [place] [address] Care Team Providers Care Digital Account Director Name Role Phone Jason Davila MD Primary Care Provider [phone] Encounter Details Date Type Department Care Team (Late st Contact Info) Description 02/12/2013 Telephone [place] [address] Susana Seals MD [facility] DR [place] [address] Social History Tobacco Use Types Packs/Day Years [...] on filedocumented in this encounter Care Teams Digital Account Director Relationship Specialty Start Date End Date Jason Davila MD [address] [place] [address] PCP - General 01/13/13 12/09/23 marilyn noble Consulting Physician Gastroenterology 01/13/13 documented as of this encounter
--- OUTSIDE RECORDS SUMMARY | 2024-02-04 13:21 | XMS_ITS | Encounter Summary ---
Author Organization [facility] Address [facility] [place] [address] Care Team Providers Care Librarian Assistant Name Role Phone Jason Davila MD Primary Care Provider [phone] Encounter Details Date Type Department Care Team (Late st Contact Info) Description 01/13/2013 4:10 PM EDT Follow-Up Nephrology [place] [address] Shiv Salgado MD [facility] [place] [address] Osmany Lucero MD [facility] [place] [address] DELVIS (acute kidney injury) (Primary Dx) Discharge [...] unspecified documented in this encounter Care Teams Librarian Assistant Relationship Specialty Start Date End Date Jason Davila MD [address] [place] [address] [place] [address] PCP - General 01/13/13 12/09/23 marilyn noble Consulting Physician Gastroenterology 01/13/13 documented as of this encounter
--- OUTSIDE RECORDS SUMMARY | 2024-02-04 13:21 | XMS_ITS | Encounter Summary ---
Author Organization [facility] Address [facility] [place] [address] Care Team Providers Care Calendar Control Clerk Blood Bank Name Role Phone Lonny Davila MD Primary Care Provider [phone] Reason for Referral * Consultation (Routine) - Closed Specialty Diagnoses / Procedures Referred By Phan pham Referred To Contact Gastroenterology Diagnoses Abdominal pain Brian Griffin MD [facility] [place] [address] [facility] [address] [place] [address] Referral ID Status Reason Start Date Expiration Date V isits Requested Visits Authorized [id number] Closed Consult, Test & Treat 01/15/2013 07/14/2013 1 1 Reason for Visit * Reason Comments Acute Kidney Injury Encounter Details Date Type Department Care Team (Latest Contact Info) Description 01/13/2013 3:30 PM EDT Follow-Up [place] [address] Brian Griffin MD [facility] [place] [address] Shiv Salgado MD [facility] [place] [address] Abdominal pain (Primary Dx); History of TTP [...] Salgado MD - 01/13/2013 4:24 PM EDT [facility] Nephrology/Hypertension Follow Up Anum Henriquez [id number] ID: [id number] y.o. female for f/u visit for TTP. 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 01/03/13 01/13/13 Flynn Frausto MD Ryxwszbyblw-Djnwaqvrm-Ugx C-Mn 500-400 mg Cap 12/03/09 01/13/13 Allergies [...] bleed 5. Probable rt hydrosalpinx -f/u w PCP/physician gynecologist 6. Graves disease F/u w Endo on 01/14 Plan: Follow up: 1 month Seen and Discussed w/ Dr. Mora Salgado MD Nephrology Fellow Pager# [phone] LONNY DAVILA MD [address] [place] [address] [place] [address] documented in this encounter Miscellaneous Notes * [...] unspecified documented in this encounter Care Teams Calendar Control Clerk Blood Bank Relationship Specialty Start Date End Date Lonny Davila MD [address] [place] [address] PCP - General 01/13/13 12/09/23 marilyn noble Consulting Physician Gastroenterology 01/13/13 documented as of this encounter
--- OUTSIDE RECORDS SUMMARY | 2024-02-04 13:21 | XMS_ITS | Encounter Summary ---
Author Organization [facility] Address [facility] [place] [address] Care Team Providers Care Hardware Press Operator Name Role Phone Jason Davila MD Primary Care Provider [phone] Reason for Visit * Reason Comments Congestive Heart Failure Encounter Details Date Type Department Care Team (Late st Contact Info) Description 01/28/2013 11:15 AM EDT Office Visit [address] [address] Martir Sevilla MD [facility] [place] [address] CHF (congestive heart failure) (Primary Dx) Social [...] - 01/31/2013 12:09 PM EDT * Martir Sevilla - 01/28/2013 12:43 PM EDT Scanned note documented in this encounter Plan of Treatment Not on file documented as of this encounter Visit Diagnoses Diagnosis CHF (congestive heart failure)- Primary Congestive heart failure, unspecified documented in this encounter Care Teams Hardware Press Operator Relationship Specialty Start Date End Date Jason Davila MD [address] [place] [address] PCP - General 01/13/13 12/09/23 marilyn noble Consulting Physician Gastroenterology 01/13/13 documented as of this encounter
--- OUTSIDE RECORDS SUMMARY | 2024-02-04 13:21 | XMS_ITS | Encounter Summary ---
Author Organization [facility] Address [facility] [place] [address] Care Team Providers Care Aix System Administrator Name Role Phone Bakari Warner APRN Primary Care Provider [phone] Encounter Details Date Type Department Care Team (Late st Contact Info) Description 01/08/2013 12:00 PM EDT Follow-Up Hematology Oncology at [address] [address] Fabi Romero MD [facility] [address] [place] [address] TTP (thrombotic thrombocytopenic purpura) (Primary Dx); MRSA [...] - 01/08/2013 12:36 PM EDT [facility] [place] [address] FOLLOW-UP PATIENT EVALUATION PROBLEM LIST: Patient Active [...] by mouth daily. 30 capsule 11 ??? Dtfmbhniwnz-Gysrqxwut-Kke C-Mn 500-400 mg Cap ??? CALCIUM ORAL [...] Latest Range: 110-220 unit/L 198 01/07/13 from [facility] Wbc 5.8 hgb 9.9 plt 281k [...] 2012, after several days of hospitalization at [facility]. She initially presented there with bloody diarrhea and abdominal distention. During her course there, she developed a drop in her hemoglobin and platelet count and slowly developed mild renal insufficiency. At that point, TTP was suspected, and she was transferred to [facility]. 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 She was hospitalized at [facility] from December 13 to December 27, [...] I will try to get this at [facility] on either 01/13/2013 or 01/14/2013 to coincide [...] total time: 60 time in counsellin Copy BAKARI WARNER APRN documented in this encounter Procedure [...] directives, such as a Durable Power of Pond Tender for Health Care. DETERMINATION OF CAPACITY The basis for decisional capacity entails all of the following criteria. The patient, Anum Henriuqez, must be able (in a general way) [...] to speak for him/herself. Name: Liu Henriquez ([phone]) Relationship to patient: Alternate decision maker: Name: Venita Diony ([phone]) and Dewey Montesabelle ([phone]) Relationship to patient: daughter and son III. OPTIONAL EXPRESSION OF PREFERENCES FOR SPECIFIC LIFE-PROLONGING TREATMENTS Not reviewed at this time. IV: OTHERS PRESENT - None present V. OTHER COMMENTS Patient has advanced directives on file at [facility] - patient agreeable to bringing copies of advanced directives to [facility] for scanning into eD-H. documented in [...] intravenous contrast dated December 10, 2012 from [facility]. Technique Axial images of the abdomen and [...] F/U to last CT - downloaded to [facility] Reassess colon thickening Comparison CT scan of the abdomen and pelvis with intravenous contrast dated December from [facility]. Technique Axial images of the abdomen and [...] heart documented in this encounter Care Teams Aix System Administrator Relationship Specialty Start Date End Date Bakari Warner APRN [facility] [address] [place] [address] PCP - General 12/13/12 01/12/13 documented as of this encounter
--- OUTSIDE RECORDS SUMMARY | 2024-02-04 13:21 | XMS_ITS | Encounter Summary ---
Author Organization [facility] Address [facility] [place] [address] Care Team Providers Care Hospital Admissions Officer Name Role Phone Lonny Davila MD Primary Care Provider [phone] Reason for Visit * Reason Comments Follow-up Encounter Details Date Type Department Care Team (Late st Contact Info) Description 01/22/2013 3:00 PM EDT Follow-Up Hematology Oncology at [address] [address] Fabi Romero MD [facility] DR [place] [address] Acquired TTP (Primary Dx) Discharge Disposition: Home [...] - 01/22/2013 3:44 PM EDT Hematology [place] [address] FOLLOW-UP PATIENT EVALUATION PROBLEM LIST: Patient Active [...] Range: 110-220 unit/L 198 01/07/13 from [facility] 01/22/13 Wbc 5.8 3.4 hgb 9.9 10.2 [...] was suspected, and she was [place] [facility] 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 She was hospitalized at [facility] from December 13 to December 27, 2012. [...] f/u with US and will refer to [facility] if necessary. 7. MRSA bacteremia: She completed [...] microangiopathy documented in this encounter Care Teams Hospital Admissions Officer Relationship Specialty Start Date End Date Lonny Davila MD [address] [place] [address] [place] [address] PCP - General 01/13/13 12/09/23 marilyn noble Consulting Physician Gastroenterology 01/13/13 documented as of this encounter
--- OUTSIDE RECORDS SUMMARY | 2024-02-04 13:21 | XMS_ITS | Encounter Summary ---
Author Organization [facility] Address [facility] [place] [address] Care Team Providers Care Correspondence Clerk Name Role Phone Ofelia Costello APRN Primary Care Provider [phone] Encounter Details Date Type Department Care Team (Late st Contact Info) Description 01/06/2013 Orders Only [place] [address] Clovis Varner MD [facility] [place] [address] Hyperthyroidism (Primary Dx) Social History Tobacco Use [...] Results * T3 (02/05/2013 1:09 PM EDT) T3 Total 102 75 - 170 ng/dL [facility] Blood specimen (specimen) 02/05/2013 1:09 PM EDT 02/05/2013 1:12 PM EDT Narrative Resulting Agency Comment Spec In Lab Clovis Varner MD CHEMISTRY ORDERAB LES Performing Organization Address [facility] Co de Phone Number [facility] * T4, free (02/05/2013 1:09 PM EDT) Free T4 1.11 0.90 - 1.60 ng/dL [facility] Blood specimen (specimen) 02/05/2013 1:09 PM EDT 02/05/2013 1:12 PM EDT Narrative Resulting Agency Comment Spec In Lab Clovis Varner MD CHEMISTRY ORDERAB LES Performing Organization Address [facility] Co de Phone Number [facility] * TSH (02/05/2013 1:09 PM EDT) Thyroid Stimulating Hormone 1.75 0.27 - 4.20 mcIU/mL [facility] Blood specimen (specimen) 02/05/2013 1:09 PM EDT 02/05/2013 1:12 PM EDT Narrative Resulting Agency Comment Spec In Lab Clovis Varner MD CHEMISTRY ORDERAB LES Performing Organization Address [facility] Co de Phone Number [facility] documented in this encounter Visit Diagnoses Diagnosis Hyperthyroidism- Primary Thyrotoxicosis without mention of goiter or other cause, without mention of thyrotoxic crisis or storm documented in this encounter Care Teams Correspondence Clerk Relationship Specialty Start Date End Date Ofelia Costello APRN [address] [address] PCP - General 12/13/12 01/12/13 documented as of this encounter
--- OUTSIDE RECORDS SUMMARY | 2024-02-04 13:21 | XMS_ITS | Encounter Summary ---
Author Organization [facility] Address [facility] [place] [address] Care Team Providers Care Printing Screen Assembler Name Role Phone Jason Davila MD Primary Care Provider [phone] Reason for Visit * Reason Comments Congestive Heart Failure Encounter Details Date Type Department Care Team (Late st Contact Info) Description 05/06/2013 9:30 AM EST Office Visit [address] [address] Martir Sevilla MD [facility] [place] [address] CHF (congestive heart failure) (Primary Dx) Social [...] unspecified documented in this encounter Care Teams Printing Screen Assembler Relationship Specialty Start Date End Date Jason Davila MD [address] [place] [address] [place] [address] PCP - General 01/13/13 12/09/23 marilyn noble Consulting Physician Gastroenterology 01/13/13 documented as of this encounter
--- OUTSIDE RECORDS SUMMARY | 2024-02-04 13:21 | XMS_ITS | Encounter Summary ---
Author Organization [facility] Address [facility] [place] [address] Care Team Providers Care Body Mechanic Name Role Phone Jason Davila MD Primary Care Provider [phone] Reason for Visit * Reason Comments Graves' Disease Encounter Details Date Type Department Care Team (Late st Contact Info) Description 01/14/2013 10:30 AM EDT Office Visit [place] [address] Clovis Clark MD [facility] [place] [address] Minor Kebede MD [facility] [place] [address] Graves disease (Primary Dx) Discharge Disposition: Home [...] storm documented in this encounter Care Teams Body Mechanic Relationship Specialty Start Date End Date Jason Davila MD [address] [place] [address] [place] [address] PCP - General 01/13/13 12/09/23 marilyn noble Consulting Physician Gastroenterology 01/13/13 documented as of this encounter
--- OUTSIDE RECORDS SUMMARY | 2024-02-04 13:21 | XMS_ITS | Encounter Summary ---
Author Organization [facility] Address [facility] [place] [address] Care Team Providers Care Principal Network Architect Name Role Phone Jason Davila MD Primary Care Provider [phone] Encounter Details Date Type Department Care Team (Late st Contact Info) Description 02/05/2013 6:10 PM EDT Anesthesia Event [place] [address] Eli, Beck Lo MD [facility] [place] [address] Flynn French MD [facility] [place] [address] Anesthesia Record Procedure Summary Procedure Name Responsible Anesthesiologist Anesthesia Start Time Anesthesia Stop Time UPPER EUS- ENDOSCOPIC ULTRASOUND (WRVU 3.47) (Trunk) Eli, Beck Lo MD 02/05/13 1810 02/05/13 1834 Events Date Time Event Comment 02/05/2013 1739 1809 AN Verify 1810 Start 1813 An Start Data 181 Anesthesia Ready 1834 an stop data 1834 [...] full Cardiovascular Assessment: Pulmonary Assessment: Dental [facility]: [facility] Assessment: Anesthesia Plan: ASA 3 MAC, with a(n) intravenous induction Region - Other Informed Consent: Anesthetic plan and risks discussed with patient. Plan discussed with DOOR CORE ASSEMBLER. [facility] Assessment: documented in this encounter Plan of [...] mg documented in this encounter Care Teams Principal Network Architect Relationship Specialty Start Date End Date Jason Davila MD [address] [place] [address] [place] [address] PCP - General 01/13/13 12/09/23 marilyn noble Consulting Physician Gastroenterology 01/13/13 documented as of this encounter
--- OUTSIDE RECORDS SUMMARY | 2024-02-04 13:21 | XMS_ITS | Encounter Summary ---
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) Social [...] Results * CK (01/13/2013 12:10 PM EDT) Creatine Kinase 53 0 - 160 unit/L [facility] Blood specimen (specimen) 01/13/2013 12:10 PM EDT 01/13/2013 12:15 PM EDT Narrative Resulting Agency Comment Spec In Lab Glen Rodriguez MD CHEMISTRY ORDERABLES [facility]ILLEN[facility] * (ABNORMAL) Comprehensive metabolic panel (non-fasting) (01/13/2013 12:10 PM EDT) [facility] Glucose 100 60 - 199 mg/dL CERNER MILLENNIUM Comment:Diabetes: >=200 mg/d L plus symptoms Blood Urea Nitrogen 31(H) 8 - 18 mg/dL CERNER MILLENNIUM Creatinine 1.85(H) 0.70 - 1.20 mg/dL CERNER MILLENNIUM Comment: Please note that the pediatric reference intervals supplied above were not validated at [facility]. Results from pediatric patients should be interpreted [...] 100 98 - 107 mmol/L CERNER MILLENNIUM Carbon Dioxide 24 22 - 31 mmol/L CERNER MILLENNIUM Anion Gap 12 5 - 15 mmol/L CERNER MILLENNIUM Calcium 10.2 8.5 - 10.5 mg/dL [facility]ERN[facility] MILLENNIUM Protein, Total 8.5(H) 6.4 - 8.3 gm/dL CERNER MILLENNIUM Albumin 4.7 3.2 - 5.2 gm/dL CERNER MILLENNIUM Aspartate Aminotransferase 14 0 - 30 unit/L CERNER MILLENNIUM Alanine Aminotransferase 12 0 - 30 unit/L CERNER MILLENNIUM Alkaline Phosphatase 58 40 - 104 unit/L CERNER MILLENNIUM Bilirubin, Total 0.2 0.2 - 1.3 mg/dL CERNER MILLENNIUM Bilirubin, Direct 0.1 0.0 - 0.3 mg/dL CERNER MILLENNIUM Est Glomerular Filtration Rate 28(L) >=60 CERNER MILLENNIUM Comment: This estimated [...] In Lab Glen Rodriguez MD CHEMISTRY ORDERABLES [facility] * (ABNORMAL) CBC (with Diff) (01/13/2013 12:10 PM EDT) White Blood Cell 5.7 4.0 - 10.0 x10(3)/mc L CERNER MILLENNIUM Red Blood Cell 3.51(L) 3.93 - 5.22 x10(6)/mc L CERNER MILLENNIUM Hemoglobin 10.3(L) 11.2 - 15.7 gm/dL CERNER MILLENNIUM Hematocrit 32.6(L) 34.0 - 45.0 % CERNER MILLENNIUM Mean Cell Volume 92.9 79.0 - 94.0 fL CERNER MILLENNIUM Mean Cell Hemoglobin 29.3 26.6 - 32.2 pg CERNER MILLENNIUM Mean Cell Hemoglobin Concentration 31.6(L) 32.0 - 36.5 gm/dL CERNER MILLENNIUM Platelet 285 145 - 370 x10(3)/mc L CERNER MILLENNIUM RDW Standard Deviation 50.9(H) 35.0 - 46.0 fL CERNER MILLENNIUM RDW coefficient of variation 15.0(H) 10.9 - 14.4 % CERNER MILLENNIUM Mean Platelet Volume 10.3 9.0 - 12.0 fL CERN[facility] MILLENNIUM Blood specimen (specimen) 01/13/2013 12:10 PM EDT 01/13/2013 12:15 PM EDT Narrative Resulting Agency Comment Spec In Lab Glen Rodriguez MD HEMATOLOGY ORDERABLE S [facility] documented in this encounter Visit Diagnoses Diagnosis USP current use of antibiotics- Primary Encounter for long-term (current) use of antibiotics documented in this encounter Care Teams Varying Exceptionalities Teacher Relationship Specialty Start Date End Date Jason Davila MD [address] [place] [address] PCP - General 01/13/13 12/09/23 marilyn noble Consulting Physician Gastroenterology 01/13/13 documented as of this encounter
--- OUTSIDE RECORDS SUMMARY | 2024-02-04 13:21 | XMS_ITS | Encounter Summary ---
Author Organization [facility] Address [facility] [place] [address] Care Team Providers Care Pierogi Maker Name Role Phone Jason Davila MD Primary Care Provider [phone] Reason for Visit * Reason Comments Thyroid Problem Encounter Details Date Type Department Care Team (Late st Contact Info) Description 03/21/2013 11:00 AM EDT Office [place] [address] Minor Kebede MD [facility] [place] [address] Graves' disease (Primary Dx); H/O Graves' disease [...] AM EDT) Thyroperoxidase Ab 72(H) <=34 IU/mL [facility] Blood specimen (specimen) 03/21/2013 10:02 AM EDT 03/21/2013 12:04 PM EDT Narrative Resulting Agency Comment Spec In Lab Clovis Varner MD IMMUNOLOGY ORDERA BLES [facility] * T4, free (03/21/2013 10:02 AM EDT) Free T4 1.23 0.90 - 1.60 ng/dL [facility] Blood specimen (specimen) 03/21/2013 10:02 AM EDT 03/21/2013 10:09 AM EDT Narrative Resulting Agency Comment Spec In Lab Clovis Varner MD CHEMISTRY ORDERAB LES Performing Organization Address City/[facility]/ZIP Co de Phone Number [facility] * T3 (03/21/2013 10:02 AM EDT) T3 Total 96 75 - 170 ng/dL [facility] Blood specimen (specimen) 03/21/2013 10:02 AM EDT 03/21/2013 10:09 AM EDT Narrative Resulting Agency Comment Spec In Lab Clovis Varner MD CHEMISTRY ORDERAB LES [facility] * TSH (03/21/2013 10:02 AM EDT) Thyroid Stimulating Hormone 1.63 0.27 - 4.20 mcIU/mL [facility] [...] disorders documented in this encounter Care Teams Pierogi Maker Relationship Specialty Start Date End Date Jason Davila MD [address] [place] [address] [place] [address] PCP - General 01/13/13 12/09/23 marilyn noble Consulting Physician Gastroenterology 01/13/13 documented as of this encounter
--- OUTSIDE RECORDS SUMMARY | 2024-02-04 13:21 | XMS_ITS | Encounter Summary ---
Author Organization [facility] Address [facility] [place] [address] Care Team Providers Care Web Assistant Name Role Phone Jason Davila MD Primary Care Provider [phone] Encounter Details Date Type Department Care Team (Latest Contact Info) Description 02/05/2013 1:01 PM EDT - 02/05/2013 11:59 PM EDT Hospital [place] [address] Clovis Varner MD [facility] [place] [address] Hyperthyroidism Discharge Disposition: Home Social History Tobacco [...] T3 Total 102 75 - 170 ng/dL [facility] Blood specimen (specimen) 02/05/2013 1:09 PM EDT 02/05/2013 1:12 PM EDT Narrative Resulting Agency Comment Spec In Lab Clovis Varner MD CHEMISTRY ORDERAB LES [facility] * T4, free (02/05/2013 1:09 PM EDT) Free T4 1.11 0.90 - 1.60 ng/dL [facility] Blood specimen (specimen) 02/05/2013 1:09 PM EDT 02/05/2013 1:12 PM EDT Narrative Resulting Agency Comment Spec In Lab Clovis Varner MD CHEMISTRY ORDERAB LES Performing Organization Address City/[facility] Co de Phone Number [facility] NOE * TSH (02/05/2013 1:09 PM EDT) Thyroid Stimulating Hormone 1.75 0.27 - 4.20 mcIU/mL [facility] Blood specimen (specimen) 02/05/2013 1:09 PM EDT 02/05/2013 1:12 PM EDT Narrative Resulting Agency Comment Spec In Lab Clovis Varner MD CHEMISTRY ORDERAB LES Performing Organization Address [facility] Co de Phone Number BAR NOE documented in this encounter Visit Diagnoses Diagnosis Hyperthyroidism Thyrotoxicosis without mention of goiter or other cause, without mention of thyrotoxic crisis or storm documented in this encounter Care Teams Web Assistant Relationship Specialty Start Date End Date Jason Davila MD [address] [place] [address] [place] [address] PCP - General 01/13/13 12/09/23 marilyn noble Consulting Physician Gastroenterology 01/13/13 documented as of this encounter
--- OUTSIDE RECORDS SUMMARY | 2024-02-04 13:21 | XMS_ITS | Encounter Summary ---
Author Organization [facility] [place] [address] Care Team Providers Care Analog Design Engineer Name Role Phone Jason Davila MD Primary Care Provider [phone] Encounter Details Date Type Department Care Team (Late st Contact Info) Description 02/05/2013 Telephone [place] [id number] Drea Britton, RN Social History Tobacco Use [...] on filedocumented in this encounter Care Teams Analog Design Engineer Relationship Specialty Start Date End Date Jason Davila MD [address] [place] [address] [place] [address] PCP - General 01/13/13 12/09/23 marilyn noble Consulting Physician Gastroenterology 01/13/13 documented as of this encounter
--- OUTSIDE RECORDS SUMMARY | 2024-02-04 13:21 | XMS_ITS | Encounter Summary ---
Author Organization [facility] Address [facility] [place] [address] Care Team Providers Care Socially Responsible Investment Adviser Name Role Phone Jason Davila MD Primary Care Provider [phone] Reason for Visit * Reason Comments GI Problem Epigastric pain Encounter Details Date Type Department Care Team (Latest Contact Info) Description 05/22/2013 4:00 PM EST [place] [address] Susana Seals MD [facility] [place] [address] Epigastric pain (Primary Dx); TTP (thrombotic thrombocytopenic [...] to the sigmoid colon admitted for TTP-[facility] 12/2012 -EGD: 12/2012:Gastric mucosal abnormality in [...] that she has autoimmune pancreatitis which requires ([place] HISORt criteriafor diagnosis). 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
--- OUTSIDE RECORDS SUMMARY | 2024-02-04 13:21 | XMS_ITS | Encounter Summary ---
Author Organization [facility] Address [facility] [place] [address] Care Team Providers Care Cosmetic Sales Advisor Name Role Phone Lonny Davila MD Primary Care Provider [phone] Reason for Visit * Reason Comments Acute Kidney Injury Encounter Details Date Type Department Care Team (Late st Contact Info) Description 02/20/2013 4:00 PM EDT Follow-Up [place] [address] Shiv Salgado MD [facility] [place] [address] DELVIS (acute kidney injury) (Primary Dx); Anemia; [...] Salgado MD - 02/21/2013 10:55 AM EDT [facility] Nephrology/Hypertension Follow Up Anum Henriquez [id number] ID: [id number] y.o. female for f/u visit for TTP. 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 01/03/13 01/13/13 Flynn Frausto MD Xnysrsgtxvr-Newtcpyyg-Vhx C-Mn 500-400 mg Cap 12/03/09 01/13/13 Allergies [...] bleed 5. Probable rt hydrosalpinx -f/u w PCP/pewter finisher 6. Graves disease F/u w Endo Plan: Follow up: 3 month Seen and Discussed w/ Dr. Nic Salgado MD Nephrology Fellow Pager# [phone] LONNY DAVILA MD [address] [place] [address] [place] [id number] documented in this encounter Miscellaneous Notes * [...] storm documented in this encounter Care Teams Cosmetic Sales Advisor Relationship Specialty Start Date End Date Lonny Davila MD [address] [place] [address] [address] [place] [address] PCP - General 01/13/13 12/09/23 marilyn noble Consulting Physician Gastroenterology 01/13/13 documented as of this encounter
--- OUTSIDE RECORDS SUMMARY | 2024-02-04 13:21 | XMS_ITS | Encounter Summary ---
Author Organization [facility] Address [facility] [place] [address] Care Team Providers Care Rn Team Leader Name Role Phone Jason Davila MD Primary Care Provider [phone] Encounter Details Date Type Department Care Team (Late st Contact Info) Description 05/22/2013 12:35 PM EST - 05/22/2013 11:59 PM EST [place] [address] Fabi Romero MD [facility] DR [place] [address] Discharge Disposition: Home Social History Tobacco Use [...] filedocumented in this encounter Care Teams Rn Team Leader Relationship Specialty Start Date End Date Jason Davila MD [address] [place] [address] [place] [address] PCP - General 01/13/13 12/09/23 marilyn noble Consulting Physician Gastroenterology 01/13/13 documented as of this encounter
--- OUTSIDE RECORDS SUMMARY | 2024-02-04 13:21 | XMS_ITS | Encounter Summary ---
Author Organization [facility] Address [facility] [place] [address] Care Team Providers Care Paint Stripper Name Role Phone Jason Davila MD Primary Care Provider [phone] Encounter Details Date Type Department Care Team (Latest Contact Info) Description 01/13/2013 11:50 AM EDT - 01/13/2013 11:59 PM EDT Hospital [place] [address] Tyson Connolly MD [facility] [place] [address] Graves disease Discharge Disposition: Home Social History [...] Free Thyroxine Index (01/13/2013 12:10 PM EDT) Free Thyroxine Index 4.2(L) 4.5 - 9.5 mcg/dL [facility] Comment: Females: 5. 5-10.5 mcg/dL Blood specimen (specimen) 01/13/2013 12:10 PM EDT 01/13/2013 12:15 PM EDT Narrative Resulting Agency Comment Spec In Lab Tyson Connolly MD CHEMISTRY ORDERABLES Performing Organization Address [facility] Co de Phone Number [facility] * (ABNORMAL) T4 (01/13/2013 12:10 PM EDT) [facility] T4 Total 4.9(L) 5.1 - 10.8 mcg/dL [facility] Comment: Reference Range: Cord Blood: ??6.9-14.4 mcg/dL Females: ??7.2-14.2 mcg/dL Pediatric ranges: ??Interpret with caution-ranges have not been verified Blood specimen (specimen) 01/13/2013 12:10 PM EDT 01/13/2013 12:15 PM EDT Narrative Resulting Agency Comment Spec In Lab Tyson Connolly MD CHEMISTRY ORDERABLES Performing Organization Address [facility] Co de Phone Number [facility] * T Uptake (01/13/2013 12:10 PM EDT) Pathologist [facility] T Uptake 1.16 0.80 - 1.30 ratio [facility] Comment: Tup assay is directly proportional to Thyroid binding protein concentration, thus FT4 Index = TT4/Tup. Cord Blood Reference Range: ??0.74-1.28. Blood specimen (specimen) 01/13/2013 12:10 PM EDT 01/13/2013 12:15 PM EDT Narrative Resulting Agency Comment Spec In Lab Tyson Connolly MD CHEMISTRY ORDERABLES Performing Organization Address City/[facility]/ZIP Co de Phone Number [facility] * (ABNORMAL) T3 (01/13/2013 12:10 PM EDT) T3 Total 62(L) 75 - 170 ng/dL [facility] Blood specimen (specimen) 01/13/2013 12:10 PM EDT 01/13/2013 12:15 PM EDT Narrative Resulting Agency Comment Spec In Lab Tyson Connolly MD CHEMISTRY ORDERABLES Performing Organization Address City/[facility] Co de Phone Number [facility] * T4, free (01/13/2013 12:10 PM EDT) Free T4 0.96 0.90 - 1.60 ng/dL [facility] Blood specimen (specimen) 01/13/2013 12:10 PM EDT 01/13/2013 12:15 PM EDT Narrative Resulting Agency Comment Spec In Lab Tyson Connolly MD CHEMISTRY ORDERABLES Performing Organization Address [facility] Co de Phone Number [facility] * TSH (01/13/2013 12:10 PM EDT) Thyroid Stimulating Hormone 0.63 0.27 - 4.20 mcIU/mL [facility] Blood specimen (specimen) 01/13/2013 12:10 PM EDT 01/13/2013 12:15 PM EDT Narrative Resulting Agency Comment Spec In Lab Tyson Connolly MD CHEMISTRY ORDERABLES Performing Organization Address City/[facility] Co de Phone Number [facility] NOE documented in this encounter Visit Diagnoses Diagnosis Graves disease 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
--- OUTSIDE RECORDS SUMMARY | 2024-02-04 13:21 | XMS_ITS | Encounter Summary ---
Author Organization [facility] Address [facility] [place] [address] Care Team Providers Care Cinder Pit Worker Name Role Phone Jason Davila MD Primary Care Provider [phone] Encounter Details Date Type Department Care Team (Late st Contact Info) Description 02/05/2013 3:30 PM EDT - 02/05/2013 5:00 PM EDT Surgery [place] [address] Jasper Young MD [facility] [place] [address] UPPER EUS- ENDOSCOPIC ULTRASOUND (WRVU 3.47) Social [...] occurs please contact your M.D. Please call [phone] before 5 pm with problems, questions or concerns. After 5pm call [phone] and ask to speak with the equity manager medication care manager. Discharge instructions reviewed with patient who expresses understanding. * Patient Instructions* Jasper Young MD - 02/05/2013 6:37 PM EDT Please see Recommendations in the Provation procedure report which is documented in the procedural note in E-DH. * Attachments The following attachments cannot be sent through Care Everywhere. * ENDOSCOPIC ULTRASOUND (ORAL): WHAT TO EXPECT AT HOME ([place]) documented in this encounter Medications at Time [...] Young MD - 02/05/2013 6:37 PM EDT [facility] Operative Note Patient Name: Anum Henriquez : [id number] MR#: [id number] Case Date: 02/05/2013 Surgeon: Surgeon(s) and Role: [...] EUS-ENDOSCOPIC ULTRASOUND (02/05/2013 6:16 PM EDT) Pathologist [facility] UPPER ENDOSCOPIC ULTRASOUND [facility]oscopy Patient Name: Anum Henriquez ? Procedure Date: 02/05/2013 6:16 PM ? Date of : 1960 ? Age: 52 ? Order #: [id number] ? Procedure: ? Upper EUS Indications: ? [...] GENERAL SURGICAL ORD ERABLES Performing Organization Address City/State/[facility] Co de Phone Number PROVATION documented in this encounter Visit Diagnoses Not on filedocumented in this encounter Active and Recently Administered Medications Care Teams Cinder Pit Worker Relationship Specialty Start Date End Date Jason Davila MD [address] [place] [address] [place] [address] PCP - General 01/13/13 12/09/23 marilyn noble Consulting Physician Gastroenterology 01/13/13 documented as of this encounter
--- OUTSIDE RECORDS SUMMARY | 2024-02-04 13:21 | XMS_ITS | Encounter Summary ---
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 Using [email or web address] you will be able to send messages to your providers, view your test results, renew prescriptions, schedule appointments, and much more. Follow these instructions to enter your personal [email or web address] account for the first time: 1. Start your internet browser and type [email or web address] into the address bar. 2. In the New User box on the right-hand side of the Welcome page click the link that states, ???I have an activation code.?? 3. On the Identification page, follow these steps: a) Enter your [email or web address] activation code: [email or web address] b) Expires: 2013 4:31 PM IMPORTANT: This Activation Code will on the above mentioned date. If you do not sign up for [email or web address] by this date, you will need to request another activation code. c) Enter your date of , using the calendar tool provided. d) Enter your Zip code. e) Select ???submit?? to go to the next page. 4. On the Create Account page, follow these steps: a) Create a [email or web address] username. This can???t be changed, so choose [...] or your Access Code, please call for [place], for [place] or for [place]. If you need technical support, please e-mail [email or web address]. Remember, myD-[email or web address] is NOT for urgent needs! 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
--- OUTSIDE RECORDS SUMMARY | 2024-02-04 13:21 | XMS_ITS | Encounter Summary ---
Author Organization [facility] Address [facility] [place] [address] Care Team Providers Care Tools Developer Name Role Phone Jason Davila MD Primary Care Provider [phone] Encounter Details Date Type Department Care Team (Latest Contact Info) Description 01/13/2013 11:51 AM EDT - 01/13/2013 11:59 PM EDT [place] [address] Glen Rodriguez MD 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 documented in this encounter Results * (ABNORMAL) Lipase (01/13/2013 12:10 PM EDT) Lipase 378(H) 0 - 60 unit/L [facility] MILLENNIUM Blood specimen (specimen) 01/13/2013 12:10 PM EDT 01/13/2013 12:15 PM EDT Narrative Resulting Agency Comment Spec In Lab Glen Rodriguez MD CHEMISTRY ORDERABLES CERNER MILLENNIUM * Differential, Automated (01/13/2013 12:10 PM EDT) Neutrophil % 67.5 34.0 - 71.0 % CERNER MILLENNIUM Neutrophil Absolute 3.82 1.50 - 6.30 x10(3)/mcL CERNER MILLENNIUM Lymph % 21.2 19.0 - 53.0 % CERNER MILLENNIUM Lymphocytes Abs 1.2 1.0 - 3.6 x10(3)/mcL CERNER MILLENNIUM Monocyte % 4.8 4.0 - 13.0 % CERNER MILLENNIUM Monocyte Abs 0.3 0.2 - 1.0 x10(3)/mcL CERNER MILLENNIUM Eos % 4.9 0.0 - 7.0 % CERNER MILLENNIUM Eosinophils Abs 0.3 0.0 - 0.5 x10(3)/mcL CERNER MILLENNIUM Basophil % 1.4 0.0 - 2.0 % CERNER MILLENNIUM Baso Absolute 0.1 0.0 - 0.2 x10(3)/mcL CERNER MILLENNIUM Immature Gran % 0.20 0.00 - 0.66 % [facility]EN[facility] Comment: Immature granulocytes(IG's)percentage and absolute count will include metamyelocytes, myelocytes, and promyelocytes. Blood smears from CBCs yielding IG's will be scanned manually for concordance. If this scan disagrees with the automated IG or if promyelocytes are noted, a manual differential will be performed. Immature Gran Absolute 0.01 0.00 - 0.05 x10(3)/mcL CERNER MILLENNIUM Blood specimen (specimen) 01/13/2013 12:10 PM EDT 01/13/2013 12:15 PM EDT Glen Rodriguez MD HEMATOLOGY ORDERABLE S [facility]RAEL[facility] * CK (01/13/2013 12:10 PM EDT) Creatine Kinase 53 0 - 160 unit/L CERNER MILLENNIUM Blood specimen (specimen) 01/13/2013 12:10 PM EDT 01/13/2013 12:15 PM EDT Narrative Resulting Agency Comment Spec In Lab Glen Rodriguez MD CHEMISTRY ORDERABLES Performing Organization Address [facility] Co de Phone Number CERELIO ARCOSENNIUM * (ABNORMAL) Comprehensive metabolic panel (non-fasting) (01/13/2013 12:10 PM EDT) Glucose 100 60 - 199 mg/dL CERNER MILLENNIUM Comment:Diabetes: >=200 mg/d L plus symptoms Blood Urea Nitrogen 31(H) 8 - 18 mg/dL CERNER MILLENNIUM Creatinine 1.85(H) 0.70 - 1.20 mg/dL CERNER MILLENNIUM Comment: Please note that the pediatric reference intervals supplied above were not validated at [facility]. Results from pediatric patients [...] In Lab Glen Rodriguez MD CHEMISTRY ORDERABLES [facility] * (ABNORMAL) CBC (with Diff) (01/13/2013 12:10 [...] MD HEMATOLOGY ORDERABLE S Performing Organization Address City/State/[facility] Co de Phone Number BAR NOE documented in this encounter Visit Diagnoses Diagnosis halfway current use of antibiotics Encounter for long-term (current) use of antibiotics documented in this encounter Care Teams Tools Developer Relationship Specialty Start Date End Date Jason Davila MD [address] [place] [address] [place] [address] PCP - General 01/13/13 12/09/23 marilyn noble Consulting Physician Gastroenterology 01/13/13 documented as of this encounter
--- OUTSIDE RECORDS SUMMARY | 2024-02-04 13:21 | XMS_ITS | Encounter Summary ---
Author Organization [facility] Address [facility] [place] [address] Care Team Providers Care Fleet Sales Manager Name Role Phone Ofelia Costello APRN Primary Care Provider [phone] Encounter Details Date Type Department Care Team (Late st Contact Info) Description 01/05/2013 Orders Only Hematology/[place] [address] Flynn Frausto MD [facility] GENER[facility] [place] [address] Social History Tobacco Use Types Packs/Day Years [...] on filedocumented in this encounter Care Teams Fleet Sales Manager Relationship Specialty Start Date End Date Ofelia Costello APRN [facility] [address] [place] [address] PCP - General 12/13/12 01/12/13 documented as of this encounter
--- OUTSIDE RECORDS SUMMARY | 2024-02-04 13:21 | XMS_ITS | Encounter Summary ---
Author Organization [facility] Address [facility] [place] [address] Care Team Providers Care Communications Station Manager Name Role Phone Jason Davila MD Primary Care Provider [phone] Encounter Details Date Type Department Care Team (Latest Contact Info) Description 02/05/2013 1:46 PM EDT - 02/05/2013 7:11 PM EDT Hospital Encounter [place] [address] Jasper Young MD [facility] DR [place] [address] Discharge Disposition: Home Social History Tobacco Use [...] occurs please contact your M.D. Please call [phone] before 5 pm with problems, questions or concerns. After 5pm call [phone] and ask to speak with the peripheral edp equipment operator distributor publications. Discharge instructions reviewed with patient who expresses understanding. * Patient Instructions* Jasper Young MD - 02/05/2013 6:37 PM EDT Please see Recommendations in the Provation procedure report which is documented in the procedural note in E-DH. * Attachments The following attachments cannot be sent through Care Everywhere. * ENDOSCOPIC ULTRASOUND (ORAL): WHAT TO EXPECT AT HOME (AZERI) documented in this encounter Medications at Time [...] Young MD - 02/05/2013 6:37 PM EDT [facility] Operative Note Patient Name: Anum Henriquez : [id number] MR#: [id number] Case Date: 02/05/2013 Surgeon: Surgeon(s) and Role: [...] (02/05/2013 6:16 PM EDT) UPPER ENDOSCOPIC ULTRASOUND [facility] Endoscopy Patient Name: Anum Henriquez ? Procedure Date: 02/05/2013 6:16 PM ? Date of : 1960 ? Age: 52 ? Order #: [id number] ? Procedure: ? Upper EUS Indications: ? [...] Jason Davila MD GENERAL SURGICAL ORD ERABLES PROVATION documented in this encounter Visit Diagnoses Not on filedocumented in this encounter Active and Recently Administered Medications Care Teams Communications Station Manager Relationship Specialty Start Date End Date Jason Davila MD [address] [place] [address] [place] [address] PCP - General 01/13/13 12/09/23 marilyn noble Consulting Physician Gastroenterology 01/13/13 documented as of this encounter
--- OUTSIDE RECORDS SUMMARY | 2024-02-04 13:21 | XMS_ITS | Encounter Summary ---
Author Organization [facility] Address [facility] [place] [address] Care Team Providers Care Scuba Diving Teacher Name Role Phone Lonny Davila MD Primary Care Provider [phone] Reason for Visit * Reason Comments GI Problem Encounter Details Date Type Department Care Team (Late st Contact Info) Description 01/22/2013 10:00 AM EDT Office [place] [address] Susana Seals MD [facility] DR [place] [address] Epigastric abdominal pain (Primary Dx) Discharge Disposition: [...] Seals MD - 01/22/2013 10:08 AM EDT [facility] Section of Gastroenterology and Hepatology Outpatient [...] every having bloody 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 Dony Seals [place] [address] P: [phone] F: [phone] CC LONNY DAVILA MD [address] [place] [address] [place] [address] Lonny Davila MD [address] [place] [address] [place] [address] documented in this encounter Plan of Treatment [...] 4 103.2(H) 4.0 - 86.0 mg/dL [facility] Comment: Test Performed by [employer], [facility], [address] [place] [address] Ankit Chambers M.D., Ph.D., Director of Laboratories , CLIA [id number] Blood specimen (specimen) 01/22/2013 11:46 AM EDT 01/22/2013 2:53 PM EDT Narrative Resulting Agency Comment Spec In Lab Doyn Deleon MD IMMUNOLOGY ORDERABLE S [facility] * (ABNORMAL) Triglyceride (01/22/2013 11:46 AM EDT) Triglyceride 219(H) <=149 mg/dL CERNER MILLENNIUM Comment: Reference Range: Normal triglycerides: ??<150 mg/dL Borderline high: ??150-199 mg/dL High: ??200-499 mg/dL Very high: ??>rj=372 mg/dL SNEHA 2001; 285(88):3981-0224 Blood specimen (specimen) 01/22/2013 11:46 AM EDT 01/22/2013 11:58 AM EDT Narrative Resulting Agency Comment Spec In Lab Dony Deleon MD CHEMISTRY ORDERABLES Performing Organization Address [facility] Co de Phone Number CERNER MILLENNIUM * Hepatic Function Panel (01/22/2013 11:46 AM EDT) Pathologist [facility] Protein, Total 8.1 6.4 - 8.3 gm/dL CERNER MILLENNIUM Albumin 4.5 3.2 - 5.2 gm/dL CERNER MILLENNIUM Aspartate Aminotransferase 18 0 - 30 unit/L CERNER MILLENNIUM Alanine Aminotransferase 12 0 - 30 unit/L CERNER MILLENNIUM Alkaline Phosphatase 52 40 - 104 unit/L CERNER MILLENNIUM Bilirubin, Total 0.2 0.2 - 1.3 mg/dL CERNER MILLENNIUM Bilirubin, Direct 0.1 0.0 - 0.3 mg/dL CERNER MILLENNIUM Blood specimen (specimen) 01/22/2013 11:46 AM EDT 01/22/2013 11:58 AM EDT Narrative Resulting Agency Comment Spec In Lab Dony Deleon MD CHEMISTRY ORDERABLES [facility]ER MILLENNI[facility] * (ABNORMAL) Amylase (01/22/2013 11:46 AM EDT) Amylase 214(H) 28 - 100 unit/L CERELIO ARCOSENNIUM Blood specimen (specimen) 01/22/2013 11:46 AM EDT 01/22/2013 11:58 AM EDT Narrative Resulting Agency Comment Spec In Lab Dony Deleon MD CHEMISTRY ORDERABLES Performing Organization Address City/[facility] Co de Phone Number [facility] * (ABNORMAL) Lipase (01/22/2013 11:46 AM EDT) Lipase 178(H) 0 - 60 unit/L [facility] Blood specimen (specimen) 01/22/2013 11:46 AM EDT 01/22/2013 11:58 AM EDT Narrative Resulting Agency Comment Spec In Lab Dony Deleon MD CHEMISTRY ORDERABLES Performing Organization Address [facility] Co de Phone Number [facility] documented in this encounter Visit Diagnoses Diagnosis Epigastric abdominal pain- Primary Abdominal pain, epigastric documented in this encounter Care Teams Scuba Diving Teacher Relationship Specialty Start Date End Date Lonny Davila MD [address] [place] [address] [place] [address] PCP - General 01/13/13 12/09/23 marilyn noble Consulting Physician Gastroenterology 01/13/13 documented as of this encounter
--- OUTSIDE RECORDS SUMMARY | 2024-02-04 13:21 | XMS_ITS | Encounter Summary ---
Author Organization [facility] Address [place] [address] Care Team Providers Care Pipe And Tank Fabricator Name Role Phone Jason Davila MD Primary Care Provider [phone] Encounter Details Date Type Department Care Team (Latest Contact Info) Description 01/13/2013 11:51 AM EDT - 01/13/2013 11:59 PM EDT Hospital [place] [address] Jason Davila MD [address] [place] [id number] Discharge Disposition: Home Social History Tobacco Use [...] (ABNORMAL) Prothrombin Time (01/13/2013 12:11 PM EDT) [facility] Prothrombin Time 19.8(H) 12.0 - 15.0 sec ABR [facility] Comment: [facility] Transfusion Committee Guidelines: INR less than 2.0, PTT less than OR equal to 43.5 seconds, or Fibrinogen greater than or equal to 100 mg/dl indicate adequate procoagulant activity for hemostasis in patients without underlying bleeding disorders. International Normalization Ratio 1.6(H) 0.9 - 1.1 BAR NOE Blood specimen (specimen) 01/13/2013 12:11 PM EDT 01/13/2013 12:15 PM EDT Narrative Resulting Agency Comment Spec In Lab Jason Davila MD HEMATOLOGY ORDERABLE S [facility] documented in this encounter Visit Diagnoses Not on filedocumented in this encounter Care Teams Pipe And Tank Fabricator Relationship Specialty Start Date End Date Jason Davila MD [address] [place] [address] [place] [address] PCP - General 01/13/13 12/09/23 marilyn noble Consulting Physician Gastroenterology 01/13/13 documented as of this encounter
--- OUTSIDE RECORDS SUMMARY | 2024-02-04 13:21 | XMS_ITS | Encounter Summary ---
Author Organization [facility] Address [facility] [place] [address] Care Team Providers Care Corporate Strategy Analyst Name Role Phone Lonny Davila MD Primary Care Provider [phone] Reason for Visit * Reason Comments Acute Kidney Injury Encounter Details Date Type Department Care Team (Late st Contact Info) Description 05/22/2013 1:30 PM EST Follow-Up [place] [address] Shiv Salgado MD [facility] [place] [address] Renal insufficiency (Primary Dx) Discharge Disposition: Home [...] in this encounter Progress Notes * Osmany Lucero MD - 05/27/2013 6:00 PM EST The [...] Salgado MD - 05/22/2013 1:02 PM EST [facility] Nephrology/Hypertension Follow Up Anum Henriquez [id number] ID: [id number] y.o. female for f/u visit for TTP. 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 01/03/13 01/13/13 Flynn Frausto MD Wfborjoqrne-Qpyywssqu-Pqz C-Mn 500-400 mg Cap 12/03/09 01/13/13 Allergies [...] bleed 5. 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 Graves disease F/u w Endo Plan: Follow up: 6 months Seen and Discussed w/ Dr. Nic Salgado MD Nephrology Fellow Pager# [phone] LONNY DAVILA MD [address] [place] [address] [place], [place] [id number] documented in this encounter Miscellaneous Notes * Addendum Note - Osmany Lucero MD - 05/27/2013 6:01 PM ESTAddended by: OSMANY LUCERO on: 05/27/2013 06:01 PM Modules accepted: Level of Service documented in this encounter Plan of Treatment Not on file documented as of this encounter Procedures Procedure Name Priority Date/Time Associated Diagnosis Comments LIPASE STAT 05/22/2013 3:25 PM EST AMYLASE STAT 05/22/2013 3:25 PM EST HEPATIC FUNCTION PANEL STAT 05/22/2013 3:25 PM EST BASIC METABOLIC PANEL STAT 05/22/2013 3:25 PM EST Renal insufficiency DIFFERENTIAL, AUTOMATED Routine 05/22/2013 1:15 PM EST CBC (WITH DIFF) Routine 05/22/2013 1:15 PM EST Renal insufficiency documented in this encounter Results * (ABNORMAL) Amylase (05/22/2013 3:25 PM EST) Amylase 138(H) 28 - 100 unit/L CERNER MILLENNIUM Blood specimen (specimen) 05/22/2013 3:25 PM EST 05/22/2013 3:40 PM EST Narrative Resulting Agency Comment Spec In Lab Osmany Lucero MD CHEMISTRY ORDERAB LES Performing Organization Address City/[facility]/ZIP Co de Phone Number CERNER MILLENNIUM * (ABNORMAL) Lipase (05/22/2013 3:25 PM EST) Lipase 77(H) 0 - 60 unit/L CERNER MILLENNIUM Blood specimen (specimen) 05/22/2013 3:25 PM EST 05/22/2013 3:40 PM EST Narrative Resulting Agency Comment Spec In Lab Osmany Lucero MD CHEMISTRY ORDERAB LES Performing Organization Address [facility] de Phone Number CERNER MILLENNIUM * (ABNORMAL) Hepatic Function Panel (05/22/2013 3:25 PM EST) Protein, Total 7.5 6.4 - 8.3 gm/dL CERNER MILLENNIUM Albumin 4.3 3.2 - 5.2 gm/dL CERNER MILLENNIUM Aspartate Aminotransferase 32(H) 0 - 30 unit/L CERNER MILLENNIUM Alanine Aminotransferase 19 0 - 30 unit/L CERNER MILLENNIUM Alkaline Phosphatase 60 40 - 104 unit/L CERNER MILLENNIUM Bilirubin, Total 0.2 0.2 - 1.3 mg/dL CERNER MILLENNIUM Bilirubin, Direct <0.1 0.0 - 0.3 mg/dL CERNER MILLENNIUM Blood specimen (specimen) 05/22/2013 3:25 PM EST 05/22/2013 3:40 PM EST Narrative Resulting Agency Comment Spec In Lab Osmany Lucero MD CHEMISTRY ORDERAB LES Performing Organization Address City/[facility]/ZIP Co de Phone Number CERNER MILLENNIUM * (ABNORMAL) Basic Metabolic Panel (non-fasting) (05/22/2013 3:25 PM EST) Glucose 85 60 - 199 mg/dL CERNER MILLENNIUM Comment:Diabetes: >=200 mg/d L plus symptoms Blood Urea Nitrogen 19(H) 8 - 18 mg/dL CERNER MILLENNIUM [...] 103 98 - 107 mmol/L CERNER MILLENNIUM Carbon Dioxide 22 22 - 31 mmol/L CERNER MILLENNIUM Anion Gap 15 5 - 15 mmol/L CERNER MILLENNIUM Calcium 9.2 8.5 - 10.5 mg/dL CERNER MILLENNIUM Est Glomerular Filtration Rate 45(L) >=60 CERNER MILLENNIUM Comment: This estimated [...] Resulting Agency Comment Spec In Lab Osmany Lucero MD CHEMISTRY ORDERAB LES [facility] Alces TechnologyAURORA EAST HOSPITALIUM * Differential, Automated (05/22/2013 1:15 PM EST) Neutrophil % 56.0 34.0 - 71.0 % CERNER MILLENNIUM Neutrophil Absolute 2.63 1.50 - 6.30 x10(3)/mcL CERNER MILLENNIUM Lymph % 30.4 19.0 - 53.0 % CERNER MILLENNIUM Lymphocytes Abs 1.4 1.0 - 3.6 x10(3)/mcL CERNER MILLENNIUM Monocyte % 7.0 4.0 - 13.0 % CERNER MILLENNIUM Monocyte Abs 0.3 0.2 - 1.0 x10(3)/mcL CERNER MILLENNIUM Eos % 6.2 0.0 - 7.0 % CERNER MILLENNIUM Eosinophils Abs 0.3 0.0 - 0.5 x10(3)/mcL CERNER MILLENNIUM Basophil % 0.4 0.0 - 2.0 % CERNER MILLENNIUM Baso Absolute 0.0 0.0 - 0.2 x10(3)/mcL CERNER MILLENNIUM Immature Gran % 0.00 0.00 - 0.66 % CERNER MILLENNIUM Comment: Immature granulocytes(IG's)percentage and absolute count will include metamyelocytes, myelocytes, and promyelocytes. Blood smears from CBCs yielding IG's will be scanned manually for concordance. If this scan disagrees with the automated IG or if promyelocytes are noted, a manual differential will be performed. Immature Gran Absolute 0.00 0.00 - 0.05 x10(3)/mcL CERNER MILLENNIUM Blood specimen (specimen) 05/22/2013 1:15 PM EST 05/22/2013 1:22 PM EST Osmany Lucero MD HEMATOLOGY ORDERA BLES CERELIO ARCOSENNIUM * (ABNORMAL) CBC (with Diff) (05/22/2013 1:15 PM EST) White Blood Cell 4.7 4.0 - 10.0 x10(3)/mc L CERNER MILLENNIUM Red Blood Cell 3.88(L) 3.93 - 5.22 x10(6)/mc L CERNER MILLENNIUM Hemoglobin 11.1(L) 11.2 - 15.7 gm/dL CERNER MILLENNIUM Hematocrit 33.7(L) 34.0 - 45.0 % CERNER MILLENNIUM Mean Cell Volume 86.9 79.0 - 94.0 fL CERNER MILLENNIUM Mean Cell Hemoglobin 28.6 26.6 - 32.2 pg CERNER MILLENNIUM Mean Cell Hemoglobin Concentration 32.9 32.0 - 36.5 gm/dL CERNER MILLENNIUM Platelet 218 145 - 370 x10(3)/mc L CERNER MILLENNIUM RDW Standard Deviation 40.2 35.0 - 46.0 fL CERNER MILLENNIUM RDW coefficient of variation 12.7 10.9 - 14.4 % CERNER MILLENNIUM Mean Platelet Volume 10.0 9.0 - 12.0 fL CERNER MILLENNIUM Blood specimen (specimen) 05/22/2013 1:15 PM EST 05/22/2013 1:22 PM EST Narrative Resulting Agency Comment Spec In Lab Osmany Lucero MD HEMATOLOGY ORDERA BLES BAR NOE documented in this encounter Visit Diagnoses Diagnosis Renal insufficiency- Primary Unspecified disorder of kidney and ureter documented in this encounter Care Teams Corporate Strategy Analyst Relationship Specialty Start Date End Date Lonny Davila MD [address] [place] [address] [place] [address] PCP - General 01/13/13 12/09/23 marilyn noble Consulting Physician Gastroenterology 01/13/13 documented as of this encounter
--- OUTSIDE RECORDS SUMMARY | 2024-02-04 13:21 | XMS_ITS | Encounter Summary ---
Author Organization [facility] Address [facility] [place] [address] Care Team Providers Care Featherer Name Role Phone Jason Davila MD Primary Care Provider [phone] Encounter Details Date Type Department Care Team (Latest Contact Info) Description 01/13/2013 11:25 AM EDT - 01/13/2013 11:59 PM EDT Hospital [place] [address] CLINIC, Fabi Salter MD [facility] HEMATOLOGY [place] [address] TTP (thrombotic thrombocytopenic purpura); MRSA (methicillin resistant [...] intravenous contrast dated December 10, 2012 from [facility]. Technique Axial images of the abdomen [...] - downloaded to [facility] [address] Reassess colon thickening Comparison CT scan of the abdomen and pelvis with intravenous contrast dated December from [facility]. Technique Axial images of the abdomen [...] heart documented in this encounter Care Teams Featherer Relationship Specialty Start Date End Date Jason Davila MD [address] [place] [address] [place] [address] PCP - General 01/13/13 12/09/23 marilyn noble Consulting Physician Gastroenterology 01/13/13 documented as of this encounter
--- OUTSIDE RECORDS SUMMARY | 2024-02-04 13:22 | XMS_ITS | Encounter Summary ---
Author Organization [facility] Address [facility] [place] [address] Care Team Providers Care It Support Specialist Name Role Phone Ofelia Costello APRN Primary Care Provider [phone] Encounter Details Date Type Department Care Team (Late st Contact Info) Description 12/28/2012 Telephone [place]ematology [place] [address] Demetris Hall MD [facility] DR HEMATOLOGY/[place] [address] Social History Tobacco Use Types Packs/Day Years [...] on filedocumented in this encounter Care Teams It Support Specialist Relationship Specialty Start Date End Date Ofelia Costello APRN [address] [address] PCP - General 12/13/12 01/12/13 documented as of this encounter
--- OUTSIDE RECORDS SUMMARY | 2024-02-04 13:22 | XMS_ITS | Encounter Summary ---
Author Organization [facility] Address [facility] [place] [address] Care Team Providers Care Cytotechnologist/Cytology Supervisor Name Role Phone Ofelia Costello APRN Primary Care Provider [phone] Encounter Details Date Type Department Care Team (Late st Contact Info) Description 12/30/2012 Orders Only Hematology [place] [address] Haris Jarvis MD [facility] [address] [place] [address] Social History Tobacco Use Types Packs/Day Years [...] is a non-reportable exam. Haris Jarvis MD [facility] FILM LIBRARY ORD ERABLES [facility] [address] [place] [address] documented in this encounter Visit Diagnoses Not on filedocumented in this encounter Care Teams Cytotechnologist/Cytology Supervisor Relationship Specialty Start Date End Date Ofelia Costello APRN [address] [address] PCP - General 12/13/12 01/12/13 documented as of this encounter
--- OUTSIDE RECORDS SUMMARY | 2024-02-04 13:22 | XMS_ITS | Encounter Summary ---
Author Organization [facility] Address [facility] [place] [address] Care Team Providers Care Cash Management Coordinator Name Role Phone Bakari Costello APRN Primary Care Provider [phone] Reason for Referral * Consultation (Routine) - Complete-Ref Provider Notified Specialty Diagnoses / Procedures Referred By Phan t Referred To Contact Diagnoses MRSA bacteremia Abraham Mesa MD [facility] [place] [address] [facility] Infectious Dis [address] [place] [id number] Referral ID Status Reason Start Date Expiration Date Visits Requested Visits Authorized [id number] Complete-Ref Provider Notified Assume Subset of Care 01/05/2013 07/04/2013 1 1 Encounter Details Date Type Department Care Team (Latest Contact Info) Description 12/30/2012 12:13 PM EDT - 01/05/2013 12:14 PM EDT Hospital Encounter Hematology [place] [address] Haris Jarvis MD [facility] [address] HEMATOLOGY [place] [address] Dipak Verma MD [facility] HEMATOLOGY/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 Ruiz, Dr. [...] PCP: BAKARI COSTELLO APRN PCP phone number: [phone] Date of Admission: 12/30/2012 ( Hospital Day 5 days ) Service: Hem/Onc Team A - Pager [phone] Responsible Attending:Dipak Verma MD ID: 52 y.o. female with a hx of Graves' disease, recently discharged (12/27) from [facility] following treatment with plasma exchange for TTP-HUS [...] 226 NEUTROABS 3.58 3.25 2.69 [facility] 01/04/1313401/03/13 0501/02/13 0515 NA 134* 139 139 K 4.2 4.0 4.0 CL 96* 101 102 CO2 28 27 27 BUN 17 13 10 CREATININE 2.36* 2.54* 2.18* GLUCOSE -- -- -- Recent Labs [facility] 01/04/1313401/03/1352501/02/13 0515 CALCIUM 9.2 9.2 9.2 MAGNESIUM -- -- -- PHOS -- -- -- Recent Labs [facility] 01/02/13 1150 AST 17 ALT 15 ALKPHOS 52 BILITOT 0.2 BILIDIR 0.1 Recent Labs [facility] 01/04/1313401/03/1352501/02/13 0515 INR 1.6* 1.8* 1.8* PT 20.0* 21.2* 21.1* PTT 34 -- -- Recent Labs [facility] 01/04/1313401/03/1352501/02/13 0515 LDH 220 208 229* URICACID [...] of Graves' disease, recently discharged (12/27) from [facility] following treatment with plasma exchange for TTP-HUS [...] sx PEGGY BAÑUELOS MD 01/04/2013 Team Pager #[phone] I have personally seen and examined the [...] PCP: BAKARI COSTELLO APRN PCP phone number: [phone] Date of Admission: 12/30/2012 ( Hospital Day 4 days ) Service: Hem/Onc Team A - Pager [phone] Responsible Attending:Dipak Verma MD ID: 52 y.o. female with a hx of Graves' disease, recently discharged (12/27) from [facility] following treatment with plasma exchange for TTP-HUS [...] Intake/Output Summary (Last 24 hours) at 01/03/13 0648 Last data filed at 01/03/13 0531 Gross [...] 4 extremities equally Labs: Recent Labs Basename 01/03/1352501/02/1351401/01/13 0425 WBC 4.9 4.5 5.0 HGB 8.9* 9.0* 8.8* HCT 27.6* 27.8* 26.3* PLATELET 230 226 247 NEUTROABS 3.25 2.69 3.42 Recent Labs Basename 01/03/1352501/02/1315 01/01/13 0425 NA 139 139 138 K 4.0 4.0 3.4* CL 101 102 100 CO2 27 27 27 BUN 13 10 11 CREATININE 2.54* 2.18* 2.06* GLUCOSE -- -- -- Recent Labs Basename 01/03/1352501/02/13 0515 01/01/13 0425 CALCIUM 9.2 9.2 9.1 [...] of Graves' disease, recently discharged (12/27) from [facility] following treatment with plasma exchange for TTP-HUS [...] sx PEGGY BAÑUELOS MD 01/03/2013 Team Pager #[phone] I have personally seen and examined the [...] Office of Care Management (OCM) / Clinical Preventive Medicine Physician (CRC) Continuing Care Note Care reviewed with hematology/blood and marrow transplant team and at interdisciplinary discharge rounds. . Situation: Need for home oxygen. Qualifying sats complete. Chose [facility] as a vendor. Need to resume home IV abx's, OPAT notified> Patient has drug on hand. Background: TTP-HUS admitted for shortness of breath Assessment: need for home services Time line for discharge is tomorrow Rec's/Plan: 1. OPAT orders pending 2. Referral to [facility] done 3. Referral to [facility] done 4. Referral to [facility] done> they will bring portable to room. Gorge Bishop RN Clinical Preventive Medicine Physician Office of Care Management Pager [phone] * Dez Bishop, RN - 01/02/2013 2:05 PM EDT Patient Name: Anum Henriquez Patient Age: 52 y.o. Birthdate: 1960 Admit date: 12/30/2012 Attending Physician: Dipak Verma MD Office of Care Management Clinical Preventive Medicine Physician Home IV Antibiotic Therapy Referral Note. Report received from Dr. Ruiz that patient will require continued home IV antibiotic therapy after discharge from the hospital. Met with patient/family to discuss vendor and visiting nurse choices for home IV antibiotic therapy. Reviewed Home Infusion Vendors and Home Health Agencies that serve patient???s address and accept patient???s insurance. Home Health Agency: Patient requested referral to [facility] PHONE: [phone] FAX: [phone] Referrals sent via edischarge. Home Infusion Vendor: Patient requested referral to [place], [place] or Referrals sent via edischarge. Diabetic Status: Patient is not a diabetic. IV access: Type of line: PICC Date placed: 12/27/12 Gorge Bishop RN Clinical Preventive Medicine Physician Hematology/Blood and Marrow Transplant Office of Care Management Pager [phone] * Dipak Verma MD - 01/02/2013 1:50 PM EDT Inpatient Hematology/Oncology/SCT Progress Note Patient info: Name: Anum Henriquez : 1960 PCP: BAKARI COSTELLO APRN PCP phone number: [phone] Date of Admission: 12/30/2012 ( Hospital Day 3 days ) Service: Hem/Onc Team A - Pager [phone] Responsible Attending:Dipak Verma MD ID: 52 y.o. female with a hx of Graves' disease, recently discharged (12/27) from [facility] following treatment with plasma exchange for TTP-HUS [...] NEUTROABS 2.69 3.42 4.74 Recent Labs Basename 01/02/1351401/01/1342412/31/120 12/27/12 035 NA 139 138 139 -- K 4.0 [...] of Graves' disease, recently discharged (12/27) from [facility] following treatment with plasma exchange for TTP-HUS [...] sx PEGGY BAÑUELOS MD 01/02/2013 Team Pager #[phone] I have personally seen and examined the [...] No past medical history on file. Diet: [facility], 2 gm Na+, 1500 ml FR Height: 170 cm Admit Weight: 66.2 kg BMI: 23 UBW: 73.6 kg (12/17 Labs: Creat; 2.18, Est. GFR: 24 Medications: Lasix, Coumadin, Nexium, others noted A: Pt seen for initial nutrition evaluation. 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 [...] PCP: BAKARI COSTELLO APRN PCP phone number: [phone] Date of Admission: 12/30/2012 ( Hospital Day 2 days ) Service: Hem/Onc Team A - Pager [phone] Responsible Attending:Haris Jarvis MD ID: 52 y.o. female with a hx of Graves' disease, recently discharged (12/27) from [facility] following treatment with plasma exchange for TTP-HUS [...] 4.74 4.46 Recent Labs Basename 01/01/13 0425 12/31/120 12/30/12161612/27/12 0357 12/26/12 0342 NA 138 139 139 -- -- K 3.4* 4.2 3.0* -- -- CL 100 103 102 -- -- CO2 27 25 25 -- -- BUN 11 11 11 -- -- CREATININE 2.06* 2.14* 2.02* -- -- GLUCOSE -- -- -- 108 99 Recent Labs Basename 01/01/13 04212/31/120 12/30/12161612/27/1235612/26/12 0342 CALCIUM 9.1 8.9 9.1 -- -- [...] of Graves' disease, recently discharged (12/27) from [facility] following treatment with plasma exchange for TTP-HUS [...] sx PEGGY BAÑUELOS MD 01/01/2013 Team Pager #[phone] I have personally seen and examined the [...] Office of Care Management (OCM) / Clinical Preventive Medicine Physician (CRC) Initial Assessment Care reviewed with hematology/blood [...] by mouth daily. 15 tablet 0 ??? Oxrvzbdcrgo-Pzhlwrjlz-Pge C-Mn 500-400 mg Cap ??? Seymour-3 Fatty Acids-Vitamin E (OMEGA-3 FISH OIL) 1,000-5 [...] of breath at rest and went to [facility] ED and transferred to [facility]. Previous functional status: Patient is independent with mobility/ambulation, transfers, ADL's, IADL's. Uses [facility] Current functional status: Is ambulating independently in room> [x} Yes Rehab referral: [x} No Home set up: Single story home with no steps to enter. Family and social supports: with grown son and daughter that live locally. Has lived in [place] all of her life. Mother and father are in a assisted close by. Many friends and well connected in the community. Extended Emergency Contact Information Primary Emergency Contact: Liu Henriquez Relation: Durable Power of Marine Services Technician for Healthcare Secondary Emergency Contact: Liu Roberts Relation: Sibling Father: Venita Vora Advance directives: None on file. States she has a copy at home. Code status: Full Code Insurance: Commercial Financial Issues: [x} No Referral to financial services: [x} No Preferred Pharmacy:[address], [address] pharmacy. DME: Yes [facility] Home Health Agency: [x} Yes [facility] IV Access: Peripheral Edwardo-Cath PICC Tunneled Central Line Home Infusion: Yes [facility] CONTRACT DESIGN AGENT Referral: Kemal Tinoco CONTRACT DESIGN AGENT Referral indicated: [x} No Primary Care Physician: BAKARI COSTELLO APRN [phone] Primary [facility] Ad Clerk: Dr. Romero Referring Ad Clerk: Potential discharge needs: Undetermined Anticipated barriers to discharge: No Transportation at discharge: Plan: CRC will continue to monitor progress, follow for continuity of care and assist with discharge planning. Future Appointments Date Time Provider Department Center 01/13/2013 3:30 PM Brian Velazco MD [facility] 01/14/2013 10:05 AM Minor Kebede MD [facility] 01/14/2013 10:30 AM Clovis Varner MD [facility] . Dez Bishop RN Clinical Preventive Medicine Physician Office of Care Management Pager [phone] * Haris Jarvis MD - 12/31/2012 6:55 AM EDT Inpatient Hematology/Oncology/SCT Progress Note Patient info: Name: Anum Henriquez : 1960 PCP: BAKARI COSTELLO APRN PCP phone number: [phone] Date of Admission: 12/30/2012 ( Hospital Day 1 day ) Service: Hem/Onc Team A - Pager [phone] Responsible Attending:Haris Jarvis MD ID: 52 y.o. female with a hx of Graves' disease, recently discharged (12/27) from [facility] following treatment with plasma exchange for TTP-HUS [...] dropped. She was able to ambulate around [facility] this am without oxygen - Eating [...] 4 extremities equally Labs: Recent Labs Basename 12/31/1239912/30/12161612/27/12 035 WBC 7.2 6.3 8.2 HGB 9.1* 9.1* [...] of Graves' disease, recently discharged (12/27) from [facility] following treatment with plasma exchange for TTP-HUS a/w 4 days bloody diarrhea, MRSA bacteremia and b/l DVTs. Presented with worsening SOB, orthopnea, and LE edema. Diuresed well yesterday and will continue for sx improvement. Etiolgy: a new HF vs CKD. TTE today to evaluate cardiac. Notably she as renal follow-up petr dias as outpatient after her TTP/HUS, with appt. [...] sx PEGGY BAÑUELOS MD 12/31/2012 Team Pager #[phone] I have independently interviewed and examined this [...] Kemal Kumar - 12/30/2012 5:55 PM EDT Frog Catcher Encounter Note Patient Name: Anum Henriquez : [id number] MR#: [id number] Admit Date: 12/30/2012 12:13 PM Hospital Day 0 days Narrative: Visited patient as part of ongoing care. She reports an interest in attending Chapel Sunday an Noon. Assessment: Patient was lucid and pleasant. Intervention and Outcome: The encounter provided spiritual support Follow-up: Visit Sunday Time in Direct Care: 5 minutes Kemal Kumar 12/30/2012 documented in this encounter H&P Notes * Haris Jarvis MD - 12/30/2012 4:49 PM EDT Hematology/Oncology Admission History and Physical Patient Name: Anum Henriquez Service: M3A Responsible Attending: Haris Jarvis MD, PCP: BAKARI COSTELLO APRN PCP phone #: [phone] Outpt Ad Clerk/Oncologist: ID/Chief Complaint: 52-y/o female with a hx of Graves' disease, recently discharged (12/27) from [facility] following treatment with 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 History of Present Illness: Ms. Henriquez was discharged home from [facility] on 12/27/12 following treatment for TTP-HUS, MRSA [...] Concerned, she presented to the ED at [facility] for evaluation. She was noted to be saturating at mid 90s on RA and an ECG there showed NSR and no ST changes. She was transferred to [facility] and admitted to the Hematology Service. She [...] by mouth daily. 15 tablet 0 ??? Exgsusxhgsc-Ndnkkqavk-Tyk C-Mn 500-400 mg Cap ??? Seymour-3 Fatty Acids-Vitamin E (OMEGA-3 FISH OIL) 1,000-5 [...] petechiae Lines: PIV Laboratory: Recent Labs Basename 12/30/12161612/27/1235612/26/12 034 WBC 6.3 8.2 6.1 HGB 9.1* 9.0* 8.3* HCT 26.5* 27.0* 25.3* PLATELET 289 317 231 NEUTROABS 4.46 5.61 3.99 Recent Labs Basename 12/30/12161612/27/1235612/26/12 0342 NA 139 138 141 K 3.0* 3.5 3.5 CL 102 104 106 CO2 25 23 24 BUN 11 10 11 CREATININE 2.02* 2.10* 2.05* Recent Labs Basename 12/24/12 1300 AST -- ALT -- ALKPHOS -- BILITOT 0.4 BILIDIR 0.1 Recent Labs Basename 12/30/12161612/27/12 03512/26/12 0342 12/25/12 0414 CALCIUM 9.1 8.3* 8.5 -- MAGNESIUM -- 0.81 0.80 0.80 PHOS -- 4.4 4.1 3.4 Recent Labs Basename 12/30/12 1529 12/27/12 03512/26/12 1031 12/25/12 1526 PT 18.9* 14.0 -- 14.5 PTT -- -- 36* 31 FIBRINOGEN -- -- -- -- DDIMER -- -- -- -- Recent Labs [facility] 12/27/12 03512/26/12 0342 12/25/12 1204 LDH 257* 255* 288* [...] of Graves' disease, recently discharged (12/27) from [facility] following treatment with plasma exchange for TTP-HUS [...] PEGGY BAÑUELOS MD 12/30/2012 Team Pager # [phone] I have independently interviewed and examined this [...] O2 tank and O2 on at 2L. [facility] to supply home O2. Pt discharged with [...] (competes 3w course on 01/14); supplied by [facility] Nausea: scheduled pre-meal Zofran -Hypoxia felt to be multifactorial (TTP microthrombi + volume overload) -Monitor resolution of volume overload/effusions and consider adding daily lasix if renal function allows -Will f/u w/ Cards (Di in [place]); should get repeat TTE in 1 month weeks (~01/31); considerstress testing -Complete bridge from lovenox to coumadin, has prescription for an additional 10 days. PCP's officeto manage INR/warfarin dosing. She needs to be told to stop the enoxaparin when appropriate. First check will be Saturday 01/06 (every Sun/Ninfa via VNA). Therapeutic anticoagulation duration of warfarin [...] H&P) Ms. Henriquez was discharged home from [facility] on 12/27/12 following treatment for TTP-HUS, MRSA [...] Concerned, she presented to the ED at [facility] for evaluation. She was noted to be saturating at mid 90s on RA and an ECG there showed NSR and no ST changes. She was transferred to [facility] and admitted to the Hematology Service. She [...] Discharge Lab Data: Recent Labs Basename 01/05/13 04301/04/13 01301/03/13 0526 WBC 3.8* 5.5 4.9 HGB 9.6* 9.5* 8.9* PLATELET 274 238 230 Recent Labs Basename 01/05/13 0430 01/04/13 01301/03/13 0526 NA 136 134* 139 K 4.2 [...] Erythropoetin level 17 (range 4-24) ProBNP 01/01 23903; (12/20 2400 during previous admission) TSH 1.38; [...] 12 days. Qty: 9.6 mL Refills: 0 Lntpyyzamkx-Nzykqihsn-Tdj C-Mn 500-400 mg Cap CALCIUM ORAL Medications STOPPED Dose Seymour-3 Fatty Acids-Vitamin E (OMEGA-3 FISH OIL) 1,000-5 [...] instructions Home Oxygen therapy: NEWLY PROVIDED by [facility] (as needed, 2L at rest, up to [...] (Giovanni) they may change this 01/13 3:30pm [facility] Nephrology (Mora) 01/14 10am [facility] Endo (Gardenia Kebede) Your Inpatient Doctors at [facility]: Attendings: Luci Soto Residents: Dr. KoDr. Miguel zamarripa General Instructions Anticoagulation (???Blood Thinner?? 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 presents with [...] 01/08/2013 11:00 AM Fabi Romero MD Hematology/Oncology [phone] [facility] 01/13/2013 3:30 PM Brian Velazco MD Nephrology [phone] [facility] 01/14/2013 10:05 AM Minor Kebede MD Endocrinology [phone] [facility] 01/14/2013 10:30 AM Clovis Varner MD Endocrinology [phone] [facility] Future Orders Please Complete By Expires OPAT: Order / Recommendation for Post Discharge IV Antibiotic Management [CID809 CPT(R)] Process Instructions: If no progress note charted, please enter Clinical details in comments. Scheduling Instructions: Comments: Please Fax all results to: OPAT Program Infectious Disease Section [facility], [place] [address] FAX: Line care instructions per [facility] OPAT Program protocol. After hours, please contact the Infectious Disease Physician director loss prevention at . If this order was signed greater than 72 hours prior to [facility] discharge, please call to [...] bacteremia, line infection Referral for Outpatient Antibiotics [[id number] CPT(R)] Process Instructions: Scheduling Instructions: Comments: Questions: Responses: Patient location post discharge Home Start date 01/03/2013 Responsible MD post discharge contact info Out patient antibiotic team (OPAT Vendor / contact information [facility] requested IV abx Referral to Home Health [[id number] CPT(R)] Process Instructions: Scheduling Instructions: Comments: DOCUMENTATION FOR VNA SERVICES (INCLUDING THOSE PATIENTS WITH MEDICARE COVERAGE REQUIRING HOME VNA SERVICES AND/OR HOSPICE SERVICES) This is preliminary information related to the patient's needs and confirmation of Face to Face Encounter. The denoted information will require completion and an electronic signature by the physicianupon finalization of these orders. PATIENT'S LOCATION: Address: [address] [place] [address] [address] [facility] [address] Tel. #: [phone] (home) Garbage Collection Supervisor's Name: In discussion with the attending physician, it is certified that this patient is under their care and that they, or a nurse practitioner, clinical nurse specialist or physician's assistant coach who is working directly with them, had [...] : INR Please send CMP to Renal [facility], Attn: Dr. Velazco Please send CBC, CMP & INR to [place], [place] Attn: Andrea Mobley/Giovanni Please send CBC, CMP, CK to [facility] Infectious Disease- OPAT Program, FAX: START OF CARE DATE: 01/04/13 All VNA agencies which cover the area of patient's residence have been reviewed, either verbally tanvir writing, and patient/family have chosen the home health care agency as follows for home services: HOME HEALTH CARE AGENCY: [facility] PHONE: [phone] FAX: [phone] VENDOR: [employer] [facility] [employer] Address [address] [place] [address] Equipment ordered: IV antibiotic supplies Ordering Provider: Dipak Verma (attending) Ordering Provider Phone #: [phone] [place] [address] Questions: Responses: Agency name and contact information [facility] Patient location post discharge Home What [...] Contact Information: BAKARI COSTELLO APRN JOSE [address] [place] [address] Signed: FYLNN RUIZ MD Discharged: 01/05/2013 * Plan of Care - Radha Burgos, RN - 01/05/2013 6:37 AM EDT Problem: [...] Per patient, will need prescriptions filled in [place] and sent down here before d/c. Oncoming [...] for home O2 - orders placed by Dez Bishop, TARIK Comments: Vancomycin trough drawn immediately prior to [...] 01/01/2013 Admit Date: 12/30/2012 Place of Service: [facility] Responsible Attending: Dr. [facility] [...] for TTP-HUS, MRSA bacteremia who present to [facility] after experiencing SOB, orthopnea at home after discharge from [facility] on 12/27. Regarding her breathing status, she [...] leading to her seeking medical attention at [facility], and was transferred here. She denies ever [...] by mouth daily. 15 tablet 0 ??? Htswtzixfup-Oegnhcksh-Afp C-Mn 500-400 mg Cap ??? 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 Jimmy Severino MD #[id number] STAFF ADDENDUM: I have reviewed the available [...] on abdomen d/t Lovenox injections. Patient's L [facility] site C, D, I. * Miscellaneous [...] Routine 01/01/2013 4:25 AM EDT CARDIAC ENZYMES (MC/CGP) Routine 12/31/2012 7:55 PM EDT ECHOCARDIOGRAM TRANSTHORACIC [...] * Differential, Automated (01/05/2013 4:30 AM EDT) Neutrophil % 57.0 34.0 - 71.0 % CERNER MILLENNIUM Neutrophil Absolute 2.20 1.50 - 6.30 x10(3)/mcL CERNER MILLENNIUM Lymph % 27.3 19.0 - 53.0 % CERNER MILLENNIUM Lymphocytes Abs 1.0 1.0 - 3.6 x10(3)/mcL CERNER MILLENNIUM Monocyte % 9.4 4.0 - 13.0 % CERNER MILLENNIUM Monocyte Abs 0.4 0.2 - 1.0 x10(3)/mcL CERNER MILLENNIUM Eos % 5.2 0.0 - 7.0 % CERNER MILLENNIUM Eosinophils Abs 0.2 0.0 - 0.5 x10(3)/mcL CERNER MILLENNIUM Basophil % 0.8 0.0 - 2.0 % CERNER MILLENNIUM Baso [...] Gran Absolute 0.01 0.00 - 0.05 x10(3)/mcL CERELIO MILLENNIUM Blood specimen (specimen) 01/05/2013 4:30 AM EDT 01/05/2013 4:43 AM EDT Haris Jarvis MD HEMATOLOGY ORDERABLE S Performing Organization Address [facility] de Phone Number BAR ShowbucksBRII * (ABNORMAL) APTT (01/05/2013 4:30 AM EDT) Partial Thromboplastin Time 36(H) 25 - 35 sec [facility] [employer] Tele[employer]ENNIUM Comment: Recommended therapeutic PTT range for full dose unfractionated heparin is 80-114 seconds. Blood specimen (specimen) 01/05/2013 4:30 AM EDT 01/05/2013 4:43 AM EDT Narrative Resulting Agency Comment Spec In Lab Dipak Robertson MD HEMATOLOGY ORDERABL ES Performing Organization Address [facility] Phone Number BAR ARCOSTherma-WaveBRII * (ABNORMAL) Prothrombin Time (01/05/2013 4:30 AM EDT) Prothrombin Time 22.1(H) 12.0 - 15.0 sec [facility] [employer] Tele[employer]NIUM Comment: [facility] Transfusion Committee Guidelines: INR less than 2.0, PTT less than OR equal to 43.5 seconds, or Fibrinogen greater than or equal to 100 mg/dl indicate adequate procoagulant activity for hemostasis in patients without underlying bleeding disorders. International Normalization Ratio 1.9(H) 0.9 - 1.1 ELLIOTELIO ARCOSENNIUM Blood specimen (specimen) 01/05/2013 4:30 AM EDT 01/05/2013 4:43 AM EDT Narrative Resulting Agency Comment Spec In Lab Dipak Robertson MD HEMATOLOGY ORDERABL ES Performing Organization Address [facility]/ZIP Co de Phone Number CERNER MILLENNIUM * Lactate Dehydrogenase (01/05/2013 4:30 AM EDT) Lactate Dehydrogenase 198 110 - 220 unit/L CERNER MILLENNIUM Blood specimen (specimen) 01/05/2013 4:30 AM EDT 01/05/2013 4:43 AM EDT Narrative Resulting Agency Comment Spec In Lab Haris Jarvis MD CHEMISTRY ORDERABLES Performing Organization Address City/[facility]/ZIP Co de Phone Number CERELIO ARCOSENNIUM * (ABNORMAL) CBC (with Diff) (01/05/2013 4:30 AM EDT) White Blood Cell 3.8(L) 4.0 - 10.0 x10(3)/mc L CERNER MILLENNIUM Red Blood Cell 3.20(L) 3.93 - 5.22 x10(6)/mc L CERNER MILLENNIUM Hemoglobin 9.6(L) 11.2 - 15.7 gm/dL CERNER MILLENNIUM Hematocrit 29.9(L) 34.0 - 45.0 % CERNER MILLENNIUM Mean Cell Volume 93.4 79.0 - 94.0 fL CERNER MILLENNIUM Mean Cell Hemoglobin 30.0 26.6 - 32.2 pg CERNER MILLENNIUM Mean Cell Hemoglobin Concentration 32.1 32.0 - 36.5 gm/dL CERNER MILLENNIUM Platelet 274 145 - 370 x10(3)/mc L CERNER MILLENNIUM RDW Standard Deviation 52.2(H) 35.0 - 46.0 fL CERNER MILLENNIUM RDW coefficient of variation 15.7(H) 10.9 - 14.4 % CERNER MILLENNIUM Mean Platelet Volume 11.0 9.0 - 12.0 fL CERNER MILLENNIUM Blood specimen (specimen) 01/05/2013 4:30 AM EDT 01/05/2013 4:43 AM EDT Narrative Resulting Agency Comment Spec In Lab Haris Jarvis MD HEMATOLOGY ORDERABLE S BAR ARCOSENNIUM * (ABNORMAL) BMP w/fasting Glucose (01/05/2013 4:30 AM EDT) [facility] Glucose Fasting 94 65 - 99 mg/dL [...] of Diabetes Mellitus, Position Statement from the [place] [employer]. ??Diabetes Care, Volume 33, Supplement 1, Jun 2009 Blood Urea Nitrogen 20(H) 8 - 18 mg/dL CERNER MILLENNIUM Creatinine 2.27(H) 0.70 - 1.20 mg/dL CERNER MILLENNIUM Comment: Please note that the pediatric reference intervals supplied above were not validated at [facility]. Results from pediatric patients [...] 98 98 - 107 mmol/L CERNER MILLENNIUM Carbon Dioxide 29 22 - 31 mmol/L CERNER MILLENNIUM Anion Gap 9 5 - 15 mmol/L CERNER MILLENNIUM Calcium 9.4 8.5 - 10.5 mg/dL CERNER MILLENNIUM Est Glomerular Filtration Rate 22(L) >=60 CERNER MILLENNIUM Comment: This estimated [...] Jarvis MD CHEMISTRY ORDERABLES Performing Organization Address [facility] Co de Phone Number [facility] * Thyroid Stimulating Immunoglobulin (01/04/2013 1:35 AM EDT) Pathologist [facility] <1.0 <=1.3 TSI index [facility] Comment: Test Performed by: [place] [address] Process Designer: Tulio Luna III, M.D. Blood specimen (specimen) 01/04/2013 1:35 AM EDT 01/06/2013 7:37 PM EDT Narrative Resulting Agency Comment Spec In Lab Dipak Robertson MD IMMUNOLOGY ORDERABL ES Performing Organization Address [facility] de Phone Number [facility] * CK (01/04/2013 1:35 AM EDT) Pathologist [facility] Creatine Kinase 45 0 - 160 unit/L [facility] Blood specimen (specimen) 01/04/2013 1:35 AM EDT 01/04/2013 1:45 AM EDT Narrative Resulting Agency Comment Spec In Lab Haris Jarvis MD CHEMISTRY ORDERABLES Performing Organization Address [facility] de Phone Number [facility] * Differential, Automated (01/04/2013 1:35 AM EDT) Pathologist [facility] Neutrophil % 64.5 34.0 - 71.0 % [facility] Neutrophil Absolute 3.58 1.50 - 6.30 x10(3)/mcL CERNER MILLENNIUM Lymph % 20.4 19.0 - 53.0 % CERNER MILLENNIUM Lymphocytes Abs 1.1 1.0 - 3.6 x10(3)/mcL CERNER MILLENNIUM Monocyte % 10.5 4.0 - 13.0 % CERNER MILLENNIUM Monocyte Abs 0.6 0.2 - 1.0 x10(3)/mcL CERNER MILLENNIUM Eos % 4.0 0.0 - 7.0 % CERNER MILLENNIUM Eosinophils Abs 0.2 0.0 - 0.5 x10(3)/mcL CERNER MILLENNIUM Basophil % 0.4 0.0 - 2.0 % CERNER MILLENNIUM Baso Absolute 0.0 0.0 - 0.2 x10(3)/mcL CERNER MILLENNIUM Immature Gran % 0.20 0.00 - 0.66 % [facility] Comment: Immature granulocytes(IG's)percentage and absolute count will include metamyelocytes, myelocytes, and promyelocytes. Blood smears from CBCs yielding IG's will be scanned manually for concordance. If this scan disagrees with the automated IG or if promyelocytes are noted, a manual differential will be performed. Immature Gran Absolute 0.01 0.00 - 0.05 x10(3)/mcL [facility] ISRRAELENNIUM Blood specimen (specimen) 01/04/2013 1:35 AM EDT 01/04/2013 1:44 AM EDT Haris Jarvis MD HEMATOLOGY ORDERABLE S [facility] * APTT (01/04/2013 1:35 AM EDT) Partial Thromboplastin Time 34 25 - 35 sec [facility] ARCOSENNIUM Comment: Recommended therapeutic PTT range for full dose unfractionated heparin is 80-114 seconds. Blood specimen (specimen) 01/04/2013 1:35 AM EDT 01/04/2013 1:43 AM EDT Narrative Resulting Agency Comment Spec In Lab Dipak Robertson MD HEMATOLOGY ORDERABL ES Performing Organization Address [facility] de Phone Number [facility] * (ABNORMAL) Prothrombin Time (01/04/2013 1:35 AM EDT) Prothrombin Time 20.0(H) 12.0 - 15.0 sec [facility] MILL[facility]UM Comment: [facility] Transfusion Committee Guidelines: INR less than 2.0, PTT less than OR equal to 43.5 seconds, or Fibrinogen greater than or equal to 100 mg/dl indicate adequate procoagulant activity for hemostasis in patients without underlying bleeding disorders. International Normalization Ratio 1.6(H) 0.9 - 1.1 CERNER MILLENNIUM Blood specimen (specimen) 01/04/2013 1:35 AM EDT 01/04/2013 1:43 AM EDT Narrative Resulting Agency Comment Spec In Lab Dipak Robertson MD HEMATOLOGY ORDERABL ES Performing Organization Address [facility] Phone Number [facility] * Lactate Dehydrogenase (01/04/2013 1:35 AM EDT) Lactate Dehydrogenase 220 110 - 220 unit/L [facility] Blood specimen (specimen) 01/04/2013 1:35 AM EDT 01/04/2013 1:44 AM EDT Narrative Resulting Agency Comment Spec In Lab Haris Jarvis MD CHEMISTRY ORDERABLES Performing Organization Address [facility] Phone Number [facility] * (ABNORMAL) BMP w/fasting Glucose (01/04/2013 1:35 AM EDT) Glucose Fasting 102(H) 65 - 99 mg/dL [facility] Comment: ?Fasting* Glucose Interpretive Criteria Normal ?65-99 [...] of Diabetes Mellitus, Position Statement from the [place] [employer]. ??Diabetes Care, Volume 33, Supplement 1, Jun 2009 Blood Urea Nitrogen 17 8 - 18 mg/dL CERNER MILLENNIUM Creatinine 2.36(H) 0.70 - 1.20 mg/dL CERNER MILLENNIUM Comment: Please note that the pediatric reference intervals supplied above were not validated at [facility]. Results from pediatric patients [...] 96(L) 98 - 107 mmol/L CERNER MILLENNIUM Carbon Dioxide 28 22 - 31 mmol/L CERNER MILLENNIUM Anion Gap 10 5 - 15 mmol/L CERNER MILLENNIUM Calcium 9.2 8.5 - 10.5 mg/dL CERNER MILLENNIUM Est Glomerular Filtration Rate 21(L) >=60 CERNER MILLENNIUM Comment: This estimated [...] Jarvis MD CHEMISTRY ORDERABLES Performing Organization Address [facility] Co de Phone Number BAR NOE * Vancomycin, trough (01/04/2013 1:35 AM EDT) Vancomycin, Trough 20.4 mg/L Corey NOE Comment: Therapeutic range for complicated infections [...] MD CHEMISTRY ORDERABLE S Performing Organization Address [facility] Co de Phone Number BAR NOE * (ABNORMAL) CBC (with Diff) (01/04/2013 1:35 AM EDT) White Blood Cell 5.5 4.0 - 10.0 x10(3)/mc L CERNER MILLENNIUM Red Blood Cell 3.12(L) 3.93 - 5.22 x10(6)/mc L CERNER MILLENNIUM Hemoglobin 9.5(L) 11.2 - 15.7 gm/dL CERNER MILLENNIUM Hematocrit 28.9(L) 34.0 - 45.0 % CERNER MILLENNIUM Mean Cell Volume 92.6 79.0 - 94.0 fL CERNER MILLENNIUM Mean Cell Hemoglobin 30.4 26.6 - 32.2 pg CERNER MILLENNIUM Mean Cell Hemoglobin Concentration 32.9 32.0 - 36.5 gm/dL CERNER MILLENNIUM Platelet 238 145 - 370 x10(3)/mc L CERNER MILLENNIUM RDW Standard Deviation 51.8(H) 35.0 - 46.0 fL CERNER MILLENNIUM RDW coefficient of variation 15.6(H) 10.9 - 14.4 % CERNER MILLENNIUM Mean Platelet Volume 10.5 9.0 - 12.0 fL CERELIO MILLENNIUM Blood specimen (specimen) 01/04/2013 1:35 AM EDT 01/04/2013 1:44 AM EDT Narrative Resulting Agency Comment Spec In Lab Haris Jarvis MD HEMATOLOGY ORDERABLE S BAR PINEDAIUM * Differential, Automated (01/03/2013 5:26 AM EDT) Neutrophil % 66.1 34.0 - 71.0 % CERNER MILLENNIUM Neutrophil Absolute 3.25 1.50 - 6.30 x10(3)/mcL CERNER MILLENNIUM Lymph % 20.9 19.0 - 53.0 % CERNER MILLENNIUM Lymphocytes Abs 1.0 1.0 - 3.6 x10(3)/mcL CERNER MILLENNIUM Monocyte % 8.7 4.0 - 13.0 % CERNER MILLENNIUM Monocyte Abs 0.4 0.2 - 1.0 x10(3)/mcL CERNER MILLENNIUM Eos % 3.7 0.0 - 7.0 % CERNER MILLENNIUM Eosinophils Abs 0.2 0.0 - 0.5 x10(3)/mcL CERNER MILLENNIUM Basophil [...] MD HEMATOLOGY ORDERABLE S Performing Organization Address City/[facility]/ZIP Co de Phone Number [facility] * Lactate Dehydrogenase (01/03/2013 5:26 AM EDT) [facility] Lactate Dehydrogenase 208 110 - 220 unit/L [facility] MILLENNIUM Blood specimen (specimen) 01/03/2013 5:26 AM EDT 01/03/2013 5:32 AM EDT Narrative Resulting Agency Comment Spec In Lab Haris Jarvis MD CHEMISTRY ORDERABLES Performing Organization Address [facility] Co de Phone Number [facility] * (ABNORMAL) BMP w/fasting Glucose (01/03/2013 5:26 AM EDT) [facility] Glucose Fasting 99 65 - 99 mg/dL [facility] Comment: ?Fasting* Glucose Interpretive Criteria Normal ?65-99 [...] of Diabetes Mellitus, Position Statement from the [place] [employer]. ??Diabetes Care, Volume 33, Supplement 1, Jun 2009 Blood Urea Nitrogen 13 8 - 18 mg/dL [facility] MILL[facility]NI[facility] Creatinine 2.54(H) 0.70 - 1.20 mg/dL CERNER MILLENNIUM Comment: Please note that the pediatric reference intervals supplied above were not validated at [facility]. Results from pediatric patients [...] 101 98 - 107 mmol/L CERNER MILLENNIUM Carbon Dioxide 27 22 - 31 mmol/L CERNER MILLENNIUM Anion Gap 11 5 - 15 mmol/L CERNER MILLENNIUM Calcium 9.2 8.5 - 10.5 mg/dL CERNER MILLENNIUM Est Glomerular Filtration Rate 20(L) >=60 CERNER MILLENNIUM Comment: This estimated [...] ORDERABLES BAR NOE * (ABNORMAL) Prothrombin Time (01/03/2013 5:26 AM EDT) Prothrombin Time 21.2(H) 12.0 - 15.0 sec BAR ARCOSENNIUM Comment: [facility] Transfusion Committee Guidelines: INR less than 2.0, PTT less than OR equal to 43.5 seconds, or Fibrinogen greater than or equal to 100 mg/dl indicate adequate procoagulant activity for hemostasis in patients without underlying bleeding disorders. International Normalization Ratio 1.8(H) 0.9 - 1.1 BAR MILLENNIUM Blood specimen (specimen) 01/03/2013 5:26 AM EDT 01/03/2013 5:32 AM EDT Narrative Resulting Agency Comment Spec In Lab Haris Jarvis MD HEMATOLOGY ORDERABLE S Performing Organization Address [facility] Co de Phone Number BAR ARCOSENNIUM * (ABNORMAL) CBC (with Diff) (01/03/2013 5:26 AM EDT) White Blood Cell 4.9 4.0 - 10.0 x10(3)/mc L CERNER MILLENNIUM Red Blood Cell 3.00(L) 3.93 - 5.22 x10(6)/mc L CERNER MILLENNIUM Hemoglobin 8.9(L) 11.2 - 15.7 gm/dL CERNER MILLENNIUM Hematocrit 27.6(L) 34.0 - 45.0 % CERNER MILLENNIUM Mean Cell Volume 92.0 79.0 - 94.0 fL CERNER MILLENNIUM Mean Cell Hemoglobin 29.7 26.6 - 32.2 pg CERNER MILLENNIUM Mean Cell Hemoglobin Concentration 32.2 32.0 - 36.5 gm/dL CERNER MILLENNIUM Platelet 230 145 - 370 x10(3)/mc L CERNER MILLENNIUM RDW Standard Deviation 50.9(H) 35.0 - 46.0 fL CERNER MILLENNIUM RDW coefficient of variation 15.2(H) 10.9 - 14.4 % CERNER MILLENNIUM Mean Platelet Volume 10.5 9.0 - 12.0 fL CERNER MILLENNIUM Blood specimen (specimen) 01/03/2013 5:26 AM EDT 01/03/2013 5:32 AM EDT Narrative Resulting Agency Comment Spec In Lab Haris Jarvis MD HEMATOLOGY ORDERABLE S Performing Organization Address [facility]/ZIP Co de Phone Number BAR PINEDAIUM * Vancomycin, trough (01/02/2013 3:09 PM EDT) Vancomycin, Trough 22.3 mg/L C ERNER MILLENNIUM Comment: Therapeutic range for complicated infections [...] Jarvis MD CHEMISTRY ORDERABLES Performing Organization Address City/[facility]/ZIP Co de Phone Number CERNER MILLENNIUM * (ABNORMAL) Lipase (01/02/2013 11:50 AM EDT) Lipase 192(H) 0 - 60 unit/L CERNER MILLENNIUM Blood specimen (specimen) 01/02/2013 11:50 AM EDT 01/02/2013 12:03 PM EDT Narrative Resulting Agency Comment Spec In Lab Dipak Robertson MD CHEMISTRY ORDERABLE S Performing Organization Address [facility] Co de Phone Number CERNER MILLENNIUM * Hepatic Function Panel (01/02/2013 11:50 AM EDT) Protein, Total 6.7 6.4 - 8.3 gm/dL CERNER MILLENNIUM Albumin 3.8 3.2 - 5.2 gm/dL CERNER MILLENNIUM Aspartate Aminotransferase 17 0 - 30 unit/L CERNER MILLENNIUM Alanine Aminotransferase 15 0 - 30 unit/L CERNER MILLENNIUM Alkaline Phosphatase 52 40 - 104 unit/L CERNER MILLENNIUM Bilirubin, Total 0.2 0.2 - 1.3 mg/dL CERNER MILLENNIUM Bilirubin, Direct 0.1 0.0 - 0.3 mg/dL CERNER MILLENNIUM Blood specimen (specimen) 01/02/2013 11:50 AM EDT 01/02/2013 11:56 AM EDT Narrative Resulting Agency Comment Spec In Lab Dipak Robertson MD CHEMISTRY ORDERABLE S CERNER MILLENNIUM * (ABNORMAL) Differential, Automated (01/02/2013 5:15 AM EDT) Neutrophil % 60.0 34.0 - 71.0 % CERNER MILLENNIUM Neutrophil Absolute 2.69 1.50 - 6.30 x10(3)/mc L CERNER MILLENNIUM Lymph % 22.0 19.0 - 53.0 % CERNER MILLENNIUM Lymphocytes Abs 1.0 1.0 - 3.6 x10(3)/mc L CERNER MILLENNIUM Monocyte % 13.6(H) 4.0 - 13.0 % CERNER MILLENNIUM Monocyte Abs 0.6 0.2 - 1.0 x10(3)/mc L CERNER MILLENNIUM Eos % 3.8 0.0 - 7.0 % CERNER MILLENNIUM Eosinophils Abs 0.2 0.0 - 0.5 x10(3)/mc L CERNER MILLENNIUM Basophil % 0.4 0.0 - 2.0 % CERNER MILLENNIUM Baso Absolute 0.0 0.0 - 0.2 x10(3)/mc L CERNER [...] Immature Gran Absolute 0.01 0.00 - 0.05 x10(3)/mc L CERNER MILLENNIUM Blood specimen (specimen) 01/02/2013 5:15 AM EDT 01/02/2013 5:22 AM EDT Haris Jarvis MD HEMATOLOGY ORDERABLE S BAR NOE * Beta-2 glycoprotein antibodies (01/02/2013 5:15 AM EDT) Beta 2 Glycoprotein, IgG <21 <=20 unit(s) CERNER MILLENNIUM Comment: Ranges ?Units ----- ? ----- Normal ? <21 Low Positive (+) ?21-50 Moderate Positive (+) ? 51-100 High Positive (+) ?>100 Beta 2 Glycoprotein, IgM <21 <=20 unit(s) [facility] Comment: Ranges ? Units ----- ?----- Normal ?<21 Low Positive (+) ? 21-50 Moderate Positive (+) ?51-100 High Positive (+) ? >100 B2GPI Interp No comment [facility] Blood specimen (specimen) 01/02/2013 5:15 AM EDT 01/02/2013 8:14 AM EDT Narrative Resulting Agency Comment Spec In Lab Dipak Robertson MD IMMUNOLOGY ORDERABL [facility] * Cardiolipin Antibody Screen (01/02/2013 5:15 AM EDT) Cardiolipin Antibody IgG <23 <=22 GPL unit(s) [facility] Comment: Ranges ? GPL ------- ? ------ Normal ?<23 Low Positive ? 23-35 Moderate Positive ?36-50 High Positive ? >50 Cardiolipin Antibody IgM <11 <=10 MPL unit(s) [facility] Comment: Ranges ?MPL ----- ?----- Normal ?<11 Low Positive ? 11-20 Moderate Positive ?21-30 High Positive ? >30 Blood specimen (specimen) 01/02/2013 5:15 AM EDT 01/02/2013 8:14 AM EDT Narrative Resulting Agency Comment Spec In Lab Dipak Robertson MD IMMUNOLOGY ORDERABL ES Performing Organization Address [facility] de Phone Number [facility] * (ABNORMAL) Lactate Dehydrogenase (01/02/2013 5:15 AM EDT) Lactate Dehydrogenase 229(H) 110 - 220 unit/L [facility] Blood specimen (specimen) 01/02/2013 5:15 AM EDT 01/02/2013 5:22 AM EDT Narrative Resulting Agency Comment Spec In Lab Haris Jarvis MD CHEMISTRY ORDERABLES Performing Organization Address [facility] Co de Phone Number [facility] * (ABNORMAL) BMP w/fasting Glucose (01/02/2013 5:15 AM EDT) Glucose Fasting 101(H) 65 - 99 mg/dL CERNER MILLENNIUM Comment: [...] of Diabetes Mellitus, Position Statement from the [place] [employer]. ??Diabetes Care, Volume 33, Supplement 1, Jun 2009 Blood Urea Nitrogen 10 8 - 18 mg/dL CERNER MILLENNIUM Creatinine 2.18(H) 0.70 - 1.20 mg/dL CERNER MILLENNIUM Comment: Please note that the pediatric reference intervals supplied above were not validated at [facility]. Results from pediatric patients [...] 102 98 - 107 mmol/L CERNER MILLENNIUM Carbon Dioxide 27 22 - 31 mmol/L CERNER MILLENNIUM Anion Gap 10 5 - 15 mmol/L CERNER MILLENNIUM Calcium 9.2 8.5 - 10.5 mg/dL CERNER MILLENNIUM Est Glomerular Filtration Rate 24(L) >=60 CERNER MILLENNIUM Comment: This estimated [...] Jarvis MD CHEMISTRY ORDERABLES Performing Organization Address [facility] de Phone Number BAR NOE * (ABNORMAL) Prothrombin Time (01/02/2013 5:15 AM EDT) Prothrombin Time 21.1(H) 12.0 - 15.0 sec BAR PINEDAIUM Comment: [facility] Transfusion Committee Guidelines: INR less than 2.0, PTT less than OR equal to 43.5 seconds, or Fibrinogen greater than or equal to 100 mg/dl indicate adequate procoagulant activity for hemostasis in patients without underlying bleeding disorders. International Normalization Ratio 1.8(H) 0.9 - 1.1 BAR PINEDAIUM Blood specimen (specimen) 01/02/2013 5:15 AM EDT 01/02/2013 5:22 AM EDT Narrative Resulting Agency Comment Spec In Lab Haris Jarvis MD HEMATOLOGY ORDERABLE S Performing Organization Address [facility] Phone Number BAR NOE * Lupus Anticoagulant (01/02/2013 5:15 AM EDT) Lupus Anticoagulant Neg Neg BAR PINEDAIUM Blood specimen (specimen) 01/02/2013 5:15 AM EDT 01/02/2013 5:22 AM EDT Narrative Resulting Agency Comment Spec In Lab Dipak Robertson MD HEMATOLOGY ORDERABL ES Performing Organization Address [facility] de Phone Number BAR NOE * (ABNORMAL) CBC (with Diff) (01/02/2013 5:15 AM EDT) White Blood Cell 4.5 4.0 - 10.0 x10(3)/mc L CERNER MILLENNIUM Red Blood Cell 3.05(L) 3.93 - 5.22 x10(6)/mc L CERNER MILLENNIUM Hemoglobin 9.0(L) 11.2 - 15.7 gm/dL CERNER MILLENNIUM Hematocrit 27.8(L) 34.0 - 45.0 % CERNER MILLENNIUM Mean Cell Volume 91.1 79.0 - 94.0 fL CERNER MILLENNIUM Mean Cell Hemoglobin 29.5 26.6 - 32.2 pg CERNER MILLENNIUM Mean Cell Hemoglobin Concentration 32.4 32.0 - 36.5 gm/dL CERNER MILLENNIUM Platelet 226 145 - 370 x10(3)/mc L CERNER MILLENNIUM RDW Standard Deviation 52.0(H) 35.0 - 46.0 fL CERNER MILLENNIUM RDW coefficient of variation 15.5(H) 10.9 - 14.4 % CERNER MILLENNIUM Mean Platelet Volume 10.4 9.0 - 12.0 fL CERNER MILLENNIUM Blood specimen (specimen) 01/02/2013 5:15 [...] significant pulmonary edema. Persistent bilateral pleural effusions. Dipak Robertson MD IMG DX ORDERABLES * EKG 12 Lead (01/01/2013 9:22 AM EDT) [facility] Ventricular rate 79 BPM MUSE SYSTEM Atrial Rate 79 BPM MUSE SYSTEM P-R Interval 120 ms MUSE SYSTEM QRS Duration 76 ms MUSE SYSTEM Q-T Interval 500 ms MUSE SYSTEM QTC Calculated (Bezet) 573 ms MUSE SYSTEM Calculated P [place] 61 degrees MUSE SYSTEM Calculated R [place] 50 degrees MUSE SYSTEM Calculated T [place] 162 degrees MUSE SYSTEM INTERPRETATION Normal sinus [...] AM EDT Haris Jarvis MD ECG ORDERABLES MUSE SYSTEM * Free Thyroxine Index (01/01/2013 4:25 AM EDT) [facility] Free Thyroxine Index 7.6 4.5 - 9.5 mcg/dL [facility] Comment: Females: 5. 5-10.5 mcg/dL Blood specimen (specimen) 01/01/2013 4:25 AM EDT 01/01/2013 9:00 AM EDT Narrative Resulting Agency Comment Spec In Lab Haris Jarvis MD CHEMISTRY ORDERABLES [facility] * T4 (01/01/2013 4:25 AM EDT) T4 Total 7.6 5.1 - 10.8 mcg/dL [facility] Comment: Reference Range: Cord Blood: ??6.9-14.4 mcg/dL Females: ??7.2-14.2 mcg/dL Pediatric ranges: ??Interpret with caution-ranges have not been verified Blood specimen (specimen) 01/01/2013 4:25 AM EDT 01/01/2013 9:00 AM EDT Narrative Resulting Agency Comment Spec In Lab Haris Jarvis MD CHEMISTRY ORDERABLES Performing Organization Address [facility] Co de Phone Number [facility] * T Uptake (01/01/2013 4:25 AM EDT) Pathologist [facility] T Uptake 1.00 0.80 - 1.30 ratio [facility] Comment: Tup assay is directly proportional to Thyroid binding protein concentration, thus FT4 Index = TT4/Tup. Cord Blood Reference Range: ??0.74-1.28. Blood specimen (specimen) 01/01/2013 4:25 AM EDT 01/01/2013 9:00 AM EDT Narrative Resulting Agency Comment Spec In Lab Haris Jarvis MD CHEMISTRY ORDERABLES Performing Organization Address [facility] de Phone Number [facility] * T3 (01/01/2013 4:25 AM EDT) T3 Total 89 75 - 170 ng/dL [facility] Blood specimen (specimen) 01/01/2013 4:25 AM EDT 01/01/2013 9:00 AM EDT Narrative Resulting Agency Comment Spec In Lab Haris Jarvis MD CHEMISTRY ORDERABLES Performing Organization Address [facility] Co de Phone Number [facility] * TSH (01/01/2013 4:25 AM EDT) Thyroid Stimulating Hormone 1.38 0.27 - 4.20 mcIU/mL [facility] Blood specimen (specimen) 01/01/2013 4:25 AM EDT 01/01/2013 9:00 AM EDT Narrative Resulting Agency Comment Spec In Lab Haris Jarvis MD CHEMISTRY ORDERABLES Performing Organization Address City/[facility] Co de Phone Number [facility] * T4, free (01/01/2013 4:25 AM EDT) Free T4 1.15 0.90 - 1.60 ng/dL [facility] Blood specimen (specimen) 01/01/2013 4:25 AM EDT 01/01/2013 4:33 AM EDT Narrative Resulting Agency Comment Spec In Lab Haris Jarvis MD CHEMISTRY ORDERABLES Performing Organization Address [facility] de Phone Number [facility] * (ABNORMAL) Lipid panel (fasting) (01/01/2013 4:25 AM EDT) [facility] Cholesterol, Total 143 <=199 mg/dL [facility] Comment: Recommendations of the NCEP Adult Treatment Panel for the following risk cutoff thresholds for the [place] population: Desirable: <200 mg/dL Borderline High: 200-239 mg/dL High: > or = 240 mg/dL Triglyceride 118 <=149 mg/dL [facility] Comment: Reference Range: Normal triglycerides: ??<150 mg/dL Borderline high: ??150-199 mg/dL High: ??200-499 mg/dL Very high: ??>de=370 mg/dL SNEHA 2001; 285(19):[phone] HDL Cholesterol 38(L) >=40 mg/dL [facility] Comment: Reference range: ??Low HDL: ?? < 40 mg/dL ??Normal: ?40-60 mg/dL ??Desirable: > 60 mg/dL SNEHA 2001; 285(19):[phone] LDL Cholesterol 81 <=99 mg/dL [facility] Comment: Reference range: ?? Optimal: ?<100 mg/dL ?? Near Optimal/Above Optimal: ?? 100-129 mg/dL ?? Borderline high: ?130-159 mg/dL ?? High: ? 160-189 mg/dL ?? Very high: ?>zw=511 mg/dL SNEHA 2001: 285(19):1838-3458 Cholesterol/HDL Ratio 3.8 ratio CERNER MILLENNIUM Comment: A Cholesterol to HDL ratio below 4:1 is desirable. ??Studies suggest that increased CAD risk occurs at ratios above 5 for females and above 6 for men. ? [place] [employer] Association ??(http://www.americanheart.org) ? Mariela Int Med, 1994; 121:641 ? AM J Med, 1998; 105(1A):48S Blood specimen (specimen) 01/01/2013 4:25 AM EDT 01/01/2013 4:33 AM EDT Narrative Resulting Agency Comment Spec In Lab Haris Jarvis MD CHEMISTRY ORDERABLES BAR PINEDAIUM * (ABNORMAL) Differential, Automated (01/01/2013 4:25 AM EDT) Neutrophil % 67.8 34.0 - 71.0 % CERNER MILLENNIUM Neutrophil Absolute 3.42 1.50 - 6.30 x10(3)/mc L CERNER MILLENNIUM Lymph % 17.1(L) 19.0 - 53.0 % CERNER MILLENNIUM Lymphocytes Abs 0.9(L) 1.0 - 3.6 x10(3)/mc L CERNER MILLENNIUM Monocyte % 11.1 4.0 - 13.0 % CERNER MILLENNIUM Monocyte Abs 0.6 0.2 - 1.0 x10(3)/mc L CERNER MILLENNIUM Eos % 3.0 0.0 - 7.0 % CERNER MILLENNIUM Eosinophils Abs 0.2 0.0 - 0.5 x10(3)/mc L CERNER MILLENNIUM Basophil % 0.8 0.0 - 2.0 % CERNER MILLENNIUM Baso Absolute 0.0 0.0 - 0.2 x10(3)/mc L CERNER [...] Immature Gran Absolute 0.01 0.00 - 0.05 x10(3)/mc L CERNER MILLENNIUM Blood specimen (specimen) 01/01/2013 4:25 AM EDT 01/01/2013 4:28 AM EDT Haris Jarvis MD HEMATOLOGY ORDERABLE S Performing Organization Address [facility] de Phone Number BAR PINEDAIUM * (ABNORMAL) pro-Brain Natriuretic Peptide (01/01/2013 4:25 AM EDT) NT-proBNP 51863(H) <=125 pg/mL BAR PINEDAIUM Blood specimen (specimen) 01/01/2013 4:25 AM EDT 01/01/2013 4:28 AM EDT Narrative Resulting Agency Comment Spec In Lab Haris Jarvis MD CHEMISTRY ORDERABLES Performing Organization Address [facility] de Phone Number BAR NOE * (ABNORMAL) Lactate Dehydrogenase (01/01/2013 4:25 AM EDT) Lactate Dehydrogenase 235(H) 110 - 220 unit/L BAR ARCOSENNIUM Blood specimen (specimen) 01/01/2013 4:25 AM EDT 01/01/2013 4:28 AM EDT Narrative Resulting Agency Comment Spec In Lab Haris Jarvis MD CHEMISTRY ORDERABLES Performing Organization Address [facility] Co de Phone Number CERNER MILLENNIUM * (ABNORMAL) BMP w/fasting Glucose (01/01/2013 4:25 AM EDT) [facility] Glucose Fasting 95 65 - 99 mg/dL CERNER MILLENNIUM Comment: [...] of Diabetes Mellitus, Position Statement from the [place] [employer]. ??Diabetes Care, Volume 33, Supplement 1, Jun 2009 Blood Urea Nitrogen 11 8 - 18 mg/dL CERNER MILLENNIUM Creatinine 2.06(H) 0.70 - 1.20 mg/dL CERNER MILLENNIUM Comment: Please note that the pediatric reference intervals supplied above were not validated at [facility]. Results from pediatric patients [...] - 107 mmol/L CERNER MILLENNIUM Carbon Dioxide 27 22 - 31 mmol/L CERNER MILLENNIUM Anion Gap 11 5 - 15 mmol/L CERNER MILLENNIUM Calcium 9.1 8.5 - 10.5 mg/dL CERNER MILLENNIUM Est Glomerular Filtration Rate 25(L) >=60 CERNER MILLENNIUM Comment: This estimated [...] Jarvis MD CHEMISTRY ORDERABLES Performing Organization Address [facility] Co de Phone Number [facility] HealthcareELIO Onyvax * (ABNORMAL) Cardiac Enzymes (01/01/2013 4:25 AM EDT) Troponin-T 0.06(H) <=0.03 ng/mL BAR [employer]Post Comment: 0.03 ng/mL: Represents the 99th percentile upper reference limit for normals. >0.03 ng/mL: Elevated cardiac troponin T level indicative of myocardial damage. Diagnosis of acute, evolving or recent AK requires a typical rise and gradual fall [...] consensus document of the Joint Society of Cardiology/[place] College [employer] Committee for the redefinition of myocardial infarction. Journal of the [place] College [employer]iology 2000; 36: 959-969] Creatine Kinase 35 0 - 160 unit/L BAR [employer]MEKHI Blood specimen (specimen) 01/01/2013 4:25 AM EDT 01/01/2013 4:28 AM EDT Narrative Resulting Agency Comment Spec In Lab Haris Jarvis MD CHEMISTRY ORDERABLES Performing Organization Address [facility] Co de Phone Number BAR NOE * (ABNORMAL) Prothrombin Time (01/01/2013 4:25 AM EDT) Prothrombin Time 21.4(H) 12.0 - 15.0 sec CERNER MILLENNIUM Comment: [facility] Transfusion Committee Guidelines: INR less than 2.0, PTT less than OR equal to 43.5 seconds, or Fibrinogen greater than or equal to 100 mg/dl indicate adequate procoagulant activity for hemostasis in patients without underlying bleeding disorders. International Normalization Ratio 1.8(H) 0.9 - 1.1 CERNER MILLENNIUM Blood specimen (specimen) 01/01/2013 4:25 AM EDT 01/01/2013 4:28 AM EDT Narrative Resulting Agency Comment Spec In Lab Haris Jarvis MD HEMATOLOGY ORDERABLE S BAR NOE * (ABNORMAL) CBC (with Diff) (01/01/2013 4:25 AM EDT) White Blood Cell 5.0 4.0 - 10.0 x10(3)/mc L CERNER MILLENNIUM Red Blood Cell 2.92(L) 3.93 - 5.22 x10(6)/mc L CERNER MILLENNIUM Hemoglobin 8.8(L) 11.2 - 15.7 gm/dL CERNER MILLENNIUM Hematocrit 26.3(L) 34.0 - 45.0 % CERNER MILLENNIUM Mean Cell Volume 90.1 79.0 - 94.0 fL CERNER MILLENNIUM Mean Cell Hemoglobin 30.1 26.6 - 32.2 pg CERNER MILLENNIUM Mean Cell Hemoglobin Concentration 33.5 32.0 - 36.5 gm/dL CERNER MILLENNIUM Platelet 247 145 - 370 x10(3)/mc L CERNER MILLENNIUM RDW Standard Deviation 50.5(H) 35.0 - 46.0 fL CERNER MILLENNIUM RDW coefficient of variation 15.4(H) 10.9 - 14.4 % CERNER MILLENNIUM Mean Platelet Volume 10.2 9.0 - 12.0 fL CERNER MILLENNIUM Blood specimen (specimen) 01/01/2013 4:25 AM EDT 01/01/2013 4:28 AM EDT Narrative Resulting Agency Comment Spec In Lab Haris Jarvis MD HEMATOLOGY ORDERABLE S Performing Organization Address [facility] de Phone Number BAR NEO * (ABNORMAL) Cardiac Enzymes (12/31/2012 7:55 PM EDT) Troponin-T 0.06(H) <=0.03 ng/mL [facility] Comment: 0.03 ng/mL: Represents the 99th percentile upper reference limit for normals. >0.03 ng/mL: Elevated cardiac troponin T level indicative of myocardial damage. Diagnosis of acute, evolving or recent AK requires a typical rise and gradual fall [...] consensus document of the Joint Society of Cardiology/[place] [employer] Committee for the redefinition of myocardial infarction. Journal of the [place] College [employer]iology 2000; 36: 959-969] Creatine Kinase 46 0 - 160 unit/L [facility]HO[facility] Blood specimen (specimen) 12/31/2012 7:55 PM EDT 12/31/2012 8:03 PM EDT Narrative Resulting Agency Comment Spec In Lab Haris Jarvis MD CHEMISTRY ORDERABLES Performing Organization Address [facility] Co de Phone Number BAR NOE * Echo Transthoracic (Complete) (12/31/2012 3:06 PM EDT) Pathologist [facility] EF 40 HEARTLAB SYSTEM Anatomical Region Laterality Modality Other 12/31/2012 Narrative 12/31/2012 3:46 PM EDT Procedure: ? Transthoracic Echocardiogram Patient: ? KAREEM BENOIT N ? (Age): 1960(52) Med Rec#: ?[id number] ? Sex: ?F ? Site Loc: ?[facility] ? Ht / Wt: ??170(cm)/64(kg) Pt. Loc: ? Adult Floor ?BSA: ?1.74 Study Date: ?12/31/2012 ? Pt. Type: Inpatient Tape: ? Referring: Haris Jarvis Referring: TAMMY BAE Inspector Watch Assembly: Rob Rubalcava [facility] Interpreting Fellow: Regis Silva ([id number]) Diagnosis: ??Shortness of breath (786.05) CPT Code(s): ??Echo Full (37239), ??Spectral Doppler (84380), ??Color Doppler (75694), Indication(s): ??Shortness of breath Rhythm: HR ?BP [...] ? Mid-Inferior ?Hypokinetic ? Mid-Inferoseptal ?Hypokinetic ? [place]-Septal ? Hypokinetic ? [place]-Anterior ? Hypokinetic ? [place]-Lateral ?Hypokinetic ? [place]-Inferior ? Hypokinetic ? [place]-Tip ?Hypokinetic ? Chambers ?Value ?Units (Range) ? [...] 12/31/2012 15:45:49 Images reviewed and interpretation verified [facility] Cardiac Ultrasound Laboratory Procedure Note Adolph Garcia MD - 12/31/2012 Procedure: Transthoracic Echocardiogram Patient: KAREEM Kay DOB(Age): 1960(52) Med Rec#: [id number] Sex: F Site Loc: [facility] Ht / Wt: 170(cm)/64(kg) Pt. Loc: Adult Floor BSA: 1.74 Study Date: 12/31/2012 Pt. Type: Inpatient Tape: Referring: Haris Jarvis Referring: TAMMY BAE Inspector Watch Assembly: Rob Rubalcava [facility] Interpreting Fellow: Regis Silva ([id number]) Diagnosis: Shortness of breath (786.05) CPT Code(s): Echo Full (19714), Spectral Doppler (80890), Color Doppler (67906), Indication(s): Shortness of breath Rhythm: HR BP [...] change in the inferior vena cava dimension. [facility] Two-dimensional echo, spectral Doppler and color Doppler performed. Wall Motion: Segment Name Rest Base-Anteroseptal Hypokinetic Base-Anterior Hypokinetic Base-Anterolateral Hypokinetic Base-Posterolateral Hypokinetic Base-Inferior Hypokinetic Base-Inferoseptal Hypokinetic Mid-Anteroseptal Hypokinetic Mid-Anterior Hypokinetic Mid-Anterolateral Hypokinetic Mid-Posterolateral Hypokinetic Mid-Inferior Hypokinetic Mid-Inferoseptal Hypokinetic [place]-Septal Hypokinetic [place]-Anterior Hypokinetic [place]-Lateral Hypokinetic [place]-Inferior Hypokinetic [place]-Tip Hypokinetic Chambers Value Units (Range) EF Bi-p [...] 12/31/2012 15:45:49 Images reviewed and interpretation verified [facility] Cardiac Ultrasound Laboratory Haris Jarvis MD ECHO ORDERABLES * Differential, Automated (12/31/2012 4:00 AM EDT) Neutrophil % 65.7 34.0 - 71.0 % CERNER MILLENNIUM Neutrophil Absolute 4.74 1.50 - 6.30 x10(3)/mcL CERNER MILLENNIUM Lymph % 22.2 19.0 - 53.0 % CERNER MILLENNIUM Lymphocytes Abs 1.6 1.0 - 3.6 x10(3)/mcL CERNER MILLENNIUM Monocyte % 8.9 4.0 - 13.0 % CERNER MILLENNIUM Monocyte Abs 0.6 0.2 - 1.0 x10(3)/mcL CERNER MILLENNIUM Eos % 2.5 0.0 - 7.0 % CERNER MILLENNIUM Eosinophils Abs 0.2 0.0 - 0.5 x10(3)/mcL CERNER MILLENNIUM Basophil [...] differential will be performed. Immature Gran Absolute 0.02 0.00 - 0.05 x10(3)/mcL CERNER MILLENNIUM Blood specimen (specimen) 12/31/2012 4:00 AM EDT 12/31/2012 4:32 AM EDT Haris Jarvis MD HEMATOLOGY ORDERABLE S [facility] ISRRAELENNIUM * (ABNORMAL) BMP w/fasting Glucose (12/31/2012 4:00 AM EDT) Glucose Fasting 97 65 - 99 mg/dL CERNER MILLENNIUM Comment: [...] of Diabetes Mellitus, Position Statement from the [place] [employer]. ??Diabetes Care, Volume 33, Supplement 1, Jun 2009 Blood Urea Nitrogen 11 8 - 18 mg/dL CERNER MILLENNIUM Creatinine 2.14(H) 0.70 - 1.20 mg/dL CERNER MILLENNIUM Comment: Please note that the pediatric reference intervals supplied above were not validated at [facility]. Results from pediatric patients [...] - 107 mmol/L CERNER MILLENNIUM Carbon Dioxide 25 22 - 31 mmol/L CERNER MILLENNIUM Anion Gap 11 5 - 15 mmol/L CERNER MILLENNIUM Calcium 8.9 8.5 - 10.5 mg/dL CERNER MILLENNIUM Est Glomerular Filtration Rate 24(L) >=60 CERNER MILLENNIUM Comment: This estimated [...] Jarvis MD CHEMISTRY ORDERABLES Performing Organization Address [facility] Co de Phone Number BAR PINEDAIUM * (ABNORMAL) Prothrombin Time (12/31/2012 4:00 AM EDT) Prothrombin Time 20.3(H) 12.0 - 15.0 sec CERNER MILLENNIUM Comment: [facility] Transfusion Committee Guidelines: INR less than 2.0, PTT less than OR equal to 43.5 seconds, or Fibrinogen greater than or equal to 100 mg/dl indicate adequate procoagulant activity for hemostasis in patients without underlying bleeding disorders. International Normalization Ratio 1.7(H) 0.9 - 1.1 CERNER MILLENNIUM Blood specimen (specimen) 12/31/2012 4:00 AM EDT 12/31/2012 4:32 AM EDT Narrative Resulting Agency Comment Spec In Lab Haris Jarvis MD HEMATOLOGY ORDERABLE S Performing Organization Address [facility] de Phone Number BAR NOE * (ABNORMAL) CBC (with Diff) (12/31/2012 4:00 AM EDT) White Blood Cell 7.2 4.0 - 10.0 x10(3)/mc L CERNER MILLENNIUM Red Blood Cell 3.07(L) 3.93 - 5.22 x10(6)/mc L CERNER MILLENNIUM Hemoglobin 9.1(L) 11.2 - 15.7 gm/dL CERNER MILLENNIUM Hematocrit 27.8(L) 34.0 - 45.0 % CERNER MILLENNIUM Mean Cell Volume 90.6 79.0 - 94.0 fL CERNER MILLENNIUM Mean Cell Hemoglobin 29.6 26.6 - 32.2 pg CERNER MILLENNIUM Mean Cell Hemoglobin Concentration 32.7 32.0 - 36.5 gm/dL CERNER MILLENNIUM Platelet 317 145 - 370 x10(3)/mc L CERNER MILLENNIUM RDW Standard Deviation 51.8(H) 35.0 - 46.0 fL CERNER MILLENNIUM RDW coefficient of variation 15.6(H) 10.9 - 14.4 % CERNER MILLENNIUM Mean Platelet Volume 10.9 9.0 - 12.0 fL CERNER MILLENNIUM Blood specimen (specimen) 12/31/2012 4:00 AM EDT 12/31/2012 4:32 AM EDT Narrative Resulting Agency Comment Spec In Lab Haris Jarvis MD HEMATOLOGY ORDERABLE S CERNER MILLENNIUM * (ABNORMAL) Differential, Automated (12/30/2012 4:17 PM EDT) Neutrophil % 71.3(H) 34.0 - 71.0 % CERNER MILLENNIUM Neutrophil Absolute 4.46 1.50 - 6.30 x10(3)/mc L CERNER MILLENNIUM Lymph % 16.6(L) 19.0 - 53.0 % CERNER MILLENNIUM Lymphocytes Abs 1.0 1.0 - 3.6 x10(3)/mc L CERNER MILLENNIUM Monocyte % 9.1 4.0 - 13.0 % CERNER MILLENNIUM Monocyte Abs 0.6 0.2 - 1.0 x10(3)/mc L CERNER MILLENNIUM Eos % 2.4 0.0 - 7.0 % CERNER MILLENNIUM Eosinophils Abs 0.2 0.0 - 0.5 x10(3)/mc L CERNER MILLENNIUM Basophil % 0.3 0.0 - 2.0 % CERNER MILLENNIUM Baso Absolute 0.0 0.0 - 0.2 x10(3)/mc L CERNER [...] differential will be performed. Immature Gran Absolute 0.02 0.00 - 0.05 x10(3)/mc L CERNER MILLENNIUM Blood specimen (specimen) 12/30/2012 4:17 PM EDT 12/30/2012 4:30 PM EDT Haris Jarvis MD HEMATOLOGY ORDERABLE S CERNER MILLENNIUM * (ABNORMAL) CBC (with Diff) (12/30/2012 4:17 PM EDT) White Blood Cell 6.3 4.0 - 10.0 x10(3)/mc L CERNER MILLENNIUM Red Blood Cell 2.96(L) 3.93 - 5.22 x10(6)/mc L CERNER MILLENNIUM Hemoglobin 9.1(L) 11.2 - 15.7 gm/dL CERNER MILLENNIUM Hematocrit 26.5(L) 34.0 - 45.0 % CERNER MILLENNIUM Mean Cell Volume 89.5 79.0 - 94.0 fL CERNER MILLENNIUM Mean Cell Hemoglobin 30.7 26.6 - 32.2 pg CERNER MILLENNIUM Mean Cell Hemoglobin Concentration 34.3 32.0 - 36.5 gm/dL CERNER MILLENNIUM Platelet 289 145 - 370 x10(3)/mc L CERNER MILLENNIUM RDW Standard Deviation 50.5(H) 35.0 - 46.0 fL CERNER MILLENNIUM RDW coefficient of variation 15.5(H) 10.9 - 14.4 % CERNER MILLENNIUM Mean Platelet Volume 10.5 9.0 - 12.0 fL CERNER MILLENNIUM Blood specimen (specimen) 12/30/2012 4:17 PM EDT 12/30/2012 4:30 PM EDT Narrative Resulting Agency Comment Spec In Lab Haris Jarvis MD HEMATOLOGY ORDERABLE S CERELIO ARCOSENNIUM * (ABNORMAL) BMP w/fasting Glucose (12/30/2012 4:17 PM EDT) [facility] Glucose Fasting 100(H) 65 - 99 mg/dL CERNER MILLENNIUM Comment: [...] of Diabetes Mellitus, Position Statement from the [place] [employer]. ??Diabetes Care, Volume 33, Supplement 1, Jun 2009 Blood Urea Nitrogen 11 8 - 18 mg/dL CERNER MILLENNIUM Creatinine 2.02(H) 0.70 - 1.20 mg/dL CERNER MILLENNIUM Comment: Please note that the pediatric reference intervals supplied above were not validated at [facility]. Results from pediatric patients [...] 102 98 - 107 mmol/L CERNER MILLENNIUM Carbon Dioxide 25 22 - 31 mmol/L CERNER MILLENNIUM Anion Gap 12 5 - 15 mmol/L CERNER MILLENNIUM Calcium 9.1 8.5 - 10.5 mg/dL CERNER MILLENNIUM Est Glomerular Filtration Rate 26(L) >=60 CERNER MILLENNIUM Comment: This estimated [...] Jarvis MD CHEMISTRY ORDERABLES Performing Organization Address City/State/[facility] Co de Phone Number BAR NOE * XR chest routine PA [...] (ABNORMAL) Prothrombin Time (12/30/2012 3:29 PM EDT) Prothrombin Time 18.9(H) 12.0 - 15.0 sec CERNER MILLENNIUM Comment: [facility] Transfusion Committee Guidelines: INR less than 2.0, PTT less than OR equal to 43.5 seconds, or Fibrinogen greater than or equal to 100 mg/dl indicate adequate procoagulant activity for hemostasis in patients without underlying bleeding disorders. International Normalization Ratio 1.5(H) 0.9 - 1.1 CERNER MILLENNIUM Blood specimen (specimen) 12/30/2012 3:29 PM EDT 12/30/2012 3:39 PM EDT Narrative Resulting Agency Comment Spec In Lab Haris Jarvis MD HEMATOLOGY ORDERABLE S BAR ARCOSTherma-WaveIUM * Vancomycin, trough (12/30/2012 3:29 PM EDT) Vancomycin, Trough 19.2 mg/L C ERNER MILLENNIUM Comment: Therapeutic range for complicated infections [...] Haris Jarvis MD CHEMISTRY ORDERABLES CERNER MILLENNIUM documented in this encounter Visit Diagnoses Diagnosis [...] on Sun12/30/12 at 1425, Until Sun01/05/13 at 1414, Pain, Fever, Administer for temperature [...] Sun01/02/13 at 1039, Until Sun01/05/13 at 1414, Heartburn, Routine Given 01/04/2013 12:46 [...] Oral, 2 TIMES DAILY PRN, Starting on Ninfa 01/02/13 at 1039, Until 01/05/13 at 1414, GI upset, pain, Routine Given [...] 10 mg, Oral, ONCE, 1 dose, On 01/04/13 at 1700, Routine Given 01/04/2013 5:44 PM [...] mg, Oral, ONCE, 1 dose, On Ninfa 01/02/13 at 1700, Routine Given 01/02/2013 4:33 PM [...] Lora RN) 0609 (Given - Provider: Radha Burgso, DRU) 0626 (Given - Provider: Radha Burgos, DRU) furosemide (LASIX) tablet 40 mg (CANCELED) 40 mg, Oral, DAILY, First dose on Sun01/01/13 at 0900, Until Discontinued, Routine 0848 (Given - Provider: Odalis Lora RN) lisinopril (PRINIVIL;ZESTRIL) tablet 2.5 mg 2.5 mg, Oral, DAILY, First dose on Sun01/02/13 at 0900, Until Discontinued, Routine 0848 (Given - Provider: Odalis Lora RN) 0927 (Given - Provider: Bhumi Duenas, DRU) 0811 (Given - Provider: Sera Lucas, DRU) metoprolol succinate (TOPROL-XL) XL tablet 100 mg 100 mg, Oral, DAILY, First dose on Sun01/03/13 at 1445, Until Discontinued, Routine 1708 (Given - Provider: Brittany Burt, DRU) 0928 (Given - Provider: Bhumi Duenas RN) 0811 [...] Odalis Chung RN)1445 (Given - Provider: Brittany Burt, DRU) 0140 (Given - Provider: Radha Burgos, DRU)1445 (Given - Provider: Bhumi Duenas RN) 0245 (Given - Provider: Radha Burgos, DRU) warfarin (COUMADIN) tablet 10 mg (COMPLETED) 10 mg, Oral, ONCE, 1 dose, On Sun01/04/13 at 1700, Routine 1744 (Given - Provider: Bhumi Duenas RN) warfarin (COUMADIN) tablet 7.5 mg (COMPLETED) 7.5 mg, Oral, ONCE, 1 dose, On Sun01/03/13 at 1700, Routine 1708 (Given - Provider: Brittany Burt, DRU) PRN Medication Order 01/03/2013 01/04/2013 01/05/2013 acetaminophen (TYLENOL) tablet 1,000 mg 1,000 mg, Oral, EVERY 6 HOURS PRN, Starting on 12/30/12 at 1425, Until 01/05/13 at 1414, Pain, Fever, Administer for temperature greater than or equal to 38.2 degrees celsius. Maximum daily dose of acetaminophen from all sources not to exceed 4,000 mg., Routine 0442 (Given - Provider: Radha Burgos RN) alum-mag hydroxide-simeth (MAALOX) 200-200-20 mg/5 mL oral suspension 10 mL 10 mL, Oral, 3 TIMES DAILY PRN, Starting on Sun01/02/13 at 1039, Until 01/05/13 at 1414, Heartburn, Routine 0533 (Given - Provider: Odalis Chung RN)1218 (Given - Provider: Odalis Lora, DRU) 1246 (Given - Provider: Bhumi Duenas RN) calcium carbonate (TUMS) chewable tablet 500-1,000 mg 500-1,000 mg, Oral, EVERY 4 HOURS PRN, Starting on Sun01/02/13 at 1038, Until 01/05/13 at 1414, Heartburn, Give 500 mg (1 tablet) for mild to moderate heartburn. Give 1,000 mg (2 tablets) for severe heartburn., Routine 0851 (Given - Provider: Odalis Lora, DRU) famotidine (PEPCID) tablet 20 mg 20 mg, Oral, 2 TIMES DAILY PRN, Starting on Ninfa 01/02/13 at 1039, Until 01/05/13 at 1414, GI upset, pain, Routine 0746 (Given - Provider: Odalis Lora, DRU)1630 (Given - Provider: Brittany Burt, DRU) 1837 (Given - Provider: Bhumi Duenas DRU) LORazepam (ATIVAN) tablet 0.5 mg 0.5 mg, Oral, EVERY 6 HOURS PRN, Starting on Tu12/31/12 at 1828, Until 01/05/13 at 1414, Anxiety, Insomnia, Can give additional 0.5mg after 30 minutes if initial 0.5mg is ineffective, Routine 1135 (Given - Provider: Odalis Lora, RN)2109 (Given - Provider: Radha Burgos, DRU) 203 (Given - Provider: Radha Burgos, DRU) ondansetron (ZOFRAN-ODT) oral disintegrating tablet 4 mg (CANCELED) 4 mg, Oral, EVERY 8 HOURS PRN, Starting on Sun12/30/12 at 1425, Until 01/05/13 at 0754, Nausea, Routine 0531 (Given - Provider: Odalis Chung, DRU)1630 (Given - Provider: Brittany Burt, DRU) 1246 (Given - Provider: Bhumi Duenas, DRU) 0442 (Given - Provider: Radha Burgos, DRU) documented in this encounter Care Teams Cash Management Coordinator Relationship Specialty Start Date End Date Bakari Costello APRN [address] [address] PCP - General 12/13/12 01/12/13 documented as of this encounter
--- OUTSIDE RECORDS SUMMARY | 2024-02-04 13:22 | XMS_ITS | Encounter Summary ---
Author Organization [facility]ly [facility] Address [facility] [place] [address] Care Team Providers Care Director Of Dance Name Role Phone Ofelia Costello APRN Primary Care Provider [phone] Encounter Details Date Type Department Care Team (Late st Contact Info) Description 12/30/2012 Telephone Hematology [place] [address] Dee Ocampo MD [facility] HEMATOLGY/[place] [address] Social History Tobacco Use Types Packs/Day Years [...] is from: Outside Provider: Dr. Echols, from [facility] Reason for call: Mgmt coordination for new SOB Brief history: Ms. Henriquez presented to [facility] with new acute SOB with sat initially 84-86% on RAup to 95% with 3L. No clear precipitant, not signs of infection including fever, cough, diarrhea. 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
--- OUTSIDE RECORDS SUMMARY | 2024-02-04 13:22 | XMS_ITS | Encounter Summary ---
Author Organization [facility] Address [facility] [place] [address] Care Team Providers Care Gandy Dancer Name Role Phone Ofelia Costello APRN Primary Care Provider [phone] Encounter Details Date Type Department Care Team (Late st Contact Info) Description 12/30/2012 Orders Only Hematology [place] [address] Haris Jarvis MD [facility] [address] [place]EMATOLOGY [place] [address] Social History Tobacco Use Types Packs/Day Years [...] is a non-reportable exam. Haris Jarvis MD [facility] FILM LIBRARY ORD ERABLES [facility] [address] [place] [address] documented in this encounter Visit Diagnoses Not on filedocumented in this encounter Care Teams Gandy Dancer Relationship Specialty Start Date End Date Ofelia Costello APRN [address] [address] PCP - General 12/13/12 01/12/13 documented as of this encounter
--- OUTSIDE RECORDS SUMMARY | 2024-02-04 13:23 | XMS_ITS | Encounter Summary ---
Author Organization [facility] Address [facility] [place] [address] Care Team Providers Care Oral And Maxillofacial Surgery Resident Name Role Phone Bakari Costello APRN Primary Care Provider [phone] Reason for Referral * Consultation (Routine) - Duplicate Referral Specialty Diagnoses / Procedures Referred By Contjodi t Referred To Contact Diagnoses MRSA bacteremia HUS (hemolytic uremic syndrome) Haris Jarvis MD [facility] DR [place] [address] Tyson Patel MD [facility] [place] [address] Referral ID Status Reason Start Date Expiration Date Visits Requested Visits Authorized [id number] Duplicate Referral Assume Subset of Care 12/27/2012 06/25/2013 1 1 Encounter Details Date Type Department Care Team (Latest Contact Info) Description 12/13/2012 7:56 PM EDT - 12/27/2012 6:34 PM EDT Hospital Encounter [address] [place] [id number] Ant Mendoza MD [facility] [place] [address] Luis E Trotter MD [facility] [address] Yudith Raya DO [facility] [place] [address] Fabi Bliss MD [facility] [address] [place] [address] Ankit Ohara MD [facility] [address] [place] [address] Haris Jarvis MD [facility] DR [place] [address] TTP (thrombotic thrombocytopenic purpura) (Primary Dx); Thrombocytopenia; [...] 12/30/2012 12:45PM, Provider: Dr. Rob Mejia, Location: [place] [id number], Your Inpatient Doctor(s) at [facility]: Attendings: Dr. Cristina, Dr. Ohara, Dr. Bliss Fellow: Dr. Gomez Residents: Dr. Guzmán, Dr. Aleman Podiatry Assistant: Dr. Kimball * Attachments The following attachments cannot be sent through Care Everywhere. * PERIPHERALLY INSERTED CENTRAL CATHETER (PICC): AFTER YOUR VISIT (ARABIC) documented in this encounter Medications at Time [...] it-Vit C-Mn 500-400 mg Cap 12/03/2009 01/13/2013 [place]-3 Fatty Acids-Vitamin E (OMEGA-3 FISH OIL) 1,000-5 mg-unit Cap 12/03/2009 01/06/20 13 documented as of this encounter Progress Notes * Carmen Strickland - 12/27/2012 6:30 PM EDT Mirella Encounter Note Patient Name: Anum Henriquez : [id number] MR#: [id number] Admit Date: 12/13/2012 7:56 PM Hospital Day 14 days Narrative: Follow up visit with patient prior to her discharge. Patient's present at the time of visit. Assessment: Patient expressed with excitement that she was going home today. She related the challenges of her hospitalization but was grateful to the members of the [facility] medical staff for their services. Intervention and Outcome: Supportive dialogue, pastoral presence, conveyance of care, anointing of the sick, Holy Communion and prayers provided Follow-up: Will continue to follow up for support Time in Direct Care: 30 minutes Carmen Strickland 12/27/2012 * Erika Trcay RN - 12/27/2012 6:24 PM EDT Pt. D/c'd home w/single lumen picc to LUE for IV antibiotic out patient. Pt. Ambulated out w/walkerand SN and . Pt. Denies n/v or pain at this time. * Brian Velazco MD - 12/27/2012 5:39 PM EDT [facility] NEPHROLOGY INPATIENT FOLLOW UP PATIENT: Anum Henriquez : 1960 ROOM: [address] [place] [address] ID: 52 y.o. female admitted for microangiopathic [...] daily until 12/20. (received 7 treatment total). [id number] is normal and infectious work-up is negative so because of gadolinium exposure and mental status improved after hd. DELVIS- Cr stable. Non oliguric. Stable chemistries No indications for SOLID WASTE MANAGEMENT ENGINEER. Pt is getting discharged today. Plan to check labs in 1 week at [facility] and she has an appointment [...] Office of Care Management (OCM) / Clinical Ear Specialist (CRC) Continuing Care Note Care reviewed with hematology/blood and marrow transplant team and at interdisciplinary discharge rounds. . Situation: Discharge planned for today on home on IV abx therapy. Today is Day 8 Vancomycin IV for MRSA bacteremia. Arrangements made with [employer] for delivery of supplies to hospital room before discharge to home. Tamar Bond is the [facility] that will go to the home tomorrow for first hang around 3 pm. Lovenox is ready for continuous pickling line pickler at their local pharmacy, No PA needed. Single lumen PICC placed. Procedure note sent to both [place] and [facility]. Background: PMH of Graves on methimazole, transferred [...] be drawn by [facility] and faxed to [facility] 4. Follows up with Dr. Bliss in [facility] on 01/01. 5. First visit by V[facility] [...] AM Clovis Varner MD [facility] M. Dez Bishop RN Clinical Ear Specialist Office of Care Management Pager [phone] * Leticia Hardy, PT - 12/27/2012 3:45 [...] discharge later today. ~Leticia Hardy PT Pager [phone]. * Tyson Patel MD - 12/27/2012 1:10 [...] outpatient. Recommendations: - Vancomycin 750 mg IV [id number] x3 weeks total since line removal (12/24 [...] minutes Total timed interventions: 15 minutes Pager: [phone] KAREN CATHERINE PT Physical Therapy Rehabilitation Department * Brian Velazco MD - 12/26/2012 3:12 PM EDT [facility] NEPHROLOGY INPATIENT FOLLOW UP PATIENT: Anum Henriquez : 1960 ROOM: [address] [place] [address] ID: 52 y.o. female admitted for microangiopathic [...] daily until 12/20. (received 7 treatment total). [id number] is normal and infectious work-up is negative so because of gadolinium exposure and mental status improved after hd. DELVIS- Cr stable off dialysis. Good urine output. No signs of uremia. Stable chemistries. Mild fluid overload. No indications for SOLID WASTE MANAGEMENT ENGINEER. Will continue to follow cr and urine [...] PM EDT Office of Care Management Clinical Ear Specialist Home IV Antibiotic Therapy Referral Note. Report received from Dr. Frausto that patient will require continued home IV antibiotic therapy after discharge from the hospital. Met with patient/family to discuss vendor and visiting nurse choices for home IV antibiotic therapy. Reviewed Home Infusion Vendors and Home Health Agencies that serve patient???s address and accept patient???s insurance. Home Health Agency: Patient requested referral to [facility]. PHONE: [phone] FAX: [phone] Referrals sent via edischarge. Home Infusion Vendor: Patient requested referral to [place], [place] or Referrals sent via edischarge. Diabetic Status: Patient is not a diabetic. IV access: Type of line: PICC single lumen pendng Date placed: pending Gorge Bishop RN Clinical Ear Specialist Hematology/Blood and Marrow Transplant Office of Care Management Pager [phone] * Clovis Varner MD - 12/26/2012 11:42 [...] Rebecca Kumar - 12/26/2012 11:18 AM EDT Cuff Setter Encounter Note Patient Name: Anum Henriquez : [id number] MR#: [id number] Admit Date: 12/13/2012 7:56 PM Hospital Day [...] AAOx3, No double vision this AM, EOMI, Lqzfpn-zk-inyy improved, no past- pointing; rapid alternating movement and luef-gi-cnem intact. Patellar and biceps tendon reflexes are [...] NEUTROABS 3.99 4.85 3.63 Recent Labs Basename 12/26/122 12/25/12 0414 12/24/12 0358 NA 141 140 138 K 3.5 3.6 3.7 CL 106 106 101 CO2 24 27 27 BUN 11 10 7* CREATININE 2.05* 2.01* 1.59* Recent Labs Basename 12/26/12 03412/25/12 0414 12/24/12 0358 CALCIUM 8.5 8.3* 7.9* MAGNESIUM 0.80 0.80 0.74 PHOS 4.1 3.4 2.9 Recent Labs Basename 12/26/12 03412/25/12 12012/25/12 0414 12/24/12 1300 AST -- -- -- [...] + delirium. Possible diagnosis include ?Lupus cerebritis, HAIR MIXER vasculitis, all d/t TTP-HUS? Delirogenic meds d/c'd. [...] KIMBALL MD, PGY-1 12/26/2012 Team A Pager #[phone] . I have independently interviewed and examined [...] and bloody diarrhea. Upon transfer to [facility], she was found to have microangiopathic hemolytic [...] Recommendations: ?? Continue Vancomycin 1 gram IV N00mpqiq ?? Vancomycin trough prior to 4th dose, [...] Velazco MD - 12/25/2012 3:16 PM EDT [facility] NEPHROLOGY INPATIENT FOLLOW UP PATIENT: Anum Henriquez : 1960 ROOM: [address] [place] [address] ID: 52 y.o. female admitted for microangiopathic [...] daily until 12/20. (received 7 treatment total). [id number] is normal and infectious work-up is negative so because of gadolinium exposure and mental status improved after hd. DELVIS- urine output of 3.5 L which might be an early sign of renal recovery. Cr continues to rise butwill have to follow daily cr to monitor for renal recovery. No signs of uremia today. No acute needfor SOLID WASTE MANAGEMENT ENGINEER today. Will need to assess daily for [...] good spirits after a visit from the [facility]. She reports her appetite is fair, eating about 50% with a goal of 100%. Discussed how this is a goal to work towards, but sheis doing well in her efforts. She denied any nutrition requests, questions, or additional snacks atthis time. Continue to monitor. P: Continue current diet. Hardesty food choices as able. Work towards increasing [...] AAOx3, No double vision this AM, EOMI, Kznsyw-pp-bkcc improved, no past- pointing; rapid alternating movement and ewzv-dq-iooi intact. Patellar and biceps tendon reflexes are [...] + delirium. Possible diagnosis include ?Lupus cerebritis, HAIR MIXER vasculitis, all d/t TTP-HUS? Delirogenic meds d/c'd. [...] KIMBALL MD, PGY-1 12/25/2012 Team A Pager #[phone] . I have independently interviewed and examined [...] in reticulocyte if we administer ESAs * LynnRebecca - 12/24/2012 5:57 PM EDT Cuff Setter Encounter Note Patient Name: Anum Henriquez : [id number] MR#: [id number] Admit Date: 12/13/2012 7:56 PM Hospital Day 11 days Narrative: Visited patient as part of continuing care. I has seen her earlier in the day at [facility]. Assessment: Patient was lucid and in very good spirits. Intervention and Outcome: The encounter provided spiritual and emotional support. Follow-up: Visit before [facility]. Time in Direct Care: 10 minutes Rebecca Kumar 12/24/2012 * Brian Velazco MD - 12/24/2012 4:54 PM EDT [facility] NEPHROLOGY INPATIENT FOLLOW UP PATIENT: Anum Henriquez : 1960 ROOM: [address] [place] [address] ID: 52 y.o. female admitted for microangiopathic [...] daily until 12/20. (received 7 treatment total). OEFJIE00 is normal and infectious work-up is negative [...] Plasma exchange x7, which was stopped 12/20. REGSEF15 negative. 2-3 days ago, patient developed acute [...] and bloody diarrhea. Upon transfer to [facility], she was found to have microangiopathic hemolytic [...] , main floor is 2nd level, Pt vernell main floor Stairs: 0 Baseline Mobility: I, [...] minutes Total timed interventions: 25 minutes Pager: [phone] BETSY FORMAN, PT Physical Therapy Rehabilitation Department * John [...] AAOx3, No double vision this AM, EOMI, Bxieul-vn-fhgd improved, no past- pointing; rapid alternating movement and arcu-bu-jror intact. Patellar and biceps tendon reflexes are [...] + delirium. Possible diagnosis include ?Lupus cerebritis, HAIR MIXER vasculitis, all d/t TTP-HUS? Delirogenic meds d/c'd. [...] KIMBALL MD, PGY-1 12/24/2012 Team A Pager #[phone] * Brian Velazco MD - 12/23/2012 5:41 PM EDT [facility] NEPHROLOGY INPATIENT FOLLOW UP PATIENT: Anum Henriquez : 1960 ROOM: [address] [place] [address]- ID: 52 y.o. female admitted for microangiopathic [...] daily until 12/20. (received 7 treatment total). [id number] is normal and infectious work-up is negative [...] follow up tomorrow. Gianna Hdz OT Pager [phone] * Ankit Ohara MD - 12/23/2012 9:38 [...] AM (3 to date). Today is Day for hemodialysis Exam I performed a complete [...] aureus bacteremia #ID - staph aureus bacteremia rdgen from UTI She is currently Day 4 of zosyn/vanco. She reamins afeb since starting rx. Repeat BC from Sunday show NGTD Today's plans will include Diaylsis again (Day 2 3) Pull out lines that are not needed - we will review with nursing staff #Renal/FEN Day 3 of hemodialysis #FEN SHe needs diuesis [...] of care Edil Ohara MD Staff * John Kimball - 12/23/2012 6:56 [...] AAOx3, No double vision this AM, EOMI, Qpwfpg-cj-kary improved, no past- pointing; rapid alternating movement and aqos-wc-oxsd intact. Patellar and biceps tendon reflexes are [...] PTT 36* 41* Other Labs: C3 Complement 7/8 - 66 [...] + delirium. Possible diagnosis include ?Lupus cerebritis, HAIR MIXER vasculitis, all d/t TTP-HUS? Delirogenic meds d/c'd. [...] KIMBALL MD, PGY-1 12/23/2012 Team A Pager #[phone] * Rebecca Kumar - 12/22/2012 6:06 PM EDT Cuff Setter Encounter Note Patient Name: Anum Henriquez : [id number] MR#: [id number] Admit Date: 12/13/2012 7:56 PM Hospital Day 9 days Narrative: Visited at patient request. Cuff Setter services offered and accepted. Prayer offered and accepted. Patient was made aware of Mass times, and availability of communion from [facility] ministers. Assessment: Patient was lucid, pleasant and eager to converse. Intervention and Outcome: The encounter provided significant spiritual support. Follow-up: Will refer to [facility] chaplains and also visit Sunday. Time in Direct Care: 20 minutes Rebecca Kumar 12/22/2012 * Ankit Ohara MD - 12/22/2012 [...] Velazco MD - 12/22/2012 9:06 AM EDT [facility] NEPHROLOGY INPATIENT FOLLOW UP PATIENT: Anum Henriquez : 1960 ROOM: [address] [place] [address] ID: 52 y.o. female admitted for microangiopathic [...] total). LDH trending down and HGB/PLT improving. VHGVXJ21fj normal and infectious work-up is negative so [...] Crum. Salvador Renner MD Nephrology Fellow Pager# [phone] Renal Staff: This patient is seen and [...] Oriented to person, thinks she is at [facility], thinks month is November, oriented to year and president, off on day of week by 1 day. photocopier technician intact. EOMI but disconjugate gaze when looking forward, with L eye deviating medially. Double vision. No meningismus. Unable to cooperate in strength and sensation exam. Trembling diffusely, more exaggerated versus yesterday. Worsened dysmetria with jscanj-il-lslx. Myoclonic jerks, clonus bl ankles, hyperrflexia diffusely. [...] + delirium. Possible diagnosis include ?Lupus cerebritis, HAIR MIXER vasculitis, all d/t TTP-HUS? Delirogenic meds d/c'd. [...] KIMBALL MD, PGY-1 12/22/2012 Team A Pager #[phone] * Arturo Moreno MD - 12/22/2012 1:22 AM EDT Neurology Progress Note Patient Name: Anum Henriquez Admit Date: 12/13/2012 Attending: Patient ID: Anum Henriquez is a 52 y.o. female with PMH of Graves disease initially admitted in transfer from [facility] with hemorrhagic colitis and thrombocytopenia on [...] ??? aspirin 81 mg EC tablet ??? Cmngfucyjoz-Dwmysokgw-Abu C-Mn 500-400 mg Cap ??? [place]-3 Fatty Acids-Vitamin E (OMEGA-3 FISH OIL) 1,000-5 [...] questions Raad Aleman, PGY-2 Neurology Personal Pager [phone] Addendum:I saw and evaluated the patient with [...] Oriented to person, thinks she is at [facility], thinks month is November, oriented to year and president, off on day of week by 1 day. photocopier technician intact. EOMI but disconjugate gaze when looking forward, with L eye deviating medially. Double vision. No meningismus. Unable to cooperate in strength and sensation exam. Trembling diffusely, more exaggerated versus yesterday. Worsened dysmetria with fnpwtk-dd-zapl. Myoclonic jerks, clonus bl ankles, hyperrflexia diffusely. [...] all toxic-metabolic encephalopathy + delirium. ?Lupus cerebritis, HAIR MIXER vasculitis, all d/t TTP-HUS? Delirogenic meds d/c'd. [...] following for possible vasculitis - consider beta ikrstie if develops tachycardia # FEN - repleting K, mag, phos prn - Regular diet, not taking much po - may need to consider tpn # Other - DVT ppx - SCDs. No thx anticoag given b/c HUS-TTP - GI: PPI IV BID CODE STATUS: Full Code LEI ALEMAN MD, PGY-1 12/21/2012 Team A Pager #[phone] Fellow Addendum I have seen and examined [...] systemic fibrosis. Ming Gomez MD Fellow, Hematology/Oncology [facility] Pager #[phone] Staff 12/21/12 8pm Pt remains intermittently confused [...] to 730pm) Edil Ohara MD Staff * Block, Brian A, MD - 12/21/2012 8:57 AM EDT [facility] NEPHROLOGY INPATIENT FOLLOW UP PATIENT: Anum Henriquez : 1960 ROOM: [address] [place] [address] ID: 52 y.o. female admitted for microangiopathic [...] total). LDH trending down and HGB/PLT improving. [id number] is normal and infectious work-up is negative [...] Crum. Salvador Renner MD Nephrology Fellow Pager# [phone] Renal Staff: This patient is seen and [...] year old female admitted in transfer from [facility] for hemorrhagic colitis and thrombocytopenia on [...] on CXR. Implicated Component Information: Unit Number(s): [id number], [id number], [id number], [id number], [id number] Unit ABO Type(s): AB Volume Transfused: All [...] Balance: Intake/Output Summary (Last 24 hours) at 12/20/122 Last data filed at 12/20/12 1939 Gross per 24 hour Intake 50 ml Output 2375 ml Net -2325 ml Laboratory Investigation: Not performed Reaction Assessment: [facility] Biovigilance Reaction Classification: Transfusion-associated circulatory overload [...] TRALI is unlikely, we have contacted the [place] to determine the HLA status of donor [...] donors except for one unit of plasma [id number] which as donated by female who was HLA negative. This excludes the possibility of antibody mediated TRALI. Marie Wade DO 12/21/2012 * Jimmy Tuttle OTA - 12/20/2012 4:04 PM EDT Occupational Therapy Encounter Spoke with RN who advised that the patient was not appropriate for therapy today, will follow up onSunday. GREGORY Nelson Pager #[phone] * Amanda Odonnell PT - 12/20/2012 1:48 PM EDT Spoke with OT who reports that pt not medically appropriate for PT today. [employer] reportedly inwith pt. Will plan to follow-up on Sunday. Amanda Odonnell PT Pager #[phone] * Ankit Ohara MD - 12/20/2012 9:34 [...] She rec'd 1 u RBCs to date [id number] was normal Exam significant for mild dysmtria, [...] MRI was normal. Confusing clinical picture, since EBHVCWQ90 was normal. We will give 1 u [...] Trotter MD - 12/20/2012 8:57 AM EDT [facility] NEPHROLOGY INPATIENT FOLLOW UP PATIENT: Anum Henriquez : 1960 ROOM: [address] [place] [address] ID: 52 y.o. female admitted for microangiopathic [...] nephrotoxins Seen and Discussed with Dr. Sergo Gomes, MD Nephrology Fellow Pager # [phone] Renal Attending: The patient was examined together [...] methimazole for >10 years) who presented to [facility] 6 days ago with watery/bloody diarrhea [...] positive (12/13/12). She was transferred to [facility] on 12/13/12 after daily labs revealed a drop in platelets from 151 to 66, increase of Cr from 0.8 to 1.2, and elevated LDH at 1187 (all per OSH). [facility] labs confirmed thrombocytopenia at 46 (currently 44), increasing Creatinine (1.4 at [facility] admission, currently 1.74) LDH of 672, dropping hemoglobin (Per OSH, 14 at initial admit, 11.9 at [facility] admit, currently 10.8), and low haptoglobin (<10). [...] laboratory data: Recent Labs Basename 12/20/12 0450 12/19/12 0320 12/18/12 0425 12/17/12 1300 07/09/13 0400 WBC 10.0 8.9 7.7 6.9 6.7 HGB 7.1* 7.8* 7.9* 6.2* 7.0* HCT 21.4* 23.2* 22.4* 18.3* 19.7* PLATELET 139* 123* 99* 65* 58* NEUTROABS 8.24* 7.21* 5.75 5.12 5.16 Recent Labs Basename 12/20/1244912/19/1231912/18/1242412/17/1239912/16/12439 NA 140 145 140 141 139 K 3.5 3.7 4.2 -- -- CL 100 104 104 108* 111* CO2 32* 28 29 24 22 BUN 38* 41* 41* 37* 33* CREATININE 2.11* 2.19* 2.28* 2.25* 2.29* Recent Labs Basename 12/20/1244912/19/1231912/18/1242412/17/1239912/16/1243912/13/12 2200 AST -- -- -- -- 49* 30 ALT -- -- -- -- 21 10 ALKPHOS -- -- -- -- 32* 29* BILITOT -- -- -- -- 0.8 1.0 BILIDIR -- -- -- -- 0.2 0.2 LDH 220 270* 306* 366* 455* -- Recent Labs Basename 12/20/1244912/19/1273912/13/122199 INR -- -- 1.3* PT -- -- [...] 2/3 albumin, 1/3 plasma today given normal EBWTLX70 activity. Plasma given for coag factor purposes (Fibrinogen <200). - Will plan to hold treatment tomorrow and observe. If patient and/or labs (plts, LDH, etc) worsen on Sunday then we can resume TPE treatment. - F/u Plts, Hgb, LDH, Ca, coags - GI w/u per GI team. Jay Toscano MD Fellow, Hematology/Oncology Pager #: [phone] ATTENDING MD ATTESTATION: The apheresis procedure was [...] JALEEL REYNOSO MD 12/21/2012 * John Kimball Jamilah - 12/20/2012 7:15 AM EDT Inpatient Hematology/Oncology/SCT Progress Note Patient info: Name: Anum Henriquez : 1960 PCP: BAKARI COSTELLO APRN PCP phone number: [phone] Date of Admission: 12/13/2012 ( Hospital Day 7 days ) Service: Hem/Onc Team B - Pager [phone] Responsible Attending:Ankit Ohara MD ID: Anum Henriquez [...] skin feels tense Neuro: A&Ox3, dysmetria with urmrot-qe-frjm, motor 5/5 upper and lower ext. Antimicrobials: [...] KIMBALL MD, PGY-1 12/20/2012 Team A Pager #[phone] * Cody Posada MD - 12/19/2012 6:16 PM EDT ID CONSULT PROGRESS NOTE Patient was not seen and examined today, but chart was reviewed. She remains hemodynamically stable and afebrile. WBC count within a normal range. HIV was negative.Stool culture at [facility] has been finalized as negative. Her clinical [...] methimazole for >10 years) who presented to [facility] 6 days ago with watery/bloody diarrhea [...] positive (12/13/12). She was transferred to [facility] on 12/13/12 after daily labs revealed a drop in platelets from 151 to 66, increase of Cr from 0.8 to 1.2, and elevated LDH at 1187 (all per OSH). [facility] labs confirmed thrombocytopenia at 46 (currently 44), increasing Creatinine (1.4 at [facility] admission, currently 1.74) LDH of 672, dropping hemoglobin (Per OSH, 14 at initial admit, 11.9 at [facility] admit, currently 10.8), and low haptoglobin (<10). [...] affect. Current laboratory data: Recent Labs Basename 12/19/1231912/18/1242412/17/12 1300 12/17/12 0400 12/16/12 0440 WBC 8.9 7.7 6.9 6.7 6.4 HGB 7.8* 7.9* 6.2* 7.0* 7.5* HCT 23.2* 22.4* 18.3* 19.7* 22.2* PLATELET 123* 99* 65* 58* 42* NEUTROABS 7.21* 5.75 5.12 5.16 4.69 Recent Labs Basename 12/19/1231912/18/125 12/17/12 0400 12/16/12 0440 12/15/12 0350 NA 145 140 141 139 139 K 3.7 4.2 3.3* -- -- CL 104 104 108* 111* 113* CO2 28 29 24 22 20* BUN 41* 41* 37* 33* 26* CREATININE 2.19* 2.28* 2.25* 2.29* 2.12* Recent Labs Basename 12/19/12 03212/18/125 12/17/12 0400 12/16/12 0440 12/15/12 0350 12/13/12 2200 AST -- -- -- 49* -- 30 ALT -- -- -- 21 -- 10 ALKPHOS -- -- -- 32* -- 29* BILITOT -- -- -- 0.8 -- 1.0 BILIDIR -- -- -- 0.2 -- 0.2 LDH 270* 306* 366* 455* 417* -- Recent Labs Basename 12/19/12 0740 12/13/12 2200 INR -- 1.3* PT -- 16.5* PTT [...] 2/3 albumin, 1/3 plasma today given normal DNBSKS14 activity. - Will plan to treat again [...] to this. Now that we know her ZHAYRZ17 is normal, she no longer requires the [...] She rec'd 1 u RBCs to date [id number] was normal at admission Based on my [...] of care K Alannah PANTOJA Staff * uLis E Trotter MD - 12/19/2012 7:50 AM EDT [facility] NEPHROLOGY INPATIENT FOLLOW UP PATIENT: Anum Henriquez : 1960 ROOM: [address] [place] [address] ID: 52 y.o. 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 Subjective: Feels lousy as she could not sleep well, abdominal pain better, only had 2 somewhat formed BM's yesterday. [place] SOB and had hypoxia in afternoon but [...] cultures negative for Campylobacter and Shiga toxin [id number] normal level IMPRESSION/ RECOMMENDATIONS: 52 yo female with microangiopathic hemolytic anemia/thrombocytopenia and non oliguric acute kidney injury having plasma exchange daily , currently without any laboratory of clinical indication of renal replacement therapy. [id number] normal Today is day 5 of plasma exchange LDH still elevated, platelets still <150 noted but improving, creatinine seems to be stable for 3 days now. If no improvement is noted we may consider biopsy. KIANA, and cultures (shiga/campylobacter) noted to be negative Renal dose of medications Avoid nephrotoxins Seen and Discussed with Dr. Sergo Gomes MD Nephrology Fellow Pager # [phone] Renal Attending: The patient was examined together [...] PLATELET 123* 99* 65* Recent Labs Basename 12/19/12 0320 12/18/12 0425 [...] colonoscopy Raad Bolaños MD PhD Gastroenterology Fellow ([id number]) * John Kimball - 12/19/2012 5:52 AM EDT Inpatient Hematology/Oncology/SCT Progress Note Patient info: Name: Anum Henriquez : 1960 PCP: BAKARI COSTELLO APRN PCP phone number: [phone] Date of Admission: 12/13/2012 ( Hospital Day 6 days ) Service: Hem/Onc Team B - Pager [phone] Responsible Attending:Ankit Ohara MD ID: Anum Henriquez [...] 4.8* 4.4 -- 3.1 Recent Labs Basename 12/19/1231912/18/125 12/17/12 0400 12/16/12 0440 12/13/12 2200 AST [...] KIMBALL MD, PGY-1 12/19/2012 Team A Pager #[phone] * Jose Kaur RN - 12/18/2012 6:00 [...] 15 minutes for functional there ex Pager: [phone] GIANNA HDZ OT Occupational Therapy Rehabilitation Department * Betsy Forman, PT - 12/18/2012 11:54 AM EDT Physical [...] minutes Total timed interventions: 15 minutes Pager: [phone] BETSY FORMAN PT Physical Therapy Rehabilitation Department [...] Trotter MD - 12/18/2012 8:51 AM EDT [facility] NEPHROLOGY INPATIENT FOLLOW UP PATIENT: Anum Henriquez : 1960 ROOM: [address] [place] [address] ID: 52 y.o. female admitted for microangiopathic [...] of clinical indication of renal replacement therapy. [id number], expected to be back today Stool cultures pending, LDH still elevated, platelets still <150 noted but improving, creatinine seems to be stable for 2 days now and may represent that in the next couple of days it will start to decrease, if this is not the case and [id number] is negative will consider renal biopsy ANCA's, hepatitis C noted to be within normal limits. Renal dose of medications Avoid nephrotoxins Seen and Discussed with Dr. Sergo Gomes MD Nephrology Fellow Pager # [phone] Renal Attending: The patient was examined together [...] methimazole for >10 years) who presented to [facility] 6 days ago with watery/bloody diarrhea [...] positive (12/13/12). She was transferred to [facility] on 12/13/12 after daily labs revealed a drop in platelets from 151 to 66, increase of Cr from 0.8 to 1.2, and elevated LDH at 1187 (all per OSH). [facility] labs confirmed thrombocytopenia at 46 (currently 44), increasing Creatinine (1.4 at [facility] admission, currently 1.74) LDH of 672, dropping hemoglobin (Per OSH, 14 at initial admit, 11.9 at [facility] admit, currently 10.8), and low haptoglobin (<10). [...] Recent Labs Basename 12/18/12 0425 12/17/12 1300 07/09/39912/16/1243912/15/12 0350 WBC 7.7 6.9 6.7 6.4 6.3 HGB 7.9* 6.2* 7.0* 7.5* 9.2* HCT 22.4* 18.3* 19.7* 22.2* 25.6* PLATELET 99* 65* 58* 42* 41* NEUTROABS 5.75 5.12 5.16 4.69 4.35 Recent Labs Basename 12/18/1242412/17/1239912/16/1243912/15/12 03512/14/12 0549 NA 140 141 139 139 138 K 4.2 3.3* 4.1 -- -- CL 104 108* 111* 113* 114* CO2 29 24 22 20* 19* BUN 41* 37* 33* 26* 18 CREATININE 2.28* 2.25* 2.29* 2.12* 1.74* Recent Labs Basename 12/18/1242412/17/1239912/16/1243912/15/1234912/14/12 0216 12/13/12 2200 AST -- -- 49* [...] JALEEL REYNOSO MD 12/18/2012 * John Kimball Jamilah - 12/18/2012 6:51 AM EDT Inpatient Hematology/Oncology/SCT Progress Note Patient info: Name: Anum Henriquez : 1960 PCP: BAKARI COSTELLO APRN PCP phone number: [phone] Date of Admission: 12/13/2012 ( Hospital Day 5 days ) Service: Hem/Onc Team B - Pager [phone] Responsible Attending:Ankit Ohara MD ID: Anum Henriquez [...] KIMBALL MD, PGY-1 12/18/2012 Team A Pager #[phone] * Luis E Trotter MD - 12/17/2012 5:34 PM EDT [facility] NEPHROLOGY INPATIENT FOLLOW UP PATIENT: Anum Henriquez : 1960 ROOM: [address] [place] [address]- ID: 52 y.o. female admitted for diarrhea, [...] of clinical indication of renal replacement therapy. [id number] and stool cultures pending LDH still elevated, [...] methimazole for >10 years) who presented to [facility] 6 days ago with watery/bloody diarrhea [...] positive (12/13/12). She was transferred to [facility] on 12/13/12 after daily labs revealed a drop in platelets from 151 to 66, increase of Cr from 0.8 to 1.2, and elevated LDH at 1187 (all per OSH). [facility] labs confirmed thrombocytopenia at 46 (currently 44), increasing Creatinine (1.4 at [facility] admission, currently 1.74) LDH of 672, dropping hemoglobin (Per OSH, 14 at initial admit, 11.9 at [facility] admit, currently 10.8), and low haptoglobin (<10). [...] evening did not get sent out to [facility] until yesterday evening. Results will not likely [...] PCP: BAKARI COSTELLO APRN PCP phone number: [phone] Date of Admission: 12/13/2012 ( Hospital Day 4 days ) Service: Hem/Onc Team B - Pager [phone] Responsible Attending:Fabi Bliss MD ID: Anum Henriquez [...] last 72 hours Other Labs: C3 Complement 78 - 66 (low) C4 Complement 7/8 - 4 (low) TSH 78 - 3.68 Free T4 -0.88 (borderline low) [...] KIMBALL MD, PGY-1 12/17/2012 Team A Pager #[phone] ++++++++++++++++++++++++++++++++++++++++++++++++++++++++++++++++ Attending Addendum: I personally saw, examined [...] is negative. 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 [id number] pending - should be back today. 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 ID - shigatoxin, stool culture and campylobacter pending. HIV negative. Will consult GI for any other ideas on the bloody diarrhea - does not seem like typical CDiff. * Luis E Trotter MD - 12/16/2012 12:45 PM EDT [facility] NEPHROLOGY INPATIENT FOLLOW UP PATIENT: Anum Henriquez : 1960 ROOM: [address] [place] [address]-A ID: 52 y.o. female admitted for acute [...] of clinical indication of renal replacement therapy. [id number], ANCAs and stool cultures pending LDH still [...] Sergo Gomes MD Nephrology Fellow Pager # [phone] Renal Attending: The patient was examined together with the renal fellow and I agree with the above note with the following addition: the patient has low complement levels in particular C4 is low which raises the possibility of autoimmune hemolytic anemia or SLE, recommend to send ANAs as well, would stop the Methimazole as well * Dez Bishop, RN - 12/16/2012 10:35 AM EDT Office of Care Management (OCM) / Clinical Ear Specialist (CRC) Initial Assessment Care reviewed with hematology/blood [...] ??? aspirin 81 mg EC tablet ??? Leqjwdhszgj-Wedduftsr-Yzr C-Mn 500-400 mg Cap ??? Parkhill-3 Fatty Acids-Vitamin E (OMEGA-3 FISH OIL) 1,000-5 mg-unit Cap ??? CALCIUM ORAL Allergies Allergen Reactions ??? Erythromycin Base Subjective: States she feels a little confused today. Complains of a headache. F Previous functional status: Patient was independent with mobility/ambulation, transfers, ADL's, IADL's. 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 Current functional status: Is ambulating independently in room> [x} No Rehab referral: [x} Yes Home set up: Single story home with no steps to enter. Family and social supports: with grown son and daughter that live locally. Has lived in [facility] all of her life. Mother and father are in a usp close by. Many friends and well connected in the community. Extended Emergency Contact Information Primary Emergency Contact: Liu Henriquez Relation: Durable Power of Wallpaper Cleaner for Healthcare Secondary Emergency Contact: Liu Roberts Relation: Sibling Father: Venita Vora Advance directives: None on file. States she has a copy at home. Code status: Full Code Insurance: Commercial CBA Blue Financial Issues: [x} No Referral to financial services: [x} No Preferred Pharmacy: [address] outpatient pharmacy. DME: No Home Health Agency: [x} No IV Access: Double lumen pheresis catheter and PICC Home Infusion: No HEAD BANQUET WAITER/WAITRESS Referral: Rebecca Tinoco HEAD BANQUET WAITER/WAITRESS Referral indicated: [x} No Primary Care Physician: BAKARI COSTELLO APRN [phone] Primary [facility] Pet Food Deboner: Admitted on Dr. Bliss's service. Referring Pet Food Deboner: N/A Potential discharge needs: Undetermined Anticipated barriers to discharge: Undetermined Transportation at discharge: Spouse or family member. Plan: CRC will continue to monitor progress, follow for continuity of care and assist with discharge planning. No future appointments. Gorge Bishop RN Clinical Ear Specialist Office of Care Management Pager [phone] * Jaleel Reynoso MD - 12/16/2012 9:06 [...] methimazole for >10 years) who presented to [facility] 6 days ago with watery/bloody diarrhea [...] positive (12/13/12). She was transferred to [facility] on 12/13/12 after daily labs revealed a drop in platelets from 151 to 66, increase of Cr from 0.8 to 1.2, and elevated LDH at 1187 (all per OSH). [facility] labs confirmed thrombocytopenia at 46 (currently 44), increasing Creatinine (1.4 at [facility] admission, currently 1.74) LDH of 672, dropping hemoglobin (Per OSH, 14 at initial admit, 11.9 at [facility] admit, currently 10.8), and low haptoglobin (<10). [...] laboratory data: Recent Labs Basename 12/16/12 0440 07/12/21 34912/14/12 0549 12/13/122199 WBC 6.4 6.3 8.3 8.7 HGB 7.5* 9.2* 10.8* 11.9 HCT 22.2* 25.6* 31.8* 34.4 PLATELET 42* 41* 44* 46* NEUTROABS 4.69 4.35 5.70 -- Recent Labs Basename 12/16/12 0440 12/15/12 0350 12/14/12 0549 12/13/122199 NA 139 139 138 138 K 4.1 3.2* 3.7 -- CL 111* 113* 114* 113* CO2 22 20* 19* 18* BUN 33* 26* 18 14 CREATININE 2.29* 2.12* 1.74* 1.45* Recent Labs Basename 12/16/120 12/15/120 12/14/12 0216 12/13/122199 AST 49* -- -- 30 ALT 21 -- -- 10 ALKPHOS 32* -- -- 29* BILITOT 0.8 -- -- 1.0 BILIDIR 0.2 -- -- 0.2 LDH 455* 417* 672* Not Perf Recent Labs Basename 12/13/122199 INR 1.3* PT 16.5* PTT 27 FIBRINOGEN 425 Information about today's procedure A time out was called and the patient's identity was verified. Based on the physical exam and laboratory data, the patient qualified for TPE and the procedure was initiated. The procedure was performed by Janice Awan RN under the supervision of Jaleel Reynoso MD. The procedure began at 09 and was concluded at 1151. Volumes: Plasma [...] be considered. We will continue to await RFCQGZ01 results, the results of which will factor [...] PCP: BAKARI COSTELLO APRN PCP phone number: [phone] Date of Admission: 12/13/2012 ( Hospital Day 3 days ) Service: Hem/Onc Team B - Pager [phone] Responsible Attending:Fabi Bliss MD ID: Anum Henriquez [...] HYDROmorphone, prochlorperazine, prochlorperazine Labs: Recent Labs Basename 12/16/1243912/15/1234912/14/12 0549 WBC 6.4 6.3 8.3 HGB 7.5* 9.2* 10.8* HCT 22.2* 25.6* 31.8* PLATELET 42* 41* 44* NEUTROABS 4.69 4.35 5.70 Recent Labs Basename 12/16/1243912/15/12 0350 12/14/12 0549 NA 139 139 138 K 4.1 3.2* 3.7 CL 111* 113* 114* CO2 22 20* 19* BUN 33* 26* 18 CREATININE 2.29* 2.12* 1.74* Recent Labs Basename 12/16/1243912/15/120 12/14/12 0549 12/13/12 2200 CALCIUM 8.1* 7.9* [...] KIMBALL MD, PGY-1 12/16/2012 Team B Pager #[phone] ++++++++++++++++++++++++++++++++++++++++++++++++++++++++++++++++ Attending Addendum: I personally saw, examined [...] PCP: BAKARI COSTELLO APRN PCP phone number: [phone] Date of Admission: 12/13/2012 ( Hospital Day 2 days ) Service: Hem/Onc Team B - Pager [phone] Responsible Attending:Fabi Bliss MD ID: Anum Henriquez [...] ALEMAN MD, PGY-1 12/15/2012 Team B Pager #[phone] ++++++++++++++++++++++++++++++++++++++++++++++++++++++++++++++++ Attending Addendum: I personally saw, examined [...] (third stool sample ) At outside hosp. [id number] is pending. * Jaleel Reynoso MD - [...] methimazole for >10 years) who presented to [facility] 6 days ago with watery/bloody diarrhea [...] positive (12/13/12). She was transferred to [facility] on 12/13/12 after daily labs revealed a drop in platelets from 151 to 66, increase of Cr from 0.8 to 1.2, and elevated LDH at 1187 (all per OSH). [facility] labs confirmed thrombocytopenia at 46 (currently 44), increasing Creatinine (1.4 at [facility] admission, currently 1.74) LDH of 672, dropping hemoglobin (Per OSH, 14 at initial admit, 11.9 at [facility] admit, currently 10.8), and low haptoglobin (<10). [...] NEURO: Grossly intact ACCESS: Non-tunneled pheresis catheter, RIRadames Current laboratory data: Recent Labs Basename 12/15/12 03512/14/12 0549 12/13/12 2200 WBC 6.3 8.3 8.7 [...] 80 mL. Vital signs: Pre (0930 hrs): LS=267/83; P=95; R=18; T=36.2 Post (1158 hrs): JM=603/80; P=82; R=18; T=36.5 Complications noted (if any): [...] be considered. We will continue to await [id number] results, the results of which will factor [...] methimazole for >10 years) who presented to [facility] 6 days ago with watery/bloody diarrhea [...] positive (12/13/12). She was transferred to [facility] on 12/13/12 after daily labs revealed a drop in platelets from 151 to 66, increase of Cr from 0.8 to 1.2, and elevated LDH at 1187 (all per OSH). [facility] labs confirmed thrombocytopenia at 46 (currently 44), increasing Creatinine (1.4 at [facility] admission, currently 1.74) LDH of 672, dropping hemoglobin (Per OSH, 14 at initial admit, 11.9 at [facility] admit, currently 10.8), and low haptoglobin (<10). [...] NEURO: Grossly intact ACCESS: Non-tunneled pheresis catheter, [facility] Current laboratory data: Recent Labs Basename 12/14/12 [...] 66 mL. Vital signs: Pre (1945 hrs): ML=963/87; P=93; R=18; T=98.3 Post (2200 hrs): KR=432/90; P=87; R=18; T=99.3 Complications noted (if any): [...] may be considered. We will also await IQTMZH01 results, which will highly factor into our [...] Pt ID:52 y.o. Female presents to [facility] with abdominal pain and bloody diarrhea with [...] exchange transfusion this afternoon. MELBA BASS MD [facility] [phone] * Cristobal Reid RN - 12/14/2012 5:30 PM EDT VIR NURSING DATABASE Name: ANUM HENRIQUEZ Date of : 1960 AGE 52 y.o. Address: [address] [place] [address] [address] [facility] [address] (home) Mobile: No relevant phone numbers on [...] MD aspirin 81 mg EC tablet 12/03/09 Enydaxujhgd-Quxzrlvlw-Hvh C-Mn 500-400 mg Cap 12/03/09 Parkhill-3 Fatty Acids-Vitamin E (OMEGA-3 FISH OIL) 1,000-5 mg-unit Cap 12/03/09 CALCIUM ORAL 12/03/09 For outpatient procedures: This patient has been informed that they require a national flatbed truck driver to drive them home after this procedure. In the absence of a national flatbed truck driver, IR will not be able [...] ??? aspirin 81 mg EC tablet ??? Bfcjawnqxxt-Jfgyfzrdc-Avp C-Mn 500-400 mg Cap ??? Parkhill-3 Fatty Acids-Vitamin E (OMEGA-3 FISH OIL) 1,000-5 [...] exchange. Patient will be moved to [address] (room 129) and hematology is going to take over service for the patient. 1600-Report given to DRU Ruvalcaba on . Patient will go to interventional radiology and then to [facility] room. 1654-Patient being transported now. Notified the doctor and his nurse on . * Gianna Bowens RN - 12/14/2012 1:36 AM EDT Nursing Progress Note 12/13/1219992844-3517 Shift Events: 1999 - Pt arrived via EMS to [facility] 44. A/O with stable VS on R/A. [...] ID: 52 y.o. Female presents to [facility] with abdominal pain and bloody diarrhea History of Present Illness: HPI Mrs. Henriquez is a 52F w/ h/o hyperthyroidism, who presents with a several day history of abdominalpain and bloody diarrhea. History obtained by patient and from OSH records. 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 Pt was transferred to [facility] for further management. Pt afebrile and hemodynamically [...] ??? aspirin 81 mg EC tablet ??? Zczvexvujck-Jfkxllvet-Wmb C-Mn 500-400 mg Cap ??? Parkhill-3 Fatty Acids-Vitamin E (OMEGA-3 FISH OIL) 1,000-5 mg-unit Cap ??? CALCIUM ORAL Allergies: Allergies Allergen Reactions ??? Erythromycin Base ??? Milk CIS - Localized Reaction ??? 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 No tinkling bowel sounds on exam, no rebound or guarding, as well, nausea is under control. I am wary about placing an NGT given her thrombocytopenia - will hold off for now and monitor closely. Rest of plan outlined below: # Admit to Medicine - Blue Team, pager [phone] # Hemorrhagic colitis, abdominal pain: - will [...] 12/28/2012 9:39 AM EDTAssociated Order(s): SCAN DOC: LANCE CREWMEMBER/MLRS SERGEANT * Provider, Scanning - 12/28/2012 9:38 AM [...] to the planned procedure. Hand Hygiene: The aquatic laborer did perform hand hygiene prior to line insertion. Catheter type: PICC Lot number: [id number] Procedure Technique: Skin was prepped with chlorhexidine. [...] to the planned procedure. Hand Hygiene: The aquatic laborer did perform hand hygiene prior to line insertion. Catheter type: PICC Lot number: [id number] Procedure Technique: Skin was prepped with chlorhexidine. [...] 5 OR OLDER VIR PROCEDURE NOTE ACC#: [id number] PROCEDURE: Non-tunneled right internal jugular triple lumen [...] this am. Received 2 mg morphine IV. 610 upon reassessment. Tylenol dose increased to 1000mg. [...] (PICC) Teaching Sheet Peripherally inserted central catheters (xtos-ze-ajap) (PICC) are used when you need IV [...] midline catheter? PICC lines are used for snf treatments. PICC lines may be used for [...] can be set up via the nurse Answering Service Telephone Operator to help you. What are possible complications [...] Vascular Access Device Selection, Insertion, and Management, ISBX Access Systems 03/15. A Review of the Efficacy, Safety, Use, and Administration of Cathflo, [employer] 2005 * Plan of Care - Alicia Rodriguez RN - 12/27/2012 1:27 AM EDT Problem: Pain, Acute (Adult, Obstetric) Goal: Acute Pain: Acceptable Pain Control/Comfort Level - Pain, Acute (Adult, Obstetric) Outcome: Present (see interventions, notes) Patient received 2 mg IV morphine prior to bed for 6/10 pain. Patient described as pulsating, mostly in R anabaptism but neck aching as well. 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 She has been alert and oriented X [...] Graves disease initially admitted in transfer from [facility] with hemorrhagic colitis and thrombocytopenia on [...] ANUM HENRIQUEZ Ordered By: ANKIT OHARA MR#: [id number] LOC: 1WST /Sex: 1960 (52 years), Female [...] UA Negative Appearance UA Clear Clear Spec [place] UA 1.007 1.002 - 1.030 Color UA Light Yellow Yellow RBC UA 8 (*) 0 - 4 /HPF WBC UA 6 (*) 0 - 5 /HPF Gran Cast UA 2 (*) <=0 /LPF PRO-BRAIN NATRIURETIC PEPTIDE Component Value Range ProBNP 2411 (*) <=125 pg/mL URINE CULTURE Component Value Range Urine Culture Value: Patient Name: ANUM HENRIQUEZ Ordered By: ANKIT OHARA MR#: [id number] LOC: 1WST /Sex: 1960 (52 years), Female PROCEDURE: Urine Culture SOURCE: U ICath COLLECTED: 12/20/2012 16:49 STARTED: 12/20/2012 17:07 PRELIMINARY REPORT Preliminary Report Verified:12/21/2012 12:39 Greater than 100,000 cfu/ml Staphylococcus aureus BLOOD CULTURE Component Value Range Blood Culture Value: Patient Name: ANUM HENRIQUEZ Ordered By: ANKIT OHARA MR#: [id number] LOC: 1WS /Sex: 1960 (52 years), Female PROCEDURE: Blood [...] Aleman MD PGY-2 Neurology Resident Personal Pager [phone] Consult Pager [phone] Addendum: I saw and evaluated the patient [...] PMH of hyperthyroidism on methimazole who presentedto [facility] with several days of abdominal pain and diarrhea that progressed from watery to bloody. 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 She was transferred to [facility] on 12/13 after 3 days at OSH (day 6 of illness) Labs on admission to [facility] were notable for WBC = 13, HgB 14.5, Plts 151 w/ fecal leukocytes in the stool and negative Cdiff studies. A drop in platelets (151 to 66) and bump in her creatinine prompted transfer to [facility] with concern for evolving TTP-HUS. Throughout her [...] bloody just before she sought care at [facility]. After a few days at [facility], and just prior to transfer to [facility], she feels her diarrhea had improved somewhat and were becoming less bloody withmore substance. Over the past 24h, she has had 3 small brown soft bowel movements. She endorses some lingering abdominal pain but reports this is improved from the blayne of her illness at [facility]. She is most troubled now by [...] the concerns over Cdiff as the possible national flatbed truck driver. From a GI perspective, endoscopy, [...] cultures - transfuse PRN for symptomatic anemia aRad Bolaños MD PhD Gastroenterology Fellow ([id number]) GI Staff Patient seen and examined this [...] anxiety and comfortable MRI experience. Close cousin (COUNTY MANAGER) roomed in overnight and was very helpful [...] use of a walker at this point. [employer] system are in reach. Purposeful Hourly Rounding [...] 0 minutes BETSY FORMAN PT 12/17/2012 Pager: [phone] Physical Therapy Rehabilitation Department * Initial Assessments [...] Social History: Patient lives with her in [facility]. Home Setup: house is two story, [...] PT. Pt' first cousin, who is an GAUGER CHIEF, present. Cognitive Status/Behavior: alert, oriented to person, [...] feet off the floor Toileting: Toilet Hygiene: em Functional Mobility: Supine to sit: min-mod assist [...] minutes Total timed interventions: 0 minutes Pager: [phone] GIANNA HDZ OT 12/17/2012 Occupational Therapy Rehabilitation [...] Nephrology appt. arranged. Vancomycin 750 mg IV [id number] for 3 weeks total since line removal [...] and from OSH records. 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 Pt was transferred to [facility] for further management. Pt afebrile and hemodynamically [...] acutely agitated, was mumbling in coherently in nicaraguan and dominican and exam revealed acute exaggeration of upper [...] donors except for one unit of plasma [id number] which as donated b y female who [...] several days after stopping methimazole. She will f/[facility] Endocrine. Important Lab Data: Recent Labs Basename 12/27/12 03512/26/1234112/25/12 1204 WBC 8.2 6.1 6.7 HGB 9.0* 8.3* 8.8* PLATELET 317 231 264 Recent Labs Basename 12/27/12 03512/26/12 03412/25/12 0414 NA 138 141 140 K [...] ALKPHOS -- Recent Labs Basename 12/27/12 03512/26/12 0342 12/25/12 1204 LDH 257* 255* 288* URICACID -- -- -- Recent Labs Basename 12/27/127 12/26/12 1031 12/25/12 1526 INR 1.0 -- [...] (ref <1.0) Sm Ab, IgG: <0.2 (neg) RESEARCH CHEF Ab, IgG: <0.2 (neg) Scl 70 Ab, [...] 12/22: negative Pertinent radiology/diagnostic studies: KUB OSH 7/2: No acute abnormality CT Abd/pelvis OSH 7:Diffuse transmural thickening of colon wall with relative sparing of distal sigmoid and rectum. Pericolonic fluid. Consistent with colitis, infectious or inflammatory. [facility] read of above film: Marked thickening of colonic wall suggestive of pseudomembranous colitis. Small amount of ascites. Diverticulosis without evidence of diverticulitis. CXR OSH 12/13: Bibasilar opacities c/w pleural fluid and atelectasis. KUB 10/15: no evidence of obstruction or free air KUB /: Mild gaseous distention of the small bowel [...] with provider. Continued medications, unchanged Dose Details Jfepfzagsxk-Ktbwjywez-Jtt C-Mn 500-400 mg Cap Parkhill-3 Fatty Acids-Vitamin E (OMEGA-3 FISH OIL) 1,000-5 [...] 12/30/2012 12:45PM, Provider: Dr. Rob Mejia, Location: [address] [address], Your Inpatient Doctor(s) at [facility]: Attendings: Dr. Cristina, Dr. Ohara, Dr. Bliss Fellow: Dr. Gomez Residents: Dr. Guzmán, Dr. Aleman Podiatry Assistant: Dr. Kimball General Instructions Other Provider Recommendations [...] INSERTED CENTRAL CATHETER (PICC): AFTER YOUR VISIT (ARABIC) Appointment with Primary Care Provider: 12/30/2012 12:45PM, Provider: Dr. Rob Mejia, Location: [place] [address], Your To Do List Future Appointments: Provider: Department: Dept Phone: Center: 01/01/2013 12:35 PM Fabi Bliss MD Hematology/Oncology [phone] [facility] 01/13/2013 3:30 PM Brian Velazco MD Nephrology [phone] [facility] 01/14/2013 10:05 AM Minor Kebede MD Endocrinology [phone] [facility] 01/14/2013 10:30 AM Clovis Varner MD Endocrinology [phone] [facility] Future Orders Please Complete By Expires OPAT: Order / Recommendation for Post Discharge IV Antibiotic Management [[id number] CPT(R)] Process Instructions: If no progress note charted, please enter Clinical details in comments. Scheduling Instructions: Comments: Please Fax all results to: OPAT Program Infectious Disease Section [facility], [place] [address] FAX: Line care instructions per [facility] OPAT Program protocol. After hours, please contact the Infectious Disease Physician election watcher at . If this order was signed greater than 72 hours prior to [facility] discharge, please call to confirm the accuracy [...] Diagnosis: Bacteremia; HUS Referral for Outpatient Antibiotics [[id number] CPT(R)] Process Instructions: Scheduling Instructions: Comments: Questions: Responses: Patient location post discharge Home Start date 12/28/2012 Responsible MD post discharge contact info Out Patient Antibiotic Team Vendor / contact information [facility] Service requested IV abx Referral to Home Health [[id number] CPT(R)] Process Instructions: Scheduling Instructions: Comments: DOCUMENTATION FOR VNA SERVICES (INCLUDING THOSE PATIENTS WITH MEDICARE COVERAGE REQUIRING HOME VNA SERVICES AND/OR HOSPICE SERVICES) This is preliminary information related to the patient's needs and confirmation of Face to Face Encounter. The denoted information will require completion and an electronic signature by the physicianupon finalization of these orders. PATIENT'S LOCATION: Address: [address] [place] [address] [address] [facility] [address] Tel. #: [phone] (home) Material Engineer's Name: In discussion with the attending physician, it is certified that this patient is under their care and that they, or a nurse practitioner, clinical nurse specialist or physician's spa assistant manager who is working directly with them, [...] T4, please send these labs [facility] Attn: Jinny Please send Sunday CMP to Renal [facility], Attn: Dr. Velazco Please send INR to Attn: Dr. Rob Mejia, Responsible Attending: Tyson Patel MD Last documented weight (kg): 68.9 kg (151 lb 14.4 oz) Last documented height (cm): 170.2 cm (5' 7) Please Fax all results to: OPAT Program Infectious Disease Section [facility], [place] [address] FAX: START OF CARE DATE: 12/28/12 All VNA agencies which cover the area of patient's residence have been reviewed, either verbally tanvir writing, and patient/family have chosen the home health care agency as follows for home services: HOME HEALTH CARE AGENCY: [facility] PHONE: [phone] FAX: [phone] VENDOR: [employer]. [facility] Address [address] [place] [id number] Equipment ordered: IV antibiotic and line supplies. Ordering Provider: Dr. John Kimball Ordering Provider Phone #: [phone] [place] [address] Questions: Responses: Agency name and contact information TAMAR MEDINA Patient location post discharge HOME What [...] Contact Information: BAKARI COSTELLO APRN JOSE [address] [facility] [address] Signed: FLYNN FRAUSTO MD Discharged: 12/27/2012 * [...] improve so [facility] and [facility] to the medicine service. Of note, C. Diff on 12/13 returned positive despite 2 prior negative tests. At [facility] patient was initially continued on Cipro and Flagyl. She was noted to have decreasing plts and worsening renal function. 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 She was transferred to the hematology service. IR placed a cath for plasma exchange on 12/14, [id number] was sent, and patient was started on plasma exchange 12/14. Nephrology was also consulted and recommended checking ANCA and complement levels, as well. Cipro was stopped on 12/16 for concern of contributing to TTP/HUS, but Flagyl was continued due to positive C. diff at the OSH. CT scan was re-read at [facility] and was read as showing findings concerning for pseudomembranous colitis. C. diff at [facility] was negative. ID was consulted for further [...] Flagyl IV Q8hr Social History: Lives in 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 Upon transfer to [facility], she was found to havemicroangiopathic hemolytic anemia [...] is sent, please call the microbiology lab ([phone]) so they will not cancel the stool [...] She was t ransferred to the [facility] on 12/13. A peripheral smear showed schistocytes, [...] well as propylthiouracil) has been linked with TEC-ZPIH-hhzhosngwk vasculitis on multiple occassions (Mesha CrumY, Yashay S, Collins S, et al. [...] PM EDT Problem: Knowledge Deficit (Adult, Pediatric, , NICU, Obstetric) Goal: Knowledge Deficit: Knowledgeable about Subject/Topic Outcome: Outcome achieved Date Met: 12/15/12 Peripherally Inserted Central Catheter (PICC) Teaching Sheet: Discussed risks/benefits of PICC with pt. Verbalizes understanding. Peripherally inserted central catheters (qjlx-rt-warc) (PICC) are used when you need IV [...] midline catheter? PICC lines are used for snf treatments. PICC lines may be used for [...] can be set up via the nurse Answering Service Telephone Operator to help you. What are possible complications [...] Efficacy, Safety, Use, and Administration of Cathflo, [employer] 2005 * Plan of Care - [...] purple lumen. x2 lumen PICC ordered for 7/8. Mg+ 0.72 and 2 grams repleted IV. [...] 1A History of Present Illness: Mrs Henriquez (prefercornelius Rowan) is a 52 year old female with a past medical history of Graves disease (reportedly stable on methimazole for >10 years) who presented to [facility] 6 days ago with watery/bloody diarrhea [...] positive (12/13/12). She was transferred to [facility] on 12/13/12 after daily labs revealed a drop in platelets from 151 to 66, increase of Cr from 0.8 to 1.2, and elevated LDH at 1187 (all per OSH). [facility] labs confirmed thrombocytopenia at 46 (currently 44), increasing Creatinine (1.4 at [facility] admission, currently 1.74) LDH of 672, dropping hemoglobin (Per OSH, 14 at initial admit, 11.9 at [facility] admit, currently 10.8), and low haptoglobin (<10). [...] methimazole, per patient Labs: Recent Labs Basename 12/14/1249 12/13/12 2200 WBC 8.3 8.7 HGB 10.8* 11.9 HCT 31.8* 34.4 PLATELET 44* 46* NEUTROABS 5.70 -- Recent Labs Basename 12/14/1249 12/13/12 2200 NA 138 138 K 3.7 3.8 CL 114* 113* CO2 19* 18* BUN 18 14 CREATININE 1.74* 1.45* Recent Labs Basename 12/14/1249 12/13/12 2200 CALCIUM 7.8* 7.5* MAGNESIUM -- 0.55* PHOS -- 1.4* Recent Labs Basename 12/14/12 0216 12/13/12 2200 AST -- 30 ALT -- 10 ALKPHOS -- 29* BILITOT -- 1.0 BILIDIR -- 0.2 LDH 672* Not Perf Recent Labs Basename 12/13/12 2200 INR 1.3* PT 16.5* PTT 27 Physical [...] to <10% by both removing autoantibodies against TLYCDK46 and replacing deficient levels. As the etiology [...] is recommended to administer TPE while awaiting BHIMGS63 results so as not to miss an opportunity to effectively treat the otherwise often-fatal TTP. 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 Once these criteria are met, a taper regimen may be considered. We will also await OZIQDP07 results, which will highly factor into our [...] on the optimal way to interpret the GOQXFW67 findings, when they are back. A very low JAMNHV75 level (<5%), (especially when combined with the presence of an inhibitor (i.e. antibody)) is highly specific for TTP and the diagnosis is essentially confirmed if this result is returned. However, the test is only about 2/3 sensitive....that is, a negative result (normal levels of WNTSUB17) does not rule out TTP, since as many as 30% of TTP patients do not have loss of AQLGIY70; this presumably involves modulation of another component of the pathway that involves cleaving LMW VWR multimers but these other components are not as well defined, and there is no clinically useful test for these, currently. Also, using ZCEZLY86 level itself to assess treatment efficacy is not recommended, since some patients recover clinically after a course of plasmapheresis, but never recover their YZVCER03 levels. This phenomenon supports the model that that TTP is likely a two-hit disease. Loss of FYFYUP11 is not sufficient to bring on clinical disease but some other stressor is needed. It can be speculated that Anum's recent GI symptoms may constitute that second stressor. Also noteworthy is that those patients that recover clinically yet continue to have low RQBFZX93 levels appear to be more likely to relapse. Thank you for involving us in the care and treatment of this patient. LONNY STORM MD 12/15/2012 * Consult Note - Faib Bliss MD - 12/14/2012 5:09 PM EDT [...] or problematic foods. She was admitted to [facility] on 12/10/12 where they gave her IV [...] prior. Therefore, she was transferred to [facility] yesterday for further management. Hospital medicine calls [...] for 10+ years. 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 Lives at home with her . They speak Luxembourgish as their primary language and I believe they are [place]bourgish[place]incentian, although she was born here in . [...] ??? DISCONTD: sodium chloride 0.9% Stopped (12/13/12 3784) PRN Meds:.fentaNYL (PF), midazolam, acetaminophen, ondansetron, ondansetron, zolpidem, HYDROmorphone, prochlorperazine, prochlorperazine, DISCONTD: HYDROmorphone Outpatient medications: No current facility-administered medications on file prior to encounter. Current Outpatient Prescriptions on File Prior to Encounter Medication Sig Dispense Refill ??? methimazole (TAPAZOLE) 10 mg tablet take 1/2 tablet by mouth once daily 45 tablet 3 ??? aspirin 81 mg EC tablet ??? Paglupiirts-Gcfxzuvzw-Tcd C-Mn 500-400 mg Cap ??? Parkhill-3 Fatty Acids-Vitamin E (OMEGA-3 FISH OIL) 1,000-5 [...] arms, face, or legs Labs: Labs at [facility]: 12/10/12: WBC count of 13.1 w/ 89% [...] PT 16.5* PTT 27 Component Latest Ref Rn 12/14/2012 12/13/[address] % 0.5 - [...] ADAMTS 13 activity and removing autoantibodies against ALRNWU49,etc. Therefore, we will check an ADAMTS 13 [...] 25.) 2 - (Veronica CC, Jennifer DL, Marvin-Natalia KM, Navdeep GL. 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 Am J Kidney Dis. 2002;41(5):E14.) TTP Reference: Chivo FRANCIS. Clinical practice. Thrombotic thrombocytopenic purpura. N Engl J Med. 2006 October 12;354(18):1927-35. Review. PLAN: -transfer to [facility] and to inpatient hematology service, Dr. 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 Renal dose meds. Avoid nephrotoxins. Seen and Discussed w/ Dr. Sergo greene Pager [phone] Renal Attending: The patient was examined together [...] Comments LAB SCAN 01/29/2013 11:49 AM EDT LANCE CREWMEMBER/MLRS SERGEANT SCAN 12/28/2012 9:39 AM EDT LAB SCAN [...] 12/27/2012 3:57 AM EDT BASIC METABOLIC PANEL Routine 12/27/2012 3:57 AM EDT ABO/RH TYPING [...] 12/26/2012 3:42 AM EDT BASIC METABOLIC PANEL Routine 12/26/2012 3:42 AM EDT VANCOMYCIN, TROUGH Timed 12/25/2012 6: 29 PM EDT APTT Routine 12/25/2012 3:26 PM EDT PROTHROMBIN TIME Routine 12/25/2012 3:26 PM EDT DUPLEX FOR DVT BILAT ARM Routine 12/25/2012 3:18 PM EDT PATHOLOGY SLIDE REVIEW Routine 3 12:04 PM EDT PATHOLOGY SLIDE REVIEW Routine 3 12:04 PM EDT DIFFERENTIAL, AUTOMATED Routine 12/26/19 13 [...] 12/25/2012 4:14 AM EDT BASIC METABOLIC PANEL Routine 12/25/2012 4:14 AM EDT DUPLEX FOR [...] 12/24/2012 3:58 AM EDT BASIC METABOLIC PANEL Routine 12/24/2012 3:58 AM EDT DIFFERENTIAL, AUTOMATED [...] 12/23/2012 5:45 AM EDT BASIC METABOLIC PANEL Routine 12/23/2012 5:45 AM EDT URINE CULTURE [...] 30 AM EDT DIFFERENTIAL, AUTOMATED Routine 12/23/19 13 5:00 AM EDT APTT Routine 12/22/2012 5:00 AM EDT PROTHROMBIN TIME Routine 12/22/2012 5:00 AM EDT FIBRINOGEN Routine 12/22/2012 5:00 AM EDT CBC (WITH DIFF) Routine 12/22/2012 5:00 AM EDT PHOSPHORUS Routine 12/22/2012 5:00 AM EDT MAGNESIUM Routine 12/22/2012 5:00 AM EDT LACTATE DEHYDROGENASE Routine 12/22/2012 5:00 AM EDT BASIC METABOLIC PANEL Routine 12/22/2012 5:00 AM EDT HEPATITIS B SURFACE ANTIGEN Timed 12/21/2012 7:35 PM EDT VANCOMYCIN, TROUGH Timed 12/21/2012 7: 35 PM EDT MRI BRAIN WWO CONTRAST (GENERIC) Routine 12/21/2012 5:18 PM EDT BLOOD CULTURE Routine 12/21/2012 3:40 PM EDT BASIC METABOLIC PANEL Routine 12/21/2012 3:40 PM EDT VITAMIN B6 [...] 12/21/2012 6:50 AM EDT BASIC METABOLIC PANEL Routine 12/21/2012 6:50 AM EDT PREPARE RBC [...] 12/20/2012 1:55 PM EDT BASIC METABOLIC PANEL STAT 12/20/2012 1:55 PM EDT ABO/RH TYPING Routine 12/20/2012 12:20 PM EDT ANTIBODY SCREEN Routine 12/20/2012 12:20 PM EDT TYPE AND SCREEN ([facility]/P/JENNIFER) Routine 12/20/2012 12:20 PM EDT H. PYLORI [...] 12/20/2012 4:50 AM EDT BASIC METABOLIC PANEL Routine 12/20/2012 4:50 AM EDT DUPLEX FOR [...] 12/19/2012 3:20 AM EDT BASIC METABOLIC PANEL Routine 12/19/2012 3:20 AM EDT CALCIUM IONIZED WHOLE BLOOD, CLEO Routine 12/18/2012 9:05 PM EDT EGD, UPPER GI ENDOSCOPY (WRVU 2.09) 12/18/2012 4:33 PM EDT upper gi bleeding UPPER GI ENDOSCOPY Routine 12/18/2012 4: 09 PM EDT CALCIUM IONIZED WHOLE BLOOD, CLEO Routine 12/18/2012 3:50 PM EDT CALCIUM IONIZED WHOLE BLOOD, CLEO STAT 12/18/2012 2:35 PM EDT SCAN, PERIPHERAL BLOOD Routine 3 4:25 AM EDT DIFFERENTIAL, AUTOMATED Routine 12/19/19 13 4:25 AM EDT CBC (WITH DIFF) Routine 12/18/2012 4:25 AM EDT PHOSPHORUS Routine 12/18/2012 4:25 AM EDT MAGNESIUM Routine 12/18/2012 4:25 AM EDT LACTATE DEHYDROGENASE Routine 12/18/2012 4:25 AM EDT BASIC METABOLIC PANEL Routine 12/18/2012 4:25 AM EDT XR CHEST PA AND LATERAL Routine 12/18/19 8:31 PM EDT RED TUBE HOLD Routine 12/17/2012 6:49 PM EDT HEPATITIS C ANTIBODY Routine 12/17/2012 6:49 PM EDT KIANA ANTIBODY SCREEN Routine 12/17/2012 6 :49 PM EDT PATHOLOGY SLIDE REVIEW Routine 3 2:24 PM EDT PATHOLOGY SLIDE REVIEW Routine 3 1:00 PM EDT DIFFERENTIAL, AUTOMATED Routine 12/18/19 13 1:00 PM EDT CBC (WITH DIFF) Routine 12/17/2012 1:00 PM EDT PREPARE RBC Routine 12/17/2012 9:35 AM EDT SCAN, PERIPHERAL BLOOD Routine 3 4:00 AM EDT DIFFERENTIAL, AUTOMATED Routine 12/18/19 13 4:00 AM EDT CBC (WITH DIFF) Routine 12/17/2012 4:00 AM EDT LACTATE DEHYDROGENASE Routine 12/17/2012 4:00 AM EDT BASIC METABOLIC PANEL Routine 12/17/2012 4:00 AM EDT STOOL CULTURE SCREEN ([facility]/CGP/APD/NLH) Routine 12/17/2012 3:32 AM EDT CAMPYLOBACTER ANTIGEN Routine 12/17/2012 3:32 AM EDT CRYPTOSPORIDIUM OOCYST ANTIGEN ([facility]/CGP/APD) Routine 12/17/2012 3:32 AM EDT SHIGA TOXIN ASSAY Routine 12/17/2012 3:3 2 AM EDT GIARDIA/CRYPTOSPORIDIUM ANTIGENS ([facility]/CGP/APD/NL) Routine 12/17/2012 3:32 AM EDT GIARDIA ANTIGEN ([facility]/CGP/APD/NL) Routine 12/17/2012 3:32 AM EDT STOOL CULTURE Routine 12/17/2012 3:32 AM EDT MRI BRAIN WO CONTRAST Routine 12/16/2012 9:02 PM EDT HIV SCREEN, 4TH GENERATION ([facility]/CGP/APD/NL) Routine 12/16/2012 6:[address] PICC [...] 3 4:40 AM EDT BASIC METABOLIC PANEL Routine 12/16/2012 4:40 AM EDT XR ABDOMEN [...] 12/15/2012 3:50 AM EDT BASIC METABOLIC PANEL Routine 12/15/2012 3:50 AM EDT IR TUNNELED CENTRAL VENOUS ACCESS NON-DIALYSIS Routine 12/14/2012 6:05 PM EDT [id number] ACTIVITY STAT 12/14/2012 2:0 2 PM EDT CYTOPLASMIC NEUTROPHILIC AB Routine 12/14/2012 12:03 PM EDT PROTEINASE-3 ANTIBODY Routine 12/14/2012 12:03 PM EDT MYELOPEROXIDASE AB Routine 12/14/2012 12 :03 PM EDT ABO/RH TYPING STAT 12/14/2012 9:47 AM EDT RETICULOCYTE COUNT STAT 12/14/2012 9: 47 AM EDT ANTIBODY SCREEN STAT 12/14/2012 9:47 AM EDT TYPE AND SCREEN ([facility]ENNIFER) STAT 12/14/2012 9:47 AM EDT DIRECT ANTIGLOBULIN TEST STAT 12/14/2012 9:47 AM EDT PATHOLOGY SLIDE REVIEW Routine 3 5:49 AM EDT PATHOLOGY SLIDE REVIEW Routine 3 5:49 AM EDT SCAN, PERIPHERAL BLOOD Routine 3 5:49 AM EDT DIFFERENTIAL, AUTOMATED Routine 12/15/19 13 5:49 AM EDT CBC (WITH DIFF) Routine 12/14/2012 5:49 AM EDT BASIC METABOLIC PANEL Routine 12/14/2012 5:49 AM EDT LACTATE DEHYDROGENASE [...] 3 10:00 PM EDT BASIC METABOLIC PANEL Routine 12/13/2012 10:00 PM EDT documented in this encounter Results * SCAN DOC: LAB (01/29/2013 11:49 AM EDT) Narrative 01/29/2013 11:49 AM EDT Procedure Note Provider, Scanning - 01/29/2013 11:49 AM EDT Scanning Provider MEDIA MGR SCAN EXT O RDR/RSLT * SCAN DOC: LANCE CREWMEMBER/MLRS SERGEANT (12/28/2012 9:39 AM EDT) Anatomical Region Laterality [...] * Vancomycin, trough (12/27/2012 2:30 PM EDT) [facility] Signature Vancomycin, Trough 22.5 mg/L Corey [facility]AG[facility] Comment: Therapeutic range for complicated infections [...] Place PICC Line: Contact Vascular Access Page [phone] (12/27/2012 12:12 PM EDT) Narrative Edvin Brian [...] to the planned procedure. Hand Hygiene: The aquatic laborer did perform hand hygiene prior to line insertion. Catheter type: PICC Lot number: [id number] Procedure Technique: Skin was prepped with chlorhexidine. [...] to the planned procedure. Hand Hygiene: The aquatic laborer did perform hand hygiene prior to line insertion. Catheter type: PICC Lot number: [id number] Procedure Technique: Skin was prepped with chlorhexidine. [...] (ABNORMAL) Differential, Automated (12/27/2012 3:57 AM EDT) Neutrophil % 68.8 34.0 - 71.0 % CERNER MILLENNIUM Neutrophil Absolute 5.61 1.50 - 6.30 x10(3)/mc L CERNER MILLENNIUM Lymph % 16.8(L) 19.0 - 53.0 % CERNER MILLENNIUM Lymphocytes Abs 1.4 1.0 - 3.6 x10(3)/mc L CERNER MILLENNIUM Monocyte % 10.0 4.0 - 13.0 % CERNER MILLENNIUM Monocyte Abs 0.8 0.2 - 1.0 x10(3)/mc L CERNER MILLENNIUM Eos % 4.0 0.0 - 7.0 % CERNER MILLENNIUM Eosinophils Abs 0.3 0.0 - 0.5 x10(3)/mc L CERNER MILLENNIUM Basophil % 0.2 0.0 - 2.0 % CERNER MILLENNIUM Baso [...] MD HEMATOLOGY ORDERABLE S CERNER MILLENNIUM * Prothrombin Time (12/27/2012 3:57 AM EDT) Prothrombin Time 14.0 12.0 - 15.0 sec [facility] Comment: [facility] Transfusion Committee Guidelines: INR less than 2.0, PTT less than OR equal to 43.5 seconds, or Fibrinogen greater than or equal to 100 mg/dl indicate adequate procoagulant activity for hemostasis in patients without underlying bleeding disorders. International Normalization Ratio 1.0 0.9 - 1.1 [facility] Blood specimen (specimen) 12/27/2012 3:57 AM EDT 12/27/2012 4:03 AM EDT Narrative Resulting Agency Comment Spec In Lab Haris Jarvis MD HEMATOLOGY ORDERABLE S Performing Organization Address [facility] Co de Phone Number [facility] * Phosphorus (12/27/2012 3:57 AM EDT) Phosphorus 4.4 2.5 - 4.5 mg/dL [facility] Blood specimen (specimen) 12/27/2012 3:57 AM EDT 12/27/2012 4:03 AM EDT Narrative Resulting Agency Comment Spec In Lab Fabi Bliss MD CHEMISTRY ORDERA BLES Performing Organization Address [facility] de Phone Number [facility] * Magnesium (12/27/2012 3:57 AM EDT) Magnesium 0.81 0.69 - 1.07 mmol/L [facility] Blood specimen (specimen) 12/27/2012 3:57 AM EDT 12/27/2012 4:03 AM EDT Narrative Resulting Agency Comment Spec In Lab Fabi Bliss MD CHEMISTRY ORDERA BLES Performing Organization Address [facility] Co de Phone Number [facility] * (ABNORMAL) Lactate Dehydrogenase (12/27/2012 3:57 AM EDT) Lactate Dehydrogenase 257(H) 110 - 220 unit/L CERNER MILLENNIUM Blood specimen (specimen) 12/27/2012 3:57 AM EDT 12/27/2012 4:03 AM EDT Narrative Resulting Agency Comment Spec In Lab Fabi Bliss MD CHEMISTRY ORDERA ERICK CERNER MILLENNIUM * (ABNORMAL) Basic Metabolic Panel (non-fasting) (12/27/2012 3:57 AM EDT) [facility] Signature Glucose 108 60 - 199 mg/dL CERNER MILLENNIUM Comment:Diabetes: >=200 mg/d L plus symptoms Blood Urea Nitrogen 10 8 - 18 mg/dL CERNER MILLENNIUM Creatinine 2.10(H) 0.70 - 1.20 mg/dL CERNER MILLENNIUM Comment: Please note that the pediatric reference intervals supplied above were not validated at [facility]. Results from pediatric patients should be interpreted [...] 104 98 - 107 mmol/L CERNER MILLENNIUM Carbon Dioxide 23 22 - 31 mmol/L CERNER MILLENNIUM Anion Gap 11 5 - 15 mmol/L CERNER MILLENNIUM Calcium 8.3(L) 8.5 - 10.5 mg/dL CERNER MILLENNIUM Est [...] CBC (with Diff) (12/27/2012 3:57 AM EDT) White Blood Cell 8.2 4.0 - 10.0 x10(3)/mc L CERNER MILLENNIUM Red Blood Cell 3.02(L) 3.93 - 5.22 x10(6)/mc L CERNER MILLENNIUM Hemoglobin 9.0(L) 11.2 - 15.7 gm/dL CERNER MILLENNIUM Hematocrit 27.0(L) 34.0 - 45.0 % CERNER MILLENNIUM Mean Cell Volume 89.4 79.0 - 94.0 fL CERNER MILLENNIUM Mean Cell Hemoglobin 29.8 26.6 - 32.2 pg CERNER MILLENNIUM Mean Cell Hemoglobin Concentration 33.3 32.0 - 36.5 gm/dL CERNER MILLENNIUM Platelet 317 145 - 370 x10(3)/mc L CERNER MILLENNIUM RDW Standard Deviation 48.5(H) 35.0 - 46.0 fL CERNER MILLENNIUM RDW coefficient of variation 15.1(H) 10.9 - 14.4 % CERNER MILLENNIUM Mean Platelet Volume 10.5 9.0 - 12.0 fL CERNER MILLENNIUM Blood specimen (specimen) 12/27/2012 3:57 AM EDT 12/27/2012 4:03 AM EDT Narrative Resulting Agency Comment Spec In Lab Luis E Trotter MD HEMATOLOGY ORDERABLE S BAR ARCOSENNIUM * (ABNORMAL) APTT (12/26/2012 10:31 AM EDT) Partial Thromboplastin Time 36(H) 25 - 35 sec [facility] Comment: Recommended therapeutic PTT range for full dose unfractionated heparin is 80-114 seconds. Blood specimen (specimen) 12/26/2012 10:31 AM EDT 12/26/2012 10:37 AM EDT Narrative Resulting Agency Comment Spec In Lab Haris Jarvis MD HEMATOLOGY ORDERABLE S Performing Organization Address [facility] de Phone Number [facility] * Antibody screen (12/26/2012 10:31 AM EDT) Ab Screen Interp Negative [facility] Expires at [id number] on: [id number] [facility] Blood specimen (specimen) 12/26/2012 10:31 AM EDT 12/26/2012 10:43 AM EDT Narrative Resulting Agency Comment Spec In Lab Ankit Oahra MD BLOOD BANK LAB ORDER VIKAS Performing Organization Address [facility] de Phone Number [facility] * ABO/Rh Typing (12/26/2012 10:31 AM EDT) ABORH Type AB Pos [facility] Blood specimen (specimen) 12/26/2012 10:31 AM EDT 12/26/2012 10:43 AM EDT Narrative Resulting Agency Comment Spec In Lab Ankit Ohara MD BLOOD BANK LAB ORDER VIKAS Performing Organization Address [facility] de Phone Number [facility] * Free Thyroxine Index (12/26/2012 3:42 AM EDT) Free Thyroxine Index 6.8 4.5 - 9.5 mcg/dL [facility] Comment: Females: 5. 5-10.5 mcg/dL Blood specimen (specimen) 12/26/2012 3:42 AM EDT 12/26/2012 3:47 AM EDT Narrative Resulting Agency Comment Spec In Lab Luis E Trotter MD CHEMISTRY ORDERABLES Performing Organization Address [facility] de Phone Number [facility] * T3 (12/26/2012 3:42 AM EDT) Pathologist [facility] T3 Total 77 75 - 170 ng/dL [facility] Blood specimen (specimen) 12/26/2012 3:42 AM EDT 12/26/2012 3:47 AM EDT Narrative Resulting Agency Comment Spec In Lab Luis E Trotter MD CHEMISTRY ORDERABLES Performing Organization Address [facility] de Phone Number [facility] * T Uptake (12/26/2012 3:42 AM EDT) Pathologist [facility] T Uptake 0.99 0.80 - 1.30 ratio [facility] Comment: Tup assay is directly proportional to Thyroid binding protein concentration, thus FT4 Index = TT4/Tup. Cord Blood Reference Range: ??0.74-1.28. Blood specimen (specimen) 12/26/2012 3:42 AM EDT 12/26/2012 3:47 AM EDT Narrative Resulting Agency Comment Spec In Lab Luis E Trotter MD CHEMISTRY ORDERABLES Performing Organization Address [facility] Phone Number [facility] * T4 (12/26/2012 3:42 AM EDT) [facility] T4 Total 6.7 5.1 - 10.8 mcg/dL [facility] Comment: Reference Range: Cord Blood: ??6.9-14.4 mcg/dL Females: ??7.2-14.2 mcg/dL Pediatric ranges: ??Interpret with caution-ranges have not been verified Blood specimen (specimen) 12/26/2012 3:42 AM EDT 12/26/2012 3:47 AM EDT Narrative Resulting Agency Comment Spec In Lab Luis E Trotter MD CHEMISTRY ORDERABLES Performing Organization Address [facility] de Phone Number [facility] * TSH (12/26/2012 3:42 AM EDT) Thyroid Stimulating Hormone 1.97 0.27 - 4.20 mcIU/mL CERNER MILLENNIUM Blood specimen (specimen) 12/26/2012 3:42 AM EDT 12/26/2012 3:47 AM EDT Narrative Resulting Agency Comment Spec In Lab Luis E Trotter MD CHEMISTRY ORDERABLES CERNER MILLENNIUM * Differential, Automated (12/26/2012 3:42 AM EDT) Neutrophil % 65.8 34.0 - 71.0 % CERNER MILLENNIUM Neutrophil Absolute 3.99 1.50 - 6.30 x10(3)/mcL CERNER MILLENNIUM Lymph % 19.1 19.0 - 53.0 % CERNER MILLENNIUM Lymphocytes Abs 1.2 1.0 - 3.6 x10(3)/mcL CERNER MILLENNIUM Monocyte % 10.0 4.0 - 13.0 % CERNER MILLENNIUM Monocyte Abs 0.6 0.2 - 1.0 x10(3)/mcL CERNER MILLENNIUM Eos % 4.3 0.0 - 7.0 % CERNER MILLENNIUM Eosinophils Abs 0.3 0.0 - 0.5 x10(3)/mcL CERNER MILLENNIUM Basophil % 0.5 0.0 - 2.0 % CERNER MILLENNIUM Baso [...] 0.05 x10(3)/mcL CERNER MILLENNIUM Blood specimen (specimen) 12/26/2012 3:42 AM EDT 12/26/2012 3:46 AM EDT Luis E Trotter MD HEMATOLOGY ORDERABLE S Performing Organization Address [facility] de Phone Number [facility] * Phosphorus (12/26/2012 3:42 AM EDT) Phosphorus 4.1 2.5 - 4.5 mg/dL [facility] Blood specimen (specimen) 12/26/2012 3:42 AM EDT 12/26/2012 3:46 AM EDT Narrative Resulting Agency Comment Spec In Lab Fabi Bliss MD CHEMISTRY ORDERA ERICK Performing Organization Address [facility] Phone Number [facility] * Magnesium (12/26/2012 3:42 AM EDT) Magnesium 0.80 0.69 - 1.07 mmol/L [facility] Blood specimen (specimen) 12/26/2012 3:42 AM EDT 12/26/2012 3:46 AM EDT Narrative Resulting Agency Comment Spec In Lab Fabi Bliss MD CHEMISTRY TAMMYA ERICK Performing Organization Address [facility] Phone Number [facility] * (ABNORMAL) Lactate Dehydrogenase (12/26/2012 3:42 AM EDT) Lactate Dehydrogenase 255(H) 110 - 220 unit/L [facility] Blood specimen (specimen) 12/26/2012 3:42 AM EDT 12/26/2012 3:46 AM EDT Narrative Resulting Agency Comment Spec In Lab Fabi Bliss MD CHEMISTRY ORDERA BLECornelius Performing Organization Address [facility] Phone Number [facility] * (ABNORMAL) Basic Metabolic Panel (non-fasting) (12/26/2012 3:42 AM EDT) Glucose 99 60 - 199 mg/dL [facility] Comment:Diabetes: >=200 mg/d L plus symptoms Blood Urea Nitrogen 11 8 - 18 mg/dL CERNER MILLENNIUM Creatinine 2.05(H) 0.70 - 1.20 mg/dL CERNER MILLENNIUM Comment: Please note that the pediatric reference intervals supplied above were not validated at [facility]. Results from pediatric patients should be interpreted [...] 106 98 - 107 mmol/L CERNER MILLENNIUM Carbon Dioxide 24 22 - 31 mmol/L CERNER MILLENNIUM Anion Gap 11 5 - 15 mmol/L CERNER MILLENNIUM Calcium 8.5 8.5 - 10.5 mg/dL CERNER MILLENNIUM Est [...] [facility] NOE * (ABNORMAL) CBC (with Diff) (12/26/2012 3:42 AM EDT) White Blood Cell 6.1 4.0 - 10.0 x10(3)/mc L CERNER MILLENNIUM Red Blood Cell 2.81(L) 3.93 - 5.22 x10(6)/mc L CERNER MILLENNIUM Hemoglobin 8.3(L) 11.2 - 15.7 gm/dL CERNER MILLENNIUM Hematocrit 25.3(L) 34.0 - 45.0 % CERNER MILLENNIUM Mean Cell Volume 90.0 79.0 - 94.0 fL CERNER MILLENNIUM Mean Cell Hemoglobin 29.5 26.6 - 32.2 pg CERNER MILLENNIUM Mean Cell Hemoglobin Concentration 32.8 32.0 - 36.5 gm/dL CERNER MILLENNIUM Platelet 231 145 - 370 x10(3)/mc L CERNER MILLENNIUM RDW Standard Deviation 49.2(H) 35.0 - 46.0 fL CERNER MILLENNIUM RDW coefficient of variation 15.2(H) 10.9 - 14.4 % CERNER MILLENNIUM Mean Platelet Volume 10.4 9.0 - 12.0 fL CERNER MILLENNIUM Blood specimen (specimen) 12/26/2012 3:42 AM EDT 12/26/2012 3:46 AM EDT Narrative Resulting Agency Comment Spec In Lab Luis E Trotter MD HEMATOLOGY ORDERABLE S [facility] * Vancomycin, trough (12/25/2012 6:29 PM EDT) [facility] Vancomycin, Trough 19.0 mg/L Corey FLAKITO PINEDAIUM Comment: Therapeutic range for complicated infections such [...] Jarvis MD CHEMISTRY ORDERABLES Performing Organization Address [facility] de Phone Number [facility] * APTT (12/25/2012 3:26 PM EDT) Partial Thromboplastin Time 31 25 - 35 sec [facility] Comment: Recommended therapeutic PTT range for full dose unfractionated heparin is 80-114 seconds. Blood specimen (specimen) 12/25/2012 3:26 PM EDT 12/25/2012 3:39 PM EDT Narrative Resulting Agency Comment Spec In Lab Haris Jarvis MD HEMATOLOGY ORDERABLE S Performing Organization Address [facility] Phone Number [facility] * Prothrombin Time (12/25/2012 3:26 PM EDT) Prothrombin Time 14.5 12.0 - 15.0 sec [facility] Comment: [facility] Transfusion Committee Guidelines: INR less than 2.0, PTT less than OR equal to 43.5 seconds, or Fibrinogen greater than or equal to 100 mg/dl indicate adequate procoagulant activity for hemostasis in patients without underlying bleeding disorders. International Normalization Ratio 1.1 0.9 - 1.1 [facility] Blood specimen (specimen) 12/25/2012 3:26 PM EDT 12/25/2012 3:39 PM EDT Narrative Resulting Agency Comment Spec In Lab Haris Jarvis MD HEMATOLOGY ORDERABLE S Performing Organization Address [facility] de Phone Number [facility] * Duplex for DVT, arm, bilat (12/25/2012 3:18 PM EDT) VB Text Report Department: Vascular Surgery Lab Patient: [id number] (ANUM HENRIQUEZ) CPT Code: 93176 ICD-9: 451.84 Referring Physician: HARIS JARVIS Indication: [...] 12:04 PM EDT) Smear Review Report ? [facility] ? Provider: ?? HARIS JARVIS ? Pt. Name: ?? FLORENCE ANUM Eliza ? Acc #: ?[id number] ? Pt. ? Col Date: ?? 12/25/2012 [...] the most recent ? previous smear (see [id number]). Compared to the previous, the current ? material shows fewer schistocytes. Note is further made of the declining ? LDH and increasing haptoglobin and platelet count over time, both of which ? 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 BAR NOE 12/25/2012 12:0 4 PM EDT Haris Jarvis MD HEMATOLOGY ORDERABLE S [facility] * (ABNORMAL) Differential, Automated (12/25/2012 12:04 PM EDT) Neutrophil % 72.8(H) 34.0 - 71.0 % [facility] Neutrophil Absolute 4.85 1.50 - 6.30 x10(3)/mc L CERNER MILLENNIUM Lymph % 15.0(L) 19.0 - 53.0 % CERNER MILLENNIUM Lymphocytes Abs 1.0 1.0 - 3.6 x10(3)/mc L CERNER MILLENNIUM Monocyte % 8.1 4.0 - 13.0 % CERNER MILLENNIUM Monocyte Abs 0.5 0.2 - 1.0 x10(3)/mc L CERNER MILLENNIUM Eos % 3.4 0.0 - 7.0 % CERNER [...] CERNER MILLENNIUM * (ABNORMAL) CBC (with Diff) (12/25/2012 12:04 PM EDT) White Blood Cell 6.7 4.0 - 10.0 x10(3)/mc L CERNER MILLENNIUM Red Blood Cell 3.00(L) 3.93 - 5.22 x10(6)/mc L CERNER MILLENNIUM Hemoglobin 8.8(L) 11.2 - 15.7 gm/dL CERNER MILLENNIUM Hematocrit 26.9(L) 34.0 - 45.0 % CERNER MILLENNIUM Mean Cell Volume 89.7 79.0 - 94.0 fL CERNER MILLENNIUM Mean Cell Hemoglobin 29.3 26.6 - 32.2 pg CERNER MILLENNIUM Mean Cell Hemoglobin Concentration 32.7 32.0 - 36.5 gm/dL CERNER MILLENNIUM Platelet 264 145 - 370 x10(3)/mc L CERNER MILLENNIUM RDW Standard Deviation 49.5(H) 35.0 - 46.0 fL CERNER MILLENNIUM RDW coefficient of variation 15.4(H) 10.9 - 14.4 % CERNER MILLENNIUM Mean Platelet Volume 10.6 9.0 - 12.0 fL CERELIO MILLENNIUM Blood specimen (specimen) 12/25/2012 12:04 PM EDT 12/25/2012 12:08 PM EDT Narrative Resulting Agency Comment Spec In Lab Haris Jarvis MD HEMATOLOGY ORDERABLE S Performing Organization Address [facility] Co de Phone Number BAR PINEDAI[facility] * Haptoglobin (12/25/2012 12:04 PM EDT) Haptoglobin 70 30 - 200 mg/dL [facility] Comment: Haptoglobin concentrations in newborns is low to undetectable; however, adult concentrations are usually attained by 4 months of age. ??No sex-related differences for haptoglobin have been detected. Blood specimen (specimen) 12/25/2012 12:04 PM EDT 12/25/2012 12:08 PM EDT Narrative Resulting Agency Comment Spec In Lab Haris Jarvis MD CHEMISTRY ORDERABLES Performing Organization Address [facility] Co de Phone Number [facility] * (ABNORMAL) Lactate Dehydrogenase (12/25/2012 12:04 PM EDT) Lactate Dehydrogenase 288(H) 110 - 220 unit/L [facility] Blood specimen (specimen) 12/25/2012 12:04 PM EDT 12/25/2012 12:08 PM EDT Narrative Resulting Agency Comment Spec In Lab Haris Jarvis MD CHEMISTRY ORDERABLES [facility] * Peripheral Smear Review (12/25/2012 12:04 PM EDT) Peripheral Smear Review See Comment [facility] Comment: When completed by the Pathologist, report [id number] will display under Hematopathology Reports. Blood specimen (specimen) 12/25/2012 12:04 PM EDT 12/25/2012 12:08 PM EDT Narrative Resulting Agency Comment Spec In Lab Haris Jarvis MD HEMATOLOGY ORDERABLE S [facility] * C4 Complement (12/25/2012 12:04 PM EDT) Complement C4 17 10 - 40 mg/dL [facility] Blood specimen (specimen) 12/25/2012 12:04 PM EDT 12/25/2012 12:08 PM EDT Narrative Resulting Agency Comment Spec In Lab Haris Jarvis MD CHEMISTRY ORDERABLES [facility] * (ABNORMAL) C3 Complement (12/25/2012 12:04 PM EDT) Complement C3 86(L) 90 - 180 mg/dL [facility] Blood specimen (specimen) 12/25/2012 12:04 PM EDT 12/25/2012 12:08 PM EDT Narrative Resulting Agency Comment Spec In Lab Haris Jarvis MD CHEMISTRY ORDERABLES [facility] * Erythropoietin Level (12/25/2012 12:04 PM EDT) Erythropoietin (MAY) 17 4 - 24 mIU/mL [facility] Blood specimen (specimen) 12/25/2012 12:04 PM EDT 12/25/2012 2:17 PM EDT Narrative Resulting Agency Comment Spec In Lab Haris Jarvis MD LAB SEND OUT ORDERAB LES [facility] * Duplex Study for DVT, Bilat legs (12/25/2012 11:06 AM EDT) VB Text Report Department: Vascular Surgery Lab Patient: [id number] (ANUM HENRIQUEZ) CPT Code: 27837 ICD-9: 451.19 Referring Physician: HARIS JARVIS Indication: [...] (ABNORMAL) Differential, Automated (12/25/2012 4:14 AM EDT) Neutrophil % 66.0 34.0 - 71.0 % CERNER MILLENNIUM Neutrophil Absolute 3.63 1.50 - 6.30 x10(3)/mc L CERNER MILLENNIUM Lymph % 18.9(L) 19.0 - 53.0 % CERNER MILLENNIUM Lymphocytes Abs 1.0 1.0 - 3.6 x10(3)/mc L CERNER MILLENNIUM Monocyte % 9.8 4.0 - 13.0 % CERNER MILLENNIUM Monocyte Abs 0.5 0.2 - 1.0 x10(3)/mc L CERNER MILLENNIUM Eos % 4.7 0.0 - 7.0 % CERNER [...] HEMATOLOGY ORDERABLE S CERNER MILLENNIUM * Phosphorus (12/25/2012 4:14 AM EDT) Phosphorus 3.4 2.5 - 4.5 mg/dL [facility] Blood specimen (specimen) 12/25/2012 4:14 AM EDT 12/25/2012 4:22 AM EDT Narrative Resulting Agency Comment Spec In Lab Fabi Bliss MD CHEMISTRY ORDERA BLECornelius Performing Organization Address [facility] de Phone Number [facility] * Magnesium (12/25/2012 4:14 AM EDT) Pathologist [facility] Magnesium 0.80 0.69 - 1.07 mmol/L [facility] Blood specimen (specimen) 12/25/2012 4:14 AM EDT 12/25/2012 4:22 AM EDT Narrative Resulting Agency Comment Spec In Lab Fabi Bliss MD CHEMISTRY ORDERA BLECornelius Performing Organization Address [facility] de Phone Number [facility] * (ABNORMAL) Lactate Dehydrogenase (12/25/2012 4:14 AM EDT) Pathologist [facility] Lactate Dehydrogenase 249(H) 110 - 220 unit/L [facility] Blood specimen (specimen) 12/25/2012 4:14 AM EDT 12/25/2012 4:22 AM EDT Narrative Resulting Agency Comment Spec In Lab Fabi Bliss MD CHEMISTRY ORDERA BLES Performing Organization Address [facility] de Phone Number [facility] * (ABNORMAL) Basic Metabolic Panel (non-fasting) (12/25/2012 4:14 AM EDT) Pathologist [facility] Glucose 99 60 - 199 mg/dL [facility] Comment:Diabetes: >=200 mg/d L plus symptoms Blood Urea Nitrogen 10 8 - 18 mg/dL [facility] Creatinine 2.01(H) 0.70 - 1.20 mg/dL [facility] Comment: Please note that the pediatric reference intervals supplied above were not validated at [facility]. Results from pediatric patients should be interpreted [...] 106 98 - 107 mmol/L CERNER MILLENNIUM Carbon Dioxide 27 22 - 31 mmol/L CERNER MILLENNIUM Anion Gap 7 5 - 15 mmol/L CERNER MILLENNIUM Calcium 8.3(L) 8.5 - 10.5 mg/dL CERNER MILLENNIUM Est [...] CERELIO ARCOSENNIUM * (ABNORMAL) CBC (with Diff) (12/25/2012 4:14 AM EDT) White Blood Cell 5.5 4.0 - 10.0 x10(3)/mc L CERNER MILLENNIUM Red Blood Cell 2.77(L) 3.93 - 5.22 x10(6)/mc L CERNER MILLENNIUM Hemoglobin 8.3(L) 11.2 - 15.7 gm/dL CERNER MILLENNIUM Hematocrit 24.9(L) 34.0 - 45.0 % CERNER MILLENNIUM Mean Cell Volume 89.9 79.0 - 94.0 fL CERNER MILLENNIUM Mean Cell Hemoglobin 30.0 26.6 - 32.2 pg CERNER MILLENNIUM Mean Cell Hemoglobin Concentration 33.3 32.0 - 36.5 gm/dL CERNER MILLENNIUM Platelet 228 145 - 370 x10(3)/mc L CERNER MILLENNIUM RDW Standard Deviation 50.0(H) 35.0 - 46.0 fL CERNER MILLENNIUM RDW coefficient of variation 15.6(H) 10.9 - 14.4 % CERNER MILLENNIUM Mean Platelet Volume 10.7 9.0 - 12.0 fL CERNER MILLENNIUM Blood specimen (specimen) 12/25/2012 4:14 AM EDT 12/25/2012 4:22 AM EDT Narrative Resulting Agency Comment Spec In Lab Luis E Trotter MD HEMATOLOGY ORDERABLE S [facility] * Duplex for DVT, arm, bilat (12/24/2012 1:45 PM EDT) VB Text Report Department: Vascular Surgery Lab Patient: [id number] (ANUM HENRIQUEZ) CPT Code: 17406 ICD-9: 451.84 Referring Physician: ANKIT OHARA Indication: [...] Ohara MD VASCULAR ORDERABLES Performing Organization Address [facility] Co de Phone Number [facility] * Vancomycin, trough (12/24/2012 1:00 PM EDT) Vancomycin, Trough 14.2 mg/L Corey NOE Comment: Therapeutic range for [...] Ohara MD CHEMISTRY ORDERABLES Performing Organization Address [facility] Co de Phone Number [facility] * (ABNORMAL) Differential, Automated (12/24/2012 1:00 PM EDT) Neutrophil % 76.1(H) 34.0 - 71.0 % CERNER MILLENNIUM Neutrophil Absolute 5.53 1.50 - 6.30 x10(3)/mc L CERNER MILLENNIUM Lymph % 11.4(L) 19.0 - 53.0 % CERNER MILLENNIUM Lymphocytes Abs 0.8(L) 1.0 - 3.6 x10(3)/mc L CERNER MILLENNIUM Monocyte % 8.5 4.0 - 13.0 % CERNER MILLENNIUM Monocyte Abs 0.6 0.2 - 1.0 x10(3)/mc L CERNER MILLENNIUM Eos % 3.6 0.0 - 7.0 % CERNER [...] BAR PINEDAIUM * (ABNORMAL) CBC (with Diff) (12/24/2012 1:00 PM EDT) White Blood Cell 7.3 4.0 - 10.0 x10(3)/mc L CERNER MILLENNIUM Red Blood Cell 2.86(L) 3.93 - 5.22 x10(6)/mc L CERNER MILLENNIUM Hemoglobin 8.7(L) 11.2 - 15.7 gm/dL CERNER MILLENNIUM Hematocrit 25.5(L) 34.0 - 45.0 % CERNER MILLENNIUM Mean Cell Volume 89.2 79.0 - 94.0 fL CERNER MILLENNIUM Mean Cell Hemoglobin 30.4 26.6 - 32.2 pg CERNER MILLENNIUM Mean Cell Hemoglobin Concentration 34.1 32.0 - 36.5 gm/dL CERNER MILLENNIUM Platelet 249 145 - 370 x10(3)/mc L CERNER MILLENNIUM RDW Standard Deviation 50.3(H) 35.0 - 46.0 fL CERNER MILLENNIUM RDW coefficient of variation 15.7(H) 10.9 - 14.4 % CERNER MILLENNIUM Mean Platelet Volume 11.5 9.0 - 12.0 fL CERNER MILLENNIUM Blood specimen (specimen) 12/24/2012 1:00 PM EDT 12/24/2012 1:17 PM EDT Narrative Resulting Agency Comment Spec In Lab Ankit Ohaar MD HEMATOLOGY ORDERABLE S Performing Organization Address [facility] Co de Phone Number [facility] * Direct antiglobulin test (12/24/2012 1:00 PM EDT) Pathologist [facility] SEN Poly Negative CERELIO ARCOSENNIUM Blood specimen (specimen) 12/24/2012 1:00 PM EDT 12/24/2012 1:22 PM EDT Narrative Resulting Agency Comment Spec In Lab Ankit Ohara MD BLOOD BANK LAB ORDER VIKAS [facility] * (ABNORMAL) Reticulocyte Count (12/24/2012 1:00 PM EDT) Pathologist [facility] Reticulocyte % 1.5 0.5 - 2.4 % CERNER MILLENNIUM Retic Abs # 0.040 0.027 - 0.095 x10(6)/mcL CERNER MILLENNIUM Immature Retic% 5.5 2.3 - 15.9 % CERNER MILLENNIUM Reticulated Hgb 27.9(L) 28.8 - 38.9 pg CERNER MILLENNIUM Immature Plt % 4.2 0.0 - 7.4 % CERNER MILLENNIUM Blood specimen (specimen) 12/24/2012 1:00 PM EDT 12/24/2012 1:17 PM EDT Narrative Resulting Agency Comment Spec In Lab Ankit Ohara MD HEMATOLOGY ORDERABLE S Performing Organization Address [facility] Co de Phone Number [facility] * Haptoglobin (12/24/2012 1:00 PM EDT) Haptoglobin 75 30 - 200 mg/dL [facility] M[facility]UM Comment: Haptoglobin concentrations in newborns is low to undetectable; however, adult concentrations are usually attained by 4 months of age. ??No sex-related differences for haptoglobin have been detected. Blood specimen (specimen) 12/24/2012 1:00 PM EDT 12/24/2012 1:17 PM EDT Narrative Resulting Agency Comment Spec In Lab Ankit Ohara MD CHEMISTRY ORDERABLES Performing Organization Address [facility] de Phone Number [facility] * Bilirubin, total and direct (12/24/2012 1:00 PM EDT) Bilirubin, Total 0.4 0.2 - 1.3 mg/dL [facility] Bilirubin, Direct 0.1 0.0 - 0.3 mg/dL CERELIO MILLENNIUM Blood specimen (specimen) 12/24/2012 1:00 PM EDT 12/24/2012 1:17 PM EDT Narrative Resulting Agency Comment Spec In Lab Ankit Ohara MD CHEMISTRY ORDERABLES Performing Organization Address [facility] Co de Phone Number [facility] * SCAN DOC: LAB (12/24/2012 9:41 AM EDT) Narrative 12/24/2012 9:41 AM EDT Procedure Note Provider, Scanning - 12/24/2012 9:41 AM EDT Scanning Provider MEDIA MGR SCAN EXT O RDR/RSLT * Phosphorus (12/24/2012 3:58 AM EDT) Phosphorus 2.9 2.5 - 4.5 mg/dL [facility] Blood specimen (specimen) 12/24/2012 3:58 AM EDT 12/24/2012 3:58 AM EDT Narrative Resulting Agency Comment Spec In Lab Fabi Bliss MD CHEMISTRY ORDERA BLECornelius Performing Organization Address [facility] Co de Phone Number [facility] * Magnesium (12/24/2012 3:58 AM EDT) Pathologist [facility] Magnesium 0.74 0.69 - 1.07 mmol/L [facility] Blood specimen (specimen) 12/24/2012 3:58 AM EDT 12/24/2012 3:58 AM EDT Narrative Resulting Agency Comment Spec In Lab Fabi Bliss MD CHEMISTRY ORDERA BLECornelius Performing Organization Address [facility] de Phone Number [facility] * (ABNORMAL) Lactate Dehydrogenase (12/24/2012 3:58 AM EDT) Pathologist [facility] Lactate Dehydrogenase 237(H) 110 - 220 unit/L [facility] Blood specimen (specimen) 12/24/2012 3:58 AM EDT 12/24/2012 3:58 AM EDT Narrative Resulting Agency Comment Spec In Lab Fabi Bliss MD CHEMISTRY ORDERA BLES Performing Organization Address [facility] Co de Phone Number [facility] * (ABNORMAL) Basic Metabolic Panel (non-fasting) (12/24/2012 3:58 AM EDT) Glucose 95 60 - 199 mg/dL [facility] Comment:Diabetes: >=200 mg/d L plus symptoms Blood Urea Nitrogen 7(L) 8 - 18 mg/dL CERNER MILLENNIUM Creatinine 1.59(H) 0.70 - 1.20 mg/dL CERNER MILLENNIUM Comment: Please note that the pediatric reference intervals supplied above were not validated at [facility]. Results from pediatric patients should be interpreted [...] 7.9(L) 8.5 - 10.5 mg/dL CERNER MILLENNIUM Est Glomerular Filtration Rate 34(L) >=60 CERNER MILLENNIUM Comment: This estimated [...] ORDERABLES CERNER MILLENNIUM * (ABNORMAL) Differential, Automated (12/24/2012 3:45 AM EDT) Neutrophil % 72.0(H) 34.0 - 71.0 % CERNER MILLENNIUM Neutrophil Absolute 4.32 1.50 - 6.30 x10(3)/mc L CERNER MILLENNIUM Lymph % 15.3(L) 19.0 - 53.0 % CERNER MILLENNIUM Lymphocytes Abs 0.9(L) 1.0 - 3.6 x10(3)/mc L CERNER MILLENNIUM Monocyte % 7.8 4.0 - 13.0 % CERNER MILLENNIUM Monocyte Abs 0.5 0.2 - 1.0 x10(3)/mc L CERNER MILLENNIUM Eos % 4.5 0.0 - 7.0 % CERNER MILLENNIUM Eosinophils Abs 0.3 0.0 - 0.5 x10(3)/mc L CERNER MILLENNIUM Basophil % 0.2 0.0 - 2.0 % CERNER MILLENNIUM Baso [...] Eliza ?Ordered By: ANKIT OHARA ? MR#: [id number] ?LOC: ??1WST ? /Sex: ??1960 (52 years), ? Female ? PROCEDURE: Blood Culture ?SOURCE: Blood ? COLLECTED: 12/24/2012 03:45 ?FREE TEXT SOURCE: no site provided ? STARTED: 12/24/2012 07:36 ? FINAL REPORT ? Final Report ? Verified:2012 15:11 ? No growth at 5 days. ? PRELIMINARY REPORT ? Preliminary Report ? Verified:2012 15:10 ? No growth at 4 days. ? CERELIO ARCOSENNIUM Blood specimen (specimen) 12/24/2012 3:45 AM EDT 12/24/2012 7:35 AM EDT Narrative Resulting Agency Comment Spec In Lab Ankit Ohara MD MICROBIOLOGY - BLOOD ORDERABLES BAR NOE * (ABNORMAL) CBC (with Diff) (12/24/2012 3:45 AM EDT) White Blood Cell 6.0 4.0 - 10.0 x10(3)/mc L CERNER MILLENNIUM Red Blood Cell 2.66(L) 3.93 - 5.22 x10(6)/mc L CERNER MILLENNIUM Hemoglobin 7.9(L) 11.2 - 15.7 gm/dL CERNER MILLENNIUM Hematocrit 23.8(L) 34.0 - 45.0 % CERNER MILLENNIUM Mean Cell Volume 89.5 79.0 - 94.0 fL CERNER MILLENNIUM Mean Cell Hemoglobin 29.7 26.6 - 32.2 pg CERNER MILLENNIUM Mean Cell Hemoglobin Concentration 33.2 32.0 - 36.5 gm/dL CERNER MILLENNIUM Platelet 221 145 - 370 x10(3)/mc L CERNER MILLENNIUM RDW Standard Deviation 51.0(H) 35.0 - 46.0 fL CERNER MILLENNIUM RDW coefficient of variation 16.1(H) 10.9 - 14.4 % CERNER MILLENNIUM Mean Platelet Volume 11.2 9.0 - 12.0 fL CERELIO ARCOSENNIUM Blood specimen (specimen) 12/24/2012 3:45 AM EDT 12/24/2012 3:53 AM EDT Narrative Resulting Agency Comment Spec In Lab Luis E Trotter MD HEMATOLOGY ORDERABLE S Performing Organization Address City/[facility] Co de Phone Number BAR PINEDAIUM * Antibody screen (12/23/2012 1:29 [...] BANK LAB ORDER VIKAS Performing Organization Address City/[facility] Co de Phone Number BAR PINEDAIUM * Vancomycin, trough (12/23/2012 1:29 PM EDT) Vancomycin, Trough 9.7 mg/L Corey NOE Comment: Therapeutic range for [...] Ohara MD CHEMISTRY ORDERABLES BAR NOE * Transfuse RBC (12/23/2012 10:14 AM EDT) Ankit Ohara MD NURSING TREATMENT OR DERABLES - BLOOD ADMIN * Blood culture (12/23/2012 9:15 AM EDT) Blood Culture ? Patient Name: ANUM HENRIQUEZ ?Ordered By: ANKIT OHARA ? MR#: [id number] ?LOC: ??1WST ? /Sex: ??1960 (52 years), [...] MICROBIOLOGY - BLOOD ORDERABLES Performing Organization Address [facility]/ZIP Co de Phone Number BAR PINEDAIUM * Prepare RBC (12/23/2012 6:40 AM EDT) Dispensed? Yes BAR PINEDAIUM Blood specimen (specimen) 12/23/2012 6:40 AM EDT 12/23/2012 6:37 AM EDT Ankit Ohara MD BLOOD BANK PRODUCT O RDERABLES Performing Organization Address [facility]/ZIP Co de Phone Number BAR PINEDAIUM * (ABNORMAL) Differential, Automated (12/23/2012 5:45 AM EDT) Neutrophil % 74.3(H) 34.0 - 71.0 % CERNER MILLENNIUM Neutrophil Absolute 4.80 1.50 - 6.30 x10(3)/mc L CERNER MILLENNIUM Lymph % 13.5(L) 19.0 - 53.0 % CERNER MILLENNIUM Lymphocytes Abs 0.9(L) 1.0 - 3.6 x10(3)/mc L CERNER MILLENNIUM Monocyte % 7.7 4.0 - 13.0 % CERNER MILLENNIUM Monocyte Abs 0.5 0.2 - 1.0 x10(3)/mc L CERNER MILLENNIUM Eos % 4.0 0.0 - [...] Luis E Trotter MD HEMATOLOGY ORDERABLE S [facility] * Blood culture (12/23/2012 5:45 AM EDT) Blood Culture ? Patient Name: ANUM HENRIQUEZ ?Ordered By: ANKIT OHARA ? MR#: [id number] ?LOC: ??1WST ? /Sex: ??1960 (52 years), [...] MICROBIOLOGY - BLOOD ORDERABLES Performing Organization Address [facility] Co de Phone Number [facility] * Phosphorus (12/23/2012 5:45 AM EDT) Phosphorus 2.9 2.5 - 4.5 mg/dL [facility] Blood specimen (specimen) 12/23/2012 5:45 AM EDT 12/23/2012 6:08 AM EDT Narrative Resulting Agency Comment Spec In Lab Fabi Bliss MD CHEMISTRY ORDERA BLES Performing Organization Address [facility] Co de Phone Number [facility] * Magnesium (12/23/2012 5:45 AM EDT) Magnesium 0.71 0.69 - 1.07 mmol/L [facility] Blood specimen (specimen) 12/23/2012 5:45 AM EDT 12/23/2012 6:08 AM EDT Narrative Resulting Agency Comment Spec In Lab Fabi Bliss MD CHEMISTRY ORDERA BLES CERNER MILLENNIUM * (ABNORMAL) Lactate Dehydrogenase (12/23/2012 5:45 AM EDT) Lactate Dehydrogenase 240(H) 110 - 220 unit/L CERNER MILLENNIUM Blood specimen (specimen) 12/23/2012 5:45 AM EDT 12/23/2012 6:08 AM EDT Narrative Resulting Agency Comment Spec In Lab Fabi Bliss MD CHEMISTRY ORDERA BLES Performing Organization Address [facility] Co de Phone Number CERNER MILLENNIUM * (ABNORMAL) Basic Metabolic Panel (non-fasting) (12/23/2012 5:45 AM EDT) Glucose 92 60 - 199 mg/dL CERNER MILLENNIUM Comment:Diabetes: >=200 mg/d L plus symptoms Blood Urea Nitrogen 11 8 - 18 mg/dL CERNER MILLENNIUM Creatinine 1.52(H) 0.70 - 1.20 mg/dL CERNER MILLENNIUM Comment: Please note that the pediatric reference intervals supplied above were not validated at [facility]. Results from pediatric patients should be interpreted [...] 104 98 - 107 mmol/L CERNER MILLENNIUM Carbon Dioxide 26 22 - 31 mmol/L CERNER MILLENNIUM Anion Gap 8 5 - 15 mmol/L CERNER MILLENNIUM Calcium 7.8(L) 8.5 - 10.5 mg/dL CERNER MILLENNIUM Est Glomerular Filtration Rate 36(L) >=60 CERNER MILLENNIUM Comment: This estimated [...] Lab Luis E Trotter MD CHEMISTRY ORDERABLES [facility] * (ABNORMAL) CBC (with Diff) (12/23/2012 5:45 AM EDT) White Blood Cell 6.5 4.0 - 10.0 x10(3)/mc L CERNER MILLENNIUM Red Blood Cell 2.29(L) 3.93 - 5.22 x10(6)/mc L CERNER MILLENNIUM Hemoglobin 6.8(L) 11.2 - 15.7 gm/dL CERNER MILLENNIUM Hematocrit 20.9(L) 34.0 - 45.0 % CERNER MILLENNIUM Mean Cell Volume 91.3 79.0 - 94.0 fL CERNER MILLENNIUM Mean Cell Hemoglobin 29.7 26.6 - 32.2 pg CERNER MILLENNIUM Mean Cell Hemoglobin Concentration 32.5 32.0 - 36.5 gm/dL CERNER MILLENNIUM Platelet 186 145 - 370 x10(3)/mc L CERNER MILLENNIUM RDW Standard Deviation 47.8(H) 35.0 - 46.0 fL CERNER MILLENNIUM RDW coefficient of variation 14.7(H) 10.9 - 14.4 % CERNER MILLENNIUM Mean Platelet Volume 10.7 9.0 - 12.0 fL CERNER MILLENNIUM Blood specimen (specimen) 12/23/2012 5:45 AM EDT 12/23/2012 6:08 AM EDT Narrative Resulting Agency Comment Spec In Lab Luis E Trotter MD HEMATOLOGY ORDERABLE S BAR NOE * Urine culture Urine (12/23/2012 1:45 AM EDT) Urine Culture ? Patient Name: ANUM HENRIQUEZ ?Ordered By: ANKIT OHARA ? MR#: [id number] ?LOC: ??1WST ? /Sex: ??1960 (52 years), [...] Ohara MD MICROBIOLOGY - GENER AL ORDERABLES [facility] SpiceCSMENNIUM * (ABNORMAL) Urinalysis with microscopic (12/23/2012 1:44 AM EDT) Glucose, Urine Dipstick Negative Negative mg/dL CERNER MILLENNIUM Protein, Urine Dipstick 100(A) Neg mg/dL CERNER MILLENNIUM Bilirubin, Urine Dipstick Negative Negative mg/dL CERNER MILLENNIUM Urobilinogen, Urine Dipstick Normal mg/dL CERNER MILLENNIUM pH, Urn (dipstick) 8.5(H) 5.0 - 8.0 CERNER MILLENNIUM Blood, Urine Dipstick Trace(A) Neg CERNER MILLENNIUM Ketone, Urine Dipstick Negative mg/dL CERNER MILLENNIUM Nitrite, Urine Dipstick Negative CERNER MILLENNIUM Leukocytes, Urine Dipstick Negative mcL CERNER MILLENNIUM Appearance, Urine Dipstick Clear Clear CERNER MILLENNIUM Specific [place] Urine Automated 1.009 1.002 - 1.030 CERNER MILLENNIUM Color, Urine Dipstick Light Yellow Yellow CERNER MILLENNIUM RBC, Urine 2 0 - 4 /HPF CERNER MILLENNIUM WBC, Urine 2 0 - 5 /HPF CERNER MILLENNIUM Urine specimen (specimen) 12/23/2012 1:44 AM EDT 12/23/2012 1:58 AM EDT Narrative Resulting Agency Comment Spec In Lab Ankit Ohara MD URINE ORDERABLES [facility] * Helicobacter pylori Antigen Stool (12/22/2012 6:24 PM EDT) H pylori Antigen, Stool Negative Negative CERNER MILLENNIUM Comment: Test Performed by: [employer] [address], [place] [address] Drying Tumbler Operator: Jennifer Ramirez, Ph.D. Stool specimen (specimen) 12/22/2012 6:24 PM EDT 12/24/2012 2:42 PM EDT Narrative Resulting Agency Comment Spec In Lab Ankit Ohara MD MICROBIOLOGY - GENER AL ORDERABLES CERELIO MILLENNIUM * (ABNORMAL) Differential, Automated (12/22/2012 1:16 PM EDT) Neutrophil % 83.0(H) 34.0 - 71.0 % CERNER MILLENNIUM Neutrophil Absolute 8.81(H) 1.50 - 6.30 x10(3)/mc L CERNER MILLENNIUM Lymph % 7.6(L) 19.0 - 53.0 % CERNER MILLENNIUM Lymphocytes Abs 0.8(L) 1.0 - 3.6 x10(3)/mc L CERNER MILLENNIUM Monocyte % 7.0 4.0 - 13.0 % CERNER MILLENNIUM Monocyte Abs 0.7 0.2 - 1.0 x10(3)/mc L CERNER MILLENNIUM Eos % 2.1 0.0 - 7.0 % CERNER MILLENNIUM Eosinophils Abs 0.2 0.0 - 0.5 x10(3)/mc L CERNER MILLENNIUM Basophil % 0.1 0.0 - 2.0 % CERNER MILLENNIUM Baso [...] EDT Ankit Ohara MD HEMATOLOGY ORDERABLE S CERELIO ARCOSENNIUM * (ABNORMAL) CBC (with Diff) (12/22/2012 1:16 PM EDT) White Blood Cell 10.6(H) 4.0 - 10.0 x10(3)/mc L CERNER MILLENNIUM Red Blood Cell 2.44(L) 3.93 - 5.22 x10(6)/mc L CERNER MILLENNIUM Hemoglobin 7.3(L) 11.2 - 15.7 gm/dL CERNER MILLENNIUM Hematocrit 21.9(L) 34.0 - 45.0 % CERNER MILLENNIUM Mean Cell Volume 89.8 79.0 - 94.0 fL CERNER MILLENNIUM Mean Cell Hemoglobin 29.9 26.6 - 32.2 pg CERNER MILLENNIUM Mean Cell Hemoglobin Concentration 33.3 32.0 - 36.5 gm/dL CERNER MILLENNIUM Platelet 165 145 - 370 x10(3)/mc L CERNER MILLENNIUM RDW Standard Deviation 46.3(H) 35.0 - 46.0 fL CERNER MILLENNIUM RDW coefficient of variation 14.5(H) 10.9 - 14.4 % CERNER MILLENNIUM Mean Platelet Volume 10.4 9.0 - 12.0 fL CERNER MILLENNIUM Blood specimen (specimen) 12/22/2012 1:16 PM EDT 12/22/2012 1:23 PM EDT Narrative Resulting Agency Comment Spec In Lab Ankit Ohara MD HEMATOLOGY ORDERABLE S [facility] * Blood culture (12/22/2012 1:16 PM EDT) Blood Culture ? Patient Name: ANUM HENRIQUEZ ?Ordered By: ANKIT OHARA ? MR#: [id number] ?LOC: ??1WST ? /Sex: ??1960 (52 years), [...] No growth at 4 days. ? BAR MILLENNIUM Blood specimen (specimen) PERIPHERALLY INSERTED CENTRAL CATHETER / Unknown 12/22/2012 1:16 PM EDT 12/22/2012 1:26 PM EDT Narrative Resulting Agency Comment Spec In Lab Ankit Ohara MD MICROBIOLOGY - BLOOD ORDERABLES BAR PINEDAIUM * Blood culture (12/22/2012 1:01 PM EDT) Blood Culture ? Patient Name: ANUM HENRIQUEZ ?Ordered By: ANKIT OHARA ? MR#: [id number] ?LOC: ??1WST ? /Sex: ??1960 (52 years), [...] No growth at 4 days. ? BAR MILLENNIUM Blood specimen (specimen) ANTECUBITAL REGION STRUCTURE / Unknown 12/22/2012 1:01 PM EDT 12/22/2012 1:12 PM EDT Narrative Resulting Agency Comment Spec In Lab Ankit Ohara MD MICROBIOLOGY - BLOOD ORDERABLES BAR ARCOSENNIUM * Blood culture (12/22/2012 12:45 PM EDT) Blood Culture ? Patient Name: ANUM HENRIQUEZ ?Ordered By: ANKIT OHARA ? MR#: [id number] ?LOC: ??1WST ? /Sex: ??1960 (52 years), ? Female ? PROCEDURE: Blood Culture ?SOURCE: Blood ? COLLECTED: 12/22/2012 12:45 ?FREE TEXT SOURCE: First Draw:PHERESIS ? STARTED: 12/22/2012 13:27 ? FINAL REPORT ? Final Report ? Verified:2012 15:10 ? No growth at 5 days. ? PRELIMINARY REPORT ? Preliminary Report ? Verified:2012 15:10 ? No growth at 4 days. ? ELLIOTELIO ARCOSMEKHI Blood specimen (specimen) 12/22/2012 12:45 PM EDT 12/22/2012 1:26 PM EDT Comment:FIRST DRAW: Narrative Resulting Agency Comment Spec In Lab Ankit Ohara MD MICROBIOLOGY - BLOOD ORDERABLES BAR NOE * Vancomycin, trough (12/22/2012 9:30 AM EDT) Vancomycin, Trough 21.4 mg/L Corey NOE Comment: Therapeutic range for [...] Ohara MD CHEMISTRY ORDERABLES CERNER MILLENNIUM * (ABNORMAL) Differential, Automated (12/22/2012 5:00 AM EDT) Neutrophil % 85.5(H) 34.0 - 71.0 % CERNER MILLENNIUM Neutrophil Absolute 10.05(H) 1.50 - 6.30 x10(3)/mc L CERNER MILLENNIUM Lymph % 7.5(L) 19.0 - 53.0 % CERNER MILLENNIUM Lymphocytes Abs 0.9(L) 1.0 - 3.6 x10(3)/mc L CERNER MILLENNIUM Monocyte % 4.9 4.0 - 13.0 % CERNER MILLENNIUM Monocyte Abs 0.6 0.2 - 1.0 x10(3)/mc L CERNER MILLENNIUM Eos % 1.6 0.0 - 7.0 % CERNER MILLENNIUM Eosinophils Abs 0.2 0.0 - 0.5 x10(3)/mc L CERNER MILLENNIUM Basophil % 0.2 0.0 - 2.0 % CERNER MILLENNIUM Baso [...] differential will be performed. Immature Gran Absolute 0.03 0.00 - 0.05 x10(3)/mc L CERNER MILLENNIUM Blood specimen (specimen) 12/22/2012 5:00 AM EDT 12/22/2012 5:08 AM EDT Luis E Trotter MD HEMATOLOGY ORDERABLE S Performing Organization Address [facility]/ZIP Co de Phone Number [facility] * Phosphorus (12/22/2012 5:00 AM EDT) Phosphorus 2.6 2.5 - 4.5 mg/dL [facility] MILLENNIUM Blood specimen (specimen) 12/22/2012 5:00 AM EDT 12/22/2012 5:08 AM EDT Narrative Resulting Agency Comment Spec In Lab Fabi Bliss MD CHEMISTRY ORDERA BLES Performing Organization Address [facility] Co de Phone Number [facility] * Magnesium (12/22/2012 5:00 AM EDT) Magnesium 0.71 0.69 - 1.07 mmol/L [facility] Blood specimen (specimen) 12/22/2012 5:00 AM EDT 12/22/2012 5:08 AM EDT Narrative Resulting Agency Comment Spec In Lab Fabi Bliss MD CHEMISTRY ORDERA BLES Performing Organization Address [facility] de Phone Number [facility] * (ABNORMAL) Lactate Dehydrogenase (12/22/2012 5:00 AM EDT) Lactate Dehydrogenase 232(H) 110 - 220 unit/L [facility] Blood specimen (specimen) 12/22/2012 5:00 AM EDT 12/22/2012 5:08 AM EDT Narrative Resulting Agency Comment Spec In Lab Fabi Bliss MD CHEMISTRY ORDERA BLES Performing Organization Address [facility] Co de Phone Number [facility] * (ABNORMAL) Basic Metabolic Panel (non-fasting) (12/22/2012 5:00 AM EDT) Glucose 96 60 - 199 mg/dL [facility] Comment:Diabetes: >=200 mg/d L plus symptoms Blood Urea Nitrogen 15 8 - 18 mg/dL CERNER MILLENNIUM Creatinine 1.53(H) 0.70 - 1.20 mg/dL CERNER MILLENNIUM Comment: result rechecked-PMH Please note that the pediatric reference intervals supplied above were not validated at [facility]. Results from pediatric patients should be interpreted in conjunction to the patient's age, height and muscle mass. result rechecked- Please note that the pediatric reference intervals supplied above were not validated at [facility]. Results from pediatric patients should be interpreted [...] on 12/22/12 05:50:53 EDT by Griselda Vinson Est Glomerular Filtration Rate 35(L) >=60 CERNER MILLENNIUM Comment: This estimated [...] Trotter MD CHEMISTRY ORDERABLES Performing Organization Address City/State/[facility] Co de Phone Number CERELIO ARCOSENNIUM * (ABNORMAL) CBC (with Diff) (12/22/2012 5:00 AM EDT) White Blood Cell 11.8(H) 4.0 - 10.0 x10(3)/mc L CERNER MILLENNIUM Red Blood Cell 2.45(L) 3.93 - 5.22 x10(6)/mc L CERNER MILLENNIUM Hemoglobin 7.3(L) 11.2 - 15.7 gm/dL CERNER MILLENNIUM Hematocrit 22.0(L) 34.0 - 45.0 % CERNER MILLENNIUM Mean Cell Volume 89.8 79.0 - 94.0 fL CERNER MILLENNIUM Mean Cell Hemoglobin 29.8 26.6 - 32.2 pg CERNER MILLENNIUM Mean Cell Hemoglobin Concentration 33.2 32.0 - 36.5 gm/dL CERNER MILLENNIUM Platelet 165 145 - 370 x10(3)/mc L CERNER MILLENNIUM RDW Standard Deviation 45.8 35.0 - 46.0 fL CERNER MILLENNIUM RDW coefficient of variation 14.7(H) 10.9 - 14.4 % CERNER MILLENNIUM Mean Platelet Volume 10.1 9.0 - 12.0 fL CERNER MILLENNIUM Blood specimen (specimen) 12/22/2012 5:00 AM EDT 12/22/2012 5:08 AM EDT Narrative Resulting Agency Comment Spec In Lab Luis E Trotter MD HEMATOLOGY ORDERABLE S BAR PINEDAIUM * Fibrinogen (12/22/2012 5:00 AM EDT) Fibrinogen 326 175 - 450 mg/dL CERNER MILLENNIUM Blood specimen (specimen) 12/22/2012 5:00 AM EDT 12/22/2012 5:08 AM EDT Narrative Resulting Agency Comment Spec In Lab Ankit Ohara MD HEMATOLOGY ORDERABLE S Performing Organization Address [facility] Co de Phone Number BAR PINEDAIUM * (ABNORMAL) APTT (12/22/2012 5:00 AM EDT) Partial Thromboplastin Time 36(H) 25 - 35 sec CERELIO MILLENNIUM Comment: Recommended therapeutic PTT range for full dose unfractionated heparin is 80-114 seconds. Blood specimen (specimen) 12/22/2012 5:00 AM EDT 12/22/2012 5:08 AM EDT Narrative Resulting Agency Comment Spec In Lab Ankit Ohara MD HEMATOLOGY ORDERABLE S Performing Organization Address [facility] de Phone Number BAR ARCOSENNIUM * (ABNORMAL) Prothrombin Time (12/22/2012 5:00 AM EDT) Prothrombin Time 17.1(H) 12.0 - 15.0 sec CERELIO MILLENNIUM Comment: [facility] Transfusion Committee Guidelines: INR less than 2.0, PTT less than OR equal to 43.5 seconds, or Fibrinogen greater than or equal to 100 mg/dl indicate adequate procoagulant activity for hemostasis in patients without underlying bleeding disorders. International Normalization Ratio 1.4(H) 0.9 - 1.1 CERELIO MILLENNIUM Blood specimen (specimen) 12/22/2012 5:00 AM EDT 12/22/2012 5:08 AM EDT Narrative Resulting Agency Comment Spec In Lab Ankit Ohara MD HEMATOLOGY ORDERABLE S Performing Organization Address [facility] Co de Phone Number BAR PINEDAIUM * Hepatitis B Surface Antigen (12/21/2012 7:35 PM EDT) Hepatitis B Surface Antigen Negative Negative CERELIO ARCOSENNIUM Blood specimen (specimen) 12/21/2012 7:35 PM EDT 12/22/2012 8:11 AM EDT Narrative Resulting Agency Comment Spec In Lab Ankit Ohara MD CHEMISTRY ORDERABLES Performing Organization Address [facility] Co de Phone Number ABR NOE * Vancomycin, trough (12/21/2012 7:35 PM EDT) Vancomycin, Trough 7.0 mg/L Corey [facility] Comment: Therapeutic range for complicated infections such [...] Ohara MD CHEMISTRY ORDERABLES Performing Organization Address [facility] Co de Phone Number BAR NOE * MRI brain with/WO contrast [...] how these changes evolve. Ankit Ohara MD IMG MRI ORDERABLES * Blood culture (12/21/2012 3:40 PM EDT) Blood Culture ? Patient Name: ANUM HENRIQUEZ ?Ordered By: ANKIT OHARA ? MR#: [id number] ?LOC: ??1WST ? /Sex: ??1960 (52 years), ? Female ? PROCEDURE: Blood Culture ?SOURCE: Blood ? COLLECTED: 12/21/2012 15:40 ? BODY SITE: Internal Jugular ? STARTED: 12/21/2012 15:52 ?FREE TEXT SOURCE: Please draw one culture from [facility] and ? one from [facility] plasmaphoresis line today. Thank ? you. ? FINAL REPORT ? Final Report ? Verified:12/28/19 13 15:11 ? No growth at 5 days. ? PRELIMINARY REPORT ? Preliminary Report ? Verified:12/26/19 13 23:11 ? No growth at 4 days. ? ELLIOTNER MILLENNIUM Blood specimen (specimen) INTERNAL JUGULAR VEIN STRUCTURE / Unknown 12/21/2012 3:40 PM EDT 12/21/2012 3:52 PM EDT Comment:PLEASE DRAW ONE CULT URE FROM PICC LINE AND ONE FROM [facility] PLASMAPHORESIS LINE TODAY. THANK YOU. Narrative Resulting Agency Comment Spec In Lab Ankit Ohara MD MICROBIOLOGY - BLOOD ORDERABLES CERNER MILLENNIUM * (ABNORMAL) Basic Metabolic Panel (non-fasting) (12/21/2012 3:40 PM EDT) [facility] Glucose 110 60 - 199 mg/dL CERNER MILLENNIUM Comment:Diabetes: >=200 mg/d L plus symptoms Blood Urea Nitrogen 33(H) 8 - 18 mg/dL CERNER MILLENNIUM Creatinine 2.34(H) 0.70 - 1.20 mg/dL CERNER MILLENNIUM Comment: Please note that the pediatric reference intervals supplied above were not validated at [facility]. Results from pediatric patients should be interpreted [...] 99 98 - 107 mmol/L CERNER MILLENNIUM Carbon Dioxide 28 22 - 31 mmol/L CERNER MILLENNIUM Anion Gap 10 5 - 15 mmol/L CERNER MILLENNIUM Anion Gap 10 5 - 15 mmol/L CERNER MILLENNIUM Calcium 7.9(L) 8.5 - 10.5 mg/dL CERNER MILLENNIUM Est [...] Ohara MD CHEMISTRY ORDERABLES Performing Organization Address [facility]/ZIP Co de Phone Number BAR PINEDAIUM * Vitamin B6 (12/21/2012 2:30 PM EDT) Vitamin B6 (OCTOBER) 6 5 - 50 mcg/L CERNER MILLENNIUM Comment: Test Performed by: [place] [address] Drying Tumbler Operator: Jennifer Ramirez, Ph.D. Blood specimen (specimen) 12/21/2012 2:30 PM EDT 12/23/2012 8:37 AM EDT Narrative Resulting Agency Comment Spec In Lab Ankit Ohara MD LAB SEND OUT ORDERAB LES Performing Organization Address [facility]/ZIP Co de Phone Number BAR NOE * SCAN DOC: LAB (12/21/2012 1:54 PM EDT) Narrative 12/21/2012 1:54 PM EDT Procedure Note Provider, Scanning - 12/21/2012 1:54 PM EDT Scanning Provider MEDIA MGR SCAN EXT O RDR/RSLT * (ABNORMAL) Blood Gas Arterial (12/21/2012 1:40 PM EDT) pH, Arterial 7.52(H) 7.35 - 7.45 CERNER MILLENNIUM PCO2, Arterial 36 35 - 45 mmHg CERNER MILLENNIUM PO2, Arterial 94 85 - 104 mmHg CERNER MILLENNIUM Bicarbonate, Arterial 29.0(H) 20.0 - 26.0 mmol/L CERNER MILLENNIUM Base Excess, Arterial 6.2(H) -3.0 - 3.0 mmol/L CERNER MILLENNIUM Hgb Blood Gas 8.5(L) 11.2 - 15.7 gm/dL CERNER MILLENNIUM Comment: Total Hemoglobin (in gm/dL) ?Based on [facility] Hematology ranges: ?Age ?Reference Range Less than [...] 15.7 ? (male) ?? 13.7 to 17.5 Oxyhemoglobin, Arterial 96.4 94.0 - 97.0 % CERNER MILLENNIUM Carboxyhemoglob in, Arterial 1.3 % CERNER MILLENNIUM Comment: Nonsmokers: ??0.5-1.5% COHB Smokers: ??Variable, but usually less than 10% Toxic: 20 - 30% COHB Lethal: ??Greater than 60% COHB Methemoglobin, Arterial 0.2 <=1.5 % CERNER MILLENNIUM Na Whole [...] Whole Blood 98 98 - 107 mmol/L BAR PINEDAIUM Gluc Whole Bld 113 60 - 199 mg/dL [facility] Comment:Diabetes: >=200 mg/d L plus symptoms. Lactate WB 0.8 0.5 - 2.2 mmol/L BAR NOE Blood specimen (specimen) 12/21/2012 1:40 PM EDT 12/21/2012 1:56 PM EDT Narrative Resulting Agency Comment Spec In Lab Ankit Ohara MD CHEMISTRY ORDERABLES Performing Organization Address [facility] de Phone Number BAR NOE * Green Tube HOLD (12/21/2012 1:40 PM EDT) Green Hold Sample in lab. BAR NOE Blood specimen (specimen) 12/21/2012 1:40 PM EDT 12/21/2012 1:48 PM EDT Ankit Ohara MD CHEMISTRY ORDERABLES Performing Organization Address [facility] de Phone Number BAR NOE * Vitamin B12 (12/21/2012 1:40 PM EDT) Vitamin B12 [phone] 974 pg/mL [facility] Blood specimen (specimen) 12/21/2012 1:40 PM EDT 12/21/2012 1:44 PM EDT Narrative Resulting Agency Comment Spec In Lab Ankit Ohara MD CHEMISTRY ORDERABLES Performing Organization Address [facility] de Phone Number BAR NOE * [...] ?U -- REFERENCE VALUE -- <1.0 (Negative) ??RESEARCH CHEF Ab, IgG, S ?<0.2 ?U -- REFERENCE VALUE -- <1.0 (Negative) ??Scl 70 Ab, IgG, S ? <0.2 ?U -- REFERENCE VALUE -- <1.0 (Negative) ??Fozia 1 Ab, IgG, S ? <0.2 ?U -- REFERENCE VALUE -- <1.0 (Negative) Test Performed by: [facility] [place] [address] Drying Tumbler Operator: Jennifer Ramirez, Ph.D.(A) [facility] Blood specimen (specimen) 12/21/2012 1:40 PM EDT 12/23/2012 8:37 AM EDT Narrative Resulting Agency Comment Spec In Lab Ankit Ohara MD LAB SEND OUT ORDERAB LES Performing Organization Address [facility] de Phone Number [facility] * (ABNORMAL) Ammonia (12/21/2012 1:40 PM EDT) Ammonia <10(L) 11 - 51 mcmol/L [facility] Blood specimen (specimen) 12/21/2012 1:40 PM EDT 12/21/2012 1:44 PM EDT Narrative Resulting Agency Comment Spec In Lab Ankit Ohara MD CHEMISTRY ORDERABLES Performing Organization Address [facility] Phone Number [facility] * Blood culture (12/21/2012 9:21 AM EDT) Blood Culture ? Patient Name: ANUM HENRIQUEZ ?Ordered By: ANKIT OHARA ? MR#: [id number] ?LOC: ??1WST ? /Sex: ??1960 (52 years), [...] MICROBIOLOGY - BLOOD ORDERABLES Performing Organization Address City/[facility] Co de Phone Number CERNER MILLENNIUM * (ABNORMAL) Differential, Manual (12/21/2012 6:50 AM EDT) Segmented Neutrophils Manual 91(H) 34 - 71 % CERNER MILLENNIUM Band % 5 0 - 12 % CERNER MILLENNIUM Lymphocyte Manual 4(L) 19 - 53 % CERNER MILLENNIUM Segs Absolute Manual 16.2(H) 1.5 - 6.3 x10(3)/mc L CERNER MILLENNIUM Band Abs 0.9(H) 0.2 - 0.6 x10(3)/mc L CERNER MILLENNIUM ANC 17.07(H) 1.50 - 6.30 x10(3)/mc L CERNER MILLENNIUM Lymph Absolute Manual 0.7(L) 1.0 - 3.6 x10(3)/mc L CERNER MILLENNIUM Total Cells Ct 100 CERNE R MILLENNIUM Plat estimate Normal CERNER MILLENNIUM RBC Morphology Abnormal CERNE R MILLENNIUM Schistocyte 1-5 /HPF CERNER MILLENNIUM Blood specimen (specimen) 12/21/2012 6:50 AM EDT 12/21/2012 7:14 AM EDT Narrative Resulting Agency Comment Spec In Lab Luis E Trotter MD HEMATOLOGY ORDERABLE S Performing Organization Address City/State/[facility] Co de Phone Number CERNER MILLENNIUM * Phosphorus (12/21/2012 6:50 AM EDT) Phosphorus 4.1 2.5 - 4.5 mg/dL [facility] MIRIAMIUM Blood specimen (specimen) 12/21/2012 6:50 AM EDT 12/21/2012 7:14 AM EDT Narrative Resulting Agency Comment Spec In Lab Fabi Bliss MD CHEMISTRY ORDERA BLES Performing Organization Address [facility] Co de Phone Number [facility] MIRIAM[facility] * (ABNORMAL) Magnesium (12/21/2012 6:50 AM EDT) Magnesium 0.66(L) 0.69 - 1.07 mmol/L [facility] Blood specimen (specimen) 12/21/2012 6:50 AM EDT 12/21/2012 7:14 AM EDT Narrative Resulting Agency Comment Spec In Lab Fabi Bliss MD CHEMISTRY ORDERA BLES Performing Organization Address [facility] de Phone Number [facility] MIRIAMIUM * (ABNORMAL) Lactate Dehydrogenase (12/21/2012 6:50 AM EDT) Lactate Dehydrogenase 237(H) 110 - 220 unit/L [facility] M[facility] Blood specimen (specimen) 12/21/2012 6:50 AM EDT 12/21/2012 7:14 AM EDT Narrative Resulting Agency Comment Spec In Lab Fabi Bliss MD CHEMISTRY ORDERA BLES Performing Organization Address [facility] Co de Phone Number [facility] MIRIAMIUM * (ABNORMAL) Basic Metabolic Panel (non-fasting) (12/21/2012 6:50 AM EDT) Glucose 102 60 - 199 mg/dL [facility] Comment:Diabetes: >=200 mg/d L plus symptoms Blood Urea Nitrogen 33(H) 8 - 18 mg/dL [facility] Creatinine 2.29(H) 0.70 - 1.20 mg/dL CERNER MILLENNIUM Comment: Please note that the pediatric reference intervals supplied above were not validated at [facility]. Results from pediatric patients should be interpreted [...] 97(L) 98 - 107 mmol/L CERNER MILLENNIUM Carbon Dioxide 27 22 - 31 mmol/L CERNER MILLENNIUM Anion Gap 13 5 - 15 mmol/L CERNER MILLENNIUM Calcium 7.9(L) 8.5 - 10.5 mg/dL CERNER MILLENNIUM Est [...] BAR NOE * (ABNORMAL) CBC (with Diff) (12/21/2012 6:50 AM EDT) White Blood Cell 17.8(H) 4.0 - 10.0 x10(3)/mc L CERNER MILLENNIUM Red Blood Cell 2.49(L) 3.93 - 5.22 x10(6)/mc L [facility] M[facility] Hemoglobin 7.7(L) 11.2 - 15.7 gm/dL [facility] MILLENNIUM Hematocrit 22.4(L) 34.0 - 45.0 % [facility] MILL[facility]NIUM Mean Cell Volume 90.0 79.0 - 94.0 fL [facility] MILL[facility]NIUM Mean Cell Hemoglobin 30.9 26.6 - 32.2 pg [facility] ISRRAEL[facility] Mean Cell Hemoglobin Concentration 34.4 32.0 - 36.5 gm/dL [facility] MILLENNIUM Platelet 158 145 - 370 x10(3)/mc L [facility] MILLENNIUM RDW Standard Deviation 46.5(H) 35.0 - 46.0 fL [facility] MILLENNIUM RDW coefficient of variation 14.7(H) 10.9 - 14.4 % [facility] ISRRAEL[facility] Mean Platelet Volume 10.8 9.0 - 12.0 fL [facility] ISRRAEL[facility] Blood specimen (specimen) 12/21/2012 6:50 AM EDT [...] BANK PRODUCT O RDERABLES BAR NOE * Transfusion Reaction Interp (12/20/2012 6:28 PM EDT) Trans RXN Interp INTERPRETATION: Transfusion associated circulatory overload. The patient is approved to receive future transfusions. Please refer to the clinical note for a complete summary of this transfusion reaction. Jaleel Reynoso MD Transfusion Medicine Service 02/19/13 11:29 [facility] Comment: Jaleel Reynoso, Pathologist Verified:02/19/13 Blood specimen (specimen) 12/20/2012 6:28 PM EDT 12/20/2012 6:28 PM EDT Narrative Resulting Agency Comment Spec In Lab Ankit Ohara MD BLOOD BANK LAB ORDER VIKAS [facility] * Blood culture (12/20/2012 5:00 PM EDT) Blood Culture ? Patient Name: ANUM HENRIQUEZ ?Ordered By: ANKIT OHARA ? MR#: [id number] ?LOC: ??1WST ? /Sex: ??1960 (52 years), [...] Ohara MD MICROBIOLOGY - BLOOD ORDERABLES [facility] * Urine culture Clean Catch Urine (12/20/2012 4:49 PM EDT) Urine Culture ? Patient Name: ANUM HENRIQUEZ ?Ordered By: ANKIT OHARA ? MR#: [id number] ?LOC: ??1WST ? /Sex: ??1960 (52 years), ? Female ? PROCEDURE: Urine Culture ?SOURCE: [facility] ? COLLECTED: 12/20/2012 16:49 ? STARTED: 12/20/2012 17:07 ? FINAL REPORT ? Final Report ? Verified:12/23/19 13 08:10 ? Greater than 100,000 cfu/ml Staphylococcus aureus, MRSA ? PRELIMINARY REPORT ? Preliminary Report ? Verified:12/22/19 12:39 ? Greater than 100,000 cfu/ml Staphylococcus [...] ?S ? Patient: ANUM HENRIQUEZ ? MR#: [id number] ? FOOTNOTES ? (1) ? Gentamicin is not appropriate for [place]-therapy. ? (2) ? MRSA, Note Nafcillin Resistance ? CERNER MILLENNIUM Urine specimen obtained via indwelling urinary catheter (specimen) 12/20/2012 4:49 PM EDT 12/20/2012 5:07 PM EDT Narrative Resulting Agency Comment Spec In Lab Ankit Ohara MD MICROBIOLOGY - GENER AL ORDERABLES Performing Organization Address [facility] Co de Phone Number [facility] MILLENNIUM * (ABNORMAL) pro-Brain Natriuretic Peptide (12/20/2012 4:10 PM EDT) NT-proBNP 2411(H) <=125 pg/mL CERNER MILLENNIUM Blood specimen (specimen) 12/20/2012 4:10 PM EDT 12/20/2012 4:16 PM EDT Narrative Resulting Agency Comment Spec In Lab Ankit Ohara MD CHEMISTRY ORDERABLES Performing Organization Address [facility] Co de Phone Number CERELIO MILLENNIUM * (ABNORMAL) Urinalysis with microscopic (12/20/2012 3:55 PM EDT) Glucose, Urine Dipstick Negative Negative mg/dL CERNER MILLENNIUM Protein, Urine Dipstick 100(A) Neg mg/dL CERNER MILLENNIUM Bilirubin, Urine Dipstick Negative Negative mg/dL CERNER MILLENNIUM Urobilinogen, Urine Dipstick Normal CERNER MILLENNIUM pH, Urn (dipstick) 6.0 5.0 - 8.0 CERNER MILLENNIUM Blood, Urine Dipstick Moderate CERNER MILLENNIUM Ketone, Urine Dipstick Trace(A) Neg mg/dL CERNER MILLENNIUM Nitrite, Urine Dipstick Negative CERNER MILLENNIUM Leukocytes, Urine Dipstick Negative CERNER MILLENNIUM Appearance, Urine Dipstick Clear Clear CERNER MILLENNIUM Specific [place] Urine Automated 1.007 1.002 - 1.030 CERNER MILLENNIUM Color, Urine Dipstick Light Yellow Yellow CERNER MILLENNIUM RBC, Urine 8(H) 0 - 4 /HPF CERNER MILLENNIUM WBC, Urine 6(H) 0 - 5 /HPF CERNER MILLENNIUM Granular Casts, Urine 2(H) <=0 /LPF CERNER MILLENNIUM Urine specimen (specimen) 12/20/2012 3:55 PM EDT 12/20/2012 4:55 PM EDT Narrative Resulting Agency Comment Spec In Lab Ankit Ohara MD URINE ORDERABLES CERNER MILLENNIUM * Blood culture (12/20/2012 3:40 PM EDT) Blood Culture ? Patient Name: ANUM HENRIQUEZ ?Ordered By: ANKIT OHARA ? MR#: [id number] ?LOC: ??1WST ? /Sex: ??1960 (52 years), [...] testing is required, contact the Microbiology ? Extract Puller. ? PRELIMINARY REPORT ? Preliminary Report ? Verified:12/23/19 13 08:30 ? Staphylococcus aureus, MRSA isolated ? Patient: ANUM HENRIQUEZ ? MR#: [id number] ? SUSCEPTIBILITY RESULTS ? Staphylococcus aureus, MRSA [...] (1) ? Gentamicin is not appropriate for [place]-therapy. ? (2) ? MRSA, Note Nafcillin Resistance [...] (Bezet) 406 ms MUSE SYSTEM Calculated P [place] 58 degrees MUSE SYSTEM Calculated R [place] 32 degrees MUSE SYSTEM Calculated T [place] 24 degrees MUSE SYSTEM INTERPRETATION Normal sinus rhythm Nonspecific T wave abnormality Abnormal ECG No previous ECGs available Confirmed by MD CEASAR, JAY ([id number]) on 12/21/2012 7:30:22 AM MUSE SYSTEM 12/20/2012 2:21 PM EDT 12/21/2012 7:30 AM EDT Ankit Ohara MD ECG ORDERABLES Performing Organization Address [facility] Co de Phone Number MUSE SYSTEM * (ABNORMAL) Magnesium (12/20/2012 1:55 PM EDT) Magnesium 0.66(L) 0.69 - 1.07 mmol/L CERNER MILLENNIUM Blood specimen (specimen) 12/20/2012 1:55 PM EDT 12/20/2012 2:11 PM EDT Narrative Resulting Agency Comment Spec In Lab Ankit Ohara MD CHEMISTRY ORDERABLES Performing Organization Address [facility] de Phone Number CERNER MILLENNIUM * Scan, Peripheral Blood (12/20/2012 1:55 PM EDT) Pathologist [facility] Plat estimate Normal CERNER MILLENNIUM RBC Morphology Abnormal CERNE R MILLENNIUM Microcyte 1-5 /HPF CERNER MILLENNIUM Schistocyte 1-5 /HPF CERNER MILLENNIUM Blood specimen (specimen) 12/20/2012 1:55 PM EDT 12/20/2012 2:03 PM EDT Narrative Resulting Agency Comment Spec In Lab Ankit Ohara MD HEMATOLOGY ORDERABLE S Performing Organization Address [facility] Co de Phone Number CERNER MILLENNIUM * (ABNORMAL) Differential, Automated (12/20/2012 1:55 PM EDT) Neutrophil % 88.7(H) 34.0 - 71.0 % CERNER MILLENNIUM Neutrophil Absolute 10.97(H) 1.50 - 6.30 x10(3)/mc L CERNER MILLENNIUM Lymph % 3.2(L) 19.0 - 53.0 % CERNER MILLENNIUM Lymphocytes Abs 0.4(L) 1.0 - 3.6 x10(3)/mc L CERNER MILLENNIUM Monocyte % 6.9 4.0 - 13.0 % CERNER MILLENNIUM Monocyte Abs 0.9 0.2 - 1.0 x10(3)/mc L CERNER MILLENNIUM Eos % 1.0 0.0 - 7.0 % CERNER MILLENNIUM Eosinophils Abs 0.1 0.0 - 0.5 x10(3)/mc L CERNER MILLENNIUM Basophil % 0.0 0.0 - 2.0 % CERNER MILLENNIUM Baso [...] differential will be performed. Immature Gran Absolute 0.03 0.00 - 0.05 x10(3)/mc L CERNER MILLENNIUM Blood specimen (specimen) 12/20/2012 1:55 PM EDT 12/20/2012 2:03 PM EDT Ankit Ohara MD HEMATOLOGY ORDERABLE S Performing Organization Address City/[facility] Co de Phone Number BAR ARCOSENNIUM * (ABNORMAL) APTT (12/20/2012 1:55 PM EDT) Partial Thromboplastin Time 41(H) 25 - 35 sec CERNER MILLENNIUM Comment: Recommended therapeutic PTT range for full dose unfractionated heparin is 80-114 seconds. Blood specimen (specimen) 12/20/2012 1:55 PM EDT 12/20/2012 2:03 PM EDT Narrative Resulting Agency Comment Spec In Lab Ankit Ohara MD HEMATOLOGY ORDERABLE S Performing Organization Address City/State/[facility] Co de Phone Number BAR PINEDAIUM * (ABNORMAL) Prothrombin Time (12/20/2012 1:55 PM EDT) Prothrombin Time 17.1(H) 12.0 - 15.0 sec CERNER MILLENNIUM Comment: [facility] Transfusion Committee Guidelines: INR less than 2.0, PTT less than OR equal to 43.5 seconds, or Fibrinogen greater than or equal to 100 mg/dl indicate adequate procoagulant activity for hemostasis in patients without underlying bleeding disorders. International Normalization Ratio 1.4(H) 0.9 - 1.1 CERNER MILLENNIUM Blood specimen (specimen) 12/20/2012 1:55 PM EDT 12/20/2012 2:03 PM EDT Narrative Resulting Agency Comment Spec In Lab Ankit Ohara MD HEMATOLOGY ORDERABLE S Performing Organization Address City/[facility] Co de Phone Number CERELIO PINEDAIUM * (ABNORMAL) CBC (with Diff) (12/20/2012 1:55 PM EDT) White Blood Cell 12.4(H) 4.0 - 10.0 x10(3)/mc L CERNER MILLENNIUM Red Blood Cell 2.43(L) 3.93 - 5.22 x10(6)/mc L CERNER MILLENNIUM Hemoglobin 7.1(L) 11.2 - 15.7 gm/dL CERNER MILLENNIUM Hematocrit 21.4(L) 34.0 - 45.0 % CERNER MILLENNIUM Mean Cell Volume 88.1 79.0 - 94.0 fL CERNER MILLENNIUM Mean Cell Hemoglobin 29.2 26.6 - 32.2 pg CERNER MILLENNIUM Mean Cell Hemoglobin Concentration 33.2 32.0 - 36.5 gm/dL CERNER MILLENNIUM Platelet 138(L) 145 - 370 x10(3)/mc L CERNER MILLENNIUM RDW Standard Deviation 43.9 35.0 - 46.0 fL CERNER MILLENNIUM RDW coefficient of variation 14.5(H) 10.9 - 14.4 % CERNER MILLENNIUM Mean Platelet Volume 10.2 9.0 - 12.0 fL CERNER MILLENNIUM Blood specimen (specimen) 12/20/2012 1:55 PM EDT 12/20/2012 2:03 PM EDT Narrative Resulting Agency Comment Spec In Lab Ankit Ohara MD HEMATOLOGY ORDERABLE S CERNER MILLENNIUM * (ABNORMAL) Basic Metabolic Panel (non-fasting) (12/20/2012 1:55 PM EDT) Glucose 103 60 - 199 mg/dL CERNER MILLENNIUM Comment:Diabetes: >=200 mg/d L plus symptoms Blood Urea Nitrogen 34(H) 8 - 18 mg/dL CERNER MILLENNIUM Creatinine 1.86(H) 0.70 - 1.20 mg/dL CERNER MILLENNIUM Comment: Please note that the pediatric reference intervals supplied above were not validated at [facility]. Results from pediatric patients should be interpreted [...] 8.2(L) 8.5 - 10.5 mg/dL CERNER MILLENNIUM Est [...] Ohara MD CHEMISTRY ORDERABLES BAR PINEDAIUM * Antibody screen (12/20/2012 12:20 PM EDT) Ab Screen Interp Negative CERELIO PINEDAIUM Expires at [id number] on: [id number] CERELIO PINEDAIUM Blood specimen (specimen) 12/20/2012 12:20 PM EDT 12/20/2012 12:33 PM EDT Narrative Resulting Agency Comment Spec In Lab Ankit Ohara MD BLOOD BANK LAB ORDER VIKAS Performing Organization Address City/[facility]/ZIP Co de Phone Number CERELIO PINEDAIUM * ABO/Rh Typing (12/20/2012 12:20 PM EDT) ABORH Type AB Pos CERNER ISRRAELENNIUM Blood specimen (specimen) 12/20/2012 12:20 PM EDT 12/20/2012 12:33 PM EDT Narrative Resulting Agency Comment Spec In Lab Ankit Ohara MD BLOOD BANK LAB ORDER VIKAS Performing Organization Address City/[facility]/ZIP Co de Phone Number CERELIO PINEDAIUM * (ABNORMAL) H. pylori Antibody, IgG (12/20/2012 12:20 PM EDT) H pylori Ab Pos(A) Neg CERELIO PINEDAIUM Blood specimen (specimen) 12/20/2012 12:20 PM EDT 12/21/2012 2:03 PM EDT Narrative Resulting Agency Comment Spec In Lab Ankit Ohara MD IMMUNOLOGY ORDERABLE S CERELIO PINEDAIUM * Prepare RBC (12/20/2012 9:45 AM EDT) [...] (ABNORMAL) Differential, Automated (12/20/2012 4:50 AM EDT) Neutrophil % 82.9(H) 34.0 - 71.0 % CERNER MILLENNIUM Neutrophil Absolute 8.24(H) 1.50 - 6.30 x10(3)/mc L CERNER MILLENNIUM Lymph % 7.7(L) 19.0 - 53.0 % CERNER MILLENNIUM Lymphocytes Abs 0.8(L) 1.0 - 3.6 x10(3)/mc L CERNER MILLENNIUM Monocyte % 6.1 4.0 - 13.0 % CERNER MILLENNIUM Monocyte Abs 0.6 0.2 - 1.0 x10(3)/mc L CERNER MILLENNIUM Eos % 2.7 0.0 - 7.0 % CERNER MILLENNIUM Eosinophils Abs 0.3 0.0 - 0.5 x10(3)/mc L CERNER MILLENNIUM Basophil % 0.1 0.0 - 2.0 % CERNER MILLENNIUM Baso [...] differential will be performed. Immature Gran Absolute 0.05 0.00 - 0.05 x10(3)/mc L CERELIO PINEDAIUM Blood specimen (specimen) 12/20/2012 4:50 AM EDT 12/20/2012 5:08 AM EDT Luis E Trotter MD HEMATOLOGY ORDERABLE S Performing Organization Address City/[facility] Co de Phone Number BAR NOE * (ABNORMAL) Phosphorus (12/20/2012 4:50 AM EDT) Phosphorus 4.9(H) 2.5 - 4.5 mg/dL BAR PINEDAIUM Blood specimen (specimen) 12/20/2012 4:50 AM EDT 12/20/2012 5:08 AM EDT Narrative Resulting Agency Comment Spec In Lab Fabi Bliss MD CHEMISTRY ORDERA BLES Performing Organization Address [facility] de Phone Number BAR PINEDAIUM * Magnesium (12/20/2012 4:50 AM EDT) Magnesium 0.71 0.69 - 1.07 mmol/L BAR PINEDAIUM Blood specimen (specimen) 12/20/2012 4:50 AM EDT 12/20/2012 5:08 AM EDT Narrative Resulting Agency Comment Spec In Lab Fabi Bliss MD CHEMISTRY ORDERA BLES Performing Organization Address [facility] Co de Phone Number BAR NOE * Lactate Dehydrogenase (12/20/2012 4:50 AM EDT) Lactate Dehydrogenase 220 110 - 220 unit/L BAR PINEDAIUM Blood specimen (specimen) 12/20/2012 4:50 AM EDT 12/20/2012 5:08 AM EDT Narrative Resulting Agency Comment Spec In Lab Fabi Bliss MD CHEMISTRY ORDERA ZOEYS CERNER MILLENNIUM * (ABNORMAL) Basic Metabolic Panel (non-fasting) (12/20/2012 4:50 AM EDT) Glucose 104 60 - 199 mg/dL CERNER MILLENNIUM Comment:Diabetes: >=200 mg/d L plus symptoms Blood Urea Nitrogen 38(H) 8 - 18 mg/dL CERNER MILLENNIUM Creatinine 2.11(H) 0.70 - 1.20 mg/dL CERNER MILLENNIUM Comment: Please note that the pediatric reference intervals supplied above were not validated at [facility]. Results from pediatric patients should be interpreted [...] - 107 mmol/L CERNER MILLENNIUM Carbon Dioxide 32(H) 22 - 31 mmol/L CERNER MILLENNIUM Anion Gap 8 5 - 15 mmol/L CERNER MILLENNIUM Calcium 7.8(L) 8.5 - 10.5 mg/dL CERNER MILLENNIUM Est [...] MILLENNIUM * (ABNORMAL) CBC (with Diff) (12/20/2012 4:50 AM EDT) White Blood Cell 10.0 4.0 - 10.0 x10(3)/mc L CERNER MILLENNIUM Red Blood Cell 2.40(L) 3.93 - 5.22 x10(6)/mc L CERNER MILLENNIUM Hemoglobin 7.1(L) 11.2 - 15.7 gm/dL CERNER MILLENNIUM Hematocrit 21.4(L) 34.0 - 45.0 % CERNER MILLENNIUM Mean Cell Volume 89.2 79.0 - 94.0 fL CERNER MILLENNIUM Mean Cell Hemoglobin 29.6 26.6 - 32.2 pg CERNER MILLENNIUM Mean Cell Hemoglobin Concentration 33.2 32.0 - 36.5 gm/dL CERNER MILLENNIUM Platelet 139(L) 145 - 370 x10(3)/mc L CERNER MILLENNIUM RDW Standard Deviation 44.3 35.0 - 46.0 fL CERNER MILLENNIUM RDW coefficient of variation 14.6(H) 10.9 - 14.4 % CERNER MILLENNIUM Mean Platelet Volume 10.7 9.0 - 12.0 fL CERNER MILLENNIUM Blood specimen (specimen) 12/20/2012 4:50 AM EDT 12/20/2012 5:08 AM EDT Narrative Resulting Agency Comment Spec In Lab Luis E Trotter MD HEMATOLOGY ORDERABLE S BAR ARCOSENNIUM * (ABNORMAL) Fibrinogen (12/20/2012 4:50 AM EDT) Fibrinogen 170(L) 175 - 450 mg/dL CERNER MILLENNIUM Blood specimen (specimen) 12/20/2012 4:50 AM EDT 12/20/2012 5:08 AM EDT Narrative Resulting Agency Comment Spec In Lab Jaleel Reynoso MD HEMATOLOGY ORDERABLE S BAR NOE * Duplex Study for DVT, Bilat legs (12/19/2012 10:03 AM EDT) VB Text Report Department: Vascular Surgery Lab Patient: [id number] (ANUM HENRIQUEZ) CPT Code: 96917 ICD-9: 451.19 Referring Physician: ANKIT OHARA Indication: [...] AM EDT Ankit Ohara MD VASCULAR ORDERABLES VASCUBASE * Fibrinogen (12/19/2012 7:40 AM EDT) Fibrinogen 214 175 - 450 mg/dL [facility] Blood specimen (specimen) 12/19/2012 7:40 AM EDT 12/19/2012 7:51 AM EDT Narrative Resulting Agency Comment Spec In Lab Jaleel Reynoso MD HEMATOLOGY ORDERABLE S Performing Organization Address [facility] de Phone Number [facility] * T4 (12/19/2012 3:20 AM EDT) T4 Total 5.7 5.1 - 10.8 mcg/dL [facility] Comment: Reference Range: Cord Blood: ??6.9-14.4 mcg/dL Females: ??7.2-14.2 mcg/dL Pediatric ranges: ??Interpret with caution-ranges have not been verified Blood specimen (specimen) 12/19/2012 3:20 AM EDT 12/19/2012 6:09 AM EDT Narrative Resulting Agency Comment Spec In Lab Luis E Trotter MD CHEMISTRY ORDERABLES Performing Organization Address [facility] Phone Number [facility] * T Uptake (12/19/2012 3:20 AM EDT) [facility] T Uptake 1.03 0.80 - 1.30 ratio [facility] Comment: Tup assay is directly proportional to Thyroid binding protein concentration, thus FT4 Index = TT4/Tup. [place] Cord Blood Reference Range: ??0.74-1.28. Blood specimen (specimen) 12/19/2012 3:20 AM EDT 12/19/2012 3:54 AM EDT Narrative Resulting Agency Comment Spec In Lab Luis E Trotter MD CHEMISTRY ORDERABLES Performing Organization Address [facility] de Phone Number [facility] * T4, free (12/19/2012 3:20 AM EDT) Free T4 1.05 0.90 - 1.60 ng/dL CERNER MILLENNIUM Blood specimen (specimen) 12/19/2012 3:20 AM EDT 12/19/2012 3:54 AM EDT Narrative Resulting Agency Comment Spec In Lab Luis E Trotter MD CHEMISTRY ORDERABLES Performing Organization Address City/[facility] Co de Phone Number CERNER MILLENNIUM * (ABNORMAL) T3 (12/19/2012 3:20 AM EDT) T3 Total 58(L) 75 - 170 ng/dL CERNER MILLENNIUM Blood specimen (specimen) 12/19/2012 3:20 AM EDT 12/19/2012 3:54 AM EDT Narrative Resulting Agency Comment Spec In Lab Luis E Trotter MD CHEMISTRY ORDERABLES Performing Organization Address [facility] Co de Phone Number CERNER MILLENNIUM * (ABNORMAL) Differential, Automated (12/19/2012 3:20 AM EDT) Pathologist [facility] Neutrophil % 81.2(H) 34.0 - 71.0 % CERNER MILLENNIUM Neutrophil Absolute 7.21(H) 1.50 - 6.30 x10(3)/mc L CERNER MILLENNIUM Lymph % 9.9(L) 19.0 - 53.0 % CERNER MILLENNIUM Lymphocytes Abs 0.9(L) 1.0 - 3.6 x10(3)/mc L CERNER MILLENNIUM Monocyte % 4.7 4.0 - 13.0 % CERNER MILLENNIUM Monocyte Abs 0.4 0.2 - 1.0 x10(3)/mc L CERNER MILLENNIUM Eos % 3.3 0.0 - 7.0 % CERNER MILLENNIUM Eosinophils Abs 0.3 0.0 - 0.5 x10(3)/mc L CERNER MILLENNIUM Basophil % 0.1 0.0 - 2.0 % CERNER MILLENNIUM Baso [...] differential will be performed. Immature Gran Absolute 0.07(H) 0.00 - 0.05 x10(3)/mc L CERNER ISRRAELENNIUM Blood specimen (specimen) 12/19/2012 3:20 AM EDT 12/19/2012 3:40 AM EDT Luis E Trotter MD HEMATOLOGY ORDERABLE S Performing Organization Address [facility] Co de Phone Number [facility] MIRIAMIUM * (ABNORMAL) Phosphorus (12/19/2012 3:20 AM EDT) Phosphorus 4.8(H) 2.5 - 4.5 mg/dL CERNER ISRRAELENNIUM Blood specimen (specimen) 12/19/2012 3:20 AM EDT 12/19/2012 3:40 AM EDT Narrative Resulting Agency Comment Spec In Lab Fabi Bliss MD CHEMISTRY ORDERA BLES Performing Organization Address [facility] de Phone Number BAR PINEDAIUM * Magnesium (12/19/2012 3:20 AM EDT) Magnesium 0.80 0.69 - 1.07 mmol/L CERELIO PINEDAIUM Blood specimen (specimen) 12/19/2012 3:20 AM EDT 12/19/2012 3:40 AM EDT Narrative Resulting Agency Comment Spec In Lab Fabi Bliss MD CHEMISTRY ORDERA BLECornelius Performing Organization Address [facility] Co de Phone Number [facility] ISRREALFLORENCE COMMUNITY HEALTHCAREIUM * (ABNORMAL) Lactate Dehydrogenase (12/19/2012 3:20 AM EDT) Lactate Dehydrogenase 270(H) 110 - 220 unit/L CERNER MILLENNIUM Blood specimen (specimen) 12/19/2012 3:20 AM EDT 12/19/2012 3:40 AM EDT Narrative Resulting Agency Comment Spec In Lab Fabi Bliss MD CHEMISTRY ORDERA ERICK CERNER MILLENNIUM * (ABNORMAL) Basic Metabolic Panel (non-fasting) (12/19/2012 3:20 AM EDT) Glucose 98 60 - 199 mg/dL CERNER MILLENNIUM Comment:Diabetes: >=200 mg/d L plus symptoms Blood Urea Nitrogen 41(H) 8 - 18 mg/dL CERNER MILLENNIUM Creatinine 2.19(H) 0.70 - 1.20 mg/dL CERNER MILLENNIUM Comment: Please note that the pediatric reference intervals supplied above were not validated at [facility]. Results from pediatric patients should be interpreted [...] 104 98 - 107 mmol/L CERNER MILLENNIUM Carbon Dioxide 28 22 - 31 mmol/L CERNER MILLENNIUM Anion Gap 13 5 - 15 mmol/L CERNER MILLENNIUM Calcium 8.5 8.5 - 10.5 mg/dL CERNER MILLENNIUM Est Glomerular Filtration Rate 23(L) >=60 CERNER MILLENNIUM Comment: This estimated [...] CERNER MILLENNIUM * (ABNORMAL) CBC (with Diff) (12/19/2012 3:20 AM EDT) White Blood Cell 8.9 4.0 - 10.0 x10(3)/mc L CERNER MILLENNIUM Red Blood Cell 2.66(L) 3.93 - 5.22 x10(6)/mc L CERNER MILLENNIUM Hemoglobin 7.8(L) 11.2 - 15.7 gm/dL CERNER MILLENNIUM Hematocrit 23.2(L) 34.0 - 45.0 % CERNER MILLENNIUM Mean Cell Volume 87.2 79.0 - 94.0 fL CERNER MILLENNIUM Mean Cell Hemoglobin 29.3 26.6 - 32.2 pg CERNER MILLENNIUM Mean Cell Hemoglobin Concentration 33.6 32.0 - 36.5 gm/dL CERNER MILLENNIUM Platelet 123(L) 145 - 370 x10(3)/mc L CERNER MILLENNIUM RDW Standard Deviation 43.2 35.0 - 46.0 fL CERNER MILLENNIUM RDW coefficient of variation 14.5(H) 10.9 - 14.4 % CERNER MILLENNIUM Mean Platelet Volume 11.0 9.0 - 12.0 fL CERNER MILLENNIUM Blood specimen (specimen) 12/19/2012 3:20 AM EDT 12/19/2012 3:40 AM EDT Narrative Resulting Agency Comment Spec In Lab Luis E Trotter MD HEMATOLOGY ORDERABLE S BAR PINEDAIUM * (ABNORMAL) Calcium Ionized Whole Blood, CLEO (12/18/2012 9:05 PM EDT) pH, Venous 7.44(H) 7.32 - 7.42 CERELIO PINEDAIUM ICa Whole Blood 1.20 1.15 - 1.33 mmol/L BAR PINEDAIUM Comment: Reference Ranges: ?? < 19 yrs: 1.22 - 1.37 mmol/L ? Adults: 1.15 - 1.33 mmol/L Note: ??Total bilirubin higher than 20 mg/dL may lead to falsely low ionized calcium. Blood specimen (specimen) 12/18/2012 9:05 PM EDT 12/18/2012 9:11 PM EDT Narrative Resulting Agency Comment Spec In Lab Ankit Ohara MD CHEMISTRY ORDERABLES BAR NOE * UPPER GI ENDOSCOPY (12/18/2012 4:09 PM EDT) UPPER GI ENDOSCOPY [facility] Endoscopy Patient Name: Anum Henriquez ? Procedure Date: 12/18/2012 4:09 PM ? N: [id number] ? Date of : 1960 ? Age: 52 ? Order #: [id number] ? Procedure: ? Upper GI endoscopy Indications: ? Melena Providers: ? Alda Sullivan MD, Tonny Nguyen RN, ? Chikis Swanson, Funeral Arrangement Director Referring : ?Bakari Trang Medicines: ? Midazolam 1.5 mg IV, Fentanyl [...] GENERAL SURGICAL ORD ERABLES Performing Organization Address City/[facility] de Phone Number [employer]ATION * (ABNORMAL) Calcium Ionized Whole Blood, CLEO (12/18/2012 3:50 PM EDT) pH, Venous 7.42 7.32 - 7.42 CERNER MILLENNIUM ICa [...] Ohara MD CHEMISTRY ORDERABLES Performing Organization Address [facility] de Phone Number CERNER MILLENNIUM * (ABNORMAL) Calcium Ionized Whole Blood, CLEO (12/18/2012 2:35 PM EDT) pH, Venous 7.42 7.32 - 7.42 CERNER MILLENNIUM ICa Whole Blood 0.81(Criti lenard) 1.15 - 1.33 mmol/L CERNER MILLENNIUM Comment: Result rechecked. Called by: leonel, Read back by: Maria Alejandra Cararsco, Date/Time:12/18/12 14:50. Reference Ranges: ?? < 19 yrs: 1.22 - 1.37 mmol/L ? Adults: 1.15 - 1.33 mmol/L Note: ??Total bilirubin higher than 20 mg/dL may lead to falsely low ionized calcium. Blood specimen (specimen) 12/18/2012 2:35 PM EDT 12/18/2012 2:43 PM EDT Narrative Resulting Agency Comment Spec In Lab Jaleel Reynoso MD CHEMISTRY ORDERABLES Performing Organization Address [facility] Co de Phone Number CERNER MILLENNIUM * (ABNORMAL) Differential, Automated (12/18/2012 4:25 AM EDT) Neutrophil % 74.4(H) 34.0 - 71.0 % CERNER MILLENNIUM Neutrophil Absolute 5.75 1.50 - 6.30 x10(3)/mc L CERNER MILLENNIUM Lymph % 13.1(L) 19.0 - 53.0 % CERNER MILLENNIUM Lymphocytes Abs 1.0 1.0 - 3.6 x10(3)/mc L CERNER MILLENNIUM Monocyte % 7.2 4.0 - 13.0 % CERNER MILLENNIUM Monocyte Abs 0.6 0.2 - 1.0 x10(3)/mc L CERNER MILLENNIUM Eos % 3.6 0.0 - 7.0 % CERNER MILLENNIUM Eosinophils Abs 0.3 0.0 - 0.5 x10(3)/mc L CERNER MILLENNIUM Basophil % 0.1 0.0 - 2.0 % CERNER MILLENNIUM Baso [...] differential will be performed. Immature Gran Absolute 0.12(H) 0.00 - 0.05 x10(3)/mc L CERNER ISRRAELENNIUM Blood specimen (specimen) 12/18/2012 4:25 AM EDT 12/18/2012 4:36 AM EDT Luis E Trotter MD HEMATOLOGY ORDERABLE S BAR ARCOSENNIUM * Scan, Peripheral Blood (12/18/2012 4:25 AM EDT) Plat estimate Decreased CERNER MILLENNIUM RBC Morphology Normal CERNE R MILLENNIUM Blood specimen (specimen) 12/18/2012 4:25 AM EDT 12/18/2012 4:36 AM EDT Narrative Resulting Agency Comment Spec In Lab Luis E Trotter MD HEMATOLOGY ORDERABLE S Performing Organization Address City/[facility]/ZIP Co de Phone Number [facility] * Phosphorus (12/18/2012 4:25 AM EDT) Phosphorus 4.4 2.5 - 4.5 mg/dL [facility] Blood specimen (specimen) 12/18/2012 4:25 AM EDT 12/18/2012 4:36 AM EDT Narrative Resulting Agency Comment Spec In Lab Fabi Bliss MD CHEMISTRY ORDERA BLECornelius Performing Organization Address [facility] de Phone Number [facility] * Magnesium (12/18/2012 4:25 AM EDT) Magnesium 0.83 0.69 - 1.07 mmol/L [facility] Blood specimen (specimen) 12/18/2012 4:25 AM EDT 12/18/2012 4:36 AM EDT Narrative Resulting Agency Comment Spec In Lab Fabi Bliss MD CHEMISTRY ORDERA BLECornelius Performing Organization Address [facility] Co de Phone Number [facility] * (ABNORMAL) Lactate Dehydrogenase (12/18/2012 4:25 AM EDT) Lactate Dehydrogenase 306(H) 110 - 220 unit/L [facility] Blood specimen (specimen) 12/18/2012 4:25 AM EDT 12/18/2012 4:36 AM EDT Narrative Resulting Agency Comment Spec In Lab Fabi Bliss MD CHEMISTRY ORDERA BLECornelius Performing Organization Address [facility] Co de Phone Number [facility] * (ABNORMAL) Basic Metabolic Panel (non-fasting) (12/18/2012 4:25 AM EDT) Glucose 92 60 - 199 mg/dL CERNER MILLENNIUM Comment:Diabetes: >=200 mg/d L plus symptoms Blood Urea Nitrogen 41(H) 8 - 18 mg/dL CERNER MILLENNIUM Creatinine 2.28(H) 0.70 - 1.20 mg/dL CERNER MILLENNIUM Comment: Please note that the pediatric reference intervals supplied above were not validated at [facility]. Results from pediatric patients should be interpreted [...] 104 98 - 107 mmol/L CERNER MILLENNIUM Carbon Dioxide 29 22 - 31 mmol/L CERNER MILLENNIUM Anion Gap 7 5 - 15 mmol/L CERNER MILLENNIUM Calcium 8.1(L) 8.5 - 10.5 mg/dL CERNER MILLENNIUM Est [...] Lab Luis E Trotter MD CHEMISTRY ORDERABLES [facility] [email or web address] * (ABNORMAL) CBC (with Diff) (12/18/2012 4:25 AM EDT) White Blood Cell 7.7 4.0 - 10.0 x10(3)/mc L CERNER MILLENNIUM Red Blood Cell 2.60(L) 3.93 - 5.22 x10(6)/mc L CERNER MILLENNIUM Hemoglobin 7.9(L) 11.2 - 15.7 gm/dL CERNER MILLENNIUM Hematocrit 22.4(L) 34.0 - 45.0 % CERNER MILLENNIUM Mean Cell Volume 86.2 79.0 - 94.0 fL CERNER MILLENNIUM Mean Cell Hemoglobin 30.4 26.6 - 32.2 pg CERNER MILLENNIUM Mean Cell Hemoglobin Concentration 35.3 32.0 - 36.5 gm/dL CERNER MILLENNIUM Platelet 99(L) 145 - 370 x10(3)/mc L CERNER MILLENNIUM RDW Standard Deviation 43.7 35.0 - 46.0 fL CERNER MILLENNIUM RDW coefficient of variation 14.2 10.9 - 14.4 % CERNER MILLENNIUM Mean Platelet Volume 10.7 9.0 - 12.0 fL CERNER MILLENNIUM [...] findings to suggest pulmonary edema. Procedure Note Jalele Ferrari MD - 12/17/2012 Examination CHEST ROUTINE [...] * Red Hold (12/17/2012 6:49 PM EDT) Pathologist [facility] Red Hold Sample in lab. BAR [email or web address] Blood specimen (specimen) 12/17/2012 6:49 PM EDT 12/17/2012 7:06 PM EDT Fabi Bliss MD CHEMISTRY ORDERA BLES Performing Organization Address City/[facility]/ZIP Co de Phone Number [employer] * Hepatitis C Antibody (12/17/2012 6:49 PM EDT) [facility] Hepatitis C Antibody Negative Negative [facility] [employer] Blood specimen (specimen) 12/17/2012 6:49 PM EDT 12/17/2012 7:03 PM EDT Narrative Resulting Agency Comment Spec In Lab Fabi Bliss MD CHEMISTRY ORDERA BLES CERELIO [employer] * KIANA (12/17/2012 6:49 PM EDT) Pathologist [facility] KIANA Neg Neg BAR NOE Blood specimen (specimen) 12/17/2012 6:49 PM EDT 12/18/2012 8:09 AM EDT Narrative Resulting Agency Comment Spec In Lab Fabi Bliss MD LAB SEND OUT ORD ERABLES BAR NOE * Transfuse RBC (12/17/2012 5:07 PM EDT) Fabi Bliss MD NURSING TREATMEN T ORDERABLES - BLOOD ADMIN * Smear Review Report (12/17/2012 2:24 PM EDT) Pathologist [facility] Smear Review Report ? [facility] ? Provider: ?? FBAI BLISS Pt. Name: ?? FLORENCE ANUM Eliza ?M ? Acc #: ?[id number] ? Pt. ? Col Date: ?? 12/17/2012 [...] ? PK ? 12/17/12 Verified by: ? Greene Phuc PANTOJA ? Hematopathologist ? (Electronic Signature) ? The attending pathologist whose signature appears on this report has ? reviewed all diagnostic slides and has edited the gross and/or ? microscopic portion of the report in rendering the final pathologic ? diagnosis. ? ---Comment--- ? Scistocytes are more than noted in the previous smear; [id number]. BAR PINEDAIUM 12/17/2012 2:24 PM EDT Fabi Bliss MD HEMATOLOGY ORDER VIKAS Performing Organization Address [facility] Co de Phone Number BAR PINEDAIUM * Peripheral Smear Review (12/17/2012 1:00 PM EDT) Peripheral Smear Review See Comment BAR MILLENNIUM Comment: When completed by the Pathologist, report [id number] will display under Hematopathology Reports. Blood specimen (specimen) 12/17/2012 1:00 PM EDT 12/17/2012 1:10 PM EDT Narrative Resulting Agency Comment Spec In Lab Fabi Bliss MD HEMATOLOGY ORDER VIKAS Performing Organization Address City/[facility] Co de Phone Number BAR ISRRAELALEJOIUM * (ABNORMAL) Differential, Automated (12/17/2012 1:00 PM EDT) Neutrophil % 74.4(H) 34.0 - 71.0 % CERNER MILLENNIUM Neutrophil Absolute 5.12 1.50 - 6.30 x10(3)/mc L CERNER MILLENNIUM Lymph % 14.5(L) 19.0 - 53.0 % CERNER MILLENNIUM Lymphocytes Abs 1.0 1.0 - 3.6 x10(3)/mc L CERNER MILLENNIUM Monocyte % 7.4 4.0 - 13.0 % CERNER MILLENNIUM Monocyte Abs 0.5 0.2 - 1.0 x10(3)/mc L CERNER MILLENNIUM Eos % 2.6 0.0 - 7.0 % CERNER MILLENNIUM Eosinophils Abs 0.2 0.0 - 0.5 x10(3)/mc L CERNER MILLENNIUM Basophil % 0.1 0.0 - 2.0 % CERNER MILLENNIUM Baso [...] differential will be performed. Immature Gran Absolute 0.07(H) 0.00 - 0.05 x10(3)/mc L CERNER MILLENNIUM Blood specimen (specimen) 12/17/2012 1:00 PM EDT 12/17/2012 1:10 PM EDT Fabi Bliss MD HEMATOLOGY ORDER VIKAS CERNER ISRRAELENNIUM * (ABNORMAL) CBC (with Diff) (12/17/2012 1:00 PM EDT) White Blood Cell 6.9 4.0 - 10.0 x10(3)/mc L CERNER MILLENNIUM Red Blood Cell 2.14(L) 3.93 - 5.22 x10(6)/mc L CERNER MILLENNIUM Hemoglobin 6.2(L) 11.2 - 15.7 gm/dL CERNER MILLENNIUM Hematocrit 18.3(L) 34.0 - 45.0 % CERNER MILLENNIUM Mean Cell Volume 85.5 79.0 - 94.0 fL CERNER MILLENNIUM Mean Cell Hemoglobin 29.0 26.6 - 32.2 pg CERNER MILLENNIUM Mean Cell Hemoglobin Concentration 33.9 32.0 - 36.5 gm/dL CERNER MILLENNIUM Platelet 65(L) 145 - 370 x10(3)/mc L CERNER MILLENNIUM RDW Standard Deviation 44.3 35.0 - 46.0 fL CERNER MILLENNIUM RDW coefficient of variation 14.5(H) 10.9 - 14.4 % CERNER MILLENNIUM Mean Platelet Volume 10.8 9.0 - 12.0 fL CERNER MILLENNIUM Blood specimen (specimen) 12/17/2012 1:00 PM EDT 12/17/2012 1:10 PM EDT Narrative Resulting Agency Comment Spec In Lab Fabi Bliss MD HEMATOLOGY ORDER VIKAS BAR ARCOSENNIUM * Prepare RBC (12/17/2012 9:35 AM EDT) Dispensed? Yes BAR ARCOSENNIUM Blood specimen (specimen) 12/17/2012 9:35 AM EDT 12/17/2012 9:34 AM EDT Fabi Bliss MD BLOOD BANK PRODU CT ORDERABLES Performing Organization Address City/[facility]/ZIP Co de Phone Number BAR PINEDAIUM * Scan, Peripheral Blood (12/17/2012 4:00 AM EDT) Plat estimate Decreased CERNER MILLENNIUM RBC Morphology Abnormal CERNE R MILLENNIUM Polychromasia Present >5/HPF CERNER MILLENNIUM Schistocyte 6-10 /HPF CERNER MILLENNIUM Blood specimen (specimen) 12/17/2012 4:00 AM EDT 12/17/2012 4:04 AM EDT Narrative Resulting Agency Comment Spec In Lab Luis E Trotter MD HEMATOLOGY ORDERABLE S Performing Organization Address City/[facility]/ZIP Co de Phone Number BAR PINEDAIUM * (ABNORMAL) Differential, Automated (12/17/2012 4:00 AM EDT) Neutrophil % 77.4(H) 34.0 - 71.0 % CERNER MILLENNIUM Neutrophil Absolute 5.16 1.50 - 6.30 x10(3)/mc L CERNER MILLENNIUM Lymph % 11.5(L) 19.0 - 53.0 % CERNER MILLENNIUM Lymphocytes Abs 0.8(L) 1.0 - 3.6 x10(3)/mc L CERNER MILLENNIUM Monocyte % 7.6 4.0 - 13.0 % CERNER MILLENNIUM Monocyte Abs 0.5 0.2 - 1.0 x10(3)/mc L CERNER MILLENNIUM Eos % 2.2 0.0 - 7.0 % CERNER MILLENNIUM Eosinophils Abs 0.2 0.0 - 0.5 x10(3)/mc L CERNER MILLENNIUM Basophil % 0.1 0.0 - 2.0 % CERNER MILLENNIUM Baso [...] differential will be performed. Immature Gran Absolute 0.08(H) 0.00 - 0.05 x10(3)/mc L CERNER MILLENNIUM Blood specimen (specimen) 12/17/2012 4:00 AM EDT 12/17/2012 4:04 AM EDT Luis E Trotter MD HEMATOLOGY ORDERABLE S BAR PINEDAIUM * (ABNORMAL) Lactate Dehydrogenase (12/17/2012 4:00 AM EDT) Lactate Dehydrogenase 366(H) 110 - 220 unit/L CERNER MILLENNIUM Blood specimen (specimen) 12/17/2012 4:00 AM EDT 12/17/2012 4:04 AM EDT Narrative Resulting Agency Comment Spec In Lab Fabi Bliss MD CHEMISTRY ORDERA ERICK CERNER MILLENNIUM * (ABNORMAL) Basic Metabolic Panel (non-fasting) (12/17/2012 4:00 AM EDT) [facility] Signature Glucose 105 60 - 199 mg/dL CERNER MILLENNIUM Comment:Diabetes: >=200 mg/d L plus symptoms Blood Urea Nitrogen 37(H) 8 - 18 mg/dL CERNER MILLENNIUM Creatinine 2.25(H) 0.70 - 1.20 mg/dL CERNER MILLENNIUM Comment: Please note that the pediatric reference intervals supplied above were not validated at [facility]. Results from pediatric patients should be interpreted [...] 108(H) 98 - 107 mmol/L CERNER MILLENNIUM Carbon Dioxide 24 22 - 31 mmol/L CERNER MILLENNIUM Anion Gap 9 5 - 15 mmol/L CERNER MILLENNIUM Calcium 8.2(L) 8.5 - 10.5 mg/dL CERNER MILLENNIUM Est Glomerular Filtration Rate 23(L) >=60 CERNER MILLENNIUM Comment: This estimated [...] BAR PINEDAIUM * (ABNORMAL) CBC (with Diff) (12/17/2012 4:00 AM EDT) White Blood Cell 6.7 4.0 - 10.0 x10(3)/mc L CERNER MILLENNIUM Red Blood Cell 2.33(L) 3.93 - 5.22 x10(6)/mc L CERNER MILLENNIUM Hemoglobin 7.0(L) 11.2 - 15.7 gm/dL CERNER MILLENNIUM Hematocrit 19.7(L) 34.0 - 45.0 % CERNER MILLENNIUM Mean Cell Volume 84.5 79.0 - 94.0 fL CERNER MILLENNIUM Mean Cell Hemoglobin 30.0 26.6 - 32.2 pg CERNER MILLENNIUM Mean Cell Hemoglobin Concentration 35.5 32.0 - 36.5 gm/dL CERNER MILLENNIUM Platelet 58(L) 145 - 370 x10(3)/mc L CERNER MILLENNIUM RDW Standard Deviation 44.0 35.0 - 46.0 fL CERNER MILLENNIUM RDW coefficient of variation 14.5(H) 10.9 - 14.4 % CERNER MILLENNIUM Mean Platelet Volume 10.7 9.0 - 12.0 fL CERNER MILLENNIUM Blood specimen (specimen) 12/17/2012 4:00 AM EDT 12/17/2012 4:04 AM EDT Narrative Resulting Agency Comment Spec In Lab Luis E Trotter MD HEMATOLOGY ORDERABLE S BAR NOE * Shiga Toxin Detection (12/17/2012 3:32 AM EDT) Shiga Toxin Assay ? Patient Name: ANUM HENRIQUEZ ?Ordered By: FABI BLISS ? MR#: [id number] ?LOC: ??1WST ? /Sex: ??1960 (52 years), ? Female ? PROCEDURE: Shiga Toxin Assay ?SOURCE: Stool ? COLLECTED: 12/17/2012 03:32 ?FREE TEXT SOURCE: Clinical TTP-HUS. Please test for E coli O157: ? STARTED: 12/17/2012 14:48 ? H7 / shiga toxin. ? FINAL REPORT ? Final Report ? Verified:12/09 15:59 ? Test not performed due to no enteric growth. ? __ [facility] Stool specimen (specimen) 12/17/2012 3:32 AM EDT 12/17/2012 2:48 PM EDT Comment:CLINICAL TTP-HUS. PL EASE TEST FOR E COLI O157:H7 / SHIGA TOXIN. Narrative Resulting Agency Comment Spec In Lab Fabi Bliss MD MICROBIOLOGY - G ENERAL ORDERABLES [facility] * Campylobacter Antigen (12/17/2012 3:32 AM EDT) Campylobacter Ag ? Patient Name: AUNM HENRIQUEZ ?Ordered By: FABI BLISS ? MR#: [id number] ?LOC: ??1WST ? /Sex: ??1960 (52 years), ? Female ? PROCEDURE: Campylobacter Antigen ?SOURCE: Stool ? COLLECTED: 12/17/2012 03:32 ?FREE TEXT SOURCE: Clinical TTP-HUS. Please test for E coli O157: ? STARTED: 12/17/2012 14:49 ? H7 / shiga toxin. ? FINAL REPORT ? Final Report ? Verified: 013 13:37 ? Immunoassay Negative for Campylobacter Antigen ? CERNER ISRRAELENNIUM Stool specimen (specimen) 12/17/2012 3:32 AM EDT 12/17/2012 2:49 PM EDT Comment:CLINICAL TTP-HUS. PL EASE TEST FOR E COLI O157:H7 / SHIGA TOXIN. Narrative Resulting Agency Comment Spec In Lab Fabi Bliss MD MICROBIOLOGY - G ENERAL ORDERABLES [facility] * Stool culture (12/17/2012 3:32 AM EDT) Stool Culture ? Patient Name: ANUM HENRIQUEZ ?Ordered By: FABI BLISS ? MR#: [id number] ?LOC: ??1WST ? /Sex: ??1960 (52 years), [...] - G ENERAL ORDERABLES Performing Organization Address [facility] Co de Phone Number [facility] * Cryptosporidium Oocyst Antigen (12/17/2012 3:32 AM EDT) Cryptosporidium Antigen Negative Negative [facility] Stool specimen (specimen) 12/17/2012 3:32 AM EDT 12/17/2012 2:49 PM EDT Narrative Resulting Agency Comment Spec In Lab Luis E Trotter MD MICROBIOLOGY - GENER AL ORDERABLES Performing Organization Address [facility] Co de Phone Number [facility] * Giardia antigen (12/17/2012 3:32 AM EDT) Giardia Antigen Negative Negative [facility] Comment:Examination for othe r intestinal parasites requires foreign travel history. Stool specimen (specimen) 12/17/2012 3:32 AM EDT 12/17/2012 2:49 PM EDT Narrative Resulting Agency Comment Spec In Lab Luis E Trotter MD MICROBIOLOGY - GENER AL ORDERABLES Performing Organization Address [facility] Co de Phone Number [facility] * MRI brain WO contrast (12/16/2012 9:02 PM EDT) Anatomical Region Laterality Modality Head Magnetic Resonan ce 12/16/2012 9:02 PM EDT Narrative 12/17/2012 8:23 AM EDT Examination MR Brain without Contrast Clinical History Pt with TTP-HUS, anemia, thrombocytopenia. New AMS, may be 2/2 TTP but want to r/o HAIR MIXER bleed, stroke, or any e/o HAIR MIXER vasculitis Comparison None Technique We obtained multi [...] may be 2/2 TTP butwant to r/o HAIR MIXER bleed, stroke, or any e/o HAIR MIXER vasculitis Comparison None Technique We obtained multi [...] Lab Fabi Bliss MD CHEMISTRY ORDERA BLES [facility] * Place PICC Line: Contact Vascular Access Page [phone] (12/16/2012 3:36 PM EDT) Narrative Edvin Brian [...] to the planned procedure. Hand Hygiene: The aquatic laborer did perform hand hygiene prior to line insertion. Catheter type: PICC Lot number: [id number] Procedure Technique: Skin was prepped with chlorhexidine. [...] to the planned procedure. Hand Hygiene: The aquatic laborer did perform hand hygiene prior to line insertion. Catheter type: PICC Lot number: [id number] Procedure Technique: Skin was prepped with chlorhexidine. [...] (ABNORMAL) C4 Complement (12/16/2012 2:00 PM EDT) Complement C4 4(L) 10 - 40 mg/dL [facility] Blood specimen (specimen) 12/16/2012 2:00 PM EDT 12/16/2012 2:15 PM EDT Narrative Resulting Agency Comment Spec In Lab Fabi Bliss MD CHEMISTRY ORDERA BLES [facility] [email or web address] * (ABNORMAL) C3 Complement (12/16/2012 2:00 PM EDT) Complement C3 66(L) 90 - 180 mg/dL [facility] Blood specimen (specimen) 12/16/2012 2:00 PM EDT 12/16/2012 2:15 PM EDT Narrative Resulting Agency Comment Spec In Lab Fabi Bliss MD CHEMISTRY ORDERA BLES Performing Organization Address [facility] Co de Phone Number [facility] * (ABNORMAL) C2 Complement (12/16/2012 2:00 PM EDT) C2 Complement <1.3(L) 1.6 - 3.5 mg/dL [facility] Comment: Low levels of C2 indicate increased catabolism (as in immune complex disease) or decreased synthesis. Test performed by [facility], [address] [place] [address] Blood specimen (specimen) 12/16/2012 2:00 PM EDT 12/16/2012 2:54 PM EDT Narrative Resulting Agency Comment Spec In Lab Fabi Bliss MD CHEMISTRY ORDERA BLECornelius Performing Organization Address [facility] de Phone Number [facility] * C1 Esterase Inhibitor, Functional (12/16/2012 2:00 PM EDT) C1 Scarlett Inh Qnt (OCTOBER) 90 % normal [facility] Comment: -- REFERENCE VALUE -- >67 (Normal) 41-67 (Equivocal) <41 (Abnormal) Test Performed by: [address] [address] Drying Tumbler Operator: Tulio Luna III, M.D. Blood specimen (specimen) 12/16/2012 2:00 PM EDT 12/16/2012 3:14 PM EDT Narrative Resulting Agency Comment Spec In Lab Fabi Bliss MD LAB SEND OUT ORD ERABLES Performing Organization Address [facility] Co de Phone Number [facility] * Proteinase-3 Antibody (12/16/2012 2:00 PM EDT) Proteinase 3 Antibody 3.6 <=20.0 unit(s) CERNER MILLENNIUM Blood specimen (specimen) 12/16/2012 2:00 PM EDT 12/17/2012 8:07 AM EDT Narrative Resulting Agency Comment Spec In Lab Faib Bliss MD IMMUNOLOGY ORDER VIKAS Performing Organization Address [facility] de Phone Number BAR PINEDAIUM * Myeloperoxidase Ab (12/16/2012 2:00 PM EDT) Myeloperoxidase Antibody 2.8 <=20.0 unit(s) CERNER MILLENNIUM Blood specimen (specimen) 12/16/2012 2:00 PM EDT 12/17/2012 8:07 AM EDT Narrative Resulting Agency Comment Spec In Lab Fabi Bliss MD IMMUNOLOGY ORDER VIKAS Performing Organization Address [facility] Phone Number CERELIO PINEDAIUM * Cytoplasmic Neutrophilic Ab (12/16/2012 2:00 PM EDT) C-Anca (MAY) Negative Negative CERNER MILLENNIUM Comment: Test Performed by: [place] [address] Drying Tumbler Operator: Tulio Luna III, M.D. P-Anca (MAY) Negative Negative CERNER MILLENNIUM Comment: Negative for cANCA and pANCA patterns by immunofluorescence. Test Performed by: [place] [address] Drying Tumbler Operator: Tulio Luna III, M.D. Blood specimen (specimen) 12/16/2012 2:00 PM EDT 12/16/2012 3:13 PM EDT Narrative Resulting Agency Comment Spec In Lab Fabi Bliss MD LAB SEND OUT ORD ERABLES Performing Organization Address [facility] de Phone Number CERELIO PINEDAIUM * (ABNORMAL) T4, free (12/16/2012 2:00 PM EDT) Free T4 0.88(L) 0.90 - 1.60 ng/dL CERNER MILLENNIUM Blood specimen (specimen) 12/16/2012 2:00 PM EDT 12/16/2012 2:15 PM EDT Narrative Resulting Agency Comment Spec In Lab Fabi Bliss MD CHEMISTRY ORDERBhumi SUAREZ Performing Organization Address [facility] Co de Phone Number BAR ARCOSENNIUM * (ABNORMAL) T3, free (12/16/2012 2:00 PM EDT) Free T3 1.6(L) 2.0 - 3.5 pg/mL CERNER MILLENNIUM Comment: Test Performed by: [facility] [place] [address] Drying Tumbler Operator: Jennifer Ramirez, Ph.D. Blood specimen (specimen) 12/16/2012 2:00 PM EDT 12/16/2012 3:13 PM EDT Narrative Resulting Agency Comment Spec In Lab Fabi Bliss MD CHEMISTRY MARYANN SUAREZ Performing Organization Address [facility] de Phone Number BAR PINEDAIUM * TSH (12/16/2012 2:00 PM EDT) Thyroid Stimulating Hormone 3.68 0.27 - 4.20 mcIU/mL CERELIO ARCOSENNIUM Blood specimen (specimen) 12/16/2012 2:00 PM EDT 12/16/2012 2:15 PM EDT Narrative Resulting Agency Comment Spec In Lab Fabi Bliss MD CHEMISTRY MARYANN SUAREZ Performing Organization Address [facility] Co de Phone Number CERELIO ARCOSENNIUM * (ABNORMAL) Urinalysis with microscopic (12/16/2012 1:35 PM EDT) Glucose, Urine Dipstick Negative Negative mg/dL [facility] Protein, Urine Dipstick 300(A) Neg mg/dL CERNER MILLENNIUM Bilirubin, Urine Dipstick Negative Negative mg/dL CERNER MILLENNIUM Urobilinogen, Urine Dipstick Normal mg/dL CERNER MILLENNIUM pH, Urn (dipstick) 6.0 5.0 - 8.0 CERNER MILLENNIUM Blood, Urine Dipstick Moderate mg/dL CERNER MILLENNIUM Ketone, Urine Dipstick Negative mg/dL CERNER MILLENNIUM Nitrite, Urine Dipstick Negative CERNER MILLENNIUM Leukocytes, Urine Dipstick Small(A) Neg CERNER MILLENNIUM Appearance, Urine Dipstick Hazy(A) Clear CERNER MILLENNIUM Specific [place] Urine Automated 1.013 1.002 - 1.030 CERNER MILLENNIUM Color, Urine Dipstick Yellow Yellow CERNER MILLENNIUM RBC, Urine 70(H) 0 - 4 /HPF CERNER MILLENNIUM WBC, Urine 12(H) 0 - 5 /HPF CERNER MILLENNIUM Bacteria, Urine Occasional /HPF CERNER MILLENNIUM Squamous Epithelial Cells, Urine 1 <=4 /HPF CERNER MILLENNIUM Hyaline Casts, Urine 11(H) 0 - 2 /LPF CERNER MILLENNIUM Urine specimen (specimen) 12/16/2012 1:35 PM EDT 12/16/2012 1:52 PM EDT Narrative Resulting Agency Comment Spec In Lab Fabi Bliss MD URINE ORDERABLES CERNER MILLENNIUM * (ABNORMAL) Differential, Automated (12/16/2012 4:40 AM EDT) Neutrophil % 73.5(H) 34.0 - 71.0 % CERNER MILLENNIUM Neutrophil Absolute 4.69 1.50 - 6.30 x10(3)/mc L CERNER MILLENNIUM Lymph % 15.5(L) 19.0 - 53.0 % CERNER MILLENNIUM Lymphocytes Abs 1.0 1.0 - 3.6 x10(3)/mc L CERNER MILLENNIUM Monocyte % 6.6 4.0 - 13.0 % CERNER MILLENNIUM Monocyte Abs 0.4 0.2 - 1.0 x10(3)/mc L CERNER MILLENNIUM Eos % 3.1 0.0 - 7.0 % CERNER MILLENNIUM Eosinophils Abs 0.2 0.0 - 0.5 x10(3)/mc L CERNER MILLENNIUM Basophil % 0.2 0.0 - 2.0 % CERNER MILLENNIUM Baso [...] differential will be performed. Immature Gran Absolute 0.07(H) 0.00 - 0.05 x10(3)/mc L CERNER MILLENNIUM Blood specimen (specimen) 12/16/2012 4:40 AM EDT 12/16/2012 4:47 AM EDT Luis E Trotter MD HEMATOLOGY ORDERABLE S CERNER MILLENNIUM * (ABNORMAL) Hepatic Function Panel (12/16/2012 4:40 AM EDT) Pathologist [facility] Protein, Total 4.3(L) 6.4 - 8.3 gm/dL CERNER MILLENNIUM Albumin 2.6(L) 3.2 - 5.2 gm/dL CERNER MILLENNIUM Aspartate Aminotransferase 49(H) 0 - 30 unit/L CERNER MILLENNIUM Alanine Aminotransferase 21 0 - 30 unit/L CERNER MILLENNIUM Comment:result rechecked-[facility] Alkaline Phosphatase 32(L) 40 - 104 unit/L CERNER MILLENNIUM Bilirubin, Total 0.8 0.2 - 1.3 mg/dL CERNER MILLENNIUM Bilirubin, Direct 0.2 0.0 - 0.3 mg/dL CERNER MILLENNIUM Blood specimen (specimen) 12/16/2012 4:40 AM EDT 12/16/2012 4:47 AM EDT Narrative Resulting Agency Comment Spec In Lab Luis E Trotter MD CHEMISTRY ORDERABLES CERNER MILLENNIUM * (ABNORMAL) Lactate Dehydrogenase (12/16/2012 4:40 AM EDT) Lactate Dehydrogenase 455(H) 110 - 220 unit/L CERNER MILLENNIUM Blood specimen (specimen) 12/16/2012 4:40 AM EDT 12/16/2012 4:47 AM EDT Narrative Resulting Agency Comment Spec In Lab Fabi Bliss MD CHEMISTRY ORDERA BLES Performing Organization Address [facility] Co de Phone Number CERNER MILLENNIUM * (ABNORMAL) Basic Metabolic Panel (non-fasting) (12/16/2012 4:40 AM EDT) Glucose 110 60 - 199 mg/dL CERNER MILLENNIUM Comment:Diabetes: >=200 mg/d L plus symptoms Blood Urea Nitrogen 33(H) 8 - 18 mg/dL CERNER MILLENNIUM Creatinine 2.29(H) 0.70 - 1.20 mg/dL CERNER MILLENNIUM Comment: Please note that the pediatric reference intervals supplied above were not validated at [facility]. Results from pediatric patients should be interpreted [...] 111(H) 98 - 107 mmol/L CERNER MILLENNIUM Carbon Dioxide 22 22 - 31 mmol/L CERNER MILLENNIUM Anion Gap 6 5 - 15 mmol/L CERNER MILLENNIUM Calcium 8.1(L) 8.5 - 10.5 mg/dL CERNER MILLENNIUM Est [...] Lab Luis E Trotter MD CHEMISTRY ORDERABLES [facility] M[facility] * (ABNORMAL) CBC (with Diff) (12/16/2012 4:40 AM EDT) White Blood Cell 6.4 4.0 - 10.0 x10(3)/mc L CERNER MILLENNIUM Red Blood Cell 2.63(L) 3.93 - 5.22 x10(6)/mc L CERNER MILLENNIUM Hemoglobin 7.5(L) 11.2 - 15.7 gm/dL CERNER MILLENNIUM Hematocrit 22.2(L) 34.0 - 45.0 % CERNER MILLENNIUM Mean Cell Volume 84.4 79.0 - 94.0 fL CERNER MILLENNIUM Mean Cell Hemoglobin 28.5 26.6 - 32.2 pg CERNER MILLENNIUM Mean Cell Hemoglobin Concentration 33.8 32.0 - 36.5 gm/dL CERNER MILLENNIUM Platelet 42(L) 145 - 370 x10(3)/mc L CERNER MILLENNIUM RDW Standard Deviation 43.7 35.0 - 46.0 fL CERNER MILLENNIUM RDW coefficient of variation 14.4 10.9 - 14.4 % CERNER MILLENNIUM Mean Platelet Volume Not Measured 9.0 - 12.0 fL CERNER MILLENNIUM Blood specimen (specimen) 12/16/2012 4:40 [...] Screen (12/15/2012 7:42 AM EDT) C Diff Interp Negative Negative ABR NOE Stool specimen (specimen) 12/15/2012 7:42 AM EDT 12/15/2012 8:15 AM EDT Narrative Resulting Agency Comment Spec In Lab Luis E Trotter MD MICROBIOLOGY - GENER AL ORDERABLES Performing Organization Address [facility] Phone Number [facility] * (ABNORMAL) Fecal Lactoferrin (12/15/2012 7:42 AM EDT) Fecal Lactoferrin Positive( A) Negative [facility] Stool specimen (specimen) 12/15/2012 7:42 AM EDT 12/15/2012 8:15 AM EDT Narrative Resulting Agency Comment Spec In Lab Luis E Trotter MD MICROBIOLOGY - GENER AL ORDERABLES Performing Organization Address [facility] Phone Number [facility] * Phosphorus (12/15/2012 3:50 AM EDT) Phosphorus 3.1 2.5 - 4.5 mg/dL [facility] Comment:Result rechecked. Blood specimen (specimen) 12/15/2012 3:50 AM EDT 12/15/2012 10:26 AM EDT Narrative Resulting Agency Comment Spec In Lab Luis E Trotter MD CHEMISTRY ORDERABLES Performing Organization Address [facility] Phone Number [facility] * Magnesium (12/15/2012 3:50 AM EDT) Magnesium 0.72 0.69 - 1.07 mmol/L [facility] Blood specimen (specimen) 12/15/2012 3:50 AM EDT 12/15/2012 10:26 AM EDT Narrative Resulting Agency Comment Spec In Lab Luis E Trotter MD CHEMISTRY ORDERABLES Performing Organization Address [facility] Phone Number [facility] * (ABNORMAL) Lactate Dehydrogenase (12/15/2012 3:50 AM EDT) Lactate Dehydrogenase 417(H) 110 - 220 unit/L [facility] Blood specimen (specimen) 12/15/2012 3:50 AM EDT 12/15/2012 4:01 AM EDT Narrative Resulting Agency Comment Spec In Lab Luis E Trotter MD CHEMISTRY ORDERABLES CERNER ISRRAELENNIUM * (ABNORMAL) Differential, Automated (12/15/2012 3:50 AM EDT) Neutrophil % 68.6 34.0 - 71.0 % CERNER MILLENNIUM Neutrophil Absolute 4.35 1.50 - 6.30 x10(3)/mc L CERNER MILLENNIUM Lymph % 18.5(L) 19.0 - 53.0 % CERNER MILLENNIUM Lymphocytes Abs 1.2 1.0 - 3.6 x10(3)/mc L CERNER MILLENNIUM Monocyte % 8.4 4.0 - 13.0 % CERNER MILLENNIUM Monocyte Abs 0.5 0.2 - 1.0 x10(3)/mc L CERNER MILLENNIUM Eos % 2.8 0.0 - 7.0 % CERNER [...] differential will be performed. Immature Gran Absolute 0.09(H) 0.00 - 0.05 x10(3)/mc L CERNER MILLENNIUM Blood specimen (specimen) 12/15/2012 3:50 AM EDT 12/15/2012 4:00 AM EDT Luis E Trotter MD HEMATOLOGY ORDERABLE S BAR MILLENNIUM * (ABNORMAL) Basic Metabolic Panel (non-fasting) (12/15/2012 3:50 AM EDT) [facility] Glucose 109 60 - 199 mg/dL CERNER MILLENNIUM Comment:Diabetes: >=200 mg/d L plus symptoms Blood Urea Nitrogen 26(H) 8 - 18 mg/dL CERNER MILLENNIUM Creatinine 2.12(H) 0.70 - 1.20 mg/dL CERNER MILLENNIUM Comment: Please note that the pediatric reference intervals supplied above were not validated at [facility]. Results from pediatric patients should be interpreted [...] 113(H) 98 - 107 mmol/L CERNER MILLENNIUM Carbon Dioxide 20(L) 22 - 31 mmol/L CERNER MILLENNIUM Anion Gap 6 5 - 15 mmol/L CERNER MILLENNIUM Calcium 7.9(L) 8.5 - 10.5 mg/dL CERNER MILLENNIUM Est [...] BAR NOE * (ABNORMAL) CBC (with Diff) (12/15/2012 3:50 AM EDT) White Blood Cell 6.3 4.0 - 10.0 x10(3)/mc L CERNER MILLENNIUM Red Blood Cell 3.01(L) 3.93 - 5.22 x10(6)/mc L CERNER MILLENNIUM Hemoglobin 9.2(L) 11.2 - 15.7 gm/dL CERNER MILLENNIUM Hematocrit 25.6(L) 34.0 - 45.0 % CERNER MILLENNIUM Mean Cell Volume 85.0 79.0 - 94.0 fL CERNER MILLENNIUM Mean Cell Hemoglobin 30.6 26.6 - 32.2 pg CERNER MILLENNIUM Mean Cell Hemoglobin Concentration 35.9 32.0 - 36.5 gm/dL CERNER MILLENNIUM Platelet 41(L) 145 - 370 x10(3)/mc L CERNER MILLENNIUM RDW Standard Deviation 43.9 35.0 - 46.0 fL CERNER MILLENNIUM RDW coefficient of variation 14.2 10.9 - 14.4 % CERNER MILLENNIUM Mean Platelet Volume 11.1 9.0 - 12.0 fL CERNER MILLENNIUM [...] Addendum Begins VIR PROCEDURE NOTE ?? ACC#: [id number] ?? PROCEDURE: Non-tunneled right internal jugular triple [...] Addendum Begins VIR PROCEDURE NOTE ?? ACC#: [id number] ?? PROCEDURE: Non-tunneled right internal jugular triple [...] Addendum Begins VIR PROCEDURE NOTE ?? ACC#: [id number] ?? PROCEDURE: Non-tunneled right internal jugular triple [...] Addendum Begins VIR PROCEDURE NOTE ?? ACC#: [id number] ?? PROCEDURE: Non-tunneled right internal jugular triple [...] AM EDT VIR PROCEDURE NOTE ?? ACC#: [id number] ?? PROCEDURE: Non-tunneled right internal jugular triple [...] MD - 12/20/2012 VIR PROCEDURE NOTE ACC#: [id number] PROCEDURE: Non-tunneled right internal jugular triple lumen [...] Bliss MD IMG IR ORDERABLE S * [id number] Activity (12/14/2012 2:02 PM EDT) Pathologist [facility] [id number] Activity (OCTOBER) 94 >/=70 % BAR ISRRAELMEKHI Comment: For research use only. Test Performed by: [place] [address] Drying Tumbler Operator: Tulio Luna III, M.D. [id number] Interpretation (OCTOBER) SEE COMMENTS BAR NOE Comment: No laboratory evidence of [id number] deficiency. ??A normal [id number] activity level does not completely exclude a clinical diagnosis of thrombotic thrombocytopenic purpura (TTP). ??Recommend clinical correlation. Test Performed by: [place] [address] Drying Tumbler Operator: Tulio Luna III, M.D. Blood specimen (specimen) 12/14/2012 2:02 PM EDT 12/16/2012 8:36 AM EDT Narrative Resulting Agency Comment Spec In Lab Yudith Raya DO LAB SEND OUT OR DERABLES Performing Organization Address [facility] Co de Phone Number BAR ISRRAELMEKHI * Proteinase-3 Antibody (12/14/2012 12:03 PM EDT) Pathologist [facility] Proteinase 3 Antibody 3.5 <=20.0 unit(s) BAR NOE Blood specimen (specimen) 12/14/2012 12:03 PM EDT 12/16/2012 8:26 AM EDT Narrative Resulting Agency Comment Spec In Lab Luis E Trotter MD IMMUNOLOGY ORDERABLE S Performing Organization Address City/[facility]/ZIP Co de Phone Number BAR ISRRAELMEKHI * Myeloperoxidase Ab (12/14/2012 12:03 PM EDT) Myeloperoxidase Antibody 3.0 <=20.0 unit(s) CERNER MILLENNIUM Blood specimen (specimen) 12/14/2012 12:03 PM EDT 12/16/2012 8:26 AM EDT Narrative Resulting Agency Comment Spec In Lab Luis E Trotter MD IMMUNOLOGY ORDERABLE S Performing Organization Address [facility] de Phone Number CERELIO ARCOSENNIUM * Cytoplasmic Neutrophilic Ab (12/14/2012 12:03 PM EDT) C-Anca (OCTOBER) Negative Negative CERNER MILLENNIUM Comment: Test Performed by: [place] [address] Drying Tumbler Operator: Tulio Luna III, M.D. P-Anca (OCTOBER) Negative Negative CERNER MILLENNIUM Comment: Negative for cANCA and pANCA patterns by immunofluorescence. Test Performed by: [place] [address] Drying Tumbler Operator: Tulio Luna III, M.D. Blood specimen (specimen) 12/14/2012 12:03 PM EDT 12/16/2012 8:13 AM EDT Narrative Resulting Agency Comment Spec In Lab Luis E Trotter MD LAB SEND OUT ORDERAB LES Performing Organization Address [facility] de Phone Number CERELIO ARCOSENNIUM * Antibody screen (12/14/2012 9:47 AM EDT) Ab Screen Interp Negative CERNER MILLENNIUM Expires at [id number] on: [id number] CERNER MILLENNIUM Blood specimen (specimen) 12/14/2012 9:47 AM EDT 12/14/2012 9:53 AM EDT Narrative Resulting Agency Comment Spec In Lab Luis E Trotter MD BLOOD BANK LAB ORDER VIKAS Performing Organization Address [facility] Co de Phone Number CERNER ISRRAELENNIUM * ABO/Rh Typing (12/14/2012 9:47 AM EDT) ABORH Type AB Pos CERNER MILLENNIUM Blood specimen (specimen) 12/14/2012 9:47 AM EDT 12/14/2012 9:53 AM EDT Narrative Resulting Agency Comment Spec In Lab Luis E Trotter MD BLOOD BANK LAB ORDER VIKAS [facility] * (ABNORMAL) Reticulocyte Count (12/14/2012 9:47 AM EDT) Reticulocyte % 1.1 0.5 - 2.4 % CERNER MILLENNIUM Retic Abs # 0.040 0.027 - 0.095 x10(6)/mcL CERNER MILLENNIUM Immature Retic% 23.7(H) 2.3 - 15.9 % CERNER MILLENNIUM Reticulated Hgb 30.4 28.8 - 38.9 pg CERNER MILLENNIUM Immature Plt % 8.7(H) 0.0 - 7.4 % CERNER MILLENNIUM Blood specimen (specimen) 12/14/2012 9:47 AM EDT 12/14/2012 9:52 AM EDT Narrative Resulting Agency Comment Spec In Lab Luis E Trotter MD HEMATOLOGY ORDERABLE S Performing Organization Address [facility] Co de Phone Number BAR PINEDAIUM * Direct antiglobulin test (12/14/2012 9:47 AM EDT) SEN Poly Negative CERNER MILLENNIUM Blood specimen (specimen) 12/14/2012 9:47 AM EDT 12/14/2012 9:53 AM EDT Narrative Resulting Agency Comment Spec In Lab Luis E Trotter MD BLOOD BANK LAB ORDER VIKAS BAR [facility] * Smear Review Report (12/14/2012 5:49 AM EDT) Pathologist [facility] Smear Review Report ? [facility] ? Provider: ?? LUIS E TROTTER ?Pt. Name: ?? ANUM HENRIQUEZ ? Acc #: ?[id number] ? Pt. ? Col Date: ?? 12/14/2012 [...] rendering the final pathologic ? diagnosis. BAR NOE 12/14/2012 5:49 AM EDT Luis E Trotter MD HEMATOLOGY ORDERABLE S [facility] * (ABNORMAL) Differential, Automated (12/14/2012 5:49 AM EDT) Neutrophil % 69.0 34.0 - 71.0 % CERNER MILLENNIUM Neutrophil Absolute 5.70 1.50 - 6.30 x10(3)/mc L CERNER MILLENNIUM Lymph % 17.3(L) 19.0 - 53.0 % CERNER MILLENNIUM Lymphocytes Abs 1.4 1.0 - 3.6 x10(3)/mc L CERNER MILLENNIUM Monocyte % 9.7 4.0 - 13.0 % CERNER MILLENNIUM Monocyte Abs 0.8 0.2 - 1.0 x10(3)/mc L CERNER MILLENNIUM Eos % 2.4 0.0 - 7.0 % CERNER MILLENNIUM Eosinophils Abs 0.2 0.0 - 0.5 x10(3)/mc L CERNER MILLENNIUM Basophil % 0.5 0.0 - 2.0 % CERNER MILLENNIUM Baso [...] differential will be performed. Immature Gran Absolute 0.09(H) 0.00 - 0.05 x10(3)/mc L CERNER MILLENNIUM Blood specimen (specimen) 12/14/2012 5:49 AM EDT 12/14/2012 5:58 AM EDT Luis E Trotter MD HEMATOLOGY ORDERABLE S CERNER MILLENNIUM * Scan, Peripheral Blood (12/14/2012 5:49 AM EDT) Plat estimate Decreased CERNER MILLENNIUM RBC Morphology Abnormal CERNE R MILLENNIUM Ovalocytes 1-5 /HPF CERNER MILLENNIUM Schistocyte 1-5 /HPF CERNER MILLENNIUM Gretchen Cells 6-10 /HPF CERNER MILLENNIUM Blood specimen (specimen) 12/14/2012 5:49 AM EDT 12/14/2012 5:58 AM EDT Narrative Resulting Agency Comment Spec In Lab Luis E Trotter MD HEMATOLOGY ORDERABLE S CERNER MILLENNIUM * (ABNORMAL) Basic Metabolic Panel (non-fasting) (12/14/2012 5:49 AM EDT) [facility] Signature Glucose 113 60 - 199 mg/dL CERNER MILLENNIUM Comment:Diabetes: >=200 mg/d L plus symptoms Blood Urea Nitrogen 18 8 - 18 mg/dL CERNER MILLENNIUM Creatinine 1.74(H) 0.70 - 1.20 mg/dL CERNER MILLENNIUM Comment: Please note that the pediatric reference intervals supplied above were not validated at [facility]. Results from pediatric patients should be interpreted [...] 114(H) 98 - 107 mmol/L CERNER MILLENNIUM Carbon Dioxide 19(L) 22 - 31 mmol/L CERNER MILLENNIUM Anion Gap 5 5 - 15 mmol/L CERNER MILLENNIUM Calcium 7.8(L) 8.5 - 10.5 mg/dL CERNER MILLENNIUM Est Glomerular Filtration Rate 30(L) >=60 CERNER MILLENNIUM Comment: This estimated [...] CBC (with Diff) (12/14/2012 5:49 AM EDT) White Blood Cell 8.3 4.0 - 10.0 x10(3)/mc L CERNER MILLENNIUM Red Blood Cell 3.74(L) 3.93 - 5.22 x10(6)/mc L CERNER MILLENNIUM Hemoglobin 10.8(L) 11.2 - 15.7 gm/dL CERNER MILLENNIUM Hematocrit 31.8(L) 34.0 - 45.0 % CERNER MILLENNIUM Mean Cell Volume 85.0 79.0 - 94.0 fL CERNER MILLENNIUM Mean Cell Hemoglobin 28.9 26.6 - 32.2 pg CERNER MILLENNIUM Mean Cell Hemoglobin Concentration 34.0 32.0 - 36.5 gm/dL CERNER MILLENNIUM Platelet 44(L) 145 - 370 x10(3)/mc L CERNER MILLENNIUM RDW Standard Deviation 42.3 35.0 - 46.0 fL CERNER MILLENNIUM RDW coefficient of variation 13.7 10.9 - 14.4 % CERNER MILLENNIUM Mean Platelet Volume 11.3 9.0 - 12.0 fL CERNER MILLENNIUM Blood specimen (specimen) 12/14/2012 5:49 AM EDT 12/14/2012 5:58 AM EDT Narrative Resulting Agency Comment Spec In Lab Luis E Trotter MD HEMATOLOGY ORDERABLE S BAR ARCOSALEJOIUM * Peripheral Smear Review (12/14/2012 5:49 AM EDT) Peripheral Smear Review See Comment CERNER MILLENNIUM Comment: When completed by the Pathologist, report [id number] will display under Hematopathology Reports. Blood specimen (specimen) 12/14/2012 5:49 AM EDT 12/14/2012 5:58 AM EDT Narrative Resulting Agency Comment Spec In Lab Luis E Trotter MD HEMATOLOGY ORDERABLE S Performing Organization Address [facility] Co de Phone Number BAR PINEDAIUM * (ABNORMAL) Lactate Dehydrogenase (12/14/2012 2:16 AM EDT) Lactate Dehydrogenase 672(H) 110 - 220 unit/L CERELIO ARCOSENNIUM Blood specimen (specimen) 12/14/2012 2:16 AM EDT 12/14/2012 2:41 AM EDT Narrative Resulting Agency Comment Spec In Lab Luis E Trotter MD CHEMISTRY ORDERABLES Performing Organization Address [facility] Phone Number BAR ARCOSENNIUM * Proteinase-3 Antibody (12/13/2012 10:42 PM EDT) Proteinase 3 Antibody 3.7 <=20.0 unit(s) CERNER ISRRAELENNIUM Blood specimen (specimen) 12/13/2012 10:42 PM EDT 12/17/2012 8:07 AM EDT Narrative Resulting Agency Comment Spec In Lab Luis E Trotter MD IMMUNOLOGY ORDERABLE S Performing Organization Address [facility] de Phone Number BAR ARCOSENNIUM * Myeloperoxidase Ab (12/13/2012 10:42 PM EDT) Myeloperoxidase Antibody 3.1 <=20.0 unit(s) CERELIO ARCOSENNIUM Blood specimen (specimen) 12/13/2012 10:42 PM EDT 12/17/2012 8:07 AM EDT Narrative Resulting Agency Comment Spec In Lab Luis E Trotter MD IMMUNOLOGY ORDERABLE S Performing Organization Address City/[facility] Co de Phone Number CERELIO ARCOSENNIUM * Cytoplasmic Neutrophilic Ab (12/13/2012 10:42 PM EDT) Pathologist [facility] C-Anca (OCTOBER) Negative Negative [facility] Comment: Test Performed by: [place] [address] Drying Tumbler Operator: Tulio Luna III, M.D. P-Anca (OCTOBER) Negative Negative [facility] MILLFLORENCE COMM[facility]ALTHCAREIUM Comment: Negative for cANCA and pANCA patterns by immunofluorescence. Test Performed by: [place] [address] Drying Tumbler Operator: Tulio Luna III, M.D. Blood specimen (specimen) 12/13/2012 10:42 PM EDT 12/17/2012 8:14 AM EDT Narrative Resulting Agency Comment Spec In Lab Luis E Trotter MD LAB SEND OUT ORDERAB LES Performing Organization Address City/[facility]/ZIP Co de Phone Number [facility] * Thyroid Stimulating Immunoglobulin (12/13/2012 10:42 PM EDT) [facility] TSI-Gonzáles <1.0 <=1.3 TSI index [facility] Comment: Test Performed by: [place] [address] Drying Tumbler Operator: Tulio Luna III, M.D. Blood specimen (specimen) 12/13/2012 10:42 PM EDT 12/17/2012 8:14 AM EDT Narrative Resulting Agency Comment Spec In Lab Luis E Trotter MD IMMUNOLOGY ORDERABLE S Performing Organization Address [facility]/ZIP Co de Phone Number [facility] * C1 Esterase Inhibitor, Functional (12/13/2012 10:42 PM EDT) [facility] C1 Scarlett Inh Qnt (OCTOBER) >90 % normal [facility] Comment: -- REFERENCE VALUE -- >67 (Normal) 41-67 (Equivocal) <41 (Abnormal) Test Performed by: [place] [address] Drying Tumbler Operator: Tulio Luna III, M.D. Blood specimen (specimen) 12/13/2012 10:42 PM EDT 12/17/2012 8:25 AM EDT Narrative Resulting Agency Comment Spec In Lab Luis E Trotter MD LAB SEND OUT ORDERAB LES Performing Organization Address [facility] Co de Phone Number [facility] ISRRAELENNIUM * C4 Complement (12/13/2012 10:42 PM EDT) Complement C4 10 10 - 40 mg/dL CERNER MILLENNIUM Blood specimen (specimen) 12/13/2012 10:42 PM EDT 12/13/2012 10:54 PM EDT Narrative Resulting Agency Comment Spec In Lab Luis E Trotter MD CHEMISTRY ORDERABLES Performing Organization Address [facility] de Phone Number [facility] SpiceCSMENNIUM * (ABNORMAL) C3 Complement (12/13/2012 10:42 PM EDT) Complement C3 64(L) 90 - 180 mg/dL CERNER MILLENNIUM Blood specimen (specimen) 12/13/2012 10:42 PM EDT 12/13/2012 10:54 PM EDT Narrative Resulting Agency Comment Spec In Lab Luis E Trotter MD CHEMISTRY ORDERABLES Performing Organization Address [facility] de Phone Number CERNER SpiceCSMENNIUM * Haptoglobin (12/13/2012 10:42 PM EDT) Haptoglobin <10 30 - 200 mg/dL CERNER MILLENNIUM Comment: Haptoglobin concentrations in newborns is low to undetectable; however, adult concentrations are usually attained by 4 months of age. ??No sex-related differences for haptoglobin have been detected. Blood specimen (specimen) 12/13/2012 10:42 PM EDT 12/13/2012 10:48 PM EDT Narrative Resulting Agency Comment Spec In Lab Luis E Trotter MD CHEMISTRY ORDERABLES Performing Organization Address [facility] Co de Phone Number CERNER MILLENNIUM * XR abdomen acute series with PA chest (12/13/2012 10:20 PM EDT) Anatomical Region Laterality Modality Abdomen, Chest N/A Radiographic Oanh ging 12/13/2012 10:2 0 PM EDT Narrative 12/14/2012 10:08 AM EDT Examination ACUTE ABD SERIES WITH PA CHEST Clinical History abdominal pain r/o obstruction or free air Comparison 12/14/2019 [id number] hours. Technique Findings There is no interval [...] r/o obstruction or free air Comparison 12/14/2019 [id number] hours. Technique Findings There is no interval [...] Urinalysis with microscopic (12/13/2012 10:08 PM EDT) Glucose, Urine Dipstick Negative Negative mg/dL CERNER MILLENNIUM Protein, Urine Dipstick 100(A) Neg mg/dL CERNER MILLENNIUM Bilirubin, Urine Dipstick Negative Negative mg/dL CERNER MILLENNIUM Urobilinogen, Urine Dipstick Normal mg/dL CERNER MILLENNIUM pH, Urn (dipstick) 6.0 5.0 - 8.0 CERNER MILLENNIUM Blood, Urine Dipstick Moderate mg/dL CERNER MILLENNIUM Ketone, Urine Dipstick Negative mg/dL CERNER MILLENNIUM Nitrite, Urine Dipstick Negative CERNER MILLENNIUM Leukocytes, Urine Dipstick Trace(A) Neg CERNER MILLENNIUM Appearance, Urine Dipstick Clear Clear CERNER MILLENNIUM Specific [place] Urine Automated 1.014 1.002 - 1.030 CERNER MILLENNIUM Color, Urine Dipstick Yellow Yellow CERNER MILLENNIUM RBC, Urine <1 0 - 4 /HPF CERNER MILLENNIUM WBC, Urine 3 0 - 5 /HPF CERNER MILLENNIUM Hyaline Casts, Urine 18(H) 0 - 2 /LPF CERNER MILLENNIUM Granular Casts, Urine 11(H) <=0 /LPF CERNER MILLENNIUM Urine specimen [...] (ABNORMAL) Differential, Manual (12/13/2012 10:00 PM EDT) Segmented Neutrophils Manual 74(H) 34 - 71 % CERNER MILLENNIUM Band % 5 0 - 12 % CERNER MILLENNIUM Lymphocyte Manual 12(L) 19 - 53 % CERNER MILLENNIUM Monocyte Manual 6 4 - 13 % CERN ER MILLENNIUM Eosinophil Manual 3 0 - 7 % CERNER MILLENNIUM Segs Absolute Manual 6.5(H) 1.5 - 6.3 x10(3)/mc L CERNER MILLENNIUM Band Abs 0.4 0.2 - 0.6 x10(3)/mc L CERNER MILLENNIUM ANC 6.90(H) 1.50 - 6.30 x10(3)/mc L CERNER MILLENNIUM Lymph Absolute Manual 1.0 1.0 - 3.6 x10(3)/mc L CERNER MILLENNIUM Monocyte Absolute Manual 0.5 0.2 - 1.0 x10(3)/mc L CERNER MILLENNIUM Eos Absolute Manual 0.3 0.0 - 0.5 x10(3)/mc L CERNER MILLENNIUM Total Cells Ct 100 CERNE R MILLENNIUM Plat estimate Decreased CERNER MILLENNIUM RBC Morphology Normal CERNE R MILLENNIUM Blood specimen (specimen) 12/13/2012 10:00 PM EDT 12/13/2012 10:04 PM EDT Narrative Resulting Agency Comment Spec In Lab Luis E Trotter MD HEMATOLOGY ORDERABLE S CERNER MILLENNIUM * (ABNORMAL) Basic Metabolic Panel (non-fasting) (12/13/2012 10:00 PM EDT) [facility] Glucose 111 60 - 199 mg/dL CERNER MILLENNIUM Comment:Diabetes: >=200 mg/d L plus symptoms Blood Urea Nitrogen 14 8 - 18 mg/dL CERNER MILLENNIUM Creatinine 1.45(H) 0.70 - 1.20 mg/dL CERNER MILLENNIUM Comment: Please note that the pediatric reference intervals supplied above were not validated at [facility]. Results from pediatric patients should be interpreted [...] 113(H) 98 - 107 mmol/L CERNER MILLENNIUM Carbon Dioxide 18(L) 22 - 31 mmol/L CERNER MILLENNIUM Anion Gap 7 5 - 15 mmol/L CERNER MILLENNIUM Calcium 7.5(L) 8.5 - 10.5 mg/dL CERNER MILLENNIUM Est Glomerular Filtration Rate 38(L) >=60 CERNER MILLENNIUM Comment: This estimated [...] CERNER MILLENNIUM * (ABNORMAL) CBC (with Diff) (12/13/2012 10:00 PM EDT) White Blood Cell 8.7 4.0 - 10.0 x10(3)/mcL CERNER MILLENNIUM Red Blood Cell 4.02 3.93 - 5.22 x10(6)/mcL CERNER MILLENNIUM Hemoglobin 11.9 11.2 - 15.7 gm/dL CERNER MILLENNIUM Hematocrit 34.4 34.0 - 45.0 % CERNER MILLENNIUM Mean Cell Volume 85.6 79.0 - 94.0 fL CERNER MILLENNIUM Mean Cell Hemoglobin 29.6 26.6 - 32.2 pg CERNER MILLENNIUM Mean Cell Hemoglobin Concentration 34.6 32.0 - 36.5 gm/dL CERNER MILLENNIUM Platelet 46(L) 145 - 370 x10(3)/mcL CERNER MILLENNIUM RDW Standard Deviation 42.0 35.0 - 46.0 fL [facility] coefficient of variation 13.4 10.9 - 14.4 % [facility] Mean Platelet Volume 10.5 9.0 - 12.0 fL [facility] Blood specimen (specimen) 12/13/2012 10:00 PM EDT 12/13/2012 10:04 PM EDT Narrative Resulting Agency Comment Spec In Lab Luis E Trotter MD HEMATOLOGY ORDERABLE S [facility] * Lactate Dehydrogenase (12/13/2012 10:00 PM EDT) Lactate Dehydrogenase Not Perf 110 - 220 unit/L [facility] Comment: Unable to quantitate due to sample hemolysis. ??Sample redraw suggested. called to gianna bowens at 12/13/12 23:00 by lani Blood specimen (specimen) 12/13/2012 10:00 PM EDT 12/13/2012 10:04 PM EDT Narrative Resulting Agency Comment Spec In Lab Luis E Trotter MD CHEMISTRY ORDERABLES Performing Organization Address [facility] de Phone Number [facility] * Thrombin time (12/13/2012 10:00 PM EDT) Thrombin Time 19 15 - 20 sec [facility] Blood specimen (specimen) 12/13/2012 10:00 PM EDT 12/13/2012 10:04 PM EDT Narrative Resulting Agency Comment Spec In Lab Luis E Trotter MD HEMATOLOGY ORDERABLE S Performing Organization Address [facility] Co de Phone Number [facility] * Fibrinogen (12/13/2012 10:00 PM EDT) Fibrinogen 425 175 - 450 mg/dL [facility] Blood specimen (specimen) 12/13/2012 10:00 PM EDT 12/13/2012 10:04 PM EDT Narrative Resulting Agency Comment Spec In Lab Luis E Trotter MD HEMATOLOGY ORDERABLE S Performing Organization Address [facility] Co de Phone Number [facility] * APTT (12/13/2012 10:00 PM EDT) Partial Thromboplastin Time 27 25 - 35 sec CERNER MILLENNIUM Comment: Recommended therapeutic PTT range for full dose unfractionated heparin is 80-114 seconds. Blood specimen (specimen) 12/13/2012 10:00 PM EDT 12/13/2012 10:04 PM EDT Narrative Resulting Agency Comment Spec In Lab Luis E Trotter MD HEMATOLOGY ORDERABLE S Performing Organization Address [facility] Phone Number [facility] * (ABNORMAL) Prothrombin Time (12/13/2012 10:00 PM EDT) Prothrombin Time 16.5(H) 12.0 - 15.0 sec CERNER MILLENNIUM Comment: [facility] Transfusion Committee Guidelines: INR less than 2.0, PTT less than OR equal to 43.5 seconds, or Fibrinogen greater than or equal to 100 mg/dl indicate adequate procoagulant activity for hemostasis in patients without underlying bleeding disorders. International Normalization Ratio 1.3(H) 0.9 - 1.1 CERELIO MILLENNIUM Blood specimen (specimen) 12/13/2012 10:00 PM EDT 12/13/2012 10:04 PM EDT Narrative Resulting Agency Comment Spec In Lab Luis E Trotter MD HEMATOLOGY ORDERABLE S Performing Organization Address [facility] Co de Phone Number [facility] * (ABNORMAL) Hepatic Function Panel (12/13/2012 10:00 PM EDT) Protein, Total 4.6(L) 6.4 - 8.3 gm/dL CERNER MILLENNIUM Albumin 2.3(L) 3.2 - 5.2 gm/dL [facility]NI[facility] Aspartate Aminotransferase 30 0 - 30 unit/L [facility]ILL[facility]NI[facility] Alanine Aminotransferase 10 0 - 30 unit/L [facility]ERN[facility] MILLENNI[facility] Alkaline Phosphatase 29(L) 40 - 104 unit/L CERNER MILLENNIUM Bilirubin, Total 1.0 0.2 - 1.3 mg/dL CERNER MILLENNIUM Bilirubin, Direct 0.2 0.0 - 0.3 mg/dL CERNER MILLENNIUM Blood specimen (specimen) 12/13/2012 10:00 PM EDT 12/13/2012 10:04 PM EDT Narrative Resulting Agency Comment Spec In Lab Luis E Trotter MD CHEMISTRY ORDERABLES Performing Organization Address [facility] Co de Phone Number CERELIO PINEDAIUM * (ABNORMAL) Phosphorus (12/13/2012 10:00 PM EDT) Phosphorus 1.4(Critic al) 2.5 - 4.5 mg/dL CERNER MILLENNIUM Comment: Result rechecked. Called by: lani, Read back by: gianna bowens, Date/Time:12/13/12 23:00. Blood specimen (specimen) 12/13/2012 10:00 PM EDT 12/13/2012 10:04 PM EDT Narrative Resulting Agency Comment Spec In Lab Luis E Trotter MD CHEMISTRY ORDERABLES Performing Organization Address [facility] de Phone Number BAR NOE * (ABNORMAL) Magnesium (12/13/2012 10:00 PM EDT) Magnesium 0.55(L) 0.69 - 1.07 mmol/L CERNER MILLENNIUM Blood specimen (specimen) 12/13/2012 10:00 PM EDT 12/13/2012 10:04 PM EDT Narrative Resulting Agency Comment Spec In Lab Luis E Trotter MD CHEMISTRY ORDERABLES Performing Organization Address [facility] de Phone Number BAR NOE documented [...] INTRA-CATHETER, ONCE IN DIALYSIS, 1 dose, On 12/21/12 at 1915, Catheter lock per catheter specified [...] dose on Sun12/13/12 at 2130, Until Discontinued, [place] teeth, Routine Given 12/25/2012 9:44 AM EDT [...] PRN, Starting on 12/15/12 at 0432, Until Sun 13 at 1143, pharesis, Routine Given 12/15/2012 10:19 AM EDT 25 mg diphenhydrAMINE (BENADRYL) injection 25 mg 25 mg, Intravenous, ONCE, 1 dose, On Sun12/15/12 at 1145, STAT Given 12/15/2012 11:19 AM [...] PRN, Starting on Sun12/16/12 at 0000, Until Ninfa 12/19/12 at 1039, Prior to plasma exchange, Routine [...] 40 mg, Intravenous, DAILY, First dose on 12/14/12 at 0900, Until Discontinued, Routine Given 12/18/2012 [...] 40 mg, Intravenous, ONCE, 1 dose, On Sun12/17/12 at 1200 Given 12/17/2012 1:28 PM EDT [...] 40 mg, Intravenous, ONCE, 1 dose, On 12/21/12 at 0930 Given 12/21/2012 10:47 AM EDT 40 mg gadopentetate dimeglumine (MAGNEVIST) 10 mmol/20 mL (469.01 mg/mL) injection 15.16 mL 15.16 mL (0.2 mL/kg/dose ? 75.8 kg), Intravenous, ONCE PRN, 1 dose, Starting on 12/21/12 at 1705, Until Sun12/21/12 at 1709, Per [...] at 1451, Until Sun12/27/12 at 203, Pain, moderate pain, May give 2 mg [...] 4 mg, Oral, ONCE, 1 dose, On Sun12/14/12 at 1900, Routine Given 12/14/2012 6:44 PM [...] at 125 mL/hr, ONCE, 1 dose, On Sun12/21/12 at 2200, plz administer AFTER dialysis, Routine [...] dose on Sun12/13/12 at 2130, Until Discontinued, [place] teeth, Routine 0944 (Given - Provider: Alicia [...] Oral, 2 TIMES DAILY, First dose on 12/21/12 at 1000, Until Discontinued, Routine 0944 (Given - Provider: Alicia Rodriguez RN)2124 (Given - Provider: Faby Walton RN) 0957 (Given - Provider: Erika Tracy RN)2030 (Given - Provider: Alicia Rodriguez RN) 0900 (Given - Provider: Erika Tracy RN) multivitamin (THERAGRAN) tablet 1 tablet (CANCELED) 1 tablet, Oral, DAILY, First dose on 12/23/12 at 1700, Until Discontinued 0944 (Given - [...] level. Please check for lab orders, Routine 1853 (Given - Provider: Alicia Rodriguez RN) 1817 (Given - Provider: Erika Tracy RN) vancomycin [...] Oral, EVERY 4 HOURS PRN, Starting on 12/19/13 at 1230, Until Sun12/27/12 at 2035, Nausea, [...] lab orders, Routine And Vancomycin, trough (CANCELED) New collection, Timed, PRN, Starting on Sun12/24/12 at 1744, [...] on Sun12/13/12 at 2145, Until Sun12/27/12 at 2036, Nausea, Nausea/Vomiting, Routine documented in this encounter Care Teams Oral And Maxillofacial Surgery Resident Relationship Specialty Start Date End Date Bakari Costello APRN [facility] [address] [place] [id number] PCP - General 12/13/12 01/12/13 documented as of this encounter
--- OUTSIDE RECORDS SUMMARY | 2024-02-04 13:24 | XMS_ITS | Encounter Summary ---
Author Organization [facility] Address [facility] [place] [address] Care Team Providers Care Major Account Manager Name Role Phone Ofelia Costello APRN Primary Care Provider [phone] Encounter Details Date Type Department Care Team (Late st Contact Info) Description 12/26/2012 Orders [place] [address] Minor Kebede MD [facility] [place] [address] Graves disease (Primary Dx) Social History Tobacco [...] * (ABNORMAL) T4 (01/13/2013 12:10 PM EDT) T4 Total 4.9(L) 5.1 - 10.8 mcg/dL [facility] Comment: Reference Range: [place] Blood: ??6.9-14.4 mcg/dL Females: ??7.2-14.2 mcg/dL Pediatric ranges: ??Interpret with caution-ranges have not been verified Blood specimen (specimen) 01/13/2013 12:10 PM EDT 01/13/2013 12:15 PM EDT Narrative Resulting Agency Comment Spec In Lab Tyson Connolly MD CHEMISTRY ORDERABLES Performing Organization Address [facility] Co de Phone Number BAR PINEDAIUM * T Uptake (01/13/2013 12:10 PM EDT) T Uptake 1.16 0.80 - 1.30 ratio [facility] MILLENNIUM Comment: Tup assay is directly proportional to Thyroid binding protein concentration, thus FT4 Index = TT4/Tup. [place] Blood Reference Range: ??0.74-1.28. Blood specimen (specimen) 01/13/2013 12:10 PM EDT 01/13/2013 12:15 PM EDT Narrative Resulting Agency Comment Spec In Lab Tyson Connolly MD CHEMISTRY ORDERABLES Performing Organization Address [facility] Co de Phone Number BAR PINEDAIUM * (ABNORMAL) T3 (01/13/2013 12:10 PM EDT) Pathologist [facility] T3 Total 62(L) 75 - 170 ng/dL [facility] Blood specimen (specimen) 01/13/2013 12:10 PM EDT 01/13/2013 12:15 PM EDT Narrative Resulting Agency Comment Spec In Lab Tyson Connolly MD CHEMISTRY ORDERABLES Performing Organization Address [facility] Co de Phone Number BAR ARCOSENNIUM * T4, free (01/13/2013 12:10 PM EDT) Free T4 0.96 0.90 - 1.60 ng/dL [facility] Blood specimen (specimen) 01/13/2013 12:10 PM EDT 01/13/2013 12:15 PM EDT Narrative Resulting Agency Comment Spec In Lab Tyson Connolly MD CHEMISTRY ORDERABLES Performing Organization Address [place]/[facility]/ZIP Co de Phone Number BAR PINEDAIUM * TSH (01/13/2013 12:10 PM EDT) Thyroid Stimulating Hormone 0.63 0.27 - 4.20 mcIU/mL CERNER MILLENNIUM Blood specimen (specimen) 01/13/2013 12:10 PM EDT 01/13/2013 12:15 PM EDT Narrative Resulting Agency Comment Spec In Lab Tyson Connolly MD CHEMISTRY ORDERABLES Performing Organization Address [facility] Co de Phone Number BAR NOE documented in this encounter Visit Diagnoses Diagnosis Graves disease- Primary Toxic diffuse goiter without mention of thyrotoxic crisis or storm documented in this encounter Care Teams Major Account Manager Relationship Specialty Start Date End Date Ofelia Costello APRN [address] [address] PCP - General 12/13/12 01/12/13 documented as of this encounter
--- OUTSIDE RECORDS SUMMARY | 2024-02-04 13:25 | XMS_ITS | Continuity of Care Document ---
Author Organization [place] [facility] [place] [facility], [facility] Address [address] [place] [address] Assessment No assessment recorded. Plan of Treatment Reminders Order Date Submit Date Provider Last Modified By Organization Details Last Modified Time Details Appointments Nurse Visit 20 2023 09:00A M Not available Not available Not available Annual Wellness Exam 30 2023 10:00A M Not available Not available Not available Lab venipunct ure 2023 024 [email or web address] [facility] (Registration ), [address] [place] [address] Dr, [place], [address], 02/04/2024 09:49:48 Referral None recorded. Procedures None recorded. Surgeries None recorded. Imaging None recorded. Medication Orders None recorded. Patient TargetsNo targets recorded. 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 Hx of tonsil stones, please assess Referring Physician: Arielle Back, Family Medicine, Encounter Date: 07/18/2023 Results Created Date Observation Date Name Description Value Unit Range Abnormal Flag LastModifiedBy Organization Detail LastModifiedTime 02/04/2002/04/2024 speci men colle ction & handl ing* Specimen collection and handling performed today: Yes Not Available [facility] [address] [facility] [address], [place], [address], 02/04/2024 07:59:13 02/01/20 24 02/01/2024 mg mammo [place] bilat -M2 HISTOR Y: Elizabeth pham is 63 years old and is being seen for screen ing. The patien t has no person al histor y of cancer . The patien t has no family histor y of breast cancer . FILMS COMPAR ED: The presen t examin ation has been compar ed to prior imagin g studie s perfor med at [facility] on 2021 and 2022. MAMMOG SAW FINDIN GS: The follow ing mammog raphic views were obtain ed: bilate ral cranio caudal , bilate ral cranio caudal with tomosy nthesi s, bilate ral mediol ateral obliqu e, bilate ral mediol ateral obliqu e with tomosy nthesi s. There are scatte red areas of fibrog landul ar densit y. No suspic ious masses , calcif icatio ns or other abnorm alitie s are seen. IMPRES CYNTHIA: There is no mammog raphic eviden ce of malign citlali. Routin e follow -up mammog saw in 1 year is recomm ended. BI-RAD S CATEGO RY: 1 Negati ve This examin ation underw ent CAD evalua tion utiliz ing R2 Versio n 2.4.0. 12. Report Signed by: MONALISA FERRARA M.D. on 2023 15:10: 00 [email or web address], [place], [address], 02/01/2024 16:13:06 Result Notes None recorded. Problems Name Status [...] ICD-10; REBECCA VEE MD [address], [place], [address] , [facility] 4 12:08:36 Psychophysiol ogic insomnia Active 201202/25/2020 - Comments only - Rebecca Vee MD - Can continue as needed zolpidem Problem Code: F51.04; Problem Code Type: ICD-10; Not Available Counts include 234 beds at the [facility] 3 04:02:47 Low back pain Active 2014 Problem Code: M54.5; Problem Code Type: ICD-10; Not Available Counts include 234 beds at the [facility] 3 04:02:47 Palpitations Active 201401/11/2018 - Comments only - Rebecca Vee MD - Sound like benign PACs or PVCs. Minimally symptomatic. No testing needed. Problem Code: R00.2; Problem Code Type: ICD-10; Not Available Counts include 234 beds at the [facility] 3 04:02:47 Presbycusis Active 2014 Problem Code: H91.13; Problem Code Type: ICD-10; Not Available Counts include 234 beds at the [facility] 3 04:02:47 Thrombotic microangiopat hy Completed 201410/15/2023 02/19/2019 - Comments only - Rebecca Vee MD - We will continue to follow her renal function long-term because of this history. Problem Code: M31.1; Problem Code Type: ICD-10; REBECCA VEE MD [address], [place], [address] , [facility] 4 12:08:24 Thromboemboli sm of vein Completed 201410/15/2023 Problem Code: I82.90; Problem Code Type: ICD-10; MD [address], [place], [address] , [facility] 4 12:08:31 Cardiomyopath y Completed 201410/15/2023 [...] ICD-10; REBECCA VEE MD [address], [place], [address] , [facility] 4 12:07:55 Adult health examination Active 201403/13/2022 - Comments only - Rebecca Vee MD - Pap sent. She can only another month before getting her boosters. Problem Code: Z00.00; Problem Code Type: ICD-10; Not Available [facility] 3 04:02:48 Dysuria Completed 201506/15/2015 Problem Code: R30.0; Problem Code Type: ICD-10; Not Available [facility] 3 04:02:48 Urinary tract infectious disease Completed 201506/28/2015 Problem Code: N39.0; Problem Code Type: ICD-10; Not Available [facility] 3 04:02:48 Cervical radiculopathy Active 201602/19/2019 [...] M54.12; Problem Code Type: ICD-10; Not Available [facility] 3 04:02:48 Inflamed seborrheic keratosis Completed 201610/02/2017 04/05/2017 - Comments only - Cody Sahni PA-C - Irritated seborrheic keratosis. Treated with cryotherapy standard fashion 3 freeze thaw cycles. Recheck if this does not fall off. Sooner if needed. Problem Code: L82.0; Problem Code Type: ICD-10; Not Available [facility] 3 04:02:48 Abdominal colic Completed 201703/14/2023 Problem Code: R10.83; Problem Code Type: ICD-10; Not Available [facility] 4 05:35:48 Idiopathic osteoarthriti s Active 2018 Problem Code: M18.11; Problem Code Type: ICD-10; Not Available Counts include 234 beds at the [facility] 3 04:02:48 Lesion of right ulnar nerve Active 2018 Problem Code: G56.21; Problem Code Type: ICD-10; Not Available Counts include 234 beds at the [facility] 3 04:02:49 Acute frontal sinusitis Completed 201804/23/2019 04/02/2019 - Comments only - Rebecca Vee MD - Because of the duration I am going to treat her with high-dose amoxicillin for 1 week. Continue efforts at drainage. Problem Code: J01.10; Problem Code Type: ICD-10; Not Available Counts include 234 beds at the [facility] 3 04:02:49 Chest pain Completed 201806/28/2019 [...] R07.89; Problem Code Type: ICD-10; Not Available Counts include 234 beds at the [facility] 3 04:02:49 Trochanteric bursitis of left hip Completed 202010/15/2023 02/09/2021 - Comments only - Rebecca Vee MD - Suggested she try taking 1 Aleve every evening Problem Code: M70.62; Problem Code Type: ICD-10; REBECCA VEE MD [address], [place], [address] , [place] [facility]. 4 12:08:39 Pre-surgery evaluation Completed 202002/10/2021 02/09/2021 [...] Z01.818; Problem Code Type: ICD-10; Not Available [facility] 3 04:02:49 Bradycardia Active 202002/09/2021 - Comments only - Rebecca Vee MD - Twelve-lead EKG shows normal rate, normal conduction, no bundle-branch block. She cannot identify precipitants like stress or pain that would suggest increased vagal tone. And then get a 14-day CO because this is still, check Lyme serology, basic labs. Problem Code: R00.1; Problem Code Type: ICD-10; Not Available [facility] 3 04:02:49 Adult health examination Completed 202005/03/2021 Problem Code: Z00.00; Problem Code Type: ICD-10; Not Available Counts include 234 beds at the [facility] 3 04:02:50 Acute conjunctiviti s Completed 202110/15/2023 Problem Code: H10.30; Problem Code Type: ICD-10; MD [address], [place], [address] , [facility] 4 12:07:47 Squamous cell carcinoma of skin Completed 202110/15/2023 Problem Code: C44.92; Problem Code Type: ICD-10; MD [address], [place], [address] , [facility] 4 12:08:20 COVID-19 Completed 202110/15/2023 03/13/2022 - Comments only - Rebecca Vee MD - Reason: It was mild Problem Code: U07.1; Problem Code Type: ICD-10; MD [address], [place], [address] , [facility] 4 12:07:59 Peritonsillar abscess Completed 202102/23/2022 02/09/2022 - Comments only - Rebecca Vee MD - History and her age but she is pretty symptomatic in the adenitis is impressive. He we will treat with amoxicillin and gargles. Problem Code: J36; Problem Code Type: ICD-10; Not Available [facility] 3 04:02:50 Pain in throat Completed 202103/14/2023 Problem Code: R07.0; Problem Code Type: ICD-10; Not Available Counts include 234 beds at the [facility] 4 05:35:47 Nausea Completed 202211/24/2022 Problem Code: R11.0; Problem Code Type: ICD-10; Not Available [facility] 3 04:02:51 Noninfectious gastroenterit is Completed [...] because of the colitis symptoms. Not Available [facility] 3 04:02:51 Adjustment disorder Completed 201405/13/2015 Problem Code: F43.20; Problem Code Type: ICD-10; Not Available [facility] 3 04:02:54 Chronic kidney disease Completed 201412/07/2015 Problem Code: N18.9; Problem Code Type: ICD-10; Not Available [facility] 3 04:02:54 Chest pain Completed 201405/13/2015 Problem Code: R07.9; Problem Code Type: ICD-10; Not Available [facility] 3 04:02:54 Graves' disease Completed 201203/07/2023 Not Available [facility] 3 04:02:54 Fracture at wrist and/or hand level Completed 201205/13/2015 Not Available [facility] 3 04:02:55 Hemorrhoids Completed 201205/13/2015 Not Available Counts include 234 beds at the [facility] 3 04:02:55 Pleuritic pain Completed 201902/23/2020 Problem Code: R07.81; Problem Code Type: ICD-10; Not Available Counts include 234 beds at the [facility] 3 04:02:55 Acute sinusitis Completed 201405/19/2015 Problem Code: J01.90; Problem Code Type: ICD-10; Not Available Counts include 234 beds at the [facility] 3 04:02:55 Constipation Completed 201201/11/2018 Not Available Counts include 234 beds at the [facility] 3 04:02:56 Tear film insufficiency Completed 201405/13/2015 Problem Code: H04.129; Problem Code Type: ICD-10; Not Available Counts include 234 beds at the [facility] 3 04:02:56 Pruritus ani Completed 201205/13/2015 Problem Code: 698.0; Problem Code Type: ICD-9; Not Available Counts include 234 beds at the [facility] 3 04:02:56 Sinusitis Completed 201205/13/2015 Not Available Counts include 234 beds at the [facility] 3 04:02:56 Tinnitus Completed 201403/07/2023 Problem Code: H93.19; Problem Code Type: ICD-10; Not Available Counts include 234 beds at the [facility] 3 04:02:57 Basal cell carcinoma of skin [...] C44.91; Problem Code Type: ICD-10; Not Available Counts include 234 beds at the [facility] 3 04:02:57 Hyperthyroidi sm Completed 201205/13/2015 Not Available Counts include 234 beds at the [facility] 3 04:02:57 Shoulder joint pain Completed 201405/13/2015 Problem Code: M25.519; Problem Code Type: ICD-10; Not Available Counts include 234 beds at the [facility] 3 04:02:58 Motion sickness Completed 201405/13/2015 Problem Code: T75.3; Problem Code Type: ICD-10; Not Available Counts include 234 beds at the [facility] 3 04:02:58 Family history of Arthritis Completed 201205/13/2015 Problem Code: V17.7; Problem Code Type: ICD-9; Not Available Counts include 234 beds at the [facility] 3 04:02:58 Insomnia Completed 201203/07/2023 Not Available Counts include 234 beds at the [facility] 3 04:02:58 Hyperlipidemi a Completed 201205/13/2015 Problem Code: 272.4; Problem Code Type: ICD-9; Not Available Counts include 234 beds at the [facility] 3 04:02:58 Heart failure Completed 201403/07/2023 Problem Code: I50.9; Problem Code Type: ICD-10; Not Available Counts include 234 beds at the [facility] 3 04:03:00 Closed fracture of distal end of radius Completed 201205/13/2015 Problem Code: 813.42; Problem Code Type: ICD-9; Not Available Counts include 234 beds at the [facility] 3 04:03:00 Asthma Completed 200605/13/2015 Problem Code: 493.90; Problem Code Type: ICD-9; Not Available Counts include 234 beds at the [facility] 3 04:03:00 Hypoxia Completed 201405/13/2015 Problem Code: R09.01; Problem Code Type: ICD-10; Not Available Counts include 234 beds at the [facility] 3 04:03:00 Chronic salpingitis Completed 201405/13/2015 Problem Code: N70.11; Problem Code Type: ICD-10; Not Available Counts include 234 beds at the [facility] 3 04:03:00 Accident caused by needle Completed 201405/13/2015 Not Available Counts include 234 beds at the [facility] 3 04:03:01 Acute pharyngitis Completed 202204/10/2023 Problem Code: J02.9; Problem Code Type: ICD-10; Not Available Counts include 234 beds at the [facility] 4 05:35:44 Pneumonia Completed 202204/10/2023 04/02/2023 - Comments only - 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 Will check chest xray and proceed accordingly. Recommend finish all abx, push fluids and take it easy. RTC INI or feelng worse Problem Code: J18.9; Problem Code Type: ICD-10; Not Available Counts include 234 beds at the [facility] 4 05:35:45 Acute tonsillitis Completed 202310/15/[address], [facility] [address] , [facility] 4 12:07:40 Pain in right foot Active [address], [facility] [address] , [facility] 4 12:26:32 Adjustment disorder with anxious mood Active [address], [facility] [address] , [facility] 4 16:08:15 Diarrhea Active [address], [facility] [address] , [facility] 4 10:36:18 Preseptal cellulitis Active [address], [facility] [address] , [facility] 4 07:57:58 Menopausal symptom Active [address], [place], [address] , [facility] 4 11:52:09 Problem Notes None recorded. Medical Equipment None Reported. Allergies Allergen ID Allergen Name Allergen Category Reaction Reaction Severity Criticality Documentation Date Start Date Code Code System Note Provider Name and Address Organization Details Recorded Time 46830 doxycycli ne monohydra te medicatio n vomiting moderate Not available 04/20/20232016 56443 2 RxNorm GI Issue s (N/V) Aller gyRea ction : 'GI Issue s (N/V) '; Not Available Counts include 234 beds at the [facility] 3 16:22:22 [address]342 erythromy ibeth medicatio n vomiting moderate Not available 04/20/20232012 4053 RxNorm GI Issue s (N/V) Aller gyRea ction : 'GI Issue s (N/V) '; Aller gyCod e: '[id number] 64'; Aller gyNam e: 'ERYT HROMY IBETH'; Aller gyCon ceptT ype: 'NDC' ; Not Available Counts include 234 beds at the [facility] 3 16:22:22 Medications Name Sig Start [...] completed Not Available Not Available Not Available Augmentin 875 mg-125 mg tablet Take 1 tab by mouth twice daily. 2023 active Not Available Not Available Not Avai lable Colace 100 mg capsule 3 capsules a [...] Not Available atorvasta tin 20 mg tablet TAKE ONE TABLET BY MOUTH EVERY DAY active Not Available Not Available No t Available Toprol XL 100 mg tablet,ex tended release [...] oral route as directed . 2023 active only taking this as needed Not Available Not Available Not Available Nexium 20 mg capsule,d elayed release Take [...] TABLET BY MOUTH AT BEDTIME NEEDED active taking 1/2 tablet of zolpidem 10mg Not Available Not Available Not Available fluticaso ne propionat e 50 mcg/actua [...] Not Available Not Available Not Avai lable Bactrim DS 800 mg-160 mg tablet Take [...] completed Not Available Not Available Not Available Veozah 45 mg tablet active Not Available Not Available No t Available Vitals None Recorded Social History None [...] Stomach CA Mother Family history of ac [place] medical disorder GERD Mother Family history of malignant neoplasm of skin GERD Brother Family history of he art failure Notes:*Problem: FAMILY HX: F ather is stomach cancer, CAD. She had a brother who at 44 from CAD/HI. Medical History No medical history recorded. Gynecological HistoryNo gynecological history recorded. Obstetrics History GPAL:G 0 P 0 0 0 0 Immunizations Vaccine Type Date Status Provider Name and Address Organization Details Recorded Time Tdap 10/03/2019 completed Not Available [facility] 05:19:55 Tdap 03/10/2009 completed Not Available [facility] 05:19:55 zoster live 05/10/2015 completed Not Available [facility] 04/20/2023 05:19:56 Influenza, split virus, quadrivalent, PF 03/13/2022 completed Not Available Counts include 234 beds at the [facility] 04/20/2023 05:19:56 Influenza, split virus, quadrivalent, PF 03/17/2020 completed Not Available Counts include 234 beds at the [facility] 04/20/2023 05:19:56 Influenza, split virus, quadrivalent, PF 03/24/2021 completed Not Available Counts include 234 beds at the [facility] 04/20/2023 05:19:56 zoster recombinant 11/20/[address] [facility] 04/20/2023 05:19:57 zoster recombinant 03/29/[address] [facility] 04/20/2023 05:19:57 COVID-19, mRNA, LNP-S, PF, 100 mcg/0.5mL dose or 50 mcg/0.25mL dose 07/05/2020 completed Not Available Counts include 234 beds at the [facility] 04/20/20 05:19:58 COVID-19, mRNA, LNP-S, PF, 100 mcg/0.5mL dose or 50 mcg/0.25mL dose 04/11/2021 completed Not Available Counts include 234 beds at the [facility] 04/20/20 05:19:58 COVID-19, mRNA, LNP-S, PF, 100 mcg/0.5mL dose or 50 mcg/0.25mL dose 06/08/2020 completed Not Available Counts include 234 beds at the [facility] 04/20/20 05:19:58 SARS-COV-2 (COVID-19) vaccine, UNSPECIFIED 04/21/2022 completed Not Available Counts include 234 beds at the [facility] 04/20/2023 05:19:59 Hep B, unspecified formulation 09/07/2009 completed Not Available Counts include 234 beds at the [facility] 04/20/2023 05:19:59 Hep B, unspecified formulation 03/10/2009 completed Not Available Counts include 234 beds at the [facility] 04/20/2023 05:20:00 Hep B, unspecified formulation 04/12/2009 completed Not Available Counts include 234 beds at the [facility] 04/20/2023 05:20:00 Hep A, adult 10/03/2019 completed Not Available Counts include 234 beds at the [facility] 04/20/2023 05:20:00 influenza, unspecified formulation 03/09/2014 completed Not Available Counts include 234 beds at the [facility] 04/20/2023 05:20:00 influenza, unspecified formulation 03/24/2019 completed Not Available Counts include 234 beds at the [facility] 04/20/2023 05:20:00 influenza, unspecified formulation 03/28/2017 completed Not Available [facility] 04/20/2023 05:20:00 influenza, unspecified formulation 04/19/2018 completed Not Available [facility] 04/20/2023 05:20:00 influenza, unspecified formulation 05/02/2016 completed Not Available [facility] 04/20/2023 05:20:00 Influenza, high-dose, quadrivalent, PF 04/23/2023 completed Not Available [facility] 06/22/2023 05:31:13 Past Encounters Encounter ID Performer Location Encounter Start Date Encounter Closed Date Diagnosis/Indication Diagnosis SNOMED-CT Code [id number] KEVYN THACKER [address] [address] 02/04/2024 07:54:37 02/04/2024 09:56:21 Menopausal symptom [id number] Health Concerns Section Related Observation LastModified by Organization Detai ls LastModified Time None Recorded Concern Status LastModified by Organization Details LastModified Time None Recorded Payers Encounter Date Sequence Insurance Name Policy Number Policy Roman Covered Member ID Roman Member ID Guarantor Name 02/04/2024 1 [id number]IC[place]/ [place]ANTAGE - PPO) [id number] Anum Henriquez [id number] Anum Henriquez OBGyn Episode No OBEpisode recorded.
--- OUTSIDE RECORDS SUMMARY | 2024-02-04 13:25 | XMS_ITS | Encounter Summary ---
Author Organization Formerly [facility], [facility] Address [facility] [place] [address] Care Team Providers Care Supervisor Reactor Fueling Name Role Phone Bakari Costello APRN Primary Care Provider [phone] Encounter Details Date Type Department Care Team (Late st Contact Info) Description 12/18/2012 1:30 PM EDT - 12/18/2012 2:00 PM EDT [place] [address] Beck Paiz MD [facility] [place] [address] EGD, UPPER GI ENDOSCOPY (WRVU 2.09) Social [...] 12/30/2012 12:45PM, Provider: Dr. Rob Mejia, Location: [place] [address], Your Inpatient Doctor(s) at [facility]: Attendings: Dr. Cristina, Dr. Ohara, Dr. Bliss Fellow: Dr. Gomez Residents: Dr. Guzmán, Dr. Aleman Documentation Billing Clerk: Dr. Kimball * Attachments The following attachments cannot be sent through Care Everywhere. * PERIPHERALLY INSERTED CENTRAL CATHETER (PICC): AFTER YOUR VISIT (URUGUAYAN) documented in this encounter Medications at Time [...] it-Vit C-Mn 500-400 mg Cap 12/03/2009 01/13/2013 [place]-3 Fatty Acids-Vitamin E (OMEGA-3 FISH OIL) 1,000-5 mg-unit Cap 12/03/2009 01/06/20 13 documented as of this encounter Progress Notes * Carmen Strickland - 12/27/2012 6:30 PM EDT Window Draper Encounter Note Patient Name: Anum Henriquez : [id number] MR#: [id number] Admit Date: 12/13/2012 7:56 PM Hospital Day 14 days Narrative: Follow up visit with patient prior to her discharge. Patient's present at the time of visit. Assessment: Patient expressed with excitement that she was going home today. She related the challenges of her hospitalization but was grateful to the members of the [facility] medical staff for their services. Intervention and [...] Velazco MD - 12/27/2012 5:39 PM EDT [facility] NEPHROLOGY INPATIENT FOLLOW UP PATIENT: Anum Henriquez : 1960 ROOM: [address] [place] [address] ID: 52 y.o. female admitted for microangiopathic [...] daily until 12/20. (received 7 treatment total). [id number] is normal and infectious work-up is negative so because of gadolinium exposure and mental status improved after hd. DELVIS- Cr stable. Non oliguric. Stable chemistries No indications for SENIOR APPLICATION SOFTWARE ENGINEER. Pt is getting discharged today. Plan to check labs in 1 week at [facility] and she has an appointment in nephrology [...] Office of Care Management (OCM) / Clinical Gis Consultant (CRC) Continuing Care Note Care reviewed with hematology/blood and marrow transplant team and at interdisciplinary discharge rounds. . Situation: Discharge planned for today on home on IV abx therapy. Today is Day 8 Vancomycin IV for MRSA bacteremia. Arrangements made with [employer] for delivery of supplies to hospital room before discharge to home. [facility] is the [facility] that will go to the home tomorrow for first hang around 3 pm. Lovenox is ready for fern picker at their local pharmacy, No PA needed. Single lumen PICC placed. Procedure note sent to both [place] and [facility]. Background: PMH of Graves on methimazole, [...] 4. Follows up with Dr. Bliss in [facility] on 01/01. 5. First visit by VNA to be on tomorrow at approx 3 Pm. Future Appointments Date Time Provider Department Center 01/01/2013 12:35 PM Fabi Bliss MD [facility] HEM[facility]ONC [facility] 01/13/2013 3:30 PM Brian Velazco MD [facility] 01/14/2013 10:05 AM Minor Kebede MD [facility] 01/14/2013 10:30 AM Clovis Varner MD [facility] M. Dez Bishop RN Clinical Gis Consultant Office of Care Management Pager [phone] * Leticia Hardy, PT - 12/27/2012 3:45 [...] later today. ~Leticia Antonio. Hayley, PT Pager [phone]. * Tyson Patel MD - 12/27/2012 1:10 [...] outpatient. Recommendations: - Vancomycin 750 mg IV [id number] x3 weeks total since line removal (12/24 [...] minutes Total timed interventions: 15 minutes Pager: [phone] KAREN CATHERINE PT Physical Therapy Rehabilitation Department * Brian Velazco MD - 12/26/2012 3:12 PM EDT [facility] NEPHROLOGY INPATIENT FOLLOW UP PATIENT: Anum Henriquez : 1960 ROOM: [address] [place] [address] ID: 52 y.o. female admitted for microangiopathic [...] daily until 12/20. (received 7 treatment total). [id number] is normal and infectious work-up is negative so because of gadolinium exposure and mental status improved after hd. DELVIS- Cr stable off dialysis. Good urine output. No signs of uremia. Stable chemistries. Mild fluid overload. No indications for SENIOR APPLICATION SOFTWARE ENGINEER. Will continue to follow cr and [...] PM EDT Office of Care Management Clinical Gis Consultant Home IV Antibiotic Therapy Referral Note. Report received from Dr. Frausto that patient will require continued home IV antibiotic therapy after discharge from the hospital. Met with patient/family to discuss vendor and visiting nurse choices for home IV antibiotic therapy. Reviewed Home Infusion Vendors and Home Health Agencies that serve patient???s address and accept patient???s insurance. Home Health Agency: Patient requested referral to [facility] PHONE: [phone] FAX: [phone] Referrals sent via edischarge. Home Infusion Vendor: Patient requested referral to [place], [place] or Referrals sent via edischarge. Diabetic Status: Patient is not a diabetic. IV access: Type of line: PICC single lumen pendng Date placed: pending Gorge Bishop RN Clinical Gis Consultant Hematology/Blood and Marrow Transplant Office of Care Management Pager [phone] * Clovis Varner MD - 12/26/2012 11:42 [...] Rebecca Kumar - 12/26/2012 11:18 AM EDT Window Draper Encounter Note Patient Name: Anum Henriquez : [id number] MR#: [id number] Admit Date: 12/13/2012 7:56 PM Hospital Day 13 days Narrative: Visited on rounds. Patient was excited about possibility of discharge. She plans to attend [facility] at Noon today. Assessment: Patiebnt [...] AAOx3, No double vision this AM, EOMI, Cnlexb-gb-busb improved, no past- pointing; rapid alternating movement and sntj-wg-sxxj intact. Patellar and biceps tendon reflexes are [...] + delirium. Possible diagnosis include ?Lupus cerebritis, CLASSIFICATION AND TREATMENT DIRECTOR vasculitis, all d/t TTP-HUS? Delirogenic meds d/c'd. [...] KIMBALL MD, PGY-1 12/26/2012 Team A Pager #[phone] . I have independently interviewed and examined [...] nausea, and bloody diarrhea. Upon transfer to [facility], she was found to have microangiopathic hemolytic [...] Recommendations: ?? Continue Vancomycin 1 gram IV [id number] ?? Vancomycin trough prior to 4th dose, [...] Velazco MD - 12/25/2012 3:16 PM EDT [facility] NEPHROLOGY INPATIENT FOLLOW UP PATIENT: Anum Henriquez : 1960 ROOM: [address] [place] [address] ID: 52 y.o. female admitted for microangiopathic [...] daily until 12/20. (received 7 treatment total). [id number] is normal and infectious work-up is negative so because of gadolinium exposure and mental status improved after hd. DELVIS- urine output of 3.5 L which might be an early sign of renal recovery. Cr continues to rise butwill have to follow daily cr to monitor for renal recovery. No signs of uremia today. No acute needfor SENIOR APPLICATION SOFTWARE ENGINEER today. Will need to assess daily [...] good spirits after a visit from the [facility]. She reports her appetite is fair, eating about 50% with a goal of 100%. Discussed how this is a goal to work towards, but sheis doing well in her efforts. She denied any nutrition requests, questions, or additional snacks atthis time. Continue to monitor. P: Continue current diet. [place] food choices as able. Work towards increasing [...] AAOx3, No double vision this AM, EOMI, Wsdsja-lk-jeyn improved, no past- pointing; rapid alternating movement and fsek-dn-mzar intact. Patellar and biceps tendon reflexes are [...] + delirium. Possible diagnosis include ?Lupus cerebritis, CLASSIFICATION AND TREATMENT DIRECTOR vasculitis, all d/t TTP-HUS? Delirogenic meds d/c'd. [...] KIMBALL MD, PGY-1 12/25/2012 Team A Pager #[phone] . I have independently interviewed and examined [...] Encounter Note Patient Name: Anum Henriquez : [id number] MR#: [id number] Admit Date: 12/13/2012 7:56 PM Hospital Day 11 days Narrative: Visited patient as part of continuing care. I has seen her earlier in the day at [facility]. Assessment: Patient was lucid and in very good spirits. Intervention and Outcome: The encounter provided spiritual and emotional support. Follow-up: Visit before [facility]. Time in Direct Care: 10 minutes Rebecca Kumar 12/24/2012 * Brian Velazco MD - 12/24/2012 4:54 PM EDT [facility] NEPHROLOGY INPATIENT FOLLOW UP PATIENT: Anum Henriquez : 1960 ROOM: [address] [place] [address] ID: 52 y.o. female admitted for microangiopathic [...] daily until 12/20. (received 7 treatment total). [id number] is normal and infectious work-up is negative [...] Plasma exchange x7, which was stopped 12/20. [id number] negative. 2-3 days ago, patient developed acute [...] nausea, and bloody diarrhea. Upon transfer to [facility], she was found to have microangiopathic hemolytic [...] line. ID evaluated pt this AM (Dr Poasda) - appreciate their input Continue folate and [...] minutes Total timed interventions: 25 minutes Pager: [phone] BETSY FORMAN PT Physical Therapy Rehabilitation Department [...] AAOx3, No double vision this AM, EOMI, Mhrfzq-ss-mpef improved, no past- pointing; rapid alternating movement and hjnx-wi-eyal intact. Patellar and biceps tendon reflexes are [...] + delirium. Possible diagnosis include ?Lupus cerebritis, CLASSIFICATION AND TREATMENT DIRECTOR vasculitis, all d/t TTP-HUS? Delirogenic meds d/c'd. [...] KIMBALL MD, PGY-1 12/24/2012 Team A Pager #[phone] * Brian Velazco MD - 12/23/2012 5:41 PM EDT [facility] NEPHROLOGY INPATIENT FOLLOW UP PATIENT: Anum Henriquez : 1960 ROOM: [address] [place] [address] ID: 52 y.o. female admitted for microangiopathic [...] daily until 12/20. (received 7 treatment total). [id number] is normal and infectious work-up is negative [...] follow up tomorrow. Gianna Hdz, MICHELLE Pager [phone] * Ankit Ohara MD - 12/23/2012 9:38 [...] AAOx3, No double vision this AM, EOMI, Ajpqef-ou-whiz improved, no past- pointing; rapid alternating movement and cukk-qa-pdzk intact. Patellar and biceps tendon reflexes are [...] + delirium. Possible diagnosis include ?Lupus cerebritis, CLASSIFICATION AND TREATMENT DIRECTOR vasculitis, all d/t TTP-HUS? Delirogenic meds d/c'd. [...] KIMBALL MD, PGY-1 12/23/2012 Team A Pager #[phone] * [place] fer[place] - 12/22/2012 6:06 PM EDT Window Draper Encounter Note Patient Name: Anum Henriquez : [id number] MR#: [id number] Admit Date: 12/13/2012 7:56 PM Hospital Day 9 days Narrative: Visited at patient request. Window Draper services offered and accepted. Prayer offered and accepted. Patient was made aware of Mass times, and availability of communion from [employer] ministers. Assessment: Patient was lucid, pleasant and eager to converse. Intervention and Outcome: The encounter provided significant spiritual support. Follow-up: Will refer to [employer] chaplains and also visit Sunday. Time in [...] Velazco MD - 12/22/2012 9:06 AM EDT [facility] NEPHROLOGY INPATIENT FOLLOW UP PATIENT: Anum Henriquez : 1960 ROOM: [address] [place] [address] ID: 52 y.o. female admitted for microangiopathic [...] total). LDH trending down and HGB/PLT improving. [id number] normal and infectious work-up is negative so [...] Crum. Salvador Renner MD Nephrology Fellow Pager# [phone] Renal Staff: This patient is seen and [...] Oriented to person, thinks she is at [facility], thinks month is November, oriented to year and president, off on day of week by 1 day. supervisor reactor fueling intact. EOMI but disconjugate gaze when looking forward, with L eye deviating medially. Double vision. No meningismus. Unable to cooperate in strength and sensation exam. Trembling diffusely, more exaggerated versus yesterday. Worsened dysmetria with uoklih-ua-wlbq. Myoclonic jerks, clonus bl ankles, hyperrflexia diffusely. [...] + delirium. Possible diagnosis include ?Lupus cerebritis, CLASSIFICATION AND TREATMENT DIRECTOR vasculitis, all d/t TTP-HUS? Delirogenic meds d/c'd. [...] KIMBALL MD, PGY-1 12/22/2012 Team A Pager #[phone] * Arturo Moreno MD - 12/22/2012 1:22 AM EDT Neurology Progress Note Patient Name: Anum Henriquez Admit Date: 12/13/2012 Attending: Patient ID: Anum Henriquez is a 52 y.o. female with PMH of Graves disease initially admitted in transfer from [facility] with hemorrhagic colitis and thrombocytopenia on [...] ??? aspirin 81 mg EC tablet ??? Xfeswgdsaou-Yciyeyzha-Tsn C-Mn 500-400 mg Cap ??? [place]-3 Fatty Acids-Vitamin E (OMEGA-3 FISH OIL) 1,000-5 [...] questions Raad Aleman, PGY-2 Neurology Personal Pager [phone] Addendum:I saw and evaluated the patient with [...] Oriented to person, thinks she is at [facility], thinks month is November, oriented to year and president, off on day of week by 1 day. supervisor reactor fueling intact. EOMI but disconjugate gaze when looking forward, with L eye deviating medially. Double vision. No meningismus. Unable to cooperate in strength and sensation exam. Trembling diffusely, more exaggerated versus yesterday. Worsened dysmetria with uijfxy-bs-pfdt. Myoclonic jerks, clonus bl ankles, hyperrflexia diffusely. [...] all toxic-metabolic encephalopathy + delirium. ?Lupus cerebritis, CLASSIFICATION AND TREATMENT DIRECTOR vasculitis, all d/t TTP-HUS? Delirogenic meds d/c'd. [...] ALEMAN MD, PGY-1 12/21/2012 Team A Pager #[phone] Fellow Addendum I have seen and examined [...] systemic fibrosis. Ming Gomez MD Fellow, Hematology/Oncology [facility] Pager #[phone] Staff 12/21/12 8pm Pt remains intermittently confused [...] Velazco MD - 12/21/2012 8:57 AM EDT [facility] NEPHROLOGY INPATIENT FOLLOW UP PATIENT: Anum Henriquez : 1960 ROOM: [address] [place] [address] ID: 52 y.o. female admitted for microangiopathic [...] total). LDH trending down and HGB/PLT improving. HEETUV84 is normal and infectious work-up is negative [...] Crum. Salvador Renner MD Nephrology Fellow Pager# [phone] Renal Staff: This patient is seen and [...] year old female admitted in transfer from [facility] for hemorrhagic colitis and thrombocytopenia on [...] on CXR. Implicated Component Information: Unit Number(s): [id number], [id number], [id number], [id number], [id number] Unit ABO Type(s): AB Volume Transfused: All [...] ml Laboratory Investigation: Not performed Reaction Assessment: CDC/[facility] Biovigilance Reaction Classification: Transfusion-associated circulatory overload [...] TRALI is unlikely, we have contacted the [place] to determine the HLA status of donor [...] donors except for one unit of plasma [id number] which as donated by female who was HLA negative. This excludes the possibility of antibody mediated TRALI. Marie Wade, 12/21/2012 * Jimmy Tuttle OTA - 12/20/2012 4:04 PM EDT Occupational Therapy Encounter Spoke with RN who advised that the patient was not appropriate for therapy today, will follow up onSunday. GREGORY Nelson Pager #[phone] * Amanda Odonnell PT - 12/20/2012 1:48 PM EDT Spoke with OT who reports that pt not medically appropriate for PT today. [employer] reportedly inwith pt. Will plan to follow-up on Sunday. Amanda Odonnell PT Pager #[phone] * Ankit Ohara MD - 12/20/2012 9:34 [...] She rec'd 1 u RBCs to date [id number] was normal Exam significant for mild dysmtria, [...] MRI was normal. Confusing clinical picture, since [id number] was normal. We will give 1 u [...] Trotter MD - 12/20/2012 8:57 AM EDT [facility] NEPHROLOGY INPATIENT FOLLOW UP PATIENT: Anum Henriquez : 1960 ROOM: [address] [place] [address] ID: 52 y.o. female admitted for microangiopathic [...] Sergo Gomes MD Nephrology Fellow Pager # [phone] Renal Attending: The patient was examined together [...] methimazole for >10 years) who presented to [facility] 6 days ago with watery/bloody diarrhea [...] returning positive (12/13/12). She was transferred to [facility] on 12/13/12 after daily labs revealed a drop in platelets from 151 to 66, increase of Cr from 0.8 to 1.2, and elevated LDH at 1187 (all per OSH). [facility] labs confirmed thrombocytopenia at 46 (currently 44), increasing Creatinine (1.4 at [facility] admission, currently 1.74) LDH of 672, dropping hemoglobin (Per OSH, 14 at initial admit, 11.9 at [facility] admit, currently 10.8), and low haptoglobin (<10). [...] 2/3 albumin, 1/3 plasma today given normal VXIEYT91 activity. Plasma given for coag factor purposes (Fibrinogen <200). - Will plan to hold treatment tomorrow and observe. If patient and/or labs (plts, LDH, etc) worsen on Sunday then we can resume TPE treatment. - F/u Plts, Hgb, LDH, Ca, coags - GI w/u per GI team. Jay Toscano MD Fellow, Hematology/Oncology Pager #: [phone] ATTENDING MD ATTESTATION: The apheresis procedure was [...] PCP: BAKARI COSTELLO APRN PCP phone number: [phone] Date of Admission: 12/13/2012 ( Hospital Day 7 days ) Service: Hem/Onc Team B - Pager [phone] Responsible Attending:Ankit Ohara MD ID: Anum Henriquez [...] skin feels tense Neuro: A&Ox3, dysmetria with fdmkci-qq-ruep, motor 5/5 upper and lower ext. Antimicrobials: [...] PHOS -- 4.9* 4.8* 4.4 Recent Labs [facility] 12/20/12 0450 12/19/12 0320 12/18/12 0425 12/16/12 [...] KIMBALL MD, PGY-1 12/20/2012 Team A Pager #[phone] * Cody Posada MD - 12/19/2012 6:16 PM EDT ID CONSULT PROGRESS NOTE Patient was not seen and examined today, but chart was reviewed. She remains hemodynamically stable and afebrile. WBC count within a normal range. HIV was negative.Stool culture at [facility] has been finalized as negative. Her clinical [...] methimazole for >10 years) who presented to [facility] 6 days ago with watery/bloody diarrhea [...] returning positive (12/13/12). She was transferred to [facility] on 12/13/12 after daily labs revealed a drop in platelets from 151 to 66, increase of Cr from 0.8 to 1.2, and elevated LDH at 1187 (all per OSH). [facility] labs confirmed thrombocytopenia at 46 (currently 44), increasing Creatinine (1.4 at [facility] admission, currently 1.74) LDH of 672, dropping hemoglobin (Per OSH, 14 at initial admit, 11.9 at [facility] admit, currently 10.8), and low haptoglobin (<10). [...] 2/3 albumin, 1/3 plasma today given normal PXOFQD62 activity. - Will plan to treat again [...] to this. Now that we know her VNMNHG32 is normal, she no longer requires the [...] She rec'd 1 u RBCs to date YZICONK26 was normal at admission Based on my [...] Trotter MD - 12/19/2012 7:50 AM EDT [facility] NEPHROLOGY INPATIENT FOLLOW UP PATIENT: Anum Henriquez : 1960 ROOM: [address] [place] [address] ID: 52 y.o. 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 Subjective: Feels lousy as she could not sleep well, abdominal pain better, only had 2 somewhat formed BM's yesterday. Anthony SOB and had hypoxia in afternoon but [...] cultures negative for Campylobacter and Shiga toxin HQUBED93 normal level IMPRESSION/ RECOMMENDATIONS: 52 yo female with microangiopathic hemolytic anemia/thrombocytopenia and non oliguric acute kidney injury having plasma exchange daily , currently without any laboratory of clinical indication of renal replacement therapy. [id number] normal Today is day 5 of plasma exchange LDH still elevated, platelets still <150 noted but improving, creatinine seems to be stable for 3 days now. If no improvement is noted we may consider biopsy. KIANA, and cultures (shiga/campylobacter) noted to be negative Renal dose of medications Avoid nephrotoxins Seen and Discussed with Dr. Sergo Gomes MD Nephrology Fellow Pager # [phone] Renal Attending: The patient was examined together [...] colonoscopy Raad Bolaños MD PhD Gastroenterology Fellow ([id number]) * Rehana John T - 12/19/2012 5:52 AM EDT Inpatient Hematology/Oncology/SCT Progress Note Patient info: Name: Anum Henriquez : 1960 PCP: BAKARI COSTELLO APRN PCP phone number: [phone] Date of Admission: 12/13/2012 ( Hospital Day 6 days ) Service: Hem/Onc Team B - Pager [phone] Responsible Attending:Ankit Ohara MD ID: Anum Henriquez [...] KIMBALL MD, PGY-1 12/19/2012 Team A Pager #[phone] * Jose Kaur, DRU - 12/18/2012 6:00 [...] 15 minutes for functional there ex Pager: [phone] GIANNA HDZ OT Occupational Therapy Rehabilitation Department * Betsy Forman, PT - 12/18/2012 11:54 AM EDT Physical Therapy Treatment Note Visit #: 07/21 Patient profile: Pt. is a 52 y.o. female admitted on 12/13/2012 by Fabi Grimm MD w/ [facility] of [facility] on methimazole, transferred from Medicine with clinical [...] minutes Total timed interventions: 15 minutes Pager: [phone] BETSY FORMAN PT Physical Therapy Rehabilitation Department [...] Trotter MD - 12/18/2012 8:51 AM EDT [facility] NEPHROLOGY INPATIENT FOLLOW UP PATIENT: Anum Henriquez : 1960 ROOM: [address] [place] [address] ID: 52 y.o. female admitted for microangiopathic [...] of clinical indication of renal replacement therapy. [id number], expected to be back today Stool cultures pending, LDH still elevated, platelets still <150 noted but improving, creatinine seems to be stable for 2 days now and may represent that in the next couple of days it will start to decrease, if this is not the case and ZEXTCD47 is negative will consider renal biopsy ANCA's, hepatitis C noted to be within normal limits. Renal dose of medications Avoid nephrotoxins Seen and Discussed with Dr. Sergo Gomes MD Nephrology Fellow Pager # [phone] Renal Attending: The patient was examined together [...] methimazole for >10 years) who presented to [facility] 6 days ago with watery/bloody diarrhea [...] returning positive (12/13/12). She was transferred to [facility] on 12/13/12 after daily labs revealed a drop in platelets from 151 to 66, increase of Cr from 0.8 to 1.2, and elevated LDH at 1187 (all per OSH). [facility] labs confirmed thrombocytopenia at 46 (currently 44), increasing Creatinine (1.4 at [facility] admission, currently 1.74) LDH of 672, dropping hemoglobin (Per OSH, 14 at initial admit, 11.9 at [facility] admit, currently 10.8), and low haptoglobin (<10). [...] PCP: BAKARI COSTELLO APRN PCP phone number: [phone] Date of Admission: 12/13/2012 ( Hospital Day 5 days ) Service: Hem/Onc Team B - Pager [phone] Responsible Attending:Ankit Ohara MD ID: Anum Henriquez [...] KIMBALL MD, PGY-1 12/18/2012 Team A Pager #[phone] * Luis E Trotter MD - 12/17/2012 5:34 PM EDT [facility] NEPHROLOGY INPATIENT FOLLOW UP PATIENT: Anum Henriquez : 1960 ROOM: [address] [place] [address]-A ID: 52 y.o. female admitted for diarrhea, [...] of clinical indication of renal replacement therapy. HILVOQ54 and stool cultures pending LDH still elevated, [...] methimazole for >10 years) who presented to [facility] 6 days ago with watery/bloody diarrhea [...] returning positive (12/13/12). She was transferred to [facility] on 12/13/12 after daily labs revealed a drop in platelets from 151 to 66, increase of Cr from 0.8 to 1.2, and elevated LDH at 1187 (all per OSH). [facility] labs confirmed thrombocytopenia at 46 (currently 44), increasing Creatinine (1.4 at [facility] admission, currently 1.74) LDH of 672, dropping hemoglobin (Per OSH, 14 at initial admit, 11.9 at [facility] admit, currently 10.8), and low haptoglobin (<10). [...] evening did not get sent out to [place] until yesterday evening. Results will not likely [...] PCP: BAKARI COSTELLO APRN PCP phone number: [phone] Date of Admission: 12/13/2012 ( Hospital Day 4 days ) Service: Hem/Onc Team B - Pager [phone] Responsible Attending:Fabi Bliss MD ID: Anum Henriquez [...] KIMBALL MD, PGY-1 12/17/2012 Team A Pager #[phone]+++++++++++++++++++++++++++++++++++++++++++++++++++++++++++++++ Attending Addendum: I personally saw, examined [...] is negative. 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 [id number] pending - should be back today. 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 ID - shigatoxin, stool culture and campylobacter pending. HIV negative. Will consult GI for any other ideas on the bloody diarrhea - does not seem like typical CDiff. * Luis E Trotter MD - 12/16/2012 12:45 PM EDT [facility] NEPHROLOGY INPATIENT FOLLOW UP PATIENT: Anum Henriquez : 1960 ROOM: [address] [place] [address] ID: 52 y.o. female admitted for acute [...] of clinical indication of renal replacement therapy. [id number], ANCAs and stool cultures pending LDH still [...] Sergo Gomes MD Nephrology Fellow Pager # [phone] Renal Attending: The patient was examined together [...] Office of Care Management (OCM) / Clinical Gis Consultant (CRC) Initial Assessment Care reviewed with hematology/blood [...] ??? aspirin 81 mg EC tablet ??? Srndvarauqr-Qppipjmox-Xxf C-Mn 500-400 mg Cap ??? [place]-3 Fatty Acids-Vitamin E (OMEGA-3 FISH OIL) 1,000-5 mg-unit Cap ??? CALCIUM ORAL Allergies Allergen Reactions ??? Erythromycin Base Subjective: States she feels a little confused today. Complains of a headache. F Previous functional status: Patient was independent with mobility/ambulation, transfers, ADL's, IADL's. 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 Current functional status: Is ambulating independently in room> [x} No Rehab referral: [x} Yes Home set up: Single story home with no steps to enter. Family and social supports: with grown son and daughter that live locally. Has lived in [facility] all of her life. Mother and father are in a half-way close by. Many friends and well connected in the community. Extended Emergency Contact Information Primary Emergency Contact: Liu Henriquez Relation: Durable Power of Account Development Associate for Healthcare Secondary Emergency Contact: Liu Roberts Relation: Sibling Father: Venita Vora Advance directives: None on file. States she has a copy at home. Code status: Full Code Insurance: Commercial CBA Blue Financial Issues: [x} No Referral to financial services: [x} No Preferred Pharmacy: [address] outpatient pharmacy. DME: No Home Health Agency: [x} No IV Access: Double lumen pheresis catheter and PICC Home Infusion: No ASSISTANT PROFESSOR IN FAMILY STUDIES Referral: Rebecca Tinoco ASSISTANT PROFESSOR IN FAMILY STUDIES Referral indicated: [x} No Primary Care Physician: BAKARI COSTELLO APRN [phone] Primary [facility] Warehouse Order Picker: Admitted on Dr. Bliss's service. Referring Warehouse Order Picker: N/A Potential discharge needs: Undetermined Anticipated barriers to discharge: Undetermined Transportation at discharge: Spouse or family member. Plan: CRC will continue to monitor progress, follow for continuity of care and assist with discharge planning. No future appointments. Gorge Bishop RN Clinical Gis Consultant Office of Care Management Pager [phone] * Jaleel Reynoso MD - 12/16/2012 9:06 [...] methimazole for >10 years) who presented to [facility] 6 days ago with watery/bloody diarrhea [...] returning positive (12/13/12). She was transferred to [facility] on 12/13/12 after daily labs revealed a drop in platelets from 151 to 66, increase of Cr from 0.8 to 1.2, and elevated LDH at 1187 (all per OSH). [facility] labs confirmed thrombocytopenia at 46 (currently 44), increasing Creatinine (1.4 at [facility] admission, currently 1.74) LDH of 672, dropping hemoglobin (Per OSH, 14 at initial admit, 11.9 at [facility] admit, currently 10.8), and low haptoglobin (<10). [...] be considered. We will continue to await [id number] results, the results of which will factor [...] PCP: BAKARI COSTELLO APRN PCP phone number: [phone] Date of Admission: 12/13/2012 ( Hospital Day 3 days ) Service: Hem/Onc Team B - Pager [phone] Responsible Attending:Fabi Bliss MD ID: Anum Henriquez [...] KIMBALL MD, PGY-1 12/16/2012 Team B Pager #[phone] ++++++++++++++++++++++++++++++++++++++++++++++++++++++++++++++++ Attending Addendum: I personally saw, examined [...] PCP: BAKARI COSTELLO APRN PCP phone number: [phone] Date of Admission: 12/13/2012 ( Hospital Day 2 days ) Service: Hem/Onc Team B - Pager [phone] Responsible Attending:Fabi Bliss MD ID: Anum Henriquez [...] ALEMAN MD, PGY-1 12/15/2012 Team B Pager #[phone] ++++++++++++++++++++++++++++++++++++++++++++++++++++++++++++++++ Attending Addendum: I personally saw, examined [...] (third stool sample ) At outside hosp. [id number] is pending. * Jaleel Reynoso MD - [...] methimazole for >10 years) who presented to [facility] 6 days ago with watery/bloody diarrhea [...] returning positive (12/13/12). She was transferred to [facility] on 12/13/12 after daily labs revealed a drop in platelets from 151 to 66, increase of Cr from 0.8 to 1.2, and elevated LDH at 1187 (all per OSH). [facility] labs confirmed thrombocytopenia at 46 (currently 44), increasing Creatinine (1.4 at [facility] admission, currently 1.74) LDH of 672, dropping hemoglobin (Per OSH, 14 at initial admit, 11.9 at [facility] admit, currently 10.8), and low haptoglobin (<10). [...] 80 mL. Vital signs: Pre (0930 hrs): ML=823/83; P=95; R=18; T=36.2 Post (1158 hrs): LN=669/80; P=82; R=18; T=36.5 Complications noted (if any): [...] be considered. We will continue to await [id number] results, the results of which will factor [...] methimazole for >10 years) who presented to [facility] 6 days ago with watery/bloody diarrhea [...] returning positive (12/13/12). She was transferred to [facility] on 12/13/12 after daily labs revealed a drop in platelets from 151 to 66, increase of Cr from 0.8 to 1.2, and elevated LDH at 1187 (all per OSH). [facility] labs confirmed thrombocytopenia at 46 (currently 44), increasing Creatinine (1.4 at [facility] admission, currently 1.74) LDH of 672, dropping hemoglobin (Per OSH, 14 at initial admit, 11.9 at [facility] admit, currently 10.8), and low haptoglobin (<10). [...] 66 mL. Vital signs: Pre (1945 hrs): PX=868/87; P=93; R=18; T=98.3 Post (2200 hrs): FQ=834/90; P=87; R=18; T=99.3 Complications noted (if any): [...] may be considered. We will also await [id number] results, which will highly factor into our [...] APRN, Pt ID:52 y.o. Female presents to [facility] with abdominal pain and bloody diarrhea with [...] exchange transfusion this afternoon. MELBA BASS MD [facility] 4300 * Cristobal Reid RN - 12/14/2012 5:30 PM EDT [facility] NURSING DATABASE Name: ANUM HENRIQUEZ Date of : 1960 AGE 52 y.o. Address: [address] [place] [address] [address] [facility] [address] (home) Mobile: No relevant phone numbers on [...] MD aspirin 81 mg EC tablet 12/03/09 Kryelwajxvp-Fzmparzjm-Ngh C-Mn 500-400 mg Cap 12/03/09 [place]-3 Fatty Acids-Vitamin E (OMEGA-3 FISH OIL) 1,000-5 mg-unit Cap 12/03/09 CALCIUM ORAL 12/03/09 For outpatient procedures: This patient has been informed that they require a otr flatbed company truck driver to drive them home after this procedure. In the absence of a otr flatbed company truck driver, IR will not be able [...] ??? aspirin 81 mg EC tablet ??? Orhlkmnibkb-Ibjanavui-Tkp C-Mn 500-400 mg Cap ??? [place]-3 Fatty Acids-Vitamin E (OMEGA-3 FISH OIL) 1,000-5 [...] go to interventional radiology and then to hermdw room. 1654-Patient being transported now. Notified the doctor and his nurse on . * Gianna Bowens RN - 12/14/2012 1:36 AM EDT Nursing Progress Note 12/13/[id number] Shift Events: 1999 - [facility] A/O with stable VS on R/A. [...] Resolved ID: 52 y.o. Female presents to [facility] with abdominal pain and bloody diarrhea History of Present Illness: HPI Mrs. Henriquez is a 52F w/ h/o hyperthyroidism, who presents with a several day history of abdominalpain and bloody diarrhea. History obtained by patient and from OSH records. Pt originally presentedto [facility] ED on 12/10 after experiencing severe [...] of note, pt has been on fentanyl TECHNICAL SUPPORT ASSOCIATE since Sunday. Pt was transferred to [facility] for further management. Pt afebrile and hemodynamically [...] ??? aspirin 81 mg EC tablet ??? Degppuxvlgv-Ofiaybjtu-Hvq C-Mn 500-400 mg Cap ??? [place]-3 Fatty Acids-Vitamin E (OMEGA-3 FISH OIL) 1,000-5 mg-unit Cap ??? CALCIUM ORAL Allergies: Allergies Allergen Reactions ??? Erythromycin Base ??? Milk CIS - Localized Reaction ??? 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 No tinkling bowel sounds on exam, no rebound or guarding, as well, nausea is under control. I am wary about placing an NGT given her thrombocytopenia - will hold off for now and monitor closely. Rest of plan outlined below: # Admit to Medicine - Blue Team, pager [phone] # Hemorrhagic colitis, abdominal pain: - will [...] 12/28/2012 9:39 AM EDTAssociated Order(s): SCAN DOC: BLAST FURNACE TENDER * Provider, Scanning - 12/28/2012 9:38 AM [...] to the planned procedure. Hand Hygiene: The asian art curator did perform hand hygiene prior to line insertion. Catheter type: PICC Lot number: [id number] Procedure Technique: Skin was prepped with chlorhexidine. [...] to the planned procedure. Hand Hygiene: The asian art curator did perform hand hygiene prior to line insertion. Catheter type: PICC Lot number: [id number] Procedure Technique: Skin was prepped with chlorhexidine. [...] 5 OR OLDER VIR PROCEDURE NOTE ACC#: [id number] PROCEDURE: Non-tunneled right internal jugular triple lumen [...] (PICC) Teaching Sheet Peripherally inserted central catheters (fpla-xy-vcjs) (PICC) are used when you need IV [...] midline catheter? PICC lines are used for termite treater helper treatments. PICC lines may be used for [...] can be set up via the nurse Community Engagement Manager to help you. What are possible complications [...] Patient described as pulsating, mostly in R voodoo but neck aching as well. 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 She has been alert and oriented [...] Graves disease initially admitted in transfer from [facility] with hemorrhagic colitis and thrombocytopenia on [...] ANUM HENRIQUEZ Ordered By: ANKIT OHARA MR#: [id number] LOC: 1WST /Sex: 1960 (52 years), Female [...] UA Negative Appearance UA Clear Clear Spec [place] UA 1.007 1.002 - 1.030 Color UA Light Yellow Yellow RBC UA 8 (*) 0 - 4 /HPF WBC UA 6 (*) 0 - 5 /HPF Gran Cast UA 2 (*) <=0 /LPF PRO-BRAIN NATRIURETIC PEPTIDE Component Value Range ProBNP 2411 (*) <=125 pg/mL URINE CULTURE Component Value Range Urine Culture Value: Patient Name: ANUM HENRIQUEZ Ordered By: ANKIT OHARA MR#: [id number] LOC: 1WS /Sex: 1960 (52 years), Female PROCEDURE: Urine Culture SOURCE: U ICath COLLECTED: 12/20/2012 16:49 STARTED: 12/20/2012 17:07 PRELIMINARY REPORT Preliminary Report Verified:12/21/2012 12:39 Greater than 100,000 cfu/ml Staphylococcus aureus BLOOD CULTURE Component Value Range Blood Culture Value: Patient Name: ANUM HENRIQUEZ Ordered By: ANKIT OHARA MR#: [id number] LOC: /Sex: 1960 (52 years), Female PROCEDURE: [...] Aleman MD PGY-2 Neurology Resident Personal Pager [phone] Consult Pager [phone] Addendum: I saw and evaluated the patient [...] - Patient discussed with the attending Dr. oCnnolly, official recommendations to follow Minor Kebede MD [...] on methimazole for 10+ years. HPI: Ms. Anmu Henriquez is a 52yo female with PMH of hyperthyroidism on methimazole who presentedto [facility] with several days of abdominal pain and diarrhea that progressed from watery to bloody. 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 She was transferred to [facility] on 12/13 after 3 days at OSH (day 6 of illness) Labs on admission to [facility] were notable for WBC = 13, HgB 14.5, Plts 151 w/ fecal leukocytes in the stool and negative Cdiff studies. A drop in platelets (151 to 66) and bump in her creatinine prompted transfer to [facility] with concern for evolving TTP-HUS. Throughout her [...] bloody just before she sought care at [facility]. After a few days at [facility], and just prior to transfer to [facility], she feels her diarrhea had improved somewhat and were becoming less bloody withmore substance. Over the past 24h, she has had 3 small brown soft bowel movements. She endorses some lingering abdominal pain but reports this is improved from the blayne of her illness at [facility]. She is most troubled now by [...] the concerns over Cdiff as the possible otr flatbed company truck driver. From a GI perspective, endoscopy, [...] anemia Raad Bolaños MD PhD Gastroenterology Fellow ([id number]) GI Staff Patient seen and examined this [...] anxiety and comfortable MRI experience. Close cousin (SPECIAL DIET COOK) roomed in overnight and was very helpful [...] 0 minutes BETSY FORMAN PT 12/17/2012 Pager: [phone] Physical Therapy Rehabilitation Department * Initial Assessments [...] Social History: Patient lives with her in [facility]. Home Setup: house is two story, enters [...] PT. Pt' first cousin, who is an GIS CONSULTANT, present. Cognitive Status/Behavior: alert, oriented to person, [...] minutes Total timed interventions: 0 minutes Pager: [phone] GIANNA HDZ OT 12/17/2012 Occupational Therapy Rehabilitation [...] Nephrology appt. arranged. Vancomycin 750 mg IV H12siqru for 3 weeks total since line removal [...] and from OSH records. Pt originally presentedto [facility] ED on 12/10 after experiencing severe [...] of note, pt has been on fentanyl TECHNICAL SUPPORT ASSOCIATE since Sunday. Pt was transferred to [facility] for further management. Pt afebrile and hemodynamically [...] acutely agitated, was mumbling in coherently in frisian and emirati and exam revealed acute exaggeration of upper [...] donors except for one unit of plasma [id number] which as donated b y female who [...] (L) C4 Complement 10 4 (L) 17 AJCKY Ab See below Haptoglobin <10 75 70 JACKY Ab (Ab to Extractable Nuclear Ag): SS-A/Ro Ab, Ig.0 (H) (ref <1.0) SS-B/La Ab, Ig.5 (H) (ref <1.0) Sm Ab, IgG: <0.2 (neg) CRT Ab, IgG: <0.2 (neg) Scl 70 Ab, [...] fluid. Consistent with colitis, infectious or inflammatory. [facility] read of above film: Marked thickening of [...] with provider. Continued medications, unchanged Dose Details Eptrxudvrwt-Hacnxohvn-Ytx C-Mn 500-400 mg Cap [place]-3 Fatty Acids-Vitamin E (OMEGA-3 FISH OIL) 1,000-5 [...] 12/30/2012 12:45PM, Provider: Dr. Rob Mejia, Location: [place] [address], Your Inpatient Doctor(s) at [facility]: Attendings: Dr. Cristina, Dr. Ohara, Dr. Bliss Fellow: Dr. Gomez Residents: Dr. Guzmán, Dr. Aleman Documentation Billing Clerk: Dr. Kimball General Instructions Other Provider Recommendations [...] INSERTED CENTRAL CATHETER (PICC): AFTER YOUR VISIT (URUGUAYAN) Appointment with Primary Care Provider: 12/30/2012 12:45PM, Provider: Dr. Rob Mejia, Location: [address] [address], Your To Do List Future Appointments: Provider: Department: Dept Phone: Center: 01/01/2013 12:35 PM Fabi Bliss MD Hematology/Oncology [phone] [facility] 01/13/2013 3:30 PM Brian Velazco MD Nephrology [phone] [facility] 01/14/2013 10:05 AM Minor Kebede MD Endocrinology [phone] [facility] 01/14/2013 10:30 AM Clovis Varner MD Endocrinology [phone] [facility] Future Orders Please Complete By Expires OPAT: Order / Recommendation for Post Discharge IV Antibiotic Management [DNW802 CPT(R)] Process Instructions: If no progress note charted, please enter Clinical details in comments. Scheduling Instructions: Comments: Please Fax all results to: OPAT Program Infectious Disease Section [facility], [place] [address] FAX: Line care instructions per [facility] OPAT Program protocol. After hours, please contact the Infectious Disease Physician propulsion generator repairer at . If this order was signed greater than 72 hours prior to [facility] discharge, please call to confirm the accuracy [...] Diagnosis: Bacteremia; HUS Referral for Outpatient Antibiotics [PRE6822 CPT(R)] Process Instructions: Scheduling Instructions: Comments: Questions: Responses: Patient location post discharge Home Start date 12/28/2012 Responsible MD post discharge contact info Out Patient Antibiotic Team Vendor / contact information [place] Service requested IV abx Referral to Home Health [HNR3416 CPT(R)] Process Instructions: Scheduling Instructions: Comments: DOCUMENTATION FOR VNA SERVICES (INCLUDING THOSE PATIENTS WITH MEDICARE COVERAGE REQUIRING HOME VNA SERVICES AND/OR HOSPICE SERVICES) This is preliminary information related to the patient's needs and confirmation of Face to Face Encounter. The denoted information will require completion and an electronic signature by the physicianupon finalization of these orders. PATIENT'S LOCATION: Address: [address] [place] [address] [address] [facility] [address] Tel. #: [phone] (home) Food Photographer's Name: In discussion with the attending physician, it is certified that this patient is under their care and that they, or a nurse practitioner, clinical nurse specialist or physician's legislative assistant who is working directly with them, [...] free T4, [facility] Attn: Jinny Please send Sunday CMP to Renal [facility], Attn: Dr. Velazco Please send INR to Attn: Dr. Rob Mejia, Responsible Attending: Tyson Patel MD Last documented weight (kg): 68.9 kg (151 lb 14.4 oz) Last documented height (cm): 170.2 cm (5' 7) Please Fax all results to: OPAT Program Infectious Disease Section [facility], [place] [address] FAX: START OF CARE DATE: 12/28/12 All VNA agencies which cover the area of patient's residence have been reviewed, either verbally tanvir writing, and patient/family have chosen the home health care agency as follows for home services: HOME HEALTH CARE AGENCY: [facility] PHONE: [phone] FAX: [phone] VENDOR: [facility] IS SUPPORT ANALYST [facility] Address [address] [place] [address] Equipment ordered: IV antibiotic and line supplies. Ordering Provider: Dr. John Kimball Ordering Provider Phone #: [phone] [place] [address] Questions: Responses: Agency name and contact information [...] Contact Information: BAKARI COSTELLO APRN [address] [place] [address] Signed: FLYNN FRAUSTO MD Discharged: 12/27/2012 * [...] to improve so [facility] and admitted to the medicine service. Of note, C. Diff on 12/13 returned positive despite 2 prior negative tests. At [facility] patient was initially continued on Cipro and Flagyl. She was noted to have decreasing plts and worsening renal function. 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 She was transferred to the hematology service. IR placed a cath for plasma exchange on 12/14, [id number] was sent, and patient was started on plasma exchange 12/14. Nephrology was also consulted and recommended checking ANCA and complement levels, as well. Cipro was stopped on 12/16 for concern of contributing to TTP/HUS, but Flagyl was continued due to positive C. diff at the OSH. CT scan was re-read at [facility] and was read as showing findings concerning for pseudomembranous colitis. C. diff at [facility] was negative. ID was consulted for further [...] nausea, and bloody diarrhea. Upon transfer to [facility], she was found to havemicroangiopathic hemolytic anemia [...] is sent, please call the microbiology lab ([id number]) so they will not cancel the stool [...] >1000). She was t ransferred to the [facility] on 12/13. A peripheral smear showed schistocytes, [...] well as propylthiouracil) has been linked with MKO-ZOPC-pxqmueoouy vasculitis on multiple occassions (Nojovani CrumY, Yashay [...] pt. Verbalizes understanding. Peripherally inserted central catheters (pbrh-is-hqnl) (PICC) are used when you need IV [...] midline catheter? PICC lines are used for termite treater helper treatments. PICC lines may be used for [...] can be set up via the nurse Community Engagement Manager to help you. What are possible complications [...] Efficacy, Safety, Use, and Administration of [employer], [email or web address] 2005 * Plan of Care - [...] methimazole for >10 years) who presented to [facility] 6 days ago with watery/bloody diarrhea [...] returning positive (12/13/12). She was transferred to [facility] on 12/13/12 after daily labs revealed a drop in platelets from 151 to 66, increase of Cr from 0.8 to 1.2, and elevated LDH at 1187 (all per OSH). [facility] labs confirmed thrombocytopenia at 46 (currently 44), increasing Creatinine (1.4 at [facility] admission, currently 1.74) LDH of 672, dropping hemoglobin (Per OSH, 14 at initial admit, 11.9 at [facility] admit, currently 10.8), and low haptoglobin (<10). [...] to <10% by both removing autoantibodies against [id number] and replacing deficient levels. As the etiology [...] is recommended to administer TPE while awaiting UXFAYD64 results so as not to miss an opportunity to effectively treat the otherwise often-fatal TTP. 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 Once these criteria are met, a taper regimen may be considered. We will also await EANGSJ02 results, which will highly factor into our [...] on the optimal way to interpret the [id number] findings, when they are back. A very low [id number] level (<5%), (especially when combined with the presence of an inhibitor (i.e. antibody)) is highly specific for TTP and the diagnosis is essentially confirmed if this result is returned. However, the test is only about 2/3 sensitive....that is, a negative result (normal levels of LAZBSK90) does not rule out TTP, since as many as 30% of TTP patients do not have loss of ZHRYSD31; this presumably involves modulation of another component of the pathway that involves cleaving LMW VWR multimers but these other components are not as well defined, and there is no clinically useful test for these, currently. Also, using DDSAGL54 level itself to assess treatment efficacy is not recommended, since some patients recover clinically after a course of plasmapheresis, but never recover their XNSDBA91 levels. This phenomenon supports the model that that TTP is likely a two-hit disease. Loss of JDSXPC26 is not sufficient to bring on clinical disease but some other stressor is needed. It can be speculated that Anum's recent GI symptoms may constitute that second stressor. Also noteworthy is that those patients that recover clinically yet continue to have low MDAKCJ31 levels appear to be more likely to [...] or problematic foods. She was admitted to [facility] on 12/10/12 where they gave her [...] 0.8 prior. Therefore, she was transferred to [facility] yesterday for further management. Hospital medicine calls [...] for 10+ years. 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 Lives at home with her . They speak Jordanian as their primary language and I believe they are [place]ian-[place], although she was born here in . [...] ??? aspirin 81 mg EC tablet ??? Ieyjgytcafv-Nkavdajye-Tgn C-Mn 500-400 mg Cap ??? [place]-3 Fatty Acids-Vitamin E (OMEGA-3 FISH OIL) 1,000-5 [...] arms, face, or legs Labs: Labs at [facility]: 12/10/12: WBC count of 13.1 w/ [...] ADAMTS 13 activity and removing autoantibodies against OTBUNG46,etc. Therefore, we will check an ADAMTS 13 [...] Med. 2005October 12;354(18):1927-35. Review. 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 No acute indication for SENIOR APPLICATION SOFTWARE ENGINEER. Renal dose meds. Avoid nephrotoxins. Seen and Discussed w/ Dr. Sergo greene Pager -[phone] Renal Attending: The patient was examined together [...] Comments LAB SCAN 01/29/2013 11:49 AM EDT BLAST FURNACE TENDER SCAN 12/28/2012 9:39 AM EDT LAB SCAN [...] 3:42 AM EDT DIFFERENTIAL, AUTOMATED Routine 12/27/19 13 3:42 AM EDT CBC (WITH DIFF) Routine [...] 12/20/2012 12:20 PM EDT TYPE AND SCREEN ([facility]) Routine 12/20/2012 12:20 PM EDT H. PYLORI [...] 12/17/2012 4:00 AM EDT STOOL CULTURE SCREEN ([facility]) Routine 12/17/2012 3:32 AM EDT CAMPYLOBACTER ANTIGEN Routine 12/17/2012 3:32 AM EDT CRYPTOSPORIDIUM OOCYST ANTIGEN ([facility]/APD) Routine 12/17/2012 3:32 AM EDT SHIGA TOXIN ASSAY Routine 12/17/2012 3:3 2 AM EDT GIARDIA/CRYPTOSPORIDIUM ANTIGENS ([facility]/APD/[facility]) Routine 12/17/2012 3:32 AM EDT GIARDIA ANTIGEN ([facility]D/[facility]) Routine 12/17/2012 3:32 AM EDT STOOL CULTURE Routine 12/17/2012 3:32 AM EDT MRI BRAIN WO CONTRAST Routine 12/16/2012 9:02 PM EDT HIV SCREEN, 4TH GENERATION ([facility]D/[facility]) Routine 12/16/2012 6:[address] PICC [...] ACCESS NON-DIALYSIS Routine 12/14/2012 6:05 PM EDT [id number] ACTIVITY STAT 12/14/2012 2:0 2 PM EDT CYTOPLASMIC NEUTROPHILIC AB Routine 12/14/2012 12:03 PM EDT PROTEINASE-3 ANTIBODY Routine 12/14/2012 12:03 PM EDT MYELOPEROXIDASE AB Routine 12/14/2012 12 :03 PM EDT ABO/RH TYPING STAT 12/14/2012 9:47 AM EDT RETICULOCYTE COUNT STAT 12/14/2012 9: 47 AM EDT ANTIBODY SCREEN STAT 12/14/2012 9:47 AM EDT TYPE AND SCREEN ([facility]ENNIFER) STAT 12/14/2012 9:47 AM EDT DIRECT ANTIGLOBULIN TEST STAT 12/14/2012 9:47 AM EDT PATHOLOGY SLIDE REVIEW Routine 3 5:49 AM EDT PATHOLOGY SLIDE REVIEW Routine 3 5:49 AM EDT SCAN, PERIPHERAL BLOOD Routine 3 5:49 AM EDT DIFFERENTIAL, AUTOMATED Routine 12/15/19 5:49 AM EDT CBC (WITH DIFF) Routine [...] SCAN EXT O RDR/RSLT * SCAN DOC: BLAST FURNACE TENDER (12/28/2012 9:39 AM EDT) Anatomical Region Laterality [...] * Vancomycin, trough (12/27/2012 2:30 PM EDT) Vancomycin, Trough 22.5 mg/L C FLAKITO NOE Comment: Therapeutic range for complicated infections [...] Lab Haris Jarvis MD CHEMISTRY ORDERABLES [facility] * Place PICC Line: Contact Vascular Access Page [phone] (12/27/2012 12:12 PM EDT) Narrative Edvin Brian [...] to the planned procedure. Hand Hygiene: The asian art curator did perform hand hygiene prior to line insertion. Catheter type: PICC Lot number: [id number] Procedure Technique: Skin was prepped with chlorhexidine. [...] to the planned procedure. Hand Hygiene: The asian art curator did perform hand hygiene prior to line insertion. Catheter type: PICC Lot number: [id number] Procedure Technique: Skin was prepped with chlorhexidine. [...] MD HEMATOLOGY ORDERABLE S Performing Organization Address [facility] Phone Number [facility] * Prothrombin Time (12/27/2012 3:57 AM EDT) Prothrombin Time 14.0 12.0 - 15.0 sec [facility] Comment: [facility] Transfusion Committee Guidelines: INR less than 2.0, PTT less than OR equal to 43.5 seconds, or Fibrinogen greater than or equal to 100 mg/dl indicate adequate procoagulant activity for hemostasis in patients without underlying bleeding disorders. International Normalization Ratio 1.0 0.9 - 1.[address] [facility] Blood specimen (specimen) 12/27/2012 3:57 AM EDT 12/27/2012 4:03 AM EDT Narrative Resulting Agency Comment Spec In Lab Haris Jarvis MD HEMATOLOGY ORDERABLE S Performing Organization Address [facility] Phone Number [facility] * Phosphorus (12/27/2012 3:57 AM EDT) Phosphorus 4.4 2.5 - 4.5 mg/dL [facility] Blood specimen (specimen) 12/27/2012 3:57 AM EDT 12/27/2012 4:03 AM EDT Narrative Resulting Agency Comment Spec In Lab Fabi Bliss MD CHEMISTRY ORDERA BLES Performing Organization Address [facility] de Phone Number [facility] * Magnesium (12/27/2012 3:57 AM EDT) Magnesium 0.81 0.69 - 1.07 mmol/L [facility] Blood specimen (specimen) 12/27/2012 3:57 AM EDT 12/27/2012 4:03 AM EDT Narrative Resulting Agency Comment Spec In Lab Fabi Bliss MD CHEMISTRY ORDERA BLES CERNER MILLENNIUM * (ABNORMAL) Lactate Dehydrogenase (12/27/2012 3:57 AM EDT) Lactate Dehydrogenase 257(H) 110 - 220 unit/L CERNER MILLENNIUM Blood specimen (specimen) 12/27/2012 3:57 AM EDT 12/27/2012 4:03 AM EDT Narrative Resulting Agency Comment Spec In Lab Fabi Bliss MD CHEMISTRY ORDERA BLES [facility]ILLENNI[facility] * (ABNORMAL) Basic Metabolic Panel (non-fasting) (12/27/2012 3:57 AM EDT) Glucose 108 60 - 199 mg/dL CERNER MILLENNIUM Comment:Diabetes: >=200 mg/d L plus symptoms Blood Urea Nitrogen 10 8 - 18 mg/dL CERNER MILLENNIUM Creatinine 2.10(H) 0.70 - 1.20 mg/dL CERNER MILLENNIUM Comment: Please note that the pediatric reference intervals supplied above were not validated at [facility]. Results from pediatric patients should be interpreted [...] MD HEMATOLOGY ORDERABLE S Performing Organization Address City/[facility]/ZIP Co de Phone Number [facility] * (ABNORMAL) APTT (12/26/2012 10:31 AM EDT) Partial Thromboplastin Time 36(H) 25 - [address] [facility] Comment: Recommended therapeutic PTT range for full dose unfractionated heparin is 80-114 seconds. Blood specimen (specimen) 12/26/2012 10:31 AM EDT 12/26/2012 10:37 AM EDT Narrative Resulting Agency Comment Spec In Lab Haris Jarvis MD HEMATOLOGY ORDERABLE S Performing Organization Address [facility] Co de Phone Number [facility] * Antibody screen (12/26/2012 10:31 AM EDT) Ab Screen Interp Negative [facility] Expires at [id number] on: [id number] [facility] Blood specimen (specimen) 12/26/2012 10:31 AM EDT 12/26/2012 10:43 AM EDT Narrative Resulting Agency Comment Spec In Lab Ankit Ohara MD BLOOD BANK LAB ORDER VIKAS Performing Organization Address [facility] de Phone Number [facility] * ABO/Rh Typing (12/26/2012 10:31 AM EDT) ABORH Type AB Pos [facility] Blood specimen (specimen) 12/26/2012 10:31 AM EDT 12/26/2012 10:43 AM EDT Narrative Resulting Agency Comment Spec In Lab Ankit Ohara MD BLOOD BANK LAB ORDER VIKAS Performing Organization Address [facility] Co de Phone Number [facility] * Free Thyroxine Index (12/26/2012 3:42 AM EDT) Pathologist [facility] Free Thyroxine Index 6.8 4.5 - 9.5 mcg/dL [facility] Comment: Females: 5. 5-10.5 mcg/dL Blood specimen (specimen) 12/26/2012 3:42 AM EDT 12/26/2012 3:47 AM EDT Narrative Resulting Agency Comment Spec In Lab Luis E Trotter MD CHEMISTRY ORDERABLES Performing Organization Address [facility] Co de Phone Number [facility] * T3 (12/26/2012 3:42 AM EDT) T3 Total 77 75 - 170 ng/dL [facility] Blood specimen (specimen) 12/26/2012 3:42 AM EDT 12/26/2012 3:47 AM EDT Narrative Resulting Agency Comment Spec In Lab Luis E Trotter MD CHEMISTRY ORDERABLES Performing Organization Address [facility] de Phone Number [facility] * T Uptake (12/26/2012 3:42 AM EDT) Pathologist [facility] T Uptake 0.99 0.80 - 1.[address] [facility] Comment: Tup assay is directly proportional to Thyroid binding protein concentration, thus FT4 Index = TT4/Tup. [place] Cord Blood Reference Range: ??0.74-1.28. Blood specimen (specimen) 12/26/2012 3:42 AM EDT 12/26/2012 3:47 AM EDT Narrative Resulting Agency Comment Spec In Lab Luis E Trotter MD CHEMISTRY ORDERABLES Performing Organization Address [facility] Co de Phone Number [facility] * T4 (12/26/2012 3:42 AM EDT) Pathologist [facility] T4 Total 6.7 5.1 - 10.8 mcg/dL [facility] Comment: Reference Range: Cord Blood: ??6.9-14.4 mcg/dL Females: ??7.2-14.2 mcg/dL Pediatric ranges: ??Interpret with caution-ranges have not been verified Blood specimen (specimen) 12/26/2012 3:42 AM EDT 12/26/2012 3:47 AM EDT Narrative Resulting Agency Comment Spec In Lab Luis E Trotter MD CHEMISTRY ORDERABLES Performing Organization Address City/[facility]/ZIP Co de Phone Number CERELIO PINEDAIUM * TSH (12/26/2012 3:42 AM EDT) Thyroid Stimulating Hormone 1.97 0.27 - 4.20 mcIU/mL CERNER MILLENNIUM Blood specimen (specimen) 12/26/2012 3:42 AM EDT 12/26/2012 3:47 AM EDT Narrative Resulting Agency Comment Spec In Lab Luis E Trotter MD CHEMISTRY ORDERABLES Performing Organization Address [facility] de Phone Number CERELIO ARCOSENNIUM * Differential, Automated (12/26/2012 3:42 AM EDT) [...] Gran Absolute 0.02 0.00 - 0.05 x10(3)/mcL [facility] Blood specimen (specimen) 12/26/2012 3:42 AM EDT 12/26/2012 3:46 AM EDT Luis E Trotter MD HEMATOLOGY ORDERABLE S Performing Organization Address [facility] Co de Phone Number [facility] * Phosphorus (12/26/2012 3:42 AM EDT) Phosphorus 4.1 2.5 - 4.5 mg/dL [facility] Blood specimen (specimen) 12/26/2012 3:42 AM EDT 12/26/2012 3:46 AM EDT Narrative Resulting Agency Comment Spec In Lab Fabi Bliss MD CHEMISTRY ORDERA ERICK Performing Organization Address [facility] de Phone Number [facility] * Magnesium (12/26/2012 3:42 AM EDT) Magnesium 0.80 0.69 - 1.07 mmol/L [facility] Blood specimen (specimen) 12/26/2012 3:42 AM EDT 12/26/2012 3:46 AM EDT Narrative Resulting Agency Comment Spec In Lab Fabi Bliss MD CHEMISTRY ORDERA BLERenuka Performing Organization Address [facility] de Phone Number [facility] * (ABNORMAL) Lactate Dehydrogenase (12/26/2012 3:42 AM EDT) Lactate Dehydrogenase 255(H) 110 - 220 unit/L [facility] Blood specimen (specimen) 12/26/2012 3:42 AM EDT 12/26/2012 3:46 AM EDT Narrative Resulting Agency Comment Spec In Lab Fabi Bliss MD CHEMISTRY ORDERA BLERenuka CERELIO ARCOSENNIUM * (ABNORMAL) Basic Metabolic Panel (non-fasting) (12/26/2012 3:42 AM EDT) [facility] Signature Glucose 99 60 - 199 mg/dL CERNER MILLENNIUM Comment:Diabetes: >=200 mg/d L plus symptoms Blood Urea Nitrogen 11 8 - 18 mg/dL CERNER MILLENNIUM Creatinine 2.05(H) 0.70 - 1.20 mg/dL CERNER MILLENNIUM Comment: Please note that the pediatric reference intervals supplied above were not validated at [facility]. Results from pediatric patients should be interpreted [...] Trotter MD CHEMISTRY ORDERABLES Performing Organization Address [facility]/ZIP Co de Phone Number BAR ARCOSENNIUM * (ABNORMAL) CBC (with Diff) (12/26/2012 3:42 [...] MD HEMATOLOGY ORDERABLE S Performing Organization Address [facility]/ZIP Co de Phone Number BAR NOE * Vancomycin, trough (12/25/2012 6:29 PM EDT) Vancomycin, Trough 19.0 mg/L C ERNER MILLENNIUM Comment: Therapeutic range [...] Jarvis MD CHEMISTRY ORDERABLES Performing Organization Address [facility] Co de Phone Number [facility] * APTT (12/25/2012 3:26 PM EDT) Partial Thromboplastin Time 31 25 - 35 sec [facility] Comment: Recommended therapeutic PTT range for full dose unfractionated heparin is 80-114 seconds. Blood specimen (specimen) 12/25/2012 3:26 PM EDT 12/25/2012 3:39 PM EDT Narrative Resulting Agency Comment Spec In Lab Haris Jarvis MD HEMATOLOGY ORDERABLE S Performing Organization Address [facility] de Phone Number BAR NOE * Prothrombin Time (12/25/2012 3:26 PM EDT) Prothrombin Time 14.5 12.0 - 15.0 sec [facility] Comment: [facility] Transfusion Committee Guidelines: INR less than 2.0, PTT less than OR equal to 43.5 seconds, or Fibrinogen greater than or equal to 100 mg/dl indicate adequate procoagulant activity for hemostasis in patients without underlying bleeding disorders. International Normalization Ratio 1.1 0.9 - 1.1 [facility] LDK SolarALE[facility]IUM Blood specimen (specimen) 12/25/2012 3:26 PM EDT 12/25/2012 3:39 PM EDT Narrative Resulting Agency Comment Spec In Lab Haris Jarvis MD HEMATOLOGY ORDERABLE S Performing Organization Address [facility] Co de Phone Number BAR ARCOSHandInScanBRII * Duplex for DVT, arm, bilat (12/25/2012 3:18 PM EDT) VB Text Report Department: Vascular Surgery Lab Patient: [id number] (ANUM HENRIQUEZ) CPT Code: 29782 ICD-9: 451.84 Referring Physician: HARIS JARVIS Indication: [...] 12:04 PM EDT) Smear Review Report ? [facility] ? Provider: ?? HARIS JARVIS ? Pt. Name: ?? ANUM HENRIQUEZ N ? Acc #: ?[id number] ? Pt. ? Col Date: ?? 12/25/2012 [...] the most recent ? previous smear (see [id number]). Compared to the previous, the current ? material shows fewer schistocytes. Note is further made of the declining ? LDH and increasing haptoglobin and platelet count over time, both of which ? 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 BAR NOE 12/25/2012 12:0 4 PM EDT Haris Jarvis MD HEMATOLOGY ORDERABLE S BAR PINEDAIUM * (ABNORMAL) Differential, Automated (12/25/2012 12:04 PM EDT) Neutrophil % 72.8(H) 34.0 - 71.0 % CERNER MILLENNIUM Neutrophil Absolute 4.85 1.50 - 6.30 x10(3)/mc [...] NOE * (ABNORMAL) CBC (with Diff) (12/25/2012 12:04 [...] Platelet Volume 10.6 9.0 - 12.0 fL CERNER MILLENNIUM Blood specimen (specimen) 12/25/2012 12:04 PM EDT 12/25/2012 12:08 PM EDT Narrative Resulting Agency Comment Spec In Lab Haris Jarvis MD HEMATOLOGY ORDERABLE S Performing Organization Address City/[facility] Co de Phone Number BAR NOE * Haptoglobin (12/25/2012 12:04 PM EDT) Pathologist [facility] Haptoglobin 70 30 - 200 mg/dL [facility] Comment: Haptoglobin concentrations in newborns is low to undetectable; however, adult concentrations are usually attained by 4 months of age. ??No sex-related differences for haptoglobin have been detected. Blood specimen (specimen) 12/25/2012 12:04 PM EDT 12/25/2012 12:08 PM EDT Narrative Resulting Agency Comment Spec In Lab Haris Jarvis MD CHEMISTRY ORDERABLES Performing Organization Address City/[facility]/ZIP Co de Phone Number [facility] * (ABNORMAL) Lactate Dehydrogenase (12/25/2012 12:04 PM EDT) Lactate Dehydrogenase 288(H) 110 - 220 unit/L BAR PINEDAIUM Blood specimen (specimen) 12/25/2012 12:04 PM EDT 12/25/2012 12:08 PM EDT Narrative Resulting Agency Comment Spec In Lab Haris Jarvis MD CHEMISTRY ORDERABLES Performing Organization Address [facility] de Phone Number BAR PINEDAIUM * Peripheral Smear Review (12/25/2012 12:04 PM EDT) Peripheral Smear Review See Comment [facility]ELIO ARCOSENNIUM Comment: When completed by the Pathologist, report [id number] will display under Hematopathology Reports. Blood specimen (specimen) 12/25/2012 12:04 PM EDT 12/25/2012 12:08 PM EDT Narrative Resulting Agency Comment Spec In Lab Haris Jarvis MD HEMATOLOGY ORDERABLE S Performing Organization Address [facility] Phone Number BAR PINEDAIUM * C4 Complement (12/25/2012 12:04 PM EDT) Complement C4 17 10 - 40 mg/dL BAR PINEDAIUM Blood specimen (specimen) 12/25/2012 12:04 PM EDT 12/25/2012 12:08 PM EDT Narrative Resulting Agency Comment Spec In Lab Haris Jarvis MD CHEMISTRY ORDERABLES Performing Organization Address [facility] de Phone Number BAR PINEDAIUM * (ABNORMAL) C3 Complement (12/25/2012 12:04 PM EDT) Complement C3 86(L) 90 - 180 mg/dL BAR PINEDAIUM Blood specimen (specimen) 12/25/2012 12:04 PM EDT 12/25/2012 12:08 PM EDT Narrative Resulting Agency Comment Spec In Lab Haris Jarvis MD CHEMISTRY ORDERABLES Performing Organization Address [facility] Co de Phone Number BAR ARCOSENNIUM * Erythropoietin Level (12/25/2012 12:04 PM EDT) Erythropoietin (OCTOBER) 17 4 - 24 mIU/mL BAR NOE Blood specimen (specimen) 12/25/2012 12:04 PM EDT 12/25/2012 2:17 PM EDT Narrative Resulting Agency Comment Spec In Lab Haris Jarvis MD LAB SEND OUT ORDERAB LES BAR NOE * Duplex Study for DVT, Bilat legs (12/25/2012 11:06 AM EDT) VB Text Report Department: Vascular Surgery Lab Patient: [id number] (ANUM HENRIQUEZ) CPT Code: 70549 ICD-9: 451.19 Referring Physician: HARIS JARVIS Indication: [...] MD HEMATOLOGY ORDERABLE S Performing Organization Address [facility]/ZIP Co de Phone Number [facility] * Phosphorus (12/25/2012 4:14 AM EDT) Phosphorus 3.4 2.5 - 4.5 mg/dL [facility] Blood specimen (specimen) 12/25/2012 4:14 AM EDT 12/25/2012 4:22 AM EDT Narrative Resulting Agency Comment Spec In Lab Fabi Bliss MD CHEMISTRY ORDERA BLERenuka Performing Organization Address [facility] de Phone Number [facility] * Magnesium (12/25/2012 4:14 AM EDT) Magnesium 0.80 0.69 - 1.07 mmol/L [facility] Blood specimen (specimen) 12/25/2012 4:14 AM EDT 12/25/2012 4:22 AM EDT Narrative Resulting Agency Comment Spec In Lab Fabi Bliss MD CHEMISTRY ORDERA BLES Performing Organization Address [facility] de Phone Number [facility] * (ABNORMAL) Lactate Dehydrogenase (12/25/2012 4:14 AM EDT) Lactate Dehydrogenase 249(H) 110 - 220 unit/L [facility] Blood specimen (specimen) 12/25/2012 4:14 AM EDT 12/25/2012 4:22 AM EDT Narrative Resulting Agency Comment Spec In Lab Fabi Bliss MD CHEMISTRY ORDERA BLERenuka Performing Organization Address [facility] Co de Phone Number [facility] * (ABNORMAL) Basic Metabolic Panel (non-fasting) (12/25/2012 4:14 AM EDT) Glucose 99 60 - 199 mg/dL CERNER MILLENNIUM Comment:Diabetes: >=200 mg/d L plus symptoms Blood Urea Nitrogen 10 8 - 18 mg/dL CERNER MILLENNIUM Creatinine 2.01(H) 0.70 - 1.20 mg/dL CERNER MILLENNIUM Comment: Please note that the pediatric reference intervals supplied above were not validated at [facility]. Results from pediatric patients should be interpreted [...] Lab Luis E Trotter MD CHEMISTRY ORDERABLES [facility] * (ABNORMAL) CBC (with Diff) (12/25/2012 4:14 AM EDT) Pathologist [facility] White Blood Cell 5.5 4.0 - 10.0 [...] Luis E Trotter MD HEMATOLOGY ORDERABLE S [facility] * Duplex for DVT, arm, bilat (12/24/2012 1:45 PM EDT) Pathologist [facility] VB Text Report Department: Vascular Surgery Lab Patient: [id number] (ANUM HENRIQUEZ) CPT Code: 38360 ICD-9: 451.84 Referring Physician: ANKIT OHARA Indication: [...] PM EDT) Vancomycin, Trough 14.2 mg/L [facility] Comment: Therapeutic range for complicated [...] MD HEMATOLOGY ORDERABLE S Performing Organization Address City/[facility]/ZIP Co de Phone Number CERNER MILLENNIUM * Direct antiglobulin test (12/24/2012 1:00 PM EDT) Pathologist [facility] SEN Poly Negative CERNER MILLENNIUM Blood specimen (specimen) 12/24/2012 1:00 PM EDT 12/24/2012 1:22 PM EDT Narrative Resulting Agency Comment Spec In Lab Ankit Ohara MD BLOOD BANK LAB ORDER VIKAS CERNER MILLENNIUM * (ABNORMAL) Reticulocyte Count (12/24/2012 1:00 PM EDT) Reticulocyte % 1.5 0.5 - 2.4 % [facility] MILL[facility]UM Retic Abs # 0.040 0.027 - 0.095 x10(6)/mcL CERNER MILLENNIUM Immature Retic% 5.5 2.3 - 15.9 % CERNER MILLENNIUM Reticulated Hgb 27.9(L) 28.8 - 38.9 pg CERNER MILLENNIUM Immature Plt % 4.2 0.0 - 7.4 % [facility] MILLEN[facility] Blood specimen (specimen) 12/24/2012 1:00 PM EDT 12/24/2012 1:17 PM EDT Narrative Resulting Agency Comment Spec In Lab Ankit Ohara MD HEMATOLOGY ORDERABLE S Performing Organization Address [facility] de Phone Number [facility] * Haptoglobin (12/24/2012 1:00 PM EDT) Haptoglobin 75 30 - 200 mg/dL [facility] MILLENNIUM Comment: Haptoglobin concentrations in newborns is low to undetectable; however, adult concentrations are usually attained by 4 months of age. ??No sex-related differences for haptoglobin have been detected. Blood specimen (specimen) 12/24/2012 1:00 PM EDT 12/24/2012 1:17 PM EDT Narrative Resulting Agency Comment Spec In Lab Ankit Ohara MD CHEMISTRY ORDERABLES Performing Organization Address [facility] Co de Phone Number [facility]ELIO PINEDAIUM * Bilirubin, total and direct (12/24/2012 1:00 PM EDT) Bilirubin, Total 0.4 0.2 - 1.3 mg/dL [facility] MILLENNIUM Bilirubin, Direct 0.1 0.0 - 0.3 mg/dL [facility] MILLEN[facility]UM Blood specimen (specimen) 12/24/2012 1:00 PM EDT 12/24/2012 1:17 PM EDT Narrative Resulting Agency Comment Spec In Lab Ankit Ohara MD CHEMISTRY ORDERABLES Performing Organization Address City/[facility] Co de Phone Number BAR PINEDAIUM [...] In Lab Fabi Bliss MD CHEMISTRY TAMMYA BLERenuka Performing Organization Address [facility] de Phone Number CERELIO ARCOSENNIUM * Magnesium (12/24/2012 3:58 AM EDT) Magnesium 0.74 0.69 - 1.07 mmol/L CERNER MILLENNIUM Blood specimen (specimen) 12/24/2012 3:58 AM EDT 12/24/2012 3:58 AM EDT Narrative Resulting Agency Comment Spec In Lab Fabi Bliss MD CHEMISTRY ORDERA BLES Performing Organization Address [facility] Co de Phone Number CERNER ISRRAELENNIUM * (ABNORMAL) Lactate Dehydrogenase (12/24/2012 3:58 AM EDT) Lactate Dehydrogenase 237(H) 110 - 220 unit/L CERNER MILLENNIUM Blood specimen (specimen) 12/24/2012 3:58 AM EDT 12/24/2012 3:58 AM EDT Narrative Resulting Agency Comment Spec In Lab Fabi Bliss MD CHEMISTRY ORDERA BLERenuka Performing Organization Address City/[facility]/ZIP Co de Phone Number CERNER MILLENNIUM * (ABNORMAL) Basic Metabolic Panel (non-fasting) (12/24/2012 3:58 AM EDT) [facility] Glucose 95 60 - 199 mg/dL CERNER MILLENNIUM Comment:Diabetes: >=200 mg/d L plus symptoms Blood Urea Nitrogen 7(L) 8 - 18 mg/dL CERNER MILLENNIUM Creatinine 1.59(H) 0.70 - 1.20 mg/dL CERNER MILLENNIUM Comment: Please note that the pediatric reference intervals supplied above were not validated at [facility]. Results from pediatric patients should be interpreted [...] CERELIO MILLENNIUM * (ABNORMAL) Differential, Automated (12/24/2012 3:45 [...] HENRIQUEZ ?Ordered By: ANKIT OHARA ? MR#: [id number] ?LOC: ??1WST ? /Sex: ??1960 (52 years), ? Female ? PROCEDURE: Blood Culture ?SOURCE: Blood ? COLLECTED: 12/24/2012 03:45 ?FREE TEXT SOURCE: no site provided ? STARTED: 12/24/2012 07:36 ? FINAL REPORT ? Final Report ? Verified:2012 15:11 ? No growth at 5 days. ? PRELIMINARY REPORT ? Preliminary Report ? Verified:2012 15:10 ? No growth at 4 days. ? [facility] Blood specimen (specimen) 12/24/2012 3:45 AM EDT 12/24/2012 7:35 AM EDT Narrative Resulting Agency Comment Spec In Lab Ankit Ohara MD MICROBIOLOGY - BLOOD ORDERABLES [facility] * (ABNORMAL) CBC (with Diff) (12/24/2012 3:45 [...] PM EDT) ABORH Type AB Pos BAR ARCOSENNIUM Blood specimen (specimen) 12/23/2012 1:29 PM EDT 12/23/2012 1:43 PM EDT Narrative Resulting Agency Comment Spec In Lab Ankit Ohara MD BLOOD BANK LAB ORDER VIKAS Performing Organization Address [facility] de Phone Number BAR NOE * Vancomycin, trough (12/23/2012 1:29 PM EDT) Vancomycin, Trough 9.7 mg/L [facility] Comment: Therapeutic range for complicated [...] Ohara MD CHEMISTRY ORDERABLES Performing Organization Address [facility] de Phone Number [facility] * Transfuse RBC (12/23/2012 10:14 AM EDT) Ankit Ohara MD NURSING TREATMENT OR DERABLES - BLOOD ADMIN * Blood culture (12/23/2012 9:15 AM EDT) Blood Culture ? Patient Name: ANUM HENRIQUEZ ?Ordered By: ANKIT OHARA ? MR#: [id number] ?LOC: ??1WST ? /Sex: ??1960 (52 years), [...] days. ? BAR NOE Blood specimen (specimen) TOPOGRAPHY UNKNOWN / Unknown 12/23/2012 9:15 AM EDT 12/23/2012 9:31 AM EDT Comment:NO SOURCE PROVIDED Narrative Resulting Agency Comment Spec In Lab Ankit Ohara MD MICROBIOLOGY - BLOOD ORDERABLES BAR NOE * Prepare RBC (12/23/2012 6:40 AM EDT) Dispensed? Yes BAR NOE Blood specimen (specimen) 12/23/2012 6:40 AM EDT 12/23/2012 6:37 AM EDT Ankit Ohara MD BLOOD BANK PRODUCT O RDERABLES BAR NOE * (ABNORMAL) Differential, Automated (12/23/2012 5:45 AM [...] HENRIQUEZ ?Ordered By: ANKIT OHARA ? MR#: [id number] ?LOC: ??1WST ? /Sex: ??1960 (52 years), [...] days. ? BAR PINEDAIUM Blood specimen (specimen) 12/23/2012 5:45 AM EDT 12/23/2012 7:17 AM EDT Narrative Resulting Agency Comment Spec In Lab Ankit Ohara MD MICROBIOLOGY - BLOOD ORDERABLES BAR NOE * Phosphorus (12/23/2012 5:45 AM EDT) Phosphorus 2.9 2.5 - 4.5 mg/dL BAR PINEDAIUM Blood specimen (specimen) 12/23/2012 5:45 AM EDT 12/23/2012 6:08 AM EDT Narrative Resulting Agency Comment Spec In Lab Fabi Bliss MD CHEMISTRY ORDERA BLES Performing Organization Address City/[facility]/ZIP Co de Phone Number BAR PINEDAIUM * Magnesium (12/23/2012 5:45 AM EDT) Magnesium 0.71 0.69 - 1.07 mmol/L CERNER MILLENNIUM Blood specimen (specimen) 12/23/2012 5:45 AM EDT 12/23/2012 6:08 AM EDT Narrative Resulting Agency Comment Spec In Lab Fabi Bliss MD CHEMISTRY ORDERBhumi SUAREZ Performing Organization Address [facility] Co de Phone Number BAR ARCOSENNIUM * (ABNORMAL) Lactate Dehydrogenase (12/23/2012 5:45 AM EDT) Lactate Dehydrogenase 240(H) 110 - 220 unit/L [facility] MILLENNIUM Blood specimen (specimen) 12/23/2012 5:45 AM EDT 12/23/2012 6:08 AM EDT Narrative Resulting Agency Comment Spec In Lab Fabi Bliss MD CHEMISTRY ORDERA BLES Performing Organization Address [facility] de Phone Number [facility]ELIO PINEDAIUM * (ABNORMAL) Basic Metabolic Panel (non-fasting) (12/23/2012 5:45 AM EDT) Glucose 92 60 - 199 mg/dL [facility] MILLENNIUM Comment:Diabetes: >=200 mg/d L plus symptoms Blood Urea Nitrogen 11 8 - 18 mg/dL [facility] MILLENNIUM Creatinine 1.52(H) 0.70 - 1.20 mg/dL CERNER MILLENNIUM Comment: Please note that the pediatric reference intervals supplied above were not validated at [facility]. Results from pediatric patients should be interpreted in conjunction to the patient's age, height and muscle mass. Sodium 138 135 - 145 mmol/L [facility] MILLENNIUM Potassium 4.2 3.5 - 5.0 mmol/L [...] Luis E Trotter MD CHEMISTRY ORDERABLES CERELIO NOE * (ABNORMAL) CBC (with Diff) (12/23/2012 5:45 [...] Standard Deviation 47.8(H) 35.0 - 46.[address] [facility] RDW coefficient of variation 14.7(H) 10.9 - 14.4 % [facility] MILLPHOEN[facility]DI[facility] CENTERIUM Mean Platelet Volume 10.7 9.0 - 12.0 fL [facility] Blood specimen (specimen) 12/23/2012 5:45 AM EDT 12/23/2012 6:08 AM EDT Narrative Resulting Agency Comment Spec In Lab Luis E Trotter MD HEMATOLOGY ORDERABLE S [facility] * Urine culture Urine (12/23/2012 1:45 AM EDT) Urine Culture ? Patient Name: ANUM HENRIQUEZ ?Ordered By: ANKIT OHARA ? MR#: [id number] ?LOC: ??1WST ? /Sex: ??1960 (52 years), ? Female ? PROCEDURE: Urine Culture ?SOURCE: U CC ? COLLECTED: 12/23/2012 01:45 ? STARTED: 12/23/2012 07:29 ? FINAL REPORT ? Final Report ? Verified:2012 08:56 ? 1,000-9,000 cfu/ml Gram Positive organisms , probable contaminant ? CERNER MILLENNIUM Urine specimen obtained by clean catch procedure (specimen) 12/23/2012 1:45 AM EDT 12/23/2012 7:29 AM EDT Narrative Resulting Agency Comment Spec In Lab Ankit Ohara MD MICROBIOLOGY - GENER AL ORDERABLES Performing Organization Address City/[facility]/ZIP Co de Phone Number BAR PINEDAIUM * (ABNORMAL) Urinalysis with microscopic (12/23/2012 1:44 [...] Urine Dipstick Clear Clear CERNER MILLENNIUM Specific [place] Urine Automated 1.009 1.002 - 1.030 CERNER MILLENNIUM Color, Urine Dipstick Light Yellow Yellow CERNER MILLENNIUM RBC, Urine 2 0 - 4 /HPF CERNER MILLENNIUM WBC, Urine 2 0 - 5 /HPF CERNER MILLENNIUM Urine specimen (specimen) 12/23/2012 1:44 AM EDT 12/23/2012 1:58 AM EDT Narrative Resulting Agency Comment Spec In Lab Ankit Ohara MD URINE ORDERABLES Performing Organization Address City/[facility]/ZIP Co de Phone Number BAR PINEDAIUM * Helicobacter pylori Antigen Stool (12/22/2012 6:24 PM EDT) H pylori Antigen, Stool Negative Negative CERNER MILLENNIUM Comment: Test Performed by: [facility] [address] [address] Proofer Prepress: Jennifer Ramirez, Ph.D. Stool specimen (specimen) 12/22/2012 6:24 PM EDT 12/24/2012 2:42 PM EDT Narrative Resulting Agency Comment Spec In Lab Ankit Ohara MD MICROBIOLOGY - GENER AL ORDERABLES CERNER MILLENNIUM * (ABNORMAL) Differential, Automated [...] MILLENNIUM * (ABNORMAL) CBC (with Diff) (12/22/2012 1:16 [...] Ankit Ohara MD HEMATOLOGY ORDERABLE S CERELIO MILLENNIUM * Blood culture (12/22/2012 1:16 PM EDT) Blood Culture ? Patient Name: ANUM HENRIQUEZ ?Ordered By: ANKIT OHARA ? MR#: [id number] ?LOC: ??1WST ? /Sex: ??1960 (52 years), [...] days. ? BAR PINEDAIUM Blood specimen (specimen) PERIPHERALLY INSERTED CENTRAL CATHETER / Unknown 12/22/2012 1:16 PM EDT 12/22/2012 1:26 PM EDT Narrative Resulting Agency Comment Spec In Lab Ankit Ohara MD MICROBIOLOGY - BLOOD ORDERABLES BAR NOE * Blood culture (12/22/2012 1:01 PM EDT) Blood Culture ? Patient Name: ANUM HENRIQUEZ Eliza ?Ordered By: ANKIT OHARA ? MR#: [id number] ?LOC: ??1WST ? /Sex: ??1960 (52 years), [...] days. ? BAR NOE Blood specimen (specimen) ANTECUBITAL REGION STRUCTURE / Unknown 12/22/2012 1:01 PM EDT 12/22/2012 1:12 PM EDT Narrative Resulting Agency Comment Spec In Lab Ankit Ohara MD MICROBIOLOGY - BLOOD ORDERABLES BAR NOE * Blood culture (12/22/2012 12:45 PM EDT) Blood Culture ? Patient Name: ANUM HENRIQUEZ ?Ordered By: ANKIT OHARA ? MR#: [id number] ?LOC: ??1WST ? /Sex: ??1960 (52 years), [...] days. ? BAR NOE Blood specimen (specimen) 12/22/2012 12:45 PM EDT [...] MD HEMATOLOGY ORDERABLE S Performing Organization Address City/[facility] Co de Phone Number CERELIO PINEDAIUM * Phosphorus (12/22/2012 5:00 AM EDT) Phosphorus 2.6 2.5 - 4.5 mg/dL CERNER ISRRAELENNIUM Blood specimen (specimen) 12/22/2012 5:00 AM EDT 12/22/2012 5:08 AM EDT Narrative Resulting Agency Comment Spec In Lab Fabi Bliss MD CHEMISTRY ORDERA BLERenuka Performing Organization Address [facility] de Phone Number BAR ARCOSENNIUM * Magnesium (12/22/2012 5:00 AM EDT) Magnesium 0.71 0.69 - 1.07 mmol/L CERELIO ARCOSENNIUM Blood specimen (specimen) 12/22/2012 5:00 AM EDT 12/22/2012 5:08 AM EDT Narrative Resulting Agency Comment Spec In Lab Fabi Bliss MD CHEMISTRY ORDERA BLES Performing Organization Address [facility] Co de Phone Number BAR ARCOSENNIUM * (ABNORMAL) Lactate Dehydrogenase (12/22/2012 5:00 AM EDT) Lactate Dehydrogenase 232(H) 110 - 220 unit/L CERNER MILLENNIUM Blood specimen (specimen) 12/22/2012 5:00 AM EDT 12/22/2012 5:08 AM EDT Narrative Resulting Agency Comment Spec In Lab Fabi Bliss MD CHEMISTRY ORDERA BLERenuka Performing Organization Address [facility] Co de Phone Number CERNER MILLENNIUM * (ABNORMAL) Basic Metabolic Panel (non-fasting) (12/22/2012 5:00 AM EDT) [facility] Glucose 96 60 - 199 mg/dL CERNER MILLENNIUM Comment:Diabetes: >=200 mg/d L plus symptoms Blood Urea Nitrogen 15 8 - 18 mg/dL CERNER MILLENNIUM Creatinine 1.53(H) 0.70 - 1.20 mg/dL CERNER MILLENNIUM Comment: result rechecked-[facility] Please note that the pediatric reference intervals supplied above were not validated at [facility]. Results from pediatric patients should be interpreted in conjunction to the patient's age, height and muscle mass. result rechecked- Please note that the pediatric reference intervals supplied above were not validated at [facility]. Results from pediatric patients should be interpreted [...] - 10.5 mg/dL CERNER MILLENNIUM Comment: result rechecked-[facility] result rechecked- Corrected from 7.1 mg/dL [LOW] [...] CERELIO MILLENNIUM * (ABNORMAL) CBC (with Diff) (12/22/2012 [...] MD HEMATOLOGY ORDERABLE S CERNER MILLENNIUM * Fibrinogen (12/22/2012 5:00 AM EDT) Fibrinogen 326 175 - 450 mg/dL BAR PINEDAIUM Blood specimen (specimen) 12/22/2012 5:00 AM EDT 12/22/2012 5:08 AM EDT Narrative Resulting Agency Comment Spec In Lab Ankit Ohara MD HEMATOLOGY ORDERABLE S Performing Organization Address [facility] Co de Phone Number BAR NOE * (ABNORMAL) APTT (12/22/2012 5:00 AM EDT) Partial Thromboplastin Time 36(H) 25 - 35 sec BAR NOE Comment: Recommended therapeutic PTT range for full dose unfractionated heparin is 80-114 seconds. Blood specimen (specimen) 12/22/2012 5:00 AM EDT 12/22/2012 5:08 AM EDT Narrative Resulting Agency Comment Spec In Lab Ankit Ohara MD HEMATOLOGY ORDERABLE S Performing Organization Address [facility] Co de Phone Number BAR NOE * (ABNORMAL) Prothrombin Time (12/22/2012 5:00 AM EDT) Prothrombin Time 17.1(H) 12.0 - 15.0 sec BAR NOE Comment: [facility] Transfusion Committee Guidelines: INR less than 2.0, PTT less than OR equal to 43.5 seconds, or Fibrinogen greater than or equal to 100 mg/dl indicate adequate procoagulant activity for hemostasis in patients without underlying bleeding disorders. International Normalization Ratio 1.4(H) 0.9 - 1.1 BAR NOE Blood specimen (specimen) 12/22/2012 5:00 AM EDT 12/22/2012 5:08 AM EDT Narrative Resulting Agency Comment Spec In Lab Ankit Ohara MD HEMATOLOGY ORDERABLE S Performing Organization Address [facility] Co de Phone Number BAR NOE * Hepatitis B Surface Antigen (12/21/2012 7:35 PM EDT) Hepatitis B Surface Antigen Negative Negative [facility] Blood specimen (specimen) 12/21/2012 7:35 PM EDT 12/22/2012 8:11 AM EDT Narrative Resulting Agency Comment Spec In Lab Ankit Ohara MD CHEMISTRY ORDERABLES Performing Organization Address [facility] Co de Phone Number [facility] * Vancomycin, trough (12/21/2012 7:35 PM EDT) Vancomycin, Trough 7.0 mg/L [facility] Comment: Therapeutic range for complicated [...] Ohara MD CHEMISTRY ORDERABLES Performing Organization Address [facility] Co de Phone Number [facility] * MRI brain with/WO contrast (12/21/2012 5:18 [...] HENRIQUEZ ?Ordered By: ANKIT OHARA ? MR#: [id number] ?LOC: ??1WST ? /Sex: ??1960 (52 years), ? Female ? PROCEDURE: Blood Culture ?SOURCE: Blood ? COLLECTED: 12/21/2012 15:40 ? BODY SITE: Internal Jugular ? STARTED: 12/21/2012 15:52 ?FREE TEXT SOURCE: Please draw one culture from [facility] and ? one from [facility] plasmaphoresis line today. Thank ? you. ? FINAL REPORT ? Final Report ? Verified:12/28/19 13 15:11 ? No growth at 5 days. ? PRELIMINARY REPORT ? Preliminary Report ? Verified:12/26/19 13 23:11 ? No growth at 4 days. ? CERNER MILLENNIUM Blood specimen (specimen) INTERNAL JUGULAR VEIN STRUCTURE / Unknown 12/21/2012 3:40 PM EDT 12/21/2012 3:52 PM EDT Comment:PLEASE DRAW ONE CULT URE FROM PICC LINE AND ONE FROM [facility] PLASMAPHORESIS LINE TODAY. THANK YOU. Narrative Resulting Agency Comment Spec In Lab Ankit Ohara MD MICROBIOLOGY - BLOOD ORDERABLES CERNER MILLENNIUM * (ABNORMAL) Basic Metabolic Panel (non-fasting) (12/21/2012 3:40 PM EDT) Glucose 110 60 - 199 mg/dL CERNER MILLENNIUM Comment:Diabetes: >=200 mg/d L plus symptoms Blood Urea Nitrogen 33(H) 8 - 18 mg/dL CERNER MILLENNIUM Creatinine 2.34(H) 0.70 - 1.20 mg/dL CERNER MILLENNIUM Comment: Please note that the pediatric reference intervals supplied above were not validated at [facility]. Results from pediatric patients should be interpreted [...] Ohara MD CHEMISTRY ORDERABLES Performing Organization Address [facility] Co de Phone Number [employer] * Vitamin B6 (12/21/2012 2:30 PM EDT) Pathologist [facility] Vitamin B6 (OCTOBER) 6 5 - 50 mcg/L [employer] Comment: Test Performed by: [place] [address] Proofer Prepress: Jennifer Ramirez, Ph.D. Blood specimen (specimen) 12/21/2012 2:30 PM EDT 12/23/2012 8:37 AM EDT Narrative Resulting Agency Comment Spec In Lab Ankit Ohara MD LAB SEND OUT ORDERAB LES Performing Organization Address [facility]/ZIP Co de Phone Number [employer] * SCAN DOC: LAB (12/21/2012 1:54 PM [...] Comment: Total Hemoglobin (in gm/dL) ?Based on [facility] Hematology ranges: ?Age ?Reference Range Less than [...] Ohara MD CHEMISTRY ORDERABLES Performing Organization Address [facility] Co de Phone Number BAR PINEDAIUM * Green Tube HOLD (12/21/2012 1:40 PM EDT) Green Hold Sample in lab. BAR PINEDAIUM Blood specimen (specimen) 12/21/2012 1:40 PM EDT 12/21/2012 1:48 PM EDT Ankit Ohara MD CHEMISTRY ORDERABLES Performing Organization Address [facility]/ZIP Co de Phone Number BAR PINEDAIUM * Vitamin B12 (12/21/2012 1:40 PM EDT) Vitamin B12 498 207 - 974 pg/mL BAR ARCOSENNIUM Blood specimen (specimen) 12/21/2012 1:40 PM EDT 12/21/2012 1:44 PM EDT Narrative Resulting Agency Comment Spec In Lab Ankit Ohara MD CHEMISTRY ORDERABLES BAR NOE * (ABNORMAL) Extractable Nuclear Antigen [...] ?U -- REFERENCE VALUE -- <1.0 (Negative) ??CRT Ab, IgG, S ?<0.2 ?U -- REFERENCE VALUE -- <1.0 (Negative) ??Scl 70 Ab, IgG, S ? <0.2 ?U -- REFERENCE VALUE -- <1.0 (Negative) ??Fozia 1 Ab, IgG, S ? <0.2 ?U -- REFERENCE VALUE -- <1.0 (Negative) Test Performed by: [facility] [place] [place] [address] Proofer Prepress: Jennifer Ramirez, Ph.D.(A) CERELIO ARCOSENNIUM Blood specimen (specimen) 12/21/2012 1:40 PM EDT 12/23/2012 8:37 AM EDT Narrative Resulting Agency Comment Spec In Lab Ankit Ohara MD LAB SEND OUT ORDERAB LES Performing Organization Address [facility] Co de Phone Number BAR NOE * (ABNORMAL) Ammonia (12/21/2012 1:40 PM EDT) Ammonia <10(L) 11 - 51 mcmol/L CERELIO ARCOSENNIUM Blood specimen (specimen) 12/21/2012 1:40 PM EDT 12/21/2012 1:44 PM EDT Narrative Resulting Agency Comment Spec In Lab Ankit Ohara MD CHEMISTRY ORDERABLES Performing Organization Address [facility] de Phone Number BAR NOE * Blood culture (12/21/2012 9:21 AM EDT) Blood Culture ? Patient Name: ANUM HENRIQUEZ ?Ordered By: ANKIT OHARA ? MR#: [id number] ?LOC: ??1WST ? /Sex: ??1960 (52 years), [...] MD HEMATOLOGY ORDERABLE S Performing Organization Address [facility] Co de Phone Number BAR NOE * Phosphorus (12/21/2012 6:50 AM EDT) Phosphorus 4.1 2.5 - 4.5 mg/dL BAR PINEDAIUM Blood specimen (specimen) 12/21/2012 6:50 AM EDT 12/21/2012 7:14 AM EDT Narrative Resulting Agency Comment Spec In Lab Fabi Bliss MD CHEMISTRY ORDERA BLES Performing Organization Address [facility] Co de Phone Number BAR PINEDAIUM * (ABNORMAL) Magnesium (12/21/2012 6:50 AM EDT) Magnesium 0.66(L) 0.69 - 1.07 mmol/L BAR PINEDAIUM Blood specimen (specimen) 12/21/2012 6:50 AM EDT 12/21/2012 7:14 AM EDT Narrative Resulting Agency Comment Spec In Lab Fabi Bliss MD CHEMISTRY ORDERA BLES Performing Organization Address [facility] Co de Phone Number BAR NOE * (ABNORMAL) Lactate Dehydrogenase (12/21/2012 6:50 AM EDT) Lactate Dehydrogenase 237(H) 110 - 220 unit/L BAR PINEDAIUM Blood specimen (specimen) 12/21/2012 6:50 AM EDT 12/21/2012 7:14 AM EDT Narrative Resulting Agency Comment Spec In Lab Fabi Bliss MD CHEMISTRY ORDERA BLES Performing Organization Address [facility] Co de Phone Number BAR PINEDAIUM * (ABNORMAL) Basic Metabolic Panel (non-fasting) (12/21/2012 6:50 AM EDT) [facility] Glucose 102 60 - 199 mg/dL CERNER MILLENNIUM Comment:Diabetes: >=200 mg/d L plus symptoms Blood Urea Nitrogen 33(H) 8 - 18 mg/dL CERNER MILLENNIUM Creatinine 2.29(H) 0.70 - 1.20 mg/dL CERNER MILLENNIUM Comment: Please note that the pediatric reference intervals supplied above were not validated at [facility]. Results from pediatric patients should be interpreted [...] Cell 2.49(L) 3.93 - 5.22 x10(6)/mc L CERNER MILLENNIUM Hemoglobin 7.7(L) 11.2 - 15.7 gm/dL CERNER MILLENNIUM Hematocrit 22.4(L) 34.0 - 45.0 % CERNER MILLENNIUM Mean Cell Volume 90.0 79.0 - 94.0 fL CERNER MILLENNIUM Mean Cell Hemoglobin 30.9 26.6 - 32.2 pg CERNER MILLENNIUM Mean Cell Hemoglobin Concentration 34.4 32.0 - 36.5 gm/dL CERNER MILLENNIUM Platelet 158 145 - 370 x10(3)/mc L CERNER MILLENNIUM RDW Standard Deviation 46.5(H) 35.0 - 46.0 fL CERNER MILLENNIUM RDW coefficient of variation 14.7(H) 10.9 - 14.4 % CERNER MILLENNIUM Mean Platelet Volume 10.8 9.0 - 12.0 fL CERNER MILLENNIUM Blood specimen (specimen) 12/21/2012 6:50 AM EDT 12/21/2012 7:14 AM EDT Narrative Resulting Agency Comment Spec In Lab Luis E Trotter MD HEMATOLOGY ORDERABLE S BAR NOE * Transfuse RBC (12/21/2012 6:15 AM EDT) Ankit Ohara MD NURSING TREATMENT OR DERABLES - BLOOD ADMIN * Prepare RBC (12/21/2012 12:55 AM EDT) Dispensed? Yes BAR PNIEDAIUM Blood specimen (specimen) 12/21/2012 12:55 AM EDT 12/21/2012 12:53 AM EDT Ankit Ohara MD BLOOD BANK PRODUCT O RDERABLES Performing Organization Address [facility] de Phone Number BAR NOE * Transfusion Reaction Interp (12/20/2012 6:28 PM EDT) Trans RXN Interp INTERPRETATION: Transfusion associated circulatory overload. The patient is approved to receive future transfusions. Please refer to the clinical note for a complete summary of this transfusion reaction. Jaleel Reynoso MD Transfusion Medicine Service 02/19/13 11:29 [facility] Comment: Jaleel Reynoso, Pathologist Verified:02/19/13 Blood specimen (specimen) 12/20/2012 6:28 PM EDT 12/20/2012 6:28 PM EDT Narrative Resulting Agency Comment Spec In Lab Ankit Ohara MD BLOOD BANK LAB ORDER VIKAS Performing Organization Address [facility] de Phone Number [facility] * Blood culture (12/20/2012 5:00 PM EDT) Pathologist [facility] Blood Culture ? Patient Name: ANUM HENRIQUEZ ?Ordered By: ANKIT OHARA ? MR#: [id number] ?LOC: ??1WST ? /Sex: ??1960 (52 years), [...] 08:30 ? Staphylococcus aureus, MRSA isolated ? [facility] Blood specimen (specimen) 12/20/2012 5:00 PM EDT 12/20/2012 5:14 PM EDT Narrative Resulting Agency Comment Spec In Lab Ankit Ohara MD MICROBIOLOGY - BLOOD ORDERABLES [facility] * Urine culture Clean Catch Urine (12/20/2012 4:49 PM EDT) Urine Culture ? Patient Name: ANUM HENRIQUEZ ?Ordered By: ANKIT OHARA ? MR#: [id number] ?LOC: ??1WST ? /Sex: ??1960 (52 years), ? Female ? PROCEDURE: Urine Culture ?SOURCE: U ICath ? COLLECTED: 12/20/2012 16:49 ? STARTED: 12/20/2012 17:07 ? FINAL REPORT ? Final Report ? Verified:12/23/19 08:10 ? Greater than 100,000 cfu/ml Staphylococcus [...] Tetracycline ?S ? Vancomycin ?S ? Patient: FLORENCEANUM ? MR#: [id number] ? FOOTNOTES ? (1) ? Gentamicin is not appropriate for Boyd-therapy. ? (2) ? MRSA, Note Nafcillin Resistance ? CERNER MILLENNIUM Urine specimen obtained via indwelling urinary catheter (specimen) 12/20/2012 4:49 PM EDT 12/20/2012 5:07 PM EDT Narrative Resulting Agency Comment Spec In Lab Ankit Ohara MD MICROBIOLOGY - GENER AL ORDERABLES Performing Organization Address [facility]/ZIP Co de Phone Number CERNER MILLENNIUM * (ABNORMAL) pro-Brain Natriuretic Peptide (12/20/2012 4:10 PM EDT) NT-proBNP 2411(H) <=125 pg/mL CERNER MILLENNIUM Blood specimen (specimen) 12/20/2012 4:10 PM EDT 12/20/2012 4:16 PM EDT Narrative Resulting Agency Comment Spec In Lab Ankit Ohara MD CHEMISTRY ORDERABLES Performing Organization Address [facility]/ZIP Co de Phone Number CERNER MILLENNIUM * (ABNORMAL) Urinalysis with microscopic (12/20/2012 [...] Urine Dipstick Clear Clear CERNER MILLENNIUM Specific [place] Urine Automated 1.007 1.002 - 1.030 CERNER [...] HENRIQUEZ ?Ordered By: ANKIT OHARA ? MR#: [id number] ?LOC: ??1WST ? /Sex: ??1960 (52 years), [...] FINAL REPORT ? Final Report ? Verified:12/24/19 08:30 ? Staphylococcus aureus, MRSA isolated ? Isolate saved. If future testing is required, contact the Microbiology ? Business Services Vice President. ? PRELIMINARY REPORT ? Preliminary Report ? Verified:12/23/19 08:30 ? Staphylococcus aureus, MRSA isolated ? Patient: ANUM HENRIQUEZ ? MR#: [id number] ? SUSCEPTIBILITY RESULTS ? Staphylococcus aureus, MRSA [...] (1) ? Gentamicin is not appropriate for Boyd-therapy. ? (2) ? MRSA, Note Nafcillin Resistance ? CERNER MILLENNIUM Blood specimen (specimen) 12/20/2012 3:40 PM EDT [...] (Bezet) 406 ms MUSE SYSTEM Calculated P Pacolet 58 degrees MUSE SYSTEM Calculated R Pac[place] 32 degrees MUSE SYSTEM Calculated T Pac[place] 24 degrees MUSE SYSTEM INTERPRETATION Normal sinus rhythm Nonspecific T wave abnormality Abnormal ECG No previous ECGs available Confirmed by MD CEASAR, JAY ([id number]) on 12/21/2012 7:30:22 AM MUSE SYSTEM 12/20/2012 2:21 PM EDT 12/21/2012 7:30 AM EDT Ankit Ohara MD ECG ORDERABLES Performing Organization Address [facility] de Phone Number MUSE SYSTEM * (ABNORMAL) Magnesium (12/20/2012 1:55 PM EDT) Pathologist [facility] Magnesium 0.66(L) 0.69 - 1.07 mmol/L CERNER MILLENNIUM Blood specimen (specimen) 12/20/2012 1:55 PM EDT 12/20/2012 2:11 PM EDT Narrative Resulting Agency Comment Spec In Lab Ankit Ohara MD CHEMISTRY ORDERABLES Performing Organization Address [facility] de Phone Number CERNER MILLENNIUM * Scan, [...] MD HEMATOLOGY ORDERABLE S Performing Organization Address City/[facility] Co de Phone Number CERNER MILLENNIUM [...] HEMATOLOGY ORDERABLE S BAR PINEDAIUM * (ABNORMAL) APTT (12/20/2012 1:55 PM EDT) Partial Thromboplastin Time 41(H) 25 - 35 sec CERNER MILLENNIUM Comment: Recommended therapeutic PTT range for full dose unfractionated heparin is 80-114 seconds. Blood specimen (specimen) 12/20/2012 1:55 PM EDT 12/20/2012 2:03 PM EDT Narrative Resulting Agency Comment Spec In Lab Ankit Ohara MD HEMATOLOGY ORDERABLE S Performing Organization Address [facility] de Phone Number BAR PINEDAIUM * (ABNORMAL) Prothrombin Time (12/20/2012 1:55 PM EDT) Prothrombin Time 17.1(H) 12.0 - 15.0 sec CERNER MILLENNIUM Comment: [facility] Transfusion Committee Guidelines: INR less than [...] MD HEMATOLOGY ORDERABLE S Performing Organization Address [facility] de Phone Number CERELIO PINEDAIUM * (ABNORMAL) [...] Panel (non-fasting) (12/20/2012 1:55 PM EDT) Pathologist [facility] Glucose 103 60 - 199 mg/dL CERNER MILLENNIUM Comment:Diabetes: >=200 mg/d L plus symptoms Blood Urea Nitrogen 34(H) 8 - 18 mg/dL CERNER MILLENNIUM Creatinine 1.86(H) 0.70 - 1.20 mg/dL CERNER MILLENNIUM Comment: Please note that the pediatric reference intervals supplied above were not validated at [facility]. Results from pediatric patients should be interpreted [...] Ohara MD CHEMISTRY ORDERABLES Performing Organization Address [facility] Co de Phone Number BAR AirWatchIUM * Antibody screen (12/20/2012 12:20 PM EDT) Ab Screen Interp Negative CERELIO AirWatchIUM Expires at [id number] on: [id number] CERNER [facility] Blood specimen (specimen) 12/20/2012 12:20 PM EDT 12/20/2012 12:33 PM EDT Narrative Resulting Agency Comment Spec In Lab Ankit Ohara MD BLOOD BANK LAB ORDER VIKAS Performing Organization Address [facility] de Phone Number CERELIO [employer] * ABO/Rh Typing (12/20/2012 12:20 PM EDT) ABORH Type AB Pos CERNER LDK SolarENNIUM Blood specimen (specimen) 12/20/2012 12:20 PM EDT 12/20/2012 12:33 PM EDT Narrative Resulting Agency Comment Spec In Lab Ankit Ohara MD BLOOD BANK LAB ORDER VIKAS Performing Organization Address [facility] Co de Phone Number CERELIO AirWatch[employer]UM * (ABNORMAL) H. pylori Antibody, IgG (12/20/2012 12:20 PM EDT) H pylori Ab Pos(A) Neg CERNER MILLENNIUM Blood specimen (specimen) 12/20/2012 12:20 PM EDT 12/21/2012 2:03 PM EDT Narrative Resulting Agency Comment Spec In Lab Ankit Ohara MD IMMUNOLOGY ORDERABLE S BAR PINEDAIUM * Prepare RBC (12/20/2012 9:45 AM EDT) Dispensed? Yes BAR PINEDAIUM Blood specimen (specimen) 12/20/2012 9:45 AM EDT 12/20/2012 9:43 AM EDT Ankit Ohara MD BLOOD BANK PRODUCT O RDERABLES BAR PINEDAIUM * SCAN DOC: LAB (12/20/2012 9:17 AM [...] Absolute 0.05 0.00 - 0.05 x10(3)/mc L CERNER MILLENNIUM Blood specimen (specimen) 12/20/2012 4:50 AM EDT 12/20/2012 5:08 AM EDT Luis E Trotter MD HEMATOLOGY ORDERABLE S Performing Organization Address [facility] Co de Phone Number BAR ARCOSENNIUM * (ABNORMAL) Phosphorus (12/20/2012 4:50 AM EDT) Phosphorus 4.9(H) 2.5 - 4.5 mg/dL BAR ARCOSENNIUM Blood specimen (specimen) 12/20/2012 4:50 AM EDT 12/20/2012 5:08 AM EDT Narrative Resulting Agency Comment Spec In Lab Fabi Bliss MD CHEMISTRY ORDERA BLES Performing Organization Address City/[facility] Co de Phone Number BAR ARCOSENNIUM * Magnesium (12/20/2012 4:50 AM EDT) Magnesium 0.71 0.69 - 1.07 mmol/L CERELIO ARCOSENNIUM Blood specimen (specimen) 12/20/2012 4:50 AM EDT 12/20/2012 5:08 AM EDT Narrative Resulting Agency Comment Spec In Lab Fabi Bliss MD CHEMISTRY ORDERA BLES Performing Organization Address City/[facility] Co de Phone Number CERNER MILLENNIUM * Lactate Dehydrogenase (12/20/2012 4:50 AM EDT) Lactate Dehydrogenase 220 110 - 220 unit/L CERNER MILLENNIUM Blood specimen (specimen) 12/20/2012 4:50 AM EDT 12/20/2012 5:08 AM EDT Narrative Resulting Agency Comment Spec In Lab Fabi Bliss MD CHEMISTRY ORDERA ERICK CERNER ISRRAELENNIUM * (ABNORMAL) Basic Metabolic Panel (non-fasting) (12/20/2012 4:50 AM EDT) Glucose 104 60 - 199 mg/dL CERNER MILLENNIUM Comment:Diabetes: >=200 mg/d L plus symptoms Blood Urea Nitrogen 38(H) 8 - 18 mg/dL CERNER MILLENNIUM Creatinine 2.11(H) 0.70 - 1.20 mg/dL CERNER MILLENNIUM Comment: Please note that the pediatric reference intervals supplied above were not validated at [facility]. Results from pediatric patients should be interpreted [...] Trotter MD CHEMISTRY ORDERABLES Performing Organization Address City/[facility] Co de Phone Number CERNER MILLENNIUM [...] E Trotter MD HEMATOLOGY ORDERABLE S CERELIO ISRRAELENNIUM * (ABNORMAL) Fibrinogen (12/20/2012 4:50 AM EDT) Fibrinogen 170(L) 175 - 450 mg/dL BAR NOE Blood specimen (specimen) 12/20/2012 4:50 AM EDT 12/20/2012 5:08 AM EDT Narrative Resulting Agency Comment Spec In Lab Jaleel Reynoso MD HEMATOLOGY ORDERABLE S BAR NOE * Duplex Study for DVT, Bilat legs (12/19/2012 10:03 AM EDT) VB Text Report Department: Vascular Surgery Lab Patient: [id number] (ANUM HENRIQUEZ) CPT Code: 26021 ICD-9: 451.19 Referring Physician: ANKIT OHARA Indication: [...] Ohara MD VASCULAR ORDERABLES Performing Organization Address [facility] de Phone Number VASCUBASE * Fibrinogen (12/19/2012 7:40 AM EDT) Fibrinogen 214 175 - 450 mg/dL [facility] Blood specimen (specimen) 12/19/2012 7:40 AM EDT 12/19/2012 7:51 AM EDT Narrative Resulting Agency Comment Spec In Lab Jaleel Reynoso MD HEMATOLOGY ORDERABLE S Performing Organization Address [facility] de Phone Number [facility] * T4 (12/19/2012 3:20 AM EDT) Pathologist [facility] T4 Total 5.7 5.1 - 10.8 mcg/dL [facility] Comment: Reference Range: Cord Blood: ??6.9-14.4 mcg/dL Females: ??7.2-14.2 mcg/dL Pediatric ranges: ??Interpret with caution-ranges have not been verified Blood specimen (specimen) 12/19/2012 3:20 AM EDT 12/19/2012 6:09 AM EDT Narrative Resulting Agency Comment Spec In Lab Luis E Trotter MD CHEMISTRY ORDERABLES Performing Organization Address [facility] de Phone Number [facility] * T Uptake (12/19/2012 3:20 AM EDT) T Uptake 1.03 0.80 - 1.[address] [facility] Comment: Tup assay is directly proportional to Thyroid binding protein concentration, thus FT4 Index = TT4/Tup. [place] Cord Blood Reference Range: ??0.74-1.28. Blood specimen (specimen) 12/19/2012 3:20 AM EDT 12/19/2012 3:54 AM EDT Narrative Resulting Agency Comment Spec In Lab Luis E Trotter MD CHEMISTRY ORDERABLES BAR PINEDAIUM * T4, free (12/19/2012 3:20 AM EDT) Free T4 1.05 0.90 - 1.60 ng/dL CERNER ISRRAELENNIUM Blood specimen (specimen) 12/19/2012 3:20 AM EDT 12/19/2012 3:54 AM EDT Narrative Resulting Agency Comment Spec In Lab Luis E Trotter MD CHEMISTRY ORDERABLES Performing Organization Address City/[facility] Co de Phone Number BAR PINEDAIUM * (ABNORMAL) T3 (12/19/2012 3:20 AM EDT) Pathologist [facility] T3 Total 58(L) 75 - 170 ng/dL CERELIO PINEDAIUM Blood specimen (specimen) 12/19/2012 3:20 AM EDT 12/19/2012 3:54 AM EDT Narrative Resulting Agency Comment Spec In Lab Luis E Trotter MD CHEMISTRY ORDERABLES Performing Organization Address [facility] Co de Phone Number BAR PINEDAIUM * (ABNORMAL) Differential, Automated (12/19/2012 3:20 AM [...] EDT) Phosphorus 4.8(H) 2.5 - 4.5 mg/dL BAR ARCOSENNIUM Blood specimen (specimen) 12/19/2012 3:20 AM EDT 12/19/2012 3:40 AM EDT Narrative Resulting Agency Comment Spec In Lab Fabi Bliss MD CHEMISTRY ORDERA BLES BAR PINEDAIUM * Magnesium (12/19/2012 3:20 AM EDT) Magnesium 0.80 0.69 - 1.07 mmol/L CERELIO ARCOSENNIUM Blood specimen (specimen) 12/19/2012 3:20 AM EDT 12/19/2012 3:40 AM EDT Narrative Resulting Agency Comment Spec In Lab Fabi Bliss MD CHEMISTRY ORDERA BLES CERNER MILLENNIUM * (ABNORMAL) Lactate Dehydrogenase (12/19/2012 3:20 AM EDT) Lactate Dehydrogenase 270(H) 110 - 220 unit/L CERNER MILLENNIUM Blood specimen (specimen) 12/19/2012 3:20 AM EDT 12/19/2012 3:40 AM EDT Narrative Resulting Agency Comment Spec In Lab Fabi Bliss MD CHEMISTRY ORDERA BLES CERNER MILLENNIUM * (ABNORMAL) Basic Metabolic Panel (non-fasting) (12/19/2012 3:20 AM EDT) Glucose 98 60 - 199 mg/dL CERNER MILLENNIUM Comment:Diabetes: >=200 mg/d L plus symptoms Blood Urea Nitrogen 41(H) 8 - 18 mg/dL CERNER MILLENNIUM Creatinine 2.19(H) 0.70 - 1.20 mg/dL CERNER MILLENNIUM Comment: Please note that the pediatric reference intervals supplied above were not validated at [facility]. Results from pediatric patients should be interpreted [...] MD HEMATOLOGY ORDERABLE S Performing Organization Address [facility]/ZIP Co de Phone Number [facility] * (ABNORMAL) Calcium Ionized Whole Blood, CLEO (12/18/2012 9:05 PM EDT) pH, Venous 7.44(H) 7.32 - 7.42 [facility] ICa Whole Blood 1.20 1.15 - 1.33 mmol/L [facility] Comment: Reference Ranges: ?? < 19 yrs: 1.22 - 1.37 mmol/L ? Adults: 1.15 - 1.33 mmol/L Note: ??Total bilirubin higher than 20 mg/dL may lead to falsely low ionized calcium. Blood specimen (specimen) 12/18/2012 9:05 PM EDT 12/18/2012 9:11 PM EDT Narrative Resulting Agency Comment Spec In Lab Ankit Ohara MD CHEMISTRY ORDERABLES Performing Organization Address City/[facility]/ZIP Co de Phone Number BAR NOE * UPPER GI ENDOSCOPY (12/18/2012 4:09 PM EDT) Pathologist [facility] UPPER GI ENDOSCOPY [facility] Endoscopy Patient Name: Anum Henriquez ? Procedure Date: 12/18/2012 4:09 PM ? Date of : 1960 ? Age: 52 ? Order #: [id number] ? Procedure: ? Upper GI endoscopy Indications: ? Melena Providers: ? Alda Sullivan MD, Tonny Nguyen RN, ? Chikis Swanson, Nail Making Machine Setter Referring : ?Bakari Islas: ? Midazolam 1.5 mg IV, Fentanyl 50 [...] GENERAL SURGICAL ORD ERABLES Performing Organization Address [facility] Co de Phone Number PROVATION * (ABNORMAL) Calcium [...] Ohara MD CHEMISTRY ORDERABLES Performing Organization Address [facility] de Phone Number CERNER MILLENNIUM * (ABNORMAL) Calcium Ionized Whole Blood, CLEO (12/18/2012 2:35 PM EDT) pH, Venous 7.42 7.32 - 7.42 CERNER MILLENNIUM ICa Whole Blood 0.81(Criti lenard) 1.15 - 1.33 mmol/L CERNER MILLENNIUM Comment: Result rechecked. Called by: [email or web address], Read back by: Maria Alejandra Carrasco, Date/Time:12/18/12 [...] E Trotter MD HEMATOLOGY ORDERABLE S CERNER ISRRAELENNIUM * Scan, Peripheral Blood (12/18/2012 4:25 AM EDT) Plat estimate Decreased BAR NOE RBC Morphology Normal CERNE R ISRRAELENNIUM Blood specimen (specimen) 12/18/2012 4:25 AM EDT 12/18/2012 4:36 AM EDT Narrative Resulting Agency Comment Spec In Lab Luis E Trotter MD HEMATOLOGY ORDERABLE S Performing Organization Address [facility] Co de Phone Number BAR NOE * Phosphorus (12/18/2012 4:25 AM EDT) Phosphorus 4.4 2.5 - 4.5 mg/dL [facility]RAEL[facility]EN[facility]ENTER[facility] Blood specimen (specimen) 12/18/2012 4:25 AM EDT 12/18/2012 4:36 AM EDT Narrative Resulting Agency Comment Spec In Lab Fabi Bliss MD CHEMISTRY ORDERA BLES Performing Organization Address [facility] de Phone Number BAR [facility]COSPHOEN[facility]ENTERBRII * Magnesium (12/18/2012 4:25 AM EDT) Magnesium 0.83 0.69 - 1.07 mmol/L BAR [facility]OSPH[facility]ENTERBR[facility] Blood specimen (specimen) 12/18/2012 4:25 AM EDT 12/18/2012 4:36 AM EDT Narrative Resulting Agency Comment Spec In Lab Faib lBiss MD CHEMISTRY ORDERA BLES Performing Organization Address [facility] Co de Phone Number BAR ARCOSPHOEN[facility]ENTERBRII * (ABNORMAL) Lactate Dehydrogenase (12/18/2012 4:25 AM EDT) Lactate Dehydrogenase 306(H) 110 - 220 unit/L BAR ARCOSPHOEN[facility]ENTERBRII Blood specimen (specimen) 12/18/2012 4:25 AM EDT [...] intervals supplied above were not validated at [facility]. Results from pediatric patients should be interpreted [...] * Red Hold (12/17/2012 6:49 PM EDT) [facility] Sample in lab. BAR NOE Blood specimen (specimen) 12/17/2012 6:49 PM EDT 12/17/2012 7:06 PM EDT Fabi Bliss MD CHEMISTRY ORDERA BLES BAR NOE * Hepatitis C Antibody (12/17/2012 6:49 PM EDT) [facility] Hepatitis C Antibody Negative Negative [facility] Blood specimen (specimen) 12/17/2012 6:49 PM EDT 12/17/2012 7:03 PM EDT Narrative Resulting Agency Comment Spec In Lab Fabi Bliss MD CHEMISTRY ORDERA BLES BAR NOE * KIANA (12/17/2012 6:49 PM EDT) KIANA Neg Neg BAR [facility]COSPH[facility]ENTERBRII Blood specimen (specimen) 12/17/2012 6:49 PM EDT 12/18/2012 8:09 AM EDT Narrative Resulting Agency Comment Spec In Lab Fabi Bliss MD LAB SEND OUT ORD ERABLES Performing Organization Address City/[facility]/ZIP Co de Phone Number BAR NOE * Transfuse RBC (12/17/2012 5:07 PM EDT) Fabi Bliss MD NURSING TREATMEN T ORDERABLES - BLOOD ADMIN * Smear Review Report (12/17/2012 2:24 PM EDT) Pathologist [facility] Smear Review Report ? [facility] ? Provider: ?? FABI BLISS Pt. Name: ?? FLORENCEKRAIGANUM N ?M ? Acc #: ?[id number] ? Pt. ? Col Date: ?? 12/17/2012 [...] than noted in the previous smear; [id number]. BAR ISRRAELMEKHI 12/17/2012 2:24 PM EDT Fabi Bliss MD HEMATOLOGY ORDER VIKAS Performing Organization Address [facility] de Phone Number [facility] * Peripheral Smear Review (12/17/2012 1:00 PM EDT) Pathologist [facility] Peripheral Smear Review See Comment BAR [facility] Comment: When completed by the Pathologist, report [id number] will display under Hematopathology Reports. Blood specimen (specimen) 12/17/2012 1:00 PM EDT 12/17/2012 1:10 PM EDT Narrative Resulting Agency Comment Spec In Lab Fabi Bliss MD HEMATOLOGY ORDER VIKAS Performing Organization Address [facility] Co de Phone Number BAR [facility] * (ABNORMAL) Differential, Automated (12/17/2012 1:00 PM EDT) Pathologist [facility] Neutrophil % 74.4(H) 34.0 - 71.0 % BAR NOE Neutrophil Absolute 5.12 1.50 - 6.30 x10(3)/mc [...] EDT Fabi Bliss MD HEMATOLOGY ORDER VIKAS CERELIO PINEDAIUM * (ABNORMAL) CBC (with Diff) (12/17/2012 1:00 [...] (12/17/2012 9:35 AM EDT) Dispensed? Yes CERNER ISRRAELENNIUM Blood specimen (specimen) 12/17/2012 9:35 AM EDT 12/17/2012 9:34 AM EDT Fabi Bliss MD BLOOD BANK PRODU CT ORDERABLES BAR ARCOSENNIUM * Scan, Peripheral Blood (12/17/2012 4:00 [...] HEMATOLOGY ORDERABLE S CERELIO ARCOSENNIUM * (ABNORMAL) Lactate Dehydrogenase (12/17/2012 4:00 AM EDT) Lactate Dehydrogenase 366(H) 110 - 220 unit/L CERNER MILLENNIUM Blood specimen (specimen) 12/17/2012 4:00 AM EDT 12/17/2012 4:04 AM EDT Narrative Resulting Agency Comment Spec In Lab Fabi Bliss MD CHEMISTRY ORDERA BLES CERNER MILLENNIUM * (ABNORMAL) Basic Metabolic Panel (non-fasting) (12/17/2012 4:00 AM EDT) Glucose 105 60 - 199 mg/dL CERNER MILLENNIUM Comment:Diabetes: >=200 mg/d L plus symptoms Blood Urea Nitrogen 37(H) 8 - 18 mg/dL CERNER MILLENNIUM Creatinine 2.25(H) 0.70 - 1.20 mg/dL CERNER MILLENNIUM Comment: Please note that the pediatric reference intervals supplied above were not validated at [facility]. Results from pediatric patients should be interpreted [...] Trotter MD CHEMISTRY ORDERABLES Performing Organization Address [facility] Co de Phone Number CERELIO MILLENNIUM * (ABNORMAL) CBC (with Diff) (12/17/2012 [...] MD HEMATOLOGY ORDERABLE S Performing Organization Address City/[facility] Co de Phone Number BAR PINEDAIUM * Shiga Toxin Detection (12/17/2012 3:32 AM EDT) Shiga Toxin Assay ? Patient Name: ANUM HENRIQUEZ ?Ordered By: FABI BLISS ? MR#: [id number] ?LOC: ??1WST ? /Sex: ??1960 (52 years), ? Female ? PROCEDURE: Shiga Toxin Assay ?SOURCE: Stool ? COLLECTED: 12/17/2012 03:32 ?FREE TEXT SOURCE: Clinical TTP-HUS. Please test for E coli O157: ? STARTED: 12/17/2012 14:48 ? H7 / shiga toxin. ? FINAL REPORT ? Final Report ? Verified:12/09 15:59 ? Test not performed due to no enteric growth. ? __ [facility] Stool specimen (specimen) 12/17/2012 3:32 AM EDT 12/17/2012 2:48 PM EDT Comment:CLINICAL TTP-HUS. PL EASE TEST FOR E COLI O157:H7 / SHIGA TOXIN. Narrative Resulting Agency Comment Spec In Lab Fabi Bliss MD MICROBIOLOGY - G ENERAL ORDERABLES [facility] * Campylobacter Antigen (12/17/2012 3:32 AM EDT) Campylobacter Ag ? Patient Name: ANUM HENRIQUEZ ?Ordered By: FABI BLISS ? MR#: [id number] ?LOC: ??1WST ? /Sex: ??1960 (52 years), ? Female ? PROCEDURE: Campylobacter Antigen ?SOURCE: Stool ? COLLECTED: 12/17/2012 03:32 ?FREE TEXT SOURCE: Clinical TTP-HUS. Please test for E coli O157: ? STARTED: 12/17/2012 14:49 ? H7 / shiga toxin. ? FINAL REPORT ? Final Report ? Verified: 013 13:37 ? Immunoassay Negative for Campylobacter Antigen ? [facility] Stool specimen (specimen) 12/17/2012 3:32 AM EDT 12/17/2012 2:49 PM EDT Comment:CLINICAL TTP-HUS. PL EASE TEST FOR E COLI O157:H7 / SHIGA TOXIN. Narrative Resulting Agency Comment Spec In Lab Fabi Bliss MD MICROBIOLOGY - G ENERAL ORDERABLES [facility] * Stool culture (12/17/2012 3:32 AM EDT) Stool Culture ? Patient Name: ANUM HENRIQUEZ ?Ordered By: FABI BLISS ? MR#: [id number] ?LOC: ??1WST ? /Sex: ??1960 (52 years), [...] - G ENERAL ORDERABLES Performing Organization Address [facility] de Phone Number [facility] * Cryptosporidium Oocyst Antigen (12/17/2012 3:32 AM EDT) Cryptosporidium Antigen Negative Negative [facility] Stool specimen (specimen) 12/17/2012 3:32 AM EDT 12/17/2012 2:49 PM EDT Narrative Resulting Agency Comment Spec In Lab Luis E Trotter MD MICROBIOLOGY - GENER AL ORDERABLES Performing Organization Address [facility] de Phone Number [facility] * Giardia antigen (12/17/2012 3:32 AM EDT) Giardia Antigen Negative Negative [facility] Comment:Examination for othe r intestinal parasites requires foreign travel history. Stool specimen (specimen) 12/17/2012 3:32 AM EDT 12/17/2012 2:49 PM EDT Narrative Resulting Agency Comment Spec In Lab Luis E Trotter MD MICROBIOLOGY - GENER AL ORDERABLES Performing Organization Address [facility] de Phone Number [facility] * MRI brain WO contrast (12/16/2012 9:02 PM EDT) Anatomical Region Laterality Modality Head Magnetic Resonan ce 12/16/2012 9:02 PM EDT Narrative 12/17/2012 8:23 AM EDT Examination MR Brain without Contrast Clinical History Pt with TTP-HUS, anemia, thrombocytopenia. New AMS, may be 2/2 TTP but want to r/o CLASSIFICATION AND TREATMENT DIRECTOR bleed, stroke, or any e/o CLASSIFICATION AND TREATMENT DIRECTOR vasculitis Comparison None Technique We obtained multi [...] may be 2/2 TTP butwant to r/o CLASSIFICATION AND TREATMENT DIRECTOR bleed, stroke, or any e/o CLASSIFICATION AND TREATMENT DIRECTOR vasculitis Comparison None Technique We obtained multi [...] 6:15 PM EDT) HIV 1/2 Ab Negative [facility] Blood specimen (specimen) 12/16/2012 6:15 PM EDT 12/16/2012 6:20 PM EDT Narrative Resulting Agency Comment Spec In Lab Fabi Bliss MD CHEMISTRY ORDERA BLES [facility] * Place PICC Line: Contact Vascular Access Page [phone] (12/16/2012 3:36 PM EDT) Narrative Edvin Brian [...] to the planned procedure. Hand Hygiene: The asian art curator did perform hand hygiene prior to line insertion. Catheter type: PICC Lot number: [id number] Procedure Technique: Skin was prepped with chlorhexidine. [...] to the planned procedure. Hand Hygiene: The asian art curator did perform hand hygiene prior to line insertion. Catheter type: PICC Lot number: [id number] Procedure Technique: Skin was prepped with chlorhexidine. [...] C4 4(L) 10 - 40 mg/dL [facility] Blood specimen (specimen) 12/16/2012 2:00 PM EDT 12/16/2012 2:15 PM EDT Narrative Resulting Agency Comment Spec In Lab Fabi Bliss MD CHEMISTRY ORDERA BLERenuka Performing Organization Address [facility] Co de Phone Number [facility] * (ABNORMAL) C3 Complement (12/16/2012 2:00 PM EDT) Complement C3 66(L) 90 - 180 mg/dL [facility] Blood specimen (specimen) 12/16/2012 2:00 PM EDT 12/16/2012 2:15 PM EDT Narrative Resulting Agency Comment Spec In Lab Fabi Bliss MD CHEMISTRY ORDERA BLERenuka Performing Organization Address [facility] de Phone Number [facility] * (ABNORMAL) C2 Complement (12/16/2012 2:00 PM EDT) C2 Complement <1.3(L) 1.6 - 3.5 mg/dL [facility] Comment: Low levels of C2 indicate increased catabolism (as in immune complex disease) or decreased synthesis. Test performed by [facility], [address] [place] [address] Blood specimen (specimen) 12/16/2012 2:00 PM EDT 12/16/2012 2:54 PM EDT Narrative Resulting Agency Comment Spec In Lab Fabi Bliss MD CHEMISTRY MARYANN SUAREZ Performing Organization Address [facility] de Phone Number [facility] * C1 Esterase Inhibitor, Functional (12/16/2012 2:00 PM EDT) C1 Scarlett Inh Qnt (OCTOBER) 90 % normal [facility] Comment: -- REFERENCE VALUE -- >67 (Normal) 41-67 (Equivocal) <41 (Abnormal) Test Performed by: [address] [address] Proofer Prepress: Tulio Luna III, M.D. Blood specimen (specimen) 12/16/2012 2:00 PM EDT 12/16/2012 3:14 PM EDT Narrative Resulting Agency Comment Spec In Lab Fabi Bliss MD LAB SEND OUT ORD ERABLES [facility] * Proteinase-3 Antibody (12/16/2012 2:00 PM EDT) Proteinase 3 Antibody 3.6 <=20.0 unit(s) [facility] Blood specimen (specimen) 12/16/2012 2:00 PM EDT 12/17/2012 8:07 AM EDT Narrative Resulting Agency Comment Spec In Lab Fabi Bliss MD IMMUNOLOGY ORDER VIKAS Performing Organization Address City/[facility] Co de Phone Number [facility] * Myeloperoxidase Ab (12/16/2012 2:00 PM EDT) Myeloperoxidase Antibody 2.8 <=20.0 unit(s) [facility] Blood specimen (specimen) 12/16/2012 2:00 PM EDT 12/17/2012 8:07 AM EDT Narrative Resulting Agency Comment Spec In Lab Fabi Bliss MD IMMUNOLOGY ORDER VIKAS Performing Organization Address [facility] de Phone Number [facility] * Cytoplasmic Neutrophilic Ab (12/16/2012 2:00 PM EDT) C-Anca (MAY) Negative Negative [facility] Comment: Test Performed by: [place] [address] Proofer Prepress: Tulio Luna III, M.D. P-Anca (MAY) Negative Negative [facility] Comment: Negative for cANCA and pANCA patterns by immunofluorescence. Test Performed by: [address] [address] Proofer Prepress: Tulio Luna III, M.D. Blood specimen (specimen) 12/16/2012 2:00 PM EDT 12/16/2012 3:13 PM EDT Narrative Resulting Agency Comment Spec In Lab Fabi Bliss MD LAB SEND OUT ORD ERABLES Performing Organization Address [facility] Co de Phone Number [facility] * (ABNORMAL) T4, free (12/16/2012 2:00 PM EDT) Free T4 0.88(L) 0.90 - 1.60 ng/dL [facility] Blood specimen (specimen) 12/16/2012 2:00 PM EDT 12/16/2012 2:15 PM EDT Narrative Resulting Agency Comment Spec In Lab Fabi Bliss MD CHEMISTRY ORDERA BLES Performing Organization Address [facility] de Phone Number [facility] * (ABNORMAL) T3, free (12/16/2012 2:00 PM EDT) Free T3 1.6(L) 2.0 - 3.5 pg/mL [facility] Comment: Test Performed by: [facility] [address] [place] [address] Proofer Prepress: Jennifer Ramirez, Ph.D. Blood specimen (specimen) 12/16/2012 2:00 PM EDT 12/16/2012 3:13 PM EDT Narrative Resulting Agency Comment Spec In Lab Fabi Bliss MD CHEMISTRY ORDERA BLES Performing Organization Address [facility] Co de Phone Number [facility] * TSH (12/16/2012 2:00 PM EDT) Thyroid Stimulating Hormone 3.68 0.27 - 4.20 mcIU/mL [facility] Blood specimen (specimen) 12/16/2012 2:00 PM EDT 12/16/2012 2:15 PM EDT Narrative Resulting Agency Comment Spec In Lab Fabi Bliss MD CHEMISTRY ORDERA BLES Performing Organization Address City/[facility]/ZIP Co de Phone Number [facility] * (ABNORMAL) Urinalysis with microscopic (12/16/2012 1:35 PM EDT) Glucose, Urine Dipstick Negative Negative mg/dL [facility] Protein, Urine Dipstick 300(A) Neg mg/dL CERNER [...] Urine Dipstick Hazy(A) Clear [facility] MILLENNIUM Specific [place] Urine Automated 1.013 1.002 - 1.030 CERNER [...] Bliss MD URINE ORDERABLES Performing Organization Address City/[facility]/ZIP Co de Phone Number [facility] MILLENNI[facility] [...] Hepatic Function Panel (12/16/2012 4:40 AM EDT) Protein, Total 4.3(L) 6.4 - 8.3 gm/dL [facility] Albumin 2.6(L) 3.2 - 5.2 gm/dL [facility] Aspartate Aminotransferase 49(H) 0 - 30 unit/L [facility] Alanine Aminotransferase 21 0 - 30 unit/L [facility] Comment:result rechecked-[facility] Alkaline Phosphatase 32(L) 40 - 104 unit/L [facility] MILLENNI[facility] Bilirubin, Total 0.8 0.2 - 1.3 mg/dL [facility] Bilirubin, Direct 0.2 0.0 - 0.3 mg/dL [facility] Blood specimen (specimen) 12/16/2012 4:40 AM EDT 12/16/2012 4:47 AM EDT Narrative Resulting Agency Comment Spec In Lab Luis E Trotter MD CHEMISTRY ORDERABLES Performing Organization Address [facility]/ZIP Co de Phone Number [facility] * (ABNORMAL) Lactate Dehydrogenase (12/16/2012 4:40 AM EDT) Lactate Dehydrogenase 455(H) 110 - 220 unit/L [facility] Blood specimen (specimen) 12/16/2012 4:40 AM EDT 12/16/2012 4:47 AM EDT Narrative Resulting Agency Comment Spec In Lab Fabi Bliss MD CHEMISTRY ORDERA BLES Performing Organization Address [facility] de Phone Number [facility] * (ABNORMAL) Basic Metabolic Panel (non-fasting) (12/16/2012 4:40 AM EDT) Glucose 110 60 - 199 mg/dL [facility] Comment:Diabetes: >=200 mg/d L plus symptoms Blood Urea Nitrogen 33(H) 8 - 18 mg/dL [facility] Creatinine 2.29(H) 0.70 - 1.20 mg/dL [facility] Comment: Please note that the pediatric reference intervals supplied above were not validated at [facility]. Results from pediatric patients should be interpreted [...] Lab Luis E Trotter MD CHEMISTRY ORDERABLES [facility] * (ABNORMAL) CBC (with Diff) (12/16/2012 4:40 [...] Standard Deviation 43.7 35.0 - 46.0 fL [facility] RDW coefficient of variation 14.4 10.9 - 14.4 % [facility] Mean Platelet Volume Not Measured 9.0 - 12.0 fL BAR [...] AM EDT) C Diff Interp Negative Negative [facility] Stool specimen (specimen) 12/15/2012 7:42 AM EDT 12/15/2012 8:15 AM EDT Narrative Resulting Agency Comment Spec In Lab Luis E Trotter MD MICROBIOLOGY - GENER AL ORDERABLES Performing Organization Address [facility] de Phone Number [facility] * (ABNORMAL) Fecal Lactoferrin (12/15/2012 7:42 AM EDT) Fecal Lactoferrin Positive( A) Negative [facility] Stool specimen (specimen) 12/15/2012 7:42 AM EDT 12/15/2012 8:15 AM EDT Narrative Resulting Agency Comment Spec In Lab Luis E Trotter MD MICROBIOLOGY - GENER AL ORDERABLES Performing Organization Address [facility] de Phone Number [facility] * Phosphorus (12/15/2012 3:50 AM EDT) Phosphorus 3.1 2.5 - 4.5 mg/dL [facility] Comment:Result rechecked. Blood specimen (specimen) 12/15/2012 3:50 AM EDT 12/15/2012 10:26 AM EDT Narrative Resulting Agency Comment Spec In Lab Luis E Trotter MD CHEMISTRY ORDERABLES Performing Organization Address [facility] de Phone Number [facility] * Magnesium (12/15/2012 3:50 AM EDT) Magnesium 0.72 0.69 - 1.07 mmol/L [facility] Blood specimen (specimen) 12/15/2012 3:50 AM EDT 12/15/2012 10:26 AM EDT Narrative Resulting Agency Comment Spec In Lab Luis E Trotter MD CHEMISTRY ORDERABLES [facility] * (ABNORMAL) Lactate Dehydrogenase (12/15/2012 3:50 AM EDT) Lactate Dehydrogenase 417(H) 110 - 220 unit/L [facility] Blood specimen (specimen) 12/15/2012 3:50 AM EDT 12/15/2012 4:01 AM EDT Narrative Resulting Agency Comment Spec In Lab Luis E Trotter MD CHEMISTRY ORDERABLES [facility] * (ABNORMAL) Differential, Automated (12/15/2012 3:50 AM EDT) Pathologist [facility] Neutrophil % 68.6 34.0 - 71.0 % [...] Panel (non-fasting) (12/15/2012 3:50 AM EDT) Glucose 109 60 - 199 mg/dL [facility] Comment:Diabetes: >=200 mg/d L plus symptoms Blood Urea Nitrogen 26(H) 8 - 18 mg/dL [facility] Creatinine 2.12(H) 0.70 - 1.20 mg/dL [facility] Comment: Please note that the pediatric reference intervals supplied above were not validated at [facility]. Results from pediatric patients should be interpreted [...] [facility] * (ABNORMAL) CBC (with Diff) (12/15/2012 3:50 [...] MD HEMATOLOGY ORDERABLE S [facility] * IR centeral venous access (12/14/2012 6:05 PM EDT) Anatomical Region Laterality Modality Chest, Vascular X-Ray Angiograph y 12/14/2012 6:05 PM EDT Addenda Addendum on 12/20/2012 5:05 PM EDT Addendum Begins VIR PROCEDURE NOTE ?? ACC#: [id number] ?? PROCEDURE: Non-tunneled right internal jugular triple [...] Addendum Begins VIR PROCEDURE NOTE ?? ACC#: [id number] ?? PROCEDURE: Non-tunneled right internal jugular triple [...] Addendum Begins VIR PROCEDURE NOTE ?? ACC#: [id number] ?? PROCEDURE: Non-tunneled right internal jugular triple [...] Addendum Begins VIR PROCEDURE NOTE ?? ACC#: [id number] ?? PROCEDURE: Non-tunneled right internal jugular triple [...] Catheter ready for use. ?? Resident: James eVntura MD ?? Attending: Dr. Justo MD ?? I, Dr. Kemp, was present throughout the procedure. ?? Film and interpretation reviewed by the attending Narrative 12/17/2012 9:41 AM EDT VIR PROCEDURE NOTE ?? ACC#: [id number] ?? PROCEDURE: Non-tunneled right internal jugular triple [...] MD - 12/20/2012 VIR PROCEDURE NOTE ACC#: [id number] PROCEDURE: Non-tunneled right internal jugular triple lumen [...] Bliss MD IMG IR ORDERABLE S * [id number] Activity (12/14/2012 2:02 PM EDT) [id number] Activity (OCTOBER) 94 >/=70 % [facility] Comment: For research use only. Test Performed by: [place] [address] Proofer Prepress: Tulio Luna III, M.D. [id number] Interpretation (OCTOBER) SEE COMMENTS [facility] Comment: No laboratory evidence of [id number] deficiency. ??A normal [id number] activity level does not completely exclude a clinical diagnosis of thrombotic thrombocytopenic purpura (TTP). ??Recommend clinical correlation. Test Performed by: [place] [address] Proofer Prepress: Tulio Luna III, M.D. Blood specimen (specimen) 12/14/2012 2:02 PM EDT 12/16/2012 8:36 AM EDT Narrative Resulting Agency Comment Spec In Lab Yudith Raya DO LAB SEND OUT OR DERABLES [facility] * Proteinase-3 Antibody (12/14/2012 12:03 PM EDT) Proteinase 3 Antibody 3.5 <=20.0 unit(s) [facility] Blood specimen (specimen) 12/14/2012 12:03 PM EDT 12/16/2012 8:26 AM EDT Narrative Resulting Agency Comment Spec In Lab Luis E Trotter MD IMMUNOLOGY ORDERABLE S Performing Organization Address [facility] Co de Phone Number [facility] * Myeloperoxidase Ab (12/14/2012 12:03 PM EDT) Myeloperoxidase Antibody 3.0 <=20.0 unit(s) [facility]ILLEN[facility] Blood specimen (specimen) 12/14/2012 12:03 PM EDT 12/16/2012 8:26 AM EDT Narrative Resulting Agency Comment Spec In Lab Luis E Trotter MD IMMUNOLOGY ORDERABLE S Performing Organization Address [facility] de Phone Number [facility] * Cytoplasmic Neutrophilic Ab (12/14/2012 12:03 PM EDT) C-Anca (MAY) Negative Negative [facility]ILLENNI[facility] Comment: Test Performed by: [facility] [place] [address] Proofer Prepress: Tulio Luna III, M.D. P-Anca (MAY) Negative Negative [facility] Comment: Negative for cANCA and pANCA patterns by immunofluorescence. Test Performed by: [place] [address] Proofer Prepress: Tulio Luna III, M.D. Blood specimen (specimen) 12/14/2012 12:03 PM EDT 12/16/2012 8:13 AM EDT Narrative Resulting Agency Comment Spec In Lab Luis E Trotter MD LAB SEND OUT ORDERAB LES Performing Organization Address [facility] Co de Phone Number [facility] * Antibody screen (12/14/2012 9:47 AM EDT) Ab Screen Interp Negative CERNER MILLENNIUM Expires at [id number] on: [id number] [facility] MILLENNIUM Blood specimen (specimen) 12/14/2012 9:47 AM EDT 12/14/2012 9:53 AM EDT Narrative Resulting Agency Comment Spec In Lab Luis E Trotter MD BLOOD BANK LAB ORDER VIKAS Performing Organization Address [facility] Co de Phone Number [facility] * ABO/Rh Typing (12/14/2012 9:47 AM EDT) ABORH Type AB Pos CERNER MILLENNIUM Blood specimen (specimen) 12/14/2012 9:47 AM EDT 12/14/2012 9:53 AM EDT Narrative Resulting Agency Comment Spec In Lab Luis E Trotter MD BLOOD BANK LAB ORDER VIKAS Performing Organization Address [facility] de Phone [...] MD HEMATOLOGY ORDERABLE S Performing Organization Address [facility] Co de Phone Number [facility] * Direct antiglobulin test (12/14/2012 9:47 AM EDT) SEN Poly Negative CERNER MILLENNIUM Blood specimen (specimen) 12/14/2012 9:47 AM EDT 12/14/2012 9:53 AM EDT Narrative Resulting Agency Comment Spec In Lab Luis E Trotter MD BLOOD BANK LAB ORDER VIKAS [facility] * Smear Review Report (12/14/2012 5:49 AM EDT) Smear Review Report ? [facility] ? Provider: ?? LUIS E TROTTER ?Pt. Name: ?? ANUM HENRIQUEZ Eliza ? Acc #: ?[id number] ? Pt. ? Col Date: ?? 12/14/2012 [...] S [facility]ILLENNI[facility] * (ABNORMAL) Differential, Automated (12/14/2012 [...] CERNER MILLENNIUM Schistocyte 1-5 /HPF CERNER MILLENNIUM [place] Cells 6-10 /HPF [facility]ERNER MILLENNIUM Blood specimen (specimen) 12/14/2012 5:49 AM EDT 12/14/2012 5:58 AM EDT Narrative Resulting Agency Comment Spec In Lab Luis E Trotter MD HEMATOLOGY ORDERABLE S [facility] * (ABNORMAL) Basic Metabolic Panel (non-fasting) (12/14/2012 5:49 AM EDT) Glucose 113 60 - 199 mg/dL [facility] Comment:Diabetes: >=200 mg/d L plus symptoms Blood Urea Nitrogen 18 8 - 18 mg/dL [facility] MILLENNI[facility] Creatinine 1.74(H) 0.70 - 1.20 mg/dL [facility] Comment: Please note that the pediatric reference intervals supplied above were not validated at [facility]. Results from pediatric patients should be interpreted [...] MD HEMATOLOGY ORDERABLE S Performing Organization Address [facility] Co de Phone Number [facility] * Peripheral Smear Review (12/14/2012 5:49 AM EDT) Peripheral Smear Review See Comment [facility] Comment: When completed by the Pathologist, report [id number] will display under Hematopathology Reports. Blood specimen (specimen) 12/14/2012 5:49 AM EDT 12/14/2012 5:58 AM EDT Narrative Resulting Agency Comment Spec In Lab Luis E Trotter MD HEMATOLOGY ORDERABLE S Performing Organization Address [facility] de Phone Number [facility] * (ABNORMAL) Lactate Dehydrogenase (12/14/2012 2:16 AM EDT) Lactate Dehydrogenase 672(H) 110 - 220 unit/L [facility] Blood specimen (specimen) 12/14/2012 2:16 AM EDT 12/14/2012 2:41 AM EDT Narrative Resulting Agency Comment Spec In Lab Luis E Trotter MD CHEMISTRY ORDERABLES Performing Organization Address [facility] de Phone Number [facility] * Proteinase-3 Antibody (12/13/2012 10:42 PM EDT) Proteinase 3 Antibody 3.7 <=20.0 unit(s) [facility] Blood specimen (specimen) 12/13/2012 10:42 PM EDT 12/17/2012 8:07 AM EDT Narrative Resulting Agency Comment Spec In Lab Luis E Trotter MD IMMUNOLOGY ORDERABLE S Performing Organization Address [facility] Co de Phone Number [facility] * Myeloperoxidase Ab (12/13/2012 10:42 PM EDT) Myeloperoxidase Antibody 3.1 <=20.0 unit(s) [facility] Blood specimen (specimen) 12/13/2012 10:42 PM EDT 12/17/2012 8:07 AM EDT Narrative Resulting Agency Comment Spec In Lab Luis E Trotter MD IMMUNOLOGY ORDERABLE S Performing Organization Address [facility] Phone Number [facility] * Cytoplasmic Neutrophilic Ab (12/13/2012 10:42 PM EDT) Pathologist [facility] C-Anca (OCTOBER) Negative Negative [facility] Comment: Test Performed by: [place] [address] Proofer Prepress: Tulio Luna III, M.D. P-Anca (OCTOBER) Negative Negative [facility] Comment: Negative for cANCA and pANCA patterns by immunofluorescence. Test Performed by: [place] [address] Proofer Prepress: Tulio Luna III, M.D. Blood specimen (specimen) 12/13/2012 10:42 PM EDT 12/17/2012 8:14 AM EDT Narrative Resulting Agency Comment Spec In Lab Luis E Trotter MD LAB SEND OUT ORDERAB LES Performing Organization Address [facility] Number [facility] * Thyroid Stimulating Immunoglobulin (12/13/2012 10:42 PM EDT) [facility] TSI-Gonzáles <1.0 <=1.3 TSI [address] [facility] Comment: Test Performed by: [place] [address] Proofer Prepress: Tulio Luna III, M.D. Blood specimen (specimen) 12/13/2012 10:42 PM EDT 12/17/2012 8:14 AM EDT Narrative Resulting Agency Comment Spec In Lab Luis E Trotter MD IMMUNOLOGY ORDERABLE S Performing Organization Address [facility] Co de Phone Number [facility] * C1 Esterase Inhibitor, Functional (12/13/2012 10:42 PM EDT) [facility] C1 Scarlett Inh Qnt (OCTOBER) >90 % normal [facility] Comment: -- REFERENCE VALUE -- >67 (Normal) 41-67 (Equivocal) <41 (Abnormal) Test Performed by: [address] [address] Proofer Prepress: Tulio Luna III, M.D. Blood specimen (specimen) 12/13/2012 10:42 PM EDT 12/17/2012 8:25 AM EDT Narrative Resulting Agency Comment Spec In Lab Luis E Trotter MD LAB SEND OUT ORDERAB LES Performing Organization Address [facility]/State/ZIP Co de Phone Number [facility] * C4 Complement (12/13/2012 10:42 PM EDT) Complement C4 10 10 - 40 mg/dL [facility] Blood specimen (specimen) 12/13/2012 10:42 PM EDT 12/13/2012 10:54 PM EDT Narrative Resulting Agency Comment Spec In Lab Luis E Trotter MD CHEMISTRY ORDERABLES Performing Organization Address [facility] Co de Phone Number [facility] * (ABNORMAL) C3 Complement (12/13/2012 10:42 PM EDT) Complement C3 64(L) 90 - 180 mg/dL [facility] Blood specimen (specimen) 12/13/2012 10:42 PM EDT 12/13/2012 10:54 PM EDT Narrative Resulting Agency Comment Spec In Lab Luis E Trotter MD CHEMISTRY ORDERABLES Performing Organization Address [facility] Co de Phone Number [facility] * Haptoglobin (12/13/2012 10:42 PM EDT) Haptoglobin <10 30 - 200 mg/dL [facility] Comment: Haptoglobin concentrations in newborns is low to undetectable; however, adult concentrations are usually attained by 4 months of age. ??No sex-related differences for haptoglobin have been detected. Blood specimen (specimen) 12/13/2012 10:42 PM EDT 12/13/2012 10:48 PM EDT Narrative Resulting Agency Comment Spec In Lab Luis E Trotter MD CHEMISTRY ORDERABLES CERNER MILLENNIUM * XR abdomen acute series with PA chest (12/13/2012 10:20 PM EDT) Anatomical Region Laterality Modality Abdomen, Chest N/A Radiographic Oanh ging 12/13/2012 10:2 0 PM EDT Narrative 12/14/2012 10:08 AM EDT Examination ACUTE ABD SERIES WITH PA CHEST Clinical History abdominal pain r/o obstruction or free air Comparison 12/14/2019 545240 hours. Technique Findings There is no interval [...] r/o obstruction or free air Comparison 12/14/2019 [id number] hours. Technique Findings There is no interval [...] Urine Dipstick Clear Clear CERNER MILLENNIUM Specific [place] Urine Automated 1.014 1.002 - 1.030 CERNER [...] Lab Luis E Trotter MD URINE ORDERABLES CERELIO ARCOSENNIUM * Request for 2nd read CT abdomen [...] Metabolic Panel (non-fasting) (12/13/2012 10:00 PM EDT) Pathologist [facility] Glucose 111 60 - 199 mg/dL CERNER MILLENNIUM Comment:Diabetes: >=200 mg/d L plus symptoms Blood Urea Nitrogen 14 8 - 18 mg/dL CERNER MILLENNIUM Creatinine 1.45(H) 0.70 - 1.20 mg/dL CERNER MILLENNIUM Comment: Please note that the pediatric reference intervals supplied above were not validated at [facility]. Results from pediatric patients should be interpreted [...] CERELIO MILLENNIUM * (ABNORMAL) CBC (with Diff) (12/13/2012 [...] Standard Deviation 42.0 35.0 - 46.0 fL CERNER MILLENNIUM RDW coefficient of variation 13.4 10.9 - 14.4 % CERNER MILLENNIUM Mean Platelet Volume 10.5 9.0 - 12.0 fL CERNER MILLENNIUM Blood specimen (specimen) 12/13/2012 10:00 PM EDT 12/13/2012 10:04 PM EDT Narrative Resulting Agency Comment Spec In Lab Luis E Trotter MD HEMATOLOGY ORDERABLE S Performing Organization Address [facility] Co de Phone Number BAR PINEDAIUM * Lactate Dehydrogenase (12/13/2012 10:00 PM EDT) Lactate Dehydrogenase Not Perf 110 - 220 unit/L CERELIO ARCOSENNIUM Comment: Unable to quantitate due to sample hemolysis. ??Sample redraw suggested. called to gianna bowens at 12/13/12 23:00 by lani Blood specimen (specimen) 12/13/2012 10:00 PM EDT 12/13/2012 10:04 PM EDT Narrative Resulting Agency Comment Spec In Lab Luis E Trotter MD CHEMISTRY ORDERABLES Performing Organization Address City/[facility] Co de Phone Number BAR PINEDAIUM * Thrombin time (12/13/2012 10:00 PM EDT) Thrombin Time 19 15 - 20 sec CERELIO ARCOSENNIUM Blood specimen (specimen) 12/13/2012 10:00 PM EDT 12/13/2012 10:04 PM EDT Narrative Resulting Agency Comment Spec In Lab Luis E Trotter MD HEMATOLOGY ORDERABLE S BAR PINEDAIUM * Fibrinogen (12/13/2012 10:00 PM EDT) Fibrinogen 425 175 - 450 mg/dL BAR ARCOSENNIUM Blood specimen (specimen) 12/13/2012 10:00 PM EDT 12/13/2012 10:04 PM EDT Narrative Resulting Agency Comment Spec In Lab Luis E Trotter MD HEMATOLOGY ORDERABLE S Performing Organization Address City/[facility] Co de Phone Number BAR NOE * APTT (12/13/2012 10:00 PM EDT) Partial Thromboplastin Time 27 25 - 35 sec [facility]EL[facility] Comment: Recommended therapeutic PTT range for full dose unfractionated heparin is 80-114 seconds. Blood specimen (specimen) 12/13/2012 10:00 PM EDT 12/13/2012 10:04 PM EDT Narrative Resulting Agency Comment Spec In Lab Luis E Trotter MD HEMATOLOGY ORDERABLE S Performing Organization Address [facility] de Phone Number BAR NOE * (ABNORMAL) Prothrombin Time (12/13/2012 10:00 PM EDT) Prothrombin Time 16.5(H) 12.0 - 15.0 sec BAR PINEDAIUM Comment: [facility] Transfusion Committee Guidelines: INR less than 2.0, PTT less than OR equal to 43.5 seconds, or Fibrinogen greater than or equal to 100 mg/dl indicate adequate procoagulant activity for hemostasis in patients without underlying bleeding disorders. International Normalization Ratio 1.3(H) 0.9 - 1.1 [facility]ELIO ARCOSENNIUM Blood specimen (specimen) 12/13/2012 10:00 PM EDT 12/13/2012 10:04 PM EDT Narrative Resulting Agency Comment Spec In Lab Luis E Trotter MD HEMATOLOGY ORDERABLE S Performing Organization Address [facility] Co de Phone Number BAR NOE * (ABNORMAL) Hepatic Function Panel (12/13/2012 10:00 [...] Trotter MD CHEMISTRY ORDERABLES Performing Organization Address City/[facility]/ZIP Co de Phone Number CERNER MILLENNIUM * (ABNORMAL) Phosphorus (12/13/2012 10:00 PM EDT) Phosphorus 1.4(Critic al) 2.5 - 4.5 mg/dL CERNER MILLENNIUM Comment: Result rechecked. Called by: lani, Read back by: gianna bowens, Date/Time:12/13/12 23:00. Blood specimen (specimen) 12/13/2012 10:00 PM EDT 12/13/2012 10:04 PM EDT Narrative Resulting Agency Comment Spec In Lab Luis E Trotter MD CHEMISTRY ORDERABLES [facility] * (ABNORMAL) Magnesium (12/13/2012 10:00 PM EDT) Magnesium 0.55(L) 0.69 - 1.07 mmol/L CERNER MILLENNIUM Blood specimen (specimen) 12/13/2012 10:00 PM EDT 12/13/2012 10:04 PM EDT Narrative Resulting Agency Comment Spec In Lab Luis E Trotter MD CHEMISTRY ORDERABLES BAR NOE documented in this encounter Visit Diagnoses Not on filedocumented in this encounter Administered Medications Inactive Administered Medications - up to 3 most recent administrations Medication Order MAR Action Action Date Dose Rate Site benzocaine (HURRICANE) 20 % oral spray ONCE PRN, Pain, Starting on Sun12/18/12 at 1643, Until Sun12/27/12 at 2036, For Procedural use. [place] on area for one second. May repeat if necessary. Do not exceed a spray duration of 2 seconds., Intra-Operative (Intra-Procedure) Given 12/18/2012 4:43 PM EDT 1 each fentaNYL 50mcg/mL injection ONCE PRN, Starting on Sun12/18/12 at 1643, Until Sun12/19/12 at 1046, Pain, Intra-Operative (Intra-Procedure), Routine Given [...] dose on Sun12/13/12 at 2130, Until Discontinued, [place] teeth, Routine 0944 (Given - Provider: Alicia [...] 09 (Given - Provider: Erika Tracy RN) 0900 [...] 185 (Given - Provider: Alicia Rodriguez RN) 1816 [...] on Sun12/27/12 at 1019, Until Sun12/27/12 at 203, Pain, Fever, for MILD pain, Do not [...] on Sun12/21/12 at 1223, Until Sun12/27/12 at 203, Agitation, Routine 0242 (Given - Provider: Yeimi Carrasco RN)2145 (Given - Provider: Faby Walton, DRU) morphine 2 mg/mL carpuject 2 mg (CANCELED)(Linked [...] on Sun12/25/12 at 1451, Until Sun12/27/12 at 2036, Pain, moderate pain, May give 2 mg in 30 minutes times 1 if pain not relieved., Routine Or morphine 2 mg/mL carpuject 6 mg (CANCELED) 6 mg, Intravenous, EVERY 3 HOURS PRN, Starting on Sun12/25/12 at 1451, Until Sun12/27/12 at 2036, Pain, May give 2 mg in 30 [...] Routine documented in this encounter Care Teams Supervisor Reactor Fueling Relationship Specialty Start Date End Date Bakari Costello APRN [address] [address] PCP - General 12/13/12 01/12/13 documented as of this encounter
--- OUTSIDE RECORDS SUMMARY | 2024-02-04 13:25 | XMS_ITS | Encounter Summary ---
[place] [address] Care Team Providers Care Chicken Hanger Name Role Phone Ofelia Costello APRN Primary Care Provider Encounter Details Date Type Department Care Team (Late st Contact Info) Description 12/10/2012 [place] [address] [place] [address] Social History Tobacco Use Types Packs/Day Years [...] is a non-reportable exam. Procedure Note Noel oJrdan - 07/31/2013 This is a non-reportable exam. Ant Mendoza MD [facility] [place]M LIBRARY ORD ERABLES documented in this encounter Visit Diagnoses Not on filedocumented in this encounter Care Teams Chicken Hanger Relationship Specialty Start Date End Date Ofelia Costello APRN [address] [address] PCP - General 12/13/12 01/12/13 documented as of this encounter
--- OUTSIDE RECORDS SUMMARY | 2024-02-04 13:25 | XMS_ITS | Encounter Summary ---
Author Organization [facility] Address [facility] [place] [address] Care Team Providers Care Modeling And Simulation Analyst Name Role Phone Jason Davila MD Primary Care Provider [phone] Encounter Details Date Type Department Care Team (Late st Contact Info) Description 12/14/2012 Orders [place] [address] Robin Cheng MD [facility] [place] [address] TTP (thrombotic thrombocytopenic purpura) (Primary Dx) Social [...] microangiopathy documented in this encounter Care Teams Modeling And Simulation Analyst Relationship Specialty Start Date End Date Jason Davila MD [address] [place] [address] [address] [place] [id number] PCP - General 01/13/13 12/09/23 marilyn noble Consulting Physician Gastroenterology 01/13/13 documented as of this encounter
--- OUTSIDE RECORDS SUMMARY | 2024-02-04 13:25 | XMS_ITS | Encounter Summary ---
Author [place] [address] Care Team Providers Care Associate Professor Of Surgery Name Role Phone Ofelia Costello APRN Primary Care Provider [phone] Encounter Details Date Type Department Care Team (Late st Contact Info) Description 12/13/2012 [place] [address] [place] [address] Social History Tobacco Use Types Packs/Day Years [...] is a non-reportable exam. Ant Mendoza MD [facility] FILM LIBRARY ORD ERABLES documented in this encounter Visit Diagnoses Not on filedocumented in this encounter Care Teams Associate Professor Of Surgery Relationship Specialty Start Date End Date Ofelia Costello APRN [address] [address] PCP - General 12/13/12 01/12/13 documented as of this encounter
--- OUTSIDE RECORDS SUMMARY | 2024-02-04 13:25 | XMS_ITS | Encounter Summary ---
Author Organization [facility] [place] [address] Care Team Providers Care Vessel Crew Member Name Role Phone Ofelia Costello APRN Primary Care Provider [phone] Encounter Details Date Type Department Care Team (Late st Contact Info) Description 12/15/2012 External Results XRay at [address] [place] [address] Provider, Scanning Social History Tobacco Use Types [...] on filedocumented in this encounter Care Teams Vessel Crew Member Relationship Specialty Start Date End Date Ofelia Costello APRN [address] [address] PCP - General 12/13/12 01/12/13 documented as of this encounter
--- OUTSIDE RECORDS SUMMARY | 2024-02-04 13:25 | XMS_ITS | Encounter Summary ---
Author Organization [facility] [place] [address] Care Team Providers Care Ski Production Supervisor Name Role Phone Adolph Deshpande MD Primary Care Provider [phone] Reason for Visit * Reason Comments Medication Refill Encounter Details Date Type Department Care Team ([facility] st Contact Info) Description 01/22/2011 Refill [place] [address] Tyson Connolly MD [facility] [place] [address] Social History Tobacco Use Types Packs/Day Years [...] on filedocumented in this encounter Care Teams Ski Production Supervisor Relationship Specialty Start Date End Date Adolph Deshpande MD [address] [place] [id number] PCP - General 05/03/10 12/12/12 documented as of this encounter
--- OUTSIDE RECORDS SUMMARY | 2024-02-04 13:25 | XMS_ITS | Encounter Summary ---
[place] [address] Care Team Providers Care Mica Builder Name Role Phone Ofelia Costello APRN Primary Care Provider [phone] Encounter Details Date Type Department Care Team (Late st Contact Info) Description 12/10/2012 [place] [address] [place] [address] Social History Tobacco Use Types Packs/Day Years [...] is a non-reportable exam. Ant Mendoza MD [facility] FILM LIBRARY ORD ERABLES documented in this encounter Visit Diagnoses Not on filedocumented in this encounter Care Teams Mica Builder Relationship Specialty Start Date End Date Ofelia Costello APRN [address] [address] PCP - General 12/13/12 01/12/13 documented as of this encounter
--- OUTSIDE RECORDS SUMMARY | 2024-02-04 13:25 | XMS_ITS | Continuity of Care Document ---
[facility] Address [address] [place] [address] Assessment No assessment recorded. Plan of Treatment [...] By Organization Details Last Modified Time 12/26/2023 [id number] specimen collection & handling* [email or web address] Not available 12/26/2023 12:24:12 Reason for Referral Service Representative Referral fo r Acute tonsillitis Recurrent purulent d/c from left tonsil. Hx of tonsil stones, please assess Referring Physician: Arielle Back, Family Medicine, Encounter Date: 07/18/2023 Results Created Date Observation Date Name Description Value Unit Range Abnormal Flag LastModifiedBy Organization Detail LastModifiedTime 12/26/19 24 12/26/2023 speci men colle ction & handl ing* Specimen collection and handling performed today: Yes Not Available [facility] [address] [facility] [address], [place], [address], 12/26/2023 11:22:02 12/11/19 24 12/10/2023 exerc ismagen oro s test No observ ation record ed. [email or web address] [facility] , [place], [address], 12/12/2023 06:07:52 12/14/19 24 12/14/2023 exerc ise stres s test No observ ation record ed. BONITA Not Available 12/18/2023 17:28:42 02/01/20 24 02/01/2024 mg mammo [place] bilat -M2 HISTOR Y: Vasu pham is 63 years old and is being seen for screen ing. The vasu pham has no person al histor y of cancer . The vasu pham has no family histor y of breast cancer . FILMS COMPAR ED: The keila pham examin atkyung has been compar ed to prior imagin g studie s perfor med at [facility] on 2021 and [...] MONALISA FERRARA M.D. on 2023 15:10: [email or web address] [place] [address] [address], [place], [address], 02/01/2024 16:13:06 Result Notes None recorded. Problems [...] Code Type: ICD-10; MD [address], [place], [address] , [facility] 4 12:08:36 Psychophysiol ogic insomnia Active 201202/25/2020 - Comments only - Rebecca Vee MD - Can continue as needed zolpidem Problem Code: F51.04; Problem Code Type: ICD-10; Not Available [facility] 3 04:02:47 Low back pain Active 2014 Problem Code: M54.5; Problem Code Type: ICD-10; Not Available [facility] 3 04:02:47 Palpitations Active 201401/11/2018 - Comments only - Rebecca Vee MD - Sound like benign PACs or PVCs. Minimally symptomatic. No testing needed. Problem Code: R00.2; Problem Code Type: ICD-10; Not Available [facility] 3 04:02:47 Presbycusis Active 2014 Problem Code: H91.13; Problem Code Type: ICD-10; Not Available [facility] 3 04:02:47 Thrombotic microangiopat hy Completed 201410/15/2023 02/19/2019 - Comments only - Rebecca Vee MD - We will continue to follow her renal function long-term because of this history. Problem Code: M31.1; Problem Code Type: ICD-10; MD [address], [place], [address] , [facility] 4 12:08:24 Thromboemboli sm of vein Completed 201410/15/2023 Problem Code: I82.90; Problem Code Type: ICD-10; MD [address], [place], [address] , [facility] 4 12:08:31 Cardiomyopath y Completed 08/03201410/15/2023 02/25/2020 - Comments only - Rebecca Vee MD - This had resolved but we do surveillance every few years. She will get an echo at the start of the new year. There is nothing else to suggest that HF is the cause of her fatigue. Problem Code: I42.9; Problem Code Type: ICD-10; REBECCA VEE MD [address], [place], [address] , [facility] 4 12:07:55 Adult health examination Active 201403/13/2022 - Comments only - Rebecca Vee MD - Pap sent. She can only another month before getting her boosters. Problem Code: Z00.00; Problem Code Type: ICD-10; Not Available [facility] 3 04:02:48 Dysuria Completed 201506/15/2015 Problem Code: R30.0; Problem Code Type: ICD-10; Not Available [facility] 3 04:02:48 Urinary tract infectious disease Completed 201506/28/2015 Problem Code: N39.0; Problem Code Type: ICD-10; Not Available [facility] 3 04:02:48 Cervical radiculopathy Active 201602/19/2019 - [...] M54.12; Problem Code Type: ICD-10; Not Available [facility] 3 04:02:48 Inflamed seborrheic keratosis Completed 201610/02/2017 04/05/2017 - Comments only - Cody Sahni PA-C - Irritated seborrheic keratosis. Treated with cryotherapy standard fashion 3 freeze thaw cycles. Recheck if this does not fall off. Sooner if needed. Problem Code: L82.0; Problem Code Type: ICD-10; Not Available [facility] 3 04:02:48 Abdominal colic Completed 201703/14/2023 Problem Code: R10.83; Problem Code Type: ICD-10; Not Available [facility] 4 05:35:48 Idiopathic osteoarthriti s Active 2018 Problem Code: M18.11; Problem Code Type: ICD-10; Not Available [facility] 3 04:02:48 Lesion of right ulnar nerve Active 2018 Problem Code: G56.21; Problem Code Type: ICD-10; Not Available [facility] 3 04:02:49 Acute frontal sinusitis Completed 201804/23/2019 04/02/2019 - Comments only - Rebecca Vee MD - Because of the duration I am going to treat her with high-dose amoxicillin for 1 week. Continue efforts at drainage. Problem Code: J01.10; Problem Code Type: ICD-10; Not Available [facility] 3 04:02:49 Chest pain Completed 201806/28/2019 [...] R07.89; Problem Code Type: ICD-10; Not Available [facility] 3 04:02:49 Trochanteric bursitis of left hip Completed 202010/15/2023 02/09/2021 - Comments only - Rebecca Vee MD - Suggested she try taking 1 Aleve every evening Problem Code: M70.62; Problem Code Type: ICD-10; REBECCA VEE MD [address], [place], [address] , [facility]. 4 12:08:39 Pre-surgery evaluation Completed 202002/10/2021 02/09/2021 [...] Z01.818; Problem Code Type: ICD-10; Not Available [facility] 3 04:02:49 Bradycardia Active 202002/09/2021 - Comments only - Rebecca Vee MD - Twelve-lead EKG shows normal rate, normal conduction, no bundle-branch block. She cannot identify precipitants like stress or pain that would suggest increased vagal tone. And then get a 14-day CO because this is still, check Lyme serology, basic labs. Problem Code: R00.1; Problem Code Type: ICD-10; Not Available [facility] 3 04:02:49 Adult health examination Completed 202005/03/2021 Problem Code: Z00.00; Problem Code Type: ICD-10; Not Available [facility] 3 04:02:50 Acute conjunctiviti s Completed 202110/15/2023 Problem Code: H10.30; Problem Code Type: ICD-10; MD [address], [place], [address] , [facility] 4 12:07:47 Squamous cell carcinoma of skin Completed 202110/15/2023 Problem Code: C44.92; Problem Code Type: ICD-10; MD [address], [place], [address] , [facility] 4 12:08:20 COVID-19 Completed 202110/15/2023 03/13/2022 - Comments only - Rebecca Vee MD - Reason: It was mild Problem Code: U07.1; Problem Code Type: ICD-10; MD [address], [place], [address] , [facility] 4 12:07:59 Peritonsillar abscess Completed 202102/23/2022 02/09/2022 - Comments only - Rebecca Vee MD - History and her age but she is pretty symptomatic in the adenitis is impressive. He we will treat with amoxicillin and gargles. Problem Code: J36; Problem Code Type: ICD-10; Not Available [facility] 3 04:02:50 Pain in throat Completed 202103/14/2023 Problem Code: R07.0; Problem Code Type: ICD-10; Not Available [facility] 4 05:35:47 Nausea Completed 202211/24/2022 Problem Code: R11.0; Problem Code Type: ICD-10; Not Available [facility] 3 04:02:51 Noninfectious gastroenterit is Completed 202212/08/2022 [...] because of the colitis symptoms. Not Available [facility] 3 04:02:51 Adjustment disorder Completed 201405/13/2015 Problem Code: F43.20; Problem Code Type: ICD-10; Not Available [facility] 3 04:02:54 Chronic kidney disease Completed 201412/07/2015 Problem Code: N18.9; Problem Code Type: ICD-10; Not Available [facility] 3 04:02:54 Chest pain Completed 201405/13/2015 Problem Code: R07.9; Problem Code Type: ICD-10; Not Available [facility] 3 04:02:54 Graves' disease Completed 201203/07/2023 Not Available [facility] 3 04:02:54 Fracture at wrist and/or hand level Completed 201205/13/2015 Not Available [facility] 3 04:02:55 Hemorrhoids Completed 201205/13/2015 Not Available [facility] 3 04:02:55 Pleuritic pain Completed 201902/23/2020 Problem Code: R07.81; Problem Code Type: ICD-10; Not Available [facility] 3 04:02:55 Acute sinusitis Completed 201405/19/2015 Problem Code: J01.90; Problem Code Type: ICD-10; Not Available [facility] 3 04:02:55 Constipation Completed 201201/11/2018 Not Available [facility] 3 04:02:56 Tear film insufficiency Completed 201405/13/2015 Problem Code: H04.129; Problem Code Type: ICD-10; Not Available [facility] 3 04:02:56 Pruritus ani Completed 201205/13/2015 Problem Code: 698.0; Problem Code Type: ICD-9; Not Available [facility] 3 04:02:56 Sinusitis Completed 201205/13/2015 Not Available [facility] 3 04:02:56 Tinnitus Completed 201403/07/2023 Problem Code: H93.19; Problem Code Type: ICD-10; Not Available [facility] 3 04:02:57 Basal cell carcinoma of [...] C44.91; Problem Code Type: ICD-10; Not Available [facility] 3 04:02:57 Hyperthyroidi sm Completed 201205/13/2015 Not Available [facility] 3 04:02:57 Shoulder joint pain Completed 201405/13/2015 Problem Code: M25.519; Problem Code Type: ICD-10; Not Available [facility] 3 04:02:58 Motion sickness Completed 201405/13/2015 Problem Code: T75.3; Problem Code Type: ICD-10; Not Available [facility] 3 04:02:58 Family history of Arthritis Completed 201205/13/2015 Problem Code: V17.7; Problem Code Type: ICD-9; Not Available [facility] 3 04:02:58 Insomnia Completed 201203/07/2023 Not Available [facility] 3 04:02:58 Hyperlipidemi a Completed 201205/13/2015 Problem Code: 272.4; Problem Code Type: ICD-9; Not Available [facility] 3 04:02:58 Heart failure Completed 201403/07/2023 Problem Code: I50.9; Problem Code Type: ICD-10; Not Available [facility] 3 04:03:00 Closed fracture of distal end of radius Completed 201205/13/2015 Problem Code: 813.42; Problem Code Type: ICD-9; Not Available [facility] 3 04:03:00 Asthma Completed 200605/13/2015 Problem Code: 493.90; Problem Code Type: ICD-9; Not Available [facility] 3 04:03:00 Hypoxia Completed 201405/13/2015 Problem Code: R09.01; Problem Code Type: ICD-10; Not Available [facility] 3 04:03:00 Chronic salpingitis Completed 201405/13/2015 Problem Code: N70.11; Problem Code Type: ICD-10; Not Available [facility] 3 04:03:00 Accident caused by needle Completed 201405/13/2015 Not Available [facility] 3 04:03:01 Acute pharyngitis Completed 202204/10/2023 Problem Code: J02.9; Problem Code Type: ICD-10; Not Available [facility] 4 05:35:44 Pneumonia Completed 202204/10/2023 04/02/2023 - Comments only - Arielle Back SOCIAL SECRETARY - Diagnosed by [facility], Anum continues to feel lousy despite day 7 of Augmentin. Will check chest xray and proceed accordingly. Recommend finish all abx, push fluids and take it easy. RTC INI or feelng worse Problem Code: J18.9; Problem Code Type: ICD-10; Not Available [facility] 4 05:35:45 Acute tonsillitis Completed 202310/15/[address], [facility] [address] , [facility] 4 12:07:40 Pain in right foot Active [address], [facility] [address] , [facility] 4 12:26:32 Adjustment disorder with anxious mood Active [address], [facility] [address] , [facility] 4 16:08:15 Diarrhea Active [address], [facility] [address] , [facility] 4 10:36:18 Preseptal cellulitis Active [address], [place], [address] , [facility] 4 07:57:58 Menopausal symptom Active 2023 REBECCA VEE MD [address], [place], [address] , [facility]. 4 11:52:09 Problem Notes None recorded. Medical Equipment None Reported. Allergies Allergen ID Allergen Name Allergen Category Reaction Reaction Severity Criticality Documentation Date Start Date Code Code System Note Provider Name and Address Organization Details Recorded Time 57537 doxycycli ne monohydra te medicatio n vomiting moderate Not available 04/20/2023201612 2 RxNorm GI Issue s (N/V) Aller gyRea ction : 'GI Issue s (N/V) '; Not Available [facility] 3 16:22:22 83524 erythromy ibeth medicatio n vomiting moderate Not available 04/20/20232012 4053 RxNorm GI Issue s (N/V) Aller gyRea ction : 'GI Issue s (N/V) '; Aller gyCod e: '3680 43384 64'; Aller gyNam e: 'ERYT HROMY IBETH'; Aller gyCon ceptT ype: 'NDC' ; Not Available [facility] 3 16:22:22 Medications Name Sig Start [...] Stomach CA Mother Family history of ac gambell medical disorder GERD Mother Family history of malignant neoplasm of skin GERD Brother Family history of he art failure Notes:*Problem: FAMILY HX: F solomon is stomach cancer, CAD. She had a brother who at 44 from CAD/NM. Medical History No medical history recorded. Gynecological HistoryNo gynecological history recorded. Obstetrics History GPAL:G 0 P 0 0 0 0 Immunizations Vaccine Type Date Status Provider Name and Address Organization Details Recorded Time Tdap 10/03/2019 completed Not Available [facility] 05:19:55 Tdap 03/10/2009 completed Not Available [facility] 05:19:55 zoster live 05/10/2015 completed Not Available [facility] 04/20/2023 05:19:56 Influenza, split virus, quadrivalent, PF 03/13/2022 completed Not Available [facility] 04/20/2023 05:19:56 Influenza, split virus, quadrivalent, PF 03/17/2020 completed Not Available [facility] 04/20/2023 05:19:56 Influenza, split virus, quadrivalent, PF 03/24/2021 completed Not Available [facility] 04/20/2023 05:19:56 zoster recombinant 11/20/2017 completed Not Available [facility] 04/20/2023 05:19:57 zoster recombinant 03/29/2018 completed Not Available [facility] 04/20/2023 05:19:57 COVID-19, mRNA, LNP-S, PF, 100 mcg/0.5mL dose or 50 mcg/0.25mL dose 07/05/2020 completed Not Available [facility] 04/20/20 05:19:58 COVID-19, mRNA, LNP-S, PF, 100 mcg/0.5mL dose or 50 mcg/0.25mL dose 04/11/2021 completed Not Available [facility] 04/20/20 05:19:58 COVID-19, mRNA, LNP-S, PF, 100 mcg/0.5mL dose or 50 mcg/0.25mL dose 06/08/2020 completed Not Available [facility] 04/20/20 05:19:58 SARS-COV-2 (COVID-19) vaccine, UNSPECIFIED 04/21/2022 completed Not Available [facility] 04/20/2023 05:19:59 Hep B, unspecified formulation 09/07/2009 completed Not Available [facility] 04/20/2023 05:19:59 Hep B, unspecified formulation 03/10/2009 completed Not Available [facility] 04/20/2023 05:20:00 Hep B, unspecified formulation 04/12/2009 completed Not Available [facility] 04/20/2023 05:20:00 Hep A, adult 10/03/2019 completed Not Available [facility] 04/20/2023 05:20:00 influenza, unspecified formulation 03/09/2014 completed Not Available [facility] 04/20/2023 05:20:00 influenza, unspecified formulation 03/24/2019 completed Not Available [facility] 04/20/2023 05:20:00 influenza, unspecified formulation 03/28/2017 completed Not Available [facility] 04/20/2023 05:20:00 influenza, unspecified formulation 04/19/2018 completed Not Available [facility] 04/20/2023 05:20:00 influenza, unspecified formulation 05/02/2016 completed Not Available [facility] 04/20/2023 05:20:00 Influenza, high-dose, quadrivalent, PF 04/23/2023 completed Not Available [facility] 06/22/2023 05:31:13 Past Encounters Encounter ID Performer Location Encounter Start Date Encounter Closed Date Diagnosis/Indication Diagnosis SNOMED-CT Code [id number] KEVYN THACKER [address] [address] 12/26/2023 11:21:14 12/26/2023 12:40:22 Diarrhea [id number] Health Concerns Section Related Observation LastModified by Organization Detai ls LastModified Time None Recorded Concern Status LastModified by Organization Details LastModified Time None Recorded Payers Encounter Date Sequence Insurance Name Policy Number Policy Roman Covered Member ID Roman Member ID Guarantor Name 12/26/2023 1 [id number]IC[place]/ [place]ANTAGE - PPO) [id number] Anum Henriquez [id number] Anum Henriquez OBGyn Episode No OBEpisode recorded.
[2024-02-04 19:43] LABS: ALT 41 U/L (14-59); AST 34 U/L (15-37); Albumin 3.8 g/dL (3.4-5.0); Alkaline Phosphatase 76 U/L (46-116); Bilirubin, Direct 0.1 mg/dL (0.0-0.2); Bilirubin, Total 0.35 mg/dL (0.2-1.0)
== END 2024-02-04 13:19 | disposition home or self-care (01) ==
LOC: NCHCN 13:18
PROVIDERS: PCP Internal Medicine; Visit Provider Internal Medicine
DX: Z79.899 Other long term (current) drug therapy (principal)
CPT/HCPCS: 80076

== ENCOUNTER 2024-04-04 12:21 | Outpatient (REF) | payer MEDICARE, SELFPAY ==
--- OUTSIDE RECORDS SUMMARY | 2024-04-04 12:23 | XMS_ITS | Encounter Summary ---
Author Organization [facility] Address [address] [place] [address] Care Team Providers Care Motor Driver Name Role Phone Kemal Vee MD Primary Care Provider [phone] Encounter Details Date Type Department Care Team (Late st Contact Info) Description 12/27/2023 Lab Requisition [facility] Pathology & Laboratory Medicine - [facility] [address] [place] [address] Outr Resulting Lab, Provider Social History Tobacco [...] Neg and Giardia Antigen Neg 13:53 EDT [facility] Feces SPECIMEN FROM RECTUM / Unknown 12/26/2023 11:10 EDT 12/27/2023 17:03 EDT Provider Outr Resulting Lab MICROBIOLOGY - GENERAL ORDERABLES [facility] [address] [place] [address] * FECAL BACTERIAL PATHOGENS BY PCR (12/26/2023 11:10 EDT) Salmonella PCR Negative Negative 12/27/2023 23:30 EDT [facility] Shigella/Enteroin vasive E. coli Negative Negative 12/27/2023 23:30 EDT [facility] HN LAB CAMPYLOBACTER PCR Negative Negative 12/27/2023 23:30 EDT [facility] Shiga Toxin PCR Negative Negative 23:30 EDT [facility] Feces SPECIMEN FROM RECTUM / Unknown 12/26/2023 11:10 EDT 12/27/2023 17:03 EDT Provider Outr Resulting Lab MICROBIOLOGY - GENERAL ORDERABLES Performing Organization Address [facility] Co de Phone Number [facility] [address] [place] [address] * OVA/PARASITE EXAM (12/26/2023 11:10 EDT) Parasite No ova and parasites seen. 12/30/2023 14:16 EDT [facility] Feces SPECIMEN FROM RECTUM / Unknown 12/26/2023 11:10 EDT 12/27/2023 17:36 EDT Narrative [facility] - 12/30/2023 14:16 EDT (If Cryptosporidium, Cyclospora, or Microsporidium are suspected, specific tests must be requested.) Single negative specimen does not rule out the possibility of a parasitic infection. Provider Outr Resulting Lab MICROBIOLOGY - GENERAL ORDERABLES Performing Organization Address City/[facility]/ZIP Co de Phone Number [facility] [address] [place] [address] documented in this encounter Visit Diagnoses Not on filedocumented in this encounter Care Teams Motor Driver Relationship Specialty Start Date End Date Kemal Vee MD [address] [place] [address] PCP - General 09/09/21 documented as of this encounter
--- OUTSIDE RECORDS SUMMARY | 2024-04-04 12:23 | XMS_ITS | Encounter Summary ---
Author Organization [facility] Address [address] [place] [address] Care Team Providers Care Heavy Duty Mechanic Farm Equipment Name Role Phone Kemal Vee MD Primary Care Provider Encounter Details Date Type Department Care Team (Late st Contact Info) Description 10/13/2021 Lab Requisition [facility] Pathology & Laboratory Medicine - [facility] [address] [place] [address] Kemal Vee MD [address] [place] [address] Encounter for other general examination [...] management options, if applicable. 10/14/2021 14:20 EDT [facility] Final Diagnosis A. SKIN OF CHEST LEFT EXCISION: - Squamous cell carcinoma, well differentiated, superficially invasive. - Margins negative for squamous cell carcinoma (in the plane the complete sections examined). 10/14/2021 14:20 [facility] Attestation By the signature below, the attending physician certifies that they have 1) personally conducted a gross and/or microscopic examination of the described specimen(s), and/or personally interpreted the results of laboratory testing of the described specimen(s), and 2) personally rendered or confirmed the above diagnosis. 10/14/2021 14:20 [facility] at 1420 Microscopic [...] Deeper sections have similar features. 10/14/2021 14:20 [facility] Clinical History BCC; DDx: BCC, SCC, keratinized skin tag 10/14/2021 14:20 [facility] Gross Description A. [...] face. DESHAUN MUSA(ASCP) 10/13/2021 18:45 10/14/2021 14:20 [facility] Performing Lab [facility] 10/14/2021 14:20 [facility] Scanned Images 10/14/2021 14:20 [facility] Tissue TISSUE SPECIMEN FROM SKIN / Unknown 10/12/2021 17:00 EDT 10/13/2021 17:16 EDT Kemal Vee MD PATHOLOGY ORDERABLES [facility] [address] [place] [address] documented in this encounter Visit Diagnoses Diagnosis Encounter for other general examination documented in this encounter Care Teams Heavy Duty Mechanic Farm Equipment Relationship Specialty Start Date End Date Kemal Vee MD [address] [place] [address] PCP - General 09/09/21 documented as of this encounter
--- OUTSIDE RECORDS SUMMARY | 2024-04-04 12:23 | XMS_ITS | Encounter Summary ---
[place] [address] Care Team Providers Care Sales Appointment Coordinator Name Role Phone Kemal Vee MD Primary Care Provider Reason for Referral * Diagnostic Test (Routine) - Pending Review Specialty Diagnoses / Procedures Referred By Phan pham Referred To Contact Cardiology Diagnoses Chest pain, unspecified type Procedures Stress Test, Exercise (Treadmill) Kemal Vee MD [address] [place] [address] [address] [facility] [place] [address] Referral ID Status Reason Start Date Expiration Date Visits Requested Visits Authorized [id number] Pending Review Specialty Service Requested 10/16/2023 10/15/2024 1 1 Reason for Visit * Diagnostic Test (Routine) - Pending Review Specialty Diagnoses / Procedures Referred By Contjodi pham Referred To Contact Cardiology Diagnoses Chest pain, unspecified type Procedures Stress Test, Exercise (Treadmill) Kemal Vee MD [address] [place] [address] [facility] [place] [address] Referral ID Status Reason Start Date Expiration Date Visits Requested Visits Authorized [id number] Pending Review Specialty Service Requested 10/16/2023 10/15/2024 1 1 Encounter Details Date Type Department Care Team (Latest Contact Info) Description 12/10/2023 1:29 PM EDT - 12/10/2023 11:59 PM EDT Hospital Encounter [place] [address] Kemal Vee MD [address] [place] [address] Chest pain, unspecified type Discharge Disposition: Home [...] Dispensed Refills Start Date End Date OMEGA 9-JWE-HLU-FISH OIL ORALIndications:History of TTP (thrombotic thrombocytopenic purpura) [...] type documented in this encounter Care Teams Sales Appointment Coordinator Relationship Specialty Start Date End Date Kemal Vee MD [address] [place] [address] PCP - General General Internal Medicine 12/10/23 marilyn nobel Consulting Physician Gastroenterology 01/13/13 documented as of this encounter
--- OUTSIDE RECORDS SUMMARY | 2024-04-04 12:23 | XMS_ITS | Encounter Summary ---
Author Organization [facility] Address [address] [place] [address] Care Team Providers Care Printing Plate Clerk Name Role Phone Kemal Vee MD Primary Care Provider [phone] Encounter Details Date Type Department Care Team (Late st Contact Info) Description 02/10/2021 Lab Requisition [facility] Pathology & [place] [address] Outr Resulting Lab, Provider Social History Tobacco [...] Lyme Ab Negative Negative 02/11/2021 11:26 EDT [facility] Blood VENOUS BLOOD / Unknown 02/09/2021 14:30 EDT 02/10/2021 16:30 EDT Provider Outr Resulting Lab IMMUNOLOGY A ND SEROLOGY ORDERABLES [facility] [address] [place] [address] documented in this encounter Visit Diagnoses Not on filedocumented in this encounter Care Teams Printing Plate Clerk Relationship Specialty Start Date End Date Kemal Vee MD [address] [place] [address] PCP - General 09/09/21 documented as of this encounter
--- OUTSIDE RECORDS SUMMARY | 2024-04-04 12:23 | XMS_ITS | Encounter Summary ---
Author Organization [facility] Address [address] [place] [address] Care Team Providers Care Steel Pourer Helper Name Role Phone Kemal Vee MD Primary Care Provider [phone] Encounter Details Date Type Department Care Team (Late st Contact Info) Description 11/24/[address] [facility] Pathology & Laboratory Medicine - [address] [address] Outr Resulting Lab, Provider Social History Tobacco [...] Salmonella PCR Negative Negative 11/25/2022 14:17 EDT [facility] Shigella/Enteroin vasive E. coli Negative Negative 11/25/2022 14:17 EDT [facility] HN LAB CAMPYLOBACTER PCR Negative Negative 11/25/2022 14:17 EDT [facility] Shiga Toxin PCR Negative Negative 14:17 EDT [facility] Feces SPECIMEN FROM RECTUM / Unknown 11/23/2022 11:00 EDT 11/24/2022 21:25 EDT Provider Outr Resulting Lab MICROBIOLOGY - GENERAL ORDERABLES [facility] [address] [place] [address] documented in this encounter Visit Diagnoses Not on filedocumented in this encounter Care Teams Steel Pourer Helper Relationship Specialty Start Date End Date Kemal Vee MD [address] [place] [address] PCP - General 09/09/21 documented as of this encounter
--- OUTSIDE RECORDS SUMMARY | 2024-04-04 12:23 | XMS_ITS | Clinical Summary ---
Author Organization [facility] Address [facility] [place] [address] Care Team Providers Care Station Installation Supervisor Name Role Phone Kemal Vee MD Primary Care Provider [phone] Allergies Active Allergy Reactions Criticality Noted Date [...] daily. 30 tablet 12 01/03/2013 Active OMEGA 3-YCV-BHR-FISH OIL ORALIndications:History of TTP (thrombotic thrombocytopenic purpura) [...] 12/14/2012 CIS - ophthalmopathy, graves 12/06/2009 12/14/2012 Immunizations Name Administration Dates Next Due Influenza [...] year) with FIT yearly 1960 Sigmoidoscopy 1960 Tetanus/Diphtheria/Pertussis Vaccines (1 - Tdap) 1977 HPV test 02/28/1988 PAP Smear 02/28/1988 Breast Cancer Share Decision Needed 1998 Breast Cancer screening 1998 Zoster vaccine (1 of 2) 02/28/2008 Advance Directive 2013 Bone Density Scan 2023 Pneumoccocal Vaccine: 65+ (1 of 1 - PCV) 2023 Covid-19 Vaccine (3 - 2022-24 season) 2024, 06/08/2020 Influenza (Flu) vaccine (1 o f 1 - Influenza standard series) 02/10/2024 03/11/2012 Hepatitis C Screening Completed 12/17/2012 Procedures Procedure Name Priority Date/Time Associated Diagnosis Comments HEPATITIS C ANTIBODY Routine 12/17/2012 6:49 PM EDT from Last 3 Months or Most Recently Relevant to Health Maintenance Results * Hepatitis C Antibody (12/17/2012 6:49 PM EDT) Hepatitis C Antibody Negative Negative BAR NOE Blood specimen (specimen) 12/17/2012 6:49 PM EDT 12/17/2012 7:03 PM EDT Narrative Resulting Agency Comment Spec In Lab Fabi Romero MD CHEMISTRY ORDERA BLES CERNER MILLENNIUM from Last 3 Months or Most Recently [...] is based on Patients wishes. Care Teams Station Installation Supervisor Relationship Specialty Start Date End Date Kemal Vee MD [address] [place] [address] PCP - General General Internal Medicine 12/10/23 marilyn noble Consulting Physician Gastroenterology 01/13/13
--- OUTSIDE RECORDS SUMMARY | 2024-04-04 12:23 | XMS_ITS | Continuity of Care Document ---
Author Organization [facility] Address [address] [place] [address] Care Team Providers Care Content Strategy Lead Name Role Phone REBECCA DAVIES Primary Care Physician Encounter [facility] NBR [id number] Date(s): 03/21/24 - 03/21/24 [facility] [address] [place] [address]- [place] Encounter Diagnosis Bilateral sensorineural hearing loss(Discharge Diagnosis) - 03/21/24 Discharge Disposition: Home or Self Care Attending Physician: Anthony Wiggins Referring Physician: REBECCA DAVIES Assessment and Plan Extracted from: Title:Hearing evaluation and hearing aid verification Author:Anthony Wiggins Date:03/21/24 1.??Bilateral sensorineural hearing loss??H90.3 Today's results reveal normal sloping to severe sensorineural hearing loss bilaterally.?? Excellent speech discrimination ability in the right ear, good in the left ear at elevated levels. ??Switched from??verified VAC plus fitting formula targets to DSL V5 adult fitting formula targets??as patient??continues to request increased audibility above prescription settings bilaterally.?? Today's results objectively show increased audibility compared to previous results as well as??per patient subjective report. Recommend annual hearing evaluation, or sooner should patient notice any change in??hearing, aural pressure, otalgia, tinnitus, or vertigo.?? Patient to notify department should she have any concerns with hearing aids. ??Should patient have difficulty tolerating earmolds recommend referral??to??audiology provider??for earmold remake. ??Unfortunately I will be resigning??effective March 21 unsure timeline [facility] will be able to find??provider. Future Appointments Problem List Condition Confirmation Course Effective Dates Status H ealth Status Informant Bilateral sensorineural hearing loss Confirmed Active Note * Cristal Batista: PERFORM Event Display: Hearing Test Authored Date: * Cristal Batista: PERFORM Event Display: Hearing Test Authored Date: Physician Outpatient Note * Raad Mack, AuD: PERFORM, MODIFY Event Display: Office Clinic Note Physician Authored Date: KAYCEE SERNA :1960 Age:64 years Sex:Female Visit Date:03/21/2024 Primary Care Physician: REBECCA DAVIES History of Present Illness Patient seen for??annual hearing evaluation. ??Patient has history of normal sloping to moderately severe sensorineural hearing loss bilaterally. ??Patient is aided bilaterally.?? Most recent hearingevaluation 02/15/2023.?? Patient reports consistent use of hearing aids??and does get some benefit, but feels like she still does not hear as well as she should. 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 ??Patient does report some sensitivity??and ear pieces over the long-term wear.?? Patient denies any change in otologic symptoms such as change in hearing loss tinnitus, aural pressure, otalgia, or vertigo. . Physical Exam Otoscopy revealed clear canals with tympanic membranes visualized bilaterally. Procedure Air and bone-conduction??pure-tone thresholds revealed normal sloping to??severe sensorineural hearing loss bilaterally.?? Word recognition scores were??excellent (92%) in the right ear to presentation level of 75 dB HL with 35 dB masking the contralateral ear and good (84%) in the left ear to presentation level of 75 dB HL 35 dB masking the contralateral ear. Today's results reveal relatively stable hearing loss with slight decrease in speech discriminationscores in the left ear.?? Patient very compliant??with previous gain and??denies issues with tolerating??soft or loud sounds.?? Consider switching to DSL v5 states patient is requesting??increased audibility bilaterally.?? Fit patient is to DSL V5 adult targets using Real Ear verification bilaterally. ??Patient reports improved audibility. ??Do see improved audibility and high frequencies compared to previous Real Ear verification results from 10/22/2020. Assessment/Plan 1.??Bilateral sensorineural hearing loss??H90.3 Today's results reveal normal sloping to severe sensorineural hearing loss bilaterally.?? Excellentspeech discrimination ability in the right ear, good in the left ear at elevated levels. ??Switchedfrom??verified VAC plus fitting formula targets to DSL V5 adult fitting formula targets??as patient??continues to request increased audibility above prescription settings bilaterally.?? Today's results objectively show increased audibility compared to previous results as well as??per patient subjective report. Recommend annual hearing evaluation, or sooner should patient notice any change in??hearing, aural pressure, otalgia, tinnitus, or vertigo.?? Patient to notify department should she have any concerns with hearing aids. ??Should patient have difficulty tolerating earmolds recommend referral??to??audiology provider??for earmold remake. ??Unfortunately I will be resigning??effective March 21 unsure timeline [facility] will be able to find??provider. Problem List/Past Medical History Ongoing Bilateral sensorineural hearing loss Historical No qualifying data Medications No active medications Allergies No active allergies Electronically Signed on 03/21/2024 12:41 EDT Anthony Wiggins Patient Care team information Care Team Personnel Name: REBECCA DAVIES Position: No Access Member Role: Primary Care Physician Address: [address] [place] [id number] [place] [address] Care Team Related Persons Name: JENNA SERNA Name: SUNNY PURDY Insurance Providers Guarantor name: Health Plan Information #: 2 Payer: [facility] Member Number: [id number] Policy Number: NA Health Plan Information #: 1 Payer: [facility] Member Number: [id number] Policy Number: NA
--- OUTSIDE RECORDS SUMMARY | 2024-04-04 12:23 | XMS_ITS | Encounter Summary ---
Author Organization [facility] [place] [address] Care Team Providers Care Mcat Instructor Name Role Phone Jason Davila MD Primary Care Provider [phone] Encounter Details Date Type Department Care Team [...] on filedocumented in this encounter Care Teams Mcat Instructor Relationship Specialty Start Date End Date Jason Davila MD [address] [place] [address] [place] [address] PCP - General 01/13/13 12/09/23 marilyn noble Consulting Physician Gastroenterology 01/13/13 documented as of this encounter
--- OUTSIDE RECORDS SUMMARY | 2024-04-04 12:23 | XMS_ITS | Encounter Summary ---
Author Organization [facility] [place] [address] Care Team Providers Care Machine Assistant Name Role Phone Jason Davila MD Primary Care Provider [phone] Encounter Details Date Type Department Care Team (Late st Contact Info) Description 10/16/2023 External Results Non-Invasive [place] [address] Social History Tobacco Use Types Packs/Day Years [...] filedocumented in this encounter Care Teams Machine Assistant Relationship Specialty Start Date End Date Jason Davila MD [address] [place] [address] PCP - General 01/13/13 12/09/23 marilyn noble Consulting Physician Gastroenterology 01/13/13 documented as of this encounter
--- OUTSIDE RECORDS SUMMARY | 2024-04-04 12:23 | XMS_ITS | Encounter Summary ---
Author Organization [facility] Address [address] [place] [address] Care Team Providers Care Culinary Art Teacher Name Role Phone Kemal Vee MD Primary Care Provider [phone] Encounter Details Date Type Department Care Team (Late st Contact Info) Description 05/25/2020 Lab Requisition [facility] Pathology & Laboratory Medicine - [facility] [address] [place], [place] [address] Outr Resulting Lab, Provider Social History Tobacco [...] in accordance with CLIA regulations, [employer] (CAP) guidelines (Aug 28, 2019), and FDA guidance (Aug 09, 2019). This test is only for use under the Food and Drug Administration's Emergency Use Authorization. Swab ENTIRE NASOPHARYNX / Unknown 05/24/2020 14:15 EST 05/25/2020 16:30 EST Provider Outr Resulting Lab MICROBIOLOGY - GENERAL ORDERABLES [facility] [place], [place] * COVID-19 TESTING (05/24/2020 14:15 EST) COVID-19 rt-PCR Result NEGATIVE Negative 05/27/2020 21:[address] [facility] Comment: 2019-novel Coronavirus (2019-nCoV) not detected [...] in accordance with CLIA regulations, [employer] (CAP) guidelines (Aug 28, 2019), and FDA guidance (Aug 09, 2019). This test is only for use under the Food and Drug Administration's Emergency Use Authorization. Performing Lab [facility] 05/27/2020 21:35 EST [facility] Swab 05/24/2020 14:1 5 EST 05/25/2020 16:30 EST Provider Outr Resulting Lab MICROBIOLOGY - GENERAL ORDERABLES [facility] [address] [place] [address] [facility] [place], [place] documented in this encounter Visit Diagnoses Not on filedocumented in this encounter Care Teams Culinary Art Teacher Relationship Specialty Start Date End Date Kemal Vee MD [address] [place] [address] PCP - General 09/09/21 documented as of this encounter
--- OUTSIDE RECORDS SUMMARY | 2024-04-04 12:23 | XMS_ITS | Encounter Summary ---
Author Organization [facility] Address [address] [place] [address] Care Team Providers Care Shift Nurse Manager Name Role Phone Kemal Vee MD Primary Care Provider Encounter Details Date Type Department Care Team (Late st Contact Info) Description 11/25/2019 Lab Requisition [facility] Pathology & Laboratory Medicine - [facility] [address] [place], [place] [id number] Outr Resulting Lab, Provider Social History Tobacco [...] rt-PCR Result NEGATIVE Negative 11/26/2019 22:45 EDT [facility] Comment: 2019-novel Coronavirus [...] Outr Resulting Lab MICROBIOLOGY - GENERAL ORDERABLES [place], [place] * COVID-19 TESTING (11/25/2019 8:30 EDT) [facility] COVID-19 rt-PCR Result NEGATIVE Negative 11/27/2019 7:05 EDT [facility] Comment: 2019-novel Coronavirus (2019-nCoV) not [...] Administration's Emergency Use Authorization. Performing Lab [facility] 11/27/2019 7:05 EDT [facility] Swab ENTIRE NASOPHARYNX / Unknown 11/25/2019 8:30 EDT 11/25/2019 19:31 EDT Provider Outr Resulting Lab MICROBIOLOGY - GENERAL ORDERABLES [facility] [address] [place] [address] [facility] [place], [place] documented in this encounter Visit Diagnoses Not on filedocumented in this encounter Care Teams Shift Nurse Manager Relationship Specialty Start Date End Date Kemal Vee MD [address] [place] [address] PCP - General 09/09/21 documented as of this encounter
--- OUTSIDE RECORDS SUMMARY | 2024-04-04 12:23 | XMS_ITS | Referral Summary ---
Author Organization [facility] Address [address] [place] [address] Care Team Providers Care Motion Picture Scene Builder Name Role Phone Kemal Vee MD Primary [...] of Treatment Not on file Care Teams Motion Picture Scene Builder Relationship Specialty Start Date End Date Kemal Vee MD [address] [place] [address] PCP - General 09/09/21
--- OUTSIDE RECORDS SUMMARY | 2024-04-04 12:23 | XMS_ITS ---
Author Organization Unknown ALLERGIES AND ADVERSE REACTIONS No information ASSESSMENT No information CHIEF COMPLAINT No information MEDICATIONS No information OBJECTIVE DATA No information PHYSICAL EXAMINATION No information TREATMENT PLAN Planned Care Start Date Provider Encounter for Check-up [id number] PROBLEMS No information RESULTS No information REVIEW OF SYSTEMS No information SUBJECTIVE DATA No information VITAL SIGNS No information
--- OUTSIDE RECORDS SUMMARY | 2024-04-04 12:23 | XMS_ITS | Clinical Summary ---
Author Organization [facility] Address [address] [place] [address] Care Team Providers Care Chemical Analytical Sampler Name Role Phone Kemal Vee MD Primary Care Provider [phone] Social History Tobacco Use Types Packs/Day Years [...] 2023 Fall Risk Screening 2023 Care Teams Chemical Analytical Sampler Relationship Specialty Start Date End Date Kemal Vee MD [address] [place] [address] PCP - General 09/09/21
--- OUTSIDE RECORDS SUMMARY | 2024-04-04 12:23 | XMS_ITS | Encounter Summary ---
Author Organization [facility] [place] [address] Care Team Providers Care Wilderness Guide Name Role Phone Jason Davila MD Primary Care Provider Encounter Details Date Type Department Care Team (Late st Contact Info) Description 08/13/2014 Telephone Hematology Oncology at [address] [address] Liz Navarro RN Social History [...] on filedocumented in this encounter Care Teams Wilderness Guide Relationship Specialty Start Date End Date Jason Davila MD [address] [place] [address] PCP - General 01/13/13 12/09/23 marilyn noble Consulting Physician Gastroenterology 01/13/13 documented as of this encounter
--- OUTSIDE RECORDS SUMMARY | 2024-04-04 12:23 | XMS_ITS | Encounter Summary ---
Author Organization [facility] Address [address] [place] [address] Care Team Providers Care Pipe Fitter Gas Pipe Name Role Phone Kemal Vee MD Primary Care Provider Encounter Details Date Type Department Care Team (Late st Contact Info) Description 02/13/2023 Lab Requisition [facility] Pathology & Laboratory Medicine - [facility] [address] [place] [address] Dany Burns MD [address] [place] [address] [place] [address] Encounter for other general examination [...] if applicable. 02/15/2023 10:45 EDT [facility] Final Diagnosis A. LEFT COLON, BIOPSY: - Polypoid colonic mucosa with reactive changes and lymphoid aggregate. 02/15/2023 10:45 EDT [facility] Attestation By the signature below, the attending physician certifies that they have 1) personally conducted a gross and/or microscopic examination of the described specimen(s), and/or personally interpreted the results of laboratory testing of the described specimen(s), and 2) personally rendered or confirmed the above diagnosis. 02/15/2023 10:45 EDT [facility] at 1044 Clinical History Rectal bleeding, L colon polyp 02/15/2023 10:45 EDT [facility] Gross Description A. Received in formalin labelled with proper patient identification (initials I, S) and A. Left colon polyp is a single mann-brown tissue (0.3 x 0.2 x 0.1 cm). Submitted intact in A1. [facility] 02/14/2023 9:44 02/15/2023 10:45 EDT [facility] Performing Lab [facility] 02/15/2023 10:45 EDT [facility] Scanned Images 02/15/2023 10:45 T [facility] Tissue LEFT COLON STRUCTURE / Unknown 02/13/2023 13:30 EDT 02/14/2023 8:46 EDT Dany Burns MD PATHOLOGY ORDERABLES [facility] [address] [place] [address] documented in this encounter Visit Diagnoses Diagnosis Encounter for other general examination documented in this encounter Care Teams Pipe Fitter Gas Pipe Relationship Specialty Start Date End Date Kemal Vee MD [address] [place] [address] PCP - General 09/09/21 documented as of this encounter
--- OUTSIDE RECORDS SUMMARY | 2024-04-04 12:23 | XMS_ITS | Encounter Summary ---
Author Organization [facility] [place] [address] Care Team Providers Care Back Hoe Operator Name Role Phone Kemal Vee MD [...] on filedocumented in this encounter Care Teams Back Hoe Operator Relationship Specialty Start Date End Date Kemal Vee MD [address] [place] [address] PCP - General General Internal Medicine 12/10/23 marilyn onble Consulting Physician Gastroenterology 01/13/13 documented as of this encounter
--- OUTSIDE RECORDS SUMMARY | 2024-04-04 12:24 | XMS_ITS | Encounter Summary ---
Author Organization [facility] Address [facility] [place] [address] Care Team Providers Care Development Technical Lead Name Role Phone Jason Davila MD Primary Care Provider [phone] Encounter Details Date Type Department Care Team (Late st Contact Info) Description 02/05/2013 3:30 PM EDT - 02/05/2013 5:00 PM EDT [place] [address] Jasper Young MD [facility] [place] [address] UPPER EUS- ENDOSCOPIC ULTRASOUND (WRVU 3.47) Social [...] occurs please contact your M.D. Please call [phone] before 5 pm with problems, questions or concerns. After 5pm call [phone] and ask to speak with the overlock operator supervisor blood donor recruiters. Discharge instructions reviewed with patient who expresses understanding. * Patient Instructions* Jasper Young MD - 02/05/2013 6:37 PM EDT Please see Recommendations in the Provation procedure report which is documented in the procedural note in E-DH. * Attachments The following attachments cannot be sent through Care Everywhere. * ENDOSCOPIC ULTRASOUND (ORAL): WHAT TO EXPECT AT HOME (GERMAN) documented in this encounter Medications at Time [...] Young MD - 02/05/2013 6:37 PM EDT [facility] Operative Note Patient Name: Anum Henriquez : [id number] MR#: [id number] Case Date: 02/05/2013 Surgeon: Surgeon(s) and Role: [...] EUS-ENDOSCOPIC ULTRASOUND (02/05/2013 6:16 PM EDT) Pathologist [facility] UPPER ENDOSCOPIC ULTRASOUND [facility] Endoscopy Patient Name: Anum Henriquez ? Procedure Date: 02/05/2013 6:16 PM ? Date of : 1960 ? Age: 52 ? Order #: [id number] ? Procedure: ? Upper EUS Indications: ? [...] Active and Recently Administered Medications Care Teams Development Technical Lead Relationship Specialty Start Date End Date Jason Davila MD [address] [place] [address] [place] [address] PCP - General 01/13/13 12/09/23 marilyn noble Consulting Physician Gastroenterology 01/13/13 documented as of this encounter
--- OUTSIDE RECORDS SUMMARY | 2024-04-04 12:24 | XMS_ITS | Encounter Summary ---
Author Organization [facility] Address [facility] [place] [address] Care Team Providers Care Latin Professor Name Role Phone Jason Davila MD Primary Care Provider [phone] Reason for Visit * Reason Comments Graves' Disease Encounter Details Date Type Department Care Team (Late st Contact Info) Description 01/14/2013 10:30 AM EDT Office [place] [address] Clovis Clark MD [facility] [place] [address] Minor Kebede MD [facility] [place] [address] Graves disease (Primary Dx) Discharge Disposition: Home [...] storm documented in this encounter Care Teams Latin Professor Relationship Specialty Start Date End Date Jason Davila MD [address] [place] [address] [place] [address] PCP - General 01/13/13 12/09/23 marilyn noble Consulting Physician Gastroenterology 01/13/13 documented as of this encounter
--- OUTSIDE RECORDS SUMMARY | 2024-04-04 12:24 | XMS_ITS | Encounter Summary ---
Author Organization [facility] Address [facility] [place] [address] Care Team Providers Care Cigarette Stamper Name Role Phone Lonny Davila MD Primary Care Provider [phone] Reason for Visit * Reason Comments Follow-up Encounter Details Date Type Department Care Team (Late st Contact Info) Description 04/15/2014 9:00 AM EST Follow-Up Hematology Oncology at [address] [address] Fabi Romero MD [facility] DR HEMATOLOGY [place] [address] History of TTP (thrombotic thrombocytopenic purpura) (Primary [...] - 04/15/2014 9:36 AM [place] [address] FOLLOW-UP PATIENT EVALUATION PROBLEM LIST: [...] MD Medication Sig Dispense Refill ??? OMEGA 8-DJE-GTH-FISH OIL ORAL Take by mouth. ??? GLUC/CHND/OM3/DHA/EPA/FISH/STR [...] 2012, after several days of hospitalization at [facility]. She initially presented there with bloody diarrhea and abdominal distention. During her course there, she developed a drop in her hemoglobin and platelet count and slowly developed mild renal insufficiency. At that point, TTP was suspected, and she was transferred to [facility]. 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 She was hospitalized at [facility] from December 13 to December 27, [...] on metoprolol. Her last EF was in [place] in Spring 2013 and she statesthat her [...] organs documented in this encounter Care Teams Cigarette Stamper Relationship Specialty Start Date End Date Lonny Davila MD [address] [place] [address] [place] [address] PCP - General 01/13/13 12/09/23 marilyn noble Consulting Physician Gastroenterology 01/13/13 documented as of this encounter
--- OUTSIDE RECORDS SUMMARY | 2024-04-04 12:24 | XMS_ITS | Encounter Summary ---
Author Organization [facility] Address [facility] [place] [address] Care Team Providers Care Cable Swager Name Role Phone Lonny Davila MD Primary Care Provider [phone] Reason for Visit * Reason Comments GI Problem Encounter Details Date Type Department Care Team (Late st Contact Info) Description 01/22/2013 10:00 AM EDT Office [place] [address] Susana Seals MD [facility] DR GASTROENTER[place] [address] Epigastric abdominal pain (Primary Dx) Discharge Disposition: [...] Seals MD - 01/22/2013 10:08 AM EDT [facility] Section of Gastroenterology and Hepatology Outpatient [...] every having 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 Dony Seals [place] [address] P: [phone] F: [phone] CC LONNY DAVILA MD [address] [place] [address] [place] [address] Lonny Davila MD [address] [place] [address] [place] [address] documented in this encounter Plan of Treatment [...] 4 103.2(H) 4.0 - 86.0 mg/dL [facility] Comment: Test Performed by [email or web address], [facility], [address] [place] [address] Ankit Chambers M.D., Ph.D., Director of Laboratories , CLIA [id number] Blood specimen (specimen) 01/22/2013 11:46 AM EDT 01/22/2013 2:53 PM EDT Narrative Resulting Agency Comment Spec In Lab Dony Deleon MD IMMUNOLOGY ORDERABLE S [facility] * (ABNORMAL) Triglyceride (01/22/2013 11:46 AM EDT) Triglyceride 219(H) <=149 mg/dL [facility] Comment: Reference Range: Normal triglycerides: ??<150 mg/dL Borderline high: ??150-199 mg/dL High: ??200-499 mg/dL Very high: ??>zo=966 mg/dL SNEHA 2001; 285(99):4256-1706 Blood specimen (specimen) 01/22/2013 11:46 AM EDT 01/22/2013 11:58 AM EDT Narrative Resulting Agency Comment Spec In Lab Dony Deleon MD CHEMISTRY ORDERABLES Performing Organization Address [facility] Co de Phone Number CERNER MILLENNIUM * Hepatic Function Panel (01/22/2013 11:46 AM EDT) Pathologist [facility] Protein, Total 8.1 6.4 - 8.3 gm/dL [...] Deleon MD CHEMISTRY ORDERABLES Performing Organization Address City/[facility] Co de Phone Number [facility] * (ABNORMAL) Lipase (01/22/2013 11:46 AM EDT) Lipase 178(H) 0 - 60 unit/L [facility] Blood specimen (specimen) 01/22/2013 11:46 AM EDT 01/22/2013 11:58 AM EDT Narrative Resulting Agency Comment Spec In Lab Dony Deleon MD CHEMISTRY ORDERABLES Performing Organization Address [facility] Co de Phone Number [facility] documented in this encounter Visit Diagnoses Diagnosis Epigastric abdominal pain- Primary Abdominal pain, epigastric documented in this encounter Care Teams Cable Swager Relationship Specialty Start Date End Date Lonny Davila MD [address] [place] [address] [place] [address] PCP - General 01/13/13 12/09/23 marilyn noble Consulting Physician Gastroenterology 01/13/13 documented as of this encounter
--- OUTSIDE RECORDS SUMMARY | 2024-04-04 12:24 | XMS_ITS | Encounter Summary ---
Author Organization [facility] Address [facility] [place] [address] Care Team Providers Care Toys Inspector Name Role Phone Ofelia Costello APRN Primary Care Provider [phone] Encounter Details Date Type Department Care Team (Late st Contact Info) Description 01/06/2013 Orders [place] [address] Clovis Varner MD [facility] [place] [address] Hyperthyroidism (Primary Dx) Social History Tobacco Use [...] T3 Total 102 75 - 170 ng/dL [facility] Blood specimen (specimen) 02/05/2013 1:09 PM EDT 02/05/2013 1:12 PM EDT Narrative Resulting Agency Comment Spec In Lab Clovis Varner MD CHEMISTRY ORDERAB LES Performing Organization Address City/[facility] Co de Phone Number [facility] * T4, free (02/05/2013 1:09 PM EDT) Free T4 1.11 0.90 - 1.60 ng/dL [facility] Blood specimen (specimen) 02/05/2013 1:09 PM EDT 02/05/2013 1:12 PM EDT Narrative Resulting Agency Comment Spec In Lab Clovis Varner MD CHEMISTRY ORDERAB LES Performing Organization Address [facility] Co de Phone Number BAR NEO * TSH (02/05/2013 1:09 PM EDT) Thyroid Stimulating Hormone 1.75 0.27 - 4.20 mcIU/mL [facility] Blood specimen (specimen) 02/05/2013 1:09 PM EDT 02/05/2013 1:12 PM EDT Narrative Resulting Agency Comment Spec In Lab Clovis Varner MD CHEMISTRY ORDERAB LES Performing Organization Address [facility] Co de Phone Number [facility] NO[facility] documented in this encounter Visit Diagnoses Diagnosis Hyperthyroidism- Primary Thyrotoxicosis without mention of goiter or other cause, without mention of thyrotoxic crisis or storm documented in this encounter Care Teams Toys Inspector Relationship Specialty Start Date End Date Ofelia Costello APRN [address] [address] PCP - General 12/13/12 01/12/13 documented as of this encounter
--- OUTSIDE RECORDS SUMMARY | 2024-04-04 12:24 | XMS_ITS | Encounter Summary ---
Author Organization [facility] Address [facility] [place] [address] Care Team Providers Care Thermodynamicist Name Role Phone Jason Davila MD Primary Care Provider [phone] Encounter Details Date Type Department Care Team (Late st Contact Info) Description 02/12/2013 Telephone [place] [address] Susana Seals MD [facility] [place] [address] Social History Tobacco Use Types Packs/Day Years [...] on filedocumented in this encounter Care Teams Thermodynamicist Relationship Specialty Start Date End Date Jason Davila MD [address] [place] [address] PCP - General 01/13/13 12/09/23 marilyn noble Consulting Physician Gastroenterology 01/13/13 documented as of this encounter
--- OUTSIDE RECORDS SUMMARY | 2024-04-04 12:24 | XMS_ITS | Encounter Summary ---
Author Organization [facility] Address [facility] [place] [address] Care Team Providers Care Director Of Outside Sales Name Role Phone Jason Davila MD Primary Care Provider [phone] Reason for Visit * Reason Comments Congestive Heart Failure Encounter Details Date Type Department Care Team (Late st Contact Info) Description 01/28/2013 11:15 AM EDT Office Visit [address] [address] Martir Sevilla MD [facility] [place] [address] CHF (congestive heart failure) (Primary Dx) Social [...] unspecified documented in this encounter Care Teams Director Of Outside Sales Relationship Specialty Start Date End Date Jason Davila MD [address] [place] [address] PCP - General 01/13/13 12/09/23 marilyn noble Consulting Physician Gastroenterology 01/13/13 documented as of this encounter
--- OUTSIDE RECORDS SUMMARY | 2024-04-04 12:24 | XMS_ITS | Encounter Summary ---
Author Organization [facility] Address [facility] [place] [address] Care Team Providers Care Customer Success Associate Name Role Phone Jason Davila MD Primary Care Provider [phone] Reason for Visit * Reason Comments Congestive Heart Failure Encounter Details Date Type Department Care Team (Late st Contact Info) Description 05/06/2013 9:30 AM EST Office Visit [address] [address] Martir Sevilla MD [facility] [place] [address] CHF (congestive heart failure) (Primary Dx) Social [...] unspecified documented in this encounter Care Teams Customer Success Associate Relationship Specialty Start Date End Date Jason Davila MD [address] [place] [address] [place] [address] PCP - General 01/13/13 12/09/23 marilyn noble Consulting Physician Gastroenterology 01/13/13 documented as of this encounter
--- OUTSIDE RECORDS SUMMARY | 2024-04-04 12:24 | XMS_ITS | Encounter Summary ---
Author Organization [facility] Address [facility] [place] [address] Care Team Providers Care Healthcare Consultant Name Role Phone Jason Davila MD Primary Care Provider [phone] Encounter Details Date Type Department Care Team (Latest Contact Info) Description 01/13/2013 11:25 AM EDT - 01/13/2013 11:59 PM EDT Hospital Encounter [place] [address] CLINIC, Fabi Salter MD [facility] HEMATOLOGY [place] [address] TTP (thrombotic thrombocytopenic purpura); MRSA (methicillin resistant [...] intravenous contrast dated December 10, [address] [facility]. Technique Axial images of the abdomen [...] F/U to last CT - downloaded to [facility] Reassess colon thickening Comparison CT scan of the abdomen and pelvis with intravenous contrast dated December from [facility]. Technique Axial images of the abdomen [...] heart documented in this encounter Care Teams Healthcare Consultant Relationship Specialty Start Date End Date Jason Davila MD [address] [place] [address] [place] [address] PCP - General 01/13/13 12/09/23 marilyn noble Consulting Physician Gastroenterology 01/13/13 documented as of this encounter
--- OUTSIDE RECORDS SUMMARY | 2024-04-04 12:24 | XMS_ITS | Encounter Summary ---
Author Organization [facility] Address [facility] [place] [address] Care Team Providers Care Assistant Teaching Professor Name Role Phone Jason Davila MD Primary Care Provider [phone] Encounter Details Date Type Department Care Team (Late st Contact Info) Description 02/05/2013 6:10 PM EDT Anesthesia [place] [address] Eli, Beck Lo MD [facility] [place] [address] Flynn French MD [facility] [place] [address] Anesthesia Record Procedure Summary Procedure Name Responsible [...] 02/05/13; 1904 02/05/13 1759 by Megan Carpenter 02/05/13 190 by Jose Kaur, DRU documented in this encounter Social History Tobacco [...] risks discussed with patient. Plan discussed with TESTER ARMATURE OR FIELDS. [facility] Assessment: documented in this encounter Plan [...] mg documented in this encounter Care Teams Assistant Teaching Professor Relationship Specialty Start Date End Date Jason Davila MD [address] [place] [address] [place] [address] PCP - General 01/13/13 12/09/23 marilyn noble Consulting Physician Gastroenterology 01/13/13 documented as of this encounter
--- OUTSIDE RECORDS SUMMARY | 2024-04-04 12:24 | XMS_ITS | Encounter Summary ---
Author Organization [facility] Address [facility] [place] [address] Care Team Providers Care Cmm Programmer Name Role Phone Jason Davila MD Primary Care Provider [phone] Reason for Visit * Reason Comments GI Problem Epigastric pain Encounter Details Date Type Department Care Team (Latest Contact Info) Description 05/22/2013 4:00 PM EST [place] [address] 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 He reports that her epigastric and dysphagia [...] that she has autoimmune pancreatitis which requires (Bruno HISORt criteriafor diagnosis). It is reassuring the [...] 4 90.6(H) 4.0 - 86.0 mg/dL [facility] Comment: Test Performed by Gabbie Gates, [employer] [employer] [facility], [address] [place], [place] Ankit Chambers M.D., Ph.D., Director of Laboratories , [place] [id number] Blood specimen (specimen) 05/22/2013 4:34 PM EST 05/23/2013 8:44 AM EST Narrative Resulting Agency Comment Spec In Lab Zain Mayfield MD IMMUNOLOGY ORDERABLE S [facility] documented in this encounter Visit Diagnoses Diagnosis Epigastric pain- Primary Abdominal pain, epigastric 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
--- OUTSIDE RECORDS SUMMARY | 2024-04-04 12:24 | XMS_ITS | Encounter Summary ---
Author Organization [facility] [place] [address] Care Team Providers Care Kiln Fireman Name Role Phone Jason Davila MD Primary Care Provider [phone] Reason for Visit * Reason Onset Date Comments Other 01/30/2014 Encounter Details Date Type Department Care Team (Late st Contact Info) Description 01/30/2014 Telephone [place] [address] Yee Cabello Other Social History Tobacco Use [...] on filedocumented in this encounter Care Teams Kiln Fireman Relationship Specialty Start Date End Date Jason Davila MD [address] [place] [address] [place] [address] PCP - General 01/13/13 12/09/23 marilyn noble Consulting Physician Gastroenterology 01/13/13 documented as of this encounter
--- OUTSIDE RECORDS SUMMARY | 2024-04-04 12:24 | XMS_ITS | Encounter Summary ---
Author Organization [facility] [place] [address] Care Team Providers Care Driver Helper Name Role Phone Jason Davila MD Primary Care Provider [phone] Encounter Details Date Type Department Care Team (Latest Contact Info) Description 05/22/2013 12:36 PM EST - 05/22/2013 11:59 PM EST [place] [address] Jason Davila MD [address] [place] [phone] Discharge Disposition: Home Social History Tobacco Use [...] 12.0 - 15.0 sec [facility] Comment: [facility] Transfusion Committee Guidelines: INR less [...] on filedocumented in this encounter Care Teams Driver Helper Relationship Specialty Start Date End Date Jason Davila MD [address] [place] [address] [place] [address] PCP - General 01/13/13 12/09/23 marilyn noble Consulting Physician Gastroenterology 01/13/13 documented as of this encounter
--- OUTSIDE RECORDS SUMMARY | 2024-04-04 12:24 | XMS_ITS | Encounter Summary ---
Author Organization [facility] Address [facility] [place] [address] Care Team Providers Care Paper Wrapping Machine Operator Name Role Phone Lonny Davila MD Primary Care Provider [phone] Encounter Details Date Type Department Care Team (Late st Contact Info) Description 07/09/2014 2:00 PM EST Follow-Up [place] [address] Augustina Encinas MD [facility] [place] [address] HUS (hemolytic uremic syndrome) Discharge Disposition: Home [...] Salgado MD - 07/09/2014 1:59 PM EST [facility] Nephrology/Hypertension Follow Up Anum Henriquez [id number] ID: [id number] y.o. female for f/u visit for HUS. 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 Graves disease F/u w Endo Plan: Follow up: as needed Seen and Discussed w/ Dr. Nic Salgaod MD Nephrology Fellow Pager# [phone] LONNY DAVILA MD [address] [place] [phone] documented in this encounter Miscellaneous Notes * Addendum Note - Augustina Encinas MD - 07/11/2014 1:43 PM ESTAddended by: AUGUSTINA ENCINAS on: 07/11/2014 01:43 PM Modules accepted: Level of Service documented in this encounter Plan of Treatment Not on file documented as of this encounter Visit Diagnoses Diagnosis HUS (hemolytic uremic syndrome) Hemolytic-uremic syndrome documented in this encounter Care Teams Paper Wrapping Machine Operator Relationship Specialty Start Date End Date Lonny Davila MD [address] [place] [address] [place] [address] PCP - General 01/13/13 12/09/23 marilyn noble Consulting Physician Gastroenterology 01/13/13 documented as of this encounter
--- OUTSIDE RECORDS SUMMARY | 2024-04-04 12:24 | XMS_ITS | Encounter Summary ---
Author Organization [facility] Address [facility] [place] [address] Care Team Providers Care Emission Specialist Name Role Phone Jason Davila MD Primary Care Provider [phone] Encounter Details Date Type Department Care Team (Late st Contact Info) Description 05/22/2013 12:35 PM EST - 05/22/2013 11:59 PM EST Hospital [place] [address] Fabi Romero MD [facility] DR [place] [address] Discharge Disposition: Home Social History Tobacco Use [...] on filedocumented in this encounter Care Teams Emission Specialist Relationship Specialty Start Date End Date Jason Davila MD [address] [place] [address] [place] [address] PCP - General 01/13/13 12/09/23 marilyn noble Consulting Physician Gastroenterology 01/13/13 documented as of this encounter
--- OUTSIDE RECORDS SUMMARY | 2024-04-04 12:24 | XMS_ITS | Encounter Summary ---
Author Organization [facility] Address [facility] [place] [address] Care Team Providers Care Filter Filler Name Role Phone Bakari Warner APRN Primary Care Provider [phone] Encounter Details Date Type Department Care Team (Late st Contact Info) Description 01/08/2013 12:00 PM EDT Follow-Up Hematology Oncology at [address] [address] Fabi Romero MD [facility] DR HEMATOLOGY [place] [address] TTP (thrombotic thrombocytopenic purpura) (Primary Dx); MRSA [...] - 01/08/2013 12:36 PM EDT [facility] [place] [address] FOLLOW-UP PATIENT EVALUATION PROBLEM LIST: Patient Active [...] by mouth daily. 30 capsule 11 ??? Qysbnyynmmq-Fqmfwvicv-Dlc C-Mn 500-400 mg Cap ??? CALCIUM ORAL [...] Latest Range: 110-220 unit/L 198 01/07/13 from [facility] Wbc 5.8 hgb 9.9 plt 281k [...] 2012, after several days of hospitalization at [facility]. She initially presented there with bloody diarrhea and abdominal distention. During her course there, she developed a drop in her hemoglobin and platelet count and slowly developed mild renal insufficiency. At that point, TTP was suspected, and she was transferred to [facility]. 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 She was hospitalized at [facility] from December 13 to December 27, 2012. Her ADAMSTS-13 came back normal, and plasma exchange was discontinued. Over the course of the hospitalization, her creatinine seemed to improve. Her platelet count parminder finally above 100,000, and her hemoglobin slowly parimnder. Her renal function improved a bit, but [...] I will try to get this at [facility] on either 01/13/2013 or 01/14/2013 [...] directives, such as a Durable Power of [place]ing [place] for Health Care. DETERMINATION OF CAPACITY The [...] to speak for him/herself. Name: Liu Henriquez ([phone]) Relationship to patient: Alternate decision maker: Name: Venita Diony ([phone]) and Dewey Montesabelle ([phone]) Relationship to patient: daughter and son III. OPTIONAL EXPRESSION OF PREFERENCES FOR SPECIFIC LIFE-PROLONGING TREATMENTS Not reviewed at this time. IV: OTHERS PRESENT - None present V. OTHER COMMENTS Patient has advanced directives on file at [facility] - patient agreeable to bringing copies of advanced directives to [facility] for scanning into eD-H. documented in this [...] intravenous contrast dated December 10, 2012 from [facility]. Technique Axial images of the abdomen [...] F/U to last CT - downloaded to [facility] Reassess colon thickening Comparison CT scan of the abdomen and pelvis with intravenous contrast dated December from [facility]. Technique Axial images of the abdomen [...] heart documented in this encounter Care Teams Filter Filler Relationship Specialty Start Date End Date Bakari Warner APRN [facility] [address] [place] [address] PCP - General 12/13/12 01/12/13 documented as of this encounter
--- OUTSIDE RECORDS SUMMARY | 2024-04-04 12:24 | XMS_ITS | Encounter Summary ---
Author Organization [facility] [address] Care Team Providers Care Dials Inspector Name Role Phone Jason Davila MD Primary Care Provider [phone] Encounter Details Date Type Department Care Team (Late st Contact Info) Description 07/13/2014 External Results Neph[place] [address] Social History Tobacco Use Types Packs/Day Years [...] on filedocumented in this encounter Care Teams Dials Inspector Relationship Specialty Start Date End Date Jason Davila MD [address] [place] [address] [place] [address] PCP - General 01/13/13 12/09/23 marilyn noble Consulting Physician Gastroenterology 01/13/13 documented as of this encounter
--- OUTSIDE RECORDS SUMMARY | 2024-04-04 12:24 | XMS_ITS | Encounter Summary ---
Author Organization [facility] Address [facility] [place] [address] Care Team Providers Care High School Assistant Principal Name Role Phone Jason Davila MD Primary Care Provider [phone] Encounter Details Date Type Department Care Team (Latest Contact Info) Description 01/13/2013 11:51 AM EDT - 01/13/2013 11:59 PM EDT Hospital [place] [address] Jason Davila MD [address] [place] [id number] Discharge Disposition: Home Social History Tobacco Use [...] (ABNORMAL) Prothrombin Time (01/13/2013 12:11 PM EDT) [facility] Prothrombin Time 19.8(H) 12.0 - 15.0 sec [facility] Comment: [facility] Transfusion Committee Guidelines: INR less than [...] Lab Jason Davila MD HEMATOLOGY ORDERABLE S [facility] documented in this encounter Visit Diagnoses Not on filedocumented in this encounter Care Teams High School Assistant Principal Relationship Specialty Start Date End Date Jason Davila MD [address] [place] [address] [place] [address] PCP - General 01/13/13 12/09/23 marilyn noble Consulting Physician Gastroenterology 01/13/13 documented as of this encounter
--- OUTSIDE RECORDS SUMMARY | 2024-04-04 12:24 | XMS_ITS | Encounter Summary ---
Author Organization [facility] Address [facility] [place] [address] Care Team Providers Care Mini Lab Operator Name Role Phone Ofelia Costello APRN Primary Care Provider [phone] Reason for Visit * Reason Comments Congestive Heart Failure Encounter Details Date Type Department Care Team (Late st Contact Info) Description 01/10/2013 3:30 PM EDT Office Visit [address] [address] Martir Sevilla MD [facility] CARDIOLOGY [place] [address] CHF (congestive heart failure) (Primary Dx) Social [...] unspecified documented in this encounter Care Teams Mini Lab Operator Relationship Specialty Start Date End Date Ofelia Costello APRN [address] [address] PCP - General 12/13/12 01/12/13 documented as of this encounter
--- OUTSIDE RECORDS SUMMARY | 2024-04-04 12:24 | XMS_ITS | Encounter Summary ---
Author Organization [facility] [place] [address] Care Team Providers Care Front Desk Attendant Name Role Phone Jason Davila MD Primary Care Provider [phone] Encounter Details Date Type Department Care Team (Late st Contact Info) Description 02/05/2013 Telephone [place] [phone] Drea Britton, RN Social History Tobacco Use [...] on filedocumented in this encounter Care Teams Front Desk Attendant Relationship Specialty Start Date End Date Jason Davila MD [address] [place] [address] [place] [address] PCP - General 01/13/13 12/09/23 marilyn noble Consulting Physician Gastroenterology 01/13/13 documented as of this encounter
--- OUTSIDE RECORDS SUMMARY | 2024-04-04 12:24 | XMS_ITS | Encounter Summary ---
Author Organization [facility] Address [facility] [place] [address] Care Team Providers Care Take Out Waiter/Waitress Name Role Phone Jason Davila MD Primary Care Provider [phone] Reason for Visit * Reason Comments Thyroid Problem Encounter Details Date Type Department Care Team (Late st Contact Info) Description 03/21/2013 11:00 AM EDT Office [place] [address] Minor Kebede MD [facility] DR [place] [address] Graves' disease (Primary Dx); H/O Graves' disease [...] AM EDT) Thyroperoxidase Ab 72(H) <=34 IU/mL [facility] Blood specimen (specimen) 03/21/2013 10:02 AM EDT 03/21/2013 12:04 PM EDT Narrative Resulting Agency Comment Spec In Lab Clovis Varner MD IMMUNOLOGY ORDERA BLES [facility] * T4, free (03/21/2013 10:02 AM EDT) Free T4 1.23 0.90 - 1.60 ng/dL [facility] Blood specimen (specimen) 03/21/2013 10:02 AM EDT 03/21/2013 10:09 AM EDT Narrative Resulting Agency Comment Spec In Lab Clovis Varner MD CHEMISTRY ORDERAB LES Performing Organization Address City/[facility]/ZIP Co de Phone Number [facility] * T3 (03/21/2013 10:02 AM EDT) T3 Total 96 75 - 170 ng/dL [facility] Blood specimen (specimen) 03/21/2013 10:02 AM EDT 03/21/2013 10:09 AM EDT Narrative Resulting Agency Comment Spec In Lab Clovis Varner MD CHEMISTRY ORDERAB LES [facility] * TSH (03/21/2013 10:02 AM EDT) [...] disorders documented in this encounter Care Teams Take Out Waiter/Waitress Relationship Specialty Start Date End Date Jason Davila MD [address] [place] [address] [place] [address] PCP - General 01/13/13 12/09/23 marilyn noble Consulting Physician Gastroenterology 01/13/13 documented as of this encounter
--- OUTSIDE RECORDS SUMMARY | 2024-04-04 12:24 | XMS_ITS | Encounter Summary ---
Author Organization [facility] Address [facility] [place] [address] Care Team Providers Care Knot Cutter Name Role Phone Jason Davila MD Primary Care Provider [phone] Encounter Details Date Type Department Care Team (Latest Contact Info) Description 02/05/2013 1:46 PM EDT - 02/05/2013 7:11 PM EDT Hospital Encounter [place] [address] Jasper Young MD [facility] [place] [address] Discharge Disposition: Home Social History Tobacco Use [...] occurs please contact your M.D. Please call [phone] before 5 pm with problems, questions or concerns. After 5pm call [phone] and ask to speak with the claim trainee java web application developer. Discharge instructions reviewed with patient who expresses understanding. * Patient Instructions* Jasper Young MD - 02/05/2013 6:37 PM EDT Please see Recommendations in the Provation procedure report which is documented in the procedural note in E-DH. * Attachments The following attachments cannot be sent through Care Everywhere. * ENDOSCOPIC ULTRASOUND (ORAL): WHAT TO EXPECT AT HOME (JAPANESE) documented in this encounter Medications at Time [...] Young MD - 02/05/2013 6:37 PM EDT [facility] Operative Note Patient Name: Anum Henriquez : [id number] MR#: [id number] Case Date: 02/05/2013 Surgeon: Surgeon(s) and Role: [...] (02/05/2013 6:16 PM EDT) UPPER ENDOSCOPIC ULTRASOUND [facility] Endoscopy Patient Name: Anum Henriquez ? Procedure Date: 02/05/2013 6:16 PM ? Date of : 1960 ? Age: 52 ? Order #: [id number] ? Procedure: ? Upper EUS Indications: ? [...] Active and Recently Administered Medications Care Teams Knot Cutter Relationship Specialty Start Date End Date Jason Davila MD [address] [place] [address] [place] [address] PCP - General 01/13/13 12/09/23 marilyn noble Consulting Physician Gastroenterology 01/13/13 documented as of this encounter
--- OUTSIDE RECORDS SUMMARY | 2024-04-04 12:24 | XMS_ITS | Encounter Summary ---
Author Organization [facility] [place] [address] Care Team Providers Care Calender Machine Operator Helper Name Role Phone Jason Davila MD Primary Care Provider [phone] Encounter Details Date Type Department Care Team (Late st Contact Info) Description 05/22/2013 Orders [place] [address] Cristal Hernandez, RN DEPT OF GASTROENTEROLOGY Elevated [...] chemistry documented in this encounter Care Teams Calender Machine Operator Helper Relationship Specialty Start Date End Date Jason Davila MD [address] [place] [address] [place] [address] PCP - General 01/13/13 12/09/23 marilyn noble Consulting Physician Gastroenterology 01/13/13 documented as of this encounter
--- OUTSIDE RECORDS SUMMARY | 2024-04-04 12:24 | XMS_ITS | Encounter Summary ---
Author Organization [facility] Address [facility] [place] [address] Care Team Providers Care Marble Supervisor Name Role Phone Jason Davila MD Primary Care Provider [phone] Encounter Details Date Type Department Care Team (Latest Contact Info) Description 01/14/2013 10:05 AM EDT Office [place] [address] Minor Kebede MD [facility] [place] [address] H/O Graves' disease (Primary Dx); Graves' ophthalmopathy [...] Lab Clovis Clark MD IMMUNOLOGY ORDERA BLES [facility] * T4, free (03/21/2013 10:02 AM EDT) Free T4 1.23 0.90 - 1.60 ng/dL [facility] Blood specimen (specimen) 03/21/2013 10:02 AM EDT 03/21/2013 10:09 AM EDT Narrative Resulting Agency Comment Spec In Lab Clovis Clark MD CHEMISTRY ORDERAB LES [facility] * T3 (03/21/2013 10:02 AM EDT) T3 Total 96 75 - 170 ng/dL [facility] Blood specimen (specimen) 03/21/2013 10:02 AM EDT 03/21/2013 10:09 AM EDT Narrative Resulting Agency Comment Spec In Lab Clovis Clark MD CHEMISTRY ORDERAB LES [facility] * TSH (03/21/2013 10:02 AM EDT) Thyroid Stimulating Hormone 1.63 0.27 - 4.20 mcIU/mL [facility] Blood specimen (specimen) 03/21/2013 10:02 AM EDT 03/21/2013 10:09 AM EDT Narrative Resulting Agency Comment Spec In Lab Clovis Clark MD CHEMISTRY ORDERAB LES [facility] documented in this encounter Visit Diagnoses Diagnosis H/O Graves' disease- Primary Personal history of other endocrine, metabolic, and immunity disorders 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
--- OUTSIDE RECORDS SUMMARY | 2024-04-04 12:24 | XMS_ITS | Encounter Summary ---
Author Organization [facility] Address [facility] [place] [address] Care Team Providers Care Public Relations Counselor Name Role Phone Jason Davila MD Primary Care Provider [phone] Encounter Details Date Type Department Care Team (Late st Contact Info) Description 01/13/2013 4:10 PM EDT Follow-Up [place] [address] Shiv Salgado MD [facility] [place] [address] Osmany Lucero MD [facility] [place] [address] DELVIS (acute kidney injury) (Primary Dx) Discharge [...] unspecified documented in this encounter Care Teams Public Relations Counselor Relationship Specialty Start Date End Date Jason Davila MD [address] [place] [address] [place] [address] PCP - General 01/13/13 12/09/23 marilyn noble Consulting Physician Gastroenterology 01/13/13 documented as of this encounter
--- OUTSIDE RECORDS SUMMARY | 2024-04-04 12:24 | XMS_ITS | Encounter Summary ---
Author Organization [facility] Address [facility] [place] [address] Care Team Providers Care International Banker Name Role Phone Lonny Davila MD Primary Care Provider [phone] Reason for Visit * Reason Comments Acute Kidney Injury Encounter Details Date Type Department Care Team (Late st Contact Info) Description 02/20/2013 4:00 PM EDT Follow-Up [place] [address] Shiv Salgado MD [facility] [place] [address] DELVIS (acute kidney injury) (Primary Dx); Anemia; [...] AM EDT The relevant details regarding Anum Montseabelle were reviewed with Dr. Salgado. The assessment andplan were formulated in discussion with me and I agree with them as documented, with the following additions. I have seen and examined the patient, providing the ulloa components as outlined below. I agree with Dr. Salgado's exam. Renal function improved. * Shiv Salgado MD - 02/21/2013 10:55 AM EDT [facility] Nephrology/Hypertension Follow Up Anum Henriquez [id number] 1960 ID: [id number] y.o. female for f/u visit for TTP. 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 01/03/13 01/13/13 Flynn Frausto MD Vkfrpzorwep-Zdrujzyxc-Hmv C-Mn 500-400 mg Cap 12/03/09 01/13/13 Allergies [...] bleed 5. Probable rt hydrosalpinx -f/u w PCP/body painter 6. Graves disease F/u w Endo Plan: Follow up: 3 month Seen and Discussed w/ Dr. Nic Salgado MD Nephrology Fellow Pager# [phone] LONNY DAVILA MD [address] [place] [address] [place], [place] [id number] documented in this encounter Miscellaneous Notes * [...] storm documented in this encounter Care Teams International Banker Relationship Specialty Start Date End Date Lonny Davila MD [address] [place] [address] [address] [place] [address] PCP - General 01/13/13 12/09/23 marilyn noble Consulting Physician Gastroenterology 01/13/13 documented as of this encounter
--- OUTSIDE RECORDS SUMMARY | 2024-04-04 12:24 | XMS_ITS | Encounter Summary ---
Author Organization [facility] Address [facility] [place] [address] Care Team Providers Care Rapid Extractor Operator Name Role Phone Jason Davila MD Primary Care Provider [phone] Encounter Details Date Type Department Care Team (Late st Contact Info) Description 01/13/2013 Orders [place] [address] Ani Hernandez APRN [facility] [place] [address] intermediate frame tender current use of antibiotics (Primary Dx) Social [...] Creatine Kinase 53 0 - 160 unit/L [facility] Blood specimen (specimen) 01/13/2013 12:10 PM EDT 01/13/2013 12:15 PM EDT Narrative Resulting Agency Comment Spec In Lab Glen Rodriguez MD CHEMISTRY ORDERABLES [facility] * (ABNORMAL) Comprehensive metabolic panel (non-fasting) (01/13/2013 12:10 PM EDT) [facility] Glucose 100 60 - 199 mg/dL [...] In Lab Glen Rodriguez MD CHEMISTRY ORDERABLES [facility] * (ABNORMAL) CBC (with Diff) (01/13/2013 12:10 [...] Glen Rodriguez MD H[facility]ATOLOGY ORDERABLE S [facility] documented in this encounter Visit Diagnoses Diagnosis intermediate frame tender current use of antibiotics- Primary Encounter for long-term (current) use of antibiotics documented in this encounter Care Teams Rapid Extractor Operator Relationship Specialty Start Date End Date Jason Davila MD [address] [place] [address] PCP - General 01/13/13 12/09/23 marilyn noble Consulting Physician Gastroenterology 01/13/13 documented as of this encounter
--- OUTSIDE RECORDS SUMMARY | 2024-04-04 12:24 | XMS_ITS | Encounter Summary ---
Author Organization [facility] Address [facility] [place] [address] Care Team Providers Care Spine Nurse Name Role Phone Lonny Davila MD Primary Care Provider [phone] Reason for Referral * Consultation (Routine) - Closed Specialty Diagnoses / Procedures Referred By Phan pham Referred To Contact Gastroenterology Diagnoses Abdominal pain Brian Griffin MD [facility] [place] [address] [facility] [address] [place] [address] Referral ID Status Reason Start Date Expiration Date V isits Requested Visits Authorized [id number] Closed Consult, Test & Treat 01/15/2013 07/14/2013 1 1 Reason for Visit * Reason Comments Acute Kidney Injury Encounter Details Date Type Department Care Team (Latest Contact Info) Description 01/13/2013 3:30 PM EDT Follow-Up [place] [address] Brian Griffin MD [facility] [address] Shiv Salgado MD [facility] [place] [address] Abdominal pain (Primary Dx); History [...] Salgado MD - 01/13/2013 4:24 PM EDT [facility] Nephrology/Hypertension Follow Up Anum Henriquez [id number] 1960 ID: [id number] y.o. female for f/u visit for TTP. 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 01/03/13 01/13/13 Flynn Frausto MD Ccyieizkkqq-Uxhbioyit-Glu C-Mn 500-400 mg Cap 12/03/09 01/13/13 Allergies [...] bleed 5. Probable rt hydrosalpinx -f/u w PCP/pulp refiner operator 6. Graves disease F/u w Endo on 01/14 Plan: Follow up: 1 month Seen and Discussed w/ Dr. Mora Salgado MD Nephrology Fellow Pager# [phone] LONNY DAVILA MD [address] [place] [address] [place] [address] documented in this encounter Miscellaneous Notes [...] unspecified documented in this encounter Care Teams Spine Nurse Relationship Specialty Start Date End Date Lonny Davila MD [address] [place] [address] PCP - General 01/13/13 12/09/23 marilyn noble Consulting Physician Gastroenterology 01/13/13 documented as of this encounter
--- OUTSIDE RECORDS SUMMARY | 2024-04-04 12:24 | XMS_ITS | Encounter Summary ---
Author Organization [facility] Address [facility] [place] [address] Care Team Providers Care Clothes Wringer Name Role Phone Lonny Davila MD Primary Care Provider Reason for Visit * Reason Comments Follow-up Encounter Details Date Type Department Care Team (Late st Contact Info) Description 01/22/2013 3:00 PM EDT Follow-Up Hematology Oncology at [address] [address] Fabi Romero MD [facility] DR [place] [address] Acquired TTP (Primary Dx) Discharge Disposition: Home [...] - 01/22/2013 3:44 PM [place] [address] FOLLOW-UP PATIENT EVALUATION PROBLEM LIST: Patient Active [...] Range: 110-220 unit/L 198 01/07/13 from [facility] 01/22/13 Wbc 5.8 3.4 hgb 9.9 10.2 [...] 2012, after several days of hospitalization at [facility]. She initially presented there with bloody diarrhea and abdominal distention. During her course there, she developed a drop in her hemoglobin and platelet count and slowly developed mild renal insufficiency. At that point, TTP was suspected, and she was transferred to [facility]. 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 She was hospitalized at [facility] from December 13 to December [...] f/u with US and will refer to AIRCRAFT CHARTER DISPATCHER if necessary. 7. MRSA bacteremia: She completed [...] microangiopathy documented in this encounter Care Teams Clothes Wringer Relationship Specialty Start Date End Date Lonny Davila MD [address] [place] [address] [place] [address] PCP - General 01/13/13 12/09/23 marilyn noble Consulting Physician Gastroenterology 01/13/13 documented as of this encounter
--- OUTSIDE RECORDS SUMMARY | 2024-04-04 12:24 | XMS_ITS | Encounter Summary ---
Author Organization [facility] Address [facility] [place] [address] Care Team Providers Care Supervisor Steel Division Name Role Phone Jason Davila MD Primary Care Provider [phone] Encounter Details Date Type Department Care Team (Latest Contact Info) Description 01/13/2013 11:51 AM EDT - 01/13/2013 11:59 PM EDT Hospital [place] [address] Glen Rodriguez MD [facility] [place] [address] skilled nursing current use of antibiotics Discharge Disposition: Home [...] (WITH DIFF) Routine 01/13/2013 12:10 PM EDT intermediate teacher current use of antibiotics LIPASE Routine 01/13/2013 12:10 PM EDT CK Routine 01/13/2013 12:10 PM EDT skilled nursing current use of antibiotics COMPREHENSIVE METABOLIC PANEL Routine 01/13/2013 12:10 PM EDT intermediate teacher current use of antibiotics documented in this [...] Rodriguez MD CHEMISTRY ORDERABLES Performing Organization Address [facility] Co de Phone Number CERELIO ARCOSENNIUM * (ABNORMAL) Comprehensive metabolic panel (non-fasting) (01/13/2013 12:10 PM EDT) Glucose 100 60 - 199 mg/dL CERNER MILLENNIUM Comment:Diabetes: >=200 mg/d L plus symptoms Blood Urea Nitrogen 31(H) 8 - 18 mg/dL CERNER MILLENNIUM Creatinine 1.85(H) 0.70 - 1.20 mg/dL CERNER MILLENNIUM Comment: Please note that the pediatric reference intervals supplied above were not validated at [facility]. Results from pediatric patients should be interpreted [...] In Lab Glen Rodriguez MD CHEMISTRY ORDERABLES [facility] * (ABNORMAL) CBC (with Diff) [...] MD HEMATOLOGY ORDERABLE S Performing Organization Address City/State/[facility] Co de Phone Number BAR NOE documented in this encounter Visit Diagnoses Diagnosis skilled nursing current use of antibiotics Encounter for long-term (current) use of antibiotics documented in this encounter Care Teams Supervisor Steel Division Relationship Specialty Start Date End Date Jason Davila MD [address] [place] [address] [place] [address] PCP - General 01/13/13 12/09/23 marilyn noble Consulting Physician Gastroenterology 01/13/13 documented as of this encounter
--- OUTSIDE RECORDS SUMMARY | 2024-04-04 12:24 | XMS_ITS | Encounter Summary ---
Author Organization [facility] Address [facility] [place] [address] Care Team Providers Care Oncology Navigator Name Role Phone Jason Davila MD Primary Care Provider [phone] Encounter Details Date Type Department Care Team (Latest Contact Info) Description 01/13/2013 11:50 AM EDT - 01/13/2013 11:59 PM EDT Hospital [place] [address] Tyson Connolly MD [facility] [place] [address] Graves disease Discharge Disposition: Home Social History [...] Thyroxine Index 4.2(L) 4.5 - 9.5 mcg/dL [facility] Comment: Females: 5. 5-10.5 mcg/dL Blood specimen (specimen) 01/13/2013 12:10 PM EDT 01/13/2013 12:15 PM EDT Narrative Resulting Agency Comment Spec In Lab Tyson Connolly MD CHEMISTRY ORDERABLES Performing Organization Address [facility] Co de Phone Number [facility] * (ABNORMAL) T4 (01/13/2013 12:10 PM EDT) [facility] T4 Total 4.9(L) 5.1 - 10.8 mcg/dL [facility] Comment: Reference Range: Tyrone Cord Blood: ??6.9-14.4 mcg/dL Females: ??7.2-14.2 mcg/dL Pediatric ranges: ??Interpret with caution-ranges have not been verified Blood specimen (specimen) 01/13/2013 12:10 PM EDT 01/13/2013 12:15 PM EDT Narrative Resulting Agency Comment Spec In Lab Tyson Connolly MD CHEMISTRY ORDERABLES Performing Organization Address [facility] Co de Phone Number [facility] * T Uptake (01/13/2013 12:10 PM EDT) Pathologist [facility] T Uptake 1.16 0.80 - 1.30 ratio [facility] Comment: Tup assay is directly proportional to Thyroid binding protein concentration, thus FT4 Index = TT4/Tup. Tyrone Cord Blood Reference Range: ??0.74-1.28. Blood specimen [...] MD CHEMISTRY ORDERABLES Performing Organization Address City/[facility] Co de Phone Number BAR PINEDAIUM * T4, free (01/13/2013 12:10 PM EDT) Free T4 0.96 0.90 - 1.60 ng/dL BAR NOE Blood specimen (specimen) 01/13/2013 12:10 PM EDT 01/13/2013 12:15 PM EDT Narrative Resulting Agency Comment Spec In Lab Tyson Connolly MD CHEMISTRY ORDERABLES Performing Organization Address [facility] Co de Phone Number BAR PINEDAIUM * TSH (01/13/2013 12:10 PM EDT) Thyroid Stimulating Hormone 0.63 0.27 - 4.20 mcIU/mL BAR PINEDAIUM Blood specimen (specimen) 01/13/2013 12:10 PM EDT 01/13/2013 12:15 PM EDT Narrative Resulting Agency Comment Spec In Lab Tyson Connolly MD CHEMISTRY ORDERABLES Performing Organization Address City/[facility] Co de Phone Number BAR NOE documented in this encounter Visit Diagnoses Diagnosis Graves disease 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
--- OUTSIDE RECORDS SUMMARY | 2024-04-04 12:24 | XMS_ITS | Encounter Summary ---
Author Organization [facility] Address [facility] [place] [address] Care Team Providers Care Crisis Intervention Specialist Name Role Phone Jason Davila MD Primary Care Provider [phone] Encounter Details Date Type Department Care Team (Latest Contact Info) Description 02/05/2013 1:01 PM EDT - 02/05/2013 11:59 PM EDT Hospital [place] [address] Clovis Varner MD [facility] [place] [address] Hyperthyroidism Discharge Disposition: Home Social History Tobacco [...] T3 Total 102 75 - 170 ng/dL [facility] Blood specimen (specimen) 02/05/2013 1:09 PM EDT 02/05/2013 1:12 PM EDT Narrative Resulting Agency Comment Spec In Lab Clovis Varner MD CHEMISTRY ORDERAB LES [facility] * T4, free (02/05/2013 1:09 PM EDT) Free T4 1.11 0.90 - 1.60 ng/dL [facility] Blood specimen (specimen) 02/05/2013 1:09 PM EDT 02/05/2013 1:12 PM EDT Narrative Resulting Agency Comment Spec In Lab Clovis Varner MD CHEMISTRY ORDERAB LES Performing Organization Address City/[facility] Co de Phone Number BAR NOE * TSH (02/05/2013 1:09 PM EDT) Thyroid Stimulating Hormone 1.75 0.27 - 4.20 mcIU/mL CERELIO ARCOSENNIUM Blood specimen (specimen) 02/05/2013 1:09 PM EDT 02/05/2013 1:12 PM EDT Narrative Resulting Agency Comment Spec In Lab Clovis Varner MD CHEMISTRY ORDERAB LES Performing Organization Address [facility] Co de Phone Number BAR NOE documented in this encounter Visit Diagnoses Diagnosis Hyperthyroidism Thyrotoxicosis without mention of goiter or other cause, without mention of thyrotoxic crisis or storm documented in this encounter Care Teams Crisis Intervention Specialist Relationship Specialty Start Date End Date Jason Davila MD [address] [place] [address] [place] [address] PCP - General 01/13/13 12/09/23 marilyn noble Consulting Physician Gastroenterology 01/13/13 documented as of this encounter
--- OUTSIDE RECORDS SUMMARY | 2024-04-04 12:24 | XMS_ITS | Encounter Summary ---
Author Organization [facility] Address [facility] [place] [address] Care Team Providers Care Community Service Officer Name Role Phone Jason Davila MD Primary Care Provider [phone] Reason for Visit * Reason Comments Follow-up Encounter Details Date Type Department Care Team (Late st Contact Info) Description 01/13/2013 4:15 PM EDT [place] [address] Ani Hernandez APRN [facility] [place] [address] [facility] current use of antibiotics (Primary Dx); Bacteremia [...] Patient Instructions * Patient Instructions* Magalys Tanner, REGIONAL ENGAGEMENT CONSULTANT - 01/13/2013 4:31 PM EDT Welcome to [facility]Base, your secure online access to your electronic medical record at [facility]. Using echoBase you will be able to send messages to your providers, view your test results, renew prescriptions, schedule appointments, and much more. Follow these instructions to enter your personal echoBase account for the first time: 1. Start your internet browser and type [email or web address] into the address bar. 2. In the New User box on the right-hand side of the Welcome page click the link that states, ???I have an activation code.?? 3. On the Identification page, follow these steps: a) Enter your echo[facility] activation code: [email or web address] b) Expires: 2013 4:31 PM IMPORTANT: This Activation Code will on the above mentioned date. If you do not sign up for echo[facility] by this date, you will need to request another activation code. c) Enter your date of , using the calendar tool provided. d) Enter your Zip code. e) Select ???submit?? to go to the next page. 4. On the Create Account page, follow these steps: a) Create a echoBase username. This can???t be changed, so choose [...] or your Access Code, please call for [place], for [place] or for [place]. If you need technical support, please e-mail [email or web address]. Remember, myD-[email or web address] is NOT for urgent needs! [...] as of this encounter Visit Diagnoses Diagnosis [facility] current use of antibiotics- Primary Encounter for long-term (current) use of antibiotics Bacteremia documented in this encounter Care Teams Community Service Officer Relationship Specialty Start Date End Date Jason Davila MD [address] [place] [address] [place] [address] PCP - General 01/13/13 12/09/23 marilyn noble Consulting Physician Gastroenterology 01/13/13 documented as of this encounter
--- OUTSIDE RECORDS SUMMARY | 2024-04-04 12:24 | XMS_ITS | Encounter Summary ---
Author Organization [facility] Address [facility] [place] [address] Care Team Providers Care Unit Aide Name Role Phone Ofelia Costello APRN Primary Care Provider [phone] Encounter Details Date Type Department Care Team (Late st Contact Info) Description 01/05/2013 Orders Only Hematology/[place] [address] Flynn Frausto MD [facility] [place] [address] Social History Tobacco Use Types Packs/Day Years [...] on filedocumented in this encounter Care Teams Unit Aide Relationship Specialty Start Date End Date Ofelia Costello APRN [facility] [address] [place] [id number] PCP - General 12/13/12 01/12/13 documented as of this encounter
--- OUTSIDE RECORDS SUMMARY | 2024-04-04 12:24 | XMS_ITS | Encounter Summary ---
Author Organization [facility] Address [facility] [place] [address] Care Team Providers Care Employment Service Specialist Name Role Phone Lonny Davila MD Primary Care Provider [phone] Reason for Visit * Reason Comments Acute Kidney Injury Encounter Details Date Type Department Care Team (Late st Contact Info) Description 05/22/2013 1:30 PM EST Follow-Up Ne[place] [address] Shiv Salgado MD [facility] [place] [address] Renal insufficiency (Primary Dx) Discharge Disposition: Home [...] Salgado MD - 05/22/2013 1:02 PM EST [facility] Nephrology/Hypertension Follow Up Anum Henriquez [id number] ID: [id number] y.o. female for f/u visit for TTP. 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 01/03/13 01/13/13 Flynn Frausto MD Benpdnkhwru-Sebmncmjg-Yac C-Mn 500-400 mg Cap 12/03/09 01/13/13 Allergies [...] bleed 5. 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 Graves disease F/u w Endo Plan: Follow up: 6 months Seen and Discussed w/ Dr. Nic Salgado MD Nephrology Fellow Pager# [phone] LONNY DAVILA MD [address] [place] [address] [address] [place], [place] [id number] documented in this encounter Miscellaneous Notes * [...] MD CHEMISTRY ORDERAB LES Performing Organization Address City/[facility]/ZIP Co de Phone Number CERNER MILLENNIUM * (ABNORMAL) Lipase (05/22/2013 3:25 PM EST) Lipase 77(H) 0 - 60 unit/L CERNER MILLENNIUM Blood specimen (specimen) 05/22/2013 3:25 PM EST 05/22/2013 3:40 PM EST Narrative Resulting Agency Comment Spec In Lab Osmany Lucero MD CHEMISTRY ORDERAB LES Performing Organization Address [facility] de Phone Number CERNER MILLENNIUM * (ABNORMAL) [...] MD CHEMISTRY ORDERAB LES Performing Organization Address City/[facility]/ZIP Co de Phone Number CERNER MILLENNIUM * (ABNORMAL) Basic Metabolic Panel (non-fasting) (05/22/2013 3:25 PM EST) Glucose 85 60 - 199 mg/dL CERNER MILLENNIUM Comment:Diabetes: >=200 mg/d L plus symptoms Blood Urea Nitrogen 19(H) 8 - 18 mg/dL CERNER MILLENNIUM Creatinine 1.24(H) 0.70 - 1.20 mg/dL CERNER MILLENNIUM Comment: Please note that the pediatric reference intervals supplied above were not validated at [facility]. Results from pediatric [...] Lab Osmany Lucero MD [facility]STRY ORDERAB LES [facility] [employer] GroupC[facility], [facility] * Differential, Automated (05/22/2013 1:15 PM EST) [...] ureter documented in this encounter Care Teams Employment Service Specialist Relationship Specialty Start Date End Date Lonny Davila MD [address] [place] [address] [place] [address] PCP - General 01/13/13 12/09/23 marilyn noble Consulting Physician Gastroenterology 01/13/13 documented as of this encounter
--- OUTSIDE RECORDS SUMMARY | 2024-04-04 12:25 | XMS_ITS | Encounter Summary ---
Author Organization [facility] Address [facility] [place] [address] Care Team Providers Care Account Executive Healthcare Name Role Phone Ofelia Costello APRN Primary Care Provider [phone] Encounter Details Date Type Department Care Team (Late st Contact Info) Description 12/30/2012 Orders Only Hematology [place] [address] Haris Jarvis MD [facility] [address] [place] [address] Social History Tobacco Use Types Packs/Day Years [...] is a non-reportable exam. Haris Jarvis MD [facility] FILM LIBRARY ORD ERABLES [facility] [address] [place] [address] documented in this encounter Visit Diagnoses Not on filedocumented in this encounter Care Teams Account Executive Healthcare Relationship Specialty Start Date End Date Ofelia Costello APRN [address] [address] PCP - General 12/13/12 01/12/13 documented as of this encounter
--- OUTSIDE RECORDS SUMMARY | 2024-04-04 12:25 | XMS_ITS | Encounter Summary ---
Author Organization [facility] Address [facility] [place] [address] Care Team Providers Care Superintendent Car Construction Name Role Phone Bakari Costello APRN Primary Care Provider [phone] Reason for Referral * Consultation (Routine) - Complete-Ref Provider Notified Specialty Diagnoses / Procedures Referred By Phan t Referred To Contact Diagnoses MRSA bacteremia Abraham Mesa MD [facility] [place] [address] [facility] [place] [address] [place] [id number] Referral ID Status Reason Start Date Expiration Date Visits Requested Visits Authorized [id number] Complete-Ref Provider Notified Assume Subset of Care 01/05/2013 07/04/2013 1 1 Encounter Details Date Type Department Care Team (Latest Contact Info) Description 12/30/2012 12:13 PM EDT - 01/05/2013 12:14 PM EDT Hospital Encounter Hematology [place] [address] Haris Jarvis MD [facility] [address] [place] [address] Dipak Verma MD [facility] [address] HEMATOLOGY/[place] [address] CHF (congestive heart failure) (Primary Dx); HUS [...] 52 y/o F with recent admit [place] [facility] [place] TTP-HUS c/b MRSA bacteremia [...] instructions Home Oxygen therapy: NEWLY PROVIDED by [facility] (as needed, 2L at rest, up to [...] (Giovanni) they may change this 01/10 3:330 [facility] (Di) 01/13 3:30pm [facility] Nephrology (Block) 01/14 10am [facility] Endo (Gardenia Kebede) Your Inpatient Doctors at [facility]: Attendings: Luci Soto Residents: Dr. [...] PCP: BAKARI COSTELLO APRN PCP phone number: [phone] Date of Admission: 12/30/2012 ( Hospital Day 5 days ) Service: Hem/Onc Team A - Pager [phone] Responsible Attending:Dipak Verma MD ID: 52 y.o. female with a hx of Graves' disease, recently discharged (12/27) from [facility] following treatment with plasma exchange [...] 226 NEUTROABS 3.58 3.25 2.69 [facility]13[facility]01/03/13 0501/02/13 0515 NA 134* 139 139 K 4.2 4.0 4.0 CL 96* 101 102 CO2 28 27 27 BUN 17 13 10 CREATININE 2.36* 2.54* 2.18* GLUCOSE -- -- -- Recent Labs [facility] 01/04/1313401/03/1352501/02/13 0515 CALCIUM 9.2 9.2 9.2 MAGNESIUM -- -- -- PHOS -- -- -- Recent Labs [facility] 01/02/13 1150 AST 17 ALT 15 ALKPHOS 52 BILITOT 0.2 BILIDIR 0.1 Recent Labs [facility] 01/04/1313401/03/1352501/02/13 0515 INR 1.6* 1.8* 1.8* PT 20.0* 21.2* 21.1* PTT 34 -- -- Recent Labs [facility] 01/04/1313401/03/1352501/02/13 0515 LDH 220 208 [...] of Graves' disease, recently discharged (12/27) from [facility] following treatment with plasma exchange [...] sx PEGGY BAÑUELOS MD 01/04/2013 Team Pager #[phone] I have personally seen and examined the [...] PCP: BAKARI COSTELLO APRN PCP phone number: [phone] Date of Admission: 12/30/2012 ( Hospital Day 4 days ) Service: Hem/Onc Team A - Pager [phone] Responsible Attending:Dipak Verma MD ID: 52 y.o. female with a hx of Graves' disease, recently discharged (12/27) from [facility] following treatment with plasma exchange [...] of Graves' disease, recently discharged (12/27) from [facility] following treatment with plasma exchange [...] sx PEGGY BAÑUELOS MD 01/03/2013 Team Pager #[phone] I have personally seen and examined the [...] Office of Care Management (OCM) / Clinical Duct Layer Supervisor (CRC) Continuing Care Note Care reviewed with [...] Referral to [facility] done 3. Referral to [facility] done 4. Referral to [facility] done> they will bring portable to room. Gorge Bishop RN Clinical Duct Layer Supervisor Office of Care Management Pager [phone] * Dez Bishop, RN - 01/02/2013 2:05 PM EDT Patient Name: Anum Henriquez Patient Age: 52 y.o. Birthdate: 1960 Admit date: 12/30/2012 Attending Physician: Dipak Verma MD Office of Care Management Clinical Duct Layer Supervisor Home IV Antibiotic Therapy Referral Note. Report received from Dr. Ruiz that patient will require continued home IV antibiotic therapy after discharge from the hospital. Met with patient/family to discuss vendor and visiting nurse choices for home IV antibiotic therapy. Reviewed Home Infusion Vendors and Home Health Agencies that serve patient???s address and accept patient???s insurance. Home Health Agency: Patient requested referral to [facility] PHONE: [phone] FAX: [phone] Referrals sent via edischarge. Home Infusion Vendor: Patient requested referral to [place], [place] or Referrals sent via edischarge. Diabetic Status: Patient is not a diabetic. IV access: Type of line: PICC Date placed: 12/27/12 Gorge Bishop RN Clinical Duct Layer Supervisor Hematology/Blood and Marrow Transplant Office of Care Management Pager [phone] * Dipak Verma MD - 01/02/2013 1:50 PM EDT Inpatient Hematology/Oncology/SCT Progress Note Patient info: Name: Anum Henriquez : 1960 PCP: BAKARI COSTELLO APRN PCP phone number: [phone] Date of Admission: 12/30/2012 ( Hospital Day 3 days ) Service: Hem/Onc Team A - Pager [phone] Responsible Attending:Dipak Verma MD ID: 52 y.o. female with a hx of Graves' disease, recently discharged (12/27) from [facility] following treatment with plasma exchange [...] of Graves' disease, recently discharged (12/27) from [facility] following treatment with plasma exchange [...] Dispo- Likely home pending resolution of sx PGEGY BAÑUELOS MD 01/02/2013 Team Pager #[phone] I have personally seen and examined the [...] No past medical history on file. Diet: [facility], 2 gm Na+, 1500 ml FR Height: 170 cm Admit Weight: 66.2 kg BMI: 23 UBW: 73.6 kg (12/17 Labs: Creat; 2.18, Est. GFR: 24 Medications: Lasix, Coumadin, Nexium, others noted A: Pt seen for initial nutrition evaluation. 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 Po [...] PCP: BAKARI COSTELLO APRN PCP phone number: [phone] Date of Admission: 12/30/2012 ( Hospital Day 2 days ) Service: Hem/Onc Team A - Pager [phone] Responsible Attending:Haris Jarvis MD ID: 52 y.o. female with a hx of Graves' disease, recently discharged (12/27) from [facility] following treatment with plasma exchange [...] of Graves' disease, recently discharged (12/27) from [facility] following treatment with plasma exchange [...] sx PEGGY BAÑUELOS MD 01/01/2013 Team Pager #[phone] I have personally seen and examined the [...] Office of Care Management (OCM) / Clinical Duct Layer Supervisor (CRC) Initial Assessment Care reviewed with hematology/blood [...] by mouth daily. 15 tablet 0 ??? Zcddqoxaveh-Ykgwlxjhu-Wwd C-Mn 500-400 mg Cap ??? Logan-3 Fatty Acids-Vitamin E (OMEGA-3 FISH OIL) 1,000-5 [...] of breath at rest and went to [facility] ED and transferred to [facility]. Previous functional status: Patient is independent with mobility/ambulation, transfers, ADL's, IADL's. Uses FWW Current functional status: Is ambulating independently in room> [x} Yes Rehab referral: [x} No Home set up: Single story home with no steps to enter. Family and social supports: with grown son and daughter that live locally. Has lived in [facility] all of her life. Mother and father are in a prison close by. Many friends and well connected in the community. Extended Emergency Contact Information Primary Emergency Contact: Liu Henriquez Relation: Durable Power of Rn Registry for Healthcare Secondary Emergency Contact: Liu Roberts Relation: Sibling Father: Venita Vora Advance directives: None on file. States she has a copy at home. Code status: Full Code Insurance: Commercial Financial Issues: [x} No Referral to financial services: [x} No Preferred Pharmacy:[address], [address] pharmacy[address] DME: Yes [facility] Home Health Agency: [x} Yes [facility] IV Access: Peripheral Edwardo-Cath PICC Tunneled Central Line Home Infusion: Yes Jomar TALENT ACQUISITION RELATIONSHIP MANAGER Referral: Kemal Tinoco TALENT ACQUISITION RELATIONSHIP MANAGER Referral indicated: [x} No Primary Care Physician: BAKARI COSTELLO APRN [phone] Primary [facility] Rubber Goods Finisher: Dr. Romero Referring Rubber Goods Finisher: Potential discharge needs: Undetermined Anticipated barriers to [...] [facility] . Dez Bishop RN Clinical Duct Layer Supervisor Office of Care Management Pager [phone] * Haris Jarvis MD - 12/31/2012 6:55 AM EDT Inpatient Hematology/Oncology/SCT Progress Note Patient info: Name: Anum Henriquez : 1960 PCP: BAKARI COSTELLO APRN PCP phone number: [phone] Date of Admission: 12/30/2012 ( Hospital Day 1 day ) Service: Hem/Onc Team A - Pager [phone] Responsible Attending:Haris Jarvis MD ID: 52 y.o. female with a hx of Graves' disease, recently discharged (12/27) from [facility] following treatment with plasma exchange [...] dropped. She was able to ambulate around [facility] unit this am without oxygen - [...] of Graves' disease, recently discharged (12/27) from [facility] following treatment with plasma exchange [...] sx PEGGY BAÑUELOS MD 12/31/2012 Team Pager #[phone] I have independently interviewed and examined this [...] Kemal Kumar - 12/30/2012 5:55 PM EDT Date Night Sitter Encounter Note Patient Name: Anum Henriquez : [id number] MR#: [id number] Admit Date: 12/30/2012 12:13 PM Hospital Day [...] PCP: BAKARI COSTELLO APRN PCP phone #: [phone] Outpt Rubber Goods Finisher/Oncologist: ID/Chief Complaint: 52-y/o female with a hx of Graves' disease, recently discharged (12/27) from [facility] following treatment with 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 History of Present Illness: Ms. Henriquez was discharged home from [facility] on 12/27/12 following treatment for [...] Concerned, she presented to the ED at [facility] for evaluation. She was noted to be saturating at mid 90s on RA and an ECG there showed NSR and no ST changes. She was transferred to [facility] and admitted to the Hematology [...] by mouth daily. 15 tablet 0 ??? Jljqxenqqwq-Coimvwrfi-Man C-Mn 500-400 mg Cap ??? Logan-3 Fatty Acids-Vitamin E (OMEGA-3 FISH OIL) 1,000-5 [...] DDIMER -- -- -- -- Recent Labs [facility] 12/27/12 03512/26/12 0342 12/25/12 1204 LDH 257* [...] of Graves' disease, recently discharged (12/27) from [facility] following treatment with plasma exchange [...] PEGGY BAÑUELOS MD 12/30/2012 Team Pager # [phone] I have independently interviewed and examined this [...] O2 tank and O2 on at 2L. [facility] to supply home O2. Pt discharged [...] (competes 3w course on 01/14); supplied by [employer] Nausea: scheduled pre-meal Zofran -Hypoxia felt to be multifactorial (TTP microthrombi + volume overload) -Monitor resolution of volume overload/effusions and consider adding daily lasix if renal function allows -Will f/u w/ Cards (Di in [place]); should get repeat TTE in 1 month [...] H&P) Ms. Henriquez was discharged home from [facility] on 12/27/12 following treatment for [...] Concerned, she presented to the ED at [facility] for evaluation. She was noted to be saturating at mid 90s on RA and an ECG there showed NSR and no ST changes. She was transferred to [facility] and admitted to the Hematology [...] Erythropoetin level 17 (range 4-24) ProBNP 01/01 65098; (12/20 2400 during previous admission) TSH 1.38; [...] 12 days. Qty: 9.6 mL Refills: 0 Sxsxguepkaf-Kculqupdt-Xxe C-Mn 500-400 mg Cap CALCIUM ORAL Medications STOPPED Dose Logan-3 Fatty Acids-Vitamin E (OMEGA-3 FISH OIL) 1,000-5 [...] instructions Home Oxygen therapy: NEWLY PROVIDED by [facility] (as needed, 2L at rest, up to [...] (Giovanni) they may change this 01/13 3:30pm [facility] Nephrology (Mora) 01/14 10am [facility] Endo (Gardenia Kebede) Your Inpatient Doctors at [facility]: Attendings: Luci Soto Residents: Dr. [...] 52 y/o F with recent admit to [facility] for TTP-HUS c/b MRSA bacteremia [...] 01/08/2013 11:00 AM Fabi Romero MD Hematology/Oncology [phone] [facility] 01/13/2013 3:30 PM Brian Velazco MD Nephrology [phone] [facility] 01/14/2013 10:05 AM Minor Kebede MD Endocrinology [phone] [facility] 01/14/2013 10:30 AM Clovis Varner MD Endocrinology [phone] [facility] Future Orders Please Complete By Expires OPAT: Order / Recommendation for Post Discharge IV Antibiotic Management [[id number] CPT(R)] Process Instructions: If no progress note charted, please enter Clinical details in comments. Scheduling Instructions: Comments: Please Fax all results to: OPAT Program Infectious Disease Section [facility], [place] [address] FAX: Line care instructions per [facility] OPAT Program protocol. After hours, please contact the Infectious Disease Physician multimedia production assistant at . If this order was signed greater than 72 hours prior to [facility] discharge, please call to confirm [...] bacteremia, line infection Referral for Outpatient Antibiotics [[id number] CPT(R)] Process Instructions: Scheduling Instructions: Comments: Questions: Responses: Patient location post discharge Home Start date 01/03/2013 Responsible MD post discharge contact info Out patient antibiotic team (OPAT Vendor / contact information [facility] requested IV abx Referral to Home Health [[id number] CPT(R)] Process Instructions: Scheduling Instructions: Comments: DOCUMENTATION FOR VNA SERVICES (INCLUDING THOSE PATIENTS WITH MEDICARE COVERAGE REQUIRING HOME VNA SERVICES AND/OR HOSPICE SERVICES) This is preliminary information related to the patient's needs and confirmation of Face to Face Encounter. The denoted information will require completion and an electronic signature by the physicianupon finalization of these orders. PATIENT'S LOCATION: Address: [address] [place] [address] [address] [facility] [address] Tel. #: [phone] (home) Cushion Padder's Name: In discussion with the attending physician, it is certified that this patient is under their care and that they, or a nurse practitioner, clinical nurse specialist or physician's family practice physician assistant who is working directly with them, [...] : INR Please send CMP to Renal [facility], Attn: Dr. Velazco Please send CBC, CMP & INR to [place], [place] Attn: Andrea Mobley/Giovanni Please send CBC, CMP, CK to [facility] Infectious Disease- OPAT Program, FAX: START OF CARE DATE: 01/04/13 All VNA agencies which cover the area of patient's residence have been reviewed, either verbally tanvir writing, and patient/family have chosen the home health care agency as follows for home services: HOME HEALTH CARE AGENCY: [facility] PHONE: [phone] FAX: [phone] VENDOR: [employer] PLASTIC MANAGER [facility] Address [address] [place] [id number] Equipment ordered: IV antibiotic supplies Ordering Provider: Dipak Verma (attending) Ordering Provider Phone #: [phone] [place] [address] Questions: Responses: Agency name and contact information [facility] Patient location post discharge Home What services [...] Contact Information: BAKARI COSTELLO APRN JOSE [address] [place] [address] Signed: FLYNN RUIZ MD Discharged: 01/05/2013 * [...] Per patient, will need prescriptions filled in [place] and sent down here before d/c. Oncoming [...] 01/01/2013 Admit Date: 12/30/2012 Place of Service: [facility] Responsible Attending: Dr. Blackwood Hospital Day [...] for TTP-HUS, MRSA bacteremia who present to [facility] after experiencing SOB, orthopnea at home after discharge from [facility] on 12/27. Regarding her breathing [...] leading to her seeking medical attention at [facility], and was transferred here. She [...] by mouth daily. 15 tablet 0 ??? Bwcndtrnkim-Xtirnsvtl-Rno C-Mn 500-400 mg Cap ??? Logan-3 Fatty Acids-Vitamin E (OMEGA-3 FISH OIL) 1,000-5 [...] 0.06* ProBNP Date Value Range Status 01/01/2013 05856* <=125 pg/mL Final Assessment: 52 y/o F with recent admit to [facility] for TTP-HUS c/b MRSA bacteremia [...] you for this consult. Jimmy Severino MD #[id number] STAFF ADDENDUM: I have reviewed the available [...] on abdomen d/t Lovenox injections. Patient's L [facility] site C, D, I. * Miscellaneous - [...] MD HEMATOLOGY ORDERABLE S Performing Organization Address [facility] de Phone Number BAR Neon MobileBRII * (ABNORMAL) APTT (01/05/2013 4:30 AM EDT) Partial Thromboplastin Time 36(H) 25 - 35 sec [facility] Battle[employer]NIUM Comment: Recommended therapeutic PTT range for full dose unfractionated heparin is 80-114 seconds. Blood specimen (specimen) 01/05/2013 4:30 AM EDT 01/05/2013 4:43 AM EDT Narrative Resulting Agency Comment Spec In Lab Dipak Robertson MD HEMATOLOGY ORDERABL ES Performing Organization Address [place] [facility] Phone Number BAR ARCOSBorrego Solar SystemsBRII * (ABNORMAL) Prothrombin Time (01/05/2013 4:30 AM EDT) Prothrombin Time 22.1(H) 12.0 - 15.0 sec [facility] [employer]NIUM Comment: [facility] Transfusion Committee [...] MD HEMATOLOGY ORDERABL ES Performing Organization Address [facility]/ZIP Co de Phone Number CERNER MILLENNIUM * Lactate Dehydrogenase (01/05/2013 4:30 AM EDT) Lactate Dehydrogenase 198 110 - 220 unit/L CERNER MILLENNIUM Blood specimen (specimen) 01/05/2013 4:30 AM EDT 01/05/2013 4:43 AM EDT Narrative Resulting Agency Comment Spec In Lab Haris Jarvis MD CHEMISTRY ORDERABLES Performing Organization Address City/[facility]/ZIP Co de Phone Number CERELIO ARCOSENNIUM * [...] BMP w/fasting Glucose (01/05/2013 4:30 AM EDT) [facility] Glucose Fasting 94 65 - 99 mg/dL [...] of Diabetes Mellitus, Position Statement from the [place] [employer]. ??Diabetes Care, Volume 33, Supplement 1, Jun 2009 Blood Urea Nitrogen 20(H) 8 - 18 mg/dL CERNER MILLENNIUM Creatinine 2.27(H) 0.70 - 1.20 mg/dL CERNER MILLENNIUM Comment: Please note that the pediatric reference intervals supplied above were not validated at [facility]. Results from pediatric patients should [...] Jarvis MD CHEMISTRY ORDERABLES Performing Organization Address [facility] Co de Phone Number [facility] * Thyroid Stimulating Immunoglobulin (01/04/2013 1:35 AM EDT) Pathologist [facility] <1.0 <=1.3 TSI index [facility] Comment: Test Performed by: [place] [address] Manager Servicing: Tulio Luna III, M.D. Blood specimen (specimen) 01/04/2013 1:35 AM EDT 01/06/2013 7:37 PM EDT Narrative Resulting Agency Comment Spec In Lab Dipak Robertson MD IMMUNOLOGY ORDERABL ES Performing Organization Address [facility] de Phone Number [facility] * CK (01/04/2013 1:35 AM EDT) Pathologist [facility] Creatine Kinase 45 0 - 160 unit/L [facility] Blood specimen (specimen) 01/04/2013 1:35 AM EDT 01/04/2013 1:45 AM EDT Narrative Resulting Agency Comment Spec In Lab Haris Jarvis MD CHEMISTRY ORDERABLES Performing Organization Address [facility] de Phone Number [facility] * Differential, Automated (01/04/2013 1:35 AM EDT) Pathologist [facility] Neutrophil % 64.5 34.0 - 71.0 % [facility] Neutrophil Absolute 3.58 1.50 - 6.30 x10(3)/mcL [...] Gran % 0.20 0.00 - 0.66 % [facility] MILLENNIUM Comment: Immature granulocytes(IG's)percentage and absolute count will include metamyelocytes, myelocytes, and promyelocytes. Blood smears from CBCs yielding IG's will be scanned manually for concordance. If this scan disagrees with the automated IG or if promyelocytes are noted, a manual differential will be performed. Immature Gran Absolute 0.01 0.00 - 0.05 x10(3)/mcL [facility] ISRRAELENNIUM Blood specimen (specimen) 01/04/2013 1:35 AM EDT 01/04/2013 1:44 AM EDT Haris Jarvis MD HEMATOLOGY ORDERABLE S [facility] * APTT (01/04/2013 1:35 AM EDT) Partial Thromboplastin Time 34 25 - 35 sec [facility] ARCOSENNIUM Comment: Recommended therapeutic PTT range for full dose unfractionated heparin is 80-114 seconds. Blood specimen (specimen) 01/04/2013 1:35 AM EDT 01/04/2013 1:43 AM EDT Narrative Resulting Agency Comment Spec In Lab Dipak Robertson MD HEMATOLOGY ORDERABL ES Performing Organization Address [facility] de Phone Number [facility] * (ABNORMAL) Prothrombin Time (01/04/2013 1:35 AM EDT) Prothrombin Time 20.0(H) 12.0 - 15.0 sec [facility] MILLENNIUM Comment: [facility] [...] MD HEMATOLOGY ORDERABL ES Performing Organization Address [place] [facility] Phone Number [facility] * Lactate Dehydrogenase (01/04/2013 1:35 AM EDT) Lactate Dehydrogenase 220 110 - 220 unit/L [facility] Blood specimen (specimen) 01/04/2013 1:35 AM EDT 01/04/2013 1:44 AM EDT Narrative Resulting Agency Comment Spec In Lab Haris Jarvis MD CHEMISTRY ORDERABLES Performing Organization Address [facility] Phone Number [facility] * (ABNORMAL) BMP w/fasting Glucose (01/04/2013 1:35 AM EDT) Glucose Fasting 102(H) 65 - 99 mg/dL [facility] Comment: ?Fasting* Glucose Interpretive Criteria Normal [...] of Diabetes Mellitus, Position Statement from the [place] [employer] Diabetes [employer]. ??Diabetes Care, Volume 33, Supplement 1, Jun 2009 Blood Urea Nitrogen 17 8 - 18 mg/dL CERNER MILLENNIUM Creatinine 2.36(H) 0.70 - 1.20 mg/dL CERNER MILLENNIUM Comment: Please note that the pediatric reference intervals supplied above were not validated at [facility] Results from pediatric patients should [...] Jarvis MD CHEMISTRY ORDERABLES Performing Organization Address [facility] Co de Phone Number BAR NOE [...] MD CHEMISTRY ORDERABLE S Performing Organization Address [facility] Co de Phone Number BAR NOE [...] MD HEMATOLOGY ORDERABLE S Performing Organization Address City/[facility]/ZIP Co de Phone Number [facility] * Lactate Dehydrogenase (01/03/2013 5:26 AM EDT) [facility] Lactate Dehydrogenase 208 110 - 220 unit/L [facility] MILLENNIUM Blood specimen (specimen) 01/03/2013 5:26 AM EDT 01/03/2013 5:32 AM EDT Narrative Resulting Agency Comment Spec In Lab Haris Jarvis MD CHEMISTRY ORDERABLES Performing Organization Address [facility] Co de Phone Number [facility] * (ABNORMAL) BMP w/fasting Glucose (01/03/2013 5:26 AM EDT) [facility] Glucose Fasting 99 65 - 99 mg/dL [facility] Comment: ?Fasting* Glucose Interpretive Criteria Normal ?65-99 [...] of Diabetes Mellitus, Position Statement from the [place] Diabetes Association. ??Diabetes Care, Volume 33, Supplement 1, Jun 2009 Blood Urea Nitrogen 13 8 - 18 mg/dL [facility] Creatinine 2.54(H) 0.70 - 1.20 mg/dL CERNER MILLENNIUM Comment: Please note that the pediatric reference intervals supplied above were not validated at [facility] Results from pediatric patients should [...] 12.0 - 15.0 sec BAR ARCOSENNIUM Comment: [facility] Transfusion Committee [...] MD HEMATOLOGY ORDERABLE S Performing Organization Address [facility] Co de Phone Number BAR ARCOSENNIUM [...] MD HEMATOLOGY ORDERABLE S Performing Organization Address [facility]/ZIP Co de Phone Number BAR PINEDAIUM * [...] Jarvis MD CHEMISTRY ORDERABLES Performing Organization Address City/[facility]/ZIP Co de Phone Number CERNER MILLENNIUM * (ABNORMAL) Lipase (01/02/2013 11:50 AM EDT) Lipase 192(H) 0 - 60 unit/L CERNER MILLENNIUM Blood specimen (specimen) 01/02/2013 11:50 AM EDT 01/02/2013 12:03 PM EDT Narrative Resulting Agency Comment Spec In Lab Dipak Robertson MD CHEMISTRY ORDERABLE S Performing Organization Address [facility] Co de Phone Number CERNER MILLENNIUM [...] 2 Glycoprotein, IgM <21 <=20 unit(s) [facility] Comment: Ranges ? Units ----- ?----- Normal ?<21 Low Positive (+) ? 21-50 Moderate Positive (+) ?51-100 High Positive (+) ? >100 B2GPI Interp No comment [facility] Blood specimen (specimen) 01/02/2013 5:15 AM EDT 01/02/2013 8:14 AM EDT Narrative Resulting Agency Comment Spec In Lab Dipak Robertson MD IMMUNOLOGY ORDERABL [facility] * Cardiolipin Antibody Screen (01/02/2013 5:15 AM EDT) Cardiolipin Antibody IgG <23 <=22 GPL unit(s) [facility] Comment: Ranges ? GPL ------- ? ------ Normal ?<23 Low Positive ? 23-35 Moderate Positive ?36-50 High Positive ? >50 Cardiolipin Antibody IgM <11 <=10 MPL unit(s) [facility] Comment: Ranges ?MPL ----- ?----- Normal ?<11 Low Positive ? 11-20 Moderate Positive ?21-30 High Positive ? >30 Blood specimen (specimen) 01/02/2013 5:15 AM EDT 01/02/2013 8:14 AM EDT Narrative Resulting Agency Comment Spec In Lab Dipak Robertson MD IMMUNOLOGY ORDERABL ES Performing Organization Address [facility] de Phone Number [facility] * (ABNORMAL) Lactate Dehydrogenase (01/02/2013 5:15 AM EDT) Lactate Dehydrogenase 229(H) 110 - 220 unit/L [facility] Blood specimen (specimen) 01/02/2013 5:15 AM EDT 01/02/2013 5:22 AM EDT Narrative Resulting Agency Comment Spec In Lab Haris Jarvis MD CHEMISTRY ORDERABLES Performing Organization Address [facility] Co de Phone Number [facility] * (ABNORMAL) BMP w/fasting Glucose (01/02/2013 5:15 [...] of Diabetes Mellitus, Position Statement from the [place] Diabetes Association. ??Diabetes Care, Volume 33, Supplement 1, Jun 2009 Blood Urea Nitrogen 10 8 - 18 mg/dL CERNER MILLENNIUM Creatinine 2.18(H) 0.70 - 1.20 mg/dL CERNER MILLENNIUM Comment: Please note that the pediatric reference intervals supplied above were not validated at [facility] Results from pediatric patients should [...] Jarvis MD CHEMISTRY ORDERABLES Performing Organization Address [facility] de Phone Number BAR NOE * (ABNORMAL) Prothrombin Time (01/02/2013 5:15 AM EDT) Prothrombin Time 21.1(H) 12.0 - 15.0 sec BAR PINEDAIUM Comment: [facility] Transfusion Committee [...] MD HEMATOLOGY ORDERABLE S Performing Organization Address [place] [facility] Phone Number BAR NOE * Lupus Anticoagulant (01/02/2013 5:15 AM EDT) Lupus Anticoagulant Neg Neg BAR PINEDAIUM Blood specimen (specimen) 01/02/2013 5:15 AM EDT 01/02/2013 5:22 AM EDT Narrative Resulting Agency Comment Spec In Lab Dipak Robertson MD HEMATOLOGY ORDERABL ES Performing Organization Address [facility] de Phone Number BAR NOE * (ABNORMAL) [...] EKG 12 Lead (01/01/2013 9:22 AM EDT) [facility] Ventricular rate 79 BPM MUSE SYSTEM Atrial Rate 79 BPM MUSE SYSTEM P-R Interval 120 ms MUSE SYSTEM QRS Duration 76 ms MUSE SYSTEM Q-T Interval 500 ms MUSE SYSTEM QTC Calculated (Bezet) 573 ms MUSE SYSTEM Calculated P [place] 61 degrees MUSE SYSTEM Calculated R [place] 50 degrees MUSE SYSTEM Calculated T [place] 162 degrees MUSE SYSTEM INTERPRETATION Normal sinus [...] Free Thyroxine Index (01/01/2013 4:25 AM EDT) [facility] Free Thyroxine Index 7.6 4.5 - 9.5 mcg/dL [facility] Comment: Females: 5. 5-10.5 mcg/dL Blood specimen (specimen) 01/01/2013 4:25 AM EDT 01/01/2013 9:00 AM EDT Narrative Resulting Agency Comment Spec In Lab Haris Jarvis MD CHEMISTRY ORDERABLES [facility] * T4 (01/01/2013 4:25 AM EDT) T4 Total 7.6 5.1 - 10.8 mcg/dL [facility] Comment: Reference Range: Cord Blood: ??6.9-14.4 mcg/dL Females: ??7.2-14.2 mcg/dL Pediatric ranges: ??Interpret with caution-ranges have not been verified Blood specimen (specimen) 01/01/2013 4:25 AM EDT 01/01/2013 9:00 AM EDT Narrative Resulting Agency Comment Spec In Lab Haris Jarvis MD CHEMISTRY ORDERABLES Performing Organization Address [facility] Co de Phone Number [facility] * T Uptake (01/01/2013 4:25 AM EDT) Pathologist [facility] T Uptake 1.00 0.80 - 1.30 ratio [facility] Comment: Tup assay is directly proportional to Thyroid binding protein concentration, thus FT4 Index = TT4/Tup. Cord Blood Reference Range: ??0.74-1.28. Blood specimen (specimen) 01/01/2013 4:25 AM EDT 01/01/2013 9:00 AM EDT Narrative Resulting Agency Comment Spec In Lab Haris Jarvis MD CHEMISTRY ORDERABLES Performing Organization Address [facility] de Phone Number [facility] * T3 (01/01/2013 4:25 AM EDT) T3 Total 89 75 - 170 ng/dL [facility] Blood specimen (specimen) 01/01/2013 4:25 AM EDT 01/01/2013 9:00 AM EDT Narrative Resulting Agency Comment Spec In Lab Haris Jarvis MD CHEMISTRY ORDERABLES Performing Organization Address [facility] Co de Phone Number [facility] * TSH (01/01/2013 4:25 AM EDT) Thyroid Stimulating Hormone 1.38 0.27 - 4.20 mcIU/mL [facility] Blood specimen (specimen) 01/01/2013 4:25 AM EDT 01/01/2013 9:00 AM EDT Narrative Resulting Agency Comment Spec In Lab Haris Jarvis MD CHEMISTRY ORDERABLES Performing Organization Address City/[facility] Co de Phone Number [facility] * T4, free (01/01/2013 4:25 AM EDT) Free T4 1.15 0.90 - 1.60 ng/dL [facility] Blood specimen (specimen) 01/01/2013 4:25 AM EDT 01/01/2013 4:33 AM EDT Narrative Resulting Agency Comment Spec In Lab Haris Jarvis MD CHEMISTRY ORDERABLES Performing Organization Address [facility] de Phone Number [facility] * (ABNORMAL) Lipid panel (fasting) (01/01/2013 4:25 AM EDT) [facility] Cholesterol, Total 143 <=199 mg/dL [facility] Comment: Recommendations of the NCEP Adult Treatment Panel for the following risk cutoff thresholds for the [place] population: Desirable: <200 mg/dL Borderline High: 200-239 mg/dL High: > or = 240 mg/dL Triglyceride 118 <=149 mg/dL [facility] Comment: Reference Range: Normal triglycerides: ??<150 mg/dL Borderline high: ??150-199 mg/dL High: ??200-499 mg/dL Very high: ??>ip=092 mg/dL SNEHA 2001; 285(19):[phone] HDL Cholesterol 38(L) >=40 mg/dL [facility] Comment: Reference range: ??Low HDL: ?? < 40 mg/dL ??Normal: ?40-60 mg/dL ??Desirable: > 60 mg/dL SNEHA 2001; 285(19):[phone] LDL Cholesterol 81 <=99 mg/dL [facility] Comment: Reference range: ?? Optimal: ?<100 mg/dL ?? Near Optimal/Above Optimal: ?? 100-129 mg/dL ?? Borderline high: ?130-159 mg/dL ?? High: ? 160-189 mg/dL ?? Very high: ?>po=291 mg/dL SNEHA 2001: 285(19):[phone] Cholesterol/HDL Ratio 3.8 ratio CERNER MILLENNIUM Comment: A Cholesterol to HDL ratio below 4:1 is desirable. ??Studies suggest that increased CAD risk occurs at ratios above 5 for females and above 6 for men. ? [place] Heart Association ??(http://www.americanheart.org) ? Mariela Int Med, [...] MD HEMATOLOGY ORDERABLE S Performing Organization Address [facility] de Phone Number BAR PINEDAIUM * (ABNORMAL) pro-Brain Natriuretic Peptide (01/01/2013 4:25 AM EDT) NT-proBNP 23240(H) <=125 pg/mL BAR PINEDAIUM Blood specimen (specimen) 01/01/2013 4:25 AM EDT 01/01/2013 4:28 AM EDT Narrative Resulting Agency Comment Spec In Lab Haris Jarvis MD CHEMISTRY ORDERABLES Performing Organization Address [facility] de Phone Number BAR NOE * (ABNORMAL) Lactate Dehydrogenase (01/01/2013 4:25 AM EDT) Lactate Dehydrogenase 235(H) 110 - 220 unit/L BAR ARCOSENNIUM Blood specimen (specimen) 01/01/2013 4:25 AM EDT 01/01/2013 4:28 AM EDT Narrative Resulting Agency Comment Spec In Lab Haris Jarvis MD CHEMISTRY ORDERABLES Performing Organization Address [facility] Co de Phone Number CERNER MILLENNIUM * (ABNORMAL) BMP w/fasting Glucose (01/01/2013 4:25 AM EDT) [facility] Glucose Fasting 95 65 - 99 mg/dL [...] of Diabetes Mellitus, Position Statement from the [place] Diabetes Association. ??Diabetes Care, Volume 33, Supplement 1, Jun 2009 Blood Urea Nitrogen 11 8 - 18 mg/dL CERNER MILLENNIUM Creatinine 2.06(H) 0.70 - 1.20 mg/dL CERNER MILLENNIUM Comment: Please note that the pediatric reference intervals supplied above were not validated at [facility] Results from pediatric patients should [...] Jarvis MD CHEMISTRY ORDERABLES Performing Organization Address [facility] Co de Phone Number [employer] [employer] * (ABNORMAL) Cardiac Enzymes (01/01/2013 4:25 AM EDT) Troponin-T 0.06(H) <=0.03 ng/mL BAR [facility] Comment: 0.03 ng/mL: Represents the 99th percentile upper reference limit for normals. >0.03 ng/mL: Elevated cardiac troponin T level indicative of myocardial damage. Diagnosis of acute, evolving or recent NC requires a typical rise and gradual fall [...] consensus document of the Joint Society of Cardiology/[place] College of Cardiology Committee for the redefinition of myocardial infarction. Journal of the [place] College of Cardiology 2000; 36: 959-969] Creatine Kinase 35 0 - 160 unit/L BAR [facility] Blood specimen (specimen) 01/01/2013 4:25 AM EDT 01/01/2013 4:28 AM EDT Narrative Resulting Agency Comment Spec In Lab Haris Jarvis MD CHEMISTRY ORDERABLES Performing Organization Address [facility] Co de Phone Number BAR NOE [...] MD HEMATOLOGY ORDERABLE S Performing Organization Address [facility] de Phone Number BAR NOE * (ABNORMAL) Cardiac Enzymes (12/31/2012 7:55 PM EDT) Troponin-T 0.06(H) <=0.03 ng/mL [facility] Comment: 0.03 ng/mL: Represents the 99th percentile upper reference limit for normals. >0.03 ng/mL: Elevated cardiac troponin T level indicative of myocardial damage. Diagnosis of acute, evolving or recent NC requires a typical rise and gradual fall [...] consensus document of the Joint Society of Cardiology/[place] College of Cardiology Committee for the redefinition of myocardial infarction. Journal of the [place] College of Cardiology 2000; 36: 959-969] Creatine Kinase 46 0 - 160 unit/L [facility] Blood specimen (specimen) 12/31/2012 7:55 PM EDT 12/31/2012 8:03 PM EDT Narrative Resulting Agency Comment Spec In Lab Haris Jarvis MD CHEMISTRY ORDERABLES Performing Organization Address [facility] Co de Phone Number BAR NOE * Echo Transthoracic (Complete) (12/31/2012 3:06 PM EDT) Pathologist [facility] EF 40 HEARTLAB SYSTEM Anatomical Region Laterality Modality Other 12/31/2012 Narrative 12/31/2012 3:46 PM EDT Procedure: ? Transthoracic Echocardiogram Patient: ? KAREEM BENOIT N ? (Age): 1960(52) Med Rec#: ?[id number] ? Sex: ?F ? [place] [place] Ht / Wt: ??170(cm)/64(kg) Pt. Loc: ? Adult Floor ?BSA: ?1.74 Study Date: ?12/31/2012 ? Pt. Type: Inpatient Tape: ? Referring: Haris Jarvis Referring: TAMMY BAE Tax Evaluator: Rob Rubalcava [facility] Interpreting Fellow: Regis Silva ([id number]) Diagnosis: ??Shortness of breath (786.05) CPT Code(s): ??Echo Full (48052), ??Spectral Doppler (63861), ??Color Doppler (21607), Indication(s): ??Shortness of breath Rhythm: HR ?BP [...] ? Mid-Inferior ?Hypokinetic ? Mid-Inferoseptal ?Hypokinetic ? [place]-Septal ? Hypokinetic ? [place]-Anterior ? Hypokinetic ? [place]-Lateral ?Hypokinetic ? [place]-Inferior ? Hypokinetic ? [place]-Tip ?Hypokinetic ? Chambers ?Value ?Units (Range) ? [...] 12/31/2012 15:45:49 Images reviewed and interpretation verified [facility] Cardiac Ultrasound Laboratory Procedure Note Adolph Garcia MD - 12/31/2012 Procedure: Transthoracic Echocardiogram Patient: KAREEM Kay DOB(Age): 1960(52) Med Rec#: [id number] Sex: F Site Loc: [facility] Ht / Wt: 170(cm)/64(kg) Pt. Loc: Adult Floor BSA: 1.74 Study Date: 12/31/2012 Pt. Type: Inpatient Tape: Referring: Haris Jarvis Referring: TAMMY BAE Tax Evaluator: Rob Rubalcava [facility] Interpreting Fellow: Regis Silva ([id number]) Diagnosis: Shortness of breath (786.05) CPT Code(s): Echo Full (87399), Spectral Doppler (82616), Color Doppler (51988), Indication(s): Shortness of breath Rhythm: HR BP [...] change in the inferior vena cava dimension. [facility] Two-dimensional echo, spectral Doppler and color Doppler performed. Wall Motion: Segment Name Rest Base-Anteroseptal Hypokinetic Base-Anterior Hypokinetic Base-Anterolateral Hypokinetic Base-Posterolateral Hypokinetic Base-Inferior Hypokinetic Base-Inferoseptal Hypokinetic Mid-Anteroseptal Hypokinetic Mid-Anterior Hypokinetic Mid-Anterolateral Hypokinetic Mid-Posterolateral Hypokinetic Mid-Inferior Hypokinetic Mid-Inferoseptal Hypokinetic [place]-Septal Hypokinetic [place]-Anterior Hypokinetic [place]-Lateral Hypokinetic [place]-Inferior Hypokinetic [place]-Tip Hypokinetic Chambers Value Units (Range) EF Bi-p [...] 12/31/2012 15:45:49 Images reviewed and interpretation verified [facility] Cardiac Ultrasound Laboratory Haris Jarvis MD [...] EDT Haris Jarvis MD HEMATOLOGY ORDERABLE S [facility] * (ABNORMAL) BMP w/fasting Glucose (12/31/2012 [...] of Diabetes Mellitus, Position Statement from the [place] Diabetes Association. ??Diabetes Care, Volume 33, Supplement 1, Jun 2009 Blood Urea Nitrogen 11 8 - 18 mg/dL CERNER MILLENNIUM Creatinine 2.14(H) 0.70 - 1.20 mg/dL CERNER MILLENNIUM Comment: Please note that the pediatric reference intervals supplied above were not validated at [facility]. Results from pediatric patients should [...] Jarvis MD CHEMISTRY ORDERABLES Performing Organization Address [facility] Co de Phone Number BAR PINEDAIUM [...] MD HEMATOLOGY ORDERABLE S Performing Organization Address [facility] de Phone Number BAR NOE * (ABNORMAL) [...] BMP w/fasting Glucose (12/30/2012 4:17 PM EDT) [facility] Glucose Fasting 100(H) 65 - 99 mg/dL [...] of Diabetes Mellitus, Position Statement from the [place] Diabetes Association. ??Diabetes Care, Volume 33, Supplement 1, Jun 2009 Blood Urea Nitrogen 11 8 - 18 mg/dL CERNER MILLENNIUM Creatinine 2.02(H) 0.70 - 1.20 mg/dL CERNER MILLENNIUM Comment: Please note that the pediatric reference intervals supplied above were not validated at [facility] Results from pediatric patients should [...] MD CHEMISTRY ORDERABLES Performing Organization Address City/State/[facility] Co de Phone Number BAR NOE [...] Haris Jarvis MD HEMATOLOGY ORDERABLE S BAR ARCOSBorrego Solar SystemsIUM * Vancomycin, trough (12/30/2012 3:29 PM EDT) [...] dose on Sun01/04/13 at 1100, Until Discontinued, Routine, Indication for (Active or Suspected): for Bacteremia/Sepsis, Restricted Antibiotic: Please indicate the most appropriate choice: ID Approval by Abraham Mesa Given 01/04/2013 11:58 AM EDT 340 mg 113.6 mL/hr enoxaparin (LOVENOX) injection 80 mg 80 [...] of use? 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 Please check for lab orders, Routine, Indication for (Active or Suspected): for Bacteremia/Sepsis Given 01/02/2013 3:09 PM EDT 750 mg [...] mL/hr, EVERY 24 HOURS, First dose on 01/04/13 at 1100, Until Discontinued, Routine, Indication for (Active or Suspected): for Bacteremia/Sepsis, Restricted Antibiotic: Please indicate the most appropriate choice: ID Approval by Abraham Mesa 1158 (Given - Provider: Bhumi Duenas RN) [...] Lora RN) 0609 (Given - Provider: Radha Burgos, DRU) 0626 (Given - Provider: Radha Burgos RN) [...] Duenas RN) 0811 (Given - Provider: Sera Lucas, DRU) metoprolol succinate (TOPROL-XL) XL tablet 100 mg 100 mg, Oral, DAILY, First dose on Sun01/03/13 at 1445, Until Discontinued, Routine 1708 (Given - Provider: Brittany Burt RN) 0928 (Given - Provider: Bhumi Duenas, DRU) 0811 (Given - Provider: Sera Lucas RN) metoprolol tartrate (LOPRESSOR) tablet 25 mg (CANCELED) 25 mg, Oral, EVERY 6 HOURS SCHEDULED, First dose (after last modification) on Sun01/01/13 at 1200, Until Discontinued, Hold for SBP < 90 or HR < 60, Routine 0014 (Given - Provider: Odalis Chung RN)0530 (Given - Provider: Odalis Chung RN)1217 (Given - Provider: Odalis Lora, DRU) ondansetron (ZOFRAN) tablet 4 mg 4 mg, [...] Burt, DRU) 0140 (Given - Provider: Radha Burgos RN)1445 (Given - Provider: Bhumi Duenas, DRU) 0245 (Given - Provider: Radha Burgos RN) [...] Oral, 3 TIMES DAILY PRN, Starting on Ninfa 01/02/13 at 1039, Until 01/05/13 at 1414, Heartburn, Routine 0533 (Given - Provider: Odalis Chung RN)1218 (Given - Provider: Odalis Lora, RDU) 1246 (Given - Provider: Bhumi Duenas, DRU) calcium carbonate (TUMS) chewable tablet 500-1,000 mg 500-1,000 mg, Oral, EVERY 4 HOURS PRN, Starting on Ninfa 01/02/13 at 1038, Until 01/05/13 at 1414, Heartburn, [...] DRU) 1837 (Given - Provider: Bhumi Duenas RN) LORazepam (ATIVAN) tablet 0.5 mg 0.5 mg, Oral, EVERY 6 HOURS PRN, Starting on 12/31/12 at 1828, Until 01/05/13 at 1414, Anxiety, Insomnia, Can give additional 0.5mg after 30 minutes if initial 0.5mg is ineffective, Routine 1135 (Given - Provider: Odalis Lora, DRU)2109 (Given - Provider: Radha Burgos, DRU) 203 (Given - Provider: Radha Burgos RN) ondansetron (ZOFRAN-ODT) oral disintegrating tablet 4 mg (CANCELED) 4 mg, Oral, EVERY 8 HOURS PRN, Starting on 12/30/12 at 1425, Until 01/05/13 at 0754, Nausea, Routine 0531 (Given - Provider: Odalis Chung, DRU)1630 (Given - Provider: Brittany Burt, DRU) 1246 (Given - Provider: Bhumi Duenas, DRU) 0442 (Given - Provider: Radha Burgos, RDU) documented in this encounter Care Teams Superintendent [employer] Relationship Specialty Start Date End Date Bakrai Costello APRN [address] [address] PCP - General 12/13/12 01/12/13 documented as of this encounter
--- OUTSIDE RECORDS SUMMARY | 2024-04-04 12:25 | XMS_ITS | Encounter Summary ---
Author Organization [facility] Address [facility] [address] Care Team Providers Care Ocean Freight Manager Name Role Phone Ofelia Costello APRN Primary Care Provider [phone] Encounter Details Date Type Department Care Team (Late st Contact Info) Description 12/30/2012 Orders Only Hematology [place] [address] Haris Jarvis MD [facility] DR HEMATOLOGY [place] [address] Social History Tobacco Use Types Packs/Day Years [...] is a non-reportable exam. Haris Jarvis MD [facility] FILM LIBRARY ORD ERABLES [facility] [address] [place] [address] documented in this encounter Visit Diagnoses Not on filedocumented in this encounter Care Teams Ocean Freight Manager Relationship Specialty Start Date End Date Ofelia Costello APRN [address] [address] PCP - General 12/13/12 01/12/13 documented as of this encounter
--- OUTSIDE RECORDS SUMMARY | 2024-04-04 12:25 | XMS_ITS | Encounter Summary ---
Author Organization [facility] Address [facility] [place] [address] Care Team Providers Care Confectionery Maker Name Role Phone Ofelia Costello APRN Primary Care Provider [phone] Encounter Details Date Type Department Care Team (Late st Contact Info) Description 12/28/2012 Telephone [place]ology [place] [address] Demetris Hall MD [facility] [address] HEMATOLOGY/[place] [address] Social History Tobacco Use Types Packs/Day Years [...] on filedocumented in this encounter Care Teams Confectionery Maker Relationship Specialty Start Date End Date Ofelia Costello APRN [address] [address] PCP - General 12/13/12 01/12/13 documented as of this encounter
--- OUTSIDE RECORDS SUMMARY | 2024-04-04 12:25 | XMS_ITS | Encounter Summary ---
Author Organization [facility] Address [facility] [place] [address] Care Team Providers Care Forging Dies Final Finisher Name Role Phone Ofelia Costello APRN Primary Care Provider [phone] Encounter Details Date Type Department Care Team (Late st Contact Info) Description 12/30/2012 Telephone Hematology [place] [address] [facility] HEMATOLGY/[place] [address] Social History Tobacco Use Types Packs/Day Years [...] is from: Outside Provider: Dr. Echols, from [facility] Reason for call: Mgmt coordination for new SOB Brief history: Ms. Henriquez presented to [facility] with new acute SOB with sat initially 84-86% on RAup to 95% with 3L. No clear precipitant, not signs of infection including fever, cough, diarrhea. 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
--- OUTSIDE RECORDS SUMMARY | 2024-04-04 12:27 | XMS_ITS | Encounter Summary ---
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 Name Role Phone Bakari Costello APRN Primary Care Provider [phone] Reason for Referral * Consultation (Routine) - Duplicate Referral Specialty Diagnoses / Procedures Referred By Contjodi t Referred To Contact Diagnoses MRSA bacteremia HUS (hemolytic uremic syndrome) Haris Jarvis MD [facility] [address] [place]EM[place] [address] Tyson Patel MD [facility] [place] [address] Referral ID Status Reason Start Date Expiration Date Visits Requested Visits Authorized [id number] Duplicate Referral Assume Subset of Care 12/27/2012 06/25/2013 1 1 Encounter Details Date Type Department Care Team (Latest Contact Info) Description 12/13/2012 7:56 PM EDT - 12/27/2012 6:34 PM EDT Hospital Encounter 1 [place] [phone] Ant Mendoza MD [facility] [place] [address] Luis E Trotter MD [facility] [place] [address] Yudith Raya DO [facility] [place] [address] Fabi Bliss MD [facility] [address] [place]EMATOLOGY [place] [address] Ankit Ohara MD [facility] [address] [place] [address] Haris Jarvis MD [facility] [address] [place]EMATOLOGY [place] [address] TTP (thrombotic thrombocytopenic purpura) (Primary Dx); Thrombocytopenia; [...] 12/30/2012 12:45PM, Provider: Dr. Rob Mejia, Location: [place] [id number], Your Inpatient Doctor(s) at [facility]: Attendings: Dr. Cristina, Dr. Ohara, Dr. Bliss Fellow: Dr. Gomez Residents: Dr. Guzmán, Dr. Aleman Calciner Operator: Dr. Kimball * Attachments The following attachments cannot be sent through Care Everywhere. * PERIPHERALLY INSERTED CENTRAL CATHETER (PICC): AFTER YOUR VISIT (CAMEROONIAN) documented in this encounter Medications at Time [...] it-Vit C-Mn 500-400 mg Cap 12/03/2009 01/13/2013 Alba-3 Fatty Acids-Vitamin E (OMEGA-3 FISH OIL) 1,000-5 mg-unit Cap 12/03/2009 01/06/20 13 documented as of this encounter Progress Notes * Carmen Strickland - 12/27/2012 6:30 PM EDT Mirella Encounter Note Patient Name: Anum Henriquez : [id number] MR#: [id number] Admit Date: 12/13/2012 7:56 PM Hospital Day 14 days Narrative: Follow up visit with patient prior to her discharge. Patient's present at the time of visit. Assessment: Patient expressed with excitement that she was going home today. She related the challenges of her hospitalization but was grateful to the members of the [facility] medical staff for their services. Intervention and [...] Velazco MD - 12/27/2012 5:39 PM EDT [facility] INPATIENT FOLLOW UP PATIENT: Anum Henriquez : 1960 ROOM: [address] [place] [address] ID: 52 y.o. female admitted for microangiopathic [...] daily until 12/20. (received 7 treatment total). CPTNZP18 is normal and infectious work-up is negative so because of gadolinium exposure and mental status improved after hd. DELVIS- Cr stable. Non oliguric. Stable chemistries No indications for [employer]. Pt is getting discharged today. Plan to check labs in 1 week at [facility] and she has an appointment [...] Office of Care Management (OCM) / Clinical Ethics Officer (CRC) Continuing Care Note Care reviewed with hematology/blood and marrow transplant team and at interdisciplinary discharge rounds. . Situation: Discharge planned for today on home on IV abx therapy. Today is Day 8 Vancomycin IV for MRSA bacteremia. Arrangements made with [employer] for delivery of supplies to hospital room before discharge to home. Tamar Bond is the VNA that will go to the home tomorrow for first hang around 3 pm. Lovenox is ready for supervisor opening and picking at their local pharmacy, No PA needed. Single lumen PICC placed. [facility]. Background: PMH of [place] on methimazole, [...] be drawn by VNA and faxed to [facility] 4. Follows up with Dr. Bliss in [facility] on 01/01. 5. First visit by VNA to be on tomorrow at approx 3 Pm. Future Appointments Date Time Provider Department Center 01/01/2013 12:35 PM Fabi Bliss MD [facility] H[facility]ONC [facility] 01/13/2013 3:30 PM Brian Velazco MD [facility] 01/14/2013 10:05 AM Minor Kebede MD [facility] 01/14/2013 10:30 AM Clovis Varner MD [facility] M. Dez Bishop RN Clinical Ethics Officer Office of Care Management Pager [phone] * Leticia Hardy, PT - 12/27/2012 3:45 [...] discharge later today. ~Leticia Hardy PT Pager [phone]. * Tyson Patel MD - 12/27/2012 1:10 [...] outpatient. Recommendations: - Vancomycin 750 mg IV [id number] x3 weeks total since line removal (12/24 [...] minutes Total timed interventions: 15 minutes Pager: [phone] KAREN CATHERINE PT Physical Therapy Rehabilitation Department * Brian Velazco MD - 12/26/2012 3:12 PM EDT [facility] INPATIENT FOLLOW UP PATIENT: Anum Henriquez : 1960 ROOM: [address] [place] [address] ID: 52 y.o. female admitted for microangiopathic [...] daily until 12/20. (received 7 treatment total). TZGQCZ89 is normal and infectious work-up is negative so because of gadolinium exposure and mental status improved after hd. DELVIS- Cr stable off dialysis. Good urine output. No signs of uremia. Stable chemistries. Mild fluid overload. No indications for [employer]. Will continue to follow cr and urine [...] PM EDT Office of Care Management Clinical Ethics Officer Home IV Antibiotic Therapy Referral Note. Report received from Dr. Frausto that patient will require continued home IV antibiotic therapy after discharge from the hospital. Met with patient/family to discuss vendor and visiting nurse choices for home IV antibiotic therapy. Reviewed Home Infusion Vendors and Home Health Agencies that serve patient???s address and accept patient???s insurance. Home Health Agency: Patient requested referral to [facility] [place] [facility]. PHONE: [phone] FAX: [phone] Referrals sent via edischarge. Home Infusion Vendor: Patient requested referral to [place], [place] or Referrals sent via edischarge. Diabetic Status: Patient is not a diabetic. IV access: Type of line: PICC single lumen pendng Date placed: pending Gorge Bishop RN Clinical Ethics Officer Hematology/Blood and Marrow Transplant Office of Care Management Pager [phone] * Clovis Varner MD - 12/26/2012 11:42 [...] Rebecca Kumar - 12/26/2012 11:18 AM EDT Informatics Coordinator Encounter Note Patient Name: Anum Henriquez : [id number] MR#: [id number] Admit Date: 12/13/2012 7:56 PM Hospital Day [...] AAOx3, No double vision this AM, EOMI, Dcdfma-ra-cben improved, no past- pointing; rapid alternating movement and kpdi-kn-fjms intact. Patellar and biceps tendon reflexes are [...] + delirium. Possible diagnosis include ?Lupus cerebritis, DIRECTOR ASSET vasculitis, all d/t TTP-HUS? Delirogenic meds d/c'd. [...] KIMBALL MD, PGY-1 12/26/2012 Team A Pager #[phone] . I have independently interviewed and examined [...] nausea, and bloody diarrhea. Upon transfer to [facility], she was found to have microangiopathic hemolytic [...] Recommendations: ?? Continue Vancomycin 1 gram IV C86cotek ?? Vancomycin trough prior to 4th dose, [...] Velazco MD - 12/25/2012 3:16 PM EDT [facility] INPATIENT FOLLOW UP PATIENT: Anum Henriquez : 1960 ROOM: [address] [place] [address] ID: 52 y.o. female admitted for microangiopathic [...] daily until 12/20. (received 7 treatment total). RDEQBZ94 is normal and infectious work-up is negative so because of gadolinium exposure and mental status improved after hd. DELVIS- urine output of 3.5 L which might be an early sign of renal recovery. Cr continues to rise butwill have to follow daily cr to monitor for renal recovery. No signs of uremia today. No acute needfor [employer] today. Will need to assess daily for [...] after a visit from the [facility]. She reports her appetite is fair, eating about 50% with a goal of 100%. Discussed how this is a goal to work towards, but sheis doing well in her efforts. She denied any nutrition requests, questions, or additional snacks atthis time. Continue to monitor. P: Continue current diet. [place] food choices as able. Work towards increasing [...] AAOx3, No double vision this AM, EOMI, Stgrwn-vp-sxnv improved, no past- pointing; rapid alternating movement and ccpc-so-yjku intact. Patellar and biceps tendon reflexes are [...] + delirium. Possible diagnosis include ?Lupus cerebritis, DIRECTOR ASSET vasculitis, all d/t TTP-HUS? Delirogenic meds d/c'd. [...] KIMBALL MD, PGY-1 12/25/2012 Team A Pager #[phone] . I have independently interviewed and examined [...] in reticulocyte if we administer ESAs * OrlandoRebecca - 12/24/2012 5:57 PM EDT Informatics Coordinator Encounter Note Patient Name: Anum Henriquez : [id number] MR#: [id number] Admit Date: 12/13/2012 7:56 PM Hospital Day 11 days Narrative: Visited patient as part of continuing care. I has seen her earlier in the day at [facility]. Assessment: Patient was lucid and in very good spirits. Intervention and Outcome: The encounter provided spiritual and emotional support. Follow-up: Visit before [facility]. Time in Direct Care: 10 minutes Rebecca Kumar 12/24/2012 * Brian Velazco MD - 12/24/2012 4:54 PM EDT [facility] INPATIENT FOLLOW UP PATIENT: Anum Henriquez : 1960 ROOM: [address] [place] [address] ID: 52 y.o. female admitted for microangiopathic [...] daily until 12/20. (received 7 treatment total). SMEDEY64 is normal and infectious work-up is negative [...] Plasma exchange x7, which was stopped 12/20. MPYGLL42 negative. 2-3 days ago, patient developed acute [...] nausea, and bloody diarrhea. Upon transfer to [facility], she was found to have microangiopathic hemolytic [...] minutes Total timed interventions: 25 minutes Pager: [phone] BETSY FORMAN, PT Physical Therapy Rehabilitation Department [...] AAOx3, No double vision this AM, EOMI, Krfexk-al-ftws improved, no past- pointing; rapid alternating movement and yvhc-vl-rcnz intact. Patellar and biceps tendon reflexes are [...] + delirium. Possible diagnosis include ?Lupus cerebritis, DIRECTOR ASSET vasculitis, all d/t TTP-HUS? Delirogenic meds d/c'd. [...] KIMBALL MD, PGY-1 12/24/2012 Team A Pager #[phone] * Brian Velazco MD - 12/23/2012 5:41 PM EDT [facility] INPATIENT FOLLOW UP PATIENT: Anum Henriquez : 1960 ROOM: [address] [place] [address]- ID: 52 y.o. female admitted for microangiopathic [...] daily until 12/20. (received 7 treatment total). MAIZNI67 is normal and infectious work-up is negative [...] follow up tomorrow. Gianna Hdz OT Pager [phone] * Ankit Ohara MD - 12/23/2012 9:38 [...] AAOx3, No double vision this AM, EOMI, Qduhpf-el-yfuw improved, no past- pointing; rapid alternating movement and xhal-yz-zbpy intact. Patellar and biceps tendon reflexes are [...] + delirium. Possible diagnosis include ?Lupus cerebritis, DIRECTOR ASSET vasculitis, all d/t TTP-HUS? Delirogenic meds d/c'd. [...] KIMBALL MD, PGY-1 12/23/2012 Team A Pager #[phone] * Rebecca Kumar - 12/22/2012 6:06 PM EDT Informatics Coordinator Encounter Note Patient Name: Anum Henriquez : [id number] MR#: [id number] Admit Date: 12/13/2012 7:56 PM Hospital Day 9 days Narrative: Visited at patient request. Informatics Coordinator services offered and accepted. Prayer offered and accepted. Patient was made aware of Mass times, and availability of communion from [employer] ministers. Assessment: Patient was lucid, pleasant and eager to converse. Intervention and Outcome: The encounter provided significant spiritual support. Follow-up: Will refer to Jainism chaplains and also visit Sunday. Time in [...] Velazco MD - 12/22/2012 9:06 AM EDT [facility] INPATIENT FOLLOW UP PATIENT: Anum Henriquez : 1960 ROOM: [address] [place] [address] ID: 52 y.o. female admitted for microangiopathic [...] total). LDH trending down and HGB/PLT improving. [id number] normal and infectious work-up is negative so [...] Crum. Salvador Renner MD Nephrology Fellow Pager# [phone] Renal Staff: This patient is seen and [...] Oriented to person, thinks she is at [facility], thinks month is November, oriented to year and president, off on day of week by 1 day. sailmaker intact. EOMI but disconjugate gaze when looking forward, with L eye deviating medially. Double vision. No meningismus. Unable to cooperate in strength and sensation exam. Trembling diffusely, more exaggerated versus yesterday. Worsened dysmetria with rluvws-al-iqgn. Myoclonic jerks, clonus bl ankles, hyperrflexia diffusely. [...] + delirium. Possible diagnosis include ?Lupus cerebritis, DIRECTOR ASSET vasculitis, all d/t TTP-HUS? Delirogenic meds d/c'd. [...] KIMBALL MD, PGY-1 12/22/2012 Team A Pager #[phone] * Arturo Moreno MD - 12/22/2012 1:22 [...] ??? aspirin 81 mg EC tablet ??? Dbkwcwygomu-Lcgtxaipc-Utt C-Mn 500-400 mg Cap ??? Alba-3 Fatty Acids-Vitamin E (OMEGA-3 FISH OIL) 1,000-5 [...] questions Raad Aleman, PGY-2 Neurology Personal Pager [phone] Addendum:I saw and evaluated the patient with [...] Oriented to person, thinks she is at [facility], thinks month is November, oriented to year and president, off on day of week by 1 day. sailmaker intact. EOMI but disconjugate gaze when looking forward, with L eye deviating medially. Double vision. No meningismus. Unable to cooperate in strength and sensation exam. Trembling diffusely, more exaggerated versus yesterday. Worsened dysmetria with oebybg-le-pqod. Myoclonic jerks, clonus bl ankles, hyperrflexia diffusely. [...] all toxic-metabolic encephalopathy + delirium. ?Lupus cerebritis, DIRECTOR ASSET vasculitis, all d/t TTP-HUS? Delirogenic meds d/c'd. [...] ALEMAN MD, PGY-1 12/21/2012 Team A Pager #[phone] Fellow Addendum I have seen and examined [...] systemic fibrosis. Ming Gomez MD Fellow, Hematology/Oncology [facility] Pager #[phone] Staff 12/21/12 8pm Pt remains intermittently confused [...] A, MD - 12/21/2012 8:57 AM EDT [facility] INPATIENT FOLLOW UP PATIENT: Anum Henriquez : 1960 ROOM: [address] [place] [address] ID: 52 y.o. female admitted for microangiopathic [...] total). LDH trending down and HGB/PLT improving. RROZBI09 is normal and infectious work-up is negative [...] Crum. Salvador Renner MD Nephrology Fellow Pager# [phone] Renal Staff: This patient is seen and [...] on CXR. Implicated Component Information: Unit Number(s): [id number], [id number], [id number], [id number], [id number] Unit ABO Type(s): AB Volume Transfused: All [...] ml Laboratory Investigation: Not performed Reaction Assessment: [facility] Bi[facility]igil[facility] Reaction Classification: Transfusion-associated circulatory [...] TRALI is unlikely, we have contacted the [place] to determine the HLA status of donor [...] donors except for one unit of plasma [id number] which as donated by female who was HLA negative. This excludes the possibility of antibody mediated TRALI. Marie Wdae DO 12/21/2012 * Jimmy Tuttle OTA - 12/20/2012 4:04 PM EDT Occupational Therapy Encounter Spoke with RN who advised that the patient was not appropriate for therapy today, will follow up onSunday. GREGORY Nelson Pager #[phone] * Amanda Odonnell PT - 12/20/2012 1:48 PM EDT Spoke with OT who reports that pt not medically appropriate for PT today. [employer] reportedly inwith pt. Will plan to follow-up on Sunday. Amanda Odonnell PT Pager #[phone] * Ankit Ohara MD - 12/20/2012 9:34 [...] She rec'd 1 u RBCs to date [id number] was normal Exam significant for mild dysmtria, [...] MRI was normal. Confusing clinical picture, since RYWVKHA83 was normal. We will give 1 u [...] Trotter MD - 12/20/2012 8:57 AM EDT [facility] INPATIENT FOLLOW UP PATIENT: Anum Henriquez : 1960 ROOM: [address] [place] [address] ID: 52 y.o. female admitted for microangiopathic [...] Sergo Gomes, MD Nephrology Fellow Pager # [phone] Renal Attending: The patient was examined together [...] returning positive (12/13/12). She was transferred to [facility] on 12/13/12 after daily labs revealed a drop in platelets from 151 to 66, increase of Cr from 0.8 to 1.2, and elevated LDH at 1187 (all per OSH). [facility] labs confirmed thrombocytopenia at 46 (currently 44), increasing Creatinine (1.4 at [facility] admission, currently 1.74) LDH of 672, dropping hemoglobin (Per OSH, 14 at initial admit, 11.9 at [facility] admit, currently 10.8), and low haptoglobin (<10). [...] 2/3 albumin, 1/3 plasma today given normal FLQAYP07 activity. Plasma given for coag factor purposes (Fibrinogen <200). - Will plan to hold treatment tomorrow and observe. If patient and/or labs (plts, LDH, etc) worsen on Sunday then we can resume TPE treatment. - F/u Plts, Hgb, LDH, Ca, coags - GI w/u per GI team. Jay Toscano MD Fellow, Hematology/Oncology Pager #: [phone] ATTENDING MD ATTESTATION: The apheresis procedure was [...] PCP: BAKARI COSTELLO APRN PCP phone number: [phone] Date of Admission: 12/13/2012 ( Hospital Day 7 days ) Service: Hem/Onc Team B - Pager [phone] Responsible Attending:Ankit Ohara MD ID: Anum Henriquez [...] skin feels tense Neuro: A&Ox3, dysmetria with xbqakj-ci-qomr, motor 5/5 upper and lower ext. Antimicrobials: [...] KIMBALL MD, PGY-1 12/20/2012 Team A Pager #[phone] * Cody Posada MD - 12/19/2012 6:16 PM EDT ID CONSULT PROGRESS NOTE Patient was not seen and examined today, but chart was reviewed. She remains hemodynamically stable and afebrile. WBC count within a normal range. HIV was negative.Stool culture at [facility] has been finalized as negative. Her clinical [...] returning positive (12/13/12). She was transferred to [facility] on 12/13/12 after daily labs revealed a drop in platelets from 151 to 66, increase of Cr from 0.8 to 1.2, and elevated LDH at 1187 (all per OSH). [facility] labs confirmed thrombocytopenia at 46 (currently 44), increasing Creatinine (1.4 at [facility] admission, currently 1.74) LDH of 672, dropping hemoglobin (Per OSH, 14 at initial admit, 11.9 at [facility] admit, currently 10.8), and low haptoglobin (<10). [...] 2/3 albumin, 1/3 plasma today given normal WTYQSL37 activity. - Will plan to treat again [...] to this. Now that we know her HOMNYH21 is normal, she no longer requires the [...] She rec'd 1 u RBCs to date LQSKTMZ29 was normal at admission Based on my [...] Trotter MD - 12/19/2012 7:50 AM EDT [facility] INPATIENT FOLLOW UP PATIENT: Anum Henriquez : 1960 ROOM: [address] [place] [address] ID: 52 y.o. 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 Subjective: Feels lousy as she could not sleep well, abdominal pain better, only had 2 somewhat formed BM's yesterday. [place] SOB and had hypoxia in afternoon but [...] cultures negative for Campylobacter and Shiga toxin VSJOWF16 normal level IMPRESSION/ RECOMMENDATIONS: 52 yo female with microangiopathic hemolytic anemia/thrombocytopenia and non oliguric acute kidney injury having plasma exchange daily , currently without any laboratory of clinical indication of renal replacement therapy. GKTUJO78 normal Today is day 5 of plasma exchange LDH still elevated, platelets still <150 noted but improving, creatinine seems to be stable for 3 days now. If no improvement is noted we may consider biopsy. KIANA, and cultures (shiga/campylobacter) noted to be negative Renal dose of medications Avoid nephrotoxins Seen and Discussed with Dr. Sergo Gomes MD Nephrology Fellow Pager # [phone] Renal Attending: The patient was examined together [...] colonoscopy Raad Bolaños MD PhD Gastroenterology Fellow ([id number]) * John Kimball - 12/19/2012 5:52 AM EDT Inpatient Hematology/Oncology/SCT Progress Note Patient info: Name: Anum Henriquez : 1960 PCP: BAKARI COSTELLO APRN PCP phone number: [phone] Date of Admission: 12/13/2012 ( Hospital Day 6 days ) Service: Hem/Onc Team B - Pager [phone] Responsible Attending:Ankit Ohara MD ID: Anum Henriquez [...] KIMBALL MD, PGY-1 12/19/2012 Team A Pager #[phone] * Jose Kaur RN - 12/18/2012 6:00 [...] 15 minutes for functional there ex Pager: [phone] GIANNA HDZ OT Occupational Therapy Rehabilitation Department [...] Trotter MD - 12/18/2012 8:51 AM EDT [facility] INPATIENT FOLLOW UP PATIENT: Anum Henriquez : 1960 ROOM: [address] [place] [address] ID: 52 y.o. female admitted for microangiopathic [...] of clinical indication of renal replacement therapy. DJEERW31, expected to be back today Stool cultures pending, LDH still elevated, platelets still <150 noted but improving, creatinine seems to be stable for 2 days now and may represent that in the next couple of days it will start to decrease, if this is not the case and JCJPTZ70 is negative will consider renal biopsy ANCA's, hepatitis C noted to be within normal limits. Renal dose of medications Avoid nephrotoxins Seen and Discussed with Dr. Sergo Gomes MD Nephrology Fellow Pager # [phone] Renal Attending: The patient was examined together [...] returning positive (12/13/12). She was transferred to [facility] on 12/13/12 after daily labs revealed a drop in platelets from 151 to 66, increase of Cr from 0.8 to 1.2, and elevated LDH at 1187 (all per OSH). [facility] labs confirmed thrombocytopenia at 46 (currently 44), increasing Creatinine (1.4 at [facility] admission, currently 1.74) LDH of 672, dropping hemoglobin (Per OSH, 14 at initial admit, 11.9 at [facility] admit, currently 10.8), and low haptoglobin (<10). [...] PCP: BAKARI COSTELLO APRN PCP phone number: [phone] Date of Admission: 12/13/2012 ( Hospital Day 5 days ) Service: Hem/Onc Team B - Pager [phone] Responsible Attending:Ankit Ohara MD ID: Anum Henriquez [...] KIMBALL MD, PGY-1 12/18/2012 Team A Pager #[phone] * Luis E Trotter MD - 12/17/2012 5:34 PM EDT [facility] INPATIENT FOLLOW UP PATIENT: Anum Henriquez : 1960 ROOM: [address] [place] [address]- ID: 52 y.o. female admitted for diarrhea, [...] of clinical indication of renal replacement therapy. [id number] and stool cultures pending LDH still elevated, [...] returning positive (12/13/12). She was transferred to [facility] on 12/13/12 after daily labs revealed a drop in platelets from 151 to 66, increase of Cr from 0.8 to 1.2, and elevated LDH at 1187 (all per OSH). [facility] labs confirmed thrombocytopenia at 46 (currently 44), increasing Creatinine (1.4 at [facility] admission, currently 1.74) LDH of 672, dropping hemoglobin (Per OSH, 14 at initial admit, 11.9 at [facility] admit, currently 10.8), and low haptoglobin (<10). [...] evening did not get sent out to [place] until yesterday evening. Results will not likely [...] PCP: BAKARI COSTELLO APRN PCP phone number: [phone] Date of Admission: 12/13/2012 ( Hospital Day 4 days ) Service: Hem/Onc Team B - Pager [phone] Responsible Attending:Fabi Bliss MD ID: Anum Henriquez [...] KIMBALL MD, PGY-1 12/17/2012 Team A Pager #[phone] ++++++++++++++++++++++++++++++++++++++++++++++++++++++++++++++++ Attending Addendum: I personally saw, examined [...] is negative. 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 SILOLE84 pending - should be back today. 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 ID - shigatoxin, stool culture and campylobacter pending. HIV negative. Will consult GI for any other ideas on the bloody diarrhea - does not seem like typical CDiff. * Luis E Trotter MD - 12/16/2012 12:45 PM EDT [facility] NEPHROLOGY INPATIENT FOLLOW UP PATIENT: Anum Henriquez : 1960 ROOM: [address] [place] [address]-A ID: 52 y.o. female admitted for acute [...] of clinical indication of renal replacement therapy. [id number], ANCAs and stool cultures pending LDH still [...] Sergo Gomes MD Nephrology Fellow Pager # [phone] Renal Attending: The patient was examined together [...] Office of Care Management (OCM) / Clinical Ethics Officer (CRC) Initial Assessment Care reviewed with hematology/blood [...] ??? aspirin 81 mg EC tablet ??? Zxazkouthxo-Twfihltob-Oqw C-Mn 500-400 mg Cap ??? Alba-3 Fatty Acids-Vitamin E (OMEGA-3 FISH OIL) 1,000-5 mg-unit Cap ??? CALCIUM ORAL Allergies Allergen Reactions ??? Erythromycin Base Subjective: States she feels a little confused today. Complains of a headache. F Previous functional status: Patient was independent with mobility/ambulation, transfers, ADL's, IADL's. 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 Current functional status: Is ambulating independently in room> [x} No Rehab referral: [x} Yes Home set up: Single story home with no steps to enter. Family and social supports: with grown son and daughter that live locally. Has lived in [facility] all of her life. Mother and father are in a correction close by. Many friends and well connected in the community. Extended Emergency Contact Information Primary Emergency Contact: Liu Henriquez Relation: Durable Power of Filling Station Attendant for Healthcare Secondary Emergency Contact: Liu Roberts Relation: Sibling Father: Venita Vora Advance directives: None on file. States she has a copy at home. Code status: Full Code Insurance: Commercial CBA Blue Financial Issues: [x} No Referral to financial services: [x} No Preferred Pharmacy: [address] outpatient pharmacy. DME: No Home Health Agency: [x} No IV Access: Double lumen pheresis catheter and PICC Home Infusion: No ELECTRONIC FIELD SERVICE ENGINEER Referral: Rebecca Tinoco ELECTRONIC FIELD SERVICE ENGINEER Referral indicated: [x} No Primary Care Physician: BAKARI COSTELLO APRN [phone] Primary [facility] Recyclable Products Sorter: Admitted on Dr. Bliss's service. Referring Recyclable Products Sorter: N/A Potential discharge needs: Undetermined Anticipated barriers to discharge: Undetermined Transportation at discharge: Spouse or family member. Plan: CRC will continue to monitor progress, follow for continuity of care and assist with discharge planning. No future appointments. Gorge Bishop RN Clinical Ethics Officer Office of Care Management Pager [phone] * Jaleel Reynoso MD - 12/16/2012 9:06 [...] returning positive (12/13/12). She was transferred to [facility] on 12/13/12 after daily labs revealed a drop in platelets from 151 to 66, increase of Cr from 0.8 to 1.2, and elevated LDH at 1187 (all per OSH). [facility] labs confirmed thrombocytopenia at 46 (currently 44), increasing Creatinine (1.4 at [facility] admission, currently 1.74) LDH of 672, dropping hemoglobin (Per OSH, 14 at initial admit, 11.9 at [facility] admit, currently 10.8), and low haptoglobin (<10). [...] be considered. We will continue to await ZRRDQA83 results, the results of which will factor [...] PCP: BAKARI COSTELLO APRN PCP phone number: [phone] Date of Admission: 12/13/2012 ( Hospital Day 3 days ) Service: Hem/Onc Team B - Pager [phone] Responsible Attending:Fabi Bliss MD ID: Anum Henriquez [...] KIMBALL MD, PGY-1 12/16/2012 Team B Pager #[phone] ++++++++++++++++++++++++++++++++++++++++++++++++++++++++++++++++ Attending Addendum: I personally saw, examined [...] PCP: BAKARI COSTELLO APRN PCP phone number: [phone] Date of Admission: 12/13/2012 ( Hospital Day 2 days ) Service: Hem/Onc Team B - Pager [phone] Responsible Attending:Fabi Bliss MD ID: Anum Henriquez [...] ALEMAN MD, PGY-1 12/15/2012 Team B Pager #[phone] ++++++++++++++++++++++++++++++++++++++++++++++++++++++++++++++++ Attending Addendum: I personally saw, examined [...] (third stool sample ) At outside hosp. [id number] is pending. * Jaleel Reynoso MD - [...] returning positive (12/13/12). She was transferred to [facility] on 12/13/12 after daily labs revealed a drop in platelets from 151 to 66, increase of Cr from 0.8 to 1.2, and elevated LDH at 1187 (all per OSH). [facility] labs confirmed thrombocytopenia at 46 (currently 44), increasing Creatinine (1.4 at [facility] admission, currently 1.74) LDH of 672, dropping hemoglobin (Per OSH, 14 at initial admit, 11.9 at [facility] admit, currently 10.8), and low haptoglobin (<10). [...] 80 mL. Vital signs: Pre (0930 hrs): MH=156/83; P=95; R=18; T=36.2 Post (1158 hrs): JV=036/80; P=82; R=18; T=36.5 Complications noted (if any): [...] be considered. We will continue to await CTMOFX35 results, the results of which will factor [...] returning positive (12/13/12). She was transferred to [facility] on 12/13/12 after daily labs revealed a drop in platelets from 151 to 66, increase of Cr from 0.8 to 1.2, and elevated LDH at 1187 (all per OSH). [facility] labs confirmed thrombocytopenia at 46 (currently 44), increasing Creatinine (1.4 at [facility] admission, currently 1.74) LDH of 672, dropping hemoglobin (Per OSH, 14 at initial admit, 11.9 at [facility] admit, currently 10.8), and low haptoglobin (<10). [...] NEURO: Grossly intact ACCESS: Non-tunneled pheresis catheter, [facility] Current laboratory data: Recent Labs Basename 12/14/12 [...] 66 mL. Vital signs: Pre (1945 hrs): JO=195/87; P=93; R=18; T=98.3 Post (2200 hrs): GK=084/90; P=87; R=18; T=99.3 Complications noted (if any): [...] may be considered. We will also await AXAYJO28 results, which will highly factor into our [...] APRN, Pt ID:52 y.o. Female presents to [facility] with abdominal pain and bloody diarrhea with [...] for plasma exchange transfusion this afternoon. MELBA BSAS MD [facility] [phone] * Cristobal Reid RN - 12/14/2012 5:30 PM EDT VIR NURSING DATABASE Name: ANUM HENRIQUEZ Date of : 1960 AGE 52 y.o. Address: [address] [place] [address] [address] [facility] [place] [address] (home) Mobile: No relevant phone numbers on [...] MD aspirin 81 mg EC tablet 12/03/09 Tskquubxcmj-Dptxpwnzi-Ybv C-Mn 500-400 mg Cap 12/03/09 Alba-3 Fatty Acids-Vitamin E (OMEGA-3 FISH OIL) 1,000-5 mg-unit Cap 12/03/09 CALCIUM ORAL 12/03/09 For outpatient procedures: This patient has been informed that they require a student truck driver to drive them home after this procedure. In the absence of a student truck driver, IR will not be able [...] ??? aspirin 81 mg EC tablet ??? Gsuzquoegun-Uohbwkyic-Ykt C-Mn 500-400 mg Cap ??? Alba-3 Fatty Acids-Vitamin E (OMEGA-3 FISH OIL) 1,000-5 [...] go to interventional radiology and then to [facility] room. 1654-Patient being transported now. Notified the doctor and his nurse on . * Gianna Bowens RN - 12/14/2012 1:36 AM EDT Nursing Progress Note 12/13/[id number] Shift Events: 1999 - Pt arrived via EMS to [facility] 44. A/O with stable VS on [...] Resolved ID: 52 y.o. Female presents to [facility] with abdominal pain and bloody diarrhea History of Present Illness: HPI Mrs. Henriquez is a 52F w/ h/o hyperthyroidism, who presents with a several day history of abdominalpain and bloody diarrhea. History obtained by patient and from OSH records. 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 Pt was transferred to [facility] for further management. Pt afebrile and hemodynamically [...] ??? aspirin 81 mg EC tablet ??? Ssmptvjpmqm-Xorsrbkxs-Jdi C-Mn 500-400 mg Cap ??? Alba-3 Fatty Acids-Vitamin E (OMEGA-3 FISH OIL) 1,000-5 mg-unit Cap ??? CALCIUM ORAL Allergies: Allergies Allergen Reactions ??? Erythromycin Base ??? Milk CIS - Localized Reaction ??? 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 No tinkling bowel sounds on exam, no rebound or guarding, as well, nausea is under control. I am wary about placing an NGT given her thrombocytopenia - will hold off for now and monitor closely. Rest of plan outlined below: # Admit to Medicine - Blue Team, pager [phone] # Hemorrhagic colitis, abdominal pain: - will [...] 12/28/2012 9:39 AM EDTAssociated Order(s): SCAN DOC: COILED TUBING OPERATOR * Provider, Scanning - 12/28/2012 9:38 [...] to the planned procedure. Hand Hygiene: The saw sharpener did perform hand hygiene prior to line insertion. Catheter type: PICC Lot number: [id number] Procedure Technique: Skin was prepped with chlorhexidine. [...] to the planned procedure. Hand Hygiene: The saw sharpener did perform hand hygiene prior to line insertion. Catheter type: PICC Lot number: [id number] Procedure Technique: Skin was prepped with chlorhexidine. [...] 5 OR OLDER VIR PROCEDURE NOTE ACC#: [id number] PROCEDURE: Non-tunneled right internal jugular triple lumen [...] (PICC) Teaching Sheet Peripherally inserted central catheters (pnku-ef-nnke) (PICC) are used when you need IV [...] midline catheter? PICC lines are used for fci treatments. PICC lines may be used for [...] can be set up via the nurse College Coach to help you. What are possible complications [...] Vascular Access Device Selection, Insertion, and Management, [employer] 03/15. A Review of the Efficacy, Safety, Use, and Administration of Cathflo, [employer] 2005 * Plan of Care - Alicia Rodriguez RN - 12/27/2012 1:27 AM EDT Problem: Pain, Acute (Adult, Obstetric) Goal: Acute Pain: Acceptable Pain Control/Comfort Level - Pain, Acute (Adult, Obstetric) Outcome: Present (see interventions, notes) Patient received 2 mg IV morphine prior to bed for 6/10 pain. Patient described as pulsating, mostly in R confucianist but neck aching as well. Heating pad [...] Ms. Henriquez has consistently denied pain this roller turner. She has been alert and oriented X [...] ANUM HENRIQUEZ Ordered By: ANKIT OHARA MR#: [id number] LOC: 1WST /Sex: 1960 (52 years), Female [...] UA Negative Appearance UA Clear Clear Spec Linden UA 1.007 1.002 - 1.030 Color UA Light Yellow Yellow RBC UA 8 (*) 0 - 4 /HPF WBC UA 6 (*) 0 - 5 /HPF Gran Cast UA 2 (*) <=0 /LPF PRO-BRAIN NATRIURETIC PEPTIDE Component Value Range ProBNP 2411 (*) <=125 pg/mL URINE CULTURE Component Value Range Urine Culture Value: Patient Name: ANUM HENRIQUEZ Ordered By: ANKIT OHARA MR#: [id number] LOC: 1WST /Sex: 1960 (52 years), Female PROCEDURE: Urine Culture SOURCE: U ICath COLLECTED: 12/20/2012 16:49 STARTED: 12/20/2012 17:07 PRELIMINARY REPORT Preliminary Report Verified:12/21/2012 12:39 Greater than 100,000 cfu/ml Staphylococcus aureus BLOOD CULTURE Component Value Range Blood Culture Value: Patient Name: ANUM HENRIQUEZ Ordered By: ANKIT OHARA MR#: [id number] LOC: 1WS /Sex: 1960 (52 years), Female [...] Aleman MD PGY-2 Neurology Resident Personal Pager [phone] Consult Pager [phone] Addendum: I saw and evaluated the patient [...] PMH of hyperthyroidism on methimazole who presentedto [facility] with several days of abdominal pain and diarrhea that progressed from watery to bloody. 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 She was transferred to [facility] on 12/13 after 3 days at OSH (day 6 of illness) Labs on admission to [facility] were notable for WBC = 13, HgB 14.5, Plts 151 w/ fecal leukocytes in the stool and negative Cdiff studies. A drop in platelets (151 to 66) and bump in her creatinine prompted transfer to [facility] with concern for evolving TTP-HUS. Throughout her [...] bloody just before she sought care at [facility]. After a few days at [facility], and just prior to transfer to [facility], she feels her diarrhea had improved somewhat and were becoming less bloody withmore substance. Over the past 24h, she has had 3 small brown soft bowel movements. She endorses some lingering abdominal pain but reports this is improved from the blayne of her illness at [facility]. She is most troubled now by [...] the concerns over Cdiff as the possible student truck driver. From a GI perspective, endoscopy, [...] anemia Raad Bolaños MD PhD Gastroenterology Fellow ([id number]) GI Staff Patient seen and examined this [...] anxiety and comfortable MRI experience. Close cousin (INSEMINATION WORKER) roomed in overnight and was very helpful [...] use of a walker at this point. [employer] system are in reach. Purposeful Hourly Rounding [...] 0 minutes BETSY FORMAN PT 12/17/2012 Pager: [phone] Physical Therapy Rehabilitation Department * Initial Assessments [...] Social History: Patient lives with her in [facility]. Home Setup: house is two story, enters [...] PT. Pt' first cousin, who is an STEEL RULE DIE MAKER APPRENTICE, present. Cognitive Status/Behavior: alert, oriented to person, [...] minutes Total timed interventions: 0 minutes Pager: [phone] GIANNA HDZ OT 12/17/2012 Occupational Therapy Rehabilitation [...] Nephrology appt. arranged. Vancomycin 750 mg IV [id number] for 3 weeks total since line removal [...] and from OSH records. 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 Pt was transferred to [facility] for further management. Pt afebrile and hemodynamically [...] acutely agitated, was mumbling in coherently in japanese and armenian and exam revealed acute exaggeration of upper [...] donors except for one unit of plasma [id number] which as donated b y female who [...] several days after stopping methimazole. She will f/[facility] Endocrine. Important Lab Data: Recent Labs Basename [...] (ref <1.0) Sm Ab, IgG: <0.2 (neg) BUTTON CLAMPER Ab, IgG: <0.2 (neg) Scl 70 Ab, [...] fluid. Consistent with colitis, infectious or inflammatory. [facility] read of above film: Marked thickening of [...] with provider. Continued medications, unchanged Dose Details Yndisdxepst-Xzvsodldz-Upv C-Mn 500-400 mg Cap Alba-3 Fatty Acids-Vitamin E (OMEGA-3 FISH OIL) 1,000-5 [...] 12/30/2012 12:45PM, Provider: Dr. Rob Mejia, Location: [address] [address], Your Inpatient Doctor(s) at [facility]: Attendings: Dr. Cristina, Dr. Ohara, Dr. Bliss Fellow: Dr. Gomez Residents: Dr. Guzmán, Dr. Aleman Calciner Operator: Dr. Kimball General Instructions Other Provider Recommendations [...] INSERTED CENTRAL CATHETER (PICC): AFTER YOUR VISIT (CAMEROONIAN) Appointment with Primary Care Provider: 12/30/2012 12:45PM, Provider: Dr. Rob Mejia, Location: [place] [address], Your To Do List Future Appointments: Provider: Department: Dept Phone: Center: 01/01/2013 12:35 PM Fabi Bliss MD Hematology/Oncology [phone] [facility] 01/13/2013 3:30 PM Brian Velazco MD Nephrology [phone] [facility] 01/14/2013 10:05 AM Minor Kebede MD Endocrinology [phone] [facility] 01/14/2013 10:30 AM Clovis Varner MD Endocrinology [phone] [facility] Future Orders Please Complete By Expires OPAT: Order / Recommendation for Post Discharge IV Antibiotic Management [UPM642 CPT(R)] Process Instructions: If no progress note charted, please enter Clinical details in comments. Scheduling Instructions: Comments: Please Fax all results to: OPAT Program Infectious Disease Section [facility], [place] [address] FAX: Line care instructions per [facility] OPAT Program protocol. After hours, please contact the Infectious Disease Physician director of institutional research at . If this order was signed greater than 72 hours prior to [facility] discharge, please call to confirm the accuracy [...] Diagnosis: Bacteremia; HUS Referral for Outpatient Antibiotics [GTY4519 CPT(R)] Process Instructions: Scheduling Instructions: Comments: Questions: Responses: Patient location post discharge Home Start date 12/28/2012 Responsible MD post discharge contact info Out Patient Antibiotic Team Vendor / contact information [place] Service requested IV abx Referral to Home Health [[id number] CPT(R)] Process Instructions: Scheduling Instructions: Comments: DOCUMENTATION FOR VNA SERVICES (INCLUDING THOSE PATIENTS WITH MEDICARE COVERAGE REQUIRING HOME VNA SERVICES AND/OR HOSPICE SERVICES) This is preliminary information related to the patient's needs and confirmation of Face to Face Encounter. The denoted information will require completion and an electronic signature by the physicianupon finalization of these orders. PATIENT'S LOCATION: Address: [address] [place] [address] [address] [facility] [address] Tel. #: [phone] (home) Cloth Examiner Hand's Name: In discussion with the attending physician, it is certified that this patient is under their care and that they, or a nurse practitioner, clinical nurse specialist or physician's litigation assistant who is working directly with them, [...] free T4, please [facility] these labs [facility] Attn: Jinny Please send Sunday CMP to Renal [facility], Attn: Dr. Velazco Please send INR to Attn: Dr. Rob Mejia, Responsible Attending: Tyson Patel MD Last documented weight (kg): 68.9 kg (151 lb 14.4 oz) Last documented height (cm): 170.2 cm (5' 7) Please Fax all results to: OPAT Program Infectious Disease Section [facility], [place] [address] FAX: START OF CARE DATE: 12/28/12 All VNA agencies which cover the area of patient's residence have been reviewed, either verbally tanvir writing, and patient/family have chosen the home health care agency as follows for home services: HOME HEALTH CARE AGENCY: [facility] PHONE: [phone] FAX: [phone] VENDOR: [employer] Address [address] [place] [address] Equipment ordered: IV antibiotic and line supplies. Ordering Provider: Dr. John Kimball Ordering Provider Phone #: [phone] [place] [address] Questions: Responses: Agency name and contact information [...] Information: BAKARI COSTELLO APRN JOSE [address] [facility] [address] Signed: FLYNN FRAUSTO MD Discharged: 12/27/2012 * [...] to improve so [facility] and admitted to the medicine service. Of note, C. Diff on 12/13 returned positive despite 2 prior negative tests. At [facility] patient was initially continued on Cipro and Flagyl. She was noted to have decreasing plts and worsening renal function. 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 She was transferred to the hematology service. IR placed a cath for plasma exchange on 12/14, TCUMKX05 was sent, and patient was started on plasma exchange 12/14. Nephrology was also consulted and recommended checking ANCA and complement levels, as well. Cipro was stopped on 12/16 for concern of contributing to TTP/HUS, but Flagyl was continued due to positive C. diff at the OSH. CT scan was re-read at [facility] and was read as showing findings concerning for pseudomembranous colitis. C. diff at [facility] was negative. 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 Upon transfer to [facility], she was found to havemicroangiopathic hemolytic anemia [...] is sent, please call the microbiology lab ([id number]) so they will not cancel the stool [...] >1000). She was t ransferred to the [facility] on 12/13. A peripheral smear showed schistocytes, [...] well as propylthiouracil) has been linked with GVY-KGWP-namhjzaolm vasculitis on multiple occassions (Mesha CrumY, Yashay [...] pt. Verbalizes understanding. Peripherally inserted central catheters (rmfs-tr-ulmo) (PICC) are used when you need IV [...] midline catheter? PICC lines are used for terminal supervisor treatments. PICC lines may be used for [...] can be set up via the nurse College Coach to help you. What are possible complications [...] Efficacy, Safety, Use, and Administration of Cathflo, [employer] 2005 * Plan of Care - [...] returning positive (12/13/12). She was transferred to [facility] on 12/13/12 after daily labs revealed a drop in platelets from 151 to 66, increase of Cr from 0.8 to 1.2, and elevated LDH at 1187 (all per OSH). [facility] labs confirmed thrombocytopenia at 46 (currently 44), increasing Creatinine (1.4 at [facility] admission, currently 1.74) LDH of 672, dropping hemoglobin (Per OSH, 14 at initial admit, 11.9 at [facility] admit, currently 10.8), and low haptoglobin (<10). [...] to <10% by both removing autoantibodies against ADLJST14 and replacing deficient levels. As the etiology [...] is recommended to administer TPE while awaiting UAXUKU94 results so as not to miss an opportunity to effectively treat the otherwise often-fatal TTP. 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 Once these criteria are met, a taper regimen may be considered. We will also await DOPPDN92 results, which will highly factor into our [...] on the optimal way to interpret the SVSVBX91 findings, when they are back. A very low FNABUT19 level (<5%), (especially when combined with the presence of an inhibitor (i.e. antibody)) is highly specific for TTP and the diagnosis is essentially confirmed if this result is returned. However, the test is only about 2/3 sensitive....that is, a negative result (normal levels of IPNRFB00) does not rule out TTP, since as many as 30% of TTP patients do not have loss of JSJREH93; this presumably involves modulation of another component of the pathway that involves cleaving LMW VWR multimers but these other components are not as well defined, and there is no clinically useful test for these, currently. Also, using MNDZHX57 level itself to assess treatment efficacy is not recommended, since some patients recover clinically after a course of plasmapheresis, but never recover their EYNMRZ54 levels. This phenomenon supports the model that that TTP is likely a two-hit disease. Loss of VKRRAW32 is not sufficient to bring on clinical disease but some other stressor is needed. It can be speculated that Anum's recent GI symptoms may constitute that second stressor. Also noteworthy is that those patients that recover clinically yet continue to have low UNAOMU39 levels appear to be more likely to [...] or problematic foods. She was admitted to [facility] on 12/10/12 where they gave her [...] 0.8 prior. Therefore, she was transferred to [facility] yesterday for further management. Hospital medicine calls [...] for 10+ years. 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 Lives at home with her . They speak Mongolian as their primary language and I believe they are [place], although she was born here in . [...] ??? DISCONTD: sodium chloride 0.9% Stopped (12/13/12 0194) PRN Meds:.fentaNYL (PF), midazolam, acetaminophen, ondansetron, ondansetron, zolpidem, HYDROmorphone, prochlorperazine, prochlorperazine, DISCONTD: HYDROmorphone Outpatient medications: No current facility-administered medications on file prior to encounter. Current Outpatient Prescriptions on File Prior to Encounter Medication Sig Dispense Refill ??? methimazole (TAPAZOLE) 10 mg tablet take 1/2 tablet by mouth once daily 45 tablet 3 ??? aspirin 81 mg EC tablet ??? Xbjffgphphw-Juxscpjsw-Dpr C-Mn 500-400 mg Cap ??? Alba-3 Fatty Acids-Vitamin E (OMEGA-3 FISH OIL) 1,000-5 [...] arms, face, or legs Labs: Labs at [facility]: 12/10/12: WBC count of 13.1 w/ [...] ADAMTS 13 activity and removing autoantibodies against [id number],etc. Therefore, we will check an ADAMTS 13 [...] 2006 October 12;354(18):1927-35. Review. PLAN: -transfer to [facility] and to inpatient hematology service, Dr. 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 No acute indication for [employer]. Renal dose meds. Avoid nephrotoxins. Seen and Discussed w/ Dr. Sergo greene Pager -[phone] Renal Attending: The patient was examined together [...] Comments LAB SCAN 01/29/2013 11:49 AM EDT COILED TUBING OPERATOR SCAN 12/28/2012 9:39 AM EDT LAB [...] 12/20/2012 12:20 PM EDT TYPE AND SCREEN ([facility]/P/JENNIFER) Routine 12/20/2012 12:20 PM EDT H. PYLORI [...] 12/17/2012 4:00 AM EDT STOOL CULTURE SCREEN ([facility]/CGP/APD/NLH) Routine 12/17/2012 3:32 AM EDT CAMPYLOBACTER ANTIGEN Routine 12/17/2012 3:32 AM EDT CRYPTOSPORIDIUM OOCYST ANTIGEN ([facility]/CGP/APD) Routine 12/17/2012 3:32 AM EDT SHIGA TOXIN ASSAY Routine 12/17/2012 3:3 2 AM EDT GIARDIA/CRYPTOSPORIDIUM ANTIGENS ([facility]/CGP/APD/NL) Routine 12/17/2012 3:32 AM EDT GIARDIA ANTIGEN ([facility]/CGP/APD/NL) Routine 12/17/2012 3:32 AM EDT STOOL CULTURE Routine 12/17/2012 3:32 AM EDT MRI BRAIN WO CONTRAST Routine 12/16/2012 9:02 PM EDT HIV SCREEN, 4TH GENERATION ([facility]/CGP/APD/NL) Routine 12/16/2012 6:[address] PICC [...] ACCESS NON-DIALYSIS Routine 12/14/2012 6:05 PM EDT [id number] ACTIVITY STAT 12/14/2012 2:0 2 PM EDT CYTOPLASMIC NEUTROPHILIC AB Routine 12/14/2012 12:03 PM EDT PROTEINASE-3 ANTIBODY Routine 12/14/2012 12:03 PM EDT MYELOPEROXIDASE AB Routine 12/14/2012 12 :03 PM EDT ABO/RH TYPING STAT 12/14/2012 9:47 AM EDT RETICULOCYTE COUNT STAT 12/14/2012 9: 47 AM EDT ANTIBODY SCREEN STAT 12/14/2012 9:47 AM EDT TYPE AND SCREEN ([facility]/JENNIFER) STAT 12/14/2012 9:47 AM EDT DIRECT ANTIGLOBULIN [...] SCAN EXT O RDR/RSLT * SCAN DOC: 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 Hand Hygiene: The saw sharpener did perform hand hygiene prior to line insertion. Catheter type: PICC Lot number: [id number] Procedure Technique: Skin was prepped with chlorhexidine. [...] to the planned procedure. Hand Hygiene: The saw sharpener did perform hand hygiene prior to line insertion. Catheter type: PICC Lot number: [id number] Procedure Technique: Skin was prepped with chlorhexidine. [...] Prothrombin Time 14.0 12.0 - 15.0 sec [facility] Comment: [facility] Transfusion Committee Guidelines: INR less than 2.0, PTT less than OR equal to 43.5 seconds, or Fibrinogen greater than or equal to 100 mg/dl indicate adequate procoagulant activity for hemostasis in patients without underlying bleeding disorders. International Normalization Ratio 1.0 0.9 - 1.1 [facility] Blood specimen (specimen) 12/27/2012 3:57 AM EDT 12/27/2012 4:03 AM EDT Narrative Resulting Agency Comment Spec In Lab Haris Jarvis MD HEMATOLOGY ORDERABLE S Performing Organization Address [facility] Co de Phone Number [facility] * Phosphorus (12/27/2012 3:57 AM EDT) Phosphorus 4.4 2.5 - 4.5 mg/dL [facility] Blood specimen (specimen) 12/27/2012 3:57 AM EDT 12/27/2012 4:03 AM EDT Narrative Resulting Agency Comment Spec In Lab Fabi Bliss MD CHEMISTRY ORDERA BLES Performing Organization Address [facility] de Phone Number [facility] * Magnesium (12/27/2012 3:57 AM EDT) Magnesium 0.81 0.69 - 1.07 mmol/L [facility] Blood specimen (specimen) 12/27/2012 3:57 AM EDT 12/27/2012 4:03 AM EDT Narrative Resulting Agency Comment Spec In Lab Fabi Bliss MD CHEMISTRY ORDERA BLES Performing Organization Address [facility] Co de Phone Number [facility] * (ABNORMAL) Lactate Dehydrogenase (12/27/2012 3:57 AM EDT) Lactate Dehydrogenase 257(H) 110 - 220 unit/L [facility] MILLENNIUM Blood specimen (specimen) 12/27/2012 3:57 AM EDT 12/27/2012 4:03 AM EDT Narrative Resulting Agency Comment Spec In Lab Fabi Bliss MD CHEMISTRY ORDERA ERICK [facility] MILLENNI[facility] * (ABNORMAL) Basic Metabolic Panel (non-fasting) (12/27/2012 3:57 AM EDT) [facility] Signature Glucose 108 60 - 199 mg/dL [facility] MILLENNIUM Comment:Diabetes: >=200 mg/d L plus symptoms Blood Urea Nitrogen 10 8 - 18 mg/dL [facility] MILLENNI[facility] Creatinine 2.10(H) 0.70 - 1.20 mg/dL [facility]NI[facility] Comment: Please note that the pediatric reference intervals supplied above were not validated at [facility]. Results from pediatric patients should be interpreted [...] Thromboplastin Time 36(H) 25 - 35 sec [facility] Comment: Recommended therapeutic PTT range for full dose unfractionated heparin is 80-114 seconds. Blood specimen (specimen) 12/26/2012 10:31 AM EDT 12/26/2012 10:37 AM EDT Narrative Resulting Agency Comment Spec In Lab Haris Jarvis MD HEMATOLOGY ORDERABLE S Performing Organization Address [facility] de Phone Number [facility] * Antibody screen (12/26/2012 10:31 AM EDT) Ab Screen Interp Negative [facility] Expires at [id number] on: [id number] [facility] Blood specimen (specimen) 12/26/2012 10:31 AM EDT 12/26/2012 10:43 AM EDT Narrative Resulting Agency Comment Spec In Lab Ankit Ohara MD BLOOD BANK LAB ORDER VIKAS Performing Organization Address [facility] de Phone Number [facility] * ABO/Rh Typing (12/26/2012 10:31 AM EDT) ABORH Type AB Pos [facility] Blood specimen (specimen) 12/26/2012 10:31 AM EDT 12/26/2012 10:43 AM EDT Narrative Resulting Agency Comment Spec In Lab Ankit Ohara MD BLOOD BANK LAB ORDER VIKAS Performing Organization Address [facility] de Phone Number [facility] * Free Thyroxine Index (12/26/2012 3:42 AM EDT) Free Thyroxine Index 6.8 4.5 - 9.5 mcg/dL [facility] Comment: Females: 5. 5-10.5 mcg/dL Blood specimen (specimen) 12/26/2012 3:42 AM EDT 12/26/2012 3:47 AM EDT Narrative Resulting Agency Comment Spec In Lab Luis E Trotter MD CHEMISTRY ORDERABLES Performing Organization Address [facility] de Phone Number [facility] * T3 (12/26/2012 3:42 AM EDT) Pathologist [facility] T3 Total 77 75 - 170 ng/dL [facility] Blood specimen (specimen) 12/26/2012 3:42 AM EDT 12/26/2012 3:47 AM EDT Narrative Resulting Agency Comment Spec In Lab Luis E Trotter MD CHEMISTRY ORDERABLES Performing Organization Address [facility] de Phone Number [facility] * T Uptake (12/26/2012 3:42 AM EDT) Pathologist [facility] T Uptake 0.99 0.80 - 1.30 ratio [facility] Comment: Tup assay is directly proportional to Thyroid binding protein concentration, thus FT4 Index = TT4/Tup. [place] [facility] Blood Reference Range: ??0.74-1.28. Blood specimen (specimen) 12/26/2012 3:42 AM EDT 12/26/2012 3:47 AM EDT Narrative Resulting Agency Comment Spec In Lab Luis E Trotter MD CHEMISTRY ORDERABLES Performing Organization Address [facility] Phone Number [facility] * T4 (12/26/2012 3:42 AM EDT) [facility] T4 Total 6.7 5.1 - 10.8 mcg/dL [facility] Comment: Reference Range: [place] Cord Blood: ??6.9-14.4 mcg/dL Females: ??7.2-14.2 mcg/dL Pediatric ranges: ??Interpret with caution-ranges have not been verified Blood specimen (specimen) 12/26/2012 3:42 AM EDT 12/26/2012 3:47 AM EDT Narrative Resulting Agency Comment Spec In Lab Luis E Trotter MD CHEMISTRY ORDERABLES Performing Organization Address [facility] de Phone Number [facility] * TSH (12/26/2012 3:42 AM EDT) [...] MD HEMATOLOGY ORDERABLE S Performing Organization Address [facility] de Phone Number [facility] * Phosphorus (12/26/2012 3:42 AM EDT) Phosphorus 4.1 2.5 - 4.5 mg/dL [facility] Blood specimen (specimen) 12/26/2012 3:42 AM EDT 12/26/2012 3:46 AM EDT Narrative Resulting Agency Comment Spec In Lab Fabi Bliss MD CHEMISTRY ORDERA ERICK Performing Organization Address [facility] Phone Number [facility] * Magnesium (12/26/2012 3:42 AM EDT) Magnesium 0.80 0.69 - 1.07 mmol/L [facility] Blood specimen (specimen) 12/26/2012 3:42 AM EDT 12/26/2012 3:46 AM EDT Narrative Resulting Agency Comment Spec In Lab Fabi Bliss MD CHEMISTRY TAMMYA ERICK Performing Organization Address [facility] Phone Number [facility] * (ABNORMAL) Lactate Dehydrogenase (12/26/2012 3:42 AM EDT) Lactate Dehydrogenase 255(H) 110 - 220 unit/L [facility] Blood specimen (specimen) 12/26/2012 3:42 AM EDT 12/26/2012 3:46 AM EDT Narrative Resulting Agency Comment Spec In Lab Fabi Bliss MD CHEMISTRY ORDERA BLECornelius Performing Organization Address [facility] Phone Number [facility] * (ABNORMAL) Basic Metabolic Panel (non-fasting) (12/26/2012 3:42 AM EDT) Glucose 99 60 - 199 mg/dL [facility] Comment:Diabetes: >=200 mg/d L plus symptoms Blood Urea Nitrogen 11 8 - 18 mg/dL CERNER MILLENNIUM Creatinine 2.05(H) 0.70 - 1.20 mg/dL [facility] MILLENNI[facility] Comment: Please note that the pediatric reference intervals supplied above were not validated at [facility]. Results from pediatric patients should be interpreted [...] * Vancomycin, trough (12/25/2012 6:29 PM EDT) [facility] Vancomycin, Trough 19.0 mg/L Corey FLAKITO PINEDAIUM [...] Jarvis MD CHEMISTRY ORDERABLES Performing Organization Address [facility] de Phone Number [facility] * APTT (12/25/2012 3:26 PM EDT) Partial Thromboplastin Time 31 25 - 35 sec [facility] Comment: Recommended therapeutic PTT range for full dose unfractionated heparin is 80-114 seconds. Blood specimen (specimen) 12/25/2012 3:26 PM EDT 12/25/2012 3:39 PM EDT Narrative Resulting Agency Comment Spec In Lab Haris Jarvis MD HEMATOLOGY ORDERABLE S Performing Organization Address [facility] Phone Number [facility] [employer] [facility] * Prothrombin Time (12/25/2012 3:26 PM EDT) Prothrombin Time 14.5 12.0 - 15.0 sec [facility] Comment: [facility] Transfusion Committee Guidelines: INR less than 2.0, PTT less than OR equal to 43.5 seconds, or Fibrinogen greater than or equal to 100 mg/dl indicate adequate procoagulant activity for hemostasis in patients without underlying bleeding disorders. International Normalization Ratio 1.1 0.9 - 1.1 [facility] Blood specimen (specimen) 12/25/2012 3:26 PM EDT 12/25/2012 3:39 PM EDT Narrative Resulting Agency Comment Spec In Lab Haris Jarvis MD HEMATOLOGY ORDERABLE S Performing Organization Address [facility] de Phone Number [facility] * Duplex for DVT, arm, bilat (12/25/2012 3:18 PM EDT) VB Text Report Department: Vascular Surgery Lab Patient: [id number] (ANUM HENRIQUEZ) CPT Code: 94146 ICD-9: 451.84 Referring Physician: HARIS JARVIS Indication: [...] 12:04 PM EDT) Smear Review Report ? [facility] ? Provider: ?? HARIS JARVIS ? Pt. Name: ?? FLORENCE ANUM Eliza ? Acc #: ?[id number] ? Pt. ? Col Date: ?? 12/25/2012 [...] the most recent ? previous smear (see [id number]). Compared to the previous, the current ? [...] MD HEMATOLOGY ORDERABLE S Performing Organization Address [facility] Co de Phone Number [facility] * Haptoglobin (12/25/2012 12:04 PM EDT) Haptoglobin 70 30 - 200 mg/dL [facility] Comment: Haptoglobin concentrations in newborns is low to undetectable; however, adult concentrations are usually attained by 4 months of age. ??No sex-related differences for haptoglobin have been detected. Blood specimen (specimen) 12/25/2012 12:04 PM EDT 12/25/2012 12:08 PM EDT Narrative Resulting Agency Comment Spec In Lab Haris Jarvis MD CHEMISTRY ORDERABLES Performing Organization Address [facility] Co de Phone Number [facility] * (ABNORMAL) Lactate Dehydrogenase (12/25/2012 12:04 PM EDT) Lactate Dehydrogenase 288(H) 110 - 220 unit/L [facility] Blood specimen (specimen) 12/25/2012 12:04 PM EDT 12/25/2012 12:08 PM EDT Narrative Resulting Agency Comment Spec In Lab Haris Jarvis MD CHEMISTRY ORDERABLES [facility] * Peripheral Smear Review (12/25/2012 12:04 PM EDT) Peripheral Smear Review See Comment [facility] Comment: When completed by the Pathologist, report [id number] will display under Hematopathology Reports. Blood specimen (specimen) 12/25/2012 12:04 PM EDT 12/25/2012 12:08 PM EDT Narrative Resulting Agency Comment Spec In Lab Haris Jarvis MD HEMATOLOGY ORDERABLE S [facility] * C4 Complement (12/25/2012 12:04 PM EDT) Complement C4 17 10 - 40 mg/dL [facility] Blood specimen (specimen) 12/25/2012 12:04 PM EDT 12/25/2012 12:08 PM EDT Narrative Resulting Agency Comment Spec In Lab Haris Jarvis MD CHEMISTRY ORDERABLES [facility] * (ABNORMAL) C3 Complement (12/25/2012 12:04 PM EDT) Complement C3 86(L) 90 - 180 mg/dL [facility] Blood specimen (specimen) 12/25/2012 12:04 PM EDT 12/25/2012 12:08 PM EDT Narrative Resulting Agency Comment Spec In Lab Haris Jarvis MD CHEMISTRY ORDERABLES [facility] * Erythropoietin Level (12/25/2012 12:04 PM EDT) Erythropoietin (MAY) 17 4 - 24 mIU/mL [facility] Blood specimen (specimen) 12/25/2012 12:04 PM EDT 12/25/2012 2:17 PM EDT Narrative Resulting Agency Comment Spec In Lab Haris Jarvis MD LAB SEND OUT ORDERAB LES [facility] * Duplex Study for DVT, Bilat legs (12/25/2012 11:06 AM EDT) VB Text Report Department: Vascular Surgery Lab Patient: [id number] (ANUM HENRIQUEZ) CPT Code: 74680 ICD-9: 451.19 Referring Physician: HARIS JARVIS Indication: [...] EDT) Phosphorus 3.4 2.5 - 4.5 mg/dL [facility] Blood specimen (specimen) 12/25/2012 4:14 AM EDT 12/25/2012 4:22 AM EDT Narrative Resulting Agency Comment Spec In Lab Fabi Bliss MD CHEMISTRY ORDERA BLECornelius Performing Organization Address [facility] de Phone Number [facility] * Magnesium (12/25/2012 4:14 AM EDT) Pathologist [facility] Magnesium 0.80 0.69 - 1.07 mmol/L [facility] Blood specimen (specimen) 12/25/2012 4:14 AM EDT 12/25/2012 4:22 AM EDT Narrative Resulting Agency Comment Spec In Lab Fabi Bliss MD CHEMISTRY ORDERA BLECornelius Performing Organization Address [facility] de Phone Number [facility] * (ABNORMAL) Lactate Dehydrogenase (12/25/2012 4:14 AM EDT) Pathologist [facility] Lactate Dehydrogenase 249(H) 110 - 220 unit/L [facility] Blood specimen (specimen) 12/25/2012 4:14 AM EDT 12/25/2012 4:22 AM EDT Narrative Resulting Agency Comment Spec In Lab Fabi Bliss MD CHEMISTRY ORDERA BLES Performing Organization Address [facility] de Phone Number [facility] * (ABNORMAL) Basic Metabolic Panel (non-fasting) (12/25/2012 4:14 AM EDT) Pathologist [facility] Glucose 99 60 - 199 mg/dL [facility] Comment:Diabetes: >=200 mg/d L plus symptoms Blood Urea Nitrogen 10 8 - 18 mg/dL [facility] Creatinine 2.01(H) 0.70 - 1.20 mg/dL [facility] Comment: Please note that the pediatric reference intervals supplied above were not validated at [facility]. Results from pediatric patients should be interpreted [...] Luis E Trotter MD HEMATOLOGY ORDERABLE S [facility] * Duplex for DVT, arm, bilat (12/24/2012 1:45 PM EDT) VB Text Report Department: Vascular Surgery Lab Patient: [id number] (ANUM HENRIQUEZ) CPT Code: 92895 ICD-9: 451.84 Referring Physician: ANKIT OHARA Indication: [...] Ohara MD VASCULAR ORDERABLES Performing Organization Address [facility] Co de Phone Number [facility] * Vancomycin, trough (12/24/2012 1:00 PM EDT) [...] Ohara MD CHEMISTRY ORDERABLES Performing Organization Address [facility] Co de Phone Number [facility] * (ABNORMAL) Differential, Automated (12/24/2012 1:00 PM [...] MD HEMATOLOGY ORDERABLE S Performing Organization Address [facility] Co de Phone Number [facility] * Direct antiglobulin test (12/24/2012 1:00 PM EDT) Pathologist [facility] SEN Poly Negative [facility] Blood specimen (specimen) 12/24/2012 1:00 PM EDT 12/24/2012 1:22 PM EDT Narrative Resulting Agency Comment Spec In Lab Ankit Ohara MD BLOOD BANK LAB ORDER VIKAS [facility] * (ABNORMAL) Reticulocyte Count (12/24/2012 1:00 PM EDT) Pathologist [facility] Reticulocyte % 1.5 0.5 - 2.4 % [...] MD HEMATOLOGY ORDERABLE S Performing Organization Address [facility] Co de Phone Number [facility] * Haptoglobin (12/24/2012 1:00 PM EDT) Haptoglobin 75 30 - 200 mg/dL [facility] Comment: Haptoglobin concentrations in newborns is low to undetectable; however, adult concentrations are usually attained by 4 months of age. ??No sex-related differences for haptoglobin have been detected. Blood specimen (specimen) 12/24/2012 1:00 PM EDT 12/24/2012 1:17 PM EDT Narrative Resulting Agency Comment Spec In Lab Ankit Ohara MD CHEMISTRY ORDERABLES Performing Organization Address [facility] de Phone Number [facility] * Bilirubin, total and direct (12/24/2012 1:00 PM EDT) Bilirubin, Total 0.4 0.2 - 1.3 mg/dL [facility] ISRRAELEN[facility]UM Bilirubin, Direct 0.1 0.0 - 0.3 mg/dL [facility] Blood specimen (specimen) 12/24/2012 1:00 PM EDT 12/24/2012 1:17 PM EDT Narrative Resulting Agency Comment Spec In Lab Ankit Ohara MD CHEMISTRY ORDERABLES Performing Organization Address [facility] Co de Phone Number [facility] * SCAN DOC: LAB (12/24/2012 9:41 AM EDT) Narrative 12/24/2012 9:41 AM EDT Procedure Note Provider, Scanning - 12/24/2012 9:41 AM EDT Scanning Provider MEDIA MGR SCAN EXT O RDR/RSLT * Phosphorus (12/24/2012 3:58 AM EDT) Phosphorus 2.9 2.5 - 4.5 mg/dL [facility] Blood specimen (specimen) 12/24/2012 3:58 AM EDT 12/24/2012 3:58 AM EDT Narrative Resulting Agency Comment Spec In Lab Fabi Bliss MD CHEMISTRY ORDERA BLECornelius Performing Organization Address [facility] Co de Phone Number [facility] * Magnesium (12/24/2012 3:58 AM EDT) Pathologist [facility] Magnesium 0.74 0.69 - 1.07 mmol/L [facility] Blood specimen (specimen) 12/24/2012 3:58 AM EDT 12/24/2012 3:58 AM EDT Narrative Resulting Agency Comment Spec In Lab Fabi Bliss MD CHEMISTRY ORDERA BLECornelius Performing Organization Address [facility] de Phone Number [facility] * (ABNORMAL) Lactate Dehydrogenase (12/24/2012 3:58 AM EDT) Pathologist [facility] Lactate Dehydrogenase 237(H) 110 - 220 unit/L [facility] Blood specimen (specimen) 12/24/2012 3:58 AM EDT 12/24/2012 3:58 AM EDT Narrative Resulting Agency Comment Spec In Lab Fabi Bliss MD CHEMISTRY ORDERA BLES Performing Organization Address [facility] Co de Phone Number [facility] * (ABNORMAL) Basic Metabolic Panel (non-fasting) (12/24/2012 3:58 AM EDT) Glucose 95 60 - 199 mg/dL [facility] Comment:Diabetes: >=200 mg/d L plus symptoms Blood Urea Nitrogen 7(L) 8 - 18 mg/dL CERNER MILLENNIUM Creatinine 1.59(H) 0.70 - 1.20 mg/dL CERNER MILLENNIUM Comment: Please note that the pediatric reference intervals supplied above were not validated at [facility]. Results from pediatric patients should be interpreted [...] Eliza ?Ordered By: ANKIT OHARA ? MR#: [id number] ?LOC: ??1WST ? /Sex: ??1960 (52 years), [...] MD HEMATOLOGY ORDERABLE S Performing Organization Address [facility] Co de Phone Number BAR PINEDAIUM [...] BANK LAB ORDER VIKAS Performing Organization Address City/[facility] Co de Phone Number BAR PINEDAIUM [...] HENRIQUEZ ?Ordered By: ANKIT OHARA ? MR#: [id number] ?LOC: ??1WST ? /Sex: ??1960 (52 years), [...] MICROBIOLOGY - BLOOD ORDERABLES Performing Organization Address [facility]/ZIP Co de Phone Number BAR PINEDAIUM * Prepare RBC (12/23/2012 6:40 AM EDT) Dispensed? Yes BAR PINEDAIUM Blood specimen (specimen) 12/23/2012 6:40 AM EDT 12/23/2012 6:37 AM EDT Ankit Ohara MD BLOOD BANK PRODUCT O RDERABLES Performing Organization Address [facility]/ZIP Co de Phone Number BAR PINEDAIUM * [...] Luis E Trotter MD HEMATOLOGY ORDERABLE S [facility] * Blood culture (12/23/2012 5:45 AM EDT) Blood Culture ? Patient Name: ANUM HENRIQUEZ ?Ordered By: ANKIT OHARA ? MR#: [id number] ?LOC: ??1WST ? /Sex: ??1960 (52 years), [...] MICROBIOLOGY - BLOOD ORDERABLES Performing Organization Address [facility] Co de Phone Number [facility] * Phosphorus (12/23/2012 5:45 AM EDT) Phosphorus 2.9 2.5 - 4.5 mg/dL [facility] Blood specimen (specimen) 12/23/2012 5:45 AM EDT 12/23/2012 6:08 AM EDT Narrative Resulting Agency Comment Spec In Lab Fabi Bliss MD CHEMISTRY ORDERA BLES Performing Organization Address [facility] Co de Phone Number [facility] * Magnesium (12/23/2012 5:45 AM EDT) Magnesium 0.71 0.69 - 1.07 mmol/L [facility] Blood specimen (specimen) 12/23/2012 5:45 AM EDT [...] MD CHEMISTRY ORDERA BLES Performing Organization Address [facility] Co de Phone Number CERNER [...] intervals supplied above were not validated at [facility]. Results from pediatric patients should be interpreted [...] Lab Luis E Trotter MD CHEMISTRY ORDERABLES [facility] * (ABNORMAL) CBC (with Diff) (12/23/2012 5:45 [...] HENRIQUEZ ?Ordered By: ANKIT OHARA ? MR#: [id number] ?LOC: ??1WST ? /Sex: ??1960 (52 years), [...] Ohara MD MICROBIOLOGY - GENER AL ORDERABLES [facility] MarkTheGlobeENNIUM * (ABNORMAL) Urinalysis with microscopic (12/23/2012 1:44 [...] Urine Dipstick Clear Clear CERNER MILLENNIUM Specific [place] Urine Automated 1.009 1.002 - 1.030 CERNER MILLENNIUM Color, Urine Dipstick Light Yellow Yellow CERNER MILLENNIUM RBC, Urine 2 0 - 4 /HPF CERNER MILLENNIUM WBC, Urine 2 0 - 5 /HPF CERNER MILLENNIUM Urine specimen (specimen) 12/23/2012 1:44 AM EDT 12/23/2012 1:58 AM EDT Narrative Resulting Agency Comment Spec In Lab Ankit Ohara MD URINE ORDERABLES [facility] ISRRAELENNIUM * Helicobacter pylori Antigen Stool (12/22/2012 6:24 PM EDT) H pylori Antigen, Stool Negative Negative CERNER MILLENNIUM Comment: Test Performed by: [facility] [address], [place] [address] Program Writer: Jennifer Ramirez, Ph.D. Stool specimen (specimen) 12/22/2012 [...] Lab Ankit Ohara MD HEMATOLOGY ORDERABLE S [facility] * Blood culture (12/22/2012 1:16 PM EDT) Blood Culture ? Patient Name: ANUM HENRIQUEZ ?Ordered By: ANKIT OHARA ? MR#: [id number] ?LOC: ??1WST ? /Sex: ??1960 (52 years), [...] HENRIQUEZ ?Ordered By: ANKIT OHARA ? MR#: [id number] ?LOC: ??1WST ? /Sex: ??1960 (52 years), [...] HENRIQUEZ ?Ordered By: ANKIT OHARA ? MR#: [id number] ?LOC: ??1WST ? /Sex: ??1960 (52 years), [...] MD HEMATOLOGY ORDERABLE S Performing Organization Address [facility]/ZIP Co de Phone Number [facility] * Phosphorus (12/22/2012 5:00 AM EDT) Phosphorus 2.6 2.5 - 4.5 mg/dL [facility] MILLENNIUM Blood specimen (specimen) 12/22/2012 5:00 AM EDT 12/22/2012 5:08 AM EDT Narrative Resulting Agency Comment Spec In Lab Fabi Bliss MD CHEMISTRY ORDERA BLES Performing Organization Address [facility] Co de Phone Number [facility] * Magnesium (12/22/2012 5:00 AM EDT) Magnesium 0.71 0.69 - 1.07 mmol/L [facility] Blood specimen (specimen) 12/22/2012 5:00 AM EDT 12/22/2012 5:08 AM EDT Narrative Resulting Agency Comment Spec In Lab Fabi Bliss MD CHEMISTRY ORDERA BLES Performing Organization Address [facility] de Phone Number [facility] * (ABNORMAL) Lactate Dehydrogenase (12/22/2012 5:00 AM EDT) Lactate Dehydrogenase 232(H) 110 - 220 unit/L [facility] Blood specimen (specimen) 12/22/2012 5:00 AM EDT 12/22/2012 5:08 AM EDT Narrative Resulting Agency Comment Spec In Lab Fabi Bliss MD CHEMISTRY ORDERA BLES Performing Organization Address [facility] Co de Phone Number [facility] * (ABNORMAL) Basic Metabolic Panel (non-fasting) (12/22/2012 5:00 AM EDT) Glucose 96 60 - 199 mg/dL [facility] Comment:Diabetes: >=200 mg/d L plus symptoms Blood Urea Nitrogen 15 8 - 18 mg/dL CERNER MILLENNIUM Creatinine 1.53(H) 0.70 - 1.20 mg/dL CERNER MILLENNIUM Comment: result rechecked-PMH Please note that the pediatric reference intervals supplied above were not validated at [facility]. Results from pediatric patients should be interpreted in conjunction to the patient's age, height and muscle mass. result rechecked- Please note that the pediatric reference intervals supplied above were not validated at [facility]. Results from pediatric patients should be interpreted [...] Trotter MD CHEMISTRY ORDERABLES Performing Organization Address City/State/[facility] Co de Phone Number CERELIO ARCOSENNIUM [...] MD HEMATOLOGY ORDERABLE S Performing Organization Address [facility] Co de Phone Number BAR PINEDAIUM [...] MD HEMATOLOGY ORDERABLE S Performing Organization Address [facility] de Phone Number BAR ARCOSENNIUM * (ABNORMAL) Prothrombin Time (12/22/2012 5:00 AM EDT) Prothrombin Time 17.1(H) 12.0 - 15.0 sec CERELIO MILLENNIUM Comment: [facility] Transfusion Committee Guidelines: INR less [...] MD HEMATOLOGY ORDERABLE S Performing Organization Address [facility] Co de Phone Number BAR PINEDAIUM * Hepatitis B Surface Antigen (12/21/2012 7:35 PM EDT) Hepatitis B Surface Antigen Negative Negative CERELIO ARCOSENNIUM Blood specimen (specimen) 12/21/2012 7:35 PM EDT 12/22/2012 8:11 AM EDT Narrative Resulting Agency Comment Spec In Lab Ankit Ohara MD CHEMISTRY ORDERABLES Performing Organization Address [facility] Co de Phone Number BAR NOE * Vancomycin, trough (12/21/2012 7:35 PM EDT) Vancomycin, Trough 7.0 mg/L [facility] Comment: Therapeutic range for complicated infections such [...] Ohara MD CHEMISTRY ORDERABLES Performing Organization Address [facility] Co de Phone Number BAR NOE [...] HENRIQUEZ ?Ordered By: ANKIT OHARA ? MR#: [id number] ?LOC: ??1WST ? /Sex: ??1960 (52 years), ? Female ? PROCEDURE: Blood Culture ?SOURCE: Blood ? COLLECTED: 12/21/2012 15:40 ? BODY SITE: Internal Jugular ? STARTED: 12/21/2012 15:52 ?FREE TEXT SOURCE: Please draw one culture from [facility] ER and ? one from [facility] plasmaphoresis line today. Thank ? you. [...] Metabolic Panel (non-fasting) (12/21/2012 3:40 PM EDT) [facility] Glucose 110 60 - 199 mg/dL CERNER MILLENNIUM Comment:Diabetes: >=200 mg/d L plus symptoms Blood Urea Nitrogen 33(H) 8 - 18 mg/dL CERNER MILLENNIUM Creatinine 2.34(H) 0.70 - 1.20 mg/dL CERNER MILLENNIUM Comment: Please note that the pediatric reference intervals supplied above were not validated at [facility]. Results from pediatric patients should be interpreted [...] Ohara MD CHEMISTRY ORDERABLES Performing Organization Address [facility]/ZIP Co de Phone Number BAR PINEDAIUM * Vitamin B6 (12/21/2012 2:30 PM EDT) Vitamin B6 (OCTOBER) 6 5 - 50 mcg/L CERNER MILLENNIUM Comment: Test Performed by: [place] [address] Program Writer: Jennifer Ramirez, Ph.D. Blood specimen (specimen) 12/21/2012 2:30 PM EDT 12/23/2012 8:37 AM EDT Narrative Resulting Agency Comment Spec In Lab Ankit Ohara MD LAB SEND OUT ORDERAB LES Performing Organization Address [facility]/ZIP Co de Phone Number BAR NOE * [...] Comment: Total Hemoglobin (in gm/dL) ?Based on [facility] Hematology ranges: ?Age ?Reference Range Less than [...] Whole Bld 113 60 - 199 mg/dL [facility] Comment:Diabetes: >=200 mg/d L plus symptoms. Lactate WB 0.8 0.5 - 2.2 mmol/L BAR NOE Blood specimen (specimen) 12/21/2012 1:40 PM EDT 12/21/2012 1:56 PM EDT Narrative Resulting Agency Comment Spec In Lab Ankit Ohara MD CHEMISTRY ORDERABLES Performing Organization Address [facility] de Phone Number BAR NOE * Green Tube HOLD (12/21/2012 1:40 PM EDT) Green Hold Sample in lab. BAR NOE Blood specimen (specimen) 12/21/2012 1:40 PM EDT 12/21/2012 1:48 PM EDT Ankit Ohara MD CHEMISTRY ORDERABLES Performing Organization Address [facility] de Phone Number BAR NOE * Vitamin B12 (12/21/2012 1:40 PM EDT) Vitamin B12 498 207 - 974 pg/mL BAR NOE Blood specimen (specimen) 12/21/2012 1:40 PM EDT 12/21/2012 1:44 PM EDT Narrative Resulting Agency Comment Spec In Lab Ankit Ohara MD CHEMISTRY ORDERABLES Performing Organization Address [facility] de Phone Number BAR NOE [...] ?U -- REFERENCE VALUE -- <1.0 (Negative) ??BUTTON CLAMPER Ab, IgG, S ?<0.2 ?U -- REFERENCE VALUE -- <1.0 (Negative) ??Scl 70 Ab, IgG, S ? <0.2 ?U -- REFERENCE VALUE -- <1.0 (Negative) ??Fozia 1 Ab, IgG, S ? <0.2 ?U -- REFERENCE VALUE -- <1.0 (Negative) Test Performed by: [facility] [employer] [place] [address] Program Writer: Jennifer Ramirez, Ph.D.(A) [facility] Blood specimen (specimen) 12/21/2012 1:40 PM EDT 12/23/2012 8:37 AM EDT Narrative Resulting Agency Comment Spec In Lab Ankit Ohara MD LAB SEND OUT ORDERAB LES Performing Organization Address [facility] de Phone Number [facility] * (ABNORMAL) Ammonia (12/21/2012 1:40 PM EDT) Ammonia <10(L) 11 - 51 mcmol/L [facility] Blood specimen (specimen) 12/21/2012 1:40 PM EDT 12/21/2012 1:44 PM EDT Narrative Resulting Agency Comment Spec In Lab Ankit Ohara MD CHEMISTRY ORDERABLES Performing Organization Address [facility] Phone Number [facility] * Blood culture (12/21/2012 9:21 AM EDT) Blood Culture ? Patient Name: ANUM HENRIQUEZ ?Ordered By: ANKIT OHARA ? MR#: [id number] ?LOC: ??1WST ? /Sex: ??1960 (52 years), [...] MICROBIOLOGY - BLOOD ORDERABLES Performing Organization Address City/State/[facility] Co de Phone Number CERNER MILLENNIUM * (ABNORMAL) Differential, Manual (12/21/2012 6:50 AM EDT) Neutrophil % Manual 91(H) 34 - 71 % CERNER MILLENNIUM Band % 5 0 - 12 % CERNER MILLENNIUM Lymphocyte Manual 4(L) 19 - 53 % CERNER MILLENNIUM Neutrophil Absolute (ANC) - Manual 16.2(H) 1.5 - 6.3 x10(3)/mc L CERNER MILLENNIUM Band Abs 0.9(H) 0.2 - 0.6 x10(3)/mc L CERNER MILLENNIUM Neutrophil Absolute (ANC) - Automated 17.07(H) 1.50 - 6.30 x10(3)/mc L CERNER [...] E Trotter MD HEMATOLOGY ORDERABLE S CERELIO PINEDAIUM * Phosphorus (12/21/2012 6:50 AM EDT) Phosphorus 4.1 2.5 - 4.5 mg/dL CERNER MILLENNIUM Blood specimen (specimen) 12/21/2012 6:50 AM EDT 12/21/2012 7:14 AM EDT Narrative Resulting Agency Comment Spec In Lab Fabi Bliss MD CHEMISTRY ORDERA BLES Performing Organization Address [facility] Co de Phone Number CERELIO ARCOSENNIUM * (ABNORMAL) Magnesium (12/21/2012 6:50 AM EDT) Magnesium 0.66(L) 0.69 - 1.07 mmol/L CERNER MILLENNIUM Blood specimen (specimen) 12/21/2012 6:50 AM EDT 12/21/2012 7:14 AM EDT Narrative Resulting Agency Comment Spec In Lab Fabi Bliss MD CHEMISTRY ORDERA BLES Performing Organization Address [facility] Co de Phone Number CERELIO PINEDAIUM * (ABNORMAL) Lactate Dehydrogenase (12/21/2012 6:50 AM EDT) Lactate Dehydrogenase 237(H) 110 - 220 unit/L CERNER MILLENNIUM Blood specimen (specimen) 12/21/2012 6:50 AM EDT 12/21/2012 7:14 AM EDT Narrative Resulting Agency Comment Spec In Lab Fabi Bliss MD CHEMISTRY ORDERA BLES Performing Organization Address [facility] Co de Phone Number CERELIO PINEDAIUM * (ABNORMAL) Basic Metabolic Panel (non-fasting) (12/21/2012 6:50 AM EDT) Glucose 102 60 - 199 mg/dL [facility] Comment:Diabetes: >=200 mg/d L plus symptoms Blood Urea Nitrogen 33(H) 8 - 18 mg/dL CERNER MILLENNIUM Creatinine 2.29(H) 0.70 - 1.20 mg/dL CERNER MILLENNIUM Comment: Please note that the pediatric reference intervals supplied above were not validated at [facility]. Results from pediatric patients should be interpreted [...] CERELIO ARCOSENNIUM * (ABNORMAL) CBC (with Diff) (12/21/2012 6:50 [...] Reynoso MD Transfusion Medicine Service 02/19/13 11:29 [facility] Comment: Jaleel Reynoso, Pathologist Verified:02/19/13 Blood specimen (specimen) 12/20/2012 6:28 PM EDT 12/20/2012 6:28 PM EDT Narrative Resulting Agency Comment Spec In Lab Ankit Ohara MD BLOOD BANK LAB ORDER VIKAS [facility] * Blood culture (12/20/2012 5:00 PM EDT) Blood Culture ? Patient Name: ANUM HENRIQUEZ ?Ordered By: ANKIT OHARA ? MR#: [id number] ?LOC: ??1WST ? /Sex: ??1960 (52 years), [...] ? Staphylococcus aureus, MRSA isolated ? BAR PINEDAIUM Blood specimen (specimen) 12/20/2012 5:00 PM EDT 12/20/2012 5:14 PM EDT Narrative Resulting Agency Comment Spec In Lab Ankit Ohara MD MICROBIOLOGY - BLOOD ORDERABLES [facility] * Urine culture Clean Catch Urine (12/20/2012 4:49 PM EDT) Urine Culture ? Patient Name: ANUM HENRIQUEZ ?Ordered By: ANKIT OHARA ? MR#: [id number] ?LOC: ??1WST ? /Sex: ??1960 (52 years), ? Female ? PROCEDURE: Urine Culture ?SOURCE: [facility] ? COLLECTED: 12/20/2012 16:49 ? STARTED: [...] ?S ? Patient: ANUM HENRIQUEZ ? MR#: [id number] ? FOOTNOTES ? (1) ? Gentamicin is not appropriate for Gillespie-therapy. ? (2) ? MRSA, Note Nafcillin Resistance ? CERNER MILLENNIUM Urine specimen obtained via indwelling urinary catheter (specimen) 12/20/2012 4:49 PM EDT 12/20/2012 5:07 PM EDT Narrative Resulting Agency Comment Spec In Lab Ankit Ohara MD MICROBIOLOGY - GENER AL ORDERABLES Performing Organization Address City/[facility]/ZIP Co de Phone Number CERNER MILLENNIUM * (ABNORMAL) pro-Brain Natriuretic Peptide (12/20/2012 4:10 PM EDT) NT-proBNP 2411(H) <=125 pg/mL CERNER MILLENNIUM Blood specimen (specimen) 12/20/2012 4:10 PM EDT 12/20/2012 4:16 PM EDT Narrative Resulting Agency Comment Spec In Lab Ankit Ohara MD CHEMISTRY ORDERABLES Performing Organization Address [facility] Co de Phone Number CERNER [...] Urine Dipstick Clear Clear CERNER MILLENNIUM Specific [place] Urine Automated 1.007 1.002 - 1.030 CERNER [...] HENRIQUEZ ?Ordered By: ANKIT OHARA ? MR#: [id number] ?LOC: ??1WST ? /Sex: ??1960 (52 years), [...] testing is required, contact the Microbiology ? Criminal Records Technician. ? PRELIMINARY REPORT ? Preliminary Report ? Verified:12/23/19 13 08:30 ? Staphylococcus aureus, MRSA isolated ? Patient: ANUM HENRIQUEZ ? MR#: [id number] ? SUSCEPTIBILITY RESULTS ? Staphylococcus aureus, MRSA [...] (1) ? Gentamicin is not appropriate for Gillespie-therapy. ? (2) ? MRSA, Note Nafcillin Resistance [...] (Bezet) 406 ms MUSE SYSTEM Calculated P [place] 58 degrees MUSE SYSTEM Calculated R [place] 32 degrees MUSE SYSTEM Calculated T [place] 24 degrees MUSE SYSTEM INTERPRETATION Normal sinus rhythm Nonspecific T wave abnormality Abnormal ECG No previous ECGs available Confirmed by MD CEASAR, JAY ([id number]) on 12/21/2012 7:30:22 AM MUSE SYSTEM 12/20/2012 2:21 PM EDT 12/21/2012 7:30 AM EDT Ankit Ohara MD ECG ORDERABLES Performing Organization Address [facility] Co de Phone Number MUSE SYSTEM * (ABNORMAL) Magnesium (12/20/2012 1:55 PM EDT) Pathologist [facility] Magnesium 0.66(L) 0.69 - 1.07 mmol/L CERNER MILLENNIUM Blood specimen (specimen) 12/20/2012 1:55 PM EDT 12/20/2012 2:11 PM EDT Narrative Resulting Agency Comment Spec In Lab Ankit Ohara MD CHEMISTRY ORDERABLES Performing Organization Address [facility] de Phone Number CERNER MILLENNIUM * Scan, Peripheral Blood (12/20/2012 1:55 PM EDT) Pathologist [facility] Plat estimate Normal CERNER MILLENNIUM RBC Morphology Abnormal CERNE R MILLENNIUM Microcyte 1-5 /HPF CERNER MILLENNIUM Schistocyte 1-5 /HPF CERNER MILLENNIUM Blood specimen (specimen) 12/20/2012 1:55 PM EDT 12/20/2012 2:03 PM EDT Narrative Resulting Agency Comment Spec In Lab Ankit Ohara MD HEMATOLOGY ORDERABLE S Performing Organization Address [facility] de Phone Number CERNER MILLENNIUM [...] Thromboplastin Time 41(H) 25 - 35 sec ELLIOTNER ISRRAELENNIUM Comment: Recommended therapeutic PTT range for full dose unfractionated heparin is 80-114 seconds. Blood specimen (specimen) 12/20/2012 1:55 PM EDT 12/20/2012 2:03 PM EDT Narrative Resulting Agency Comment Spec In Lab Ankit Ohara MD HEMATOLOGY ORDERABLE S Performing Organization Address [facility] de Phone Number BAR PINEDAIUM * (ABNORMAL) Prothrombin Time (12/20/2012 1:55 PM EDT) Prothrombin Time 17.1(H) 12.0 - 15.0 sec CERNER MILLENNIUM Comment: [facility] Transfusion Committee Guidelines: INR less [...] MD HEMATOLOGY ORDERABLE S Performing Organization Address [facility] de Phone Number CERELIO PINEDAIUM [...] intervals supplied above were not validated at [facility]. Results from pediatric patients should be interpreted [...] Ohara MD CHEMISTRY ORDERABLES Performing Organization Address City/[facility]/ZIP Co de Phone Number BAR PINEDAIUM * Antibody screen (12/20/2012 12:20 PM EDT) Ab Screen Interp Negative [facility]ENTER[facility]UM Expires at [id number] on: [id number] [facility]UNITED [facility] MIRIAMIUM Blood specimen (specimen) 12/20/2012 12:20 PM EDT 12/20/2012 12:33 PM EDT Narrative Resulting Agency Comment Spec In Lab Ankit Ohara MD BLOOD BANK LAB ORDER VIKAS Performing Organization Address [facility] Co de Phone Number BAR PINEDAIUM * ABO/Rh Typing (12/20/2012 12:20 PM EDT) ABORH Type AB Pos CERNER ISRRAELENNIUM Blood specimen (specimen) 12/20/2012 12:20 PM EDT 12/20/2012 12:33 PM EDT Narrative Resulting Agency Comment Spec In Lab Ankit Ohara MD BLOOD BANK LAB ORDER VIKAS Performing Organization Address City/[facility] Co de Phone Number BAR PINEDAIUM * (ABNORMAL) H. pylori Antibody, IgG (12/20/2012 12:20 PM EDT) H pylori Ab Pos(A) Neg [facility] ISRRAEL[facility]UM Blood specimen (specimen) 12/20/2012 12:20 PM EDT 12/21/2012 2:03 PM EDT Narrative Resulting Agency Comment Spec In Lab Ankit Ohara MD IMMUNOLOGY ORDERABLE S BAR PINEDAIUM * Prepare RBC (12/20/2012 9:45 AM EDT) Dispensed? Yes BAR ARCOSENNIUM Blood specimen (specimen) 12/20/2012 9:45 AM EDT [...] Absolute 0.05 0.00 - 0.05 x10(3)/mc L BAR PINEDAIUM Blood specimen (specimen) 12/20/2012 4:50 AM EDT 12/20/2012 5:08 AM EDT Luis E Trotter MD HEMATOLOGY ORDERABLE S Performing Organization Address City/[facility]/ZIP Co de Phone Number BAR NOE * (ABNORMAL) Phosphorus (12/20/2012 4:50 AM EDT) Phosphorus 4.9(H) 2.5 - 4.5 mg/dL BAR PINEDAIUM Blood specimen (specimen) 12/20/2012 4:50 AM EDT 12/20/2012 5:08 AM EDT Narrative Resulting Agency Comment Spec In Lab Fabi Bliss MD CHEMISTRY ORDERA BLES Performing Organization Address [facility] Co de Phone Number BAR NOE * Magnesium (12/20/2012 4:50 AM EDT) Magnesium 0.71 0.69 - 1.07 mmol/L BAR NOE Blood specimen (specimen) 12/20/2012 4:50 AM EDT 12/20/2012 5:08 AM EDT Narrative Resulting Agency Comment Spec In Lab Fabi Bliss MD CHEMISTRY ORDERA BLES Performing Organization Address [facility] Co de Phone Number BAR NOE [...] intervals supplied above were not validated at [facility]. Results from pediatric patients should be interpreted [...] HEMATOLOGY ORDERABLE S CERNER MILLENNIUM * (ABNORMAL) Fibrinogen (12/20/2012 4:50 AM EDT) Fibrinogen 170(L) 175 - 450 mg/dL CERNER MILLENNIUM Blood specimen (specimen) 12/20/2012 4:50 AM EDT 12/20/2012 5:08 AM EDT Narrative Resulting Agency Comment Spec In Lab Jaleel Reynoso MD HEMATOLOGY ORDERABLE S BAR NOE * Duplex Study for DVT, Bilat legs (12/19/2012 10:03 AM EDT) VB Text Report Department: Vascular Surgery Lab Patient: [id number] (ANUM HENRIQUEZ) CPT Code: 51625 ICD-9: 451.19 Referring Physician: ANKIT OHARA Indication: [...] EDT) Fibrinogen 214 175 - 450 mg/dL [facility] Blood specimen (specimen) 12/19/2012 7:40 AM EDT 12/19/2012 7:51 AM EDT Narrative Resulting Agency Comment Spec In Lab Jaleel Reynoso MD HEMATOLOGY ORDERABLE S Performing Organization Address [facility] de Phone Number [facility] * T4 (12/19/2012 3:20 AM EDT) T4 Total 5.7 5.1 - 10.8 mcg/dL [facility] Comment: Reference Range: Cord Blood: ??6.9-14.4 mcg/dL Females: ??7.2-14.2 mcg/dL Pediatric ranges: ??Interpret with caution-ranges have not been verified Blood specimen (specimen) 12/19/2012 3:20 AM EDT 12/19/2012 6:09 AM EDT Narrative Resulting Agency Comment Spec In Lab Luis E Trotter MD CHEMISTRY ORDERABLES Performing Organization Address [facility] Number [facility] * T Uptake (12/19/2012 3:20 AM EDT) T Uptake 1.03 0.80 - 1.30 ratio [facility] Comment: Tup assay is directly proportional to Thyroid binding protein concentration, thus FT4 Index = TT4/Tup. Cord Blood Reference Range: ??0.74-1.28. Blood specimen (specimen) 12/19/2012 3:20 AM EDT 12/19/2012 3:54 AM EDT Narrative Resulting Agency Comment Spec In Lab Luis E Trotter MD CHEMISTRY ORDERABLES Performing Organization Address [facility] de Phone Number [facility] * T4, free (12/19/2012 3:20 AM EDT) Free T4 1.05 0.90 - 1.60 ng/dL CERNER MILLENNIUM Blood specimen (specimen) 12/19/2012 3:20 AM EDT 12/19/2012 3:54 AM EDT Narrative Resulting Agency Comment Spec In Lab Luis E Trotter MD CHEMISTRY ORDERABLES Performing Organization Address [facility] Co de Phone Number CERNER MILLENNIUM * (ABNORMAL) T3 (12/19/2012 3:20 AM EDT) T3 Total 58(L) 75 - 170 ng/dL CERNER MILLENNIUM Blood specimen (specimen) 12/19/2012 3:20 AM EDT 12/19/2012 3:54 AM EDT Narrative Resulting Agency Comment Spec In Lab Luis E Trotter MD CHEMISTRY ORDERABLES Performing Organization Address [facility] Co de Phone Number CERNER MILLENNIUM * (ABNORMAL) Differential, Automated (12/19/2012 3:20 AM EDT) Pathologist [facility] Neutrophil % 81.2(H) 34.0 - 71.0 % [...] Gran % 0.80(H) 0.00 - 0.66 % [facility] MIRIAMIUM Comment: Immature granulocytes(IG's)percentage and absolute count will include metamyelocytes, myelocytes, and promyelocytes. Blood smears from CBCs yielding IG's will be scanned manually for concordance. If this scan disagrees with the automated IG or if promyelocytes are noted, a manual differential will be performed. Immature Gran Absolute 0.07(H) 0.00 - 0.05 x10(3)/mc L BAR PINEDAIUM Blood specimen (specimen) 12/19/2012 3:20 AM EDT 12/19/2012 3:40 AM EDT Luis E Trotter MD HEMATOLOGY ORDERABLE S Performing Organization Address [facility] Co de Phone Number BAR NOE * (ABNORMAL) Phosphorus (12/19/2012 3:20 AM EDT) Phosphorus 4.8(H) 2.5 - 4.5 mg/dL [facility] Blood specimen (specimen) 12/19/2012 3:20 AM EDT 12/19/2012 3:40 AM EDT Narrative Resulting Agency Comment Spec In Lab Fabi Bliss MD CHEMISTRY ORDERA BLES Performing Organization Address [facility] Phone Number BAR NOE * Magnesium (12/19/2012 3:20 AM EDT) Magnesium 0.80 0.69 - 1.07 mmol/L [facility] PINEDAIUM Blood specimen (specimen) 12/19/2012 3:20 AM EDT 12/19/2012 3:40 AM EDT Narrative Resulting Agency Comment Spec In Lab Fabi Bliss MD CHEMISTRY ORDERA BLES Performing Organization Address [facility] Co de Phone Number [facility]ENTERBRII * (ABNORMAL) Lactate Dehydrogenase (12/19/2012 3:20 AM [...] intervals supplied above were not validated at [facility]. Results from pediatric patients should be interpreted [...] the following links into your internet browser. http://www.Right Relevancep.nih.gov/lab-evaluation.shtml http://www.kidney.org/professionals/ Blood specimen (specimen) 12/19/2012 3:20 AM EDT 12/19/2012 3:40 AM EDT Narrative Resulting Agency Comment Spec In Lab Luis E Trotter MD CHEMISTRY ORDERABLES Performing Organization Address [facility]ZIP Co de Phone Number CERNER MILLENNIUM * [...] HEMATOLOGY ORDERABLE S BAR ARCOSENNIUM * (ABNORMAL) Calcium Ionized Whole Blood, CLEO (12/18/2012 9:05 PM EDT) pH, Venous 7.44(H) 7.32 - 7.42 [facility] ICa Whole Blood 1.20 1.15 - 1.33 mmol/L [facility] Comment: Reference Ranges: ?? < 19 yrs: 1.22 - 1.37 mmol/L ? Adults: 1.15 - 1.33 mmol/L Note: ??Total bilirubin higher than 20 mg/dL may lead to falsely low ionized calcium. Blood specimen (specimen) 12/18/2012 9:05 PM EDT 12/18/2012 9:11 PM EDT Narrative Resulting Agency Comment Spec In Lab Ankit Ohara MD CHEMISTRY ORDERABLES [facility] * UPPER GI ENDOSCOPY (12/18/2012 4:09 PM EDT) [facility] UPPER GI ENDOSCOPY [facility] Endoscopy Patient Name: Anum Henriquez ? Procedure Date: 12/18/2012 4:09 PM ? [facility]: [id number] ? Date of : 1960 ? Age: 52 ? Order #: [id number] ? Procedure: ? Upper GI endoscopy Indications: ? Melena Providers: ? Alda Sullivan MD, Tonny Nguyen RN, ? Chikis Swanson, Collator Operator Referring : ?Bakari Costello Medicines: ? Midazolam [...] GENERAL SURGICAL ORD ERABLES Performing Organization Address [facility] de Phone Number PROVATION * [...] Ohara MD CHEMISTRY ORDERABLES Performing Organization Address [facility] de Phone Number CERNER MILLENNIUM [...] Reynoso MD CHEMISTRY ORDERABLES Performing Organization Address [facility] Co de Phone Number CERNER [...] Luis E Trotter MD HEMATOLOGY ORDERABLE S [facility]OTUNITED [facility] KUSUM * Phosphorus (12/18/2012 4:25 AM EDT) Phosphorus 4.4 2.5 - 4.5 mg/dL [facility] Blood specimen (specimen) 12/18/2012 4:25 AM EDT 12/18/2012 4:36 AM EDT Narrative Resulting Agency Comment Spec In Lab Fabi Bliss MD CHEMISTRY ORDERA ERICK Performing Organization Address [facility] Phone Number [facility]ENTER[facility]II * Magnesium (12/18/2012 4:25 AM EDT) Magnesium 0.83 0.69 - 1.07 mmol/L [facility] Blood specimen (specimen) 12/18/2012 4:25 AM EDT 12/18/2012 4:36 AM EDT Narrative Resulting Agency Comment Spec In Lab Fabi Bliss MD CHEMISTRY ORDERA BLECornelius Performing Organization Address [facility] de Phone Number [facility] * (ABNORMAL) Lactate Dehydrogenase (12/18/2012 4:25 AM EDT) Lactate Dehydrogenase 306(H) 110 - 220 unit/L [facility] Blood specimen (specimen) 12/18/2012 4:25 AM EDT 12/18/2012 4:36 AM EDT Narrative Resulting Agency Comment Spec In Lab Fabi Bliss MD CHEMISTRY ORDERA BLECornelius Performing Organization Address [facility] Co de Phone Number [facility]ENTERBRII * (ABNORMAL) Basic Metabolic Panel (non-fasting) (12/18/2012 4:25 AM EDT) Glucose 92 60 - 199 mg/dL CERNER MILLENNIUM Comment:Diabetes: >=200 mg/d L plus symptoms Blood Urea Nitrogen 41(H) 8 - 18 mg/dL CERNER MILLENNIUM Creatinine 2.28(H) 0.70 - 1.20 mg/dL CERNER MILLENNIUM Comment: Please note that the pediatric reference intervals supplied above were not validated at [facility]. Results from pediatric patients should be interpreted [...] Lab Luis E Trotter MD CHEMISTRY ORDERABLES [facility] [employer] TechnologiesATRIUM [facility]ALTH * (ABNORMAL) CBC (with Diff) (12/18/2012 4:25 [...] Red Hold (12/17/2012 6:49 PM EDT) Pathologist [facility] Red Hold Sample in lab. BAR [employer] Blood specimen (specimen) 12/17/2012 6:49 PM EDT 12/17/2012 7:06 PM EDT Fabi Bliss MD CHEMISTRY ORDERA BLES Performing Organization Address [facility] Co de Phone Number BAR ARCOSZhui Xin * Hepatitis C Antibody (12/17/2012 6:49 PM EDT) Hepatitis C Antibody Negative Negative BAR [employer] Blood specimen (specimen) 12/17/2012 6:49 PM EDT 12/17/2012 7:03 PM EDT Narrative Resulting Agency Comment Spec In Lab Fabi Bliss MD CHEMISTRY ORDERA BLES BAR PINEDAIUM * KIANA (12/17/2012 6:49 PM EDT) KIANA [...] Report (12/17/2012 2:24 PM EDT) Pathologist [facility] Smear Review Report ? [facility] ? Provider: ?? FABI BLISS Pt. Name: ?? ANUM HENRIQUEZ ?M ? Acc #: ?[id number] ? Pt. ? Col Date: ?? 12/17/2012 [...] more than noted in the previous smear; [id number]. CERELIO MILLALEJOIUM 12/17/2012 2:24 PM EDT Fabi Bliss MD HEMATOLOGY ORDER VIKAS Performing Organization Address [facility] de Phone Number CERELIO ARCOSENNIUM * Peripheral Smear Review (12/17/2012 1:00 PM EDT) Peripheral Smear Review See Comment CERELIO MILLENNIUM Comment: When completed by the Pathologist, report [id number] will display under Hematopathology Reports. Blood specimen (specimen) 12/17/2012 1:00 PM EDT 12/17/2012 1:10 PM EDT Narrative Resulting Agency Comment Spec In Lab Fabi Bliss MD HEMATOLOGY ORDER VIKAS Performing Organization Address [facility] de Phone Number CERELIO ARCOSENNIUM * (ABNORMAL) Differential, Automated (12/17/2012 1:00 PM [...] Hemoglobin Concentration 33.9 32.0 - 36.5 gm/dL CERELIO ARCOSENNIUM Platelet 65(L) 145 - 370 x10(3)/mc L CERNER ISRRAELENNIUM RDW Standard Deviation 44.3 35.0 - 46.0 fL CERNER ISRRAELENNIUM RDW coefficient of variation 14.5(H) 10.9 - 14.4 % BAR ARCOSENNIUM Mean Platelet Volume 10.8 9.0 - 12.0 fL BAR ARCOSENNIUM Blood specimen (specimen) 12/17/2012 1:00 PM EDT 12/17/2012 1:10 PM EDT Narrative Resulting Agency Comment Spec In Lab Fabi Bliss MD HEMATOLOGY ORDER VIKAS BAR PINEDAIUM * Prepare RBC (12/17/2012 9:35 AM EDT) Dispensed? Yes BAR PINEDAIUM Blood specimen (specimen) 12/17/2012 9:35 AM EDT 12/17/2012 9:34 AM EDT Fabi Bliss MD BLOOD BANK PRODU CT ORDERABLES BAR PINEDAIUM * Scan, Peripheral Blood (12/17/2012 4:00 AM EDT) Plat estimate Decreased ABR ARCOSENNIUM RBC Morphology Abnormal CERNE R MILLENNIUM Polychromasia Present >5/HPF CERNER MILLENNIUM Schistocyte 6-10 /HPF BAR ARCOSENNIUM Blood specimen (specimen) 12/17/2012 4:00 AM EDT 12/17/2012 4:04 AM EDT Narrative Resulting Agency Comment Spec In Lab Luis E Trotter MD HEMATOLOGY ORDERABLE S BAR PINEDAIUM * (ABNORMAL) Differential, Automated (12/17/2012 [...] intervals supplied above were not validated at [facility]. Results from pediatric patients should be interpreted [...] Trotter MD CHEMISTRY ORDERABLES Performing Organization Address [facility]/ZIP Co de Phone Number CERELIO NOE * (ABNORMAL) CBC (with Diff) (12/17/2012 4:00 [...] MD HEMATOLOGY ORDERABLE S Performing Organization Address [facility]/ZIP Co de Phone Number [facility] * Shiga Toxin Detection (12/17/2012 3:32 AM EDT) Shiga Toxin Assay ? Patient Name: ANUM HENRIQUEZ ?Ordered By: FABI BLISS ? MR#: [id number] ?LOC: ??1WST ? /Sex: ??1960 (52 years), ? Female ? PROCEDURE: Shiga Toxin Assay ?SOURCE: Stool ? COLLECTED: 12/17/2012 03:32 ?FREE TEXT SOURCE: Clinical TTP-HUS. Please test for E coli O157: ? STARTED: 12/17/2012 14:48 ? H7 / shiga toxin. ? FINAL REPORT ? Final Report ? Verified:12/09 15:59 ? Test not performed due to no enteric growth. ? __ [facility] Stool specimen (specimen) 12/17/2012 3:32 AM EDT 12/17/2012 2:48 PM EDT Comment:CLINICAL TTP-HUS. PL EASE TEST FOR E COLI O157:H7 / SHIGA TOXIN. Narrative Resulting Agency Comment Spec In Lab Fabi Bliss MD MICROBIOLOGY - G ENERAL ORDERABLES [facility] * Campylobacter Antigen (12/17/2012 3:32 AM EDT) Campylobacter Ag ? Patient Name: ANUM HENRIQUEZ ?Ordered By: FABI BLISS ? MR#: [id number] ?LOC: ??1WST ? /Sex: ??1960 (52 years), ? Female ? PROCEDURE: Campylobacter Antigen ?SOURCE: Stool ? COLLECTED: 12/17/2012 03:32 ?FREE TEXT SOURCE: Clinical TTP-HUS. Please test for E coli O157: ? STARTED: 12/17/2012 14:49 ? H7 / shiga toxin. ? FINAL REPORT ? Final Report ? Verified: 013 13:37 ? Immunoassay Negative for Campylobacter Antigen ? [facility] Stool specimen (specimen) 12/17/2012 3:32 AM EDT 12/17/2012 2:49 PM EDT Comment:CLINICAL TTP-HUS. PL EASE TEST FOR E COLI O157:H7 / SHIGA TOXIN. Narrative Resulting Agency Comment Spec In Lab Fabi Bliss MD MICROBIOLOGY - G ENERAL ORDERABLES [facility] * Stool culture (12/17/2012 3:32 AM EDT) Stool Culture ? Patient Name: ANUM HENRIQUEZ ?Ordered By: FABI BLISS ? MR#: [id number] ?LOC: ??1WST ? /Sex: ??1960 (52 years), [...] - G ENERAL ORDERABLES Performing Organization Address [facility]/ZIP Co de Phone Number [facility] * Cryptosporidium Oocyst Antigen (12/17/2012 3:32 AM EDT) Cryptosporidium Antigen Negative Negative [facility] Stool specimen (specimen) 12/17/2012 3:32 AM EDT 12/17/2012 2:49 PM EDT Narrative Resulting Agency Comment Spec In Lab Luis E Trotter MD MICROBIOLOGY - GENER AL ORDERABLES Performing Organization Address [facility] Co de Phone Number [facility] * Giardia antigen (12/17/2012 3:32 AM EDT) Giardia Antigen Negative Negative [facility] Comment:Examination for othe r intestinal parasites requires foreign travel history. Stool specimen (specimen) 12/17/2012 3:32 AM EDT 12/17/2012 2:49 PM EDT Narrative Resulting Agency Comment Spec In Lab Luis E Trotter MD MICROBIOLOGY - GENER AL ORDERABLES Performing Organization Address [facility] Co de Phone Number [facility] * MRI brain WO contrast (12/16/2012 9:02 PM EDT) Anatomical Region Laterality Modality Head Magnetic Resonan ce 12/16/2012 9:02 PM EDT Narrative 12/17/2012 8:23 AM EDT Examination MR Brain without Contrast Clinical History Pt with TTP-HUS, anemia, thrombocytopenia. New AMS, may be 2/2 TTP but want to r/o DIRECTOR ASSET bleed, stroke, or any e/o DIRECTOR ASSET vasculitis Comparison None Technique We obtained multi [...] may be 2/2 TTP butwant to r/o DIRECTOR ASSET bleed, stroke, or any e/o DIRECTOR ASSET vasculitis Comparison None Technique We obtained multi [...] 6:15 PM EDT) HIV 1/2 Ab Negative [facility] Blood specimen (specimen) 12/16/2012 6:15 PM EDT 12/16/2012 6:20 PM EDT Narrative Resulting Agency Comment Spec In Lab Fabi Bliss MD CHEMISTRY ORDERA BLES [facility] * Place PICC Line: Contact Vascular Access Page [phone] (12/16/2012 3:36 PM EDT) Narrative Edvin Brian [...] to the planned procedure. Hand Hygiene: The saw sharpener did perform hand hygiene prior to line insertion. Catheter type: PICC Lot number: [id number] Procedure Technique: Skin was prepped with chlorhexidine. [...] to the planned procedure. Hand Hygiene: The saw sharpener did perform hand hygiene prior to line insertion. Catheter type: PICC Lot number: [id number] Procedure Technique: Skin was prepped with chlorhexidine. [...] C4 4(L) 10 - 40 mg/dL BAR NOE Blood specimen (specimen) 12/16/2012 2:00 PM EDT 12/16/2012 2:15 PM EDT Narrative Resulting Agency Comment Spec In Lab Fabi Bliss MD CHEMISTRY ORDERA BLES [facility] [employer] * (ABNORMAL) C3 Complement (12/16/2012 2:00 PM EDT) Complement C3 66(L) 90 - 180 mg/dL [facility] Blood specimen (specimen) 12/16/2012 2:00 PM EDT 12/16/2012 2:15 PM EDT Narrative Resulting Agency Comment Spec In Lab Fabi Bliss MD CHEMISTRY ORDERA BLECornelius Performing Organization Address [facility] Co de Phone Number [facility] * (ABNORMAL) C2 Complement (12/16/2012 2:00 PM EDT) C2 Complement <1.3(L) 1.6 - 3.5 mg/dL [facility] Comment: Low levels of C2 indicate increased catabolism (as in immune complex disease) or decreased synthesis. [facility], [address] [place] [id number] Blood specimen (specimen) 12/16/2012 2:00 PM EDT 12/16/2012 2:54 PM EDT Narrative Resulting Agency Comment Spec In Lab Fabi Bliss MD CHEMISTRY ORDERBhumi SUAREZ Performing Organization Address [facility] de Phone Number [facility] * C1 Esterase Inhibitor, Functional (12/16/2012 2:00 PM EDT) C1 Scarlett Inh Qnt (OCTOBER) 90 % normal [facility] Comment: -- REFERENCE VALUE -- >67 (Normal) 41-67 (Equivocal) <41 (Abnormal) Test Performed by: [address] [address] Program Writer: Tulio Luna III, M.D. Blood specimen (specimen) 12/16/2012 2:00 PM EDT 12/16/2012 3:14 PM EDT Narrative Resulting Agency Comment Spec In Lab Fabi Bliss MD LAB SEND OUT ORD ERABLES Performing Organization Address [facility] Co de Phone Number CERNER MILLENNIUM * Proteinase-3 Antibody (12/16/2012 2:00 PM EDT) Proteinase 3 Antibody 3.6 <=20.0 unit(s) CERNER MILLENNIUM Blood specimen (specimen) 12/16/2012 2:00 PM EDT 12/17/2012 8:07 AM EDT Narrative Resulting Agency Comment Spec In Lab Fabi Bliss MD IMMUNOLOGY ORDER VIKAS Performing Organization Address [facility] de Phone Number BAR PINEDAIUM * Myeloperoxidase Ab (12/16/2012 2:00 PM EDT) Myeloperoxidase Antibody 2.8 <=20.0 unit(s) CERNER MILLENNIUM Blood specimen (specimen) 12/16/2012 2:00 PM EDT 12/17/2012 8:07 AM EDT Narrative Resulting Agency Comment Spec In Lab Fabi Bliss MD IMMUNOLOGY ORDER VIKAS Performing Organization Address [facility] de Phone Number BAR PINEDAIUM * Cytoplasmic Neutrophilic Ab (12/16/2012 2:00 PM EDT) C-Anca (MAY) Negative Negative CERNER MILLENNIUM Comment: Test Performed by: [place] [address] Program Writer: Tulio Luna III, M.D. P-Anca (MAY) Negative Negative CERNER MILLENNIUM Comment: Negative for cANCA and pANCA patterns by immunofluorescence. Test Performed by: [place] [address] Program Writer: Tulio Luna III, M.D. Blood specimen (specimen) 12/16/2012 2:00 PM EDT 12/16/2012 3:13 PM EDT Narrative Resulting Agency Comment Spec In Lab Fabi Bliss MD LAB SEND OUT ORD ERABLES Performing Organization Address [facility] Co de Phone Number CERELIO PINEDAIUM * (ABNORMAL) T4, free (12/16/2012 2:00 PM EDT) Free T4 0.88(L) 0.90 - 1.60 ng/dL BAR PINEDAIUM Blood specimen (specimen) 12/16/2012 2:00 PM EDT 12/16/2012 2:15 PM EDT Narrative Resulting Agency Comment Spec In Lab Fabi Bliss MD CHEMISTRY ORDERBhumi SUAREZ Performing Organization Address [facility]/ZIP Co de Phone Number BAR NOE * (ABNORMAL) T3, free (12/16/2012 2:00 PM EDT) Free T3 1.6(L) 2.0 - 3.5 pg/mL [facility] Comment: Test Performed by: [place] [address] Program Writer: Jennifer Ramirez, Ph.D. Blood specimen (specimen) 12/16/2012 2:00 PM EDT 12/16/2012 3:13 PM EDT Narrative Resulting Agency Comment Spec In Lab Fabi Bliss MD CHEMISTRY ORDERBhumi SUAREZ Performing Organization Address [facility]/ZIP Co de Phone Number BAR NOE * TSH (12/16/2012 2:00 PM EDT) Thyroid Stimulating Hormone 3.68 0.27 - 4.20 mcIU/mL BAR NOE Blood specimen (specimen) 12/16/2012 2:00 PM EDT 12/16/2012 2:15 PM EDT Narrative Resulting Agency Comment Spec In Lab Fabi Bliss MD CHEMISTRY ORDERA ERICK Performing Organization Address [facility]/ZIP Co de Phone Number BAR NOE * (ABNORMAL) Urinalysis with microscopic (12/16/2012 1:35 [...] Urine Dipstick Hazy(A) Clear CERNER MILLENNIUM Specific [place] Urine Automated 1.013 1.002 - 1.030 CERNER [...] 0 - 30 unit/L CERNER MILLENNIUM Comment:result rechecked-[facility] Alkaline Phosphatase 32(L) 40 - 104 unit/L CERNER MILLENNIUM Bilirubin, Total 0.8 0.2 - 1.3 mg/dL CERNER MILLENNIUM Bilirubin, Direct 0.2 0.0 - 0.3 mg/dL CERNER MILLENNIUM Blood specimen (specimen) 12/16/2012 4:40 AM EDT 12/16/2012 4:47 AM EDT Narrative Resulting Agency Comment Spec In Lab Luis E Trotter MD CHEMISTRY ORDERABLES Performing Organization Address [facility]/ZIP Co de Phone Number CERNER MILLENNIUM * (ABNORMAL) Lactate Dehydrogenase (12/16/2012 4:40 AM EDT) Lactate Dehydrogenase 455(H) 110 - 220 unit/L CERNER MILLENNIUM Blood specimen (specimen) 12/16/2012 4:40 AM EDT 12/16/2012 4:47 AM EDT Narrative Resulting Agency Comment Spec In Lab Fabi Bliss MD CHEMISTRY ORDERA BLES Performing Organization Address [facility] Co de Phone Number CERNER [...] intervals supplied above were not validated at [facility]. Results from pediatric patients should be interpreted [...] Lab Luis E Trotter MD CHEMISTRY ORDERABLES [facility]UNITED [facility]EL[facility] CENTERIUM * (ABNORMAL) CBC (with Diff) (12/16/2012 4:40 [...] E Trotter MD HEMATOLOGY ORDERABLE S BAR ONE * XR abdomen flat and upright (12/15/2012 [...] AM EDT) C Diff Interp Negative Negative BAR NOE Stool specimen (specimen) 12/15/2012 7:42 AM EDT 12/15/2012 8:15 AM EDT Narrative Resulting Agency Comment Spec In Lab Luis E Trotter MD MICROBIOLOGY - GENER AL ORDERABLES Performing Organization Address [facility] Phone Number [facility] * (ABNORMAL) Fecal Lactoferrin (12/15/2012 7:42 AM EDT) Fecal Lactoferrin Positive( A) Negative [facility] Stool specimen (specimen) 12/15/2012 7:42 AM EDT 12/15/2012 8:15 AM EDT Narrative Resulting Agency Comment Spec In Lab Luis E Trotter MD MICROBIOLOGY - GENER AL ORDERABLES Performing Organization Address [facility] Phone Number [facility] * Phosphorus (12/15/2012 3:50 AM EDT) Phosphorus 3.1 2.5 - 4.5 mg/dL [facility] Comment:Result rechecked. Blood specimen (specimen) 12/15/2012 3:50 AM EDT 12/15/2012 10:26 AM EDT Narrative Resulting Agency Comment Spec In Lab Luis E Trotter MD CHEMISTRY ORDERABLES Performing Organization Address [facility] Phone Number [facility] * Magnesium (12/15/2012 3:50 AM EDT) Magnesium 0.72 0.69 - 1.07 mmol/L [facility] Blood specimen (specimen) 12/15/2012 3:50 AM EDT 12/15/2012 10:26 AM EDT Narrative Resulting Agency Comment Spec In Lab Luis E Trotter MD CHEMISTRY ORDERABLES Performing Organization Address [facility] Phone Number [facility] * (ABNORMAL) Lactate Dehydrogenase (12/15/2012 3:50 AM EDT) Lactate Dehydrogenase 417(H) 110 - 220 unit/L CERNER MILLENNIUM Blood specimen (specimen) 12/15/2012 3:50 AM EDT 12/15/2012 4:01 AM EDT Narrative Resulting Agency Comment Spec In Lab Luis E Trotter MD CHEMISTRY ORDERABLES [facility] * (ABNORMAL) Differential, Automated (12/15/2012 3:50 [...] 0.09(H) 0.00 - 0.05 x10(3)/mc L CERNER ISRRAELENNIUM Blood specimen (specimen) 12/15/2012 3:50 AM EDT [...] intervals supplied above were not validated at [facility]. Results from pediatric patients should be interpreted [...] Addendum Begins VIR PROCEDURE NOTE ?? ACC#: [id number] ?? PROCEDURE: Non-tunneled right internal jugular triple [...] Addendum Begins VIR PROCEDURE NOTE ?? ACC#: [id number] ?? PROCEDURE: Non-tunneled right internal jugular triple [...] Addendum Begins VIR PROCEDURE NOTE ?? ACC#: [id number] ?? PROCEDURE: Non-tunneled right internal jugular triple [...] Addendum Begins VIR PROCEDURE NOTE ?? ACC#: [id number] ?? PROCEDURE: Non-tunneled right internal jugular triple [...] AM EDT VIR PROCEDURE NOTE ?? ACC#: [id number] ?? PROCEDURE: Non-tunneled right internal jugular triple [...] MD - 12/20/2012 VIR PROCEDURE NOTE ACC#: [id number] PROCEDURE: Non-tunneled right internal jugular triple lumen [...] Bliss MD IMG IR ORDERABLE S * [id number] Activity (12/14/2012 2:02 PM EDT) Uveyej40 Activity (OCTOBER) 94 >/=70 % BAR ISRRAELENNIUM Comment: For research use only. Test Performed by: [place] [address] Program Writer: Tulio Luna III, M.D. [id number] Interpretation (OCTOBER) SEE COMMENTS BAR NOE Comment: No laboratory evidence of CCUZIG42 deficiency. ??A normal TSYUMF38 activity level does not completely exclude a clinical diagnosis of thrombotic thrombocytopenic purpura (TTP). ??Recommend clinical correlation. Test Performed by: [place] [address] Program Writer: Tulio Luna III, M.D. Blood specimen (specimen) 12/14/2012 2:02 PM EDT 12/16/2012 8:36 AM EDT Narrative Resulting Agency Comment Spec In Lab Yudith Raya DO LAB SEND OUT OR DERABLES Performing Organization Address [facility] de Phone Number BAR ISRRAELMEKHI * Proteinase-3 Antibody (12/14/2012 12:03 PM EDT) Proteinase 3 Antibody 3.5 <=20.0 unit(s) BAR ISRRAELMEKHI Blood specimen (specimen) 12/14/2012 12:03 PM EDT 12/16/2012 8:26 AM EDT Narrative Resulting Agency Comment Spec In Lab Luis E Trotter MD IMMUNOLOGY ORDERABLE S Performing Organization Address [facility] Co de Phone Number BAR ARCOSALEJOI[facility] * Myeloperoxidase Ab (12/14/2012 12:03 PM EDT) Myeloperoxidase Antibody 3.0 <=20.0 unit(s) CERNER MILLENNIUM Blood specimen (specimen) 12/14/2012 12:03 PM EDT 12/16/2012 8:26 AM EDT Narrative Resulting Agency Comment Spec In Lab Luis E Trotter MD IMMUNOLOGY ORDERABLE S Performing Organization Address [facility] de Phone Number CERNER ISRRAELENNIUM * Cytoplasmic Neutrophilic Ab (12/14/2012 12:03 PM EDT) C-Anca (OCTOBER) Negative Negative CERNER MILLENNIUM Comment: Test Performed by: [place] [address] Program Writer: Tulio Luna III, M.D. P-Anca (OCTOBER) Negative Negative CERNER MILLENNIUM Comment: Negative for cANCA and pANCA patterns by immunofluorescence. Test Performed by: [place] [address] Program Writer: Tulio Luna III, M.D. Blood specimen (specimen) 12/14/2012 12:03 PM EDT 12/16/2012 8:13 AM EDT Narrative Resulting Agency Comment Spec In Lab Luis E Trotter MD LAB SEND OUT ORDERAB LES Performing Organization Address [facility] de Phone Number CERNER MILLENNIUM * Antibody screen (12/14/2012 9:47 AM EDT) Ab Screen Interp Negative CERNER MILLENNIUM Expires at [id number] on: [id number] CERNER MILLENNIUM Blood specimen (specimen) 12/14/2012 9:47 AM EDT 12/14/2012 9:53 AM EDT Narrative Resulting Agency Comment Spec In Lab Luis E Trotter MD BLOOD BANK LAB ORDER VIKAS Performing Organization Address [facility] Co de Phone Number CERNER MILLENNIUM * ABO/Rh Typing (12/14/2012 9:47 AM EDT) ABORH Type AB Pos CERNER MILLENNIUM Blood specimen (specimen) 12/14/2012 9:47 AM EDT 12/14/2012 9:53 AM EDT Narrative Resulting Agency Comment Spec In Lab Luis E Trotter MD BLOOD BANK LAB ORDER VIKAS Performing Organization Address [facility]ZIP Co de Phone Number [facility] * (ABNORMAL) Reticulocyte Count (12/14/2012 9:47 AM [...] MD HEMATOLOGY ORDERABLE S Performing Organization Address [facility] de Phone Number BAR NOE * Direct antiglobulin test (12/14/2012 9:47 AM EDT) Pathologist [facility] SEN Poly Negative CERELIO MILLENNIUM Blood specimen (specimen) 12/14/2012 9:47 AM EDT 12/14/2012 9:53 AM EDT Narrative Resulting Agency Comment Spec In Lab Luis E Trotter MD BLOOD BANK LAB ORDER VIKAS Performing Organization Address [facility] Co de Phone Number [facility] * Smear Review Report (12/14/2012 5:49 AM EDT) Pathologist [facility] Smear Review Report ? [facility] ? Provider: ?? LUIS E TROTTER ?Pt. Name: ?? ANUM HENRIQUEZ ? Acc #: ?[id number] ? Pt. ? Col Date: ?? 12/14/2012 [...] E Trotter MD HEMATOLOGY ORDERABLE S [facility] * (ABNORMAL) Differential, Automated (12/14/2012 5:49 AM [...] S CERNER ISRRAELENNIUM * Scan, Peripheral Blood (12/14/2012 5:49 AM [...] Metabolic Panel (non-fasting) (12/14/2012 5:49 AM EDT) [facility] Signature Glucose 113 60 - 199 mg/dL CERNER MILLENNIUM Comment:Diabetes: >=200 mg/d L plus symptoms Blood Urea Nitrogen 18 8 - 18 mg/dL CERNER MILLENNIUM Creatinine 1.74(H) 0.70 - 1.20 mg/dL CERNER MILLENNIUM Comment: Please note that the pediatric reference intervals supplied above were not validated at [facility]. Results from pediatric patients should be interpreted [...] the following links into your internet browser. http://www.91JinRongdep.nih.gov/lab-evaluation.shtml http://www.kidney.org/professionals/ Blood specimen (specimen) 12/14/2012 5:49 AM [...] MD HEMATOLOGY ORDERABLE S BAR PINEDAIUM * Peripheral Smear Review (12/14/2012 5:49 AM EDT) Peripheral Smear Review See Comment CERNER MILLENNIUM Comment: When completed by the Pathologist, report [id number] will display under Hematopathology Reports. Blood specimen (specimen) 12/14/2012 5:49 AM EDT 12/14/2012 5:58 AM EDT Narrative Resulting Agency Comment Spec In Lab Luis E Trotter MD HEMATOLOGY ORDERABLE S Performing Organization Address [facility] de Phone Number BAR PINEDAIUM * (ABNORMAL) Lactate Dehydrogenase (12/14/2012 2:16 AM EDT) Lactate Dehydrogenase 672(H) 110 - 220 unit/L BAR PINEDAIUM Blood specimen (specimen) 12/14/2012 2:16 AM EDT 12/14/2012 2:41 AM EDT Narrative Resulting Agency Comment Spec In Lab Luis E Trotter MD CHEMISTRY ORDERABLES Performing Organization Address [facility] Phone Number BAR PINEDAIUM * Proteinase-3 Antibody (12/13/2012 10:42 PM EDT) Proteinase 3 Antibody 3.7 <=20.0 unit(s) BAR PINEDAIUM Blood specimen (specimen) 12/13/2012 10:42 PM EDT 12/17/2012 8:07 AM EDT Narrative Resulting Agency Comment Spec In Lab Luis E Trotter MD IMMUNOLOGY ORDERABLE S Performing Organization Address [facility] de Phone Number BAR PINEDAIUM * Myeloperoxidase Ab (12/13/2012 10:42 PM EDT) Myeloperoxidase Antibody 3.1 <=20.0 unit(s) BAR PINEDAIUM Blood specimen (specimen) 12/13/2012 10:42 PM EDT 12/17/2012 8:07 AM EDT Narrative Resulting Agency Comment Spec In Lab Luis E Trotter MD IMMUNOLOGY ORDERABLE S Performing Organization Address [facility] Co de Phone Number CERNER MILLENNIUM * Cytoplasmic Neutrophilic Ab (12/13/2012 10:42 PM EDT) [facility] C-Anca (OCTOBER) Negative Negative CERNER MILLENNIUM Comment: Test Performed by: [place] [address] Program Writer: Tulio Luna III, M.D. P-Anca (OCTOBER) Negative Negative CERNER MILLENNIUM Comment: Negative for cANCA and pANCA patterns by immunofluorescence. Test Performed by: [place] [address] Program Writer: Tulio Luna III, M.D. Blood specimen (specimen) 12/13/2012 10:42 PM EDT 12/17/2012 8:14 AM EDT Narrative Resulting Agency Comment Spec In Lab Luis E Trotter MD LAB SEND OUT ORDERAB LES Performing Organization Address [facility] Co de Phone Number [facility] * Thyroid Stimulating Immunoglobulin (12/13/2012 10:42 PM EDT) [facility] <1.0 <=1.3 TSI index [facility] Comment: Test Performed by: [place] [address] Program Writer: Tulio Luna III, M.D. Blood specimen (specimen) 12/13/2012 10:42 PM EDT 12/17/2012 8:14 AM EDT Narrative Resulting Agency Comment Spec In Lab Luis E Trotter MD IMMUNOLOGY ORDERABLE S Performing Organization Address [facility] Co de Phone Number [facility] * C1 Esterase Inhibitor, Functional (12/13/2012 10:42 PM EDT) [facility] C1 Scarlett Inh Qnt (OCTOBER) >90 % normal [facility] Comment: -- REFERENCE VALUE -- >67 (Normal) 41-67 (Equivocal) <41 (Abnormal) Test Performed by: [place] [address] Program Writer: Tulio Luna III, M.D. Blood specimen (specimen) 12/13/2012 10:42 PM EDT 12/17/2012 8:25 AM EDT Narrative Resulting Agency Comment Spec In Lab Luis E Trotter MD LAB SEND OUT ORDERAB LES Performing Organization Address [facility] Co de Phone Number CERELIO PINEDAIUM * C4 Complement (12/13/2012 10:42 PM EDT) Complement C4 10 10 - 40 mg/dL CERNER MILLENNIUM Blood specimen (specimen) 12/13/2012 10:42 PM EDT 12/13/2012 10:54 PM EDT Narrative Resulting Agency Comment Spec In Lab Luis E Trotter MD CHEMISTRY ORDERABLES Performing Organization Address [facility] Co de Phone Number [facility] ISRRAELENNIUM * (ABNORMAL) C3 Complement (12/13/2012 10:42 PM EDT) Complement C3 64(L) 90 - 180 mg/dL CERNER MILLENNIUM Blood specimen (specimen) 12/13/2012 10:42 PM EDT 12/13/2012 10:54 PM EDT Narrative Resulting Agency Comment Spec In Lab Luis E Trotter MD CHEMISTRY ORDERABLES Performing Organization Address [facility] de Phone Number [facility] ISRRAELENNIUM * Haptoglobin (12/13/2012 10:42 PM EDT) Haptoglobin <10 30 - 200 mg/dL [facility] MILLENNIUM Comment: Haptoglobin concentrations in newborns is [...] r/o obstruction or free air Comparison 12/14/2019 [id number] hours. Technique Findings There is no interval [...] r/o obstruction or free air Comparison 12/14/2019 [id number] hours. Technique Findings There is no interval [...] Urine Dipstick Clear Clear CERNER MILLENNIUM Specific [place] Urine Automated 1.014 1.002 - 1.030 CERNER [...] diverticulitis. Luis E Trotter MD IMG OUTSIDE [facility] TATION ORDERABLES * (ABNORMAL) Differential, Manual (12/13/2012 10:00 PM EDT) Neutrophil % Manual 74(H) 34 - 71 % CERNER MILLENNIUM Band % 5 0 - 12 % CERNER MILLENNIUM Lymphocyte Manual 12(L) 19 - 53 % CERNER MILLENNIUM Monocyte Manual 6 4 - 13 % CERN ER MILLENNIUM Eosinophil Manual 3 0 - 7 % CERNER MILLENNIUM Neutrophil Absolute (ANC) - Manual 6.5(H) 1.5 - 6.3 x10(3)/mc L CERNER MILLENNIUM Band Abs 0.4 0.2 - 0.6 x10(3)/mc L CERNER MILLENNIUM Neutrophil Absolute (ANC) - Automated 6.90(H) 1.50 - 6.30 x10(3)/mc L CERNER [...] Metabolic Panel (non-fasting) (12/13/2012 10:00 PM EDT) [facility] Signature Glucose 111 60 - 199 mg/dL CERNER MILLENNIUM Comment:Diabetes: >=200 mg/d L plus symptoms Blood Urea Nitrogen 14 8 - 18 mg/dL CERNER MILLENNIUM Creatinine 1.45(H) 0.70 - 1.20 mg/dL CERNER MILLENNIUM Comment: Please note that the pediatric reference intervals supplied above were not validated at [facility]. Results from pediatric patients should be interpreted [...] Lab Luis E Trotter MD CHEMISTRY ORDERABLES [facility] MIRIAMIUM * (ABNORMAL) CBC (with Diff) (12/13/2012 10:00 [...] MILLENNIUM Platelet 46(L) 145 - 370 x10(3)/mcL [facility] ISRRAELENNIUM RDW Standard Deviation 42.0 35.0 - 46.0 fL [facility] ISRRAELENNIUM RDW coefficient of variation 13.4 10.9 - 14.4 % [facility] ISRRAELENNIUM Mean Platelet Volume 10.5 9.0 - 12.0 fL [facility] ISRRAELENNIUM Blood specimen (specimen) 12/13/2012 10:00 PM EDT 12/13/2012 10:04 PM EDT Narrative Resulting Agency Comment Spec In Lab Luis E Trotter MD HEMATOLOGY ORDERABLE S [facility] * Lactate Dehydrogenase (12/13/2012 10:00 PM EDT) Lactate Dehydrogenase Not Perf 110 - 220 unit/L [facility] Comment: Unable to quantitate due to sample hemolysis. ??Sample redraw suggested. called to gianna bowens at 12/13/12 23:00 by lani Blood specimen (specimen) 12/13/2012 10:00 PM EDT 12/13/2012 10:04 PM EDT Narrative Resulting Agency Comment Spec In Lab Luis E Trotter MD CHEMISTRY ORDERABLES Performing Organization Address [facility] Co de Phone Number [facility] * Thrombin time (12/13/2012 10:00 PM EDT) Thrombin Time 19 15 - 20 sec [facility] MIRIAMIUM Blood specimen (specimen) 12/13/2012 10:00 PM EDT 12/13/2012 10:04 PM EDT Narrative Resulting Agency Comment Spec In Lab Luis E Trotter MD HEMATOLOGY ORDERABLE S [facility] * Fibrinogen (12/13/2012 10:00 PM EDT) Fibrinogen 425 175 - 450 mg/dL [facility] Blood specimen (specimen) 12/13/2012 10:00 PM EDT 12/13/2012 10:04 PM EDT Narrative Resulting Agency Comment Spec In Lab Luis E Trotter MD HEMATOLOGY ORDERABLE S Performing Organization Address [facility] de Phone Number BAR PINEDAIUM * APTT (12/13/2012 10:00 PM EDT) Partial Thromboplastin Time 27 25 - 35 sec BAR MILLENNIUM Comment: Recommended therapeutic PTT range for full dose unfractionated heparin is 80-114 seconds. Blood specimen (specimen) 12/13/2012 10:00 PM EDT 12/13/2012 10:04 PM EDT Narrative Resulting Agency Comment Spec In Lab Luis E Trotter MD HEMATOLOGY ORDERABLE S Performing Organization Address [facility] Phone Number BAR ARCOSENNIUM * (ABNORMAL) Prothrombin Time (12/13/2012 10:00 PM EDT) Prothrombin Time 16.5(H) 12.0 - 15.0 sec BAR MILLENNIUM Comment: [facility] Transfusion Committee Guidelines: INR less than 2.0, PTT less than OR equal to 43.5 seconds, or Fibrinogen greater than or equal to 100 mg/dl indicate adequate procoagulant activity for hemostasis in patients without underlying bleeding disorders. International Normalization Ratio 1.3(H) 0.9 - 1.1 BAR MILLENNIUM Blood specimen (specimen) 12/13/2012 10:00 PM EDT 12/13/2012 10:04 PM EDT Narrative Resulting Agency Comment Spec In Lab Luis E Trotter MD HEMATOLOGY ORDERABLE S Performing Organization Address [facility] de Phone Number BAR PINEDAIUM * (ABNORMAL) Hepatic Function Panel (12/13/2012 10:00 [...] MD CHEMISTRY ORDERABLES CERELIO ARCOSENNIUM * (ABNORMAL) Phosphorus (12/13/2012 10:00 PM EDT) Phosphorus 1.4(Critic al) 2.5 - 4.5 mg/dL CERNER MILLENNIUM Comment: Result rechecked. Called by: lani, Read back by: gianna bowens, Date/Time:12/13/12 23:00. Blood specimen (specimen) 12/13/2012 10:00 PM EDT 12/13/2012 10:04 PM EDT Narrative Resulting Agency Comment Spec In Lab Luis E Trotter MD CHEMISTRY ORDERABLES Performing Organization Address [facility] Co de Phone Number BAR ARCOSENNIUM * (ABNORMAL) Magnesium (12/13/2012 10:00 PM EDT) Magnesium 0.55(L) 0.69 - 1.07 mmol/L CERNER MILLENNIUM Blood specimen (specimen) 12/13/2012 10:00 PM EDT 12/13/2012 10:04 PM EDT Narrative Resulting Agency Comment Spec In Lab Luis E Trotter MD CHEMISTRY ORDERABLES CERELIO PINEDAIUM documented in this encounter Visit Diagnoses Diagnosis [...] INTRA-CATHETER, ONCE IN DIALYSIS, 1 dose, On 12/22/12 at 0600, Catheter lock per catheter specified [...] dose on Sun12/13/12 at 2130, Until Discontinued, Musella teeth, Routine Given 12/25/2012 9:44 AM EDT [...] 25 mg, Intravenous, DAILY PRN, Starting on Sun12/15/12 at 0432, Until Sun12/15/12 at 1143, pharesis, Routine Given 12/15/2012 10:19 AM EDT 25 mg diphenhydrAMINE (BENADRYL) injection 25 mg 25 mg, Intravenous, ONCE, 1 dose, On Sun12/15/12 at 1145, STAT Given 12/15/2012 11:19 AM EDT 25 mg diphenhydrAMINE (BENADRYL) injection 25 mg 25 mg, Intravenous, EVERY 6 HOURS PRN, Starting on Sun12/19/12 at 1038, Until 12/21/12 at 0943, Itching, Please administer 30 minutes [...] on Ninfa 12/19/12 at 1200, Until Discontinued Given 12/25/2012 9:44 AM EDT 1 mg Given 12/24/2012 8:02 AM EDT 1 mg Given 12/23/2012 1:16 PM EDT 1 mg folic acid (FOLVITE) tablet 1,000 mcg 1,000 mcg (1 mg), Oral, DAILY, First dose on Ninfa 12/26/12 at 1100, Until Discontinued, Routine Given 12/27/2012 [...] 40 mg, Intravenous, ONCE, 1 dose, On 12/20/12 at 1015 Given 12/20/2012 12:08 PM EDT [...] dose, Starting on 12/21/12 at 1705, Until 12/21/12 at 1709, Per Protocol, Routine Given 12/21/2012 [...] on 12/21/12 at 1000, Until Discontinued, Routine Given 12/27/2012 [...] for (Active or Suspected): for Bacteremia/Sepsis Given 12/22/2012 1:48 PM EDT 500 mg 73.3 mL/hr vancomycin 1 g in dextrose 5% 200 mL 1,000 mg (1 g), Intravenous, EVERY 24 HOURS, First dose (after last modification) on Sun12/20/12 at 1900, Until Discontinued, This medication may have an associated drug lab level. Please check for lab orders, Routine, Indication for (Active or Suspected): for Pneumonia ([facility]) Given 12/20/2012 10:03 PM EDT 1,000 mg vancomycin 1 g in dextrose 5% 200 mL 1,000 mg (1 g), Intravenous, EVERY 24 HOURS, First dose on Sun12/24/12 at 1830, Until Discontinued, This medication may have an associated drug lab level. Please check for lab orders, Routine, Indication for (Active or Suspected): for Bacteremia/Sepsis Given 12/24/2012 7:00 PM EDT 1,000 mg vancomycin 1.25 g sodium in chloride 0.9% 250 mL 1,250 mg (1.25 g), Intravenous, at 125 mL/hr, ONCE, 1 dose, On Sun12/21/12 at 2200, plz administer AFTER dialysis, Routine, Indication for (Active or Suspected): for Bacteremia/Sepsis Given 12/21/2012 10:50 PM EDT 1,250 mg 125 mL/hr vancomycin 750 mg in dextrose 5% 150 mL 750 mg, Intravenous, at 100 mL/hr, ONCE, 1 dose, On Sun12/23/12 at 1700, This medication may have an associated drug lab level. Please check for lab orders, Routine, Indication for (Active or Suspected): for Bacteremia/Sepsis Given 12/23/2012 5:42 PM EDT 750 mg 100 mL/hr vancomycin 750 mg in dextrose 5% 150 mL 750 mg, Intravenous, at 100 mL/hr, EVERY 24 HOURS, First dose (after last modification) on Sun12/25/12 at 1830, Until Discontinued, This medication may have an associated drug lab level. Please check for lab orders, Routine, Indication for (Active or Suspected): for Bacteremia/Sepsis Given 12/26/2012 6:17 PM EDT 750 mg [...] for (Active or Suspected): for Bacteremia/Sepsis Given 12/27/2012 3:09 PM EDT 750 mg 100 mL/hr warfarin (COUMADIN) tablet 5 mg 5 mg, Oral, ONCE, 1 dose, On Sun12/26/12 at 1700, Routine Given 12/26/2012 5:00 PM [...] dose on Sun12/13/12 at 2130, Until Discontinued, Musella teeth, Routine 0944 (Given - Provider: Alicia [...] Discontinued 1037 (Given - Provider: Alicia Rodriguez RN)2124 (Given - Provider: Faby Walton, DRU) 0957 (Given - Provider: Erika Tracy RN) [...] dose on Sun12/22/12 at 1245, Until Discontinued 44 (Given - Provider: Alicia Rodriguez RN)2100 (Due) 09 (Given - Provider: Erika Tracy RN)2030 (Given - Provider: Alicia Rodriguez RN) 0900 (Given - Provider: Erika Tracy RN) magnesium oxide (MAG-OX) tablet 400 mg (CANCELED) 400 mg, Oral, 2 TIMES DAILY, First dose on Sun12/21/12 at 1000, Until Discontinued, Routine 0944 (Given - Provider: Alicia Rodriguez RN)2124 (Given - Provider: Faby Walton, DRU) 09 (Given - Provider: Erika Tracy RN)2030 [...] Indication for (Active or Suspected): for Bacteremia/Sepsis 1853 (Given - Provider: Alicia Rodriguez RN) [...] Indication for (Active or Suspected): for Bacteremia/Sepsis 1509 (Given - Provider: Erika Tracy RN) [...] on Sun12/21/12 at 1223, Until Sun12/27/12 at 2035, Agitation, Routine 0242 (Given - Provider: Yeimi [...] Indication for (Active or Suspected): for Bacteremia/Sepsis And Vancomycin, trough (CANCELED) New collection, Timed, [...] Routine documented in this encounter Care Teams Carbon Coater Machine Operator Relationship Specialty Start Date End Date Bakari Costello APRN [address] [id number] PCP - General 12/13/12 01/12/13 documented as of this encounter
--- OUTSIDE RECORDS SUMMARY | 2024-04-04 12:27 | XMS_ITS | Encounter Summary ---
Author Organization [facility] Address [facility] [place] [address] Care Team Providers Care Occupational Therapy Co Director Name Role Phone Ofelia Costello APRN Primary Care Provider [phone] Encounter Details Date Type Department Care Team (Late st Contact Info) Description 12/26/2012 Orders [place] [address] Minor Kebede MD [facility] DR ENDOCRIN[place] [address] Graves disease (Primary Dx) Social History Tobacco [...] T4 Total 4.9(L) 5.1 - 10.8 mcg/dL [facility] Comment: Reference Range: [place] Cord Blood: ??6.9-14.4 mcg/dL Females: ??7.2-14.2 mcg/dL Pediatric ranges: ??Interpret with caution-ranges have not been verified Blood specimen (specimen) 01/13/2013 12:10 PM EDT 01/13/2013 12:15 PM EDT Narrative Resulting Agency Comment Spec In Lab Tyson Connolly MD CHEMISTRY ORDERABLES Performing Organization Address [facility] Co de Phone Number BAR PINEDAIUM * T Uptake (01/13/2013 12:10 PM EDT) T Uptake 1.16 0.80 - 1.30 ratio [facility] Comment: Tup assay is directly proportional to Thyroid binding protein concentration, thus FT4 Index = TT4/Tup. Cord Blood Reference Range: ??0.74-1.28. Blood specimen (specimen) 01/13/2013 12:10 PM EDT 01/13/2013 12:15 PM EDT Narrative Resulting Agency Comment Spec In Lab Tyson Connolly MD CHEMISTRY ORDERABLES Performing Organization Address [facility] Co de Phone Number BAR PINEDAIUM * (ABNORMAL) T3 (01/13/2013 12:10 PM EDT) Pathologist [facility] T3 Total 62(L) 75 - 170 ng/dL [facility] Blood specimen (specimen) 01/13/2013 12:10 PM EDT 01/13/2013 12:15 PM EDT Narrative Resulting Agency Comment Spec In Lab Tyson Connolly MD CHEMISTRY ORDERABLES Performing Organization Address [facility] Co de Phone Number BAR ARCOSENNIUM * T4, free (01/13/2013 12:10 PM EDT) Free T4 0.96 0.90 - 1.60 ng/dL [facility] Blood specimen (specimen) 01/13/2013 12:10 PM EDT 01/13/2013 12:15 PM EDT Narrative Resulting Agency Comment Spec In Lab Tyson Connolly MD CHEMISTRY ORDERABLES Performing Organization Address City/[facility]/ZIP Co de Phone Number BAR PINEDAIUM * TSH (01/13/2013 12:10 PM EDT) Thyroid Stimulating Hormone 0.63 0.27 - 4.20 mcIU/mL [facility] Blood specimen (specimen) 01/13/2013 12:10 PM EDT 01/13/2013 12:15 PM EDT Narrative Resulting Agency Comment Spec In Lab Tyson Connolly MD CHEMISTRY ORDERABLES Performing Organization Address [facility] Co de Phone Number BAR NOE documented in this encounter Visit Diagnoses Diagnosis Graves disease- Primary Toxic diffuse goiter 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
--- OUTSIDE RECORDS SUMMARY | 2024-04-04 12:28 | XMS_ITS | Encounter Summary ---
[place] [address] Care Team Providers Care Energy Broker Name Role Phone Ofelia Costello APRN Primary Care Provider [phone] Encounter Details Date Type Department Care Team (Late st Contact Info) Description 12/10/2012 [place] [address] [place] [address] Social History Tobacco Use Types Packs/Day Years [...] is a non-reportable exam. Ant Mendoza MD [facility] FILM LIBRARY ORD ERABLES documented in this encounter Visit Diagnoses Not on filedocumented in this encounter Care Teams Energy Broker Relationship Specialty Start Date End Date Ofelia Costello APRN [address] [address] PCP - General 12/13/12 01/12/13 documented as of this encounter
--- OUTSIDE RECORDS SUMMARY | 2024-04-04 12:28 | XMS_ITS | Encounter Summary ---
[place] [address] Care Team Providers Care Conveyor Feeder Offbearer Name Role Phone Ofelia Costello APRN Primary Care Provider [phone] Encounter Details Date Type Department Care Team (Late st Contact Info) Description 12/10/2012 Orders [place] [address] [place] [address] Social History Tobacco Use Types Packs/Day Years [...] is a non-reportable exam. Ant Mendoza MD [facility] FILM LIBRARY ORD ERABLES documented in this encounter Visit Diagnoses Not on filedocumented in this encounter Care Teams Conveyor Feeder Offbearer Relationship Specialty Start Date End Date Ofelia Costello APRN [address] [address] PCP - General 12/13/12 01/12/13 documented as of this encounter
--- OUTSIDE RECORDS SUMMARY | 2024-04-04 12:28 | XMS_ITS | Encounter Summary ---
Author Organization [facility] [place] [address] Care Team Providers Care Facilities Manager Name Role Phone Adolph Deshpande MD Primary Care Provider [phone] Reason for Visit * Reason Comments Medication Refill Encounter Details Date Type Department Care Team ([facility] st Contact Info) Description 01/22/2011 [place] [address] Tyson Connolly MD [facility] [place] [address] Social History Tobacco Use Types Packs/Day Years [...] on filedocumented in this encounter Care Teams Facilities Manager Relationship Specialty Start Date End Date Adolph Deshpande MD [address] [place] [id number] PCP - General 05/03/10 12/12/12 documented as of this encounter
--- OUTSIDE RECORDS SUMMARY | 2024-04-04 12:28 | XMS_ITS | Encounter Summary ---
Author Organization [facility] Address [facility] [place] [address] Care Team Providers Care Finishing Area Supervisor Name Role Phone Jason Davila MD Primary Care Provider [phone] Encounter Details Date Type Department Care Team (Late st Contact Info) Description 12/14/2012 Orders Only [place] [address] Robin Cheng MD [facility] [place] [address] TTP (thrombotic thrombocytopenic purpura) (Primary Dx) Social [...] microangiopathy documented in this encounter Care Teams Finishing Area Supervisor Relationship Specialty Start Date End Date Jason Davila MD [address] [place] [address] [address] [place] [id number] PCP - General 01/13/13 12/09/23 marilyn noble Consulting Physician Gastroenterology 01/13/13 documented as of this encounter
--- OUTSIDE RECORDS SUMMARY | 2024-04-04 12:28 | XMS_ITS | Encounter Summary ---
Author Organization [facility] [place] [address] Care Team Providers Care Pigs Feet Cleaner Name Role Phone Ofelia Costello APRN Primary Care Provider [phone] Encounter Details Date Type Department Care Team (Late st Contact Info) Description 12/15/2012 External Results XRay at [address] [place] [address] Provider, Scanning Social History Tobacco Use Types [...] on filedocumented in this encounter Care Teams Pigs Feet Cleaner Relationship Specialty Start Date End Date Ofelia Costello APRN [address] [address] PCP - General 12/13/12 01/12/13 documented as of this encounter
--- OUTSIDE RECORDS SUMMARY | 2024-04-04 12:28 | XMS_ITS | Encounter Summary ---
[place] [address] Care Team Providers Care Entry Level Web Developer Name Role Phone Ofelia Costello APRN Primary Care Provider [phone] Encounter Details Date Type Department Care Team (Late st Contact Info) Description 12/13/2012 [place] [address] [place] [address] Social History Tobacco Use Types Packs/Day Years [...] is a non-reportable exam. Ant Mendoza MD [facility] FILM LIBRARY ORD ERABLES documented in this encounter Visit Diagnoses Not on filedocumented in this encounter Care Teams Entry Level Web Developer Relationship Specialty Start Date End Date Ofelia Costello APRN [address] [address] PCP - General 12/13/12 01/12/13 documented as of this encounter
--- OUTSIDE RECORDS SUMMARY | 2024-04-04 12:28 | XMS_ITS | Encounter Summary ---
Author Organization [facility] Address [facility] [place] [address] Care Team Providers Care Rn Behavioral Health Name Role Phone Bakari Costello APRN Primary Care Provider [phone] Encounter Details Date Type Department Care Team (Late st Contact Info) Description 12/18/2012 1:30 PM EDT - 12/18/2012 2:00 PM EDT Surgery [place] [address] Beck Paiz MD [facility] [place] [address] EGD, UPPER GI ENDOSCOPY (WRVU 2.09) Social [...] 12/30/2012 12:45PM, Provider: Dr. Rob Mejia, Location: [place] [address], Your Inpatient Doctor(s) at [facility]: Attendings: Dr. Cristina, Dr. Ohara, Dr. Bliss Fellow: Dr. Gomez Residents: Dr. Guzmán, Dr. Aleman Rn Cardiology: Dr. Kimball * Attachments The following attachments cannot be sent through Care Everywhere. * PERIPHERALLY INSERTED CENTRAL CATHETER (PICC): AFTER YOUR VISIT (FRENCH) documented in this encounter Medications at Time [...] it-Vit C-Mn 500-400 mg Cap 12/03/2009 01/13/2013 [place]-3 Fatty Acids-Vitamin E (OMEGA-3 FISH OIL) 1,000-5 mg-unit Cap 12/03/2009 01/06/20 13 documented as of this encounter Progress Notes * Carmne Strickland - 12/27/2012 6:30 PM EDT [facility] Encounter Note Patient Name: Anum Henriquez : [id number] MR#: [id number] Admit Date: 12/13/2012 7:56 PM Hospital Day 14 days Narrative: Follow up visit with patient prior to her discharge. Patient's present at the time of visit. Assessment: Patient expressed with excitement that she was going home today. She related the challenges of her hospitalization but was grateful to the members of the [facility] medical staff for their services. Intervention and [...] Velazco MD - 12/27/2012 5:39 PM EDT [facility] NEPHROLOGY INPATIENT FOLLOW UP PATIENT: Anum Henriquez : 1960 ROOM: [address] [place] [address] ID: 52 y.o. female admitted for microangiopathic [...] daily until 12/20. (received 7 treatment total). USXWFQ37 is normal and infectious work-up is negative so because of gadolinium exposure and mental status improved after hd. DELVIS- Cr stable. Non oliguric. Stable chemistries No indications for PROCEDURE WRITER. Pt is getting discharged today. Plan to check labs in 1 week at [facility] and she has an appointment in nephrology [...] Office of Care Management (OCM) / Clinical Patent Engineer (CRC) Continuing Care Note Care reviewed with hematology/blood and marrow transplant team and at interdisciplinary discharge rounds. . Situation: Discharge planned for today on home on IV abx therapy. Today is Day 8 Vancomycin IV for MRSA bacteremia. Arrangements made with [facility] for delivery of supplies to hospital room before discharge to home. [facility] is the [facility] that will go to the home tomorrow for first hang around 3 pm. Lovenox is ready for picking supervisor at their local pharmacy, No PA needed. Single lumen PICC placed. Procedure note sent to both [place] and [facility]. Background: PMH of [place] on methimazole, [...] 4. Follows up with Dr. Bliss in [facility] on 01/01. 5. First visit by [...] AM Clovis Varner MD [facility] M. Dez Bishop RN Clinical Patent Engineer Office of Care Management Pager [phone] * Leticia Hardy, PT - 12/27/2012 3:45 [...] later today. ~Leticia Antonio. Hayley, PT Pager [phone]. * Tyson Patel MD - 12/27/2012 1:10 [...] outpatient. Recommendations: - Vancomycin 750 mg IV [id number] x3 weeks total since line removal (12/24 [...] minutes Total timed interventions: 15 minutes Pager: [phone] KAREN CATHERINE PT Physical Therapy Rehabilitation Department * Brian Velazco MD - 12/26/2012 3:12 PM EDT [facility] NEPHROLOGY INPATIENT FOLLOW UP PATIENT: Anum Henriquez : 1960 ROOM: [address] [place] [address] ID: 52 y.o. female admitted for microangiopathic [...] daily until 12/20. (received 7 treatment total). [id number] is normal and infectious work-up is negative so because of gadolinium exposure and mental status improved after hd. DELVIS- Cr stable off dialysis. Good urine output. No signs of uremia. Stable chemistries. Mild fluid overload. No indications for PROCEDURE WRITER. Will continue to follow cr and urine [...] PM EDT Office of Care Management Clinical Patent Engineer Home IV Antibiotic Therapy Referral Note. Report received from Dr. Frausto that patient will require continued home IV antibiotic therapy after discharge from the hospital. Met with patient/family to discuss vendor and visiting nurse choices for home IV antibiotic therapy. Reviewed Home Infusion Vendors and Home Health Agencies that serve patient???s address and accept patient???s insurance. Home Health Agency: Patient requested referral to [facility], [facility] PHONE: [phone] FAX: [phone] Referrals sent via edischarge. Home Infusion Vendor: Patient requested referral to [place], [place] or Referrals sent via edischarge. Diabetic Status: Patient is not a diabetic. IV access: Type of line: PICC single lumen pendng Date placed: pending Gorge Bishop RN Clinical Patent Engineer Hematology/Blood and Marrow Transplant Office of Care Management Pager [phone] * Clovis Varner MD - 12/26/2012 11:42 [...] Rebecca Kumar - 12/26/2012 11:18 AM EDT [facility] Encounter Note Patient Name: Anum Henriquez : [id number] MR#: [id number] Admit Date: 12/13/2012 7:56 PM Hospital Day 13 days Narrative: Visited on rounds. Patient was excited about possibility of discharge. She plans to attend [facility] at Noon today. Assessment: [...] AAOx3, No double vision this AM, EOMI, Ktnxix-lv-ramr improved, no past- pointing; rapid alternating movement and gysb-ey-grce intact. Patellar and biceps tendon reflexes are [...] + delirium. Possible diagnosis include ?Lupus cerebritis, BLENDING MACHINE FEEDER vasculitis, all d/t TTP-HUS? Delirogenic meds d/c'd. [...] KIMBALL MD, PGY-1 12/26/2012 Team A Pager #[phone] . I have independently interviewed and examined [...] nausea, and bloody diarrhea. Upon transfer to [facility], she was found to have microangiopathic hemolytic [...] Recommendations: ?? Continue Vancomycin 1 gram IV [id number] ?? Vancomycin trough prior to 4th dose, [...] Velazco MD - 12/25/2012 3:16 PM EDT [facility] NEPHROLOGY INPATIENT FOLLOW UP PATIENT: Anum Henriquez : 1960 ROOM: [address] [place] [address] ID: 52 y.o. female admitted for microangiopathic [...] daily until 12/20. (received 7 treatment total). IHLVHF39 is normal and infectious work-up is negative so because of gadolinium exposure and mental status improved after hd. DELVIS- urine output of 3.5 L which might be an early sign of renal recovery. Cr continues to rise butwill have to follow daily cr to monitor for renal recovery. No signs of uremia today. No acute needfor PROCEDURE WRITER today. Will need to assess daily for [...] spirits after a visit from the [facility]. She reports her appetite is fair, eating about 50% with a goal of 100%. Discussed how this is a goal to work towards, but sheis doing well in her efforts. She denied any nutrition requests, questions, or additional snacks atthis time. Continue to monitor. P: Continue current diet. Bertrand food choices as able. Work towards increasing [...] AAOx3, No double vision this AM, EOMI, Phsarm-bw-ehla improved, no past- pointing; rapid alternating movement and vret-zb-kgqd intact. Patellar and biceps tendon reflexes are [...] + delirium. Possible diagnosis include ?Lupus cerebritis, BLENDING MACHINE FEEDER vasculitis, all d/t TTP-HUS? Delirogenic meds d/c'd. [...] KIMBALL MD, PGY-1 12/25/2012 Team A Pager #[phone] . I have independently interviewed and examined [...] the care of this patient from Dr. Ohraa. The patient has a complicated multisystem illness. [...] Encounter Note Patient Name: Anum Henriquez : [id number] MR#: [id number] Admit Date: 12/13/2012 7:56 PM Hospital Day 11 days Narrative: Visited patient as part of continuing care. I has seen her earlier in the day at [facility]. Assessment: Patient was lucid and in very good spirits. Intervention and Outcome: The encounter provided spiritual and emotional support. Follow-up: Visit before [facility]. Time in Direct Care: 10 minutes Rebecca Kumar 12/24/2012 * Brian Velazco MD - 12/24/2012 4:54 PM EDT [facility] NEPHROLOGY INPATIENT FOLLOW UP PATIENT: Anum Henriquez : 1960 ROOM: [address] [place] [address] ID: 52 y.o. female admitted for microangiopathic [...] daily until 12/20. (received 7 treatment total). NLMLIT48 is normal and infectious work-up is negative [...] Plasma exchange x7, which was stopped 12/20. QCNLGQ96 negative. 2-3 days ago, patient developed acute [...] nausea, and bloody diarrhea. Upon transfer to [facility], she was found to have microangiopathic hemolytic [...] minutes Total timed interventions: 25 minutes Pager: [phone] BETSY FORMAN PT Physical Therapy Rehabilitation Department [...] AAOx3, No double vision this AM, EOMI, Yzeuhu-bw-xzoo improved, no past- pointing; rapid alternating movement and mgtb-yj-xkfk intact. Patellar and biceps tendon reflexes are [...] + delirium. Possible diagnosis include ?Lupus cerebritis, BLENDING MACHINE FEEDER vasculitis, all d/t TTP-HUS? Delirogenic meds d/c'd. [...] KIMBALL MD, PGY-1 12/24/2012 Team A Pager #[phone] * Brian Velazco MD - 12/23/2012 5:41 PM EDT [facility] NEPHROLOGY INPATIENT FOLLOW UP PATIENT: Anum Henriquez : 1960 ROOM: [address] [place] [address] ID: 52 y.o. female admitted for microangiopathic [...] daily until 12/20. (received 7 treatment total). TGLGCZ79 is normal and infectious work-up is negative [...] follow up tomorrow. Gianna Hdz, MICHELLE Pager [phone] * Ankit Ohara MD - 12/23/2012 9:38 [...] AAOx3, No double vision this AM, EOMI, Wbbwwl-qx-dgak improved, no past- pointing; rapid alternating movement and zbps-jd-dlvl intact. Patellar and biceps tendon reflexes are [...] + delirium. Possible diagnosis include ?Lupus cerebritis, BLENDING MACHINE FEEDER vasculitis, all d/t TTP-HUS? Delirogenic meds d/c'd. [...] KIMBALL MD, PGY-1 12/23/2012 Team A Pager #[phone] * HolbrookRebecca ferrer - 12/22/2012 6:06 PM EDT [facility] Encounter Note Patient Name: Anum Henriquez : [id number] MR#: [id number] Admit Date: 12/13/2012 7:56 PM Hospital Day 9 days Narrative: Visited at patient request. [facility] services offered and accepted. Prayer offered and accepted. Patient was made aware of Mass times, and availability of communion from [employer] ministers. Assessment: Patient was lucid, pleasant and eager to converse. Intervention and Outcome: The encounter provided significant spiritual support. Follow-up: Will refer to [employer] chaplains and also visit Sunday. Time in [...] Velazco MD - 12/22/2012 9:06 AM EDT [facility] NEPHROLOGY INPATIENT FOLLOW UP PATIENT: Anum Henriquez : 1960 ROOM: [address] [place] [address] ID: 52 y.o. female admitted for microangiopathic [...] total). LDH trending down and HGB/PLT improving. PEDOVA13vs normal and infectious work-up is negative so [...] Crum. Salvador Renner MD Nephrology Fellow Pager# [phone] Renal Staff: This patient is seen and [...] Oriented to person, thinks she is at [facility], thinks month is November, oriented to year and president, off on day of week by 1 day. 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 EOMI but disconjugate gaze when looking forward, with L eye deviating medially. Double vision. No meningismus. Unable to cooperate in strength and sensation exam. Trembling diffusely, more exaggerated versus yesterday. Worsened dysmetria with lxiqpr-hb-qgdo. Myoclonic jerks, clonus bl ankles, hyperrflexia diffusely. [...] + delirium. Possible diagnosis include ?Lupus cerebritis, BLENDING MACHINE FEEDER vasculitis, all d/t TTP-HUS? Delirogenic meds d/c'd. [...] KIMBALL MD, PGY-1 12/22/2012 Team A Pager #[phone] * Arturo Moreno MD - 12/22/2012 1:22 [...] ??? aspirin 81 mg EC tablet ??? Sbknxdsmcyg-Qhsnyzsjz-Hux C-Mn 500-400 mg Cap ??? [place]-3 Fatty Acids-Vitamin E (OMEGA-3 FISH OIL) 1,000-5 [...] questions Raad Aleman, PGY-2 Neurology Personal Pager [phone] Addendum:I saw and evaluated the patient with [...] Oriented to person, thinks she is at [facility], thinks month is November, oriented to year and president, off on day of week by 1 day. 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 EOMI but disconjugate gaze when looking forward, with L eye deviating medially. Double vision. No meningismus. Unable to cooperate in strength and sensation exam. Trembling diffusely, more exaggerated versus yesterday. Worsened dysmetria with gmscua-ie-tddw. Myoclonic jerks, clonus bl ankles, hyperrflexia diffusely. [...] all toxic-metabolic encephalopathy + delirium. ?Lupus cerebritis, BLENDING MACHINE FEEDER vasculitis, all d/t TTP-HUS? Delirogenic meds d/c'd. [...] ALEMAN MD, PGY-1 12/21/2012 Team A Pager #[phone] Fellow Addendum I have seen and examined [...] systemic fibrosis. Ming Gomez MD Fellow, Hematology/Oncology [facility] Pager #[phone] Staff 12/21/12 8pm Pt remains intermittently confused [...] Velazco MD - 12/21/2012 8:57 AM EDT [facility] NEPHROLOGY INPATIENT FOLLOW UP PATIENT: Anum Henriquez : 1960 ROOM: [address] [place] [address] ID: 52 y.o. female admitted for microangiopathic [...] total). LDH trending down and HGB/PLT improving. PPUSAO75 is normal and infectious work-up is negative [...] Crum. Salvador Renner MD Nephrology Fellow Pager# [phone] Renal Staff: This patient is seen and [...] Physician: JALEEL REYNOSO MD Transfusion Medicine Fellow/Resident: MRAIE WADE DO Date: 12/20/2012 Patient Name: Anum [...] on CXR. Implicated Component Information: Unit Number(s): [id number], [id number], [id number], [id number], [id number] Unit ABO Type(s): AB Volume Transfused: All [...] ml Laboratory Investigation: Not performed Reaction Assessment: [facility] Reaction Classification: Transfusion-associated circulatory [...] TRALI is unlikely, we have contacted the [facility] to determine the HLA status of donor [...] donors except for one unit of plasma [id number] which as donated by female who was HLA negative. This excludes the possibility of antibody mediated TRALI. Marie Wade, 12/21/2012 * Jimmy Tuttle OTA - 12/20/2012 4:04 PM EDT Occupational Therapy Encounter Spoke with RN who advised that the patient was not appropriate for therapy today, will follow up onSunday. GREGORY Nelson Pager #[phone] * Amanda Odonnell PT - 12/20/2012 1:48 PM EDT Spoke with OT who reports that pt not medically appropriate for PT today. [employer] reportedly inwith pt. Will plan to follow-up on Sunday. Amanda Odonnell PT Pager #[phone] * Ankit Ohara MD - 12/20/2012 9:34 [...] She rec'd 1 u RBCs to date SUELUTG22 was normal Exam significant for mild dysmtria, [...] MRI was normal. Confusing clinical picture, since XHQVROE31 was normal. We will give 1 u [...] Staff * uLis E Trotter MD - 12/20/2012 8:57 AM EDT [facility] NEPHROLOGY INPATIENT FOLLOW UP PATIENT: Anum Henriquez : 1960 ROOM: [address] [place] [address] ID: 52 y.o. female admitted for microangiopathic [...] Sergo Gomes MD Nephrology Fellow Pager # [phone] Renal Attending: The patient was examined together [...] returning positive (12/13/12). She was transferred to [facility] on 12/13/12 after daily labs revealed a drop in platelets from 151 to 66, increase of Cr from 0.8 to 1.2, and elevated LDH at 1187 (all per OSH). [facility] labs confirmed thrombocytopenia at 46 (currently 44), increasing Creatinine (1.4 at [facility] admission, currently 1.74) LDH of 672, dropping hemoglobin (Per OSH, 14 at initial admit, 11.9 at [facility] admit, currently 10.8), and low haptoglobin (<10). [...] 2/3 albumin, 1/3 plasma today given normal RVRPNI16 activity. Plasma given for coag factor purposes (Fibrinogen <200). - Will plan to hold treatment tomorrow and observe. If patient and/or labs (plts, LDH, etc) worsen on Sunday then we can resume TPE treatment. - F/u Plts, Hgb, LDH, Ca, coags - GI w/u per GI team. Jay Toscano MD Fellow, Hematology/Oncology Pager #: [phone] ATTENDING MD ATTESTATION: The apheresis procedure was [...] PCP: BAKARI COSTELLO APRN PCP phone number: [phone] Date of Admission: 12/13/2012 ( Hospital Day 7 days ) Service: Hem/Onc Team B - Pager [phone] Responsible Attending:Ankit Ohara MD ID: Anum Henriquez [...] skin feels tense Neuro: A&Ox3, dysmetria with wlgmnl-pu-brtr, motor 5/5 upper and lower ext. Antimicrobials: [...] PHOS -- 4.9* 4.8* 4.4 [facility] 12/20/12 0450 12/19/12 0320 12/18/12 [...] qualify her for treatment plasmapheresis. Additionally her DELIVS and altered mental status are part of [...] KIMBALL MD, PGY-1 12/20/2012 Team A Pager #[phone] * Cody Posada MD - 12/19/2012 6:16 PM EDT ID CONSULT PROGRESS NOTE Patient was not seen and examined today, but chart was reviewed. She remains hemodynamically stable and afebrile. WBC count within a normal range. HIV was negative.Stool culture at [facility] has been finalized as negative. Her clinical [...] returning positive (12/13/12). She was transferred to [facility] on 12/13/12 after daily labs revealed a drop in platelets from 151 to 66, increase of Cr from 0.8 to 1.2, and elevated LDH at 1187 (all per OSH). [facility] labs confirmed thrombocytopenia at 46 (currently 44), increasing Creatinine (1.4 at [facility] admission, currently 1.74) LDH of 672, dropping hemoglobin (Per OSH, 14 at initial admit, 11.9 at [facility] admit, currently 10.8), and low haptoglobin (<10). [...] 2/3 albumin, 1/3 plasma today given normal PSHWMT26 activity. - Will plan to treat again [...] to this. Now that we know her DKMYPY91 is normal, she no longer requires the [...] She rec'd 1 u RBCs to date VWDXVXW99 was normal at admission Based on my [...] Trotter MD - 12/19/2012 7:50 AM EDT [facility] NEPHROLOGY INPATIENT FOLLOW UP PATIENT: Anum Henriquez : 1960 ROOM: [address] [place] [address] ID: 52 y.o. 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 Subjective: Feels lousy as she could not sleep well, abdominal pain better, only had 2 somewhat formed BM's yesterday. 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 OLMLXP96 normal Today is day 5 of plasma exchange LDH still elevated, platelets still <150 noted but improving, creatinine seems to be stable for 3 days now. If no improvement is noted we may consider biopsy. KIANA, and cultures (shiga/campylobacter) noted to be negative Renal dose of medications Avoid nephrotoxins Seen and Discussed with Dr. Sergo Gomes MD Nephrology Fellow Pager # [phone] Renal Attending: The patient was examined together [...] colonoscopy Raad Bolaños MD PhD Gastroenterology Fellow ([id number]) * Rehana John T - 12/19/2012 5:52 AM EDT Inpatient Hematology/Oncology/SCT Progress Note Patient info: Name: Anum Henriquez : 1960 PCP: BAKARI COSTELLO APRN PCP phone number: [phone] Date of Admission: 12/13/2012 ( Hospital Day 6 days ) Service: Hem/Onc Team B - Pager [phone] Responsible Attending:Ankit Ohara MD ID: Anum Henriquez [...] KIMBALL MD, PGY-1 12/19/2012 Team A Pager #[phone] * Jose Kaur, DRU - 12/18/2012 6:00 [...] 15 minutes for functional there ex Pager: [phone] GIANNA HDZ OT Occupational Therapy Rehabilitation Department * Betsy Forman, PT - 12/18/2012 11:54 AM EDT Physical Therapy Treatment Note Visit #: 07/21 Patient profile: Pt. is a 52 y.o. female admitted on 12/13/2012 by Fabi Grimm MD w/ [facility] on methimazole, transferred from Medicine with clinical [...] minutes Total timed interventions: 15 minutes Pager: [phone] BETSY FORMAN PT Physical Therapy Rehabilitation Department [...] Trotter MD - 12/18/2012 8:51 AM EDT [facility] NEPHROLOGY INPATIENT FOLLOW UP PATIENT: Anum Henriquez : 1960 ROOM: [address] [place] [address] ID: 52 y.o. female admitted for microangiopathic [...] of clinical indication of renal replacement therapy. [id number], expected to be back today Stool cultures pending, LDH still elevated, platelets still <150 noted but improving, creatinine seems to be stable for 2 days now and may represent that in the next couple of days it will start to decrease, if this is not the case and CGMIGM45 is negative will consider renal biopsy ANCA's, hepatitis C noted to be within normal limits. Renal dose of medications Avoid nephrotoxins Seen and Discussed with Dr. Sergo Gomes MD Nephrology Fellow Pager # [phone] Renal Attending: The patient was examined together [...] returning positive (12/13/12). She was transferred to [facility] on 12/13/12 after daily labs revealed a drop in platelets from 151 to 66, increase of Cr from 0.8 to 1.2, and elevated LDH at 1187 (all per OSH). [facility] labs confirmed thrombocytopenia at 46 (currently 44), increasing Creatinine (1.4 at [facility] admission, currently 1.74) LDH of 672, dropping hemoglobin (Per OSH, 14 at initial admit, 11.9 at [facility] admit, currently 10.8), and low haptoglobin (<10). [...] PCP: BAKARI COSTELLO APRN PCP phone number: [phone] Date of Admission: 12/13/2012 ( Hospital Day 5 days ) Service: Hem/Onc Team B - Pager [phone] Responsible Attending:Ankit Ohara MD ID: Anum Henriquez [...] KIMBALL MD, PGY-1 12/18/2012 Team A Pager #[phone] * Luis E Trotter MD - 12/17/2012 5:34 PM EDT [facility] NEPHROLOGY INPATIENT FOLLOW UP PATIENT: Anum Henriquez : 1960 ROOM: [address] [place] [address]-A ID: 52 y.o. female admitted for diarrhea, [...] of clinical indication of renal replacement therapy. DHBCSQ34 and stool cultures pending LDH still elevated, [...] returning positive (12/13/12). She was transferred to [facility] on 12/13/12 after daily labs revealed a drop in platelets from 151 to 66, increase of Cr from 0.8 to 1.2, and elevated LDH at 1187 (all per OSH). [facility] labs confirmed thrombocytopenia at 46 (currently 44), increasing Creatinine (1.4 at [facility] admission, currently 1.74) LDH of 672, dropping hemoglobin (Per OSH, 14 at initial admit, 11.9 at [facility] admit, currently 10.8), and low haptoglobin (<10). [...] evening did not get sent out to [place] until yesterday evening. Results will not likely [...] PCP: BAKARI COSTELLO APRN PCP phone number: [phone] Date of Admission: 12/13/2012 ( Hospital Day 4 days ) Service: Hem/Onc Team B - Pager [phone] Responsible Attending:Fabi Bliss MD ID: Anum Henriquez [...] KIMBALL MD, PGY-1 12/17/2012 Team A Pager #[phone]+++++++++++++++++++++++++++++++++++++++++++++++++++++++++++++++ Attending Addendum: I personally saw, examined [...] is negative. 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 LZBYML86 pending - should be back today. 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 ID - shigatoxin, stool culture and campylobacter pending. HIV negative. Will consult GI for any other ideas on the bloody diarrhea - does not seem like typical CDiff. * Luis E Trotter MD - 12/16/2012 12:45 PM EDT [facility] NEPHROLOGY INPATIENT FOLLOW UP PATIENT: Anum Henriquez : 1960 ROOM: [address] [place] [address] ID: 52 y.o. female admitted for acute [...] of clinical indication of renal replacement therapy. MEOVFL62, ANCAs and stool cultures pending LDH still [...] Sergo Gomes MD Nephrology Fellow Pager # [phone] Renal Attending: The patient was examined together [...] Office of Care Management (OCM) / Clinical Patent Engineer (CRC) Initial Assessment Care reviewed with hematology/blood [...] ??? aspirin 81 mg EC tablet ??? Pboyufutuwz-Yuplbroyf-Wwr C-Mn 500-400 mg Cap ??? [place]-3 Fatty Acids-Vitamin E (OMEGA-3 FISH OIL) 1,000-5 mg-unit Cap ??? CALCIUM ORAL Allergies Allergen Reactions ??? Erythromycin Base Subjective: States she feels a little confused today. Complains of a headache. F Previous functional status: Patient was independent with mobility/ambulation, transfers, ADL's, IADL's. 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 Current functional status: Is ambulating independently in room> [x} No Rehab referral: [x} Yes Home set up: Single story home with no steps to enter. Family and social supports: with grown son and daughter that live locally. Has lived in [facility] all of her life. Mother and father are in a chcf close by. Many friends and well connected in the community. Extended Emergency Contact Information Primary Emergency Contact: Liu Henriquez Relation: Durable Power of Sewing Machine Attachment Tester for Healthcare Secondary Emergency Contact: Liu Roberts Relation: Sibling Father: Venita Vora Advance directives: None on file. States she has a copy at home. Code status: Full Code Insurance: Commercial CBA Blue Financial Issues: [x} No Referral to financial services: [x} No Preferred Pharmacy: [address] outpatient pharmacy. DME: No Home Health Agency: [x} No IV Access: Double lumen pheresis catheter and PICC Home Infusion: No PHARMACY GRAD INTERN Referral: Rebecca Tinoco PHARMAC[facility] GRAD INTERN Referral indicated: [x} No Primary Care Physician: BAKARI COSTELLO APRN [phone] Primary [facility] Bend Sorter: Admitted on Dr. Bliss's service. Referring Bend Sorter: N/A Potential discharge needs: Undetermined Anticipated barriers to discharge: Undetermined Transportation at discharge: Spouse or family member. Plan: [facility] will continue to monitor progress, follow for continuity of care and assist with discharge planning. No future appointments. Gorge Bishop RN Clinical Patent Engineer Office of Care Management Pager [phone] * Jaleel Reynoso MD - 12/16/2012 9:06 AM EDT Transfusion Medicine Service Procedure Note Transfusion Medicine Attending Physician: Dr Jaelel Reynoso Transfusion Medicine Resident/Fellow: Jay Toscano MD [...] returning positive (12/13/12). She was transferred to [facility] on 12/13/12 after daily labs revealed a drop in platelets from 151 to 66, increase of Cr from 0.8 to 1.2, and elevated LDH at 1187 (all per OSH). [facility] labs confirmed thrombocytopenia at 46 (currently 44), increasing Creatinine (1.4 at [facility] admission, currently 1.74) LDH of 672, dropping hemoglobin (Per OSH, 14 at initial admit, 11.9 at [facility] admit, currently 10.8), and low haptoglobin (<10). [...] be considered. We will continue to await [id number] results, the results of which will factor [...] PCP: BAKARI COSTELLO APRN PCP phone number: [phone] Date of Admission: 12/13/2012 ( Hospital Day 3 days ) Service: Hem/Onc Team B - Pager [phone] Responsible Attending:Fabi Bliss MD ID: Anum Henriquez [...] KIMBALL MD, PGY-1 12/16/2012 Team B Pager #[phone] ++++++++++++++++++++++++++++++++++++++++++++++++++++++++++++++++ Attending Addendum: I personally saw, examined [...] PCP: BAKARI COSTELLO APRN PCP phone number: [phone] Date of Admission: 12/13/2012 ( Hospital Day 2 days ) Service: Hem/Onc Team B - Pager [phone] Responsible Attending:Fabi Bliss MD ID: Anum Henriquez [...] ALEMAN MD, PGY-1 12/15/2012 Team B Pager #[phone] ++++++++++++++++++++++++++++++++++++++++++++++++++++++++++++++++ Attending Addendum: I personally saw, examined [...] (third stool sample ) At outside hosp. [id number] is pending. * Jaleel Reynoso MD - [...] returning positive (12/13/12). She was transferred to [facility] on 12/13/12 after daily labs revealed a drop in platelets from 151 to 66, increase of Cr from 0.8 to 1.2, and elevated LDH at 1187 (all per OSH). [facility] labs confirmed thrombocytopenia at 46 (currently 44), increasing Creatinine (1.4 at [facility] admission, currently 1.74) LDH of 672, dropping hemoglobin (Per OSH, 14 at initial admit, 11.9 at [facility] admit, currently 10.8), and low haptoglobin (<10). [...] 80 mL. Vital signs: Pre (0930 hrs): DV=188/83; P=95; R=18; T=36.2 Post (1158 hrs): NS=589/80; P=82; R=18; T=36.5 Complications noted (if any): [...] be considered. We will continue to await [id number] results, the results of which will factor [...] returning positive (12/13/12). She was transferred to [facility] on 12/13/12 after daily labs revealed a drop in platelets from 151 to 66, increase of Cr from 0.8 to 1.2, and elevated LDH at 1187 (all per OSH). [facility] labs confirmed thrombocytopenia at 46 (currently 44), increasing Creatinine (1.4 at [facility] admission, currently 1.74) LDH of 672, dropping hemoglobin (Per OSH, 14 at initial admit, 11.9 at [facility] admit, currently 10.8), and low haptoglobin (<10). [...] 66 mL. Vital signs: Pre (1945 hrs): LV=022/87; P=93; R=18; T=98.3 Post (2200 hrs): OI=425/90; P=87; R=18; T=99.3 Complications noted (if any): [...] may be considered. We will also await VVRFXM29 results, which will highly factor into our [...] APRN, Pt ID:52 y.o. Female presents to [facility] with abdominal pain and bloody diarrhea with [...] exchange transfusion this afternoon. MELBA BASS MD [facility] [phone] * Cristobal Reid RN - 12/14/2012 5:30 PM EDT [facility] NURSING DATABASE Name: ANUM HENRIQUEZ Date of : 1960 AGE 52 y.o. Address: [address] [place] [address] [address] [facility] [id number] (home) Mobile: No relevant phone numbers on [...] MD aspirin 81 mg EC tablet 12/03/09 Kihiovasajr-Jhadvvcyx-Wne C-Mn 500-400 mg Cap 12/03/09 [place]-3 Fatty Acids-Vitamin E (OMEGA-3 FISH OIL) 1,000-5 mg-unit Cap 12/03/09 CALCIUM ORAL 12/03/09 For outpatient procedures: This patient has been informed that they require a ambulance driver to drive them home after this procedure. In the absence of a ambulance driver, IR will not be able to [...] ??? aspirin 81 mg EC tablet ??? Doqxwdcakmt-Lzgvjqisb-Spv C-Mn 500-400 mg Cap ??? [place]-3 Fatty Acids-Vitamin E (OMEGA-3 FISH OIL) 1,000-5 [...] go to interventional radiology and then to hertnw room. 1654-Patient being transported now. Notified the doctor and his nurse on . * Gianna Bowens RN - 12/14/2012 1:36 AM EDT Nursing Progress Note 12/13/[id number] Shift Events: 1999 - [facility]. A/O with stable VS on R/A. [...] Resolved ID: 52 y.o. Female presents to [facility] with abdominal pain and bloody diarrhea History of Present Illness: HPI Mrs. Henriquez is a 52F w/ h/o hyperthyroidism, who presents with a several day history of abdominalpain and bloody diarrhea. History obtained by patient and from OSH records. Pt originally presentedto [facility] ED on 12/10 after [...] of note, pt has been on fentanyl SUBSEA ENGINEER since Sunday. Pt was transferred to [facility] for further management. Pt afebrile and hemodynamically [...] ??? aspirin 81 mg EC tablet ??? Wgacgboiggf-Zvandgsyx-Pub C-Mn 500-400 mg Cap ??? [place]-3 Fatty Acids-Vitamin E (OMEGA-3 FISH OIL) 1,000-5 mg-unit Cap ??? CALCIUM ORAL Allergies: Allergies Allergen Reactions ??? Erythromycin Base ??? Milk CIS - Localized Reaction ??? 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 No tinkling bowel sounds on exam, no rebound or guarding, as well, nausea is under control. I am wary about placing an NGT given her thrombocytopenia - will hold off for now and monitor closely. Rest of plan outlined below: # Admit to Medicine - Blue Team, pager [phone] # Hemorrhagic colitis, abdominal pain: - will [...] 12/28/2012 9:39 AM EDTAssociated Order(s): SCAN DOC: SHAPE CARVER * Provider, Scanning - 12/28/2012 9:38 AM [...] to the planned procedure. Hand Hygiene: The pocket builder did perform hand hygiene prior to line insertion. Catheter type: PICC Lot number: [id number] Procedure Technique: Skin was prepped with chlorhexidine. [...] to the planned procedure. Hand Hygiene: The pocket builder did perform hand hygiene prior to line insertion. Catheter type: PICC Lot number: [id number] Procedure Technique: Skin was prepped with chlorhexidine. [...] 5 OR OLDER VIR PROCEDURE NOTE ACC#: [id number] PROCEDURE: Non-tunneled right internal jugular triple lumen [...] (PICC) Teaching Sheet Peripherally inserted central catheters (vygl-hx-qhbb) (PICC) are used when you need IV [...] midline catheter? PICC lines are used for continuous washer operator treatments. PICC lines may be used for [...] can be set up via the nurse Senior Hydrogeologist to help you. What are possible complications [...] Patient described as pulsating, mostly in R alevism but neck aching as well. Heating pad [...] Ms. Henriquez has consistently denied pain this night coordinator. She has been alert and oriented X [...] ANUM HENRIQUEZ Ordered By: ANKIT OHARA MR#: [id number] LOC: 1WST /Sex: 1960 (52 years), Female [...] UA Negative Appearance UA Clear Clear Spec [place] UA 1.007 1.002 - 1.030 Color UA Light Yellow Yellow RBC UA 8 (*) 0 - 4 /HPF WBC UA 6 (*) 0 - 5 /HPF Gran Cast UA 2 (*) <=0 /LPF PRO-BRAIN NATRIURETIC PEPTIDE Component Value Range ProBNP 2411 (*) <=125 pg/mL URINE CULTURE Component Value Range Urine Culture Value: Patient Name: ANUM HENRIQUEZ Ordered By: ANKIT OHARA MR#: [id number] LOC: 1WS /Sex: 1960 (52 years), Female PROCEDURE: Urine Culture SOURCE: U ICath COLLECTED: 12/20/2012 16:49 STARTED: 12/20/2012 17:07 PRELIMINARY REPORT Preliminary Report Verified:12/21/2012 12:39 Greater than 100,000 cfu/ml Staphylococcus aureus BLOOD CULTURE Component Value Range Blood Culture Value: Patient Name: ANUM HENRIQUEZ Ordered By: ANKIT OHARA MR#: [id number] LOC: /Sex: 1960 (52 years), Female PROCEDURE: [...] Aleman MD PGY-2 Neurology Resident Personal Pager [phone] Consult Pager [phone] Addendum: I saw and evaluated the patient [...] PMH of hyperthyroidism on methimazole who presentedto [facility] with several days of abdominal pain and diarrhea that progressed from watery to bloody. 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 She was transferred to [facility] on 12/13 after 3 days at OSH (day 6 of illness) Labs on admission to [facility] were notable for WBC = 13, HgB 14.5, Plts 151 w/ fecal leukocytes in the stool and negative Cdiff studies. A drop in platelets (151 to 66) and bump in her creatinine prompted transfer to [facility] with concern for evolving TTP-HUS. Throughout her [...] [facility] After a few days at [facility], and just prior to transfer to [facility], she feels her diarrhea had improved somewhat [...] the concerns over Cdiff as the possible ambulance driver. From a GI perspective, endoscopy, especially [...] anemia Raad Bolaños MD PhD Gastroenterology Fellow ([id number]) GI Staff Patient seen and examined this [...] anxiety and comfortable MRI experience. Close cousin (CLIN ASST) roomed in overnight and was very helpful [...] 0 minutes BETSY FORMAN PT 12/17/2012 Pager: [phone] Physical Therapy Rehabilitation Department * Initial Assessments [...] PT. Pt' first cousin, who is an MARKET SURVEY REPRESENTATIVE, present. Cognitive Status/Behavior: alert, oriented to person, [...] minutes Total timed interventions: 0 minutes Pager: [phone] GIANNA HDZ OT 12/17/2012 Occupational Therapy Rehabilitation [...] Nephrology appt. arranged. Vancomycin 750 mg IV K99racjx for 3 weeks total since line removal [...] and from OSH records. Pt originally presentedto [facility] ED on 12/10 after [...] of note, pt has been on fentanyl SUBSEA ENGINEER since Sunday. Pt was transferred to [facility] for further management. Pt afebrile and hemodynamically [...] acutely agitated, was mumbling in coherently in bulgarian and costa rican and exam revealed acute exaggeration of upper [...] donors except for one unit of plasma [id number] which as donated b y female who [...] (ref <1.0) Sm Ab, IgG: <0.2 (neg) TEACHER THEATER ARTS Ab, IgG: <0.2 (neg) Scl 70 Ab, [...] fluid. Consistent with colitis, infectious or inflammatory. [facility] read of above film: Marked thickening of [...] with provider. Continued medications, unchanged Dose Details Glplxjodvjw-Bvxkondhd-Sdt C-Mn 500-400 mg Cap [place]-3 Fatty Acids-Vitamin E (OMEGA-3 FISH OIL) 1,000-5 [...] 12/30/2012 12:45PM, Provider: Dr. Rob Mejia, Location: [place] [address], Your Inpatient Doctor(s) at [facility]: Attendings: Dr. Cristina, Dr. Ohara, Dr. Bliss Fellow: Dr. Gomez Residents: Dr. Guzmán, Dr. Aleman Rn Cardiology: Dr. Kimball General Instructions Other Provider Recommendations [...] INSERTED CENTRAL CATHETER (PICC): AFTER YOUR VISIT (FRENCH) Appointment with Primary Care Provider: 12/30/2012 12:45PM, Provider: Dr. Rob Mejia, Location: [address] [address], Your To Do List Future Appointments: Provider: Department: Dept Phone: Center: 01/01/2013 12:35 PM Fabi Bliss MD Hematology/Oncology [phone] [facility] 01/13/2013 3:30 PM Brian Velazco MD Nephrology [phone] [facility] 01/14/2013 10:05 AM Minor Kebede MD Endocrinology [phone] [facility] 01/14/2013 10:30 AM Clovis Varner MD Endocrinology [phone] [facility] Future Orders Please Complete By Expires OPAT: Order / Recommendation for Post Discharge IV Antibiotic Management [JDR994 CPT(R)] Process Instructions: If no progress note charted, please enter Clinical details in comments. Scheduling Instructions: Comments: Please Fax all results to: OPAT Program Infectious Disease Section [facility], [place] [address] FAX: Line care instructions per [facility] OPAT Program protocol. After hours, please contact the Infectious Disease Physician integration architect at . If this order was signed greater than 72 hours prior to [facility] discharge, please call to confirm the accuracy [...] Diagnosis: Bacteremia; HUS Referral for Outpatient Antibiotics [SNG8637 CPT(R)] Process Instructions: Scheduling Instructions: Comments: Questions: Responses: Patient location post discharge Home Start date 12/28/2012 Responsible MD post discharge contact info Out Patient Antibiotic Team Vendor / contact information [facility] Service requested IV abx Referral to Home Health [[id number] CPT(R)] Process Instructions: Scheduling Instructions: Comments: DOCUMENTATION FOR VNA SERVICES (INCLUDING THOSE PATIENTS WITH MEDICARE COVERAGE REQUIRING HOME VNA SERVICES AND/OR HOSPICE SERVICES) This is preliminary information related to the patient's needs and confirmation of Face to Face Encounter. The denoted information will require completion and an electronic signature by the physicianupon finalization of these orders. PATIENT'S LOCATION: Address: [address] [place] [address] [address] [facility] [address] Tel. #: [phone] (home) Preparing Box Tender's Name: In discussion with the attending physician, it is certified that this patient is under their care and that they, or a nurse practitioner, clinical nurse specialist or physician's children's nursery assistant who is working directly with them, [...] free T4, please send these labs to [facility] , Attn: Jinny Please send Sunday CMP to Renal [facility], Attn: Dr. Velazco Please send INR to Attn: Dr. Rob Mejia, Responsible Attending: Tyson Patel MD Last documented weight (kg): 68.9 kg (151 lb 14.4 oz) Last documented height (cm): 170.2 cm (5' 7) Please Fax all results to: OPAT Program Infectious Disease Section [facility], [place] [address] FAX: START OF CARE DATE: 12/28/12 All VNA agencies which cover the area of patient's residence have been reviewed, either verbally tanvir writing, and patient/family have chosen the home health care agency as follows for home services: HOME HEALTH CARE AGENCY: [facility], [facility] PHONE: [phone] FAX: [phone] VENDOR: [facility] Address [address] [place] [address] Equipment ordered: IV antibiotic and line supplies. Ordering Provider: Dr. John Kimball Ordering Provider Phone #: [phone] [place] [address] Questions: Responses: Agency name and contact information [...] Contact Information: BAKARI COSTELLO APRN [facility] [address] [place] [place] [address] Signed: FLYNN FRAUSTO MD Discharged: 12/27/2012 * [...] to improve so she was transferred [facility] and admitted to the medicine service. Of note, C. Diff on 12/13 returned positive despite 2 prior negative tests. At [facility] patient was initially continued on Cipro and Flagyl. She was noted to have decreasing plts and worsening renal function. 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 She was transferred to the hematology service. IR placed a cath for plasma exchange on 12/14, [id number] was sent, and patient was started on plasma exchange 12/14. Nephrology was also consulted and recommended checking ANCA and complement levels, as well. Cipro was stopped on 12/16 for concern of contributing to TTP/HUS, but Flagyl was continued due to positive C. diff at the OSH. CT scan was re-read at [facility] and was read as showing findings concerning for pseudomembranous colitis. C. diff at [facility] was negative. 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 Upon transfer to [facility], she was found to havemicroangiopathic hemolytic anemia [...] is sent, please call the microbiology lab ([phone]) so they will not cancel the stool [...] >1000). She was t ransferred to the [facility] on 12/13. A peripheral smear showed schistocytes, [...] well as propylthiouracil) has been linked with QJA-THIC-fiuqhjkpjt vasculitis on multiple occassions (Nojovani CrumY, Yashay [...] PM EDT Problem: Knowledge Deficit (Adult, Pediatric, Far[place], NICU, Obstetric) Goal: Knowledge Deficit: Knowledgeable about Subject/Topic Outcome: Outcome achieved Date Met: 12/15/12 Peripherally Inserted Central Catheter (PICC) Teaching Sheet: Discussed risks/benefits of PICC with pt. Verbalizes understanding. Peripherally inserted central catheters (cpcr-pg-buht) (PICC) are used when you need IV [...] midline catheter? PICC lines are used for continuous washer operator treatments. PICC lines may be used for [...] can be set up via the nurse Senior Hydrogeologist to help you. What are possible complications [...] Efficacy, Safety, Use, and Administration of [employer], [employer] 2005 * Plan of Care - [...] returning positive (12/13/12). She was transferred to [facility] on 12/13/12 after daily labs revealed a drop in platelets from 151 to 66, increase of Cr from 0.8 to 1.2, and elevated LDH at 1187 (all per OSH). [facility] labs confirmed thrombocytopenia at 46 (currently 44), increasing Creatinine (1.4 at [facility] admission, currently 1.74) LDH of 672, dropping hemoglobin (Per OSH, 14 at initial admit, 11.9 at [facility] admit, currently 10.8), and low haptoglobin (<10). [...] to <10% by both removing autoantibodies against HBFGTL58 and replacing deficient levels. As the etiology [...] is recommended to administer TPE while awaiting TVGWNB67 results so as not to miss an opportunity to effectively treat the otherwise often-fatal TTP. 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 Once these criteria are met, a taper regimen may be considered. We will also await WHTEOX05 results, which will highly factor into our [...] on the optimal way to interpret the ZTRQNA11 findings, when they are back. A very low CGHMKE63 level (<5%), (especially when combined with the presence of an inhibitor (i.e. antibody)) is highly specific for TTP and the diagnosis is essentially confirmed if this result is returned. However, the test is only about 2/3 sensitive....that is, a negative result (normal levels of DSLKKT01) does not rule out TTP, since as many as 30% of TTP patients do not have loss of ZLQCZG78; this presumably involves modulation of another component of the pathway that involves cleaving LMW VWR multimers but these other components are not as well defined, and there is no clinically useful test for these, currently. Also, using KAEHBA76 level itself to assess treatment efficacy is not recommended, since some patients recover clinically after a course of plasmapheresis, but never recover their CTHXKO96 levels. This phenomenon supports the model that that TTP is likely a two-hit disease. Loss of SDRONH60 is not sufficient to bring on clinical disease but some other stressor is needed. It can be speculated that Anum's recent GI symptoms may constitute that second stressor. Also noteworthy is that those patients that recover clinically yet continue to have low VFZKFG92 levels appear to be more likely to [...] or problematic foods. She was admitted to [facility] on 12/10/12 where they [...] 0.8 prior. Therefore, she was transferred to [facility] yesterday for further management. Hospital medicine calls [...] for 10+ years. 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 Lives at home with her . They speak Andorran as their primary language and I believe they are Andorran-Bhutanese, although she was born here in . [...] ??? aspirin 81 mg EC tablet ??? Znnjqvhrhgv-Pknbspcmi-Oyt C-Mn 500-400 mg Cap ??? [place]-3 Fatty Acids-Vitamin E (OMEGA-3 FISH OIL) 1,000-5 [...] arms, face, or legs Labs: Labs at [facility]: 12/10/12: WBC count of [...] ADAMTS 13 activity and removing autoantibodies against IHPXKW29,etc. 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 No acute indication for PROCEDURE WRITER. Renal dose meds. Avoid nephrotoxins. Seen and Discussed w/ Dr. Sergo greene Pager -[phone] Renal Attending: The patient was examined together [...] Comments LAB SCAN 01/29/2013 11:49 AM EDT SHAPE CARVER SCAN 12/28/2012 9:39 AM EDT LAB SCAN [...] 12/20/2012 12:20 PM EDT TYPE AND SCREEN ([facility]) Routine 12/20/2012 12:20 PM EDT H. PYLORI [...] 12/17/2012 4:00 AM EDT STOOL CULTURE SCREEN ([facility]) Routine 12/17/2012 3:32 AM EDT CAMPYLOBACTER ANTIGEN Routine 12/17/2012 3:32 AM EDT CRYPTOSPORIDIUM OOCYST ANTIGEN ([facility]) Routine 12/17/2012 3:32 AM EDT SHIGA TOXIN ASSAY Routine 12/17/2012 3:3 2 AM EDT GIARDIA/CRYPTOSPORIDIUM ANTIGENS ([facility]) Routine 12/17/2012 3:32 AM EDT GIARDIA ANTIGEN ([facility]) Routine 12/17/2012 3:32 AM EDT STOOL CULTURE Routine 12/17/2012 3:32 AM EDT MRI BRAIN WO CONTRAST Routine 12/16/2012 9:02 PM EDT HIV SCREEN, 4TH GENERATION ([facility]) Routine 12/16/2012 6:[address] PICC [...] ACCESS NON-DIALYSIS Routine 12/14/2012 6:05 PM EDT [id number] ACTIVITY STAT 12/14/2012 2:0 2 PM EDT CYTOPLASMIC NEUTROPHILIC AB Routine 12/14/2012 12:03 PM EDT PROTEINASE-3 ANTIBODY Routine 12/14/2012 12:03 PM EDT MYELOPEROXIDASE AB Routine 12/14/2012 12 :03 PM EDT ABO/RH TYPING STAT 12/14/2012 9:47 AM EDT RETICULOCYTE COUNT STAT 12/14/2012 9: 47 AM EDT ANTIBODY SCREEN STAT 12/14/2012 9:47 AM EDT TYPE AND SCREEN ([place]/[facility]/JENNIFER) STAT 12/14/2012 9:47 AM EDT DIRECT ANTIGLOBULIN [...] SCAN EXT O RDR/RSLT * SCAN DOC: SHAPE CARVER (12/28/2012 9:39 AM EDT) Anatomical Region Laterality [...] Lab Haris Jarvis MD CHEMISTRY ORDERABLES [facility] * Place PICC Line: Contact Vascular Access Page [phone] (12/27/2012 12:12 PM EDT) Narrative Edvin Brian [...] to the planned procedure. Hand Hygiene: The pocket builder did perform hand hygiene prior to line insertion. Catheter type: PICC Lot number: [id number] Procedure Technique: Skin was prepped with chlorhexidine. [...] to the planned procedure. Hand Hygiene: The pocket builder did perform hand hygiene prior to line insertion. Catheter type: PICC Lot number: [id number] Procedure Technique: Skin was prepped with chlorhexidine. [...] MD HEMATOLOGY ORDERABLE S Performing Organization Address [facility] Phone Number [facility] * Prothrombin Time (12/27/2012 3:57 AM EDT) Prothrombin Time 14.0 12.0 - 15.0 sec [facility] Comment: [facility] Transfusion Committee Guidelines: INR less than 2.0, PTT less than OR equal to 43.5 seconds, or Fibrinogen greater than or equal to 100 mg/dl indicate adequate procoagulant activity for hemostasis in patients without underlying bleeding disorders. International Normalization Ratio 1.0 0.9 - 1.1 [facility] Blood specimen (specimen) 12/27/2012 3:57 AM EDT 12/27/2012 4:03 AM EDT Narrative Resulting Agency Comment Spec In Lab Haris Jarvis MD HEMATOLOGY ORDERABLE S Performing Organization Address [facility] Phone Number [facility] * Phosphorus (12/27/2012 3:57 AM EDT) Phosphorus 4.4 2.5 - 4.5 mg/dL [facility] Blood specimen (specimen) 12/27/2012 3:57 AM EDT 12/27/2012 4:03 AM EDT Narrative Resulting Agency Comment Spec In Lab Fabi Bliss MD CHEMISTRY ORDERA BLES Performing Organization Address [facility] de Phone Number [facility] * Magnesium (12/27/2012 3:57 AM EDT) Magnesium 0.81 0.69 - 1.07 mmol/L [facility] Blood specimen (specimen) 12/27/2012 3:57 AM [...] intervals supplied above were not validated at [place]. Results from pediatric patients should be interpreted [...] MD HEMATOLOGY ORDERABLE S Performing Organization Address City/[facility]/ZIP Co de Phone Number [facility] * (ABNORMAL) APTT (12/26/2012 10:31 AM EDT) Partial Thromboplastin Time 36(H) 25 - 35 sec [facility] Comment: Recommended therapeutic PTT range for full dose unfractionated heparin is 80-114 seconds. Blood specimen (specimen) 12/26/2012 10:31 AM EDT 12/26/2012 10:37 AM EDT Narrative Resulting Agency Comment Spec In Lab Haris Jarvis MD HEMATOLOGY ORDERABLE S Performing Organization Address [facility] Co de Phone Number [facility] * Antibody screen (12/26/2012 10:31 AM EDT) Ab Screen Interp Negative [facility] Expires at [id number] on: [id number] [facility] Blood specimen (specimen) 12/26/2012 10:31 AM EDT 12/26/2012 10:43 AM EDT Narrative Resulting Agency Comment Spec In Lab Ankit Ohara MD BLOOD BANK LAB ORDER VIKAS Performing Organization Address [facility] de Phone Number [facility] * ABO/Rh Typing (12/26/2012 10:31 AM EDT) ABORH Type AB Pos [facility] Blood specimen (specimen) 12/26/2012 10:31 AM EDT 12/26/2012 10:43 AM EDT Narrative Resulting Agency Comment Spec In Lab Ankit Ohara MD BLOOD BANK LAB ORDER VIKAS Performing Organization Address [facility] Co de Phone Number [facility] * Free Thyroxine Index (12/26/2012 3:42 AM EDT) Pathologist [facility] [place] Free Thyroxine Index 6.8 4.5 - 9.5 mcg/dL [facility] Comment: Females: 5. 5-10.5 mcg/dL Blood specimen (specimen) 12/26/2012 3:42 AM EDT 12/26/2012 3:47 AM EDT Narrative Resulting Agency Comment Spec In Lab Luis E Trotter MD CHEMISTRY ORDERABLES Performing Organization Address [facility] Co de Phone Number [facility] * T3 (12/26/2012 3:42 AM EDT) T3 Total 77 75 - 170 ng/dL [facility] Blood specimen (specimen) 12/26/2012 3:42 AM EDT 12/26/2012 3:47 AM EDT Narrative Resulting Agency Comment Spec In Lab Luis E Trotter MD CHEMISTRY ORDERABLES Performing Organization Address [facility] de Phone Number [facility] * T Uptake (12/26/2012 3:42 AM EDT) Pathologist [facility] [place] T Uptake 0.99 0.80 - 1.30 ratio [facility] Comment: Tup assay is directly proportional to Thyroid binding protein concentration, thus FT4 Index = TT4/Tup. Cord Blood Reference Range: ??0.74-1.28. Blood specimen (specimen) 12/26/2012 3:42 AM EDT 12/26/2012 3:47 AM EDT Narrative Resulting Agency Comment Spec In Lab Luis E Trotter MD CHEMISTRY ORDERABLES Performing Organization Address [facility] Co de Phone Number [facility] * T4 (12/26/2012 3:42 AM EDT) Pathologist [facility] [place] T4 Total 6.7 5.1 - 10.8 mcg/dL [facility] Comment: Reference Range: Cord Blood: ??6.9-14.4 mcg/dL Females: ??7.2-14.2 mcg/dL Pediatric ranges: ??Interpret with caution-ranges have not been verified Blood specimen (specimen) 12/26/2012 3:42 AM EDT 12/26/2012 3:47 AM EDT Narrative Resulting Agency Comment Spec In Lab Luis E Trotter MD CHEMISTRY ORDERABLES Performing Organization Address City/[facility]/ZIP Co de Phone Number [facility] * TSH (12/26/2012 3:42 AM EDT) Thyroid Stimulating Hormone 1.97 0.27 - 4.20 mcIU/mL [facility] Blood specimen (specimen) 12/26/2012 3:42 AM EDT 12/26/2012 3:47 AM EDT Narrative Resulting Agency Comment Spec In Lab Luis E Trotter MD CHEMISTRY ORDERABLES Performing Organization Address [facility] de Phone Number [facility]OS[facility] * Differential, [...] Gran Absolute 0.02 0.00 - 0.05 x10(3)/mcL [facility] Blood specimen (specimen) 12/26/2012 3:42 AM EDT 12/26/2012 3:46 AM EDT Luis E Trotter MD HEMATOLOGY ORDERABLE S Performing Organization Address [facility] Co de Phone Number [facility] * Phosphorus (12/26/2012 3:42 AM EDT) Phosphorus 4.1 2.5 - 4.5 mg/dL [facility] Blood specimen (specimen) 12/26/2012 3:42 AM EDT 12/26/2012 3:46 AM EDT Narrative Resulting Agency Comment Spec In Lab Fabi Bliss MD CHEMISTRY ORDERA ERICK Performing Organization Address [facility] de Phone Number [facility] * Magnesium (12/26/2012 3:42 AM EDT) Magnesium 0.80 0.69 - 1.07 mmol/L [facility] Blood specimen (specimen) 12/26/2012 3:42 AM EDT 12/26/2012 3:46 AM EDT Narrative Resulting Agency Comment Spec In Lab Fabi Bliss MD CHEMISTRY ORDERA BLERenuka Performing Organization Address [facility] de Phone Number [facility] * (ABNORMAL) Lactate Dehydrogenase (12/26/2012 3:42 AM EDT) Lactate Dehydrogenase 255(H) 110 - 220 unit/L [facility] Blood specimen (specimen) 12/26/2012 3:42 AM EDT 12/26/2012 3:46 AM EDT Narrative Resulting Agency Comment Spec In Lab Fabi Bliss MD CHEMISTRY ORDERA BLERenuka [facility] * (ABNORMAL) Basic Metabolic Panel (non-fasting) (12/26/2012 3:42 AM EDT) [facility] Signature Glucose 99 60 - 199 mg/dL [facility] Comment:Diabetes: >=200 mg/d L plus symptoms Blood Urea Nitrogen 11 8 - 18 mg/dL [facility] Creatinine 2.05(H) 0.70 - 1.20 mg/dL [facility] Comment: Please note that the pediatric reference intervals supplied above were not validated at [place]. Results from pediatric patients should be interpreted [...] Trotter MD CHEMISTRY ORDERABLES Performing Organization Address [facility]/ZIP Co de Phone Number BAR ARCOSENNIUM [...] MD HEMATOLOGY ORDERABLE S Performing Organization Address [facility]/ZIP Co de Phone Number BAR NOE [...] Jarvis MD CHEMISTRY ORDERABLES Performing Organization Address [facility] Co de Phone Number [facility]ITAL[facility] * APTT (12/25/2012 3:26 PM EDT) Partial Thromboplastin Time 31 25 - 35 sec [facility] Comment: Recommended therapeutic PTT range for full dose unfractionated heparin is 80-114 seconds. Blood specimen (specimen) 12/25/2012 3:26 PM EDT 12/25/2012 3:39 PM EDT Narrative Resulting Agency Comment Spec In Lab Haris Jarvis MD HEMATOLOGY ORDERABLE S Performing Organization Address [facility] de Phone Number BAR NOE * Prothrombin Time (12/25/2012 3:26 PM EDT) Prothrombin Time 14.5 12.0 - 15.0 sec [facility]. [facility]ITAL[facility] Comment: [facility] Transfusion Committee Guidelines: INR less than 2.0, PTT less than OR equal to 43.5 seconds, or Fibrinogen greater than or equal to 100 mg/dl indicate adequate procoagulant activity for hemostasis in patients without underlying bleeding disorders. International Normalization Ratio 1.1 0.9 - 1.1 [facility]ALE[facility] Blood specimen (specimen) 12/25/2012 3:26 PM EDT 12/25/2012 3:39 PM EDT Narrative Resulting Agency Comment Spec In Lab Haris Jarvis MD HEMATOLOGY ORDERABLE S Performing Organization Address [facility] Co de Phone Number [facility]COSMAR[facility]A [facility] * Duplex for DVT, arm, bilat (12/25/2012 3:18 PM EDT) VB Text Report Department: Vascular Surgery Lab Patient: [id number] (ANUM HENRIQUEZ) CPT Code: 49080 ICD-9: 451.84 Referring Physician: HARIS JARVIS Indication: [...] 12:04 PM EDT) Smear Review Report ? [facility] ? Provider: ?? HARIS JARVIS ? Pt. Name: ?? ANUM HENRIQUEZ N ? Acc #: ?[id number] ? Pt. ? Col Date: ?? 12/25/2012 [...] the most recent ? previous smear (see [id number]). Compared to the previous, the current ? [...] MD HEMATOLOGY ORDERABLE S Performing Organization Address City/[facility] Co de Phone Number BAR NOE * Haptoglobin (12/25/2012 12:04 PM EDT) Pathologist [facility] [place] Haptoglobin 70 30 - 200 mg/dL [facility] Comment: Haptoglobin concentrations in newborns is low to undetectable; however, adult concentrations are usually attained by 4 months of age. ??No sex-related differences for haptoglobin have been detected. Blood specimen (specimen) 12/25/2012 12:04 PM EDT 12/25/2012 12:08 PM EDT Narrative Resulting Agency Comment Spec In Lab Haris Jarvis MD CHEMISTRY ORDERABLES Performing Organization Address City/[facility]/ZIP Co de Phone Number [facility] * (ABNORMAL) Lactate Dehydrogenase (12/25/2012 12:04 PM EDT) Lactate Dehydrogenase 288(H) 110 - 220 unit/L [facility] Blood specimen (specimen) 12/25/2012 12:04 PM EDT 12/25/2012 12:08 PM EDT Narrative Resulting Agency Comment Spec In Lab Haris Jarvis MD CHEMISTRY ORDERABLES Performing Organization Address [facility] de Phone Number [facility] * Peripheral Smear Review (12/25/2012 12:04 PM EDT) Peripheral Smear Review See Comment [facility] Comment: When completed by the Pathologist, report [id number] will display under Hematopathology Reports. Blood specimen (specimen) 12/25/2012 12:04 PM EDT 12/25/2012 12:08 PM EDT Narrative Resulting Agency Comment Spec In Lab Haris Jarvis MD HEMATOLOGY ORDERABLE S Performing Organization Address [facility] Phone Number [facility] * C4 Complement (12/25/2012 12:04 PM EDT) Complement C4 17 10 - 40 mg/dL [facility] Blood specimen (specimen) 12/25/2012 12:04 PM EDT 12/25/2012 12:08 PM EDT Narrative Resulting Agency Comment Spec In Lab Haris Jarvis MD CHEMISTRY ORDERABLES Performing Organization Address [facility] de Phone Number [facility] * (ABNORMAL) C3 Complement (12/25/2012 12:04 PM EDT) Complement C3 86(L) 90 - 180 mg/dL [facility] Blood specimen (specimen) 12/25/2012 12:04 PM EDT 12/25/2012 12:08 PM EDT Narrative Resulting Agency Comment Spec In Lab Haris Jarvis MD CHEMISTRY ORDERABLES Performing Organization Address [facility] Co de Phone Number BAR [...] Text Report Department: Vascular Surgery Lab Patient: [id number] (ANUM HENRIQUEZ) CPT Code: 80110 ICD-9: 451.19 Referring Physician: HARIS JARVIS Indication: [...] MD HEMATOLOGY ORDERABLE S Performing Organization Address [facility]/ZIP Co de Phone Number [facility]ST[facility]ITAL[facility] * Phosphorus (12/25/2012 4:14 AM EDT) Phosphorus 3.4 2.5 - 4.5 mg/dL [facility] Blood specimen (specimen) 12/25/2012 4:14 AM EDT 12/25/2012 4:22 AM EDT Narrative Resulting Agency Comment Spec In Lab Fabi Bliss MD CHEMISTRY ORDERA BLERenuka Performing Organization Address [facility] de Phone Number [facility] * Magnesium (12/25/2012 4:14 AM EDT) Magnesium 0.80 0.69 - 1.07 mmol/L [facility] Blood specimen (specimen) 12/25/2012 4:14 AM EDT 12/25/2012 4:22 AM EDT Narrative Resulting Agency Comment Spec In Lab Fabi Bliss MD CHEMISTRY ORDERA BLES Performing Organization Address [facility] de Phone Number [facility] * (ABNORMAL) Lactate Dehydrogenase (12/25/2012 4:14 AM EDT) Lactate Dehydrogenase 249(H) 110 - 220 unit/L [facility] Blood specimen (specimen) 12/25/2012 4:14 AM EDT 12/25/2012 4:22 AM EDT Narrative Resulting Agency Comment Spec In Lab Fabi Bliss MD CHEMISTRY ORDERA BLERenuka Performing Organization Address [facility] Co de Phone Number [facility] * (ABNORMAL) Basic Metabolic Panel (non-fasting) (12/25/2012 4:14 AM EDT) Glucose 99 60 - 199 mg/dL [facility] Comment:Diabetes: >=200 mg/d L plus symptoms Blood Urea Nitrogen 10 8 - 18 mg/dL [facility] Creatinine 2.01(H) 0.70 - 1.20 mg/dL [facility] Comment: Please note that the pediatric reference intervals supplied above were not validated at [place]. Results from pediatric patients should be interpreted [...] Lab Luis E Trotter MD CHEMISTRY ORDERABLES [facility] * (ABNORMAL) CBC (with Diff) (12/25/2012 4:14 AM EDT) Pathologist [facility] [place] White Blood Cell 5.5 4.0 - 10.0 [...] Luis E Trotter MD HEMATOLOGY ORDERABLE S [facility] * Duplex for DVT, arm, bilat (12/24/2012 1:45 PM EDT) Pathologist [facility] [place] VB Text Report Department: Vascular Surgery Lab Patient: [id number] (ANUM HENRIQUEZ) CPT Code: 61260 ICD-9: 451.84 Referring Physician: ANKIT OHARA Indication: [...] EDT) Vancomycin, Trough 14.2 mg/L [facility] Comment: Therapeutic range for complicated infections [...] MD HEMATOLOGY ORDERABLE S Performing Organization Address City/[facility]/ZIP Co de Phone Number [facility]ERNER MILLENNIUM * Direct antiglobulin test (12/24/2012 1:00 PM EDT) Pathologist [facility] [place] SEN Poly Negative [facility]ILLENNI[facility] Blood specimen (specimen) 12/24/2012 1:00 PM EDT 12/24/2012 1:22 PM EDT Narrative Resulting Agency Comment Spec In Lab Ankit Ohara MD BLOOD BANK LAB ORDER VIKAS [facility] * (ABNORMAL) Reticulocyte Count (12/24/2012 1:00 PM EDT) Reticulocyte % 1.5 0.5 - 2.4 % [facility] MILLENNIUM Retic Abs # 0.040 0.027 - 0.095 x10(6)/mcL [facility] MILLENNI[facility] Immature Retic% 5.5 2.3 - 15.9 % [facility] Reticulated Hgb 27.9(L) 28.8 - 38.9 pg [facility]ERNER MILLENNIUM Immature Plt % 4.2 0.0 - 7.4 % [facility] MILLENNIUM Blood specimen (specimen) 12/24/2012 1:00 PM EDT 12/24/2012 1:17 PM EDT Narrative Resulting Agency Comment Spec In Lab Ankit Ohara MD HEMATOLOGY ORDERABLE S Performing Organization Address [facility] de Phone Number [facility] * Haptoglobin (12/24/2012 1:00 PM EDT) Haptoglobin 75 30 - 200 mg/dL [facility] MILLENNIUM Comment: Haptoglobin concentrations in newborns is low to undetectable; however, adult concentrations are usually attained by 4 months of age. ??No sex-related differences for haptoglobin have been detected. Blood specimen (specimen) 12/24/2012 1:00 PM EDT 12/24/2012 1:17 PM EDT Narrative Resulting Agency Comment Spec In Lab Ankit Ohara MD CHEMISTRY ORDERABLES Performing Organization Address [facility] Co de Phone Number [facility]EDAI[facility] * Bilirubin, total and direct (12/24/2012 1:00 PM EDT) Bilirubin, Total 0.4 0.2 - 1.3 mg/dL [facility] MILLENNIUM Bilirubin, Direct 0.1 0.0 - 0.3 mg/dL [facility] MILLENNIUM Blood specimen (specimen) 12/24/2012 1:00 PM EDT 12/24/2012 1:17 PM EDT Narrative Resulting Agency Comment Spec In Lab Ankit Ohara MD CHEMISTRY ORDERABLES Performing Organization Address City/[facility] Co de Phone Number BAR [...] MD CHEMISTRY TAMMYA BLERenuka Performing Organization Address [facility] de Phone Number CERELIO ARCOSENNIUM * Magnesium (12/24/2012 3:58 AM EDT) Magnesium 0.74 0.69 - 1.07 mmol/L [facility] MILL[facility]NI[facility] Blood specimen (specimen) 12/24/2012 3:58 AM EDT 12/24/2012 3:58 AM EDT Narrative Resulting Agency Comment Spec In Lab Fabi Bliss MD CHEMISTRY ORDERA BLES Performing Organization Address [facility] Co de Phone Number CERNER IS[facility]RAELENNIUM * (ABNORMAL) Lactate Dehydrogenase (12/24/2012 3:58 AM EDT) Lactate Dehydrogenase 237(H) 110 - 220 unit/L [facility] MILLENNIUM Blood specimen (specimen) 12/24/2012 3:58 AM EDT 12/24/2012 3:58 AM EDT Narrative Resulting Agency Comment Spec In Lab Fabi Bliss MD CHEMISTRY ORDERA BLERenuka Performing Organization Address City/[facility]/ZIP Co de Phone Number CERNER MILLENNIUM * (ABNORMAL) Basic Metabolic Panel (non-fasting) (12/24/2012 3:58 AM EDT) [facility] Glucose 95 60 - 199 mg/dL [facility]ERNER MILLENNIUM Comment:Diabetes: >=200 mg/d L plus symptoms Blood Urea Nitrogen 7(L) 8 - 18 mg/dL [facility] MILLENNIUM Creatinine 1.59(H) 0.70 - 1.20 mg/dL [facility] MILLENNIUM Comment: Please note that the pediatric reference intervals supplied above were not validated at [place]. Results from pediatric patients should be interpreted [...] HENRIQUEZ ?Ordered By: ANKIT OHARA ? MR#: [id number] ?LOC: ??1WST ? /Sex: ??1960 (52 years), ? Female ? PROCEDURE: Blood Culture ?SOURCE: Blood ? COLLECTED: 12/24/2012 03:45 ?FREE TEXT SOURCE: no site provided ? STARTED: 12/24/2012 07:36 ? FINAL REPORT ? Final Report ? Verified:2012 15:11 ? No growth at 5 days. ? PRELIMINARY REPORT ? Preliminary Report ? Verified:2012 15:10 ? No growth at 4 days. ? [facility] Blood specimen (specimen) 12/24/2012 3:45 AM EDT 12/24/2012 7:35 AM EDT Narrative Resulting Agency Comment Spec In Lab Ankit Ohara MD MICROBIOLOGY - BLOOD ORDERABLES [facility] * (ABNORMAL) CBC (with Diff) (12/24/2012 [...] BANK LAB ORDER VIKAS Performing Organization Address [facility] de Phone Number BAR NOE * Vancomycin, trough (12/23/2012 1:29 PM EDT) Vancomycin, Trough 9.7 mg/L C [facility]LAKITO [facility] Comment: Therapeutic range for complicated [...] Ohara MD CHEMISTRY ORDERABLES Performing Organization Address [facility] de Phone Number [facility] * Transfuse RBC (12/23/2012 10:14 AM EDT) Ankit Ohara MD NURSING TREATMENT OR DERABLES - BLOOD ADMIN * Blood culture (12/23/2012 9:15 AM EDT) Blood Culture ? Patient Name: ANUM HENRIQUEZ ?Ordered By: ANKIT OHARA ? MR#: [id number] ?LOC: ??1WST ? /Sex: ??1960 (52 years), [...] HENRIQUEZ ?Ordered By: ANKIT OHARA ? MR#: [id number] ?LOC: ??1WST ? /Sex: ??1960 (52 years), [...] MD CHEMISTRY ORDERA BLES Performing Organization Address City/[facility]/ZIP Co de Phone Number BAR PINEDAIUM * Magnesium (12/23/2012 5:45 AM EDT) Magnesium 0.71 0.69 - 1.07 mmol/L [facility] MILLENNIUM Blood specimen (specimen) 12/23/2012 5:45 AM EDT 12/23/2012 6:08 AM EDT Narrative Resulting Agency Comment Spec In Lab Fabi Bliss MD CHEMISTRY ORDERBhumi SUAREZ Performing Organization Address [facility] Co de Phone Number BAR ARCOSENNIUM * (ABNORMAL) Lactate Dehydrogenase (12/23/2012 5:45 AM EDT) Lactate Dehydrogenase 240(H) 110 - 220 unit/L [facility] MILLENNIUM Blood specimen (specimen) 12/23/2012 5:45 AM EDT 12/23/2012 6:08 AM EDT Narrative Resulting Agency Comment Spec In Lab Fabi Bliss MD CHEMISTRY ORDERA BLES Performing Organization Address [facility] de Phone Number [facility]AI[facility] * (ABNORMAL) Basic Metabolic Panel (non-fasting) (12/23/2012 5:45 AM EDT) Glucose 92 60 - 199 mg/dL [facility] MILLENNIUM Comment:Diabetes: >=200 mg/d L plus symptoms Blood Urea Nitrogen 11 8 - 18 mg/dL [facility] MILLENNIUM Creatinine 1.52(H) 0.70 - 1.20 mg/dL [facility] MILLENNIUM Comment: Please note that the pediatric reference intervals supplied above were not validated at [place]. Results from pediatric patients should be interpreted in conjunction to the patient's age, height and muscle mass. Sodium 138 135 - 145 mmol/L [facility] MILLENNIUM Potassium 4.2 3.5 - 5.0 [...] Standard Deviation 47.8(H) 35.0 - 46.0 fL [facility] RDW coefficient of variation 14.7(H) 10.9 - 14.4 % [facility] MILLST. MARY'S HOSPITALIUM Mean Platelet Volume 10.7 9.0 - 12.0 fL [facility] ISRRAELST. MARY'S HOSPITALIUM Blood specimen (specimen) 12/23/2012 5:45 AM EDT 12/23/2012 6:08 AM EDT Narrative Resulting Agency Comment Spec In Lab Luis E Trotter MD HEMATOLOGY ORDERABLE S [facility] * Urine culture Urine (12/23/2012 1:45 AM EDT) Urine Culture ? Patient Name: ANUM HENRIQUEZ ?Ordered By: ANKIT OHARA ? MR#: [id number] ?LOC: ??1WST ? /Sex: ??1960 (52 years), [...] - GENER AL ORDERABLES Performing Organization Address City/[facility]/ZIP Co de Phone Number BAR PINEDAIUM [...] Urine Dipstick Clear Clear CERNER MILLENNIUM Specific [place] Urine Automated 1.009 1.002 - 1.030 CERNER MILLENNIUM Color, Urine Dipstick Light Yellow Yellow CERNER MILLENNIUM RBC, Urine 2 0 - 4 /HPF CERNER MILLENNIUM WBC, Urine 2 0 - 5 /HPF CERNER MILLENNIUM Urine specimen (specimen) 12/23/2012 1:44 AM EDT 12/23/2012 1:58 AM EDT Narrative Resulting Agency Comment Spec In Lab Ankit Ohara MD URINE ORDERABLES Performing Organization Address City/[facility]/ZIP Co de Phone Number BAR PINEDAIUM * Helicobacter pylori Antigen Stool (12/22/2012 6:24 PM EDT) H pylori Antigen, Stool Negative Negative CERNER MILLENNIUM Comment: Test Performed by: [facility] [address] [address] Master Electrician: Jennifer Ramirez, Ph.D. Stool specimen (specimen) 12/22/2012 [...] HENRIQUEZ ?Ordered By: ANKIT OHARA ? MR#: [id number] ?LOC: ??1WST ? /Sex: ??1960 (52 years), [...] Eliza ?Ordered By: ANKIT OHARA ? MR#: [id number] ?LOC: ??1WST ? /Sex: ??1960 (52 years), [...] HENRIQUEZ ?Ordered By: ANKIT OHARA ? MR#: [id number] ?LOC: ??1WST ? /Sex: ??1960 (52 years), [...] MD HEMATOLOGY ORDERABLE S Performing Organization Address City/[facility] Co de Phone Number CERELIO PINEDAIUM * Phosphorus (12/22/2012 5:00 AM EDT) Phosphorus 2.6 2.5 - 4.5 mg/dL CERNER ISRRAELENNIUM Blood specimen (specimen) 12/22/2012 5:00 AM EDT 12/22/2012 5:08 AM EDT Narrative Resulting Agency Comment Spec In Lab Fabi Bliss MD CHEMISTRY ORDERA BLERenuka Performing Organization Address [facility] de Phone Number BAR ARCOSENNIUM * Magnesium (12/22/2012 5:00 AM EDT) Magnesium 0.71 0.69 - 1.07 mmol/L CERELIO ARCOSENNIUM Blood specimen (specimen) 12/22/2012 5:00 AM EDT 12/22/2012 5:08 AM EDT Narrative Resulting Agency Comment Spec In Lab Fabi Bliss MD CHEMISTRY ORDERA BLES Performing Organization Address [facility] Co de Phone Number BAR ARCOSENNIUM * (ABNORMAL) Lactate Dehydrogenase (12/22/2012 5:00 AM EDT) Lactate Dehydrogenase 232(H) 110 - 220 unit/L CERNER MILLENNIUM Blood specimen (specimen) 12/22/2012 5:00 AM EDT 12/22/2012 5:08 AM EDT Narrative Resulting Agency Comment Spec In Lab Fabi Bliss MD CHEMISTRY ORDERA BLERenuka Performing Organization Address [facility] Co de Phone Number CERNER MILLENNIUM * (ABNORMAL) Basic Metabolic Panel (non-fasting) (12/22/2012 5:00 AM EDT) [facility] Glucose 96 60 - 199 mg/dL CERNER MILLENNIUM Comment:Diabetes: >=200 mg/d L plus symptoms Blood Urea Nitrogen 15 8 - 18 mg/dL CERNER MILLENNIUM Creatinine 1.53(H) 0.70 - 1.20 mg/dL CERNER MILLENNIUM Comment: result rechecked-[facility] Please note that the pediatric reference intervals supplied above were not validated at [facility]. Results from pediatric patients should be interpreted in conjunction to the patient's age, height and muscle mass. result rechecked- Please note that the pediatric reference intervals supplied above were not validated at [facility]. Results from pediatric patients should be interpreted [...] - 10.5 mg/dL CERNER MILLENNIUM Comment: result rechecked-[facility] result rechecked- Corrected from 7.1 mg/dL [...] MD HEMATOLOGY ORDERABLE S Performing Organization Address [facility] Co de Phone Number BAR [...] MD HEMATOLOGY ORDERABLE S Performing Organization Address [facility] Co de Phone Number BAR NOE * (ABNORMAL) Prothrombin Time (12/22/2012 5:00 AM EDT) Prothrombin Time 17.1(H) 12.0 - 15.0 sec BAR NOE Comment: [facility] Transfusion Committee Guidelines: INR less than [...] MD HEMATOLOGY ORDERABLE S Performing Organization Address [facility] Co de Phone Number BAR NOE * Hepatitis B Surface Antigen (12/21/2012 7:35 PM EDT) Hepatitis B Surface Antigen Negative Negative [facility] Blood specimen (specimen) 12/21/2012 7:35 PM EDT 12/22/2012 8:11 AM EDT Narrative Resulting Agency Comment Spec In Lab Ankit Ohara MD CHEMISTRY ORDERABLES Performing Organization Address [facility] Co de Phone Number [facility] * Vancomycin, trough (12/21/2012 7:35 PM EDT) Vancomycin, Trough 7.0 mg/L C FLAKITO [facility] Comment: Therapeutic range for complicated [...] Ohara MD CHEMISTRY ORDERABLES Performing Organization Address [facility] Co de Phone Number [facility] * MRI brain with/WO contrast [...] HENRIQUEZ ?Ordered By: ANKIT OHARA ? MR#: [id number] ?LOC: ??1WST ? /Sex: ??1960 (52 years), ? Female ? PROCEDURE: Blood Culture ?SOURCE: Blood ? COLLECTED: 12/21/2012 15:40 ? BODY SITE: Internal Jugular ? STARTED: 12/21/2012 15:52 ?FREE TEXT SOURCE: Please draw one culture from [facility] and ? one from [facility] plasmaphoresis line today. Thank ? you. ? [...] intervals supplied above were not validated at [place]. Results from pediatric patients should be interpreted [...] Ohara MD CHEMISTRY ORDERABLES Performing Organization Address [facility] Co de Phone Number [employer] * Vitamin B6 (12/21/2012 2:30 PM EDT) Pathologist [facility] [place] Vitamin B6 (OCTOBER) 6 5 - 50 mcg/L [employer] Comment: Test Performed by: [employer] [place] [address] Master Electrician: Jennifer Ramirez, Ph.D. Blood specimen (specimen) 12/21/2012 2:30 PM EDT 12/23/2012 8:37 AM EDT Narrative Resulting Agency Comment Spec In Lab Ankit Ohara MD LAB SEND OUT ORDERAB LES Performing Organization Address [facility]/ZIP Co de Phone Number [employer] * SCAN DOC: LAB (12/21/2012 1:54 PM [...] Comment: Total Hemoglobin (in gm/dL) ?Based on [place] Hematology ranges: ?Age ?Reference Range Less than [...] Ohara MD CHEMISTRY ORDERABLES Performing Organization Address [facility] Co de Phone Number BAR PINEDAIUM * Green Tube HOLD (12/21/2012 1:40 PM EDT) Green Hold Sample in lab. BAR PINEDAIUM Blood specimen (specimen) 12/21/2012 1:40 PM EDT 12/21/2012 1:48 PM EDT Ankit Ohara MD CHEMISTRY ORDERABLES Performing Organization Address [facility]/ZIP Co de Phone Number BAR PINEDAIUM [...] ?U -- REFERENCE VALUE -- <1.0 (Negative) ??TEACHER THEATER ARTS Ab, IgG, S ?<0.2 ?U -- REFERENCE VALUE -- <1.0 (Negative) ??Scl 70 Ab, IgG, S ? <0.2 ?U -- REFERENCE VALUE -- <1.0 (Negative) ??Fozia 1 Ab, IgG, S ? <0.2 ?U -- REFERENCE VALUE -- <1.0 (Negative) Test Performed by: [facility] [place] [address] Master Electrician: Jennifer Ramirez, Ph.D.(A) CERELIO ARCOSENNIUM Blood specimen (specimen) 12/21/2012 1:40 PM EDT 12/23/2012 8:37 AM EDT Narrative Resulting Agency Comment Spec In Lab Ankit Ohara MD LAB SEND OUT ORDERAB LES Performing Organization Address [facility] Co de Phone Number BAR NOE * (ABNORMAL) Ammonia (12/21/2012 1:40 PM EDT) Ammonia <10(L) 11 - 51 mcmol/L CERELIO ARCOSENNIUM Blood specimen (specimen) 12/21/2012 1:40 PM EDT 12/21/2012 1:44 PM EDT Narrative Resulting Agency Comment Spec In Lab Ankit Ohara MD CHEMISTRY ORDERABLES Performing Organization Address [facility] de Phone Number BAR NOE * Blood culture (12/21/2012 9:21 AM EDT) Blood Culture ? Patient Name: ANUM HENRIQUEZ ?Ordered By: ANKIT OHARA ? MR#: [id number] ?LOC: ??1WST ? /Sex: ??1960 (52 years), [...] Abnormal CERNE R MILLENNIUM Schistocyte 1-5 /HPF CERELIO ARCOSENNIUM Blood specimen (specimen) 12/21/2012 6:50 AM EDT 12/21/2012 7:14 AM EDT Narrative Resulting Agency Comment Spec In Lab Luis E Trotetr MD HEMATOLOGY ORDERABLE S Performing Organization Address [facility] Co de Phone Number BAR PINEDAIUM * Phosphorus (12/21/2012 6:50 AM EDT) Phosphorus 4.1 2.5 - 4.5 mg/dL BAR PINEDAIUM Blood specimen (specimen) 12/21/2012 6:50 AM EDT 12/21/2012 7:14 AM EDT Narrative Resulting Agency Comment Spec In Lab Fabi Bliss MD CHEMISTRY ORDERA BLES Performing Organization Address [facility] Co de Phone Number BAR ARCOSENNIUM * (ABNORMAL) Magnesium (12/21/2012 6:50 AM EDT) Magnesium 0.66(L) 0.69 - 1.07 mmol/L BAR ARCOSENNIUM Blood specimen (specimen) 12/21/2012 6:50 AM EDT 12/21/2012 7:14 AM EDT Narrative Resulting Agency Comment Spec In Lab Fabi Bliss MD CHEMISTRY ORDERA BLES Performing Organization Address [facility] Co de Phone Number BAR PINEDAIUM * (ABNORMAL) Lactate Dehydrogenase (12/21/2012 6:50 AM EDT) Lactate Dehydrogenase 237(H) 110 - 220 unit/L BAR PINEDAIUM Blood specimen (specimen) 12/21/2012 6:50 AM EDT 12/21/2012 7:14 AM EDT Narrative Resulting Agency Comment Spec In Lab Fabi Bliss MD CHEMISTRY ORDERA BLES Performing Organization Address City/[facility]/ZIP Co de Phone Number BAR ARCOSENNIUM * (ABNORMAL) Basic Metabolic Panel (non-fasting) (12/21/2012 6:50 AM EDT) [facility] Glucose 102 60 - 199 mg/dL CERNER MILLENNIUM Comment:Diabetes: >=200 mg/d L plus symptoms Blood Urea Nitrogen 33(H) 8 - 18 mg/dL CERNER MILLENNIUM Creatinine 2.29(H) 0.70 - 1.20 mg/dL CERNER MILLENNIUM Comment: Please note that the pediatric reference intervals supplied above were not validated at [place]. Results from pediatric patients should be interpreted [...] BAR PINEDAIUM * (ABNORMAL) CBC (with Diff) (12/21/2012 6:50 [...] RBC (12/21/2012 12:55 AM EDT) Dispensed? Yes CERNER MILLENNIUM Blood specimen (specimen) 12/21/2012 12:55 AM EDT 12/21/2012 12:53 AM EDT Ankit Ohara MD BLOOD BANK PRODUCT O RDERABLES Performing Organization Address [facility] Co de Phone Number [facility] * Transfusion Reaction Interp (12/20/2012 6:28 PM EDT) Trans RXN Interp INTERPRETATION: Transfusion associated circulatory overload. The patient is approved to receive future transfusions. Please refer to the clinical note for a complete summary of this transfusion reaction. Jaleel Reynoso MD Transfusion Medicine Service 02/19/13 11:29 C[facility]ER [facility]ER[facility] Comment: Jaleel Reynoso, Pathologist Verified:02/19/13 Blood specimen (specimen) 12/20/2012 6:28 PM EDT 12/20/2012 6:28 PM EDT Narrative Resulting Agency Comment Spec In Lab Ankit Ohara MD BLOOD BANK LAB ORDER VIKAS Performing Organization Address [facility] de Phone Number [facility]IO [facility] * Blood culture (12/20/2012 5:00 PM EDT) Blood Culture ? Patient Name: ANUM HENRIQUEZ ?Ordered By: ANKIT OHARA ? MR#: [id number] ?LOC: ??1WST ? /Sex: ??1960 (52 years), [...] ? Staphylococcus aureus, MRSA isolated ? CERNER ISRRAELENNIUM Blood specimen (specimen) 12/20/2012 5:00 PM EDT 12/20/2012 5:14 PM EDT Narrative Resulting Agency Comment Spec In Lab Ankit Ohara MD MICROBIOLOGY - BLOOD ORDERABLES [facility] * Urine culture Clean Catch Urine (12/20/2012 4:49 PM EDT) Urine Culture ? Patient Name: ANUM HENRIQUEZ ?Ordered By: ANKIT OHARA ? MR#: [id number] ?LOC: ??1WST ? /Sex: ??1960 (52 years), ? Female ? PROCEDURE: Urine Culture ?SOURCE: U ICa ? COLLECTED: 12/20/2012 16:49 ? STARTED: 12/20/2012 [...] ?S ? Patient: ANUM HENRIQUEZ ? MR#: [id number] ? FOOTNOTES ? (1) ? Gentamicin is not appropriate for [place]-therapy. ? (2) ? MRSA, Note Nafcillin Resistance ? CERNER MILLENNIUM Urine specimen obtained via indwelling urinary catheter (specimen) 12/20/2012 4:49 PM EDT 12/20/2012 5:07 PM EDT Narrative Resulting Agency Comment Spec In Lab Ankit Ohara MD MICROBIOLOGY - GENER AL ORDERABLES Performing Organization Address [facility] Co de Phone Number CERNER MILLENNIUM * (ABNORMAL) pro-Brain Natriuretic Peptide (12/20/2012 4:10 PM EDT) Pathologist [facility] [place] NT-proBNP 2411(H) <=125 pg/mL CERNER MILLENNIUM Blood specimen (specimen) 12/20/2012 4:10 PM EDT 12/20/2012 4:16 PM EDT Narrative Resulting Agency Comment Spec In Lab Ankit Ohara MD CHEMISTRY ORDERABLES Performing Organization Address [facility]/ZIP Co de Phone Number CERNER MILLENNIUM * (ABNORMAL) Urinalysis with microscopic (12/20/2012 3:55 PM EDT) Pathologist [facility] [place] Glucose, Urine Dipstick Negative Negative mg/dL CERNER [...] Urine Dipstick Clear Clear CERNER MILLENNIUM Specific [place] Urine Automated 1.007 1.002 - 1.030 CERNER [...] HENRIQUEZ ?Ordered By: ANKIT OHARA ? MR#: [id number] ?LOC: ??1WST ? /Sex: ??1960 (52 years), [...] testing is required, contact the Microbiology ? Kelp Or Seagrass Gatherer. ? PRELIMINARY REPORT ? Preliminary Report ? Verified:12/23/19 08:30 ? Staphylococcus aureus, MRSA isolated ? Patient: ANUM HENRIQUEZ ? MR#: [id number] ? SUSCEPTIBILITY RESULTS ? Staphylococcus aureus, MRSA [...] (1) ? Gentamicin is not appropriate for [place]-therapy. ? (2) ? MRSA, Note Nafcillin Resistance [...] EKG 12 Lead (12/20/2012 2:21 PM EDT) Pathologist [facility] [place] Ventricular rate 83 BPM MUSE SYSTEM Atrial Rate 83 BPM MUSE SYSTEM P-R Interval 114 ms MUSE SYSTEM QRS Duration 70 ms MUSE SYSTEM Q-T Interval 346 ms MUSE SYSTEM QTC Calculated (Bezet) 406 ms MUSE SYSTEM Calculated P [place] 58 degrees MUSE SYSTEM Calculated R [place] 32 degrees MUSE SYSTEM Calculated T [place] 24 degrees MUSE SYSTEM INTERPRETATION Normal sinus rhythm Nonspecific T wave abnormality Abnormal ECG No previous ECGs available Confirmed by MD CEASAR, JAY ([id number]) on 12/21/2012 7:30:22 AM MUSE SYSTEM 12/20/2012 2:21 PM EDT 12/21/2012 7:30 AM EDT Ankit Ohara MD ECG ORDERABLES Performing Organization Address [facility] Phone Number MUSE SYSTEM * (ABNORMAL) Magnesium (12/20/2012 1:55 PM EDT) [facility] Magnesium 0.66(L) 0.69 - 1.07 mmol/L CERNER MILLENNIUM Blood specimen (specimen) 12/20/2012 1:55 PM EDT 12/20/2012 2:11 PM EDT Narrative Resulting Agency Comment Spec In Lab Ankit Ohara MD CHEMISTRY ORDERABLES Performing Organization Address [facility] de Phone Number CERNER MILLENNIUM * Scan, Peripheral Blood (12/20/2012 1:55 PM EDT) Pathologist [facility] [place] Plat estimate Normal CERNER MILLENNIUM RBC Morphology Abnormal CERNE R MILLENNIUM Microcyte 1-5 /HPF CERNER MILLENNIUM Schistocyte 1-5 /HPF CERNER MILLENNIUM Blood specimen (specimen) 12/20/2012 1:55 PM EDT 12/20/2012 2:03 PM EDT Narrative Resulting Agency Comment Spec In Lab Ankit Ohara MD HEMATOLOGY ORDERABLE S Performing Organization Address [facility] Co de Phone Number CERNER [...] HEMATOLOGY ORDERABLE S CERNER ISRRAELENNIUM * (ABNORMAL) APTT (12/20/2012 1:55 PM EDT) Partial Thromboplastin Time 41(H) 25 - 35 sec CERNER MILLENNIUM Comment: Recommended therapeutic PTT range for full dose unfractionated heparin is 80-114 seconds. Blood specimen (specimen) 12/20/2012 1:55 PM EDT 12/20/2012 2:03 PM EDT Narrative Resulting Agency Comment Spec In Lab Ankit Ohara MD HEMATOLOGY ORDERABLE S Performing Organization Address [facility] Co de Phone Number CERELIO PINEDAIUM * (ABNORMAL) Prothrombin Time (12/20/2012 1:55 PM EDT) Prothrombin Time 17.1(H) 12.0 - 15.0 sec CERNER MILLENNIUM Comment: [facility] Transfusion Committee Guidelines: INR less than [...] MD HEMATOLOGY ORDERABLE S Performing Organization Address [facility] de Phone Number CERELIO PINEDAIUM * [...] intervals supplied above were not validated at [place]. Results from pediatric patients should be interpreted [...] Ohara MD CHEMISTRY ORDERABLES Performing Organization Address [facility] Co de Phone Number [facility] IS[facility]RAELST. MARY[facility]ITAL[facility] * Antibody screen (12/20/2012 12:20 PM EDT) Ab Screen Interp Negative [facility] ComutoST. MARY[facility]OSPITALI[facility] Expires at [id number] on: [id number] [facility] ComutoST. MARY[facility]OSPITALIUM Blood specimen (specimen) 12/20/2012 12:20 PM EDT 12/20/2012 12:33 PM EDT Narrative Resulting Agency Comment Spec In Lab Ankit Ohara MD BLOOD BANK LAB ORDER VIKAS Performing Organization Address [facility] Co de Phone Number [facility]ITAL[facility] * ABO/Rh Typing (12/20/2012 12:20 PM EDT) ABORH Type AB Pos CERNER [facility]ITAL[facility] Blood specimen (specimen) 12/20/2012 12:20 PM EDT 12/20/2012 12:33 PM EDT Narrative Resulting Agency Comment Spec In Lab Ankit Ohara MD BLOOD BANK LAB ORDER VIKAS Performing Organization Address [facility] Co de Phone Number [facility] ComutoST. MARY[facility]OSPITALI[facility] * (ABNORMAL) H. pylori Antibody, IgG (12/20/2012 12:20 PM EDT) H pylori Ab Pos(A) Neg BAR PINEDAIUM Blood specimen (specimen) 12/20/2012 12:20 PM [...] MD HEMATOLOGY ORDERABLE S Performing Organization Address [facility] de Phone Number BAR PINEDAIUM * (ABNORMAL) Phosphorus (12/20/2012 4:50 AM EDT) Phosphorus 4.9(H) 2.5 - 4.5 mg/dL BAR ARCOSENNIUM Blood specimen (specimen) 12/20/2012 4:50 AM EDT 12/20/2012 5:08 AM EDT Narrative Resulting Agency Comment Spec In Lab Fabi Bliss MD CHEMISTRY ORDERA BLES Performing Organization Address [facility] de Phone Number BAR PINEDAIUM * Magnesium (12/20/2012 4:50 AM EDT) Magnesium 0.71 0.69 - 1.07 mmol/L CERELIO ARCOSENNIUM Blood specimen (specimen) 12/20/2012 4:50 AM EDT 12/20/2012 5:08 AM EDT Narrative Resulting Agency Comment Spec In Lab Fabi Bliss MD CHEMISTRY ORDERA BLES Performing Organization Address [facility] de Phone Number [facility] ISRRAELENNIUM * Lactate Dehydrogenase (12/20/2012 4:50 AM EDT) Lactate Dehydrogenase 220 110 - 220 unit/L CERNER MILLENNIUM Blood specimen (specimen) 12/20/2012 4:50 AM EDT 12/20/2012 5:08 AM EDT Narrative Resulting Agency Comment Spec In Lab Fabi Bliss MD CHEMISTRY ORDERA ERICK BAR PINEDAIUM * (ABNORMAL) Basic Metabolic Panel (non-fasting) (12/20/2012 4:50 AM EDT) Glucose 104 60 - 199 mg/dL CERNER MILLENNIUM Comment:Diabetes: >=200 mg/d L plus symptoms Blood Urea Nitrogen 38(H) 8 - 18 mg/dL CERNER MILLENNIUM Creatinine 2.11(H) 0.70 - 1.20 mg/dL CERNER MILLENNIUM Comment: Please note that the pediatric reference intervals supplied above were not validated at [place]. Results from pediatric patients should be interpreted [...] HEMATOLOGY ORDERABLE S BAR NOE * (ABNORMAL) Fibrinogen (12/20/2012 4:50 AM EDT) Fibrinogen 170(L) 175 - 450 mg/dL BAR NOE Blood specimen (specimen) 12/20/2012 4:50 AM EDT 12/20/2012 5:08 AM EDT Narrative Resulting Agency Comment Spec In Lab Jaleel Reynoso MD HEMATOLOGY ORDERABLE S BAR NOE * Duplex Study for DVT, Bilat legs (12/19/2012 10:03 AM EDT) VB Text Report Department: Vascular Surgery Lab Patient: [id number] (ANUM HENRIQUEZ) CPT Code: 92558 ICD-9: 451.19 Referring Physician: ANKIT OHARA Indication: [...] Ohara MD VASCULAR ORDERABLES Performing Organization Address [facility] de Phone Number [facility] * Fibrinogen (12/19/2012 7:40 AM EDT) Fibrinogen 214 175 - 450 mg/dL [facility] Blood specimen (specimen) 12/19/2012 7:40 AM EDT 12/19/2012 7:51 AM EDT Narrative Resulting Agency Comment Spec In Lab Jaleel Reynoso MD HEMATOLOGY ORDERABLE S Performing Organization Address [facility] de Phone Number [facility] * T4 (12/19/2012 3:20 AM EDT) Pathologist [facility] [place] T4 Total 5.7 5.1 - 10.8 mcg/dL [facility] Comment: Reference Range: Cord Blood: ??6.9-14.4 mcg/dL Females: ??7.2-14.2 mcg/dL Pediatric ranges: ??Interpret with caution-ranges have not been verified Blood specimen (specimen) 12/19/2012 3:20 AM EDT 12/19/2012 6:09 AM EDT Narrative Resulting Agency Comment Spec In Lab Luis E Trotter MD CHEMISTRY ORDERABLES Performing Organization Address [facility] de Phone Number [facility] * T Uptake (12/19/2012 3:20 AM EDT) Pathologist [facility] [place] T Uptake 1.03 0.80 - 1.30 ratio [facility] Comment: Tup assay is directly proportional to Thyroid binding protein concentration, thus FT4 Index = TT4/Tup. Cord Blood Reference Range: ??0.74-1.28. Blood specimen (specimen) 12/19/2012 3:20 AM EDT 12/19/2012 3:54 AM EDT Narrative Resulting Agency Comment Spec In Lab Luis E Trotter MD CHEMISTRY ORDERABLES Performing Organization Address City/State/[facility] Co de Phone Number BAR PINEDAIUM * T4, free (12/19/2012 3:20 AM EDT) Free T4 1.05 0.90 - 1.60 ng/dL CERNER ISRRAELENNIUM Blood specimen (specimen) 12/19/2012 3:20 AM EDT 12/19/2012 3:54 AM EDT Narrative Resulting Agency Comment Spec In Lab Luis E Trotter MD CHEMISTRY ORDERABLES Performing Organization Address [facility] de Phone Number BAR PINEDAIUM * (ABNORMAL) T3 (12/19/2012 3:20 AM EDT) T3 Total 58(L) 75 - 170 ng/dL BAR ARCOSENNIUM Blood specimen (specimen) 12/19/2012 3:20 AM EDT 12/19/2012 3:54 AM EDT Narrative Resulting Agency Comment Spec In Lab Luis E Trotter MD CHEMISTRY ORDERABLES Performing Organization Address [facility] Phone Number BAR PINEDAIUM * (ABNORMAL) Differential, Automated (12/19/2012 3:20 AM EDT) Neutrophil % 81.2(H) 34.0 - 71.0 % [...] MD CHEMISTRY ORDERA BLES Performing Organization Address [facility] Co de Phone Number CERNER [...] intervals supplied above were not validated at [place]. Results from pediatric patients should be interpreted [...] MD HEMATOLOGY ORDERABLE S Performing Organization Address [facility] Co de Phone Number BAR NOE * (ABNORMAL) Calcium Ionized Whole Blood, CLEO (12/18/2012 9:05 PM EDT) pH, Venous 7.44(H) 7.32 - 7.42 [facility] MILLST. MARY'S HOSPITALIUM ICa Whole Blood 1.20 1.15 - [...] Ohara MD CHEMISTRY ORDERABLES Performing Organization Address [facility] [facility] Co de Phone Number BAR NOE * UPPER GI ENDOSCOPY (12/18/2012 4:09 PM EDT) Pathologist [facility] [place] UPPER GI ENDOSCOPY [facility] Endoscopy Patient Name: Anum Henriquez ? Procedure Date: 12/18/2012 4:09 PM ? Date of : 1960 ? Age: 52 ? Order #: [id number] ? Procedure: ? Upper GI endoscopy Indications: ? Melena Providers: ? Alda Sullivan MD, Tonny Nguyen, DRU, ? Chikis Swanson, Senior Planner Referring : ?Bakari Costello Medicines: ? Midazolam [...] GENERAL SURGICAL ORD ERABLES Performing Organization Address City/[facility] Co de Phone Number PROVATION * (ABNORMAL) [...] Ohara MD CHEMISTRY ORDERABLES Performing Organization Address [facility] de Phone Number CERNER MILLENNIUM * [...] Reynoso MD CHEMISTRY ORDERABLES Performing Organization Address City/State/[facility] Co de Phone Number CERNER [...] MD HEMATOLOGY ORDERABLE S BAR PINEDAIUM * Scan, Peripheral Blood (12/18/2012 4:25 AM EDT) Plat estimate Decreased BAR PINEDAIUM RBC Morphology Normal CERNE R MILLENNIUM Blood specimen (specimen) 12/18/2012 4:25 AM EDT 12/18/2012 4:36 AM EDT Narrative Resulting Agency Comment Spec In Lab Luis E Trotter MD HEMATOLOGY ORDERABLE S BAR PINEDAIUM * Phosphorus (12/18/2012 4:25 AM EDT) Phosphorus 4.4 2.5 - 4.5 mg/dL [facility] Blood specimen (specimen) 12/18/2012 4:25 AM EDT 12/18/2012 4:36 AM EDT Narrative Resulting Agency Comment Spec In Lab Fabi Bliss MD CHEMISTRY ORDERA BLES Performing Organization Address [facility] Co de Phone Number BAR PINEDAIUM * Magnesium (12/18/2012 4:25 AM EDT) Magnesium 0.83 0.69 - 1.07 mmol/L [facility] Blood specimen (specimen) 12/18/2012 4:25 AM EDT 12/18/2012 4:36 AM EDT Narrative Resulting Agency Comment Spec In Lab Fabi Bliss MD CHEMISTRY ORDERA BLES Performing Organization Address City/[facility]/ZIP Co de Phone Number BAR PINEDAIUM * (ABNORMAL) Lactate Dehydrogenase (12/18/2012 4:25 AM EDT) Lactate Dehydrogenase 306(H) 110 - 220 unit/L [facility] Blood specimen (specimen) 12/18/2012 4:25 AM [...] intervals supplied above were not validated at [place]. Results from pediatric patients should be interpreted [...] Red Hold (12/17/2012 6:49 PM EDT) Pathologist [facility] [place] Red Hold Sample in lab. BAR NOE Blood specimen (specimen) 12/17/2012 6:49 PM EDT 12/17/2012 7:06 PM EDT Fabi Bliss MD CHEMISTRY ORDERA BLES BAR NOE * Hepatitis C Antibody (12/17/2012 6:49 PM EDT) Pathologist [facility] [place] Hepatitis C Antibody Negative Negative BAR [facility] Blood specimen (specimen) 12/17/2012 6:49 PM EDT 12/17/2012 7:03 PM EDT Narrative Resulting Agency Comment Spec In Lab Fabi Bliss MD CHEMISTRY ORDERA BLES BAR NOE * KIANA (12/17/2012 6:49 PM EDT) KIANA Neg Neg [facility] Blood specimen (specimen) 12/17/2012 6:49 PM EDT 12/18/2012 8:09 AM EDT Narrative Resulting Agency Comment Spec In Lab Fabi Bliss MD LAB SEND OUT ORD ERABLES [facility] * Transfuse RBC (12/17/2012 5:07 PM EDT) Fabi Bliss MD NURSING TREATMEN T ORDERABLES - BLOOD ADMIN * Smear Review Report (12/17/2012 2:24 PM EDT) Smear Review Report ? [facility] ? Provider: ?? FABI BLISS Pt. Name: ?? ANUM HENRIQUEZ ?M ? Acc #: ?[id number] ? Pt. ? Col Date: ?? 12/17/2012 [...] noted in the previous smear; [id number]. [facility] 12/17/2012 2:24 PM EDT Fabi Bliss MD HEMATOLOGY ORDER VIKAS Performing Organization Address [facility] de Phone Number [facility] * Peripheral Smear Review (12/17/2012 1:00 PM EDT) Pathologist [facility] [place] Peripheral Smear Review See Comment [facility] Comment: When completed by the Pathologist, report [id number] will display under Hematopathology Reports. Blood specimen (specimen) 12/17/2012 1:00 PM EDT 12/17/2012 1:10 PM EDT Narrative Resulting Agency Comment Spec In Lab Fabi Bliss MD HEMATOLOGY ORDER VIKAS Performing Organization Address [facility] Co de Phone Number [facility] * (ABNORMAL) Differential, Automated (12/17/2012 1:00 PM EDT) Pathologist [facility] [place] Neutrophil % 74.4(H) 34.0 - 71.0 % [...] EDT Fabi Bliss MD HEMATOLOGY ORDER VIKAS [facility] * (ABNORMAL) CBC (with Diff) (12/17/2012 1:00 [...] E Trotter MD HEMATOLOGY ORDERABLE S CERELIO MILLENNIUM * (ABNORMAL) Differential, Automated (12/17/2012 4:00 [...] HEMATOLOGY ORDERABLE S [facility] * (ABNORMAL) Lactate Dehydrogenase (12/17/2012 4:00 [...] intervals supplied above were not validated at [place]. Results from pediatric patients should be interpreted [...] Trotter MD CHEMISTRY ORDERABLES Performing Organization Address City/[facility]/ZIP Co de Phone Number CERELIO MILLENNIUM [...] MD HEMATOLOGY ORDERABLE S CERNER MILLENNIUM * Shiga Toxin Detection (12/17/2012 3:32 AM EDT) Shiga Toxin Assay ? Patient Name: ANUM HENRIQUEZ ?Ordered By: FABI BLISS ? MR#: [id number] ?LOC: ??1WST ? /Sex: ??1960 (52 years), ? Female ? PROCEDURE: Shiga Toxin Assay ?SOURCE: Stool ? COLLECTED: 12/17/2012 03:32 ?FREE TEXT SOURCE: Clinical TTP-HUS. Please test for E coli O157: ? STARTED: 12/17/2012 14:48 ? H7 / shiga toxin. ? FINAL REPORT ? Final Report ? Verified:12/09 15:59 ? Test not performed due to no enteric growth. ? __ [facility] Stool specimen (specimen) 12/17/2012 3:32 AM EDT 12/17/2012 2:48 PM EDT Comment:CLINICAL TTP-HUS. PL EASE TEST FOR E COLI O157:H7 / SHIGA TOXIN. Narrative Resulting Agency Comment Spec In Lab Fabi Bliss MD MICROBIOLOGY - G ENERAL ORDERABLES [facility] * Campylobacter Antigen (12/17/2012 3:32 AM EDT) Campylobacter Ag ? Patient Name: ANUM HENRIQUEZ ?Ordered By: FABI BLISS ? MR#: [id number] ?LOC: ??1WST ? /Sex: ??1960 (52 years), ? Female ? PROCEDURE: Campylobacter Antigen ?SOURCE: Stool ? COLLECTED: 12/17/2012 03:32 ?FREE TEXT SOURCE: Clinical TTP-HUS. Please test for E coli O157: ? STARTED: 12/17/2012 14:49 ? H7 / shiga toxin. ? FINAL REPORT ? Final Report ? Verified: 013 13:37 ? Immunoassay Negative for Campylobacter Antigen ? [facility] Stool specimen (specimen) 12/17/2012 3:32 AM EDT 12/17/2012 2:49 PM EDT Comment:CLINICAL TTP-HUS. PL EASE TEST FOR E COLI O157:H7 / SHIGA TOXIN. Narrative Resulting Agency Comment Spec In Lab Fabi Bliss MD MICROBIOLOGY - G ENERAL ORDERABLES [facility] * Stool culture (12/17/2012 3:32 AM EDT) Stool Culture ? Patient Name: ANUM HENRIQUEZ ?Ordered By: FABI BLISS ? MR#: [id number] ?LOC: ??1WST ? /Sex: ??1960 (52 years), [...] - G ENERAL ORDERABLES Performing Organization Address [facility] Co de Phone Number [facility] * Cryptosporidium Oocyst Antigen (12/17/2012 3:32 AM EDT) Cryptosporidium Antigen Negative Negative [facility] Stool specimen (specimen) 12/17/2012 3:32 AM EDT 12/17/2012 2:49 PM EDT Narrative Resulting Agency Comment Spec In Lab Luis E Trotter MD MICROBIOLOGY - GENER AL ORDERABLES Performing Organization Address [facility] de Phone Number [facility] * Giardia antigen (12/17/2012 3:32 AM EDT) Giardia Antigen Negative Negative [facility] Comment:Examination for othe r intestinal parasites requires foreign travel history. Stool specimen (specimen) 12/17/2012 3:32 AM EDT 12/17/2012 2:49 PM EDT Narrative Resulting Agency Comment Spec In Lab Luis E Trotter MD MICROBIOLOGY - GENER AL ORDERABLES Performing Organization Address [facility] de Phone Number [facility] * MRI brain WO contrast (12/16/2012 9:02 PM EDT) Anatomical Region Laterality Modality Head Magnetic Resonan ce 12/16/2012 9:02 PM EDT Narrative 12/17/2012 8:23 AM EDT Examination MR Brain without Contrast Clinical History Pt with TTP-HUS, anemia, thrombocytopenia. New AMS, may be 2/2 TTP but want to r/o BLENDING MACHINE FEEDER bleed, stroke, or any e/o BLENDING MACHINE FEEDER vasculitis Comparison None Technique We obtained multi [...] may be 2/2 TTP butwant to r/o BLENDING MACHINE FEEDER bleed, stroke, or any e/o BLENDING MACHINE FEEDER vasculitis Comparison None Technique We obtained multi [...] PM EDT) HIV 1/2 Ab Negative [facility] Blood specimen (specimen) 12/16/2012 6:15 PM EDT 12/16/2012 6:20 PM EDT Narrative Resulting Agency Comment Spec In Lab Fabi Bliss MD CHEMISTRY ORDERA BLES [facility] * Place PICC Line: Contact Vascular Access Page [phone] (12/16/2012 3:36 PM EDT) Narrative Edvin Brian [...] to the planned procedure. Hand Hygiene: The pocket builder did perform hand hygiene prior to line insertion. Catheter type: PICC Lot number: [id number] Procedure Technique: Skin was prepped with chlorhexidine. [...] to the planned procedure. Hand Hygiene: The pocket builder did perform hand hygiene prior to line insertion. Catheter type: PICC Lot number: [id number] Procedure Technique: Skin was prepped with chlorhexidine. [...] Complement C4 4(L) 10 - 40 mg/dL [facility] Blood specimen (specimen) 12/16/2012 2:00 PM EDT 12/16/2012 2:15 PM EDT Narrative Resulting Agency Comment Spec In Lab Fabi Bliss MD CHEMISTRY ORDERA BLERenuka Performing Organization Address [facility] Co de Phone Number [facility] * (ABNORMAL) C3 Complement (12/16/2012 2:00 PM EDT) Complement C3 66(L) 90 - 180 mg/dL [facility] Blood specimen (specimen) 12/16/2012 2:00 PM EDT 12/16/2012 2:15 PM EDT Narrative Resulting Agency Comment Spec In Lab Fabi Bliss MD CHEMISTRY MARYANN BLERenuka Performing Organization Address [facility] de Phone Number [facility] * (ABNORMAL) C2 Complement (12/16/2012 2:00 PM EDT) C2 Complement <1.3(L) 1.6 - 3.5 mg/dL [facility] Comment: Low levels of C2 indicate increased catabolism (as in immune complex disease) or decreased synthesis. Test performed by [employer] [facility], [id number] [place] [address] Blood specimen (specimen) 12/16/2012 2:00 PM EDT 12/16/2012 2:54 PM EDT Narrative Resulting Agency Comment Spec In Lab Fabi Bliss MD CHEMISTRY MARYANN SUAREZ Performing Organization Address [facility] Co de Phone Number [facility] * C1 Esterase Inhibitor, Functional (12/16/2012 2:00 PM EDT) C1 Scarlett Inh Qnt (OCTOBER) 90 % normal [facility] Comment: -- REFERENCE VALUE -- >67 (Normal) 41-67 (Equivocal) <41 (Abnormal) Test Performed by: [facility] - [address] [address] Master Electrician: Tulio Luna III, M.D. Blood specimen (specimen) [...] MD IMMUNOLOGY ORDER VIKAS Performing Organization Address City/[facility]/ZIP Co de Phone Number BAR ARCOSENNI[facility] * Myeloperoxidase Ab (12/16/2012 2:00 PM EDT) Myeloperoxidase Antibody 2.8 <=20.0 unit(s) CERNER MILLENNIUM Blood specimen (specimen) 12/16/2012 2:00 PM EDT 12/17/2012 8:07 AM EDT Narrative Resulting Agency Comment Spec In Lab Fabi Bliss MD IMMUNOLOGY ORDER VIKAS Performing Organization Address City/[facility]/ZIP Co de Phone Number BAR PINEDAIUM * Cytoplasmic Neutrophilic Ab (12/16/2012 2:00 PM EDT) C-Anca (OCTOBER) Negative Negative CERNER MILLENNIUM Comment: Test Performed by: [place] [address] Master Electrician: Tulio Luna III, M.D. P-Anca (OCTOBER) Negative Negative CERNER MILLENNIUM Comment: Negative for cANCA and pANCA patterns by immunofluorescence. Test Performed by: [place] [address] Master Electrician: Tulio Luna III, M.D. Blood specimen (specimen) 12/16/2012 2:00 PM EDT 12/16/2012 3:13 PM EDT Narrative Resulting Agency Comment Spec In Lab Fabi Bliss MD LAB SEND OUT ORD ERABLES CERNER ISRRAELENNIUM * (ABNORMAL) T4, free (12/16/2012 2:00 PM EDT) Free T4 0.88(L) 0.90 - 1.60 ng/dL CERNER MILLENNIUM Blood specimen (specimen) 12/16/2012 2:00 PM EDT 12/16/2012 2:15 PM EDT Narrative Resulting Agency Comment Spec In Lab Fabi Bliss MD CHEMISTRY ORDERA BLES Performing Organization Address [facility] Co de Phone Number CERNER ISRRAELENNIUM * (ABNORMAL) T3, free (12/16/2012 2:00 PM EDT) Free T3 1.6(L) 2.0 - 3.5 pg/mL CERNER MILLENNIUM Comment: Test Performed by: [facility] [place] [address] Master Electrician: Jennifer Ramirez, Ph.D. Blood specimen (specimen) 12/16/2012 2:00 PM EDT 12/16/2012 3:13 PM EDT Narrative Resulting Agency Comment Spec In Lab Fabi Bliss MD CHEMISTRY ORDERA BLES Performing Organization Address [facility]/ZIP Co de Phone Number CERELIO PINEDAIUM * TSH (12/16/2012 2:00 PM EDT) Thyroid Stimulating Hormone 3.68 0.27 - 4.20 mcIU/mL CERNER MILLENNIUM Blood specimen (specimen) 12/16/2012 2:00 PM EDT 12/16/2012 2:15 PM EDT Narrative Resulting Agency Comment Spec In Lab Fabi Bliss MD CHEMISTRY ORDERA BLES CERNER MILLENNIUM * (ABNORMAL) Urinalysis with microscopic [...] Urine Dipstick Hazy(A) Clear CERNER MILLENNIUM Specific [place] Urine Automated 1.013 1.002 - 1.030 CERNER [...] 0 - 30 unit/L CERNER MILLENNIUM Comment:result rechecked-[facility] Alkaline Phosphatase 32(L) 40 - 104 unit/L CERNER MILLENNIUM Bilirubin, Total 0.8 0.2 - 1.3 mg/dL CERNER MILLENNIUM Bilirubin, Direct 0.2 0.0 - 0.3 mg/dL CERNER MILLENNIUM Blood specimen (specimen) 12/16/2012 4:40 AM EDT 12/16/2012 4:47 AM EDT Narrative Resulting Agency Comment Spec In Lab Luis E Trotter MD CHEMISTRY ORDERABLES Performing Organization Address [facility]/ZIP Co de Phone Number CERNER MILLENNIUM * (ABNORMAL) Lactate Dehydrogenase (12/16/2012 4:40 AM EDT) Lactate Dehydrogenase 455(H) 110 - 220 unit/L CERNER MILLENNIUM Blood specimen (specimen) 12/16/2012 4:40 AM EDT 12/16/2012 4:47 AM EDT Narrative Resulting Agency Comment Spec In Lab Fabi Bliss MD CHEMISTRY ORDERA BLES Performing Organization Address [facility] Co de Phone Number CERNER [...] intervals supplied above were not validated at [place]. Results from pediatric patients should be interpreted [...] Lab Luis E Trotter MD CHEMISTRY ORDERABLES [facility] * (ABNORMAL) CBC (with Diff) (12/16/2012 4:40 [...] AM EDT) C Diff Interp Negative Negative [facility] Stool specimen (specimen) 12/15/2012 7:42 AM EDT 12/15/2012 8:15 AM EDT Narrative Resulting Agency Comment Spec In Lab Luis E Trotter MD MICROBIOLOGY - GENER AL ORDERABLES Performing Organization Address [facility] de Phone Number [facility] * (ABNORMAL) Fecal Lactoferrin (12/15/2012 7:42 AM EDT) Fecal Lactoferrin Positive( A) Negative [facility] Stool specimen (specimen) 12/15/2012 7:42 AM EDT 12/15/2012 8:15 AM EDT Narrative Resulting Agency Comment Spec In Lab Luis E Trotter MD MICROBIOLOGY - GENER AL ORDERABLES Performing Organization Address [facility] de Phone Number [facility] * Phosphorus (12/15/2012 3:50 AM EDT) Phosphorus 3.1 2.5 - 4.5 mg/dL [facility] Comment:Result rechecked. Blood specimen (specimen) 12/15/2012 3:50 AM EDT 12/15/2012 10:26 AM EDT Narrative Resulting Agency Comment Spec In Lab Luis E Trotter MD CHEMISTRY ORDERABLES Performing Organization Address [facility] de Phone Number [facility] * Magnesium (12/15/2012 3:50 AM EDT) Magnesium 0.72 0.69 - 1.07 mmol/L [facility] Blood specimen (specimen) 12/15/2012 3:50 AM EDT 12/15/2012 10:26 AM EDT Narrative Resulting Agency Comment Spec In Lab Luis E Trotter MD CHEMISTRY ORDERABLES CERNER MILLENNIUM * (ABNORMAL) Lactate Dehydrogenase (12/15/2012 3:50 AM EDT) Lactate Dehydrogenase 417(H) 110 - 220 unit/L CERNER MILLENNIUM Blood specimen (specimen) 12/15/2012 3:50 AM EDT 12/15/2012 4:01 AM EDT Narrative Resulting Agency Comment Spec In Lab Luis E Trotter MD CHEMISTRY ORDERABLES CERNER MILLENNIUM * (ABNORMAL) Differential, Automated (12/15/2012 3:50 AM EDT) Pathologist [facility] [place] Neutrophil % 68.6 34.0 - 71.0 % [...] intervals supplied above were not validated at [place]. Results from pediatric patients should be interpreted [...] Addendum Begins VIR PROCEDURE NOTE ?? ACC#: [id number] ?? PROCEDURE: Non-tunneled right internal jugular triple [...] Addendum Begins VIR PROCEDURE NOTE ?? ACC#: [id number] ?? PROCEDURE: Non-tunneled right internal jugular triple [...] Addendum Begins VIR PROCEDURE NOTE ?? ACC#: [id number] ?? PROCEDURE: Non-tunneled right internal jugular triple [...] Addendum Begins VIR PROCEDURE NOTE ?? ACC#: [id number] ?? PROCEDURE: Non-tunneled right internal jugular triple [...] AM EDT VIR PROCEDURE NOTE ?? ACC#: [id number] ?? PROCEDURE: Non-tunneled right internal jugular triple [...] MD - 12/20/2012 VIR PROCEDURE NOTE ACC#: [id number] PROCEDURE: Non-tunneled right internal jugular triple lumen [...] Bliss MD IMG IR ORDERABLE S * [id number] Activity (12/14/2012 2:02 PM EDT) [id number] Activity (OCTOBER) 94 >/=70 % BAR ISRRAEL[facility]KHI Comment: For research use only. Test Performed by: [place] [address] Master Electrician: Tulio Luna III, M.D. [id number] Interpretation (OCTOBER) SEE COMMENTS BAR NOE Comment: No laboratory evidence of [id number] deficiency. ??A normal [id number] activity level does not completely exclude a clinical diagnosis of thrombotic thrombocytopenic purpura (TTP). ??Recommend clinical correlation. Test Performed by: [place] [address] Master Electrician: Tulio Luna III, M.D. Blood specimen (specimen) 12/14/2012 2:02 PM EDT 12/16/2012 8:36 AM EDT Narrative Resulting Agency Comment Spec In Lab Yudith Raya DO LAB SEND OUT OR DERABLES [facility]EL[facility] * Proteinase-3 Antibody (12/14/2012 12:03 PM EDT) Proteinase 3 Antibody 3.5 <=20.0 unit(s) BAR [facility] Blood specimen (specimen) 12/14/2012 12:03 PM EDT 12/16/2012 8:26 AM EDT Narrative Resulting Agency Comment Spec In Lab Luis E Trotter MD IMMUNOLOGY ORDERABLE S Performing Organization Address [facility] de Phone Number BAR PINEDAIUM * Myeloperoxidase Ab (12/14/2012 12:03 PM EDT) Myeloperoxidase Antibody 3.0 <=20.0 unit(s) CERNER MILLENNIUM Blood specimen (specimen) 12/14/2012 12:03 PM EDT 12/16/2012 8:26 AM EDT Narrative Resulting Agency Comment Spec In Lab Luis E Trotter MD IMMUNOLOGY ORDERABLE S Performing Organization Address [facility] Phone Number CERELIO ARCOSENNIUM * Cytoplasmic Neutrophilic Ab (12/14/2012 12:03 PM EDT) C-Anca (MAY) Negative Negative CERNER MILLENNIUM Comment: Test Performed by: [facility] [place] [address] Master Electrician: Tulio Luna III, M.D. P-Anca (MAY) Negative Negative CERNER MILLENNIUM Comment: Negative for cANCA and pANCA patterns by immunofluorescence. Test Performed by: [place] [address] Master Electrician: Tulio Luna III, M.D. Blood specimen (specimen) 12/14/2012 12:03 PM EDT 12/16/2012 8:13 AM EDT Narrative Resulting Agency Comment Spec In Lab Luis E Trotter MD LAB SEND OUT ORDERAB LES Performing Organization Address [facility] Co de Phone Number BAR PINEDAIUM * Antibody screen (12/14/2012 9:47 AM EDT) Ab Screen Interp Negative CERNER MILLENNIUM Expires at [id number] on: [id number] CERNER MILLENNIUM Blood specimen (specimen) 12/14/2012 9:47 AM EDT 12/14/2012 9:53 AM EDT Narrative Resulting Agency Comment Spec In Lab Luis E Trotter MD BLOOD BANK LAB ORDER VIKAS Performing Organization Address [facility] Co de Phone Number BAR PINEDAIUM * ABO/Rh Typing (12/14/2012 9:47 AM EDT) ABORH Type AB Pos CERELIO ARCOSENNIUM Blood specimen (specimen) 12/14/2012 9:47 AM EDT 12/14/2012 9:53 AM EDT Narrative Resulting Agency Comment Spec In Lab Luis E Trotter MD BLOOD BANK LAB ORDER VIKAS Performing Organization Address [facility] Co de Phone Number BAR [...] MD HEMATOLOGY ORDERABLE S BAR PINEDAIUM * Direct antiglobulin test (12/14/2012 9:47 AM EDT) SEN Poly Negative CERELIO ARCOSENNIUM Blood specimen (specimen) 12/14/2012 9:47 AM EDT 12/14/2012 9:53 AM EDT Narrative Resulting Agency Comment Spec In Lab Luis E Trotter MD BLOOD BANK LAB ORDER VIKAS BAR NOE * Smear Review Report (12/14/2012 5:49 AM EDT) Smear Review Report ? [facility] ? Provider: ?? LUIS E TROTTER ?Pt. Name: ?? ANUM HENRIQUEZ ? Acc #: ?[id number] ? Pt. ? Col Date: ?? 12/14/2012 [...] in rendering the final pathologic ? diagnosis. CERNER MILLENNIUM 12/14/2012 5:49 AM EDT Luis E Trotter MD HEMATOLOGY ORDERABLE S CERELIO MILLENNIUM * (ABNORMAL) Differential, Automated (12/14/2012 5:49 [...] S BAR [facility]COS[facility] * Scan, Peripheral Blood (12/14/2012 5:49 AM EDT) Plat estimate Decreased CERNER MILLENNIUM RBC Morphology Abnormal CERNE R MILLENNIUM Ovalocytes 1-5 /HPF CERNER MILLENNIUM Schistocyte 1-5 /HPF CERNER MILLENNIUM [place] Cells 6-10 /HPF CERNER MILLENNIUM Blood specimen (specimen) 12/14/2012 5:49 AM EDT 12/14/2012 5:58 AM EDT Narrative Resulting Agency Comment Spec In Lab Luis E Trotter MD HEMATOLOGY ORDERABLE S CERELIO ARCOSENNIUM * (ABNORMAL) Basic Metabolic Panel (non-fasting) (12/14/2012 5:49 AM EDT) Glucose 113 60 - 199 mg/dL CERNER MILLENNIUM Comment:Diabetes: >=200 mg/d L plus symptoms Blood Urea Nitrogen 18 8 - 18 mg/dL CERNER MILLENNIUM Creatinine 1.74(H) 0.70 - 1.20 mg/dL CERNER MILLENNIUM Comment: Please note that the pediatric reference intervals supplied above were not validated at [place]. Results from pediatric patients should be interpreted [...] MD HEMATOLOGY ORDERABLE S Performing Organization Address City/[facility]/ZIP Co de Phone Number [facility] * Peripheral Smear Review (12/14/2012 5:49 AM EDT) Peripheral Smear Review See Comment [facility] Comment: When completed by the Pathologist, report [id number] will display under Hematopathology Reports. Blood specimen (specimen) 12/14/2012 5:49 AM EDT 12/14/2012 5:58 AM EDT Narrative Resulting Agency Comment Spec In Lab Luis E Trotter MD HEMATOLOGY ORDERABLE S Performing Organization Address [facility] de Phone Number [facility] * (ABNORMAL) Lactate Dehydrogenase (12/14/2012 2:16 AM EDT) Lactate Dehydrogenase 672(H) 110 - 220 unit/L [facility] Blood specimen (specimen) 12/14/2012 2:16 AM EDT 12/14/2012 2:41 AM EDT Narrative Resulting Agency Comment Spec In Lab Luis E Trotter MD CHEMISTRY ORDERABLES Performing Organization Address [facility] de Phone Number [facility] * Proteinase-3 Antibody (12/13/2012 10:42 PM EDT) Proteinase 3 Antibody 3.7 <=20.0 unit(s) [facility] Blood specimen (specimen) 12/13/2012 10:42 PM EDT 12/17/2012 8:07 AM EDT Narrative Resulting Agency Comment Spec In Lab Luis E Trotter MD IMMUNOLOGY ORDERABLE S Performing Organization Address [facility] Co de Phone Number [facility] * Myeloperoxidase Ab (12/13/2012 10:42 PM EDT) Myeloperoxidase Antibody 3.1 <=20.0 unit(s) [facility] Blood specimen (specimen) 12/13/2012 10:42 PM EDT 12/17/2012 8:07 AM EDT Narrative Resulting Agency Comment Spec In Lab Luis E Trotter MD IMMUNOLOGY ORDERABLE S Performing Organization Address [facility] Co de Phone Number [facility] * Cytoplasmic Neutrophilic Ab (12/13/2012 10:42 PM EDT) C-Anca (OCTOBER) Negative Negative [facility] Comment: Test Performed by: [place] [address] Master Electrician: Tulio Luna III, M.D. P-Anca (OCTOBER) Negative Negative [facility] Comment: Negative for cANCA and pANCA patterns by immunofluorescence. Test Performed by: [place] [address] Master Electrician: Tulio Luna III, M.D. Blood specimen (specimen) 12/13/2012 10:42 PM EDT 12/17/2012 8:14 AM EDT Narrative Resulting Agency Comment Spec In Lab Luis E Trotter MD LAB SEND OUT ORDERAB LES Performing Organization Address [facility] de Phone Number [facility] * Thyroid Stimulating Immunoglobulin (12/13/2012 10:42 PM EDT) TSI-Gonzáles <1.0 <=1.3 TSI index [facility] Comment: Test Performed by: [place] [address] Master Electrician: Tulio Luna III, M.D. Blood specimen (specimen) 12/13/2012 10:42 PM EDT 12/17/2012 8:14 AM EDT Narrative Resulting Agency Comment Spec In Lab Luis E Trotter MD IMMUNOLOGY ORDERABLE S Performing Organization Address City/[facility]/ZIP Co de Phone Number [facility] * C1 Esterase Inhibitor, Functional (12/13/2012 10:42 PM EDT) C1 Scarlett Inh Qnt (MAY) >90 % normal [facility] Comment: -- REFERENCE VALUE -- >67 (Normal) 41-67 (Equivocal) <41 (Abnormal) Test Performed by: [address] [address] Master Electrician: Tulio Luna III, M.D. Blood specimen (specimen) 12/13/2012 10:42 PM EDT 12/17/2012 8:25 AM EDT Narrative Resulting Agency Comment Spec In Lab Luis E Trotter MD LAB SEND OUT ORDERAB LES Performing Organization Address [facility] Co de Phone Number [facility] * C4 Complement (12/13/2012 10:42 PM EDT) Complement C4 10 10 - 40 mg/dL [facility] Blood specimen (specimen) 12/13/2012 10:42 PM EDT 12/13/2012 10:54 PM EDT Narrative Resulting Agency Comment Spec In Lab Luis E Trotter MD CHEMISTRY ORDERABLES Performing Organization Address [facility] de Phone Number [facility] * (ABNORMAL) C3 Complement (12/13/2012 10:42 PM EDT) Complement C3 64(L) 90 - 180 mg/dL [facility] Blood specimen (specimen) 12/13/2012 10:42 PM EDT 12/13/2012 10:54 PM EDT Narrative Resulting Agency Comment Spec In Lab Luis E Trotter MD CHEMISTRY ORDERABLES Performing Organization Address [facility] de Phone Number [facility] * Haptoglobin (12/13/2012 10:42 PM EDT) Haptoglobin <10 30 - 200 mg/dL [facility] Comment: Haptoglobin concentrations in newborns is low [...] r/o obstruction or free air Comparison 12/14/2019 [id number] hours. Technique Findings There is no interval [...] r/o obstruction or free air Comparison 12/14/2019 [id number] hours. Technique Findings There is no interval [...] Urine Dipstick Clear Clear [facility] Specific [place] Urine Automated 1.014 1.002 - 1.030 CERNER [...] Panel (non-fasting) (12/13/2012 10:00 PM EDT) Glucose 111 60 - 199 mg/dL [facility] Comment:Diabetes: >=200 mg/d L plus symptoms Blood Urea Nitrogen 14 8 - 18 mg/dL [facility] Creatinine 1.45(H) 0.70 - 1.20 mg/dL [facility] Comment: Please note that the pediatric reference intervals supplied above were not validated at [place]. Results from pediatric patients should be interpreted [...] MD HEMATOLOGY ORDERABLE S [facility] * Lactate Dehydrogenase (12/13/2012 10:00 PM EDT) Lactate Dehydrogenase Not Perf 110 - 220 unit/L [facility] Comment: Unable to quantitate due to sample hemolysis. ??Sample redraw suggested. called to gianna bowens at 12/13/12 23:00 by lani Blood specimen (specimen) 12/13/2012 10:00 PM EDT 12/13/2012 10:04 PM EDT Narrative Resulting Agency Comment Spec In Lab Luis E Trotter MD CHEMISTRY ORDERABLES [facility] * Thrombin time (12/13/2012 10:00 PM EDT) Thrombin Time 19 15 - 20 sec [facility] Blood specimen (specimen) 12/13/2012 10:00 PM EDT 12/13/2012 10:04 PM EDT Narrative Resulting Agency Comment Spec In Lab Luis E Trotter MD HEMATOLOGY ORDERABLE S Performing Organization Address [facility] Co de Phone Number [facility] * Fibrinogen (12/13/2012 10:00 PM EDT) Fibrinogen 425 175 - 450 mg/dL [facility] Blood specimen (specimen) 12/13/2012 10:00 PM EDT 12/13/2012 10:04 PM EDT Narrative Resulting Agency Comment Spec In Lab Luis E Trotter MD HEMATOLOGY ORDERABLE S Performing Organization Address [facility] de Phone Number [facility] * APTT (12/13/2012 10:00 PM EDT) Partial Thromboplastin Time 27 25 - 35 sec [facility] Comment: Recommended therapeutic PTT range for full dose unfractionated heparin is 80-114 seconds. Blood specimen (specimen) 12/13/2012 10:00 PM EDT 12/13/2012 10:04 PM EDT Narrative Resulting Agency Comment Spec In Lab Luis E Trotter MD HEMATOLOGY ORDERABLE S Performing Organization Address [facility] Phone Number [facility] * (ABNORMAL) Prothrombin Time (12/13/2012 10:00 PM EDT) Prothrombin Time 16.5(H) 12.0 - 15.0 sec [facility] Comment: [facility] Transfusion Committee Guidelines: INR less than 2.0, PTT less than OR equal to 43.5 seconds, or Fibrinogen greater than or equal to 100 mg/dl indicate adequate procoagulant activity for hemostasis in patients without underlying bleeding disorders. International Normalization Ratio 1.3(H) 0.9 - 1.1 [facility] Blood specimen (specimen) 12/13/2012 10:00 PM EDT 12/13/2012 10:04 PM EDT Narrative Resulting Agency Comment Spec In Lab Luis E Trotter MD HEMATOLOGY ORDERABLE S Performing Organization Address [facility] Co de Phone Number [facility] * (ABNORMAL) Hepatic Function Panel (12/13/2012 10:00 [...] MD CHEMISTRY ORDERABLES [facility] * (ABNORMAL) Phosphorus (12/13/2012 10:00 PM EDT) Phosphorus 1.4(Critic al) 2.5 - 4.5 mg/dL [facility] Comment: Result rechecked. Called by: lani, Read back by: gianna bowens, Date/Time:12/13/12 23:00. Blood specimen (specimen) 12/13/2012 10:00 PM EDT 12/13/2012 10:04 PM EDT Narrative Resulting Agency Comment Spec In Lab Luis E Trotter MD CHEMISTRY ORDERABLES [facility] * (ABNORMAL) Magnesium (12/13/2012 10:00 PM [...] Until Sun12/27/12 at 2036, For Procedural use. [place] on area for one second. May repeat [...] dose on Sun12/13/12 at 2130, Until Discontinued, [place] teeth, Routine 0944 (Given - Provider: Alicia [...] oral this sharifa.)2030 (Given - Provider: Alicia Rodriugez RN) 0900 (Given - Provider: Erika Tracy [...] Indication for (Active or Suspected): for Bacteremia/Sepsis 1852 (Given - Provider: Alicia Rodriguez RN) 1817 [...] RN)1706 (See Alternative - Provider: Erika Tracy RN)6 (See Alternative - Provider: Alicia Rodriguez RN) [...] Routine documented in this encounter Care Teams Rn Behavioral Health Relationship Specialty Start Date End Date Bakari Costello APRN JOSE [address] [place] [id number] PCP - General 12/13/12 01/12/13 documented as of this encounter
--- OUTSIDE RECORDS SUMMARY | 2024-04-04 12:29 | XMS_ITS | Continuity of Care Document ---
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 [id number] 95 Anum Henriquez OBGyn Episode No OBEpisode recorded.
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
--- OUTSIDE RECORDS SUMMARY | 2024-04-04 12:29 | XMS_ITS | Continuity of Care Document ---
Author Organization [place] [facility], [facility] Address [address] [place] [address] Assessment No assessment recorded. Plan of Treatment Reminders Order Date Submit Date Provider Last Modified By Organization Details Last Modified Time Details Appointments Nurse Visit 10 2023 08:50A M [place] Nursing Staff Not available Not available Not available Lab venipunct ure 2023 024 [email or web address] [facility] (Registration ), [address] [place] [address] Dr, [place], [address], 02/05/2024 08:27:46 Referral None recorded. Procedures None recorded. Surgeries None recorded. Imaging None recorded. Medication Orders None recorded. Patient TargetsNo targets recorded. Patient Instructions Encounter Date Encounter Id Patient Instructions Last Modified By Organization Details Last Modified Time 02/04/2024 [id number] specimen collection & handling* [email or web address] Not available 02/04/2024 09:49:48 Reason for Referral Home Organizer Referral fo r Acute tonsillitis Recurrent purulent d/c from left tonsil. Hx of tonsil stones, please assess Referring Physician: Arielle Back, Family Medicine, Encounter Date: 07/18/2023 Devops Architect Referral for Chalazion of right upper eyelid Referring Physician: Keerthi Thomas Family Medicine, Encounter Date: 02/22/2024 Results Created Date Observation Date Name Description Value Unit Range Abnormal Flag Note LastModifiedBy Organization Detail LastModifiedTime 02/04/2002/04/2024 speci men colle ction & handl ing* Specimen collection and handling performed today: Yes Not Available [facility] [address] [facility] [address], [place], [address], 02/04/2024 07:59:13 02/01/20 24 02/01/2024 MAMMO , percy haque, bilat eral HISTOR Y: Elizabeth pham is 63 years old and is being seen for screen ing. The patien t has no person al histor y of cancer . The patien t has no family histor y of breast cancer . FILMS COMPAR ED: The presen t examin ation has been compar ed to prior imagin g studie s perfor med at [facility] on 2021 and [...] MONALISA FERRARA M.D. on 2023 15:10: [address], [place], [address], 02/05/2024 08:28:22 02/25/20 24 07/25/2022 MAMMO , tomos ynthe sis, bilat eral No observ ation record ed. [email or web address] Not Available 02/24 06:48:52 02/25/20 24 07/20/2021 MAMMO , tomos ynthe sis, bilat eral No observ ation record ed. [email or web address] Not Available 02/24 06:48:58 02/25/2003/14/2019 MAMMO , tomos ynthe sis, bilat eral No observ ation record ed. [email or web address] Not Available 02/24 06:49:00 02/25/20 24 04/09/2020 MAMMO , tomos ynthe sis, bilat eral No observ ation record ed. [email or web address] Not Available 02/24 06:49:01 02/25/20 24 04/02/2023 XR, chest No observ ation record ed. [email or web address] Not Available 02/24 06:49:06 02/25/20 24 03/04/2019 XR, hand No observ ation record ed. [email or web address] Not Available 02/24 06:49:10 02/25/20 24 12/31/2020 XR, hand No observ ation record ed. [email or web address] Not Available 02/24 06:49:11 02/25/20 24 02/09/2021 imagi ng/di agnos tic resul t No observ ation record ed. [email or web address] Not Available 02/24 06:49:25 02/25/20 24 02/25/2021 imagi ng/di agnos tic resul t No observ ation record ed. [email or web address] Not Available 02/24 06:49:27 02/25/20 24 07/02/2020 imagi ng/di agnos tic resul t No observ ation record ed. [email or web address] Not Available 02/24 06:49:28 02/25/20 24 03/14/2023 imagi ng/di agnos tic resul t No observ ation record ed. [email or web address] Not Available 02/24 06:49:31 02/25/20 24 03/14/2023 imagi ng/di agnos tic resul t No observ ation record ed. [email or web address] Not Available 02/24 06:49:32 02/25/20 24 05/14/2019 imagi ng/di agnos tic resul t No observ ation record ed. [email or web address] Not Available 02/24 06:49:36 02/25/20 24 11/26/2019 imagi ng/di agnos tic resul t No observ ation record ed. [email or web address] Not Available 02/24 06:49:38 Result Notes None recorded. 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 Will check thyroid levels and a CBC Problem Code: E05.00; Problem Code Type: ICD-10; REBECCA VEE MD [address], [place], [address] , [facility] 12:08:36 Psychoph ysiologi c insomnia 515224935 Active 201202/25/20 20 - Comments only - Rebecca Vee MD - Can continue as needed zolpidem Problem Code: F51.04; Problem Code Type: ICD-10; Not Available [facility] 3 04:02:47 Low back pain 368220449 Active 2014 Problem Code: M54.5; Problem Code Type: ICD-10; Not Available [facility] 3 04:02:47 Palpitat ions 73335622 Active 201401/12/20 18 - Comments only - Rebecca Vee MD - Sound like benign PACs or PVCs. Minimall y symptoma tic. No testing needed. Problem Code: R00.2; Problem Code Type: ICD-10; Not Available [facility] 3 04:02:47 Presbycu sis 32981122 Active 2014 Problem Code: H91.13; Problem Code Type: ICD-10; Not Available [facility] 3 04:02:47 Thrombot ic microang iopathy 505083555 Completed 201410/15/2023 02/20/20 19 - Comments only - Rebecca Vee MD - We will continue to follow her renal function long-ter m because of this history. Problem Code: M31.1; Problem Code Type: ICD-10; MD [address], [place], [address] , [facility] 4 12:08:24 Thromboe mbolism of vein 679968327 Completed 201410/15/2023 Problem Code: I82.90; Problem Code Type: ICD-10; MD [address], [place], [address] , [facility] 4 12:08:31 Cardiomy opathy 20329848 Completed 201410/15/2023 02/25/20 20 - Comments only - Rebecca Vee MD - This had resolved but we do surveill ance every few years. She will get an echo at the start of the new year. There is nothing else to suggest that HF is the cause of her fatigue. Problem Code: I42.9; Problem Code Type: ICD-10; MD [address], [place], [address] , [facility] 4 12:07:55 Adult health examinat ion Active 201403/13/20 22 - Comments only - Rebecca Vee MD - Pap sent. She can only another month before getting her boosters . Problem Code: Z00.00; Problem Code Type: ICD-10; Not Available [facility] 3 04:02:48 Dysuria 51762747 Completed 201506/15/2015 Problem Code: R30.0; Problem Code Type: ICD-10; Not Available [facility] 3 04:02:48 Urinary tract infectio us disease 55387058 Completed 201506/28/2015 Problem Code: N39.0; Problem Code Type: ICD-10; Not Available [facility] 3 04:02:48 Cervical radiculo nafisa 05685519 Active 201602/20/20 19 - Comments only - [...] M54.12; Problem Code Type: ICD-10; Not Available [facility] 3 04:02:48 Inflamed seborrhe ic keratosi s 715027569 Completed 201610/02/2017 04/05/20 17 - Comments only - DESHAUN Leal-C - Irritate d seborrhe ic keratosi s. Treated with cryother apy standard fashion 3 freeze thaw cycles. Recheck if this does not fall off. Sooner if needed. Problem Code: L82.0; Problem Code Type: ICD-10; Not Available [facility] 3 04:02:48 Abdomina l colic 6506168 Completed 201703/14/2023 Problem Code: R10.83; Problem Code Type: ICD-10; Not Available [facility] 4 05:35:48 Idiopath ic osteoart hritis 958707853 Active 2018 Problem Code: M18.11; Problem Code Type: ICD-10; Not Available [facility] 3 04:02:48 Lesion of right ulnar nerve 54727101198 9103 Active 2018 Problem Code: G56.21; Problem Code Type: ICD-10; Not Available [facility] 3 04:02:49 Acute frontal sinusiti s 24587979 Completed 201804/23/2019 04/02/20 19 - Comments only - Rebecca Vee MD - Because of the duration I am going to treat her with high-dos e amoxicil [place] for 1 week. Continue efforts at drainage . Problem Code: J01.10; Problem Code Type: ICD-10; Not Available [facility] 3 04:02:49 Chest pain 12110594 Completed 201806/28/201920 19 - Comments only - Rebecca Vee [...] R07.89; Problem Code Type: ICD-10; Not Available [facility] 3 04:02:49 Trochant sal bursitis of left hip 09470038405 9103 Completed 202010/15/2023 02/10/20 21 - Comments only - Rebecca Vee MD - Suggeste d she try taking 1 Aleve every evening Problem Code: M70.62; Problem Code Type: ICD-10; REBECCA VEE MD [address], [place], [address] , [facility] 4 12:08:39 Pre-surg ciaran evaluati on [...] Z01.818; Problem Code Type: ICD-10; Not Available [facility] 3 04:02:49 Bradycar dheeraj 48704700 Active 202002/10/20 21 - Comments only - [...] R00.1; Problem Code Type: ICD-10; Not Available [facility] 3 04:02:49 Adult health examinat ion Completed 202005/03/2021 Problem Code: Z00.00; Problem Code Type: ICD-10; Not Available [facility] 3 04:02:50 Acute conjunct ivitis 88146380 Completed 202110/15/2023 Problem Code: H10.30; Problem Code Type: ICD-10; MD [address], [facility] [address] , [facility] 4 12:07:47 Squamous cell carcinom a of skin 775469412 Completed 202110/15/2023 Problem Code: C44.92; Problem Code Type: ICD-10; MD [address], [facility] [address] , [facility] 4 12:08:20 COVID-19 168183825 Completed 202110/15/2023 03/13/20 22 - Comments only - Rebecca Vee MD - Reason: It was mild Problem Code: U07.1; Problem Code Type: ICD-10; MD [address], [place], [address] , [facility] 4 12:07:59 Peritons illar abscess 65173055 Completed 202102/23/2022 02/10/20 22 - Comments only - Rebecca Vee MD - History and her age but she is pretty symptoma tic in the adenitis is impressi ve. He we will treat with amoxicil [place] and gargles. Problem Code: J36; Problem Code Type: ICD-10; Not Available [facility] 3 04:02:50 Pain in throat 012083441 Completed 202103/14/2023 Problem Code: R07.0; Problem Code Type: ICD-10; Not Available [facility] 4 05:35:47 Nausea 553803563 Completed 202211/24/2022 Problem Code: R11.0; Problem Code Type: ICD-10; Not Available [facility] 3 04:02:51 Noninfec tious gastroen teritis 61538084 Completed 202212/08/2022 11/24/19 23 - Comments only - Rebecca Vee MD - Bloody diarrhea suggest acute infectio us colitis. No antibiot ic exposure Lead I am checking for C. difficil e [...] of the colitis symptoms . Not Available [facility] 3 04:02:51 Adjustme nt disorder 07262537 Completed 201405/13/2015 Problem Code: F43.20; Problem Code Type: ICD-10; Not Available [facility] 3 04:02:54 Chronic kidney disease 985045811 Completed 201412/07/2015 Problem Code: N18.9; Problem Code Type: ICD-10; Not Available [facility] 3 04:02:54 Chest pain 23232834 Completed 201405/13/2015 Problem Code: R07.9; Problem Code Type: ICD-10; Not Available [facility] 3 04:02:54 Graves' disease 353383546 Completed 201203/07/2023 Not Available [facility] 3 04:02:54 Fracture at wrist and/or hand level 417922545 Completed 201205/13/2015 Not Available [facility] 3 04:02:55 Hemorrho ids 63550438 Completed 201205/13/2015 Not Available [facility] 3 04:02:55 Pleuriti c pain 6864826 Completed 201902/23/2020 Problem Code: R07.81; Problem Code Type: ICD-10; Not Available [facility] 3 04:02:55 Acute sinusiti s 01439600 Completed 201405/19/2015 Problem Code: J01.90; Problem Code Type: ICD-10; Not Available [facility] 3 04:02:55 Constipa tion 02407890 Completed 201201/11/2018 Not Available [facility] 3 04:02:56 Tear film insuffic iency 92841227 Completed 201405/13/2015 Problem Code: H04.129; Problem Code Type: ICD-10; Not Available [facility] 3 04:02:56 Pruritus ani 02828937 Completed 201205/13/2015 Problem Code: 698.0; Problem Code Type: ICD-9; Not Available [facility] 3 04:02:56 Sinusiti s 94570232 Completed 201205/13/2015 Not Available [facility] 3 04:02:56 Tinnitus 17379516 Completed 201403/07/2023 Problem Code: H93.19; Problem Code Type: ICD-10; Not Available [facility] 3 04:02:57 Basal cell carcinom a of skin 676399812 Completed 202103/07/2023 10/13/19 22 - Comments only [...] C44.91; Problem Code Type: ICD-10; Not Available [facility] 3 04:02:57 Hyperthy roidism 81117451 Completed 201205/13/2015 Not Available [facility] 3 04:02:57 Shoulder joint pain 583607526 Completed 201405/13/2015 Problem Code: M25.519; Problem Code Type: ICD-10; Not Available [facility] 3 04:02:58 Motion sickness 18058986 Completed 201405/13/2015 Problem Code: T75.3; Problem Code Type: ICD-10; Not Available [facility] 3 04:02:58 Family history of Arthriti s 162784219 Completed 201205/13/2015 Problem Code: V17.7; Problem Code Type: ICD-9; Not Available [facility] 3 04:02:58 Insomnia 370141916 Completed 201203/07/2023 Not Available [facility] 3 04:02:58 Hyperlip idemia 21577728 Completed 201205/13/2015 Problem Code: 272.4; Problem Code Type: ICD-9; Not Available [facility] 3 04:02:58 Heart failure 71984414 Completed 201403/07/2023 Problem Code: I50.9; Problem Code Type: ICD-10; Not Available [facility] 3 04:03:00 Closed fracture of distal end of radius 75645385 Completed 201205/13/2015 Problem Code: 813.42; Problem Code Type: ICD-9; Not Available [facility] 3 04:03:00 Asthma 756900705 Completed 200605/13/2015 Problem Code: 493.90; Problem Code Type: ICD-9; Not Available [facility] 3 04:03:00 Hypoxia 212988337 Completed 201405/13/2015 Problem Code: R09.01; Problem Code Type: ICD-10; Not Available [facility] 3 04:03:00 Chronic salpingi tis 34892060 Completed 201405/13/2015 Problem Code: N70.11; Problem Code Type: ICD-10; Not Available [facility] 3 04:03:00 Accident caused by needle Completed 201405/13/2015 Not Available [facility] 3 04:03:01 Acute pharyngi tis 622340979 Completed 202204/10/2023 Problem Code: J02.9; Problem Code Type: ICD-10; Not Available [facility] 4 05:35:44 Pneumoni a 574921257 Completed 202204/10/2023 04/02/20 23 - Comments only - Arielle Back ANIMAL TECH - Diagnose d by [facility], Anum continue s to feel lousy despite day 7 of Augmenti n. Will check chest xray and proceed accordin gly. Recommen d finish all abx, push fluids and take it easy. RTC INI or feelng worse Problem Code: J18.9; Problem Code Type: ICD-10; Not Available [facility] 4 05:35:45 Acute tonsilli tis 74323988 Completed 202310/15/[address], [place], [address] , [facility] 4 12:07:40 Pain in right foot 50746182139 9107 Active [address], [place], [address] , [facility] 4 12:26:32 Adjustme nt disorder with anxious mood 57443253 Active [address], [place], [address] , [facility] 4 16:08:15 Diarrhea 70097681 Active [address], [place], [address] , [facility] 4 10:36:18 Presepta l cellulit is 226887813 Active [address], [place], [address] , [facility] 4 07:57:58 Menopaus al symptom 27418084 Active [address], [facility] [address] [place] [address] 4 11:52:09 Chalazio n of right upper eyelid 24222637134 9109 Active [address], [facility] [address] , [facility] 4 15:57:16 Bilatera l pinguecu la of eyes 26056564627 9106 Active [address], [facility] [address] [place] [address] 4 15:57:22 Problem Notes None recorded. Medical Equipment None Reported. Allergies Allergen ID Allergen Name Allergen Category Reaction Reaction Severity Criticality Documentation Date Start Date Code Code System Note Provider Name and Address Organization Details Recorded Time 32032 doxycycli ne monohydra te medicatio n vomiting moderate Not available 04/20/20232016 19245 2 RxNorm GI Issue s (N/V) Aller gyRea ction : 'GI Issue s (N/V) '; Not Available [facility] 3 16:22:22 22305 erythromy ibeth medicatio n vomiting moderate Not available 04/20/20232012 4053 RxNorm GI Issue s (N/V) Aller gyRea ction : 'GI Issue s (N/V) '; Aller gyCod e: '3680 75785 64'; Aller gyNam e: 'ERYT HROMY IBETH'; Aller gyCon ceptT ype: 'NDC' ; Not Available [facility] 3 16:22:22 Medications Name Sig [...] Status Never Smoker FAB CHAUDHARY LPN null, [place] [facility]. 04/02/2024 08:44:54 Would You Say That, In [...] had a brother who at 44 from CAD/[place]. Medical History No medical history recorded. Gynecological HistoryNo gynecological history recorded. Obstetrics History GPAL:G 0 P 0 0 0 0 Immunizations Vaccine Type Date Status Provider Name and Address Organization Details Recorded Time Tdap 10/03/2019 completed Not Available [facility] 05:19:55 Tdap 03/10/2009 completed Not Available [facility] 05:19:55 zoster live 05/10/2015 completed Not Available [facility] 04/20/2023 05:19:56 Influenza, split virus, quadrivalent, PF 03/13/2022 completed Not Available [facility] 04/20/2023 05:19:56 Influenza, split virus, quadrivalent, PF 03/17/2020 completed Not Available [facility] 04/20/2023 05:19:56 Influenza, split virus, quadrivalent, PF 03/24/2021 completed Not Available [facility] 04/20/2023 05:19:56 zoster recombinant 11/20/2017 completed Not Available [facility] 04/20/2023 05:19:57 zoster recombinant 03/29/2018 completed Not Available [facility] 04/20/2023 05:19:57 COVID-19, mRNA, LNP-S, PF, 100 mcg/0.5mL dose or 50 mcg/0.25mL dose 07/05/2020 completed Not Available [facility] 04/20/2023 05:19:58 COVID-19, mRNA, LNP-S, PF, 100 mcg/0.5mL dose or 50 mcg/0.25mL dose 04/11/2021 completed Not Available [facility] 04/20/2023 05:19:58 COVID-19, mRNA, LNP-S, PF, 100 mcg/0.5mL dose or 50 mcg/0.25mL dose 06/08/2020 completed Not Available [facility] 04/20/2023 05:19:58 SARS-COV-2 (COVID-19) vaccine, UNSPECIFIED 04/21/2022 completed Not Available [facility] 04/20/2023 05:19:59 Hep B, unspecified formulation 09/07/2009 completed Not Available [facility] 04/20/2023 05:19:59 Hep B, unspecified formulation 03/10/2009 completed Not Available [facility] 04/20/2023 05:20:00 Hep B, unspecified formulation 04/12/2009 completed Not Available [facility] 04/20/2023 05:20:00 Hep A, adult 10/03/2019 completed Not Available [facility] 04/20/2023 05:20:00 influenza, unspecified formulation 03/09/2014 completed Not Available [facility] 04/20/2023 05:20:00 influenza, unspecified formulation 03/24/2019 completed Not Available [facility] 04/20/2023 05:20:00 influenza, unspecified formulation 03/28/2017 completed Not Available [facility] 04/20/2023 05:20:00 influenza, unspecified formulation 04/19/2018 completed Not Available [facility] 04/20/2023 05:20:00 influenza, unspecified formulation 05/02/2016 completed Not Available [facility] 04/20/2023 05:20:00 Pneumococcal conjugate PCV20, polysaccharide [id number] conjugate, adjuvant, PF 04/02/2024 completed FAB CHAUDHARY LPN null, [facility]. 04/02/2024 09:16:14 COVID-19, mRNA, LNP-S, PF, rosi-sucrose, 30 mcg/0.3 mL 04/02/2024 cancelled REBECCA VEE MD [facility] [address], [place], [address], [facility] 04/02/2024 18:37:59 Influenza, high-dose, quadrivalent, PF 04/23/2023 completed Not Available [facility] 06/22/2023 05:31:13 influenza, unspecified formulation 04/02/2024 completed FAB CHAUDHARY LPN null, [facility] 04/02/2024 09:13:20 Past Encounters Encounter ID Performer Location Encounter Start Date Encounter Closed Date Diagnosis/Indication Diagnosis SNOMED-CT Code Diagnosis ICD10 Code [id number] [address] [address] 02/04/2024 07:54:37 02/04/2024 09:56:21 Menopausal symptom [id number] N95.1 Health Concerns Section Related Observation LastModified by Organization Detai ls LastModified Time None Recorded Concern Status LastModified by Organization Details LastModified Time None Recorded Payers Encounter Date Sequence Insurance Name Policy Number Policy Roman Covered Member ID Roman Member ID Guarantor Name 02/04/2024 1 [id number]IC[place]/ [place]ANTAGE - PPO) [id number] Anum Henriquez [id number] Anum Henriquez OBGytacos Episode No OBEpisode recorded.
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
[2024-04-04 19:25] LABS: HCT 40.2 % (36.0-46.0); MCH 29.7 pg (27.0-33.0); MCHC 32.3 % (32.0-36.0); MCV 92 fL (80-95); Platelet Count 191 10^3/uL (130-400); RBC 4.37 10^6/uL (3.93-5.22); RDW 12.5 % (11.7-14.6); RDW-SD 42.8 fL; WBC 4.44 10^3/uL (4.4-10.8)
[2024-04-04 20:21] LABS: ALT 33 U/L (14-59); Anion Gap 4.3 mmol/L (3-11); BUN 15 mg/dL (7-18); CO2 29.7 mmol/L (21.0-32.0); CREATININE 1.1 mg/dL (0.55-1.02); Calcium 9.5 mg/dL (8.5-10.1); Calculated LDL 55 mg/dL (<100); Chloride 106 mmol/L (98-107); Cholesterol 141 mg/dL (<200); Estimated GFR 55.42 (mL/min/1.73m2); Glucose 92 mg/dL (74-106); HDL Cholesterol 74 mg/dL (40-60); Potassium 4.9 mmol/L (3.5-5.1); Sodium 140 mmol/L (136-145); Triglyceride 62 mg/dL (<150); Vitamin B12 399 pg/mL (193-986)
[2024-04-04 20:36] LABS: Vitamin D 25 Total 109.6 ng/mL (30-100)
[2024-04-04 20:58] LABS: Creatine Kinase 177 U/L (26-192)
== END 2024-04-04 12:22 | disposition home or self-care (01) ==
LOC: NCHCN 12:21
PROVIDERS: PCP Internal Medicine; Visit Provider Internal Medicine
DX: R53.83 Other fatigue (principal)
CPT/HCPCS: 80048; 80061; 82306; 82550; 85027; 82607; 84460

== ENCOUNTER 2025-04-07 13:17 | Outpatient (REF) | payer MEDICARE, SELFPAY ==
[2025-04-07 20:20] LABS: HCT 42.6 % (36.0-46.0); HGB 13.9 g/dL (11.2-15.7); MCH 29.6 pg (27.0-33.0); MCHC 32.6 % (32.0-36.0); MCV 91 fL (80-95); MPV 11.1 fL (8.0-11.0); Platelet Count 234 10^3/uL (130-400); RBC 4.70 10^6/uL (3.93-5.22); RDW 12.2 % (11.7-14.6); RDW-SD 40.7 fL; WBC 5.79 10^3/uL (4.4-10.8)
[2025-04-07 20:46] LABS: ALT 31 U/L (14-59); AST 26 U/L (15-37); Albumin 3.9 g/dL (3.4-5.0); Alkaline Phosphatase 74 U/L (46-116); Anion Gap 6.5 mmol/L (3-11); BUN 15 mg/dL (7-18); Bilirubin, Total 0.4 mg/dL (0.2-1.0); CO2 27.5 mmol/L (21.0-32.0); Calcium 9.5 mg/dL (8.5-10.1); Calculated LDL 62 mg/dL (<100); Chloride 103 mmol/L (98-107); Cholesterol 167 mg/dL (<200); Estimated GFR 55.07 (mL/min/1.73m2); Glucose 90 mg/dL (74-106); HDL Cholesterol 74 mg/dL (>or=50); Potassium 4.4 mmol/L (3.5-5.1); Sodium 137 mmol/L (136-145); TSH (W/Ref FT4) 1.55 uIU/mL (0.36-3.74); Total Protein 8.2 g/dL (6.4-8.2); Triglyceride 156 mg/dL (<150)
[2025-04-08 18:11] LABS: Hepatitis C Ab w Rflx HCV PCR Negative (Negative)
[2025-04-13 13:14] LABS: 1,25-Dihydroxyvitamin D 38 pg/mL (18-78)
== END 2025-04-07 13:18 | disposition home or self-care (01) ==
LOC: NCHCN 13:17
PROVIDERS: PCP Internal Medicine; Visit Provider Physician Assistant
DX: Z11.59 Encounter for screening for other viral diseases (principal); E78.5 Hyperlipidemia, unspecified; E05.00 Thyrotoxicosis with diffuse goiter without thyrotoxic crisis or storm; M85.80 Other specified disorders of bone density and structure, unspecified site
CPT/HCPCS: 80053; 80061; 85027; 86803; 82652; 84443